=== PATIENT | male | born 1955 | race Caucasian/White ===

== ENCOUNTER → 2018-01-05 16:08 | Outpatient (CLI) | payer MEDICARE, MEDICAID, SELFPAY ==
--- NOTE | 2018-01-05 09:30 | MASS_PTH ---
PATIENT: REY MEAD LOC: [facility] U#:[id number] AGE/SX: 69/M ROOM: RE01/05/[address]: Dr. Andrey Wade MD : 1955 BED: DIS: SPEC #: [id number] RECD: 01/05/18 15:48 STATUS: SANDEEP RAFAELA #: [id number] MELVA: 01/05/18 09:[address]: Andrey Wade DEPT: SURGICAL PATHOLOGY RECD BY: García Chase ENTERED: 01/06/18 11:24 SP TYPE: Mass OTHR DR: Dr. Miguel Black DO Tissues: Soft palate Procedures: Special Stain Group I Surgery Specimen Level IV GMS Stain (control) HEADER OPERATION: Soft palate biopsy PRE-OP DIAGNOSIS: Soft palate mass TISSUE SUBMITTED: Soft palate mass, permanent path MICROSCOPIC DIAGNOSIS Soft palate mass, biopsy: Fragments of inflamed squamous papilloma with superficial bacterial colonization. Special stain for fungi is positive for organisms in the superficial epithelial layers (yeast and pseudohyphae) consistent with eusebio species; matched control is appropriate. SHAINA:ko 01/07/18 MICROSCOPIC DESCRIPTION Slides are reviewed. GROSS DESCRIPTION Received in fixative is one container labeled with the patient's name and designated soft palate biopsy. The specimen consists of multiple irregular fragments of light stein soft tissue that in aggregate measure 1 x 0.5 x 0.3 cm. The specimen is totally submitted in one cassette. / Khai 01/06/18 TC:1 CPT: 48649, 79018
== END ==
PROVIDERS: Family Provider Preventive Medicine Occupational Medicine; PCP Preventive Medicine Occupational Medicine; Referring Provider Otolaryngology; Visit Provider Otolaryngology
DX: K13.70 Unspecified lesions of oral mucosa (principal)
CPT/HCPCS: 88305; 88312

== ENCOUNTER → 2018-07-18 06:55 | Outpatient (CLI) | payer MEDICARE, MEDICAID, SELFPAY ==
[2018-07-18 07:51] LABS: Erythrocyte Sedimentation Rate 8 mm/hr (0-20)
[2018-07-18 13:56] LABS: PSA,Total - Annual Screen 0.28 ng/mL (0.00-4.00)
== END ==
PROVIDERS: Family Provider Preventive Medicine Occupational Medicine; PCP Preventive Medicine Occupational Medicine; Referring Provider Internal Medicine Pulmonary Disease; Visit Provider Internal Medicine Pulmonary Disease
DX: Z12.5 Encounter for screening for malignant neoplasm of prostate (principal); J44.9 Chronic obstructive pulmonary disease, unspecified
CPT/HCPCS: 36415; 84153; 85652; 86480; 87015; 87116; 87206; 87385; G0103

== ENCOUNTER → 2019-07-24 07:13 | Outpatient (CLI) | payer MEDICARE, SELFPAY ==
--- NOTE | 2019-07-31 09:00 | PET_ITS ---
EXAMINATION: FDG PET CT INDICATIONS: A 64-year-old male with history of pulmonary nodularity. COMPARISON EXAMINATION: CT of the chest report dated 07/06/19. INDEX LESION SIZE SUV INTERPRETATION Right lower anterior lung, linear 1.2 Quantitative criteria for viable neoplasm are not fulfilled, sequential radiologic investigation recommended TECHNIQUE: Following the intravenous administration of 16.43 mCi of F-18 deoxyglucose via the left antecubital fossa, multiplanar image acquisitions of the neck, chest, abdomen and pelvis to level of mid thigh, obtained at one hour post radiopharmaceutical administration contemporaneously interpreted with the current CT of the neck, chest, abdomen and pelvis to level of mid thigh, dated 07/31/[address] of the chest report dated 07/06/19 reveal: SERUM GLUCOSE LEVEL: 146 mg/dl. HEIGHT: 71 inches. WEIGHT: 218 lbs. FINDINGS: 1. Mild increased glucose metabolism is defined in the right lower anterior lung-right middle lobe, linear in presentation, generating a calculated maximum standard uptake value of 1.2. 2. Normal physiologic distribution of the radiopharmaceutical is apparent in the hepatic (2.6) and splenic parenchyma, both renal units, bladder and visualized intestinal tract. There is uniform distribution of the radiopharmaceutical concentration defined in the visualized cerebellar hemispheres and cerebral cortical structures. Diffuse intestinal tract activity is noted throughout all four quadrants of the abdominal-pelvic retroperitoneum and mesentery consistent with normal physiologic distribution of the radiopharmaceutical. Pertinent CT findings are as follows. CHEST: Emphysematous changes are noted in the bilateral upper lung zones. Additional parenchymal densities defined in the bilateral hemithorax reveal no evidence of quantitatively significant-discernible increased FDG distribution. There is evidence of prior median sternotomy. Atherosclerotic calcification is defined in the thoracic aorta without evidence of dilatation, aneurysm formation. Coronary arterial calcification is observed. Bilateral axillary, calcified and noncalcified mediastinal soft tissue densities are ametabolic. ABDOMEN AND PELVIS: Atherosclerotic calcification is defined in the abdominal aorta demonstrating a maximal axial diameter of 36.5 mm. Atherosclerotic calcification is noted in the abdominal-pelvic arterial vasculature. The maximal axial diameter of the left common iliac artery is 25.4 mm. There is fatty metamorphosis demonstrated in the hepatic parenchyma. Dystrophic calcification is manifest within the prostate gland. Fat-containing left inguinal hernia is noted. Right and left inguinal soft tissue densities are non-glucose avid. SKELETAL: Degenerative changes defined in the cervical, thoracic and lumbar spine demonstrate no evidence of glucose hypermetabolism. PET/PET/CT Tumor Base -Thigh Init IMPRESSION: 1. NEGATIVE EXAMINATION. There is no definitive quantitative scintigraphic evidence of viable neoplasm. 2. Subtle increased radiopharmaceutical concentration observed in the right lower anterior lung-right middle lobe does not fulfill quantitative criteria for viable neoplasm. 3. Metabolic and/or anatomic stability may be ensured in the right hemithorax pulmonary parenchymal abnormality with repeat FDG PET study and/or CT of the thorax in three-six months. (Xiu, Journal of Nuclear Medicine 45:88, P2004. Jenna, Seminars in Thoracic and Cardiovascular Surgery 14:292, 2002). Electronic Signature Gacría Moise D.O. Electronically Signed: García Moise DO at 8:42 EDT Tel , Service support ,
== END ==
PROVIDERS: PCP Preventive Medicine Occupational Medicine; Referring Provider Internal Medicine Pulmonary Disease; Visit Provider Internal Medicine Pulmonary Disease
DX: R91.1 Solitary pulmonary nodule (principal)
CPT/HCPCS: 78815; A9552

== ENCOUNTER → 2022-12-18 | Outpatient (CLI) | payer MEDICARE, MEDICAID, SELFPAY ==
--- NOTE | 2022-12-18 07:39 | CT_ITS ---
ACR Level 3 findings have been noted. An addendum which confirms receipt of the report will follow. INDICATION: Malignant neoplasm of bronchus , RIGHT PARTIAL LOBECTOMY EXAMINATION: CT CHEST WITHOUT CONTRAST - CT Chest W/O Contrast Injection TECHNIQUE: Helically acquired images were obtained of the chest. A radiation dose optimization technique was used for this scan. IV Contrast dosage and agent: None. COMPARISON: PET/CT 07/31/2019 FINDINGS: LUNGS, PLEURA AND LARGE AIRWAYS: Stable changes from partial right upper lobectomy. Interval development of 2.3 cm soft tissue mass upper lingula. 4 mm subpleural nodule posterior lingula. Stable fibrotic changes in the right middle lobe posteriorly. Patchy infiltrate superior segment right lower lobe laterally. Stable fibrotic changes left apex and left lower lobe posteriorly. No pleural effusions. THYROID: No thyroid lesions. HEART AND PERICARDIUM: Heart size is normal. No pericardial effusion. Coronary artery calcifications with changes from prior cardiac surgery. VESSELS: 3.8 cm ectasia ascending aorta. MEDIASTINUM AND DAVID: No mediastinal or hilar adenopathy. Esophagus is unremarkable. No hiatal hernia. UPPER ABDOMEN: No acute pathology. BONES: No suspicious lytic or blastic abnormality. CT/Chest without Contrast IMPRESSION: Interval development of 2.3 cm soft tissue mass in the lingula, highly suspicious for metastatic disease. 4 mm subpleural nodule in the posterior lingula also suspicious for metastasis. Patchy infiltrate in the right lower lobe laterally, infection versus lymphangitic carcinomatosis. The lingular mass is sufficient size for evaluation by PET CT or histologic sampling. Electronically Signed: Rolly Stephenson MD at 23:02 EDT ,
== END | disposition home or self-care (01) ==
PROVIDERS: PCP Preventive Medicine Occupational Medicine; Referring Provider Internal Medicine Pulmonary Disease; Visit Provider Internal Medicine Pulmonary Disease
DX: C34.90 Malignant neoplasm of unspecified part of unspecified bronchus or lung (principal)
CPT/HCPCS: 71250

== ENCOUNTER 2023-01-13 12:08 | Day surgery (SDC) | payer MEDICARE, MEDICAID, SELFPAY ==
[2023-01-13] VITALS (9 sets, daily range): BP systolic 105–154; BP diastolic 66–86; PULSE 70–94; RESP 18–20; TEMP 36.1–36.8; O2SAT 88–97; BMI 30.4
[2023-01-13] MEDS: Lactated Ringers 1,000 ML 15 ML IV (13:03)
[2023-01-13 13:29] LABS: Bedside Glucose 133 mg/dL (74-106)
[2023-01-13] MEDS: Phenylephrine 0.25% 15 ML NASAL.SRY 15 SPRAY NASAL (14:45)
[2023-01-13] MEDS: Lidocaine Jelly 2% 20 ML Syringe (URO-JET) 1 APPLIC (14:45)
[2023-01-13] MEDS: Lidocaine 2% (5ml sdv) 5 ML VIAL.MPF (15:00)
--- NOTE | 2023-01-13 15:22 | OP.BRONCH_ITS ---
Patient Name: John Farrell Procedure Date: 01/13/2023 1:59 PM Date of : 1955 Age: 67 Procedure: Bronchoscopy Indications: Left upper lobe nodule Providers: Miguel Hurd MD Complications: No immediate complications Procedure: Pre-Anesthesia Assessment: - A History and Physical has been performed. The patient's medications, allergies and sensitivities have been reviewed. After I obtained informed consent, the scope was passed under direct vision. Throughout the procedure, the patient's blood pressure, pulse, and oxygen saturations were monitored continuously. The bronchoscope was introduced through the right nostril and advanced to the tracheobronchial tree. The patient tolerated the procedure well. The procedure was accomplished without difficulty. Moderate Sedation: An independent trained observer was present and continuously monitored the patient. Findings: Transbronchial biopsies of a nodule were performed in the apical-posterior segment of the left upper lobe using forceps and sent for cell count, bacterial culture, viral smears & culture, and fungal & AFB analysis and cytology, AFB analysis & culture and fungal analysis. The procedure was guided by fluoroscopy. Transbronchial biopsy technique was selected because the sampling site was not visible endoscopically. Six biopsy passes were performed. Six biopsy samples were obtained. Fluoroscopy guided transbronchial brushings of a nodule were obtained in the apical-posterior segment of the left upper lobe with a cytology brush and sent for cell count, bacterial culture, viral smears & culture, and fungal & AFB analysis and cytology. One sample was obtained. Transbronchial brushing technique was selected because the sampling site was not visible endoscopically. The bronchoscope was advanced until wedged at the desired location for bronchoalveolar lavage. BAL was performed in the FRANCK apical posterior segments (B1 & B2) of the lung and sent for cell count, bacterial culture, viral smears & culture, and fungal & AFB analysis and cytology. 100 mL of fluid were instilled. 20 mL were returned. The return was bloody. There were no mucoid plugs in the return fluid. Impression: - Left upper lobe nodule - Transbronchial lung biopsies were performed. - Transbronchial brushings were obtained. - Bronchoalveolar lavage was performed. Recommendation: - Await test results. MD Miguel Melendez MD 01/13/2023 3:21:59 PM This report has been signed electronically. Number of Addenda: 0 Note Initiated On: 01/13/2023 1:59 PM
--- NOTE | 2023-01-13 15:27 | RAD_ITS ---
STUDY: X-RAY CHEST REASON FOR EXAM: Male, 67 years old. POST-BRONCHOSCOPY TECHNIQUE: Single AP portable view of the chest. COMPARISON: None. FINDINGS: EKG electrodes are seen. Prior right upper lobectomy. Increased markings in the right upper lobe. 2 cm nodule in the medial aspect of the left upper lobe. No evidence of pneumothorax. Sternal cerclage wires and vascular clips are present from a prior sternotomy and coronary artery bypass graft procedure (CABG). Normal mediastinum and dale. Normal visualized pulmonary arteries. There is atherosclerotic calcification of the aortic arch with tortuosity. Normal visualized thoracic spine. Deformity of the right fifth rib in keeping with prior surgery. There is no demonstrated abnormality of the visualized soft tissue structures of the upper abdomen. RAD/Chest 1 View (Portable) IMPRESSION: No evidence of pneumothorax. 2 cm nodule in the medial right upper lobe. Electronically Signed: Rao Thompson MD at 15:41 EDT ,
[2023-01-13 15:56] LABS: Cytology, Body Fluid / CSF SEE PATHOLOGY REPORT
[2023-01-13 17:42] LABS: Appearance/Body Fluid CLOUDY; Color/Body Fluid PINK; Red Cell Count/Body Fluid 1525 /mm3; Source- Body Fluid BRONCHIAL LAVAGE
[2023-01-13 17:43] LABS: Body Fluid QC Type(s) BF2Q; White Blood Count/Body Fluid 446 /mm3
--- NOTE | 2023-01-13 17:59 | SUR.PHASEII ---
1655: patients o2 at 3lnc was 95%, at 2l it was 93%, at 1L it was 90%, on room air it was 88%. reapplied o2 at 3l while paging Dr Hurd and speaking to Dr Lakhani.
[2023-01-13 20:15] LABS: Lymphocytes 3 %; Neutrophil (Segs) 64 %
[2023-01-13 20:17] LABS: Other Cell Type/BF 33 %
--- NOTE | 2023-01-14 | FLU_PTH ---
PATIENT: REY MEAD LOC: EN U#:[id number] AGE/SX: 67/M ROOM: RE01/13/[address]: Dr. Miguel Hurd MD : 1955 BED: DIS: 01/13/2023 SPEC #: [id number] RECD: 01/14/23 12:51 STATUS: SANDEEP RAFAELA #: [id number] MELVA: 01/14/23 00:[address]: Miguel Hurd V DEPT: CYTOLOGY RECD BY: Parris Banuelos ENTERED: 01/14/23 12:53 SP TYPE: Fluid OTHR DR: Dr. Miguel Black DO Tissues: A - Bronchus of left upper lobe B - Bronchus of left upper lobe C - Bronchus of left upper lobe Procedures: Special Stain Group II Special Stain Group I Surgery Specimen Level IV AFB Stain (control) GMS Stain (control) Cytospin Fluid Cytology Other HEADER OPERATION: Bronchoscopy (MAC) PRE-OP DIAGNOSIS: Solitary pulmonary nodule, COPD, malignant neoplasm of bronchus TISSUE SUBMITTED: A - Left upper lobe bronchioalveolar lavage fluid, B - Left upper lobe brush, C - Left upper lobe brush x3 slides DIAGNOSIS CYTOLOGY A. Bronchioalveolar lavage, left upper lobe (cytospin and cell block): Negative for malignant cells. Negative for acid-fast bacilli and fungal organisms. See comment. B. Left upper lobe of lung, brushings (cytospin and cell block): Negative for malignant cells. C. Left upper lobe brushings (smears): Negative for malignant cells. AM:ko 01/15/2023 COMMENT A. AFB and GMS stains with matched controls were used in the evaluation of this case. Please see corresponding surgical case ([id number]). CYTOLOGY STUDY Slides are reviewed. CYTOLOGY GROSS A - Received is 20 ml of red cloudy fluid labeled with the patient's name and and designated per the requisition as FRANCK BAL. Submitted for cytology preparation including cell block. B - Received is a metallic endoscopic cytobrush with adherent minute fragments of stein-red tissue brush in 2 ml of clear red fluid and labeled with the patient's name and and designated per the requisition as brush tip. The material is dislodged from the brush and submitted for cytology preparation including cell block. C - Received are three smears labeled with the patient's name and designated per the requisition as FRANCK brush. Submitted for staining. / ko 01/14/2023 TC:5 CPT: 31423 x2, 27423 x2 ,28803x7,18073
--- NOTE | 2023-01-14 | LUNG_PTH ---
PATIENT: REY MEAD LOC: [facility] U#:[id number] AGE/SX: 67/M ROOM: RE01/13/[address]: Dr. Miguel Hurd MD : 1955 BED: DIS: 01/13/2023 SPEC #: [id number] RECD: 01/14/23 12:50 STATUS: SANDEEP RAFAELA #: [id number] MELVA: 01/14/23 00:[address]: Miguel Hurd V DEPT: SURGICAL PATHOLOGY RECD BY: Parris Banuelos ENTERED: 01/14/23 12:51 SP TYPE: LUNG BX OTHR DR: Dr. Miguel Black DO Tissues: Lung, NOS Procedures: Elastin Stain (control) Trichrome (control) Special Stain Group II Surgery Specimen Level IV Iron Stain (control) HEADER OPERATION: Bronchoscopy (MAC) PRE-OP DIAGNOSIS: Solitary pulmonary nodule, COPD, malignant neoplasm of bronchus TISSUE SUBMITTED: Left upper lobe of lung MICROSCOPIC DIAGNOSIS Left upper lobe of lung, transbronchial biopsy: Minimal chronic inflammation. No evidence of malignancy. See comment. AM:ko 01/15/2023 COMMENT Please see corresponding cytology case [id number]). Trichrome, elastin and iron stains with matched controls were used in the evaluation of this case and show no evidence of fibrosis, vasculitis or intraparenchymal deposition of iron. Case has been reviewed in consultation with Dr. Maxwell who concurs with the above diagnosis. IDC:SJ MICROSCOPIC DESCRIPTION Slides are reviewed. GROSS DESCRIPTION Received in fixative is one container labeled with the patient's name and designated left upper lobe biopsy. The specimen consists of multiple irregular fragments of light to dark stein soft tissue that in aggregate measure 1.2 x 0.3 x <0.1 cm. The specimen is totally submitted in one cassette. / AM:ko 01/14/2023 TC:3 CPT: 57306, 66853 x3
[2023-01-14 13:57] LABS: Pathologist Comment/Body Fluid Reviewed
== END 2023-01-13 18:13 | disposition home or self-care (01) ==
LOC: EN 12:11 → AC 12:12
PROVIDERS: PCP Preventive Medicine Occupational Medicine; Referring Provider Preventive Medicine Occupational Medicine; Visit Provider Internal Medicine Pulmonary Disease
PROC: 0BJ08ZZ Inspection of Tracheobronchial Tree, Via Natural or Artificial Opening Endoscopic (ICD-10-PCS; CPT 31622; principal; 2023-01-13 13:15)
DX: R91.1 Solitary pulmonary nodule (principal); J44.9 Chronic obstructive pulmonary disease, unspecified; E11.9 Type 2 diabetes mellitus without complications; G47.33 Obstructive sleep apnea (adult) (pediatric); F41.9 Anxiety disorder, unspecified; F32.A Depression, unspecified; E78.00 Pure hypercholesterolemia, unspecified; I10 Essential (primary) hypertension; Z99.81 Dependence on supplemental oxygen; Z86.718 Personal history of other venous thrombosis and embolism; Z87.891 Personal history of nicotine dependence; Z79.899 Other long term (current) drug therapy; Z79.84 Long term (current) use of oral hypoglycemic drugs; Z79.82 Long term (current) use of aspirin
CPT/HCPCS: 31628; 32408; 31624; 71045; 76000; 82962; 87015; 87077; 87101; 87116; 87206; 88108; 88161; 88305; 88312; 88313; 89050; J7120; J2405

== ENCOUNTER → 2023-02-09 | Outpatient (CLI) | payer MEDICARE, MEDICAID, SELFPAY ==
--- NOTE | 2023-02-09 11:30 | PET_ITS ---
EXAMINATION: FDG PET/CT ? INDICATIONS: 67-year-old male with a history of pulmonary nodularity. ? COMPARISON EXAMINATION: FDG-PET CT study dated 07/31/2019. ? INDEX LESION SIZE SUV INTERPRETATION NEW Left upper lung field, left upper lobe 34.7 mm 6.1 Fulfills quantitative criteria for viable neoplasm, histopathologic analysis recommended ? NON-INDEX LESION ? ? ? Left lower lung field, left lower lobe ? 1.4 max Quantitative criteria for viable neoplasm are not fulfilled ? TECHNIQUE: Following the intravenous administration of 14.37 mCi of F-18 deoxyglucose via the right antecubital fossa, multiplanar image acquisitions of the head, neck, chest, abdomen and pelvis to the level of the midthigh, obtained at one-hour post radiopharmaceutical administration contemporaneously interpreted with the current CT of the chest, abdomen and pelvis dated 02/09/2023 and prior FDG-PET CT study dated 07/31/2019 via coregistration reveal: ? '' SERUM GLUCOSE LEVEL:? 199 mg/dL? HEIGHT:?? 69 inches WEIGHT:?? 217 pounds ? FINDINGS: ? HEAD/NECK:? There is no evidence of abnormal increased glucose metabolism in the pharyngeal mucosal space, parapharyngeal space, oropharynx, bilateral-lateral and anterior neck, hypopharynx and distribution of the larynx. ? The visualized portion of the cerebral cortical-subcortical structures demonstrate symmetric and preserved glucose metabolism. ? CHEST:? Facilitated FDG concentration is noted in the posteromedial aspect of the left upper lobe, generating a calculated standard uptake value of 6.1. The maximum axial diameter of the corresponding parenchymal density is 34.7 mm. Facilitated uptake is noted in the left mid posterior lung zone with a calculated standard uptake value of 1.4.? ? CT of the chest demonstrates the following anatomic characteristics: There is evidence of prior median sternotomy. Atherosclerotic calcification is defined in the thoracic aorta without evidence of dilatation, aneurysm formation. Coronary arterial calcification is observed. Right-left subcentimeter bilateral axillary soft tissue densities are ametabolic. Post-surgical change is defined in the region of the right thoracic perihilum. Emphysematous changes are defined in the upper lung haque bilaterally. ? ABDOMEN/PELVIS:? Normal physiologic distribution of the radiopharmaceutical is identified in the hepatic (4.5) and splenic parenchyma, both renal units, urinary bladder, and visualized intestinal tract. ? CT of the abdomen and pelvis is remarkable for the following: Atherosclerotic calcification is defined in the abdominal aorta without evidence of dilatation, aneurysm formation. Pelvic arterial calcification is observed. The maximum axial diameter of the left common iliac artery is 29.3 mm. A fat-containing left inguinal hernia is noted. Right and left inguinal soft tissue densities are ametabolic. ? SKELETAL: There is no evidence of quantitatively significant enhanced glucose metabolism on meticulous inspection of the appendicular and axial skeletal structures. ? Degenerative changes defined in the thoracic and lumbar spine demonstrate no evidence of increased glucose metabolism. There are no sclerotic, mixed sclerotic-lytic, or primarily lytic changes defined in the axial skeletal structures with evidence of increased FDG uptake. ? PET/PET/CT Tumor Base -Thigh Init IMPRESSION: 1. The increase in radiopharmaceutical concentration defined in the left mid lung field, posterior aspect of the left upper lobe, fulfills quantitative criteria for malignant transformation. (Syed et al, Journal of Nuclear Medicine, 32:1, 1991). 2. Increased labelled glucose uptake noted in the left lower lung field posteriorly does not fulfill quantitative criteria for viable neoplasm. 3. Anatomic stability may be ensured with repeat CT of the left lower hemithorax pulmonary parenchyma in 3-6 months if clinically indicated. (Jenna, Seminars in Thoracic and Cardiovascular surgery, 14:292, 2002). ? Electronically Signed: García Moise DO at 23:31 EST ,
== END | disposition home or self-care (01) ==
LOC: ONC 09:34
PROVIDERS: PCP Preventive Medicine Occupational Medicine; Referring Provider Internal Medicine Pulmonary Disease; Visit Provider Internal Medicine Pulmonary Disease
DX: R91.1 Solitary pulmonary nodule (principal)
CPT/HCPCS: 78815; A9552

== ENCOUNTER → 2023-10-13 | Outpatient (CLI) | payer MEDICARE, SELFPAY ==
[2023-10-13 09:22] LABS: ALB/GLOB Ratio 0.8 RATIO (0.9-2.4); AST(SGOT) 13 U/L (15-37); Alanine Aminotransfer ALT/SGPT 29 U/L (16-61); Albumin, Serum 3.7 g/dL (3.2-5.0); Alkaline Phosphatase 121 U/L (45-117); Anion Gap 8 (5-15); BUN 15 mg/dL (7-18); BUN/Creat Ratio 11.1 RATIO (10-20); Calcium,Total 9.7 mg/dL (8.5-10.1); Chloride 98 mmol/L (98-107); Cholesterol 120 mg/dL (200); Creatinine, Serum 1.35 mg/dL (0.70-1.30); EST Glomerular Filtration Rate 56 mL/min (>60); Est Glom Filt Rate - Afr Amer 68 mL/min (>60); Globulin 4.5 g/dL (2.2-4.2); Glucose 188 mg/dL (74-106); High Density Lipoprotein 44 mg/dL; Potassium 4.1 mmol/L (3.5-5.1); Protein, Total 8.2 g/dL (6.4-8.2); Sodium Level 133 mmol/L (136-145); Thyroid Stim Hormone (TSH) 1.19 uIU/mL (0.358-3.74); Triglycerides 184 mg/dL; Very Low Density Lipoprotein 37 mg/dL (5-40)
[2023-10-13 09:24] LABS: Creatinine, Urine (random) < 13.00 mg/dL (NO RANGE EST.); Microalbumin,Random Urine < 5.0 mg/L (NO RANGE EST.)
[2023-10-13 10:06] LABS: Vitamin D,25 Hydroxy 55.8 ng/mL
[2023-10-13 10:12] LABS: Hemoglobin A1c 6.6 % (3.8-5.6)
== END | disposition home or self-care (01) ==
PROVIDERS: PCP Preventive Medicine Occupational Medicine; Referring Provider Internal Medicine Endocrinology, Diabetes & Metabolism; Visit Provider Internal Medicine Endocrinology, Diabetes & Metabolism
DX: E11.65 Type 2 diabetes mellitus with hyperglycemia (principal); C34.11 Malignant neoplasm of upper lobe, right bronchus or lung; E11.42 Type 2 diabetes mellitus with diabetic polyneuropathy; E27.8 Other specified disorders of adrenal gland; E55.9 Vitamin D deficiency, unspecified
CPT/HCPCS: 36415; 80053; 80061; 82043; 82306; 82570; 83036; 84443

== ENCOUNTER → 2024-04-06 | Outpatient (CLI) | payer MEDICARE, SELFPAY ==
--- NOTE | 2024-04-06 06:51 | ECHOD_ITS ---
Reason For Study: CORONARY ARTERY DISEASE Procedure This was a 2D Doppler, Color Flow transthoracic echocardiogram. The study was technically difficult. Contrast injection was performed. Exam performed in department. Left Ventricle Normal LV size. Mild concentric left ventricular hypertrophy. Left ventricular systolic function is normal. The left ventricular ejection fraction is 60 %. Stage 1 diastolic dysfunction. No regional wall motion abnormalities noted. Right Ventricle Normal RV size. Normal systolic function. Atria Normal left atrium. Normal right atrium. Mitral Valve There is moderate mitral annular calcification. Mild (1+) eccentric mitral valve insufficiency. Tricuspid Valve Normal tricuspid valve. Aortic Valve Trisinus/trileaflet aortic valve. Pulmonic Valve Normal pulmonic valve. Great Vessels Normal aortic root. Pericardium/Pleural No pericardial effusion. Medication 22 gauge I.V. with prn adaptor inserted into left arm. Diluted definity 2.5ml given slow IV push to enhance endocardial definition. MMode/2D Measurements & Calculations LVIDd: 4.8 cm IVSd: 1.3 cm LVOT diam: 2.2 cm LVIDs: 3.2 cm LVPWd: 1.3 cm RVDd: 4.1 cm FS: 32.7 % LVOT area: 3.9 cm2 asc Aorta Diam: 3.4 cm LAV(MOD-bp): 30.0 ml LVAd ap4: 34.8 cm2 LAV(MOD-bp) Indexed: 14.0 ml/m2 LVLd ap4: 8.0 cm LAV(MOD-sp2): 23.5 ml EDV(MOD-sp4): 123.5 ml LAV(MOD-sp4): 34.7 ml EDV(sp4-el): 128.2 ml LVAs ap4: 21.6 cm2 LVLs ap4: 6.9 cm ESV(MOD-sp4): 55.2 ml ESV(sp4-el): 57.1 ml EF(MOD-sp4): 55.3 % EF(sp4-el): 55.5 % LVAd ap2: 36.8 cm2 SV(MOD-sp4): 68.2 ml SV(MOD-sp2): 71.3 ml LVLd ap2: 8.6 cm SI(MOD-sp4): 31.9 ml/m2 SI(MOD-sp2): 33.3 ml/m2 EDV(MOD-sp2): 125.7 ml EDV(sp2-el): 133.1 ml LVAs ap2: 20.9 cm2 LVLs ap2: 7.1 cm ESV(MOD-sp2): 54.4 ml ESV(sp2-el): 52.2 ml EF(MOD-sp2): 56.7 % SV(sp4-el): 71.1 ml Ao sinus diam: 3.[address] Junction: 2.8 cm LA dimension(2D): 3.8 cm LA A4 area: 13.3 cm2 RA A4 area: 11.8 cm2 TAPSE: 1.6 cm Time Measurements MV dec time: 0.19 sec Doppler Measurements & Calculations MV E max daniel: 89.8 cm/sec Lat Peak E' Daniel: 7.3 cm/sec Med Peak E' Daniel: 7.4 cm/sec MV A max daniel: 136.8 cm/sec E/E' lat: 12.3 E/E' med: 12.1 MV E/A: 0.66 MV V2 max: 148.8 cm/sec MV dec slope: 462.1 cm/sec2 Ao V2 max: 150.2 cm/sec MV max P.9 mmHg Ao max P.0 mmHg MV V2 mean: 101.6 cm/sec Ao V2 mean: 95.6 cm/sec MV mean P.4 mmHg Ao mean P.1 mmHg MV V2 VTI: 37.7 cm Ao V2 VTI: 28.1 cm MVA(VTI): 2.5 cm2 AV (velocity ratio): 0.87 LIZZ(I,D): 3.4 cm2 LIZZ(V,D): 3.2 cm2 LV V1 max: 122.6 cm/sec SV(LVOT): 94.7 ml PA V2 max: 104.3 cm/sec LV V1 max P.0 mmHg LV V1 mean P.2 mmHg LV V1 mean: 84.7 cm/sec LV V1 VTI: 24.4 cm ECHO/Echo Complete W/ Contrast Interpretation Summary Normal LV size. Left ventricular systolic function is normal. The left ventricular ejection fraction is 60 %. There is moderate mitral annular calcification. Mild (1+) eccentric mitral valve insufficiency. Mild concentric left ventricular hypertrophy. Stage 1 diastolic dysfunction. Ordering Physician: Peter Mohan Referring Physician: Peter Mohan MD Performed By: Denise Miller, CS
--- NOTE | 2024-04-06 17:21 | STRESSREP ---
Stress Test Report Pharmacologic myocardial perfusion stress test. 68-year-old male with a history of chest pain Resting EKG demonstrates sinus rhythm with a rate of 77 bpm. Resting blood pressure is 130/72 mmHg. 0.4 mg of regadenoson was infused per usual protocol followed by rapid intravenous saline flush injection. Continuous EKG monitoring was performed. The maximum heart rate was 93 bpm which was 60% of max impacted heart rate the maximum workload was 1 metabolic equivalent. At rest there were no ST or T wave changes noted to suggest ischemia and at peak infusion nonspecific ST changes were noted which did not meet the criteria for ischemia. No clinical angina is noted. The final blood pressure was 118/72 mmHg. Myocardial perfusion protocol. 15 mCi of technetium 99m sestamibi was injected at rest. 0.4 mg of regadenoson was infused per usual protocol. At peak infusion 45 mCi of technetium 99m sestamibi was injected stress images were obtained stress and rest images were reconstructed and compared in the short axis vertical long and horizontal long axis. Gated images were also obtained. Perfusion SPECT analysis: Review of the stress images demonstrate normal uptake of tracer noted in all areas of the myocardium. The resting images similar demonstrated normal uptake of tracer noted in all areas of the myocardium. No areas of reversibility are noted to suggest ischemia and no previous infarct is noted. Gated SPECT analysis: The gated ejection fraction is 59%. Conclusion: Normal pharmacologic myocardial perfusion stress test. Preserved ejection fraction.
== END | disposition home or self-care (01) ==
LOC: CVS 06:51
PROVIDERS: PCP Internal Medicine; Referring Provider Internal Medicine Cardiovascular Disease; Visit Provider Internal Medicine Cardiovascular Disease
DX: I25.10 Atherosclerotic heart disease of native coronary artery without angina pectoris (principal)
CPT/HCPCS: 78452; 93017; 93306; A9500; Q9957; A4216; C8929; J2785

== ENCOUNTER 2024-05-09 07:17 | Emergency (ER) | payer MEDICARE, MEDICAID, SELFPAY ==
[2024-05-09 07:18] VITALS: BP 148/72; PULSE 84; RESP 14; TEMP 36.8; O2SAT 99; BMI 31.8
--- NOTE | 2024-05-09 07:42 | CT_ITS ---
PROCEDURE: CTA CHST, ABD, PEL W AND/OR WO REASON FOR EXAM: Chest pain and back pain for 1 month. COPD. Prior lobectomy. TECHNIQUE: CTA imaging of the chest, abdomen and pelvis without and with intravenous contrast. 3D reconstructions. IV CONTRAST: 100 cc of Isovue 370. COMPARISON: None. FINDINGS: Heart: Prior CABG. Coronary artery calcification. Pulmonary Vessels: No large central filling defects. Contrast timing was optimized for evaluation of the aorta. Arch Vessels: Unremarkable. Thoracic Aorta: Atherosclerotic plaques. No aneurysm or dissection. Abdominal Aorta: There is evidence of aneurysmal dilatation of the distal abdominal aorta with the calcification and mural thrombus. This measures 3.2 cm in transverse dimension. Aneurysmal dilatation of the right common iliac artery measuring 2.6 cm. Mural thrombus is seen. Mesenteric Arteries: Normal. Renal Arteries: Normal. Iliac Arteries: Iliac arteries are normal in size with no significant plaque or stenosis. Other Findings: Surgical clips are seen in the right hilar regions. Prior right upper lobectomy. Consolidation in the posterior aspect of the left upper lobe abutting the left major fissure. The previously seen 2 cm nodule is not seen at this time most likely due to the consolidation. Mild increased markings at the left lung base. Fatty infiltration of the liver. There is a 1.7 cm x 2.5 cm nodular density in the left adrenal gland. This is not a typical adenoma. A metastatic disease should be ruled out. There are multilevel degenerative changes at the spine. Line distended urinary bladder. Prostatic enlargement with central calcification. Umbilical hernia containing fat. CT/CTA Chst, Abd, Pel W and/or WO IMPRESSION: No evidence of dissection. Infrarenal abdominal aortic aneurysm with a transverse dimension of 3.2 cm with mural thrombus. Dense consolidation in the left upper lobe as described. Underlying mass can n ot be excluded. Left adrenal mass.[id number] One or more dose reduction techniques were used (e.g., Automated exposure contr ol, adjustment of the mA and/or kV according to patient size, use of iterative reconstruction technique). Reading Location: [id number]
--- NOTE | 2024-05-09 07:42 | EKG12_ITS ---
Test Reason : CHEST PAIN X 1 MONTH Blood Pressure : */* mmHG Vent. Rate : 80 BPM Atrial Rate : 80 BPM P-R Int : 202 ms QRS Dur : 116 ms QT Int : 398 ms P-R-T Axes : 1 86 34 degrees QTcB Int : 459 ms Normal sinus rhythm Normal ECG Confirmed by Titus Loera ([id number]), editor at large ARIA CERVANTES ([id number]) on 05/10/2024 8:20:43 AM Referred By: Confirmed By: Titus Loera
--- NOTE | 2024-05-09 07:43 | EX.ED.DYSGE1 ---
HPI History of Present Illness Chief Complaint: Chest Pain Narrative Narrative: 69-year-old male past medical history of lung carcinoma, underwent radiation therapy, coronary artery disease, COPD, presents with chest and abdominal pain that has had for over a month. He relates history that he recently had an ultrasound of his heart and a stress test that were negative. This was performed by his help desk associate/cardiology provider 3 weeks ago. He states that sometimes he has sharp pain other times he has dull pain. It is on his left side causing him lack of sleep. Sometimes it is worse when he lays on his left side. He denies any fevers or chills, no cough, no nausea or vomiting. Last normal bowel movement was this morning and today. He states that there is pain in the left side of his abdomen and that he was told that he needs to go see a partition assembly machine operator as well. However, he has not scheduled an appointment. He has pain in the epigastrium of his abdomen and it radiates upwards sometimes. [facility] Medical History Vitamin D deficiency Left adrenal mass CAD (coronary artery disease) Blind Cancer Depression Anxiety Diabetes History of renal disease Prostate disease DVT (deep venous thrombosis) High cholesterol Easy bruising Umbilical hernia Neuropathy Injury of head and neck Syncope Former smoker On home oxygen therapy CPAP (continuous positive airway pressure) dependence COPD (chronic obstructive pulmonary disease) Shortness of breath on exertion History of edema Hypertension Hx of fracture of foot Hx of fracture of leg Home Medications ?Medication ?Instructions ?Recorded ?Last Taken ?Type albuterol sulfate 2.5 mg/3 mL 2.5 mg inhalation DAILY 01/08/23 01/13/23 History (0.083 %) solution for nebulization albuterol sulfate 90 mcg/actuation 2 puff inhalation PRN PRN 01/08/23 Unknown History aerosol inhaler shortness of breath or wheezing aspirin 81 mg tablet,delayed 81 mg PO DAILY 01/08/23 12/30/22 History release atorvastatin 20 mg tablet 20 mg PO QHS 01/08/23 Unknown History dapagliflozin propanediol 5 mg 5 mg PO DAILY 01/08/23 Unknown History tablet (Farxiga) fluticasone fur. 100 mcg-umeclid 1 inh inhalation DAILY 01/08/23 01/13/23 History 62.5 mcg-vilant 25 mcg inhalat.powder (Trelegy Ellipta) furosemide 40 mg tablet 40 mg PO DAILY 01/08/23 Unknown History paroxetine HCl 10 mg tablet 10 mg PO DAILY 01/08/23 Unknown History pregabalin 150 mg capsule 150 mg PO .QID 01/08/23 01/13/23 History roflumilast 250 mcg tablet 250 mcg PO DAILY 01/08/23 01/13/23 History semaglutide 14 mg tablet (Rybelsus) 14 mg PO DAILY 01/08/23 Unknown History tamsulosin 0.4 mg capsule 0.4 mg PO BID 01/08/23 01/13/23 History lorazepam 1 mg tablet 1 mg PO TID 03/22/24 Unknown History metformin 500 mg tablet,extended 1,500 mg PO QHS 03/22/24 Unknown History release 24hr (osmotic) metoprolol tartrate 50 mg tablet 50 mg PO BID 03/22/24 Unknown History Allergy/AdvReac Type Severity Reaction Status Date / Time No Known Allergies Allergy Verified 05/09/24 07:17 Family History Mother Cancer Heart disease Father Cancer Sister Cancer Heart disease Surgical History Hx of biopsy History of lobectomy of lung Hx of oral surgery History of open heart surgery (05/08/15) Social History Smoking Status: Former smoker alcohol intake: current alcohol intake frequency: a few times a month Alcohol type: beer substance use type: does not use ROS ROS ED ROS Narrative Constitutional: No fever, no chills. HEENT: No sore throat. No neck pain. No loss of vision. No rhinorrhea. Cardiovascular: Left-sided chest pain. No palpitations. No pedal edema. Respiratory: No cough, no shortness of breath. Abdominal: Epigastric to left-sided abdominal pain. No nausea. No vomiting. No problems with bowel movements. Genitourinary: No dysuria. No hematuria. Musculoskeletal: No myalgias. No arthralgias. Neurologic: No headaches. No dizziness. No lightheadedness. Skin: No rash. No change in color. Psychiatric: No depression. No anxiety. EXAM Physical Exam Const Vital Signs: 05/09/24 07:18 05/09/24 07:38 05/09/24 09:17 Temperature 98.2 F Temperature Source Temporal Pulse Rate 84 78 Respiratory Rate 14 18 Respiratory Effort Normal Blood Pressure 148/72 H 134/72 H Blood Pressure Mean 97 92 Pulse Ox 99 98 Oxygen Delivery Method Room Air Room Air 05/09/24 09:51 Temperature 98.7 F Temperature Source Pulse Rate 64 Respiratory Rate 18 Respiratory Effort Blood Pressure 132/78 H Blood Pressure Mean 96 Pulse Ox 99 Oxygen Delivery Method MDM MDM MDM Narrative Medical decision making narrative: Differential diagnosis includes but not limited to aortic dissection versus nonspecific chest pain versus pneumonia versus pneumothorax. He may have a pancreatitis versus diverticulitis given his left-sided abdominal pain. However, history and physical does not support this. Comprehensive workup was pursued. I will obtain a CTA of the chest abdomen and pelvis to rule out any acute pathology. I have low suspicion for ACS as he has had the same pain for a month and has had a outpatient cardiac workup. I do not feel he needs a troponin. EKG was obtained and interpreted by myself independently as normal sinus rhythm at 80 bpm without ectopy or acute ST changes. No STEMI. I reviewed his outpatient echocardiogram, and he has an EF of 60%. Hence, I doubt CHF. I reviewed his laboratory work and he has normal white count of 8.7 with hemoglobin stable 11.4, hematocrit 35.9, platelet count normal at 177. CMP is grossly unremarkable except for AST low at 5. Lipase low at 41 so I doubt pancreatitis. I reviewed the CTA report from the radiologist and there is no evidence of an aortic dissection. He does have an infrarenal AAA that measures 3.2 cm with mural thrombus he was also noted to have a iliac artery aneurysm with mural thrombus. He will be referred to vascular surgery after discussion with Dr. Cuellar. Upon repeat examination, he is resting comfortably, but complains of epigastric pain. He was told that he was informed by his primary care provider that he should follow-up with gastroenterology. I will refer him to Dr. Gallagher with gastroenterology here. Additionally, he was referred to Dr. Culelar with vascular surgery regarding his AAA. He can also follow-up with his help desk associate, but once again he has been having pain for the last month and recently had a outpatient workup with cardiology 3 weeks ago. He will be given a GI cocktail. At this point in time, I feel he be discharged to follow-up. I discussed the patient with the INSULATION BOARD HEAD SAW OPERATOR for vascular who will also follow-up with him as an outpatient. Return instructions to the emergency department were reviewed. Disposition is discharged home in stable condition. History & Record Review Discussion w/independent historian: Patient Additional record(s) reviewed:: Prior outpatient record and Prior labs Lab Data Attestation: I reviewed the patient's lab results. Labs: Laboratory Results - last 24 hr 05/09/24 07:45 WBC 8.7 RBC 4.05 L Hgb 11.4 L Hct 35.9 L MCV 88.6 MCH 28.1 MCHC 31.8 L RDW Std Deviation 53.7 H RDW Coeff of Jaquan 16.6 H Plt Count 177 MPV 9.1 Immature Gran % (Auto) 1.100 H Neut % (Auto) 75.4 H Lymph % (Auto) 14.3 L Knott % (Auto) 7.6 Eos % (Auto) 1.1 Baso % (Auto) 0.5 Absolute Neuts (auto) 6.6 Absolute Lymphs (auto) 1.25 Nucleated RBC % 0 Sodium 136 Potassium 4.0 Chloride 104 Carbon Dioxide 27.0 Anion Gap 5 BUN 16 Creatinine 1.09 Estim Creat Clear Calc 74.77 Est GFR (MDRD) Af Amer 87 Est GFR (MDRD) Non-Af 72 BUN/Creatinine Ratio 14.7 Glucose 158 H Calcium 9.1 Total Bilirubin 0.20 AST 5 L ALT 16 Alkaline Phosphatase 90 Total Protein 7.7 Albumin 3.0 L Globulin 4.7 H Albumin/Globulin Ratio 0.6 L Lipase 41 L Radiography Diagnostic Testing: Clinical Impression(s) from Imaging Studies Chest/Abdomen/Pelvis CTA 05/09/24 07:42 IMPRESSION: No evidence of dissection. Infrarenal abdominal aortic aneurysm with a transverse dimension of 3.2 cm with mural thrombus. Dense consolidation in the left upper lobe as described. Underlying mass can not be excluded. Left adrenal mass.[id number] One or more dose reduction techniques were used (e.g., Automated exposure control, adjustment of the mA and/or kV according to patient size, use of iterative reconstruction technique). Reading Location: [facility] Management Discussion w/another healthcare provider: Federal Appellate Clerk (Vascular surgery) Discharge Plan Triage Chief Complaint: Chest Pain ED Provider: Aden Stahl Dx/Rx/DC Orders Clinical Impression: Abdominal pain, AAA (abdominal aortic aneurysm), Iliac artery aneurysm Instructions: ED Abdominal Pain Unkn Cause Fem, ED Pain, Acute, Uncertain Cause Prescriptions: No Action furosemide 40 mg tablet 40 mg PO DAILY paroxetine HCl 10 mg tablet 10 mg PO DAILY pregabalin 150 mg capsule 150 mg PO .QID roflumilast 250 mcg tablet 250 mcg PO DAILY Rybelsus 14 mg tablet 14 mg PO DAILY tamsulosin 0.4 mg capsule 0.4 mg PO BID Patient Comments: TAKE 2 CAPSULES BY MOUTH EVERY DAY WITH A MEAL albuterol sulfate 2.5 mg /3 mL (0.083 %) solution for nebulization 2.5 mg inhalation DAILY albuterol sulfate 90 mcg/actuation HFA aerosol inhaler 2 puff INHALATION PRN PRN (Reason: shortness of breath or wheezing) aspirin 81 mg tablet,delayed release (DR/EC) 81 mg PO DAILY atorvastatin 20 mg tablet 20 mg PO QHS Farxiga 5 mg tablet 5 mg PO DAILY Trelegy Ellipta 100-62.5-25 mcg blister with device 1 inh INHALATION DAILY metformin 500 mg tablet extended release 24hr 1,500 mg PO QHS Patient Comments: TAKE 2 tabs in the AM and One tab in PM Rx Instructions: TAKE 2 tabs in the AM and One tab in PM metoprolol tartrate 50 mg tablet 50 mg PO BID lorazepam 1 mg tablet 1 mg PO TID Primary Care Provider: Desiree Saleh Referrals: Desiree Saleh MD [Primary Care Provider] - Naresh Cuellar MD [Med Staff - Active Staff] - As soon as possible FriendWild DO [Med Staff - Active Staff] - As soon as possible Activity Restrictions/Additional Instructions: Follow-up with gastroenterology and vascular surgery. You need to follow-up with your primary care provider as well regarding your month-long pain. Return with new or worsening symptoms. Print Language: Gabonese Disposition Disposition: Home, Self Care Discharge Date/Time: 05/09/24 10:23
[2024-05-09 07:55] LABS: Absolute Lymphocyte Count 1.25 X10^3/uL (0.83-4.51); Absolute Neutrophil Count 6.6 X10^3/uL (2.0-7.7); Basophil# 0.04 X10^3/uL; Basophil% 0.5 % (0-1); Eosinophils% 1.1 % (0-5); Hematocrit 35.9 % (40-54); Hemoglobin 11.4 g/dL (13.0-16.5); Lymphocyte # 1.25 X10^3/ul (0.83-4.51); Lymphocyte % 14.3 % (19-41); Mean Corp Hgb Conc 31.8 g/dL (32-36); Mean Corpuscular Hgb 28.1 pg (27.0-32.0); Mean Corpuscular Volume 88.6 fL (80-94); Mean Platelet Vol. 9.1 fl (6.2-12.0); Monocyte# 0.66 X10^3/uL; Monocyte% 7.6 % (0-10); NRBC Flagged by Analyzer 0 % (0-5); Neutrophil # 6.58 X10^3/uL (2.7-7.7); Neutrophil % 75.4 % (47-70); Platelet Count 177 K/mm3 (150-450); RBC Distribution Width CV 16.6 % (11.6-14.6); RBC Distribution Width SD 53.7 fl (35.1-43.9); Red Blood Count 4.05 M/mm3 (4.6-6.2); White Blood Count 8.7 K/mm3 (4.4-11.0)
[2024-05-09 08:19] LABS: ALB/GLOB Ratio 0.6 RATIO (0.9-2.4); AST(SGOT) 5 U/L (15-37); Alanine Aminotransfer ALT/SGPT 16 U/L (16-61); Alkaline Phosphatase 90 U/L (45-117); Anion Gap 5 (5-15); BUN 16 mg/dL (7-18); BUN/Creat Ratio 14.7 RATIO (10-20); Calcium,Total 9.1 mg/dL (8.5-10.1); Chloride 104 mmol/L (98-107); Creatinine, Serum 1.09 mg/dL (0.70-1.30); EST Glomerular Filtration Rate 72 mL/min (>60); Est Glom Filt Rate - Afr Amer 87 mL/min (>60); Estimated Creatinine Clearance 74.77 ml/min; Globulin 4.7 g/dL (2.2-4.2); Glucose 158 mg/dL (74-106); Lipase 41 U/L (73-393); Protein, Total 7.7 g/dL (6.4-8.2); Sodium Level 136 mmol/L (136-145)
[2024-05-09 09:17] VITALS: BP 134/72; PULSE 78; RESP 18; O2SAT 98
[2024-05-09] MEDS: Mag Hydrox/Al Hydrox/Simeth 30 ML UDC PO (09:40)
[2024-05-09] MEDS: Lidocaine 2% Viscous15 ML UDC 15 ML PO (09:40)
[2024-05-09 09:51] VITALS: BP 132/78; PULSE 64; RESP 18; TEMP 37.1; O2SAT 99
== END 2024-05-09 10:23 | disposition home or self-care (01) ==
PROVIDERS: Emergency Provider Emergency Medicine; PCP Internal Medicine; Visit Provider Emergency Medicine
DX: I71.43 Infrarenal abdominal aortic aneurysm, without rupture (principal); J44.9 Chronic obstructive pulmonary disease, unspecified; E11.9 Type 2 diabetes mellitus without complications; I72.3 Aneurysm of iliac artery; R10.9 Unspecified abdominal pain; I25.10 Atherosclerotic heart disease of native coronary artery without angina pectoris; Z86.718 Personal history of other venous thrombosis and embolism; Z87.891 Personal history of nicotine dependence
CPT/HCPCS: 71275; 74174; 80053; 83690; 85025; 93005; 99284; Q9967; A4216

== ENCOUNTER → 2024-05-12 | Outpatient (CLI) | payer MEDICARE, SELFPAY ==
--- NOTE | 2024-05-12 08:00 | RAD_ITS ---
PROCEDURE: DOUBLE-CONTRAST UPPER GASTROINTESTINAL SERIES REASON FOR EXAM: LEFT UPPER QUADRANT PAIN. TECHNIQUE: FLUOROSCOPIC TIME: 71 SECONDS DOSE: 18.8 MGY EFFERVESCENT GRANULES: Yes. CONTRAST: High-density barium. COMPARISON: NO RELEVANT PRIOR. FINDINGS: Hypopharynx: Unremarkable. Esophagus: No constricting or obstructing lesions. No evidence of hiatal hernia. No ulcerations. Stomach: No ulcers or neoplasms. Unremarkable mucosa. Duodenum: No C-loop widening. No other abnormalities. Proximal small bowel: Unremarkable. I Other findings: Wedged shaped airspace consolidation in the left upper lobe. Airspace consolidation noted in the right lower lobe. Old healed right rib fractures. Sternotomy wires are noted from prior open heart surgery. RAD/Upper GI Dual Contrast IMPRESSION: 1. Normal double-contrast upper gastrointestinal series. 2. Areas of consolidation in the left upper lobe and right lower lobe. Can no t exclude pneumonia. Reading Location: [place] [id number]
== END | disposition home or self-care (01) ==
LOC: RAD 07:45
PROVIDERS: PCP Internal Medicine; Referring Provider Nurse Practitioner Acute Care; Visit Provider Nurse Practitioner Acute Care
DX: R10.12 Left upper quadrant pain (principal); R07.9 Chest pain, unspecified; M54.9 Dorsalgia, unspecified
CPT/HCPCS: 74246

== ENCOUNTER 2024-05-31 10:55 | Day surgery (SDC) | payer MEDICARE, MEDICAID, SELFPAY ==
--- NOTE | 2024-05-23 11:17 | PAT.ANE_ITS ---
Pre-Assessment Diagnosis/Proposed Procedure Planned Operative Procedure(s): EGD Anesthesia History Anesthesia History - internal controls consultant: Anesthesia History - internal controls consultant Hx Hospitalization No 05/23/24 09:55 Any Problems With Anesthesia No 05/23/24 09:55 Cholinesterase deficiency No 05/23/24 09:55 You/Your Family Experience No 05/23/24 09:55 fever (hyperthermia) with Relationship Recent Exposure to Contagious No 01/13/23 12:51 Disease Does patient have nerve No 05/23/24 09:55 stimulator Patient instructed to have device shut off --Does patient have Pacemaker or ICD? When Was Last Pacemaker Check QUESTION #4 FULL TEXT: You/Your Family Experience fever (hyperthermia) with Anesthesia Last Oral Intake Last Oral intake: Last Oral Intake NPO since Meds taken in AM with sips of water? Meds patient instructed to take am of surgery PONV PONV - internal controls consultant: PONV - internal controls consultant Female No 05/23/24 09:55 HX of Motion Sickness No 05/23/24 09:55 HX of N/V After Surgery No 05/23/24 09:55 Non-Smoker Yes 05/23/24 09:55 Duration of Surgery greater No 05/23/24 09:55 than 60 minutes Number of Risk Factors 1 05/23/24 09:55 PONV Score Low Risk 05/23/24 09:55 Height & Weight Height & Weight: Anesthesia: Height & Weight Height 5 ft 9 in 05/10/24 07:50 Respiratory Assessment Respiratory Assessment - internal controls consultant: Respiratory Tract Infection Hx - internal controls consultant Hx Respiratory Tract Infection No 05/23/24 09:55 STOP Sleep Apnea STOP Sleep Apnea - internal controls consultant: STOP Sleep Apnea - internal controls consultant Hx Hypertension Yes: CONTROLLED WITH MED 05/23/24 09:55 Hx Sleep Apnea Yes: W/ 3L O2 05/23/24 09:55 CPAP Yes 05/23/24 09:55 BIPAP No 05/23/24 09:55 Do you snore loudly (louder than talking or can be heard Do you often feel tired/ fatigued/ sleepy during daytime? Has anyone observed you stop breathing during sleep? STOP Results Positive 05/23/24 09:55 QUESTION #5 FULL TEXT : Do you snore loudly (louder than talking or can be heard through closed doors)? Tobacco Use History Tobacco Use History - internal controls consultant: Tobacco Use History - internal controls consultant Tobacco Use Smoking Status Former smoker 05/23/24 09:55 Hx Tobacco Use No 05/23/24 09:55 Years Smoking Packs Smoked per Day Smoking Cessation Date was Yes - quit smoking within 15 05/23/24 09:55 within the last 15 years years Hx Smoking Cessation Date 03/15/15 05/23/24 09:55 Hx Smoking Cessation No 05/23/24 09:55 Counseling Hematologic Medial History Hematologic Hx - internal controls consultant: Hematologic Medical Hx - information systems planner Hx of Blood Transfusion No 05/23/24 09:55 Hx of Transfusion in last 3 No 05/23/24 09:55 Months Date of Last Transfusion (if within last 3 months) Ever experience any problems No 05/23/24 09:55 with transfusion(s)? Specify any problems Hx of Preganancy in last 3 N/A 05/23/24 09:55 Months Nurse Filling Out Transfusion VCHRISTIN 05/23/24 09:55 & Questions: Date: 05/23/24 05/23/24 09:55 Time: 09:56 05/23/24 09:55 Patient unable to answer at this time (ie. confused, unrespo /Reproduction History /Reproductive History - internal controls consultant: /Reproductive Hx- internal controls consultant Hx Now No 05/23/24 09:55 Gestational Age (in weeks): EDC: Hx Hx Para Hx Section SAB No 05/23/24 09:55 COUNTS INCLUDE 234 BEDS AT THE [facility] Medical History (Updated 05/23/24 @ 09:54 by Nicky Balderrama) Alcohol use Excessive bleeding History of echocardiogram History of stress test Cardiology follow-up encounter Chest pain Vitamin D deficiency Left adrenal mass CAD (coronary artery disease) Blind Cancer Depression Anxiety Diabetes History of renal disease Prostate disease DVT (deep venous thrombosis) High cholesterol Easy bruising Umbilical hernia Neuropathy Injury of head and neck Syncope Former smoker On home oxygen therapy CPAP (continuous positive airway pressure) dependence COPD (chronic obstructive pulmonary disease) Shortness of breath on exertion History of edema Hypertension Hx of fracture of foot Hx of fracture of leg Home Medications ?Medication ?Instructions ?Recorded ?Last Taken ?Type albuterol sulfate 2.5 mg/3 mL 2.5 mg inhalation DAILY 01/08/23 01/13/23 History (0.083 %) solution for nebulization albuterol sulfate 90 mcg/actuation 2 puff inhalation P RN PRN 01/08/23 Unknown History aerosol inhaler shortness of breath or wheez ing aspirin 81 mg tablet,delayed 81 mg PO DAILY 01/08/23 0 05/17/24 History release atorvastatin 20 mg tablet 20 mg PO QHS 01/08/23 Unknow n History dapagliflozin propanediol 5 mg 5 mg PO DAILY 01/08/23 05/16/24 History tablet (Farxiga) fluticasone fur. 100 mcg-umeclid 1 inh inhalation SOLEDAD Y 01/08/23 01/13/23 History 62.5 mcg-vilant 25 mcg inhalat.powder (Trelegy Ellipta) furosemide 40 mg tablet 40 mg PO DAILY 01/08/23 Unkn own History paroxetine HCl 10 mg tablet 10 mg PO DAILY 01/08/23 Un known History pregabalin 150 mg capsule 150 mg PO .QID 01/08/23 1104/06 History roflumilast 250 mcg tablet 250 mcg PO DAILY 01/08/23 1 03/15/22 History semaglutide 14 mg tablet (Rybelsus) 14 mg PO DAILY 05/23/24 History tamsulosin 0.4 mg capsule 0.4 mg PO BID 01/08/2301/13 History lorazepam 1 mg tablet 1 mg PO TID 03/22/24 Unknown History metformin 500 mg tablet,extended 1,500 mg PO QHS 03/22 Unknown History release 24hr (osmotic) metoprolol tartrate 50 mg tablet 50 mg PO BID 03/22/24 Unknown History gabapentin 300 mg capsule 300 mg PO QHS 05/10/24 Unkno wn History pantoprazole 40 mg tablet,delayed 40 mg PO QDAY #90 ta bs 05/10/24 Unknown Rx release Allergy/AdvReac Type Severity Reaction Status Date / Time No Known Allergies Allergy Verified 05/23/24 09:34 Family History Mother Cancer Heart disease Father Cancer Sister Cancer Heart disease Surgical History (Updated 05/23/24 @ 09:54 by Nicky Balderrama) History of bronchoscopy Hx of biopsy History of lobectomy of lung Hx of oral surgery History of open heart surgery (05/08/15) Social History Smoking Status: Former smoker alcohol intake: current alcohol intake frequency: a few times a month Alcohol type: beer substance use type: does not use Audit: Pertinent Findings Pertinent Findings EKG Perinent findings: Normal sinus rhythm Normal ECG Echo (EF%) pertinent findings: Left ventricular systolic function is normal. The left ventricular ejection fraction is 60 %. There is moderate mitral annular calcification. Mild (1+) eccentric mitral valve insufficiency. Mild concentric left ventricular hypertrophy. Stage 1 diastolic dysfunction. Additional pertinent findings: Infrarenal abdominal aortic aneurysm with a transverse dimension of 3.2 cm with mural thrombus. Recommendation Anesthesia Recommendation Anesthesia recommendation: F/U recommended (Awaiting internal medicine note for optimization, note is still listed as draft. Echo and EKG are okay. )
--- NOTE | 2024-05-24 16:49 | PAT.ANESEVAL ---
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 When Was Last Pacemaker Check QUESTION #4 FULL TEXT: You/Your Family Experience fever (hyperthermia) with Anesthesia Last Oral Intake Last Oral intake: Last Oral Intake NPO since Meds taken in AM with sips of water? Meds patient instructed to take am of surgery PONV PONV - construction project coordinator: PONV - construction project coordinator Female No 05/23/24 09:55 HX of Motion Sickness No 05/23/24 09:55 HX of N/V After Surgery No 05/23/24 09:55 Non-Smoker Yes 05/23/24 09:55 Duration of Surgery greater No 05/23/24 09:55 than 60 minutes Number of Risk Factors 1 05/23/24 09:55 PONV Score Low Risk 05/23/24 09:55 Height & Weight Height & Weight: Anesthesia: Height & Weight Height 5 ft 9 in 05/10/24 07:50 Respiratory Assessment Respiratory Assessment - construction project coordinator: Respiratory Tract Infection Hx - construction project coordinator Hx Respiratory Tract Infection No 05/23/24 09:55 STOP Sleep Apnea STOP Sleep Apnea - construction project coordinator: STOP Sleep Apnea - construction project coordinator Hx Hypertension Yes: CONTROLLED WITH MED 05/23/24 09:55 Hx Sleep Apnea Yes: W/ 3L O2 05/23/24 09:55 CPAP Yes 05/23/24 09:55 BIPAP No 05/23/24 09:55 Do you snore loudly (louder than talking or can be heard Do you often feel tired/ fatigued/ sleepy during daytime? Has anyone observed you stop breathing during sleep? STOP Results Positive 05/23/24 09:55 QUESTION #5 FULL TEXT : Do you snore loudly (louder than talking or can be heard through closed doors)? 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 Specify any problems Hx of Preganancy in last 3 N/A 05/23/24 09:55 Months Nurse Filling Out Transfusion VCHRISTIN 05/23/24 09:55 & Questions: Date: 05/23/24 05/23/24 09:55 Time: 09:56 05/23/24 09:55 Patient unable to answer at this time (ie. confused, unrespo /Reproduction History /Reproductive History - construction project coordinator: /Reproductive Hx- construction project coordinator Hx Now No 05/23/24 09:55 Gestational Age (in weeks): EDC: Hx Hx Para Hx Section SAB No 05/23/24 09:55 [facility] Medical History (Updated 05/23/24 @ 09:54 by Nicky Balderrama) Alcohol use Excessive bleeding History of echocardiogram History of stress test Cardiology follow-up encounter Chest pain Vitamin D deficiency Left adrenal mass CAD (coronary artery disease) Blind Cancer Depression Anxiety Diabetes History of renal disease Prostate disease DVT (deep venous thrombosis) High cholesterol Easy bruising Umbilical hernia Neuropathy Injury of head and neck Syncope Former smoker On home oxygen therapy CPAP (continuous positive airway pressure) dependence COPD (chronic obstructive pulmonary disease) Shortness of breath on exertion History of edema Hypertension Hx of fracture of foot Hx of fracture of leg Home Medications ?Medication ?Instructions ?Recorded ?Last Taken ?Type albuterol sulfate 2.5 mg/3 mL 2.5 mg inhalation DAILY 01/08/23 01/13/23 History (0.083 %) solution for nebulization albuterol sulfate 90 mcg/actuation 2 puff inhalation PRN PRN 01/08/23 Unknown History aerosol inhaler shortness of breath or wheezing aspirin 81 mg tablet,delayed 81 mg PO DAILY 01/08/23 05/17/24 History release atorvastatin 20 mg tablet 20 mg PO QHS 01/08/23 Unknown History dapagliflozin propanediol 5 mg 5 mg PO DAILY 01/08/23 05/16/24 History tablet (Farxiga) fluticasone fur. 100 mcg-umeclid 1 inh inhalation DAILY 01/08/23 01/13/23 History 62.5 mcg-vilant 25 mcg inhalat.powder (Trelegy Ellipta) furosemide 40 mg tablet 40 mg PO DAILY 01/08/23 Unknown History paroxetine HCl 10 mg tablet 10 mg PO DAILY 01/08/23 Unknown History pregabalin 150 mg capsule 150 mg PO .QID 01/08/23 01/13/23 History roflumilast 250 mcg tablet 250 mcg PO DAILY 01/08/23 01/13/23 History semaglutide 14 mg tablet (Rybelsus) 14 mg PO DAILY 01/08/23 05/23/24 History tamsulosin 0.4 mg capsule 0.4 mg PO BID 01/08/23 01/13/23 History lorazepam 1 mg tablet 1 mg PO TID 03/22/24 Unknown History metformin 500 mg tablet,extended 1,500 mg PO QHS 03/22/24 Unknown History release 24hr (osmotic) metoprolol tartrate 50 mg tablet 50 mg PO BID 03/22/24 Unknown History gabapentin 300 mg capsule 300 mg PO QHS 05/10/24 Unknown History pantoprazole 40 mg tablet,delayed 40 mg PO QDAY #90 tabs 05/10/24 Unknown Rx release hydrocodone-acetaminophen 5-325mg 1 tab PO Q4-6H PRN pain 7 days #56 05/24/24 Unknown Rx 5mg-325mg tabs Allergy/AdvReac Type Severity Reaction Status Date / Time No Known Allergies Allergy Verified 05/23/24 09:34 Family History Mother Cancer Heart disease Father Cancer Sister Cancer Heart disease Surgical History (Updated 05/23/24 @ 09:54 by Nicky Balderrama) History of bronchoscopy Hx of biopsy History of lobectomy of lung Hx of oral surgery History of open heart surgery (05/08/15) Social History Smoking Status: Former smoker alcohol intake: current alcohol intake frequency: a few times a month Alcohol type: beer substance use type: does not use Audit: Pertinent Findings HISTORY of Pertinent Findings History of Pertinent Findings: EKG Pertinent Findings EKG Perinent findings Normal sinus rhythm 05/23/24 11:19 Normal ECG Echo Pertinent Findings Echo (EF%) pertinent findings Left ventricular systolic 05/23/24 11:19 function is normal. The left ventricular ejection fraction is 60 %. There is moderate mitral annular calcification. Mild (1+) eccentric mitral valve insufficiency. Mild concentric left ventricular hypertrophy. Stage 1 diastolic dysfunction. 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 Recommendation Anesthesia Recommendation Anesthesia recommendation: OPTIMIZED for anesthesia
[2024-05-31] VITALS (13 sets, daily range): BP systolic 92–161; BP diastolic 65–101; PULSE 94–105; RESP 16–24; TEMP 36–36.4; O2SAT 94–100; BMI 30.6
--- NOTE | 2024-05-31 11:44 | PRE.ANES_ITS ---
ASA Classification* ASA Classification ASA Classification: 3 Assessment & Plan Anesthesia* Anesthesia Assessment Anesthesia Assessment: Discussed sedation and/or anesthesia options, risks, benefits, and alternatives with patient/parents/legal guardian/POA. Questions invited. The patient/parents/legal guardian/POA seems to understand and agrees to proceed with anesthesia plan. Reviewed the physical assessment, medical history, allergy history and patient home medications list prior to surgery/procedure/anesthetic and documented any changes. Performed airway and anesthesia risk assessments. Anesthesia Type Anesthesia Type: MAC History Source History Obtained from:: Patient and Chart Anesthesia Focused Assessment* Temperature: 97.5 F Pulse Rate: 105 Blood Pressure: 161/92 Respiratory Rate: 24 Pulse Ox: 97 Airway Assessment Mouth opens: >3 cm Mallampati Score: I Comment: GOT PRE PROCEDURE BREATHING TREATMENT (ALBUTEROL) Focused Labs Anesthesia Preop lab: CBC WBC 8.7 K/mm3 (4.4-11.0) 05/09/24 07:45 05/09/24 RBC 4.05 M/mm3 (4.6-6.2) L 05/09/24 07:45 05/09/24 Hgb 11.4 g/dL (13.0-16.5) L 05/09/24 07:45 5 Hct 35.9 % (40-54) L 05/09/24 07:45 05/09/24 Plt Count 177 K/mm3 (150-450) 05/09/24 07:45 05/09/24 CHEMISTRY Potassium 4.0 mmol/L (3.5-5.1) 05/09/24 07:45 05/09/24 Sodium 136 mmol/L (136-145) 05/09/24 07:45 05/09/24 BUN 16 mg/dL (7-18) 05/09/24 07:45 05/09/24 Creatinine 1.09 mg/dL (0.70-1.30) 05/09/24 07:45 05/09/24 Glucose 158 mg/dL (74-106) H 05/09/24 07:45 05/09/24 POC Glucose 133 mg/dL (74-106) H 01/13/23 13:02 01/13/23 TSH 1.19 uIU/mL (0.358-3.74) 10/13/23 08:11 COAG Pre-Assessment Diagnosis/Proposed Procedure Planned Operative Procedure(s): EGD with possible biopsy Anesthesia History Anesthesia History - professional system administrator: Anesthesia History - professional system administrator Hx Hospitalization No 05/23/24 09:55 Any Problems With Anesthesia No 05/23/24 09:55 Cholinesterase deficiency No 05/23/24 09:55 You/Your Family Experience No 05/23/24 09:55 fever (hyperthermia) with Relationship Recent Exposure to Contagious No 05/31/24 11:23 Disease Does patient have nerve No 05/23/24 09:55 stimulator Patient instructed to have device shut off --Does patient have Pacemaker No 05/31/24 11:23 or ICD? When Was Last Pacemaker Check QUESTION #4 FULL TEXT: You/Your Family Experience fever (hyperthermia) with Anesthesia Any additional information?: No Last Oral Intake Last Oral intake: Last Oral Intake NPO since 00:00 05/31/24 11:23 Meds taken in AM with sips of No 05/31/24 11:23 water? 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 - professional system administrator: PONV - professional system administrator Female No 05/23/24 09:55 HX of Motion Sickness No 05/23/24 09:55 HX of N/V After Surgery No 05/23/24 09:55 Non-Smoker Yes 05/23/24 09:55 Duration of Surgery greater No 05/23/24 09:55 than 60 minutes Number of Risk Factors 1 05/23/24 09:55 PONV Score Low Risk 05/23/24 09:55 Any additional information?: No Height & Weight Height & Weight: Anesthesia: Height & Weight Height 5 ft 9 in 05/31/24 11:23 Weight: 94 kg 05/31/24 11:23 Body Mass Index (BMI) 30.6 05/31/24 11:23 Respiratory Assessment Respiratory Assessment - professional system administrator: Respiratory Tract Infection Hx - professional system administrator Hx Respiratory Tract Infection No 05/23/24 09:55 Any additional information?: No STOP Sleep Apnea STOP Sleep Apnea - professional system administrator: STOP Sleep Apnea - professional system administrator Hx Hypertension Yes: CONTROLLED WITH MED 05/23/24 09:55 Hx Sleep Apnea Yes: W/ 3L O2 05/23/24 09:55 CPAP Yes 05/23/24 09:55 BIPAP No 05/23/24 09:55 Do you snore loudly (louder than talking or can be heard Do you often feel tired/ fatigued/ sleepy during daytime? Has anyone observed you stop breathing during sleep? STOP Results Positive 05/23/24 09:55 QUESTION #5 FULL TEXT : Do you snore loudly (louder than talking or can be heard through closed doors)? Any additional information?: No Tobacco Use History Tobacco Use History - professional system administrator: Tobacco Use History - professional system administrator Tobacco Use Smoking Status Former smoker 05/23/24 09:55 Hx Tobacco Use No 05/23/24 09:55 Years Smoking Packs Smoked per Day Smoking Cessation Date was Yes - quit smoking within 15 05/23/24 09:55 within the last 15 years years Hx Smoking Cessation Date 03/15/15 05/23/24 09:55 Hx Smoking Cessation No 05/23/24 09:55 Counseling Any additional information?: No Hematologic Medial History Hematologic Hx - professional system administrator: 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 Specify any problems Hx of Preganancy in last 3 N/A 05/23/24 09:55 Months Nurse Filling Out Transfusion VCHRISTIN 05/23/24 09:55 & Questions: Date: 05/23/24 05/23/24 09:55 Time: 09:56 05/23/24 09:55 Patient unable to answer at this time (ie. confused, unrespo Any additional information?: No /Reproduction History /Reproductive History - professional system administrator: /Reproductive Hx- professional system administrator Hx Now No 05/23/24 09:55 Gestational Age (in weeks): EDC: Hx Hx Para Hx Section SAB No 05/23/24 09:55 Any additional information?: No Active Medications Active Medications: Current Medications Generic Name Dose Route Start Last Admin Trade Name Freq PRN Reason Stop Dose Admin Albuterol Sulfate 2.5 mg 05/31/24 11:40 Albuterol 2.5 Mg/3 Ml Vial.Neb. INHALATION 05/31/24 11:41 X1 [facility] Medical History Alcohol use Excessive bleeding History of echocardiogram History of stress test Cardiology follow-up encounter Chest pain Vitamin D deficiency Left adrenal mass CAD (coronary artery disease) Blind Cancer Depression Anxiety Diabetes History of renal disease Prostate disease DVT (deep venous thrombosis) High cholesterol Easy bruising Umbilical hernia Neuropathy Injury of head and neck Syncope Former smoker On home oxygen therapy CPAP (continuous positive airway pressure) dependence COPD (chronic obstructive pulmonary disease) Shortness of breath on exertion History of edema Hypertension Hx of fracture of foot Hx of fracture of leg Home Medications ?Medication ?Instructions ?Recorded ?Last Taken ?Type albuterol sulfate 2.5 mg/3 mL 2.5 mg inhalation DAILY 01/08/23 05/30/24 History (0.083 %) solution for nebulization albuterol sulfate 90 mcg/actuation 2 puff inhalation P RN PRN 01/08/23 05/30/24 H istory aerosol inhaler shortness of breath or wheez ing aspirin 81 mg tablet,delayed 81 mg PO DAILY 01/08/23 0 05/23/24 History release atorvastatin 20 mg tablet 20 mg PO QHS 01/08/23 History dapagliflozin propanediol 5 mg 5 mg PO DAILY 01/08/23 05/23/24 History tablet (Farxiga) fluticasone fur. 100 mcg-umeclid 1 inh inhalation SOLEDAD Y 01/08/23 05/31/24 Histor y 62.5 mcg-vilant 25 mcg inhalat.powder (Trelegy Ellipta) furosemide 40 mg tablet 40 mg PO DAILY 01/08/2305/13 History paroxetine HCl 10 mg tablet 10 mg PO DAILY 01/08/23 History pregabalin 150 mg capsule 150 mg PO .QID 01/08/2305/13 History roflumilast 250 mcg tablet 250 mcg PO DAILY 01/08/23 0 05/30/24 History semaglutide 14 mg tablet (Rybelsus) 14 mg PO DAILY 05/23/24 History tamsulosin 0.4 mg capsule 0.4 mg PO BID 01/08/2305/30 History lorazepam 1 mg tablet 1 mg PO TID 03/22/24 5 History metformin 500 mg tablet,extended 1,500 mg PO QHS 03/2205/30/24 History release 24hr (osmotic) metoprolol tartrate 50 mg tablet 50 mg PO BID 03/22/24 05/30/24 History gabapentin 300 mg capsule 300 mg PO QHS 05/10/2405/30 History pantoprazole 40 mg tablet,delayed 40 mg PO QDAY #90 ta bs 05/10/24 05/30/24 Rx release hydrocodone-acetaminophen 5-325mg 1 tab PO Q6H PRN PRN pain 05/31/24 Unknown History 5mg-325mg Allergy/AdvReac Type Severity Reaction Status Date / Time No Known Allergies Allergy Verified 05/31/24 11:18 Family History Mother Cancer Heart disease Father Cancer Sister Cancer Heart disease Surgical History History of bronchoscopy Hx of biopsy History of lobectomy of lung Hx of oral surgery History of open heart surgery (05/08/15) Social History Smoking Status: Former smoker alcohol intake: current alcohol intake frequency: a few times a month Alcohol type: beer substance use type: does not use Review of Systems (Anesthesia) ROS Narrative System reviewed and no additional complaints, except as documented. Physical Exam Narrative Patient having 8-8 1/2 out of 10 abdominal pain.
[2024-05-31 11:46] LABS: Bedside Glucose 222 mg/dL (74-106)
[2024-05-31] MEDS: Albuterol 2.5 MG/3 ML VIAL.NEB. INHALATION (11:47)
--- NOTE | 2024-05-31 11:55 | PCM.HP.STD ---
HPI - General General Date of Admission: 05/31/24 Date of Service: 05/31/24 Chief Complaint: abdominal pain HPI Narrative REY MEAD, is a 69 M who presents for the evaluation of his abdominal pain. 69y/o male presents for consult post ED eval on 05/09/2024 with complaints of chest and abdominal pain x1 month. PMH is significant for lung CA s/p right upper lobectomy and radiation, CAD, COPD and reports a recent ECHO and stress test were unremarkable. Labs reveal HGB 11.4, normal transaminases and renal function. CTA 05/09/2024 Fatty infiltration of the liver. There is a 1.7 cm x 2.5 cm nodular density in the left adrenal gland. This is not a typical adenoma. A metastatic disease should be ruled out. Infrarenal abdominal aortic aneurysm with a transverse dimension of 3.2 cm with mural thrombus. Dense consolidation in the left upper lobe as described. COLOGUARD negative 3 years ago he thinks EtOH: maybe 6 beers on the weekend Caffeine: 2 cups coffee a day - reports his lungs are to weak for surgery - 3L at HS via CPAP - Oncology on [address] - reports his Oncology doctors started him on Gabapentin LUQ pain x1 month - this is a aching, chronic dull pain with intermittent episodes of sharp pain - he reports taking OTC pain reliever - does not know if this is NSAID or Acetaminophen - no improvement - now on Gabapentin 300mg at HS - denies any improvement in pain - pain worsens with movement - pain does not change with PO intake or BM - denies any change in bowel habits - denies any weight loss - denies any rash or skin lesions - denies any N/V - denies any HB - c/o esophageal dysphagia - intermittent for quite a while with solid foods - he has never had shingles - reports he was vaccinated - no pain with palpation of LUQ - denies any falls or injury - reports he is not sleeping at night due to the pain - pain presently is 11/22 [facility] Medical History Alcohol use Excessive bleeding History of echocardiogram History of stress test Cardiology follow-up encounter Chest pain Vitamin D deficiency Left adrenal mass CAD (coronary artery disease) Blind Cancer Depression Anxiety Diabetes History of renal disease Prostate disease DVT (deep venous thrombosis) High cholesterol Easy bruising Umbilical hernia Neuropathy Injury of head and neck Syncope Former smoker On home oxygen therapy CPAP (continuous positive airway pressure) dependence COPD (chronic obstructive pulmonary disease) Shortness of breath on exertion History of edema Hypertension Hx of fracture of foot Hx of fracture of leg Home Medications ?Medication ?Instructions ?Recorded ?Last Taken ?Type albuterol sulfate 2.5 mg/3 mL 2.5 mg inhalation DAILY 01/08/23 05/30/24 History (0.083 %) solution for nebulization albuterol sulfate 90 mcg/actuation 2 puff inhalation PRN PRN 01/08/23 05/30/24 History aerosol inhaler shortness of breath or wheezing aspirin 81 mg tablet,delayed 81 mg PO DAILY 01/08/23 05/23/24 History release atorvastatin 20 mg tablet 20 mg PO QHS 01/08/23 05/30/24 History dapagliflozin propanediol 5 mg 5 mg PO DAILY 01/08/23 05/23/24 History tablet (Farxiga) fluticasone fur. 100 mcg-umeclid 1 inh inhalation DAILY 01/08/23 05/31/24 History 62.5 mcg-vilant 25 mcg inhalat.powder (Trelegy Ellipta) furosemide 40 mg tablet 40 mg PO DAILY 01/08/23 05/30/24 History paroxetine HCl 10 mg tablet 10 mg PO DAILY 01/08/23 05/30/24 History pregabalin 150 mg capsule 150 mg PO .QID 01/08/23 05/30/24 History roflumilast 250 mcg tablet 250 mcg PO DAILY 01/08/23 05/30/24 History semaglutide 14 mg tablet (Rybelsus) 14 mg PO DAILY 01/08/23 05/23/24 History tamsulosin 0.4 mg capsule 0.4 mg PO BID 01/08/23 05/30/24 History lorazepam 1 mg tablet 1 mg PO TID 03/22/24 05/30/24 History metformin 500 mg tablet,extended 1,500 mg PO QHS 03/22/24 05/30/24 History release 24hr (osmotic) metoprolol tartrate 50 mg tablet 50 mg PO BID 03/22/24 05/30/24 History gabapentin 300 mg capsule 300 mg PO QHS 05/10/24 05/30/24 History pantoprazole 40 mg tablet,delayed 40 mg PO QDAY #90 tabs 05/10/24 05/30/24 Rx release hydrocodone-acetaminophen 5-325mg 1 tab PO Q6H PRN PRN pain 05/31/24 Unknown History 5mg-325mg Allergy/AdvReac Type Severity Reaction Status Date / Time No Known Allergies Allergy Verified 05/31/24 11:18 Family History Mother Cancer Heart disease Father Cancer Sister Cancer Heart disease Surgical History History of bronchoscopy Hx of biopsy History of lobectomy of lung Hx of oral surgery History of open heart surgery (05/08/15) Social History Smoking Status: Former smoker alcohol intake: current alcohol intake frequency: a few times a month Alcohol type: beer substance use type: does not use ROS Constitutional Constitutional: Denies fatigue, fever(s), poor appetite, weight gain or weight loss Gastrointestinal Gastrointestinal: Denies belching, bloating, change in bowel habits, change in stool character, chewing difficulty, coffee ground emesis, constipation, cramping, diarrhea, dyspepsia, dysphagia, early satiety, excessive flatus, fecal incontinence, heartburn, hematemesis, hematochezia, hemorrhoids, loose stools, melena, nausea, odynophagia, rectal bleeding, tenesmus, vomiting or weight changes Vital Signs Vital Signs Vital Signs: 05/31/24 11:23 05/31/24 11:23 05/31/24 11:47 Temperature 97.5 F L Temperature Source Temporal Pulse Rate 105 H 94 Respiratory Rate 24 H 16 Respiratory Pattern Normal Normal Blood Pressure 161/92 H Blood Pressure Mean 115 Blood Pressure Source Monitor Blood Pressure Position Semi-Fowlers Blood Pressure Location Right Arm Pulse Ox 97 Oxygen Delivery Method Room Air 05/31/24 11:54 Temperature 97.5 F L Temperature Source Pulse Rate 105 H Respiratory Rate 24 H Respiratory Pattern Blood Pressure 161/92 H Blood Pressure Mean Blood Pressure Source Blood Pressure Position Blood Pressure Location Pulse Ox 97 Oxygen Delivery Method Weight Weight: 207 lb 3.752 oz Body Mass Index (BMI) 30.6 Physical Exam Const alert, oriented x3, no apparent distress and healthy appearing General Appearance: cooperative GI normal to inspection, nondistended, normoactive bowel sounds, soft to palpation, non-tender and non-distended Percussion: normal to percussion Rectal Exam: deferred Results Lab / Micro Data Labs: Laboratory Results - last 24 hr 05/31/24 11:22: POC Glucose 222 H Assessment & Plan Assessment/Plan (1) LUQ pain: PLAN: Assessment and Plan Assessment and Plan (1) LUQ pain: Status: Acute (2) Left-sided chest pain: Status: Acute (3) Back pain: Status: Acute Orders: Orders Upper GI Dual Contrast Today M54.9 - Dorsalgia, unspecified, R07.9 - Chest pain, unspecified, R10.12 - Left upper quadrant pain Medications: New pantoprazole take 30 minutes before breakfast every morning 40 mg PO QDAY 90 tabs 1RF hydrocodone-acetaminophen 5-325 mg 1 TAB PO Q6H PRN 12 tabs 0RF pain 3 days M54.9 - Dorsalgia, unspecified, R07.9 - Chest pain, unspecified, R10.12 - Left upper quadrant pain Plan 69y/o male presents for consult post ED evaluation on 05/09/2024 with complaints of chest and abdominal pain x1 month. PMH is significant for lung CA s/p right upper lobectomy 2016 and radiation left lung July 2023, CAD, CABG, COPD and reports a recent ECHO and stress test were unremarkable. Labs reveal HGB 11.4, normal transaminases and renal function. CTA completed in ED yesterday revealed a 1.7 x 2.5cm left adrenal lesion. He denies any prior knowledge of this lesion. LUQ/left chest pain is a constant dull aching pain with intermittent sharp pain. Pain worsens with movement and prevents him from sleeping at night. He denies any pain with PO intake or change in bowel habits. Denies any falls or injury. He is visibly uncomfortable during today's visit with RR 20-24 and leaning to the right side of chair while sitting, reporting a pain level of 9/10. Exam reveals LUQ and left chest wall discomfort over lower ribs. He denies any N/V, heartburn or weight loss. He does endorse a long history of intermittent esophageal dysphagia with solid foods. I have started him on a daily PPI and scheduled him for an UGI. I have also provided him a 3d RX of [place] and recommended he follow-up with oncology regarding CT findings. He reports he has a visit with Dr. Hurd in the next week or so, he would require pulmonary clearance prior to proceeding with EGD. Patient Instructions: 1. Start pantoprazole 40mg every morning, prescription sent to your pharmacy 2. Schedule Upper GI [phone] Gutierrez office and make them aware of new left adrenal lesion on CTA completed 05/09/2024 4. [place] prescription sent to pharmacy for pain Plan Details Follow Up: 1 Month
--- NOTE | 2024-05-31 12:15 | EGD_PTH ---
PATIENT: REY MEAD LOC: [facility] U#:[id number] AGE/SX: 69/M ROOM: RE05/31/[address]: Dr. Wild Gallagher DO : 1955 BED: DIS: 05/31/2024 SPEC #: [id number] RECD: 06/01/24 10:30 STATUS: SANDEEP REJacek #: [id number] MELVA: 05/31/24 12:[address]: Wild Gallagher DEPT: SURGICAL PATHOLOGY RECD BY: Mauri Sheridan ENTERED: 06/01/24 10:30 SP TYPE: EGD BIOPSY SAMANTA DR: Dr. Desiree Saleh MD Tissues: A - Esophagus, NOS B - COLON BIOPSY Procedures: Surgery Specimen Level IV HEADER OPERATION: EGD with biopsy PRE-OP DIAGNOSIS: Abdominal pain TISSUE SUBMITTED: A- Random esophagus biopsy, B- Duodenal polyp MICROSCOPIC DIAGNOSIS A. Random esophagus, biopsy:Squamous epitheliumYeast forms present among loose squamous cells B. Duodenal polyp, biopsy:Small intestinal mucosa with slight hyperplastic featuresLemuel matson MD, 06/09/2024 MICROSCOPIC DESCRIPTION Slides are reviewed. GROSS DESCRIPTION A. Received in fixative is one container labeled with the patient's name and designated Random esophagus biopsy. The specimen consists of multiple irregular fragments of light stein soft tissue that in aggregate measure 1 x 0.6 x 0.1 cm. The specimen is totally submitted in one cassette. B. Received in fixative is one container labeled with the patient's name and designated Duodenal polyp. The specimen consists of one irregular fragment of light stein soft tissue that measures 0.3 x 0.3 x 0.2 cm. The specimen is totally submitted in one cassette. MS/mr 06/01/2024 CPT:36183h8 , TC:5
--- NOTE | 2024-05-31 12:25 | PCM.POST.ANE ---
Anesthesia: Postop Eval I Current Vital Signs Temperature: 974 F Pulse Rate: 96 Blood Pressure: 105/65 Respiratory Rate: 22 Pulse Ox: 100 Oxygen Delivery Method: Nasal Cannula Oxygen Flow Rate (L/min): 6 Assessment Airway patent: Yes Spontaneous unlabored respirations: Yes Mental status: Awake nausea: No Vomiting: No Anesthesia Complication: No Fluid Hydration Crystalloid volume administer (ml): 2 Total IV fluid infused: 2 Progress Note Anesthesia document: Postop Eval 1 completed: Yes
--- NOTE | 2024-05-31 12:52 | OP.EGD_ITS ---
Patient Name: John Farrell Procedure Date: 05/31/2024 12:25 PM Date of : 1955 Age: 69 Procedure: Upper GI endoscopy Indications: Epigastric abdominal pain, Abdominal pain in the left upper quadrant Providers: Wild Gallagher DO Medicines: Monitored Anesthesia Care Patient Profile: This is a 69 year old male. Refer to note in patient chart for documentation of history and physical. Patient has symptoms of chronic left lower quadrant abdominal pain and chronic epigastric abdominal pain. Complications: No immediate complications. Procedure: Pre-Anesthesia Assessment: - Prior to the procedure, a History and Physical was performed, and patient medications and allergies were reviewed. The patient is competent. The risks and benefits of the procedure and the sedation options and risks were discussed with the patient. All questions were answered and informed consent was obtained. Patient identification and proposed procedure were verified by the physician in the pre-procedure area. Mental Status Examination: alert and oriented. Airway Examination: normal oropharyngeal airway and neck mobility. Respiratory Examination: clear to auscultation. CV Examination: normal. ASA Grade Assessment: II - A patient with mild systemic disease. After reviewing the risks and benefits, the patient was deemed in satisfactory condition to undergo the procedure. The anesthesia plan was to use monitored anesthesia care (MAC). Immediately prior to administration of medications, the patient was re-assessed for adequacy to receive sedatives. The heart rate, respiratory rate, oxygen saturations, blood pressure, adequacy of pulmonary ventilation, and response to care were monitored throughout the procedure. The physical status of the patient was re-assessed after the procedure. After obtaining informed consent, the endoscope was passed under direct vision. Throughout the procedure, the patient's blood pressure, pulse, and oxygen saturations were monitored continuously. The gastroscope was introduced through the mouth, and advanced to the third part of the duodenum. Small bowel enteroscopy was deemed necessary. The upper GI endoscopy was accomplished without difficulty. The patient tolerated the procedure well. Scope In: 12:37:16 PM Scope Out: 12:41:41 PM Total Procedure Duration Time 0 hours 4 minutes 25 seconds Findings: Diffuse, yellow plaques were found in the entire esophagus. Biopsies were taken with a cold forceps for histology. Verification of patient identification for the specimen was done. Estimated blood loss was minimal. No gross lesions were noted in the stomach. A small hiatal hernia was present. A single 7 mm sessile polyp with no bleeding was found in the duodenal bulb. The polyp was removed with a cold biopsy forceps. Resection and retrieval were complete. Verification of patient identification for the specimen was done. Estimated blood loss was minimal. Impression: - Esophageal plaques were found, suspicious for candidiasis. Biopsied. - No gross lesions in the stomach. - Small hiatal hernia. - A single duodenal polyp. Resected and retrieved. Recommendation: - Discharge patient to home. - Resume previous diet. - Continue present medications. - Await pathology results. Procedure Code(s): --- Professional --- 77624, Small intestinal endoscopy, enteroscopy beyond second portion of duodenum, not including ileum; with biopsy, single or multiple CPT copyright 2021 [employer]. All rights reserved. The codes documented in this report are preliminary and upon hospital coder review may be revised to meet current compliance requirements. Wild Gallagher DO 05/31/2024 12:51:21 PM This report has been signed electronically. Number of Addenda: 0 Note Initiated On: 05/31/2024 12:25 PM
--- NOTE | 2024-05-31 12:52 | OP.CCLET_ITS ---
05/31/2024 Desiree Saleh Md Re : Upper GI endoscopy procedure for John Farrell Dear Therese This procedure was performed on Friday, May 31, 2024. My impressions and recommendations are as follows: Impressions : - Esophageal plaques were found, suspicious for candidiasis. Biopsied. - No gross lesions in the stomach. - Small hiatal hernia. - A single duodenal polyp. Resected and retrieved. Recommendations : - Discharge patient to home. - Resume previous diet. - Continue present medications. - Await pathology results. My findings are described in the full procedure note, which is enclosed. If I can be of further assistance, please feel free to contact me at . Sincerely, Wild Gallagher, 05/31/2024 12:51:21 PM This report has been signed electronically.
--- NOTE | 2024-05-31 14:19 | POSTOPAN2_ITS ---
Anesthesia Postop Eval I Sum Postop Eval Completion status Anesthesia document: Postop Eval 1 completed: Yes Anesthesia Postop Eval I Summary Anesthesia Postop Eval I Summary: Anesthesia Postop Eval I: Assessment Summary Airway patent Yes 05/31/24 12:56 [email or web address] Spontaneous unlabored Yes 05/31/24 12:56 [email or web address] respirations Mental status Awake 05/31/24 12:56 [email or web address] nausea No 05/31/24 12:56 [email or web address] Vomiting No 05/31/24 12:56 [email or web address] Anesthesia Postop Eval I: Fluid Summary Crystalloid volume administer 2 05/31/24 12:56 [email or web address] (ml) Colloids volume administered ( ml) Blood Product volume administered (ml) Total IV fluid infused 2 05/31/24 12:56 [email or web address] Anesthesia Postop Eval I: Summary Notes Anesthesia Complication No 05/31/24 12:56 [email or web address] Anesthesia Complication Comment: Post-operative progress note Anesthesia: Postop Eval II Evaluation Mental status: Awake Pain Level: 7 (was baseline abdominal pain patient had been having for past two weeks. ) nausea: No Vomiting: No
--- NOTE | 2024-05-31 14:19 | PCM.POSTANE2 ---
Anesthesia Postop Eval I Sum Postop Eval Completion status Anesthesia document: Postop Eval 1 completed: Yes Anesthesia Postop Eval I Summary Anesthesia Postop Eval I Summary: Anesthesia Postop Eval I: Assessment Summary Airway patent Yes 05/31/24 12:56 ANGLE SHEAR SET UP [email or web address] Spontaneous unlabored Yes 05/31/24 12:56 ANGLE SHEAR SET UP OPERATOR.[email or web address] respirations Mental status Awake 05/31/24 12:56 ANGLE SHEAR SET UP [email or web address] nausea No 05/31/24 12:56 ANGLE SHEAR SET UP [email or web address] Vomiting No 05/31/24 12:56 ANGLE SHEAR SET UP [email or web address] Anesthesia Postop Eval I: Fluid Summary Crystalloid volume administer 2 05/31/24 12:56 ANGLE SHEAR SET UP [email or web address] (ml) Colloids volume administered ( ml) Blood Product volume administered (ml) Total IV fluid infused 2 05/31/24 12:56 ANGLE SHEAR SET UP [email or web address] Anesthesia Postop Eval I: Summary Notes Anesthesia Complication No 05/31/24 12:56 ANGLE SHEAR SET UP [email or web address] Anesthesia Complication Comment: Post-operative progress note Anesthesia: Postop Eval II Evaluation Mental status: Awake Pain Level: 7 (was baseline abdominal pain patient had been having for past two weeks. ) nausea: No Vomiting: No
== END 2024-05-31 14:37 | disposition home or self-care (01) ==
LOC: EN 10:56 → AC 10:58
PROVIDERS: PCP Internal Medicine; Referring Provider Internal Medicine; Visit Provider Internal Medicine Gastroenterology
PROC: 0DJ08ZZ Inspection of Upper Intestinal Tract, Via Natural or Artificial Opening Endoscopic (ICD-10-PCS; CPT 43235; principal; 2024-05-31 12:10)
DX: K44.9 Diaphragmatic hernia without obstruction or gangrene (principal); J44.9 Chronic obstructive pulmonary disease, unspecified; E11.9 Type 2 diabetes mellitus without complications; I25.10 Atherosclerotic heart disease of native coronary artery without angina pectoris; K31.7 Polyp of stomach and duodenum; I10 Essential (primary) hypertension; E78.00 Pure hypercholesterolemia, unspecified; Z79.82 Long term (current) use of aspirin; Z79.84 Long term (current) use of oral hypoglycemic drugs; Z79.51 Long term (current) use of inhaled steroids; Z87.891 Personal history of nicotine dependence; Z79.899 Other long term (current) drug therapy; Z86.718 Personal history of other venous thrombosis and embolism
CPT/HCPCS: 43239; 82962; 88305; 94640; A4216; J2405

== ENCOUNTER → 2024-06-06 | Outpatient (CLI) | payer MEDICARE, MEDICAID, SELFPAY ==
[2024-06-06 12:00] LABS: ALB/GLOB Ratio 0.4 RATIO (0.9-2.4); AST(SGOT) 12 U/L (<=37); Alanine Aminotransfer ALT/SGPT 14 U/L (<=46); Albumin, Serum 2.4 g/dL (3.4-4.8); Alkaline Phosphatase 61 U/L (40-129); Anion Gap 16 (5-15); BUN 16 mg/dL (4-19); BUN/Creat Ratio 15.7 RATIO (10-20); Calcium,Total 8.2 mg/dL (7.6-11.0); Carbon Dioxide 20.7 mmol/L (21.0-32.0); Chloride 94 mmol/L (98-108); Cholesterol 81 mg/dL (<=200); Creatinine, Serum 1.02 mg/dL (0.70-1.20); EST Glomerular Filtration Rate 80 (>60); Globulin 5.6 g/dL (2.2-4.2); Glucose 238 mg/dL (70-99); High Density Lipoprotein 44 mg/dL; Low Density Lipoprotein Calc. 10 mg/dL; Potassium 4.2 mmol/L (3.3-5.1); Sodium Level 131 mmol/L (133-145); Thyroid Stim Hormone (TSH) 0.767 uIU/mL (0.300-4.200); Triglycerides 132 mg/dL; Very Low Density Lipoprotein 26 mg/dL (5-40); Vitamin D,25 Hydroxy 42.4 ng/mL (30-100); cholesterol:hdl ratio screen 1.82
[2024-06-06 15:27] LABS: Microalbumin,Random Urine < 12.0 mg/L (NO RANGE EST.); Microalbumin:Creatinine Ratio UNABLE TO CALCULATE mg/g CRE
[2024-06-06 15:30] LABS: Hemoglobin A1c 8.4 % (<=5.6)
== END | disposition home or self-care (01) ==
LOC: LAB 09:05
PROVIDERS: PCP Internal Medicine; Referring Provider Internal Medicine Endocrinology, Diabetes & Metabolism; Visit Provider Internal Medicine Endocrinology, Diabetes & Metabolism
DX: E11.65 Type 2 diabetes mellitus with hyperglycemia (principal); C34.11 Malignant neoplasm of upper lobe, right bronchus or lung; E11.42 Type 2 diabetes mellitus with diabetic polyneuropathy; E27.8 Other specified disorders of adrenal gland; E55.9 Vitamin D deficiency, unspecified
CPT/HCPCS: 36415; 80053; 80061; 82043; 82306; 82570; 83036; 84439; 84443

== ENCOUNTER 2024-06-09 12:19 | Emergency (ER) | payer MEDICARE, MEDICAID, SELFPAY ==
[2024-06-09 12:20] VITALS: BP 109/71; PULSE 92; RESP 15; TEMP 36.5; O2SAT 98
[2024-06-09 12:50] LABS: Absolute Lymphocyte Count 1.41 X10^3/uL (0.83-4.51); Absolute Neutrophil Count 10.7 X10^3/uL (2.0-7.7); Basophil# 0.02 X10^3/uL; Basophil% 0.2 % (0-1); Eosinophil# 0.03 X10^3/uL; Eosinophils% 0.2 % (0-5); Hematocrit 34.6 % (40-54); Hemoglobin 11.1 g/dL (13.0-16.5); Lymphocyte # 1.41 X10^3/ul (0.83-4.51); Lymphocyte % 10.9 % (19-41); Mean Corp Hgb Conc 32.1 g/dL (32-36); Mean Corpuscular Hgb 28.2 pg (27.0-32.0); Mean Corpuscular Volume 87.8 fL (80-94); Mean Platelet Vol. 9.3 fl (6.2-12.0); Monocyte# 0.69 X10^3/uL; Monocyte% 5.3 % (0-10); NRBC Flagged by Analyzer 0 % (0-5); Neutrophil # 10.68 X10^3/uL (2.7-7.7); Neutrophil % 82.6 % (47-70); Platelet Count 249 K/mm3 (150-450); RBC Distribution Width CV 16.1 % (11.6-14.6); RBC Distribution Width SD 51.3 fl (35.1-43.9); Red Blood Count 3.94 M/mm3 (4.6-6.2); White Blood Count 12.9 K/mm3 (4.4-11.0)
[2024-06-09 13:18] LABS: Lipase 46 U/L (13-75)
[2024-06-09 13:22] LABS: ALB/GLOB Ratio 0.9 RATIO (0.9-2.4); AST(SGOT) 11 U/L (<=37); Alanine Aminotransfer ALT/SGPT 13 U/L (<=46); Albumin, Serum 3.8 g/dL (3.4-4.8); Alkaline Phosphatase 81 U/L (40-129); Anion Gap 15 (5-15); BUN 21 mg/dL (4-19); BUN/Creat Ratio 20.3 RATIO (10-20); Calcium,Total 10.3 mg/dL (7.6-11.0); Carbon Dioxide 22.1 mmol/L (21.0-32.0); Chloride 94 mmol/L (98-108); Creatinine, Serum 1.05 mg/dL (0.70-1.20); EST Glomerular Filtration Rate 77 (>60); Globulin 4.2 g/dL (2.2-4.2); Glucose 289 mg/dL (70-99); Potassium 5.3 mmol/L (3.3-5.1); Sodium Level 131 mmol/L (133-145); Total Bilirubin 0.21 mg/dL (0.00-1.30)
[2024-06-09 14:09] VITALS: BMI 29.9
[2024-06-09 14:19] VITALS: BP 124/76; PULSE 77; RESP 18; O2SAT 95
--- NOTE | 2024-06-09 15:58 | CT_ITS ---
PROCEDURE: ABDOMEN/PELVIS W IV CONT ONLY 06/09/2024 REASON FOR EXAM: ABD PAIN. KNOWN AAA. I DO NOT THINK THAT IS CASUE. TECHNIQUE: Abdomen and pelvis CT with intravenous contrast. Coronal and Sagittal reconstruction series were provided. One or more dose reduction techniques were used (e.g., Automated exposure control, adjustment of the mA and/or kV according to patient size, use of iterative reconstruction technique. COMPARISON: 05/09/2024 FINDINGS: Lower chest: There is minimal atelectasis in the right lung base. Liver: Unremarkable. Biliary/gallbladder: Unremarkable. Pancreas: Unremarkable. Spleen: The spleen is enlarged measuring 15.8 cm. Adrenal glands: Stable left adrenal nodule measuring 2.5 cm. Kidneys: Contrast excretion in the collecting system. No hydronephrosis identified. Gastrointestinal/peritoneum: No acute abnormality.The appendix is unremarkable.No free air or free fluid. Vascular: Advanced atherosclerotic disease is present with multifocal areas of coarse intraluminal calcifications involving the celiac trunk, abdominal aorta and iliofemoral vessels. An infrarenal aortic aneurysm is stable in size when measured in a similar fashion measuring 4.2 x 3.6 cm. 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 Lymph nodes: No enlarged lymph nodes by CT size criteria. Pelvic organs: Unremarkable. Bladder: There is significant distention of the urinary bladder to the level of the umbilicus. Bones: Mild multilevel degenerative changes are present in the visualized spine. Soft tissues: There is a fat containing umbilical hernia measuring 3.[address]/Abdomen/Pelvis W IV Cont ONLY IMPRESSION: 1. Significant distention of the urinary bladder to the level of the umbilicus, possibly due to bladder outlet obstruction. Correlate with urine output. 2. Stable size and appearance of the infrarenal aortic aneurysm and left common iliac aneurysm. 3. Severe advanced atherosclerotic disease diffusely. 4. Splenomegaly. Reading [facility]
--- NOTE | 2024-06-09 15:59 | ED.VIS.GI ---
HPI HPI - GI History of Present Illness Chief Complaint: Abd Pain Informant: patient Abdominal Pain/Flank Pain Onset: Month(s) (1 to 2 months.) Context: Gradual Onset Timing: Continuous and - (Daily pain. Constant.) Location: Diffuse and Epigastric Current Severity: Moderate Maximum Severity: Moderate Worsened by: Nothing Relieved by: Nothing Nausea/Vomiting/Emesis GI Symptom: Negative for Nausea or Vomiting Diarrhea/Melena/Hematochezia GI Symptom: Negative for Diarrhea, Melena or Hematochezia Associated Symptoms Associated Symptoms: Negative for Dysuria, Frequency, Hematuria or Urgency Narrative Narrative: 69-year-old male history of diabetes, CABG in 2016, lung CA with a right lower lobe resection and left lower lung CA with radiation treatment. He said no abdominal surgeries he is chronic kidney disease stage III. Patient states the last 1 and half to 2 months he has had epigastric abdominal pain at times radiates to his armpits and throughout his abdomen. Said this worked up he had a recent CTA of his abdomen and pelvis and chest which showed a AAA but it was only around 3 cm. He does not know a specific cause for the pain. He states Vicodin helps. Denies any dysuria. Denies any constipation or significant diarrhea. He has had about 15 pound weight loss. Prior similar symptoms: Yes Recent Illness/Hospitalization: No PFSH PFSH Medical History Alcohol use Excessive bleeding History of echocardiogram History of stress test Cardiology follow-up encounter Chest pain Vitamin D deficiency Left adrenal mass CAD (coronary artery disease) Blind Cancer Depression Anxiety Diabetes History of renal disease Prostate disease DVT (deep venous thrombosis) High cholesterol Easy bruising Umbilical hernia Neuropathy Injury of head and neck Syncope Former smoker On home oxygen therapy CPAP (continuous positive airway pressure) dependence COPD (chronic obstructive pulmonary disease) Shortness of breath on exertion History of edema Hypertension Hx of fracture of foot Hx of fracture of leg Home Medications ?Medication ?Instructions ?Recorded ?Last Taken ?Type albuterol sulfate 2.5 mg/3 mL 2.5 mg inhalation DAILY 01/08/23 05/30/24 History (0.083 %) solution for nebulization albuterol sulfate 90 mcg/actuation 2 puff inhalation PRN PRN 01/08/23 05/30/24 History aerosol inhaler shortness of breath or wheezing aspirin 81 mg tablet,delayed 81 mg PO DAILY 01/08/23 05/23/24 History release atorvastatin 20 mg tablet 20 mg PO QHS 01/08/23 05/30/24 History dapagliflozin propanediol 5 mg 5 mg PO DAILY 01/08/23 05/23/24 History tablet (Farxiga) fluticasone fur. 100 mcg-umeclid 1 inh inhalation DAILY 01/08/23 05/31/24 History 62.5 mcg-vilant 25 mcg inhalat.powder (Trelegy Ellipta) furosemide 40 mg tablet 40 mg PO DAILY 01/08/23 05/30/24 History paroxetine HCl 10 mg tablet 10 mg PO DAILY 01/08/23 05/30/24 History pregabalin 150 mg capsule 150 mg PO .QID 01/08/23 05/30/24 History roflumilast 250 mcg tablet 250 mcg PO DAILY 01/08/23 05/30/24 History semaglutide 14 mg tablet (Rybelsus) 14 mg PO DAILY 01/08/23 05/23/24 History tamsulosin 0.4 mg capsule 0.4 mg PO BID 01/08/23 05/30/24 History lorazepam 1 mg tablet 1 mg PO TID 03/22/24 05/30/24 History metformin 500 mg tablet,extended 1,500 mg PO QHS 03/22/24 05/30/24 History release 24hr (osmotic) metoprolol tartrate 50 mg tablet 50 mg PO BID 03/22/24 05/30/24 History gabapentin 300 mg capsule 300 mg PO QHS 05/10/24 05/30/24 History pantoprazole 40 mg tablet,delayed 40 mg PO QDAY #90 tabs 05/10/24 05/30/24 Rx release hydrocodone-acetaminophen 5-325mg 1 tab PO Q6H PRN PRN pain 05/31/24 Unknown History 5mg-325mg nystatin 100,000 unit/mL oral 100,000 unit PO TID 14 days #42 mL 05/31/24 Unknown Rx suspension lidocaine 5 % topical patch 1 patch topical QDAY #30 ea 06/08/24 Unknown Rx (Lidoderm) Allergy/AdvReac Type Severity Reaction Status Date / Time No Known Allergies Allergy Verified 06/09/24 12:20 Family History Mother Cancer Heart disease Father Cancer Sister Cancer Heart disease Surgical History History of bronchoscopy Hx of biopsy History of lobectomy of lung Hx of oral surgery History of open heart surgery (05/08/15) Social History Smoking Status: Former smoker alcohol intake: current alcohol intake frequency: a few times a month Alcohol type: beer substance use type: does not use ROS ROS ED ROS Narrative Abdominal pain. Weight loss. Constitutional Constitutional ED: Denies chills or fever(s) ENT ENT ED: Denies ear pain Cardiovascular Cardiovascular: Denies chest pain Respiratory/Chest Respiratory/Chest: Denies cough or dyspnea Gastrointestinal Gastrointestinal: Reports abdominal pain and other Details: 15 pound weight loss in 1 to 2 months. ; Denies constipation, diarrhea, melena, nausea or vomiting Genitourinary Genitourinary ED: Denies dysuria or hematuria Musculoskeletal Musculoskeletal: Denies arthralgias or back pain Integumentary Denies abscess or Abrasions Neurologic Neurologic: Denies headache(s) Psychiatric Psychiatric: Denies anxiety or depression Endocrine Endocrinology: Denies polydipsia Hematologic/Lymphatic Hematologic/Lymphatic: Denies easy bleeding or easy bruising Allergic/Immunologic Allergic/Immunologic ED: Denies mouth swelling, tongue swelling or urticaria EXAM Physical Exam Narrative Exam Narrative: 61-year-old male sitting upright in bed. Family in the room. Vital signs are stable afebrile. He is in no acute distress. H EENT exam pupils round react light. Without dentition. Moist mucous membranes. Neck nontender no lymphadenopathy. Lungs clear to auscultation bilaterally. Heart regular rhythm rate about 80 no murmur. Chest wall ribs nontender. Abdomen soft nondistended normal bowel sounds without peritoneal signs. No pulsatile mass appreciated. No obstruction. He is mildly tender epigastric region. Right upper right lower quadrant unremarkable. No hernia or mass. Moving all 4 extremities. Nontender no edema. Back nontender. Neurologically is awake alert. Const Vital Signs: 06/09/24 12:20 06/09/24 14:19 Temperature 97.7 F L Temperature Source Oral Pulse Rate 92 77 Respiratory Rate 15 18 Blood Pressure 109/71 124/76 H Blood Pressure Mean 83 92 Pulse Ox 98 95 Oxygen Delivery Method Room Air Room Air Positive well nourished and well developed; Negative for cachectic, contractures or unkempt General Appearance ED: well developed and NAD; Negative for unkempt, cachectic or contractures Nutritional Appearance: Negative for cachectic HEENT Reports moist mucous membranes normocephalic and atraumatic Eyes PERRL and EOMs intact bilaterally General Eye ED: Negative for pale conjunctiva or scleral icterus Neck no lymphadenopathy, supple and no JVD General: Negative for tenderness Carotids: Negative for other Resp normal respiratory effort and clear to auscultation bilaterally Effort and Inspection: Negative for respiratory distress Auscultation: Negative for rales, rhonchi, wheezes or diminished lung sounds Cardio regular rate, regular rhythm, S1 normal heart sound, S2 normal heart sound and no murmurs Psych Appearance: Negative for unkempt MDM MDM MDM Narrative Medical decision making narrative: I have personally performed a face to face assessment of the patient and have reviewed the FRANCOISE Note. I performed a substantive portion of the visit including all aspects of the following. My andersen findings include: History is [69-year-old male with 1-1/2 to 2-month history of abdominal and chest pain with negative workups. Requesting pain medication. He has a known AAA.] Exam is [well-appearing 61-year-old male. Vital signs stable afebrile. H EENT exam moist mucous membranes. Unremarkable. Neck nontender. Lungs clear. Heart regular rhythm rate about 80 no murmur. Chest wall and ribs nontender. Abdomen is soft nondistended normal bowel sounds without peritoneal signs. Mild epigastric tenderness. No rebound guarding rigidity. No pulsatile mass. Moving all 4 extremities. Neurologically is awake alert no focal motor deficits.] Medical Decision Making [patient with known abdominal pain without specific cause that recently had a full workup including CAT scan and also an upper endoscopy without a specific etiology. His labs today do not really show any significant abnormalities. His repeat abdominal CT shows a stable AAA but nothing else acute. Patient was given Dilaudid here. I explained to him that he will not be given narcotic prescription for home and he can follow-up with his primary care physician.] Other additions or changes: [ repeat exam at 5:20 PM I like discussion with patient and his son explained him we cannot treat his chronic pain that we do not have a specific diagnosis for nor has any bowels, blaming the other people he is following up with with narcotic prescriptions.] He will be discharged to home. Use Motrin Tylenol for pain. Follow-up with his new primary care physician and pain management. History & Record Review Discussion w/independent historian: Patient and Family Additional record(s) reviewed:: Prior inpatient record, Prior outpatient record, Prior ED visit and Prior labs Lab Data Attestation: I reviewed the patient's lab results. Lab results narrative: CBC shows a white count 12.9. H&H 11.1 and 34.6. Platelets 249. Electrolytes show sodium 131. Potassium 5.3. Gap is 15. BUN and creatinine are 21 and 1. Glucose 289. Liver enzymes normal. Lipase 46. Labs: Laboratory Results - last 24 hr 06/09/24 12:32 WBC 12.9 H RBC 3.94 L Hgb 11.1 L Hct 34.6 L MCV 87.8 MCH 28.2 MCHC 32.1 RDW Std Deviation 51.3 H RDW Coeff of Jaquan 16.1 H Plt Count 249 MPV 9.3 Immature Gran % (Auto) 0.800 Neut % (Auto) 82.6 H Lymph % (Auto) 10.9 L Cassia % (Auto) 5.3 Eos % (Auto) 0.2 Baso % (Auto) 0.2 Absolute Neuts (auto) 10.7 H Absolute Lymphs (auto) 1.41 Nucleated RBC % 0 Sodium 131 L Potassium 5.3 H Chloride 94 L Carbon Dioxide 22.1 Anion Gap 15 BUN 21 H Creatinine 1.05 Est GFR (MDRD) Non-Af 77 BUN/Creatinine Ratio 20.3 H Glucose 289 H Calcium 10.3 Total Bilirubin 0.21 AST 11 ALT 13 Alkaline Phosphatase 81 Total Protein 8.0 Albumin 3.8 Globulin 4.2 Albumin/Globulin Ratio 0.9 Lipase 46 Discharge Plan Triage Chief Complaint: Abd Pain ED Provider: Carroll Celeste Dx/Rx/DC Orders Clinical Impression: Abdominal pain of unknown etiology, Diabetes, Chronic kidney disease Instructions: ED Abdominal Pain Unkn Cause Male... Prescriptions: No Action gabapentin 300 mg capsule 300 mg PO QHS pantoprazole 40 mg tablet,delayed release (DR/EC) 40 mg PO QDAY Qty: 90 1RF Rx Instructions: take 30 minutes before breakfast every morning furosemide 40 mg tablet 40 mg PO DAILY paroxetine HCl 10 mg tablet 10 mg PO DAILY pregabalin 150 mg capsule 150 mg PO .QID roflumilast 250 mcg tablet 250 mcg PO DAILY Rybelsus 14 mg tablet 14 mg PO DAILY tamsulosin 0.4 mg capsule 0.4 mg PO BID Patient Comments: TAKE 2 CAPSULES BY MOUTH EVERY DAY WITH A MEAL albuterol sulfate 2.5 mg /3 mL (0.083 %) solution for nebulization 2.5 mg inhalation DAILY albuterol sulfate 90 mcg/actuation HFA aerosol inhaler 2 puff INHALATION PRN PRN (Reason: shortness of breath or wheezing) aspirin 81 mg tablet,delayed release (DR/EC) 81 mg PO DAILY atorvastatin 20 mg tablet 20 mg PO QHS dapagliflozin propanediol [Farxiga] 5 mg tablet 5 mg PO DAILY Trelegy Ellipta 100-62.5-25 mcg blister with device 1 inh INHALATION DAILY metformin 500 mg tablet extended release 24hr 1,500 mg PO QHS Patient Comments: TAKE 2 tabs in the AM and One tab in PM Rx Instructions: TAKE 2 tabs in the AM and One tab in PM metoprolol tartrate 50 mg tablet 50 mg PO BID lorazepam 1 mg tablet 1 mg PO TID hydrocodone-acetaminophen 5-325 mg tablet 1 tab PO Q6H PRN PRN (Reason: pain) nystatin 100,000 unit/mL suspension 100,000 unit PO TID 14 Days Qty: 42 2RF Rx Instructions: swish and spit lidocaine [Lidoderm] 5 % adhesive patch,medicated 1 patch topical QDAY Qty: 30 1RF Rx Instructions: leave on most painful area for up to 12 hrs Primary Care Provider: Desiree Saleh Referrals: william [Other] Desiree Saleh MD [Primary Care Provider] - As soon as possible Activity Restrictions/Additional Instructions: No specific cause for your abdominal pain. Follow-up with your primary care physician to be referred to pain management for further evaluation and possible treatment. Print Language: Mohawk Disposition Disposition: Home, Self Care
[2024-06-09 16:00] VITALS: PULSE 78; RESP 18; O2SAT 98
[2024-06-09] MEDS: HYDROmorphone 1 MG/ML Syringe IV (16:06)
== END 2024-06-09 17:38 | disposition home or self-care (01) ==
PROVIDERS: Emergency Provider Emergency Medicine; PCP Internal Medicine; Visit Provider Emergency Medicine
DX: R10.9 Unspecified abdominal pain (principal); J44.9 Chronic obstructive pulmonary disease, unspecified; E11.22 Type 2 diabetes mellitus with diabetic chronic kidney disease; N18.9 Chronic kidney disease, unspecified; I25.10 Atherosclerotic heart disease of native coronary artery without angina pectoris; I12.9 Hypertensive chronic kidney disease with stage 1 through stage 4 chronic kidney disease, or unspecified chronic kidney disease; Z87.891 Personal history of nicotine dependence; Z95.1 Presence of aortocoronary bypass graft; Z86.718 Personal history of other venous thrombosis and embolism
CPT/HCPCS: 74177; 80053; 83690; 85025; 96374; 99283; Q9967; A4216

== ENCOUNTER → 2024-06-14 | Outpatient (CLI) | payer MEDICARE, SELFPAY ==
[2024-06-14 16:50] LABS: Absolute Lymphocyte Count 1.19 X10^3/uL (0.83-4.51); Absolute Neutrophil Count 12.3 X10^3/uL (2.0-7.7); Basophil# 0.01 X10^3/uL; Basophil% 0.1 % (0-1); Eosinophil# 0.01 X10^3/uL; Eosinophils% 0.1 % (0-5); Hemoglobin 11.9 g/dL (13.0-16.5); Lymphocyte # 1.19 X10^3/ul (0.83-4.51); Lymphocyte % 8.4 % (19-41); Mean Corp Hgb Conc 32.2 g/dL (32-36); Mean Corpuscular Hgb 27.9 pg (27.0-32.0); Mean Corpuscular Volume 86.9 fL (80-94); Mean Platelet Vol. 9.9 fl (6.2-12.0); Monocyte# 0.51 X10^3/uL; Monocyte% 3.6 % (0-10); NRBC Flagged by Analyzer 0 % (0-5); Neutrophil # 12.29 X10^3/uL (2.7-7.7); Neutrophil % 86.6 % (47-70); Platelet Count 250 K/mm3 (150-450); RBC Distribution Width CV 16.5 % (11.6-14.6); RBC Distribution Width SD 51.6 fl (35.1-43.9); Red Blood Count 4.26 M/mm3 (4.6-6.2); White Blood Count 14.2 K/mm3 (4.4-11.0)
[2024-06-14 17:03] LABS: Erythrocyte Sedimentation Rate 34 mm/hr (0-20)
[2024-06-14 18:19] LABS: AST(SGOT) 12 U/L (<=37); Alanine Aminotransfer ALT/SGPT 18 U/L (<=46); Alkaline Phosphatase 84 U/L (40-129); Anion Gap 18 (5-15); BUN 24 mg/dL (4-19); BUN/Creat Ratio 24.2 RATIO (10-20); Calcium,Total 10.1 mg/dL (7.6-11.0); Carbon Dioxide 23.4 mmol/L (21.0-32.0); Chloride 92 mmol/L (98-108); Creatinine, Serum 0.98 mg/dL (0.70-1.20); EST Glomerular Filtration Rate 84 (>60); Glucose 360 mg/dL (70-99); Potassium 4.5 mmol/L (3.3-5.1); Protein, Total 7.9 g/dL (5.9-8.4); Sodium Level 133 mmol/L (133-145); Total Bilirubin 0.25 mg/dL (0.00-1.30)
[2024-06-16 13:08] LABS: ANTINUCLEAR ANTIBODIES DIRECT Negative (Negative); Anti-Centromere B Ab <0.2 AI (0.0-0.9); Anti-Chromatin <0.2 AI (0.0-0.9); Anti-Jo <0.2 AI (0.0-0.9); Anti-Scleroderma-70 AB <0.2 AI (0.0-0.9); Anti-dsDNA Ab 2 IU/mL (0-9); RNP Ab <0.2 AI (0.0-0.9); SJOGREN'S Anti-SS-A test < 0.2 AI (0.0-0.9); SJOGREN'S Anti-SS-B test < 0.2 AI (0.0-0.9); Smith Ab <0.2 AI (0.0-0.9)
== END | disposition home or self-care (01) ==
LOC: BIMLAB 15:20
PROVIDERS: PCP Internal Medicine; Referring Provider Internal Medicine; Visit Provider Internal Medicine
DX: R10.9 Unspecified abdominal pain (principal); G89.29 Other chronic pain
CPT/HCPCS: 36415; 80053; 85025; 85652; 86038; 86140; 86225; 86235

== ENCOUNTER → 2024-06-15 | Outpatient (CLI) | payer MEDICARE, SELFPAY | END | disposition home or self-care (01) | LOC: LABSPEC 09:54 | PROVIDERS: PCP Internal Medicine; Visit Provider Internal Medicine | DX: Z00.00 Encounter for general adult medical examination without abnormal findings (principal) ==

== ENCOUNTER → 2024-06-23 | Outpatient (CLI) | payer MEDICARE, MEDICAID, SELFPAY ==
[2024-06-23 09:33] LABS: AST(SGOT) 11 U/L (<=37); Alanine Aminotransfer ALT/SGPT 17 U/L (<=46); Albumin, Serum 3.7 g/dL (3.4-4.8); Alkaline Phosphatase 74 U/L (40-129); Anion Gap 16 (5-15); BUN 21 mg/dL (4-19); BUN/Creat Ratio 21.7 RATIO (10-20); Calcium,Total 9.8 mg/dL (7.6-11.0); Carbon Dioxide 21.4 mmol/L (21.0-32.0); Chloride 92 mmol/L (98-108); Creatinine, Serum 0.96 mg/dL (0.70-1.20); EST Glomerular Filtration Rate 87 (>60); Globulin 3.8 g/dL (2.2-4.2); Glucose 304 mg/dL (70-99); Magnesium 1.9 mg/dL (1.5-2.2); Potassium 4.3 mmol/L (3.3-5.1); Protein, Total 7.5 g/dL (5.9-8.4); Sodium Level 129 mmol/L (133-145); Total Bilirubin 0.47 mg/dL (0.00-1.30)
[2024-06-24 13:08] LABS: C-Peptide 4.9 ng/mL (1.1-4.4)
== END | disposition home or self-care (01) ==
PROVIDERS: PCP Internal Medicine; Referring Provider Internal Medicine Endocrinology, Diabetes & Metabolism; Visit Provider Internal Medicine Endocrinology, Diabetes & Metabolism
DX: E11.65 Type 2 diabetes mellitus with hyperglycemia (principal); C34.11 Malignant neoplasm of upper lobe, right bronchus or lung; E11.42 Type 2 diabetes mellitus with diabetic polyneuropathy; E27.8 Other specified disorders of adrenal gland; E55.9 Vitamin D deficiency, unspecified
CPT/HCPCS: 36415; 80053; 83735; 84681

== ENCOUNTER → 2024-07-07 | Outpatient (CLI) | payer MEDICARE, SELFPAY ==
--- NOTE | 2024-07-07 09:30 | US_ITS ---
PROCEDURE: ABDOMEN LIMITED 07/07/2024 REASON FOR EXAM: RUQ PAIN COMPARISON: Prior CT scan of the abdomen and pelvis dated June 09, 2024. FINDINGS: Liver: Diffusely echogenic suggesting fatty infiltration. Hepatomegaly. The liver measures 22 cm. Findings suggestive of focal fatty sparing measuring 3.3 cm 2.8 cm 1.4 cm in the Jo gallbladder region. Gallbladder: The gallbladder is distended. No evidence of cholelithiasis. Gallbladder wall is not thickened. Common bile duct: Normal measuring measuring 5.9 mm. . Pancreas: Visualized portions are unremarkable. The distal body and tail are obscured by bowel gas. Other: Visualized portions of the right kidney are unremarkable. No right upper quadrant ascites. US/Abdomen Limited IMPRESSION: Hepatomegaly. Fatty infiltration of the liver. Findings suggestive of focal fatty sparing in the right lobe of the liver adjac ent of the gallbladder fossa. Distended gallbladder although no evidence of cholelithiasis. Reading Location: [place] [id number]
== END | disposition home or self-care (01) ==
LOC: US 09:30
PROVIDERS: PCP Internal Medicine; Referring Provider Nurse Practitioner Acute Care; Visit Provider Nurse Practitioner Acute Care
DX: R10.11 Right upper quadrant pain (principal)
CPT/HCPCS: 76705

== ENCOUNTER → 2024-07-20 | Outpatient (CLI) | payer MEDICARE, MEDICAID, SELFPAY ==
[2024-07-20 14:08] LABS: Lipase 34 U/L (13-75)
== END | disposition home or self-care (01) ==
LOC: LAB 12:24
PROVIDERS: PCP Internal Medicine; Referring Provider Internal Medicine Endocrinology, Diabetes & Metabolism; Visit Provider Internal Medicine Endocrinology, Diabetes & Metabolism
DX: E11.65 Type 2 diabetes mellitus with hyperglycemia (principal)
CPT/HCPCS: 36415; 83690

== ENCOUNTER 2024-08-04 08:45 | Outpatient (RCR) | payer MEDICARE, MEDICAID, SELFPAY | END 2024-08-04 19:00 | disposition home or self-care (01) | LOC: PT 08:45 | PROVIDERS: PCP Internal Medicine; Referring Provider Anesthesiology; Visit Provider Anesthesiology | DX: M47.814 Spondylosis without myelopathy or radiculopathy, thoracic region (principal) | CPT/HCPCS: 97161 ==

== ENCOUNTER → 2024-08-08 | Outpatient (CLI) | payer MEDICARE, SELFPAY ==
--- NOTE | 2024-08-08 07:47 | NM_ITS ---
PROCEDURE: HEPATOBILLIARY IMG W/PHARM INT 08/08/2024 REASON FOR EXAM: RUQ PAIN, NAUSEA TECHNIQUE: Intravenous Choletec with planar imaging of the abdomen. 1.7 mcg Kinevac intravenously approximately 60 minutes after the radiopharmaceutical with additional anterior imaging and a region of interest drawn around the gallbladder to calculate a time-activity curve. RADIOPHARMACEUTICAL: Mebrofenin DOSE 5.7mCi COMPARISON: Prior sonogram dated July 07, 2024. FINDINGS: There is good uptake of the radiopharmaceutical by the liver. Normal gallbladder visualization with the gallbladder identified by 30 minutes. Gallbladder Ejection Fraction: 81 % (Normal is >35%) NM/Hepatobilliary Img w/Pharm Int IMPRESSION: Normal gallbladder ejection fraction Reading Location: [place] [id number]
== END | disposition home or self-care (01) ==
LOC: NM 07:47
PROVIDERS: PCP Internal Medicine; Referring Provider Nurse Practitioner Acute Care; Visit Provider Nurse Practitioner Acute Care
DX: R10.11 Right upper quadrant pain (principal)
CPT/HCPCS: 78227; A9537; J2805

== ENCOUNTER 2024-09-04 10:30 | Inpatient (IN) | payer MEDICARE, SELFPAY ==
[2024-09-04] VITALS (24 sets, daily range): BP systolic 83–140; BP diastolic 48–96; PULSE 99–140; RESP 12–29; TEMP 37.3–39.3; O2SAT 90–99; BMI 24.4; BMI 17.4
--- NOTE | 2024-09-04 11:02 | EKG12_ITS ---
Test Reason : weakness Blood Pressure : */* mmHG Vent. Rate : 110 BPM Atrial Rate : 110 BPM P-R Int : 162 ms QRS Dur : 120 ms QT Int : 390 ms P-R-T Axes : -16 107 50 degrees QTcB Int : 527 ms Sinus tachycardia with frequent Premature ventricular complexes Rightward axis Non-specific intra-ventricular conduction delay Borderline ECG Confirmed by ISAURA PENA, ANASTACIO ([id number]), social media editor ARIA CERVANTES ([id number]) on 09/05/2024 11:10:24 AM Referred By: Confirmed By: ANASTACIO DELAROSA MD
--- NOTE | 2024-09-04 11:02 | RAD_ITS ---
PROCEDURE: CHEST 1 VIEW (PORTABLE) 09/04/2024 REASON FOR EXAM: FEVER TECHNIQUE: Frontal view of the chest. COMPARISON: Prior study dated January 13, 2023. FINDINGS: Hardware: EKG electrodes are seen. Prior midline sternotomy. Heart: Borderline cardiomegaly. Lungs: Increased interstitial markings in both lungs suggestive of scarring. Findings suggestive of early infiltrate in the left upper lobe. Prominence of the central pulmonary arteries suggestive of pulmonary hypertension. History of prior right upper lobectomy. Bones: Healed right rib fractures. Other: RAD/Chest 1 View (Portable) IMPRESSION: Stable examination with evidence of hyperinflation and pulmonary hypertension. Stable nodular density and/or infiltrate in the left upper lobe. Reading Location: [id number]
--- NOTE | 2024-09-04 11:04 | EX.ED.DYSGE1 ---
HPI History of Present Illness Chief Complaint: Fall Detail of Chief Complaint: Falls and near syncope Informant: patient and friend Narrative Narrative: Patient brought to the emergency department via EMS after a fall today. His friend was taking him to his radiation appointment as he has been receiving radiation therapy on his right lung. When getting out of the pickup truck patient that he was sitting on the wheelchair that was there for him and his legs gave out and he fell to the ground. He did not strike his head. Apparently when bystanders tried to help him up he was pale and his eyes, rolled back in his head but he denies passing out or losing consciousness. Patient is fallen 3 times today apparently. Complains of some generalized weakness. Patient states he injured his left small toe 3 days ago. Today was noted to have a fever. He denies urinary symptoms. [facility] Medical History Alcohol use Excessive bleeding History of echocardiogram History of stress test Cardiology follow-up encounter Chest pain Vitamin D deficiency Left adrenal mass CAD (coronary artery disease) Blind Cancer Depression Anxiety Diabetes Prostate disease DVT (deep venous thrombosis) High cholesterol Easy bruising Umbilical hernia Neuropathy Injury of head and neck Syncope Former smoker On home oxygen therapy CPAP (continuous positive airway pressure) dependence COPD (chronic obstructive pulmonary disease) Shortness of breath on exertion History of edema Hypertension Home Medications ?Medication ?Instructions ?Recorded ?Last Taken ?Type albuterol sulfate 2.5 mg/3 mL 2.5 mg inhalation DAILY 01/08/23 09/03/24 History (0.083 %) solution for nebulization albuterol sulfate 90 mcg/actuation 2 puff inhalation PRN PRN 01/08/23 05/30/24 History aerosol inhaler shortness of breath or wheezing aspirin 81 mg tablet,delayed 81 mg PO DAILY 01/08/23 09/04/24 History release atorvastatin 20 mg tablet 20 mg PO QHS 01/08/23 09/03/24 History dapagliflozin propanediol 5 mg 5 mg PO DAILY 01/08/23 09/03/24 History tablet (Farxiga) fluticasone fur. 100 mcg-umeclid 1 inh inhalation DAILY 01/08/23 09/03/24 History 62.5 mcg-vilant 25 mcg inhalat.powder (Trelegy Ellipta) furosemide 40 mg tablet 40 mg PO DAILY 01/08/23 09/04/24 History paroxetine HCl 10 mg tablet 10 mg PO DAILY 01/08/23 09/04/24 History pregabalin 150 mg capsule 150 mg PO DAILY 01/08/23 09/04/24 History roflumilast 250 mcg tablet 250 mcg PO DAILY 01/08/23 09/04/24 History tamsulosin 0.4 mg capsule 0.4 mg PO Q24H 01/08/23 09/04/24 History metformin 500 mg tablet,extended 1,500 mg PO QHS 03/22/24 09/04/24 History release 24hr (osmotic) gabapentin 300 mg capsule 300 mg PO QHS 05/10/24 09/03/24 History lorazepam 1 mg tablet 1 mg PO TID #90 tabs 07/04/24 Unknown Rx esomeprazole magnesium 40 mg 40 mg PO DAILY 09/04/24 09/03/24 History capsule,delayed release insulin lispro protamine-lispro 15 unit subcut BIDCM 09/04/24 09/04/24 History 100 unit/mL (75-25) subcutaneous pen (Humalog Mix 75-25 KwikPen) metoprolol succinate 25 mg 25 mg PO DAILY 09/04/24 09/04/24 History tablet,extended release 24 hr oxycodone 5 mg tablet 5 - 10 mg PO Q6H PRN PRN pain 09/04/24 Unknown History prednisone 5 mg tablet 15 mg PO DAILY 09/04/24 Unknown History semaglutide 7 mg tablet (Rybelsus) 7 mg PO DAILY 09/04/24 09/04/24 History vitamin B complex (Complex B-100 1 tab PO DAILY 09/04/24 09/04/24 History tablet,extended release) Allergy/AdvReac Type Severity Reaction Status Date / Time No Known Allergies Allergy Verified 07/24/24 10:03 Family History Mother Cancer LUNG Heart disease Father Cancer lung Sister Cancer lung Heart disease Sister Cancer lung Sister Cancer lung Sister Colon cancer Surgical History Hx of fracture of leg Hx of fracture of foot History of bronchoscopy Hx of biopsy History of lobectomy of lung Hx of oral surgery History of open heart surgery (05/08/15) Social History household members: none 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 Smoking Status: Former smoker quit date: 03/15/15 pack-years: 120 alcohol intake: current alcohol intake frequency: a few times a month Alcohol type: beer substance use type: does not use what type of physical activity do you participate in: none seatbelt use: always do you feel safe at home: Yes ROS ROS ED Review of Systems ROS Unobtainable: other Constitutional Constitutional ED: Reports fever(s) and lethargy; Denies chills, sweats or weight loss Eyes Eyes: Denies blurry vision, change in vision or diplopia ENT ENT ED: Denies rhinorrhea or sore throat Cardiovascular Cardiovascular: Denies chest pain, orthopnea or racing heartbeat Respiratory/Chest Respiratory/Chest: Denies cough, dyspnea, dyspnea on exertion, orthopnea or sputum Gastrointestinal Gastrointestinal: Denies abdominal pain, diarrhea, nausea or vomiting Genitourinary Genitourinary ED: Denies dysuria, hematuria or urinary frequency Musculoskeletal Musculoskeletal: Denies arthralgias, back pain, myalgias or neck pain Integumentary Denies abscess, Abrasions or rash Neurologic Neurologic: Reports weakness; Denies headache(s) Psychiatric Psychiatric: Denies anxiety, depression or suicidal thoughts Endocrine Endocrinology: Denies polydipsia, polyphagia or polyuria Hematologic/Lymphatic Hematologic/Lymphatic: Denies easy bleeding, easy bruising or lymphadenopathy Allergic/Immunologic Allergic/Immunologic ED: Denies mouth swelling, tongue swelling or urticaria EXAM Physical Exam Const Vital Signs: 09/04/24 10:31 09/04/24 10:39 09/04/24 11:51 Temperature 100.9 F H 102.6 F H Temperature Source Oral Oral Pulse Rate 122 H 107 H Respiratory Rate 12 22 H Respiratory Effort Normal Respiratory Depth Normal Respiratory Pattern Normal Blood Pressure 108/62 92/55 L Blood Pressure Mean 77 67 Pulse Ox 93 93 93 Oxygen Delivery Method Room Air Room Air Room Air 09/04/24 12:40 Temperature 102.6 F H Temperature Source Oral Pulse Rate 108 H Respiratory Rate 18 Respiratory Effort Respiratory Depth Respiratory Pattern Blood Pressure 85/65 L Blood Pressure Mean 71 Pulse Ox 95 Oxygen Delivery Method Room Air Positive well nourished and well developed General Appearance ED: well developed and NAD HEENT Reports TM's clear and moist mucous membranes normocephalic and atraumatic; Negative for trauma or tenderness Tympanic Membrane ED: Yes TM's clear Eyes PERRL and EOMs intact bilaterally General Eye ED: Negative for pale conjunctiva or scleral icterus Neck no lymphadenopathy, supple and no JVD General: Negative for tenderness Chest Wall inspection of chest normal and palpation of chest normal Chest: Negative for tenderness Resp normal respiratory effort and clear to auscultation bilaterally Effort and Inspection: Negative for respiratory distress or pain with movement Auscultation: Negative for rhonchi, wheezes or diminished lung sounds Cardio regular rate, regular rhythm, S1 normal heart sound, S2 normal heart sound and no murmurs Peripheral Pulses: pulses 2+ throughout GI normal to inspection, nondistended, normoactive bowel sounds, soft to palpation, non-tender, non-distended and no masses Back/Spine no CVA tenderness and no thoracic nor lumbar tenderness Extremity normal to inspection Extremity Narrative: No deformity to the hips. Mild diffuse tenderness bilaterally. No shortening or external rotation noted to the hips. Left small toe-patient has a 3 cm laceration at the base of the small toe with no active bleeding currently. General Extremety ED: Negative for edema General Extremity: Negative for edema Neuro oriented x3, CN's II-XII intact bilaterally, no sensory deficits noted and gait normal Sensorium / Orientation: awake, alert, oriented to person, oriented to place and oriented to time Motor Exam: strength 5/5 throughout and strength abnormal Psych mental status grossly normal Skin no rashes or lesions noted and no wounds [facility] MDM MDM Narrative Medical decision making narrative: Falls x 3 today. Generally feels weak. Denies significant injury. Patient noted to have a fever on arrival. Clinically looks well. IV line established. EKG obtained on arrival showed a sinus rhythm with rate of [address] changes and occasional PVCs. CBC with differential showed an elevated white count of 15.3 with hemoglobin 7.2 and platelet count of 235. Chemistries showed hyponatremia with sodium 124 and potassium 2.5.. BUN 8 and creatinine 0.94. Urinalysis without signs of infection. Lactate was elevated 2.9. Chest x-ray unremarkable. X-ray of pelvis unremarkable. X-ray of left toes obtained showed no fractures. Lab Data Attestation: I reviewed the patient's lab results. Labs: Laboratory Results - last 24 hr 09/04/24 09/04/24 11:00 12:40 WBC 15.3 H RBC 2.60 L Hgb 7.2 L Hct 22.7 L MCV 87.3 MCH 27.7 MCHC 31.7 L RDW Std Deviation 53.2 H RDW Coeff of Jaquan 16.9 H Plt Count 235 MPV 10.1 Immature Gran % (Auto) 1.500 H Neut % (Auto) 90.2 H Lymph % (Auto) 2.7 L [place] % (Auto) 5.5 Eos % (Auto) 0.0 Baso % (Auto) 0.1 Absolute Neuts (auto) 13.8 H Absolute Lymphs (auto) 0.41 L Nucleated RBC % 0 Sodium 124 L Potassium 2.5 L* Chloride 80 L Carbon Dioxide 29.8 Anion Gap 14 BUN 8 Creatinine 0.94 Estim Creat Clear Calc 85.00 Est GFR (MDRD) Non-Af 89 BUN/Creatinine Ratio 8.3 L Glucose 280 H Lactic Acid 2.9 H* Calcium 8.4 Urine Color Yellow Urine Clarity Clear Urine pH 6.0 Ur Specific [place] 1.010 Urine Protein 30 H Urine Glucose (UA) 50 H Urine Ketones Negative Urine Occult Blood 10 H Urine Nitrite Negative Urine Bilirubin Negative Urine Urobilinogen Normal Ur Leukocyte Esterase Negative Urine RBC 0-5 SEEN Urine WBC 0-5 SEEN Ur Squamous Epith Cells 0-5 SEEN Urine Bacteria 0 SEEN Urine Mucus 0 SEEN Radiography Diagnostic Testing: Clinical Impression(s) from Imaging Studies Chest X-Ray 09/04/24 11:02 IMPRESSION: Stable examination with evidence of hyperinflation and pulmonary hypertension. Stable nodular density and/or infiltrate in the left upper lobe. Reading Location: [facility] Pelvis X-Ray 09/04/24 11:06 IMPRESSION: No acute abnormality is seen. Dense atherosclerotic calcification of the abdominal aorta and iliac arteries. Reading Location: [id number] Toe X-Ray 09/04/24 11:06 IMPRESSION: No acute fracture is seen. Reading Location: [facility] Three-view x-rays of left toes obtained interpreted by myself as no evidence of fractures. Radiology in agreement. Pelvis x-ray obtained interpreted by myself as no evidence of fracture. Radiology agreement. 1 view chest x-ray obtained interpreted by myself as no evidence of infiltrate or pneumothorax or acute disease process. Radiology in agreement. Radiology felt there was stable nodular density in her infiltrate in left upper lobe. EKG Initial EKG: Attestation: I personally reviewed and interpreted this EKG as follows: Comments: Sinus rhythm with ventricular rate of of 110 bpm with PVCs and nonspecific ST changes Critical Care Time Critical Care Time: Yes Critical care time (excluding procedures): 30-74 minutes, Including time spent:, Discussing w/Patient &/or Family/Drop Wire Operator, Discussing w/Consultants, Arranging Admission or Transfer, Performing Direct Patient Care at Bedside and - (30 minutes) Discharge Plan Triage Chief Complaint: Fall ED Provider: Janie Madsen Dx/Rx/DC Orders Clinical Impression: Sepsis, Acute hyponatremia, Acute hypokalemia, Weakness, Falls, Anemia Prescriptions: No Action gabapentin 300 mg capsule 300 mg PO QHS furosemide 40 mg tablet 40 mg PO DAILY paroxetine HCl 10 mg tablet 10 mg PO DAILY pregabalin 150 mg capsule 150 mg PO DAILY roflumilast 250 mcg tablet 250 mcg PO DAILY tamsulosin 0.4 mg capsule 0.4 mg PO Q24H albuterol sulfate 2.5 mg /3 mL (0.083 %) solution for nebulization 2.5 mg inhalation DAILY albuterol sulfate 90 mcg/actuation HFA aerosol inhaler 2 puff INHALATION PRN PRN (Reason: shortness of breath or wheezing) aspirin 81 mg tablet,delayed release (DR/EC) 81 mg PO DAILY atorvastatin 20 mg tablet 20 mg PO QHS dapagliflozin propanediol [Farxiga] 5 mg tablet 5 mg PO DAILY Trelegy Ellipta 100-62.5-25 mcg blister with device 1 inh INHALATION DAILY metformin 500 mg tablet extended release 24hr 1,500 mg PO QHS Patient Comments: TAKE 2 tabs in the AM and One tab in PM Rx Instructions: TAKE 2 tabs in the AM and One tab in PM esomeprazole magnesium 40 mg capsule,delayed release(DR/EC) 40 mg PO DAILY metoprolol succinate 25 mg tablet extended release 24 hr 25 mg PO DAILY oxycodone 5 mg tablet 5 - 10 mg PO Q6H PRN PRN (Reason: pain) insulin lispro protamin-lispro [Humalog Mix 75-25 KwikPen] 100 unit/mL (75-25) insulin pen 15 unit subcut BIDCM Rybelsus 7 mg tablet 7 mg PO DAILY prednisone 5 mg tablet 15 mg PO DAILY Complex B-100 Tablet Extended Release 1 tab PO DAILY lorazepam 1 mg tablet 1 mg PO TID Qty: 90 0RF Primary Care Provider: Desiree Saleh Referrals: Desiree Saleh MD [Primary Care Provider] - Print Language: Slovak Disposition Disposition: Acute Care [facility]
--- NOTE | 2024-09-04 11:06 | RAD_ITS ---
PROCEDURE: PELVIS 1 OR 2 VIEWS 09/04/2024 REASON FOR EXAM: FALL TECHNIQUE: PELVIS 1 OR 2 VIEWS COMPARISON: None FINDINGS: Hardware: None Bones: No fracture. Joints: Moderate degree of joint space narrowing of both hip joints. soft tissues: Dense vascular calcification. Other: RAD/Pelvis 1 or 2 Views IMPRESSION: No acute abnormality is seen. Dense atherosclerotic calcification of the abdominal aorta and iliac arteries. Reading Location: [facility]
--- NOTE | 2024-09-04 11:06 | RAD_ITS ---
PROCEDURE: TOE(S) MIN 2 VIEWS 09/04/2024 REASON FOR EXAM: INJURY Bruising of the 5th digit. TECHNIQUE: TOE(S) MIN 2 VIEWS COMPARISON: None FINDINGS: No visible fracture. Normal alignment. Prior fusion of the 2nd and 3rd tarsometatarsal joints. RAD/Toe(s) Min 2 Views IMPRESSION: No acute fracture is seen. Reading Location: [facility]
[2024-09-04] MEDS: 0.9% Normal Saline (1000mL) 1,000 ML 1000 ML IV (11:08)
[2024-09-04 11:19] LABS: Absolute Lymphocyte Count 0.41 X10^3/uL (0.83-4.51); Absolute Neutrophil Count 13.8 X10^3/uL (2.0-7.7); Basophil# 0.02 X10^3/uL; Basophil% 0.1 % (0-1); Hematocrit 22.7 % (40-54); Hemoglobin 7.2 g/dL (13.0-16.5); Lymphocyte # 0.41 X10^3/ul (0.83-4.51); Lymphocyte % 2.7 % (19-41); Mean Corp Hgb Conc 31.7 g/dL (32-36); Mean Corpuscular Hgb 27.7 pg (27.0-32.0); Mean Corpuscular Volume 87.3 fL (80-94); Mean Platelet Vol. 10.1 fl (6.2-12.0); Monocyte# 0.84 X10^3/uL; Monocyte% 5.5 % (0-10); NRBC Flagged by Analyzer 0 % (0-5); Neutrophil % 90.2 % (47-70); POSITIVE DIFFERENTIAL YES; Platelet Count 235 K/mm3 (150-450); RBC Distribution Width CV 16.9 % (11.6-14.6); RBC Distribution Width SD 53.2 fl (35.1-43.9); White Blood Count 15.3 K/mm3 (4.4-11.0)
[2024-09-04 12:14] LABS: Anion Gap 14 (5-15); BUN 8 mg/dL (4-19); BUN/Creat Ratio 8.3 RATIO (10-20); Calcium,Total 8.4 mg/dL (7.6-11.0); Carbon Dioxide 29.8 mmol/L (21.0-32.0); Chloride 80 mmol/L (98-108); Creatinine, Serum 0.94 mg/dL (0.70-1.20); EST Glomerular Filtration Rate 89 (>60); Glucose 280 mg/dL (70-99); Lactic Acid 2.9 mmol/L (0.0-2.0); Potassium 2.5 mmol/L (3.3-5.1); Sodium Level 124 mmol/L (133-145)
[2024-09-04] MEDS: 0.9% Normal Saline (1000mL) 1,000 ML 999 ML IV ×2 (12:26→12:34)
[2024-09-04] MEDS: Piperacil/Tazobactam 4.5 GM in 0.9% Normal Saline (100mL MB+) 100 ML IV (12:34)
[2024-09-04 12:47] LABS: Bacteria 0 SEEN /hpf (None Seen); Mucous, Urine 0 SEEN /hpf (<or=2+)
[2024-09-04 13:05] LABS: Color, Urine Yellow (Yellow); Glucose, Dipstick 50 mg/dl (Normal); Ketone-Dipstick Negative (Negative); Leukocyte Esterase-Dipstick Negative /ul (Negative); Nitrite-Dipstick Negative (Negative); Occult Blood-Urine 10 /ul (Negative); Protein-Dipstick 30 mg/dl (Negative); Urine Bilirubin Dipstick Negative (Negative); Urine Clarity Clear (Clear); Urine Urobilinogen Normal (Normal)
[2024-09-04 13:11] LABS: Red Blood Cells-Urine 0-5 SEEN /hpf (0-5); Squamous Epithelial Cells - UA 0-5 SEEN /hpf (0-5); White Blood Cells 0-5 SEEN /hpf (0-5)
[2024-09-04] MEDS: Potassium Chloride 20mEq/100mL 20 MEQ/100 ML IV.SOLN. 50 MEQ IV BOLUS ×2 (14:13→16:37)
--- NOTE | 2024-09-04 14:32 | CT_ITS ---
PROCEDURE: CT CHEST, ABD, PEL W/CONTRAST 09/04/2024 REASON FOR EXAM: SEPSIS OF UNKNOWN ORIGIN, IV CONTRAST ONLY TECHNIQUE: Chest, abdomen and pelvis CT with intravenous contrast. Coronal and Sagittal reconstruction series were provided. One or more dose reduction techniques were used (e.g., Automated exposure control, adjustment of the mA and/or kV according to patient size, use of iterative reconstruction technique. PATIENT PREPARATION: Per protocol ORAL CONTRAST TYPE: None CONTRAST: Isovue-300 VOLUME: 95mL Gauge IV RADIATION DOSE SUMMARY: CTDlvol: 14.6 mGy DLP: 1528.71 mGycm COMPARISON: Prior chest radiograph dated September 04, 2024. FINDINGS: CT CHEST: Hardware: EKG electrodes are seen. Lymph nodes: Enlarged necrotic left axillary lymph nodes. The largest lymph node measures 2.3 cm. Heart and Vasculature: Prior CABG. Coronary artery calcification. Lungs and Airways: Heterogeneous consolidation in the left upper lobe with areas of necrosis. Left hilar lymphadenopathy. Atelectasis and volume loss in the right upper lobe. Irregular nodule in the posterior medial segment of the right lower lobe measuring 1 cm. Pleural-based subcentimeter nodules seen in the right lateral pleural space. There is a 2 cm mass in the left adrenal gland. Pleura: No pleural effusion. Bones: Degenerative changes of the thoracic spine. Loss of height of the T12 CT ABDOMEN/PELVIS: Liver: Normal size. No mass. Gallbladder: Mild distention of the gallbladder. Spleen: Normal size. Pancreas: Normal size without evidence of mass surrounding inflammation or ductal dilation. Adrenals: Left adrenal mass measuring 2.7 cm. Kidneys: Unremarkable Bladder: Distended urinary bladder. Central prostatic calcifications. Bowel: Colonic diverticulosis without diverticulitis. Appendix: The appendix is not identified. There is no inflammatory process identified in the right lower quadrant to suggest appendicitis. Lymph nodes: Small lymph nodes are seen in the retroperitoneum. Vasculature: Atherosclerotic plaque formation of the abdominal aorta with a transverse dimension of 3.5 cm in the distal portion of the abdominal aorta with mural thrombus. Peritoneum / Retroperitoneum: Unremarkable Bones: Degenerative changes of the spine. CT/CT Chest, Abd, Pel w/Contrast IMPRESSION: Heterogeneous consolidation in the left upper lobe with a central necrosis and left hilar lymphadenopathy. A neoplastic process should be ruled out. Tiny nodules in the right lung as described. Left adrenal mass suggestive of possible metastasis. Reading Location: [id number]
--- NOTE | 2024-09-04 14:44 | PCM.HP.STD ---
HPI - General General Date of Admission: 09/04/24 Date of Service: 09/04/24 Chief Complaint: fall, generalized weakness HPI Narrative REY MEAD, is a 69-year-old male with history of ELLEN, lung cancer on radiation, COPD, BPH, diabetes, GERD, anxiety, CAD who presented to [facility] ED 09/06/2024 via EMS after a fall today. His friend was taking him to his radiation appointment as he is receiving radiation therapy on his right lung and when he was getting out of the truck he was transferring to the wheelchair and his legs gave out and he fell to the ground but he did not strike his head. Reportedly he was pale and possibly had eyes rolled back into his head per a bystander but he denies loss of consciousness. Reportedly fell 3 times in the past 24 hours and has some generalized weakness. Did note fever today and endorsed he injured his left small toe 3 days ago. On arrival temperature 100.9 which increased to 102.6, heart rate 122 and blood pressure initially 108/62 but down trended to 85/65. White blood cell count 15.3 with hemoglobin of 7.2 with a baseline in the 11 range. Chest x-ray with stable nodular density and/or infiltrate left upper lobe. X-ray of toe and pelvis unremarkable. Patient's BMP with a sodium of 124, potassium 2.5 and glucose 280, lactic acid 2.9. UA not suggestive of UTI. Patient diagnosed with concerns for sepsis and given fluids and antibiotics and hospitalist contacted for admission. Patient evaluated at bedside, he reports he has felt somewhat weak for the past day but denies any increased shortness of breath, no cough, denies fevers at home, the only thing he reports is some intermittent achy abdominal pain for the past 2 days that can last up to a couple hours at a time but is not presently having any, has chronic diarrhea but denies any change in this, no blood in his stool, no urinary changes, did hit left fifth toe on something several days ago and this has become discolored but denies any drainage from this. Currently laying in bed patient reports he is feeling fine and is feeling somewhat better after fluids. No other new or acute complaints. [facility] Medical History Alcohol use Excessive bleeding History of echocardiogram History of stress test Cardiology follow-up encounter Chest pain Vitamin D deficiency Left adrenal mass CAD (coronary artery disease) Blind Cancer Depression Anxiety Diabetes Prostate disease DVT (deep venous thrombosis) High cholesterol Easy bruising Umbilical hernia Neuropathy Injury of head and neck Syncope Former smoker On home oxygen therapy CPAP (continuous positive airway pressure) dependence COPD (chronic obstructive pulmonary disease) Shortness of breath on exertion History of edema Hypertension Home Medications ?Medication ?Instructions ?Recorded ?Last Taken ?Type albuterol sulfate 2.5 mg/3 mL 2.5 mg inhalation DAILY 01/08/23 09/03/24 History (0.083 %) solution for nebulization albuterol sulfate 90 mcg/actuation 2 puff inhalation PRN PRN 01/08/23 05/30/24 History aerosol inhaler shortness of breath or wheezing aspirin 81 mg tablet,delayed 81 mg PO DAILY 01/08/23 09/04/24 History release atorvastatin 20 mg tablet 20 mg PO QHS 01/08/23 09/03/24 History dapagliflozin propanediol 5 mg 5 mg PO DAILY 01/08/23 09/03/24 History tablet (Farxiga) fluticasone fur. 100 mcg-umeclid 1 inh inhalation DAILY 01/08/23 09/03/24 History 62.5 mcg-vilant 25 mcg inhalat.powder (Trelegy Ellipta) furosemide 40 mg tablet 40 mg PO DAILY 01/08/23 09/04/24 History paroxetine HCl 10 mg tablet 10 mg PO DAILY 01/08/23 09/04/24 History pregabalin 150 mg capsule 150 mg PO DAILY 01/08/23 09/04/24 History roflumilast 250 mcg tablet 250 mcg PO DAILY 01/08/23 09/04/24 History tamsulosin 0.4 mg capsule 0.4 mg PO Q24H 01/08/23 09/04/24 History metformin 500 mg tablet,extended 1,500 mg PO QHS 03/22/24 09/04/24 History release 24hr (osmotic) gabapentin 300 mg capsule 300 mg PO QHS 05/10/24 09/03/24 History lorazepam 1 mg tablet 1 mg PO TID #90 tabs 07/04/24 Unknown Rx esomeprazole magnesium 40 mg 40 mg PO DAILY 09/04/24 09/03/24 History capsule,delayed release insulin lispro protamine-lispro 15 unit subcut BIDCM 09/04/24 09/04/24 History 100 unit/mL (75-25) subcutaneous pen (Humalog Mix 75-25 KwikPen) metoprolol succinate 25 mg 25 mg PO DAILY 09/04/24 09/04/24 History tablet,extended release 24 hr oxycodone 5 mg tablet 5 - 10 mg PO Q6H PRN PRN pain 09/04/24 Unknown History prednisone 5 mg tablet 15 mg PO DAILY 09/04/24 Unknown History semaglutide 7 mg tablet (Rybelsus) 7 mg PO DAILY 09/04/24 09/04/24 History vitamin B complex (Complex B-100 1 tab PO DAILY 09/04/24 09/04/24 History tablet,extended release) Allergy/AdvReac Type Severity Reaction Status Date / Time No Known Allergies Allergy Verified 07/24/24 10:03 Family History Mother Cancer LUNG Heart disease Father Cancer lung Sister Cancer lung Heart disease Sister Cancer lung Sister Cancer lung Sister Colon cancer Surgical History Hx of fracture of leg Hx of fracture of foot History of bronchoscopy Hx of biopsy History of lobectomy of lung Hx of oral surgery History of open heart surgery (05/08/15) Social History household members: none 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 Smoking Status: Former smoker quit date: 03/15/15 pack-years: 120 alcohol intake: current alcohol intake frequency: a few times a month Alcohol type: beer substance use type: does not use what type of physical activity do you participate in: none seatbelt use: always do you feel safe at home: Yes ROS ROS Narrative General: Denies fever/chills HENT: Denies headache, denies stuffy nose, denies sore throat EYES: Denies changes in vision Resp: Denies cough, denies shortness of breath Cardiac: Denies chest pain GI: Some chronic diarrhea, no blood in stool, some intermittent centralized abdominal aching off-and-on for the past 2 days lasting up to a couple hours at a time, denies nausea/vomiting : Denies changes in urination Extremity: Denies swelling MSK: Generalized weakness Neuro: Has some chronic neuropathy in his feet Heme: Denies any bleeding or bruising Skin: Does have some discoloration to left fifth toe Psychiatric: No complaints voiced Vital Signs Vital Signs Vital Signs: 09/04/24 10:31 09/04/24 10:39 09/04/24 11:51 Temperature 100.9 F H 102.6 F H Temperature Source Oral Oral Pulse Rate 122 H 107 H Respiratory Rate 12 22 H Respiratory Effort Normal Respiratory Depth Normal Respiratory Pattern Normal Blood Pressure 108/62 92/55 L Blood Pressure Mean 77 67 Pulse Ox 93 93 93 Oxygen Delivery Method Room Air Room Air Room Air 09/04/24 12:40 09/04/24 14:00 Temperature 102.6 F H Temperature Source Oral Pulse Rate 108 H 113 H Respiratory Rate 18 18 Respiratory Effort Respiratory Depth Respiratory Pattern Blood Pressure 85/65 L 96/62 Blood Pressure Mean 71 73 Pulse Ox 95 92 Oxygen Delivery Method Room Air Room Air Weight Weight: 84 kg Body Mass Index (BMI) 24.4 Physical Exam Narrative General: Alert, oriented, no apparent distress HEENT: Atraumatic, normocephalic Eyes: Anicteric, normal conjunctiva Neck: Supple Respiratory: Normal respiratory effort, somewhat diminished bilaterally Cardiovascular: Low-grade sinus tachycardia GI: Soft, nontender, nondistended Extremities: No edema Musculoskeletal: Moving all extremities Neuro: No overt focal neurological deficits Skin: Does have discoloration to left fifth toe without any significant tenderness on palpation per patient no discharge Psych: Cooperative Results Lab / Micro Data 09/04/24 11:00 09/04/24 11:00 Labs: Laboratory Results - last 24 hr 09/04/24 11:00: WBC 15.3 H, RBC 2.60 L, Hgb 7.2 L, Hct 22.7 L, MCV 87.3, MCH 27.7, MCHC 31.7 L, RDW Std Deviation 53.2 H, RDW Coeff of Jaquan 16.9 H, Plt Count 235, MPV 10.1, Immature Gran % (Auto) 1.500 H, Neut % (Auto) 90.2 H, Lymph % (Auto) 2.7 L, [place] % (Auto) 5.5, Eos % (Auto) 0.0, Baso % (Auto) 0.1, Absolute Neuts (auto) 13.8 H, Absolute Lymphs (auto) 0.41 L, Nucleated RBC % 0, Sodium 124 L, Potassium 2.5 L*, Chloride 80 L, Carbon Dioxide 29.8, Anion Gap 14, BUN 8, Creatinine 0.94, Estim Creat Clear Calc 85.00, Est GFR (MDRD) Non-Af 89, BUN/Creatinine Ratio 8.3 L, Glucose 280 H, Lactic Acid 2.9 H*, Calcium 8.4 09/04/24 12:40: Urine Color Yellow, Urine Clarity Clear, Urine pH 6.0, Ur Specific Melvin 1.010, Urine Protein 30 H, Urine Glucose (UA) 50 H, Urine Ketones Negative, Urine Occult Blood 10 H, Urine Nitrite Negative, Urine Bilirubin Negative, Urine Urobilinogen Normal, Ur Leukocyte Esterase Negative, Urine RBC 0-5 SEEN, Urine WBC 0-5 SEEN, Ur Squamous Epith Cells 0-5 SEEN, Urine Bacteria 0 SEEN, Urine Mucus 0 SEEN Micro: Microbiology 09/04/24 11:06 Mucosa - Nose SARS-CoV-2, Influenza & RSV (PCR) - Final Imaging Radiology Impression Chest X-Ray 09/04/24 11:02 IMPRESSION: Stable examination with evidence of hyperinflation and pulmonary hypertension. Stable nodular density and/or infiltrate in the left upper lobe. Reading Location: [id number] Pelvis X-Ray 09/04/24 11:06 IMPRESSION: No acute abnormality is seen. Dense atherosclerotic calcification of the abdominal aorta and iliac arteries. Reading Location: [id number] Toe X-Ray 09/04/24 11:06 IMPRESSION: No acute fracture is seen. Reading Location: [facility] Assessment & Plan Assessment/Plan (1) Sepsis: PLAN: Plan # Suspect sepsis, unclear source -Patient hypotensive, febrile, tachycardic, with a lactic acid of 2.9 with an elevated white blood cell count of 15.3 -Chest x-ray reported stable nodular density -UA not infectious appearing -COVID/flu/RSV negative -Blood culture sent -CT chest/abdomen/pelvis with contrast ordered due to sepsis of unknown origin, read is pending -Patient given 3 L of IV fluids, blood pressure is improving -Started on Zosyn, will continue broad-spectrum antibiotics with vancomycin in addition due to unclear source of sepsis and narrow pending culture results - Of note did add stool studies as patient reports he has had diarrhea over the past month # Hypokalemia -Patient's potassium 2.5 -Replaced -Will repeat to verify improvement #Hx COPD -Continue home inhalers -Incentive spirometer # Left toe discoloration -Patient hit his left fifth toe several days ago and is somewhat purple, denies any drainage, does have some neuropathy but reports it is not overtly painful. -X-ray of foot unremarkable -Will consult wound care -Low threshold to consult podiatry if needed # Lung cancer -Presently undergoing radiation for his left lung -Does have previous right lobectomy - Follows with Dr. Valdemar Gutierrez on an outpatient basis #Chronic BPH with obstruction -Continue home medications - has very distended bladder on CT scan, bladder was also significantly distended on CT from several months ago, will order postvoid and may need Hollis if he is indeed retaining # Acute on chronic anemia -Hemoglobin 7.2, previously 11.9 2 months ago -No overt bleeding appreciated -Will obtain iron panel and ferritin -B12 and folate -Will check reticulocyte panel # History of CAD with CABG in 2016 -Patient on aspirin, statin, beta-yajaira, unless overt bleeding/discovery the patient is bleeding or further decreases in hemoglobin will continue aspirin #Type 2 diabetes mellitus -Glucose checks and sliding scale insulin -Will continue long-acting insulin but a slightly lower dose to verify no hypoglycemia, uptitrate as tolerated #GERD -Continue PPI # Anxiety -Continue home medications #DVT ppx: SCDs given low hemoglobin Serina Juan MD Sepsis Attestation Sepsis Alert: Yes Sepsis Attestation: Agree w/Sepsis Date exam was performed: 09/04/24 Time exam was performed: 14:20 Possible Source of Sepsis: Unknown Sepsis Organ Dysfunction Criteria Present: SBP < 90 mmHg or MAP < 65 mmHg and Lactic Acid > 2 mmol/L Supportive Findings: Febrile, hypotensive, tachycardic, elevated white blood cell count, elevated lactic acid Fluid Resuscitation Fluid resuscitation indicated?: Yes Fluid Resuscitation ordered: 30 ml/kg fluid bolus ordered Charges/Coding Visit Charges Inpatient E&M: 62038 Init Hosp L2
[2024-09-04 15:12] LABS: Reflex Lactate? Y
--- NOTE | 2024-09-04 15:26 | CASEMGMT ---
Care Management Face to Face with patient for initial transition planning/care coordination assessment in the ED.? This blog writer introduced self and role at [facility]. Patient alert and oriented. Patient willing to participate in assessment and is able to answer all questions appropriately.? Care providers, pharmacy, and demographics verified. Admitting Diagnosis: Sepsis Other diagnosis history: ?Cancer, diabetes, prostate disease, DVT, neuropathy, COPD PCP: Therese Specialists: ?oncology Pref[facility] Insurance: ?[employer] Prescription Benefit: [employer] Living Will/HPOA: ?none LNOK: sons Living Arrangements: ?Patient lives alone in a mobile home, reports to being independent until his leg started hurting last week, having some trouble with ambulation Transportation: patients friend DME: CPap with oxygen, 3 liters at night , walker, blood pressure cuff [facility]: [facility] SNF/Rehab: none Community Resources: none Behavioral Health History: depression, anxiety Patient goals: Patient would?like HH if able. Patient denies any further needs or concerns at this time. Disposition Plan: admission to acute; RN CM/SW to follow for discharge planning needs that may arise. Georgie Marquez, TRANSPORT AIDE, TOLL RELIEF OPERATOR
[2024-09-04] MEDS: 0.9% Normal Saline (1000mL) 1,000 ML 100 ML IV (17:04)
[2024-09-04 17:25] LABS: Bedside Glucose 152 mg/dL (74-106)
[2024-09-04] MEDS: Vancomycin HCl 1,250 MG in 0.9% Normal Saline (250mL Bag) 250 ML 167 MG IV (17:45)
[2024-09-04 17:47] LABS: Ferritin 1172 ng/mL (37-417); Vitamin B12 690 pg/mL (180-914)
[2024-09-04 17:50] LABS: Anion Gap 10 (5-15); BUN 7 mg/dL (4-19); BUN/Creat Ratio 7.5 RATIO (10-20); Calcium,Total 8.1 mg/dL (7.6-11.0); Carbon Dioxide 30.3 mmol/L (21.0-32.0); Chloride 89 mmol/L (98-108); Creatinine, Serum 0.87 mg/dL (0.70-1.20); EST Glomerular Filtration Rate 94 (>60); Estimated Creatinine Clearance 61.49 ml/min (50-250); Glucose 158 mg/dL (70-99); Potassium 2.4 mmol/L (3.3-5.1); Sodium Level 129 mmol/L (133-145)
[2024-09-04] MEDS: 0.9% Saline Lock 10 ML Syringe IV (18:06)
[2024-09-04] MEDS: Menthol/Lanolin/Calamine/Znox 113 GM Tube 1 APPLIC TOPICAL ×2 (18:16→21:18)
[2024-09-04] MEDS: Metoprolol(XL)Succ 25 MG Tablet 12.5 MG PO (18:16)
[2024-09-04] MEDS: Insulin Human 75/25 Kwickpen 12 UNIT SC (18:20)
[2024-09-04 18:29] LABS: Lactic Acid 1.1 mmol/L (0.0-2.0)
--- NOTE | 2024-09-04 18:32 | PCM.RX.CS ---
Consult Antibiotic Management Pharmacy has been consulted to manage selected antibiotic: Vancomycin Type of Intervention Type of Consult: New start Suspected Infection Suspected Infection: Pneumonia Prior Doses of Antibiotics Prior Doses of Antibiotics Received/Current Regimen: 09/04/24 @ 4696 VAncomycin 1250mg x1 Labs Labs: Sodium 129 mmol/L (133-145) L 09/04/24 16:47 Potassium 2.4 mmol/L (3.3-5.1) L* 09/04/24 16:47 Chloride 89 mmol/L (98-108) L 09/04/24 16:47 Carbon Dioxide 30.3 mmol/L (21.0-32.0) 09/04/24 16:47 Anion Gap 10 (5-15) 09/04/24 16:47 BUN 7 mg/dL (4-19) 09/04/24 16:47 Creatinine 0.87 mg/dL (0.70-1.20) 09/04/24 16:47 Est GFR (MDRD) Non-Af 94 (>60) 09/04/24 16:47 BUN/Creatinine Ratio 7.5 RATIO (10-20) L 09/04/24 16:47 Glucose 158 mg/dL (70-99) H 09/04/24 16:47 Microbiology Microbiology: Microbiology 09/04/24 11:06 Mucosa - Nose SARS-CoV-2, Influenza & RSV (PCR) - Final Dosing Weight Weight used for dosin kg Estimated Creatinine Clearance Estimated Creatinine Clearance: 85 Goal Trough Goal Trough: 15-20 mcg/mL Pharmacy Plan for Drug Dosing Pharmacy Plan for Drug Dosing: Vancomycin 1000mg every 12 hours Pharmacy Service will continue to monitor and adjust dosing as required. Follow-Up Labs Follow-Up Labs: Trough: Vancomycin Date/Time Labs Ordered Labs to be done on [date and time ordered]: 09/06/24 @ 9198
[2024-09-04] MEDS: Albuterol 2.5 MG/3 ML VIAL.NEB. INHALATION (18:56)
[2024-09-04] MEDS: Budesonide Respules 0.5 MG/2 ML AMPUL.NEB. INHALATION (18:56)
[2024-09-04] MEDS: Potassium Chloride 10mEq/100mL 10 MEQ/100 ML IV.SOLN. 100 MEQ IV BOLUS (19:01)
[2024-09-04] MEDS: Potassium Chloride Oral Tablet 20 MEQ 40 MEQ PO (19:01)
[2024-09-04] MEDS: oxyCODONE 5 MG Tablet PO (20:06)
[2024-09-04] MEDS: LORazepam 0.5 MG Tablet PO (20:06)
[2024-09-04] MEDS: MELATONIN 3 MG TABLET 10 MG PO (20:07)
[2024-09-04] MEDS: Piperacil/Tazobactam 3.375 GM in 0.9% Normal Saline (50mL MB+) 50 ML IV (21:18)
[2024-09-04] MEDS: Acetaminophen 325 MG Tablet 650 MG PO (21:18)
[2024-09-04 21:21] LABS: Platelet Count 192 K/mm3 (150-450); RET-HE 25.2 pg (30-35); Reticulocyte Count 2.23 % (0.5-1.5)
[2024-09-04] MEDS: Insulin Lispro 100 UNIT/ML INSULN.PEN SC (21:23)
[2024-09-04] MEDS: Atorvastatin Calcium 20 MG Tablet PO (21:23)
[2024-09-04] MEDS: Gabapentin 300 MG Capsule PO (21:23)
[2024-09-04 21:51] LABS: Bedside Glucose 197 mg/dL (74-106)
[2024-09-04] MEDS: Lactated Ringers 1,000 ML 100 ML IV (22:16)
[2024-09-04] MEDS: Ondansetron 4 MG/2 ML Vial IV (22:31)
[2024-09-05] VITALS (51 sets, daily range): BP systolic 74–151; BP diastolic 37–82; PULSE 79–113; RESP 14–26; TEMP 36.6–38.7; O2SAT 92–100; BMI 17.2
[2024-09-05] MEDS: Norepinephrine 8 MG in 0.9% Normal Saline (250mL Bag) 242 ML 9.4 MG CONT INF (01:00)
[2024-09-05] MEDS: Acetaminophen 325 MG Tablet 650 MG PO ×3 (03:39→18:47)
[2024-09-05] MEDS: Vancomycin IV 1,000 MG/200 ML BAG 200 MG IV (05:48)
[2024-09-05] MEDS: Piperacil/Tazobactam 3.375 GM in 0.9% Normal Saline (50mL MB+) 50 ML IV ×3 (05:48→21:45)
[2024-09-05 06:28] LABS: Absolute Lymphocyte Count 0.28 X10^3/uL (0.83-4.51); Absolute Neutrophil Count 7.1 X10^3/uL (2.0-7.7); Basophil# 0.02 X10^3/uL; Basophil% 0.2 % (0-1); Hematocrit 22.4 % (40-54); Hemoglobin 6.8 g/dL (13.0-16.5); Lymphocyte # 0.28 X10^3/ul (0.83-4.51); Lymphocyte % 3.4 % (19-41); Mean Corp Hgb Conc 30.4 g/dL (32-36); Mean Corpuscular Hgb 27.4 pg (27.0-32.0); Mean Corpuscular Volume 90.3 fL (80-94); Mean Platelet Vol. 10.2 fl (6.2-12.0); Monocyte# 0.54 X10^3/uL; Monocyte% 6.7 % (0-10); NRBC Flagged by Analyzer 0 % (0-5); Neutrophil # 7.11 X10^3/uL (2.7-7.7); Neutrophil % 87.6 % (47-70); POSITIVE DIFFERENTIAL YES; Platelet Count 160 K/mm3 (150-450); RBC Distribution Width CV 17.2 % (11.6-14.6); RBC Distribution Width SD 56.8 fl (35.1-43.9); Red Blood Count 2.48 M/mm3 (4.6-6.2); White Blood Count 8.1 K/mm3 (4.4-11.0)
[2024-09-05] MEDS: Albuterol 2.5 MG/3 ML VIAL.NEB. INHALATION (06:38)
[2024-09-05] MEDS: Budesonide Respules 0.5 MG/2 ML AMPUL.NEB. INHALATION ×2 (06:38→19:09)
[2024-09-05 06:46] LABS: Anion Gap 9 (5-15); BUN 4 mg/dL (4-19); BUN/Creat Ratio 6.4 RATIO (10-20); Calcium,Total 7.9 mg/dL (7.6-11.0); Chloride 94 mmol/L (98-108); Creatinine, Serum 0.69 mg/dL (0.70-1.20); EST Glomerular Filtration Rate 101 (>60); Glucose 222 mg/dL (70-99); Iron 17 ug/dL (65-175); Iron Binding Capacity,Unsat 104 ug/dL (228-428); Sodium Level 131 mmol/L (133-145)
--- NOTE | 2024-09-05 06:48 | EX.PCM.CONCC ---
Assessment & Plan Assessment/Plan (1) Sepsis: (2) Acute hyponatremia: (3) Acute hypokalemia: (4) Weakness: (5) Anemia: (6) COPD (chronic obstructive pulmonary disease): QUALIFIERS: COPD type: unspecified COPD Qualified Code(s): J44.9 - Chronic obstructive pulmonary disease, unspecified PLAN: Plan RECOMMENDATIONS: 1. Continue to wean Levophed to maintain a mean arterial pressure at or above 65 mmHg. 2. Continue empiric antimicrobials, pending culture results. 3. Continue supplemental IV fluid hydration. 4. Aggressive electrolyte repletion. 5. Transfuse packed red blood cells as ordered. Check H&H posttransfusion. 6. Check stool for occult blood. If positive, will place consultation to gastroenterology. 7. PPI therapy twice daily. 8. Continue bronchodilator therapy and steroids. 9. Encourage incentive spirometer use and mobilize patient as tolerated. IMPRESSIONS: 1. Septic shock Clinical concern for left upper lobe pneumonia as precipitating etiology. The patient ultimately developed fluid refractory hypotension, which required the initiation of vasopressor support to maintain hemodynamic stability. Plan to continue empiric antimicrobials, pending culture workup. 2. Acute on chronic anemia The patient's anemia has been worsening with time and his hemoglobin is now less than 7 g/dL. In light of these findings, we will plan to transfuse 1 unit of packed red blood cells. Recommend checking H&H posttransfusion. PPI therapy will be initiated twice daily. Gastroenterology consultation will be obtained. 3. Hypovolemic hyponatremia/hypokalemia Continue gentle IV fluid hydration. Sodium is improving with volume expansion. Electrolyte repletion as ordered. 4. History of COPD/unspecified lung cancer amidst radiation treatment/obstructive sleep apnea on CPAP Agree with continuing scheduled bronchodilators and IV steroids as ordered. Orders have been placed for nocturnal CPAP therapy per home regimen. 5. History of coronary artery disease status post CABG/diabetes mellitus/GERD/anxiety/BPH Complicates care, management, recovery and prognosis. Continue supportive measures as noted above. TIME: 38 minutes of critical care time, independent of procedures, was spent addressing the patient's septic shock, acute on chronic anemia, hyponatremia, review of all data and collaboration with the care team. HPI Consult Data Date of Consult: 09/05/24 HPI Narrative Reason for Consultation: Sepsis HPI Narrative: The patient is a 69-year-old male, with a history as outlined below, who presented to the emergency department via EMS on September 04 after collapsing when exiting his pickup truck. The patient reported that he had arrived to the hospital in order to proceed with his radiation treatments for his known lung cancer history. The patient is currently receiving all of his cancer related care through the [facility]. He stated that he is currently admits to radiation treatment and has not received any chemotherapy. Details pertinent to the nature of his lung cancer history are not available. The patient does report a history of COPD which is currently managed by Dr. Hurd on an outpatient basis. In addition, the patient has a known history of obstructive sleep apnea and is prescribed nocturnal CPAP therapy with a pressure support of 11 cm of water +3 L/min. On presentation to the emergency department, the patient was documented to be febrile, tachycardic and tachypneic. Laboratory evaluation was notable for a white blood cell count of 15,000. Hemoglobin was down to 7.2 g/dL. Platelet count was within normal limits. Chemistry profile was notable for a sodium of 124, potassium of 2.5 and creatinine of 0.94. Lactate was elevated at 2.9. Urine analysis was unremarkable. CT chest/abdomen/pelvis was obtained. There was evidence of a left upper lobe consolidation with central area of necrosis along with left hilar adenopathy. An additional 2 cm mass was noted on the left adrenal gland. The patient was subsequently ordered to receive supplemental IV fluid hydration and was started on antimicrobial therapy along with scheduled bronchodilators. The patient was admitted to the medical intensive care unit for further management. Overnight, due to persistent hypotension, the patient was initiated on vasopressor support. He is currently requiring Levophed at 4 mcg/min to maintain hemodynamic stability. The patient is currently documented to be overall net +1.4 L for the hospitalization. Hemoglobin is low at 6.8 g/dL. Sodium has improved to 131 with a potassium of 3.0. [facility] Medical History Alcohol use Excessive bleeding History of echocardiogram History of stress test Cardiology follow-up encounter Chest pain Vitamin D deficiency Left adrenal mass CAD (coronary artery disease) Blind Cancer Depression Anxiety Diabetes Prostate disease DVT (deep venous thrombosis) High cholesterol Easy bruising Umbilical hernia Neuropathy Injury of head and neck Syncope Former smoker On home oxygen therapy CPAP (continuous positive airway pressure) dependence COPD (chronic obstructive pulmonary disease) Shortness of breath on exertion History of edema Hypertension Home Medications ?Medication ?Instructions ?Recorded ?Last Taken ?Type albuterol sulfate 2.5 mg/3 mL 2.5 mg inhalation DAILY 01/08/23 09/03/24 History (0.083 %) solution for nebulization albuterol sulfate 90 mcg/actuation 2 puff inhalation PRN PRN 01/08/23 05/30/24 History aerosol inhaler shortness of breath or wheezing aspirin 81 mg tablet,delayed 81 mg PO DAILY 01/08/23 09/04/24 History release atorvastatin 20 mg tablet 20 mg PO QHS 01/08/23 09/03/24 History dapagliflozin propanediol 5 mg 5 mg PO DAILY 01/08/23 09/03/24 History tablet (Farxiga) fluticasone fur. 100 mcg-umeclid 1 inh inhalation DAILY 01/08/23 09/03/24 History 62.5 mcg-vilant 25 mcg inhalat.powder (Trelegy Ellipta) furosemide 40 mg tablet 40 mg PO DAILY 01/08/23 09/04/24 History paroxetine HCl 10 mg tablet 10 mg PO DAILY 01/08/23 09/04/24 History pregabalin 150 mg capsule 150 mg PO DAILY 01/08/23 09/04/24 History roflumilast 250 mcg tablet 250 mcg PO DAILY 01/08/23 09/04/24 History tamsulosin 0.4 mg capsule 0.4 mg PO Q24H 01/08/23 09/04/24 History metformin 500 mg tablet,extended 1,500 mg PO QHS 03/22/24 09/04/24 History release 24hr (osmotic) gabapentin 300 mg capsule 300 mg PO QHS 05/10/24 09/03/24 History lorazepam 1 mg tablet 1 mg PO TID #90 tabs 07/04/24 Unknown Rx esomeprazole magnesium 40 mg 40 mg PO DAILY 09/04/24 09/03/24 History capsule,delayed release insulin lispro protamine-lispro 15 unit subcut BIDCM 09/04/24 09/04/24 History 100 unit/mL (75-25) subcutaneous pen (Humalog Mix 75-25 KwikPen) metoprolol succinate 25 mg 25 mg PO DAILY 09/04/24 09/04/24 History tablet,extended release 24 hr oxycodone 5 mg tablet 5 - 10 mg PO Q6H PRN PRN pain 09/04/24 Unknown History prednisone 5 mg tablet 15 mg PO DAILY 09/04/24 Unknown History semaglutide 7 mg tablet (Rybelsus) 7 mg PO DAILY 09/04/24 09/04/24 History vitamin B complex (Complex B-100 1 tab PO DAILY 09/04/24 09/04/24 History tablet,extended release) Allergy/AdvReac Type Severity Reaction Status Date / Time No Known Allergies Allergy Verified 07/24/24 10:03 Family History Mother Cancer LUNG Heart disease Father Cancer lung Sister Cancer lung Heart disease Sister Cancer lung Sister Cancer lung Sister Colon cancer Surgical History Hx of fracture of leg Hx of fracture of foot History of bronchoscopy Hx of biopsy History of lobectomy of lung Hx of oral surgery History of open heart surgery (05/08/15) Social History (Updated 09/04/24 @ 16:19 by Rachell Adamson) household members: none housing: other 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 Physical Exam Const alert, oriented x3 and no apparent distress General Appearance: cooperative HEENT normocephalic and head/scalp atraumatic Eyes PERRL, EOMs intact bilaterally and conjunctivae normal Neck supple General: trachea midline Chest inspection of chest normal Resp no use of accessory muscles Effort and Inspection: able to speak in complete sentences and tachypneic Auscultation: diminished lung sounds Cardio regular rate and regular rhythm GI normal to inspection, nondistended, normoactive bowel sounds Extremity no clubbing, cyanosis or edema Skin no rashes or lesions noted Neuro CN's II-XII intact bilaterally, moves all extremities and no focal motor deficits Psych cooperative and affect normal Lab / Micro Data 09/05/24 06:14 09/05/24 06:14 Labs: Laboratory Results - last 24 hr 09/04/24 11:00: WBC 15.3 H, RBC 2.60 L, Hgb 7.2 L, Hct 22.7 L, MCV 87.3, MCH 27.7, MCHC 31.7 L, RDW Std Deviation 53.2 H, RDW Coeff of Jaquan 16.9 H, Plt Count 235, MPV 10.1, Immature Gran % (Auto) 1.500 H, Neut % (Auto) 90.2 H, Lymph % (Auto) 2.7 L, Bacon % (Auto) 5.5, Eos % (Auto) 0.0, Baso % (Auto) 0.1, Absolute Neuts (auto) 13.8 H, Absolute Lymphs (auto) 0.41 L, Nucleated RBC % 0, Retic Count 2.23 H, Immature Retic Fraction 17.80 H, Retic Hgb Equivalent 25.2 L, Sodium 124 L, Potassium 2.5 L*, Chloride 80 L, Carbon Dioxide 29.8, Anion Gap 14, BUN 8, Creatinine 0.94, Estim Creat Clear Calc 85.00, Est GFR (MDRD) Non-Af 89, BUN/Creatinine Ratio 8.3 L, Glucose 280 H, Lactic Acid 2.9 H*, Calcium 8.4 09/04/24 12:40: Urine Color Yellow, Urine Clarity Clear, Urine pH 6.0, Ur Specific [place] 1.010, Urine Protein 30 H, Urine Glucose (UA) 50 H, Urine Ketones Negative, Urine Occult Blood 10 H, Urine Nitrite Negative, Urine Bilirubin Negative, Urine Urobilinogen Normal, Ur Leukocyte Esterase Negative, Urine RBC 0-5 SEEN, Urine WBC 0-5 SEEN, Ur Squamous Epith Cells 0-5 SEEN, Urine Bacteria 0 SEEN, Urine Mucus 0 SEEN 09/04/24 16:47: Sodium 129 L, Potassium 2.4 L*, Chloride 89 L, Carbon Dioxide 30.3, Anion Gap 10, BUN 7, Creatinine 0.87, Estim Creat Clear Calc 61.49, Est GFR (MDRD) Non-Af 94, BUN/Creatinine Ratio 7.5 L, Glucose 158 H, Calcium 8.1, Ferritin 1172 H, Vitamin B12 690 09/04/24 17:06: POC Glucose 152 H 09/04/24 17:50: Lactic Acid 1.1 09/04/24 21:17: POC Glucose 197 H 09/05/24 06:14: WBC 8.1, RBC 2.48 L, Hgb 6.8 L, Hct 22.4 L, MCV 90.3, MCH 27.4, MCHC 30.4 L, RDW Std Deviation 56.8 H, RDW Coeff of Jaquan 17.2 H, Plt Count 160, MPV 10.2, Immature Gran % (Auto) 2.100 H, Neut % (Auto) 87.6 H, Lymph % (Auto) 3.4 L, Bacon % (Auto) 6.7, Eos % (Auto) 0.0, Baso % (Auto) 0.2, Absolute Neuts (auto) 7.1, Absolute Lymphs (auto) 0.28 L, Nucleated RBC % 0, Sodium 131 L, Potassium 3.0 L, Chloride 94 L, Carbon Dioxide 28.0, Anion Gap 9, BUN 4, Creatinine 0.69 L, Estim Creat Clear Calc 66.00, Est GFR (MDRD) Non-Af 101, BUN/Creatinine Ratio 6.4 L, Glucose 222 H, Calcium 7.9, Iron 17 L, Iron Saturation 14.0, Unsaturated IBC 104 L Micro: Microbiology 09/04/24 11:00 Blood Culture (Wb) - Anticubital Left Blood Culture - Preliminary 09/04/24 19:26 Stool Enteric Bacteriology - Preliminary 09/04/24 19:26 Stool Clostridioides difficile (PCR) - Final 09/04/24 11:06 Mucosa - Nose SARS-CoV-2, Influenza & RSV (PCR) - Final Imaging Radiology Impression Chest X-Ray 09/04/24 11:02 IMPRESSION: Stable examination with evidence of hyperinflation and pulmonary hypertension. Stable nodular density and/or infiltrate in the left upper lobe. Reading Location: [id number] Pelvis X-Ray 09/04/24 11:06 IMPRESSION: No acute abnormality is seen. Dense atherosclerotic calcification of the abdominal aorta and iliac arteries. Reading Location: [facility] Toe X-Ray 09/04/24 11:06 IMPRESSION: No acute fracture is seen. Reading Location: [facility] Chest/Abdomen/Pelvis CT 09/04/24 14:32 IMPRESSION: Heterogeneous consolidation in the left upper lobe with a central necrosis and left hilar lymphadenopathy. A neoplastic process should be ruled out. Tiny nodules in the right lung as described. Left adrenal mass suggestive of possible metastasis. Reading Location: [facility] Charges/Coding Procedures Hospitalists Procedures: 32468 Critical Care 1st Hr
[2024-09-05 07:22] LABS: Iron Binding Capacity,Total 121 ug/dL (250-450)
[2024-09-05] MEDS: Potassium Chloride 10mEq/100mL 10 MEQ/100 ML IV.SOLN. 100 MEQ IV BOLUS ×4 (08:35→11:19)
[2024-09-05] MEDS: 0.9% Normal Saline (1000mL) 1,000 ML 125 ML IV ×2 (09:19→16:24)
[2024-09-05] MEDS: predniSONE 5 MG Tablet 15 MG PO (09:41)
[2024-09-05] MEDS: PARoxetine 10 MG Tablet PO (09:42)
[2024-09-05] MEDS: ROFLUMILAST 500 MCG TABLET 250 MCG PO (09:42)
[2024-09-05] MEDS: Tamsulosin HCl 0.4 MG Capsule PO (09:42)
--- NOTE | 2024-09-05 09:51 | WOUNDNOTE ---
wound photo: right buttock
--- NOTE | 2024-09-05 09:51 | WOUNDNOTE ---
wound photo: left 5th toe
--- NOTE | 2024-09-05 09:52 | WOUNDNOTE ---
wound photo: left 5th toe
--- NOTE | 2024-09-05 10:05 | CASEMGMT ---
RN CM to the pt room to follow up on DC planning. Pt states that he sees Dr. Gutierrez for Oncology. Pt states that his home oxygen is through [facility] TC to [facility] who reports that the pt's order states 3L HS only via CPAP. Per the ER SW note, pt was interested in HHC. This RN CM inquired about this at this time. However, pt declines the current need. Pt states that he plans to return home at the time of DC and also declines the need for OP Tx. Pt states that his friend will drive him home. Pt also states that he has a functioning glucometer with sufficient supplies to help care for his DM. Pt denies further questions or concerns now. PT is ordered and pending. CM to follow.
--- NOTE | 2024-09-05 10:06 | PN.HOSP_ITS ---
Reason for Visit Reason for Visit: Diagnoses Sepsis, unspecified organism (09/04/24) Subjective Subjective Saw patient at bedside this morning. Patient was pale and fatigued appearing but otherwise laying back comfortably in bed, conversing normally and in no acute distress. He denied any acute pain or discomfort. Denied any dark or bloody stools in the past weeks to months. Does report mild wheezing but no shortness of breath at rest. Denies any fevers or chills. No other acute concerns currently. Objective Data Objective Data Vital Signs: Vital Signs Temp Pulse Resp BP Pulse Ox O2 Del Method O2 Flow Rate 100.6 F H 99 23 H 96/44 L 94 Nasal Cannula 2 09/05/24 10:00 09/05/24 10:00 09/05/24 10:00 09/05/24 10:00 09/05/24 10:00 09/05/24 10:00 09/05/24 10:00 Oxygen Flow Rate (L/min) 2 Oxygen Delivery Method Nasal Cannula Weight: 52.8 kg Body Mass Index (BMI) 17.2 Intake & Output: Intake and Output for Last 24 Hours 09/03/24 09/04/24 09/05/24 23:59 23:59 23:59 Intake Total 4183.2 / 4183.2 1641.38 / 1641.38 Output Total 1700 / 1700 2024 / 2024 Balance 2483.2 / 2483.2 -383.62 / -383.62 Lab / Micro Data 09/05/24 06:14 09/05/24 06:14 Labs: Laboratory Results - last 24 hr 09/04/24 11:00: WBC 15.3 H, RBC 2.60 L, Hgb 7.2 L, Hct 22.7 L, MCV 87.3, MCH 27.7, MCHC 31.7 L, RDW Std Deviation 53.2 H, RDW Coeff of Jaquan 16.9 H, Plt Count 235, MPV 10.1, Immature Gran % (Auto) 1.500 H, Neut % (Auto) 90.2 H, Lymph % (Auto) 2.7 L, Jerome % (Auto) 5.5, Eos % (Auto) 0.0, Baso % (Auto) 0.1, Absolute Neuts (auto) 13.8 H, Absolute Lymphs (auto) 0.41 L, Nucleated RBC % 0, Retic Count 2.23 H, Immature Retic Fraction 17.80 H, Retic Hgb Equivalent 25.2 L, S odium 124 L, Potassium 2.5 L*, Chloride 80 L, Carbon Dioxide 29.8, Anion Gap 14, BUN 8, Creatinine 0.94, Estim Creat Clear Calc 85.00, Est GFR (MDRD) Non-Af 89, BUN/Creatinine Ratio 8.3 L, Glucose 280 H, Lactic Acid 2.9 H*, Calcium 8.4 09/04/24 12:40: Urine Color Yellow, Urine Clarity Clear, Urine pH 6.0, Ur Specific [place] 1.010, Urine Protein 30 H, Urine Glucose (UA) 50 H, Urine Ketones Negative, Urine Occult Blood 10 H, Urine Nitrite Negative, Urine Bilirubin Negative, Urine Urobilinogen Normal, Ur Leukocyte Esterase Negative, Urine RBC 0-5 SEEN, Urine WBC 0-5 SEEN, Ur Squamous Epith Cells 0-5 SEEN, Urine Bacteria 0 SEEN, Urine Mucus 0 SEEN 09/04/24 16:47: Sodium 129 L, Potassium 2.4 L*, Chloride 89 L, Carbon Dioxide 30.3, Anion Gap 10, BUN 7, Creatinine 0.87, Estim Creat Clear Calc 61.49, Est GFR (MDRD) Non-Af 94, BUN/Creatinine Ratio 7.5 L, Glucose 158 H, Calcium 8.1, F erritin 1172 H, Vitamin B12 690 09/04/24 17:06: POC Glucose 152 H 09/04/24 17:50: Lactic Acid 1.1 09/04/24 21:17: POC Glucose 197 H 09/05/24 06:14: WBC 8.1, RBC 2.48 L, Hgb 6.8 L, Hct 22.4 L, MCV 90.3, MCH 27.4, MCHC 30.4 L, RDW Std Deviation 56.8 H, RDW Coeff of Jaquan 17.2 H, Plt Count 160, MPV 10.2, Immature Gran % (Auto) 2.100 H, Neut % (Auto) 87.6 H, Lymph % (Auto) 3.4 L, Jerome % (Auto) 6.7, Eos % (Auto) 0.0, Baso % (Auto) 0.2, Absolute Neuts (auto) 7.1, Absolute Lymphs (auto) 0.28 L, Nucleated RBC % 0, Sodium 131 L, P otassium 3.0 L, Chloride 94 L, Carbon Dioxide 28.0, Anion Gap 9, BUN 4, C reatinine 0.69 L, Estim Creat Clear Calc 66.00, Est GFR (MDRD) Non-Af 101, B UN/Creatinine Ratio 6.4 L, Glucose 222 H, Calcium 7.9, Iron 17 L, TIBC 121 L, Iron Saturation 14.0, Unsaturated IBC 104 L 09/05/24 07:30: Blood Type A POSITIVE, Antibody Screen NEGATIVE, Crossmatch See Detail Micro: Microbiology 09/04/24 11:00 Blood Culture (Wb) - Anticubital Left Blood Culture - Preliminary 09/04/24 11:00 Blood Culture (Wb) - Anticubital Left Blood Culture - Preliminary 09/04/24 19:26 Stool Enteric Bacteriology - Final 09/04/24 19:26 Stool Clostridioides difficile (PCR) - Final 09/04/24 11:06 Mucosa - Nose SARS-CoV-2, Influenza & RSV (PCR) - Final Radiography Diagnostic Testing: Radiology Impression Chest X-Ray 09/04/24 11:02 IMPRESSION: Stable examination with evidence of hyperinflation and pulmonary hypertension. Stable nodular density and/or infiltrate in the left upper lobe. Reading Location: [id number] Pelvis X-Ray 09/04/24 11:06 IMPRESSION: No acute abnormality is seen. Dense atherosclerotic calcification of the abdominal aorta and iliac arteries. Reading Location: [id number] Toe X-Ray 09/04/24 11:06 IMPRESSION: No acute fracture is seen. Reading Location: [id number] Chest/Abdomen/Pelvis CT 09/04/24 14:32 IMPRESSION: Heterogeneous consolidation in the left upper lobe with a central necrosis and left hilar lymphadenopathy. A neoplastic process should be ruled out. Tiny nodules in the right lung as described. Left adrenal mass suggestive of possible metastasis. Reading [facility] Physical Exam Const alert, oriented x3 and no apparent distress Constitutional Narrative: Upper middle-aged male, appears older than stated age, thin and cachectic appearing, pale and fatigued appearing, otherwise laying back comfortably in bed, conversing normally, in no acute distress. General Appearance: cooperative and comfortable HEENT normocephalic, head/scalp atraumatic, hearing grossly normal bilaterally, nasal mucous membranes and turbinates normal and moist oral mucous membranes Eyes PERRL, EOMs intact bilaterally and conjunctivae normal Neck full ROM Chest inspection of chest normal Resp normal respiratory effort and no use of accessory muscles Resp Narrative: Breathing comfortably on 4 L nasal cannula at rest. Diminished breath sounds bilaterally with mild to moderate upper airway wheezing noted. No crackles noted. Cardio no murmurs and peripheral pulses 2+ throughout Cardio Narrative: Tachycardic, regular rhythm. GI normal to inspection, nondistended, normoactive bowel sounds, soft to palpation, non-tender and non-distended Extremity normal to inspection and no pedal edema Skin no rashes or lesions noted Neuro Neuro Narrative: Generalized weakness noted. Psych mental status grossly normal Assessment & Plan Assessment/Plan (1) Weakness: (2) Anemia: (3) Septic shock: (4) Pneumonia: PLAN: Plan Patient is a 69-year-old male who presented to [facility] ED on 09/04/2024 with generalized weakness with a fall. 1. Septic shock and acute hypoxia suspected secondary to pneumonia and COPD exacerbation ? 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 On home oxygen, requiring 4 L on admit to maintain appropriate saturations. Clinical concern for left upper lobe pneumonia as precipitating etiology. Patient ultimately developed fluid refractory hypotension requiring the initiation of vasopressor support to maintain hemodynamic stability. Infectious workup pending. Continue broad-spectrum IV antibiotics. Initiated on IV steroids and scheduled DuoNebs on 09/05. Wean supplemental oxygen as able. 2. Metastatic lung cancer with recent radiation therapy ? Follows with outpatient oncology and radiation oncology. See quick note for further details on cancer history. In short, patient was recently initiated on radiation therapy for metastases to T6 and T7. It appears he completed 3 of 5 rounds of radiation that were planned for this. Has history of resection of cancer in [place] in 2016 and radiation therapy of cancer in [place] in 2023. Case management following as below. Patient is certainly an appropriate palliative care candidate at this time and pending clinical course, may be appropriate for hospice care. Will follow closely. 3. Acute on chronic debility ? PT/OT/case management following. Patient lives at home alone and appears to have poor social support. Appreciate therapy and case management recommendations. 4. Acute on chronic anemia ? Hemoglobin 7.2 on admit, dropped to 6.8 on hospital day 2. Hemoglobin in June was 11 and that appeared to be his baseline. In [facility] records, hemoglobin 9.7 on CBC from 08/21. Patient denies change in bowel movements but have suspicion for slow upper GI bleed given this hemoglobin drop. Iron studies notably with high ferritin consistent with anemia of chronic disease. Transfusing 1 unit of blood today. Will treat with IV PPI twice daily for now. GI consulted for consideration of EGD. N.p.o. at midnight. 5. Concern for malnutrition ? Nutrition following. BMI 17 on admit. However per nutrition, did not meet criteria for malnutrition. Supplements of Ensure clear and Ensure plus high- protein will be added to meals. Appreciate further nutrition recommendations. Chronic medical conditions: ? BPH with obstructive symptoms: Patient with significant urinary retention on admission relieved with straight cath. Will continue to monitor with bladder scans as needed and can consider Hollis catheterization if retaining. Continue home Flomax. ? History of CAD with CABG, hypertension, hyperlipidemia: Had CABG back in 2016. Hypotensive on admit as above. Continue home statin. Holding home beta- yajaira, Lasix and aspirin for now. ? Type 2 diabetes mellitus with diabetic neuropathy: Continue Humalog 75-25 mix at reduced dose of 12 units twice daily along with sliding scale insulin with meals, adjust as needed. Continue home gabapentin. ? Anxiety/depression: Continue home paroxetine and Ativan as needed. ? GERD: Treating with IV PPI twice daily as above. DVT prophylaxis: SCDs CODE STATUS: Full code, verified Expected disposition: TBD Total clinical time spent by myself addressing the patient's medical issues, reviewing all the data, and collaborating with patient's care team: 35 minutes. Charges/Coding Visit Charges Inpatient E&M: 58980 Subs Hosp L2
[2024-09-05] MEDS: Pantoprazole Sodium 40 MG in 0.9% Normal Saline (100mL MB+) 100 ML 300 MG IV ×2 (10:12→21:44)
[2024-09-05] MEDS: Ipratropium/Albuterol Sulfate 3 ML AMPUL.NEB INHALATION ×4 (11:00→19:09)
[2024-09-05] MEDS: MethylPREDNISolone 125 MG/2 ML Vial IV (11:37)
[2024-09-05 12:08] LABS: Magnesium 1.3 mg/dL (1.5-2.2); Phosphorus 2.2 mg/dL (2.7-4.5)
[2024-09-05 12:30] LABS: Bedside Glucose 181 mg/dL (74-106)
[2024-09-05] MEDS: Menthol/Lanolin/Calamine/Znox 113 GM Tube 1 APPLIC TOPICAL ×3 (13:33→21:46)
[2024-09-05] MEDS: MethylPREDNISolone 125 MG/2 ML Vial 60 MG IV ×2 (13:33→21:44)
--- NOTE | 2024-09-05 13:53 | PN.HOSP_ITS ---
Hospitalist Note Accessed most recent radiation oncology note from 08/28 in [facility] records. The following notes below are a summary of that visit. 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 HPI: Mr. 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 He also has a history of COPD. On routine PET CT scan in January 2023, he was found to have a 3.5 cm hypermetabolic nodule of the left upper lobe. Serial CT scan showed interval increase in size to 4.8 x 3.7 cm, and bronchoscopy on 04/05/2023 showed extrinsic compression of the apical posterior segment of the left upper lobe. Core biopsy showed keratinizing squamous cell carcinoma. EBUS and TBNA of station 7 node and 11L node were negative. He was considered medically inoperable due to his poor lung function which showed an FEV1 of 50% of predicted and a DLCO of 61% of predicted. He therefore underwent SBRT directed to the FRANCK mass completed on 05/21/2023. He tolerated treatment well and follow-up CT chest on 08/24/2023 showed decreased size of the spiculated mass in the posterior left upper lobe and decreased size of adjacent irregular nodular opacities. There is a new 8 mm nodule in the lateral left upper lobe. PET CT scan on 08/01/2024 showed large hypermetabolic left upper lung lobe mass with invasion of the left lateral chest wall/rib cage. Cecilia status: Hypermetabolic mediastinal, left axillary lymph nodes, likely metastatic. Metastases: Findings suggestive of right pleural, left adrenal and osseous metastases. Core needle biopsy of right paraspinal soft tissue mass on 08/21/2024 showed metastatic squamous of carcinoma. Recommendation: Radiation oncology recommended palliative radiation therapy directed to his right posterior paraspinal mass at the T6-T7 level. Recommended treating with radiation dose of 2000 cGy in 5 fractions. Patient completed 3 radiation doses on 08/28 through 08/30, but it appears this wa s 4 and 5 were not done due to complications postradiation.
--- NOTE | 2024-09-05 15:01 | CHAPLAIN ---
Type of Pastoral Visit _x__ Initial Visit ___ Follow-up Visit ___ On-call Visit ___ General Patient Visit ___ Spiritual Assessment ___ Family Conference ___ Bereavement ___ Rapid Response ___ Code Blue ___ Other (describe below) Pastoral Care Referral From _x__ Patient ___ Family ___ Nurse ___ Physician ___ Felt Finisher ___ Boiler Tenders Supervisor ___ Other (describe below) Sacrament/Intervention _x__ Active listening ___ Anointing ___ Gnosticism ___ Bereavement ___ Communion _x__ Kennedi exploration ___ _x__ Life review _x__ Prayer ___ Reconciliation ___ Sacrament of Sick _x__ Supportive presence ___ Wedding ___ Other (describe below) Pastoral Comments patient is welcoming and respectful; pt explains what his situation was and how he came to be weak and fell getting to his medical appointment for treatment; pt goes on to explain more of his health issues that include cancer; pt says that he believes in God and in prayer and would welcome prayers to be spoken for him; pt gives some life review as well; pt is offered support, listening, affirmation, presence, and prayer
[2024-09-05 16:44] LABS: Bedside Glucose 256 mg/dL (74-106)
[2024-09-05] MEDS: Vancomycin IV 500 MG/100 ML BAG 100 MG IV (17:34)
[2024-09-05 17:56] LABS: Hemoglobin A1c 7.7 % (<=5.6)
--- NOTE | 2024-09-05 17:59 | EX.PCM.CON.G ---
HPI Consult Data Date of Consult: 09/05/24 HPI Narrative Reason for Consultation: Anemia HPI Narrative: 69-year-old male with history of ELLEN, lung cancer on radiation, COPD, BPH, diabetes, GERD, anxiety, CAD who presented to [facility] ED 09/06/2024 via EMS after a fall today. His friend was taking him to his radiation appointment as he is receiving radiation therapy on his right lung and when he was getting out of the truck he was transferring to the wheelchair and his legs gave out. Patient diagnosed with concerns for sepsis to the ICU. He has been diagnosed with pneumonia and septic shock. He is getting better from that standpoint and has been afebrile and normotensive today. Always I was asked to see him due to decreasing hemoglobin down to 6.8. Patient has not seen any signs of GI bleeding FORMERLY [facility], [facility] Medical History Alcohol use Excessive bleeding History of echocardiogram History of stress test Cardiology follow-up encounter Chest pain Vitamin D deficiency Left adrenal mass CAD (coronary artery disease) Blind Cancer Depression Anxiety Diabetes Prostate disease DVT (deep venous thrombosis) High cholesterol Easy bruising Umbilical hernia Neuropathy Injury of head and neck Syncope Former smoker On home oxygen therapy CPAP (continuous positive airway pressure) dependence COPD (chronic obstructive pulmonary disease) Shortness of breath on exertion History of edema Hypertension Home Medications ?Medication ?Instructions ?Recorded ?Last Taken ?Type albuterol sulfate 2.5 mg/3 mL 2.5 mg inhalation DAILY 01/08/23 09/03/24 History (0.083 %) solution for nebulization albuterol sulfate 90 mcg/actuation 2 puff inhalation PRN PRN 01/08/23 05/30/24 History aerosol inhaler shortness of breath or wheezing aspirin 81 mg tablet,delayed 81 mg PO DAILY 01/08/23 09/04/24 History release atorvastatin 20 mg tablet 20 mg PO QHS 01/08/23 09/03/24 History dapagliflozin propanediol 5 mg 5 mg PO DAILY 01/08/23 09/03/24 History tablet (Farxiga) fluticasone fur. 100 mcg-umeclid 1 inh inhalation DAILY 01/08/23 09/03/24 History 62.5 mcg-vilant 25 mcg inhalat.powder (Trelegy Ellipta) furosemide 40 mg tablet 40 mg PO DAILY 01/08/23 09/04/24 History paroxetine HCl 10 mg tablet 10 mg PO DAILY 01/08/23 09/04/24 History pregabalin 150 mg capsule 150 mg PO DAILY 01/08/23 09/04/24 History roflumilast 250 mcg tablet 250 mcg PO DAILY 01/08/23 09/04/24 History tamsulosin 0.4 mg capsule 0.4 mg PO Q24H 01/08/23 09/04/24 History metformin 500 mg tablet,extended 1,500 mg PO QHS 03/22/24 09/04/24 History release 24hr (osmotic) gabapentin 300 mg capsule 300 mg PO QHS 05/10/24 09/03/24 History lorazepam 1 mg tablet 1 mg PO TID #90 tabs 07/04/24 Unknown Rx esomeprazole magnesium 40 mg 40 mg PO DAILY 09/04/24 09/03/24 History capsule,delayed release insulin lispro protamine-lispro 15 unit subcut BIDCM 09/04/24 09/04/24 History 100 unit/mL (75-25) subcutaneous pen (Humalog Mix 75-25 KwikPen) metoprolol succinate 25 mg 25 mg PO DAILY 09/04/24 09/04/24 History tablet,extended release 24 hr oxycodone 5 mg tablet 5 - 10 mg PO Q6H PRN PRN pain 09/04/24 Unknown History prednisone 5 mg tablet 15 mg PO DAILY 09/04/24 Unknown History semaglutide 7 mg tablet (Rybelsus) 7 mg PO DAILY 09/04/24 09/04/24 History vitamin B complex (Complex B-100 1 tab PO DAILY 09/04/24 09/04/24 History tablet,extended release) Allergy/AdvReac Type Severity Reaction Status Date / Time No Known Allergies Allergy Verified 07/24/24 10:03 Family History Mother Cancer LUNG Heart disease Father Cancer lung Sister Cancer lung Heart disease Sister Cancer lung Sister Cancer lung Sister Colon cancer Surgical History Hx of fracture of leg Hx of fracture of foot History of bronchoscopy Hx of biopsy History of lobectomy of lung Hx of oral surgery History of open heart surgery (05/08/15) Social History household members: none housing: other 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 Smoking Status: Former smoker quit date: 03/15/15 pack-years: 120 alcohol intake: current alcohol intake frequency: a few times a month Alcohol type: beer substance use type: does not use what type of physical activity do you participate in: none seatbelt use: always do you feel safe at home: Yes ROS Constitutional Constitutional: Denies fatigue, fever(s), poor appetite, weight gain or weight loss Gastrointestinal Gastrointestinal: Denies belching, bloating, change in bowel habits, change in stool character, chewing difficulty, coffee ground emesis, constipation, cramping, diarrhea, dyspepsia, dysphagia, early satiety, excessive flatus, fecal incontinence, heartburn, hematemesis, hematochezia, hemorrhoids, loose stools, melena, nausea, odynophagia, rectal bleeding, tenesmus, vomiting or weight changes Physical Exam Const alert, oriented x3, no apparent distress and healthy appearing General Appearance: cooperative GI normal to inspection, nondistended, normoactive bowel sounds, soft to palpation, non-tender and non-distended Percussion: normal to percussion Rectal Exam: deferred Lab / Micro Data 09/05/24 06:14 09/05/24 06:14 Labs: Laboratory Results - last 24 hr 09/04/24 11:00: Retic Count 2.23 H, Immature Retic Fraction 17.80 H, Retic Hgb Equivalent 25.2 L 09/04/24 17:50: Lactic Acid 1.1 09/04/24 21:17: POC Glucose 197 H 09/05/24 06:14: WBC 8.1, RBC 2.48 L, Hgb 6.8 L, Hct 22.4 L, MCV 90.3, MCH 27.4, MCHC 30.4 L, RDW Std Deviation 56.8 H, RDW Coeff of Jaquan 17.2 H, Plt Count 160, MPV 10.2, Immature Gran % (Auto) 2.100 H, Neut % (Auto) 87.6 H, Lymph % (Auto) 3.4 L, [place] % (Auto) 6.7, Eos % (Auto) 0.0, Baso % (Auto) 0.2, Absolute Neuts (auto) 7.1, Absolute Lymphs (auto) 0.28 L, Nucleated RBC % 0, Sodium 131 L, Potassium 3.0 L, Chloride 94 L, Carbon Dioxide 28.0, Anion Gap 9, BUN 4, Creatinine 0.69 L, Estim Creat Clear Calc 66.00, Est GFR (MDRD) Non-Af 101, BUN/Creatinine Ratio 6.4 L, Glucose 222 H, Hemoglobin A1c 7.7 H, Calcium 7.9, Phosphorus 2.2 L, Magnesium 1.3 L, Iron 17 L, TIBC 121 L, Iron Saturation 14.0, Unsaturated IBC 104 L 09/05/24 07:30: Blood Type A POSITIVE, Antibody Screen NEGATIVE, Crossmatch See Detail 09/05/24 12:10: POC Glucose 181 H 09/05/24 16:23: POC Glucose 256 H Micro: Microbiology 09/05/24 06:33 Sputum, Expectorated/Coughed Gram Stain - Final 09/05/24 06:33 Sputum, Expectorated/Coughed Respiratory Culture - Final 09/04/24 11:00 Blood Culture (Wb) - Anticubital Left Blood Culture - Preliminary 09/04/24 11:00 Blood Culture (Wb) - Anticubital Left Blood Culture - Preliminary 09/04/24 19:26 Stool Enteric Bacteriology - Final 09/04/24 19:26 Stool Clostridioides difficile (PCR) - Final Assessment & Plan Assessment/Plan (1) Anemia: PLAN: Patient seems to have a microcytic iron deficiency anemia and a normocytic anemia. He should undergo an EGD and possible colonoscopy plus or minus capsule endoscopy to evaluate his GI tract for signs of acute on chronic blood loss anemia. Keep n.p.o. past midnight. He was explained alternatives, risk and benefits include not withstanding bleeding, infection, sepsis, perforation, need for more surgery . He will have an ASA of 3. Charges/Coding Visit Charges Inpatient E&M: 24514 Init Hosp L3
--- NOTE | 2024-09-05 20:21 | PCM.HOSP.N ---
Hospitalist Note Changed level or care to PCU status given stable throughout the day.
[2024-09-05] MEDS: Atorvastatin Calcium 20 MG Tablet PO (21:44)
[2024-09-05] MEDS: Gabapentin 300 MG Capsule PO (21:48)
[2024-09-05 22:16] LABS: Bedside Glucose 287 mg/dL (74-106)
[2024-09-05] MEDS: Insulin Lispro 100 UNIT/ML INSULN.PEN SC (22:37)
[2024-09-06] VITALS (19 sets, daily range): BP systolic 90–137; BP diastolic 56–86; PULSE 80–114; RESP 18–26; TEMP 36–36.7; O2SAT 95–100; BMI 26.6; BMI 27.1
[2024-09-06] MEDS: oxyCODONE 5 MG Tablet PO (01:40)
[2024-09-06] MEDS: 0.9% Normal Saline (1000mL) 1,000 ML 125 ML IV (01:55)
[2024-09-06] MEDS: Piperacil/Tazobactam 3.375 GM in 0.9% Normal Saline (50mL MB+) 50 ML IV ×3 (05:22→21:47)
[2024-09-06] MEDS: 0.9% Saline Lock 10 ML Syringe IV ×2 (05:24→07:12)
[2024-09-06] MEDS: MethylPREDNISolone 125 MG/2 ML Vial 60 MG IV ×3 (05:24→21:45)
--- NOTE | 2024-09-06 05:55 | EKG12_ITS ---
Test Reason : AM EKG Blood Pressure : */* mmHG Vent. Rate : 80 BPM Atrial Rate : 80 BPM P-R Int : 156 ms QRS Dur : 112 ms QT Int : 424 ms P-R-T Axes : 48 86 25 degrees QTcB Int : 489 ms Normal sinus rhythm Low voltage QRS Prolonged QT Abnormal ECG When compared with ECG of 04-Sep-2024 11:17, Premature ventricular complexes are no longer Present Confirmed by ISAURA PENA, ANASTACIO ([id number]), editor farm journal HAILEY ARREAGA ([id number]) on 09/06/2024 1:20:54 PM Referred By: Confirmed By: ANASTACIO DELAROSA MD
[2024-09-06 06:05] LABS: Hematocrit 24.8 % (40-54); Hemoglobin 7.8 g/dL (13.0-16.5); Mean Corp Hgb Conc 31.5 g/dL (32-36); Mean Corpuscular Hgb 27.7 pg (27.0-32.0); Mean Corpuscular Volume 87.9 fL (80-94); Mean Platelet Vol. 9.8 fl (6.2-12.0); Platelet Count 179 K/mm3 (150-450); RBC Distribution Width CV 17.2 % (11.6-14.6); RBC Distribution Width SD 55.7 fl (35.1-43.9); Red Blood Count 2.82 M/mm3 (4.6-6.2); White Blood Count 8.3 K/mm3 (4.4-11.0)
[2024-09-06 06:16] LABS: International Normalized Ratio 1.4; Prothrombin Time (Protime)PT. 17.5 SECONDS (11.7-14.9)
[2024-09-06 06:45] LABS: Anion Gap 12 (5-15); BUN 8 mg/dL (4-19); BUN/Creat Ratio 10.9 RATIO (10-20); Calcium,Total 7.7 mg/dL (7.6-11.0); Carbon Dioxide 26.5 mmol/L (21.0-32.0); Chloride 98 mmol/L (98-108); Creatinine, Serum 0.69 mg/dL (0.70-1.20); EST Glomerular Filtration Rate 101 (>60); Estimated Creatinine Clearance 88.38 ml/min (50-250); Glucose 248 mg/dL (70-99); Potassium 3.6 mmol/L (3.3-5.1); Sodium Level 137 mmol/L (133-145); Vancomycin, Trough Level 8.6 ug/mL (5.0-15.0)
[2024-09-06 07:01] LABS: Bedside Glucose 219 mg/dL (74-106)
--- NOTE | 2024-09-06 07:08 | PHA.PHARE_ITS ---
Consult Antibiotic Management Pharmacy has been consulted to manage selected antibiotic: Vancomycin Type of Intervention Type of Consult: Follow-up Prior Doses of Antibiotics Prior Doses of Antibiotics Received/Current Regimen: current dose is 500mg IV q12h Labs Labs: Sodium 137 mmol/L (133-145) 09/06/24 05:42 Potassium 3.6 mmol/L (3.3-5.1) 09/06/24 05:42 Chloride 98 mmol/L (98-108) 09/06/24 05:42 Carbon Dioxide 26.5 mmol/L (21.0-32.0) 09/06/24 05:42 Anion Gap 12 (5-15) 09/06/24 05:42 BUN 8 mg/dL (4-19) 09/06/24 05:42 Creatinine 0.69 mg/dL (0.70-1.20) L 09/06/24 05:42 Est GFR (MDRD) Non-Af 101 (>60) 09/06/24 05:42 BUN/Creatinine Ratio 10.9 RATIO (10-20) 09/06/24 05:42 Glucose 248 mg/dL (70-99) H 09/06/24 05:42 Vancomycin Trough 8.6 ug/mL (5.0-15.0) 09/06/24 05:42 Microbiology Microbiology: Microbiology 09/05/24 06:33 Sputum, Expectorated/Coughed Gram Stain - Final 09/05/24 06:33 Sputum, Expectorated/Coughed Respiratory Culture - Final 09/04/24 11:00 Blood Culture (Wb) - Anticubital Left Blood Culture - Preliminary 09/04/24 11:00 Blood Culture (Wb) - Anticubital Left Blood Culture - Prelimi nary 09/04/24 19:26 Stool Enteric Bacteriology - Final 09/04/24 19:26 Stool Clostridioides difficile (PCR) - Final 09/04/24 11:06 Mucosa - Nose SARS-CoV-2, Influenza & RSV (PCR) - Final Dosing Weight Weight used for dosin.4 kg Estimated Creatinine Clearance Estimated Creatinine Clearance: 88 ml/min Goal Trough Goal Trough: 15-20 mcg/mL Pharmacy Plan for Drug Dosing Pharmacy Plan for Drug Dosing: VANCOMYCIN LEVEL RECEIVED Current Vancomycin Dose: 500MG Q12H Number of Doses Received: 1250MG X1, 1000MG X1, 500MG X1 Vancomycin Level: 8.6 Hours Since Last Dose: 12 Renal Function: SCR 0.69, CRCL 88 Renal Function Trend: SCR WAS 0.69 AND 0.94 PREVIOUS 2 DAYS Vancomycin Plan/Comments: TROUGH BELOW GOAL. INCREASE DOSE TO 1000MG Q12H. REPEAT TROUGH BEFORE 4TH NEW DOSE. Pending Level: 09/07/24 18:30 Pharmacy Service will continue to monitor and adjust dosing as required. Follow-Up Labs Follow-Up Labs: Trough: Vancomycin Date/Time Labs Ordered Labs to be done on [date and time ordered]: 09/07/24 18:30
[2024-09-06] MEDS: Vancomycin IV 1,000 MG/200 ML BAG 200 MG IV ×2 (07:12→18:33)
[2024-09-06] MEDS: Budesonide Respules 0.5 MG/2 ML AMPUL.NEB. INHALATION ×2 (07:58→20:30)
[2024-09-06] MEDS: Ipratropium/Albuterol Sulfate 3 ML AMPUL.NEB INHALATION ×4 (07:58→20:30)
[2024-09-06] MEDS: Menthol/Lanolin/Calamine/Znox 113 GM Tube 1 APPLIC TOPICAL ×4 (09:30→21:45)
--- NOTE | 2024-09-06 09:37 | PCM.PN.INT ---
Assessment & Plan Assessment/Plan (1) Sepsis: (2) Acute hyponatremia: (3) Acute hypokalemia: (4) Weakness: (5) Anemia: (6) COPD (chronic obstructive pulmonary disease): QUALIFIERS: COPD type: unspecified COPD Qualified Code(s): J44.9 - Chronic obstructive pulmonary disease, unspecified PLAN: Plan RECOMMENDATIONS: 1. Continue empiric antimicrobials as ordered. 2. Continue to monitor blood counts and transfuse if hemoglobin drops below 7 g/dL. 3. Continue scheduled bronchodilators and steroids. 4. PPI therapy twice daily. 5. Encourage incentive spirometer use and mobilize patient as tolerated. 6. Will sign off from a critical care perspective. Please call with any additional questions. IMPRESSIONS: 1. Septic shock Resolved. Clinical concern for left upper lobe pneumonia as precipitating etiology. The patient ultimately developed fluid refractory hypotension, which required the initiation of vasopressor support to maintain hemodynamic stability. The patient has since been weaned from vasopressor support and remains hemodynamically stable. Plan to continue antimicrobials as ordered. 2. Acute on chronic anemia Continue to monitor H&H and transfuse if hemoglobin drops below 7 g/dL. Continue PPI therapy as ordered. Gastroenterology is following with tentative plans for endoscopic evaluation. 3. History of COPD/unspecified lung cancer amidst radiation treatment/obstructive sleep apnea on CPAP Agree with continuing scheduled bronchodilators and IV steroids as ordered. Continue nocturnal CPAP therapy per home regimen. 4. History of coronary artery disease status post CABG/diabetes mellitus/GERD/anxiety/BPH Complicates care, management, recovery and prognosis. Continue supportive measures as noted above. This note was generated with [employer] dictation software. It may contain incorrect words, spelling, and punctuation that were not noted in checking the note before signing. Subjective Subjective The patient was seen and examined at the bedside this morning. Events from the last 24 hours have been reviewed. The patient is currently afebrile, hemodynamically stable and maintaining appropriate oxygen saturations on 2 L/min via nasal cannula. The patient is documented to be overall net +4.3 L for the hospitalization. White blood cell count is normal. Hemoglobin has improved to 7.8 g/dL, following transfusion of 1 unit of packed red blood cells. Creatinine is within normal limits. Objective Data Objective Data The patient's most recent lab work, culture data and imaging studies have all been personally reviewed. Preliminary blood culture dated September 04 was positive for Staph aureus. Sputum culture is currently pending. Vital Signs: Vital Signs Temp Pulse Resp BP Pulse Ox O2 Del Method O2 Flow Rate 97.1 F L 90 20 H 137/72 H 95 Nasal Cannula 2 09/06/24 06:40 09/06/24 07:58 09/06/24 07:58 09/06/24 06:40 09/06/24 07:58 09/06/24 07:58 09/06/24 07:58 Oxygen Flow Rate (L/min) 2 Oxygen Delivery Method Nasal Cannula Weight: 183 lb 13.848 oz Body Mass Index (BMI) 27.1 Intake & Output: Intake and Output for Last 24 Hours 09/04/24 09/05/24 09/06/24 23:59 23:59 23:59 Intake Total 4183.2 / 4183.2 3580.13 / 3580.13 1730.42 / 1730.42 Output Total 1700 / 1700 2850 / 2850 580 / 580 Balance 2483.2 / 2483.2 730.13 / 730.13 1150.42 / 1150.42 Lab / Micro Data Attestation: I reviewed the patient's lab results. 09/06/24 05:42 09/06/24 05:42 Labs: Laboratory Results - last 24 hr 09/05/24 06:14: Hemoglobin A1c 7.7 H, Phosphorus 2.2 L, Magnesium 1.3 L 09/05/24 07:30: Blood Type A POSITIVE, Antibody Screen NEGATIVE, Crossmatch See Detail 09/05/24 12:10: POC Glucose 181 H 09/05/24 16:23: POC Glucose 256 H 09/05/24 21:39: POC Glucose 287 H 09/06/24 05:42: WBC 8.3, RBC 2.82 L, Hgb 7.8 L, Hct 24.8 L, MCV 87.9, MCH 27.7, MCHC 31.5 L, RDW Std Deviation 55.7 H, RDW Coeff of Jaquan 17.2 H, Plt Count 179, MPV 9.8, PT 17.5 H, INR 1.4, APTT 39.0 H, Sodium 137, Potassium 3.6, Chloride 98, Carbon Dioxide 26.5, Anion Gap 12, BUN 8, Creatinine 0.69 L, Estim Creat Clear Calc 88.38, Est GFR (MDRD) Non-Af 101, BUN/Creatinine Ratio 10.9, Glucose 248 H, Calcium 7.7, Vancomycin Trough 8.6 09/06/24 06:16: POC Glucose 219 H Micro: Microbiology 09/04/24 11:00 Blood Culture (Wb) - Anticubital Left Blood Culture - Preliminary Staphylococcus aureus 09/04/24 11:00 Blood Culture (Wb) - Anticubital Left Blood Culture - Preliminary 09/05/24 06:33 Sputum, Expectorated/Coughed Gram Stain - Final 09/05/24 06:33 Sputum, Expectorated/Coughed Respiratory Culture - Final 09/04/24 19:26 Stool Enteric Bacteriology - Final 09/04/24 19:26 Stool Clostridioides difficile (PCR) - Final 09/04/24 11:06 Mucosa - Nose SARS-CoV-2, Influenza & RSV (PCR) - Final Physical Exam Const alert, oriented x3 and no apparent distress General Appearance: cooperative HEENT normocephalic and head/scalp atraumatic Eyes PERRL, EOMs intact bilaterally and conjunctivae normal Neck supple General: trachea midline Chest inspection of chest normal Resp normal respiratory effort and no use of accessory muscles Effort and Inspection: able to speak in complete sentences Auscultation: diminished lung sounds Cardio regular rate and regular rhythm GI normal to inspection, nondistended, normoactive bowel sounds Extremity no clubbing, cyanosis or edema Skin no rashes or lesions noted Neuro CN's II-XII intact bilaterally, moves all extremities and no focal motor deficits Psych cooperative and affect normal Charges/Coding Visit Charges Inpatient E&M: 15230 Subs Hosp L2
[2024-09-06] MEDS: Magnesium Sulfate 4gm/100mL 4 GM/100 ML IV.SOLN. IV (09:38)
[2024-09-06] MEDS: Pantoprazole Sodium 40 MG in 0.9% Normal Saline (100mL MB+) 100 ML 300 MG IV (09:42)
[2024-09-06] MEDS: Lactated Ringers 1,000 ML 15 ML IV (11:16)
--- NOTE | 2024-09-06 11:29 | PRE.ANES_ITS ---
ASA Classification* ASA Classification ASA Classification: 3 (ELLEN, lung cancer on radiation, COPD, BPH, Diabetes, GERD, CAD, hx DVT, hx CABG) Assessment & Plan Anesthesia* Anesthesia Assessment Anesthesia Assessment: Discussed sedation and/or anesthesia options, risks, benefits, and alternatives with patient/parents/legal guardian/POA. Questions invited. The patient/parents/legal guardian/POA seems to understand and agrees to proceed with anesthesia plan. Reviewed the physical assessment, medical history, allergy history and patient home medications list prior to surgery/procedure/anesthetic and documented any changes. Performed airway and anesthesia risk assessments. Farxiga held 3 days, PO semaglutide held >24 hours Anesthesia Type Anesthesia Type: MAC History Source History Obtained from:: Patient and Chart Anesthesia Focused Assessment* Temperature: 98.1 F Pulse Rate: 92 Blood Pressure: 121/76 Respiratory Rate: 18 Pulse Ox: 97 Oxygen Delivery Method: Nasal Cannula Oxygen Flow Rate (L/min): 2 Airway Assessment Mouth opens: >3 cm Mallampati Score: II Teeth Condition: Missing (edentulous) Neck Range of motion (ROM): Full ROM Labs Anesthesia Preop lab: CBC WBC 8.3 K/mm3 (4.4-11.0) 09/06/24 05:42 09/06/24 RBC 2.82 M/mm3 (4.6-6.2) L 09/06/24 05:42 09/06/24 Hgb 7.8 g/dL (13.0-16.5) L 09/06/24 05:42 09/06/24 Hct 24.8 % (40-54) L 09/06/24 05:42 09/06/24 Plt Count 179 K/mm3 (150-450) 09/06/24 05:42 09/06/24 CHEMISTRY Potassium 3.6 mmol/L (3.3-5.1) 09/06/24 05:42 09/06/24 Sodium 137 mmol/L (133-145) 09/06/24 05:42 09/06/24 Magnesium 1.3 mg/dL (1.5-2.2) L 09/05/24 06:14 09/05/24 Phosphorus 2.2 mg/dL (2.7-4.5) L 09/05/24 06:14 09/05/24 BUN 8 mg/dL (4-19) 09/06/24 05:42 09/06/24 Creatinine 0.69 mg/dL (0.70-1.20) L 09/06/24 05:42 Glucose 248 mg/dL (70-99) H 09/06/24 05:42 09/06/24 POC Glucose 219 mg/dL (74-106) H 09/06/24 06:16 09/06/24 TSH 0.767 uIU/mL (0.300-4.200) 06/06/24 09:07 05/14 08/06 COAG PT 17.5 SECONDS (11.7-14.9) H 09/06/24 05:42 08/14 08/06 Pre-Assessment Diagnosis/Proposed Procedure Planned Operative Procedure(s): EGD Anesthesia History 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 When Was Last Pacemaker Check QUESTION #4 FULL TEXT: You/Your Family Experience fever (hyperthermia) with Anesthesia Last Oral Intake Last Oral intake: Last Oral Intake NPO since 09/06/24 01:22 Meds taken in AM with sips of No 09/06/24 01:22 water? 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 Female HX of Motion Sickness HX of N/V After Surgery Non-Smoker Duration of Surgery greater than 60 minutes Number of Risk Factors PONV Score Height & Weight Height & Weight: Anesthesia: Height & Weight Height 5 ft 9 in 09/06/24 01:22 Weight: 83.4 kg 09/06/24 03:21 Body Mass Index (BMI) 27.1 09/06/24 03:21 Respiratory Assessment Respiratory Assessment - tile decorator: Respiratory Tract Infection Hx - tile decorator Hx Respiratory Tract Infection No 09/06/24 01:20 STOP Sleep Apnea STOP Sleep Apnea - tile decorator: STOP Sleep Apnea - tile decorator Hx Hypertension Yes: CONTROLLED WITH MED 09/05/24 12:54 Hx Sleep Apnea Yes 09/04/24 16:22 CPAP Yes 09/04/24 16:22 BIPAP No 09/04/24 16:22 Do you snore loudly (louder than talking or can be heard Do you often feel tired/ fatigued/ sleepy during daytime? Has anyone observed you stop breathing during sleep? STOP Results Positive 09/04/24 16:22 QUESTION #5 FULL TEXT : Do you snore loudly (louder than talking or can be heard through closed doors)? 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 Specify any problems Hx of Preganancy in last 3 N/A 09/04/24 16:22 Months Nurse Filling Out Transfusion DSLOAN 09/04/24 16:22 & Questions: Date: 09/04/24 09/04/24 16:22 Time: 16:09/04/24 16:22 Patient unable to answer at this time (ie. confused, unrespo /Reproduction History /Reproductive History - tile decorator: /Reproductive Hx- tile decorator Hx Now No 09/06/24 01:20 Gestational Age (in weeks): EDC: Hx Hx Para Hx Section SAB No 09/06/24 01:20 Active Medications Active Medications: Current Medications Generic Name Dose Route Start Last Admin Trade Name Freq PRN Reason Stop Dose Admin Acetaminophen 650 mg 09/04/24 16:03 09/05/24 18:47 Acetaminophen 325 Mg Tablet PO 650 mg Q6H PRN PRN Administration Pain 1-10 Or Fever >100.7 Albuterol Sulfate 2.5 mg 09/04/24 16:03 Albuterol 2.5 Mg/3 Ml Vial.Neb. INHALATION Q2H PRN PRN SOB &/OR WHEEZING Albuterol/Ipratropium 3 ml 09/05/24 10:15 09/06/24 07:58 Ipratropium/Albuterol Sulfate 3 Ml Ampul.Neb INHALATION 3 ml Q4HWA.RT ELIUD Administration Aspirin 81 mg 09/05/24 08:00 09/05/24 09:24 Aspirin E.C. 81 Mg Tablet PO Not Given BREAKFAST ELIUD Atorvastatin Calcium 20 mg 09/04/24 22:00 09/05/24 21:44 Atorvastatin Calcium 20 Mg Tablet PO 20 mg QHS ELIUD Administration Budesonide 0.5 mg 09/04/24 16:30 09/06/24 07:58 Budesonide Respules 0.5 Mg/2 Ml Ampul.Neb. INHALATION 0.5 mg Q12H.RT ELIUD Administration Calamine/Phenol 1 applic 09/04/24 18:00 09/06/24 09:30 Menthol/Lanolin/Calamine/Znox 113 Gm Tube TOPICAL 1 applic 4X/DAY ELIUD Administration Protocol Gabapentin 300 mg 09/04/24 22:00 09/05/24 21:48 Gabapentin 300 Mg Capsule PO 300 mg QHS ELIUD Administration Glucagon 1 mg 09/04/24 16:03 Glucagon 1 Mg/Ml Syringe IM X1 PRN HYPOGLYCEMIA Protocol Dextrose 250 mls @ 0 mls/hr 09/04/24 16:03 Dextrose 10%-Water IV .Q0M PRN HYPOGLYCEMIA Protocol As Directed Piperacillin Sod/Tazobactam 50 mls @ 12.5 mls/hr 09/04/24 22:00 09/06/24 09:47 Sod 3.375 gm/ Sodium Chloride IV Infused Q8 ELIUD Infusion Vancomycin IV-PHARMACY TO DOSE 500 mls @ 250 mls/hr 09/04/24 16:03 1 each/ Sodium Chloride IV X1 PRN Rx to Dose Protocol Sodium Chloride 250 mls @ 15 mls/hr 09/04/24 16:07 IV .[id number] PRN Saline Flush Sodium Chloride 250 mls @ 15 mls/hr 09/04/24 16:07 IV .[id number] PRN Additional IVPB Infusion Sodium Chloride 1,000 mls @ 75 mls/hr 09/05/24 08:20 09/06/24 10:52 IV 09/06/24 12:00 0 mls/hr .[id number] ELIUD Infusion Pantoprazole Sodium 40 mg/ 100 mls @ 300 mls/hr 09/05/24 10:00 09/06/24 10:13 Sodium Chloride IV Infused Q12 ELIUD Infusion Vancomycin HCl 1,000 mg in 200 mls @ 200 mls/hr 09/06/24 07:00 09/06/24 09:48 Vancomycin IV Infused Q12H ELIUD Infusion Magnesium Sulfate 4 gm in 100 mls @ 25 mls/hr 09/06/24 08:30 09/06/24 10:52 IV 09/06/24 12:29 0 mls/hr X1 ONE Infusion Lactated Ringer's 1,000 mls @ 15 mls/hr 09/06/24 11:15 09/06/24 11:16 IV 15 mls/hr .Q48H ELIUD Administration Insulin Human Lispro 0 unit 09/04/24 16:03 09/06/24 07:10 Insulin Lispro 100 Unit/Ml Insuln.Pen SC Not Given ACHS [facility] Protocol Insulin Lispro Protam/Lispro Human 15 unit 09/06/24 08:00 09/06/24 09:46 Insulin Human [place] SC Not Given BIDCM ELIUD Lorazepam 0.5 mg 09/04/24 16:03 09/04/24 20:06 Lorazepam 0.5 Mg Tablet PO 0.5 mg TID PRN Administration ANXIETY Melatonin 10 mg 09/04/24 16:03 09/04/24 20:07 Melatonin 3 Mg Tablet PO 10 mg QHS PRN PRN Administration INSOMNIA Methylprednisolone 60 mg 09/05/24 14:00 09/06/24 05:24 Methylprednisolone 125 Mg/2 Ml Vial IV 60 mg Q8 ELIUD Administration Ondansetron HCl 4 mg 09/04/24 16:03 09/04/24 22:31 Ondansetron 4 Mg/2 Ml Vial IV 4 mg Q8H PRN PRN Administration NAUSEA/VOMITING Oxycodone HCl 5 mg 09/04/24 16:03 09/06/24 01:40 Oxycodone 5 Mg Tablet PO 5 mg Q6H PRN PRN Administration pain 1-10 Paroxetine HCl 10 mg 09/05/24 10:00 09/05/24 09:42 Paroxetine 10 Mg Tablet PO 10 mg DAILY ELIUD Administration Potassium Phos/Sodium Phos 1 packet 09/06/24 11:00 Na Biphos/Potassium Phosphate Packet PO TIDAC ELIUD Senna/Docusate Sodium 2 tablet 09/04/24 16:03 Senna/Docusate Sodium 1 Tablet PO BID PRN PRN Constipation Sodium Chloride 10 - 40 ml 09/04/24 16:07 09/06/24 07:12 0.9% Saline Lock 10 Ml Syringe IV 10 ml UD PRN Administration SALINE FLUSH Tamsulosin HCl 0.4 mg 09/05/24 10:00 09/05/24 09:42 Tamsulosin Hcl 0.4 Mg Capsule PO 0.4 mg DAILY ELIUD Administration Vancomycin Protocol 1 lab 09/07/24 17:30 Vancomycin Trough/Random Due MC 09/07/24 19:30 DAILY ELIUD PFSH Medical History Alcohol use Excessive bleeding History of echocardiogram History of stress test Cardiology follow-up encounter Chest pain Vitamin D deficiency Left adrenal mass CAD (coronary artery disease) Blind Cancer Depression Anxiety Diabetes Prostate disease DVT (deep venous thrombosis) High cholesterol Easy bruising Umbilical hernia Neuropathy Injury of head and neck Syncope Former smoker On home oxygen therapy CPAP (continuous positive airway pressure) dependence COPD (chronic obstructive pulmonary disease) Shortness of breath on exertion History of edema Hypertension Home Medications ?Medication ?Instructions ?Recorded ?Last Taken ?Type albuterol sulfate 2.5 mg/3 mL 2.5 mg inhalation DAILY 01/08/23 09/03/24 History (0.083 %) solution for nebulization albuterol sulfate 90 mcg/actuation 2 puff inhalation P RN PRN 01/08/23 05/30/24 History aerosol inhaler shortness of breath or wheez ing aspirin 81 mg tablet,delayed 81 mg PO DAILY 01/08/23 0 09/04/24 History release atorvastatin 20 mg tablet 20 mg PO QHS 01/08/23 History dapagliflozin propanediol 5 mg 5 mg PO DAILY 01/08/23 09/03/24 History tablet (Farxiga) fluticasone fur. 100 mcg-umeclid 1 inh inhalation SOLEDAD Y 01/08/23 09/03/24 History 62.5 mcg-vilant 25 mcg inhalat.powder (Trelegy Ellipta) furosemide 40 mg tablet 40 mg PO DAILY 01/08/2308/14 History paroxetine HCl 10 mg tablet 10 mg PO DAILY 01/08/23 History pregabalin 150 mg capsule 150 mg PO DAILY 01/08/23 History roflumilast 250 mcg tablet 250 mcg PO DAILY 01/08/23 0 09/04/24 History tamsulosin 0.4 mg capsule 0.4 mg PO Q24H 01/08/2308/14 History metformin 500 mg tablet,extended 1,500 mg PO QHS 03/2209/04/24 History release 24hr (osmotic) gabapentin 300 mg capsule 300 mg PO QHS 05/10/2409/03 History lorazepam 1 mg tablet 1 mg PO TID #90 tabs 5 Unknown Rx esomeprazole magnesium 40 mg 40 mg PO DAILY 09/04/24 0 09/03/24 History capsule,delayed release insulin lispro protamine-lispro 15 unit subcut BIDCM 0 09/04/24 09/04/24 History 100 unit/mL (75-25) subcutaneous pen (Humalog Mix 75-25 KwikPen) metoprolol succinate 25 mg 25 mg PO DAILY 09/04/24 History tablet,extended release 24 hr oxycodone 5 mg tablet 5 - 10 mg PO Q6H PRN PRN arabella n 09/04/24 Unknown History prednisone 5 mg tablet 15 mg PO DAILY 09/04/24 Unkn own History semaglutide 7 mg tablet (Rybelsus) 7 mg PO DAILY 09/0409/04/24 History vitamin B complex (Complex B-100 1 tab PO DAILY 09/04/24 History tablet,extended release) Allergy/AdvReac Type Severity Reaction Status Date / Time No Known Allergies Allergy Verified 07/24/24 10:03 Family History Mother Cancer LUNG Heart disease Father Cancer lung Sister Cancer lung Heart disease Sister Cancer lung Sister Cancer lung Sister Colon cancer Surgical History Hx of fracture of leg Hx of fracture of foot History of bronchoscopy Hx of biopsy History of lobectomy of lung Hx of oral surgery History of open heart surgery (05/08/15) Social History household members: none housing: other 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 Physical Exam Const alert, oriented x3 and average body habitus Resp normal air movement and clear to auscultation bilaterally Effort and Inspection: decreased respiratory effort Cardio regular rate, regular rhythm, no murmurs and diaphoretic
--- NOTE | 2024-09-06 12:07 | PCM.PN.BLA ---
Progress Note Patient has been n.p.o. for upper endoscopy today to evaluate his worsening iron deficiency anemia. Physical Exam Const alert, oriented x3, no apparent distress and healthy appearing General Appearance: cooperative GI normal to inspection, nondistended, normoactive bowel sounds, soft to palpation, non-tender and non-distended Percussion: normal to percussion Rectal Exam: deferred Assessment & Plan Assessment/Plan (1) Anemia: PLAN: Patient seems to have a microcytic iron deficiency anemia and a normocytic anemia. He should undergo an EGD and possible colonoscopy plus or minus capsule endoscopy to evaluate his GI tract for signs of acute on chronic blood loss anemia. Keep n.p.o. past midnight. He was explained alternatives, risk and benefits include not withstanding bleeding, infection, sepsis, perforation, need for more surgery . He will have an ASA of 3. Visit Charges Inpatient E&M: 50885 Subs Hosp L2
[2024-09-06 12:08] LABS: Folate, RBC (Hct) Test 22.6 % (37.5-51.0); Folates, RBC Test 1836 ng/mL (>498)
--- NOTE | 2024-09-06 12:13 | PN.HOSP_ITS ---
Reason for Visit Reason for Visit: Diagnoses Sepsis, unspecified organism (09/04/24) Anemia, unspecified (09/04/24) Hypo-osmolality and hyponatremia (09/04/24) Hypokalemia (09/04/24) Pneumonia, unspecified organism (09/04/24) Chronic obstructive pulmonary disease, unspecified (09/04/24) Weakness (09/04/24) Severe sepsis with septic shock (09/04/24) Subjective Subjective Saw patient at bedside this morning shortly before he went down for his EGD. He was laying back comfortably in bed in no acute distress. [place] similar today to previous days. No new concerns this morning. Objective Data Objective Data Vital Signs: Vital Signs Temp Pulse Resp BP Pulse Ox O2 Del Method O2 Flow Rate 98.1 F 92 18 121/76 H 97 Nasal Cannula 2 09/06/24 11:34 09/06/24 11:34 09/06/24 11:34 09/06/24 11:34 09/06/24 11:34 09/06/24 11:34 09/06/24 11:34 Oxygen Flow Rate (L/min) 2 Oxygen Delivery Method Nasal Cannula Weight: 83.4 kg Body Mass Index (BMI) 27.1 Intake & Output: Intake and Output for Last 24 Hours 09/04/24 09/05/24 09/06/24 23:59 23:59 23:59 Intake Total 4183.2 / 4183.2 3580.13 / 3580.13 2213.75 / 2213.75 Output Total 1700 / 1700 2850 / 2850 580 / 580 Balance 2483.2 / 2483.2 730.13 / 730.13 1633.75 / 1633.75 Lab / Micro Data 09/06/24 05:42 09/06/24 05:42 Labs: Laboratory Results - last 24 hr 09/04/24 16:47: RBC Folate Hemolysate 415.0, RBC Folate 1836, Hematocrit 22.6 L 09/05/24 06:14: Hemoglobin A1c 7.7 H 09/05/24 12:10: POC Glucose 181 H 09/05/24 16:23: POC Glucose 256 H 09/05/24 21:39: POC Glucose 287 H 09/06/24 05:42: WBC 8.3, RBC 2.82 L, Hgb 7.8 L, Hct 24.8 L, MCV 87.9, MCH 27.7, MCHC 31.5 L, RDW Std Deviation 55.7 H, RDW Coeff of Jaquan 17.2 H, Plt Count 179, MPV 9.8, PT 17.5 H, INR 1.4, APTT 39.0 H, Sodium 137, Potassium 3.6, Chloride 98, Carbon Dioxide 26.5, Anion Gap 12, BUN 8, Creatinine 0.69 L, Estim Creat Clear Calc 88.38, Est GFR (MDRD) Non-Af 101, BUN/Creatinine Ratio 10.9, Glucose 248 H, Calcium 7.7, Vancomycin Trough 8.6 09/06/24 06:16: POC Glucose 219 H Micro: Microbiology 09/06/24 10:30 Stool Stool Occult Blood (DORYS) - Final Occult Blood Positive 09/04/24 12:40 Urine, Clean Catch Urine Culture - Final Culture exhibits no growth. 09/04/24 11:00 Blood Culture (Wb) - Anticubital Left Blood Culture - Preliminary Staphylococcus aureus 09/04/24 11:00 Blood Culture (Wb) - Anticubital Left Blood Culture - Preliminary 09/05/24 06:33 Sputum, Expectorated/Coughed Gram Stain - Final 09/05/24 06:33 Sputum, Expectorated/Coughed Respiratory Culture - Final 09/04/24 19:26 Stool Enteric Bacteriology - Final 09/04/24 19:26 Stool Clostridioides difficile (PCR) - Final 09/04/24 11:06 Mucosa - Nose SARS-CoV-2, Influenza & RSV (PCR) - Final Physical Exam Const alert, oriented x3 and no apparent distress Constitutional Narrative: Upper middle-aged male, appears older than stated age, thin and cachectic appearing, mildly fatigued and pale appearing, otherwise laying back comfortably in bed, conversing normally, in no acute distress. Stable. General Appearance: cooperative and comfortable HEENT normocephalic, head/scalp atraumatic, hearing grossly normal bilaterally, nasal mucous membranes and turbinates normal and moist oral mucous membranes Eyes PERRL, EOMs intact bilaterally and conjunctivae normal Neck full ROM Chest inspection of chest normal Resp normal respiratory effort and no use of accessory muscles Resp Narrative: Breathing comfortably on 3 L nasal cannula at rest. Mildly diminished breath sounds bilaterally with mild upper airway wheezing noted. No crackles noted. Improving. Cardio regular rate, regular rhythm, no murmurs and peripheral pulses 2+ throughout GI normal to inspection, nondistended, normoactive bowel sounds, soft to palpation, non-tender and non-distended Extremity normal to inspection and no pedal edema Skin no rashes or lesions noted Neuro Neuro Narrative: Generalized weakness noted. Psych mental status grossly normal Assessment & Plan Assessment/Plan (1) Weakness: (2) Anemia: (3) Septic shock: (4) Pneumonia: PLAN: Plan Patient is a 69-year-old male who presented to [facility] ED on 09/04/2024 with generalized weakness with a fall. 1. Septic shock and acute hypoxia suspected secondary to pneumonia and COPD exacerbation, gram-positive bacteremia ? Tennis Net [employer] following. ID consulted. On home oxygen, requiring 4 L on admit to maintain appropriate saturations. Clinical concern for left upper lobe pneumonia as precipitating etiology. Patient ultimately developed fluid refractory hypotension requiring the initiation of vasopressor support to maintain hemodynamic stability. Blood cultures prelim positive for both Staph aureus and group G strep on 09/06. TTE ordered. Continue IV vancomycin and Zosyn for now. Initiated on IV steroids and scheduled DuoNebs on 09/05. Wean supplemental oxygen as able. Appreciate further ID recommendations. 2. Metastatic lung cancer with recent radiation therapy ? Follows with outpatient oncology and radiation oncology. See quick note for further details on cancer history. In short, patient was recently initiated on radiation therapy for metastases to T6 and T7. It appears he completed 3 of 5 rounds of radiation that were planned for this. Has history of resection of cancer in [place] in 2016 and radiation therapy of cancer in [place] in 2023. Case management following as below. Patient is certainly an appropriate palliative care candidate at this time and pending clinical course, may be appropriate for hospice care. Will follow closely. 3. Acute on chronic debility ? PT/OT/case management following. Patient lives at home alone and appears to have poor social support. Appreciate therapy and case management recommendations. 4. Acute on chronic anemia ? Hemoglobin 7.2 on admit, dropped to 6.8 on hospital day 2. Hemoglobin in June was 11 and that appeared to be his baseline. In [facility] records, hemoglobin 9.7 on CBC from 08/21. Patient denies change in bowel movements. Iron studies notably with high ferritin consistent with anemia of chronic disease. Transfuse 1 unit of blood with repeat hemoglobin 7.8 on morning of 09/06. EGD on 09/06 was unremarkable. Will de-escalate to p.o. PPI daily. Continue to monitor CBC daily. Appreciate further GI recs. 5. Concern for malnutrition ? Nutrition following. BMI 17 on admit. However per nutrition, did not meet criteria for malnutrition. Supplements of Ensure clear and Ensure plus high- protein will be added to meals. Appreciate further nutrition recommendations. Chronic medical conditions: ? BPH with obstructive symptoms: Patient with significant urinary retention on admission relieved with straight cath. Will continue to monitor with bladder scans as needed and can consider Hollis catheterization if retaining. Continue home Flomax. ? History of CAD with CABG, hypertension, hyperlipidemia: Had CABG back in 2016. Hypotensive on admit as above. Continue home statin. Restarted home aspirin on 09/06. Holding home beta-yajaira and Lasix for now. ? Type 2 diabetes mellitus with diabetic neuropathy: Continue Humalog 75-25 mix at 15 units twice daily along with sliding scale insulin with meals, adjust as needed. Continue home gabapentin. ? Anxiety/depression: Continue home paroxetine and Ativan as needed. ? GERD: Treating with p.o. PPI daily as above. DVT prophylaxis: Lovenox CODE STATUS: Full code, verified Expected disposition: TBD Total clinical time spent by myself addressing the patient's medical issues, reviewing all the data, and collaborating with patient's care team: 35 minutes. Charges/Coding Visit Charges Inpatient E&M: 52202 Subs Hosp L2
--- NOTE | 2024-09-06 12:40 | PCM.POST.ANE ---
Anesthesia: Postop Eval I Current Vital Signs Temperature: 97 F Pulse Rate: 96 Blood Pressure: 90/72 Respiratory Rate: 18 Pulse Ox: 98 Assessment Airway patent: Yes Spontaneous unlabored respirations: Yes nausea: No Vomiting: No Anesthesia Complication: No Fluid Hydration Crystalloid volume administer (ml): 500 Total IV fluid infused: 500 Progress Note Anesthesia document: Postop Eval 1 completed: Yes
--- NOTE | 2024-09-06 12:41 | SUR.PHASEI ---
FREQUENT COUGH, REPORTS SPUTUM IN THROAT BUT UNABLE TO EXPECTORATE, STATING I CAN'T BREATHE REPEATEDLY, ADMITS TO COPD WHICH HAS BEEN WORSE WITH THE HOT/HUMID WEATHER. SPO2 98% ON 3 L/MIN, LUNGS CLEAR, BASES MILDLY DIMINISHED. [address] RAMAN, ANESTHESIA, REQUESTING MORPHINE 4 MG TO HELP PATIENT BREATHE EASIER, HE ORDERED DUONEB TREATMENT.
--- NOTE | 2024-09-06 12:55 | OP.EGD_ITS ---
Patient Name: John Farrell Procedure Date: 09/06/2024 12:12 PM Date of : 1955 Age: 69 Procedure: Upper GI endoscopy Indications: Iron deficiency anemia, Unexplained iron deficiency anemia Providers: Wild Gallagher DO Medicines: Monitored Anesthesia Care Patient Profile: This is a 69 year old male. Refer to note in patient chart for documentation of history and physical. Patient has symptoms. Complications: No immediate complications. Procedure: Pre-Anesthesia Assessment: - Prior to the procedure, a History and Physical was performed, and patient medications and allergies were reviewed. The patient is competent. The risks and benefits of the procedure and the sedation options and risks were discussed with the patient. All questions were answered and informed consent was obtained. Patient identification and proposed procedure were verified by the physician in the pre-procedure area. Mental Status Examination: alert and oriented. Airway Examination: normal oropharyngeal airway and neck mobility. Respiratory Examination: clear to auscultation. CV Examination: normal. Prophylactic Antibiotics: The patient does not require prophylactic antibiotics. Prior Anticoagulants: The patient has taken no anticoagulant or antiplatelet agents. ASA Grade Assessment: II - A patient with mild systemic disease. After reviewing the risks and benefits, the patient was deemed in satisfactory condition to undergo the procedure. The anesthesia plan was to use monitored anesthesia care (MAC). Immediately prior to administration of medications, the patient was re-assessed for adequacy to receive sedatives. The heart rate, respiratory rate, oxygen saturations, blood pressure, adequacy of pulmonary ventilation, and response to care were monitored throughout the procedure. The physical status of the patient was re-assessed after the procedure. After obtaining informed consent, the endoscope was passed under direct vision. Throughout the procedure, the patient's blood pressure, pulse, and oxygen saturations were monitored continuously. The colonoscope was introduced through the mouth, and advanced to the fourth part of the duodenum. Small bowel enteroscopy was deemed necessary. The upper GI endoscopy was accomplished without difficulty. The patient tolerated the procedure well. Scope In: 12:26:06 PM Scope Out: 12:32:54 PM Total Procedure Duration Time 0 hours 6 minutes 48 seconds Findings: The examined esophagus was normal. No gross lesions were noted in the entire examined stomach. No gross lesions were noted in the entire examined duodenum. Impression: - Normal esophagus. - No gross lesions in the entire stomach. - No gross lesions in the entire examined duodenum. - No specimens collected. Recommendation: - [facility] patient to [facility]. - Resume previous diet. - Continue present medications. - Colonoscopy Procedure Code(s): --- Professional --- 19380, Small intestinal endoscopy, enteroscopy beyond second portion of duodenum, not including ileum; diagnostic, including collection of specimen(s) by brushing or washing, when performed (separate procedure) CPT copyright 2021 [employer]. All rights reserved. The codes documented in this report are preliminary and upon machine assembler review may be revised to meet current compliance requirements. Wild Gallagher DO 09/06/2024 12:54:26 PM This report has been signed electronically. Number of Addenda: 0 Note Initiated On: 09/06/2024 12:12 PM
--- NOTE | 2024-09-06 12:55 | OP.CCLET_ITS ---
09/06/2024 Desiree Saleh Md Re : Upper GI endoscopy procedure for John Farrell Dear Therese This procedure was performed on Friday, September 06, 2024. My impressions and recommendations are as follows: Impressions : - Normal esophagus. - No gross lesions in the entire stomach. - No gross lesions in the entire examined duodenum. - No specimens collected. Recommendations : - [facility] to [facility]. - Resume previous diet. - Continue present medications. - Colonoscopy My findings are described in the full procedure note, which is enclosed. If I can be of further assistance, please feel free to contact me at . Sincerely, Wild Gallagher, 09/06/2024 12:54:26 PM This report has been signed electronically.
--- NOTE | 2024-09-06 13:24 | POSTOPAN2_ITS ---
Anesthesia Postop Eval I Sum Postop Eval Completion status Anesthesia document: Postop Eval 1 completed: Yes Anesthesia Postop Eval I Summary Anesthesia Postop Eval I Summary: Anesthesia Postop Eval I: Assessment Summary Airway patent Yes 09/06/24 13:23 BANK TELLER MACHINE [email or web address] Spontaneous unlabored Yes 09/06/24 13:23 BANK TELLER MACHINE MECHANIC.CSIR respirations Mental status nausea No 09/06/24 13:23 BANK TELLER MACHINE MECHANIC.CSIR Vomiting No 09/06/24 13:23 BANK TELLER MACHINE MECHANIC.CSIR Anesthesia Postop Eval I: Fluid Summary Crystalloid volume administer 500 09/06/24 13:23 BANK TELLER MACHINE MECHANIC.CSIR (ml) Colloids volume administered ( ml) Blood Product volume administered (ml) Total IV fluid infused 500 09/06/24 13:23 BANK TELLER MACHINE MECHANIC.CSIR Anesthesia Postop Eval I: Summary Notes Anesthesia Complication No 09/06/24 13:23 BANK TELLER MACHINE MECHANIC.CSIR Anesthesia Complication Comment: Post-operative progress note Anesthesia: Postop Eval II Evaluation Mental status: Awake Pain Level: 0 nausea: No Vomiting: No
--- NOTE | 2024-09-06 13:24 | PCM.POSTANE2 ---
Anesthesia Postop Eval I Sum Postop Eval Completion status Anesthesia document: Postop Eval 1 completed: Yes Anesthesia Postop Eval I Summary Anesthesia Postop Eval I Summary: Anesthesia Postop Eval I: Assessment Summary Airway patent Yes 09/06/24 13:23 FUNDRAISING [email or web address] Spontaneous unlabored Yes 09/06/24 13:23 FUNDRAISING OFFICER.CSIR respirations Mental status nausea No 09/06/24 13:23 FUNDRAISING OFFICER.CSIR Vomiting No 09/06/24 13:23 FUNDRAISING [email or web address].CSIR Anesthesia Postop Eval I: Fluid Summary Crystalloid volume administer 500 09/06/24 13:23 FUNDRAISING [email or web address].CSIR (ml) Colloids volume administered ( ml) Blood Product volume administered (ml) Total IV fluid infused 500 09/06/24 13:23 FUNDRAISING OFFICER.CSIR Anesthesia Postop Eval I: Summary Notes Anesthesia Complication No 09/06/24 13:23 FUNDRAISING [email or web address].CSIR Anesthesia Complication Comment: Post-operative progress note Anesthesia: Postop Eval II Evaluation Mental status: Awake Pain Level: 0 nausea: No Vomiting: No
[2024-09-06] MEDS: Tamsulosin HCl 0.4 MG Capsule PO (14:13)
[2024-09-06] MEDS: Aspirin E.C. 81 MG Tablet PO (14:13)
[2024-09-06] MEDS: ROFLUMILAST 500 MCG TABLET 250 MCG PO (14:13)
[2024-09-06] MEDS: PARoxetine 10 MG Tablet PO (14:13)
[2024-09-06] MEDS: Na Biphos/Potassium Phosphate PACKET 1 PACKET PO ×2 (14:25→16:35)
[2024-09-06 14:40] LABS: Bedside Glucose 255 mg/dL (74-106)
[2024-09-06] MEDS: Insulin Lispro 100 UNIT/ML INSULN.PEN SC ×2 (14:52→16:30)
[2024-09-06] MEDS: Albuterol 2.5 MG/3 ML VIAL.NEB. INHALATION ×2 (14:53→14:56)
[2024-09-06] MEDS: Insulin Human 75/25 Kwickpen 15 UNIT SC (16:34)
[2024-09-06] MEDS: Bisacodyl 5 MG Tablet 20 MG PO (16:43)
--- NOTE | 2024-09-06 16:43 | ECHOD_ITS ---
Reason For Study Reason For Study: ENDOCARDITIS Procedure This was a 2D Doppler, Color Flow transthoracic echocardiogram. Exam performed portable in patient room. Left Ventricle Normal LV size. Mild concentric left ventricular hypertrophy. The LV ejection fraction is 60 %. Stage 1 diastolic dysfunction. Right Ventricle Normal right ventricle. Atria The left atrium is mildly enlarged. Normal right atrium. Mitral Valve Moderate mitral valve annular calcification. Trivial mitral valve regurgitation. Tricuspid Valve Normal tricuspid valve. Aortic Valve Trisinus/trileaflet aortic valve. Pulmonic Valve The pulmonic valve is not well visualized. Great Vessels Normal sized aortic root. Pericardium/Pleural No pericardial effusion. MMode/2D Measurements & Calculations LVIDd: 5.0 cm IVSd: 1.2 cm Ao root diam: 3.3 cm LVIDs: 3.5 cm LVPWd: 1.1 cm RVDd: 3.7 cm FS: 28.8 % LAV(MOD-bp): 53.2 ml LVAd ap4: 31.8 cm2 SV(MOD-sp4): 60.8 ml LAV(MOD-bp) Indexed: 26.7 ml/m2 LVLd ap4: 8.0 cm SI(MOD-sp4): 30.5 ml/m2 LAV(MOD-sp2): 50.9 ml EDV(MOD-sp4): 102.7 ml LAV(MOD-sp4): 55.7 ml EDV(sp4-el): 106.6 ml LVAs ap4: 18.2 cm2 LVLs ap4: 6.6 cm ESV(MOD-sp4): 41.9 ml ESV(sp4-el): 42.7 ml EF(MOD-sp4): 59.2 % EF(sp4-el): 59.9 % SV(sp4-el): 63.9 ml LA A4 area: 19.4 cm2 LA dimension(2D): 3.5 cm RA A4 area: 16.8 cm2 TAPSE: 2.4 cm Time Measurements MV dec time: 0.15 sec Doppler Measurements & Calculations MV E max daniel: 148.6 cm/sec Lat Peak E' Daniel: 9.1 cm/sec Med Peak E' Daniel: 9.5 cm/sec MV A max daniel: 179.5 cm/sec E/E' lat: 16.3 E/E' med: 15.6 MV E/A: 0.83 Ao V2 max: 175.6 cm/sec LV V1 max: 162.3 cm/sec PA V2 max: 109.2 cm/sec Ao max P.3 mmHg LV V1 max P.5 mmHg ECHO/Echo Complete Interpretation Summary The LV ejection fraction is 60 %. Stage 1 diastolic dysfunction. The left atrium is mildly enlarged. Moderate mitral valve annular calcification. Trivial mitral valve regurgitation . No valvular vegetations noted on the surface echocardiogram. Consider transesop hageal echocardiogram for further evaluation if clinically indicated. Ordering Physician: Stanton Ortega Referring Physician: ANGELICA RODRIGUEZ Performed By: Ramila Rice RDCS and Student
[2024-09-06 16:53] LABS: Bedside Glucose 275 mg/dL (74-106)
[2024-09-06] MEDS: Electrolyte Solution/Peg's 4000 ML PO (18:04)
[2024-09-06] MEDS: Atorvastatin Calcium 20 MG Tablet PO (21:45)
[2024-09-06] MEDS: Gabapentin 300 MG Capsule PO (21:47)
[2024-09-06 22:30] LABS: Bedside Glucose 231 mg/dL (74-106)
[2024-09-07] VITALS (14 sets, daily range): BP systolic 109–146; BP diastolic 59–82; PULSE 70–110; RESP 16–20; TEMP 36.3–36.9; O2SAT 95–100; BMI 27.3
[2024-09-07 05:52] LABS: Hematocrit 27.3 % (40-54); Hemoglobin 8.6 g/dL (13.0-16.5); Mean Corp Hgb Conc 31.5 g/dL (32-36); Mean Corpuscular Hgb 27.6 pg (27.0-32.0); Mean Corpuscular Volume 87.5 fL (80-94); Mean Platelet Vol. 9.5 fl (6.2-12.0); Platelet Count 179 K/mm3 (150-450); RBC Distribution Width CV 17.2 % (11.6-14.6); RBC Distribution Width SD 55.2 fl (35.1-43.9); Red Blood Count 3.12 M/mm3 (4.6-6.2); White Blood Count 9.7 K/mm3 (4.4-11.0)
[2024-09-07 06:12] LABS: International Normalized Ratio 1.4; Prothrombin Time (Protime)PT. 17.3 SECONDS (11.7-14.9)
[2024-09-07] MEDS: MethylPREDNISolone 125 MG/2 ML Vial 60 MG IV ×3 (06:23→21:53)
[2024-09-07] MEDS: Piperacil/Tazobactam 3.375 GM in 0.9% Normal Saline (50mL MB+) 50 ML IV (06:24)
[2024-09-07 06:35] LABS: Anion Gap 13 (5-15); BUN 9 mg/dL (4-19); BUN/Creat Ratio 12.7 RATIO (10-20); Calcium,Total 7.4 mg/dL (7.6-11.0); Carbon Dioxide 27.8 mmol/L (21.0-32.0); Chloride 99 mmol/L (98-108); Creatinine, Serum 0.74 mg/dL (0.70-1.20); EST Glomerular Filtration Rate 99 (>60); Estimated Creatinine Clearance 88.38 ml/min (50-250); Glucose 213 mg/dL (70-99); Magnesium 2.2 mg/dL (1.5-2.2); Phosphorus 1.6 mg/dL (2.7-4.5); Sodium Level 140 mmol/L (133-145)
[2024-09-07] MEDS: Vancomycin IV 1,000 MG/200 ML BAG 200 MG IV (08:03)
[2024-09-07] MEDS: Menthol/Lanolin/Calamine/Znox 113 GM Tube 1 APPLIC TOPICAL ×3 (08:04→21:54)
--- NOTE | 2024-09-07 08:46 | ANES.CONFIRM ---
Anesthesia: Confirm Documents Multiple Procedures on Account (2) Confirmed Documents: Yes
--- NOTE | 2024-09-07 08:48 | WOUNDNOTE ---
Pt currently getting echo. will assess left 5th toe later this am.
--- NOTE | 2024-09-07 09:59 | PCM.CONS.GEN ---
Assessment & Plan Assessment/Plan (1) Septic shock: (2) MSSA bacteremia: PLAN: Suspect due to lung cancer vs trauma to L 5th toe complicated by dry gangrene. Single bcx also with strep. TTE pending. Will repeat bcx. Narrow abx to cefazolin/flagyl. Overall much improved, off pressor, out of icu, fever resolved. Will follow, thank you HPI Consult Data Date of Consult: 09/07/24 HPI Narrative Reason for Consultation: bacteremia HPI Narrative: REY MEAD, is a 69 M with lung cancer on radiation therapy, h/o ELLEN, COPD, BPH, CAD. Presented to ED 09/04 with fall. Had been feeling ok prior to that. No fever, no sputum, no new joint/back pain. Reports hitting L 5th toe about a week ago and it turning black. No redness or drainage. Came to ED, admitted on vanc/zosyn. Started on pressors. Now out of icu, feeling better. Full ROS performed and neg except as noted above. [facility] Medical History Alcohol use Excessive bleeding History of echocardiogram History of stress test Cardiology follow-up encounter Chest pain Vitamin D deficiency Left adrenal mass CAD (coronary artery disease) Blind Cancer Depression Anxiety Diabetes Prostate disease DVT (deep venous thrombosis) High cholesterol Easy bruising Umbilical hernia Neuropathy Injury of head and neck Syncope Former smoker On home oxygen therapy CPAP (continuous positive airway pressure) dependence COPD (chronic obstructive pulmonary disease) Shortness of breath on exertion History of edema Hypertension Home Medications ?Medication ?Instructions ?Recorded ?Last Taken ?Type albuterol sulfate 2.5 mg/3 mL 2.5 mg inhalation DAILY 01/08/23 09/03/24 History (0.083 %) solution for nebulization albuterol sulfate 90 mcg/actuation 2 puff inhalation PRN PRN 01/08/23 05/30/24 History aerosol inhaler shortness of breath or wheezing aspirin 81 mg tablet,delayed 81 mg PO DAILY 01/08/23 09/04/24 History release atorvastatin 20 mg tablet 20 mg PO QHS 01/08/23 09/03/24 History dapagliflozin propanediol 5 mg 5 mg PO DAILY 01/08/23 09/03/24 History tablet (Farxiga) fluticasone fur. 100 mcg-umeclid 1 inh inhalation DAILY 01/08/23 09/03/24 History 62.5 mcg-vilant 25 mcg inhalat.powder (Trelegy Ellipta) furosemide 40 mg tablet 40 mg PO DAILY 01/08/23 09/04/24 History paroxetine HCl 10 mg tablet 10 mg PO DAILY 01/08/23 09/04/24 History pregabalin 150 mg capsule 150 mg PO DAILY 01/08/23 09/04/24 History roflumilast 250 mcg tablet 250 mcg PO DAILY 01/08/23 09/04/24 History tamsulosin 0.4 mg capsule 0.4 mg PO Q24H 01/08/23 09/04/24 History metformin 500 mg tablet,extended 1,500 mg PO QHS 03/22/24 09/04/24 History release 24hr (osmotic) gabapentin 300 mg capsule 300 mg PO QHS 05/10/24 09/03/24 History lorazepam 1 mg tablet 1 mg PO TID #90 tabs 07/04/24 Unknown Rx esomeprazole magnesium 40 mg 40 mg PO DAILY 09/04/24 09/03/24 History capsule,delayed release insulin lispro protamine-lispro 15 unit subcut BIDCM 09/04/24 09/04/24 History 100 unit/mL (75-25) subcutaneous pen (Humalog Mix 75-25 KwikPen) metoprolol succinate 25 mg 25 mg PO DAILY 09/04/24 09/04/24 History tablet,extended release 24 hr oxycodone 5 mg tablet 5 - 10 mg PO Q6H PRN PRN pain 09/04/24 Unknown History prednisone 5 mg tablet 15 mg PO DAILY 09/04/24 Unknown History semaglutide 7 mg tablet (Rybelsus) 7 mg PO DAILY 09/04/24 09/04/24 History vitamin B complex (Complex B-100 1 tab PO DAILY 09/04/24 09/04/24 History tablet,extended release) Allergy/AdvReac Type Severity Reaction Status Date / Time No Known Allergies Allergy Verified 07/24/24 10:03 Family History Mother Cancer LUNG Heart disease Father Cancer lung Sister Cancer lung Heart disease Sister Cancer lung Sister Cancer lung Sister Colon cancer Surgical History Hx of fracture of leg Hx of fracture of foot History of bronchoscopy Hx of biopsy History of lobectomy of lung Hx of oral surgery History of open heart surgery (05/08/15) Social History household members: none housing: other 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 Smoking Status: Former smoker quit date: 03/15/15 pack-years: 120 alcohol intake: current alcohol intake frequency: a few times a month Alcohol type: beer substance use type: does not use what type of physical activity do you participate in: none seatbelt use: always do you feel safe at home: Yes Physical Exam Const alert, oriented x3 and no apparent distress General Appearance: cooperative HEENT normocephalic and head/scalp atraumatic Eyes PERRL and EOMs intact bilaterally Neck supple and No nodes Resp Auscultation: rhonchi Cardio regular rate, regular rhythm and no murmurs GI soft to palpation, non-tender and non-distended Extremity General Extremity: Negative for edema Skin Skin Narrative: no splinter hemorrhages on hands or feet. L 5th toe is black, dry. Neuro CN's II-XII intact bilaterally Lab / Micro Data Attestation: I reviewed the patient's lab results. 09/07/24 05:36 09/07/24 05:36 Labs: Laboratory Results - last 24 hr 09/04/24 16:47: RBC Folate Hemolysate 415.0, RBC Folate 1836, Hematocrit 22.6 L 09/06/24 14:01: POC Glucose 255 H 09/06/24 16:28: POC Glucose 275 H 09/06/24 21:41: POC Glucose 231 H 09/07/24 05:36: WBC 9.7, RBC 3.12 L, Hgb 8.6 L, Hct 27.3 L, MCV 87.5, MCH 27.6, MCHC 31.5 L, RDW Std Deviation 55.2 H, RDW Coeff of Jaquan 17.2 H, Plt Count 179, MPV 9.5, PT 17.3 H, INR 1.4, APTT 32.0, Sodium 140, Potassium 3.0 L, Chloride 99, Carbon Dioxide 27.8, Anion Gap 13, BUN 9, Creatinine 0.74, Estim Creat Clear Calc 88.38, Est GFR (MDRD) Non-Af 99, BUN/Creatinine Ratio 12.7, Glucose 213 H, Calcium 7.4 L, Phosphorus 1.6 L, Magnesium 2.2 Micro: Microbiology 09/04/24 11:00 Blood Culture (Wb) - Anticubital Left Blood Culture - Preliminary Streptococcus group G Staphylococcus aureus 09/04/24 11:00 Blood Culture (Wb) - Anticubital Left Blood Culture - Final Staphylococcus aureus 09/06/24 10:30 Stool Stool Occult Blood (DORYS) - Final Occult Blood Positive 09/04/24 12:40 Urine, Clean Catch Urine Culture - Final Culture exhibits no growth.
--- NOTE | 2024-09-07 11:46 | PCM.PN.HOSP ---
Reason for Visit Reason for Visit: Diagnoses Sepsis, unspecified organism (09/04/24) Methicillin susceptible Staphylococcus aureus infection as the cause of diseases classified elsewhere (09/04/24) Anemia, unspecified (09/04/24) Hypo-osmolality and hyponatremia (09/04/24) Hypokalemia (09/04/24) Pneumonia, unspecified organism (09/04/24) Chronic obstructive pulmonary disease, unspecified (09/04/24) Weakness (09/04/24) Severe sepsis with septic shock (09/04/24) Bacteremia (09/04/24) Objective Data Objective Data Vital Signs: Vital Signs Temp Pulse Resp BP Pulse Ox O2 Del Method O2 Flow Rate 97.8 F 77 18 139/72 H 98 Nasal Cannula 3 09/07/24 08:27 09/07/24 08:27 09/07/24 08:27 09/07/24 08:27 09/07/24 08:27 09/07/24 08:27 09/07/24 08:27 Oxygen Flow Rate (L/min) 3 Oxygen Delivery Method Nasal Cannula Weight: 184 lb 11.958 oz Body Mass Index (BMI) 27.3 Intake & Output: Intake and Output for Last 24 Hours 09/05/24 09/06/24 09/07/24 23:59 23:59 23:59 Intake Total 3580.13 / 3580.13 2841.42 / 2841.42 300 / 300 Output Total 2850 / 2850 580 / 580 825 / 825 Balance 730.13 / 730.13 2261.42 / 2261.42 -525 / -525 Lab / Micro Data 09/07/24 05:36 09/07/24 05:36 Labs: Laboratory Results - last 24 hr 09/04/24 16:47: RBC Folate Hemolysate 415.0, RBC Folate 1836, Hematocrit 22.6 L 09/06/24 14:01: POC Glucose 255 H 09/06/24 16:28: POC Glucose 275 H 09/06/24 21:41: POC Glucose 231 H 09/07/24 05:36: WBC 9.7, RBC 3.12 L, Hgb 8.6 L, Hct 27.3 L, MCV 87.5, MCH 27.6, MCHC 31.5 L, RDW Std Deviation 55.2 H, RDW Coeff of Jaquan 17.2 H, Plt Count 179, MPV 9.5, PT 17.3 H, INR 1.4, APTT 32.0, Sodium 140, Potassium 3.0 L, Chloride 99, Carbon Dioxide 27.8, Anion Gap 13, BUN 9, Creatinine 0.74, Estim Creat Clear Calc 88.38, Est GFR (MDRD) Non-Af 99, BUN/Creatinine Ratio 12.7, Glucose 213 H, Calcium 7.4 L, Phosphorus 1.6 L, Magnesium 2.2 Micro: Microbiology 09/04/24 11:00 Blood Culture (Wb) - Anticubital Left Blood Culture - Preliminary Streptococcus group G Staphylococcus aureus 09/04/24 11:00 Blood Culture (Wb) - Anticubital Left Blood Culture - Final Staphylococcus aureus 09/06/24 10:30 Stool Stool Occult Blood (DORYS) - Final Occult Blood Positive 09/04/24 12:40 Urine, Clean Catch Urine Culture - Final Culture exhibits no growth. 09/05/24 06:33 Sputum, Expectorated/Coughed Gram Stain - Final 09/05/24 06:33 Sputum, Expectorated/Coughed Respiratory Culture - Final 09/04/24 19:26 Stool Enteric Bacteriology - Final 09/04/24 19:26 Stool Clostridioides difficile (PCR) - Final 09/04/24 11:06 Mucosa - Nose SARS-CoV-2, Influenza & RSV (PCR) - Final Physical Exam Narrative Seen and examined. Patient has mild cough, not able to bring up phlegm with some chest congestion. Easily gets short of breath even on going to bathroom. On 3 L of oxygen Physical exam General: Alert, Oriented x3, Cooperative. BMI 27 point EKG prescribed HEENT: Atraumatic, PERRLA, EOMI, Normocephalic. Oral: No Gingival or Mucosal Lesions/ Ulcerations Neck: Supple, No JVD, Negative Carotid Bruits Chest wall/Lungs: Air entry diminished in bilateral lungs. Bilateral coarse crepitation Cardiovascular: Regular rate and rhythm, Normal S1,S2, no murmur gallop Abdomen: Bowel Sounds Present, Soft, Non Tender, Non-Distended : No dysuria. No renal angle tenderness. No suprapubic tenderness. Extremities: Mild 1 edema, Capillary Refill Less than 3 Seconds Skin: No rashes, No breakdown Musculoskeletal: No Tenderness to Palpation of Joints or Extremities Neurological: Cranial nerves II-XII grossly intact, DTR 2+/4. No acute focal neurological deficit. Psych/Mental Status: Normal Affect, Appropriate. Assessment & Plan Assessment/Plan (1) Weakness: (2) Anemia: (3) Septic shock: (4) Pneumonia: PLAN: Plan Patient is a 69-year-old male who presented to [facility] ED on 09/04/2024 with generalized weakness with a fall. 1. Septic shock and acute hypoxia suspected secondary to pneumonia and COPD exacerbation, gram-positive bacteremia ? Senior Insight Manager following. ID consulted. On home oxygen, requiring 4 L on admit to maintain appropriate saturations. Clinical concern for left upper lobe pneumonia as precipitating etiology. Patient ultimately developed fluid refractory hypotension requiring the initiation of vasopressor support to maintain hemodynamic stability. Blood cultures prelim positive for both Staph aureus and group G strep on 09/06. TTE ordered. Continue IV vancomycin and Zosyn for now. Initiated on IV steroids and scheduled DuoNebs on 09/05. Wean supplemental oxygen as able. Appreciate further ID recommendations. 09/07: ID follow-up reviewed. Septic shock suspected due to lung cancer versus trauma to left fifth toe complicated by dry gangrene. Repeat blood culture ordered. Narrow antibiotic to cefazolin and Flagyl. Septic shock resolved with no fever, off pressor. Urine culture shows no growth. 2. Metastatic lung cancer with recent radiation therapy ? Follows with outpatient oncology and radiation oncology. See quick note for further details on cancer history. In short, patient was recently initiated on radiation therapy for metastases to T6 and T7. It appears he completed 3 of 5 rounds of radiation that were planned for this. Has history of resection of cancer in [place] in 2016 and radiation therapy of cancer in [place] in 2023. Case management following as below. Patient is certainly an appropriate palliative care candidate at this time and pending clinical course, may be appropriate for hospice care. 09/07: Follow-up outpatient with radiation oncology and medical oncology 3. Acute on chronic debility ? PT/OT/case management following. Patient lives at home alone and appears to have poor social support. Appreciate therapy and case management recommendations. 4. Acute on chronic anemia ? Hemoglobin 7.2 on admit, dropped to 6.8 on hospital day 2. Hemoglobin in June was 11 and that appeared to be his baseline. In [facility] records, hemoglobin 9.7 on CBC from 08/21. Patient denies change in bowel movements. Iron studies notably with high ferritin consistent with anemia of chronic disease. Transfuse 1 unit of blood with repeat hemoglobin 7.8 on morning of 09/06. EGD on 09/06 was unremarkable.p.o. PPI daily. 09/07: H&H 8.6/27%. Platelet count 03/22/1978 K. Monitor CBC 5. Concern for malnutrition ? Nutrition following. BMI 17 on admit. However per nutrition, did not meet criteria for malnutrition. Supplements of Ensure clear and Ensure plus high-protein will be added to meals. Appreciate further nutrition recommendations. Chronic medical conditions: ? BPH with obstructive symptoms: Patient with significant urinary retention on admission relieved with straight cath. Will continue to monitor with bladder scans as needed and can consider Hollis catheterization if retaining. Continue home Flomax. ? History of CAD with CABG, hypertension, hyperlipidemia: Had CABG back in 2016. Hypotensive on admit as above. Continue home statin. Restarted home aspirin on 09/06. Holding home beta-yajaira and Lasix for now. ? Type 2 diabetes mellitus with diabetic neuropathy: Continue Humalog 75-25 mix at 15 units twice daily along with sliding scale insulin with meals, adjust as needed. Continue home gabapentin. ? Anxiety/depression: Continue home paroxetine and Ativan as needed. ? GERD: Treating with p.o. PPI daily as above. DVT prophylaxis: Lovenox CODE STATUS: Full code, verified Expected disposition: TBD Microbiology Past 72 Hours 09/04/24 11:00 Blood Culture (Wb) - Anticubital Left Blood Culture - Preliminary Streptococcus group G Staphylococcus aureus 09/04/24 11:00 Blood Culture (Wb) - Anticubital Left Blood Culture - Final Staphylococcus aureus 09/06/24 10:30 Stool Stool Occult Blood (DORYS) - Final Occult Blood Positive 09/04/24 12:40 Urine, Clean Catch Urine Culture - Final Culture exhibits no growth. 09/05/24 06:33 Sputum, Expectorated/Coughed Gram Stain - Final 09/05/24 06:33 Sputum, Expectorated/Coughed Respiratory Culture - Final 09/04/24 19:26 Stool Enteric Bacteriology - Final 09/04/24 19:26 Stool Clostridioides difficile (PCR) - Final Laboratory Results 09/06/24 16:28: POC Glucose 275 H 09/06/24 21:41: POC Glucose 231 H 09/07/24 05:36: WBC 9.7, RBC 3.12 L, Hgb 8.6 L, Hct 27.3 L, MCV 87.5, MCH 27.6, MCHC 31.5 L, RDW Std Deviation 55.2 H, RDW Coeff of Jaquan 17.2 H, Plt Count 179, MPV 9.5, PT 17.3 H, INR 1.4, APTT 32.0, Sodium 140, Potassium 3.0 L, Chloride 99, Carbon Dioxide 27.8, Anion Gap 13, BUN 9, Creatinine 0.74, Estim Creat Clear Calc 88.38, Est GFR (MDRD) Non-Af 99, BUN/Creatinine Ratio 12.7, Glucose 213 H, Calcium 7.4 L, Phosphorus 1.6 L, Magnesium 2.2 09/07/24 11:47: POC Glucose 234 H Clinical Impression(s) from Imaging Studies Chest X-Ray 09/04/24 11:02 IMPRESSION: Stable examination with evidence of hyperinflation and pulmonary hypertension. Stable nodular density and/or infiltrate in the left upper lobe. Reading Location: [id number] Pelvis X-Ray 09/04/24 11:06 IMPRESSION: No acute abnormality is seen. Dense atherosclerotic calcification of the abdominal aorta and iliac arteries. Reading Location: [id number] Toe X-Ray 09/04/24 11:06 IMPRESSION: No acute fracture is seen. Reading Location: [facility] Chest/Abdomen/Pelvis CT 09/04/24 14:32 IMPRESSION: Heterogeneous consolidation in the left upper lobe with a central necrosis and left hilar lymphadenopathy. A neoplastic process should be ruled out. Tiny nodules in the right lung as described. Left adrenal mass suggestive of possible metastasis. Reading Location: [id number] Charges/Coding Visit Charges Inpatient E&M: 83555 Subs Hosp L2
[2024-09-07 12:08] LABS: Bedside Glucose 234 mg/dL (74-106)
[2024-09-07] MEDS: Cefazolin 2 GM in 0.9% Normal Saline (100mL Bag) 100 ML IV ×2 (13:09→21:52)
[2024-09-07] MEDS: Ipratropium/Albuterol Sulfate 3 ML AMPUL.NEB INHALATION ×3 (15:20→18:54)
--- NOTE | 2024-09-07 16:13 | PCM.PN.BLA ---
Progress Note Patient completed bowel prep yesterday without any problems. He has been n.p.o. Physical Exam Const alert, oriented x3, no apparent distress and healthy appearing General Appearance: cooperative GI normal to inspection, nondistended, normoactive bowel sounds, soft to palpation, non-tender and non-distended Percussion: normal to percussion Rectal Exam: deferred Assessment & Plan Assessment/Plan (1) Anemia: PLAN: Patient will undergo a colonoscopy as his EGD yesterday did not show any abnormalities. He was explained alternatives, risk, benefits include not withstanding bleeding, infection, sepsis, perforation, need for urgent . He will have an ASA of 3. Visit Charges Inpatient E&M: 94314 Subs Hosp L2
--- NOTE | 2024-09-07 16:21 | PRE.ANES_ITS ---
ASA Classification* ASA Classification ASA Classification: 3 Assessment & Plan Anesthesia* Anesthesia Assessment Anesthesia Assessment: Discussed sedation and/or anesthesia options, risks, benefits, and alternatives with patient/parents/legal guardian/POA. Questions invited. The patient/parents/legal guardian/POA seems to understand and agrees to proceed with anesthesia plan. Reviewed the physical assessment, medical history, allergy history and patient home medications list prior to surgery/procedure/anesthetic and documented any changes. Performed airway and anesthesia risk assessments. Anesthesia Type Anesthesia Type: MAC History Source History Obtained from:: Patient and Chart Anesthesia Focused Assessment* Temperature: 97.9 F Pulse Rate: 98 Blood Pressure: 146/68 Respiratory Rate: 16 Pulse Ox: 100 Oxygen Delivery Method: Nasal Cannula Oxygen Flow Rate (L/min): 3 Airway Assessment Mouth opens: >3 cm Mallampati Score: III Teeth Condition: Missing (Patient is edentulous.) Neck Range of motion (ROM): Limited ROM (Severe decrease in extension.) Labs Anesthesia Preop lab: CBC WBC 9.7 K/mm3 (4.4-11.0) 09/07/24 05:36 09/07/24 RBC 3.12 M/mm3 (4.6-6.2) L 09/07/24 05:36 09/07/24 Hgb 8.6 g/dL (13.0-16.5) L 09/07/24 05:36 09/07/24 Hct 27.3 % (40-54) L 09/07/24 05:36 09/07/24 Plt Count 179 K/mm3 (150-450) 09/07/24 05:36 09/07/24 CHEMISTRY Potassium 3.0 mmol/L (3.3-5.1) L 09/07/24 05:36 09/07/24 Sodium 140 mmol/L (133-145) 09/07/24 05:36 09/07/24 Magnesium 2.2 mg/dL (1.5-2.2) 09/07/24 05:36 09/07/24 Phosphorus 1.6 mg/dL (2.7-4.5) L 09/07/24 05:36 09/07/24 BUN 9 mg/dL (4-19) 09/07/24 05:36 09/07/24 Creatinine 0.74 mg/dL (0.70-1.20) 09/07/24 05:36 09/07/24 Glucose 213 mg/dL (70-99) H 09/07/24 05:36 09/07/24 POC Glucose 234 mg/dL (74-106) H 09/07/24 11:47 09/07/24 TSH 0.767 uIU/mL (0.300-4.200) 06/06/24 09:07 05/14 08/06 COAG PT 17.3 SECONDS (11.7-14.9) H 09/07/24 05:36 08/14 09/06 Pre-Assessment Diagnosis/Proposed Procedure Planned Operative Procedure(s): Colonoscopy Anesthesia History 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 When Was Last Pacemaker Check QUESTION #4 FULL TEXT: You/Your Family Experience fever (hyperthermia) with Anesthesia Last Oral Intake Last Oral intake: Last Oral Intake NPO since 01:24 09/06/24 01:22 Meds taken in AM with sips of No 09/06/24 01:22 water? Meds patient instructed to take am of surgery Any additional information?: Yes Meds taken in AM with sips of water?: Yes PONV PONV - cdl service technician: PONV - cdl service technician Female HX of Motion Sickness HX of N/V After Surgery Non-Smoker Duration of Surgery greater than 60 minutes Number of Risk Factors PONV Score Height & Weight Height & Weight: Anesthesia: Height & Weight Height 5 ft 9 in 09/07/24 14:16 Weight: 83.8 kg 09/07/24 14:16 Body Mass Index (BMI) 27.3 09/07/24 06:00 Respiratory Assessment Respiratory Assessment - cdl service technician: Respiratory Tract Infection Hx - cdl service technician Hx Respiratory Tract Infection No 09/07/24 08:17 STOP Sleep Apnea STOP Sleep Apnea - cdl service technician: STOP Sleep Apnea - cdl service technician Hx Hypertension Yes: CONTROLLED WITH MED 09/05/24 12:54 Hx Sleep Apnea Yes 09/06/24 13:11 CPAP Yes 09/06/24 12:41 BIPAP No 09/04/24 16:22 Do you snore loudly (louder than talking or can be heard Do you often feel tired/ fatigued/ sleepy during daytime? Has anyone observed you stop breathing during sleep? STOP Results Positive 09/06/24 12:41 QUESTION #5 FULL TEXT : Do you snore loudly (louder than talking or can be heard through closed doors)? 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 Specify any problems Hx of Preganancy in last 3 N/A 09/04/24 16:22 Months Nurse Filling Out Transfusion DSLOAN 09/04/24 16:22 & Questions: Date: 09/04/24 09/04/24 16:22 Time: 16:23 09/04/24 16:22 Patient unable to answer at this time (ie. confused, unrespo /Reproduction History /Reproductive History - cdl service technician: /Reproductive Hx- cdl service technician Hx Now No 09/07/24 08:17 Gestational Age (in weeks): EDC: Hx Hx Para Hx Section SAB No 09/07/24 08:17 Active Medications Active Medications: Current Medications Generic Name Dose Route Start Last Admin Trade Name Freq PRN Reason Stop Dose Admin Acetaminophen 650 mg 09/04/24 16:03 09/05/24 18:47 Acetaminophen 325 Mg Tablet PO 650 mg Q6H PRN PRN Administration Pain 1-10 Or Fever >100.7 Albuterol Sulfate 2.5 mg 09/04/24 16:03 09/06/24 14:56 Albuterol 2.5 Mg/3 Ml Vial.Neb. INHALATION 2.5 mg Q2H PRN PRN Administration SOB &/OR WHEEZING Albuterol/Ipratropium 3 ml 09/05/24 10:15 09/07/24 15:20 Ipratropium/Albuterol Sulfate 3 Ml Ampul.Neb INHALATION 3 ml Q4HWA.RT ELIUD Administration Aspirin 81 mg 09/05/24 08:00 09/07/24 07:33 Aspirin E.C. 81 Mg Tablet PO Not Given BREAKFAST ELIUD Atorvastatin Calcium 20 mg 09/04/24 22:00 09/06/24 21:45 Atorvastatin Calcium 20 Mg Tablet PO 20 mg QHS ELIUD Administration Budesonide 0.5 mg 09/04/24 16:30 09/06/24 20:30 Budesonide Respules 0.5 Mg/2 Ml Ampul.Neb. INHALATION 0.5 mg Q12H.RT ELIUD Administration Calamine/Phenol 1 applic 09/04/24 18:00 09/07/24 13:10 Menthol/Lanolin/Calamine/Znox 113 Gm Tube TOPICAL 1 applic 4X/DAY ELIUD Administration Protocol Gabapentin 300 mg 09/04/24 22:00 09/06/24 21:47 Gabapentin 300 Mg Capsule PO 300 mg QHS ELIUD Administration Glucagon 1 mg 09/04/24 16:03 Glucagon 1 Mg/Ml Syringe IM X1 PRN HYPOGLYCEMIA Protocol Dextrose 250 mls @ 0 mls/hr 09/04/24 16:03 Dextrose 10%-Water IV .Q0M PRN HYPOGLYCEMIA Protocol As Directed Sodium Chloride 250 mls @ 15 mls/hr 09/04/24 16:07 IV .[id number] PRN Saline Flush Sodium Chloride 250 mls @ 15 mls/hr 09/04/24 16:07 IV .[id number] PRN Additional IVPB Infusion Lactated Ringer's 1,000 mls @ 15 mls/hr 09/06/24 11:15 09/06/24 13:45 IV 0 mls/hr .Q48H [facility] Infusion Cefazolin Sodium 2 gm/ Sodium 110 mls @ 200 mls/hr 09/07/24 14:00 09/07/24 14:11 Chloride IV Infused Q8 [facility] Infusion Lactated Ringer's 1,000 mls @ 15 mls/hr 09/07/24 16:15 IV .Q48H ELIUD Insulin Human Lispro 0 unit 09/04/24 16:03 09/07/24 15:37 Insulin Lispro 100 Unit/Ml Insuln.Pen SC Not Given ACHS [facility] Protocol Insulin Lispro Protam/Lispro Human 15 unit 09/06/24 08:00 09/07/24 15:37 Insulin Human [place] SC Not Given BIDCM [facility] Lorazepam 0.5 mg 09/04/24 16:03 09/04/24 20:06 Lorazepam 0.5 Mg Tablet PO 0.5 mg TID PRN Administration ANXIETY Melatonin 10 mg 09/04/24 16:03 09/04/24 20:07 Melatonin 3 Mg Tablet PO 10 mg QHS PRN PRN Administration INSOMNIA Methylprednisolone 60 mg 09/05/24 14:00 09/07/24 13:37 Methylprednisolone 125 Mg/2 Ml Vial IV 60 mg Q8 [facility] Administration Metronidazole 500 mg 09/07/24 14:00 09/07/24 15:30 Metronidazole 500 Mg Tablet PO Not Given TID [facility] Ondansetron HCl 4 mg 09/04/24 16:03 09/04/24 22:31 Ondansetron 4 Mg/2 Ml Vial IV 4 mg Q8H PRN PRN Administration NAUSEA/VOMITING Oxycodone HCl 5 mg 09/04/24 16:03 09/06/24 01:40 Oxycodone 5 Mg Tablet PO 5 mg Q6H PRN PRN Administration pain 1-10 Pantoprazole Sodium 40 mg 09/07/24 10:00 09/07/24 11:52 Pantoprazole Sodium 40 Mg Tablet PO Not Given DAILY [facility] Paroxetine HCl 10 mg 09/05/24 10:00 09/07/24 11:52 Paroxetine 10 Mg Tablet PO Not Given DAILY [facility] Potassium Phos/Sodium Phos 1 packet 09/06/24 11:00 09/07/24 15:37 Na Biphos/Potassium Phosphate Packet PO Not Given TIDAC [facility] Senna/Docusate Sodium 2 tablet 09/04/24 16:03 Senna/Docusate Sodium 1 Tablet PO BID PRN PRN Constipation Sodium Chloride 10 - 40 ml 09/04/24 16:07 09/06/24 07:12 0.9% Saline Lock 10 Ml Syringe IV 10 ml UD PRN Administration SALINE FLUSH Tamsulosin HCl 0.4 mg 09/05/24 10:00 09/07/24 11:52 Tamsulosin Hcl 0.4 Mg Capsule PO Not Given DAILY [facility] Medical History Alcohol use Excessive bleeding History of echocardiogram History of stress test Cardiology follow-up encounter Chest pain Vitamin D deficiency Left adrenal mass CAD (coronary artery disease) Blind Cancer Depression Anxiety Diabetes Prostate disease DVT (deep venous thrombosis) High cholesterol Easy bruising Umbilical hernia Neuropathy Injury of head and neck Syncope Former smoker On home oxygen therapy CPAP (continuous positive airway pressure) dependence COPD (chronic obstructive pulmonary disease) Shortness of breath on exertion History of edema Hypertension Home Medications ?Medication ?Instructions ?Recorded ?Last Taken ?Type albuterol sulfate 2.5 mg/3 mL 2.5 mg inhalation DAILY 01/08/23 09/03/24 History (0.083 %) solution for nebulization albuterol sulfate 90 mcg/actuation 2 puff inhalation P RN PRN 01/08/23 05/30/24 History aerosol inhaler shortness of breath or wheez ing aspirin 81 mg tablet,delayed 81 mg PO DAILY 01/08/23 0 09/04/24 History release atorvastatin 20 mg tablet 20 mg PO QHS 01/08/23 History dapagliflozin propanediol 5 mg 5 mg PO DAILY 01/08/23 09/03/24 History tablet (Farxiga) fluticasone fur. 100 mcg-umeclid 1 inh inhalation SOLEDAD Y 01/08/23 09/03/24 History 62.5 mcg-vilant 25 mcg inhalat.powder (Trelegy Ellipta) furosemide 40 mg tablet 40 mg PO DAILY 01/08/23/06/06 History paroxetine HCl 10 mg tablet 10 mg PO DAILY 01/08/23 History pregabalin 150 mg capsule 150 mg PO DAILY 01/08/23 History roflumilast 250 mcg tablet 250 mcg PO DAILY 01/08/23 0 09/04/24 History tamsulosin 0.4 mg capsule 0.4 mg PO Q24H 01/08/2308/14 History metformin 500 mg tablet,extended 1,500 mg PO QHS 03/2209/04/24 History release 24hr (osmotic) gabapentin 300 mg capsule 300 mg PO QHS 05/10/2409/03 History lorazepam 1 mg tablet 1 mg PO TID #90 tabs 5 Unknown Rx esomeprazole magnesium 40 mg 40 mg PO DAILY 09/04/24 0 09/03/24 History capsule,delayed release insulin lispro protamine-lispro 15 unit subcut BIDCM 0 09/04/24 09/04/24 History 100 unit/mL (75-25) subcutaneous pen (Humalog Mix 75-25 KwikPen) metoprolol succinate 25 mg 25 mg PO DAILY 09/04/24 History tablet,extended release 24 hr oxycodone 5 mg tablet 5 - 10 mg PO Q6H PRN PRN arabella n 09/04/24 Unknown History prednisone 5 mg tablet 15 mg PO DAILY 09/04/24 Unkn own History semaglutide 7 mg tablet (Rybelsus) 7 mg PO DAILY 09/0409/04/24 History vitamin B complex (Complex B-100 1 tab PO DAILY 09/04/24 History tablet,extended release) Allergy/AdvReac Type Severity Reaction Status Date / Time No Known Allergies Allergy Verified 07/24/24 10:03 Family History Mother Cancer LUNG Heart disease Father Cancer lung Sister Cancer lung Heart disease Sister Cancer lung Sister Cancer lung Sister Colon cancer Surgical History Hx of fracture of leg Hx of fracture of foot History of bronchoscopy Hx of biopsy History of lobectomy of lung Hx of oral surgery History of open heart surgery (05/08/15) Social History household members: none housing: other 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
--- NOTE | 2024-09-07 16:30 | COLBX_PTH ---
PATIENT: REY MEAD LOC: [facility] U#:[id number] AGE/SX: 69/M ROOM: [facility] RE09/04/[address]: Dr. Jose Zhang MD : 1955 BED: 1 DIS: 09/11/2024 SPEC #: [id number] RECD: 09/07/24 18:25 STATUS: SANDEEP REQ #: [id number] MELVA: 09/07/24 16:[address]: Wild Gallagher DEPT: SURGICAL PATHOLOGY RECD BY: Mauri Sheridan ENTERED: 09/08/24 09:20 SP TYPE: COLON BX OTHR DR: MD Dr. Stanton Dobson DO Dr. Prakash Chand, MD Dr. Paige Pierce, MD Dr. Robert Leininger, MD Tissues: A - Rectum, NOS Procedures: Surgery Specimen Level IV Comments: @ Ordering doctor for SUIV edited from to @ by AWAIS at 09/08/24 0938 @ Submitting doctor edited from to @ by AWAIS at 09/08/2438 HEADER OPERATION: Colonoscopy PRE-OP DIAGNOSIS: Anemia TISSUE SUBMITTED: A- Rectal polyp MICROSCOPIC DIAGNOSIS A. Rectum, polyp, biopsy: - Tubular adenoma. MICROSCOPIC DESCRIPTION Slides are reviewed. GROSS DESCRIPTION A. Received in formalin labeled with the patient's name and date of . Designated as rectal polyp are multiple stein tissue fragments, 1.6 x 0.7 x 0.3 cm in aggregate. Entirely submitted in 1 cassette. [place] 09/08/2024 CPT:[id number]
--- NOTE | 2024-09-07 17:18 | OP.COLON_ITS ---
Patient Name: John Farrell Procedure Date: 09/07/2024 4:41 PM Date of : 1955 Age: 69 Procedure: Colonoscopy Indications: Iron deficiency anemia Providers: Wild Gallagher DO Medicines: Monitored Anesthesia Care Patient Profile: This is a 69 year old male. Refer to note in patient chart for documentation of history and physical. Last Colonoscopy: several years ago. Complications: No immediate complications. Procedure: Pre-Anesthesia Assessment: - Prior to the procedure, a History and Physical was performed, and patient medications and allergies were reviewed. The patient is competent. The risks and benefits of the procedure and the sedation options and risks were discussed with the patient. All questions were answered and informed consent was obtained. Patient identification and proposed procedure were verified by the physician in the pre-procedure area. Mental Status Examination: alert and oriented. Airway Examination: normal oropharyngeal airway and neck mobility. Respiratory Examination: clear to auscultation. CV Examination: normal. Prophylactic Antibiotics: The patient does not require prophylactic antibiotics. Prior Anticoagulants: The patient has taken no anticoagulant or antiplatelet agents except for NSAID medication. ASA Grade Assessment: II - A patient with mild systemic disease. After reviewing the risks and benefits, the patient was deemed in satisfactory condition to undergo the procedure. The anesthesia plan was to use monitored anesthesia care (MAC). Immediately prior to administration of medications, the patient was re-assessed for adequacy to receive sedatives. The heart rate, respiratory rate, oxygen saturations, blood pressure, adequacy of pulmonary ventilation, and response to care were monitored throughout the procedure. The physical status of the patient was re-assessed after the procedure. After I obtained informed consent, the scope was passed under direct vision. Throughout the procedure, the patient's blood pressure, pulse, and oxygen saturations were monitored continuously. The colonoscope was introduced through the anus and advanced to the cecum, identified by appendiceal orifice and ileocecal valve. The colonoscopy was performed without difficulty. The patient tolerated the procedure well. The quality of the bowel preparation was fair. The ileocecal valve, appendiceal orifice, and rectum were photographed. Scope In: 5:00:16 PM Scope Withdrawal Time 0 hours 6 minutes 40 seconds Scope Out: 5:12:59 PM Total Procedure Duration Time 0 hours 12 minutes 43 seconds Findings: The perianal and digital rectal examinations were normal. Stool was found in the recto-sigmoid colon, in the sigmoid colon, in the transverse colon, in the ascending colon and in the cecum. A 13 mm polyp was found in the rectum. The polyp was sessile. The polyp was removed with a hot snare. Resection and retrieval were complete. Verification of patient identification for the specimen was done. Multiple small and large-mouthed diverticula were found in the recto-sigmoid colon and sigmoid colon. Impression: - Preparation of the colon was fair. - Stool in the recto-sigmoid colon, in the sigmoid colon, in the transverse colon, in the ascending colon and in the cecum. - One 13 mm polyp in the rectum, removed with a hot snare. Resected and retrieved. - Diverticulosis in the recto-sigmoid colon and in the sigmoid colon. Recommendation: - Await pathology results. - Repeat colonoscopy for surveillance. - Continue present medications. Procedure Code(s): --- Professional --- 67983, Colonoscopy, flexible; with removal of tumor(s), polyp(s), or other lesion(s) by snare technique CPT copyright 2021 [employer]. All rights reserved. The codes documented in this report are preliminary and upon community health representative review may be revised to meet current compliance requirements. Wild Gallagher DO 09/07/2024 5:18:05 PM This report has been signed electronically. Number of Addenda: 0 Note Initiated On: 09/07/2024 4:41 PM
--- NOTE | 2024-09-07 17:23 | PCM.POST.ANE ---
Anesthesia: Postop Eval I Current Vital Signs Temperature: 98.5 F Pulse Rate: 77 Blood Pressure: 109/59 Respiratory Rate: 16 Pulse Ox: 97 Oxygen Delivery Method: Nasal Cannula Oxygen Flow Rate (L/min): 3 Assessment Airway patent: Yes Spontaneous unlabored respirations: Yes Mental status: Awake and Calm nausea: No Vomiting: No Anesthesia Complication: No Fluid Hydration Crystalloid volume administer (ml): 300 Total IV fluid infused: 300 Progress Note Anesthesia document: Postop Eval 1 completed: Yes
--- NOTE | 2024-09-07 18:01 | PCM.POSTANE2 ---
Anesthesia Postop Eval I Sum Postop Eval Completion status Anesthesia document: Postop Eval 1 completed: Yes Anesthesia Postop Eval I Summary Anesthesia Postop Eval I Summary: Anesthesia Postop Eval I: Assessment Summary Airway patent Yes 09/07/24 17:25 Spontaneous unlabored Yes 09/07/24 17:25 respirations Mental status Awake,Calm 09/07/24 17:25 nausea No 09/07/24 17:25 Vomiting No 09/07/24 17:25 Anesthesia Postop Eval I: Fluid Summary Crystalloid volume administer 300 09/07/24 17:25 (ml) Colloids volume administered ( ml) Blood Product volume administered (ml) Total IV fluid infused 300 09/07/24 17:25 Anesthesia Postop Eval I: Summary Notes Anesthesia Complication No 09/07/24 17:25 Anesthesia Complication Comment: Post-operative progress note Anesthesia: Postop Eval II Evaluation Mental status: Awake Pain Level: 0 nausea: No Vomiting: No
[2024-09-07] MEDS: Acetaminophen 325 MG Tablet 650 MG PO (18:07)
[2024-09-07] MEDS: Budesonide Respules 0.5 MG/2 ML AMPUL.NEB. INHALATION (18:57)
[2024-09-07] MEDS: Gabapentin 300 MG Capsule PO (21:52)
[2024-09-07] MEDS: metroNIDAZOLE 500 MG Tablet PO (21:53)
[2024-09-07] MEDS: Atorvastatin Calcium 20 MG Tablet PO (21:53)
[2024-09-07] MEDS: Insulin Lispro 100 UNIT/ML INSULN.PEN SC (21:54)
[2024-09-07 22:27] LABS: Bedside Glucose 278 mg/dL (74-106)
[2024-09-08] VITALS (7 sets, daily range): BP systolic 119–126; BP diastolic 57–81; PULSE 78–98; RESP 16–18; TEMP 36.4–36.8; O2SAT 91–98; BMI 27.2
[2024-09-08] MEDS: Budesonide Respules 0.5 MG/2 ML AMPUL.NEB. INHALATION ×2 (06:39→19:41)
[2024-09-08] MEDS: Ipratropium/Albuterol Sulfate 3 ML AMPUL.NEB INHALATION ×3 (06:39→19:41)
[2024-09-08] MEDS: Cefazolin 2 GM in 0.9% Normal Saline (100mL Bag) 100 ML IV ×3 (06:48→22:25)
[2024-09-08] MEDS: metroNIDAZOLE 500 MG Tablet PO ×3 (06:50→22:30)
[2024-09-08] MEDS: MethylPREDNISolone 125 MG/2 ML Vial 60 MG IV ×3 (06:50→22:29)
[2024-09-08] MEDS: Na Biphos/Potassium Phosphate PACKET 1 PACKET PO ×3 (06:57→16:02)
[2024-09-08 07:17] LABS: Bedside Glucose 146 mg/dL (74-106)
[2024-09-08] MEDS: Menthol/Lanolin/Calamine/Znox 113 GM Tube 1 APPLIC TOPICAL ×3 (10:46→22:24)
[2024-09-08] MEDS: Tamsulosin HCl 0.4 MG Capsule PO (10:46)
[2024-09-08] MEDS: Aspirin E.C. 81 MG Tablet PO (10:46)
[2024-09-08] MEDS: ROFLUMILAST 500 MCG TABLET 250 MCG PO (10:47)
[2024-09-08] MEDS: Pantoprazole Sodium 40 MG Tablet PO (10:48)
[2024-09-08] MEDS: PARoxetine 10 MG Tablet PO (10:48)
--- NOTE | 2024-09-08 11:30 | PCM.PN.ID ---
Physical Exam Narrative Feeling better, no fever, no n/v/d Const alert and no apparent distress General Appearance: cooperative Resp normal air movement and clear to auscultation bilaterally Cardio regular rate and regular rhythm GI soft to palpation, non-tender and non-distended Skin no rashes or lesions noted ID ID: Route of nutrition/ use of supplements: [] Nutritional Intake: [] IV Site: [] Hollis Catheter: [] Assessment & Plan Assessment/Plan (1) Septic shock: (2) MSSA bacteremia: PLAN: Suspect due to lung cancer vs trauma to L 5th toe complicated by dry gangrene. Single bcx also with strep. TTE pending. Will repeat bcx. Cont cefazolin/flagyl. Overall much improved, off pressor, out of icu, fever resolved. Will follow
[2024-09-08 12:00] LABS: Bedside Glucose 215 mg/dL (74-106)
[2024-09-08] MEDS: Acetaminophen 325 MG Tablet 650 MG PO (12:12)
[2024-09-08] MEDS: oxyCODONE 5 MG Tablet PO (12:12)
[2024-09-08] MEDS: Insulin Human 75/25 Kwickpen 15 UNIT SC ×2 (12:13→16:03)
[2024-09-08] MEDS: Insulin Lispro 100 UNIT/ML INSULN.PEN SC ×2 (12:14→16:03)
[2024-09-08 17:06] LABS: Bedside Glucose 209 mg/dL (74-106)
--- NOTE | 2024-09-08 17:32 | PCM.PN.HOSP ---
Reason for Visit Reason for Visit: Diagnoses Sepsis, unspecified organism (09/04/24) Methicillin susceptible Staphylococcus aureus infection as the cause of diseases classified elsewhere (09/04/24) Anemia, unspecified (09/04/24) Hypo-osmolality and hyponatremia (09/04/24) Hypokalemia (09/04/24) Pneumonia, unspecified organism (09/04/24) Chronic obstructive pulmonary disease, unspecified (09/04/24) Weakness (09/04/24) Severe sepsis with septic shock (09/04/24) Bacteremia (09/04/24) Objective Data Objective Data Vital Signs: Vital Signs Temp Pulse Resp BP Pulse Ox O2 Del Method O2 Flow Rate 97.6 F L 80 16 119/57 L 95 Nasal Cannula 3 09/08/24 15:56 09/08/24 15:56 09/08/24 15:56 09/08/24 15:56 09/08/24 15:56 09/08/24 15:56 09/08/24 15:56 Oxygen Flow Rate (L/min) 3 Oxygen Delivery Method Nasal Cannula Weight: 184 lb 4.903 oz Body Mass Index (BMI) 27.2 Intake & Output: Intake and Output for Last 24 Hours 09/06/24 09/07/24 09/08/24 23:59 23:59 23:59 Intake Total 2841.42 / 2841.42 410 / 410 810 / 810 Output Total 580 / 580 829 / 1504 1875 / 1875 Balance 2261.42 / 2261.42 -419 / -1094 -1065 / -1065 Lab / Micro Data 09/07/24 05:36 09/07/24 05:36 Labs: Laboratory Results - last 24 hr 09/07/24 21:52: POC Glucose 278 H 09/08/24 06:53: POC Glucose 146 H 09/08/24 11:37: POC Glucose 215 H 09/08/24 15:59: POC Glucose 209 H Micro: Microbiology 09/04/24 11:00 Blood Culture (Wb) - Anticubital Left Blood Culture - Final Staphylococcus aureus 09/04/24 11:00 Blood Culture (Wb) - Anticubital Left Blood Culture - Final Streptococcus group G Staphylococcus aureus 09/06/24 10:30 Stool Stool Occult Blood (DORYS) - Final Occult Blood Positive 09/04/24 12:40 Urine, Clean Catch Urine Culture - Final Culture exhibits no growth. 09/05/24 06:33 Sputum, Expectorated/Coughed Gram Stain - Final 09/05/24 06:33 Sputum, Expectorated/Coughed Respiratory Culture - Final 09/04/24 19:26 Stool Enteric Bacteriology - Final 09/04/24 19:26 Stool Clostridioides difficile (PCR) - Final 09/04/24 11:06 Mucosa - Nose SARS-CoV-2, Influenza & RSV (PCR) - Final Physical Exam Narrative Seen and examined. No acute change. Patient still gets easily short of breath on going to bathroom. Mild chronic cough. Recent blood culture pending On 3 L of oxygen Physical exam General: Alert, Oriented x3, Cooperative. BMI 27 point EKG prescribed HEENT: Atraumatic, PERRLA, EOMI, Normocephalic. Oral: No Gingival or Mucosal Lesions/ Ulcerations Neck: Supple, No JVD, Negative Carotid Bruits Chest wall/Lungs: Air entry diminished in bilateral lungs. Bilateral coarse crepitation Cardiovascular: Regular rate and rhythm, Normal S1,S2, no murmur gallop Abdomen: Bowel Sounds Present, Soft, Non Tender, Non-Distended : No dysuria. No renal angle tenderness. No suprapubic tenderness. Extremities: Mild 1 edema, Capillary Refill Less than 3 Seconds Skin: No rashes, No breakdown Musculoskeletal: No Tenderness to Palpation of Joints or Extremities Neurological: Cranial nerves II-XII grossly intact, DTR 2+/4. No acute focal neurological deficit. Psych/Mental Status: Normal Affect, Appropriate. Assessment & Plan Assessment/Plan (1) Weakness: (2) Anemia: (3) Septic shock: (4) Pneumonia: PLAN: Plan Patient is a 69-year-old male who presented to [facility] ED on 09/04/2024 with generalized weakness with a fall. 1. Septic shock and acute hypoxia suspected secondary to pneumonia and COPD exacerbation, gram-positive bacteremia ? [employer] following. ID consulted. On home oxygen, requiring 4 L on admit to maintain appropriate saturations. Clinical concern for left upper lobe pneumonia as precipitating etiology. Patient ultimately developed fluid refractory hypotension requiring the initiation of vasopressor support to maintain hemodynamic stability. Blood cultures prelim positive for both Staph aureus and group G strep on 09/06. TTE ordered. Continue IV vancomycin and Zosyn for now. Initiated on IV steroids and scheduled DuoNebs on 09/05. Wean supplemental oxygen as able. Appreciate further ID recommendations. 09/07: ID follow-up reviewed. Septic shock suspected due to lung cancer versus trauma to left fifth toe complicated by dry gangrene. Repeat blood culture ordered. Narrow antibiotic to cefazolin and Flagyl. Septic shock resolved with no fever, off pressor. Urine culture shows no growth. 09/08: Patient has mild cough. Mucinex DM prescribed. ID follow-up reviewed. Pending. Blood culture repeated. Continue cefazolin/Flagyl. 2. Metastatic lung cancer with recent radiation therapy ? Follows with outpatient oncology and radiation oncology. See quick note for further details on cancer history. In short, patient was recently initiated on radiation therapy for metastases to T6 and T7. It appears he completed 3 of 5 rounds of radiation that were planned for this. Has history of resection of cancer in [place] in 2016 and radiation therapy of cancer in [place] in 2023. Case management following as below. Patient is certainly an appropriate palliative care candidate at this time and pending clinical course, may be appropriate for hospice care. 09/07: Follow-up outpatient with radiation oncology and medical oncology 3. Acute on chronic debility ? PT/OT/case management following. Patient lives at home alone and appears to have poor social support. Appreciate therapy and case management recommendations. 4. Acute on chronic anemia ? Hemoglobin 7.2 on admit, dropped to 6.8 on hospital day 2. Hemoglobin in June was 11 and that appeared to be his baseline. In [facility] records, hemoglobin 9.7 on CBC from 08/21. Patient denies change in bowel movements. Iron studies notably with high ferritin consistent with anemia of chronic disease. Transfuse 1 unit of blood with repeat hemoglobin 7.8 on morning of 09/06. EGD on 09/06 was unremarkable.p.o. PPI daily. 09/07: H&H 8.09/08%. Platelet count 03/22/1978 K. Monitor CBC 5. Concern for malnutrition ? Nutrition following. BMI 17 on admit. However per nutrition, did not meet criteria for malnutrition. Supplements of Ensure clear and Ensure plus high-protein will be added to meals. Appreciate further nutrition recommendations. Chronic medical conditions: ? BPH with obstructive symptoms: Patient with significant urinary retention on admission relieved with straight cath. Will continue to monitor with bladder scans as needed and can consider Hollis catheterization if retaining. Continue home Flomax. ? History of CAD with CABG, hypertension, hyperlipidemia: Had CABG back in 2016. Hypotensive on admit as above. Continue home statin. Restarted home aspirin on 09/06. Holding home beta-yajaira and Lasix for now. ? Type 2 diabetes mellitus with diabetic neuropathy: Continue Humalog 75-25 mix at 15 units twice daily along with sliding scale insulin with meals, adjust as needed. Continue home gabapentin. ? Anxiety/depression: Continue home paroxetine and Ativan as needed. ? GERD: Treating with p.o. PPI daily as above. DVT prophylaxis: Lovenox CODE STATUS: Full code, verified Expected disposition: TBD Microbiology Past 72 Hours 09/04/24 11:00 Blood Culture (Wb) - Anticubital Left Blood Culture - Final Staphylococcus aureus 09/04/24 11:00 Blood Culture (Wb) - Anticubital Left Blood Culture - Final Streptococcus group G Staphylococcus aureus 09/06/24 10:30 Stool Stool Occult Blood (DORYS) - Final Occult Blood Positive 09/04/24 12:40 Urine, Clean Catch Urine Culture - Final Culture exhibits no growth. Laboratory Results 09/07/24 21:52: POC Glucose 278 H 09/08/24 06:53: POC Glucose 146 H 09/08/24 11:37: POC Glucose 215 H 09/08/24 15:59: POC Glucose 209 H Clinical Impression(s) from Imaging Studies Chest X-Ray 09/04/24 11:02 IMPRESSION: Stable examination with evidence of hyperinflation and pulmonary hypertension. Stable nodular density and/or infiltrate in the left upper lobe. Reading Location: [id number] Pelvis X-Ray 09/04/24 11:06 IMPRESSION: No acute abnormality is seen. Dense atherosclerotic calcification of the abdominal aorta and iliac arteries. Reading Location: [id number] Toe X-Ray 09/04/24 11:06 IMPRESSION: No acute fracture is seen. Reading Location: [id number] Chest/Abdomen/Pelvis CT 09/04/24 14:32 IMPRESSION: Heterogeneous consolidation in the left upper lobe with a central necrosis and left hilar lymphadenopathy. A neoplastic process should be ruled out. Tiny nodules in the right lung as described. Left adrenal mass suggestive of possible metastasis. Reading Location: [id number] Charges/Coding Visit Charges Inpatient E&M: 67029 Subs Hosp L2
[2024-09-08] MEDS: guaiFENesin/D-Methorphan TAB.SR.12H 2 TABLET PO (18:07)
[2024-09-08] MEDS: 0.9% Saline Lock 10 ML Syringe IV (22:29)
[2024-09-08] MEDS: Atorvastatin Calcium 20 MG Tablet PO (22:30)
[2024-09-08] MEDS: Gabapentin 300 MG Capsule PO (22:30)
[2024-09-08 23:46] LABS: Bedside Glucose 116 mg/dL (74-106)
[2024-09-09] VITALS (8 sets, daily range): BP systolic 110–137; BP diastolic 57–76; PULSE 83–97; RESP 16–20; TEMP 36.3–36.6; O2SAT 94–97; BMI 27.1
[2024-09-09] MEDS: oxyCODONE 5 MG Tablet PO ×3 (02:50→21:38)
[2024-09-09] MEDS: Acetaminophen 325 MG Tablet 650 MG PO ×3 (02:50→16:07)
[2024-09-09] MEDS: Na Biphos/Potassium Phosphate PACKET 1 PACKET PO ×2 (05:56→11:06)
[2024-09-09] MEDS: 0.9% Saline Lock 10 ML Syringe IV ×3 (05:56→21:40)
[2024-09-09] MEDS: MethylPREDNISolone 125 MG/2 ML Vial 60 MG IV (05:56)
[2024-09-09] MEDS: metroNIDAZOLE 500 MG Tablet PO ×3 (05:56→21:38)
[2024-09-09] MEDS: Cefazolin 2 GM in 0.9% Normal Saline (100mL Bag) 100 ML IV ×3 (05:57→21:39)
[2024-09-09] MEDS: Ipratropium/Albuterol Sulfate 3 ML AMPUL.NEB INHALATION ×4 (06:50→19:20)
[2024-09-09] MEDS: Budesonide Respules 0.5 MG/2 ML AMPUL.NEB. INHALATION ×2 (06:50→19:20)
[2024-09-09 07:18] LABS: Bedside Glucose 109 mg/dL (74-106)
[2024-09-09] MEDS: Aspirin E.C. 81 MG Tablet PO (09:59)
[2024-09-09] MEDS: Potassium Chloride Oral Tablet 20 MEQ 40 MEQ PO ×2 (09:59→16:56)
[2024-09-09] MEDS: Tamsulosin HCl 0.4 MG Capsule PO (10:00)
[2024-09-09] MEDS: ROFLUMILAST 500 MCG TABLET 250 MCG PO (10:00)
[2024-09-09] MEDS: PARoxetine 10 MG Tablet PO (10:01)
[2024-09-09] MEDS: Pantoprazole Sodium 40 MG Tablet PO (10:01)
[2024-09-09] MEDS: guaiFENesin/D-Methorphan TAB.SR.12H 2 TABLET PO ×2 (10:01→21:38)
[2024-09-09] MEDS: Menthol/Lanolin/Calamine/Znox 113 GM Tube 1 APPLIC TOPICAL ×4 (10:02→21:51)
[2024-09-09] MEDS: Insulin Human 75/25 Kwickpen 15 UNIT SC ×2 (10:14→16:27)
[2024-09-09 10:38] LABS: Bedside Glucose 235 mg/dL (74-106)
[2024-09-09] MEDS: Insulin Lispro 100 UNIT/ML INSULN.PEN SC ×2 (11:04→16:27)
[2024-09-09 11:34] LABS: Anion Gap 14 (5-15); BUN 13 mg/dL (4-19); BUN/Creat Ratio 13.8 RATIO (10-20); Calcium,Total 8.3 mg/dL (7.6-11.0); Carbon Dioxide 29.5 mmol/L (21.0-32.0); Chloride 95 mmol/L (98-108); Creatinine, Serum 0.93 mg/dL (0.70-1.20); EST Glomerular Filtration Rate 90 (>60); Estimated Creatinine Clearance 76.02 ml/min (50-250); Glucose 303 mg/dL (70-99); Potassium 2.5 mmol/L (3.3-5.1); Sodium Level 139 mmol/L (133-145)
[2024-09-09 13:48] LABS: Magnesium 1.8 mg/dL (1.5-2.2); Phosphorus 2.9 mg/dL (2.7-4.5)
--- NOTE | 2024-09-09 13:58 | PCM.PN.HOSP ---
Reason for Visit Reason for Visit: Diagnoses Sepsis, unspecified organism (09/04/24) Methicillin susceptible Staphylococcus aureus infection as the cause of diseases classified elsewhere (09/04/24) Anemia, unspecified (09/04/24) Hypo-osmolality and hyponatremia (09/04/24) Hypokalemia (09/04/24) Pneumonia, unspecified organism (09/04/24) Chronic obstructive pulmonary disease, unspecified (09/04/24) Weakness (09/04/24) Severe sepsis with septic shock (09/04/24) Bacteremia (09/04/24) Objective Data Objective Data Vital Signs: Vital Signs Temp Pulse Resp BP Pulse Ox O2 Del Method O2 Flow Rate 97.4 F L 95 18 110/57 L 97 Nasal Cannula 3 09/09/24 09:55 09/09/24 11:16 09/09/24 11:16 09/09/24 09:55 09/09/24 09:55 09/09/24 09:55 09/09/24 11:51 Oxygen Flow Rate (L/min) 3 Oxygen Delivery Method Nasal Cannula Weight: 183 lb 10.321 oz Body Mass Index (BMI) 27.1 Intake & Output: Intake and Output for Last 24 Hours 09/07/24 09/08/24 09/09/24 23:59 23:59 23:59 Intake Total 410 / 410 1440 / 1440 110 / 110 Output Total 829 / 1504 2675 / 2675 1450 / 1450 Balance -419 / -1094 -1235 / -1235 -1340 / -1340 Lab / Micro Data 09/07/24 05:36 09/09/24 10:43 Labs: Laboratory Results - last 24 hr 09/08/24 15:59: POC Glucose 209 H 09/08/24 22:29: POC Glucose 116 H 09/09/24 06:57: POC Glucose 109 H 09/09/24 10:16: POC Glucose 235 H 09/09/24 10:43: Sodium 139, Potassium 2.5 L*, Chloride 95 L, Carbon Dioxide 29.5, Anion Gap 14, BUN 13, Creatinine 0.93, Estim Creat Clear Calc 76.02, Est GFR (MDRD) Non-Af 90, BUN/Creatinine Ratio 13.8, Glucose 303 H, Calcium 8.3, Phosphorus 2.9, Magnesium 1.8 Micro: Microbiology 09/04/24 11:00 Blood Culture (Wb) - Anticubital Left Blood Culture - Final Staphylococcus aureus 09/04/24 11:00 Blood Culture (Wb) - Anticubital Left Blood Culture - Final Streptococcus group G Staphylococcus aureus 09/06/24 10:30 Stool Stool Occult Blood (DORYS) - Final Occult Blood Positive 09/04/24 12:40 Urine, Clean Catch Urine Culture - Final Culture exhibits no growth. 09/05/24 06:33 Sputum, Expectorated/Coughed Gram Stain - Final 09/05/24 06:33 Sputum, Expectorated/Coughed Respiratory Culture - Final 09/04/24 19:26 Stool Enteric Bacteriology - Final 09/04/24 19:26 Stool Clostridioides difficile (PCR) - Final 09/04/24 11:06 Mucosa - Nose SARS-CoV-2, Influenza & RSV (PCR) - Final Physical Exam Narrative Seen and examined. No acute change. Patient is stated that his shortness of breath is better Mild chronic cough. Recent blood culture pending On 3 L of oxygen Physical exam General: Alert, Oriented x3, Cooperative. BMI 27.1 kg/m?. HEENT: Atraumatic, PERRLA, EOMI, Normocephalic. Oral: No Gingival or Mucosal Lesions/ Ulcerations Neck: Supple, No JVD, Negative Carotid Bruits Chest wall/Lungs: Air entry diminished in bilateral lungs. Mild right lung base crepitation otherwise clear Cardiovascular: Regular rate and rhythm, Normal S1,S2, no murmur gallop Abdomen: Bowel Sounds Present, Soft, Non Tender, Non-Distended : No dysuria. No renal angle tenderness. No suprapubic tenderness. Extremities: Mild 1 edema, Capillary Refill Less than 3 Seconds Skin: No rashes, No breakdown Musculoskeletal: No Tenderness to Palpation of Joints or Extremities Neurological: Cranial nerves II-XII grossly intact, DTR 2+/4. No acute focal neurological deficit. Psych/Mental Status: Normal Affect, Appropriate. Assessment & Plan Assessment/Plan (1) Weakness: (2) Anemia: (3) Septic shock: (4) Pneumonia: PLAN: Plan Patient is a 69-year-old male who presented to [facility] ED on 09/04/2024 with generalized weakness with a fall. 1. Septic shock and acute hypoxia suspected secondary to pneumonia and COPD exacerbation, gram-positive bacteremia ? [employer] following. ID consulted. On home oxygen, requiring 4 L on admit to maintain appropriate saturations. Clinical concern for left upper lobe pneumonia as precipitating etiology. Patient ultimately developed fluid refractory hypotension requiring the initiation of vasopressor support to maintain hemodynamic stability. Blood cultures prelim positive for both Staph aureus and group G strep on 09/06. TTE ordered. Continue IV vancomycin and Zosyn for now. Initiated on IV steroids and scheduled DuoNebs on 09/05. Wean supplemental oxygen as able. Appreciate further ID recommendations. 09/07: ID follow-up reviewed. Septic shock suspected due to lung cancer versus trauma to left fifth toe complicated by dry gangrene. Repeat blood culture ordered. Narrow antibiotic to cefazolin and Flagyl. Septic shock resolved with no fever, off pressor. Urine culture shows no growth. 09/08: Patient has mild cough. Mucinex DM prescribed. ID follow-up reviewed. Pending. Blood culture repeated. Continue cefazolin/Flagyl. 09/09: Cough has improved. 2. Metastatic lung cancer with recent radiation therapy ? Follows with outpatient oncology and radiation oncology. See quick note for further details on cancer history. In short, patient was recently initiated on radiation therapy for metastases to T6 and T7. It appears he completed 3 of 5 rounds of radiation that were planned for this. Has history of resection of cancer in [place] in 2016 and radiation therapy of cancer in [place] in 2023. Case management following as below. Patient is certainly an appropriate palliative care candidate at this time and pending clinical course, may be appropriate for hospice care. 09/07: Follow-up outpatient with radiation oncology and medical oncology Electrolyte abnormalities and PVCs: Patient has severe hypokalemia despite on oral potassium. IV KCl 40 mEq ordered. Magnesium low normal 1.8 therefore magnesium chloride oral prescribed. Serum phosphorus normal therefore oral Neutra-Phos discontinued. Patient has intermittent PVCs on the monitoring manager. 3. Acute on chronic debility ? PT/OT/case management following. Patient lives at home alone and appears to have poor social support. Appreciate therapy and case management recommendations. 4. Acute on chronic anemia ? Hemoglobin 7.2 on admit, dropped to 6.8 on hospital day 2. Hemoglobin in June was 11 and that appeared to be his baseline. In [facility] records, hemoglobin 9.7 on CBC from 08/21. Patient denies change in bowel movements. Iron studies notably with high ferritin consistent with anemia of chronic disease. Transfuse 1 unit of blood with repeat hemoglobin 7.8 on morning of 09/06. EGD on 09/06 was unremarkable.p.o. PPI daily. 09/07: H&H 8.09/08%. Platelet count 03/22/1978 K. Monitor CBC 5. Concern for malnutrition ? Nutrition following. BMI 17 on admit. However per nutrition, did not meet criteria for malnutrition. Supplements of Ensure clear and Ensure plus high-protein will be added to meals. Appreciate further nutrition recommendations. Chronic medical conditions: ? BPH with obstructive symptoms: Patient with significant urinary retention on admission relieved with straight cath. Will continue to monitor with bladder scans as needed and can consider Hollis catheterization if retaining. Continue home Flomax. ? History of CAD with CABG, hypertension, hyperlipidemia: Had CABG back in 2015. Hypotensive on admit as above. Continue home statin. Restarted home aspirin on 09/06. Holding home beta-yajaira and Lasix for now. ? Type 2 diabetes mellitus with diabetic neuropathy: Continue Humalog 75-25 mix at 15 units twice daily along with sliding scale insulin with meals, adjust as needed. Continue home gabapentin. ? Anxiety/depression: Continue home paroxetine and Ativan as needed. ? GERD: Treating with p.o. PPI daily as above. DVT prophylaxis: Lovenox CODE STATUS: Full code, verified Expected disposition: TBD Microbiology Past 72 Hours 09/04/24 11:00 Blood Culture (Wb) - Anticubital Left Blood Culture - Final Staphylococcus aureus 09/04/24 11:00 Blood Culture (Wb) - Anticubital Left Blood Culture - Final Streptococcus group G Staphylococcus aureus 09/06/24 10:30 Stool Stool Occult Blood (DORYS) - Final Occult Blood Positive 09/04/24 12:40 Urine, Clean Catch Urine Culture - Final Culture exhibits no growth. Laboratory Results 09/08/24 15:59: POC Glucose 209 H 09/08/24 22:29: POC Glucose 116 H 09/09/24 06:57: POC Glucose 109 H 09/09/24 10:16: POC Glucose 235 H 09/09/24 10:43: Sodium 139, Potassium 2.5 L*, Chloride 95 L, Carbon Dioxide 29.5, Anion Gap 14, BUN 13, Creatinine 0.93, Estim Creat Clear Calc 76.02, Est GFR (MDRD) Non-Af 90, BUN/Creatinine Ratio 13.8, Glucose 303 H, Calcium 8.3, Phosphorus 2.9, Magnesium 1.8 Clinical Impression(s) from Imaging Studies Chest X-Ray 09/04/24 11:02 IMPRESSION: Stable examination with evidence of hyperinflation and pulmonary hypertension. Stable nodular density and/or infiltrate in the left upper lobe. Reading Location: [id number] Pelvis X-Ray 09/04/24 11:06 IMPRESSION: No acute abnormality is seen. Dense atherosclerotic calcification of the abdominal aorta and iliac arteries. Reading Location: [id number] Toe X-Ray 09/04/24 11:06 IMPRESSION: No acute fracture is seen. Reading Location: [id number] Chest/Abdomen/Pelvis CT 09/04/24 14:32 IMPRESSION: Heterogeneous consolidation in the left upper lobe with a central necrosis and left hilar lymphadenopathy. A neoplastic process should be ruled out. Tiny nodules in the right lung as described. Left adrenal mass suggestive of possible metastasis. Reading Location: [id number] Charges/Coding Visit Charges Inpatient E&M: 25604 Subs Hosp L2
[2024-09-09] MEDS: Potassium Chloride 10mEq/100mL 10 MEQ/100 ML IV.SOLN. 100 MEQ IV BOLUS ×2 (14:34→15:42)
[2024-09-09] MEDS: Magnesium Chloride 64 MG Delay Rel.Tablet 128 MG PO ×2 (14:40→21:39)
[2024-09-09 17:02] LABS: Bedside Glucose 207 mg/dL (74-106)
[2024-09-09] MEDS: Atorvastatin Calcium 20 MG Tablet PO (21:38)
[2024-09-09] MEDS: MELATONIN 3 MG TABLET 10 MG PO (21:39)
[2024-09-09] MEDS: Gabapentin 300 MG Capsule PO (21:39)
[2024-09-09 23:06] LABS: Bedside Glucose 134 mg/dL (74-106)
[2024-09-10] VITALS (10 sets, daily range): BP systolic 115–136; BP diastolic 57–76; PULSE 75–101; RESP 15–18; TEMP 36.2–36.8; O2SAT 93–99; BMI 27.1
[2024-09-10 05:46] LABS: Absolute Lymphocyte Count 1.15 X10^3/uL (0.83-4.51); Absolute Neutrophil Count 15.6 X10^3/uL (2.0-7.7); Basophil# 0.02 X10^3/uL; Basophil% 0.1 % (0-1); Hematocrit 30.7 % (40-54); Hemoglobin 9.4 g/dL (13.0-16.5); Lymphocyte # 1.15 X10^3/ul (0.83-4.51); Lymphocyte % 6.6 % (19-41); Mean Corp Hgb Conc 30.6 g/dL (32-36); Mean Corpuscular Hgb 27.6 pg (27.0-32.0); Mean Platelet Vol. 9.3 fl (6.2-12.0); Monocyte# 0.49 X10^3/uL; Monocyte% 2.8 % (0-10); NRBC Flagged by Analyzer 0 % (0-5); Neutrophil # 15.58 X10^3/uL (2.7-7.7); Neutrophil % 89.1 % (47-70); Platelet Count 269 K/mm3 (150-450); RBC Distribution Width CV 17.2 % (11.6-14.6); RBC Distribution Width SD 55.9 fl (35.1-43.9); Red Blood Count 3.41 M/mm3 (4.6-6.2); White Blood Count 17.5 K/mm3 (4.4-11.0)
[2024-09-10] MEDS: Cefazolin 2 GM in 0.9% Normal Saline (100mL Bag) 100 ML IV ×3 (05:48→22:07)
[2024-09-10] MEDS: metroNIDAZOLE 500 MG Tablet PO ×3 (05:49→22:08)
[2024-09-10 06:15] LABS: Anion Gap 12 (5-15); BUN 13 mg/dL (4-19); BUN/Creat Ratio 13.8 RATIO (10-20); Calcium,Total 8.7 mg/dL (7.6-11.0); Carbon Dioxide 31.1 mmol/L (21.0-32.0); Chloride 100 mmol/L (98-108); Creatinine, Serum 0.91 mg/dL (0.70-1.20); EST Glomerular Filtration Rate 92 (>60); Estimated Creatinine Clearance 77.69 ml/min (50-250); Glucose 115 mg/dL (70-99); Potassium 2.9 mmol/L (3.3-5.1); Sodium Level 143 mmol/L (133-145)
[2024-09-10] MEDS: Ipratropium/Albuterol Sulfate 3 ML AMPUL.NEB INHALATION ×3 (06:56→15:10)
[2024-09-10] MEDS: Budesonide Respules 0.5 MG/2 ML AMPUL.NEB. INHALATION (06:56)
[2024-09-10] MEDS: Aspirin E.C. 81 MG Tablet PO (08:17)
[2024-09-10] MEDS: Potassium Chloride Oral Tablet 20 MEQ 40 MEQ PO ×3 (08:17→22:08)
[2024-09-10] MEDS: Insulin Human 75/25 Kwickpen 15 UNIT SC ×2 (08:19→17:04)
[2024-09-10 08:41] LABS: Bedside Glucose 124 mg/dL (74-106)
[2024-09-10] MEDS: Magnesium Chloride 64 MG Delay Rel.Tablet 128 MG PO ×2 (09:30→22:08)
[2024-09-10] MEDS: Tamsulosin HCl 0.4 MG Capsule PO (09:31)
[2024-09-10] MEDS: guaiFENesin/D-Methorphan TAB.SR.12H 2 TABLET PO ×2 (09:31→22:07)
[2024-09-10] MEDS: Senna/Docusate Sodium 1 Tablet 2 TABLET PO (09:32)
[2024-09-10] MEDS: PARoxetine 10 MG Tablet PO (09:33)
[2024-09-10] MEDS: Pantoprazole Sodium 40 MG Tablet PO (09:33)
[2024-09-10] MEDS: ROFLUMILAST 500 MCG TABLET 250 MCG PO (09:34)
[2024-09-10] MEDS: Menthol/Lanolin/Calamine/Znox 113 GM Tube 1 APPLIC TOPICAL ×4 (09:35→22:08)
[2024-09-10 12:18] LABS: Bedside Glucose 142 mg/dL (74-106)
--- NOTE | 2024-09-10 12:59 | PN.HOSP_ITS ---
Reason for Visit Reason for Visit: Diagnoses Sepsis, unspecified organism (09/04/24) Methicillin susceptible Staphylococcus aureus infection as the cause of diseases classified elsewhere (09/04/24) Anemia, unspecified (09/04/24) Hypo-osmolality and hyponatremia (09/04/24) Hypokalemia (09/04/24) Pneumonia, unspecified organism (09/04/24) Chronic obstructive pulmonary disease, unspecified (09/04/24) Weakness (09/04/24) Severe sepsis with septic shock (09/04/24) Bacteremia (09/04/24) Objective Data Objective Data Vital Signs: Vital Signs Temp Pulse Resp BP Pulse Ox O2 Del Method O2 Flow Rate 97.6 F L 80 18 115/70 95 Nasal Cannula 3 09/10/24 08:05 09/10/24 10:36 09/10/24 10:36 09/10/24 08:05 09/10/24 08:05 09/10/24 10:00 09/10/24 10:00 Oxygen Flow Rate (L/min) 3 Oxygen Delivery Method Nasal Cannula Weight: 183 lb 13.848 oz Body Mass Index (BMI) 27.1 Intake & Output: Intake and Output for Last 24 Hours 09/08/24 09/09/24 09/10/24 23:59 23:59 23:59 Intake Total 1440 / 1440 1453.33 / 1573.33 230 / 230 Output Total 2675 / 2675 1900 / 2400 1350 / 1350 Balance -1235 / -1235 -446.67 / -826.67 -1120 / -1120 Lab / Micro Data 09/10/24 05:25 09/10/24 05:25 Labs: Laboratory Results - last 24 hr 09/09/24 10:43: Phosphorus 2.9, Magnesium 1.8 09/09/24 16:12: POC Glucose 207 H 09/09/24 21:32: POC Glucose 134 H 09/10/24 05:25: WBC 17.5 H, RBC 3.41 L, Hgb 9.4 L, Hct 30.7 L, MCV 90.0, MCH 27.6, MCHC 30.6 L, RDW Std Deviation 55.9 H, RDW Coeff of Jaquan 17.2 H, Plt Count 269, MPV 9.3, Immature Gran % (Auto) 1.400 H, Neut % (Auto) 89.1 H, Lymph % (Auto) 6.6 L, [place] % (Auto) 2.8, Eos % (Auto) 0.0, Baso % (Auto) 0.1, Absolute Neuts (auto) 15.6 H, Absolute Lymphs (auto) 1.15, Nucleated RBC % 0, Sodium 143, Potassium 2.9 L, Chloride 100, Carbon Dioxide 31.1, Anion Gap 12, BUN 13, Creatinine 0.91, Estim Creat Clear Calc 77.69, Est GFR (MDRD) Non-Af 92, BUN/Creatinine Ratio 13.8, Glucose 115 H, Calcium 8.7 09/10/24 08:12: POC Glucose 124 H 09/10/24 11:58: POC Glucose 142 H Micro: Microbiology 09/07/24 10:30 Blood Culture (Wb) - Arm Left Blood Culture - Preliminary No growth in 48 hours. 09/04/24 11:00 Blood Culture (Wb) - Anticubital Left Blood Culture - Final Staphylococcus aureus 09/04/24 11:00 Blood Culture (Wb) - Anticubital Left Blood Culture - Final Streptococcus group G Staphylococcus aureus 09/06/24 10:30 Stool Stool Occult Blood (DORYS) - Final Occult Blood Positive 09/04/24 12:40 Urine, Clean Catch Urine Culture - Final Culture exhibits no growth. 09/05/24 06:33 Sputum, Expectorated/Coughed Gram Stain - Final 09/05/24 06:33 Sputum, Expectorated/Coughed Respiratory Culture - Final 09/04/24 19:26 Stool Enteric Bacteriology - Final 09/04/24 19:26 Stool Clostridioides difficile (PCR) - Final 09/04/24 11:06 Mucosa - Nose SARS-CoV-2, Influenza & RSV (PCR) - Final Physical Exam Narrative Seen and examined. No acute change. Patient is stated that his shortness of breath is better Cough improved 2. Recent blood culture on 09/07 shows no growth for 48 hours On 3 L of oxygen Physical exam General: Alert, Oriented x3, Cooperative. BMI 27.1 kg/m?. HEENT: Atraumatic, PERRLA, EOMI, Normocephalic. Oral: No Gingival or Mucosal Lesions/ Ulcerations Neck: Supple, No JVD, Negative Carotid Bruits Chest wall/Lungs: Air entry diminished in bilateral lungs. No crepitation. Cardiovascular: Regular rate and rhythm, Normal S1,S2, no murmur gallop Abdomen: Bowel Sounds Present, Soft, Non Tender, Non-Distended : No dysuria. No renal angle tenderness. No suprapubic tenderness. Extremities: Mild 1 edema, Capillary Refill Less than 3 Seconds Skin: No rashes, No breakdown Musculoskeletal: No Tenderness to Palpation of Joints or Extremities Neurological: Cranial nerves II-XII grossly intact, DTR 2+/4. No acute focal neurological deficit. Psych/Mental Status: Normal Affect, Appropriate. Assessment & Plan Assessment/Plan (1) Weakness: (2) Anemia: (3) Septic shock: (4) Pneumonia: PLAN: Plan Patient is a 69-year-old male who presented to [facility] ED on 09/04/2024 with generalized weakness with a fall. 1. Septic shock and acute hypoxia suspected secondary to pneumonia and COPD exacerbation, gram-positive bacteremia ? 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 ID consulted. On home oxygen, requiring 4 L on admit to maintain appropriate saturations. Clinical concern for left upper lobe pneumonia as precipitating etiology. Patient ultimately developed fluid refractory hypotension requiring the initiation of vasopressor support to maintain hemodynamic stability. Blood cultures prelim positive for both Staph aureus and group G strep on 09/06. TTE ordered. Continue IV vancomycin and Zosyn for now. Initiated on IV steroids and scheduled DuoNebs on 09/05. Wean supplemental oxygen as able. Appreciate further ID recommendations. 09/07: ID follow-up reviewed. Septic shock suspected due to lung cancer versus trauma to left fifth toe complicated by dry gangrene. Repeat blood culture ordered. Narrow antibiotic to cefazolin and Flagyl. Septic shock resolved with no fever, off pressor. Urine culture shows no growth. 09/08: Patient has mild cough. Mucinex DM prescribed. ID follow-up reviewed. Pending. Blood culture repeated. Continue cefazolin/Flagyl. 09/09: Cough has improved. 09/10: Repeat blood culture on 09/07 shows no growth for more than 48 hours. Plan for discharge to SNF tomorrow 2. Metastatic lung cancer with recent radiation therapy ? Follows with outpatient oncology and radiation oncology. See quick note for further details on cancer history. In short, patient was recently initiated on radiation therapy for metastases to T6 and T7. It appears he completed 3 of 5 rounds of radiation that were planned for this. Has history of resection of cancer in [place] in 2016 and radiation therapy of cancer in [place] in 2023. Case management following as below. Patient is certainly an appropriate palliative care candidate at this time and pending clinical course, may be appropriate for hospice care. 09/07: Follow-up outpatient with radiation oncology and medical oncology Electrolyte abnormalities and PVCs: Patient has severe hypokalemia despite on oral potassium. IV KCl 40 mEq ordered. Magnesium low normal 1.8 therefore magnesium chloride oral prescribed. Serum phosphorus normal therefore oral Neutra-Phos discontinued. Patient has intermittent PVCs on the phototypesetting equipment monitor. 09/07: Patient had burning sensation with IV KCl yesterday therefore was changed to oral KCl 40 mEq 3 times daily. Magnesium chloride 120 mg twice daily. Repeat labs still shows hypokalemia 3. Acute on chronic debility ? PT/OT/case management following. Patient lives at home alone and appears to have poor social support. Appreciate therapy and case management recommendations. 4. Acute on chronic anemia ? Hemoglobin 7.2 on admit, dropped to 6.8 on hospital day 2. Hemoglobin in June was 11 and that appeared to be his baseline. In [facility] records, hemoglobin 9.7 on CBC from 08/21. Patient denies change in bowel movements. Iron studies notably with high ferritin consistent with anemia of chronic disease. Transfuse 1 unit of blood with repeat hemoglobin 7.8 on morning of 09/06. EGD on 09/06 was unremarkable.p.o. PPI daily. 09/07: H&H 8.6/27%. Platelet count 03/22/1978 K. Monitor CBC 5. Concern for malnutrition ? Nutrition following. BMI 17 on admit. However per nutrition, did not meet criteria for malnutrition. Supplements of Ensure clear and Ensure plus high- protein will be added to meals. Appreciate further nutrition recommendations. Chronic medical conditions: ? BPH with obstructive symptoms: Patient with significant urinary retention on admission relieved with straight cath. Will continue to monitor with bladder scans as needed and can consider Hollis catheterization if retaining. Continue home Flomax. ? History of CAD with CABG, hypertension, hyperlipidemia: Had CABG back in 2016. Hypotensive on admit as above. Continue home statin. Restarted home aspirin on 09/06. Holding home beta-yajaira and Lasix for now. ? Type 2 diabetes mellitus with diabetic neuropathy: Continue Humalog 75-25 mix at 15 units twice daily along with sliding scale insulin with meals, adjust as needed. Continue home gabapentin. ? Anxiety/depression: Continue home paroxetine and Ativan as needed. ? GERD: Treating with p.o. PPI daily as above. DVT prophylaxis: Lovenox CODE STATUS: Full code, verified Expected disposition: TBD Microbiology Past 72 Hours 09/04/24 11:00 Blood Culture (Wb) - Anticubital Left Blood Culture - Final Staphylococcus aureus 09/04/24 11:00 Blood Culture (Wb) - Anticubital Left Blood Culture - Final Streptococcus group G Staphylococcus aureus 09/06/24 10:30 Stool Stool Occult Blood (DORYS) - Final Occult Blood Positive 09/04/24 12:40 Urine, Clean Catch Urine Culture - Final Culture exhibits no growth. Laboratory Results 09/08/24 15:59: POC Glucose 209 H 09/08/24 22:29: POC Glucose 116 H 09/09/24 06:57: POC Glucose 109 H 09/09/24 10:16: POC Glucose 235 H 09/09/24 10:43: Sodium 139, Potassium 2.5 L*, Chloride 95 L, Carbon Dioxide 29.5, Anion Gap 14, BUN 13, Creatinine 0.93, Estim Creat Clear Calc 76.02, Est GFR (MDRD) Non-Af 90, BUN/Creatinine Ratio 13.8, Glucose 303 H, Calcium 8.3, Phosphorus 2.9, Magnesium 1.8 Clinical Impression(s) from Imaging Studies Chest X-Ray 09/04/24 11:02 IMPRESSION: Stable examination with evidence of hyperinflation and pulmonary hypertension. Stable nodular density and/or infiltrate in the left upper lobe. Reading Location: [facility] Pelvis X-Ray 09/04/24 11:06 IMPRESSION: No acute abnormality is seen. Dense atherosclerotic calcification of the abdominal aorta and iliac arteries. Reading Location: [id number] Toe X-Ray 09/04/24 11:06 IMPRESSION: No acute fracture is seen. Reading Location: [id number] Chest/Abdomen/Pelvis CT 09/04/24 14:32 IMPRESSION: Heterogeneous consolidation in the left upper lobe with a central necrosis and left hilar lymphadenopathy. A neoplastic process should be ruled out. Tiny nodules in the right lung as described. Left adrenal mass suggestive of possible metastasis. Reading Location: [id number] Charges/Coding Visit Charges Inpatient E&M: 10632 Subs Hosp L2
[2024-09-10 16:46] LABS: Bedside Glucose 243 mg/dL (74-106)
[2024-09-10] MEDS: Insulin Lispro 100 UNIT/ML INSULN.PEN SC ×2 (17:03→22:08)
[2024-09-10] MEDS: oxyCODONE 5 MG Tablet PO (22:07)
[2024-09-10] MEDS: MELATONIN 3 MG TABLET 10 MG PO (22:07)
[2024-09-10] MEDS: Atorvastatin Calcium 20 MG Tablet PO (22:09)
[2024-09-10] MEDS: Gabapentin 300 MG Capsule PO (22:19)
[2024-09-10 22:55] LABS: Bedside Glucose 160 mg/dL (74-106)
[2024-09-11] VITALS (7 sets, daily range): BP systolic 135–145; BP diastolic 68–76; PULSE 72–90; RESP 16–18; TEMP 36.1–36.5; O2SAT 71–98; BMI 27.0
[2024-09-11] MEDS: Potassium Chloride Oral Tablet 20 MEQ 40 MEQ PO ×2 (05:19→13:18)
[2024-09-11] MEDS: 0.9% Saline Lock 10 ML Syringe IV ×2 (05:19→13:18)
[2024-09-11] MEDS: metroNIDAZOLE 500 MG Tablet PO ×2 (05:19→13:18)
[2024-09-11] MEDS: Cefazolin 2 GM in 0.9% Normal Saline (100mL Bag) 100 ML IV ×2 (05:19→13:18)
[2024-09-11 06:19] LABS: Anion Gap 10 (5-15); BUN 15 mg/dL (4-19); Calcium,Total 8.8 mg/dL (7.6-11.0); Carbon Dioxide 30.1 mmol/L (21.0-32.0); Chloride 103 mmol/L (98-108); Creatinine, Serum 0.78 mg/dL (0.70-1.20); EST Glomerular Filtration Rate 97 (>60); Estimated Creatinine Clearance 88.38 ml/min (50-250); Glucose 118 mg/dL (70-99); Potassium 3.9 mmol/L (3.3-5.1); Sodium Level 143 mmol/L (133-145)
[2024-09-11] MEDS: Budesonide Respules 0.5 MG/2 ML AMPUL.NEB. INHALATION (07:43)
[2024-09-11] MEDS: Ipratropium/Albuterol Sulfate 3 ML AMPUL.NEB INHALATION (07:43)
--- NOTE | 2024-09-11 08:11 | PN.HOSP_ITS ---
Reason for Visit Reason for Visit: Diagnoses Sepsis, unspecified organism (09/04/24) Methicillin susceptible Staphylococcus aureus infection as the cause of diseases classified elsewhere (09/04/24) Anemia, unspecified (09/04/24) Hypo-osmolality and hyponatremia (09/04/24) Hypokalemia (09/04/24) Pneumonia, unspecified organism (09/04/24) Chronic obstructive pulmonary disease, unspecified (09/04/24) Weakness (09/04/24) Severe sepsis with septic shock (09/04/24) Bacteremia (09/04/24) Objective Data Objective Data Vital Signs: Vital Signs Temp Pulse Resp BP Pulse Ox O2 Del Method O2 Flow Rate 96.9 F L 88 18 135/68 H 97 CPAP 3 09/11/24 03:35 09/11/24 03:35 09/11/24 03:35 09/11/24 03:35 09/11/24 03:35 09/11/24 03:35 09/11/24 03:35 Oxygen Flow Rate (L/min) 3 Oxygen Delivery Method CPAP Weight: 183 lb 3.266 oz Body Mass Index (BMI) 27.0 Intake & Output: Intake and Output for Last 24 Hours 09/09/24 09/10/24 09/11/24 23:59 23:59 23:59 Intake Total 1453.33 / 1573.33 1325 / 1565 350 / 350 Output Total 1900 / 2400 2300 / 2600 300 / 300 Balance -446.67 / -826.67 -975 / -1035 50 / 50 Lab / Micro Data 09/10/24 05:25 09/11/24 05:26 Labs: Laboratory Results - last 24 hr 09/10/24 08:12: POC Glucose 124 H 09/10/24 11:58: POC Glucose 142 H 09/10/24 16:22: POC Glucose 243 H 09/10/24 22:03: POC Glucose 160 H 09/11/24 05:26: Sodium 143, Potassium 3.9, Chloride 103, Carbon Dioxide 30.1, Anion Gap 10, BUN 15, Creatinine 0.78, Estim Creat Clear Calc 88.38, Est GFR (MDRD) Non-Af 97, BUN/Creatinine Ratio 19.0, Glucose 118 H, Calcium 8.8 Micro: Microbiology 09/08/24 12:09 Blood Culture (Wb) - Anticubital Left Blood Culture - Preliminary No growth in 48 hours. 09/07/24 10:30 Blood Culture (Wb) - Arm Left Blood Culture - Preliminary No growth in 48 hours. 09/04/24 11:00 Blood Culture (Wb) - Anticubital Left Blood Culture - Final Staphylococcus aureus 09/04/24 11:00 Blood Culture (Wb) - Anticubital Left Blood Culture - Final Streptococcus group G Staphylococcus aureus 09/06/24 10:30 Stool Stool Occult Blood (DORYS) - Final Occult Blood Positive 09/04/24 12:40 Urine, Clean Catch Urine Culture - Final Culture exhibits no growth. 09/05/24 06:33 Sputum, Expectorated/Coughed Gram Stain - Final 09/05/24 06:33 Sputum, Expectorated/Coughed Respiratory Culture - Final 09/04/24 19:26 Stool Enteric Bacteriology - Final 09/04/24 19:26 Stool Clostridioides difficile (PCR) - Final 09/04/24 11:06 Mucosa - Nose SARS-CoV-2, Influenza & RSV (PCR) - Final Physical Exam Narrative Seen and examined. No acute change. Patient is stated that his shortness of breath is better Cough improved 2. Recent blood culture on 09/07 shows no growth for 48 hours On 3 L of oxygen Physical exam General: Alert, Oriented x3, Cooperative. BMI 27.1 kg/m?. HEENT: Atraumatic, PERRLA, EOMI, Normocephalic. Oral: No Gingival or Mucosal Lesions/ Ulcerations Neck: Supple, No JVD, Negative Carotid Bruits Chest wall/Lungs: Air entry diminished in bilateral lungs. No crepitation. Cardiovascular: Regular rate and rhythm, Normal S1,S2, no murmur gallop Abdomen: Bowel Sounds Present, Soft, Non Tender, Non-Distended : No dysuria. No renal angle tenderness. No suprapubic tenderness. Extremities: Mild 1 edema, Capillary Refill Less than 3 Seconds Skin: Right pinky toe bruised. Sores/abrasion on the inner right buttock Musculoskeletal: No Tenderness to Palpation of Joints or Extremities Neurological: Cranial nerves II-XII grossly intact, DTR 2+/4. No acute focal neurological deficit. Psych/Mental Status: Normal Affect, Appropriate. Assessment & Plan Assessment/Plan (1) Weakness: (2) Anemia: (3) Septic shock: (4) Pneumonia: PLAN: Plan Patient is a 69-year-old male who presented to [facility] ED on 09/04/2024 with generalized weakness with a fall. 1. Septic shock and acute hypoxia suspected secondary to pneumonia and COPD exacerbation, gram-positive bacteremia ? Nurse First Assist following. ID consulted. On home oxygen, requiring 4 L on admit to maintain appropriate saturations. Clinical concern for left upper lobe pneumonia as precipitating etiology. Patient ultimately developed fluid refractory hypotension requiring the initiation of vasopressor support to maintain hemodynamic stability. Blood cultures prelim positive for both Staph aureus and group G strep on 09/06. TTE ordered. Continue IV vancomycin and Zosyn for now. Initiated on IV steroids and scheduled DuoNebs on 09/05. Wean supplemental oxygen as able. Appreciate further ID recommendations. 09/07: ID follow-up reviewed. Septic shock suspected due to lung cancer versus trauma to left fifth toe complicated by dry gangrene. Repeat blood culture ordered. Narrow antibiotic to cefazolin and Flagyl. Septic shock resolved with no fever, off pressor. Urine culture shows no growth. 09/08: Patient has mild cough. Mucinex DM prescribed. ID follow-up reviewed. Pending. Blood culture repeated. Continue cefazolin/Flagyl. 09/09: Cough has improved. 09/10: Repeat blood culture on 09/07 shows no growth for more than 48 hours. Plan for discharge to SNF tomorrow 2. Metastatic lung cancer with recent radiation therapy ? Follows with outpatient oncology and radiation oncology. See quick note for further details on cancer history. In short, patient was recently initiated on radiation therapy for metastases to T6 and T7. It appears he completed 3 of 5 rounds of radiation that were planned for this. Has history of resection of cancer in [place] in 2016 and radiation therapy of cancer in [place] in 2023. Case management following as below. Patient is certainly an appropriate palliative care candidate at this time and pending clinical course, may be appropriate for hospice care. 09/07: Follow-up outpatient with radiation oncology and medical oncology Electrolyte abnormalities and PVCs: Patient has severe hypokalemia despite on oral potassium. IV KCl 40 mEq ordered. Magnesium low normal 1.8 therefore magnesium chloride oral prescribed. Serum phosphorus normal therefore oral Neutra-Phos discontinued. Patient has intermittent PVCs on the property assessment monitor. 09/07: Patient had burning sensation with IV KCl yesterday therefore was changed to oral KCl 40 mEq 3 times daily. Magnesium chloride 120 mg twice daily. Repeat labs still shows hypokalemia 3. Acute on chronic debility ? PT/OT/case management following. Patient lives at home alone and appears to have poor social support. Appreciate therapy and case management recommendations. Patient had right fifth toe bruised. X-ray showed no fracture, normal alignment and prior fusion of 2nd and 3rd tarsometatarsal joint. Patient also has soreness/abrasion over right buttock. 4. Acute on chronic anemia ? Hemoglobin 7.2 on admit, dropped to 6.8 on hospital day 2. Hemoglobin in June was 11 and that appeared to be his baseline. In [facility] records, hemoglobin 9.7 on CBC from 08/21. Patient denies change in bowel movements. Iron studies notably with high ferritin consistent with anemia of chronic disease. Transfuse 1 unit of blood with repeat hemoglobin 7.8 on morning of 09/06. EGD on 09/06 was unremarkable.p.o. PPI daily. 09/07: H&H 8.6/27%. Platelet count 03/22/1978 K. Monitor CBC 5. Concern for malnutrition ? Nutrition following. BMI 17 on admit. However per nutrition, did not meet criteria for malnutrition. Supplements of Ensure clear and Ensure plus high- protein will be added to meals. Appreciate further nutrition recommendations. Chronic medical conditions: ? BPH with obstructive symptoms: Patient with significant urinary retention on admission relieved with straight cath. Will continue to monitor with bladder scans as needed and can consider [facility] catheterization if retaining. Continue home Flomax. ? History of CAD with CABG, hypertension, hyperlipidemia: Had CABG back in 2016. Hypotensive on admit as above. Continue home statin. Restarted home aspirin on 09/06. Holding home beta-yajaira and Lasix for now. ? Type 2 diabetes mellitus with diabetic neuropathy: Continue Humalog 75-25 mix at 15 units twice daily along with sliding scale insulin with meals, adjust as needed. Continue home gabapentin. ? Anxiety/depression: Continue home paroxetine and Ativan as needed. ? GERD: Treating with p.o. PPI daily as above. DVT prophylaxis: Lovenox CODE STATUS: Full code, verified Expected disposition: TBD Microbiology Past 72 Hours 09/04/24 11:00 Blood Culture (Wb) - Anticubital Left Blood Culture - Final Staphylococcus aureus 09/04/24 11:00 Blood Culture (Wb) - Anticubital Left Blood Culture - Final Streptococcus group G Staphylococcus aureus 09/06/24 10:30 Stool Stool Occult Blood (DORYS) - Final Occult Blood Positive 09/04/24 12:40 Urine, Clean Catch Urine Culture - Final Culture exhibits no growth. Laboratory Results 09/08/24 15:59: POC Glucose 209 H 09/08/24 22:29: POC Glucose 116 H 09/09/24 06:57: POC Glucose 109 H 09/09/24 10:16: POC Glucose 235 H 09/09/24 10:43: Sodium 139, Potassium 2.5 L*, Chloride 95 L, Carbon Dioxide 29.5, Anion Gap 14, BUN 13, Creatinine 0.93, Estim Creat Clear Calc 76.02, Est GFR (MDRD) Non-Af 90, BUN/Creatinine Ratio 13.8, Glucose 303 H, Calcium 8.3, Phosphorus 2.9, Magnesium 1.8 Clinical Impression(s) from Imaging Studies Chest X-Ray 09/04/24 11:02 IMPRESSION: Stable examination with evidence of hyperinflation and pulmonary hypertension. Stable nodular density and/or infiltrate in the left upper lobe. Reading Location: [id number] Pelvis X-Ray 09/04/24 11:06 IMPRESSION: No acute abnormality is seen. Dense atherosclerotic calcification of the abdominal aorta and iliac arteries. Reading Location: [id number] Toe X-Ray 09/04/24 11:06 IMPRESSION: No acute fracture is seen. Reading Location: [facility] Chest/Abdomen/Pelvis CT 09/04/24 14:32 IMPRESSION: Heterogeneous consolidation in the left upper lobe with a central necrosis and left hilar lymphadenopathy. A neoplastic process should be ruled out. Tiny nodules in the right lung as described. Left adrenal mass suggestive of possible metastasis. Reading Location: [id number]
[2024-09-11] MEDS: Aspirin E.C. 81 MG Tablet PO (08:27)
[2024-09-11] MEDS: Insulin Human 75/25 Kwickpen 15 UNIT SC ×2 (08:28→16:35)
[2024-09-11] MEDS: Menthol/Lanolin/Calamine/Znox 113 GM Tube 1 APPLIC TOPICAL ×3 (08:28→16:36)
[2024-09-11] MEDS: ROFLUMILAST 500 MCG TABLET 250 MCG PO (08:29)
[2024-09-11] MEDS: Tamsulosin HCl 0.4 MG Capsule PO (08:30)
[2024-09-11] MEDS: guaiFENesin/D-Methorphan TAB.SR.12H 2 TABLET PO (08:30)
[2024-09-11] MEDS: Magnesium Chloride 64 MG Delay Rel.Tablet 128 MG PO (08:30)
[2024-09-11] MEDS: Pantoprazole Sodium 40 MG Tablet PO (08:31)
[2024-09-11] MEDS: Senna/Docusate Sodium 1 Tablet 2 TABLET PO (08:31)
[2024-09-11] MEDS: PARoxetine 10 MG Tablet PO (08:31)
[2024-09-11] MEDS: oxyCODONE 5 MG Tablet PO (08:40)
[2024-09-11] MEDS: Acetaminophen 325 MG Tablet 650 MG PO (08:40)
--- NOTE | 2024-09-11 09:47 | DCINST_ITS ---
Discharge Instructions DC O2, CPAP, BIPAP needs Home O2 Discharge instructions: Yes Type of respiratory needs?: Oxygen Oxygen frequency: Continuous Continuous oxygen liters per minute: 3 Follow Up Care Test Results: Test results from this visit will be discussed in further detail at your follow- up appointment, if applicable. Discharge Plan Admission Admit Date/Time: 09/04/24 14:44 Primary Reason for Your Visit: Septic shock due to MSSA and strep bacteremia Attending Provider: Jose Zhang Primary Care Provider: Desiree Saleh Consulting Providers: Serina Juan; Stanton Ortega; Miguel Bazzi Instructions Additional Instructions / Restrictions: Advised BMP in 1 week Discharge Orders/Prescriptions Prescriptions: New sennosides-docusate sodium [Stimulant Laxative Plus] 8.6-50 mg Tablet 2 tab PO BID Qty: 0 0RF potassium chloride 20 mEq Tablet,Er Particles/Crystals 40 meq PO BID 7 Days Qty: 28 0RF Continued gabapentin 300 mg capsule 300 mg PO QHS furosemide 40 mg tablet 40 mg PO DAILY paroxetine HCl 10 mg tablet 10 mg PO DAILY pregabalin 150 mg capsule 150 mg PO DAILY roflumilast 250 mcg tablet 250 mcg PO DAILY tamsulosin 0.4 mg capsule 0.4 mg PO Q24H albuterol sulfate 2.5 mg /3 mL (0.083 %) solution for nebulization 2.5 mg inhalation DAILY albuterol sulfate 90 mcg/actuation HFA aerosol inhaler 2 puff INHALATION PRN PRN (Reason: shortness of breath or wheezing) aspirin 81 mg tablet,delayed release (DR/EC) 81 mg PO DAILY atorvastatin 20 mg tablet 20 mg PO QHS dapagliflozin propanediol [Farxiga] 5 mg tablet 5 mg PO DAILY Trelegy Ellipta 100-62.5-25 mcg blister with device 1 inh INHALATION DAILY metformin 500 mg tablet extended release 24hr 1,500 mg PO QHS Patient Comments: TAKE 2 tabs in the AM and One tab in PM Rx Instructions: TAKE 2 tabs in the AM and One tab in PM esomeprazole magnesium 40 mg capsule,delayed release(DR/EC) 40 mg PO DAILY metoprolol succinate 25 mg tablet extended release 24 hr 25 mg PO DAILY oxycodone 5 mg tablet 5 - 10 mg PO Q6H PRN PRN (Reason: pain) insulin lispro protamin-lispro [Humalog Mix 75-25 KwikPen] 100 unit/mL (75-25) insulin pen 15 unit subcut BIDCM Rybelsus 7 mg tablet 7 mg PO DAILY prednisone 5 mg tablet 15 mg PO DAILY Complex B-100 Tablet Extended Release 1 tab PO DAILY Changed lorazepam 1 mg tablet 0.5 mg PO TID PRN (Reason: anxiety) Qty: 90 0RF Referrals / Follow Up: Desiree Saleh MD [Primary Care Provider] - Miguel Bazzi MD [Med Staff - Active Staff] - Within 1 Month Disposition Disposition (needs filled in before D/C Order can be placed): Home Health Service
--- NOTE | 2024-09-11 09:56 | PCM.DC.SUM ---
Providers Date of Admission: 09/04/24 Date of Discharge: 09/11/24 Primary Care Physician: Dr. Desiree Saleh MD Consultations 09/04/24 16:03 Consult: Onc/Wound/funeral director/embalmer/owner Routine Comment: Reason for Consult:: left 5th toe discoloration/injury/wound 09/05/24 00:15 Consult: Event Lighting Specialist / Pulmonary Medicine Routine Consulting Provider: Intensivists/Pulmonary Med Reason for Consult: Vasopressor Support EMERGENT Consult: No MD Notified: Yes Date Notified: 09/05/24 Time Notified: 06:19 Method of Notification: Text 09/05/24 10:14 Consult: Gastroenterology Routine Consulting Provider: [facility] Reason for Consult: acute on chronic anemia, concern for UGIB EMERGENT Consult: No Notified: Yes Date Notified: 09/05/24 Time Notified: 10:27 Method of Notification: Answering Service 09/06/24 16:43 Consult: Infectious Disease Routine Consulting Provider: Miguel Bazzi Reason for Consult: gram positive bacteremia EMERGENT Consult: No Notified: Yes Date Notified: 09/06/24 Time Notified: 07:43 Method of Notification: Text Reason For Visit: CONCERN FOR SEPSIS Diagnosis Discharge Diagnosis (1) Weakness: Status: Acute Code(s): R53.1 - Weakness (2) Anemia: Status: Acute Code(s): D64.9 - Anemia, unspecified (3) Septic shock: Status: Acute Code(s): A41.9 - Sepsis, unspecified organism; R65.21 - Severe sepsis with septic shock (4) Pneumonia: Status: Acute Code(s): J18.9 - Pneumonia, unspecified organism Plan Patient is a 69-year-old male who presented to [facility] ED on 09/04/2024 with generalized weakness with a fall. 1. Septic shock and acute hypoxia suspected secondary to pneumonia and COPD exacerbation, gram-positive bacteremia ? Event Lighting Specialist following. ID consulted. On home oxygen, requiring 4 L on admit to maintain appropriate saturations. Clinical concern for left upper lobe pneumonia as precipitating etiology. Patient ultimately developed fluid refractory hypotension requiring the initiation of vasopressor support to maintain hemodynamic stability. Blood cultures prelim positive for both Staph aureus and group G strep on 09/06. TTE ordered. Continue IV vancomycin and Zosyn for now. Initiated on IV steroids and scheduled DuoNebs on 09/05. Wean supplemental oxygen as able. Appreciate further ID recommendations. 09/07: ID follow-up reviewed. Septic shock suspected due to lung cancer versus trauma to left fifth toe complicated by dry gangrene. Repeat blood culture ordered. Narrow antibiotic to cefazolin and Flagyl. Septic shock resolved with no fever, off pressor. Urine culture shows no growth. 09/08: Patient has mild cough. Mucinex DM prescribed. ID follow-up reviewed. Pending. Blood culture repeated. Continue cefazolin/Flagyl. 09/09: Cough has improved. 09/10: Repeat blood culture on 09/07 shows no growth for more than 48 hours. Plan for discharge to SNF tomorrow 09/11: I reviewed follow-up and/or prescription for Keflex 500 mg 1 tablet 4 times daily for 7 days. ID follow-up and prescription for discharge antibiotics. Follow-up ID 2. Metastatic lung cancer with recent radiation therapy ? Follows with outpatient oncology and radiation oncology. See quick note for further details on cancer history. In short, patient was recently initiated on radiation therapy for metastases to T6 and T7. It appears he completed 3 of 5 rounds of radiation that were planned for this. Has history of resection of cancer in [facility] in 2016 and radiation therapy of cancer in [place] in 2023. Case management following as below. Patient is certainly an appropriate palliative care candidate at this time and pending clinical course, may be appropriate for hospice care. 09/07: Follow-up outpatient with radiation oncology and medical oncology Electrolyte abnormalities and PVCs: Patient has severe hypokalemia despite on oral potassium. IV KCl 40 mEq ordered. Magnesium low normal 1.8 therefore magnesium chloride oral prescribed. Serum phosphorus normal therefore oral Neutra-Phos discontinued. Patient has intermittent PVCs on the cardiac rn. 09/07: Patient had burning sensation with IV KCl yesterday therefore was changed to oral KCl 40 mEq 3 times daily. Magnesium chloride 120 mg twice daily. Repeat labs still shows hypokalemia 09/11: Hypokalemia is corrected. Patient discharged on potassium chloride prescription. Advised follow-up BMP in 1 week as an outpatient 3. Acute on chronic debility ? PT/OT/case management following. Patient lives at home alone and appears to have poor social support. Appreciate therapy and case management recommendations. Patient had right fifth toe bruised. X-ray showed no fracture, normal alignment and prior fusion of 2nd and 3rd tarsometatarsal joint. Patient also has soreness/abrasion over right buttock. 4. Acute on chronic anemia ? Hemoglobin 7.2 on admit, dropped to 6.8 on hospital day 2. Hemoglobin in June was 11 and that appeared to be his baseline. In [facility] records, hemoglobin 9.7 on CBC from 08/21. Patient denies change in bowel movements. Iron studies notably with high ferritin consistent with anemia of chronic disease. Transfuse 1 unit of blood with repeat hemoglobin 7.8 on morning of 09/06. EGD on 09/06 was unremarkable.p.o. PPI daily. 09/07: H&H 8.6/27%. Platelet count 03/22/1978 K. Monitor CBC Patient had EGD on 09/06 and colonoscopy on 09/07/2025 EGD Impressions : - Normal esophagus. - No gross lesions in the entire stomach. - No gross lesions in the entire examined duodenum. - No specimens collected Colonoscopy Impression: - Preparation of the colon was fair. - Stool in the recto-sigmoid colon, in the sigmoid colon, in the transverse colon, in the ascending colon and in the cecum. - One 13 mm polyp in the rectum, removed with a hot snare. Resected and retrieved. - Diverticulosis in the recto-sigmoid colon and in the sigmoid colon. 5. Concern for malnutrition ? Nutrition following. BMI 17 on admit. However per nutrition, did not meet criteria for malnutrition. Supplements of Ensure clear and Ensure plus high-protein will be added to meals. Appreciate further nutrition recommendations. Chronic medical conditions: ? BPH with obstructive symptoms: Patient with significant urinary retention on admission relieved with straight cath. Will continue to monitor with bladder scans as needed and can consider Hollis catheterization if retaining. Continue home Flomax. ? History of CAD with CABG, hypertension, hyperlipidemia: Had CABG back in 2016. Hypotensive on admit as above. Continue home statin. Restarted home aspirin on 09/06. Holding home beta-yajaira and Lasix for now. ? Type 2 diabetes mellitus with diabetic neuropathy: Continue Humalog 75-25 mix at 15 units twice daily along with sliding scale insulin with meals, adjust as needed. Continue home gabapentin. ? Anxiety/depression: Continue home paroxetine and Ativan as needed. ? GERD: Treating with p.o. PPI daily as above. DVT prophylaxis: Lovenox CODE STATUS: Full code, verified Discharge medication reconciliation done. Discharge follow-up instructions completed. Discharge process discussed with the patient and all questions were answered to patient's satisfaction. Follow with PCP in 1 to 2 weeks Total time spent, exact 35 minutes on discharge meds reconciliation, examination, coordination of care with nurses and ancillary staff, review of imaging and blood test and discussion with the patient on follow-up instructions. Microbiology Past 72 Hours 09/04/24 11:00 Blood Culture (Wb) - Anticubital Left Blood Culture - Final Staphylococcus aureus 09/04/24 11:00 Blood Culture (Wb) - Anticubital Left Blood Culture - Final Streptococcus group G Staphylococcus aureus 09/06/24 10:30 Stool Stool Occult Blood (DORYS) - Final Occult Blood Positive 09/04/24 12:40 Urine, Clean Catch Urine Culture - Final Culture exhibits no growth. Laboratory Results 09/08/24 15:59: POC Glucose 209 H 09/08/24 22:29: POC Glucose 116 H 09/09/24 06:57: POC Glucose 109 H 09/09/24 10:16: POC Glucose 235 H 09/09/24 10:43: Sodium 139, Potassium 2.5 L*, Chloride 95 L, Carbon Dioxide 29.5, Anion Gap 14, BUN 13, Creatinine 0.93, Estim Creat Clear Calc 76.02, Est GFR (MDRD) Non-Af 90, BUN/Creatinine Ratio 13.8, Glucose 303 H, Calcium 8.3, Phosphorus 2.9, Magnesium 1.8 Clinical Impression(s) from Imaging Studies Chest X-Ray 09/04/24 11:02 IMPRESSION: Stable examination with evidence of hyperinflation and pulmonary hypertension. Stable nodular density and/or infiltrate in the left upper lobe. Reading Location: [id number] Pelvis X-Ray 09/04/24 11:06 IMPRESSION: No acute abnormality is seen. Dense atherosclerotic calcification of the abdominal aorta and iliac arteries. Reading Location: [id number] Toe X-Ray 09/04/24 11:06 IMPRESSION: No acute fracture is seen. Reading Location: [id number] Chest/Abdomen/Pelvis CT 09/04/24 14:32 IMPRESSION: Heterogeneous consolidation in the left upper lobe with a central necrosis and left hilar lymphadenopathy. A neoplastic process should be ruled out. Tiny nodules in the right lung as described. Left adrenal mass suggestive of possible metastasis. Reading Location: [id number] Medications at Discharge Home Medications albuterol sulfate 2.5 mg/3 mL (0.083 %) solution for nebulization 2.5 mg inhalation DAILY 01/08/23 albuterol sulfate 90 mcg/actuation aerosol inhaler 2 puff inhalation PRN PRN shortness of breath or wheezing 01/08/23 aspirin 81 mg tablet,delayed release 81 mg PO DAILY 01/08/23 atorvastatin 20 mg tablet 20 mg PO QHS 01/08/23 dapagliflozin propanediol 5 mg tablet (Farxiga) 5 mg PO DAILY 01/08/23 fluticasone fur. 100 mcg-umeclid 62.5 mcg-vilant 25 mcg inhalat.powder (Trelegy Ellipta) 1 inh inhalation DAILY 01/08/23 furosemide 40 mg tablet 40 mg PO DAILY 01/08/23 paroxetine HCl 10 mg tablet 10 mg PO DAILY 01/08/23 pregabalin 150 mg capsule 150 mg PO DAILY 01/08/23 roflumilast 250 mcg tablet 250 mcg PO DAILY 01/08/23 tamsulosin 0.4 mg capsule 0.4 mg PO Q24H 01/08/23 metformin 500 mg tablet,extended release 24hr (osmotic) 1,500 mg PO QHS 03/22/24 gabapentin 300 mg capsule 300 mg PO QHS 05/10/24 esomeprazole magnesium 40 mg capsule,delayed release 40 mg PO DAILY 09/04/24 insulin lispro protamine-lispro 100 unit/mL (75-25) subcutaneous pen (Humalog Mix 75-25 KwikPen) 15 unit subcut BIDCM 09/04/24 metoprolol succinate 25 mg tablet,extended release 24 hr 25 mg PO DAILY 09/04/24 oxycodone 5 mg tablet 5 - 10 mg PO Q6H PRN PRN pain 09/04/24 prednisone 5 mg tablet 15 mg PO DAILY 09/04/24 semaglutide 7 mg tablet (Rybelsus) 7 mg PO DAILY 09/04/24 vitamin B complex (Complex B-100 tablet,extended release) 1 tab PO DAILY 09/04/24 lorazepam 1 mg tablet 0.5 mg (1/2 x 1 mg) PO TID PRN anxiety #90 tabs 09/11/24 potassium chloride 20 mEq tablet,extended release(part/cryst) 40 meq (2 x 20 mEq) PO BID 7 days #28 tabs 09/11/24 sennosides 8.6 mg-docusate sodium 50 mg tablet (Stimulant Laxative Plus) 2 tab PO BID #0 tabs 09/11/24 Physical Exam Narrative Seen and examined. Patient on 3 L of oxygen. Cough is improved almost resolved No acute change. Recent blood culture on 09/07 shows no growth for 70 hours On 3 L of oxygen Physical exam General: Alert, Oriented x3, Cooperative. BMI 27.1 kg/m?. HEENT: Atraumatic, PERRLA, EOMI, Normocephalic. Oral: No Gingival or Mucosal Lesions/ Ulcerations Neck: Supple, No JVD, Negative Carotid Bruits Chest wall/Lungs: Air entry diminished in bilateral lungs. No crepitation. Cardiovascular: Regular rate and rhythm, Normal S1,S2, no murmur gallop Abdomen: Bowel Sounds Present, Soft, Non Tender, Non-Distended : No dysuria. No renal angle tenderness. No suprapubic tenderness. Extremities: Mild 1 edema, Capillary Refill Less than 3 Seconds Skin: Right pinky toe bruised. Sores/abrasion on the inner right buttock Musculoskeletal: No Tenderness to Palpation of Joints or Extremities Neurological: Cranial nerves II-XII grossly intact, DTR 2+/4. No acute focal neurological deficit. Psych/Mental Status: Normal Affect, Appropriate. Weight / BMI Weight Weight: 183 lb 3.266 oz Body Mass Index (BMI) 27.0 ABG / Lab / Microbiology Data 09/10/24 05:25 09/11/24 05:26 Laboratory: Laboratory Results - last 24 hr 09/10/24 16:22: POC Glucose 243 H 09/10/24 22:03: POC Glucose 160 H 09/11/24 05:26: Sodium 143, Potassium 3.9, Chloride 103, Carbon Dioxide 30.1, Anion Gap 10, BUN 15, Creatinine 0.78, Estim Creat Clear Calc 88.38, Est GFR (MDRD) Non-Af 97, BUN/Creatinine Ratio 19.0, Glucose 118 H, Calcium 8.8 09/11/24 11:21: POC Glucose 149 H Microbiology: Microbiology 09/08/24 12:09 Blood Culture (Wb) - Anticubital Left Blood Culture - Preliminary No growth in 48 hours. 09/07/24 10:30 Blood Culture (Wb) - Arm Left Blood Culture - Preliminary No growth in 48 hours. 09/04/24 11:00 Blood Culture (Wb) - Anticubital Left Blood Culture - Final Staphylococcus aureus 09/04/24 11:00 Blood Culture (Wb) - Anticubital Left Blood Culture - Final Streptococcus group G Staphylococcus aureus 09/06/24 10:30 Stool Stool Occult Blood (DORYS) - Final Occult Blood Positive 09/04/24 12:40 Urine, Clean Catch Urine Culture - Final Culture exhibits no growth. 09/05/24 06:33 Sputum, Expectorated/Coughed Gram Stain - Final 09/05/24 06:33 Sputum, Expectorated/Coughed Respiratory Culture - Final 09/04/24 19:26 Stool Enteric Bacteriology - Final 09/04/24 19:26 Stool Clostridioides difficile (PCR) - Final 09/04/24 11:06 Mucosa - Nose SARS-CoV-2, Influenza & RSV (PCR) - Final D/C Instructions DC O2, CPAP, BIPAP Needs Home O2 Discharge instructions: Yes Type of respiratory needs?: Oxygen Oxygen frequency: Continuous Continuous oxygen liters per minute: 3 DC home with Oxygen: Yes Home O2 MD Review: I have reviewed the oxygen testing, and the patient qualifies for home oxygen equipment and portability. The patient is mobile in the home and the community. Meaningful Use Info Meaningful Use Meaningful Use Diagnoses (Choose all that apply): None applicable Ischemic Stroke Statin Dosing Therapy Reference: STATIN DOSE THERAPY REFERENCE: * Patients > 75 years receive moderate or high dose statin therapy. * Patients 75 years or YOUNGER should receive HIGH intensity statin dose unless contraindicated. You will be required to document reason for non-treatment if statin daily dose does not meet guidelines. HIGH DOSE STATIN THERAPY DAILY Atorvastatin > than or = to 40 mg Rosuvastatin > than or = to 20 mg Amlodipine + Atorvastatin > than or = to 2.5/40 mg Ezetimibe + Simvastatin 10/80 mg Simvastatin 80mg Discharge Plan Admission Admit Date/Time: 09/04/24 14:44 Primary Reason for Your Visit: Septic shock due to MSSA and strep bacteremia Attending Provider: Jose Zhang Primary Care Provider: Desiree Saleh Consulting Providers: Serina Juan; Stanton Ortega; Miguel Bazzi Instructions Additional Instructions / Restrictions: Advised BMP in 1 week Discharge Orders/Prescriptions Prescriptions: New sennosides-docusate sodium [Stimulant Laxative Plus] 8.6-50 mg Tablet 2 tab PO BID Qty: 0 0RF potassium chloride 20 mEq Tablet,Er Particles/Crystals 40 meq PO BID 7 Days Qty: 28 0RF Continued gabapentin 300 mg capsule 300 mg PO QHS furosemide 40 mg tablet 40 mg PO DAILY paroxetine HCl 10 mg tablet 10 mg PO DAILY pregabalin 150 mg capsule 150 mg PO DAILY roflumilast 250 mcg tablet 250 mcg PO DAILY tamsulosin 0.4 mg capsule 0.4 mg PO Q24H albuterol sulfate 2.5 mg /3 mL (0.083 %) solution for nebulization 2.5 mg inhalation DAILY albuterol sulfate 90 mcg/actuation HFA aerosol inhaler 2 puff INHALATION PRN PRN (Reason: shortness of breath or wheezing) aspirin 81 mg tablet,delayed release (DR/EC) 81 mg PO DAILY atorvastatin 20 mg tablet 20 mg PO QHS dapagliflozin propanediol [Farxiga] 5 mg tablet 5 mg PO DAILY Trelegy Ellipta 100-62.5-25 mcg blister with device 1 inh INHALATION DAILY metformin 500 mg tablet extended release 24hr 1,500 mg PO QHS Patient Comments: TAKE 2 tabs in the AM and One tab in PM Rx Instructions: TAKE 2 tabs in the AM and One tab in PM esomeprazole magnesium 40 mg capsule,delayed release(DR/EC) 40 mg PO DAILY metoprolol succinate 25 mg tablet extended release 24 hr 25 mg PO DAILY oxycodone 5 mg tablet 5 - 10 mg PO Q6H PRN PRN (Reason: pain) insulin lispro protamin-lispro [Humalog Mix 75-25 KwikPen] 100 unit/mL (75-25) insulin pen 15 unit subcut BIDCM Rybelsus 7 mg tablet 7 mg PO DAILY prednisone 5 mg tablet 15 mg PO DAILY Complex B-100 Tablet Extended Release 1 tab PO DAILY Changed lorazepam 1 mg tablet 0.5 mg PO TID PRN (Reason: anxiety) Qty: 90 0RF Referrals / Follow Up: Desiree Saleh MD [Primary Care Provider] - Miguel Bazzi MD [Med Staff - Active Staff] - Within 1 Month Disposition Disposition (needs filled in before D/C Order can be placed): Home Health Service Charges/Coding Visit Charges Inpatient E&M: 35444 Disch Hosp >30min
--- NOTE | 2024-09-11 11:28 | CASEMGMT ---
Addendum entered by Tisha Ward 09/11/24 15:02: VIPUL PEREA received call from [facility] that patient is not serviced by them. Per Vonda, account was transferred to [facility]. VIPUL PEREA called [facility] and verified order and that patient is active with them. VIPUL PEREA sent updated oxygen script to [facility] via [employer]. Addendum entered by Tisha aWrd 09/11/24 13:50: Script received for increase in home oxygen. VIPUL PEREA received notification that patient has been accepted by [facility], start of care planned for tomorrow. [facility]UL PEREA in to update patient. Patient states family can bring tank to vehicle for when he gets home to walk into the house. Patient does not require oxygen at rest. Physical address updated with registration:[address], [address], [place]. Patient updated family and they will be picking him up around 1930. VIPUL PEREA updated discharge plan and nurse. Original Note: VIPUL PEREA in to discuss discharge planning with patient. Per therapy, patient is appropriate to discharge with C. [facility]UL PEREA discussed HHC with patient. Patient states he has had [facility] and that is his preferred agency, declined HHC list. Patient states he has portable tank for at home, will monitor for increase in home oxygen at discharge. Patient had no further questions or concerns. VIPUL PEREA called [facility] with referral, awaiting acceptance. CM will continue to follow this patient and plan for a safe discharge.
--- NOTE | 2024-09-11 11:36 | WOUNDNOTE ---
In to reassess the left 5th toe. removed the dressing. no drainage noted. no erythema. toe remains black with dry eschar. would recommend follow up with podiatry at discharge to monitor the toe. no sign of infection noted at this time. applied betadine with dry dressings. pt tolerated well. see wound photos.
[2024-09-11 11:39] LABS: Bedside Glucose 149 mg/dL (74-106)
--- NOTE | 2024-09-11 11:45 | WOUNDNOTE ---
wound photo: left 5th toe
--- NOTE | 2024-09-11 11:45 | WOUNDNOTE ---
wound photo: left 5th toe
--- NOTE | 2024-09-11 12:41 | PCM.PN.ID ---
ID ID: Route of nutrition/ use of supplements: [] Nutritional Intake: [] IV Site: [] Hollis Catheter: [] Patient is alert overall clinically stable. In overall good spirits. No fevers. Microbiology data reviewed. Antimicrobial regimen also reviewed. No cardiopulmonary distress. Transthoracic echocardiogram no valvular pathology noted. Alert responsive does not appear toxic lungs are clear heart exam S1-S2 no murmurs appreciated abdomen soft nontender. Vital signs reviewed remains euthermic. Left fifth toe necrotic. Assessment & Plan Assessment/Plan (1) MSSA bacteremia: PLAN: Clinically improving on parenteral antibiotic therapy. At this point we will transition to cephalexin 500 mg 4 times a day for 7 more days. I did write that prescription.
[2024-09-11] MEDS: Glucerna Shake 120 ML LIQUID PO ×2 (13:19→16:34)
--- NOTE | 2024-09-11 14:02 | PHA.DC.MC.R ---
Pharmacy [facility] Counseling Pharmacy Service has performed discharge medication reconciliation and counseling for this patient. 1. CEPHALEXIN 500MG PO 4X/DAY X 7 DAYS 2. POTASSIUM CHLORIDE 20MEQ PO BIDCM 3. SENNA/DOCUSATE 2T PO BID 4. LORAZEPAM CHANGED TO 0.5MG PO TID PRN ANXIETY The patient's discharge medication list was reviewed for discrepancies and discrepancies were resolved. The patient was counseled on the following discharge medications and changes in medications for homegoing were reviewed. The Reason for Use, instructions for use, and potential side effects were reviewed for all new medications. The patient's questions regarding all of their medications were answered. The patient was able to verbally demonstrate an understanding of their discharge medications. Medications at Discharge Home Medications albuterol sulfate 2.5 mg/3 mL (0.083 %) solution for nebulization 2.5 mg inhalation DAILY 01/08/23 albuterol sulfate 90 mcg/actuation aerosol inhaler 2 puff inhalation PRN PRN shortness of breath or wheezing 01/08/23 aspirin 81 mg tablet,delayed release 81 mg PO DAILY 01/08/23 atorvastatin 20 mg tablet 20 mg PO QHS 01/08/23 dapagliflozin propanediol 5 mg tablet (Farxiga) 5 mg PO DAILY 01/08/23 fluticasone fur. 100 mcg-umeclid 62.5 mcg-vilant 25 mcg inhalat.powder (Trelegy Ellipta) 1 inh inhalation DAILY 01/08/23 furosemide 40 mg tablet 40 mg PO DAILY 01/08/23 paroxetine HCl 10 mg tablet 10 mg PO DAILY 01/08/23 pregabalin 150 mg capsule 150 mg PO DAILY 01/08/23 roflumilast 250 mcg tablet 250 mcg PO DAILY 01/08/23 tamsulosin 0.4 mg capsule 0.4 mg PO Q24H 01/08/23 metformin 500 mg tablet,extended release 24hr (osmotic) 1,500 mg PO QHS 03/22/24 gabapentin 300 mg capsule 300 mg PO QHS 05/10/24 esomeprazole magnesium 40 mg capsule,delayed release 40 mg PO DAILY 09/04/24 insulin lispro protamine-lispro 100 unit/mL (75-25) subcutaneous pen (Humalog Mix 75-25 KwikPen) 15 unit subcut BIDCM 09/04/24 metoprolol succinate 25 mg tablet,extended release 24 hr 25 mg PO DAILY 09/04/24 oxycodone 5 mg tablet 5 - 10 mg PO Q6H PRN PRN pain 09/04/24 prednisone 5 mg tablet 15 mg PO DAILY 09/04/24 semaglutide 7 mg tablet (Rybelsus) 7 mg PO DAILY 09/04/24 vitamin B complex (Complex B-100 tablet,extended release) 1 tab PO DAILY 09/04/24 cephalexin 500 mg capsule 500 mg PO 4XD 1 week #28 caps 09/11/24 lorazepam 1 mg tablet 0.5 mg (1/2 x 1 mg) PO TID PRN anxiety #90 tabs 09/11/24 potassium chloride 20 mEq tablet,extended release(part/cryst) 40 meq (2 x 20 mEq) PO BID 7 days #28 tabs 09/11/24 sennosides 8.6 mg-docusate sodium 50 mg tablet (Stimulant Laxative Plus) 2 tab PO BID #0 tabs 09/11/24
[2024-09-11 17:02] LABS: Bedside Glucose 289 mg/dL (74-106)
--- NOTE | 2024-09-11 17:33 | PN_ITS ---
Progress Note Hgb has been holding steady. Physical Exam Narrative Feeling better, no fever, no n/v/d Const alert and no apparent distress General Appearance: cooperative Resp normal air movement and clear to auscultation bilaterally Cardio regular rate and regular rhythm GI soft to palpation, non-tender and non-distended Skin no rashes or lesions noted Assessment & Plan Assessment/Plan (1) Weakness: (2) Anemia: (3) Septic shock: (4) Pneumonia: PLAN: Plan Patient is a 69-year-old male who presented to [facility] ED on 09/04/2024 with generalized weakness with a fall. Septic shock and acute hypoxia suspected secondary to pneumonia and COPD exacerbation, gram-positive bacteremia ? [employer] Applications Developer following. ID consulted. On home oxygen, requiring 4 L on admit to maintain appropriate saturations. Clinical concern for left upper lobe pneumonia. As per ID, he will be continuing medications at home Metastatic lung cancer with recent radiation therapy ? Follows with outpatient oncology and radiation oncology. See quick note for further details on cancer history. In short, patient was recently initiated on radiation therapy for metastases to T6 and T7. It appears he completed 3 of 5 rounds of radiation that were planned for this. Has history of resection of cancer in [place] in 2016 and radiation therapy of cancer in [place] in 2023. Acute on chronic anemia ? Hemoglobin 7.2 on admit, dropped to 6.8 on hospital day 2. Hemoglobin in June was 11 and that appeared to be his baseline. In [facility] records, hemoglobin 9.7 on CBC from 08/21. Patient denies change in bowel movements. Iron studies notably with high ferritin consistent with anemia of chronic disease. Transfuse 1 unit of blood with repeat hemoglobin 7.8 on morning of 09/06. EGD on 09/06 was unremarkable. Will de-escalate to p.o. PPI daily. Continue to monitor CBC daily. Hgb is at 9.4. Capsule endo as an outpatient. Visit Charges Inpatient E&M: 68196 Subs Hosp L3
--- NOTE | 2024-09-11 20:45 | NURSING ---
Patient was discharged home with belongings at this time with family present. Nurse reviewed discharge instructions and family states they have home O2 ready. Iv site was removed.
== END 2024-09-11 20:45 | disposition home health service (06) | DRG 871 ==
LOC: ED 14:25 → ICU 15:49 → PCU 09-06 06:20
PROVIDERS: Anesthesiology; Hospitalist; Internal Medicine Gastroenterology; Student in an Organized Health Care Education/Training Program; Admitting Provider Internal Medicine; Emergency Provider Emergency Medicine; PCP Internal Medicine; Visit Provider Internal Medicine
PROC: 0DJ08ZZ Inspection of Upper Intestinal Tract, Via Natural or Artificial Opening Endoscopic (ICD-10-PCS; CPT 43235; principal; 2024-09-06 14:10)
PROC: 0DJD8ZZ Inspection of Lower Intestinal Tract, Via Natural or Artificial Opening Endoscopic (ICD-10-PCS; CPT 45378; principal; 2024-09-07 16:25)
DX: A41.9 Sepsis, unspecified organism (principal); J18.9 Pneumonia, unspecified organism; R65.21 Severe sepsis with septic shock; E87.1 Hypo-osmolality and hyponatremia; C34.12 Malignant neoplasm of upper lobe, left bronchus or lung; J44.0 Chronic obstructive pulmonary disease with (acute) lower respiratory infection; J44.1 Chronic obstructive pulmonary disease with (acute) exacerbation; Z68.1 Body mass index [BMI] 19.9 or less, adult; D63.8 Anemia in other chronic diseases classified elsewhere; E11.40 Type 2 diabetes mellitus with diabetic neuropathy, unspecified; D50.9 Iron deficiency anemia, unspecified; F32.A Depression, unspecified; K21.9 Gastro-esophageal reflux disease without esophagitis; I25.10 Atherosclerotic heart disease of native coronary artery without angina pectoris; E87.6 Hypokalemia; E78.00 Pure hypercholesterolemia, unspecified; F41.9 Anxiety disorder, unspecified; K57.30 Diverticulosis of large intestine without perforation or abscess without bleeding; K62.1 Rectal polyp; E27.9 Disorder of adrenal gland, unspecified; Z79.4 Long term (current) use of insulin; G47.33 Obstructive sleep apnea (adult) (pediatric); N40.1 Benign prostatic hyperplasia with lower urinary tract symptoms; R33.9 Retention of urine, unspecified; Z79.51 Long term (current) use of inhaled steroids; Z79.84 Long term (current) use of oral hypoglycemic drugs; Z79.82 Long term (current) use of aspirin; Z87.891 Personal history of nicotine dependence; Z79.899 Other long term (current) drug therapy; Z86.718 Personal history of other venous thrombosis and embolism; Z95.1 Presence of aortocoronary bypass graft
CPT/HCPCS: 36415; 71045; 71260; 72170; 73660; 74177; 80048; 80202; 81001; 82274; 82607; 82728; 82747; 82962; 83036; 83540; 83550; 83605; 83735; 84100; 85014; 85025; 85027; 85045; 85610; 85730; 86850; 86900; 86901; 87040; 87077; 87086; 87186; 87205; 87493; 87506; 87631; 88305; 93005; 93306; 94640; 94660; 97116; 97162; 97166; 97530; 97535; 97803; 99285; P9016; P9612; Q9967; A4216; J2405

== ENCOUNTER 2024-09-19 13:47 | Inpatient (IN) | payer MEDICARE, SELFPAY ==
[2024-09-19] VITALS (12 sets, daily range): BP systolic 98–127; BP diastolic 53–78; PULSE 79–88; RESP 16–22; TEMP 36.3–37.2; O2SAT 97–100; BMI 24.8; BMI 23.8
--- NOTE | 2024-09-19 14:42 | EKG12_ITS ---
Test Reason : Blood Pressure : */* mmHG Vent. Rate : 80 BPM Atrial Rate : 80 BPM P-R Int : 166 ms QRS Dur : 110 ms QT Int : 390 ms P-R-T Axes : * 98 52 degrees QTcB Int : 449 ms Normal sinus rhythm Rightward axis Borderline ECG Confirmed by ANASTACIO DELAROSA MD ([id number]), editorial assistant ARIA CERVANTES ([id number]) on 09/21/2024 6:35:24 AM Referred By: Confirmed By: ANASTACIO DELAROSA MD
--- NOTE | 2024-09-19 14:52 | EX.ED.DYSGE1 ---
HPI History of Present Illness Chief Complaint: Weakness Narrative Narrative: Chief complaint and HPI: Weakness and hypotension. History taken by patient as well as medical record. I reviewed the discharge summary on 09/11/2024. 69-year-old male with past medical history of COPD on 3 L nasal cannula, HTN, DM, metastatic lung cancer to the thoracic spine currently receiving radiation and previously resection of the right upper lung in 2017 presents for evaluation of weakness and hypotension. Patient was just discharged in the hospital on 09/11/2024 for septic shock secondary to pneumonia and COPD exacerbation. He also had gram-positive bacteremia. Patient states that he woke up this morning lightheaded with generalized weakness. He states his blood pressure was taken by his home nurse and he was found to be hypotensive with an SBP in the 70s. He denies any fever, chills, shortness of breath, chest pain, nausea, vomiting, dysuria. States for the past week he has been having intermittent abdominal pain and diarrhea. States he has been eating and drinking. Patient states for the past 2 weeks his left fifth toe has become necrotic. He has yet to follow-up with this. He denies any new numbness or tingling. Denies any new back pain other than his baseline. Review of systems: See HPI Medications: As listed on the chart Allergies: As listed on the chart PFSH: Per chart Vital signs: As listed on the chart. Reviewed. Physical exam: Gen: A&O x3, NAD Head: Normocephalic, atraumatic Eyes: No sclera icterus, conjunctiva clear ENT: Dry mucous membranes Neck: Trachea midline, No JVD, full range of motion CV: RRR, no murmurs Resp: Lungs CTA BL but diminished on the right side, no w/r/c, on baseline 3 L nasal cannula GI: Abd soft, non-distended, mildly tender to palpation diffusely, no r/r/g : Circumcised penis. No penile tenderness or discharge. No penile or testicular swelling. Normal lie and position of the testicles. No testicular tenderness, masses, or skin changes. No rashes Musc: Moves all extremities, strength plus 5 out of 5 in all extremities Skin: Warm, dry Neuro: Alert, oriented, grossly intact, sensation intact Psych: Cooperative, appropriate mood and affect [facility] Medical History Alcohol use Excessive bleeding History of echocardiogram History of stress test Cardiology follow-up encounter Chest pain Vitamin D deficiency Left adrenal mass CAD (coronary artery disease) Blind Cancer Depression Anxiety Diabetes Prostate disease DVT (deep venous thrombosis) High cholesterol Easy bruising Umbilical hernia Neuropathy Injury of head and neck Syncope Former smoker On home oxygen therapy CPAP (continuous positive airway pressure) dependence COPD (chronic obstructive pulmonary disease) Shortness of breath on exertion History of edema Hypertension Home Medications ?Medication ?Instructions ?Recorded ?Last Taken ?Type albuterol sulfate 2.5 mg/3 mL 2.5 mg inhalation DAILY 01/08/23 09/03/24 History (0.083 %) solution for nebulization albuterol sulfate 90 mcg/actuation 2 puff inhalation PRN PRN 01/08/23 05/30/24 History aerosol inhaler shortness of breath or wheezing aspirin 81 mg tablet,delayed 81 mg PO DAILY 01/08/23 09/04/24 History release atorvastatin 20 mg tablet 20 mg PO QHS 01/08/23 09/03/24 History dapagliflozin propanediol 5 mg 5 mg PO DAILY 01/08/23 09/03/24 History tablet (Farxiga) fluticasone fur. 100 mcg-umeclid 1 inh inhalation DAILY 01/08/23 09/03/24 History 62.5 mcg-vilant 25 mcg inhalat.powder (Trelegy Ellipta) furosemide 40 mg tablet 40 mg PO DAILY 01/08/23 09/04/24 History paroxetine HCl 10 mg tablet 10 mg PO DAILY 01/08/23 09/04/24 History pregabalin 150 mg capsule 150 mg PO DAILY 01/08/23 09/04/24 History roflumilast 250 mcg tablet 250 mcg PO DAILY 01/08/23 09/04/24 History tamsulosin 0.4 mg capsule 0.4 mg PO Q24H 01/08/23 09/04/24 History metformin 500 mg tablet,extended 1,500 mg PO QHS 03/22/24 09/04/24 History release 24hr (osmotic) gabapentin 300 mg capsule 300 mg PO QHS 05/10/24 09/03/24 History esomeprazole magnesium 40 mg 40 mg PO DAILY 09/04/24 09/03/24 History capsule,delayed release insulin lispro protamine-lispro 15 unit subcut BIDCM 09/04/24 09/04/24 History 100 unit/mL (75-25) subcutaneous pen (Humalog Mix 75-25 KwikPen) metoprolol succinate 25 mg 25 mg PO DAILY 09/04/24 09/04/24 History tablet,extended release 24 hr oxycodone 5 mg tablet 5 - 10 mg PO Q6H PRN PRN pain 09/04/24 Unknown History prednisone 5 mg tablet 15 mg PO DAILY 09/04/24 Unknown History semaglutide 7 mg tablet (Rybelsus) 7 mg PO DAILY 09/04/24 09/04/24 History vitamin B complex (Complex B-100 1 tab PO DAILY 09/04/24 09/04/24 History tablet,extended release) cephalexin 500 mg capsule 500 mg PO 4XD 1 week #28 caps 09/11/24 Unknown Rx lorazepam 1 mg tablet 0.5 mg (1/2 x 1 mg) PO TID PRN 09/11/24 Unknown Rx anxiety #90 tabs potassium chloride 20 mEq 40 meq (2 x 20 mEq) PO BID 7 days 09/11/24 Unknown Rx tablet,extended release(part/cryst) #28 tabs sennosides 8.6 mg-docusate sodium 2 tab PO BID #0 tabs 09/11/24 Unknown Rx 50 mg tablet (Stimulant Laxative Plus) Allergy/AdvReac Type Severity Reaction Status Date / Time No Known Allergies Allergy Verified 07/24/24 10:03 Family History Mother Cancer LUNG Heart disease Father Cancer lung Sister Cancer lung Heart disease Sister Cancer lung Sister Cancer lung Sister Colon cancer Surgical History Hx of fracture of leg Hx of fracture of foot History of bronchoscopy Hx of biopsy History of lobectomy of lung Hx of oral surgery History of open heart surgery (05/08/15) Social History household members: none housing: other 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 Smoking Status: Former smoker quit date: 03/15/15 pack-years: 120 alcohol intake: current alcohol intake frequency: a few times a month Alcohol type: beer substance use type: does not use what type of physical activity do you participate in: none seatbelt use: always do you feel safe at home: Yes EXAM Physical Exam Const Vital Signs: 09/19/24 13:48 09/19/24 13:48 09/19/24 13:53 Temperature 98.2 F 98.2 F Temperature Source Oral Oral Pulse Rate 85 81 Respiratory Rate 16 16 Respiratory Effort Short of Breath Respiratory Pattern Normal Blood Pressure 103/78 103/78 Blood Pressure Mean 86 86 Pulse Ox 100 100 Oxygen Delivery Method Room Air Nasal Cannula Oxygen Flow Rate (L/min) 3 09/19/24 14:53 09/19/24 16:01 09/19/24 16:10 Temperature 98.5 F 98.2 F Temperature Source Oral Oral Pulse Rate 79 84 80 Respiratory Rate 17 22 H 18 Respiratory Effort Respiratory Pattern Blood Pressure 109/63 127/62 H 127/62 H Blood Pressure Mean 78 83 83 Pulse Ox 100 100 98 Oxygen Delivery Method Room Air Nasal Cannula Nasal Cannula Oxygen Flow Rate (L/min) 2 2 MDM MDM MDM Narrative Medical decision making narrative: 69-year-old male with past medical history of COPD on 3 L nasal cannula, HTN, DM, metastatic lung cancer to the thoracic spine currently receiving radiation and previously resection of the right upper lung in 2017 presents for evaluation of weakness and hypotension. History taken by patient as well as medical record see HPI. Patient was just discharged in the hospital on 09/11/2024 for septic shock secondary to pneumonia and COPD exacerbation. He also had gram-positive bacteremia. Patient states that he woke up this morning lightheaded with generalized weakness. On presentation, patient in no acute distress. Not hypotensive although has soft blood pressure of 103/78. Afebrile. On baseline 3 L nasal cannula. Differential diagnosis includes but is not limited to viral illness, intra-abdominal pathology, osteomyelitis, necrotic foot, pneumonia, PE, electrolyte abnormality, AMBROSE, dehydration, UTI. NS bolus ordered with extensive laboratory workup including CTA chest and CT abdomen pelvis. CBC shows mild leukocytosis 11.5. This is downtrending from 09/10 at 15. Patient has baseline anemia of 8.2. CMP shows hyponatremia 129. Sodium was normal on 09/11. No AMBROSE. Lactic acid 2.2, suspect that this is secondary to mild dehydration. Patient has mild transaminitis with an AST of 42 and ALT of 50. Lipase unremarkable. Troponin 49 and 42. Patient not endorsing any chest pain. No ischemic changes on his EKG. CRP elevated at 1 time. This may be secondary to his cancer. UA is negative for dehydration. X-ray of the foot without fracture or dislocation. Patient has hardware in place. Radiology in agreement. No signs of osteomyelitis. Again patient's foot appears to be more of a dry gangrene versus a wets, will not prescribe antibiotics at this time. CT of the chest negative for PE. Patient's chronic changes are seen with his metastatic cancer. No acute intra-abdominal infection. On reevaluation, patient not endorsing any complaints other than weakness. His blood pressure has improved with a liter of fluid. Patient will warrant admission for his hyponatremia and dry gangrene. He confirmed understand the plan. I spoke with Dr. Zhang who will admit to the hospital. Recommended me reaching out to podiatry. Agree with no antibiotics at this time for the toe. Will reach out to podiatry, Dr. Thayer is on-call. He was made aware. EKG: Interpreted by me/EM physician: EKG shows normal sinus rhythm without any acute ischemic changes. Heart rate 80. Impression: 1. Dry gangrene of the left fifth toe 2. Hyponatremia 3. Dehydration 4. Mild lactic acidosis likely secondary to #3 5. Metastatic lung cancer Lab Data Labs: Laboratory Results - last 24 hr 09/19/24 09/19/24 09/19/24 13:58 14:58 15:00 WBC 11.5 H RBC 3.01 L Hgb 8.2 L Hct 27.4 L MCV 91.0 MCH 27.2 MCHC 29.9 L RDW Std Deviation 58.8 H RDW Coeff of Jaquan 17.5 H Plt Count 158 MPV 10.6 Immature Gran % (Auto) 1.200 H Neut % (Auto) 84.9 H Lymph % (Auto) 8.3 L [place] % (Auto) 5.3 Eos % (Auto) 0.2 Baso % (Auto) 0.1 Absolute Neuts (auto) 9.8 H Absolute Lymphs (auto) 0.96 Nucleated RBC % 0 ESR 53 H Sodium 129 L Potassium 4.9 Chloride 94 L Carbon Dioxide 24.4 Anion Gap 11 BUN 12 Creatinine 0.86 Estim Creat Clear Calc 82.21 Est GFR (MDRD) Non-Af 94 BUN/Creatinine Ratio 14.3 Glucose 124 H Lactic Acid 2.2 H* Calcium 10.5 Magnesium 1.5 Total Bilirubin 0.49 AST 42 H ALT 50 H Alkaline Phosphatase 112 Troponin T High Sens 49 H Troponin T Hi Sens 2 Hr C-React Prot Ext Range 110.00 H Total Protein 6.5 Albumin 3.0 L Globulin 3.5 Albumin/Globulin Ratio 0.8 L Lipase 63 Urine Color Straw Urine Clarity Clear Urine pH 7.0 Ur Specific [place] 1.005 Urine Protein 15 H Urine Glucose (UA) 250 H Urine Ketones Negative Urine Occult Blood Negative Urine Nitrite Negative Urine Bilirubin Negative Urine Urobilinogen Normal Ur Leukocyte Esterase Negative Urine RBC 0-5 SEEN Urine WBC 0-5 SEEN Ur Squamous Epith Cells 0-5 SEEN Urine Bacteria 0 SEEN Urine Mucus 0 SEEN 09/19/24 15:57 WBC RBC Hgb Hct MCV MCH MCHC RDW Std Deviation RDW Coeff of Jaquan Plt Count MPV Immature Gran % (Auto) Neut % (Auto) Lymph % (Auto) [place] % (Auto) Eos % (Auto) Baso % (Auto) Absolute Neuts (auto) Absolute Lymphs (auto) Nucleated RBC % ESR Sodium Potassium Chloride Carbon Dioxide Anion Gap BUN Creatinine Estim Creat Clear Calc Est GFR (MDRD) Non-Af BUN/Creatinine Ratio Glucose Lactic Acid Calcium Magnesium Total Bilirubin AST ALT Alkaline Phosphatase Troponin T High Sens Troponin T Hi Sens 2 Hr 42 H C-React Prot Ext Range Total Protein Albumin Globulin Albumin/Globulin Ratio Lipase Urine Color Urine Clarity Urine pH Ur Specific [place] Urine Protein Urine Glucose (UA) Urine Ketones Urine Occult Blood Urine Nitrite Urine Bilirubin Urine Urobilinogen Ur Leukocyte Esterase Urine RBC Urine WBC Ur Squamous Epith Cells Urine Bacteria Urine Mucus Radiography Diagnostic Testing: Clinical Impression(s) from Imaging Studies Abdomen/Pelvis CT 09/19/24 15:43 IMPRESSION: 1. No filling defects suspicious for pulmonary arterial emboli. 2. Redemonstrated large left upper lobe mass with extension to the left suprahilar region. Left hilar and mediastinal lymphadenopathy. Progression of numerous bilateral pulmonary satellite nodules. 3. Bulky metastatic left axillary lymphadenopathy. 4. Localized invasion of the left upper lung malignancy to the posterolateral left chest wall with erosive changes of multiple adjacent left upper ribs. Additional metastatic lesions involving the midthoracic spine posterior elements at T5-T7 with osseous erosion and slight epidural disease extension. 5. Partial encasement and moderate narrowing of left upper lobe pulmonary arterial branches. 6. Indeterminate left adrenal gland nodular lesion measuring 2.8 cm. 7. No suspicious enlarged abdominopelvic lymph nodes identified. 8. 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 9. Additional ancillary findings/details, as described above. Reading Location: [facility] Chest CTA 09/19/24 15:43 IMPRESSION: 1. No filling defects suspicious for pulmonary arterial emboli. 2. Redemonstrated large left upper lobe mass with extension to the left suprahilar region. Left hilar and mediastinal lymphadenopathy. Progression of numerous bilateral pulmonary satellite nodules. 3. Bulky metastatic left axillary lymphadenopathy. 4. Localized invasion of the left upper lung malignancy to the posterolateral left chest wall with erosive changes of multiple adjacent left upper ribs. Additional metastatic lesions involving the midthoracic spine posterior elements at T5-T7 with osseous erosion and slight epidural disease extension. 5. Partial encasement and moderate narrowing of left upper lobe pulmonary arterial branches. 6. Indeterminate left adrenal gland nodular lesion measuring 2.8 cm. 7. No suspicious enlarged abdominopelvic lymph nodes identified. 8. 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 9. Additional ancillary findings/details, as described above. Reading Location: [facility] Foot X-Ray 09/19/24 15:45 IMPRESSION: Plate and screws transfixing the 2nd and 3rd tarsal-metatarsal joints appear stable. No evidence of metallic fracture or screw loosening. Stable degenerative changes, including of the 1st tarsal-metatarsal joint, and to a lesser extent the toes and 1st metatarsophalangeal joint. No acute fracture or dislocation is evident. Reading Location: [id number] Discharge Plan Triage Chief Complaint: Weakness ED Provider: Иван Aranda Dx/Rx/DC Orders Prescriptions: No Action gabapentin 300 mg capsule 300 mg PO QHS furosemide 40 mg tablet 40 mg PO DAILY paroxetine HCl 10 mg tablet 10 mg PO DAILY pregabalin 150 mg capsule 150 mg PO DAILY roflumilast 250 mcg tablet 250 mcg PO DAILY tamsulosin 0.4 mg capsule 0.4 mg PO Q24H albuterol sulfate 2.5 mg /3 mL (0.083 %) solution for nebulization 2.5 mg inhalation DAILY albuterol sulfate 90 mcg/actuation HFA aerosol inhaler 2 puff INHALATION PRN PRN (Reason: shortness of breath or wheezing) aspirin 81 mg tablet,delayed release (DR/EC) 81 mg PO DAILY atorvastatin 20 mg tablet 20 mg PO QHS dapagliflozin propanediol [Farxiga] 5 mg tablet 5 mg PO DAILY Trelegy Ellipta 100-62.5-25 mcg blister with device 1 inh INHALATION DAILY metformin 500 mg tablet extended release 24hr 1,500 mg PO QHS Patient Comments: TAKE 2 tabs in the AM and One tab in PM Rx Instructions: TAKE 2 tabs in the AM and One tab in PM esomeprazole magnesium 40 mg capsule,delayed release(DR/EC) 40 mg PO DAILY metoprolol succinate 25 mg tablet extended release 24 hr 25 mg PO DAILY oxycodone 5 mg tablet 5 - 10 mg PO Q6H PRN PRN (Reason: pain) insulin lispro protamin-lispro [Humalog Mix 75-25 KwikPen] 100 unit/mL (75-25) insulin pen 15 unit subcut BIDCM Rybelsus 7 mg tablet 7 mg PO DAILY prednisone 5 mg tablet 15 mg PO DAILY Complex B-100 Tablet Extended Release 1 tab PO DAILY sennosides-docusate sodium [Stimulant Laxative Plus] 8.6-50 mg Tablet 2 tab PO BID Qty: 0 0RF potassium chloride 20 mEq Tablet,Er Particles/Crystals 40 meq PO BID 7 Days Qty: 28 0RF lorazepam 1 mg tablet 0.5 mg PO TID PRN (Reason: anxiety) Qty: 90 0RF cephalexin 500 mg capsule 500 mg PO 4XD 7 Days Qty: 28 0RF Primary Care Provider: Desiree Saleh Referrals: Desiree Saleh MD [Primary Care Provider] - Print Language: Albanian
[2024-09-19 14:55] LABS: Hematocrit 27.4 % (40-54); Hemoglobin 8.2 g/dL (13.0-16.5); Immature Granulocytes Count 0.140 X10^3/uL (0.0-0.0); Mean Corp Hgb Conc 29.9 g/dL (32-36); Mean Corpuscular Volume 91.0 fL (80-94); Mean Platelet Vol. 10.6 fl (6.2-12.0); NRBC Flagged by Analyzer 0 % (0-5); Platelet Count 158 K/mm3 (150-450); RBC Distribution Width CV 17.5 % (11.6-14.6); RBC Distribution Width SD 58.8 fl (35.1-43.9); Red Blood Count 3.01 M/mm3 (4.6-6.2); White Blood Count 11.5 K/mm3 (4.4-11.0)
[2024-09-19] MEDS: 0.9% Normal Saline (1000mL) 1,000 ML 1000 ML IV (14:59)
[2024-09-19 15:18] LABS: Mucous, Urine 0 SEEN /hpf (<or=2+)
[2024-09-19 15:25] LABS: AST(SGOT) 42 U/L (<=37); Alanine Aminotransfer ALT/SGPT 50 U/L (<=46); Albumin, Serum 3.0 g/dL (3.4-4.8); Alkaline Phosphatase 112 U/L (40-129); Anion Gap 11 (5-15); BUN 12 mg/dL (4-19); BUN/Creat Ratio 14.3 RATIO (10-20); Calcium,Total 10.5 mg/dL (7.6-11.0); Carbon Dioxide 24.4 mmol/L (21.0-32.0); Chloride 94 mmol/L (98-108); Estimated Creatinine Clearance 82.21 ml/min (50-250); Globulin 3.5 g/dL (2.2-4.2); Glucose 124 mg/dL (70-99); Lipase 63 U/L (13-75); Potassium 4.9 mmol/L (3.3-5.1)
[2024-09-19 15:26] LABS: Color, Urine Straw (Yellow); Glucose, Dipstick 250 mg/dl (Normal); Ketone-Dipstick Negative (Negative); Leukocyte Esterase-Dipstick Negative /ul (Negative); Nitrite-Dipstick Negative (Negative); Occult Blood-Urine Negative /ul (Negative); Protein-Dipstick 15 mg/dl (Negative); Specific Gravity, Urine 1.005 (1.002-1.030); Urine Bilirubin Dipstick Negative (Negative)
--- NOTE | 2024-09-19 15:43 | CT_ITS ---
PROCEDURE: CTA CHEST W/WO CONTRAST; ABDOMEN/PELVIS W IV CONT ONLY 09/19/2024 REASON FOR EXAM: HYPOTENSION, KNOWN CANCER IN THE THORACIC SPINE; ABDOMINAL PAIN, DIARRHEA TECHNIQUE: CTA CHEST W/WO CONTRAST; ABDOMEN/PELVIS W IV CONT multiplanar Sagittal and Coronal images were obtained. 3D post processing was performed. CONTRAST: Isovue 370. One or more dose reduction techniques were used (e.g., Automated exposure control, adjustment of the mA and/or kV according to patient size, use of iterative reconstruction technique). RADIATION DOSE SUMMARY: DLP: 1356.09 mGycm COMPARISON: CT chest abdomen and pelvis 09/04/2024. FINDINGS: Pulmonary vessels: No filling defects suspicious for pulmonary arterial emboli. Prominent caliber of the central pulmonary arteries, suggesting pulmonary arterial hypertension. No evidence of right heart strain. Lungs/pleura: Large masslike lesion within the left upper lobe extending to the left suprahilar region with surrounding spiculated density, concerning for primary or metastatic lung malignancy. Numerous additional scattered satellite nodules throughout both lungs, presumed metastatic, with significant interval progression. No pneumothorax or pleural effusions. Mild bilateral emphysema. Central airways are patent, although with small amount of mucoid debris in the left mainstem bronchus and lower trachea. Left upper lobe mass lesion moderately narrows some of the left upper lobe pulmonary arterial branch vessels without definite occlusion. The lesion also invades the left posterolateral chest wall with erosive changes of the left 2nd through 5th ribs. Mediastinum/nodes: Multiple enlarged bulky left hilar lymph nodes. Nonspecific subcentimeter mediastinal lymph nodes elsewhere, primarily in the prevascular region in the left mediastinum. Subcentimeter right hilar lymph nodes are also nonspecific. Multiple enlarged bulky and centrally necrotic appearing left axillary lymph nodes. Heart: Nonenlarged. No pericardial effusion. Moderate coronary artery calcifications. Aorta: Diffusely tortuous, with advanced atherosclerotic disease involving major branch vessels. Large amount of eccentric noncalcified atheromatous plaque along the aorta and bilateral iliac vessels. 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 Undulating fusiform aneurysm of the infrarenal abdominal aorta which measures up to 4.1 cm in diameter. 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 Liver: Stable ill-defined small hypodense lesion in the medial right lobe adjacent to the falciform ligament is most likely benign focal fatty infiltration. No other suspicious hepatic lesion. Gallbladder: Contracted, grossly unremarkable. No biliary ductal dilatation. Spleen: Normal in size, unchanged nonspecific subcentimeter hypodense lesion which is too small to characterize, but is most likely a small benign cyst or hemangioma. Pancreas: Unremarkable. Adrenal glands: Indeterminate nodular lesion in the left adrenal gland measuring up to 2.8 cm, stable from prior exam, but would require a dedicated adrenal CT or MRI to further characterize. Kidneys: Normal, symmetric enhancement. No hydroureteronephrosis or urolithiasis. No mass. Urinary bladder: Smoothly distended, no abnormal wall thickening. Reproductive organs: Unremarkable, nonenlarged prostate. GI tract: Normal caliber, no evidence of obstruction or active inflammatory process. Moderate colonic stool burden. Normal appendix. Peritoneum/retroperitoneum: No ascites or free air. Lymph nodes: No suspicious enlarged abdominopelvic lymph nodes. Musculoskeletal: Prior median sternotomy. Multilevel degenerative changes of the spine with a few chronic appearing compression fracture deformities involving T12 superior endplate and T2. Several chronic rib fracture deformities. Diffuse qualitative osteopenia. Aforementioned left posterolateral chest wall invasion from left upper lobe malignancy with extensive osseous erosion of the left 2nd through 5th ribs. Pleural-based nodule posterolateral right lung region at the level of T6-T7 and large nodular presumed metastatic lesion(s) with destructive changes and erosion of the posterior elements of the midthoracic spine from roughly T5-T7. There is slight epidural extension of this lesion bulging into the right aspect of the spinal canal without evidence for any high-grade spinal canal narrowing. Small fat containing periumbilical hernia. CT/Abdomen/Pelvis W IV Cont ONLY IMPRESSION: 1. No filling defects suspicious for pulmonary arterial emboli. 2. Redemonstrated large left upper lobe mass with extension to the left suprahi lar region. Left hilar and mediastinal lymphadenopathy. Progression of numerous bilateral pulmonary satellite nodules . 3. Bulky metastatic left axillary lymphadenopathy. 4. Localized invasion of the left upper lung malignancy to the posterolateral l eft chest wall with erosive changes of multiple adjacent left upper ribs. Additional metastatic lesions involving the midthora cic spine posterior elements at T5-T7 with osseous erosion and slight epidural disease extension. 5. Partial encasement and moderate narrowing of left upper lobe pulmonary arter ial branches. 6. Indeterminate left adrenal gland nodular lesion measuring 2.8 cm. 7. No suspicious enlarged abdominopelvic lymph nodes identified. 8. Advanced atherosclerotic disease with fusiform aneurysms of the infrarenal a bdominal aorta and left common iliac artery. 9. Additional ancillary findings/details, as described above. Reading Location: [id number]
--- NOTE | 2024-09-19 15:45 | RAD_ITS ---
PROCEDURE: FOOT MIN 3 VIEWS 09/19/2024 REASON FOR EXAM: NECROTIC TOE TECHNIQUE: FOOT MIN 3 VIEWS COMPARISON: Left toes of 09/04/2024 RAD/Foot min 3 Views IMPRESSION: Plate and screws transfixing the 2nd and 3rd tarsal-metatarsal joints appear st able. No evidence of metallic fracture or screw loosening. Stable degenerative changes, including of the 1st tarsal-metatarsal joint, and to a lesser extent the toes and 1st metatarsophalangeal joint. No acute fracture or dislocation is evident. Reading Location: [address]
[2024-09-19 15:54] LABS: CRP 110.00 mg/L (0.0-3.0); Magnesium 1.5 mg/dL (1.5-2.2); Troponin T High Sensitivity 49 ng/L (<=22)
[2024-09-19 16:24] LABS: Red Blood Cells-Urine 0-5 SEEN /hpf (0-5); Squamous Epithelial Cells - UA 0-5 SEEN /hpf (0-5)
[2024-09-19 16:38] LABS: Troponin T High Sens 2 HR 42 ng/L (<=22)
--- NOTE | 2024-09-19 16:58 | PCM.HP.STD ---
[facility] - General General Date of Admission: 09/19/24 Date of Service: 09/19/24 Chief Complaint: Hypotension in the morning today. [facility] Narrative REY MEAD, is a 69 M who was recently discharged on 09/11 after septic shock secondary to pneumonia and COPD exam came back with hypotension in the morning. He denies any new symptoms including fever, chills, shortness of breath, chest pain, leg swelling or any focal symptoms of infection. He has left fifth toe dry gangrene for about 2 weeks but does not look infected and he is on antibiotic Keflex 500 mg 4 times daily from last discharge. Therefore my suspicion of sepsis is less. Patient is unclear why his blood pressure was low but he was dizzy and lightheaded therefore came to ED He has history of COPD on 3 L of oxygen, metastatic lung cancer to thoracic spine currently getting radiation with RUL resection in 2017. He states he has been feeling well after discharge except today when he had low blood pressure. [facility] Medical History (Updated 09/19/24 @ 18:[address] Jose Zhang MD) Kidney disease Sleep apnea Alcohol use Excessive bleeding History of echocardiogram History of stress test Cardiology follow-up encounter Chest pain Vitamin D deficiency Left adrenal mass CAD (coronary artery disease) Blind Cancer Depression Anxiety Diabetes Prostate disease DVT (deep venous thrombosis) High cholesterol Easy bruising Umbilical hernia Neuropathy Injury of head and neck Syncope Former smoker On home oxygen therapy CPAP (continuous positive airway pressure) dependence COPD (chronic obstructive pulmonary disease) Shortness of breath on exertion History of edema Hypertension Home Medications ?Medication ?Instructions ?Recorded ?Last Taken ?Type albuterol sulfate 2.5 mg/3 mL 2.5 mg inhalation DAILY 01/08/23 09/03/24 History (0.083 %) solution for nebulization albuterol sulfate 90 mcg/actuation 2 puff inhalation PRN PRN 01/08/23 05/30/24 History aerosol inhaler shortness of breath or wheezing aspirin 81 mg tablet,delayed 81 mg PO DAILY 01/08/23 09/04/24 History release atorvastatin 20 mg tablet 20 mg PO QHS 01/08/23 09/03/24 History dapagliflozin propanediol 5 mg 5 mg PO DAILY 01/08/23 09/03/24 History tablet (Farxiga) fluticasone fur. 100 mcg-umeclid 1 inh inhalation DAILY 01/08/23 09/03/24 History 62.5 mcg-vilant 25 mcg inhalat.powder (Trelegy Ellipta) furosemide 40 mg tablet 40 mg PO DAILY 01/08/23 09/04/24 History paroxetine HCl 10 mg tablet 10 mg PO DAILY 01/08/23 09/04/24 History pregabalin 150 mg capsule 150 mg PO DAILY 01/08/23 09/04/24 History roflumilast 250 mcg tablet 250 mcg PO DAILY 01/08/23 09/04/24 History tamsulosin 0.4 mg capsule 0.4 mg PO Q24H 01/08/23 09/04/24 History metformin 500 mg tablet,extended 1,500 mg PO QHS 03/22/24 09/04/24 History release 24hr (osmotic) gabapentin 300 mg capsule 300 mg PO QHS 05/10/24 09/03/24 History esomeprazole magnesium 40 mg 40 mg PO DAILY 09/04/24 09/03/24 History capsule,delayed release insulin lispro protamine-lispro 15 unit subcut BIDCM 09/04/24 09/04/24 History 100 unit/mL (75-25) subcutaneous pen (Humalog Mix 75-25 KwikPen) metoprolol succinate 25 mg 25 mg PO DAILY 09/04/24 09/04/24 History tablet,extended release 24 hr oxycodone 5 mg tablet 5 - 10 mg PO Q6H PRN PRN pain 09/04/24 Unknown History prednisone 5 mg tablet 15 mg PO DAILY 09/04/24 Unknown History semaglutide 7 mg tablet (Rybelsus) 7 mg PO DAILY 09/04/24 09/04/24 History vitamin B complex (Complex B-100 1 tab PO DAILY 09/04/24 09/04/24 History tablet,extended release) cephalexin 500 mg capsule 500 mg PO 4XD 1 week #28 caps 09/11/24 Unknown Rx lorazepam 1 mg tablet 0.5 mg (1/2 x 1 mg) PO TID PRN 09/11/24 Unknown Rx anxiety #90 tabs potassium chloride 20 mEq 40 meq (2 x 20 mEq) PO BID 7 days 09/11/24 Unknown Rx tablet,extended release(part/cryst) #28 tabs sennosides 8.6 mg-docusate sodium 2 tab PO BID #0 tabs 09/11/24 Unknown Rx 50 mg tablet (Stimulant Laxative Plus) Allergy/AdvReac Type Severity Reaction Status Date / Time No Known Allergies Allergy Verified 07/24/24 10:03 Family History Mother Cancer LUNG Heart disease Father Cancer lung Sister Cancer lung Heart disease Sister Cancer lung Sister Cancer lung Sister Colon cancer Surgical History (Updated 09/19/24 @ 17:22 by Kirstin Hamilton) Hx of CABG History of bronchoscopy Hx of biopsy History of lobectomy of lung Hx of oral surgery Hx of fracture of foot Hx of fracture of leg History of open heart surgery (05/08/15) Social History household members: none housing: other 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 No fever. HEENT: Reports systems reviewed and no addt'l complaints, except as documented Respiratory/Chest: Chronic cough with no acute change in sputum production or severity. No acute shortness of breath or respiratory distress or wheezing. CVS: No chest pain pressure or tightness Gastrointestinal: Denies coffee ground emesis, hematemesis or vomiting Genitourinary: Denies burning urination or new urinary tract symptoms Musculoskeletal: Chronic arthritis. Rest as described in HPI. No acute injury Neurologic: Denies seizure-like symptoms. skin: Left fifth toe gangrene. Had pinky toe redness/infection in the past. Endocrinology: DM type II reports systems reviewed and no addt'l complaints, except as documented Hematologic/Lymphatic: Reports systems reviewed and no addt'l complaints, except as documented Rest 14 ROS are negative except as mentioned in HPI Vital Signs Vital Signs Vital Signs: 09/19/24 13:48 09/19/24 13:48 09/19/24 13:53 Temperature 98.2 F 98.2 F Temperature Source Oral Oral Pulse Rate 85 81 Respiratory Rate 16 16 Respiratory Effort Short of Breath Respiratory Pattern Normal Blood Pressure 103/78 103/78 Blood Pressure Mean 86 86 Pulse Ox 100 100 Oxygen Delivery Method Room Air Nasal Cannula Oxygen Flow Rate (L/min) 3 09/19/24 14:53 09/19/24 16:01 09/19/24 16:10 Temperature 98.5 F 98.2 F Temperature Source Oral Oral Pulse Rate 79 84 80 Respiratory Rate 17 22 H 18 Respiratory Effort Respiratory Pattern Blood Pressure 109/63 127/62 H 127/62 H Blood Pressure Mean 78 83 83 Pulse Ox 100 100 98 Oxygen Delivery Method Room Air Nasal Cannula Nasal Cannula Oxygen Flow Rate (L/min) 2 2 Weight Weight: 168 lb 3.403 oz Body Mass Index (BMI) 24.8 Physical Exam Narrative General: Alert, Oriented x3, Cooperative HEENT: Atraumatic, PERRLA, EOMI, Normocephalic. Oral: Oral mucosa dry no Gingival or Mucosal Lesions/ Ulcerations Neck: Supple, No JVD, Negative Carotid Bruits Chest wall/Lungs: Air entry diminished in bilateral lung bases. Mild bilateral coarse crepitations. Chronic hypoxia on 3 L of oxygen for Cardiovascular: Regular rate and rhythm, Normal S1,S2, No M/G/R Abdomen: Bowel Sounds Present, Soft, Non Tender, Non-Distended : No dysuria. No renal angle tenderness. No suprapubic tenderness. Extremities: No pedal, Capillary Refill Less than 3 Seconds Skin: Left fifth toe dry gangrene. No local area of redness, pain or tenderness suggestive of cellulitis Musculoskeletal: No Tenderness to Palpation of Joints or Extremities. Degenerative arthritis of knee joint Neurological: Cranial nerves II-XII grossly intact, DTR 2+/4. No acute focal neurological deficit. Psych/Mental Status: Flat affect Results Lab / Micro Data 09/19/24 13:58 09/19/24 13:58 Labs: Laboratory Results - last 24 hr 09/19/24 13:58: WBC 11.5 H, RBC 3.01 L, Hgb 8.2 L, Hct 27.4 L, MCV 91.0, MCH 27.2, MCHC 29.9 L, RDW Std Deviation 58.8 H, RDW Coeff of Jaquan 17.5 H, Plt Count 158, MPV 10.6, Immature Gran % (Auto) 1.200 H, Neut % (Auto) 84.9 H, Lymph % (Auto) 8.3 L, [place] % (Auto) 5.3, Eos % (Auto) 0.2, Baso % (Auto) 0.1, Absolute Neuts (auto) 9.8 H, Absolute Lymphs (auto) 0.96, Nucleated RBC % 0, ESR 53 H, Sodium 129 L, Potassium 4.9, Chloride 94 L, Carbon Dioxide 24.4, Anion Gap 11, BUN 12, Creatinine 0.86, Estim Creat Clear Calc 82.21, Est GFR (MDRD) Non-Af 94, BUN/Creatinine Ratio 14.3, Glucose 124 H, Calcium 10.5, Magnesium 1.5, Total Bilirubin 0.49, AST 42 H, ALT 50 H, Alkaline Phosphatase 112, Troponin T High Sens 49 H, C-React Prot Ext Range 110.00 H, Total Protein 6.5, Albumin 3.0 L, Globulin 3.5, Albumin/Globulin Ratio 0.8 L, Lipase 63 09/19/24 14:58: Lactic Acid 2.2 H* 09/19/24 15:00: Urine Color Straw, Urine Clarity Clear, Urine pH 7.0, Ur Specific Colbert 1.005, Urine Protein 15 H, Urine Glucose (UA) 250 H, Urine Ketones Negative, Urine Occult Blood Negative, Urine Nitrite Negative, Urine Bilirubin Negative, Urine Urobilinogen Normal, Ur Leukocyte Esterase Negative, Urine RBC 0-5 SEEN, Urine WBC 0-5 SEEN, Ur Squamous Epith Cells 0-5 SEEN, Urine Bacteria 0 SEEN, Urine Mucus 0 SEEN 09/19/24 15:57: Troponin T Hi Sens 2 Hr 42 H Imaging Radiology Impression Abdomen/Pelvis CT 09/19/24 15:43 IMPRESSION: 1. No filling defects suspicious for pulmonary arterial emboli. 2. Redemonstrated large left upper lobe mass with extension to the left suprahilar region. Left hilar and mediastinal lymphadenopathy. Progression of numerous bilateral pulmonary satellite nodules. 3. Bulky metastatic left axillary lymphadenopathy. 4. Localized invasion of the left upper lung malignancy to the posterolateral left chest wall with erosive changes of multiple adjacent left upper ribs. Additional metastatic lesions involving the midthoracic spine posterior elements at T5-T7 with osseous erosion and slight epidural disease extension. 5. Partial encasement and moderate narrowing of left upper lobe pulmonary arterial branches. 6. Indeterminate left adrenal gland nodular lesion measuring 2.8 cm. 7. No suspicious enlarged abdominopelvic lymph nodes identified. 8. 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 9. Additional ancillary findings/details, as described above. Reading Location: [facility] Chest CTA 09/19/24 15:43 IMPRESSION: 1. No filling defects suspicious for pulmonary arterial emboli. 2. Redemonstrated large left upper lobe mass with extension to the left suprahilar region. Left hilar and mediastinal lymphadenopathy. Progression of numerous bilateral pulmonary satellite nodules. 3. Bulky metastatic left axillary lymphadenopathy. 4. Localized invasion of the left upper lung malignancy to the posterolateral left chest wall with erosive changes of multiple adjacent left upper ribs. Additional metastatic lesions involving the midthoracic spine posterior elements at T5-T7 with osseous erosion and slight epidural disease extension. 5. Partial encasement and moderate narrowing of left upper lobe pulmonary arterial branches. 6. Indeterminate left adrenal gland nodular lesion measuring 2.8 cm. 7. No suspicious enlarged abdominopelvic lymph nodes identified. 8. 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 9. Additional ancillary findings/details, as described above. Reading Location: [facility] Foot X-Ray 09/19/24 15:45 IMPRESSION: Plate and screws transfixing the 2nd and 3rd tarsal-metatarsal joints appear stable. No evidence of metallic fracture or screw loosening. Stable degenerative changes, including of the 1st tarsal-metatarsal joint, and to a lesser extent the toes and 1st metatarsophalangeal joint. No acute fracture or dislocation is evident. Reading Location: [address] Assessment & Plan Assessment/Plan (1) Hypotension: (2) Anemia: PLAN: Plan Patient is a 69-year-old male who came to ED today with dizziness lightheadedness and hypotension. 1. Symptomatic hypotension at home with dizziness/lightheadedness, left fifth toe dry gangrene: Exact etiology unclear possible due to medication:'s BP in ED was 103/78, improved to 127/62 but is still at times 104/56. In ED, patient does not meet criteria for hypotension, SBP less than 90 or MAP less than 65. Patient on furosemide 40 mg daily, metoprolol but not resume other antihypertensive medication. Lactic acid resulted at 2.2 but I think probably due to decreased perfusion/hypotension rather than sepsis. At this point of time I do not think patient has sepsis and is already on antibiotic Keflex 500 mg 4 times daily supposed to end today No focal area of infection except left dry gangrene which does not look infected. Patient does not have any acute symptoms of chest pain or shortness of breath. Patient was just admitted for septic shock secondary to pneumonia and COPD exacerbation and was discharged on oxygen and completed full antibiotic. He had blood culture positive for MSSA and group G Streptococcus. Repeat culture showed no growth for more than 48 hours at the time of discharge. I will change Keflex to IV ceftriaxone. 2. Elevated troponin and lactic acid: Lactic acid elevated 2.2. During previous admission also his lactic acid was elevated 2.9 and repeat was 1.1. His troponins are elevated 49 and 42 but patient does not have any chest pain or acute shortness of breath. I think his elevated troponin is probably due to increased cardiac demand from hypotension. IV fluid ordered. Monitor blood pressure. Hold antihypertensive medications 3. Metastatic lung cancer with recent radiation therapy ? Follows with outpatient oncology and radiation oncology. The patient was recently initiated on radiation therapy for metastases to T6 and T7. It appears he completed 3 of 5 rounds of radiation that were planned for this. Has history of resection of cancer in [place] in 2017 and radiation therapy of cancer in [facility] in 2023. 4. Hyponatremia: Sodium is 129. Patient was discharged on 143. Probably related to furosemide. Hold furosemide. Monitor leg swelling 5. Acute on chronic debility due to left fifth toe gangrene.: Patient has poor social support. During previous admission also his right fifth toe was bruised after mild trauma. Now it has turned into gangrene it is dry. Contract Associate Dr. Parekh is consulted and I talked to him. Consult requested. X-ray of foot in ED shows plates and screws transfixing 2nd and 3rd tarsometatarsal joint appears stable. No evidence of metallic screw or fracture or loosening. No acute fracture or dislocation. PT and OT ordered. Case management consulted 4. Acute on chronic normocytic normochromic anemia: H&H 8.2/27.4%. During previous admission also he had hemoglobin dropped to 6.8. Patient was discharged at hemoglobin 9.4. Patient had EGD on 09/06 and colonoscopy on 09/07/2025 EGD Impressions : - Normal esophagus. - No gross lesions in the entire stomach. - No gross lesions in the entire examined duodenum. - No specimens collected Colonoscopy Impression: - Preparation of the colon was fair. - Stool in the recto-sigmoid colon, in the sigmoid colon, in the transverse colon, in the ascending colon and in the cecum. - One 13 mm polyp in the rectum, removed with a hot snare. Resected and retrieved. - Diverticulosis in the recto-sigmoid colon and in the sigmoid colon. Chronic medical conditions: ? BPH with obstructive symptoms: During previous admission, patient had urinary retention but was relieved with a straight cath. Continue home Flomax and bladder scan monitoring ? History of CAD with CABG, hypertension, hyperlipidemia: Had CABG back in 2016. Continue home statin. Baby aspirin was resumed but hold it if hemoglobin drops further less than 7 g. Holding metoprolol and Lasix. ? Type 2 diabetes mellitus with diabetic neuropathy: Continue Humalog 75-25 mix at 15 units twice daily along with sliding scale insulin with meals, adjust as needed. Continue home gabapentin. ? Anxiety/depression: Continue home paroxetine and Ativan as needed. ? GERD: On PPI DVT prophylaxis, high risk: Lovenox 40 g subcu daily but discontinue if platelet count drops less than 50,000 or hemoglobin less than 8 g% Living will/advanced directive/end of life care: Patient does have living will or advanced directive. His daughter is power of assistant prosecuting attorney for health. After discussion of benefits/risks procedures involved with full code, DNR CC arrest and DNR CC, the patient opted for DNR CC arrest with no intubation Patient doesn't want artificial life support including intubation, tube feed, ventilator and/chest compression, central venous catheter, vasopressor and DC shock if needed Total time spent in [id number] encounter in discussion of advanced directive 17 minutes. Laboratory Results 09/19/24 13:58: WBC 11.5 H, RBC 3.01 L, Hgb 8.2 L, Hct 27.4 L, MCV 91.0, MCH 27.2, MCHC 29.9 L, RDW Std Deviation 58.8 H, RDW Coeff of Jaquan 17.5 H, Plt Count 158, MPV 10.6, Immature Gran % (Auto) 1.200 H, Neut % (Auto) 84.9 H, Lymph % (Auto) 8.3 L, [place] % (Auto) 5.3, Eos % (Auto) 0.2, Baso % (Auto) 0.1, Absolute Neuts (auto) 9.8 H, Absolute Lymphs (auto) 0.96, Nucleated RBC % 0, ESR 53 H, Sodium 129 L, Potassium 4.9, Chloride 94 L, Carbon Dioxide 24.4, Anion Gap 11, BUN 12, Creatinine 0.86, Estim Creat Clear Calc 82.21, Est GFR (MDRD) Non-Af 94, BUN/Creatinine Ratio 14.3, Glucose 124 H, Calcium 10.5, Magnesium 1.5, Total Bilirubin 0.49, AST 42 H, ALT 50 H, Alkaline Phosphatase 112, Troponin T High Sens 49 H, C-React Prot Ext Range 110.00 H, Total Protein 6.5, Albumin 3.0 L, Globulin 3.5, Albumin/Globulin Ratio 0.8 L, Lipase 63 09/19/24 14:58: Lactic Acid 2.2 H* 09/19/24 15:00: Urine Color Straw, Urine Clarity Clear, Urine pH 7.0, Ur Specific Colbert 1.005, Urine Protein 15 H, Urine Glucose (UA) 250 H, Urine Ketones Negative, Urine Occult Blood Negative, Urine Nitrite Negative, Urine Bilirubin Negative, Urine Urobilinogen Normal, Ur Leukocyte Esterase Negative, Urine RBC 0-5 SEEN, Urine WBC 0-5 SEEN, Ur Squamous Epith Cells 0-5 SEEN, Urine Bacteria 0 SEEN, Urine Mucus 0 SEEN 09/19/24 15:57: Troponin T Hi Sens 2 Hr 42 H Clinical Impression(s) from Imaging Studies Abdomen/Pelvis CT 09/19/24 15:43 IMPRESSION: 1. No filling defects suspicious for pulmonary arterial emboli. 2. Redemonstrated large left upper lobe mass with extension to the left suprahilar region. Left hilar and mediastinal lymphadenopathy. Progression of numerous bilateral pulmonary satellite nodules. 3. Bulky metastatic left axillary lymphadenopathy. 4. Localized invasion of the left upper lung malignancy to the posterolateral left chest wall with erosive changes of multiple adjacent left upper ribs. Additional metastatic lesions involving the midthoracic spine posterior elements at T5-T7 with osseous erosion and slight epidural disease extension. 5. Partial encasement and moderate narrowing of left upper lobe pulmonary arterial branches. 6. Indeterminate left adrenal gland nodular lesion measuring 2.8 cm. 7. No suspicious enlarged abdominopelvic lymph nodes identified. 8. 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 9. Additional ancillary findings/details, as described above. Reading Location: [facility] Chest CTA 09/19/24 15:43 IMPRESSION: 1. No filling defects suspicious for pulmonary arterial emboli. 2. Redemonstrated large left upper lobe mass with extension to the left suprahilar region. Left hilar and mediastinal lymphadenopathy. Progression of numerous bilateral pulmonary satellite nodules. 3. Bulky metastatic left axillary lymphadenopathy. 4. Localized invasion of the left upper lung malignancy to the posterolateral left chest wall with erosive changes of multiple adjacent left upper ribs. Additional metastatic lesions involving the midthoracic spine posterior elements at T5-T7 with osseous erosion and slight epidural disease extension. 5. Partial encasement and moderate narrowing of left upper lobe pulmonary arterial branches. 6. Indeterminate left adrenal gland nodular lesion measuring 2.8 cm. 7. No suspicious enlarged abdominopelvic lymph nodes identified. 8. 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 9. Additional ancillary findings/details, as described above. Reading Location: [facility] Foot X-Ray 09/19/24 15:45 IMPRESSION: Plate and screws transfixing the 2nd and 3rd tarsal-metatarsal joints appear stable. No evidence of metallic fracture or screw loosening. Stable degenerative changes, including of the 1st tarsal-metatarsal joint, and to a lesser extent the toes and 1st metatarsophalangeal joint. No acute fracture or dislocation is evident. Reading Location: [address] Charges/Coding Visit Charges Inpatient E&M: 89240 Init Hosp L3 Procedures Hospitalists Procedures: 81341 Advncd Care Plan 30 Min
[2024-09-19 18:38] LABS: Magnesium 1.6 mg/dL (1.5-2.2)
[2024-09-19] MEDS: 0.9% Normal Saline (1000mL) 1,000 ML 100 ML IV (18:53)
[2024-09-19] MEDS: 0.9% Saline Lock 10 ML Syringe IV (18:58)
[2024-09-19 19:09] LABS: Reflex Lactate? Y
[2024-09-19] MEDS: Budesonide Respules 0.5 MG/2 ML AMPUL.NEB. INHALATION (20:33)
[2024-09-19 20:39] LABS: Hematocrit 26.7 % (40-54); Hemoglobin 8.1 g/dL (13.0-16.5)
[2024-09-19] MEDS: Senna/Docusate Sodium 1 Tablet 2 TABLET PO (21:27)
[2024-09-19 22:18] LABS: Troponin T High Sens 4 HR 51 ng/L (<=22)
[2024-09-20] VITALS (7 sets, daily range): BP systolic 99–112; BP diastolic 53–75; PULSE 88–113; RESP 16–18; TEMP 36.2–36.6; O2SAT 96–100; BMI 24.2
[2024-09-20] MEDS: 0.9% Normal Saline (1000mL) 1,000 ML 100 ML IV (05:06)
[2024-09-20 06:11] LABS: Hematocrit 24.0 % (40-54); Hemoglobin 7.2 g/dL (13.0-16.5); Immature Granulocytes Count 0.060 X10^3/uL (0.0-0.0); Mean Corp Hgb Conc 30.0 g/dL (32-36); Mean Corpuscular Volume 91.6 fL (80-94); Mean Platelet Vol. 10.5 fl (6.2-12.0); NRBC Flagged by Analyzer 0 % (0-5); Platelet Count 134 K/mm3 (150-450); RBC Distribution Width CV 17.6 % (11.6-14.6); RBC Distribution Width SD 59.3 fl (35.1-43.9); Red Blood Count 2.62 M/mm3 (4.6-6.2); White Blood Count 7.9 K/mm3 (4.4-11.0)
[2024-09-20 06:36] LABS: Anion Gap 9 (5-15); BUN 12 mg/dL (4-19); BUN/Creat Ratio 12.9 RATIO (10-20); Calcium,Total 10.0 mg/dL (7.6-11.0); Carbon Dioxide 26.0 mmol/L (21.0-32.0); Chloride 99 mmol/L (98-108); Estimated Creatinine Clearance 79.44 ml/min (50-250); Glucose 117 mg/dL (70-99); Potassium 4.3 mmol/L (3.3-5.1)
--- NOTE | 2024-09-20 07:18 | ART_ITS ---
Reason For Study Reason For Study: PVD Procedure A bilateral lower extremity continuous wave Doppler with analog waveform analysis,segmental pressures,and ankle brachial indexes without exercise. Left Segmental Pressures Unable to obtain LT BP due to IV placement. Left high thigh = 43mmHg. Left low thigh = 43mmHg. Left calf = 44mmHg. Left posterior tibial artery = 19mmHg. Left dorsalis pedis artery = 32mmHg. The left posterior tibial artery waveforms are monophasic. The left dorsalis pedis waveforms are monophasic. Right Segmental Pressures Right brachial= 98mmHg. Right calf = 148mmHg. Right posterior tibial artery = 71mmHg. Right dorsalis pedis artery = 55mmHg. The right posterior tibial artery waveforms are monophasic. The right dorsalis pedis waveforms are monophasic. Indices The right ankle brachial index by the posterior tibial artery is 0.72. The right ankle brachial index by the dorsalis pedis is 0.56. Unable to obtain digit pressure. The left ankle brachial index by the posterior tibial artery is 0.19. The left ankle brachial index by the dorsalis pedis is 0.33. Unable to obtain digit pressure. VL/Lower Ext Art Exam w/o Exercis Interpretation Summary Right ELIZABETH 0.72, moderate arterial insufficiency. Doppler/PVR waveforms and segm ental pressures reveal infrapopliteal disease. Left ELIZABETH 0.33, severe arterial insufficiency. Doppler/PVR waveforms and segment al pressures reveal aorto-iliac disease. Ordering Physician: Humberto Thayer Referring Physician: Desiree Saleh Performed By: Jagjit Car RVT
[2024-09-20] MEDS: Budesonide Respules 0.5 MG/2 ML AMPUL.NEB. INHALATION ×2 (07:19→19:42)
--- NOTE | 2024-09-20 07:21 | PCM.CONS.GEN ---
Assessment & Plan Assessment/Plan (1) Hypotension: (2) Pneumonia: (3) PVD (peripheral vascular disease): (4) Gangrene of left foot: PLAN: Today explained to the patient that F will get vascular studies and then plan for amputation it is stable dry gangrene but he could get him very sick if this is left in place if his PVRs look good we will plan for surgery tomorrow. He does understand the risks complications benefits of the surgical procedure PVRs are abnormal he will need vascular workup. PLAN: Plan Plan to keep patient n.p.o. after midnight consent will be signed plan for then surgery once I get scheduled hopefully sometime around mid afternoon. HPI Consult Data Date of Consult: 09/20/24 HPI Narrative Reason for Consultation: Gangrene left fifth digit. Recent injury. HPI Narrative: REY MEAD, is a 69 M who was recently discharged on 09/11 after septic shock secondary to pneumonia and COPD exam came back with hypotension in the morning. He denies any new symptoms including fever, chills, shortness of breath, chest pain, leg swelling or any focal symptoms of infection. He has left fifth toe dry gangrene for about 2 weeks but does not look infected It is dry gangrene at this point but it does have odor at this point the patient will probably need to have this removed. It is not going to be any better for him to have this removed I do not think autoamputation is a good idea. He will need to get PVR studies.. [facility] Medical History (Updated 09/20/24 @ 07:[address] Humberto Thayer MD) Kidney disease Sleep apnea Alcohol use Excessive bleeding History of echocardiogram History of stress test Cardiology follow-up encounter Chest pain Vitamin D deficiency Left adrenal mass CAD (coronary artery disease) Blind Cancer Depression Anxiety Diabetes Prostate disease DVT (deep venous thrombosis) High cholesterol Easy bruising Umbilical hernia Neuropathy Injury of head and neck Syncope Former smoker On home oxygen therapy CPAP (continuous positive airway pressure) dependence COPD (chronic obstructive pulmonary disease) Shortness of breath on exertion History of edema Hypertension Home Medications ?Medication ?Instructions ?Recorded ?Last Taken ?Type albuterol sulfate 2.5 mg/3 mL 2.5 mg inhalation DAILY shortness 01/08/23 09/03/24 History (0.083 %) solution for nebulization of breath albuterol sulfate 90 mcg/actuation 2 puff inhalation PRN PRN 01/08/23 05/30/24 History aerosol inhaler shortness of breath or wheezing aspirin 81 mg tablet,delayed 81 mg PO DAILY general health 01/08/23 09/04/24 History release atorvastatin 20 mg tablet 20 mg PO QHS hyperlipidema 01/08/23 09/03/24 History dapagliflozin propanediol 5 mg 5 mg PO DAILY daily 01/08/23 09/03/24 History tablet (Farxiga) fluticasone fur. 100 mcg-umeclid 1 inh inhalation DAILY daily 01/08/23 09/03/24 History 62.5 mcg-vilant 25 mcg inhalat.powder (Trelegy Ellipta) furosemide 40 mg tablet 40 mg PO DAILY edema 01/08/23 09/04/24 History paroxetine HCl 10 mg tablet 10 mg PO DAILY daily 01/08/23 09/04/24 History pregabalin 150 mg capsule 150 mg PO DAILY daily 01/08/23 09/04/24 History roflumilast 250 mcg tablet 250 mcg PO DAILY guru 01/08/23 09/04/24 History tamsulosin 0.4 mg capsule 0.4 mg PO Q24H BPH 01/08/23 09/04/24 History metformin 500 mg tablet,extended 1,500 mg PO QHS D<M 03/22/24 09/04/24 History release 24hr (osmotic) gabapentin 300 mg capsule 300 mg PO QHS neuropathy 05/10/24 09/03/24 History esomeprazole magnesium 40 mg 40 mg PO DAILY daily 09/04/24 09/03/24 History capsule,delayed release insulin lispro protamine-lispro 15 unit subcut BIDCM diabetes 09/04/24 09/04/24 History 100 unit/mL (75-25) subcutaneous pen (Humalog Mix 75-25 KwikPen) metoprolol succinate 25 mg 25 mg PO DAILY hypertension 09/04/24 09/04/24 History tablet,extended release 24 hr oxycodone 5 mg tablet 5 - 10 mg PO Q6H PRN PRN pain 09/04/24 Unknown History prednisone 5 mg tablet 15 mg PO DAILY guru 09/04/24 Unknown History semaglutide 7 mg tablet (Rybelsus) 7 mg PO DAILY daily 09/04/24 09/04/24 History vitamin B complex (Complex B-100 1 tab PO DAILY daily 09/04/24 09/04/24 History tablet,extended release) cephalexin 500 mg capsule 500 mg PO 4XD 1 week #28 caps 09/11/24 Unknown Rx lorazepam 1 mg tablet 0.5 mg (1/2 x 1 mg) PO TID PRN 09/11/24 Unknown Rx anxiety #90 tabs potassium chloride 20 mEq 40 meq (2 x 20 mEq) PO BID 09/11/24 Unknown Rx tablet,extended release(part/cryst) hypokalemia 7 days #28 tabs sennosides 8.6 mg-docusate sodium 2 tab PO BID daily #0 tabs 09/11/24 Unknown Rx 50 mg tablet (Stimulant Laxative Plus) Allergy/AdvReac Type Severity Reaction Status Date / Time No Known Allergies Allergy Verified 07/24/24 10:03 Family History Mother Cancer LUNG Heart disease Father Cancer lung Sister Cancer lung Heart disease Sister Cancer lung Sister Cancer lung Sister Colon cancer Surgical History (Updated 09/19/24 @ 17:22 by Kirstin Hamilton) Hx of CABG History of bronchoscopy Hx of biopsy History of lobectomy of lung Hx of oral surgery Hx of fracture of foot Hx of fracture of leg History of open heart surgery (05/08/15) Social History household members: none housing: other 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 Smoking Status: Former smoker quit date: 03/15/15 pack-years: 120 alcohol intake: current alcohol intake frequency: a few times a month Alcohol type: beer substance use type: does not use what type of physical activity do you participate in: none seatbelt use: always do you feel safe at home: Yes Physical Exam Const alert, oriented x3, no apparent distress, average body habitus, no limitations, healthy appearing and well nourished HEENT normocephalic, head/scalp atraumatic, hearing grossly normal bilaterally, external ears normal, EAC's normal, TM's normal bilaterally, external nose normal, nasal mucous membranes and turbinates normal, moist oral mucous membranes, oropharynx normal, dentition normal and gingiva normal Eyes PERRL, EOMs intact bilaterally, conjunctivae normal, no scleral icterus, no papilledema, normal visual haque by confrontation and fundi normal bilaterally Neck full ROM, nuchal rigidity, no lymphadenopathy, supple, no meningeal signs, no JVD, thyroid normal, nodes and no carotid bruits Lymph Lymphatic: no lymphadenopathy noted, no lymphedema noted, lymphedema, lymphadenopathy and other Chest inspection of chest normal, palpation of chest normal, inspection of breasts normal and palpation of breasts normal Resp normal respiratory effort, normal air movement, no retractions, no use of accessory muscles, clear to auscultation bilaterally and percussion normal Resp Narrative: Patient with nasal cannula Cardio regular rate, regular rhythm, S1 normal heart sound, S2 normal heart sound, no murmurs, no rub, no gallops, no clicks, no JVD, peripheral pulses 2+ throughout and diaphoretic no CVA tenderness, external exam normal, testes normal, scrotum normal, no scrotal swelling and no hernias present Back/Spine no CVA tenderness, normal ROM, normal to inspection, thoracic and lumbar spine normal to inspection, no thoracic nor lumbar tenderness, thoraco-lumbar ROM normal and straight leg raise negative bilaterally Extremity no pedal edema General Extremity: pulses abnormal Peripheral Pulses: Yes dorsalis pedis pulses present left Skin Skin Narrative: Patient with gangrene left fifth digit noted to encompass the entire digit up to about the metatarsal phalangeal joint level there is demarcation noted. Neuro oriented x3, CN's II-XII intact bilaterally, moves all extremities, no focal motor deficits, no sensory deficits noted, deep tendon reflexes 2+ bilaterally and gait normal Lab / Micro Data 09/20/24 05:50 09/20/24 05:50 Labs: Laboratory Results - last 24 hr 09/19/24 13:58: WBC 11.5 H, RBC 3.01 L, Hgb 8.2 L, Hct 27.4 L, MCV 91.0, MCH 27.2, MCHC 29.9 L, RDW Std Deviation 58.8 H, RDW Coeff of Jaquan 17.5 H, Plt Count 158, MPV 10.6, Immature Gran % (Auto) 1.200 H, Neut % (Auto) 84.9 H, Lymph % (Auto) 8.3 L, [place] % (Auto) 5.3, Eos % (Auto) 0.2, Baso % (Auto) 0.1, Absolute Neuts (auto) 9.8 H, Absolute Lymphs (auto) 0.96, Nucleated RBC % 0, ESR 53 H, Sodium 129 L, Potassium 4.9, Chloride 94 L, Carbon Dioxide 24.4, Anion Gap 11, BUN 12, Creatinine 0.86, Estim Creat Clear Calc 82.21, Est GFR (MDRD) Non-Af 94, BUN/Creatinine Ratio 14.3, Glucose 124 H, Calcium 10.5, Magnesium 1.5, Total Bilirubin 0.49, AST 42 H, ALT 50 H, Alkaline Phosphatase 112, Troponin T High Sens 49 H, C-React Prot Ext Range 110.00 H, Total Protein 6.5, Albumin 3.0 L, Globulin 3.5, Albumin/Globulin Ratio 0.8 L, Lipase 63 09/19/24 14:58: Lactic Acid 2.2 H* 09/19/24 15:00: Urine Color Straw, Urine Clarity Clear, Urine pH 7.0, Ur Specific [place] 1.005, Urine Protein 15 H, Urine Glucose (UA) 250 H, Urine Ketones Negative, Urine Occult Blood Negative, Urine Nitrite Negative, Urine Bilirubin Negative, Urine Urobilinogen Normal, Ur Leukocyte Esterase Negative, Urine RBC 0-5 SEEN, Urine WBC 0-5 SEEN, Ur Squamous Epith Cells 0-5 SEEN, Urine Bacteria 0 SEEN, Urine Mucus 0 SEEN 09/19/24 15:57: Magnesium 1.6, Troponin T Hi Sens 2 Hr 42 H 09/19/24 18:52: POC Glucose 97 09/19/24 19:26: Hgb 8.1 L, Hct 26.7 L, Lactic Acid 1.7 09/19/24 21:16: Troponin T Hi Sens 4Hr 51 H 09/20/24 05:50: WBC 7.9, RBC 2.62 L, Hgb 7.2 L, Hct 24.0 L, MCV 91.6, MCH 27.5, MCHC 30.0 L, RDW Std Deviation 59.3 H, RDW Coeff of Jaquan 17.6 H, Plt Count 134 L, MPV 10.5, Immature Gran % (Auto) 0.800, Neut % (Auto) 85.1 H, Lymph % (Auto) 8.7 L, [place] % (Auto) 5.3, Eos % (Auto) 0.1, Baso % (Auto) 0.0, Absolute Neuts (auto) 6.7, Absolute Lymphs (auto) 0.68 L, Nucleated RBC % 0, Sodium 134, Potassium 4.3, Chloride 99, Carbon Dioxide 26.0, Anion Gap 9, BUN 12, Creatinine 0.89, Estim Creat Clear Calc 79.44, Est GFR (MDRD) Non-Af 93, BUN/Creatinine Ratio 12.9, Glucose 117 H, Calcium 10.0, Phosphorus 3.2 Imaging Radiology Impression Abdomen/Pelvis CT 09/19/24 15:43 IMPRESSION: 1. No filling defects suspicious for pulmonary arterial emboli. 2. Redemonstrated large left upper lobe mass with extension to the left suprahilar region. Left hilar and mediastinal lymphadenopathy. Progression of numerous bilateral pulmonary satellite nodules. 3. Bulky metastatic left axillary lymphadenopathy. 4. Localized invasion of the left upper lung malignancy to the posterolateral left chest wall with erosive changes of multiple adjacent left upper ribs. Additional metastatic lesions involving the midthoracic spine posterior elements at T5-T7 with osseous erosion and slight epidural disease extension. 5. Partial encasement and moderate narrowing of left upper lobe pulmonary arterial branches. 6. Indeterminate left adrenal gland nodular lesion measuring 2.8 cm. 7. No suspicious enlarged abdominopelvic lymph nodes identified. 8. 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 9. Additional ancillary findings/details, as described above. Reading Location: [id number] Chest CTA 09/19/24 15:43 IMPRESSION: 1. No filling defects suspicious for pulmonary arterial emboli. 2. Redemonstrated large left upper lobe mass with extension to the left suprahilar region. Left hilar and mediastinal lymphadenopathy. Progression of numerous bilateral pulmonary satellite nodules. 3. Bulky metastatic left axillary lymphadenopathy. 4. Localized invasion of the left upper lung malignancy to the posterolateral left chest wall with erosive changes of multiple adjacent left upper ribs. Additional metastatic lesions involving the midthoracic spine posterior elements at T5-T7 with osseous erosion and slight epidural disease extension. 5. Partial encasement and moderate narrowing of left upper lobe pulmonary arterial branches. 6. Indeterminate left adrenal gland nodular lesion measuring 2.8 cm. 7. No suspicious enlarged abdominopelvic lymph nodes identified. 8. 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 9. Additional ancillary findings/details, as described above. Reading Location: [facility] Foot X-Ray 09/19/24 15:45 IMPRESSION: Plate and screws transfixing the 2nd and 3rd tarsal-metatarsal joints appear stable. No evidence of metallic fracture or screw loosening. Stable degenerative changes, including of the 1st tarsal-metatarsal joint, and to a lesser extent the toes and 1st metatarsophalangeal joint. No acute fracture or dislocation is evident. Reading Location: [id number]
--- NOTE | 2024-09-20 08:12 | PN.HOSP_ITS ---
Reason for Visit Reason for Visit: Diagnoses Anemia, unspecified (09/19/24) Peripheral vascular disease, unspecified (09/19/24) Hypotension, unspecified (09/19/24) Gangrene, not elsewhere classified (09/19/24) Pneumonia, unspecified organism (09/19/24) Subjective Subjective Feeling well. Objective Data Objective Data Vital Signs: Vital Signs Temp Pulse Resp BP Pulse Ox O2 Del Method O2 Flow Rate 36.4 C L 90 16 99/55 L 98 Nasal Cannula 3 09/20/24 02:57 09/20/24 07:18 09/20/24 07:18 09/20/24 02:57 09/20/24 07:18 09/20/24 07:18 09/20/24 07:18 Oxygen Flow Rate (L/min) 3 Oxygen Delivery Method Nasal Cannula Weight: 74.3 kg Body Mass Index (BMI) 24.2 Intake & Output: Intake and Output for Last 24 Hours 09/18/24 09/19/24 09/20/24 23:59 23:59 23:59 Intake Total 1050 / 1050 1000 / 1000 Output Total 2100 / 2100 100 / 100 Balance -1050 / -1050 900 / 900 Lab / Micro Data 09/20/24 05:50 09/20/24 05:50 Labs: Laboratory Results - last 24 hr 09/19/24 13:58: WBC 11.5 H, RBC 3.01 L, Hgb 8.2 L, Hct 27.4 L, MCV 91.0, MCH 27.2, MCHC 29.9 L, RDW Std Deviation 58.8 H, RDW Coeff of Jaquan 17.5 H, Plt Count 158, MPV 10.6, Immature Gran % (Auto) 1.200 H, Neut % (Auto) 84.9 H, Lymph % (Auto) 8.3 L, [place] % (Auto) 5.3, Eos % (Auto) 0.2, Baso % (Auto) 0.1, Absolute Neuts (auto) 9.8 H, Absolute Lymphs (auto) 0.96, Nucleated RBC % 0, ESR 53 H, S odium 129 L, Potassium 4.9, Chloride 94 L, Carbon Dioxide 24.4, Anion Gap 11, BUN 12, Creatinine 0.86, Estim Creat Clear Calc 82.21, Est GFR (MDRD) Non-Af 94, BUN/Creatinine Ratio 14.3, Glucose 124 H, Calcium 10.5, Magnesium 1.5, Total Bilirubin 0.49, AST 42 H, ALT 50 H, Alkaline Phosphatase 112, Troponin T High Sens 49 H, C-React Prot Ext Range 110.00 H, Total Protein 6.5, Albumin 3.0 L, Globulin 3.5, Albumin/Globulin Ratio 0.8 L, Lipase 63 09/19/24 14:58: Lactic Acid 2.2 H* 09/19/24 15:00: Urine Color Straw, Urine Clarity Clear, Urine pH 7.0, Ur Specific [place] 1.005, Urine Protein 15 H, Urine Glucose (UA) 250 H, Urine Ketones Negative, Urine Occult Blood Negative, Urine Nitrite Negative, Urine Bilirubin Negative, Urine Urobilinogen Normal, Ur Leukocyte Esterase Negative, Urine RBC 0-5 SEEN, Urine WBC 0-5 SEEN, Ur Squamous Epith Cells 0-5 SEEN, Urine Bacteria 0 SEEN, Urine Mucus 0 SEEN 09/19/24 15:57: Magnesium 1.6, Troponin T Hi Sens 2 Hr 42 H 09/19/24 18:52: POC Glucose 97 09/19/24 19:26: Hgb 8.1 L, Hct 26.7 L, Lactic Acid 1.7 09/19/24 21:16: Troponin T Hi Sens 4Hr 51 H 09/20/24 05:50: WBC 7.9, RBC 2.62 L, Hgb 7.2 L, Hct 24.0 L, MCV 91.6, MCH 27.5, MCHC 30.0 L, RDW Std Deviation 59.3 H, RDW Coeff of Jaquan 17.6 H, Plt Count 134 L, MPV 10.5, Immature Gran % (Auto) 0.800, Neut % (Auto) 85.1 H, Lymph % (Auto) 8.7 L, [place] % (Auto) 5.3, Eos % (Auto) 0.1, Baso % (Auto) 0.0, Absolute Neuts (auto) 6.7, Absolute Lymphs (auto) 0.68 L, Nucleated RBC % 0, Sodium 134, Potassium 4.3, Chloride 99, Carbon Dioxide 26.0, Anion Gap 9, BUN 12, Creatinine 0.89, Estim Creat Clear Calc 79.44, Est GFR (MDRD) Non-Af 93, BUN/Creatinine Ratio 12.9, Glucose 117 H, Calcium 10.0, Phosphorus 3.2 Radiography Diagnostic Testing: Radiology Impression Abdomen/Pelvis CT 09/19/24 15:43 IMPRESSION: 1. No filling defects suspicious for pulmonary arterial emboli. 2. Redemonstrated large left upper lobe mass with extension to the left suprahilar region. Left hilar and mediastinal lymphadenopathy. Progression of numerous bilateral pulmonary satellite nodules. 3. Bulky metastatic left axillary lymphadenopathy. 4. Localized invasion of the left upper lung malignancy to the posterolateral left chest wall with erosive changes of multiple adjacent left upper ribs. Additional metastatic lesions involving the midthoracic spine posterior elements at T5-T7 with osseous erosion and slight epidural disease extension. 5. Partial encasement and moderate narrowing of left upper lobe pulmonary arterial branches. 6. Indeterminate left adrenal gland nodular lesion measuring 2.8 cm. 7. No suspicious enlarged abdominopelvic lymph nodes identified. 8. 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 9. Additional ancillary findings/details, as described above. Reading Location: [facility] Chest CTA 09/19/24 15:43 IMPRESSION: 1. No filling defects suspicious for pulmonary arterial emboli. 2. Redemonstrated large left upper lobe mass with extension to the left suprahilar region. Left hilar and mediastinal lymphadenopathy. Progression of numerous bilateral pulmonary satellite nodules. 3. Bulky metastatic left axillary lymphadenopathy. 4. Localized invasion of the left upper lung malignancy to the posterolateral left chest wall with erosive changes of multiple adjacent left upper ribs. Additional metastatic lesions involving the midthoracic spine posterior elements at T5-T7 with osseous erosion and slight epidural disease extension. 5. Partial encasement and moderate narrowing of left upper lobe pulmonary arterial branches. 6. Indeterminate left adrenal gland nodular lesion measuring 2.8 cm. 7. No suspicious enlarged abdominopelvic lymph nodes identified. 8. 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 9. Additional ancillary findings/details, as described above. Reading Location: [facility] Foot X-Ray 09/19/24 15:45 IMPRESSION: Plate and screws transfixing the 2nd and 3rd tarsal-metatarsal joints appear stable. No evidence of metallic fracture or screw loosening. Stable degenerative changes, including of the 1st tarsal-metatarsal joint, and to a lesser extent the toes and 1st metatarsophalangeal joint. No acute fracture or dislocation is evident. Reading Location: [address] Physical Exam Const alert and no apparent distress Resp normal respiratory effort, no retractions, no use of accessory muscles and clear to auscultation bilaterally Cardio regular rate, regular rhythm, S1 normal heart sound and S2 normal heart sound GI normal to inspection, nondistended, normoactive bowel sounds, soft to palpation, non-tender and non-distended Extremity Extremity Narrative: dry gangrene of left 5th toe. Assessment & Plan Assessment/Plan (1) Hypotension: PLAN: resolved by the time he arrived here. metoprolol succinate and furosemide held. (2) Elevated troponin level not due to acute coronary syndrome: PLAN: likely demand ischemia from hypotension. echo on 09/07: EF 60%, trivial MR. (troponins not ordered last admission) no additional work up at this time. (3) Gangrene of left foot: PLAN: seen by podiatry ABIs 0.33 on left. tentative plan for surgery on 09/21 PLAN: Plan Chronic conditions: * metastatic lung cancer. spinal mets. Follow up with med onc and rad onc as outpt. VTE prophylaxis: LMWH. Charges/Coding Visit Charges Inpatient E&M: 82729 Subs Hosp L2
[2024-09-20] MEDS: Aspirin E.C. 81 MG Tablet PO (08:54)
[2024-09-20] MEDS: Insulin Human 75/25 Kwickpen 15 UNIT SC ×2 (08:54→17:27)
--- NOTE | 2024-09-20 14:40 | CASEMGMT ---
VIPUL PEREA chart review: Patient was admitted 09/04-09/11/24 for weakness, anemia, pneumonia, septic shock. See assessment from 09/04/24. Patient was discharged to home with increase in [facility] oxygen, [facility], and follow-up plans in place. Patient returned to [facility] ED on 09/19/24 for low BP and weakness. Patient was admitted for hyponatremia, Dehydration, and dry gangrene to left 5th toe. Podiatry consulted, patient schedule for 5th toe amputation on 09/21/24. VIPUL PEREA in to discuss readmission and discharge planning. Patient states he was taking medications as prescribed and wearing oxygen as ordered. VIPUL PEREA received call from [facility] stating patient was weak at home and recommending SNF at discharge. Patient states he does feel weak at home but prefers to go home at discharge with resumption of HHC. RN BRIT asked patient to consider SNF based on how patient does with therapy after surgery and what his medical needs maybe after surgery including wound care and possible IV ATBs. Patient states he will think about SNF at discharge. Patient returned to [facility] prior to PCP appt scheduled for tomorrow. Patient asked if RN CM could cancel appt. Patient denies further needs at this time. VIPUL CM called and left message with PCP office to cancel appt and will reschedule closure to discharge. CM to follow up with patient after surgery and therapy to review needs at discharge.
--- NOTE | 2024-09-20 15:15 | CHAPLAIN ---
Type of Pastoral Visit _x__ Initial Visit ___ Follow-up Visit ___ On-call Visit ___ General Patient Visit ___ Spiritual Assessment ___ Family Conference ___ Bereavement ___ Rapid Response ___ Code Blue ___ Other (describe below) Pastoral Care Referral From _x__ Patient ___ Family ___ Nurse ___ Physician ___ Proof Sorter ___ Credit Report Checker ___ Other (describe below) Sacrament/Intervention _x__ Active listening ___ Anointing ___ Yazdanism ___ Bereavement ___ Communion _x__ Kennedi exploration ___ _x__ Life review _x__ Prayer ___ Reconciliation ___ Sacrament of Sick _x__ Supportive presence ___ Wedding ___ Other (describe below) Pastoral Comments patient gives his report on health which includes need for toe removal and cancer treatments; pt has concern for a sister that has cancer as well; patient has lost parents and four siblings to cancer and he refers to these losses; pt also acknowledges that he has great support from his community in the [facility] where others pitch in to help him; pt speaks of his kennedi in God and welcomes presence and 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
[2024-09-20] MEDS: Senna/Docusate Sodium 1 Tablet 2 TABLET PO (21:29)
[2024-09-21 06:00] VITALS: BMI 24.3
[2024-09-21 06:07] VITALS: BP 104/58; PULSE 114; RESP 18; TEMP 36.3; O2SAT 100
[2024-09-21 06:19] LABS: Hematocrit 24.2 % (40-54); Hemoglobin 7.3 g/dL (13.0-16.5); Immature Granulocytes Count 0.060 X10^3/uL (0.0-0.0); Mean Corp Hgb Conc 30.2 g/dL (32-36); Mean Corpuscular Volume 92.4 fL (80-94); Mean Platelet Vol. 11.0 fl (6.2-12.0); NRBC Flagged by Analyzer 0 % (0-5); POSITIVE DIFFERENTIAL YES; Platelet Count 138 K/mm3 (150-450); RBC Distribution Width CV 17.9 % (11.6-14.6); RBC Distribution Width SD 60.6 fl (35.1-43.9); Red Blood Count 2.62 M/mm3 (4.6-6.2); White Blood Count 7.6 K/mm3 (4.4-11.0)
[2024-09-21 06:25] LABS: Prothrombin Time (Protime)PT. 13.7 SECONDS (11.7-14.9)
[2024-09-21 06:27] LABS: Partial Thromboplast Time 43.3 Seconds (24.1-36.2)
[2024-09-21] MEDS: Budesonide Respules 0.5 MG/2 ML AMPUL.NEB. INHALATION (06:30)
[2024-09-21 06:31] VITALS: PULSE 108; RESP 20; O2SAT 94
[2024-09-21 06:51] LABS: AST(SGOT) 29 U/L (<=37); Alanine Aminotransfer ALT/SGPT 35 U/L (<=46); Anion Gap 9 (5-15); BUN 10 mg/dL (4-19); BUN/Creat Ratio 10.9 RATIO (10-20); Calcium,Total 10.3 mg/dL (7.6-11.0); Carbon Dioxide 26.8 mmol/L (21.0-32.0); Chloride 100 mmol/L (98-108); Estimated Creatinine Clearance 78.56 ml/min (50-250); Glucose 140 mg/dL (70-99); Potassium 4.1 mmol/L (3.3-5.1)
--- NOTE | 2024-09-21 08:28 | PN.HOSP_ITS ---
Reason for Visit Reason for Visit: Diagnoses Anemia, unspecified (09/19/24) Peripheral vascular disease, unspecified (09/19/24) Hypotension, unspecified (09/19/24) Gangrene, not elsewhere classified (09/19/24) Pneumonia, unspecified organism (09/19/24) Other specified abnormal findings of blood chemistry (09/19/24) Subjective Subjective No new events. Disappointed that t he did not have surgery today. Objective Data Objective Data Vital Signs: Vital Signs Temp Pulse Resp BP Pulse Ox O2 Del Method O2 Flow Rate 36.3 C L 108 H 20 H 104/58 L 94 Nasal Cannula 3 09/21/24 06:07 09/21/24 06:31 09/21/24 06:31 09/21/24 06:07 09/21/24 06:31 09/21/24 06:31 09/21/24 06:31 Oxygen Flow Rate (L/min) 3 Oxygen Delivery Method Nasal Cannula Weight: 74.7 kg Body Mass Index (BMI) 24.3 Intake & Output: Intake and Output for Last 24 Hours 09/19/24 09/20/24 09/21/24 23:59 23:59 23:59 Intake Total 1050 / 1050 2550 / 2550 Output Total 2100 / 2100 1200 / 1200 700 / 700 Balance -1050 / -1050 1350 / 1350 -700 / -700 Lab / Micro Data 09/21/24 05:06 09/21/24 05:06 Labs: Laboratory Results - last 24 hr 09/20/24 12:15: POC Glucose 198 H 09/20/24 17:27: POC Glucose 198 H 09/21/24 05:06: WBC 7.6, RBC 2.62 L, Hgb 7.3 L, Hct 24.2 L, MCV 92.4, MCH 27.9, MCHC 30.2 L, RDW Std Deviation 60.6 H, RDW Coeff of Jaquan 17.9 H, Plt Count 138 L, MPV 11.0, Immature Gran % (Auto) 0.800, Neut % (Auto) 85.9 H, Lymph % (Auto) 7.0 L, [place] % (Auto) 5.7, Eos % (Auto) 0.3, Baso % (Auto) 0.3, Absolute Neuts (auto) 6.5, Absolute Lymphs (auto) 0.53 L, Nucleated RBC % 0, PT 13.7, INR 1.0, APTT 43.3 H, Sodium 136, Potassium 4.1, Chloride 100, Carbon Dioxide 26.8, Anion Gap 9, BUN 10, Creatinine 0.90, Estim Creat Clear Calc 78.56, Est GFR (MDRD) Non-Af 93, BUN/Creatinine Ratio 10.9, Glucose 140 H, Calcium 10.3, AST 29, ALT 35 Micro: Microbiology 09/19/24 15:57 Blood Culture (Wb) - Right Forearm Blood Culture - Preliminary No growth in 48 hours. 09/19/24 14:58 Blood Culture (Wb) - Anticubital Left Blood Culture - Preliminary No growth in 48 hours. Radiography Diagnostic Testing: Radiology Impression Extremity Arterial Study 09/20/24 07:18 Interpretation Summary Right ELIZABETH 0.72, moderate arterial insufficiency. Doppler/PVR waveforms and segmental pressures reveal infrapopliteal disease. Left ELIZABETH 0.33, severe arterial insufficiency. Doppler/PVR waveforms and segmental pressures reveal aorto-iliac disease. Ordering Physician: Humberto Thayer Referring Physician: Desiree Saleh Performed By: Jagjit Car, RVT Physical Exam Const alert and no apparent distress HEENT head/scalp atraumatic and moist oral mucous membranes Resp normal respiratory effort, no retractions, no use of accessory muscles and clear to auscultation bilaterally Cardio regular rate, regular rhythm, S1 normal heart sound and S2 normal heart sound GI normal to inspection, nondistended, normoactive bowel sounds, soft to palpation and non-tender Extremity Extremity Narrative: Necrosis left fifth toe. Assessment & Plan Assessment/Plan (1) Hypotension: PLAN: resolved by the time he arrived here. metoprolol succinate and furosemide held. (2) Elevated troponin level not due to acute coronary syndrome: PLAN: likely demand ischemia from hypotension. echo on 09/07: EF 60%, trivial MR. (troponins not ordered last admission) no additional work up at this time. (3) Gangrene of left foot: PLAN: seen by podiatry ABIs 0.33 on left. No surgery at this time given his severe PAD and patient opting not to have conservative management. (4) PAD (peripheral artery disease): PLAN: Seen by vascular surgery who discussed with patient nonsurgical options. Opting for conservative time. PLAN: Plan Chronic conditions: * metastatic lung cancer. spinal mets. Follow up with med onc and rad onc as outpt. * BPH: tamsulosin * mood d/o: paroxetine, PRN lorazepam. * DM2: on . Add SSI. VTE prophylaxis: LMWH. Charges/Coding Visit Charges Inpatient E&M: 77990 Subs Hosp L2
--- NOTE | 2024-09-21 08:36 | EX.PCM.CON.S ---
Assessment & Plan Assessment/Plan (1) Atherosclerosis of left lower extremity with gangrene: PLAN: Reviewed arterial studies, his LLE perfusion is insufficient to expect to heal digit amputation. Reviewed prior CTA images from 04/2024, based on these patient would require open procedure with endarterectomy and bypass; endovascular intervention is not a viable option; would repeat CTA if he wanted to consider surgery. He would be a higher risk candidate for open intervention at this time. I discussed with patient potential surgery details including risks/benefits/recovery, the need for cardiac clearance, and that ultimately if he were to opt for surgery may be necessary for it to be performed at a tertiary care center due to his cardiorespiratory comorbidities. We also discussed the alternative for continued conservative wound care efforts with a focus on infection prevention for now and close outpatient f/u with reconsideration for surgical intervention as needed. After discussion, he opts for continued conservative care at this time. Will discuss with podiatry. Will continue to follow while inpatient and arrange for outpatient follow-up at discharge. HPI Consult Data Date of Consult: 09/21/24 HPI Narrative HPI Narrative: REY MEAD, is a 69 M who presented to the [facility] ER 09/19/24 with hypotension and was admitted for management. He was noted to have dry gangrene of the L 5th toe; he reports this has been present about 3 weeks, it started after he stubbed his toe. At home, he family/friends helping with wound care which has been Betadine and dry dressing. He has not had any known infection of the L 5th digit, and to this point no signs of that this admission. He was seen by Dr. Thayer who had recommended amputation if possible to reduce risk for infection long-term. Vascular studies were ordered to assess vascular status prior to any procedure. His arterial study demonstrated severe PAD with L ELIZABETH 0.33 with monophasic waveforms. He is known to our office for management of his aneurysmal disease; last OV was 05/2024 and he'd had Chest/Abd/Pelvis CTA in 04/2024 demonstrating AAA 3.8cm and L CHRISS 2.7 cm as well as severe calcific atherosclerotic burden of the iliofemoral vessels. He is currently receiving radiation secondary to lung cancern with thoracic spine metastasis; reports he has completed 3 of 5 treatments. He shares that these have been difficult, he is having a lot of pain secondary to the treatments. He also has coronary artery disease s/p CABG, COPD, and was recently admitted 09/04/24 - 09/11/2024 for pneumonia with sepsis/septic shock. He is diabetic, a1c 7.7 this admission. [facility] Medical History (Updated 09/21/24 @ 10:04 by MARIE Jimenez) Kidney disease Sleep apnea Alcohol use Excessive bleeding History of echocardiogram History of stress test Cardiology follow-up encounter Chest pain Vitamin D deficiency Left adrenal mass CAD (coronary artery disease) Blind Cancer Depression Anxiety Diabetes Prostate disease DVT (deep venous thrombosis) High cholesterol Easy bruising Umbilical hernia Neuropathy Injury of head and neck Syncope Former smoker On home oxygen therapy CPAP (continuous positive airway pressure) dependence COPD (chronic obstructive pulmonary disease) Shortness of breath on exertion History of edema Hypertension Home Medications ?Medication ?Instructions ?Recorded ?Last Taken ?Type albuterol sulfate 2.5 mg/3 mL 2.5 mg inhalation DAILY shortness 01/08/23 09/03/24 History (0.083 %) solution for nebulization of breath albuterol sulfate 90 mcg/actuation 2 puff inhalation PRN PRN 01/08/23 05/30/24 History aerosol inhaler shortness of breath or wheezing aspirin 81 mg tablet,delayed 81 mg PO DAILY general health 01/08/23 09/04/24 History release atorvastatin 20 mg tablet 20 mg PO QHS hyperlipidema 01/08/23 09/03/24 History dapagliflozin propanediol 5 mg 5 mg PO DAILY daily 01/08/23 09/03/24 History tablet (Farxiga) fluticasone fur. 100 mcg-umeclid 1 inh inhalation DAILY daily 01/08/23 09/03/24 History 62.5 mcg-vilant 25 mcg inhalat.powder (Trelegy Ellipta) furosemide 40 mg tablet 40 mg PO DAILY edema 01/08/23 09/04/24 History paroxetine HCl 10 mg tablet 10 mg PO DAILY daily 01/08/23 09/04/24 History pregabalin 150 mg capsule 150 mg PO DAILY daily 01/08/23 09/04/24 History roflumilast 250 mcg tablet 250 mcg PO DAILY guru 01/08/23 09/04/24 History tamsulosin 0.4 mg capsule 0.4 mg PO Q24H BPH 01/08/23 09/04/24 History metformin 500 mg tablet,extended 1,500 mg PO QHS D<M 03/22/24 09/04/24 History release 24hr (osmotic) gabapentin 300 mg capsule 300 mg PO QHS neuropathy 05/10/24 09/03/24 History esomeprazole magnesium 40 mg 40 mg PO DAILY daily 09/04/24 09/03/24 History capsule,delayed release insulin lispro protamine-lispro 15 unit subcut BIDCM diabetes 09/04/24 09/04/24 History 100 unit/mL (75-25) subcutaneous pen (Humalog Mix 75-25 KwikPen) metoprolol succinate 25 mg 25 mg PO DAILY hypertension 09/04/24 09/04/24 History tablet,extended release 24 hr oxycodone 5 mg tablet 5 - 10 mg PO Q6H PRN PRN pain 09/04/24 Unknown History prednisone 5 mg tablet 15 mg PO DAILY guru 09/04/24 Unknown History semaglutide 7 mg tablet (Rybelsus) 7 mg PO DAILY daily 09/04/24 09/04/24 History vitamin B complex (Complex B-100 1 tab PO DAILY daily 09/04/24 09/04/24 History tablet,extended release) cephalexin 500 mg capsule 500 mg PO 4XD 1 week #28 caps 09/11/24 Unknown Rx lorazepam 1 mg tablet 0.5 mg (1/2 x 1 mg) PO TID PRN 09/11/24 Unknown Rx anxiety #90 tabs potassium chloride 20 mEq 40 meq (2 x 20 mEq) PO BID 09/11/24 Unknown Rx tablet,extended release(part/cryst) hypokalemia 7 days #28 tabs sennosides 8.6 mg-docusate sodium 2 tab PO BID daily #0 tabs 09/11/24 Unknown Rx 50 mg tablet (Stimulant Laxative Plus) Allergy/AdvReac Type Severity Reaction Status Date / Time No Known Allergies Allergy Verified 07/24/24 10:03 Family History Mother Cancer LUNG Heart disease Father Cancer lung Sister Cancer lung Heart disease Sister Cancer lung Sister Cancer lung Sister Colon cancer Surgical History (Updated 09/19/24 @ 17:22 by Kirstin Hamilton) Hx of CABG History of bronchoscopy Hx of biopsy History of lobectomy of lung Hx of oral surgery Hx of fracture of foot Hx of fracture of leg History of open heart surgery (05/08/15) Social History household members: none housing: other 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 Smoking Status: Former smoker quit date: 03/15/15 pack-years: 120 alcohol intake: current alcohol intake frequency: a few times a month Alcohol type: beer substance use type: does not use what type of physical activity do you participate in: none seatbelt use: always do you feel safe at home: Yes Physical Exam Const alert and oriented x3 General Appearance: frail HEENT normocephalic, head/scalp atraumatic and external nose normal Eyes EOMs intact bilaterally General Eye: normal appearance of both eyes Neck General: normal visual inspection Resp normal respiratory effort and no retractions Effort and Inspection: able to speak in complete sentences Cardio Rate: regular rate Rhythm: regular rhythm Skin Wound Narrative: L 5th toe with dry gangrene, no surrounding erythema, focal edema, drainage Neuro CN's II-XII intact bilaterally Speech: speech normal Psych mental status grossly normal Appearance: grossly normal Lab / Micro Data 09/21/24 05:06 09/21/24 05:06 Labs: Laboratory Results - last 24 hr 09/20/24 12:15: POC Glucose 198 H 09/20/24 17:27: POC Glucose 198 H 09/21/24 05:06: WBC 7.6, RBC 2.62 L, Hgb 7.3 L, Hct 24.2 L, MCV 92.4, MCH 27.9, MCHC 30.2 L, RDW Std Deviation 60.6 H, RDW Coeff of Jaquan 17.9 H, Plt Count 138 L, MPV 11.0, Immature Gran % (Auto) 0.800, Neut % (Auto) 85.9 H, Lymph % (Auto) 7.0 L, [place] % (Auto) 5.7, Eos % (Auto) 0.3, Baso % (Auto) 0.3, Absolute Neuts (auto) 6.5, Absolute Lymphs (auto) 0.53 L, Nucleated RBC % 0, PT 13.7, INR 1.0, APTT 43.3 H, Sodium 136, Potassium 4.1, Chloride 100, Carbon Dioxide 26.8, Anion Gap 9, BUN 10, Creatinine 0.90, Estim Creat Clear Calc 78.56, Est GFR (MDRD) Non-Af 93, BUN/Creatinine Ratio 10.9, Glucose 140 H, Calcium 10.3, AST 29, ALT 35 Micro: Microbiology 09/19/24 15:57 Blood Culture (Wb) - Right Forearm Blood Culture - Preliminary No growth in 48 hours. 09/19/24 14:58 Blood Culture (Wb) - Anticubital Left Blood Culture - Preliminary No growth in 48 hours. Imaging Radiology Impression Extremity Arterial Study 09/20/24 07:18 Interpretation Summary Right ELIZABETH 0.72, moderate arterial insufficiency. Doppler/PVR waveforms and segmental pressures reveal infrapopliteal disease. Left ELIZABETH 0.33, severe arterial insufficiency. Doppler/PVR waveforms and segmental pressures reveal aorto-iliac disease. Ordering Physician: Humberto Thayer Referring Physician: Desiree Saleh Performed By: Jagjit Car RVT Charges/Coding Visit Charges Inpatient E&M: 66461 Init Hosp L2
[2024-09-21 09:01] VITALS: BP 99/49; PULSE 98; RESP 20; TEMP 36.6; O2SAT 99
[2024-09-21] MEDS: Insulin Human 75/25 Kwickpen 15 UNIT SC ×2 (09:05→17:58)
[2024-09-21] MEDS: Senna/Docusate Sodium 1 Tablet 2 TABLET PO ×2 (09:06→22:16)
[2024-09-21 14:35] VITALS: BP 112/62; PULSE 106; RESP 16; TEMP 36.2; O2SAT 100
[2024-09-21 22:00] VITALS: BP 111/66; PULSE 105; RESP 18; TEMP 36.9; O2SAT 100
[2024-09-22] VITALS (13 sets, daily range): BP systolic 90–141; BP diastolic 50–77; PULSE 100–113; RESP 16–20; TEMP 36.3–37.5; O2SAT 96–100; BMI 25.7
[2024-09-22 06:44] LABS: Hematocrit 23.3 % (40-54); Hemoglobin 7.1 g/dL (13.0-16.5); Immature Granulocytes Count 0.060 X10^3/uL (0.0-0.0); Mean Corp Hgb Conc 30.5 g/dL (32-36); Mean Corpuscular Volume 89.6 fL (80-94); Mean Platelet Vol. 10.4 fl (6.2-12.0); NRBC Flagged by Analyzer 0 % (0-5); Platelet Count 126 K/mm3 (150-450); RBC Distribution Width CV 17.7 % (11.6-14.6); RBC Distribution Width SD 58.4 fl (35.1-43.9); Red Blood Count 2.60 M/mm3 (4.6-6.2); White Blood Count 6.1 K/mm3 (4.4-11.0)
[2024-09-22] MEDS: Budesonide Respules 0.5 MG/2 ML AMPUL.NEB. INHALATION ×2 (07:17→19:35)
[2024-09-22 07:19] LABS: Anion Gap 7 (5-15); BUN 9 mg/dL (4-19); BUN/Creat Ratio 10.7 RATIO (10-20); Calcium,Total 10.4 mg/dL (7.6-11.0); Carbon Dioxide 27.9 mmol/L (21.0-32.0); Chloride 99 mmol/L (98-108); Estimated Creatinine Clearance 87.28 ml/min (50-250); Glucose 123 mg/dL (70-99); Potassium 3.7 mmol/L (3.3-5.1)
--- NOTE | 2024-09-22 08:04 | PN.HOSP_ITS ---
Reason for Visit Reason for Visit: Diagnoses Anemia, unspecified (09/19/24) Atherosclerosis of [place] arteries of extremities with gangrene, left leg (09/19/24) Peripheral vascular disease, unspecified (09/19/24) Hypotension, unspecified (09/19/24) Gangrene, not elsewhere classified (09/19/24) Pneumonia, unspecified organism (09/19/24) Other specified abnormal findings of blood chemistry (09/19/24) Subjective Subjective Still with back pain. Objective Data Objective Data Vital Signs: Vital Signs Temp Pulse Resp BP Pulse Ox O2 Del Method O2 Flow Rate 36.6 C 103 H 18 93/61 98 Nasal Cannula 3 09/22/24 06:00 09/22/24 07:17 09/22/24 07:17 09/22/24 06:00 09/22/24 07:17 09/22/24 07:17 09/22/24 07:17 Oxygen Flow Rate (L/min) 3 Oxygen Delivery Method Nasal Cannula Weight: 79 kg Body Mass Index (BMI) 25.7 Intake & Output: Intake and Output for Last 24 Hours 09/20/24 09/21/24 09/22/24 23:59 23:59 23:59 Intake Total 2550 / 2550 1050 / 1050 Output Total 1200 / 1200 1650 / 2950 1600 / 1600 Balance 1350 / 1350 -600 / -1900 -1600 / -1600 Lab / Micro Data 09/22/24 06:03 09/22/24 06:03 Labs: Laboratory Results - last 24 hr 09/21/24 08:13: POC Glucose 180 H 09/21/24 11:37: POC Glucose 196 H 09/21/24 15:50: POC Glucose 193 H 09/21/24 22:18: POC Glucose 111 H 09/22/24 06:03: WBC 6.1, RBC 2.60 L, Hgb 7.1 L, Hct 23.3 L, MCV 89.6, MCH 27.3, MCHC 30.5 L, RDW Std Deviation 58.4 H, RDW Coeff of Jaquan 17.7 H, Plt Count 126 L, MPV 10.4, Immature Gran % (Auto) 1.000 H, Neut % (Auto) 81.2 H, Lymph % (Auto) 11.5 L, [place] % (Auto) 5.8, Eos % (Auto) 0.3, Baso % (Auto) 0.2, Absolute Neuts (auto) 4.9, Absolute Lymphs (auto) 0.70 L, Nucleated RBC % 0, Sodium 134, Potassium 3.7, Chloride 99, Carbon Dioxide 27.9, Anion Gap 7, BUN 9, Creatinine 0.81, Estim Creat Clear Calc 87.28, Est GFR (MDRD) Non-Af 96, BUN/Creatinine Ratio 10.7, Glucose 123 H, Calcium 10.4 Micro: Microbiology 09/19/24 15:57 Blood Culture (Wb) - Right Forearm Blood Culture - Preliminary No growth in 48 hours. 09/19/24 14:58 Blood Culture (Wb) - Anticubital Left Blood Culture - Preliminary No growth in 48 hours. Physical Exam Const alert and no apparent distress HEENT head/scalp atraumatic and moist oral mucous membranes Resp normal respiratory effort, no retractions, no use of accessory muscles and clear to auscultation bilaterally Cardio regular rate, regular rhythm, S1 normal heart sound and S2 normal heart sound GI normal to inspection, nondistended, normoactive bowel sounds, soft to palpation, non-tender and non-distended Extremity Extremity Narrative: nectroic Assessment & Plan Assessment/Plan (1) Hypotension: PLAN: resolved by the time he arrived here. metoprolol succinate and furosemide held. (2) Gangrene of left foot: PLAN: seen by podiatry ABIs 0.33 on left. No surgery at this time given his severe PAD and patient opting not to have conservative management. (3) Elevated troponin level not due to acute coronary syndrome: PLAN: likely demand ischemia from hypotension. echo on 09/07: EF 60%, trivial MR. (troponins not ordered last admission) no additional work up at this time. (4) PAD (peripheral artery disease): PLAN: Seen by vascular surgery who discussed with patient surgical v nonsurgical options. Patient opting for conservative time. PLAN: Plan Chronic conditions: * metastatic lung cancer. spinal mets. Follow up with med onc and rad onc as outpt. * BPH: tamsulosin * mood d/o: paroxetine, PRN lorazepam. * DM2: on . Add SSI. VTE prophylaxis: LMWH. Disposition to SNF pending insurance authorization. DW patient's friend (with his permission) at bedside. Charges/Coding Visit Charges Inpatient E&M: 71736 Subs Hosp L2
[2024-09-22] MEDS: Insulin Human 75/25 Kwickpen 15 UNIT SC ×2 (09:54→17:18)
[2024-09-22] MEDS: 0.9% Saline Lock 10 ML Syringe IV (09:58)
--- NOTE | 2024-09-22 11:45 | CASEMGMT ---
Addendum entered by Pee Narayanan 09/22/24 12:54: Call placed to [facility]. They were made aware plan is for pt to go to SNF @ discharge. Addendum entered by Pee Narayanan 09/22/24 12:51: rosaline Sosa purchasing assistant, made aware to send referral to [facility]. Addendum entered by Pee Narayanan 09/22/24 12:51: VIPUL PEREA back to room. Pt has chosen [facility] as 1st preference and [facility] as 2nd. Al states is awaiting to hear back from his friend about another SNF in [place] that they were recommending and states this may be pt's 3rd choice, if [facility] or [facility] is not able to accept. Original Note: VIPUL PEREA note: VIPUL PEREA to room. Pt resting in bed, friend Al @ bedside. Pt agreeable to him being present during discussion about discharge plan. Pt states he feels he needs to go to a SNF short term before returning home. A list of SNF providers including quality and resource use data and consistent with the patient?s preferred geographic region, medical needs, and insurance network were provided from the [employer] Guide. Pt states he will review with Al and aware to provide top 3 preferences. Philip DUNHAM RN, CM
--- NOTE | 2024-09-22 12:30 | WOUNDNOTE ---
wound photo: left 5th toe
--- NOTE | 2024-09-22 12:30 | WOUNDNOTE ---
wound photo: left 5th toe
--- NOTE | 2024-09-22 12:57 | CASEMGMT ---
Addendum entered by Sheila Tate 09/22/24 14:46: [facility] has accepted and will submit for precert. Sheila Tate DC Planning Asst. Original Note: Discharge Planning Referral sent to [facility]. Sheila Tate DC Planning Asst.
--- NOTE | 2024-09-22 15:43 | CASEMGMT ---
Discharge Planning Pt updated that [facility] has accepted and will submit for precert. The same information was given to pts son (also John) via vm. Sheila Tate DC Planning Asst.
[2024-09-22] MEDS: Senna/Docusate Sodium 1 Tablet 2 TABLET PO (22:36)
[2024-09-23] VITALS (7 sets, daily range): BP systolic 70–114; BP diastolic 46–68; PULSE 94–109; RESP 16–18; TEMP 35.9–36.8; O2SAT 95–99; BMI 25.0
--- NOTE | 2024-09-23 05:38 | PCM.PN.SRG ---
Subjective Subjective patient seen and discussed about autoamputation left foot 5th digit. patient does understand since no pain, no infection and major surgery would need to done in order to help it heal by vascular both vascular and him decided to wait and watch. doing well no new signs of issues and no foot pain Objective Data Objective Data Vital Signs: Vital Signs Temp Pulse Resp BP Pulse Ox O2 Del Method O2 Flow Rate 97.8 F 109 H 18 107/61 95 Nasal Cannula 3 09/23/24 03:50 09/23/24 03:50 09/23/24 03:50 09/23/24 03:50 09/23/24 03:50 09/23/24 03:50 09/23/24 03:50 Oxygen Flow Rate (L/min) 3 Oxygen Delivery Method Nasal Cannula Weight: 79 kg Body Mass Index (BMI) 25.7 Intake & Output: Intake and Output for Last 24 Hours 09/21/24 09/22/24 09/23/24 23:59 23:59 23:59 Intake Total 1050 / 1050 50 / 50 Output Total 1650 / 2950 2600 / 3600 1000 / 1000 Balance -600 / -1900 -2550 / -3550 -1000 / -1000 Lab / Micro Data Attestation: I reviewed the patient's lab results. 09/22/24 06:03 09/22/24 06:03 Labs: Laboratory Results - last 24 hr 09/22/24 06:03: WBC 6.1, RBC 2.60 L, Hgb 7.1 L, Hct 23.3 L, MCV 89.6, MCH 27.3, MCHC 30.5 L, RDW Std Deviation 58.4 H, RDW Coeff of Jaquan 17.7 H, Plt Count 126 L, MPV 10.4, Immature Gran % (Auto) 1.000 H, Neut % (Auto) 81.2 H, Lymph % (Auto) 11.5 L, [place] % (Auto) 5.8, Eos % (Auto) 0.3, Baso % (Auto) 0.2, Absolute Neuts (auto) 4.9, Absolute Lymphs (auto) 0.70 L, Nucleated RBC % 0, Sodium 134, Potassium 3.7, Chloride 99, Carbon Dioxide 27.9, Anion Gap 7, BUN 9, Creatinine 0.81, Estim Creat Clear Calc 87.28, Est GFR (MDRD) Non-Af 96, BUN/Creatinine Ratio 10.7, Glucose 123 H, Calcium 10.4 09/22/24 08:55: POC Glucose 171 H 09/22/24 11:41: POC Glucose 173 H 09/22/24 17:16: POC Glucose 202 H 09/22/24 22:31: POC Glucose 238 H Micro: Microbiology 09/19/24 15:57 Blood Culture (Wb) - Right Forearm Blood Culture - Preliminary No growth in 48 hours. 09/19/24 14:58 Blood Culture (Wb) - Anticubital Left Blood Culture - Preliminary No growth in 48 hours. Radiography Diagnostic Testing: no changes on xray Physical Exam Narrative gangrenous toe 5th left foot, stable, non palpable pulses. no sign of redness and dry. will continue with betadine and dsd and wait for autoamputation unless it becomes wet gangrene then it is an emergency and discussed the reason why he should not have it removed. Const alert, oriented x3, no apparent distress, average body habitus, no limitations, healthy appearing and well nourished HEENT normocephalic, head/scalp atraumatic, hearing grossly normal bilaterally, external ears normal, EAC's normal, TM's normal bilaterally, external nose normal, nasal mucous membranes and turbinates normal, moist oral mucous membranes, oropharynx normal, dentition normal and gingiva normal Eyes PERRL, EOMs intact bilaterally, conjunctivae normal, no scleral icterus, no papilledema, normal visual haque by confrontation and fundi normal bilaterally Resp normal respiratory effort, normal air movement, no retractions, no use of accessory muscles, clear to auscultation bilaterally and percussion normal Cardio regular rate, regular rhythm, S1 normal heart sound, S2 normal heart sound, no murmurs, no rub, no gallops, no clicks, no JVD, peripheral pulses 2+ throughout and diaphoretic Extremity Extremity Narrative: dry gangrene left 5th digit non painfula nd stable. dressing changed and discussed non surgical approach and spoke with vascular. Psych Judgement: fair Assessment & Plan Assessment/Plan (1) Atherosclerosis of left lower extremity with gangrene: PLAN: non surgical candidate due to medical history and too darlin risk (2) PAD (peripheral artery disease): (3) Gangrene of left foot: PLAN: stable dry and will watch. f/u prn
[2024-09-23] MEDS: Budesonide Respules 0.5 MG/2 ML AMPUL.NEB. INHALATION ×2 (07:03→19:24)
--- NOTE | 2024-09-23 07:51 | PN.HOSP_ITS ---
Reason for Visit Reason for Visit: Diagnoses Anemia, unspecified (09/19/24) Atherosclerosis of [place] arteries of extremities with gangrene, left leg (09/19/24) Peripheral vascular disease, unspecified (09/19/24) Hypotension, unspecified (09/19/24) Gangrene, not elsewhere classified (09/19/24) Pneumonia, unspecified organism (09/19/24) Other specified abnormal findings of blood chemistry (09/19/24) Subjective Subjective Still with back pain. Objective Data Objective Data Vital Signs: Vital Signs Temp Pulse Resp BP Pulse Ox O2 Del Method O2 Flow Rate 36.6 C 94 16 107/61 95 Nasal Cannula 3 09/23/24 03:50 09/23/24 07:03 09/23/24 07:03 09/23/24 03:50 09/23/24 07:03 09/23/24 07:03 09/23/24 07:03 Oxygen Flow Rate (L/min) 3 Oxygen Delivery Method Nasal Cannula Weight: 76.7 kg Body Mass Index (BMI) 25.0 Intake & Output: Intake and Output for Last 24 Hours 09/21/24 09/22/24 09/23/24 23:59 23:59 23:59 Intake Total 1050 / 1050 50 / 50 Output Total 1650 / 2950 2600 / 3600 1700 / 1700 Balance -600 / -1900 -2550 / -3550 -1700 / -1700 Lab / Micro Data 09/22/24 06:03 09/22/24 06:03 Labs: Laboratory Results - last 24 hr 09/22/24 08:55: POC Glucose 171 H 09/22/24 11:41: POC Glucose 173 H 09/22/24 17:16: POC Glucose 202 H 09/22/24 22:31: POC Glucose 238 H Micro: Microbiology 09/19/24 15:57 Blood Culture (Wb) - Right Forearm Blood Culture - Preliminary No growth in 48 hours. 09/19/24 14:58 Blood Culture (Wb) - Anticubital Left Blood Culture - Preliminary No growth in 48 hours. Physical Exam Const alert and no apparent distress HEENT head/scalp atraumatic and moist oral mucous membranes Resp normal respiratory effort, no retractions, no use of accessory muscles and clear to auscultation bilaterally Cardio regular rate, regular rhythm, S1 normal heart sound and S2 normal heart sound Extremity Extremity Narrative: necrosis left 5th toe. Assessment & Plan Assessment/Plan (1) Hypotension: PLAN: resolved by the time he arrived here. metoprolol succinate and furosemide held. (2) Gangrene of left foot: PLAN: seen by podiatry ABIs 0.33 on left. No surgery at this time given his severe PAD and patient opting not to have conservative management. (3) Elevated troponin level not due to acute coronary syndrome: PLAN: likely demand ischemia from hypotension. echo on 09/07: EF 60%, trivial MR. (troponins not ordered last admission) no additional work up at this time. (4) PAD (peripheral artery disease): PLAN: Seen by vascular surgery who discussed with patient surgical v nonsurgical options. Patient opting for conservative time. PLAN: Plan Chronic conditions: * metastatic lung cancer. spinal mets. Follow up with med onc and rad onc as outpt. Will optimize pain medications. * BPH: tamsulosin * mood d/o: paroxetine, PRN lorazepam. * DM2: on . Add SSI. VTE prophylaxis: LMWH. Disposition to SNF pending insurance authorization. Charges/Coding Visit Charges Inpatient E&M: 97525 Subs Hosp L2
[2024-09-23] MEDS: Senna/Docusate Sodium 1 Tablet 2 TABLET PO ×2 (08:26→21:36)
[2024-09-23] MEDS: Insulin Human 75/25 Kwickpen 15 UNIT SC ×2 (08:29→17:16)
[2024-09-23] MEDS: Lidocaine 5% Patch 1 PATCH TOPICAL (14:24)
[2024-09-24] VITALS (9 sets, daily range): BP systolic 104–120; BP diastolic 55–70; PULSE 94–116; RESP 16–18; TEMP 36.3–37; O2SAT 94–100; BMI 24.6
[2024-09-24] MEDS: Budesonide Respules 0.5 MG/2 ML AMPUL.NEB. INHALATION ×2 (07:03→19:26)
--- NOTE | 2024-09-24 07:56 | PN.HOSP_ITS ---
Reason for Visit Reason for Visit: Diagnoses Anemia, unspecified (09/19/24) Atherosclerosis of [place] arteries of extremities with gangrene, left leg (09/19/24) Peripheral vascular disease, unspecified (09/19/24) Hypotension, unspecified (09/19/24) Gangrene, not elsewhere classified (09/19/24) Pneumonia, unspecified organism (09/19/24) Other specified abnormal findings of blood chemistry (09/19/24) Subjective Subjective Still with back pain. Noted to have orthostatic hypotension today. Objective Data Objective Data Vital Signs: Vital Signs Temp Pulse Resp BP Pulse Ox O2 Del Method O2 Flow Rate 36.6 C 100 18 104/62 94 Nasal Cannula 3 09/24/24 04:47 09/24/24 07:04 09/24/24 07:04 09/24/24 04:47 09/24/24 07:04 09/24/24 07:04 09/24/24 07:04 Oxygen Flow Rate (L/min) 3 Oxygen Delivery Method Nasal Cannula Weight: 75.6 kg Body Mass Index (BMI) 24.6 Intake & Output: Intake and Output for Last 24 Hours 09/22/24 09/23/24 09/24/24 23:59 23:59 23:59 Intake Total 50 / 50 1050 / 1050 Output Total 2600 / 3600 2100 / 2100 Balance -2550 / -3550 -1050 / -1050 Lab / Micro Data 09/22/24 06:03 09/22/24 06:03 Labs: Laboratory Results - last 24 hr 09/23/24 08:20: POC Glucose 211 H 09/23/24 11:02: POC Glucose 278 H 09/23/24 17:14: POC Glucose 264 H 09/23/24 21:33: POC Glucose 276 H Micro: Microbiology 09/19/24 15:57 Blood Culture (Wb) - Right Forearm Blood Culture - Preliminary No growth in 48 hours. 09/19/24 14:58 Blood Culture (Wb) - Anticubital Left Blood Culture - Preliminary No growth in 48 hours. Physical Exam Const alert and no apparent distress HEENT head/scalp atraumatic and moist oral mucous membranes Resp normal respiratory effort, no retractions, no use of accessory muscles and clear to auscultation bilaterally Cardio regular rate, regular rhythm, S1 normal heart sound and S2 normal heart sound GI normal to inspection, nondistended, normoactive bowel sounds, soft to palpation, non-tender and non-distended Neuro Sensorium / Orientation: awake and alert Assessment & Plan Assessment/Plan (1) Hypotension: PLAN: resolved by the time he arrived here. metoprolol succinate and furosemide held. Add midodrine. (2) Gangrene of left foot: PLAN: seen by podiatry ABIs 0.33 on left. No surgery at this time given his severe PAD and patient opting not to have conservative management. (3) Elevated troponin level not due to acute coronary syndrome: PLAN: likely demand ischemia from hypotension. echo on 09/07: EF 60%, trivial MR. (troponins not ordered last admission) no additional work up at this time. (4) PAD (peripheral artery disease): PLAN: Seen by vascular surgery who discussed with patient surgical v nonsurgical options. Patient opting for conservative time. PLAN: Plan Chronic conditions: * metastatic lung cancer. spinal mets. Follow up with med onc and rad onc as outpt. Will optimize pain medications. * BPH: tamsulosin * mood d/o: paroxetine, PRN lorazepam. * DM2: on . Add SSI. VTE prophylaxis: LMWH. Disposition to SNF pending insurance authorization. Charges/Coding Visit Charges Inpatient E&M: 04902 Subs Hosp L2
[2024-09-24] MEDS: Senna/Docusate Sodium 1 Tablet 2 TABLET PO ×2 (09:14→21:51)
[2024-09-24] MEDS: Lidocaine 5% Patch 1 PATCH TOPICAL (09:14)
[2024-09-24] MEDS: Insulin Human 75/25 Kwickpen 15 UNIT SC ×2 (09:16→17:12)
[2024-09-24] MEDS: 0.9% Saline Lock 10 ML Syringe IV (21:53)
[2024-09-25] VITALS (9 sets, daily range): BP systolic 97–127; BP diastolic 61–76; PULSE 90–122; RESP 17–24; TEMP 36.6–36.8; O2SAT 90–100; BMI 25.5
[2024-09-25] MEDS: Budesonide Respules 0.5 MG/2 ML AMPUL.NEB. INHALATION (07:16)
--- NOTE | 2024-09-25 08:12 | PN.HOSP_ITS ---
Reason for Visit Chief Complaint: Hypotension in the morning today. Subjective Subjective Still with back pain: 10/22. Objective Data Objective Data Vital Signs: Vital Signs Temp Pulse Resp BP Pulse Ox O2 Del Method O2 Flow Rate 36.8 C 90 18 127/76 H 98 Nasal Cannula 3 09/25/24 02:16 09/25/24 07:18 09/25/24 07:18 09/25/24 02:16 09/25/24 07:18 09/25/24 07:18 09/25/24 07:18 Oxygen Flow Rate (L/min) 3 Oxygen Delivery Method Nasal Cannula Weight: 78.4 kg Body Mass Index (BMI) 25.5 Intake & Output: Intake and Output for Last 24 Hours 09/23/24 09/24/24 09/25/24 23:59 23:59 23:59 Intake Total 1050 / 1050 1250 / 1250 100 / 100 Output Total 2100 / 2100 700 / 700 Balance -1050 / -1050 1250 / 1250 -600 / -600 Lab / Micro Data 09/22/24 06:03 09/22/24 06:03 Labs: Laboratory Results - last 24 hr 09/24/24 09:07: POC Glucose 194 H 09/24/24 11:11: POC Glucose 222 H 09/24/24 17:11: POC Glucose 196 H 09/24/24 21:57: POC Glucose 229 H 09/25/24 06:32: POC Glucose 152 H Micro: Microbiology 09/19/24 15:57 Blood Culture (Wb) - Right Forearm Blood Culture - Preliminary No growth in 48 hours. 09/19/24 14:58 Blood Culture (Wb) - Anticubital Left Blood Culture - Preliminary No growth in 48 hours. Physical Exam Const alert and no apparent distress HEENT head/scalp atraumatic and moist oral mucous membranes Resp normal respiratory effort and no retractions Cardio regular rate, regular rhythm, S1 normal heart sound and S2 normal heart sound Extremity Extremity Narrative: necrotic left 5th toe. Neuro Sensorium / Orientation: awake and alert Assessment & Plan Assessment/Plan (1) Hypotension: PLAN: resolved by the time he arrived here. metoprolol succinate and furosemide held. Add midodrine. (2) Gangrene of left foot: PLAN: seen by podiatry ABIs 0.33 on left. No surgery at this time given his severe PAD and patient opting not to have conservative management. (3) Elevated troponin level not due to acute coronary syndrome: PLAN: likely demand ischemia from hypotension. echo on 09/07: EF 60%, trivial MR. (troponins not ordered last admission) no additional work up at this time. (4) PAD (peripheral artery disease): PLAN: Seen by vascular surgery who discussed with patient surgical v nonsurgical options. Patient opting for conservative time. PLAN: Plan Chronic conditions: * metastatic lung cancer. spinal mets. Follow up with med onc and rad onc as outpt. Will optimize pain medications. Will schedule oxycodone. * BPH: tamsulosin * mood d/o: paroxetine, PRN lorazepam. * DM2: on . Add SSI. VTE prophylaxis: LMWH. Disposition to SNF pending insurance authorization. Charges/Coding Visit Charges Inpatient E&M: 03841 Subs Hosp L2
[2024-09-25] MEDS: Aspirin E.C. 81 MG Tablet PO (09:14)
[2024-09-25] MEDS: Insulin Human 75/25 Kwickpen 15 UNIT SC ×2 (09:15→17:17)
[2024-09-25] MEDS: Lidocaine 5% Patch 1 PATCH TOPICAL (09:16)
--- NOTE | 2024-09-25 09:26 | CASEMGMT ---
Discharge Planning Updates sent to [facility]. Precert remains pending. Sheila Tate DC Planning Asst.
--- NOTE | 2024-09-25 11:08 | CASEMGMT ---
Discharge Planning [employer] has declined. No reason was given, nor a P2P offer. Requested that Tere @ [facility] call [employer] to look into both. Sheila Tate DC Planning Asst.
[2024-09-25] MEDS: oxyCODONE HCl Cr 10 MG Tablet PO (12:05)
--- NOTE | 2024-09-25 13:47 | CASEMGMT ---
VIPUL PEREA received notification from [facility] that patient was denied by [facility] to go to SNF. VIPUL PEREA in to updated patient. VIPUL PEREA informed patient that his insurance is offering the right to appeal their decision. Patient declines to appeal his insurance for SNF placement at discharge. Patient wishes to home with resumption of [facility], declined HHC list. VIPUL PEREA discuss [facility] with patient and is agreeable to have referral sent. Patient states his friend Al will pick him up and is able to bring oxygen tank from home. Patient denied further needs or concerns at this time. VIPUL PEREA updated hospitalist of denial. VIPUL PEREA updated regarding request for [facility] referral. VIPUL PEREA updated [facility] regarding discharge to home, resumption of care planned for Wednesday, VIPUL PEREA updated patient. Discharge plan updated.
--- NOTE | 2024-09-25 13:57 | CASEMGMT ---
Social Work Referral sent to [facility] via the website. BROOKE Argueta
--- NOTE | 2024-09-25 15:15 | DS.PCM_ITS ---
Providers Date of Admission: 09/19/24 Primary Care Physician: Dr. Desiree Saleh MD Consultations 09/19/24 17:57 Consult: Podiatry Routine Consulting Provider: Humberto Thayer Reason for Consult: Left fifth toe dry gangrene. EMERGENT Consult: No Notified: Yes Date Notified: 09/19/24 Time Notified: 17:57 Method of Notification: Verbal 09/20/24 18:19 Consult: Vascular Surgery Routine Consulting Provider: Naresh Cuellar Reason for Consult: PAD EMERGENT Consult: No Notified: Yes Date Notified: 09/20/24 Time Notified: 18:19 Method of Notification: text to PA Reason For Visit: HYPONATREMIA, DEHYDRATION, DRY GANGRENE Diagnosis Discharge Diagnosis (1) Hypotension: Status: Acute Code(s): I95.9 - Hypotension, unspecified Plan: resolved by the time he arrived here. metoprolol succinate and furosemide held. Add midodrine. (2) Gangrene of left foot: Status: Acute Code(s): I96 - Gangrene, not elsewhere classified Plan: seen by podiatry ABIs 0.33 on left. No surgery at this time given his severe PAD and patient opting not to have conservative management. (3) Elevated troponin level not due to acute coronary syndrome: Status: Acute Code(s): R79.89 - Other specified abnormal findings of blood chemistry Plan: likely demand ischemia from hypotension. echo on 09/07: EF 60%, trivial MR. (troponins not ordered last admission) no additional work up at this time. (4) PAD (peripheral artery disease): Status: Acute Code(s): I73.9 - Peripheral vascular disease, unspecified Plan: Seen by vascular surgery who discussed with patient surgical v nonsurgical options. Patient opting for conservative time. Plan Chronic conditions: * metastatic lung cancer. spinal mets. Follow up with med onc and rad onc as outpt. Will optimize pain medications. Will schedule oxycodone. * BPH: tamsulosin * mood d/o: paroxetine, PRN lorazepam. * DM2: on . VTE prophylaxis: LMWH. Disposition to home with [facility]. Medications at Discharge Home Medications albuterol sulfate 2.5 mg/3 mL (0.083 %) solution for nebulization 2.5 mg inhalation DAILY shortness of breath 10/27/23 albuterol sulfate 90 mcg/actuation aerosol inhaler 2 puff inhalation PRN PRN shortness of breath or wheezing 01/08/23 aspirin 81 mg tablet,delayed release 81 mg PO DAILY general health 01/08/23 atorvastatin 20 mg tablet 20 mg PO QHS hyperlipidema 01/08/23 dapagliflozin propanediol 5 mg tablet (Farxiga) 5 mg PO DAILY daily 01/08/23 fluticasone fur. 100 mcg-umeclid 62.5 mcg-vilant 25 mcg inhalat.powder (Trelegy Ellipta) 1 inh inhalation DAILY daily 01/08/23 paroxetine HCl 10 mg tablet 10 mg PO DAILY daily 01/08/23 pregabalin 150 mg capsule 150 mg PO DAILY daily 01/08/23 roflumilast 250 mcg tablet 250 mcg PO DAILY guru 01/08/23 tamsulosin 0.4 mg capsule 0.4 mg PO Q24H BPH 01/08/23 metformin 500 mg tablet,extended release 24hr (osmotic) 1,500 mg PO QHS D<M 03/22/24 gabapentin 300 mg capsule 300 mg PO QHS neuropathy 05/10/24 esomeprazole magnesium 40 mg capsule,delayed release 40 mg PO DAILY daily 09/04/24 insulin lispro protamine-lispro 100 unit/mL (75-25) subcutaneous pen (Humalog Mix 75-25 KwikPen) 15 unit subcut BIDCM diabetes 09/04/24 metoprolol succinate 25 mg tablet,extended release 24 hr 25 mg PO DAILY hypertension 09/04/24 prednisone 5 mg tablet 15 mg PO DAILY guru 09/04/24 semaglutide 7 mg tablet (Rybelsus) 7 mg PO DAILY daily 09/04/24 vitamin B complex (Complex B-100 tablet,extended release) 1 tab PO DAILY daily 09/04/24 cephalexin 500 mg capsule 500 mg PO 4XD 1 week #28 caps 09/11/24 lorazepam 1 mg tablet 0.5 mg (1/2 x 1 mg) PO TID PRN anxiety #90 tabs 09/11/24 sennosides 8.6 mg-docusate sodium 50 mg tablet (Stimulant Laxative Plus) 2 tab PO BID daily #0 tabs 09/11/24 acetaminophen 500 mg tablet 1,000 mg (2 x 500 mg) PO Q8 PRN pain/fever #0 tabs 09/25/24 lidocaine 5 % topical patch 1 patch topical DAILY #30 ea 09/25/24 midodrine 5 mg tablet 10 mg (2 x 5 mg) PO TIDCM #120 tabs 09/25/24 oxycodone 5 mg tablet 5 mg PO Q4H PRN PRN Pain Score 4-10 5 days #20 tabs 09/25/24 Hospital Course Operations None Procedures None Summary of Care Provided Minutes Spent on Discharge: 32 Weight / BMI Weight Weight: 78.4 kg Body Mass Index (BMI) 25.5 ABG / Lab / Microbiology Data 09/22/24 06:03 09/22/24 06:03 Laboratory: Laboratory Results - last 24 hr 09/24/24 17:11: POC Glucose 196 H 09/24/24 21:57: POC Glucose 229 H 09/25/24 06:32: POC Glucose 152 H 09/25/24 11:34: POC Glucose 210 H Microbiology: Microbiology 09/19/24 15:57 Blood Culture (Wb) - Right Forearm Blood Culture - Final No growth in 5 days. 09/19/24 14:58 Blood Culture (Wb) - Anticubital Left Blood Culture - Final No growth in 5 days. D/C Instructions DC O2, CPAP, BIPAP Needs Home O2 Discharge instructions: Yes Type of respiratory needs?: Oxygen Oxygen frequency: Continuous Continuous oxygen liters per minute: 3 DC home with Oxygen: Yes Home O2 MD Review: I have reviewed the oxygen testing, and the patient qualifies for home oxygen equipment and portability. The patient is mobile in the home and the community. Meaningful Use Info Meaningful Use Meaningful Use Diagnoses (Choose all that apply): None applicable Discharge Plan Admission Admit Date/Time: 09/19/24 17:12 Primary Reason for Your Visit: Gangrene. Attending Provider: Naresh Florez Primary Care Provider: Desiree Saleh Consulting Providers: Humberto Thayer; Jose Zhang; Naresh Cuellar Instructions Additional Instructions / Restrictions: Follow up with oncologist and radiation oncologist at your earliest convenience. Discharge Orders/Prescriptions Prescriptions: New midodrine 5 mg Tablet 10 mg PO TIDCM Qty: 120 0RF acetaminophen 500 mg Tablet 1,000 mg PO Q8 PRN (Reason: pain/fever) Qty: 0 0RF lidocaine 5 % Adhesive Patch,Medicated 1 patch topical DAILY Qty: 30 0RF Protocol: *Topical Application Instructions APPLICATION INSTRUCTIONS: to back. Rx Instructions: to upper back. oxycodone 5 mg Tablet 5 mg PO Q4H PRN PRN (Reason: Pain Score 4-10) 5 Days Qty: 20 0RF Continued gabapentin 300 mg capsule 300 mg PO QHS paroxetine HCl 10 mg tablet 10 mg PO DAILY pregabalin 150 mg capsule 150 mg PO DAILY roflumilast 250 mcg tablet 250 mcg PO DAILY tamsulosin 0.4 mg capsule 0.4 mg PO Q24H albuterol sulfate 2.5 mg /3 mL (0.083 %) solution for nebulization 2.5 mg inhalation DAILY albuterol sulfate 90 mcg/actuation HFA aerosol inhaler 2 puff INHALATION PRN PRN (Reason: shortness of breath or wheezing) aspirin 81 mg tablet,delayed release (DR/EC) 81 mg PO DAILY atorvastatin 20 mg tablet 20 mg PO QHS dapagliflozin propanediol [Farxiga] 5 mg tablet 5 mg PO DAILY Trelegy Ellipta 100-62.5-25 mcg blister with device 1 inh INHALATION DAILY metformin 500 mg tablet extended release 24hr 1,500 mg PO QHS Patient Comments: TAKE 2 tabs in the AM and One tab in PM Rx Instructions: TAKE 2 tabs in the AM and One tab in PM esomeprazole magnesium 40 mg capsule,delayed release(DR/EC) 40 mg PO DAILY metoprolol succinate 25 mg tablet extended release 24 hr 25 mg PO DAILY insulin lispro protamin-lispro [Humalog Mix 75-25 KwikPen] 100 unit/mL (75-25) insulin pen 15 unit subcut BIDCM Rybelsus 7 mg tablet 7 mg PO DAILY prednisone 5 mg tablet 15 mg PO DAILY Complex B-100 Tablet Extended Release 1 tab PO DAILY sennosides-docusate sodium [Stimulant Laxative Plus] 8.6-50 mg Tablet 2 tab PO BID Qty: 0 0RF lorazepam 1 mg tablet 0.5 mg PO TID PRN (Reason: anxiety) Qty: 90 0RF cephalexin 500 mg capsule 500 mg PO 4XD 7 Days Qty: 28 0RF Discontinued furosemide 40 mg tablet 40 mg PO DAILY oxycodone 5 mg tablet 5 - 10 mg PO Q6H PRN PRN (Reason: pain) potassium chloride 20 mEq Tablet,Er Particles/Crystals 40 meq PO BID 7 Days Qty: 28 0RF Referrals / Follow Up: Desiree Saleh MD [Primary Care Provider] - Within 2 Weeks Disposition Disposition (needs filled in before D/C Order can be placed): Home Health Service Charges/Coding Visit Charges Inpatient E&M: 88189 Disch Hosp >30min
== END 2024-09-25 18:25 | disposition home health service (06) | DRG 300 ==
LOC: ED 14:55 → PCU 17:30
PROVIDERS: Anesthesiology; Admitting Provider Internal Medicine; Emergency Provider Surgery; PCP Internal Medicine
DX: E11.52 Type 2 diabetes mellitus with diabetic peripheral angiopathy with gangrene (principal); C79.51 Secondary malignant neoplasm of bone; I24.89 Other forms of acute ischemic heart disease; E87.1 Hypo-osmolality and hyponatremia; C34.90 Malignant neoplasm of unspecified part of unspecified bronchus or lung; D64.9 Anemia, unspecified; J44.9 Chronic obstructive pulmonary disease, unspecified; I10 Essential (primary) hypertension; I71.40 Abdominal aortic aneurysm, without rupture, unspecified; F32.A Depression, unspecified; I95.9 Hypotension, unspecified; E78.00 Pure hypercholesterolemia, unspecified; I25.10 Atherosclerotic heart disease of native coronary artery without angina pectoris; Z79.4 Long term (current) use of insulin; F41.9 Anxiety disorder, unspecified; K21.9 Gastro-esophageal reflux disease without esophagitis; N40.1 Benign prostatic hyperplasia with lower urinary tract symptoms; Z79.51 Long term (current) use of inhaled steroids; Z79.82 Long term (current) use of aspirin; Z79.899 Other long term (current) drug therapy; Z79.84 Long term (current) use of oral hypoglycemic drugs; Z86.718 Personal history of other venous thrombosis and embolism; Z87.891 Personal history of nicotine dependence; Z95.1 Presence of aortocoronary bypass graft
CPT/HCPCS: 36415; 71275; 73630; 74177; 80048; 80053; 81001; 82962; 83605; 83690; 83735; 84100; 84450; 84460; 84484; 85014; 85018; 85025; 85610; 85652; 85730; 86140; 87040; 93005; 93923; 94640; 94668; 97116; 97162; 97166; 97530; 97535; 99285; Q9967; A4216

== ENCOUNTER 2024-10-05 16:02 | Emergency (ER) | payer MEDICARE, MEDICAID, SELFPAY ==
[2024-10-05] VITALS (20 sets, daily range): BP systolic 98–137; BP diastolic 53–86; PULSE 88–107; RESP 16–24; TEMP 36.4–37.2; O2SAT 98–100; BMI 25.9
--- NOTE | 2024-10-05 16:35 | EX.ED.DYSGE1 ---
HPI History of Present Illness Chief Complaint: Chest Pain Narrative Narrative: 69-year-old male, multiple medical problems including COPD, was recently admitted to the ICU and released, presents with his friend because he states he needs a blood transfusion. He relates history that he has a mass on his back/lung carcinoma which causes him pain. He has had a few radiation treatments which help alleviate his pain, however his recent admission for few weeks have prevented him from getting another radiation treatment. He is supposed to have a total of 5. He states he is having the same pain in his back/lung that is similar to before he had a radiation treatment which would alleviate his pain. He had blood work performed by his primary care provider today, this morning, and he and his friend received a call that he needed a blood transfusion. They were unsure as to what his hemoglobin was, but he states he has received blood transfusions in the past and needed 1 approximately a week ago. He denies any black stool, no hematemesis, denies other bleeding diathesis. [facility] Medical History Anemia PAD (peripheral artery disease) Kidney disease Sleep apnea Alcohol use Excessive bleeding History of echocardiogram History of stress test Cardiology follow-up encounter Chest pain Vitamin D deficiency Left adrenal mass CAD (coronary artery disease) Blind Cancer Depression Anxiety Diabetes Prostate disease DVT (deep venous thrombosis) High cholesterol Easy bruising Umbilical hernia Neuropathy Injury of head and neck Syncope Former smoker On home oxygen therapy CPAP (continuous positive airway pressure) dependence COPD (chronic obstructive pulmonary disease) Shortness of breath on exertion History of edema Hypertension Home Medications Medication Instructions Recorded Last Taken Type albuterol sulfate 2.5 mg/3 mL 2.5 mg inhalation DAILY shortness 01/08/23 09/03/24 History (0.083 %) solution for nebulization of breath albuterol sulfate 90 mcg/actuation 2 puff inhalation PRN PRN 01/08/23 05/30/24 History aerosol inhaler shortness of breath or wheezing aspirin 81 mg tablet,delayed 81 mg PO DAILY general health 01/08/23 09/04/24 History release atorvastatin 20 mg tablet 20 mg PO QHS hyperlipidema 01/08/23 09/03/24 History dapagliflozin propanediol 5 mg 5 mg PO DAILY daily 01/08/23 09/03/24 History tablet (Farxiga) fluticasone fur. 100 mcg-umeclid 1 inh inhalation DAILY daily 01/08/23 09/03/24 History 62.5 mcg-vilant 25 mcg inhalat.powder (Trelegy Ellipta) paroxetine HCl 10 mg tablet 10 mg PO DAILY daily 01/08/23 09/04/24 History pregabalin 150 mg capsule 150 mg PO DAILY daily 01/08/23 09/04/24 History roflumilast 250 mcg tablet 250 mcg PO DAILY guru 01/08/23 09/04/24 History tamsulosin 0.4 mg capsule 0.4 mg PO Q24H BPH 01/08/23 09/04/24 History metformin 500 mg tablet,extended 1,500 mg PO QHS D<M 03/22/24 09/04/24 History release 24hr (osmotic) gabapentin 300 mg capsule 300 mg PO QHS neuropathy 05/10/24 09/03/24 History esomeprazole magnesium 40 mg 40 mg PO DAILY daily 09/04/24 09/03/24 History capsule,delayed release insulin lispro protamine-lispro 15 unit subcut BIDCM diabetes 09/04/24 09/04/24 History 100 unit/mL (75-25) subcutaneous pen (Humalog Mix 75-25 KwikPen) metoprolol succinate 25 mg 25 mg PO DAILY hypertension 09/04/24 09/04/24 History tablet,extended release 24 hr prednisone 5 mg tablet 15 mg PO DAILY guru 09/04/24 Unknown History semaglutide 7 mg tablet (Rybelsus) 7 mg PO DAILY daily 09/04/24 09/04/24 History vitamin B complex (Complex B-100 1 tab PO DAILY daily 09/04/24 09/04/24 History tablet,extended release) cephalexin 500 mg capsule 500 mg PO 4XD 1 week #28 caps 09/11/24 Unknown Rx lorazepam 1 mg tablet 0.5 mg (1/2 x 1 mg) PO TID PRN 09/11/24 Unknown Rx anxiety #90 tabs sennosides 8.6 mg-docusate sodium 2 tab PO BID daily #0 tabs 09/11/24 Unknown Rx 50 mg tablet (Stimulant Laxative Plus) acetaminophen 500 mg tablet 1,000 mg (2 x 500 mg) PO Q8 PRN 09/25/24 Unknown Rx pain/fever #0 tabs lidocaine 5 % topical patch 1 patch topical DAILY #30 ea 09/25/24 Unknown Rx midodrine 5 mg tablet 10 mg (2 x 5 mg) PO TIDCM #120 tabs 09/25/24 Unknown Rx oxycodone 5 mg tablet 5 mg PO Q4H PRN PRN Pain Score 09/25/24 Unknown Rx 4-10 5 days #20 tabs Allergy/AdvReac Type Severity Reaction Status Date / Time No Known Allergies Allergy Verified 10/05/24 16:04 Family History Mother Cancer LUNG Heart disease Father Cancer lung Sister Cancer lung Heart disease Sister Cancer lung Sister Cancer lung Sister Colon cancer Surgical History Hx of CABG History of bronchoscopy Hx of biopsy History of lobectomy of lung Hx of oral surgery Hx of fracture of foot Hx of fracture of leg History of open heart surgery (05/08/15) Social History household members: none housing: other 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 No chest pain. EXAM Physical Exam Narrative Exam Narrative: Afebrile. Vital signs noted. Nontoxic-appearing. Cardiovascular examination reveals intermittent tachycardia. No tachypnea. Abdomen soft nontender. Positive pallor of skin. Awake, alert, interactive. Const Vital Signs: 10/05/24 16:03 10/05/24 17:02 10/05/24 18:06 Temperature 98.6 F Temperature Source Oral Pulse Rate 107 H 93 89 Respiratory Rate 18 20 H 16 Blood Pressure 98/64 121/64 H 119/62 Blood Pressure Mean 75 83 81 Blood Pressure Source Blood Pressure Position Blood Pressure Location Pulse Ox 98 99 98 Oxygen Delivery Method Room Air Room Air Nasal Cannula Oxygen Flow Rate (L/min) 3 10/05/24 18:28 10/05/24 18:43 10/05/24 19:00 Temperature 99 F 98.4 F Temperature Source Oral Oral Pulse Rate 89 92 90 Respiratory Rate 19 H 19 H 18 Blood Pressure 116/65 118/67 127/69 H Blood Pressure Mean 82 84 88 Blood Pressure Source Monitor Monitor Blood Pressure Position Semi-Fowlers Semi-Fowlers Blood Pressure Location Right Arm Right Arm Pulse Ox 99 99 100 Oxygen Delivery Method Room Air Nasal Cannula Room Air Oxygen Flow Rate (L/min) 3 10/05/24 19:43 10/05/24 20:00 10/05/24 20:47 Temperature 97.7 F L 97.8 F Temperature Source Oral Oral Pulse Rate 90 90 97 Respiratory Rate 21 H 23 H 21 H Blood Pressure 121/86 H 129/71 H 124/53 H Blood Pressure Mean 97 90 76 Blood Pressure Source Monitor Monitor Blood Pressure Position Semi-Fowlers Semi-Fowlers Blood Pressure Location Pulse Ox 100 100 99 Oxygen Delivery Method Nasal Cannula Room Air Nasal Cannula Oxygen Flow Rate (L/min) 3 3 3 10/05/24 20:50 10/05/24 20:56 10/05/24 21:02 Temperature 97.8 F 97.9 F Temperature Source Oral Oral Pulse Rate 94 96 94 Respiratory Rate 20 H 24 H Blood Pressure 133/70 H 124/53 H Blood Pressure Mean 91 76 Blood Pressure Source Blood Pressure Position Blood Pressure Location Pulse Ox 99 99 99 Oxygen Delivery Method Nasal Cannula Room Air Nasal Cannula Oxygen Flow Rate (L/min) 3 3 10/05/24 21:58 10/05/24 21:59 10/05/24 22:02 Temperature 97.5 F L 97.5 F L Temperature Source Oral Oral Pulse Rate 92 92 92 Respiratory Rate 23 H 23 H Blood Pressure 137/68 H 137/68 H 137/68 H Blood Pressure Mean 91 91 91 Blood Pressure Source Monitor Monitor Blood Pressure Position Blood Pressure Location Pulse Ox 99 99 Oxygen Delivery Method Nasal Cannula Nasal Cannula Oxygen Flow Rate (L/min) 3 3 MDM MDM MDM Narrative Medical decision making narrative: Differential diagnosis includes but not limited to anemia requiring transfusion versus COPD exacerbation versus anemia of chronic disease versus GI bleed. Reviewed his laboratory work and his hemoglobin today was 6.6. Patient does not take blood thinners. He is not having black stool. He has an appointment for radiation treatment tomorrow and clearly expresses that he hopes he does not require observation or admission. I will repeat his CBC to make sure that there has been no significant drop, but he will be typed and crossmatched for 2 units of packed red blood cells and transfused. EKG was obtained and interpreted by myself independently as normal sinus rhythm at 92 bpm without ectopy or acute ST changes. No STEMI. I reviewed his CBC without differential and as hemoglobin is 6.4, down from 6.6 a few hours ago. He was typed and crossmatched and consented and will be transfused 2 units of packed red blood cells. Afterwards, I do feel he can be discharged to follow-up with hematology oncology and have his hemoglobin rechecked in the next few days. Patient is very motivated for discharge so that he can get his radiation therapy on his back to help alleviate his pain. Disposition is discharged home in stable condition. History & Record Review Discussion w/independent historian: Patient and Friend Additional record(s) reviewed:: Prior ED visit Lab Data Attestation: I reviewed the patient's lab results. Labs: Laboratory Results - last 24 hr 10/05/24 16:34 WBC 8.6 RBC 2.36 L Hgb 6.4 L Hct 21.1 L MCV 89.4 MCH 27.1 MCHC 30.3 L D RDW Std Deviation 58.8 H RDW Coeff of Jaquan 18.1 H Plt Count 304 MPV 9.4 Blood Type A POSITIVE Antibody Screen NEGATIVE Crossmatch See Detail Discharge Plan Triage Chief Complaint: Chest Pain ED Provider: Aden Stahl Dx/Rx/DC Orders Clinical Impression: Anemia requiring transfusions, COPD (chronic obstructive pulmonary disease), Cancer, Back pain Instructions: ED Anemia, Type Not Specified (Adult) Prescriptions: No Action gabapentin 300 mg capsule 300 mg PO QHS paroxetine HCl 10 mg tablet 10 mg PO DAILY pregabalin 150 mg capsule 150 mg PO DAILY roflumilast 250 mcg tablet 250 mcg PO DAILY tamsulosin 0.4 mg capsule 0.4 mg PO Q24H albuterol sulfate 2.5 mg /3 mL (0.083 %) solution for nebulization 2.5 mg inhalation DAILY albuterol sulfate 90 mcg/actuation HFA aerosol inhaler 2 puff INHALATION PRN PRN (Reason: shortness of breath or wheezing) aspirin 81 mg tablet,delayed release (DR/EC) 81 mg PO DAILY atorvastatin 20 mg tablet 20 mg PO QHS dapagliflozin propanediol [Farxiga] 5 mg tablet 5 mg PO DAILY Trelegy Ellipta 100-62.5-25 mcg blister with device 1 inh INHALATION DAILY metformin 500 mg tablet extended release 24hr 1,500 mg PO QHS Patient Comments: TAKE 2 tabs in the AM and One tab in PM Rx Instructions: TAKE 2 tabs in the AM and One tab in PM esomeprazole magnesium 40 mg capsule,delayed release(DR/EC) 40 mg PO DAILY metoprolol succinate 25 mg tablet extended release 24 hr 25 mg PO DAILY insulin lispro protamin-lispro [Humalog Mix 75-25 KwikPen] 100 unit/mL (75-25) insulin pen 15 unit subcut BIDCM Rybelsus 7 mg tablet 7 mg PO DAILY prednisone 5 mg tablet 15 mg PO DAILY Complex B-100 Tablet Extended Release 1 tab PO DAILY sennosides-docusate sodium [Stimulant Laxative Plus] 8.6-50 mg Tablet 2 tab PO BID Qty: 0 0RF lorazepam 1 mg tablet 0.5 mg PO TID PRN (Reason: anxiety) Qty: 90 0RF cephalexin 500 mg capsule 500 mg PO 4XD 7 Days Qty: 28 0RF midodrine 5 mg Tablet 10 mg PO TIDCM Qty: 120 0RF acetaminophen 500 mg Tablet 1,000 mg PO Q8 PRN (Reason: pain/fever) Qty: 0 0RF lidocaine 5 % Adhesive Patch,Medicated 1 patch topical DAILY Qty: 30 0RF Protocol: *Topical Application Instructions APPLICATION INSTRUCTIONS: to back. Rx Instructions: to upper back. oxycodone 5 mg Tablet 5 mg PO Q4H PRN PRN (Reason: Pain Score 4-10) 5 Days Qty: 20 0RF Primary Care Provider: Desiree Saleh Referrals: Desiree Saleh MD [Primary Care Provider] - Activity Restrictions/Additional Instructions: Follow-up and have your radiation therapy performed tomorrow. You need to follow-up with Dr. Gutierrez as well. Have your hemoglobin repeated within the next few days. Return with new or worsening symptoms. Print Language: Bolivian Disposition Disposition: Home, Self Care
--- NOTE | 2024-10-05 16:38 | EKG12_ITS ---
Test Reason : ARRYTH Blood Pressure : */* mmHG Vent. Rate : 92 BPM Atrial Rate : 92 BPM P-R Int : 172 ms QRS Dur : 118 ms QT Int : 368 ms P-R-T Axes : 58 75 23 degrees QTcB Int : 455 ms Normal sinus rhythm Right bundle branch block Abnormal ECG Confirmed by ISAURA PENA, ANASTACIO ([id number]), subeditor ARIA CERVANTES ([id number]) on 10/09/2024 9:43:09 AM Referred By: ALEX Confirmed By: ANASTACIO DELAROSA MD
[2024-10-05 16:54] LABS: Hematocrit 21.1 % (40-54); Hemoglobin 6.4 g/dL (13.0-16.5); Mean Corp Hgb Conc 30.3 g/dL (32-36); Mean Corpuscular Volume 89.4 fL (80-94); Mean Platelet Vol. 9.4 fl (6.2-12.0); Platelet Count 304 K/mm3 (150-450); RBC Distribution Width CV 18.1 % (11.6-14.6); RBC Distribution Width SD 58.8 fl (35.1-43.9); Red Blood Count 2.36 M/mm3 (4.6-6.2); White Blood Count 8.6 K/mm3 (4.4-11.0)
== END 2024-10-05 23:43 | disposition home or self-care (01) ==
PROVIDERS: Emergency Provider Emergency Medicine; PCP Internal Medicine; Visit Provider Emergency Medicine
DX: D64.9 Anemia, unspecified (principal); J44.9 Chronic obstructive pulmonary disease, unspecified; E11.9 Type 2 diabetes mellitus without complications; I25.10 Atherosclerotic heart disease of native coronary artery without angina pectoris; Z87.891 Personal history of nicotine dependence; Z86.718 Personal history of other venous thrombosis and embolism
CPT/HCPCS: 36430; 85027; 86850; 86900; 86901; 93005; 99283; P9016; A4216

== ENCOUNTER → 2024-10-05 | Outpatient (CLI) | payer MEDICARE, SELFPAY ==
[2024-10-05 12:35] LABS: Hematocrit 22.9 % (40-54); Hemoglobin 6.6 g/dL (13.0-16.5); Immature Granulocytes Count 0.210 X10^3/uL (0.0-0.0); Mean Corp Hgb Conc 28.8 g/dL (32-36); Mean Corpuscular Volume 90.5 fL (80-94); Mean Platelet Vol. 9.6 fl (6.2-12.0); NRBC Flagged by Analyzer 0 % (0-5); Platelet Count 349 K/mm3 (150-450); RBC Distribution Width CV 18.0 % (11.6-14.6); RBC Distribution Width SD 59.3 fl (35.1-43.9); Red Blood Count 2.53 M/mm3 (4.6-6.2); White Blood Count 10.3 K/mm3 (4.4-11.0)
[2024-10-05 12:57] LABS: AST(SGOT) 22 U/L (<=37); Alanine Aminotransfer ALT/SGPT 28 U/L (<=46); Albumin, Serum 2.8 g/dL (3.4-4.8); Alkaline Phosphatase 105 U/L (40-129); Anion Gap 10 (5-15); BUN 8 mg/dL (4-19); BUN/Creat Ratio 12.0 RATIO (10-20); Calcium,Total 10.4 mg/dL (7.6-11.0); Carbon Dioxide 28.1 mmol/L (21.0-32.0); Chloride 94 mmol/L (98-108); Globulin 3.3 g/dL (2.2-4.2); Glucose 87 mg/dL (70-99); Potassium 3.8 mmol/L (3.3-5.1)
== END | disposition home or self-care (01) ==
LOC: BIMLAB 11:24
PROVIDERS: PCP Internal Medicine; Referring Provider Nurse Practitioner Family; Visit Provider Nurse Practitioner Family
DX: I70.262 Atherosclerosis of native arteries of extremities with gangrene, left leg (principal); E87.6 Hypokalemia; E87.1 Hypo-osmolality and hyponatremia
CPT/HCPCS: 36415; 80053; 85025

== ENCOUNTER 2024-10-19 11:12 | Outpatient (RCR) | payer MEDICARE, MEDICAID, SELFPAY ==
[2024-10-19 11:23] LABS: Hematocrit 29.3 % (40-54); Hemoglobin 9.0 g/dL (13.0-16.5); Mean Corp Hgb Conc 30.7 g/dL (32-36); Mean Corpuscular Volume 86.7 fL (80-94); Mean Platelet Vol. 9.2 fl (6.2-12.0); Platelet Count 325 K/mm3 (150-450); RBC Distribution Width CV 16.5 % (11.6-14.6); RBC Distribution Width SD 52.0 fl (35.1-43.9); Red Blood Count 3.38 M/mm3 (4.6-6.2); White Blood Count 22.0 K/mm3 (4.4-11.0)
== END 2024-10-19 18:00 | disposition home or self-care (01) ==
LOC: HHLAB 11:12
PROVIDERS: PCP Internal Medicine; Referring Provider Internal Medicine; Visit Provider Internal Medicine
DX: E11.52 Type 2 diabetes mellitus with diabetic peripheral angiopathy with gangrene (principal); E11.40 Type 2 diabetes mellitus with diabetic neuropathy, unspecified; C34.91 Malignant neoplasm of unspecified part of right bronchus or lung; C79.51 Secondary malignant neoplasm of bone
CPT/HCPCS: 85027

== ENCOUNTER 2024-10-19 15:08 | Emergency (ER) | payer MEDICARE, MEDICAID, SELFPAY ==
[2024-10-19] VITALS (7 sets, daily range): BP systolic 113–128; BP diastolic 59–69; PULSE 70–95; RESP 14–20; TEMP 36.3–36.6; O2SAT 97–100; BMI 22.8
--- NOTE | 2024-10-19 15:36 | EKG12_ITS ---
Test Reason : LOW BP Blood Pressure : */* mmHG Vent. Rate : 88 BPM Atrial Rate : 88 BPM P-R Int : 180 ms QRS Dur : 122 ms QT Int : 408 ms P-R-T Axes : 28 99 20 degrees QTcB Int : 493 ms Normal sinus rhythm Rightward axis Non-specific intra-ventricular conduction delay Borderline ECG Confirmed by GABRIELLE NAVA ([id number]), desk editor ARIA CERVANTES ([id number]) on 10/23/2024 6:48:08 AM Referred By: Carroll Celeste Confirmed By: GABRIELLE NAVA
--- NOTE | 2024-10-19 15:41 | EX.ED.DYSGE1 ---
HPI History of Present Illness Chief Complaint: Hypotension Informant: patient Onset/Context/Timing Onset: Today Context: Gradual Onset Timing: Intermittent Current Severity: Mild Maximum Severity: Mild Narrative Narrative: 69-year-old male known history of left upper lobe lung cancer. On 3 L O2 history of COPD, PAD, anemia, diabetes and hypertension. Presents today for refills of lightheadedness and generalized weakness from low blood pressure. Denies nausea, vomiting, diarrhea. Denies fever or chills. Denies chest pain. He is chronically short of breath and on 3 L of oxygen. Denies any melena. He has had recent admissions reportedly. Prior similar symptoms: Yes Recent Illness/Hospitalization: Yes [facility] Medical History Anemia PAD (peripheral artery disease) Kidney disease Sleep apnea Alcohol use Excessive bleeding History of echocardiogram History of stress test Cardiology follow-up encounter Chest pain Vitamin D deficiency Left adrenal mass CAD (coronary artery disease) Blind Cancer Depression Anxiety Diabetes Prostate disease DVT (deep venous thrombosis) High cholesterol Easy bruising Umbilical hernia Neuropathy Injury of head and neck Syncope Former smoker On home oxygen therapy CPAP (continuous positive airway pressure) dependence COPD (chronic obstructive pulmonary disease) Shortness of breath on exertion History of edema Hypertension Home Medications ?Medication ?Instructions ?Recorded ?Last Taken ?Type albuterol sulfate 2.5 mg/3 mL 2.5 mg inhalation DAILY shortness 01/08/23 09/03/24 History (0.083 %) solution for nebulization of breath albuterol sulfate 90 mcg/actuation 2 puff inhalation PRN PRN 01/08/23 05/30/24 History aerosol inhaler shortness of breath or wheezing aspirin 81 mg tablet,delayed 81 mg PO DAILY general health 01/08/23 09/04/24 History release atorvastatin 20 mg tablet 20 mg PO QHS hyperlipidema 01/08/23 09/03/24 History dapagliflozin propanediol 5 mg 5 mg PO DAILY daily 01/08/23 09/03/24 History tablet (Farxiga) fluticasone fur. 100 mcg-umeclid 1 inh inhalation DAILY daily 01/08/23 09/03/24 History 62.5 mcg-vilant 25 mcg inhalat.powder (Trelegy Ellipta) paroxetine HCl 10 mg tablet 10 mg PO DAILY daily 01/08/23 09/04/24 History pregabalin 150 mg capsule 150 mg PO DAILY daily 01/08/23 09/04/24 History roflumilast 250 mcg tablet 250 mcg PO DAILY guru 01/08/23 09/04/24 History tamsulosin 0.4 mg capsule 0.4 mg PO Q24H BPH 01/08/23 09/04/24 History metformin 500 mg tablet,extended 1,500 mg PO QHS D<M 03/22/24 09/04/24 History release 24hr (osmotic) gabapentin 300 mg capsule 300 mg PO QHS neuropathy 05/10/24 09/03/24 History esomeprazole magnesium 40 mg 40 mg PO DAILY daily 09/04/24 09/03/24 History capsule,delayed release insulin lispro protamine-lispro 15 unit subcut BIDCM diabetes 09/04/24 09/04/24 History 100 unit/mL (75-25) subcutaneous pen (Humalog Mix 75-25 KwikPen) metoprolol succinate 25 mg 25 mg PO DAILY hypertension 09/04/24 09/04/24 History tablet,extended release 24 hr prednisone 5 mg tablet 15 mg PO DAILY guru 09/04/24 Unknown History semaglutide 7 mg tablet (Rybelsus) 7 mg PO DAILY daily 09/04/24 09/04/24 History vitamin B complex (Complex B-100 1 tab PO DAILY daily 09/04/24 09/04/24 History tablet,extended release) cephalexin 500 mg capsule 500 mg PO 4XD 1 week #28 caps 09/11/24 Unknown Rx lorazepam 1 mg tablet 0.5 mg (1/2 x 1 mg) PO TID PRN 09/11/24 Unknown Rx anxiety #90 tabs sennosides 8.6 mg-docusate sodium 2 tab PO BID daily #0 tabs 09/11/24 Unknown Rx 50 mg tablet (Stimulant Laxative Plus) acetaminophen 500 mg tablet 1,000 mg (2 x 500 mg) PO Q8 PRN 09/25/24 Unknown Rx pain/fever #0 tabs lidocaine 5 % topical patch 1 patch topical DAILY #30 ea 09/25/24 Unknown Rx midodrine 5 mg tablet 10 mg (2 x 5 mg) PO TIDCM #180 tabs 10/06/24 Unknown Rx oxycodone 10 mg tablet 10 mg PO Q6H pain 1 month #1 TAB 10/16/24 Unknown Rx potassium chloride 20 mEq 20 meq PO BID #20 tabs 10/19/24 Unknown Rx tablet,extended release(part/cryst) Allergy/AdvReac Type Severity Reaction Status Date / Time No Known Allergies Allergy Verified 10/19/24 15:09 Family History Mother Cancer LUNG Heart disease Father Cancer lung Sister Cancer lung Heart disease Sister Cancer lung Sister Cancer lung Sister Colon cancer Surgical History Hx of CABG History of bronchoscopy Hx of biopsy History of lobectomy of lung Hx of oral surgery Hx of fracture of foot Hx of fracture of leg History of open heart surgery (05/08/15) Social History household members: none housing: other 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 Weakness. Constitutional Constitutional ED: Denies chills or fever(s) Eyes Eyes: Denies blurry vision ENT ENT ED: Denies ear pain Cardiovascular Cardiovascular: Denies chest pain Respiratory/Chest Respiratory/Chest: Reports dyspnea and other Details: Chronic dyspnea. Chronic O2. ; Denies cough Gastrointestinal Gastrointestinal: Denies abdominal pain Genitourinary Genitourinary ED: Denies dysuria or hematuria Musculoskeletal Musculoskeletal: Denies arthralgias Integumentary Denies abscess or Abrasions Psychiatric Psychiatric: Denies anxiety Endocrine Endocrinology: Denies cold intolerance Hematologic/Lymphatic Hematologic/Lymphatic: Reports none Allergic/Immunologic Allergic/Immunologic ED: Denies mouth swelling, tongue swelling or urticaria EXAM Physical Exam Narrative Exam Narrative: 69-year-old male sitting upright in bed. Vital signs stable afebrile on 3 L pulse ox 100% on room air no hypoxia on his oxygen. He is in no distress. H EENT exam pupils round reactive light. Motions are intact. Has a lazy eye on the right. Moist Drew membranes. Neck nontender JVD. No lymphadenopathy. Lungs coarse breath sounds bilaterally. Expiratory wheezes. No rales or rhonchi. Equal symmetrical. Abdomen soft he has diffuse abdominal tenderness he said that is chronic. He has had recent CTs of his abdomen. Showed no specific cause. There is no distention or obstruction no hernia. No palpable abdominal mass. Moving all 4 extremities. Nontender no edema normal strength. Back nontender. Neurologically he is awake and alert. Answering questions following commands. Const Vital Signs: 10/19/24 15:08 10/19/24 15:13 10/19/24 16:08 Temperature 97.3 F L Temperature Source Oral Pulse Rate 95 88 Respiratory Rate 20 H 18 Respiratory Effort Short of Breath Respiratory Pattern Normal Blood Pressure 113/63 128/67 H Blood Pressure Mean 79 87 Pulse Ox 100 99 Oxygen Delivery Method Nasal Cannula Nasal Cannula Oxygen Flow Rate (L/min) 3 3 10/19/24 17:00 10/19/24 18:00 Temperature Temperature Source Pulse Rate 87 88 Respiratory Rate 18 17 Respiratory Effort Respiratory Pattern Blood Pressure 117/69 119/59 L Blood Pressure Mean 85 79 Pulse Ox 97 98 Oxygen Delivery Method Room Air Room Air Oxygen Flow Rate (L/min) Positive well developed; Negative for obese, cachectic, contractures or unkempt General Appearance ED: well developed and NAD; Negative for unkempt, cachectic, contractures, cyanotic, diaphoretic or pallor Nutritional Appearance: Negative for cachectic or obese HEENT Reports moist mucous membranes Negative for trauma or tenderness Eyes PERRL and EOMs intact bilaterally Neck no lymphadenopathy, supple and no JVD Chest Wall inspection of chest normal and palpation of chest normal Resp normal respiratory effort and No clear to auscultation bilaterally Resp Narrative: Expiratory wheezes bilaterally. Auscultation: wheezes Cardio regular rate, regular rhythm, S1 normal heart sound, S2 normal heart sound and no murmurs GI normal to inspection, nondistended, normoactive bowel sounds, non-tender, non-distended and no masses Auscultation: normoactive bowel sounds Palpation: soft; Negative for tender, guarding, mass or rebound tenderness present Back/Spine no CVA tenderness General Back: Negative for CVA tenderness Cervical Spine: Negative for cervical spine tenderness Thoracic Spine / Upper Back: Negative for thoracic spinal tenderness or paraspinal muscle tenderness Lumbar Spine / Lower Back: Negative for lumbar spinal tenderness Extremity normal to inspection General Extremety ED: Negative for edema or tenderness General Extremity: Negative for edema Neuro oriented x3 and CN's II-XII intact bilaterally Sensorium / Orientation: alert; Negative for orientation impaired, lethargic or stuporous Motor Exam: strength 5/5 throughout; Negative for general weakness or strength abnormal Psych mental status grossly normal Appearance: Negative for unkempt Attitude: No agitated Mood & Affect: Negative for depressed, anxious or tearful Skin no rashes or lesions noted and no wounds General Skin Exam: Negative for jaundice or pallor Rashes: No rashes noted Trauma: Negative for abrasion Wounds: Negative for wounds noted MDM MDM MDM Narrative Medical decision making narrative: 69-year-old male with hypotension. States has had it before. Will undergo workup for possible dehydration, medication reaction infection versus other. Repeat exam patient is doing well at 7:33 PM. His current blood pressure is around 120/60. He is resting comfortably. His labs are typically his baseline. Has a large left upper lung mass. Will be given K-Dur here for his potassium of 2.9 and placed on potassium at home. Fluids. And follow-up with his primary care provider. History & Record Review Discussion w/independent historian: Patient Additional record(s) reviewed:: Prior inpatient record, Prior outpatient record, Prior ED visit and Prior labs Lab Data Lab results narrative: CBC shows a white count of 15.0. H&H is 7.9 and 26. Platelets 281. Electrolytes show sodium 132. Potassium 2.9. Anion gap is 10. BUN and creatinine are 17 and 0.9. Glucose 111. Liver functions are unremarkable. Lactic acid is normal at 1.5. UA shows no nitrates. No white or red cells. No bacteria. Chest x-ray shows a large left upper lung mass. With erosion in the posterior chest cavity. It has been seen on prior films and CT showed metastases. Labs: Laboratory Results - last 24 hr 10/19/24 10/19/24 16:32 17:20 WBC 15.0 H RBC 3.07 L Hgb 7.9 L Hct 26.5 L MCV 86.3 MCH 25.7 L MCHC 29.8 L RDW Std Deviation 52.3 H RDW Coeff of Jaquan 16.6 H Plt Count 281 MPV 8.9 Immature Gran % (Auto) 1.000 H Neut % (Auto) 84.5 H Lymph % (Auto) 8.8 L Mcdonald % (Auto) 5.4 Eos % (Auto) 0.2 Baso % (Auto) 0.1 Absolute Neuts (auto) 12.6 H Absolute Lymphs (auto) 1.32 Nucleated RBC % 0 Sodium 132 L Potassium 2.9 L Chloride 93 L Carbon Dioxide 28.6 Anion Gap 10 BUN 17 Creatinine 0.90 Estim Creat Clear Calc 78.11 Est GFR (MDRD) Non-Af 93 BUN/Creatinine Ratio 19.2 Glucose 111 H Lactic Acid 1.5 Calcium 12.2 H Total Bilirubin 0.30 AST 28 ALT 13 Alkaline Phosphatase 109 Total Protein 5.9 Albumin 2.9 L Globulin 3.1 Albumin/Globulin Ratio 0.9 Urine Color Yellow Urine Clarity Clear Urine pH 6.5 Ur Specific Colbert 1.015 Urine Protein 15 H Urine Glucose (UA) Normal Urine Ketones Negative Urine Occult Blood Negative Urine Nitrite Negative Urine Bilirubin Negative Urine Urobilinogen Normal Ur Leukocyte Esterase Negative Urine RBC 0-5 SEEN Urine WBC 0-5 SEEN Ur Squamous Epith Cells 0-5 SEEN Urine Bacteria 0 SEEN Urine Mucus 0 SEEN Radiography Chest X-Ray - ED: 2 View, Read by ED Physician, Read by Radiologist, Normal, Heart, Chronic Changes and - (Left upper lung mass. Concern for bony erosion. Seen on prior x-rays and chest CT.) Diagnostic Testing: Clinical Impression(s) from Imaging Studies Chest X-Ray 10/19/24 16:10 IMPRESSION: Pulmonary findings as above. Reading Location: [facility] Chest x-ray, 2 views, AP and lateral, interpreted by myself and radiologist. Shows a large left upper lung mass. Seen on prior films. Rhythm Strip Rhythm Strip: Sinus Rhythm Rate: 88 Ectopy: None EKG Initial EKG: Attestation: I personally reviewed and interpreted this EKG as follows: Interpretation: Sinus Rhythm and No Acute Injury Pattern Comments: Normal sinus rhythm rate 88 no acute signs of TN or ischemia. Discharge Plan Triage Chief Complaint: Hypotension ED Provider: Carroll Celeste Dx/Rx/DC Orders Clinical Impression: Acute hypotension, Acute hypokalemia, History of lung cancer, History of COPD, Chronic anemia, History of diabetes mellitus Instructions: ED Low Blood Pressure, All Causes, ED Hypokalemia Prescriptions: New potassium chloride 20 mEq tablet,ER particles/crystals 20 meq PO BID Qty: 20 0RF No Action gabapentin 300 mg capsule 300 mg PO QHS paroxetine HCl 10 mg tablet 10 mg PO DAILY pregabalin 150 mg capsule 150 mg PO DAILY roflumilast 250 mcg tablet 250 mcg PO DAILY tamsulosin 0.4 mg capsule 0.4 mg PO Q24H albuterol sulfate 2.5 mg /3 mL (0.083 %) solution for nebulization 2.5 mg inhalation DAILY albuterol sulfate 90 mcg/actuation HFA aerosol inhaler 2 puff INHALATION PRN PRN (Reason: shortness of breath or wheezing) aspirin 81 mg tablet,delayed release (DR/EC) 81 mg PO DAILY atorvastatin 20 mg tablet 20 mg PO QHS dapagliflozin propanediol [Farxiga] 5 mg tablet 5 mg PO DAILY Trelegy Ellipta 100-62.5-25 mcg blister with device 1 inh INHALATION DAILY metformin 500 mg tablet extended release 24hr 1,500 mg PO QHS Patient Comments: TAKE 2 tabs in the AM and One tab in PM Rx Instructions: TAKE 2 tabs in the AM and One tab in PM esomeprazole magnesium 40 mg capsule,delayed release(DR/EC) 40 mg PO DAILY metoprolol succinate 25 mg tablet extended release 24 hr 25 mg PO DAILY insulin lispro protamin-lispro [Humalog Mix 75-25 KwikPen] 100 unit/mL (75-25) insulin pen 15 unit subcut BIDCM Rybelsus 7 mg tablet 7 mg PO DAILY prednisone 5 mg tablet 15 mg PO DAILY Complex B-100 Tablet Extended Release 1 tab PO DAILY sennosides-docusate sodium [Stimulant Laxative Plus] 8.6-50 mg Tablet 2 tab PO BID Qty: 0 0RF lorazepam 1 mg tablet 0.5 mg PO TID PRN (Reason: anxiety) Qty: 90 0RF cephalexin 500 mg capsule 500 mg PO 4XD 7 Days Qty: 28 0RF acetaminophen 500 mg Tablet 1,000 mg PO Q8 PRN (Reason: pain/fever) Qty: 0 0RF lidocaine 5 % Adhesive Patch,Medicated 1 patch topical DAILY Qty: 30 0RF Protocol: *Topical Application Instructions APPLICATION INSTRUCTIONS: to back. Rx Instructions: to upper back. midodrine 5 mg tablet 10 mg PO TIDCM Qty: 180 0RF oxycodone 10 mg tablet 10 mg PO Q6H 30 Days Qty: 1 0RF Rx Instructions: Per Efren Hollingsworth NP Primary Care Provider: Desiree Saleh Referrals: Desiree Saleh MD [Primary Care Provider] - 3-5 Days Activity Restrictions/Additional Instructions: Your potassium is low I wrote you to be taking Cater twice a day for the next 10 days and have your potassium rechecked. Plenty of fluids and rest Follow-up with your doctor to ensure you are improving. Print Language: Cook Islander Disposition Disposition: Home, Self Care
[2024-10-19] MEDS: 0.9% Normal Saline (1000mL) 1,000 ML 1000 ML IV (16:00)
--- NOTE | 2024-10-19 16:10 | RAD_ITS ---
PROCEDURE: CHEST PA AND LATERAL 10/19/2024 REASON FOR EXAM: HYPOTENSION / COPD TECHNIQUE: CHEST PA AND LATERAL COMPARISON: 09/19/24 FINDINGS: Left apical mass. Bilateral hilar prominence which may represent adenopathy. Superimposed infection can not be excluded. Prior sternotomy. RAD/Chest PA and Lateral IMPRESSION: Pulmonary findings as above. Reading Location: [id number]
[2024-10-19 16:45] LABS: Hematocrit 26.5 % (40-54); Hemoglobin 7.9 g/dL (13.0-16.5); Immature Granulocytes Count 0.150 X10^3/uL (0.0-0.0); Mean Corp Hgb Conc 29.8 g/dL (32-36); Mean Corpuscular Volume 86.3 fL (80-94); Mean Platelet Vol. 8.9 fl (6.2-12.0); NRBC Flagged by Analyzer 0 % (0-5); Platelet Count 281 K/mm3 (150-450); RBC Distribution Width CV 16.6 % (11.6-14.6); RBC Distribution Width SD 52.3 fl (35.1-43.9); Red Blood Count 3.07 M/mm3 (4.6-6.2); White Blood Count 15.0 K/mm3 (4.4-11.0)
[2024-10-19 17:07] LABS: AST(SGOT) 28 U/L (<=37); Alanine Aminotransfer ALT/SGPT 13 U/L (<=46); Albumin, Serum 2.9 g/dL (3.4-4.8); Alkaline Phosphatase 109 U/L (40-129); Anion Gap 10 (5-15); BUN 17 mg/dL (4-19); BUN/Creat Ratio 19.2 RATIO (10-20); Calcium,Total 12.2 mg/dL (7.6-11.0); Carbon Dioxide 28.6 mmol/L (21.0-32.0); Chloride 93 mmol/L (98-108); Estimated Creatinine Clearance 78.11 ml/min (50-250); Globulin 3.1 g/dL (2.2-4.2); Glucose 111 mg/dL (70-99); Potassium 2.9 mmol/L (3.3-5.1)
[2024-10-19 17:27] LABS: Mucous, Urine 0 SEEN /hpf (<or=2+)
[2024-10-19 17:30] LABS: Color, Urine Yellow (Yellow); Glucose, Dipstick Normal (Normal); Ketone-Dipstick Negative (Negative); Leukocyte Esterase-Dipstick Negative /ul (Negative); Nitrite-Dipstick Negative (Negative); Occult Blood-Urine Negative /ul (Negative); Protein-Dipstick 15 mg/dl (Negative); Specific Gravity, Urine 1.015 (1.002-1.030); Urine Bilirubin Dipstick Negative (Negative)
[2024-10-19 18:07] LABS: Red Blood Cells-Urine 0-5 SEEN /hpf (0-5); Squamous Epithelial Cells - UA 0-5 SEEN /hpf (0-5)
[2024-10-19] MEDS: Potassium Chloride Oral Tablet 20 MEQ 60 MEQ PO (19:42)
== END 2024-10-19 21:30 | disposition home or self-care (01) ==
PROVIDERS: Emergency Provider Emergency Medicine; PCP Internal Medicine; Referring Provider Emergency Medicine; Visit Provider Emergency Medicine
DX: I95.9 Hypotension, unspecified (principal); J44.9 Chronic obstructive pulmonary disease, unspecified; E11.9 Type 2 diabetes mellitus without complications; Z87.891 Personal history of nicotine dependence; E87.6 Hypokalemia; I25.10 Atherosclerotic heart disease of native coronary artery without angina pectoris; E78.00 Pure hypercholesterolemia, unspecified; I10 Essential (primary) hypertension; Z86.718 Personal history of other venous thrombosis and embolism; Z99.81 Dependence on supplemental oxygen; I73.9 Peripheral vascular disease, unspecified; D64.9 Anemia, unspecified; R06.02 Shortness of breath; Z85.118 Personal history of other malignant neoplasm of bronchus and lung
CPT/HCPCS: 71046; 80053; 81001; 83605; 85025; 93005; 96360; 96361; 99285; A4216

== ENCOUNTER 2024-10-26 16:57 | Inpatient (IN) | payer MEDICARE, MEDICAID, SELFPAY ==
[2024-10-26] VITALS (9 sets, daily range): BP systolic 97–131; BP diastolic 59–78; PULSE 90–112; RESP 16–26; TEMP 36.2–36.5; O2SAT 93–100; BMI 21.2; BMI 21.1
--- NOTE | 2024-10-26 17:08 | CT_ITS ---
PROCEDURE: CTA CHEST W/WO CONTRAST 10/26/2024 REASON FOR EXAM: RULE OUT PE TECHNIQUE: CTA CHEST W/WO CONTRAST Multiplanar Sagittal and Coronal images were obtained. CONTRAST: Isovue 370 VOLUME: 100 mL One or more dose reduction techniques were used (e.g., Automated exposure control, adjustment of the mA and/or kV according to patient size, use of iterative reconstruction technique). RADIATION DOSE SUMMARY: CTDlvol: 10.3 mGy DLP: 937 mGycm COMPARISON: CT chest with and without contrast 09/19/2024. FINDINGS: Lymph nodes: Redemonstration of bulky left hilar lymphadenopathy which is also more prominent when compared to prior study. Additional multiple enlarged mediastinal lymph nodes are also visualized. Redemonstration of large necrotic left axillary lymphadenopathy measuring 5.9 x 3.7 cm. Multiple enlarged right hilar lymph nodes are also again visualized. Heart: No cardiomegaly. There is atherosclerotic calcification of thoracic aorta and its branches. RV/LV Diameter Ratio: No definite right heart strain. Thoracic Aorta: Diffuse atherosclerotic calcification of thoracic aorta. Pulmonary Vessels: Main pulmonary arteries are enlarged consistent with pulmonary arterial hypertension. There is no large filling defect within right pulmonary trunk. Evaluation of subsegmental and segmental pulmonary arteries is limited due to suboptimal bolus. There is significant mass effect with narrowing of left upper lobe pulmonary arteries from large left upper lobe mass. Lungs and Airways: Interval increase in size of previously seen left upper lobe mass extending into the left suprahilar region measuring 10.5 x 7.1 cm previously measured 7.3 x 6.8 cm when measured in a similar fashion. Left upper lobe pass extend and encased left pulmonary arteries with mass effect. Additionally there is near complete occlusion of left upper lobe bronchus by this mass (series 284, image 185). This mass extends to lateral left chest wall with erosion of left 2nd to 5th rib. Multiple bilateral pulmonary nodules/masses consistent with underlying metastatic disease for example right upper lobe pulmonary nodule measuring 1.6 cm and left lower lobe pulmonary nodule measuring 1.4 cm. There is extensive bilateral emphysematous changes. Pleura: No pleural effusion. No pneumothorax. Upper Abdomen: Partially visualized large left adrenal mass measuring 2.2 x 3.2 cm. Bones: Erosion of left 2nd to 5th rib is again visualized. Compression deformity of T2 and T12 vertebral bodies. Redemonstration of pleural-based nodularity along right posterolateral lung region at level of T6 and T7 level with large metastatic deposit accompanied with destructive changes and erosion of posterior element of midthoracic spine extending from T5-T7. There is epidural extension of this mass into right aspect of spinal cord. CT/CTA Chest W/WO Contrast IMPRESSION: 1. No large central filling defect to suggest pulmonary embolism. There is per sistent encasement and narrowing of left main and segmental pulmonary arteries from large left upper lobe mass extending into the hilar region. 2. Interval increase in size of previously seen large left upper lobe mass exte nding into the left suprahilar region and laterally to the chest wall with erosion of multiple ribs as mentioned above. 3. Multiple bilateral pulmonary nodules as well as enlarged mediastinal and axi llary lymph node consistent with underlying metastatic disease. 4. There is redemonstration of pleural-based nodularity along right posterolat eral lung region at level of T6 and T7 level with large metastatic deposit accompanied with destructive changes and erosion of po sterior element of midthoracic spine extending from T5-T7. There is epidural extension of this mass into right aspect of spina l cord. These findings are more prominent when compared to prior and are concerning for spinal cord compression. MRI spine is recommended for better characterization. 5. Large left adrenal mass measuring 3.3 cm concerning for metastatic disease. Red Alert: The critical information above was relayed directly by me by telephone to Maite Menjivar on 10/26/2024 at 7:38 pm with readback verification. Reading Location: [id number]
--- NOTE | 2024-10-26 17:13 | CT_ITS ---
PROCEDURE: ABDOMEN/PELVIS W IV CONT ONLY 10/26/2024 REASON FOR EXAM: ABDOMINAL PAIN TECHNIQUE: ABDOMEN/PELVIS W IV CONT ONLY Coronal and Sagittal reconstruction series were provided. CONTRAST: Isovue 370 VOLUME: 100 mL One or more dose reduction techniques were used (e.g., Automated exposure control, adjustment of the mA and/or kV according to patient size, use of iterative reconstruction technique. RADIATION DOSE SUMMARY: CTDlvol: 10 mGy DLP: 937 mGycm COMPARISON: 09/19/2024 CT. FINDINGS: Bilateral lung base pulmonary nodules compatible with metastatic disease. Small fat containing umbilical hernia. Degenerative changes of the spine. Stable mild superior endplate compression deformity of T12. Infrarenal abdominal aortic fusiform aneurysm measures 4.2 cm, previously 4.0 cm. Stable bilateral common iliac artery aneurysms which measure 2.0 cm in the right and 3.0 cm on the left. Severe atherosclerosis. No intra-abdominal adenopathy. Stable left adrenal 2.8 cm nodule. Stable hypodensity adjacent to the falciform ligament likely representing focal fatty infiltration. The gallbladder, pancreas, spleen are unremarkable. Symmetric enhancement of the bilateral kidneys. No hydroureteronephrosis. The urinary bladder is unremarkable. Normal prostate. Normal caliber large and small bowel. CT/Abdomen/Pelvis W IV Cont ONLY IMPRESSION: Mildly increased size of an infrarenal abdominal aortic aneurysm. Stable bilateral common iliac artery aneurysms. Bilateral lower lobe metastatic disease. Stable left adrenal nodule. Reading Location: [id number]
[2024-10-26 17:33] LABS: Hematocrit 30.2 % (40-54); Hemoglobin 9.1 g/dL (13.0-16.5); Immature Granulocytes Count 0.190 X10^3/uL (0.0-0.0); Mean Corp Hgb Conc 30.1 g/dL (32-36); Mean Corpuscular Volume 86.5 fL (80-94); Mean Platelet Vol. 8.9 fl (6.2-12.0); NRBC Flagged by Analyzer 0 % (0-5); Platelet Count 297 K/mm3 (150-450); RBC Distribution Width CV 17.2 % (11.6-14.6); RBC Distribution Width SD 54.4 fl (35.1-43.9); Red Blood Count 3.49 M/mm3 (4.6-6.2); White Blood Count 19.5 K/mm3 (4.4-11.0)
[2024-10-26 17:49] LABS: SITE Not entered; VBG BASE EXCESS 11 mmol/L (-1.0-3.5); VBG PO2 60 mmHg (25-40); VBG SO2 92 % (50-70); VBG TCO2 36 mmol/L (23-33)
[2024-10-26 18:15] LABS: AST(SGOT) 17 U/L (<=37); Alanine Aminotransfer ALT/SGPT 24 U/L (<=46); Albumin, Serum 2.8 g/dL (3.4-4.8); Alkaline Phosphatase 118 U/L (40-129); Anion Gap 11 (5-15); BUN 15 mg/dL (4-19); BUN/Creat Ratio 13.9 RATIO (10-20); Bilirubin, Direct 0.18 mg/dL (0.00-0.30); Calcium,Total 14.1 mg/dL (7.6-11.0); Carbon Dioxide 28.6 mmol/L (21.0-32.0); Chloride 98 mmol/L (98-108); Globulin 3.7 g/dL (2.2-4.2); Glucose 136 mg/dL (70-99); Potassium 3.5 mmol/L (3.3-5.1); Pro- Brain NATRIURETIC PEPTIDE 1693 pg/mL (<=900); Troponin T High Sensitivity 86 ng/L (<=22)
--- NOTE | 2024-10-26 18:25 | RAD_ITS ---
PROCEDURE: CHEST 1 VIEW (PORTABLE) 10/26/2024 REASON FOR EXAM: CHEST PAIN TECHNIQUE: Frontal view of the chest. COMPARISON: Chest x-ray 10/19/2024 FINDINGS: Hardware: Median sternotomy wires with monitoring electrodes overlying chest wall. Heart: Heart size is moderately enlarged. Lungs: Opacity within left upper lung consistent with left apical mass. Redemonstration of bilateral hilar prominence which again could be related to lymphadenopathy. Prominent bilateral pulmonary vasculature. Bones: Degenerative changes are identified within the thoracic spine. Other: None RAD/Chest 1 View (Portable) IMPRESSION: 1. Left apical mass with prominent bilateral hilar region likely representing u nderlying lymphadenopathy. No definite interval change since prior study. 2. Bilateral small pleural effusions. Reading Location: [id number]
[2024-10-26] MEDS: fentaNYL 100 MCG/2 ML Ampul 50 MCG IV ×2 (18:39→20:02)
--- NOTE | 2024-10-26 19:39 | CM.ED ---
Social work At about 1600, prior to patient's arrival to [facility] ED, SW received call from [facility] SAUL Mendiola (ph: [phone]). Marlena expressed patient would be on the way to [facility] ED soon. Per Marlena, patient's SNF referral to [facility] today was canceled due to patient's acute health concerns. Patient reportedly needs hospice care, but patient reportedly does not want hospice. Marlena stated patient is also struggling to understand that patient's insurance denying SNF at one hospitalization does not automatically mean patient's insurance will deny it every time if patient has acute needs that can be met by SNFs. This SW to remain available as needed for patient and/or patient's family. Ashlie Seaman, TUFTER, LADDER OPERATOR
[2024-10-26 20:04] LABS: Troponin T High Sens 2 HR 82 ng/L (<=22)
--- NOTE | 2024-10-26 20:43 | ED.RN ---
pt states he does not know medication list
--- NOTE | 2024-10-26 21:47 | ED.VIS.CHEST ---
HPI History of Present Illness Chief Complaint: Chest Pain Narrative Narrative: Patient is a 69-year-old male presenting to the emergency department for multiple complaints including chest pain and shortness of breath. Patient has an extensive past medical history as below including lung cancer status post resection, COPD, diabetes, CAD. Patient is an extremely poor historian but states that over the past few weeks he has developed intermittent chest pain that he states is all over. States he is also feeling short of breath. He does wear 3 L nasal cannula at baseline. States that he is having generalized abdominal pain as well with some nausea with no vomiting. Denies recent fall. Denies fever or chills. Denies diarrhea, dysuria or hematuria. [facility] Medical History Anemia PAD (peripheral artery disease) Kidney disease Sleep apnea Alcohol use Excessive bleeding History of echocardiogram History of stress test Cardiology follow-up encounter Chest pain Vitamin D deficiency Left adrenal mass CAD (coronary artery disease) Blind Cancer Depression Anxiety Diabetes Prostate disease DVT (deep venous thrombosis) High cholesterol Easy bruising Umbilical hernia Neuropathy Injury of head and neck Syncope Former smoker On home oxygen therapy CPAP (continuous positive airway pressure) dependence COPD (chronic obstructive pulmonary disease) Shortness of breath on exertion History of edema Hypertension Home Medications ?Medication ?Instructions ?Recorded ?Last Taken ?Type albuterol sulfate 2.5 mg/3 mL 2.5 mg inhalation DAILY shortness 01/08/23 09/03/24 History (0.083 %) solution for nebulization of breath albuterol sulfate 90 mcg/actuation 2 puff inhalation PRN PRN 01/08/23 05/30/24 History aerosol inhaler shortness of breath or wheezing aspirin 81 mg tablet,delayed 81 mg PO DAILY general health 01/08/23 09/04/24 History release atorvastatin 20 mg tablet 20 mg PO QHS hyperlipidema 01/08/23 09/03/24 History dapagliflozin propanediol 5 mg 5 mg PO DAILY daily 01/08/23 09/03/24 History tablet (Farxiga) fluticasone fur. 100 mcg-umeclid 1 inh inhalation DAILY daily 01/08/23 09/03/24 History 62.5 mcg-vilant 25 mcg inhalat.powder (Trelegy Ellipta) paroxetine HCl 10 mg tablet 10 mg PO DAILY daily 01/08/23 09/04/24 History pregabalin 150 mg capsule 150 mg PO DAILY daily 01/08/23 09/04/24 History roflumilast 250 mcg tablet 250 mcg PO DAILY guru 01/08/23 09/04/24 History tamsulosin 0.4 mg capsule 0.4 mg PO Q24H BPH 01/08/23 09/04/24 History metformin 500 mg tablet,extended 1,500 mg PO QHS D<M 03/22/24 09/04/24 History release 24hr (osmotic) gabapentin 300 mg capsule 300 mg PO QHS neuropathy 05/10/24 09/03/24 History esomeprazole magnesium 40 mg 40 mg PO DAILY daily 09/04/24 09/03/24 History capsule,delayed release insulin lispro protamine-lispro 15 unit subcut BIDCM diabetes 09/04/24 09/04/24 History 100 unit/mL (75-25) subcutaneous pen (Humalog Mix 75-25 KwikPen) metoprolol succinate 25 mg 25 mg PO DAILY hypertension 09/04/24 09/04/24 History tablet,extended release 24 hr prednisone 5 mg tablet 15 mg PO DAILY guru 09/04/24 Unknown History semaglutide 7 mg tablet (Rybelsus) 7 mg PO DAILY daily 09/04/24 09/04/24 History vitamin B complex (Complex B-100 1 tab PO DAILY daily 09/04/24 09/04/24 History tablet,extended release) cephalexin 500 mg capsule 500 mg PO 4XD 1 week #28 caps 09/11/24 Unknown Rx lorazepam 1 mg tablet 0.5 mg (1/2 x 1 mg) PO TID PRN 09/11/24 Unknown Rx anxiety #90 tabs sennosides 8.6 mg-docusate sodium 2 tab PO BID daily #0 tabs 09/11/24 Unknown Rx 50 mg tablet (Stimulant Laxative Plus) acetaminophen 500 mg tablet 1,000 mg (2 x 500 mg) PO Q8 PRN 09/25/24 Unknown Rx pain/fever #0 tabs lidocaine 5 % topical patch 1 patch topical DAILY #30 ea 09/25/24 Unknown Rx midodrine 5 mg tablet 10 mg (2 x 5 mg) PO TIDCM #180 tabs 10/06/24 Unknown Rx oxycodone 10 mg tablet 10 mg PO Q6H pain 1 month #1 TAB 10/16/24 Unknown Rx potassium chloride 20 mEq 20 meq PO BID #20 tabs 10/19/24 Unknown Rx tablet,extended release(part/cryst) miscellaneous medical supply 1 ea miscellaneous ONCE #1 ea 10/24/24 Unknown Rx Allergy/AdvReac Type Severity Reaction Status Date / Time No Known Allergies Allergy Verified 10/26/24 17:02 Family History Mother Cancer LUNG Heart disease Father Cancer lung Sister Cancer lung Heart disease Sister Cancer lung Sister Cancer lung Sister Colon cancer Surgical History Hx of CABG History of bronchoscopy Hx of biopsy History of lobectomy of lung Hx of oral surgery Hx of fracture of foot Hx of fracture of leg History of open heart surgery (05/08/15) Social History household members: none housing: other 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 status: retired current occupation: [employer] Smoking Status: Former smoker quit date: 03/15/15 pack-years: 120 alcohol intake: current alcohol intake frequency: a few times a month Alcohol type: beer substance use type: does not use what type of physical activity do you participate in: none seatbelt use: always do you feel safe at home: Yes ROS ROS ED ROS Narrative see HPI EXAM Physical Exam Narrative Exam Narrative: Vital signs: Reviewed General: Alert and orientedx3. No acute distress. Chronically ill-appearing HEENT: Head is normocephalic and atraumatic, sinuses nontender, pupils equal round and reactive. Nares are patent. Oropharynx and throat exams normal. Neck: Supple without lymphadenopathy nontender Cardiovascular: Tachycardic, regular rhythm. No murmurs. No rubs or gallops. Normal S1 and S2 Respiratory: Rhonchorous lung sounds in all lung haque. On 3 L NC which is baseline. No wheezing. Abdominal: Soft with generalized tenderness throughout. Normal bowel sounds. No guarding or rebound. Nonsurgical abdomen Extremities: No tenderness. No bruising. Normal range of motion. Normal sensation. Skin: No rash or redness. Neurological: Cranial nerves II through XII are grossly intact. Normal strength and sensation. The rest of the physical exam is unremarkable Const Vital Signs: 10/26/24 16:57 10/26/24 17:28 10/26/24 17:28 Temperature 97.7 F L Temperature Source Oral Pulse Rate 112 H Respiratory Rate 24 H Respiratory Effort Short of Breath Blood Pressure 97/78 Blood Pressure Mean 84 Pulse Ox 100 Oxygen Delivery Method Nasal Cannula Nasal Cannula Oxygen Flow Rate (L/min) 2 3 10/26/24 17:29 10/26/24 17:29 10/26/24 18:00 Temperature Temperature Source Pulse Rate 99 92 Respiratory Rate 26 H 20 H Respiratory Effort Blood Pressure 105/59 L Blood Pressure Mean 74 Pulse Ox 96 96 Oxygen Delivery Method Nasal Cannula Nasal Cannula Oxygen Flow Rate (L/min) 2 3 10/26/24 19:00 10/26/24 20:00 10/26/24 21:00 Temperature Temperature Source Pulse Rate 90 95 96 Respiratory Rate 20 H 17 16 Respiratory Effort Blood Pressure 101/61 114/63 131/66 H Blood Pressure Mean 74 80 87 Pulse Ox 93 97 96 Oxygen Delivery Method Nasal Cannula Nasal Cannula Nasal Cannula Oxygen Flow Rate (L/min) 3 3 3 10/26/24 22:00 Temperature Temperature Source Pulse Rate 95 Respiratory Rate 25 H Respiratory Effort Blood Pressure 118/62 Blood Pressure Mean 80 Pulse Ox 97 Oxygen Delivery Method Nasal Cannula Oxygen Flow Rate (L/min) 3 MDM MDM MDM Narrative Medical decision making narrative: Patient is a 69-year-old male presenting to the emergency department for chest pain and shortness of breath. Patient was seen and examined. He arrives tachycardic at 112 with respirations of 24. He is on his 3 L nasal cannula saturating 100%. Initial BP of 97/78. Differential includes but is not limited to: CHF, ACS, pneumonia, COPD exacerbation, PE, sepsis EKG shows sinus tachycardia at a rate of 119. There is a left posterior fascicular block. No arrhythmia. CBC with a leukocytosis of 19.5 and anemia of 9.1. Normal lactate. CMP with hypercalcemia of 14.1. BNP elevated at 1693, no baseline to compare to. Initial troponin of 86 down to reflex of 82. Given the elevated BNP, chose not to give fluid bolus for hypercalcemia. CTA chest with no PE. There are chronic changes that can be seen in the CT report including a mass that is encasing the pulmonary arteries as well as metastatic disease. They also note redemonstration of a nodule around T6 and T7 that is showing erosion into the spine with epidural extension into the spinal cord. This appears more prominent when compared to prior imaging. MRI was recommended. Patient was reevaluated. He is alert and oriented x 3 but is delirious intermittently. He is unable to tell me if hes every received treatment for his cancer or any pertinent medical history. When asked a question, will give differing answers intermittently. He is unable to repeat questions I ask back to me. I do not think he has capacity to make his own medical decisions. I spoke to the patient's son, Isaiah Farrell, to discuss plan of care given the findings. Did speak with both him and about the patients status currently and the spinal findings. Discussed the mets and the possibility of going to [facility] for oncologic treatment with chemoradiation. They state that they were told last time he was here and had the same findings of the spine, he was told he would not be a surgical candidate. They were notified that if he has no intervention on this he could become paralyzed. They understand this. Extensive discussion over the phone about goals of care. Son did speak to the patient's other son who then together decided for the patient to be DNR comfort care. This was obtained over the phone with two-physician consent with Dr. Patel. Will admit for hospice and palliative care consults. Impression Chest pain Hypercalcemia CHF exacerbation Leukocytosis History & Record Review Discussion w/independent historian: Patient and Family Lab Data Attestation: I reviewed the patient's lab results. Labs: Laboratory Results - last 24 hr 10/26/24 10/26/24 10/26/24 17:00 17:00 17:00 WBC 19.5 H RBC 3.49 L Hgb 9.1 L Hct 30.2 L MCV 86.5 MCH 26.1 L MCHC 30.1 L RDW Std Deviation 54.4 H RDW Coeff of Jaquan 17.2 H Plt Count 297 MPV 8.9 Immature Gran % (Auto) 1.000 H Neut % (Auto) 85.0 H Lymph % (Auto) 9.2 L [place] % (Auto) 4.5 Eos % (Auto) 0.2 Baso % (Auto) 0.1 Absolute Neuts (auto) 16.6 H Absolute Lymphs (auto) 1.79 Nucleated RBC % 0 Sodium 138 Potassium 3.5 Chloride 98 Carbon Dioxide 28.6 Anion Gap 11 BUN 15 Creatinine 1.05 Est GFR (MDRD) Non-Af 77 BUN/Creatinine Ratio 13.9 Glucose 136 H Lactic Acid 1.4 Calcium 14.1 H* Total Bilirubin 0.33 Cancelled Direct Bilirubin 0.18 Cancelled AST 17 ALT Alkaline Phosphatase Troponin T High Sens Troponin T Hi Sens 2 Hr Troponin T Hi Sens 4Hr NT pro BNP II Total Protein Albumin Globulin 10/26/24 10/26/24 10/26/24 17:00 17:00 17:00 WBC RBC Hgb Hct MCV MCH MCHC RDW Std Deviation RDW Coeff of Jaquan Plt Count MPV Immature Gran % (Auto) Neut % (Auto) Lymph % (Auto) [place] % (Auto) Eos % (Auto) Baso % (Auto) Absolute Neuts (auto) Absolute Lymphs (auto) Nucleated RBC % Sodium Potassium Chloride Carbon Dioxide Anion Gap BUN Creatinine Est GFR (MDRD) Non-Af BUN/Creatinine Ratio Glucose Lactic Acid Calcium Total Bilirubin Direct Bilirubin AST Cancelled ALT 24 Cancelled Alkaline Phosphatase 118 Cancelled Troponin T High Sens 86 H* D Troponin T Hi Sens 2 Hr Troponin T Hi Sens 4Hr NT pro BNP II 1693 H Total Protein Albumin Globulin 10/26/24 10/26/24 10/26/24 17:00 17:00 17:00 WBC RBC Hgb Hct MCV MCH MCHC RDW Std Deviation RDW Coeff of Jaquan Plt Count MPV Immature Gran % (Auto) Neut % (Auto) Lymph % (Auto) [place] % (Auto) Eos % (Auto) Baso % (Auto) Absolute Neuts (auto) Absolute Lymphs (auto) Nucleated RBC % Sodium Potassium Chloride Carbon Dioxide Anion Gap BUN Creatinine Est GFR (MDRD) Non-Af BUN/Creatinine Ratio Glucose Lactic Acid Calcium Total Bilirubin Direct Bilirubin AST ALT Alkaline Phosphatase Troponin T High Sens Troponin T Hi Sens 2 Hr Troponin T Hi Sens 4Hr NT pro BNP II Cancelled Total Protein 6.5 Cancelled Albumin 2.8 L Cancelled Globulin 3.7 10/26/24 10/26/24 10/26/24 17:00 19:04 21:10 WBC RBC Hgb Hct MCV MCH MCHC RDW Std Deviation RDW Coeff of Jaquan Plt Count MPV Immature Gran % (Auto) Neut % (Auto) Lymph % (Auto) [place] % (Auto) Eos % (Auto) Baso % (Auto) Absolute Neuts (auto) Absolute Lymphs (auto) Nucleated RBC % Sodium Potassium Chloride Carbon Dioxide Anion Gap BUN Creatinine Est GFR (MDRD) Non-Af BUN/Creatinine Ratio Glucose Lactic Acid Calcium Total Bilirubin Direct Bilirubin AST ALT Alkaline Phosphatase Troponin T High Sens Troponin T Hi Sens 2 Hr 82 H* Troponin T Hi Sens 4Hr 84 H* NT pro BNP II Total Protein Albumin Globulin Cancelled ABG Data ABG results: ABG 10/26/24 17:43 Specimen Type FRANCY Sample Site Not entered VBG pH 7.48 H VBG pO2 60 H VBG HCO3 35 H VBG Total CO2 36 H VBG O2 Sat (Calc) 92 H VBG Base Excess 11 H POC Mix VBG pCO2 Pt Tmp 46.7 O2 Delivery Device Not entered Radiography Diagnostic Testing: Clinical Impression(s) from Imaging Studies Chest CTA 10/26/24 17:08 IMPRESSION: 1. No large central filling defect to suggest pulmonary embolism. There is persistent encasement and narrowing of left main and segmental pulmonary arteries from large left upper lobe mass extending into the hilar region. 2. Interval increase in size of previously seen large left upper lobe mass extending into the left suprahilar region and laterally to the chest wall with erosion of multiple ribs as mentioned above. 3. Multiple bilateral pulmonary nodules as well as enlarged mediastinal and axillary lymph node consistent with underlying metastatic disease. 4. There is redemonstration of pleural-based nodularity along right posterolateral lung region at level of T6 and T7 level with large metastatic deposit accompanied with destructive changes and erosion of posterior element of midthoracic spine extending from T5-T7. There is epidural extension of this mass into right aspect of spinal cord. These findings are more prominent when compared to prior and are concerning for spinal cord compression. MRI spine is recommended for better characterization. 5. Large left adrenal mass measuring 3.3 cm concerning for metastatic disease. Red Alert: The critical information above was relayed directly by me by telephone to Maite Menjivar on 10/26/2024 at 7:38 pm with readback verification. Reading Location: [facility] Abdomen/Pelvis CT 10/26/24 17:13 IMPRESSION: Mildly increased size of an infrarenal abdominal aortic aneurysm. Stable bilateral common iliac artery aneurysms. Bilateral lower lobe metastatic disease. Stable left adrenal nodule. Reading Location: [id number] Chest X-Ray 10/26/24 18:25 IMPRESSION: 1. Left apical mass with prominent bilateral hilar region likely representing underlying lymphadenopathy. No definite interval change since prior study. 2. Bilateral small pleural effusions. Reading Location: [id number] Discharge Plan Triage Chief Complaint: Chest Pain ED Provider: Maite Menjivar Dx/Rx/DC Orders Prescriptions: No Action gabapentin 300 mg capsule 300 mg PO QHS paroxetine HCl 10 mg tablet 10 mg PO DAILY pregabalin 150 mg capsule 150 mg PO DAILY roflumilast 250 mcg tablet 250 mcg PO DAILY tamsulosin 0.4 mg capsule 0.4 mg PO Q24H albuterol sulfate 2.5 mg /3 mL (0.083 %) solution for nebulization 2.5 mg inhalation DAILY albuterol sulfate 90 mcg/actuation HFA aerosol inhaler 2 puff INHALATION PRN PRN (Reason: shortness of breath or wheezing) aspirin 81 mg tablet,delayed release (DR/EC) 81 mg PO DAILY atorvastatin 20 mg tablet 20 mg PO QHS dapagliflozin propanediol [Farxiga] 5 mg tablet 5 mg PO DAILY Trelegy Ellipta 100-62.5-25 mcg blister with device 1 inh INHALATION DAILY metformin 500 mg tablet extended release 24hr 1,500 mg PO QHS Patient Comments: TAKE 2 tabs in the AM and One tab in PM Rx Instructions: TAKE 2 tabs in the AM and One tab in PM esomeprazole magnesium 40 mg capsule,delayed release(DR/EC) 40 mg PO DAILY metoprolol succinate 25 mg tablet extended release 24 hr 25 mg PO DAILY insulin lispro protamin-lispro [Humalog Mix 75-25 KwikPen] 100 unit/mL (75-25) insulin pen 15 unit subcut BIDCM Rybelsus 7 mg tablet 7 mg PO DAILY prednisone 5 mg tablet 15 mg PO DAILY Complex B-100 Tablet Extended Release 1 tab PO DAILY sennosides-docusate sodium [Stimulant Laxative Plus] 8.6-50 mg Tablet 2 tab PO BID Qty: 0 0RF lorazepam 1 mg tablet 0.5 mg PO TID PRN (Reason: anxiety) Qty: 90 0RF cephalexin 500 mg capsule 500 mg PO 4XD 7 Days Qty: 28 0RF potassium chloride 20 mEq tablet,ER particles/crystals 20 meq PO BID Qty: 20 0RF acetaminophen 500 mg Tablet 1,000 mg PO Q8 PRN (Reason: pain/fever) Qty: 0 0RF lidocaine 5 % Adhesive Patch,Medicated 1 patch topical DAILY Qty: 30 0RF Protocol: *Topical Application Instructions APPLICATION INSTRUCTIONS: to back. Rx Instructions: to upper back. midodrine 5 mg tablet 10 mg PO TIDCM Qty: 180 0RF oxycodone 10 mg tablet 10 mg PO Q6H 30 Days Qty: 1 0RF Rx Instructions: Per Efren Hollingsworth NP miscellaneous medical supply Misc 1 ea miscellaneous ONCE Qty: 1 0RF Rx Instructions: DETENTION REFERRAL. The patient is requiring extensive care at home, beyond what [facility] is able to provide. He has a pressure ulcer that is only addressed when his friend is helping, has had recurrent ED visits, has required blood transfusions and electrolyte replacement after missing home medications. He is routinely having symptomatic hypotension despite being on midodrine. His pain is not adequately controlled and he has been having multiple falls. Primary Care Provider: Desiree Saleh Referrals: Desiree Saleh MD [Primary Care Provider] - Print Language: Yi
[2024-10-26 22:07] LABS: Troponin T High Sens 4 HR 84 ng/L (<=22)
--- NOTE | 2024-10-26 22:20 | PCM.HP.STD ---
[facility] General General Date of Admission: 10/26/24 Date of Service: 10/26/24 Chief Complaint: Chest Pain, SOB and Confusion. [facility] Narrative REY FARRELL, is a 69 M with a past medical history of essential hypertension; on metoprolol, orthostatic hypotension; on midodrine 10 mg TID, hyperlipidemia; on atorvastatin, DM-2; of unknown control on metformin, dapagliflozin, semaglutide and insulin lispro mix 75-25 with patient taking 15 units SQ twice daily, diabetic neuropathy; on pregabalin, history of CAD; s/p CABG x 3 (2015), history of PAD, ELLEN; on CPAP, former tobacco abuse (quit 2015); with subsequent COPD and Lung Cancer; s/p lobectomy of the lung with previously known widespread metastases including to spine causing Chronic Pain; with patient on oxycodone 10 mg p.o. every 6 hours scheduled, chronic hypoxic respiratory failure; on 3L NC continuous, history of syncope, history of DVT; patient currently not on anticoagulation, depression with anxiety; on paroxetine and as needed lorazepam 3 times daily, BPH; on tamsulosin, GERD; on esomeprazole who presents to [facility] ER complaining of chest pain, shortness of breath and confusion. Mr. Farrell is not a fully-reliable historian at this time as information was gathered from chart, medical staff and computer. According to the records patient informed the ER physician that he has been having a drastic decline in his overall health for the past few weeks with intermittent chest pain that the patient describes as all over with associated shortness of breath. He also admits to generalized abdominal pain and nausea but he denies vomiting, fever, chills,, diarrhea, dysuria, hematuria, headache or rash. In the ER the patient underwent a CTA of the chest with and without contrast that revealed no large central filling defect to suggest pulmonary embolism with persistent encasement and narrowing of the left main and segmental pulmonary arteries from large Left upper lobe mass extending into the hilar region with interval increase in size of previously seen large Left upper lobe mass extending into the Left suprahilar region and laterally to the chest wall with erosion of multiple ribs in addition to multiple bilateral pulmonary nodules as well as mediastinal and axillary lymph nodes consistent with underlying metastatic disease with a re-demonstration of pleural-based nodularity along the Right posterolateral lung region at the level of T6 and T7 with a large metastatic deposit accompanied with destructive changes and erosion of the posterior element of the mid-thoracic spine extending from T5-T7 with epidural extension of this mass into the Right aspect of the spinal cord with findings that are more prominent when compared to prior and concerning for spinal cord compression with MRI recommended in addition to a large Left adrenal mass measuring ~3.3 cm concerning for metastatic disease. He was also noted to have severe Hypercalcemia of 14.1 mg/dL complicated by Leukocytosis of 19.5 K present on admission with Left-shift of 1% in addition to clinical evidence of Acute Metabolic Encephalopathy. The ER physician that did an excellent job of communicating with the patient's son, Isaiah Farrell, as patient had been previously evaluated at [facility]; s/p oncologic treatment with chemoradiation with patient and family both previously informed he would not be a surgical candidate even though he could become paralyzed. His family then changed his CODE STATUS to DNR-CC; with plan to admit under hospice services for end-of-life care with formal hospice consultation pending in the a.m. and appreciated in advance. He was then admitted to the general medical floor for ongoing care for stay that is expected to extend beyond 2 midnights. [facility] Medical History (Updated 10/27/24 @ 00:[address] Kahlil Steel, ) Anemia PAD (peripheral artery disease) Kidney disease Sleep apnea Alcohol use Excessive bleeding History of echocardiogram History of stress test Cardiology follow-up encounter Chest pain Vitamin D deficiency Left adrenal mass CAD (coronary artery disease) Blind Cancer Depression Anxiety Diabetes Prostate disease DVT (deep venous thrombosis) High cholesterol Easy bruising Umbilical hernia Neuropathy Injury of head and neck Syncope Former smoker On home oxygen therapy CPAP (continuous positive airway pressure) dependence COPD (chronic obstructive pulmonary disease) Shortness of breath on exertion History of edema Hypertension Home Medications ?Medication ?Instructions ?Recorded ?Last Taken ?Type albuterol sulfate 2.5 mg/3 mL 2.5 mg inhalation DAILY shortness 01/08/23 09/03/24 History (0.083 %) solution for nebulization of breath albuterol sulfate 90 mcg/actuation 2 puff inhalation PRN PRN 01/08/23 05/30/24 History aerosol inhaler shortness of breath or wheezing aspirin 81 mg tablet,delayed 81 mg PO DAILY general health 01/08/23 09/04/24 History release atorvastatin 20 mg tablet 20 mg PO QHS hyperlipidema 01/08/23 09/03/24 History dapagliflozin propanediol 5 mg 5 mg PO DAILY daily 01/08/23 09/03/24 History tablet (Farxiga) fluticasone fur. 100 mcg-umeclid 1 inh inhalation DAILY daily 01/08/23 09/03/24 History 62.5 mcg-vilant 25 mcg inhalat.powder (Trelegy Ellipta) paroxetine HCl 10 mg tablet 10 mg PO DAILY daily 01/08/23 09/04/24 History pregabalin 150 mg capsule 150 mg PO DAILY daily 01/08/23 09/04/24 History roflumilast 250 mcg tablet 250 mcg PO DAILY guru 01/08/23 09/04/24 History tamsulosin 0.4 mg capsule 0.4 mg PO Q24H BPH 01/08/23 09/04/24 History metformin 500 mg tablet,extended 1,500 mg PO QHS D<M 03/22/24 09/04/24 History release 24hr (osmotic) gabapentin 300 mg capsule 300 mg PO QHS neuropathy 05/10/24 09/03/24 History esomeprazole magnesium 40 mg 40 mg PO DAILY daily 09/04/24 09/03/24 History capsule,delayed release insulin lispro protamine-lispro 15 unit subcut BIDCM diabetes 09/04/24 09/04/24 History 100 unit/mL (75-25) subcutaneous pen (Humalog Mix 75-25 KwikPen) metoprolol succinate 25 mg 25 mg PO DAILY hypertension 09/04/24 09/04/24 History tablet,extended release 24 hr prednisone 5 mg tablet 15 mg PO DAILY guru 09/04/24 Unknown History semaglutide 7 mg tablet (Rybelsus) 7 mg PO DAILY daily 09/04/24 09/04/24 History vitamin B complex (Complex B-100 1 tab PO DAILY daily 09/04/24 09/04/24 History tablet,extended release) cephalexin 500 mg capsule 500 mg PO 4XD 1 week #28 caps 09/11/24 Unknown Rx lorazepam 1 mg tablet 0.5 mg (1/2 x 1 mg) PO TID PRN 09/11/24 Unknown Rx anxiety #90 tabs sennosides 8.6 mg-docusate sodium 2 tab PO BID daily #0 tabs 09/11/24 Unknown Rx 50 mg tablet (Stimulant Laxative Plus) acetaminophen 500 mg tablet 1,000 mg (2 x 500 mg) PO Q8 PRN 09/25/24 Unknown Rx pain/fever #0 tabs lidocaine 5 % topical patch 1 patch topical DAILY #30 ea 09/25/24 Unknown Rx midodrine 5 mg tablet 10 mg (2 x 5 mg) PO TIDCM #180 tabs 10/06/24 Unknown Rx oxycodone 10 mg tablet 10 mg PO Q6H pain 1 month #1 TAB 10/16/24 Unknown Rx potassium chloride 20 mEq 20 meq PO BID #20 tabs 10/19/24 Unknown Rx tablet,extended release(part/cryst) miscellaneous medical supply 1 ea miscellaneous ONCE #1 ea 10/24/24 Unknown Rx Allergy/AdvReac Type Severity Reaction Status Date / Time No Known Allergies Allergy Verified 10/26/24 17:02 Family History Mother Cancer LUNG Heart disease Father Cancer lung Sister Cancer lung Heart disease Sister Cancer lung Sister Cancer lung Sister Colon cancer Surgical History Hx of CABG History of bronchoscopy Hx of biopsy History of lobectomy of lung Hx of oral surgery Hx of fracture of foot Hx of fracture of leg History of open heart surgery (05/08/15) Social History household members: none housing: other 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 Vital Signs Vital Signs Vital Signs: 10/26/24 16:57 10/26/24 17:28 10/26/24 17:28 Temperature 97.7 F L Temperature Source Oral Pulse Rate 112 H Respiratory Rate 24 H Respiratory Effort Short of Breath Blood Pressure 97/78 Blood Pressure Mean 84 Pulse Ox 100 Oxygen Delivery Method Nasal Cannula Nasal Cannula Oxygen Flow Rate (L/min) 2 3 10/26/24 17:29 10/26/24 17:29 10/26/24 18:00 Temperature Temperature Source Pulse Rate 99 92 Respiratory Rate 26 H 20 H Respiratory Effort Blood Pressure 105/59 L Blood Pressure Mean 74 Pulse Ox 96 96 Oxygen Delivery Method Nasal Cannula Nasal Cannula Oxygen Flow Rate (L/min) 2 3 10/26/24 19:00 10/26/24 20:00 10/26/24 21:00 Temperature Temperature Source Pulse Rate 90 95 96 Respiratory Rate 20 H 17 16 Respiratory Effort Blood Pressure 101/61 114/63 131/66 H Blood Pressure Mean 74 80 87 Pulse Ox 93 97 96 Oxygen Delivery Method Nasal Cannula Nasal Cannula Nasal Cannula Oxygen Flow Rate (L/min) 3 3 3 10/26/24 22:00 Temperature Temperature Source Pulse Rate 95 Respiratory Rate 25 H Respiratory Effort Blood Pressure 118/62 Blood Pressure Mean 80 Pulse Ox 97 Oxygen Delivery Method Nasal Cannula Oxygen Flow Rate (L/min) 3 Physical Exam Const alert Constitutional Narrative: Patient has chronically ill appearance. General Appearance: cooperative Orientation / Consciousness: confused HEENT normocephalic, head/scalp atraumatic, hearing grossly normal bilaterally and moist oral mucous membranes Eyes PERRL, EOMs intact bilaterally and conjunctivae normal Neck no lymphadenopathy and supple Resp Resp Narrative: Diminished breath sounds throughout with scattered rhonchi in all lung haque, but with no wheezing. Auscultation: rhonchi Cardio regular rate and regular rhythm GI normal to inspection, nondistended, normoactive bowel sounds, soft to palpation, non-tender and non-distended Extremity normal to inspection, full ROM and no clubbing, cyanosis or edema Skin Skin Narrative: Patient is evidence of rash, abscess, wounds or jaundice. Neuro CN's II-XII intact bilaterally, moves all extremities and no focal motor deficits Sensorium / Orientation: awake, alert, oriented to person and oriented to place Speech: speech normal Psych affect normal Results Medical Records Data Attestation: I reviewed the patient's medical records Lab / Micro Data Attestation: I reviewed the patient's lab results. 10/26/24 17:00 10/26/24 17:00 Labs: Laboratory Results - last 24 hr 10/26/24 17:00: WBC 19.5 H, RBC 3.49 L, Hgb 9.1 L, Hct 30.2 L, MCV 86.5, MCH 26.1 L, MCHC 30.1 L, RDW Std Deviation 54.4 H, RDW Coeff of Jaquan 17.2 H, Plt Count 297, MPV 8.9, Immature Gran % (Auto) 1.000 H, Neut % (Auto) 85.0 H, Lymph % (Auto) 9.2 L, [place] % (Auto) 4.5, Eos % (Auto) 0.2, Baso % (Auto) 0.1, Absolute Neuts (auto) 16.6 H, Absolute Lymphs (auto) 1.79, Nucleated RBC % 0, Sodium 138, Potassium 3.5, Chloride 98, Carbon Dioxide 28.6, Anion Gap 11, BUN 15, Creatinine 1.05, Est GFR (MDRD) Non-Af 77, BUN/Creatinine Ratio 13.9, Glucose 136 H, Lactic Acid 1.4, Calcium 14.1 H*, Total Bilirubin 0.33 10/26/24 17:00: Total Bilirubin Cancelled, Direct Bilirubin 0.18 10/26/24 17:00: Direct Bilirubin Cancelled, AST 17 10/26/24 17:00: AST Cancelled, ALT 24 10/26/24 17:00: ALT Cancelled, Alkaline Phosphatase 118 10/26/24 17:00: Alkaline Phosphatase Cancelled, Troponin T High Sens 86 H* D, NT pro BNP II 1693 H 10/26/24 17:00: NT pro BNP II Cancelled, Total Protein 6.5 10/26/24 17:00: Total Protein Cancelled, Albumin 2.8 L 10/26/24 17:00: Albumin Cancelled, Globulin 3.7 10/26/24 17:00: Globulin Cancelled 10/26/24 19:04: Troponin T Hi Sens 2 Hr 82 H* 10/26/24 21:10: Troponin T Hi Sens 4Hr 84 H* ABG Data ABG results: ABG 10/26/24 17:43 Specimen Type FRANCY Sample Site Not entered VBG pH 7.48 H VBG pO2 60 H VBG HCO3 35 H VBG Total CO2 36 H VBG O2 Sat (Calc) 92 H VBG Base Excess 11 H POC Mix VBG pCO2 Pt Tmp 46.7 O2 Delivery Device Not entered Imaging Radiology Impression Chest CTA 10/26/24 17:08 IMPRESSION: 1. No large central filling defect to suggest pulmonary embolism. There is persistent encasement and narrowing of left main and segmental pulmonary arteries from large left upper lobe mass extending into the hilar region. 2. Interval increase in size of previously seen large left upper lobe mass extending into the left suprahilar region and laterally to the chest wall with erosion of multiple ribs as mentioned above. 3. Multiple bilateral pulmonary nodules as well as enlarged mediastinal and axillary lymph node consistent with underlying metastatic disease. 4. There is redemonstration of pleural-based nodularity along right posterolateral lung region at level of T6 and T7 level with large metastatic deposit accompanied with destructive changes and erosion of posterior element of midthoracic spine extending from T5-T7. There is epidural extension of this mass into right aspect of spinal cord. These findings are more prominent when compared to prior and are concerning for spinal cord compression. MRI spine is recommended for better characterization. 5. Large left adrenal mass measuring 3.3 cm concerning for metastatic disease. Red Alert: The critical information above was relayed directly by me by telephone to Maite Menjivar on 10/26/2024 at 7:38 pm with readback verification. Reading Location: [facility] Abdomen/Pelvis CT 10/26/24 17:13 IMPRESSION: Mildly increased size of an infrarenal abdominal aortic aneurysm. Stable bilateral common iliac artery aneurysms. Bilateral lower lobe metastatic disease. Stable left adrenal nodule. Reading Location: [facility] Chest X-Ray 10/26/24 18:25 IMPRESSION: 1. Left apical mass with prominent bilateral hilar region likely representing underlying lymphadenopathy. No definite interval change since prior study. 2. Bilateral small pleural effusions. Reading Location: [facility] Assessment & Plan Assessment/Plan (1) Metastatic lung cancer (metastasis from lung to other site): QUALIFIERS: Laterality: unspecified laterality Qualified Code(s): C34.90 - Malignant neoplasm of unspecified part of unspecified bronchus or lung (2) COPD (chronic obstructive pulmonary disease): QUALIFIERS: COPD type: unspecified COPD Qualified Code(s): J44.9 - Chronic obstructive pulmonary disease, unspecified (3) On home oxygen therapy: (4) Hypercalcemia: (5) Acute metabolic encephalopathy: (6) Chronic pain: QUALIFIERS: Chronic pain type: due to neoplasm Qualified Code(s): G89.3 - Neoplasm related pain (acute) (chronic) PLAN: Plan 1. CTA of the chest with and without contrast that revealed no large central filling defect to suggest pulmonary embolism with persistent encasement and narrowing of the left main and segmental pulmonary arteries from large Left upper lobe mass extending into the hilar region with interval increase in size of previously seen large Left upper lobe mass extending into the Left suprahilar region and laterally to the chest wall with erosion of multiple ribs in addition to multiple bilateral pulmonary nodules as well as mediastinal and axillary lymph nodes consistent with underlying metastatic disease with a re-demonstration of pleural-based nodularity along the Right posterolateral lung region at the level of T6 and T7 with a large metastatic deposit accompanied with destructive changes and erosion of the posterior element of the mid-thoracic spine extending from T5-T7 with epidural extension of this mass into the Right aspect of the spinal cord with findings that are more prominent when compared to prior and concerning for spinal cord compression with MRI recommended - Admit to general medical floor under hospice order set. I appreciate the ER physician's diligence in helping this patient and family make peace with the decision to change his code status to DNR-CC as he has reached the point of medical futility. Finally, we will consult hospice services to evaluate this patient on rounds in the a.m. for further recommendations regarding transfer to inpatient hospice services with help appreciated in advance. 2. Former tobacco abuse (quit 2016); with subsequent COPD and Lung Cancer; s/p lobectomy of the lung with previously known widespread metastases including to spine plus chronic hypoxic respiratory failure; on 3L NC continuous complicating #1 - Noted with apparent unrelenting progression. 3. Severe Hypercalcemia of 14.1 mg/dL with Acute Metabolic Encephalopathy compounding #1 & #2 - We will only give conservative medical treatment as outlined above. 4. Chronic Pain; with patient on oxycodone 10 mg p.o. every 6 hours scheduled - Continue scheduled oxycodone as before plus add hydromorphone IV prn q.4 hours for severe (level 6-10/10) pain or signs of respiratory distress with RR > 35 bpm. 5. Essential hypertension; on metoprolol - Maintain current therapy. 6. Orthostatic hypotension; on midodrine 10 mg TID - Resume midodrine for now with plan for all chronic maintenance medications potentially able to be stopped. 7. Hyperlipidemia; on atorvastatin - Hold statin. 8. DM-2; of unknown control on metformin, dapagliflozin, semaglutide and insulin lispro mix 75-25 with patient taking 15 units SQ twice daily plus diabetic neuropathy; on pregabalin - Cut insulin dose by ~30% to prevent hypoglycemia plus resume gabapentin but hold all other diabetic medications. 9. History of CAD; s/p CABG x 3 (2015) - Noted. 10. History of PAD - Noted. 11. ELLEN; on CPAP - We will continue nocturnal CPAP if patient needs it. 12. History of syncope - Noted. 13. History of DVT; patient currently not on anticoagulation - Noted. 14. Depression with anxiety; on paroxetine and as needed lorazepam 3 times daily - Maintain current regimen as before. 15. BPH; on tamsulosin - Stable. 16. GERD; on esomeprazole - Resume PPI to prevent rebound symptoms. 17. DVT prophylaxis - Since patient admitted under hospice for end-of-life care no form of DVT prophylaxis was ordered. Total time: Approximately (but not less than) 75 minutes. Charges/Coding Visit Charges Inpatient E&M: 78472 Init Hosp L3
--- OUTSIDE RECORDS SUMMARY | 2024-10-26 22:45 | XMS RPT_ITS | CCD ---
Author Organization [facility] Care Team Providers Care Area Captain Name Role Phone ELHAM KIM Admitting Unavailable ELHAM KIM Attending Unavailable ELHAM KIM Primary Care Unavailable ROMAIN ROACH DO Primary Care Physician [phone] ROMAIN ROACH DO Primary Care Physician [phone] Romain Bowling Unavailable Romain Roach DO Primary Care Provider [phone] Gume PENA MD, Daesung Unavailable Gume PENA, Va Unavailable Brenda PENA, Valdemar Unavailable LATOSHA RENEE MD Attending Unavaila ROMAIN Tong DO Primary Care Unavailable LATOSHA RENEE MD Attending Unavaila ROMAIN Tong DO Primary Care Unavailable LATOSHA RENEE MD Attending Unavaila ROMAIN Tong DO Primary Care Unavailable LYUBOV DELGADO Attending Unavailab ROMAIN Khalil DO Primary Care Unavailable Romain Roach DO Primary Care Provider [phone] Romain Roach DO Primary Care Provider [phone] Lyubov Castaneda CNP Unavailable [phone] Latosha Renee MD Unavailable [phone] Dr. Romain Roach DO Referring Provider Kimberlee PENA, Dr. Green Attending Provider [phone] Therese PENA, Dr. Ramírez Primary Care Provider [phone] Kimberlee PENA, Dr. Green Referring Provider Maribeth PENA, Aden Attending Provider Maribeth PENA, Aden Emergency Provider Dr. Angelica Saleh MD Referring Provider Mateo PROFESSOR OF GERMAN-C, Jaleesa Attending Provider Mateo PROFESSOR OF GERMAN-C, Jaleesa Referring Provider Polo PENA, Dr. Infante Attending Provider Elliott BRADFORD, Dr. Rome Attending Provider Elliott BRADFORD, Dr. Rome Other Provider [phone] Víctor PENA, Dr. Latosha Ho Attending Provide r Víctor PENA, Dr. Latosha Ho Referring Provide r Booker PENA, Dr. Hodges Emergency Provider [phone] Booker PENA, Dr. Hodges Attending Provider Therese PENA, Dr. Ramírez Attending Provider Fernando PENA, Dr. Mathis Attending Provider Dr. Del King MD Referring Provider Dr. Angelica Saleh MD Primary Care Provider [phone] Kimberlee PENA, Dr. Green Attending Provider [phone] Dr. Romain Roach DO Referring Provider Dr. Angelica Saleh MD Primary Care Provider [phone] Dr. Brad Hou MD Attending Provider [phone] Dr. Brad Hou MD Referring Provider Dr. Janie Madsen DO Emergency Provider Drake PENA, Dr. Smalls Admit Provider Drake PENA, Dr. Smalls Attending Provider Therese PENA, Dr. Ramírez Primary Care Provider Therese PENA, Dr. Ramírez Referring Provider Polo PENA, Dr. Infante Attending Provider Fernando PENA, Dr. Mathis Attending Provider Fernando PENA, Dr. Mathis Referring Provider Elliott BRADFORD, Dr. Rome Attending Provider Elliott BRADFORD, Dr. Rome Other Provider Víctor PENA, Dr. Latosha Ho Attending Provide r Víctor PENA, Dr. Latosha Ho Referring Provide r Booker PENA, Dr. Hodges Attending Provider Booker PENA, Dr. Hodges Emergency Provider Sofia BRADFORD, Dr. Rivera Referring Provider Therese PENA, Dr. Ramírez Attending Provider Mateo PROFESSOR OF GERMAN-C, Jaleesa Attending Provider Mateo PROFESSOR OF GERMAN-C, Jaleesa Referring Provider Savi PENA, Dr. Salinas Attending Provider Savi PENA, Dr. Salinas Referring Provider Cale BRADFORD, Dr. Lima Emergency Provider Drake PENA, Dr. Smalls Admit Provider Drake PENA, Dr. Smalls Other Provider Vicente PENA, Dr. Garcia Attending Provider Jordan BRADFORD, Dr. Eid Other Provider [phone] Rose Mary PENA, Dr. Rivera Other Provider Av PENA, Dr. Goss Other Provider Marilin PENA, Dr. Oconnell Other Provider Jassi PENA, Dr. Lance Other Provider Dr. Addy Nelson DO Attending Provider Omar BRADFORD, Dr. Daly Other Provider Gregoria PENA, Dr. Kahlil De Luna Other Provider [phone] Ruba PENA, Dr. Maldonado Other Provider [phone] Thuan PENA, Dr. Melton Other Provider Brenda PENA, Dr. Charles Other Provider Sameer PENA, Dr. Salgado Other Provider Harris PENA, Dr. Ahn Other Provider [phone] Jg PENA, Dr. Dunbar Other Provider Yordan PENA, Dr. Holloway Other Provider Elia PENA, Dr. Soliman Other Provider Unavailabl julieta Reyna MD, Dr. Munoz Other Provider [phone] Germán PENA, Dr. Varghese Other Provider Jacque PENA, Dr. Saini Other Provider [phone] Eder PENA, Dr. Hankins Other Provider Benita BRADFORD, Dr. Tolentino Other Provider [phone] Trish PENA, Dr. Sofia Other Provider [phone] Cheryl PENA, Dr. Livingston Other Provider [phone] Deepak BRADFORD, Dr. Fox Other Provider Jameel PENA, Dr. Mccord Other Provider Cody PENA, Dr. Pham Other Provider [phone] Stanton Ortega DO Attending Provider Kimberlee PENA, Dr. Green Attending Provider Kimberlee PENA, Dr. Green Referring Provider [phone] Timbo PENA, Dr. Soto Attending Provider Vicente PENA, Dr. Garcia Other Provider [phone] VALDEMAR DUNCAN Referring Unavailable VALDEMAR DUNCAN Referring Unavailable PROVIDER, UNKNOWN Referring Unavailable PROVIDER, UNKNOWN Admitting Unavailable PROVIDER, UNKNOWN Attending Unavailable PROVIDER, UNKNOWN Referring Unavailable Therese PENA, Dr. Ramírez Primary Care Provider Víctor PENA, Dr. Latosha Ho Attending Provide r Víctor PENA, Dr. Latosha Ho Referring Provide r Therese PENA, Dr. Ramírez Referring Provider Drake PENA, Dr. Smalls Referring Provider Jordan BRADFORD, Dr. Eid Referring Provider Elliott BRADFORD, Dr. Rome Attending Provider Vicente PENA, Dr. Garcia Referring Provider [facility]AD[facility], Dr. Oates Emergency Provider Vicente PENA, Dr. Garcia Admit Provider Dr. Humberto Thayer MD Other Provider Dr. Naresh Florez DO Attending Provider Dr. Naresh Cuellar MD Other Provider Dr. Naresh Florez DO Other Provider Polo PENA, Dr. Infante Attending Provider Dr. Humberto Thayer MD Referring Provider Dr. Naresh Florez DO Referring Provider Ketty Kelley Attending Provider Ungerer PROFESSOR OF GERMAN-C, Nishi Attending Provider [phone] Ungerer PROFESSOR OF GERMAN-C, Nishi Referring Provider [phone] Aden Stahl MD Attending Provider Aden Stahl MD Emergency Provider Therese PENA, Dr. Ramírez Attending Provider Booker PENA, Dr. Hodges Referring Provider Booker PENA, Dr. Hodges Emergency Provider GEORGE PEREZ Referring Unavailable ABRAMCARMELINAH, VALDEMAR Attending Unavailable ABRAMCARMELINAH, VALDEMAR Referring Unavailable SOFIA, ROMAIN F Primary Care Unavailable ABRAMOVICH, VALDEMAR Attending Unavailable ABRAMOVICH, VALDEMAR Referring Unavailable SOFIA, ROMAIN F Primary Care Unavailable VA DUNAWAY Attending Unavailable SELF Referring Unavailable SOFIA, ROMAIN F Primary Care Unavailable SIBILIA, ROMAIN Referring Unavailable JAZLYN, JONH Referring Unavailable JAZLYN, JONH Referring Unavailable VA DUNAWAY Attending Unavailable ABRAMOVICH, VALDEMAR Attending Unavailable ABRAMOVICH, VALDEMAR Referring Unavailable ABRAMOVICH, VALDEMAR Referring Unavailable SOFIA, ROMAIN F Primary Care Unavailable ABRAMOVICH, VALDEMAR Referring Unavailable SOFIA, ROMAIN F Primary Care Unavailable ABRAMOVICH, VALDEMAR Attending Unavailable ABRAMOVICH, VALDEMAR Referring Unavailable JAZLYN, JONH Attending Unavailable SHAWN LOVE Referring Unavailable JAZLYN, JONH Attending Unavailable JAZLYN, JONH Referring Unavailable SIBILIA, ROMAIN Referring Unavailable SIBILIA, ROMAIN Referring Unavailable ABRAMOVICH, VALDEMAR Referring Unavailable ABRAMOVICH, VALDEMAR Referring Unavailable ABRAMOVICH, VALDEMAR Attending Unavailable ABRAMOVICH, VALDEMAR Referring Unavailable SOFIA, ROMAIN F Primary Care Unavailable ABRAMOVICH, VALDEMAR Referring Unavailable SOFIA, ROMAIN F Primary Care Unavailable VA DUNAWAY Attending Unavailable JAZLYN, JONH Referring Unavailable JAZLYN, JONH Referring Unavailable JAZLYN, JONH Referring Unavailable Drake, Serina Admitting Unavailable Juan, Serina Consulting Unavailable Therese, Angelica Primary Care Unavailable Vicente, Jose Attending Unavailable Stanton Ortega Consulting Unavailable Romain Bazzi Consulting Unavailable Therese, Angelica Primary Care Unavailable Humberto Thayer Consulting Unavailable Vicente, Jose Admitting Unavailable Naresh Florez Attending Unavailable Vicente, Jose Consulting Unavailable Naresh Cuellar Consulting Unavailable Elliott, Wild Attending Unavailable Therese, Angelica Referring Unavailable [place], Angelica Primary Care Unavailable [place], Angelica Primary Care Unavailable KeererDylanNishi Referring Unavailable UngererDylanNishi Attending Unavailable [place], Angelica Referring Unavailable [place], Angelica Primary Care Unavailable Naresh Cuellar Attending Unavailable [place], Angelica Primary Care Unavailable Juan, Serina Consulting Unavailable Juan, Serina Admitting Unavailable Mosteller, Stanton Referring Unavailable Addy Nelson Attending Unavailable Stanton Ortega Consulting Unavailable Stanton Ortega Attending Unavailable Vicente, Jose Attending Unavailable Romain Bazzi Consulting Unavailable Vicente, Jose Consulting Unavailable Therese, Angelica Primary Care Unavailable Peter Mohan Attending Unavailable Kimberlee, [place] Referring Unavailable [place], Angelica Primary Care Unavailable Carroll Celeste Attending Unavailable Therese, Angelica Primary Care Unavailable Aden Stahl Attending Unavailable [place], Angelica Primary Care Unavailable Maribeth Aden Attending Unavailable MateoJaleesa Attending Unavailable Mateo, Jaleesa Referring Unavailable Therese, Angelica Primary Care Unavailable Therese, Angelica Primary Care Unavailable Raghunathan, Latosha Na Attending Unavaila ble Raghunathan, Latosha Na Referring Unavaila ble Jaleesa Galindo Attending Unavailable Therese, Angelica Primary Care Unavailable Mateo, Jaleesa Referring Unavailable MateoTereseJaleesa Attending Unavailable Mateo, Jaleesa Referring Unavailable Therese, Angelica Primary Care Unavailable Friend, Wild Consulting Unavailable Friend, Wild Attending Unavailable [place], Angelica Referring Unavailable [place], Angelica Primary Care Unavailable [place], Angelica Primary Care Unavailable Humberto Thayer Consulting Unavailable Naresh Florez Attending Unavailable Vicente, Jose Admitting Unavailable Vicente, Jose Consulting Unavailable [place], Naresh Consulting Unavailable Jopperi, Naresh Consulting Unavailable Friend, Wild Attending Unavailable Vicente, Jose Referring Unavailable Jopperi, Naresh Referring Unavailable Ketty Chris Attending Unavailable Mateo Jaleesa Attending Unavailable [place], Angelica Referring Unavailable Therese, Angelica Primary Care Unavailable [place], Angelica Primary Care Unavailable Therese, Angelica Attending Unavailable Sofia Romain Referring Unavailable Therese, Angelica Primary Care Unavailable Peter Mohan Attending Unavailable Sofia Romain Referring Unavailable Mateo Jaleesa Attending Unavailable Therese, Angelica Referring Unavailable [place], Angelica Primary Care Unavailable Therese, Angelica Primary Care Unavailable Shelton Cuellaric Attending Unavailable Jeovany Humberto Referring Unavailable Del King Referring Unavailable [place], Angelica Primary Care Unavailable Sailors Del Attending Unavailable Theerse, Angelica Primary Care Unavailable Kimberlee, Peter Attending Unavailable Jose Zhang Attending Unavailable Serina Juan Attending Unavailable Serina Juan Referring Unavailable Wolfgang Ley Consulting Unavailable Anish Gaston Consulting Unavailable Natalio Keene Consulting Unavailable Addy Nelson Consulting Unavailable Kahlil Kinney Consulting Unavailable Joel Yeh Consulting Unavailable Geronimo Larose Consulting Unavailable Araceli Gutierrez Consulting UnavailDamian Nielsen Consulting Unavailable Jimy Iglesias Consulting Unavailable Manjinder Gregorio Consulting Unavailable Amie Farr Consulting Unavailable AljunJanny eaton Consulting Unavailable ReynaTammy mcdermott Consulting Unavailable Gerámn, Abimael Consulting Unavailable Parveen Santillan Consulting Unavailable Eder, Cr Consulting Unavailable DheAnnie ahnRajan Consulting Unavailable Kimberlyn Chambers Consulting Unavailable Yara Luna Consulting Unavailable Ruddy Sotelo Consulting Unavailable Flex Jorgensen Consulting Unavailable Ankit Ross Consulting Unavailable Therese, Angelica Primary Care Unavailable Brittany Izquierdo Attending Unavailable Therese, Angelica Primary Care Unavailable Kimberlee, Peter Attending Unavailable Kimberlee, Peter Referring Unavailable Jaleesa Galindo Attending Unavailable [place], Angelica Primary Care Unavailable Therese, Angelica Referring Unavailable [place], Angelica Primary Care Unavailable Nishi Garnett Attending Unavailable [place], Angelica Referring Unavailable MateoJaleesa santiago Attending Unavailable [place], Angelica Referring Unavailable [place], Angelica Primary Care Unavailable [place], Angelica Primary Care Unavailable Carroll Celeste Attending Unavailable Carroll Celeste Referring Unavailable [place], Angelica Primary Care Unavailable Sibilia, Romain V Referring Unavailable Sibilia Romain V Attending Unavailable Therese, Angelica Referring Unavailable Therese, Angelica Attending Unavailable Therese, Angelica Primary Care Unavailable [place], Angelica Primary Care Unavailable Raghunathan, Latosha Na Referring Unavaila ble Raghunathan, Latosha Na Attending Unavaila ble Therese, Angelica Primary Care Unavailable Therese, Angelica Attending Unavailable Raghunathan, Latosha Na Referring Unavaila ble Raghunathan, Latosha Na Attending Unavaila ble [place], Angelica Primary Care Unavailable Angelica Saleh Primary Care Unavailable Angelica Saleh Attending Unavailable Angelica Saleh Referring Unavailable Brad Hou Referring Unavailable Angelica Saleh Primary Care Unavailable Brad Hou Attending Unavailable Medications Current Medications Medication Drug Class(es) Dates Sig (Normalized) Sig (Original) acetaminophen 500 mg oral tablet (15 sources) Start: 09-25-2024 albuterol 0.83 mg/ml inhalation solution (20 sources) beta2-Adrenergic Agonist Start: 03-05-2023 take 2.5 mg by inhalation every four hours as needed albuterol (PROVENTIL) 2.5 mg /3 mL (0.083 %) nebulizer solution Use 2.5 mg via nebulizer every 4 hours as needed. 03/05/2023 Active Start: 03-03-2023 take 1-2 puff(s) by inhalation every four hours as needed albuterol HFA (PROVENTIL HFA, VENTOLIN HFA) 90 mcg/actuation inhaler Inhale 1-2 Puffs as instructed every 4 hours as needed. 03/03/2023 Active Start: 03-03-2023 albuterol HFA (PROVENTIL HFA, VENTOLIN HFA) 90 mcg/actuation inhaler 03/03/2023 Active Start: 01-08-2023 Start: 01-08-2023 Start: 01-08-2023 take 2.5 mg by inhal ation once daily Albuterol Sulfate 2.5 mg /3 mL (0.083 %) solution for nebulization Active 2.5 mg INHALATION DAILY January 08, 2023 12:00am Start: 01-08-2023 Albuterol Sulf ate Active 2 PUFF INHALATION NEEDED January 07, 2023 11:00pm Start: 01-12-2020 take 2 puff(s) by in halation every four hours as needed for wheezing Ventolin HFA MDI (90 mcg/inh) inhalation aerosol 2 puff(s), Inhalation, q4h, PRN as needed for wheezing Start Date: 01/12/20 Status: Ordered Start: 07-25-2019 take 1 dose by inhal ation every six hours as needed albuterol 2.5 mg/3 mL (0.083%) inhalation solution Dose : 2.5 mg = 3 mL, Inhalation, q6h, PRN as needed for wheezing, # 90 mL, 0 Refill(s) Start Date: 07/25/19 Status: Ordered Start: 07-25-2019 take 1 dose by inhal ation every six hours as needed albuterol 2.5 mg/3 mL (0.083%) inhalation solution Dose : 2.5 mg = 3 mL, Inhalation, q6h, PRN as needed for wheezing, # 90 mL, 0 Refill(s) Start Date: 07/25/19 Status: Ordered take 2 puff(s) by in halation every four hours as needed ALBUTEROL INHALATION Inhale 2 Puffs as instructed every 4 hours as needed. Active take 2 puff(s) by in halation every four hours as needed ALBUTEROL INHALATION Inhale 2 Puffs as instructed every 4 hours as needed. 0 Active Comment on above: Inhale 2 Puffs as in structed every 4 hours as needed. aspirin 81 mg delayed releas e oral tablet (20 sources) Platelet Aggregation Inhibitor, Nonsteroidal Anti-inflammatory Drug Start: 01-08-2023 Start: 09-13-2018 take 1 capsule by mo uth once daily aspirin 81 mg cap Take 81 mg by mouth once daily. 09/13/2018 Active Comment on above: Take 81 mg by mouth once daily. atorvastatin 20 mg oral tabl et (20 sources) HMG-CoA Reductase Inhibitor Start: 11-24-2022 Start: 07-18-2021 atorvastatin 2 0 mg oral tablet Dose : 20 mg = 1 tab(s), Oral, qDay, TAKE 1 TABLET BY MOUTH EVERY DAY, # 90 tab(s), 3 Refill(s), Pharmacy: [facility], 177, cm, 05/29/21 9:12:00 EDT, Height, kg, 05/29/21 9:12:00 EDT, Dosing Weight Start Date: 07/18/21 Status: Ordered Start: 05-23-2020 atorvastatin 2 0 mg oral tablet Dose : 20 mg = 1 tab(s), Oral, qDay, TAKE 1 TABLET BY MOUTH EVERY DAY, # 90 tab(s), 3 Refill(s), Pharmacy: [facility], 179, cm, 05/23/20 10:00:00 EST, Height, kg, 05/23/20 10:00:00 EST, Dosing Weight Start Date: 05/23/20 Status: Ordered Comment on above: Take 20 mg by mouth once daily. cephalexin 500 mg oral capsu le (2 sources) Cephalosporin Antibacterial Start: 09-11-2024 dapagliflozin 5 mg oral tabl et (20 sources) Sodium-Glucose Cotransporter 2 Inhibitor Start: 12-02-2022 Start: 02-04-2022 take 1 tablet by konrad once daily Farxiga 5 mg oral tablet See Instructions, TAKE 1 TABLET EVERY DAY, # 90 tab(s), 2 Refill(s), Pharmacy: [facility], 178, cm, 01/22/22 9:03:00 EST, Height, kg, 01/22/22 9:03:00 EST, Dosing Weight Start Date: 02/04/22 Status: Ordered Start: 07-06-2021 take 1 tablet by konrad once daily Farxiga 5 mg oral tablet See Instructions, TAKE 1 TABLET EVERY DAY, # 90 tab(s), 1 Refill(s), Pharmacy: [facility], 177, cm, 05/29/21 9:12:00 EDT, Height, kg, 05/29/21 9:12:00 EDT, Dosing Weight Start Date: 07/06/21 Status: Ordered Start: 11-19-2020 take 1 tablet by konrad once daily Farxiga 5 mg oral tablet See Instructions, TAKE 1 TABLET EVERY DAY, # 90 tab(s), 1 Refill(s), Pharmacy: [facility], 178, cm, 10/29/20 9:24:00 EDT, Height, kg, 10/29/20 9:24:00 EDT, Dosing Weight Start Date: 11/19/20 Status: Ordered Comment on above: Take 5 mg by mouth o nce daily. DME MISCellaneous (20 sources) Start: 06-26-2022 DME MISCellaneous See Instructions, true metrix meter kit, 1 kit no refills. E11.65, # 1 EA, 0 Refill(s), Pharmacy: [facility]/pharmacy #[id number], Uncontrolled type 2 diabetes mellitus, 178, cm, 06/11/22 9:39:00 EDT, Height, 100, kg, 06/11/22 9:39:00 EDT, Dosing Weight Start Date: 06/26/22 Status: Ordered Start: 02-09-2022 DME MISCellane ous See Instructions, True Metrix Blood Glucose Meter 1 kit for 12 months no refills. E11.65, # 1 EA, 0 Refill(s), Pharmacy: [facility], 178, cm, 01/22/22 9:03:00 EST, Height, 98.1, kg, 01/22/22 9:03:00 EST, Dosing Weight Start Date: 02/09/22 Status: Ordered Start: 12-17-2020 DME MISCellane ous See Instructions, true metrix test strips one strip 3 times daily and as needed #300 strips for 90 days and 1 refills.., # 1 EA, 0 Refill(s), Pharmacy: [facility], Uncontrolled type 2 diabetes mellitus, 178, cm, 11/28/20 9:24:00 EDT... Start Date: 12/17/20 Status: Ordered Start: 09-04-2020 DME MISCellane ous See Instructions, true metrix lancets, 1 lancet 3 times daily and as needed 1 box of 100 for 30 days and 3 refills., # 1 EA, 0 Refill(s), Pharmacy: [facility], Uncontrolled type 2 diabetes mellitus, 175.3, cm, 09/04/20 9:37:00 EDT,... Start Date: 09/04/20 Status: Ordered Start: 09-04-2020 DME MISCellane ous See Instructions, true metrix meter kit, 1 kit no refills., # 1 EA, 0 Refill(s), Pharmacy: [facility], Uncontrolled type 2 diabetes mellitus, 175.3, cm, 09/04/20 9:37:00 EDT, Height, 98, kg, 09/04/20 9:37:00 EDT, Dosing Weight Start Date: 09/04/20 Status: Ordered docusate sodium 50 mg / sennosides, assisted 8.6 mg oral tablet (2 sources) Start: 09-11-2024 esomeprazole 40 mg delayed release oral capsule (3 sources) Proton Pump Inhibitor Start: 09-04-2024 Xbrsjxcxbph-Huelnmbjf-Mfbvzt er (14 sources) Anticholinergic, Corticosteroid, beta2-Adrenergic Agonist Start: 01-08-2023 Start: 01-08-2023 Fluticasone-Um eclidin-Vilanter [Fluticasone Fur. 100 Mcg- Umeclid 62.5 Mcg-Vilant 25 Mcg Inhalat.Powder] (Fluticasone Fur. 100 Mcg-Umeclid 62.5 Mcg-Vilant ) 100-62.5-25 mcg blister with device Active 1 NMA INHALATION DAILY January 08, 2023 12:00am Start: 01-08-2023 Fluticasone-Um eclidin-Vilanter [Fluticasone Fur. 100 Mcg- Umeclid 62.5 Mcg-Vilant 25 Mcg Inhalat.Powder] (Fluticasone Fur. 100 Mcg-Umeclid 62.5 Mcg-Vilant ) 100-62.5-25 mcg blister with device Active 1 INH INHALATION DAILY January 07, 2023 11:00pm Start: 01-08-2023 Fluticasone-Um eclidin-Vilanter [Fluticasone Fur. 100 Mcg- Umeclid 62.5 Mcg-Vilant 25 Mcg Inhalat.Powder] (Fluticasone Fur. 100 Mcg-Umeclid 62.5 Mcg-Vilant ) 100-62.5-25 mcg blister with device Active 1 INH INHALATION DAILY January 08, 2023 12:00am [id number]-OVPWIK ER INHALATION (20 sources) FLUTICASONE-UMEC LIDIN-VILANTER INHALATION Inhale as instructed. Active FLUTICASONE-UMEC LIDIN-VILANTER INHALATION Inhale as instructed. 0 Active Comment on above: Inhale as instructed . fluticasone/umeclid in/vilanter (TRELEGY ELLIPTA INHALATION) (20 sources) take 1 puff(s) by inhalation once daily fluticasone/umeclidin /vilanter (TRELEGY ELLIPTA INHALATION) Inhale 1 Puff as instructed once daily. Active fluticasone/umec lidin/vilanter (TRELEGY ELLIPTA INHALATION) Inhale as instructed. Active fluticasone/umec lidin/vilanter (TRELEGY ELLIPTA INHALATION) Inhale as instructed. 0 Active Comment on above: Inhale as instructed . gabapentin 300 mg oral capsu le (20 sources) Anti-epileptic Agent Start: 05-10-2024 End: 11-10-2024 Start: 03-07-2024 End: 05-13-2024 take 1 capsule by mouth once daily at bedtime gabapentin (NEURONTIN) 100 mg capsule Take 1 capsule by mouth daily at bedtime for 30 days. 30 capsule 2024 Active 3 ml insulin lispro 25 unt/m l / insulin lispro protamine, human 75 unt/ml pen injector (17 sources) Insulin Analog Start: 09-04-2024 Start: 09-04-2024 Insulin Lispro Protamin-Lispro (Humalog Mix 75-25 Kwikpen) 100 unit/mL (75-25) insulin pen Active 15 U SC TWICE DAILY WITH MEALS September 04, 2024 12:00am iv contrast (will be provide d with radiology test) (2 sources) Start: 03-07-2024 End: 03-08-2024 iv contrast (will be provide d with radiology test) CT Chest W -Inject, intravenously, once for 1 dose.No IV access, insert saline lock prior to the beginning of sedation, infusion, injection of imaging exam. Discontinue saline lock post exam. If Pt. has a central line or IVAD, may access for administration according to line specific nursing protocol. Once exam is complete flush line and de-access according to line specific nursing protocol in the CT contrast administration guidelines link. 1 Each 03/07/2024 03/08/2024 Active Start: 07-16-2023 End: 07-17-2023 iv contrast (will be provide d with radiology test) CT Chest W -Inject, intravenously, once for 1 dose.No IV access, insert saline lock prior to the beginning of sedation, infusion, injection of imaging exam. Discontinue saline lock post exam. If Pt. has a central line or IVAD, may access for administration according to line specific nursing protocol. Once exam is complete flush line and de-access according to line specific nursing protocol in the CT contrast administration guidelines link. 1 Each 0 07/16/2023 07/17/2023 Active L.acid/L.casei/B.bif/B.link/F OS (PROBIOTIC BLEND ORAL) (20 sources) take 1 capsule by mouth once daily L.acid/L.casei/B.bif/B.link/FOS (PROBIOTIC BLEND ORAL) Take 1 capsule by mouth once daily. Active L.acid/L.casei/B .bif/B.link/FOS (PROBIOTIC BLEND ORAL) Take 6 Billion Cells by mouth once daily. Active L.acid/L.casei/B .bif/B.link/FOS (PROBIOTIC BLEND ORAL) Take 6 Billion Cells by mouth once daily. 0 Active Comment on above: Take 6 Billion Cells by mouth once daily. lidocaine 0.05 mg/mg medicat ed patch (11 sources) Antiarrhythmic, Amide Local Anesthetic Start: 09-25-2024 Start: 06-08-2024 End: 09-04-2024 24 hr metoprolol succinate 2 5 mg extended release oral tablet (20 sources) beta-Adrenergic Yajaira Start: 09-04-2024 Start: 01-08-2023 End: 09-04-2024 Start: 01-08-2023 End: 09-04-2024 take 1 tablet by mouth twice daily Metoprolol Tartrate 50 mg tablet Discontinued 50 mg PO TWICE A DAY March 22, 2024 9:55am September 04, 2024 10:47am Start: 07-21-2022 take 1 tablet by konrad th once daily metoprolol tartrate, short acting, (LOPRESSOR) 50 mg tablet Take 50 mg by mouth once daily. 02/01/2023 Active Start: 05-30-2021 Metoprolol Tar trate 50 mg oral tablet Dose : 50 mg = 1 tab(s), Oral, BID, TAKE 1 TABLET BY MOUTH TWICE A DAY, # 180 tab(s), 3 Refill(s), Pharmacy: [facility], 177, cm, 05/29/21 9:12:00 EDT, Height, kg, 05/29/21 9:12:00 EDT, Dosing Weight Start Date: 05/30/21 Status: Ordered Start: 05-23-2020 Metoprolol Tar trate 50 mg oral tablet Dose : 50 mg = 1 tab(s), Oral, BID, TAKE 1 TABLET BY MOUTH TWICE A DAY, # 180 tab(s), 3 Refill(s), Pharmacy: [facility], 179, cm, 05/23/20 10:00:00 EST, Height, kg, 05/23/20 10:00:00 EST, Dosing Weight Start Date: 05/23/20 Status: Ordered Comment on above: Take 50 mg by mouth once daily. midodrine hydrochloride 5 mg oral tablet (2 sources) alpha-Adrenergic Agonist Start: 09-25-2024 End: 10-06-2024 oxyCODONE hydrochloride 10 m g oral tablet (20 sources) Opioid Agonist Start: 10-16-2024 Start: 09-04-2024 End: 10-16-2024 take 1 tablet by mouth every six hours as needed oxyCODONE IR (ROXICODONE) 5 mg immediate release tablet Indications: Paraspinal mass Take 1-2 tablets by mouth every 6 hours as needed for pain for up to 7 days. FOR PAIN. 30 tablet 10/03/2024 10/10/2024 Active Start: 08-17-2024 End: 09-01-2024 take 1 tablet by mouth every six hours as needed oxyCODONE IR (ROXICODONE) 5 mg immediate release tablet Indications: Paraspinal mass Take 1-2 tablets by mouth every 6 hours as needed for pain for up to 7 days. FOR PAIN. 30 tablet 08/25/2024 09/01/2024 Active PARoxetine hydrochloride 10 mg oral tablet (20 sources) Serotonin Reuptake Inhibitor Start: 07-20-2022 Start: 06-24-2021 PARoxetine 10 mg oral tablet Dose : 10 mg = 1 tab(s), Oral, qDay, # 90 tab(s), 3 Refill(s), Pharmacy: [facility], 177, cm, 05/29/21 9:12:00 EDT, Height Start Date: 06/24/21 Status: Ordered Start: 05-10-2020 End: 05-05-2021 PARoxetine 10 mg oral tablet Dose : 10 mg = 1 tab(s), Oral, qDay, X 90 day(s), # 90 tab(s), 3 Refill(s), 05/05/21 22:09:00 EST, Pharmacy: [facility], 179, cm, 04/25/20 8:58:00 EST, Height, kg, 04/25/20 8:58:00 EST, Dosing Weight Start Date: 05/10/20 Stop Date: 05/05/21 Status: Ordered Comment on above: Take 10 mg by mouth once daily. microencapsulated potassium chloride 20 meq extended release oral tablet (3 sources) Start: 10-19-2024 Start: 09-11-2024 End: 09-25-2024 predniSONE 5 mg oral tablet (20 sources) Start: 09-04-2024 Start: 06-26-2024 End: 09-04-2024 pregabalin 150 mg oral capsu le (20 sources) Start: 01-08-2023 End: 02-18-2024 Start: 08-24-2022 End: 02-20-2023 take 1 capsule by mouth four times daily Pregabalin 150 mg capsule Active 150 mg PO .QID January 08, 2023 12:00am Start: 01-22-2022 End: 06-21-2022 Lyrica 150 mg oral capsule D ose : 150 mg = 1 cap(s), Oral, QID, # 120 cap(s), 4 Refill(s), Pharmacy: [facility], Polyneuropathy, 178, cm, 01/22/22 9:03:00 EST, Height, 98.1, kg, 01/22/22 9:03:00 EST, Dosing Weight Start Date: 01/22/22 Stop Date: 06/21/22 Status: Ordered Start: 07-22-2021 End: 01-18-2022 Lyrica 150 mg oral capsule D ose : 150 mg = 1 cap(s), Oral, QID, # 360 cap(s), 1 Refill(s), Pharmacy: [facility], Polyneuropathy, 177, cm, 05/29/21 9:12:00 EDT, Height, 99.4, kg, 05/29/21 9:12:00 EDT, Dosing Weight Start Date: 07/22/21 Stop Date: 01/18/22 Status: Ordered Start: 01-02-2021 End: 06-01-2021 Lyrica 150 mg oral capsule D ose : 150 mg = 1 cap(s), Oral, QID, # 120 cap(s), 4 Refill(s), Pharmacy: [facility], Polyneuropathy, 178, cm, 01/02/21 9:21:00 EDT, Height, 96.5, kg, 01/02/21 9:21:00 EDT, Dosing Weight Start Date: 01/02/21 Stop Date: 06/01/21 Status: Ordered Start: 09-04-2020 Lyrica 50 mg o ral capsule Dose : 100 mg = 2 cap(s), Oral, BID, Take 1 tablet twice a day the first week of decreased gabapentin dose. Take 2 tablets twice a day the next week, # 120 cap(s), 4 Refill(s), Pharmacy: [facility], Diabetic neuropathy, painful, 17... Start Date: 09/04/20 Status: Ordered Comment on above: Take 150 mg by mouth once daily. roflumilast 0.25 mg oral tablet (20 sources) Phosphodiesterase 4 Inhibitor Start: 02-02-20 23 take 1 tablet by mouth once daily roflumilast (DALIRESP) 250 mcg tablet Take 250 mcg by mouth once daily. 02/01/2023 Active Start: 01-08-2023 take 1 tablet by konrad th once daily Roflumilast 250 mcg tablet Active 250 ug PO DAILY January 08, 2023 12:00am Start: 01-08-2023 take 250 ug by mouth once guru y Roflumilast Active 250 MCG PO DAILY January 07, 2023 11:00pm Start: 01-08-2023 take 250 ug by mouth once guru y Roflumilast Active 250 MCG PO DAILY January 08, 2023 12:00am Start: 07-27-2019 Daliresp 250 m cg oral tablet Dose : 250 mcg = 1 tab(s), Oral, qDay Start Date: 07/27/19 Status: Ordered Comment on above: Take 250 mcg by mout h once daily. semaglutide 14 mg oral tablet (20 sources) Start: 02-25-2023 take 7 mg by mouth once daily RYBELSUS 14 mg tablet Take 7 mg by mouth once daily. 02/25/2023 Active Start: 02-25-2023 take 1 tablet by konrad th once daily RYBELSUS 14 mg tablet Take 14 mg by mouth once daily. 02/25/2023 Active Start: 01-08-2023 take 1 tablet by konrad th once daily Semaglutide (Semaglutide 14 Mg Tablet) 14 mg tablet Active 14 MG PO DAILY January 07, 2023 11:00pm Start: 12-01-2022 take 1 tablet by konrad th once daily Rybelsus 14 mg oral tablet See Instructions, TAKE 1 TABLET EVERY DAY AT LEAST 30 MINUTES BEFORE FIRST FOOD, BEVERAGE OR OTHER ORAL MEDICATIONS., # 90 tab(s), 1 Refill(s), Pharmacy: [facility], 178, cm, 11/12/22 9:17:00 EDT, Height, kg, 11/12/22 9:17:00 EDT, Dosing Weight Start Date: 12/01/22 Status: Ordered Start: 03-16-2022 take 1 tablet by konrad th once daily Rybelsus 14 mg oral tablet See Instructions, TAKE 1 TABLET EVERY DAY AT LEAST 30 MINUTES BEFORE FIRST FOOD, BEVERAGE OR OTHER ORAL MEDICATIONS., # 90 tab(s), 1 Refill(s), Pharmacy: [facility], 178, cm, 01/22/22 9:03:00 EST, Height, kg, 01/22/22 9:03:00 ES... Start Date: 03/16/22 Status: Ordered Start: 09-18-2021 take 1 tablet by konrad once daily Rybelsus 14 mg oral tablet See Instructions, TAKE 1 TABLET EVERY DAY AT LEAST 30 MINUTES BEFORE FIRST FOOD, BEVERAGE OR OTHER ORAL MEDICATIONS., # 90 tab(s), 1 Refill(s), Pharmacy: [facility] ([facility]), 177, cm, 09/18/21 8:45:00... Start Date: 09/18/21 Status: Ordered Start: 03-14-2021 take 1 tablet by konrad th once daily Rybelsus 14 mg oral tablet See Instructions, TAKE 1 TABLET EVERY DAY AT LEAST 30 MINUTES BEFORE FIRST FOOD, BEVERAGE OR OTHER ORAL MEDICATIONS., # 90 tab(s), 1 Refill(s), Pharmacy: [facility], 179, cm, 01/28/21 10:55:00 EST, Height, kg, 01/28/21 10:55:00 EST,... Start Date: 03/14/21 Status: Ordered Start: 09-25-2020 take 1 tablet by konrad th once daily Rybelsus 14 mg oral tablet See Instructions, TAKE 1 TABLET EVERY DAY AT LEAST 30 MINUTES BEFORE FIRST FOOD, BEVERAGE OR OTHER ORAL MEDICATIONS, # 30 tab(s), 5 Refill(s), Pharmacy: [facility], 175.3, cm, 09/04/20 9:37:00 EDT, Height, kg, 09/04/20 9:37:00 EDT,... Start Date: 09/25/20 Status: Ordered Comment on above: Take 14 mg by mouth once daily. Semaglutide (Rybelsus) 7 mg tablet (1 source) Start: 09-04-2024 take 1 tablet by mouth once daily Semaglutide (Rybelsus) 7 mg tablet Active 7 mg PO DAILY September 04, 2024 12:00am tamsulosin hydrochloride 0.4 mg oral capsule (20 sources) alpha-Adrenergic Yajaira Start: 01-08-2023 Start: 01-08-2023 take 1 capsule by mo ut every twenty-four hours Tamsulosin 0.4 mg capsule Active 0.4 mg PO Q24H January 08, 2023 12:00am Start: 01-08-2023 take 1 capsule by mo uth twice daily Tamsulosin 0.4 mg capsule Active 0.4 mg PO TWICE A DAY January 08, 2023 12:00am Start: 07-20-2022 take 2 capsules by m outh once daily at mealtime tamsulosin 0.4 mg oral capsule See Instructions, TAKE 2 CAPSULES BY MOUTH EVERY DAY WITH A MEAL, # 180 cap(s), 3 Refill(s), Pharmacy: [facility] ([facility] 178, cm, 06/11/22 9:39:00 EDT, Height, kg, 06/11/22 9:39:00 EDT, Dosing Weight Start Date: 07/20/22 Status: Ordered Start: 09-17-2021 take 2 capsules by m outh once daily at mealtime tamsulosin 0.4 mg oral capsule See Instructions, TAKE 2 CAPSULES BY MOUTH EVERY DAY WITH A MEAL, # 180 cap(s), 3 Refill(s), Pharmacy: [facility] ([facility]), 177, cm, 05/29/21 9:12:00 EDT, Height, kg, 05/29/21 9:12:00 EDT, Dosing Weight Start Date: 09/17/21 Status: Ordered Start: 08-28-2020 take 2 capsules by m outh once daily at mealtime tamsulosin 0.4 mg oral capsule See Instructions, TAKE 2 CAPSULES BY MOUTH EVERY DAY WITH A MEAL, # 180 cap(s), 3 Refill(s), Pharmacy: [facility], 179, cm, 06/24/20 11:19:00 EDT, Height, kg, 06/24/20 11:19:00 EDT, Dosing Weight Start Date: 08/28/20 Status: Ordered Start: 08-28-2020 take 0.4 mg by mouth once guru y tamsulosin (FLOMAX) 0.4 mg Take 0.4 mg by mouth once daily. 08/28/2020 Active Comment on above: Take 0.4 mg by mouth once daily. Trelegy Ellipta inhalation powder (12 sources) Start: 12-21-2019 take 1 dose by mouth once daily Trelegy Ellipta inhalation powder Dose = 1 puff(s), Inhalation, qDay, at the same time every day. Following administration, rinse mouth with water after use (do not swallow)., # 60 EA, 0 Refill(s) Start Date: 12/21/19 Status: Ordered Vitamin B Complex (Complex B-100) tablet extended release (1 source) Start: 09-04-2024 Vitamin B Complex (Complex B-100) tablet extended release Active 1 {tbl} PO DAILY September 04, 2024 12:00am Vitamin B Complex 100 (3 sources) Start: 03-26-2020 Vitamin B Complex 100 1, Daily, OTC, 0 Refill(s) Start Date: 03/26/20 Status: Ordered VITAMIN B COMPLEX-100 ORAL (20 sources) VITAMIN B COMPLEX-100 ORAL Take by mouth. Active VITAMIN B COMPLE X-100 ORAL Take by mouth. 0 Active Comment on above: Take by mouth. Vitamin D3 125 mcg (5000 intl units) oral capsule (8 sources) Start: 09-18-2021 Vitamin D3 125 mcg (5000 intl units) oral capsule Dose : 5,000 International_Unit = 1 cap(s), Oral, qDay, # 100 cap(s), 1 Refill(s), Pharmacy: [facility] ([facility]), 177, cm, 09/18/21 8:45:00 EDT, Height, kg, 09/18/21 8:45:00 EDT, Dosing Weight Start Date: 09/18/21 Status: Ordered Start: 12-17-2020 Vitamin D3 125 mcg (5000 intl units) oral capsule Dose : 5,000 International_Unit = 1 cap(s), Oral, qDay, # 100 cap(s), 1 Refill(s), Pharmacy: [facility], 178, cm, 11/28/20 9:24:00 EDT, Height, kg, 11/28/20 9:24:00 EDT, Dosing Weight Start Date: 12/17/20 Status: Ordered (10 sources) Start: 09-04-2024 Start: 07-24-2024 End: 09-04-2024 Start: 01-08-2023 Start: 01-08-2023 End: 07-24-2024 Completed/Discontinued Medications Medication Drug Class(es) Dates Sig (Normalized) Sig (Original) acetaminophen 325 mg / HYDROcodone bitartrate 5 mg oral tablet (20 sources) Opioid Agonist Start: 06-19-2024 End: 06-22-2024 Start: 06-19-2024 End: 06-22-2024 Hydrocodone-Acetaminophen 5- 325 mg tablet Discontinued 1 {tbl} PO EVERY 6 HOURS NEEDED as needed for pain 12 June 19, 2024 June 21, 2024 12:00am June 22, 2024 12:11am Start: 05-31-2024 End: 06-17-2024 Hydrocodone-Acetaminophen 5- 325 mg tablet Discontinued 1 {tbl} PO EVERY 6 HOURS NEEDED as needed for pain 12 June 14, 2024 June 16, 2024 12:00am June 17, 2024 12:22am Start: 05-24-2024 End: 06-17-2024 Start: 05-24-2024 End: 05-31-2024 take 1-2 tablets by mouth every four to six hours as needed, then take 8 tablets by mouth once daily as needed Hydrocodone-Acetaminophen 5-325 mg table t Discontinued 1 {tbl} PO EVERY 4-6 HOURS as needed for pain 56 May 24, 2024 May 30, 2024 12:00am May 31, 2024 12:21am take 1-2 tabs PO q4-6h PRN, not to exceed 8 tablets daily Start: 05-10-2024 End: 05-13-2024 Start: 05-10-2024 End: 05-13-2024 Hydrocodone-Acetaminophen 5- 325 mg tablet Discontinued 1 {tbl} PO EVERY 6 HOURS as needed for pain 12 May 10, 2024 May 12, 2024 1:00am May 13, 2024 1:23am fluconazole 200 mg oral tabl et (12 sources) Azole Antifungal Start: 06-23-2024 End: 09-04-2024 furosemide 40 mg oral tablet (20 sources) Loop Diuretic Start: 07-21-2022 End: 09-25-2024 Start: 05-07-2022 furosemide 40 mg oral tablet Dose : 40 mg = 1 tab(s), Oral, qDay, TAKE 1 TABLET BY MOUTH EVERY DAY, # 90 tab(s), 3 Refill(s), Pharmacy: [facility], 180.3, cm, 05/07/22 9:04:00 EST, Height, kg, 05/07/22 9:04:00 EST, Dosing Weight Start Date: 05/07/22 Status: Ordered Start: 05-30-2021 furosemide 40 mg oral tablet Dose : 40 mg = 1 tab(s), Oral, qDay, TAKE 1 TABLET BY MOUTH EVERY DAY, # 90 tab(s), 3 Refill(s), Pharmacy: [facility], 177, cm, 05/29/21 9:12:00 EDT, Height, kg, 05/29/21 9:12:00 EDT, Dosing Weight Start Date: 05/30/21 Status: Ordered Start: 05-23-2020 furosemide 40 mg oral tablet Dose : 40 mg = 1 tab(s), Oral, qDay, TAKE 1 TABLET BY MOUTH EVERY DAY, # 90 tab(s), 3 Refill(s), Pharmacy: [facility], 179, cm, 05/23/20 10:00:00 EST, Height, kg, 05/23/20 10:00:00 EST, Dosing Weight Start Date: 05/23/20 Status: Ordered Comment on above: Take 40 mg by mouth once daily. lisinopril 2.5 mg oral table t (20 sources) Angiotensin Converting Enzyme Inhibitor Start: 01-28-2021 End: 03-22-2024 Comment on above: Take 2.5 mg by mouth once daily. LORazepam 1 mg oral tablet (20 sources) Benzodiazepine Start: 03-03-2023 End: 09-11-2024 Start: 03-03-2023 take 1 tablet by konrad th once daily LORazepam (ATIVAN) 1 mg tablet Take 1 mg by mouth once daily. 03/03/2023 Active Start: 01-08-2023 End: 09-11-2024 Start: 11-12-2022 End: 07-04-2024 take 1 tablet by mouth three times daily Lorazepam 1 mg tablet Discontinued 1 mg PO THREE TIMES A DAY July 04, 2024 5:21pm July 04, 2024 5:22pm Start: 04-27-2022 End: 06-26-2022 take 0.5-1 tablets by mouth three times daily as needed for anxiety LORazepam 1 mg oral tablet 0.5 to 1 tab, Oral, TID, PRN as needed for anxiety, # 90 tab(s), 1 Refill(s), Pharmacy: [facility], Chronic anxiety, 170, cm, 03/30/22 11:22:00 EST, Height, 99.1, kg, 03/30/22 11:22:00 EST, Dosing Weight Start Date: 04/27/22 Stop Date: 06/26/22 Status: Ordered Start: 09-17-2021 End: 11-16-2021 take 0.5-1 tablets by mouth three times daily as needed for anxiety LORazepam 1 mg oral tablet 0.5 to 1 tab, Oral, TID, PRN as needed for anxiety, # 90 tab(s), 1 Refill(s), Pharmacy: [facility] ([facility]), Chronic anxiety, 177, cm, 05/29/21 9:12:00 EDT, Height, 99.4, kg, 05/29/21 9:12:00 EDT, Dosi... Start Date: 09/17/21 Stop Date: 11/16/21 Status: Ordered Start: 01-28-2021 End: 03-29-2021 take 0.5-1 tablets by mouth three times daily as needed for anxiety LORazepam 1 mg oral tablet 0.5 to 1 tab, Oral, TID, PRN as needed for anxiety, # 90 tab(s), 1 Refill(s), Pharmacy: [facility], Chronic anxiety, 179, cm, 01/28/21 10:55:00 EST, Height, 97.1, kg, 01/28/21 10:55:00 EST, Dosing Weight Start Date: 01/28/21 Stop Date: 03/29/21 Status: Ordered Start: 10-29-2020 End: 12-28-2020 take 0.5-1 tablets by mouth three times daily as needed for anxiety LORazepam 1 mg oral tablet 0.5 to 1 tab, Oral, TID, PRN as needed for anxiety, # 90 tab(s), 1 Refill(s), Pharmacy: [facility], Chronic anxiety, 178, cm, 10/29/20 9:24:00 EDT, Height, 98.6, kg, 10/29/20 9:24:00 EDT, Dosing Weight Start Date: 10/29/20 Stop Date: 12/28/20 Status: Ordered Comment on above: Take 1 mg by mouth o nce daily. osmotic 24 hr metFORMIN hydrochloride 500 mg extended release oral tablet (20 sources) Biguanide Start: 05-17-2023 metFORMIN 500 mg oral tablet EXTENDED RELEASE Dose : 1,500 mg = 3 tab(s), Oral, qHS, # 90 tab(s), 3 Refill(s), Pharmacy: [facility], 178.5, cm, 03/11/23 8:41:00 EST, Height, kg, 03/11/23 8:41:00 EST, Dosing Weight Start Date: 05/17/23 Status: Ordered Start: 01-08-2023 End: 03-02-2024 Start: 01-08-2023 take 1000 mg by mout h once daily Metformin Active 1000 MG PO DAILY January 07, 2023 11:00pm Start: 11-09-2022 metFORMIN 500 mg oral tablet EXTENDED RELEASE Dose : 1,500 mg = 3 tab(s), Oral, qHS, # 90 tab(s), 3 Refill(s), Pharmacy: [facility]/pharmacy #[id number], 178, cm, 11/04/22 8:57:00 EDT, Height, kg, 11/04/22 8:57:00 EDT, Dosing Weight Start Date: 11/09/22 Status: Ordered Start: 02-04-2022 metFORMIN 500 mg oral tablet EXTENDED RELEASE Dose : 1,500 mg = 3 tab(s), Oral, qHS, # 270 tab(s), 3 Refill(s), Pharmacy: [facility], 178, cm, 01/22/22 9:03:00 EST, Height, kg, 01/22/22 9:03:00 EST, Dosing Weight Start Date: 02/04/22 Status: Ordered Start: 09-04-2020 End: 03-22-2024 Start: 09-04-2020 End: 03-22-2024 take 1 tablet by mouth every twenty-four hours at bedtime Metformin 500 mg tablet extended release 24hr Discontinued 1500 mg PO AT BEDTIME March 02, 2024 4:42pm March 22, 2024 9:56am Start: 09-04-2020 take 1 tablet by konrad th once daily metFORMIN ER (FORTAMET) 500 mg 24 hr tablet Take 500 mg by mouth once daily. 09/04/2020 Active Start: 09-04-2020 metFORMIN 500 mg oral tablet EXTENDED RELEASE Dose : 1,500 mg = 3 tab(s), Oral, qHS, # 270 tab(s), 3 Refill(s), Pharmacy: [facility], 175.3, cm, 09/04/20 9:37:00 EDT, Height, kg, 09/04/20 9:37:00 EDT, Dosing Weight Start Date: 09/04/20 Status: Ordered Comment on above: Take 500 mg by mouth once daily. nystatin [id number] unt/ml oral suspension (11 sources) Polyene Antifungal Start: 5 End: 5 pantoprazole 40 mg delayed release oral tablet (12 sources) Proton Pump Inhibitor Start: 5 End: 5 Semaglutide (Rybelsus) 14 mg tablet (3 sources) Start: 5 End: 5 take 1 tablet by mouth once daily Semaglutide (Rybelsus) 14 mg tablet Discontinued 7 mg PO DAILY July 24, 2024 10:04am September 04, 2024 10:47am Start: 07-24-2024 take 1 tablet by konrad th once daily Semaglutide (Rybelsus) 14 mg tablet Active 7 mg PO DAILY July 24, 2024 10:04am Semaglutide (Semaglutide 14 Mg Tablet) 14 mg tablet (10 sources) Start: 01-08-2023 End: 07-24-2024 take 1 tablet by mouth once daily Semaglutide (Semaglutide 14 Mg Tablet) 14 mg tablet Discontinued 14 mg PO DAILY January 08, 2023 12:00am July 24, 2024 10:05am Start: 01-08-2023 take 1 tablet by konrad th once daily Semaglutide (Semaglutide 14 Mg Tablet) 14 mg tablet Active 14 mg PO DAILY January 08, 2023 12:00am traMADol hydrochloride 50 mg oral tablet (12 sources) Opioid Agonist Start: 05-10-2024 End: 05-10-2024 VITAMIN D3 125 MCG (5000 UT) Capsule (3 sources) Start: 11-19-2020 VITAMIN D3 125 MCG (5000 UT) Capsule VITAMIN D3 125 MCG (5000 UT) Capsule, See Instructions, TAKE 1 CAPSULE EVERY DAY, # 90 cap(s), 0 Refill(s), [facility], 178, cm, 10/29/20 9:24:00 EDT, Height, 98.6, kg, 10/29/20 9:24:00 EDT, Dosing Weight Start Date: 11/19/20 Status: Ordered Problems Active Problems Problem Classification Problem Date Documented Da te Episodic/Chronic Abdominal hernia (1 source) Umbilical hernia without obstruction or gangrene; Translations: [Umbilical hernia without obstruction or gangrene] Onset: 04-12-2019 Episodic Abdominal pain (20 sources) Left upper quadrant pain; Translations: [Left upper quadrant pain] Onset: 06-13-2024 05-10-2024 Episodic Administrative/social admission (7 sources) First encounter by subject; Translations: [Persons encountering health services in other specified circumstances] 06-14-2024 Episodic Anxiety disorders (20 sources) Chronic anxiety; Translations: [Anxiety] 09-13-2018 Chronic Comment on above: ON MED Aortic; peripheral; and visceral artery aneurysms (20 sources) Aneurysm of infrarenal abdominal aorta ; Translations: [Infrarenal abdominal aortic aneurysm (AAA) without rupture] 05-18-2024 Chronic Comment on above: CTA- images reviewed , 3.8 cm aorta, 2.7 cm left common iliac Bacterial infection; unspecified site (6 sources) Bacteremia due to Staphylococcus aureus; Translations: [Bacteremia] Onset: 09-27-2024 09-07-2024 Episodic Blindness and vision defects (12 sources) Blindness AND/OR vision impairment level; Translations: [Unspecified visual loss] 03-02-2024 Chronic Comment on above: PARTIALLY IN RIGHT E YE Cancer of bronchus; lung (20 sources) Primary malignant neoplasm of upper lobe, bronchus or lung; Translations: [Malignant neoplasm of upper lobe, bronchus or lung] Onset: 02-18-2024 10-10-2019 Chronic Cancer of bronchus; lung (2 sources) History of malignant neoplasm of thoracic cavity structure; Translations: [Personal history of other malignant neoplasm of bronchus and lung] 04-15-2023 Episodic Cancer; other respiratory and intrathoracic (1 source) Malignant neoplasm of lower respiratory tract 07-13-2024 Chronic Chronic kidney disease (20 sources) Chronic kidney disease stage 3; Translations: [Chronic kidney disease] 10-10-2019 Chronic Chronic obstructive pulmonary disease and bronchiectasis (20 sources) Pulmonary emphysema; Translations: [Panacinar emphysema] Onset: 03-19-2023 09-18-2019 Chronic Comment on above: INHALER/NEBULIZER Coronary atherosclerosis and other heart disease (20 sources) Coronary arteriosclerosis; Translations: [Atherosclerotic heart disease of [place] coronary artery without angina pectoris] Onset: 04-24-2024 09-13-2018 Chronic Deficiency and other anemia (8 sources) Anemia; Translations: [Anemia, unspecified] 09-04-2024 Episodic Deficiency and other anemia (1 source) Chronic anemia; Translations: [Anemia, unspecified] 10-19-2024 Episodic Deficiency and other anemia (2 sources) Anemia, unspecified; Translations: [Anemia, unspecified] Onset: 10-05-2024 Episodic Diabetes mellitus with complications (20 sources) Polyneuropathy due to type 2 diabetes mellitus; Translations: [Hyperglycemia due to type 2 diabetes mellitus] Onset: 03-19-2023 07-25-2019 Chronic Diabetes mellitus without complication (20 sources) Diabetes mellitus; Translations: [Type 2 diabetes mellitus without complications] 07-27-2019 Chronic Comment on above: ON MED Disorders of lipid metabolism (20 sources) Hyperlipidemia; Translations: [Hypercholesterolemia ] 09-13-2018 Chronic Comment on above: ON MED Essential hypertension (20 sources) Essential hypertension; Translations: [Hypertensive disorder] Onset: 03-22-2024 10-10-2019 Chronic Comment on above: CONTROLLED WITH MED Fluid and electrolyte disorders (20 sources) Hypokalemia; Translations: [Acute hyponatremia] Onset: 09-27-2024 09-13-2018 Episodic Gangrene (4 sources) Atherosclerosis of [place] arteries of extremities with gangrene, left leg; Translations: [Atherosclerosis of left lower extremity with gangrene] Onset: 10-10-2024 09-21-2024 Chronic Gangrene (5 sources) Gangrene of left foot; Translations: [Gangrene, not elsewhere classified] Onset: 10-05-2024 09-20-2024 Episodic Genitourinary symptoms and ill-defined conditions (16 sources) Slowing of urinary stream; Translations: [H/O: kidney disease] 10-10-2019 Episodic Comment on above: STAGE 3 Hyperplasia of prostate (7 sources) Benign prostatic hyperplasia; Translations: [Benign prostatic hyperplasia without lower urinary tract symptoms] 06-14-2024 Chronic Malaise and fatigue (6 sources) Asthenia; Translations: [Weakness] Onset: 09-27-2024 09-04-2024 Episodic Malignant neoplasm without specification of site (19 sources) Malignant neoplastic disease; Translations: [Malignant (primary) neoplasm, unspecified] 03-02-2024 Chronic Comment on above: LUNG/RIGHT UPPER LOB ECTOMY Mood disorders (12 sources) Depressive disorder; Translations: [Depression] 03-02-2024 Chronic Comment on above: ON MED Nonspecific chest pain (20 sources) Chest pain; Translations: [Chest pain, unspecified] Onset: 04-27-2024 04-27-2024 Episodic Nutritional deficiencies (20 sources) Vitamin D deficiency; Translations: [Vitamin D deficiency, unspecified] 10-10-2019 Chronic Other aftercare (3 sources) Radiotherapy follow-up; Translations: [Encounter for follow-up examination after completed treatment for conditions other than malignant neoplasm] 06-23-2023 Episodic Other aftercare (2 sources) Post-discharge follow-up; Translations: [Encounter for follow-up examination after completed treatment for conditions other than malignant neoplasm] 10-05-2024 Episodic Other aftercare (1 source) Encounter for follow-up examination after completed treatment for conditions other than malignant neoplasm; Translations: [Encounter for follow-up examination after completed treatment for conditions other than malignant neoplasm] Onset: 10-05-2024 Episodic Other circulatory disease (3 sources) Low blood pressure; Translations: [Hypotension, unspecified] 10-19-2024 Episodic Other circulatory disease (2 sources) Hypotension, unspecified; Translations: [Hypotension, unspecified] Onset: 10-19-2024 Episodic Other connective tissue disease (3 sources) Recurrent falls ; Translations: [Repeated falls] 09-04-2024 Episodic Other endocrine disorders (2 sources) Disorder of adrenal gland; Translations: [Other specified disorders of adrenal gland] Chronic Other endocrine disorders (19 sources) Adrenal mass; Translations: [Other specified disorders of adrenal gland] 03-02-2024 Chronic Other gastrointestinal disorders (12 sources) Adrenal mass 10-10-2019 Episodic Other gastrointestinal disorders (4 sources) Incontinence of feces 09-29-2021 Episodic Other lower respiratory disease (12 sources) Dyspnea on exertion; Translations: [Shortness of breath] 03-02-2024 Episodic Comment on above: WITH [address] AIRS OR WITH EXERTION Other lower respiratory disease (1 source) History of chronic obstructive airway disease; Translations: [Personal history of other diseases of the respiratory system] 10-19-2024 Episodic Other nervous system disorders (12 sources) Polyneuropathy 02-05-2020 Chronic Other nervous system disorders (12 sources) Neuropathy; Translations: [Polyneuropathy, unspecified] 03-02-2024 Chronic Comment on above: ON LYRICA Other nervous system disorders (1 source) Other chronic pain; Translations: [Other chronic pain] Onset: 06-14-2024 Chronic Other nutritional; endocrine; and metabolic disorders (3 sources) Obesity 11-12-2022 Chronic Other nutritional; endocrine; and metabolic disorders (10 sources) Weight decreased; Translations: [Abnormal weight loss] 07-24-2024 Episodic Other nutritional; endocrine; and metabolic disorders (1 source) H/O: diabetes mellitus; Translations: [Personal history of other endocrine, nutritional and metabolic disease] 10-19-2024 Episodic Other screening for suspected conditions (not mental disorders or infectious disease) (3 sources) Protein level - finding; Translations: [Other specified abnormal findings of blood chemistry] Onset: 10-19-2024 10-03-2024 Episodic Other skin disorders (4 sources) Mass of back; Translations: [Localized swelling, mass and lump, trunk] 08-17-2024 Episodic Other skin disorders (2 sources) Localized swelling, mass and lump, trunk; Translations: [Paraspinal mass] Onset: 08-17-2024 Episodic Peripheral and visceral atherosclerosis (20 sources) Peripheral vascular disease; Translations: [Peripheral vascular disease, unspecified] Onset: 03-19-2023 11-12-2022 Chronic Pneumonia (except that caused by tuberculosis or sexually transmitted disease) (6 sources) Pneumonia; Translations: [Pneumonia, unspecified organism] Onset: 10-19-2024 09-05-2024 Episodic Residual codes; unclassified (20 sources) Obstructive sleep apnea syndrome 10-10-2019 Chronic Residual codes; unclassified (12 sources) Edema of lower extremity 06-01-2019 Episodic Secondary malignancies (5 sources) Secondary malignant neoplasm of bone; Translations: [Secondary malignant neoplasm of bone] 08-28-2024 Chronic Secondary malignancies (2 sources) Secondary malignant neoplasm of bone; 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)] Onset: 08-30-2024 Chronic Septicemia (except in labor) (12 sources) Sepsis; Translations: [Sepsis, unspecified organism] Onset: 09-27-2024 09-04-2024 Episodic Shock (1 source) Severe sepsis with septic shock; Translations: [Severe sepsis with septic shock] Onset: 09-27-2024 Episodic Substance-related disorders (12 sources) Tobacco dependence syndrome 09-13-2018 Chronic Unclassified (11 sources) Finding of systemic arterial pressure 01-28-2021 Unclassified (11 sources) Patient encounter status 01-28-2021 Unclassified (4 sources) Long-term current use of benzodiazepine 03-30-2022 Unclassified (6 sources) R10.9 - Unspecified abdominal pain,G89.29 - Other chronic pain Unclassified (1 source) Radiology NM Onset: 08-01-2024 Unclassified (1 source) Radiotherapy On-treatment Visit Onset: 10-09-2024 Past or Other Problems Problem Classification Problem Date Documented Da te Episodic/Chronic Other lower respiratory disease (20 sources) Lung mass; Translations: [Other nonspecific abnormal finding of lung field] Onset: 04-02-2023 04-02-2023 Episodic Other lower respiratory disease (2 sources) Wheezing; Translations: [Wheezing] Onset: 05-22-2024 Episodic Other lower respiratory disease (1 source) Shortness of breath; Translations: [Shortness of breath] Onset: 03-22-2024 Episodic Spondylosis; intervertebral disc disorders; other back problems (20 sources) Backache; Translations: [Dorsalgia, unspecified] Onset: 05-10-2024 05-10-2024 Episodic Syncope (13 sources) Syncope; Translations: [Syncope and collapse] Onset: 03-22-2024 03-02-2024 Episodic Comment on above: WITH BRISK OF CHANGE OF POSITION Results Test Name Value Interpretation Reference Range Facility 12 Lead EKGon 10-19-2024 12 Lead EKG Normal [facility] Absolute lymphocyte countOrd ered By: Carroll Celeste on 10-19-2024 Lymphocytes Auto (Unsp spec) [#/Vol] 1.32 10*3/uL 0.83-4.51 [facility] Anion gap in Serum or Plasma Ordered By: Carroll Celeste on 10-19-2024 Anion gap [Moles/Vol] 10 mmol/L 5-15 [facility] Automated lymphocyte count a s percentage of total leukocytesOrdered By: Carroll Celeste on 10-19-2024 Lymphocytes/100 WBC Auto (Unsp spec) 8.8 % Low 19-41 [facility] BUN/creatinine ratioOrdered By: Carroll Celeste on 10-19-2024 Urea nitrogen/Creatinine [Mass ratio] 19.2 mg/mg 10-20 [facility] Basophil percentageOrdered B y: Carroll Celeste on 10-19-2024 Basophils/100 WBC (Bld) 0.1 % 0-1 [facility] Bilirubin Test strip Ql (U)O rdered By: Carroll Celeste on 10-19-2024 Bilirubin Ql (U) Negative Negative [facility] Bilirubin, totalOrdered By: Carroll Celeste on 10-19-2024 Bilirubin [Mass/Vol] 0.30 mg/dL 0.00-1.30 [facility] CBC W/Diff, Automatedon 08-0 7-2024 Absolute Lymph 1.32 X10 3/uL Normal 0.83-4.51 [facility] Comment on above: Performed By: #### L 500.4050, L503.6005, L100.0100 ####[facility] [address] [place], [address] Absolute Neut 12.6 X10 3/uL High 2.0-7.7 [facility] Comment on above: Performed By: #### L 500.4050, L503.6005, L100.0100 ####[facility] [address] [place], [address] Basophils/100 WBC (Bld) 0.1 % Normal 0-1 [facility] Comment on above: Performed By: #### L 500.4050, L503.6005, L100.0100 ####[facility] [address] [place], [address] Eosinophils/100 WBC (Bld) 0.2 % Normal 0-5 [facility] Comment on above: Performed By: #### L 500.4050, L503.6005, L100.0100 ####[facility] [address] [place], [address] Erythrocyte distribution width (RBC) [Ratio] 16.6 % High 11.6-14.6 [facility] Comment on above: Performed By: #### L 500.4050, [id number], L100.0100 ####[facility] [address] [place], [address] Hematocrit (Bld) [Volume fraction] 26.5 % Low 40-54 [facility] Comment on above: Performed By: #### L 500.4050, L503.6005, L100.0100 ####[facility] [address] [place], [address] Hemoglobin (Bld) [Mass/Vol] 7.9 g/dL Low 13.0-16.5 [facility] Comment on above: Performed By: #### L 500.4050, L503.6005, L100.0100 ####[facility] [address] [place], [address] IG% 1.000 High 0.0-0.9 [facility] Comment on above: Result Comment: IG% - Immature Granulocytes (promyelocytes, myelocytes andmetamyelocytes) > 1% indicates that a LEFT SHIFT is Present. Performed By: #### L 500.4050, L503.6005, L100.0100 ####[facility] [address] [place], [address] Lymphocytes/100 WBC (Bld) 8.8 % Low 19-41 [facility] Comment on above: Performed By: #### L 500.4050, L503.6005, L100.0100 ####[facility] [address] [place], [address] MCH (RBC) [Entitic mass] 25.7 pg Low 27.0-32.0 [facility] Comment on above: Performed By: #### L 500.4050, L503.6005, L100.0100 ####[facility] [address] [place], [address] MCHC (RBC) [Mass/Vol] 29.8 g/dL Low 32-36 [facility] Comment on above: Performed By: #### L 500.4050, L503.6005, L100.0100 ####[facility] [address] [place], [address] MCV (RBC) [Entitic vol] 86.3 fL Normal 80-94 [facility] Comment on above: Performed By: #### L 500.4050, L503.6005, L100.0100 ####[facility] [address] [place], [address] Monocytes/100 WBC (Bld) 5.4 % Normal 0-10 [facility] Comment on above: Performed By: #### L 500.4050, L503.6005, L100.0100 ####[facility] [address] [place], [address] Neutrophils/100 WBC (Bld) 84.5 % High 47-70 [facility] Comment on above: Performed By: #### L 500.4050, L503.6005, L100.0100 ####[facility] [address] [place], [address] Nucleated RBC (Bld) [#/Vol] 0 10*3/uL Normal 0-5 [facility] Comment on above: Performed By: #### L 500.4050, L503.6005, L100.0100 ####[facility] [address] [place], [address] Platelet mean volume (Bld) [Entitic vol] 8.9 fL Normal 6.2-12.0 [facility] Comment on above: Performed By: #### L 500.4050, [id number], L100.0100 ####[facility] [address] [place], [address] Platelets (Bld) [#/Vol] 281 10*3/uL Normal 150-450 [facility] Comment on above: Performed By: #### L 500.4050, L503.6005, L100.0100 ####[facility] [address] [place], [address] RBC (Bld) [#/Vol] 3.07 10*6/uL Low 4.6-6.2 [facility] Comment on above: Performed By: #### L 500.4050, L503.6005, L100.0100 ####[facility] [address] [place], [address] RDW SD 52.3 fl High 35.1-43.9 [facility] Comment on above: Performed By: #### L 500.4050, L503.6005, L100.0100 ####[facility] [address] [place], [address] WBC (Bld) [#/Vol] 15.0 10*3/uL High 4.4-11.0 [facility] Comment on above: Performed By: #### L 500.4050, L503.6005, L100.0100 ####[facility] [address] [place], [address] CBC-Complete Blood Cnt No Di ffon 10-19-2024 Erythrocyte distribution width (RBC) [Ratio] 16.5 % High 11.6-14.6 [facility] Comment on above: Performed By: #### L 100.0500 ####[facility] [address] [place], [address] Hematocrit (Bld) [Volume fraction] 29.3 % Low 40-54 [facility] Comment on above: Performed By: #### L 100.0500 ####[facility] [address] [place], [address] Hemoglobin (Bld) [Mass/Vol] 9.0 g/dL Low 13.0-16.5 [facility] Comment on above: Performed By: #### L 100.0500 ####[facility] [address] [place], [address] MCH (RBC) [Entitic mass] 26.6 pg Low 27.0-32.0 [facility] Comment on above: Performed By: #### L 100.0500 ####[facility] [address] [place], [address] MCHC (RBC) [Mass/Vol] 30.7 g/dL Low 32-36 [facility] Comment on above: Performed By: #### L 100.0500 ####[facility] [address] [place], [address] MCV (RBC) [Entitic vol] 86.7 fL Normal 80-94 [facility] Comment on above: Performed By: #### L 100.0500 ####[facility] [address] [place], [address] Platelet mean volume (Bld) [Entitic vol] 9.2 fL Normal 6.2-12.0 [facility] Comment on above: Performed By: #### L 100.0500 ####[facility] [address] [place], [address] Platelets (Bld) [#/Vol] 325 10*3/uL Normal 150-450 [facility] Comment on above: Performed By: #### L 100.0500 ####[facility] [address] [place], [address] RBC (Bld) [#/Vol] 3.38 10*6/uL Low 4.6-6.2 [facility] Comment on above: Performed By: #### L 100.0500 ####[facility] [address] [place], [address] RDW SD 52.0 fl High 35.1-43.9 [facility] Comment on above: Performed By: #### L 100.0500 ####[facility] [address] [place], [address] WBC (Bld) [#/Vol] 22.0 10*3/uL High 4.4-11.0 [facility] Comment on above: Performed By: #### L 100.0500 ####[facility] [address] [place], [address] Carbon dioxide, total [Moles /volume] in Central venous bloodOrdered By: Carroll Celeste on 10-19-2024 CO2 [Moles/Vol] 28.6 mmol/L 21.0-32.0 [facility] Chest PA and Lateralon 10-19 Chest PA and Lateral Normal [facility] Chloride assayOrdered By: Dylan Celeste on 10-19-2024 Chloride [Moles/Vol] 93 mmol/L Low 98-108 [facility] Comprehensive Metabolic Prof ilon 10-19-2024 Albumin [Mass/Vol] 2.9 g/dL Low 3.4-4.8 [facility] Comment on above: Performed By: #### L 500.4050, L503.6005, L100.0100 ####[facility] [address] [place], [address] Albumin/Globulin [Mass ratio] 0.9 {ratio} Normal 0.9-2.4 [facility] Comment on above: Performed By: #### L 500.4050, L503.6005, L100.0100 ####[facility] [address] [place], [address] ALK PHOS 109 U/L Normal 40-129 [facility] Comment on above: Performed By: #### L 500.4050, L503.6005, L100.0100 ####[facility] [address] [place], [address] ALT [Catalytic activity/Vol] 13 U/L Normal <=46 [facility] Comment on above: Performed By: #### L 500.4050, L503.6005, L100.0100 ####[facility] [address] [place], [address] AST [Catalytic activity/Vol] 28 U/L Normal <=37 [facility] Comment on above: Performed By: #### L 500.4050, L503.6005, L100.0100 ####[facility] [address] [place], [address] Bilirubin [Mass/Vol] 0.30 mg/dL Normal 0.00-1.30 [facility] Comment on above: Performed By: #### L 500.4050, L503.6005, L100.0100 ####[facility] [address] [place], [address] BUN/CRE 19.2 RATIO Normal 10-20 [facility] Comment on above: Performed By: #### L 500.4050, L503.6005, L100.0100 ####[facility] [address] [place], [address] Calcium [Mass/Vol] 12.2 mg/dL High 7.6-11.0 [facility] Comment on above: Performed By: #### L 500.4050, L503.6005, L100.0100 ####[facility] [address] [place], [address] Chloride [Moles/Vol] 93 mmol/L Low 98-108 [facility] Comment on above: Performed By: #### L 500.4050, L503.6005, L100.0100 ####[facility] [address] [place], [address] CO2 [Moles/Vol] 28.6 mmol/L Normal 21.0-32.0 [facility] Comment on above: Performed By: #### L 500.4050, L503.6005, L100.0100 ####[facility] [address] [place], [address] Creatinine [Mass/Vol] 0.90 mg/dL Normal 0.70-1.20 [facility] Comment on above: Performed By: #### L 500.4050, L503.6005, L100.0100 ####[facility] [address] [place], [address] ECRCL 78.11 ml/min Normal 50-250 [facility] Comment on above: Performed By: #### L 500.4050, L503.6005, L100.0100 ####[facility] [address] [place], [address] GAP 10 Normal 5-15 [facility] Comment on above: Performed By: #### L 500.4050, L503.6005, L100.0100 ####[facility] [address] [place], [address] GFR/1.73 sq M.predicted among non-blacks MDRD (S/P/Bld) [Vol rate/Area] 93 mL/min/{1.73_m2} Normal >60 [facility] Comment on above: Result Comment: mL/m in/1.73m2 CKD-EPI Creatinine Equation (2020) Performed By: #### L 500.4050, L503.6005, L100.0100 ####[facility] [address] [place], [address] Globulin (S) [Mass/Vol] 3.1 g/dL Normal 2.2-4.2 [facility] Comment on above: Performed By: #### L 500.4050, L503.6005, L100.0100 ####[facility] [address] [place], [address] Glucose [Mass/Vol] 111 mg/dL High 70-99 [facility] Comment on above: Performed By: #### L 500.4050, L503.6005, L100.0100 ####[facility] [address] [place], [address] Potassium [Moles/Vol] 2.9 mmol/L Low 3.3-5.1 [facility] Comment on above: Performed By: #### L 500.4050, L503.6005, L100.0100 ####[facility] [address] [place], [address] Sodium [Moles/Vol] 132 mmol/L Low 133-145 [facility] Comment on above: Performed By: #### L 500.4050, L503.6005, L100.0100 ####[facility] [address] [place], [address] T PROT 5.9 g/dL Normal 5.9-8.4 [facility] Comment on above: Performed By: #### L 500.4050, L503.6005, L100.0100 ####[facility] [address] [place], [address] Urea nitrogen [Mass/Vol] 17 mg/dL Normal 4-19 [facility] Comment on above: Performed By: #### L 500.4050, L503.6005, L100.0100 ####[facility] [address] [place], [address] Emergency Department Summary on 10-19-2024 Emergency Department Summary Normal [facility] Eosinophil percentageOrdered By: Carroll Celeste on 10-19-2024 Eosinophils/100 WBC (Bld) 0.2 % 0-5 [facility] Erythrocyte distribution wid th ratioOrdered By: Carroll Celeste on 10-19-2024 Erythrocyte distribution width (RBC) [Ratio] 16.6 % High 11.6-14.6 [facility] Erythrocyte distribution wid th ratioOrdered By: Angelica Saleh on 10-19-2024 Erythrocyte distribution width (RBC) [Ratio] 16.5 % High 11.6-14.6 [facility] Erythrocyte distribution wid th standard deviationOrdered By: Carroll Celeste on 10-19-2024 Erythrocyte distribution width (RBC) [Ratio] 52.3 fl High 35.1-43.9 [facility] Erythrocyte distribution wid th standard deviationOrdered By: Angelica Saleh on 10-19-2024 Erythrocyte distribution width (RBC) [Ratio] 52.0 fl High 35.1-43.9 [facility] Glomerular filtration rate ( GFR) estimation/1.73 sq m using serum, plasma, or whole bOrdered By: Carroll Celeste on 10-19-2024 GFR/1.73 sq M.predicted among non-blacks MDRD (S/P/Bld) [Vol rate/Area] 93 mL/min/{1.73_m2} >60 [facility] Hematocrit Auto (Bld) [Volum e fraction]Ordered By: Carroll Celeste on 10-19-2024 Hematocrit (Bld) [Volume fraction] 26.5 % Low 40-54 [facility] Hematocrit Auto (Bld) [Volum e fraction]Ordered By: Angelica Saleh on 10-19-2024 Hematocrit (Bld) [Volume fraction] 29.3 % Low 40-54 [facility] Hemoglobin measurementOrdere d By: Carroll Celeste on 10-19-2024 Hemoglobin (Bld) [Mass/Vol] 7.9 g/dL Low 13.0-16.5 [facility] Hemoglobin measurementOrdere d By: Angelica Saleh on 10-19-2024 Hemoglobin (Bld) [Mass/Vol] 9.0 g/dL Low 13.0-16.5 [facility] Immature granulocytes/100 WB C Auto (Bld)Ordered By: Carroll Celeste on 10-19-2024 Immature granulocytes/100 WBC (Bld) 1.000 % High 0.0-0.9 [facility] Ketones Test strip Ql (U)Ord ered By: Carroll Celeste on 10-19-2024 Ketones Ql (U) Negative Negative [facility] Lactic Acidon 10-19-2024 Lactate [Moles/Vol] 1.5 mmol/L Normal 0.0-2.0 [facility] Comment on above: Order Comment: Y Performed By: #### L 500.4054, L503.6005, L100.0100 ####[facility] [address] [place], [address] MCV (mean corpuscular volume ) determinationOrdered By: Carroll Celeste on 10-19-2024 MCV (RBC) [Entitic vol] 86.3 fL 80-94 [facility] MCV (mean corpuscular volume ) determinationOrdered By: Angelica Saleh on 10-19-2024 MCV (RBC) [Entitic vol] 86.7 fL 80-94 [facility] Mean corpuscular hemoglobin (MCH) determinationOrdered By: Carroll Celeste on 10-19-2024 MCH (RBC) [Entitic mass] 25.7 pg Low 27.0-32.0 [facility] Mean corpuscular hemoglobin (MCH) determinationOrdered By: Angelica Saleh on 10-19-2024 MCH (RBC) [Entitic mass] 26.6 pg Low 27.0-32.0 [facility] Monocyte percentageOrdered B y: Carroll Celeste on 10-19-2024 Monocytes/100 WBC (Bld) 5.4 % 0-10 [facility] Mucus LM Ql (Urine sed)Order ed By: Carroll Celeste on 10-19-2024 Mucus Ql (Urine sed) 0 SEEN /hpf [facility] Neutrophil percentageOrdered By: Carroll Celeste on 10-19-2024 Neutrophils/100 WBC (Bld) 84.5 % High 47-70 [facility] Nitrite Test strip Ql (U)Ord ered By: Carroll Celeste on 10-19-2024 Nitrite Ql (U) Negative Negative [facility] No Panel InformationOrdered By: Carroll Celeste on 10-19-2024 28 U/L <38 [facility] Platelet countOrdered By: Dylan Celeste on 10-19-2024 Platelets (Bld) [#/Vol] 281 10*3/uL 150-450 [facility] Platelet countOrdered By: Wilner Saleh on 10-19-2024 Platelets (Bld) [#/Vol] 325 10*3/uL 150-450 [facility] Potassium measurement (mass/ volume)Ordered By: Carroll Celeste on 10-19-2024 Potassium (Unsp spec) [Mass/Vol] 2.9 mmol/L Low 3.3-5.1 [facility] Protein Test strip Ql (U)Ord ered By: Carroll Celeste on 10-19-2024 Protein Ql (U) 15 mg/dl High Negative [facility] RBC Auto (Bld) [#/Vol]Ordere d By: Carroll Celeste on 10-19-2024 RBC (Bld) [#/Vol] 3.07 10*6/uL Low 4.6-6.2 [facility] RBC Auto (Bld) [#/Vol]Ordere d By: Angelica Saleh on 10-19-2024 RBC (Bld) [#/Vol] 3.38 10*6/uL Low 4.6-6.2 [facility] Serum creatinine measurement (mass/volume)Ordered By: Carroll Celeste on 10-19-2024 Creatinine [Mass/Vol] 0.90 mg/dL 0.70-1.20 [facility] Serum globulin measurementOr dered By: Carroll Celeste on 10-19-2024 Globulin (S) [Mass/Vol] 3.1 g/dL 2.2-4.2 [facility] Serum glucose measurement (m ass/volume)Ordered By: Carroll Celeste on 10-19-2024 Glucose [Mass/Vol] 111 mg/dL High 70-99 [facility] Serum or plasma alanine delaney otransferase (ALT) measurementOrdered By: Carroll Celeste on 10-19-2024 ALT [Catalytic activity/Vol] 13 U/L <47 [facility] Serum or plasma albumin alfreda urement (mass/volume)Ordered By: Carroll Celeste on 10-19-2024 Albumin [Mass/Vol] 2.9 g/dL Low 3.4-4.8 [facility] Serum or plasma albumin/glob ulin mass ratioOrdered By: Carroll Celeste on 10-19-2024 Albumin/Globulin [Mass ratio] 0.9 {ratio} 0.9-2.4 [facility] Serum or plasma alkaline debby sphatase measurementOrdered By: Carroll Celeste on 10-19-2024 ALP [Catalytic activity/Vol] 109 U/L 40-129 [facility] Serum or plasma calcium alfreda urement (mass/volume)Ordered By: Carroll Celeste on 10-19-2024 Calcium [Mass/Vol] 12.2 mg/dL High 7.6-11.0 [facility] Serum or plasma urea nitroge n measurement (mass/volume)Ordered By: Carroll Celeste on 10-19-2024 Urea nitrogen [Mass/Vol] 17 mg/dL 4-19 [facility] Sodium levelOrdered By: Carroll Celeste on 10-19-2024 Sodium [Moles/Vol] 132 mmol/L Low 133-145 [facility] Squamous epithelial cells de tection in urine sediment by light microscopyOrdered By: Carroll Celeste on 10-19-2024 Epithelial cells.squamous LM Ql (Urine sed) 0-5 SEEN /hpf 0-5 [facility] Total proteinOrdered By: Johan Celeste on 10-19-2024 Protein [Mass/Vol] 5.9 g/dL 5.9-8.4 [facility] Urinalysis, Completeon 10-19 EPI,SQUAMOUS 0-5 SEEN Normal 0-5 [facility] Comment on above: Order Comment: CLEAN CATCH Performed By: #### L 400.0001 ####[facility] [address] [place], [address] RBC 0-5 SEEN Normal 0-5 [facility] Comment on above: Order Comment: CLEAN CATCH Performed By: #### L 400.0001 ####[facility] [address] [facility] [address] WBC 0-5 SEEN Normal 0-5 [facility] Comment on above: Order Comment: CLEAN CATCH Performed By: #### L 400.0001 ####[facility] [address] [place], [address] BACTERIA 0 SEEN Normal None Seen [facility] Comment on above: Order Comment: CLEAN CATCH Performed By: #### L 400.0001 ####[facility] [address] [place], [address] Mucus Ql (Urine sed) 0 SEEN Normal [facility] Comment on above: Order Comment: CLEAN CATCH Performed By: #### L 400.0001 ####[facility] [address] [place], [address] Urine clarityOrdered By: Johan Celeste on 10-19-2024 Clarity (U) Clear Clear [facility] Urine color determinationOrd ered By: Carroll Celeste on 10-19-2024 Color (U) Yellow Yellow [facility] Urine glucose detectionOrder ed By: Carroll Celeste on 08-07-2025 Glucose Ql (U) Normal mg/dl Normal [facility] Urine leukocyte esterase det ection by dipstickOrdered By: Carroll Celeste on 10-19-2024 Leukocyte esterase Test strip Ql (U) Negative Negative [facility] Urine pHOrdered By: Carroll langley on 10-19-2024 pH (U) 6.5 [pH] 5.0 - 8.0 [facility] Urine sediment bacteria coun t by microscopy (number/high power field)Ordered By: Carroll Celeste on 10-19-2024 Bacteria LM.HPF (Urine sed) [#/Area] 0 /[HPF] None Seen [facility] Urine specific gravity measu rementOrdered By: Carroll Celeste on 10-19-2024 Specific gravity (U) [Rel density] 1.015 1.002-1.03 0 [facility] Urine urobilinogen measureme ntOrdered By: Carroll Celeste on 10-19-2024 Urobilinogen Ql (U) Normal mg/dl Normal [facility] White blood cell (WBC) count Ordered By: Carroll Celeste on 10-19-2024 WBC (Bld) [#/Vol] 15.0 10*3/uL High 4.4-11.0 [facility] White blood cell (WBC) count Ordered By: Angelica Saleh on 10-19-2024 WBC (Bld) [#/Vol] 22.0 10*3/uL High 4.4-11.0 [facility] White blood cell countOrdere d By: Carroll Celeste on 10-19-2024 White blood cell count 0-5 SEEN /hpf 0-5 [facility] CNPNon 10-17-2024 CNPN Telephone (JAMES) REY MEAD ([id number]) 1955 M Date Time Provider Department 10/17/24 VALDEMAR DUNCAN During your visit today, we recorded the following information about you: Elena Goldsmith 10/17/2024 9:50 AM Signed Yg from [facility] home health called stating that patient has been discharged and needs follow up. Please advise if any labs/etc need to be completed with office visit. Please call Wilner gallagher to schedule - [phone] Shilpi Ware RN 10/17/2024 10:11 AM Signed Follow up OV with Dr. Duncan and Dr. Dunaway. No labs. VIPUL Castro Naomi 10/17/2024 3:40 PM Signed Sent [email or web address] message to call and schedule follow up appts laurel Duncan and Gume. No answer and VM is full on both contact numbers. Estefania Perez Elena Goldsmith 10/18/2024 10:52 AM Signed Please call Wilner gallagher to schedule - [phone] Lauryn Ruiz 10/18/2024 3:47 PM Signed Patient is already scheduled to see for a phone visit follow-up on 11/06/24. I called and spoke to Al and scheduled Rey for 10/23/24 @ 3:00 pm he confirmed this date and time Lauryn Haji Allergies As of Date: 10/17/2024 (No Known Allergies) Date Reviewed: 10/09/2024 Reviewed by: Laura Smiley RN - Fully Assessed Reason for Visit: Appointment [186] Prescriptions as of 10/18/2024 - gabapentin (NEURONTIN) 300 mg capsule Take 1 capsule by mouth once daily for 30 days. - acetaminophen (TYLENOL EXTRA STRENGTH) 500 mg tablet Take 1,000 mg by mouth every 6 hours as needed. - insulin 75/25 lispro protamine-lispro units/mL (HUMALOG MIX 75/25 KWIKPEN) 100 unit/mL (75-25) pen Inject 15 Units subcutaneously two times a day with meals. - predniSONE (DELTASONE) 5 mg tablet Take 15 mg by mouth once daily. take three a day to finish course, Dr Hurd - VITAMIN B COMPLEX-100 ORAL Take by mouth. - fluticasone/umeclidin/vilan ter (TRELEGY ELLIPTA INHALATION) Inhale 1 Puff as instructed once daily. - [id number]-VHCXJAKRR-FBVIN TER INHALATION Inhale as instructed. - ALBUTEROL INHALATION Inhale 2 Puffs as instructed every 4 hours as needed. - aspirin 81 mg cap Take 81 mg by mouth once daily. - atorvastatin (LIPITOR) 20 mg tablet Take 20 mg by mouth once daily. - albuterol (PROVENTIL) 2.5 mg /3 mL (0.083 %) nebulizer solution Use 2.5 mg via nebulizer every 4 hours as needed. - albuterol HFA (PROVENTIL HFA, VENTOLIN HFA) 90 mcg/actuation inhaler Inhale 1-2 Puffs as instructed every 4 hours as needed. - FARXIGA 5 mg tablet Take 5 mg by mouth once daily. - furosemide (LASIX) 40 mg tablet Take 40 mg by mouth once daily. - lisinopril 2.5 mg tablet Take 2.5 mg by mouth once daily. - LORazepam (ATIVAN) 1 mg tablet Take 1 mg by mouth every 6 hours as needed. - metFORMIN ER (FORTAMET) 500 mg 24 hr tablet Take one tablet by mouth in AM AND two tablets in PM. - metoprolol tartrate, short acting, (LOPRESSOR) 50 mg tablet Take 50 mg by mouth once daily. - PARoxetine (PAXIL) 10 mg tablet Take 10 mg by mouth once daily. - pregabalin (LYRICA) 150 mg capsule Take 150 mg by mouth once daily. - roflumilast (DALIRESP) 250 mcg tablet Take 250 mcg by mouth once daily. - RYBELSUS 14 mg tablet Take 7 mg by mouth once daily. - tamsulosin (FLOMAX) 0.4 mg Take 0.4 mg by mouth once daily. - L.acid/L.casei/B.bif/B.link/ FOS (PROBIOTIC BLEND ORAL) Take 1 capsule by mouth once daily. 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*03/19/2023 Lung mass [R91.8] 04/02/2023 Squamous cell carcinoma of left lung (HCC) [C34*08/28/2024 Encounter Status:Closed by LAURYN RUIZ on 10/18/24 Normal [facility] CNOVon 10-09-2024 CNOV Office Visit (RADTWS ) REY MEAD ([id number]) 1955 M Date Time Provider Department 10/09/24 10:15 AM VA DUNAWAY During your visit today, we recorded the following information about you: Temperature Pulse Respiration Blood pressure 97.4 degrees 96/minute 20/minute 87/53 Laura Smiley RN 10/09/2024 10:51 AM Signed Radiation Therapy - Nursing Note (OTV) PATIENT NAME: Rey Mead PATIENT October 09, 2024 [facility] FACILITY/LOCATION: [place] NURSING NOTE TYPE: MEDICARE SALES REPRESENTATIVE Subjective Data See pain assessment Additional Data Do you want to see a Churn Driller Helper? No Status: Patient is male Stress Scale: On a scale of 0 to 10, what number best describes how much distress you have experienced in the past week?(0 being no distress and 10 being extreme distress) 5 Social work notified: Pt denied need to see social science instructor at this time. Nursing Assessment Fatigue: none Appetite: good Nutritional Intake: Regular oral intake. Weight Gain/Loss: Not applicable Ambulatory weight history: Last 6 Encounter Wt Readings: Date: Wt: 08/28/2024 0 kg () 08/17/2024 83.9 kg (185 lb) 08/17/2024 83.9 kg (185 lb) 07/13/2024 88 kg (194 lb) 03/07/2024 98.2 kg (216 lb 8 oz) 12/01/2023 98.2 kg (216 lb 8 oz) Nausea:None Vomiting: None Bowel Function: normal bowel movements Erythema/Hyperpigmentation: none Desquamation:dry desquamation Rash:none Skin Care: None Skin Sensation: mild itching Focused Assessment MEDICARE SALES REPRESENTATIVE: Alopecia: no. Headache: none. Vision changes: none. Arm/leg numbness: none. Limb coordination: mild. Memory changes: none. Syncope: none. Disorientation: none. Seizures: none. Hearing changes: No. 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 EXAM: KPS: 60 General Appearance: Alert and oriented. No acute distress. Radiation dermatitis: No IMAGING/LAB RESULTS: None Treatment chart checked: Yes Patient treatment site reviewed and verified:Yes Port films reviewed and current:Yes Medications started: None ASSESSMENT/PLAN: Clinically stable. No significant treatment-related side effects The patient has completed radiotherapy as planned. Acute and delayed side effects were reviewed. 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 FOR PAIN. - gabapentin (NEURONTIN) 300 mg capsule Take 1 capsule by mouth once daily for 30 days. - acetaminophen (TYLENOL EXTRA STRENGTH) 500 mg tablet Take 1,000 mg by mouth every 6 hours as needed. - insulin 75/25 lispro protamine-lispro units/mL (HUMALOG MIX 75/25 KWIKPEN) 100 unit/mL (75-25) pen Inject 15 Units subcutaneously two times a day with meals. - predniSONE (DELTASONE) 5 mg tablet Take 15 mg by mouth once daily. take three a day to finish course, Dr Hurd - VITAMIN B COMPLEX-100 ORAL Take by mouth. - fluticasone/umeclidin/vilan ter (TRELEGY ELLIPTA INHALATION) Inhale 1 Puff as instructed once daily. - JCGZRFMLNQO-JVPFQLQKD-DQYZL TER INHALATION Inhale as instructed. - ALBUTEROL INHALATION Inhale 2 Puffs as instructed every 4 hours as needed. - aspirin 81 mg cap Take 81 mg by mouth once daily. - atorvastatin (LIPITOR) 20 mg tablet Take 20 mg by mouth once daily. - albuterol (PROVENTIL) 2.5 mg /3 mL (0.083 %) nebulizer solution Use 2.5 mg via nebulizer every 4 hours as needed. - albuterol HFA (PROVENTIL HFA, VENTOLIN HFA) 90 mcg/actuation inhaler Inhale 1-2 Puffs as instructed every 4 hours as needed. - FARXIGA 5 mg tablet Take 5 mg by mouth once daily. - furosemide (LASIX) 40 mg tablet Take 40 mg by mouth once daily. - lisinopril 2.5 mg tablet Take 2.5 mg by mouth once daily. - LORazepam (ATIVAN) 1 mg tablet Take 1 mg by mouth every 6 hours as needed. - metFORMIN ER (FORTAMET) 500 mg 24 hr tablet Take one tablet by mouth in AM AND two tablets in PM. - metoprolol tartrate, short acting, (LOPRESSOR) 50 mg tablet Take 50 mg by mouth once daily. - P (more content not included)... Normal [facility] [place] 10-09-2024 TAWNY Telephone (JAMES) REY MEAD ([id number]) 1955 M Date Time Provider Department 10/09/24 VALDEMAR DUNCAN During your visit today, we recorded the following information about you: Elena Goldsmith 10/09/2024 10:34 AM Signed Please fax most recent med onc note to [facility] for palliative care at [phone] attn: Adarsh. Ilana Neal LPN 10/09/2024 11:49 AM Signed Note faxed as requested. Ilana Neal LPN Allergies As of Date: 10/09/2024 (No Known Allergies) Date Reviewed: 10/09/2024 Reviewed by: Laura Smiley RN - Fully Assessed Reason for Visit: Electronic Communication [890] Prescriptions as of 10/09/2024 - oxyCODONE IR (ROXICODONE) 5 mg immediate release tablet Take 1-2 tablets by mouth every 6 hours as needed for pain for up to 7 days. FOR PAIN. - gabapentin (NEURONTIN) 300 mg capsule Take 1 capsule by mouth once daily for 30 days. - acetaminophen (TYLENOL EXTRA STRENGTH) 500 mg tablet Take 1,000 mg by mouth every 6 hours as needed. - insulin 75/25 lispro protamine-lispro units/mL (HUMALOG MIX 75/25 KWIKPEN) 100 unit/mL (75-25) pen Inject 15 Units subcutaneously two times a day with meals. - predniSONE (DELTASONE) 5 mg tablet Take 15 mg by mouth once daily. take three a day to finish course, Dr Hurd - VITAMIN B COMPLEX-100 ORAL Take by mouth. - fluticasone/umeclidin/vilan ter (TRELEGY ELLIPTA INHALATION) Inhale 1 Puff as instructed once daily. - ZPSQBTYZWTC-QIPUFPBGI-CJWNC TER INHALATION Inhale as instructed. - ALBUTEROL INHALATION Inhale 2 Puffs as instructed every 4 hours as needed. - aspirin 81 mg cap Take 81 mg by mouth once daily. - atorvastatin (LIPITOR) 20 mg tablet Take 20 mg by mouth once daily. - albuterol (PROVENTIL) 2.5 mg /3 mL (0.083 %) nebulizer solution Use 2.5 mg via nebulizer every 4 hours as needed. - albuterol HFA (PROVENTIL HFA, VENTOLIN HFA) 90 mcg/actuation inhaler Inhale 1-2 Puffs as instructed every 4 hours as needed. - FARXIGA 5 mg tablet Take 5 mg by mouth once daily. - furosemide (LASIX) 40 mg tablet Take 40 mg by mouth once daily. - lisinopril 2.5 mg tablet Take 2.5 mg by mouth once daily. - LORazepam (ATIVAN) 1 mg tablet Take 1 mg by mouth every 6 hours as needed. - metFORMIN ER (FORTAMET) 500 mg 24 hr tablet Take one tablet by mouth in AM AND two tablets in PM. - metoprolol tartrate, short acting, (LOPRESSOR) 50 mg tablet Take 50 mg by mouth once daily. - PARoxetine (PAXIL) 10 mg tablet Take 10 mg by mouth once daily. - pregabalin (LYRICA) 150 mg capsule Take 150 mg by mouth once daily. - roflumilast (DALIRESP) 250 mcg tablet Take 250 mcg by mouth once daily. - RYBELSUS 14 mg tablet Take 7 mg by mouth once daily. - tamsulosin (FLOMAX) 0.4 mg Take 0.4 mg by mouth once daily. - L.acid/L.casei/B.bif/B.link/ FOS (PROBIOTIC BLEND ORAL) Take 1 capsule by mouth once daily. 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 Automated lymphocyte count a s percentage of total leukocytesOrdered By: Nishi Garnett on 10-05-2024 Lymphocytes/100 WBC Auto (Unsp spec) 17.7 % Low 19- [facility] BRCon 10-05-2024 RC Normal [facility] Comment on above: Result Comment: [id number] AP RC TRANSFUSED 10/05/24 [id number] AP RC TRANSFUSED 10/05/242041 Performed By: #### B , [facility] ####[facility] [address] [place], [address] BUN/creatinine ratioOrdered By: Nishi Garnett on 10-05-2024 Urea nitrogen/Creatinine [Mass ratio] 12.0 mg/mg 10- [facility] Basophil percentageOrdered B y: Nishi Garnett on 10-05-2024 Basophils/100 WBC (Bld) 0.2 % 0- [facility] Bilirubin, totalOrdered By: Nishi Garnett on 10-05-2024 Bilirubin [Mass/Vol] 0.41 mg/dL 0.00-1.30 [facility] CBC W/Diff, Automatedon 09-13 Absolute Lymph 1.82 X10 3/uL Normal 0.83-4.51 [facility] Comment on above: Performed By: #### L 100.0100, L500.4050 ####[facility] [address] [place], [address] Absolute Neut 7.2 X10 3/uL Normal 2.0-7.7 [facility] Comment on above: Performed By: #### L 100.0100, [id number] ####[facility] [address] [place], [address] Basophils/100 WBC (Bld) 0.2 % Normal 0-1 [facility] Comment on above: Performed By: #### L 100.0100, [id number] ####[facility] [address] [place], [address] Eosinophils/100 WBC (Bld) 0.3 % Normal 0-5 [facility] Comment on above: Performed By: #### L 100.0100, [id number] ####[facility] [address] [place], [address] Erythrocyte distribution width (RBC) [Ratio] 18.0 % High 11.6-14.6 [facility] Comment on above: Performed By: #### L 100.0100, [id number] ####[facility] [address] [place], [address] Hematocrit (Bld) [Volume fraction] 22.9 % Low 40-54 [facility] Comment on above: Performed By: #### L 100.0100, [id number] ####[facility] [address] [place], [address] Hemoglobin (Bld) [Mass/Vol] 6.6 g/dL Low 13.0-16.5 [facility] Comment on above: Performed By: #### L 100.0100, [id number] ####[facility] [address] [place], [address] IG% 2.000 High 0.0-0.9 [facility] Comment on above: Result Comment: IG% - Immature Granulocytes (promyelocytes, myelocytes andmetamyelocytes) > 1% indicates that a LEFT SHIFT is Present. Performed By: #### L 100.0100, L500.4050 ####[facility] [address] [place], [address] Lymphocytes/100 WBC (Bld) 17.7 % Low 19-41 [facility] Comment on above: Performed By: #### L 100.0100, [id number] ####[facility] [address] [place], [address] MCH (RBC) [Entitic mass] 26.1 pg Low 27.0-32.0 [facility] Comment on above: Performed By: #### L 100.0100, [id number] ####[facility] [address] [place], [address] MCHC (RBC) [Mass/Vol] 28.8 g/dL Low 32-36 [facility] Comment on above: Performed By: #### L 100.0100, [id number] ####[facility] [address] [place], [address] MCV (RBC) [Entitic vol] 90.5 fL Normal 80-94 [facility] Comment on above: Performed By: #### L 100.0100, [id number] ####[facility] [address] [place], [address] Monocytes/100 WBC (Bld) 9.4 % Normal 0-10 [facility] Comment on above: Performed By: #### L 100.0100, [id number] ####[facility] [address] [place], [address] Neutrophils/100 WBC (Bld) 70.4 % High 47-70 [facility] Comment on above: Performed By: #### L 100.0100, [id number] ####[facility] [address] [place], [address] Nucleated RBC (Bld) [#/Vol] 0 10*3/uL Normal 0-5 [facility] Comment on above: Performed By: #### L 100.0100, [id number] ####[facility] [address] [place], [address] Platelet mean volume (Bld) [Entitic vol] 9.6 fL Normal 6.2-12.0 [facility] Comment on above: Performed By: #### L 100.0100, [id number] ####[facility] [address] [place], [address] Platelets (Bld) [#/Vol] 349 10*3/uL Normal 150-450 [facility] Comment on above: Performed By: #### L 100.0100, [id number] ####[facility] [address] [place], [address] RBC (Bld) [#/Vol] 2.53 10*6/uL Low 4.6-6.2 [facility] Comment on above: Performed By: #### L 100.0100, [id number] ####[facility] [address] [place], [address] RDW SD 59.3 fl High 35.1-43.9 [facility] Comment on above: Performed By: #### L 100.0100, [id number] ####[facility] [address] [place], [address] WBC (Bld) [#/Vol] 10.3 10*3/uL Normal 4.4-11.0 [facility] Comment on above: Performed By: #### L 100.0100, [id number] ####[facility] [address] [place], [address] CBC-Complete Blood Cnt No Di ffon 10-05-2024 Erythrocyte distribution width (RBC) [Ratio] 18.1 % High 11.6-14.6 [facility] Comment on above: Performed By: #### L 100.0500 ####[facility] [address] [place], [address] Hematocrit (Bld) [Volume fraction] 21.1 % Low 40-54 [facility] Comment on above: Performed By: #### L 100.0500 ####[facility] [address] [place], [address] Hemoglobin (Bld) [Mass/Vol] 6.4 g/dL Low 13.0-16.5 [facility] Comment on above: Performed By: #### L 100.0500 ####[facility] [address] [place], [address] MCH (RBC) [Entitic mass] 27.1 pg Normal 27.0-32.0 [facility] Comment on above: Performed By: #### L 100.0500 ####[facility] [address] [place], [address] MCHC (RBC) [Mass/Vol] 30.3 g/dL Low 32-36 [facility] Comment on above: Performed By: #### L 100.0500 ####[facility] [address] [place], [address] MCV (RBC) [Entitic vol] 89.4 fL Normal 80-94 [facility] Comment on above: Performed By: #### L 100.0500 ####[facility] [address] [place], [address] Platelet mean volume (Bld) [Entitic vol] 9.4 fL Normal 6.2-12.0 [facility] [facility] Comment on above: Performed By: #### L 100.0500 ####[facility] [address] [place], [address] Platelets (Bld) [#/Vol] 304 10*3/uL Normal 150-450 [facility] Comment on above: Performed By: #### L 100.0500 ####[facility] [address] [place], [address] RBC (Bld) [#/Vol] 2.36 10*6/uL Low 4.6-6.2 [facility] Comment on above: Performed By: #### L 100.0500 ####[facility] [address] [place], [address] RDW SD 58.8 fl High 35.1-43.9 [facility] Comment on above: Performed By: #### L 100.0500 ####[facility] [address] [place], [address] WBC (Bld) [#/Vol] 8.6 10*3/uL Normal 4.4-11.0 [facility] Comment on above: Performed By: #### L 100.0500 ####[facility] [address] [place], [address] Carbon dioxide, total [Moles /volume] in Central venous bloodOrdered By: Nishi Garnett on 10-05-2024 CO2 [Moles/Vol] 28.1 mmol/L 21.0-32.0 [facility] Chloride assayOrdered By: Dylan Garnett on 10-05-2024 Chloride [Moles/Vol] 94 mmol/L Low 98-108 [facility] Comprehensive Metabolic Prof ilon 10-05-2024 Albumin [Mass/Vol] 2.8 g/dL Low 3.4-4.8 [facility] Comment on above: Performed By: #### L 100.0100, L500.4050 ####[facility] [address] [place], [address] Albumin/Globulin [Mass ratio] 0.8 {ratio} Low 0.9-2.4 [facility] Comment on above: Performed By: #### L 100.0100, L500.4050 ####[facility] [address] [place], [address] ALK PHOS 105 U/L Normal 40-129 [facility] Comment on above: Performed By: #### L 100.0100, L500.4050 ####[facility] [address] [place], [address] ALT [Catalytic activity/Vol] 28 U/L Normal <=46 [facility] Comment on above: Performed By: #### L 100.0100, L500.4050 ####[facility] [address] [place], [address] AST [Catalytic activity/Vol] 22 U/L Normal <=37 [facility] Comment on above: Performed By: #### L 100.0100, L500.4050 ####[facility] [address] [place], [address] Bilirubin [Mass/Vol] 0.41 mg/dL Normal 0.00-1.30 [facility] Comment on above: Performed By: #### L 100.0100, L500.4050 ####[facility] [address] [place], [address] BUN/CRE 12.0 RATIO Normal 10-20 [facility] Comment on above: Performed By: #### L 100.0100, L500.4050 ####[facility] [address] [place], [address] Calcium [Mass/Vol] 10.4 mg/dL Normal 7.6-11.0 [facility] Comment on above: Performed By: #### L 100.0100, L500.4050 ####[facility] [address] [place], [address] Chloride [Moles/Vol] 94 mmol/L Low 98-108 [facility] Comment on above: Performed By: #### L 100.0100, L500.4050 ####[facility] [address] [place], [address] CO2 [Moles/Vol] 28.1 mmol/L Normal 21.0-32.0 [facility] Comment on above: Performed By: #### L 100.0100, L500.4050 ####[facility] [address] [place], [address] Creatinine [Mass/Vol] 0.68 mg/dL Low 0.70-1.20 [facility] Comment on above: Performed By: #### L 100.0100, L500.4050 ####[facility] [address] [place], [address] GAP 10 Normal 5-15 [facility] Comment on above: Performed By: #### L 100.0100, L500.4050 ####[facility] [address] [place], [address] GFR/1.73 sq M.predicted among non-blacks MDRD (S/P/Bld) [Vol rate/Area] 101 mL/min/{1.73_m2} Normal >60 [facility] Comment on above: Result Comment: mL/m in/1.73m2 CKD-EPI Creatinine Equation (2020) Performed By: #### L 100.0100, L500.4050 ####[facility] [address] [place], [address] Globulin (S) [Mass/Vol] 3.3 g/dL Normal 2.2-4.2 [facility] Comment on above: Performed By: #### L 100.0100, L500.4050 ####[facility] [address] [place], [address] Glucose [Mass/Vol] 87 mg/dL Normal 70-99 [facility] Comment on above: Performed By: #### L 100.0100, L500.4050 ####[facility] [address] [place], [address] Potassium [Moles/Vol] 3.8 mmol/L Normal 3.3-5.1 [facility] Comment on above: Performed By: #### L 100.0100, L500.4050 ####[facility] [address] [place], [address] Sodium [Moles/Vol] 132 mmol/L Low 133-145 [facility] Comment on above: Performed By: #### L 100.0100, L500.4050 ####[facility] [address] [place], [address] T PROT 6.0 g/dL Normal 5.9-8.4 [facility] Comment on above: Performed By: #### L 100.0100, L500.4050 ####[facility] [address] [place], [address] Urea nitrogen [Mass/Vol] 8 mg/dL Normal 4-19 [facility] Comment on above: Performed By: #### L 100.0100, L500.4050 ####[facility] [address] [place], [address] Emergency Department Summary on 10-05-2024 Emergency Department Summary Normal [facility] Eosinophil percentageOrdered By: Nishi Garnett on 10-05-2024 Eosinophils/100 WBC (Bld) 0.3 % 0-5 [facility] Erythrocyte distribution wid th ratioOrdered By: Aden Stahl on 10-05-2024 Erythrocyte distribution width (RBC) [Ratio] 18.1 % High 11.6-14.6 [facility] Erythrocyte distribution wid th ratioOrdered By: Nishi Garnett on 10-05-2024 Erythrocyte distribution width (RBC) [Ratio] 18.0 % High 11.6-14.6 [facility] Erythrocyte distribution wid th standard deviationOrdered By: Aden Stahl on 10-05-2024 Erythrocyte distribution width (RBC) [Ratio] 58.8 fl High 35.1-43.9 [facility] Erythrocyte distribution wid th standard deviationOrdered By: Nishi Garnett on 10-05-2024 Erythrocyte distribution width (RBC) [Ratio] 59.3 fl High 35.1-43.9 [facility] Glomerular filtration rate ( GFR) estimation/1.73 sq m using serum, plasma, or whole bOrdered By: Nishi Garnett on 10-05-2024 GFR/1.73 sq M.predicted among non-blacks MDRD (S/P/Bld) [Vol rate/Area] 101 mL/min/{1.73_m2} >60 [facility] Hematocrit Auto (Bld) [Volum e fraction]Ordered By: Aden Stahl on 10-05-2024 Hematocrit (Bld) [Volume fraction] 21.1 % Low 40-54 [facility] Hematocrit Auto (Bld) [Volum e fraction]Ordered By: Nishi Garnett on 10-05-2024 Hematocrit (Bld) [Volume fraction] 22.9 % Low 40-54 [facility] Hemoglobin measurementOrdere d By: Aden Stahl on 10-05-2024 Hemoglobin (Bld) [Mass/Vol] 6.4 g/dL Low 13.0-16.5 [facility] Hemoglobin measurementOrdere d By: Nishi Garnett on 10-05-2024 Hemoglobin (Bld) [Mass/Vol] 6.6 g/dL Low 13.0-16.5 [facility] Immature granulocytes/100 WB C Auto (Bld)Ordered By: Nishi Garnett on 10-05-2024 Immature granulocytes/100 WBC (Bld) 2.000 % High 0.0-0.9 [facility] Internal Medicine Office Vis iton 10-05-2024 Internal Medicine Office Visit Normal [facility] MCV (mean corpuscular volume ) determinationOrdered By: Aden Stahl on 10-05-2024 MCV (RBC) [Entitic vol] 89.4 fL 80-94 [facility] MCV (mean corpuscular volume ) determinationOrdered By: Nishi Garnett on 10-05-2024 MCV (RBC) [Entitic vol] 90.5 fL 80-94 [facility] Mean corpuscular hemoglobin (MCH) determinationOrdered By: Aden Stahl on 10-05-2024 MCH (RBC) [Entitic mass] 27.1 pg 27.0-32.0 [facility] Mean corpuscular hemoglobin (MCH) determinationOrdered By: Nishi Garnett on 10-05-2024 MCH (RBC) [Entitic mass] 26.1 pg Low 27.0-32.0 [facility] Monocyte percentageOrdered B y: Nishi Garnett on 10-05-2024 Monocytes/100 WBC (Bld) 9.4 % 0-10 [facility] Neutrophil percentageOrdered By: Nishi Garnett on 10-05-2024 Neutrophils/100 WBC (Bld) 70.4 % High 47-70 [facility] No Panel InformationOrdered By: Nishi Garnett on 10-05-2024 22 U/L <38 [facility] Platelet countOrdered By: Wilner Stahl on 10-05-2024 Platelets (Bld) [#/Vol] 304 10*3/uL 150-450 [facility] Platelet countOrdered By: Dylan Garnett on 10-05-2024 Platelets (Bld) [#/Vol] 349 10*3/uL 150-450 [facility] Potassium measurement (mass/ volume)Ordered By: Nishi Garnett on 10-05-2024 Potassium (Unsp spec) [Mass/Vol] 3.8 mmol/L 3.3-5.1 [facility] RBC Auto (Bld) [#/Vol]Ordere d By: Aden Stahl on 10-05-2024 RBC (Bld) [#/Vol] 2.36 10*6/uL Low 4.6-6.2 [facility] RBC Auto (Bld) [#/Vol]Ordere d By: Nishi Garnett on 10-05-2024 RBC (Bld) [#/Vol] 2.53 10*6/uL Low 4.6-6.2 [facility] Serum creatinine measurement (mass/volume)Ordered By: Nishi Garnett on 10-05-2024 Creatinine [Mass/Vol] 0.68 mg/dL Low 0.70-1.20 [facility] Serum globulin measurementOr dered By: Nishi Garnett on 10-05-2024 Globulin (S) [Mass/Vol] 3.3 g/dL 2.2-4.2 [facility] Serum glucose measurement (m ass/volume)Ordered By: Nishi Garnett on 10-05-2024 Glucose [Mass/Vol] 87 mg/dL 70-99 [facility] Serum or plasma alanine delaney otransferase (ALT) measurementOrdered By: Nishi Garnett on 10-05-2024 ALT [Catalytic activity/Vol] 28 U/L <47 [facility] Serum or plasma albumin alfreda urement (mass/volume)Ordered By: Nishi Garnett on 10-05-2024 Albumin [Mass/Vol] 2.8 g/dL Low 3.4-4.8 [facility] Serum or plasma albumin/glob ulin mass ratioOrdered By: Nishi Garnett on 10-05-2024 Albumin/Globulin [Mass ratio] 0.8 {ratio} Low 0.9-2.4 [facility] Serum or plasma alkaline debby sphatase measurementOrdered By: Nishikathy Garnett on 10-05-2024 ALP [Catalytic activity/Vol] 105 U/L 40-129 [facility] Serum or plasma calcium alfreda urement (mass/volume)Ordered By: Nishi Garnett on 10-05-2024 Calcium [Mass/Vol] 10.4 mg/dL 7.6-11.0 [facility] Serum or plasma urea nitroge n measurement (mass/volume)Ordered By: Nishi Garnett on 10-05-2024 Urea nitrogen [Mass/Vol] 8 mg/dL 4-19 [facility] Sodium levelOrdered By: Grecia Garnett on 10-05-2024 Sodium [Moles/Vol] 132 mmol/L Low 133-145 [facility] Total proteinOrdered By: Yue Garnett on 10-05-2024 Protein [Mass/Vol] 6.0 g/dL 5.9-8.4 [facility] Type AND Screenon 10-05-2024 Ab SCREEN GEL Negative Normal [facility] Comment on above: Order Comment: Order Date: 10/05/24CMV NEG? NNumber of units to transfuse: 2Is pt's Hgb is = to 7.0 mg/dl or Hct </= 21%? YReason for Ordering Blood: ChronicAre the blood/blood products to be transfused? YIs the patient having/had surgery? Lionel Brian Performed By: #### B , [facility] ####[facility] [address] [place], [address] White blood cell (WBC) count Ordered By: Aden Stahl on 10-05-2024 WBC (Bld) [#/Vol] 8.6 10*3/uL 4.4-11.0 [facility] White blood cell (WBC) count Ordered By: Nishi Garnett on 10-05-2024 WBC (Bld) [#/Vol] 10.3 10*3/uL 4.4-11.0 [facility] CNPNon 10-02-2024 CNPN Telephone (RADTWS) REY MEAD ([id number]) 1955 M Date Time Provider Department 10/02/24 [facility] During your visit today, we recorded the following information about you: Enriqueta Amado, VIPUL 10/02/2024 2:44 PM Signed Albertina OT for [facility], called to report that patient is home with home health and is anxious to resume radiation when able. 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 Patient's blood pressures are low and he drops to 60's/40's when going from sitting to standing. Patient would like assurances that he he puts in the great effort to get her for treatment that he will be treated. I advised Albertina that I could not guarantee that if he comes in he will without fail be treated. PCP stopped Metoprolol today and pt is hopeful that he will be stable enough to come in on Wednesday for treatment. Dr Dunaway aware and willing if stable. will call with an update on . Therapists aware. Enriqueta Amado, RN 10/05/2024 1:42 PM Signed Madeleine AUGUSTIN from [facility] called to report that pt's BP has stabilized. Pt followed up with PCP today as well. Pt wants to come in tomorrow to resume radiation. Dr Dunaway aware and pt ok to resume. Therapists aware and scheduled. Pt's friend that transports him is Al and I called him and notified him of the appointment at [phone]. Madeleine notified as well at [phone]. Allergies As of Date: 10/02/2024 (No Known Allergies) Date Reviewed: 08/28/2024 Reviewed by: Enriqueta Amado RN - Fully Assessed Prescriptions as of 10/05/2024 - oxyCODONE IR (ROXICODONE) 5 mg immediate release tablet Take 1-2 tablets by mouth every 6 hours as needed for pain for up to 7 days. FOR PAIN. - gabapentin (NEURONTIN) 300 mg capsule Take 1 capsule by mouth once daily for 30 days. - acetaminophen (TYLENOL EXTRA STRENGTH) 500 mg tablet Take 1,000 mg by mouth every 6 hours as needed. - insulin 75/25 lispro protamine-lispro units/mL (HUMALOG MIX 75/25 KWIKPEN) 100 unit/mL (75-25) pen Inject 15 Units subcutaneously two times a day with meals. - predniSONE (DELTASONE) 5 mg tablet Take 15 mg by mouth once daily. take three a day to finish course, Dr Hurd - VITAMIN B COMPLEX-100 ORAL Take by mouth. - fluticasone/umeclidin/vilan ter (TRELEGY ELLIPTA INHALATION) Inhale 1 Puff as instructed once daily. - DIQMHVJVJNQ-KDZMWLCKN-LXASL TER INHALATION Inhale as instructed. - ALBUTEROL INHALATION Inhale 2 Puffs as instructed every 4 hours as needed. - aspirin 81 mg cap Take 81 mg by mouth once daily. - atorvastatin (LIPITOR) 20 mg tablet Take 20 mg by mouth once daily. - albuterol (PROVENTIL) 2.5 mg /3 mL (0.083 %) nebulizer solution Use 2.5 mg via nebulizer every 4 hours as needed. - albuterol HFA (PROVENTIL HFA, VENTOLIN HFA) 90 mcg/actuation inhaler Inhale 1-2 Puffs as instructed every 4 hours as needed. - FARXIGA 5 mg tablet Take 5 mg by mouth once daily. - furosemide (LASIX) 40 mg tablet Take 40 mg by mouth once daily. - lisinopril 2.5 mg tablet Take 2.5 mg by mouth once daily. - LORazepam (ATIVAN) 1 mg tablet Take 1 mg by mouth every 6 hours as needed. - metFORMIN ER (FORTAMET) 500 mg 24 hr tablet Take one tablet by mouth in AM AND two tablets in PM. - metoprolol tartrate, short acting, (LOPRESSOR) 50 mg tablet Take 50 mg by mouth once daily. - PARoxetine (PAXIL) 10 mg tablet Take 10 mg by mouth once daily. - pregabalin (LYRICA) 150 mg capsule Take 150 mg by mouth once daily. - roflumilast (DALIRESP) 250 mcg tablet Take 250 mcg by mouth once daily. - RYBELSUS 14 mg tablet Take 7 mg by mouth once daily. - tamsulosin (FLOMAX) 0.4 mg Take 0.4 mg by mouth once daily. - L.acid/L.casei/B.bif/B.link/ FOS (PROBIOTIC BLEND ORAL) Take 1 capsule by mouth once daily. 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/19/2023 Lung mass [R91.8] 04/02/2023 Squamous cell carcinoma of left lung (HCC) [C34*08/28/2024 Encounter Status:Closed by ENRIQUETA AMADO on 10/05/24 Normal [facility] Bedside Glucoseon 09-25-2024 FINGERSTICK GLU 259 mg/dL High 74-106 [facility] Comment on above: Result Comment: JEFRY GEMENT OF PATIENT CARE PER NURSING PROTOCOL Performed By: #### L 501.080 ####[facility] [address] [place], [address] FINGERSTICK GLU 210 mg/dL High 74-106 [facility] Comment on above: Result Comment: JEFRY GEMENT OF PATIENT CARE PER NURSING PROTOCOL Performed By: #### L 501.080 ####[facility] [address] [place], [address] FINGERSTICK GLU 152 mg/dL High 74-106 [facility] Comment on above: Result Comment: JEFRY GEMENT OF PATIENT CARE PER NURSING PROTOCOL Performed By: #### L 501.080 ####[facility] [address] [place], [address] Culture, Blood (WB)on 2024 CUB Blood cultures x2, f rom two different sites No growth in 5 days. Normal [facility] Comment on above: Performed By: #### M 200.1000 ####[facility] [address] [place], [address] [facility] deOrdered By: Naresh Florez on 09-25-2024 Glucose [Mass/Vol] 259 mg/dL High [address] [facility] Bedside Glucoseon 09-24-2024 FINGERSTICK GLU 229 mg/dL High [facility]106 [facility] Comment on above: Result Comment: JEFRY GEMENT OF PATIENT CARE PER NURSING PROTOCOL Performed By: #### L 501.080 ####[facility] [address] [place], [address] FINGERSTICK GLU 196 mg/dL High [facility]106 [facility] Comment on above: Result Comment: JEFRY GEMENT OF PATIENT CARE PER NURSING PROTOCOL Performed By: #### L 501.080 ####[facility] [address] [place], [address] FINGERSTICK GLU 222 mg/dL High [facility]106 [facility] Comment on above: Result Comment: JEFRY GEMENT OF PATIENT CARE PER NURSING PROTOCOL Performed By: #### L 501.080 ####[facility] [address] [place], [address] FINGERSTICK GLU 194 mg/dL High [facility]106 [facility] Comment on above: Result Comment: JEFRY GEMENT OF PATIENT CARE PER NURSING PROTOCOL Performed By: #### L 501.080 ####[facility] [address] [place], [address] Bedside Glucoseon 09-23-2024 FINGERSTICK GLU 276 mg/dL High 74-106 [facility] Comment on above: Result Comment: JEFRY GEMENT OF PATIENT CARE PER NURSING PROTOCOL Performed By: #### L 501.080 ####[facility] [address] [place], [address] FINGERSTICK GLU 264 mg/dL High 74-106 [facility] Comment on above: Result Comment: JEFRY GEMENT OF PATIENT CARE PER NURSING PROTOCOL Performed By: #### L 501.080 ####[facility] [address] [place], [address] FINGERSTICK GLU 278 mg/dL High -106 [facility] Comment on above: Result Comment: JEFRY GEMENT OF PATIENT CARE PER NURSING PROTOCOL Performed By: #### L 501.080 ####[facility] [address] [place], [address] FINGERSTICK GLU 211 mg/dL High [facility]106 [facility] Comment on above: Result Comment: JEFRY GEMENT OF PATIENT CARE PER NURSING PROTOCOL Performed By: #### L 501.080 ####[facility] [address] [place], [address] Absolute lymphocyte countOrd ered By: Naresh Florez on 09-22-2024 Lymphocytes Auto (Unsp spec) [#/Vol] 0.70 10*3/uL Low 0.83-4.51 [facility] Anion gap in Serum or Plasma Ordered By: Naresh Florez on 09-22-2024 Anion gap [Moles/Vol] 7 mmol/L 5-15 [facility] Automated lymphocyte count a s percentage of total leukocytesOrdered By: Naresh Florez on 09-22-2024 Lymphocytes/100 WBC Auto (Unsp spec) 11.5 % Low 19-41 [facility] BUN/creatinine ratioOrdered By: Naresh Florez on 09-22-2024 Urea nitrogen/Creatinine [Mass ratio] 10.7 mg/mg 10- [facility] Basic Metabolic Profile (BMP )on 09-22-2024 BUN/CRE 10.7 RATIO Normal - [facility] Comment on above: Performed By: #### L 500.2500, L100.0100 ####[facility] [address] [place], [address] Calcium [Mass/Vol] 10.4 mg/dL Normal 7.6-11.0 [facility] Comment on above: Performed By: #### L 500.2500, L100.0100 ####[facility] [address] [place], [address] Chloride [Moles/Vol] 99 mmol/L Normal 98-108 [facility] Comment on above: Performed By: #### L 500.2500, L100.0100 ####[facility] [address] [place], [address] CO2 [Moles/Vol] 27.9 mmol/L Normal 21.0-32.0 [facility] Comment on above: Performed By: #### L 500.2500, L100.0100 ####[facility] [address] [place], [address] Creatinine [Mass/Vol] 0.81 mg/dL Normal 0.70-1.20 [facility] Comment on above: Performed By: #### L 500.2500, L100.0100 ####[facility] [address] [place], [address] ECRCL 87.28 ml/min Normal 50-250 [facility] Comment on above: Performed By: #### L 500.2500, L100.0100 ####[facility] [address] [place], [address] GAP 7 Normal 5-15 [facility] Comment on above: Performed By: #### L 500.2500, L100.0100 ####[facility] [address] [place], [address] GFR/1.73 sq M.predicted among non-blacks MDRD (S/P/Bld) [Vol rate/Area] 96 mL/min/{1.73_m2} Normal >60 [facility] Comment on above: Result Comment: mL/m in/1.73m2 CKD-EPI Creatinine Equation (2020) Performed By: #### L 500.2500, L100.0100 ####[facility] [address] [place], [address] Glucose [Mass/Vol] 123 mg/dL High 70-99 [facility] Comment on above: Performed By: #### L 500.2500, L100.0100 ####[facility] [address] [place], [address] Potassium [Moles/Vol] 3.7 mmol/L Normal 3.3-5.1 [facility] Comment on above: Performed By: #### L 500.2500, L100.0100 ####[facility] [address] [place], [address] Sodium [Moles/Vol] 134 mmol/L Normal 133-145 [facility] Comment on above: Performed By: #### L 500.2500, L100.0100 ####[facility] [address] [place], [address] Urea nitrogen [Mass/Vol] 9 mg/dL Normal 4-19 [facility] Comment on above: Performed By: #### L 500.2500, L100.0100 ####[facility] [address] [place], [address] Basophil percentageOrdered B y: Naresh Florez on 09-22-2024 Basophils/100 WBC (Bld) 0.2 % 0-1 [facility] Bedside Glucoseon 09-22-2024 FINGERSTICK GLU 238 mg/dL High 74-106 [facility] Comment on above: Result Comment: JEFRY GEMENT OF PATIENT CARE PER NURSING PROTOCOL Performed By: #### L 501.080 ####[facility] [address] [place], [address] FINGERSTICK GLU 202 mg/dL High 74-106 [facility] Comment on above: Result Comment: JEFRY GEMENT OF PATIENT CARE PER NURSING PROTOCOL Performed By: #### L 501.080 ####[facility] [address] [place], [address] FINGERSTICK GLU 173 mg/dL High 74-106 [facility] Comment on above: Result Comment: JEFRY GEMENT OF PATIENT CARE PER NURSING PROTOCOL Performed By: #### L 501.080 ####[facility] [address] [place], [address] FINGERSTICK GLU 171 mg/dL High 74-106 [facility] Comment on above: Result Comment: JEFRY GEMENT OF PATIENT CARE PER NURSING PROTOCOL Performed By: #### L 501.080 ####[facility] [address] [place], [address] CBC W/Diff, Automatedon 07-1 -2024 Absolute Lymph 0.70 X10 3/uL Low 0.83-4.51 [facility] Comment on above: Performed By: #### L 500.2500, L100.0100 ####[facility] [address] [place], [address] Absolute Neut 4.9 X10 3/uL Normal 2.0-7.7 [facility] Comment on above: Performed By: #### L 500.2500, L100.0100 ####[facility] [address] [place], [address] Basophils/100 WBC (Bld) 0.2 % Normal 0-1 [facility] Comment on above: Performed By: #### L 500.2500, L100.0100 ####[facility] [address] [place], [address] Eosinophils/100 WBC (Bld) 0.3 % Normal 0-5 [facility] Comment on above: Performed By: #### L 500.2500, L100.0100 ####[facility] [address] [place], [address] Erythrocyte distribution width (RBC) [Ratio] 17.7 % High 11.6-14.6 [facility] Comment on above: Performed By: #### L 500.2500, L100.0100 ####[facility] [address] [place], [address] Hematocrit (Bld) [Volume fraction] 23.3 % Low 40-54 [facility] Comment on above: Performed By: #### L 500.2500, L100.0100 ####[facility] [address] [place], [address] Hemoglobin (Bld) [Mass/Vol] 7.1 g/dL Low 13.0-16.5 [facility] Comment on above: Performed By: #### L 500.2500, L100.0100 ####[facility] [address] [place], [address] IG% 1.000 High 0.0-0.9 [facility] Comment on above: Result Comment: IG% - Immature Granulocytes (promyelocytes, myelocytes andmetamyelocytes) > 1% indicates that a LEFT SHIFT is Present. Performed By: #### L 500.2500, L100.0100 ####[facility] [address] [place], [address] Lymphocytes/100 WBC (Bld) 11.5 % Low 19-41 [facility] Comment on above: Performed By: #### L 500.2500, L100.0100 ####[facility] [address] [place], [address] MCH (RBC) [Entitic mass] 27.3 pg Normal 27.0-32.0 [facility] Comment on above: Performed By: #### L 500.2500, L100.0100 ####[facility] [address] [place], [address] MCHC (RBC) [Mass/Vol] 30.5 g/dL Low 32-36 [facility] Comment on above: Performed By: #### L 500.2500, L100.0100 ####[facility] [address] [place], [address] MCV (RBC) [Entitic vol] 89.6 fL Normal 80-94 [facility] Comment on above: Performed By: #### L 500.2500, L100.0100 ####[facility] [address] [place], [address] Monocytes/100 WBC (Bld) 5.8 % Normal 0-10 [facility] Comment on above: Performed By: #### L 500.2500, L100.0100 ####[facility] [address] [place], [address] Neutrophils/100 WBC (Bld) 81.2 % High 47-70 [facility] Comment on above: Performed By: #### L 500.2500, L100.0100 ####[facility] [address] [place], [address] Nucleated RBC (Bld) [#/Vol] 0 10*3/uL Normal 0-5 [facility] Comment on above: Performed By: #### L 500.2500, L100.0100 ####[facility] [address] [place], [address] Platelet mean volume (Bld) [Entitic vol] 10.4 fL Normal 6.2-12.0 [facility] Comment on above: Performed By: #### L 500.2500, L100.0100 ####[facility] [address] [place], [address] Platelets (Bld) [#/Vol] 126 10*3/uL Low 150-450 [facility] Comment on above: Performed By: #### L 500.2500, L100.0100 ####[facility] [address] [place], [address] RBC (Bld) [#/Vol] 2.60 10*6/uL Low 4.6-6.2 [facility] Comment on above: Performed By: #### L 500.2500, L100.0100 ####[facility] [address] [place], [address] RDW SD 58.4 fl High 35.1-43.9 [facility] Comment on above: Performed By: #### L 500.2500, L100.0100 ####[facility] [address] [place], [address] WBC (Bld) [#/Vol] 6.1 10*3/uL Normal 4.4-11.0 [facility] Comment on above: Performed By: #### L 500.2500, L100.0100 ####[facility] [address] [place], [address] Carbon dioxide, total [Moles /volume] in Central venous bloodOrdered By: Naresh Florez on 09-22-2024 CO2 [Moles/Vol] 27.9 mmol/L 21.0-32.0 [facility] Chloride assayOrdered By: Shelton Florez on 09-22-2024 Chloride [Moles/Vol] 99 mmol/L 98-108 [facility] Eosinophil percentageOrdered By: Naresh Florez on 09-22-2024 Eosinophils/100 WBC (Bld) 0.3 % 0-5 [facility] Erythrocyte distribution wid th ratioOrdered By: Naresh Florez on 09-22-2024 Erythrocyte distribution width (RBC) [Ratio] 17.7 % High 11.6-14.6 [facility] Erythrocyte distribution wid th standard deviationOrdered By: Naresh Florez on 09-22-2024 Erythrocyte distribution width (RBC) [Ratio] 58.4 fl High 35.1-43.9 [facility] Glomerular filtration rate ( GFR) estimation/1.73 sq m using serum, plasma, or whole bOrdered By: Naresh Florez on 09-22-2024 GFR/1.73 sq M.predicted among non-blacks MDRD (S/P/Bld) [Vol rate/Area] 96 mL/min/{1.73_m2} >60 [facility] Hematocrit Auto (Bld) [Volum e fraction]Ordered By: Naresh Florez on 09-22-2024 Hematocrit (Bld) [Volume fraction] 23.3 % Low 40-54 [facility] Hemoglobin measurementOrdere d By: Naresh Florez on 09-22-2024 Hemoglobin (Bld) [Mass/Vol] 7.1 g/dL Low 13.0-16.5 [facility] Immature granulocytes/100 WB C Auto (Bld)Ordered By: Naresh Florez on 09-22-2024 Immature granulocytes/100 WBC (Bld) 1.000 % High 0.0-0.9 [facility] MCV (mean corpuscular volume ) determinationOrdered By: Naresh Florez on 09-22-2024 MCV (RBC) [Entitic vol] 89.6 fL 80-94 [facility] Mean corpuscular hemoglobin (MCH) determinationOrdered By: Naresh Florez on 09-22-2024 MCH (RBC) [Entitic mass] 27.3 pg 27.0-32.0 [facility] Monocyte percentageOrdered B y: Naresh Florez on 09-22-2024 Monocytes/100 WBC (Bld) 5.8 % 0-10 [facility] Neutrophil percentageOrdered By: Naresh Florez on 09-22-2024 Neutrophils/100 WBC (Bld) 81.2 % High 47-70 [facility] Platelet countOrdered By: Shelton Florez on 09-22-2024 Platelets (Bld) [#/Vol] 126 10*3/uL Low 150-450 [facility] Potassium measurement (mass/ volume)Ordered By: Naresh Florez on 09-22-2024 Potassium (Unsp spec) [Mass/Vol] 3.7 mmol/L 3.3-5.1 [facility] RBC Auto (Bld) [#/Vol]Ordere d By: Naresh Florez on 09-22-2024 RBC (Bld) [#/Vol] 2.60 10*6/uL Low 4.6-6.2 [facility] Serum creatinine measurement (mass/volume)Ordered By: Naresh Florez on 09-22-2024 Creatinine [Mass/Vol] 0.81 mg/dL 0.70-1.20 [facility] Serum glucose measurement (m ass/volume)Ordered By: Naresh Florez on 09-22-2024 Glucose [Mass/Vol] 123 mg/dL High 70-99 [facility] Serum or plasma calcium alfreda urement (mass/volume)Ordered By: Naresh Florez on 09-22-2024 Calcium [Mass/Vol] 10.4 mg/dL 7.6-11.0 [facility] Serum or plasma urea nitroge n measurement (mass/volume)Ordered By: Naresh Florez on 09-22-2024 Urea nitrogen [Mass/Vol] 9 mg/dL 4-19 [facility] Sodium levelOrdered By: Naresh Florez on 09-22-2024 Sodium [Moles/Vol] 134 mmol/L 133-145 [facility] White blood cell (WBC) count Ordered By: Naresh Florez on 09-22-2024 WBC (Bld) [#/Vol] 6.1 10*3/uL 4.4-11.0 [facility] AST(SGOT)on 09-21-2024 AST [Catalytic activity/Vol] 29 U/L Normal <=37 [facility] Comment on above: Performed By: #### L 300.3900, L100.0100, L300.4310, L501.4100, L500.2500, L501.4405 ####[facility] [address] [place], [place], [id number] Activated partial thrombopla stin time (aPTT) in platelet poor plasma by coagulation aOrdered By: Jameel Lakhani on 09-21-2024 aPTT Coag (PPP) [Time] 43.3 s High 24.1-36.2 [facility] Alanine Aminotransferas (SGP T)on 09-21-2024 ALT [Catalytic activity/Vol] 35 U/L Normal <=46 [facility] Comment on above: Performed By: #### L 300.3900, L100.0100, L300.4310, L501.4100, L500.2500, L501.4405 ####[facility] [address] [place], [address] Basic Metabolic Profile (BMP )on 09-21-2024 BUN/CRE 10.9 RATIO Normal 10-20 [facility] Comment on above: Performed By: #### L 300.3900, L100.0100, L300.4310, L501.4100, L500.2500, L501.4405 ####[facility] [address] [place], [address] Calcium [Mass/Vol] 10.3 mg/dL Normal 7.6-11.0 [facility] Comment on above: Performed By: #### L 300.3900, L100.0100, L300.4310, L501.4100, L500.2500, L501.4405 ####[facility] [address] [place], [address] Chloride [Moles/Vol] 100 mmol/L Normal 98-108 [facility] Comment on above: Performed By: #### L 300.3900, L100.0100, L300.4310, L501.4100, L500.2500, L501.4405 ####[facility] [address] [place], [address] CO2 [Moles/Vol] 26.8 mmol/L Normal 21.0-32.0 [facility] Comment on above: Performed By: #### L 300.3900, L100.0100, L300.4310, L501.4100, L500.2500, L501.4405 ####[facility] [address] [place], [address] Creatinine [Mass/Vol] 0.90 mg/dL Normal 0.70-1.20 [facility] Comment on above: Performed By: #### L 300.3900, L100.0100, L300.4310, L501.4100, L500.2500, L501.4405 ####[facility] [address] [place], [address] ECRCL 78.56 ml/min Normal 50-250 [facility] Comment on above: Performed By: #### L 300.3900, L100.0100, L300.4310, L501.4100, L500.2500, L501.4405 ####[facility] [address] [place], [address] GAP 9 Normal 5-15 [facility] Comment on above: Performed By: #### L 300.3900, L100.0100, L300.4310, L501.4100, L500.2500, L501.4405 ####[facility] [address] [place], [address] GFR/1.73 sq M.predicted among non-blacks MDRD (S/P/Bld) [Vol rate/Area] 93 mL/min/{1.73_m2} Normal >60 [facility] Comment on above: Result Comment: mL/m in/1.73m2 CKD-EPI Creatinine Equation (2020) Performed By: #### L 300.3900, L100.0100, L300.4310, L501.4100, L500.2500, L501.4405 ####[facility] [address] [place], [address] Glucose [Mass/Vol] 140 mg/dL High 70-99 [facility] Comment on above: Performed By: #### L 300.3900, L100.0100, L300.4310, L501.4100, L500.2500, L501.4405 ####[facility] [address] [place], [address] Potassium [Moles/Vol] 4.1 mmol/L Normal 3.3-5.1 [facility] Comment on above: Performed By: #### L 300.3900, L100.0100, L300.4310, L501.4100, L500.2500, L501.4405 ####[facility] [address] [place], [address] Sodium [Moles/Vol] 136 mmol/L Normal 133-145 [facility] Comment on above: Performed By: #### L 300.3900, L100.0100, L300.4310, L501.4100, L500.2500, L501.4405 ####[facility] [address] [place], [address] Urea nitrogen [Mass/Vol] 10 mg/dL Normal 4-19 [facility] Comment on above: Performed By: #### L 300.3900, L100.0100, L300.4310, L501.4100, L500.2500, L501.4405 ####[facility] [address] [place], [address] Bedside Glucoseon 09-21-2024 FINGERSTICK GLU 111 mg/dL High 74-106 [facility] Comment on above: Result Comment: JEFRY GEMENT OF PATIENT CARE PER NURSING PROTOCOL Performed By: #### L 501.080 ####[facility] [address] [place], [address] FINGERSTICK GLU 193 mg/dL High 74-106 [facility] Comment on above: Result Comment: JEFRY GEMENT OF PATIENT CARE PER NURSING PROTOCOL Performed By: #### L 501.080 ####[facility] [address] [place], [address] FINGERSTICK GLU 196 mg/dL High 74-106 [facility] Comment on above: Result Comment: JEFRY GEMENT OF PATIENT CARE PER NURSING PROTOCOL Performed By: #### L 501.080 ####[facility] [address] [place], [address] FINGERSTICK GLU 180 mg/dL High 74-106 [facility] Comment on above: Result Comment: JEFRY GEMENT OF PATIENT CARE PER NURSING PROTOCOL Performed By: #### L 501.080 ####[facility] [address] [place], [address] CBC W/Diff, Automatedon 07-1 0-2024 Absolute Lymph 0.53 X10 3/uL Low 0.83-4.51 [facility] Comment on above: Performed By: #### L 300.3900, L100.0100, L300.4310, L501.4100, L500.2500, L501.4405 ####[facility] [address] [place], [address] Absolute Neut 6.5 X10 3/uL Normal 2.0-7.7 [facility] Comment on above: Performed By: #### L 300.3900, L100.0100, L300.4310, L501.4100, L500.2500, L501.4405 ####[facility] [address] [place], [address] Basophils/100 WBC (Bld) 0.3 % Normal 0-1 [facility] Comment on above: Performed By: #### L 300.3900, L100.0100, L300.4310, L501.4100, L500.2500, L501.4405 ####[facility] [address] [place], [address] Eosinophils/100 WBC (Bld) 0.3 % Normal 0-5 [facility] Comment on above: Performed By: #### L 300.3900, L100.0100, L300.4310, L501.4100, L500.2500, L501.4405 ####[facility] [address] [place], [address] Erythrocyte distribution width (RBC) [Ratio] 17.9 % High 11.6-14.6 [facility] Comment on above: Performed By: #### L 300.3900, L100.0100, L300.4310, L501.4100, L500.2500, L501.4405 ####[facility] [address] [place], [address] Hematocrit (Bld) [Volume fraction] 24.2 % Low 40-54 [facility] Comment on above: Performed By: #### L 300.3900, L100.0100, L300.4310, L501.4100, L500.2500, L501.4405 ####[facility] [address] [place], [address] Hemoglobin (Bld) [Mass/Vol] 7.3 g/dL Low 13.0-16.5 [facility] Comment on above: Performed By: #### L 300.3900, L100.0100, L300.4310, L501.4100, L500.2500, L501.4405 ####[facility] [address] [place], [address] IG% 0.800 Normal 0.0-0.9 [facility] Comment on above: Result Comment: IG% - Immature Granulocytes (promyelocytes, myelocytes andmetamyelocytes) > 1% indicates that a LEFT SHIFT is Present. Performed By: #### L 300.3900, L100.0100, L300.4310, L501.4100, L500.2500, L501.4405 ####[facility] [address] [place], [address] Lymphocytes/100 WBC (Bld) 7.0 % Low 19-41 [facility] Comment on above: Performed By: #### L 300.3900, L100.0100, L300.4310, L501.4100, L500.2500, L501.4405 ####[facility] [address] [place], [address] MCH (RBC) [Entitic mass] 27.9 pg Normal 27.0-32.0 [facility] Comment on above: Performed By: #### L 300.3900, L100.0100, L300.4310, L501.4100, L500.2500, L501.4405 ####[facility] [address] [place], [address] MCHC (RBC) [Mass/Vol] 30.2 g/dL Low 32-36 [facility] Comment on above: Performed By: #### L 300.3900, L100.0100, L300.4310, L501.4100, L500.2500, L501.4405 ####[facility] [address] [place], [address] MCV (RBC) [Entitic vol] 92.4 fL Normal 80-94 [facility] Comment on above: Performed By: #### L 300.3900, L100.0100, L300.4310, L501.4100, L500.2500, L501.4405 ####[facility] [address] [place], [address] Monocytes/100 WBC (Bld) 5.7 % Normal 0-10 [facility] Comment on above: Performed By: #### L 300.3900, L100.0100, L300.4310, L501.4100, L500.2500, L501.4405 ####[facility] [address] [place], [address] Neutrophils/100 WBC (Bld) 85.9 % High 47-70 [facility] Comment on above: Performed By: #### L 300.3900, L100.0100, L300.4310, L501.4100, L500.2500, L501.4405 ####[facility] [address] [place], [address] Nucleated RBC (Bld) [#/Vol] 0 10*3/uL Normal 0-5 [facility] Comment on above: Performed By: #### L 300.3900, L100.0100, L300.4310, L501.4100, L500.2500, L501.4405 ####[facility] [address] [place], [address] Platelet mean volume (Bld) [Entitic vol] 11.0 fL Normal 6.2-12.0 [facility] Comment on above: Performed By: #### L 300.3900, L100.0100, L300.4310, L501.4100, L500.2500, L501.4405 ####[facility] [address] [place], [address] Platelets (Bld) [#/Vol] 138 10*3/uL Low 150-450 [facility] Comment on above: Performed By: #### L 300.3900, L100.0100, L300.4310, L501.4100, L500.2500, L501.4405 ####[facility] [address] [place], [address] RBC (Bld) [#/Vol] 2.62 10*6/uL Low 4.6-6.2 [facility] Comment on above: Performed By: #### L 300.3900, L100.0100, L300.4310, L501.4100, L500.2500, L501.4405 ####[facility] [address] [place], [address] RDW SD 60.6 fl High 35.1-43.9 [facility] Comment on above: Performed By: #### L 300.3900, L100.0100, L300.4310, L501.4100, L500.2500, L501.4405 ####[facility] [address] [place], [address] WBC (Bld) [#/Vol] 7.6 10*3/uL Normal 4.4-11.0 [facility] Comment on above: Performed By: #### L 300.3900, L100.0100, L300.4310, L501.4100, L500.2500, L501.4405 ####[facility] [address] [place], [address] Consultation - Surgicalon Consultation - Surgical Normal [facility] No Panel InformationOrdered By: Jameel Lakhani on 09-21-2024 29 U/L <38 [facility] Partial Thromboplast Timeon 09-21-2024 aPTT Coag (Bld) [Time] 43.3 s High 24.1-36.2 [facility] Comment on above: Performed By: #### L 300.3900, L100.0100, L300.4310, L501.4100, L500.2500, L501.4405 ####[facility] [address] [place], [address] Prothrombin Time w/INRon INR Coag (PPP) [Relative time] 1.0 {INR} Normal [facility] Comment on above: Performed By: #### L 300.3900, L100.0100, L300.4310, L501.4100, L500.2500, L501.4405 ####[facility] [address] [place], [address] PT Coag (PPP) [Time] 13.7 s Normal 11.7-14.9 [facility] Comment on above: Performed By: #### L 300.3900, L100.0100, L300.4310, L501.4100, L500.2500, L501.4405 ####[facility] [address] [place], [address] Prothrombin timeOrdered By: Jameel Lakhani on 09-21-2024 PT Coag (PPP) [Time] 13.7 s 11.7-14.9 [facility] Serum or plasma alanine delaney otransferase (ALT) measurementOrdered By: Jameel Lakhani on 09-21-2024 ALT [Catalytic activity/Vol] 35 U/L <47 [facility] Basic Metabolic Profile (BMP )on 09-20-2024 BUN/CRE 12.9 RATIO Normal 10-20 [facility] Comment on above: Performed By: #### L 501.2300, L500.2500, L100.0100 ####[facility] [address] [place], [address] Calcium [Mass/Vol] 10.0 mg/dL Normal 7.6-11.0 [facility] Comment on above: Performed By: #### L 501.2300, L500.2500, L100.0100 ####[facility] [address] [place], [address] Chloride [Moles/Vol] 99 mmol/L Normal 98-108 [facility] Comment on above: Performed By: #### L 501.2300, L500.2500, L100.0100 ####[facility] [address] [place], [address] CO2 [Moles/Vol] 26.0 mmol/L Normal 21.0-32.0 [facility] Comment on above: Performed By: #### L 501.2300, L500.2500, L100.0100 ####[facility] [address] [place], [address] Creatinine [Mass/Vol] 0.89 mg/dL Normal 0.70-1.20 [facility] Comment on above: Performed By: #### L 501.2300, L500.2500, L100.0100 ####[facility] [address] [place], [address] ECRCL 79.44 ml/min Normal 50-250 [facility] Comment on above: Performed By: #### L 501.2300, L500.2500, L100.0100 ####[facility] [address] [place], [address] GAP 9 Normal 5-15 [facility] Comment on above: Performed By: #### L 501.2300, L500.2500, L100.0100 ####[facility] [address] [place], [address] GFR/1.73 sq M.predicted among non-blacks MDRD (S/P/Bld) [Vol rate/Area] 93 mL/min/{1.73_m2} Normal >60 [facility] Comment on above: Result Comment: mL/m in/1.73m2 CKD-EPI Creatinine Equation (2020) Performed By: #### L 501.2300, L500.2500, L100.0100 ####[facility] [address] [place], [address] Glucose [Mass/Vol] 117 mg/dL High 70-99 [facility] Comment on above: Performed By: #### L 501.2300, L500.2500, L100.0100 ####[facility] [address] [place], [address] Potassium [Moles/Vol] 4.3 mmol/L Normal 3.3-5.1 [facility] Comment on above: Performed By: #### L 501.2300, L500.2500, L100.0100 ####[facility] [address] [place], [address] Sodium [Moles/Vol] 134 mmol/L Normal 133-145 [facility] Comment on above: Performed By: #### L 501.2300, L500.2500, L100.0100 ####[facility] [address] [place], [address] Urea nitrogen [Mass/Vol] 12 mg/dL Normal 4-19 [facility] Comment on above: Performed By: #### L 501.2300, L500.2500, L100.0100 ####[facility] [address] [place], [address] Bedside Glucoseon --2024 FINGERSTICK GLU 198 mg/dL High 74-106 [facility] Comment on above: Result Comment: JEFRY GEMENT OF PATIENT CARE PER NURSING PROTOCOL Performed By: #### L 501.080 ####[facility] [address] [place], [address] FINGERSTICK GLU 198 mg/dL High 74-106 [facility] Comment on above: Result Comment: JEFRY GEMENT OF PATIENT CARE PER NURSING PROTOCOL Performed By: #### L 501.080 ####[facility] [address] [place], [address] CBC W/Diff, Automatedon 07-0 Absolute Lymph 0.68 X10 3/uL Low 0.83-4.51 [facility] Comment on above: Performed By: #### L 501.2300, L500.2500, L100.0100 ####[facility] [address] [place], [address] Absolute Neut 6.7 X10 3/uL Normal 2.0-7.7 [facility] Comment on above: Performed By: #### L 501.2300, L500.2500, L100.0100 ####[facility] [facility] [address] [place], [address] Basophils/100 WBC (Bld) 0.0 % Normal 0-1 [facility] Comment on above: Performed By: #### L 501.2300, L500.2500, L100.0100 ####[facility] [address] [place], [address] Eosinophils/100 WBC (Bld) 0.1 % Normal 0-5 [facility] Comment on above: Performed By: #### L 501.2300, L500.2500, L100.0100 ####[facility] [address] [place], [address] Erythrocyte distribution width (RBC) [Ratio] 17.6 % High 11.6-14.6 [facility] Comment on above: Performed By: #### L 501.2300, L500.2500, L100.0100 ####[facility] [address] [place], [address] Hematocrit (Bld) [Volume fraction] 24.0 % Low 40-54 [facility] Comment on above: Performed By: #### L 501.2300, L500.2500, L100.0100 ####[facility] [address] [place], [address] Hemoglobin (Bld) [Mass/Vol] 7.2 g/dL Low 13.0-16.5 [facility] Comment on above: Performed By: #### L 501.2300, L500.2500, L100.0100 ####[facility] [address] [place], [address] IG% 0.800 Normal 0.0-0.9 [facility] Comment on above: Result Comment: IG% - Immature Granulocytes (promyelocytes, myelocytes andmetamyelocytes) > 1% indicates that a LEFT SHIFT is Present. Performed By: #### L 501.2300, L500.2500, L100.0100 ####[facility] [address] [place], [address] Lymphocytes/100 WBC (Bld) 8.7 % Low 19-41 [facility] Comment on above: Performed By: #### L 501.2300, L500.2500, L100.0100 ####[facility] [address] [place], [address] MCH (RBC) [Entitic mass] 27.5 pg Normal 27.0-32.0 [facility] Comment on above: Performed By: #### L 501.2300, L500.2500, L100.0100 ####[facility] [address] [place], [address] MCHC (RBC) [Mass/Vol] 30.0 g/dL Low 32-36 [facility] Comment on above: Performed By: #### L 501.2300, L500.2500, L100.0100 ####[facility] [address] [place], [address] MCV (RBC) [Entitic vol] 91.6 fL Normal 80-94 [facility] Comment on above: Performed By: #### L 501.2300, L500.2500, L100.0100 ####[facility] [address] [place], [address] Monocytes/100 WBC (Bld) 5.3 % Normal 0-10 [facility] Comment on above: Performed By: #### L 501.2300, L500.2500, L100.0100 ####[facility] [address] [place], [address] Neutrophils/100 WBC (Bld) 85.1 % High 47-70 [facility] Comment on above: Performed By: #### L 501.2300, L500.2500, L100.0100 ####[facility] [address] [place], [address] Nucleated RBC (Bld) [#/Vol] 0 10*3/uL Normal 0-5 [facility] Comment on above: Performed By: #### L 501.2300, L500.2500, L100.0100 ####[facility] [address] [place], [address] Platelet mean volume (Bld) [Entitic vol] 10.5 fL Normal 6.2-12.0 [facility] Comment on above: Performed By: #### L 501.2300, L500.2500, L100.0100 ####[facility] [address] [place], [address] Platelets (Bld) [#/Vol] 134 10*3/uL Low 150-450 [facility] Comment on above: Performed By: #### L 501.2300, L500.2500, L100.0100 ####[facility] [address] [place], [address] RBC (Bld) [#/Vol] 2.62 10*6/uL Low 4.6-6.2 [facility] Comment on above: Performed By: #### L 501.2300, L500.2500, L100.0100 ####[facility] [address] [place], [address] RDW SD 59.3 fl High 35.1-43.9 [facility] Comment on above: Performed By: #### L 501.2300, L500.2500, L100.0100 ####[facility] [address] [place], [address] WBC (Bld) [#/Vol] 7.9 10*3/uL Normal 4.4-11.0 [facility] Comment on above: Performed By: #### L 501.2300, L500.2500, L100.0100 ####[facility] [address] [place], [address] Lower Ext Art Exam w/o Exerc moon 09-20-2024 Lower Ext Art Exam w/o Exercis Normal [facility] Phosphoruson 09-20-2024 Phosphate [Mass/Vol] 3.2 mg/dL Normal 2.7-4.5 [facility] Comment on above: Performed By: #### L 501.2300, L500.2500, L100.0100 ####[facility] [address] [place], [address] 12 Lead EKGon 09-19-2024 12 Lead EKG Normal [facility] Abdomen/Pelvis W IV Cont ONL Yon 09-19-2024 Abdomen/Pelvis W IV Cont ONLY Normal [facility] Bedside Glucoseon 09-19-2024 FINGERSTICK GLU 97 mg/dL Normal 74-106 [facility] Comment on above: Result Comment: JEFRY TURNER OF PATIENT CARE PER NURSING PROTOCOL Performed By: #### L 501.080 ####[facility] [address] [place], [address] Bilirubin Test strip Ql (U)O rdered By: Иван Aranda on 09-19-2024 Bilirubin Ql (U) Negative Negative [facility] Bilirubin, totalOrdered By: Иван Aranda on 09-19-2024 Bilirubin [Mass/Vol] 0.49 mg/dL 0.00-1.30 [facility] Blood cultureOrdered By: Kavon Aranda on 09-19-2024 Bacteria identified Cx Nom (Bld) No growth in 5 days. [facility] Bacteria identified Cx Nom (Bld) No growth in 5 days. [facility] CBC W/Diff, Automatedon Absolute Lymph 0.96 X10 3/uL Normal 0.83-4.51 [facility] Comment on above: Performed By: #### L 503.6005, L500.4050, L100.0100, L501.2450, L101.9900 ####[facility] [address] [place], [address] Absolute Neut 9.8 X10 3/uL High 2.0-7.7 [facility] Comment on above: Performed By: #### L 503.6005, L500.4050, L100.0100, L501.2450, L101.9900 ####[facility] [address] [place], [address] Basophils/100 WBC (Bld) 0.1 % Normal 0-1 [facility] Comment on above: Performed By: #### L 503.6005, L500.4050, L100.0100, L501.2450, L101.9900 ####[facility] [address] [place], [address] Eosinophils/100 WBC (Bld) 0.2 % Normal 0-5 [facility] Comment on above: Performed By: #### L 503.6005, L500.4050, L100.0100, L501.2450, L101.9900 ####[facility] [address] [place], [address] Erythrocyte distribution width (RBC) [Ratio] 17.5 % High 11.6-14.6 [facility] Comment on above: Performed By: #### L 503.6005, L500.4050, L100.0100, L501.2450, L101.9900 ####[facility] [address] [place], [address] Hematocrit (Bld) [Volume fraction] 27.4 % Low 40-54 [facility] Comment on above: Performed By: #### L 503.6005, L500.4050, L100.0100, L501.2450, L101.9900 ####[facility] [address] [place], [address] Hemoglobin (Bld) [Mass/Vol] 8.2 g/dL Low 13.0-16.5 [facility] Comment on above: Performed By: #### L 503.6005, L500.4050, L100.0100, L501.2450, L101.9900 ####[facility] [address] [place], [address] IG% 1.200 High 0.0-0.9 [facility] Comment on above: Result Comment: IG% - Immature Granulocytes (promyelocytes, myelocytes andmetamyelocytes) > 1% indicates that a LEFT SHIFT is Present. Performed By: #### L 503.6005, L500.4050, L100.0100, L501.2450, L101.9900 ####[facility] [address] [place], [address] Lymphocytes/100 WBC (Bld) 8.3 % Low 19-41 [facility] Comment on above: Performed By: #### L 503.6005, L500.4050, L100.0100, L501.2450, L101.9900 ####[facility] [address] [place], [address] MCH (RBC) [Entitic mass] 27.2 pg Normal 27.0-32.0 [facility] Comment on above: Performed By: #### L 503.6005, L500.4050, L100.0100, L501.2450, L101.9900 ####[facility] [address] [place], [address] MCHC (RBC) [Mass/Vol] 29.9 g/dL Low 32-36 [facility] Comment on above: Performed By: #### L 503.6005, L500.4050, L100.0100, L501.2450, L101.9900 ####[facility] [address] [place], [address] MCV (RBC) [Entitic vol] 91.0 fL Normal 80-94 [facility] Comment on above: Performed By: #### L 503.6005, L500.4050, L100.0100, L501.2450, L101.9900 ####[facility] [address] [place], [address] Monocytes/100 WBC (Bld) 5.3 % Normal 0-10 [facility] Comment on above: Performed By: #### L 503.6005, L500.4050, L100.0100, L501.2450, L101.9900 ####[facility] [address] [place], [address] Neutrophils/100 WBC (Bld) 84.9 % High 47-70 [facility] Comment on above: Performed By: #### L 503.6005, L500.4050, L100.0100, L501.2450, L101.9900 ####[facility] [address] [place], [address] Nucleated RBC (Bld) [#/Vol] 0 10*3/uL Normal 0-5 [facility] Comment on above: Performed By: #### L 503.6005, L500.4050, L100.0100, L501.2450, L101.9900 ####[facility] [address] [place], [address] Platelet mean volume (Bld) [Entitic vol] 10.6 fL Normal 6.2-12.0 [facility] Comment on above: Performed By: #### L 503.6005, L500.4050, L100.0100, L501.2450, L101.9900 ####[facility] [address] [place], [address] Platelets (Bld) [#/Vol] 158 10*3/uL Normal 150-450 [facility] Comment on above: Performed By: #### L 503.6005, L500.4050, L100.0100, L501.2450, L101.9900 ####[facility] [address] [place], [address] RBC (Bld) [#/Vol] 3.01 10*6/uL Low 4.6-6.2 [facility] Comment on above: Performed By: #### L 503.6005, L500.4050, L100.0100, L501.2450, L101.9900 ####[facility] [address] [place], [address] RDW SD 58.8 fl High 35.1-43.9 [facility] Comment on above: Performed By: #### L 503.6005, L500.4050, L100.0100, L501.2450, L101.9900 ####[facility] [address] [place], [address] WBC (Bld) [#/Vol] 11.5 10*3/uL High 4.4-11.0 [facility] Comment on above: Performed By: #### L 503.6005, L500.4050, L100.0100, L501.2450, L101.9900 ####[facility] [address] [place], [address] CRPon 09-19-2024 C-REACTIVE PROT 110.00 mg/L High 0.0-3.0 [facility] Comment on above: Performed By: #### L 501.4021, L501.5200, L501.6710 ####[facility] [address] [place], [address] CTA Chest W/WO Contraston CTA Chest W/WO Contrast Normal [facility] Comprehensive Metabolic Prof ilon 09-19-2024 Albumin [Mass/Vol] 3.0 g/dL Low 3.4-4.8 [facility] Comment on above: Performed By: #### L 503.6005, L500.4050, L100.0100, L501.2450, L101.9900 ####[facility] [address] [place], [address] Albumin/Globulin [Mass ratio] 0.8 {ratio} Low 0.9-2.4 [facility] Comment on above: Performed By: #### L 503.6005, L500.4050, L100.0100, L501.2450, L101.9900 ####[facility] [address] [place], [address] ALK PHOS 112 U/L Normal 40-129 [facility] Comment on above: Performed By: #### L 503.6005, L500.4050, L100.0100, L501.2450, L101.9900 ####[facility] [address] [place], [address] ALT [Catalytic activity/Vol] 50 U/L High <=46 [facility] Comment on above: Performed By: #### L 503.6005, L500.4050, L100.0100, L501.2450, L101.9900 ####[facility] [address] [place], [address] AST [Catalytic activity/Vol] 42 U/L High <=37 [facility] Comment on above: Performed By: #### L 503.6005, L500.4050, L100.0100, L501.2450, L101.9900 ####[facility] [address] [place], [address] Bilirubin [Mass/Vol] 0.49 mg/dL Normal 0.00-1.30 [facility] Comment on above: Performed By: #### L 503.6005, L500.4050, L100.0100, L501.2450, L101.9900 ####[facility] [address] [place], [address] BUN/CRE 14.3 RATIO Normal 10-20 [facility] Comment on above: Performed By: #### L 503.6005, L500.4050, L100.0100, L501.2450, L101.9900 ####[facility] [address] [place], [address] Calcium [Mass/Vol] 10.5 mg/dL Normal 7.6-11.0 [facility] Comment on above: Performed By: #### L 503.6005, L500.4050, L100.0100, L501.2450, L101.9900 ####[facility] [address] [place], [address] Chloride [Moles/Vol] 94 mmol/L Low 98-108 [facility] Comment on above: Performed By: #### L 503.6005, L500.4050, L100.0100, L501.2450, L101.9900 ####[facility] [address] [place], [address] CO2 [Moles/Vol] 24.4 mmol/L Normal 21.0-32.0 [facility] Comment on above: Performed By: #### L 503.6005, L500.4050, L100.0100, L501.2450, L101.9900 ####[facility] [address] [place], [address] Creatinine [Mass/Vol] 0.86 mg/dL Normal 0.70-1.20 [facility] Comment on above: Performed By: #### L 503.6005, L500.4050, L100.0100, L501.2450, L101.9900 ####[facility] [address] [place], [address] ECRCL 82.21 ml/min Normal 50-250 [facility] Comment on above: Performed By: #### L 503.6005, L500.4050, L100.0100, L501.2450, L101.9900 ####[facility] [address] [place], [address] GAP 11 Normal 5-15 [facility] Comment on above: Performed By: #### L 503.6005, L500.4050, L100.0100, L501.2450, L101.9900 ####[facility] [address] [place], [address] GFR/1.73 sq M.predicted among non-blacks MDRD (S/P/Bld) [Vol rate/Area] 94 mL/min/{1.73_m2} Normal >60 [facility] Comment on above: Result Comment: mL/m in/1.73m2 CKD-EPI Creatinine Equation (2020) Performed By: #### L 503.6005, L500.4050, L100.0100, L501.2450, L101.9900 ####[facility] [address] [place], [address] Globulin (S) [Mass/Vol] 3.5 g/dL Normal 2.2-4.2 [facility] Comment on above: Performed By: #### L 503.6005, L500.4050, L100.0100, L501.2450, L101.9900 ####[facility] [address] [place], [address] Glucose [Mass/Vol] 124 mg/dL High 70-99 [facility] Comment on above: Performed By: #### L 503.6005, L500.4050, L100.0100, L501.2450, L101.9900 ####[facility] [address] [place], [address] Potassium [Moles/Vol] 4.9 mmol/L Normal 3.3-5.1 [facility] Comment on above: Performed By: #### L 503.6005, L500.4050, L100.0100, L501.2450, L101.9900 ####[facility] [address] [place], [address] Sodium [Moles/Vol] 129 mmol/L Low 133-145 [facility] Comment on above: Performed By: #### L 503.6005, L500.4050, L100.0100, L501.2450, L101.9900 ####[facility] [address] [place], [address] T PROT 6.5 g/dL Normal 5.9-8.4 [facility] Comment on above: Performed By: #### L 503.6005, L500.4050, L100.0100, L501.2450, L101.9900 ####[facility] [address] [place], [address] Urea nitrogen [Mass/Vol] 12 mg/dL Normal 4-19 [facility] Comment on above: Performed By: #### L 503.6005, L500.4050, L100.0100, L501.2450, L101.9900 ####[facility] [address] [place], [address] Emergency Department Summary on 09-19-2024 Emergency Department Summary Normal [facility] Erythrocyte Sed Rateon 09-19 SED RATE 53 mm/hr High 0-20 [facility] Comment on above: Performed By: #### L 503.6005, L500.4050, L100.0100, L501.2450, L101.9900 ####[facility] [address] [place], [address] Erythrocyte sedimentation ra teOrdered By: Иван Aranda on 07-08-2025 ESR (Bld) [Velocity] 53 mm/h High 0-20 [facility] Foot min 3 Viewson 5 Foot min 3 Views Normal [facility] H AND P Exam - Hospitaliston 09-19-2024 H&P Exam - Hospitalist Normal [facility] HH, Hemoglobin AND Hematocri ton 09-19-2024 Hematocrit (Bld) [Volume fraction] 26.7 % Low 40-54 [facility] Comment on above: Performed By: #### L 100.0600 ####[facility] [address] [place], [address] Hemoglobin (Bld) [Mass/Vol] 8.1 g/dL Low 13.0-16.5 [facility] Comment on above: Performed By: #### L 100.0600 ####[facility] [address] [place], [address] Ketones Test strip Ql (U)Ord ered By: Иван Aranda on 09-19-2024 Ketones Ql (U) Negative Negative [facility] L499.0042on 09-19-2024 Trop T High Sen Normal <=22 [facility] Comment on above: Result Comment: PORFIRIO EASON RN Performed By: #### L 499.0042 ####[facility] [address] [place], [address] Trop T High Sen 42 ng/L High <=22 [facility] Comment on above: Performed By: #### L 499.0042 ####[facility] [address] [place], [address] L499.0043on 09-19-2024 Trop T High Sen 51 ng/L High <=22 [facility] Comment on above: Performed By: #### L 499.0043 ####[facility] [address] [place], [address] L501.4021on 09-19-2024 Trop T High Sen 49 ng/L High <=22 [facility] Comment on above: Performed By: #### L 501.4021, L501.5200, L501.6710 ####[facility] [address] [place], [address] Lactic Acidon 09-19-2024 Lactate [Moles/Vol] 1.7 mmol/L Normal 0.0-2.0 [facility] Comment on above: Performed By: #### L 503.6005 ####[facility] [address] [place], [address] Lactate [Moles/Vol] 2.2 mmol/L Invalid Interpretation Code 0.0-2.0 [facility] Comment on above: Order Comment: Y Result Comment: Crit ical Result(s) Called PSWARTZLATRICEUBER at: 1640 by:LIZBETH??Results read back by same. Performed By: #### L 503.6005, L500.4050, L100.0100, L501.2450, L101.9900 ####[facility] [address] [place], [address] Lipaseon 09-19-2024 Lipase [Catalytic activity/Vol] 63 U/L Normal 13-75 [facility] Comment on above: Result Comment: Plea se note:LIPASE revised reference range effective 22.New Lipase methodology. Expected to produce lower valuesthan the previous assay method.NEW Reference Range: 13 - 75 U/L Performed By: #### L 503.6005, L500.4050, L100.0100, L501.2450, L101.9900 ####[facility] [address] [place], [address] Magnesiumon 09-19-2024 Magnesium [Mass/Vol] 1.6 mg/dL Normal 1.5-2.2 [facility] Comment on above: Performed By: #### L 501.5200 ####[facility] [address] [place], [address] Magnesium [Mass/Vol] 1.5 mg/dL Normal 1.5-2.2 [facility] Comment on above: Performed By: #### L 501.4021, L501.5200, L501.6710 ####[facility] [address] [place], [place], [id number] Magnesium measurement (mass/ volume)Ordered By: Jose Zhang on 09-19-2024 Magnesium (Unsp spec) [Mass/Vol] 1.6 mg/dL 1.5-2.2 [facility] Mucus LM Ql (Urine sed)Order ed By: Иван Aranda on 09-19-2024 Mucus Ql (Urine sed) 0 SEEN /hpf [facility] Nitrite Test strip Ql (U)Ord ered By: Иван Aranda on 09-19-2024 Nitrite Ql (U) Negative Negative [facility] Protein Test strip Ql (U)Ord ered By: Иван Aranda on 09-19-2024 Protein Ql (U) 15 mg/dl High Negative [facility] Serum globulin measurementOr dered By: Иван Aranda on 09-19-2024 Globulin (S) [Mass/Vol] 3.5 g/dL 2.2-4.2 [facility] Serum or plasma C reactive p rotein measurement (mass/volume)Ordered By: Иван Aranda on 09-19-2024 CRP [Mass/Vol] 110.00 mg/L High 0.0-3.0 [facility] Serum or plasma albumin alfreda urement (mass/volume)Ordered By: Иван Rice on 09-19-2024 Albumin [Mass/Vol] 3.0 g/dL Low 3.4-4.8 [facility] Serum or plasma albumin/glob ulin mass ratioOrdered By: Иван Aranda on 09-19-2024 Albumin/Globulin [Mass ratio] 0.8 {ratio} Low 0.9-2.4 [facility] Serum or plasma alkaline debby sphatase measurementOrdered By: Иван Aranda on 09-19-2024 ALP [Catalytic activity/Vol] 112 U/L 40-129 [facility] Squamous epithelial cells de tection in urine sediment by light microscopyOrdered By: Иван Aranda on 09-19-2024 Epithelial cells.squamous LM Ql (Urine sed) 0-5 SEEN /hpf 0-5 [facility] Total proteinOrdered By: Kavon Aranda on 09-19-2024 Protein [Mass/Vol] 6.5 g/dL 5.9-8.4 [facility] Troponin T.cardiac [Mass/vol ume] in Serum or Plasma by High sensitivity methodOrdered By: Jose Zhang on 09-19-2024 Troponin T.cardiac High sensitivity method [Mass/Vol] 51 ng/L High <22 [facility] Troponin T.cardiac [Mass/vol ume] in Serum or Plasma by High sensitivity methodOrdered By: Иван Aranda on 09-19-2024 Troponin T.cardiac High sensitivity method [Mass/Vol] 42 ng/L High <22 [facility] Troponin T.cardiac High sensitivity method [Mass/Vol] 49 ng/L High <22 [facility] Urinalysis, Completeon 09-19 EPI,SQUAMOUS 0-5 SEEN Normal 0-5 [facility] Comment on above: Order Comment: CLEAN CATCH Performed By: #### L 400.0001 ####[facility] [address] [facility] [id number] RBC 0-5 SEEN Normal 0-5 [facility] Comment on above: Order Comment: CLEAN CATCH Performed By: #### L 400.0001 ####[facility] [address] [facility] [address] WBC 0-5 SEEN Normal 0-5 [facility] Comment on above: Order Comment: CLEAN CATCH Performed By: #### L 400.0001 ####[facility] [address] [place], [address] BACTERIA 0 SEEN Normal None Seen [facility] Comment on above: Order Comment: CLEAN CATCH Performed By: #### L 400.0001 ####[facility] [id number] [place], [place], [id number] Mucus Ql (Urine sed) 0 SEEN Normal [facility] Comment on above: Order Comment: CLEAN CATCH Performed By: #### L [id number] ####[facility] [id number] [place], [place], [id number] Urine clarityOrdered By: Kavon Aranda on 09-19-2024 Clarity (U) Clear Clear [facility] Urine color determinationOrd ered By: Иван Aranda on 09-19-2024 Color (U) Straw Yellow [facility] Urine glucose detectionOrder ed By: Иван Aranda on 09-19-2024 Glucose Ql (U) 250 mg/dl High Normal [facility] Urine leukocyte esterase det ection by dipstickOrdered By: Иван Aranda on 09-19-2024 Leukocyte esterase Test strip Ql (U) Negative Negative [facility] Urine pHOrdered By: Иван Velazquez on 09-19-2024 pH (U) 7.0 [pH] 5.0 - 8.0 [facility] Urine sediment bacteria coun t by microscopy (number/high power field)Ordered By: Иван Aranda on 09-19-2024 Bacteria LM.HPF (Urine sed) [#/Area] 0 /[HPF] None Seen [facility] Urine specific gravity measu rementOrdered By: Иван Aranda on 09-19-2024 Specific gravity (U) [Rel density] 1.005 1.002-1.03 0 [facility] Urine urobilinogen measureme ntOrdered By: Иван Aranda on 09-19-2024 Urobilinogen Ql (U) Normal mg/dl Normal [facility] White blood cell countOrdere d By: Иван Aranda on 09-19-2024 White blood cell count 0-5 SEEN /hpf 0-5 [facility] Culture, Blood (WB)on 2024 CUB No growth in 5 days. Normal [facility] Comment on above: Performed By: #### M 200.1000 ####[facility] [address] [place], [address] Culture, Blood (WB)on 2024 CUB No growth in 5 days. Normal [facility] Comment on above: Performed By: #### M 200.1000 ####[facility] [address] [place], [address] Anion gap in Serum or Plasma Ordered By: Jose Zhang on 09-11-2024 Anion gap [Moles/Vol] 10 mmol/L - [facility] BUN/creatinine ratioOrdered By: Jose Zhang on 09-11-2024 Urea nitrogen/Creatinine [Mass ratio] 19.0 mg/mg - [facility] Basic Metabolic Profile (BMP )on 09-11-2024 BUN/CRE 19.0 RATIO Normal - [facility] Comment on above: Performed By: #### L 500.2500 ####[facility] [address] [place], [address] Calcium [Mass/Vol] 8.8 mg/dL Normal 7.6-11.0 [facility] Comment on above: Performed By: #### L 500.2500 ####[facility] [address] [place], [address] Chloride [Moles/Vol] 103 mmol/L Normal 98-108 [facility] Comment on above: Performed By: #### L 500.2500 ####[facility] [address] [place], [address] CO2 [Moles/Vol] 30.1 mmol/L Normal 21.0-32.0 [facility] Comment on above: Performed By: #### L 500.2500 ####[facility] [address] [place], [address] Creatinine [Mass/Vol] 0.78 mg/dL Normal 0.70-1.20 [facility] Comment on above: Performed By: #### L 500.2500 ####[facility] [address] [place], [address] ECRCL 88.38 ml/min Normal 50-250 [facility] Comment on above: Performed By: #### L 500.2500 ####[facility] [address] [place], [address] GAP 10 Normal 5-15 [facility] Comment on above: Performed By: #### L 500.2500 ####[facility] [address] [place], [address] GFR/1.73 sq M.predicted among non-blacks MDRD (S/P/Bld) [Vol rate/Area] 97 mL/min/{1.73_m2} Normal >60 [facility] Comment on above: Result Comment: mL/m in/1.73m2 CKD-EPI Creatinine Equation (2020) Performed By: #### L 500.2500 ####[facility] [address] [place], [address] Glucose [Mass/Vol] 118 mg/dL High 70-99 [facility] Comment on above: Performed By: #### L 500.2500 ####[facility] [address] [place], [address] Potassium [Moles/Vol] 3.9 mmol/L Normal 3.3-5.1 [facility] Comment on above: Performed By: #### L 500.2500 ####[facility] [address] [place], [address] Sodium [Moles/Vol] 143 mmol/L Normal 133-145 [facility] Comment on above: Performed By: #### L 500.2500 ####[facility] [address] [place], [address] Urea nitrogen [Mass/Vol] 15 mg/dL Normal 4-19 [facility] Comment on above: Performed By: #### L 500.2500 ####[facility] [address] [place], [address] Bedside Glucoseon 09-11-2024 FINGERSTICK GLU 289 mg/dL High 74-106 [facility] Comment on above: Result Comment: JEFRY GEMENT OF PATIENT CARE PER NURSING PROTOCOL Performed By: #### L 501.080 ####[facility] [address] [place], [address] FINGERSTICK GLU 149 mg/dL High 74-106 [facility] Comment on above: Result Comment: JEFRY GEMENT OF PATIENT CARE PER NURSING PROTOCOL Performed By: #### L 501.080 ####[facility] [address] [place], [address] Carbon dioxide, total [Moles /volume] in Central venous bloodOrdered By: Jose Zhang on 09-11-2024 CO2 [Moles/Vol] 30.1 mmol/L 21.0-32.0 [facility] Chloride assayOrdered By: Saad Zhang on 09-11-2024 Chloride [Moles/Vol] 103 mmol/L 98-108 [facility] Discharge Instructionon 08-[address] [facility] Glomerular filtration rate ( GFR) estimation/1.73 sq m using serum, plasma, or whole bOrdered By: Jose Zhang on 09-11-2024 GFR/1.73 sq M.predicted among non-blacks MDRD (S/P/Bld) [Vol rate/Area] 97 mL/min/{1.73_m2} >60 [facility] Glucose measurement at bedsi deOrdered By: Jose Zhang on 09-11-2024 Glucose [Mass/Vol] 289 mg/dL High 74-106 [facility] Potassium measurement (mass/ volume)Ordered By: Jsoe Zhang on 09-11-2024 Potassium (Unsp spec) [Mass/Vol] 3.9 mmol/L 3.3-5.1 [facility] Serum creatinine measurement (mass/volume)Ordered By: Jose Zhang on 09-11-2024 Creatinine [Mass/Vol] 0.78 mg/dL 0.70-1.20 [facility] Serum glucose measurement (m ass/volume)Ordered By: Jose Zhang on 09-11-2024 Glucose [Mass/Vol] 118 mg/dL High 70-99 [facility] Serum or plasma calcium alfreda urement (mass/volume)Ordered By: Jose Zhang on 09-11-2024 Calcium [Mass/Vol] 8.8 mg/dL 7.6-11.0 [facility] Serum or plasma urea nitroge n measurement (mass/volume)Ordered By: Jose Zhang on 09-11-2024 Urea nitrogen [Mass/Vol] 15 mg/dL 4-19 [facility] Sodium levelOrdered By: Taco Zhang on 09-11-2024 Sodium [Moles/Vol] 143 mmol/L 133-145 [facility] Absolute lymphocyte countOrd ered By: Jose Zhang on 09-10-2024 Lymphocytes Auto (Unsp spec) [#/Vol] 1.15 10*3/uL 0.83-4.51 [facility] Automated lymphocyte count a s percentage of total leukocytesOrdered By: Jose Zhang on 09-10-2024 Lymphocytes/100 WBC Auto (Unsp spec) 6.6 % Low 19-41 [facility] Basic Metabolic Profile (BMP )on 09-10-2024 BUN/CRE 13.8 RATIO Normal 10-20 [facility] Comment on above: Performed By: #### L 100.0100, L500.2500 ####[facility] [address] [place], [address] Calcium [Mass/Vol] 8.7 mg/dL Normal 7.6-11.0 [facility] Comment on above: Performed By: #### L 100.0100, L500.2500 ####[facility] [address] [place], [address] Chloride [Moles/Vol] 100 mmol/L Normal 98-108 [facility] Comment on above: Performed By: #### L 100.0100, L500.2500 ####[facility] [address] [place], [address] CO2 [Moles/Vol] 31.1 mmol/L Normal 21.0-32.0 [facility] Comment on above: Performed By: #### L 100.0100, L500.2500 ####[facility] [address] [place], [address] Creatinine [Mass/Vol] 0.91 mg/dL Normal 0.70-1.20 [facility] Comment on above: Performed By: #### L 100.0100, L500.2500 ####[facility] [address] [place], [address] ECRCL 77.69 ml/min Normal 50-250 [facility] Comment on above: Performed By: #### L 100.0100, L500.2500 ####[facility] [address] [place], [address] GAP 12 Normal 5-15 [facility] Comment on above: Performed By: #### L 100.0100, L500.2500 ####[facility] [address] [place], [address] GFR/1.73 sq M.predicted among non-blacks MDRD (S/P/Bld) [Vol rate/Area] 92 mL/min/{1.73_m2} Normal >60 [facility] Comment on above: Result Comment: mL/m in/1.73m2 CKD-EPI Creatinine Equation (2020) Performed By: #### L 100.0100, L500.2500 ####[facility] [address] [place], [address] Glucose [Mass/Vol] 115 mg/dL High 70-99 [facility] Comment on above: Performed By: #### L 100.0100, L500.2500 ####[facility] [address] [place], [address] Potassium [Moles/Vol] 2.9 mmol/L Low 3.3-5.1 [facility] Comment on above: Performed By: #### L 100.0100, L500.2500 ####[facility] [address] [place], [address] Sodium [Moles/Vol] 143 mmol/L Normal 133-145 [facility] Comment on above: Performed By: #### L 100.0100, L500.2500 ####[facility] [address] [place], [address] Urea nitrogen [Mass/Vol] 13 mg/dL Normal 4-19 [facility] Comment on above: Performed By: #### L 100.0100, L500.2500 ####[facility] [address] [place], [address] Basophil percentageOrdered B y: Jose Vicente on 09-10-2024 Basophils/100 WBC (Bld) 0.1 % 0-1 [facility] Bedside Glucoseon 09-10-2024 FINGERSTICK GLU 160 mg/dL High 74-106 [facility] Comment on above: Result Comment: JEFRY GEMENT OF PATIENT CARE PER NURSING PROTOCOL Performed By: #### L 501.080 ####[facility] [address] [place], [address] FINGERSTICK GLU 243 mg/dL High 74-106 [facility] Comment on above: Result Comment: JEFRY GEMENT OF PATIENT CARE PER NURSING PROTOCOL Performed By: #### L 501.080 ####[facility] [address] [place], [address] FINGERSTICK GLU 142 mg/dL High 74-106 [facility] Comment on above: Result Comment: JEFRY GEMENT OF PATIENT CARE PER NURSING PROTOCOL Performed By: #### L 501.080 ####[facility] [address] [place], [address] FINGERSTICK GLU 124 mg/dL High 74-106 [facility] Comment on above: Result Comment: JEFRY TURNER OF PATIENT CARE PER NURSING PROTOCOL Performed By: #### L 501.080 ####[facility] [address] [place], [address] CBC W/Diff, Automatedon 08-14 Absolute Lymph 1.15 X10 3/uL Normal 0.83-4.51 [facility] Comment on above: Performed By: #### L 100.0100, L500.2500 ####[facility] [address] [place], [address] Absolute Neut 15.6 X10 3/uL High 2.0-7.7 [facility] Comment on above: Performed By: #### L 100.0100, L500.2500 ####[facility] [address] [place], [address] Basophils/100 WBC (Bld) 0.1 % Normal 0-1 [facility] Comment on above: Performed By: #### L 100.0100, L500.2500 ####[facility] [address] [place], [address] Eosinophils/100 WBC (Bld) 0.0 % Normal 0-5 [facility] Comment on above: Performed By: #### L 100.0100, L500.2500 ####[facility] [address] [place], [address] Erythrocyte distribution width (RBC) [Ratio] 17.2 % High 11.6-14.6 [facility] Comment on above: Performed By: #### L 100.0100, L500.2500 ####[facility] [address] [place], [address] Hematocrit (Bld) [Volume fraction] 30.7 % Low 40-54 [facility] Comment on above: Performed By: #### L 100.0100, L500.2500 ####[facility] [address] [place], [address] Hemoglobin (Bld) [Mass/Vol] 9.4 g/dL Low 13.0-16.5 [facility] Comment on above: Performed By: #### L 100.0100, L500.2500 ####[facility] [address] [place], [address] IG% 1.400 High 0.0-0.9 [facility] Comment on above: Result Comment: IG% - Immature Granulocytes (promyelocytes, myelocytes andmetamyelocytes) > 1% indicates that a LEFT SHIFT is Present. Performed By: #### L 100.0100, L500.2500 ####[facility] [address] [place], [address] Lymphocytes/100 WBC (Bld) 6.6 % Low 19-41 [facility] Comment on above: Performed By: #### L 100.0100, L500.2500 ####[facility] [address] [place], [address] MCH (RBC) [Entitic mass] 27.6 pg Normal 27.0-32.0 [facility] Comment on above: Performed By: #### L 100.0100, L500.2500 ####[facility] [address] [place], [address] MCHC (RBC) [Mass/Vol] 30.6 g/dL Low 32-36 [facility] Comment on above: Performed By: #### L 100.0100, L500.2500 ####[facility] [address] [place], [address] MCV (RBC) [Entitic vol] 90.0 fL Normal 80-94 [facility] Comment on above: Performed By: #### L 100.0100, L500.2500 ####[facility] [address] [place], [address] Monocytes/100 WBC (Bld) 2.8 % Normal 0-10 [facility] Comment on above: Performed By: #### L 100.0100, L500.2500 ####[facility] [address] [place], [address] Neutrophils/100 WBC (Bld) 89.1 % High 47-70 [facility] Comment on above: Performed By: #### L 100.0100, L500.2500 ####[facility] [address] [place], [address] Nucleated RBC (Bld) [#/Vol] 0 10*3/uL Normal 0-5 [facility] Comment on above: Performed By: #### L 100.0100, L500.2500 ####[facility] [address] [place], [address] Platelet mean volume (Bld) [Entitic vol] 9.3 fL Normal 6.2-12.0 [facility] Comment on above: Performed By: #### L 100.0100, L500.2500 ####[facility] [address] [place], [address] Platelets (Bld) [#/Vol] 269 10*3/uL Normal 150-450 [facility] Comment on above: Performed By: #### L 100.0100, L500.2500 ####[facility] [address] [place], [address] RBC (Bld) [#/Vol] 3.41 10*6/uL Low 4.6-6.2 [facility] Comment on above: Performed By: #### L 100.0100, L500.2500 ####[facility] [address] [place], [address] RDW SD 55.9 fl High 35.1-43.9 [facility] Comment on above: Performed By: #### L 100.0100, L500.2500 ####[facility] [address] [place], [place], [address] WBC (Bld) [#/Vol] 17.5 10*3/uL High 4.4-11.0 [facility] Comment on above: Performed By: #### L 100.0100, L500.2500 ####[facility] [address] [place], [address] Eosinophil percentageOrdered By: Jose Zhang on 09-10-2024 Eosinophils/100 WBC (Bld) 0.0 % 0-5 [facility] Erythrocyte distribution wid th ratioOrdered By: Jose Zhang on 09-10-2024 Erythrocyte distribution width (RBC) [Ratio] 17.2 % High 11.6-14.6 [facility] Erythrocyte distribution wid th standard deviationOrdered By: Jose Zhang on 09-10-2024 Erythrocyte distribution width (RBC) [Ratio] 55.9 fl High 35.1-43.9 [facility] Hematocrit Auto (Bld) [Volum e fraction]Ordered By: Jose Zhang on 09-10-2024 Hematocrit (Bld) [Volume fraction] 30.7 % Low 40-54 [facility] Hemoglobin measurementOrdere d By: Jose Zhang on 09-10-2024 Hemoglobin (Bld) [Mass/Vol] 9.4 g/dL Low 13.0-16.5 [facility] Immature granulocytes/100 WB C Auto (Bld)Ordered By: Jose Zhang on 09-10-2024 Immature granulocytes/100 WBC (Bld) 1.400 % High 0.0-0.9 [facility] MCV (mean corpuscular volume ) determinationOrdered By: Jose Zhang on 09-10-2024 MCV (RBC) [Entitic vol] 90.0 fL 80-94 [facility] Mean corpuscular hemoglobin (MCH) determinationOrdered By: Jose Zhang on 09-10-2024 MCH (RBC) [Entitic mass] 27.6 pg 27.0-32.0 [facility] Monocyte percentageOrdered B y: Joseelmira Zhang on 09-10-2024 Monocytes/100 WBC (Bld) 2.8 % 0-10 [facility] Neutrophil percentageOrdered By: Jose Zhang on 09-10-2024 Neutrophils/100 WBC (Bld) 89.1 % High 47-70 [facility] Platelet countOrdered By: Saad Zhang on 09-10-2024 Platelets (Bld) [#/Vol] 269 10*3/uL 150-450 [facility] RBC Auto (Bld) [#/Vol]Ordere d By: Jose Zhang on 09-10-2024 RBC (Bld) [#/Vol] 3.41 10*6/uL Low 4.6-6.2 [facility] White blood cell (WBC) count Ordered By: Jose Zhang on 09-10-2024 WBC (Bld) [#/Vol] 17.5 10*3/uL High 4.4-11.0 [facility] Basic Metabolic Profile (BMP )on 09-09-2024 BUN/CRE 13.8 RATIO Normal 10-20 [facility] Comment on above: Performed By: #### L 500.2500 ####[facility] [address] [place], [address] Calcium [Mass/Vol] 8.3 mg/dL Normal 7.6-11.0 [facility] Comment on above: Performed By: #### L 500.2500 ####[facility] [address] [place], [address] Chloride [Moles/Vol] 95 mmol/L Low 98-108 [facility] Comment on above: Performed By: #### L 500.2500 ####[facility] [address] [place], [address] CO2 [Moles/Vol] 29.5 mmol/L Normal 21.0-32.0 [facility] Comment on above: Performed By: #### L 500.2500 ####[facility] [address] [place], [address] Creatinine [Mass/Vol] 0.93 mg/dL Normal 0.70-1.20 [facility] Comment on above: Performed By: #### L 500.2500 ####[facility] [address] [place], [address] ECRCL 76.02 ml/min Normal 50-250 [facility] Comment on above: Performed By: #### L 500.2500 ####[facility] [address] [place], [address] GAP 14 Normal 5-15 [facility] Comment on above: Performed By: #### L 500.2500 ####[facility] [address] [place], [address] GFR/1.73 sq M.predicted among non-blacks MDRD (S/P/Bld) [Vol rate/Area] 90 mL/min/{1.73_m2} Normal >60 [facility] Comment on above: Result Comment: mL/m in/1.73m2 CKD-EPI Creatinine Equation (2020) Performed By: #### L 500.2500 ####[facility] [address] [place], [address] Glucose [Mass/Vol] 303 mg/dL High 70-99 [facility] Comment on above: Performed By: #### L 500.2500 ####[facility] [address] [place], [address] Potassium [Moles/Vol] 2.5 mmol/L Invalid Interpretation Code 3.3-5.1 [facility] Comment on above: Result Comment: Crit ical Result(s) Called at 1133: by: SONJA DHALIWAL. ??Results read back by same. Performed By: #### L 500.2500 ####[facility] [address] [place], [address] Sodium [Moles/Vol] 139 mmol/L Normal 133-145 [facility] Comment on above: Performed By: #### L 500.2500 ####[facility] [address] [place], [address] Urea nitrogen [Mass/Vol] 13 mg/dL Normal 4-19 [facility] Comment on above: Performed By: #### L 500.2500 ####[facility] [address] [place], [address] Bedside Glucoseon 09-09-2024 FINGERSTICK GLU 134 mg/dL High 74-106 [facility] Comment on above: Result Comment: JEFRY GEMENT OF PATIENT CARE PER NURSING PROTOCOL Performed By: #### L 501.080 ####[facility] [address] [place], [address] FINGERSTICK GLU 207 mg/dL High 74-106 [facility] Comment on above: Result Comment: JEFRY GEMENT OF PATIENT CARE PER NURSING PROTOCOL Performed By: #### L 501.080 ####[facility] [address] [place], [address] FINGERSTICK GLU 235 mg/dL High 74-106 [facility] Comment on above: Result Comment: JEFRY GEMENT OF PATIENT CARE PER NURSING PROTOCOL Performed By: #### L 501.080 ####[facility] [address] [place], [address] FINGERSTICK GLU 109 mg/dL High 74-106 [facility] Comment on above: Result Comment: JEFRY GEMENT OF PATIENT CARE PER NURSING PROTOCOL Performed By: #### L 501.080 ####[facility] [address] [place], [address] Magnesiumon 09-09-2024 Magnesium [Mass/Vol] 1.8 mg/dL Normal 1.5-2.2 [facility] Comment on above: Performed By: #### L 501.5200, L501.2300 ####[facility] [address] [place], [address] Magnesium measurement (mass/ volume)Ordered By: Jose Zhang on 09-09-2024 Magnesium (Unsp spec) [Mass/Vol] 1.8 mg/dL 1.5-2.2 [facility] Phosphoruson 09-09-2024 Phosphate [Mass/Vol] 2.9 mg/dL Normal 2.7-4.5 [facility] Comment on above: Performed By: #### L 501.5200, L501.2300 ####[facility] [address] [place], [address] Bedside Glucoseon 09-08-2024 FINGERSTICK GLU 116 mg/dL High [address] [place] [address] Comment on above: Result Comment: JEFRY GEMENT OF PATIENT CARE PER NURSING PROTOCOL Performed By: #### L 501.080 ####[facility] [address] [place], [address] FINGERSTICK GLU 209 mg/dL High [address] [place] [address] Comment on above: Result Comment: JEFRY GEMENT OF PATIENT CARE PER NURSING PROTOCOL Performed By: #### L 501.080 ####[facility] [address] [place], [address] FINGERSTICK GLU 215 mg/dL High [address] [place] [address] Comment on above: Result Comment: JEFRY GEMENT OF PATIENT CARE PER NURSING PROTOCOL Performed By: #### L 501.080 ####[facility] [address] [place], [address] FINGERSTICK GLU 146 mg/dL High [address] [place] [address] Comment on above: Result Comment: JEFRY GEMENT OF PATIENT CARE PER NURSING PROTOCOL Performed By: #### L 501.080 ####[facility] [address] [place], [address] Blood cultureOrdered By: Jeramy Bazzi on 09-08-2024 Bacteria identified Cx Nom (Bld) No growth in 5 days. [facility] Culture, Blood (WB)on 2024 CUB Normal [facility] Comment on above: Performed By: #### M 200.1000 ####[facility] [address] [place], [address] CUB Normal [facility] Comment on above: Performed By: #### M 200.1000 ####[facility] [address] [place], [address] Activated partial thrombopla stin time (aPTT) in platelet poor plasma by coagulation aOrdered By: Jameel Lakhani on 09-07-2024 aPTT Coag (PPP) [Time] 32.0 s 24.1-36.2 [facility] Basic Metabolic Profile (BMP )on 09-07-2024 BUN/CRE 12.7 RATIO Normal 10-20 [facility] Comment on above: Performed By: #### L 501.2300, L501.5200, L500.2500, L100.0500 ####[facility] [address] [place], [address] Calcium [Mass/Vol] 7.4 mg/dL Low 7.6-11.0 [facility] Comment on above: Performed By: #### L 501.2300, L501.5200, L500.2500, L100.0500 ####[facility] [address] [place], [address] Chloride [Moles/Vol] 99 mmol/L Normal 98-108 [facility] Comment on above: Performed By: #### L 501.2300, L501.5200, L500.2500, L100.0500 ####[facility] [address] [place], [address] CO2 [Moles/Vol] 27.8 mmol/L Normal 21.0-32.0 [facility] Comment on above: Performed By: #### L 501.2300, L501.5200, L500.2500, L100.0500 ####[facility] [address] [place], [address] Creatinine [Mass/Vol] 0.74 mg/dL Normal 0.70-1.20 [facility] Comment on above: Performed By: #### L 501.2300, L501.5200, L500.2500, L100.0500 ####[facility] [address] [place], [address] ECRCL 88.38 ml/min Normal 50-250 [facility] Comment on above: Performed By: #### L 501.2300, L501.5200, L500.2500, L100.0500 ####[facility] [address] [place], [address] GAP 13 Normal 5-15 [facility] Comment on above: Performed By: #### L 501.2300, L501.5200, L500.2500, L100.0500 ####[facility] [address] [place], [address] GFR/1.73 sq M.predicted among non-blacks MDRD (S/P/Bld) [Vol rate/Area] 99 mL/min/{1.73_m2} Normal >60 [facility] Comment on above: Result Comment: mL/m in/1.73m2 CKD-EPI Creatinine Equation (2020) Performed By: #### L 501.2300, L501.5200, L500.2500, L100.0500 ####[facility] [address] [place], [address] Glucose [Mass/Vol] 213 mg/dL High 70-99 [facility] Comment on above: Performed By: #### L 501.2300, L501.5200, L500.2500, L100.0500 ####[facility] [address] [place], [address] Potassium [Moles/Vol] 3.0 mmol/L Low 3.3-5.1 [facility] Comment on above: Performed By: #### L 501.2300, L501.5200, L500.2500, L100.0500 ####[facility] [address] [place], [address] Sodium [Moles/Vol] 140 mmol/L Normal 133-145 [facility] Comment on above: Performed By: #### L 501.2300, L501.5200, L500.2500, L100.0500 ####[facility] [address] [place], [address] Urea nitrogen [Mass/Vol] 9 mg/dL Normal 4-19 [facility] Comment on above: Performed By: #### L 501.2300, L501.5200, L500.2500, L100.0500 ####[facility] [address] [place], [address] Bedside Glucoseon 09-07-2024 FINGERSTICK GLU 278 mg/dL High 74-106 [facility] Comment on above: Result Comment: JEFRY GEMENT OF PATIENT CARE PER NURSING PROTOCOL Performed By: #### L 501.080 ####[facility] [address] [place], [address] FINGERSTICK GLU 234 mg/dL High 74-106 [facility] Comment on above: Result Comment: JEFRY GEMENT OF PATIENT CARE PER NURSING PROTOCOL Performed By: #### L 501.080 ####[facility] [address] [place], [address] Blood cultureOrdered By: Jeramy Bazzi on 09-07-2024 Bacteria identified Cx Nom (Bld) No growth in 5 days. [facility] CBC-Complete Blood Cnt No Di ffon 09-07-2024 Erythrocyte distribution width (RBC) [Ratio] 17.2 % High 11.6-14.6 [facility] Comment on above: Performed By: #### L 501.2300, L501.5200, L500.2500, L100.0500 ####[facility] [address] [place], [address] Hematocrit (Bld) [Volume fraction] 27.3 % Low 40-54 [facility] Comment on above: Performed By: #### L 501.2300, L501.5200, L500.2500, L100.0500 ####[facility] [address] [place], [address] Hemoglobin (Bld) [Mass/Vol] 8.6 g/dL Low 13.0-16.5 [facility] Comment on above: Performed By: #### L 501.2300, L501.5200, L500.2500, L100.0500 ####[facility] [address] [place], [address] MCH (RBC) [Entitic mass] 27.6 pg Normal 27.0-32.0 [facility] Comment on above: Performed By: #### L 501.2300, L501.5200, L500.2500, L100.0500 ####[facility] [address] [place], [address] MCHC (RBC) [Mass/Vol] 31.5 g/dL Low 32-36 [facility] Comment on above: Performed By: #### L 501.2300, L501.5200, L500.2500, L100.0500 ####[facility] [address] [place], [address] MCV (RBC) [Entitic vol] 87.5 fL Normal 80-94 [facility] Comment on above: Performed By: #### L 501.2300, L501.5200, L500.2500, L100.0500 ####[facility] [address] [place], [address] Platelet mean volume (Bld) [Entitic vol] 9.5 fL Normal 6.2-12.0 [facility] Comment on above: Performed By: #### L 501.2300, L501.5200, L500.2500, L100.0500 ####[facility] [address] [place], [address] Platelets (Bld) [#/Vol] 179 10*3/uL Normal 150-450 [facility] Comment on above: Performed By: #### L 501.2300, L501.5200, L500.2500, L100.0500 ####[facility] [address] [place], [address] RBC (Bld) [#/Vol] 3.12 10*6/uL Low 4.6-6.2 [facility] Comment on above: Performed By: #### L 501.2300, L501.5200, L500.2500, L100.0500 ####[facility] [address] [place], [address] RDW SD 55.2 fl High 35.1-43.9 [facility] Comment on above: Performed By: #### L 501.2300, L501.5200, L500.2500, L100.0500 ####[facility] [address] [place], [address] WBC (Bld) [#/Vol] 9.7 10*3/uL Normal 4.4-11.0 [facility] Comment on above: Performed By: #### L 501.2300, L501.5200, L500.2500, L100.0500 ####[facility] [address] [place], [address] Colonoscopy Reporton Colonoscopy Report Normal [facility] Consultation - Infectious Dx on 09-07-2024 Consultation - Infectious Dx Normal [facility] Echocardiogram study reportO rdered By: Brittany Izquierdo on 09-07-2024 Study report [facility] Work Phone: MR/POSTOP.ANEon 09-07-2024 MR/POSTOP.ANE Normal [facility] MR/[id number] 09-07-2024 MR/POSTOPAN2 Normal [facility] Magnesiumon 09-07-2024 Magnesium [Mass/Vol] 2.2 mg/dL Normal 1.5-2.2 [facility] Comment on above: Performed By: #### L 501.2300, L501.5200, L500.2500, L100.0500 ####[facility] [address] [place], [address] Partial Thromboplast Timeon 09-07-2024 aPTT Coag (Bld) [Time] 32.0 s Normal 24.1-36.2 [facility] Comment on above: Performed By: #### L 300.3900, L300.4310 ####[facility] [address] [place], [address] Phosphoruson 09-07-2024 Phosphate [Mass/Vol] 1.6 mg/dL Low 2.7-4.5 [facility] Comment on above: Performed By: #### L 501.2300, L501.5200, L500.2500, L100.0500 ####[facility] [address] [place], [address] Prothrombin Time w/INRon INR Coag (PPP) [Relative time] 1.4 {INR} Normal [facility] Comment on above: Performed By: #### L 300.3900, L300.4310 ####[facility] [address] [place], [address] PT Coag (PPP) [Time] 17.3 s High 11.7-14.9 [facility] Comment on above: Performed By: #### L 300.3900, L300.4310 ####[facility] [address] [place], [address] Prothrombin timeOrdered By: Jameel Lakhani on 09-07-2024 PT Coag (PPP) [Time] 17.3 s High 11.7-14.9 [facility] Surgery Specimen Level Jerrell 09-07-2024 Surgery Specimen Level IV Normal [facility] Comment on above: Performed By: #### P SUIV ####[facility] [address] [place], [address] 12 Lead EKGon 09-06-2024 12 Lead EKG Normal [facility] Basic Metabolic Profile (BMP )on 09-06-2024 BUN/CRE 10.9 RATIO Normal 10-20 [facility] Comment on above: Performed By: #### L 100.0500, L500.2500 ####[facility] [address] [place], [address] Calcium [Mass/Vol] 7.7 mg/dL Normal 7.6-11.0 [facility] Comment on above: Performed By: #### L 100.0500, L500.2500 ####[facility] [address] [place], [address] Chloride [Moles/Vol] 98 mmol/L Normal 98-108 [facility] Comment on above: Performed By: #### L 100.0500, L500.2500 ####[facility] [address] [place], [address] CO2 [Moles/Vol] 26.5 mmol/L Normal 21.0-32.0 [facility] Comment on above: Performed By: #### L 100.0500, L500.2500 ####[facility] [address] [place], [address] Creatinine [Mass/Vol] 0.69 mg/dL Low 0.70-1.20 [facility] Comment on above: Performed By: #### L 100.0500, L500.2500 ####[facility] [address] [place], [address] ECRCL 88.38 ml/min Normal 50-250 [facility] Comment on above: Performed By: #### L 100.0500, L500.2500 ####[facility] [address] [place], [address] GAP 12 Normal 5-15 [facility] Comment on above: Performed By: #### L 100.0500, L500.2500 ####[facility] [address] [place], [address] GFR/1.73 sq M.predicted among non-blacks MDRD (S/P/Bld) [Vol rate/Area] 101 mL/min/{1.73_m2} Normal >60 [facility] Comment on above: Result Comment: mL/m in/1.73m2 CKD-EPI Creatinine Equation (2020) Performed By: #### L 100.0500, L500.2500 ####[facility] [address] [place], [address] Glucose [Mass/Vol] 248 mg/dL High 70-99 [facility] Comment on above: Performed By: #### L 100.0500, L500.2500 ####[facility] [address] [place], [address] Potassium [Moles/Vol] 3.6 mmol/L Normal 3.3-5.1 [facility] Comment on above: Performed By: #### L 100.0500, L500.2500 ####[facility] [address] [place], [address] Sodium [Moles/Vol] 137 mmol/L Normal 133-145 [facility] Comment on above: Performed By: #### L 100.0500, L500.2500 ####[facility] [address] [place], [address] Urea nitrogen [Mass/Vol] 8 mg/dL Normal 4-19 [facility] Comment on above: Performed By: #### L 100.0500, L500.2500 ####[facility] [address] [place], [address] Bedside Glucoseon 09-06-2024 FINGERSTICK GLU 231 mg/dL High 74-106 [facility] Comment on above: Result Comment: JEFRY GEMENT OF PATIENT CARE PER NURSING PROTOCOL Performed By: #### L 501.080 ####[facility] [address] [place], [address] FINGERSTICK GLU 275 mg/dL High 74-106 [facility] Comment on above: Result Comment: JEFRY GEMENT OF PATIENT CARE PER NURSING PROTOCOL Performed By: #### L 501.080 ####[facility] [address] [place], [address] FINGERSTICK GLU 255 mg/dL High 74-106 [facility] Comment on above: Result Comment: JEFRY GEMENT OF PATIENT CARE PER NURSING PROTOCOL Performed By: #### L 501.080 ####[facility] [address] [place], [address] FINGERSTICK GLU 219 mg/dL High 74-106 [facility] Comment on above: Result Comment: JEFRY GEMENT OF PATIENT CARE PER NURSING PROTOCOL Performed By: #### L 501.080 ####[facility] [address] [place], [address] CBC-Complete Blood Cnt No Di ffon 09-06-2024 Erythrocyte distribution width (RBC) [Ratio] 17.2 % High 11.6-14.6 [facility] Comment on above: Performed By: #### L 100.0500, L500.2500 ####[facility] [address] [place], [address] Hematocrit (Bld) [Volume fraction] 24.8 % Low 40-54 [facility] Comment on above: Performed By: #### L 100.0500, L500.2500 ####[facility] [address] [place], [address] Hemoglobin (Bld) [Mass/Vol] 7.8 g/dL Low 13.0-16.5 [facility] Comment on above: Performed By: #### L 100.0500, L500.2500 ####[facility] [address] [place], [address] MCH (RBC) [Entitic mass] 27.7 pg Normal 27.0-32.0 [facility] Comment on above: Performed By: #### L 100.0500, L500.2500 ####[facility] [address] [place], [address] MCHC (RBC) [Mass/Vol] 31.5 g/dL Low 32-36 [facility] Comment on above: Performed By: #### L 100.0500, L500.2500 ####[facility] [address] [place], [address] MCV (RBC) [Entitic vol] 87.9 fL Normal 80-94 [facility] Comment on above: Performed By: #### L 100.0500, L500.2500 ####[facility] [address] [place], [address] Platelet mean volume (Bld) [Entitic vol] 9.8 fL Normal 6.2-12.0 [facility] Comment on above: Performed By: #### L 100.0500, L500.2500 ####[facility] [address] [place], [address] Platelets (Bld) [#/Vol] 179 10*3/uL Normal 150-450 [facility] Comment on above: Performed By: #### L 100.0500, L500.2500 ####[facility] [address] [place], [address] RBC (Bld) [#/Vol] 2.82 10*6/uL Low 4.6-6.2 [facility] Comment on above: Performed By: #### L 100.0500, L500.2500 ####[facility] [address] [place], [address] RDW SD 55.7 fl High 35.1-43.9 [facility] Comment on above: Performed By: #### L 100.0500, L500.2500 ####[facility] [address] [place], [address] WBC (Bld) [#/Vol] 8.3 10*3/uL Normal 4.4-11.0 [facility] Comment on above: Performed By: #### L 100.0500, L500.2500 ####[facility] [address] [place], [address] EGD Reporton 09-06-2024 EGD Report Normal [facility] Echo Completeon 09-06-2024 Echo Complete Normal [facility] Electrocardiogram reportOrde red By: Peter Mohan on 09-06-2024 EKG study [facility] Work Phone: Folates, RBCon 09-06-2024 Fol.,Hemolysate 415.0 ng/mL Normal Not Estab. [facility] Comment on above: Performed By: #### L 503.6550, L503.0106, L100.9950, L500.2500, L3100.1725 ####[facility] [address] [place], [address] Folate, RBC 1836 ng/mL Normal >498 [facility] Comment on above: Result Comment: Perf ormed at: - [facility] [address] [id number] Director: Maico Ascencio PhD, Phone: [phone] Performed By: #### L 503.6550, L503.0106, L100.9950, L500.2500, L3100.1725 ####[facility] [address] [place], [address] Hematocrit (Bld) [Volume fraction] 22.6 % Low 37.5-51.0 [facility] Comment on above: Performed By: #### L 503.6550, L503.0106, L100.9950, L500.2500, L3100.1725 ####[facility] [address] [place], [address] MR/POSTOP.ANEon 09-06-2024 MR/POSTOP.ANE Normal [facility] MR/[id number] 09-06-2024 MR/POSTOPAN2 Normal [facility] Partial Thromboplast Timeon 09-06-2024 aPTT Coag (Bld) [Time] 39.0 s High 24.1-36.2 [facility] Comment on above: Performed By: #### L 300.3900, L300.4310 ####[facility] [address] [place], [address] Prothrombin Time w/INRon INR Coag (PPP) [Relative time] 1.4 {INR} Normal [facility] Comment on above: Performed By: #### L 300.3900, L300.4310 ####[facility] [address] [place], [address] PT Coag (PPP) [Time] 17.5 s High 11.7-14.9 [facility] Comment on above: Performed By: #### L 300.3900, L300.4310 ####[facility] [address] [place], [address] Stool Occult Blood iFOBon STOB Positive Normal [facility] Comment on above: Performed By: #### M 100.7900 ####[facility] [address] [place], [place], [id number] Stool gastrointestinal hemog lobin detection by immunologic methodOrdered By: Addy Nelson on 09-06-2024 Lower GI hemoglobin IA Ql (Stl) Positive Abnormal [facility] Trough vancomycin levelOrder ed By: Serina Juan on 09-06-2024 Vancomycin trough [Mass/Vol] 8.6 ug/mL 5.0-15.0 [facility] Vancomycin, Trough Levelon 0 09-06-2024 VANCO, TROUGH 8.6 ug/mL Normal 5.0-15.0 [facility] Comment on above: Order Comment: Comme nts: Trough to be drawn 30 mins prior to scheduled dose Result Comment: Homer mmended goal trough ranges are generally 10-15 mcg/mlfor less severe/complicated infections such as cellulitisor UTI and 15-20 mcg/ml for more severe/complicatedinfections such as bacteremia/sepsis, osteomyelitis,pneumonia or meningitis. Goal trough ranges should takeinto account indication, patient-specific factors andorganism DORYS.VANCOMYCIN STANDARED DRUG THERAPY TROUGH LEVEL: 5.0 - 15.0 mg/LVANCOMYCIN HIGH INTENSITY THERAPY TROUGH LEVEL: 15.0 - 20.0 mg/LHigh Intensity therapy recommended for serious lifethreatening infections include:- Outtofhlcq-Pgpgjmvvehmg-Zhjtcnmpk (Ventilator/Healtcare Associated)-SepsisPLEASE CONTACT PHARMACY SERVICES (#2916) FOR INTERPRETATIONOF RESULTS. Performed By: #### L 501.8820 ####[facility] [address] [place], [place], [id number] BRCon 09-05-2024 RC Normal [facility] Comment on above: Result Comment: [id number] AN RC TRANSFUSED 09/05/24 0939 Performed By: #### B , [facility] ####[facility] [address] [facility] [address] [place], [place], [id number] Basic Metabolic Profile (BMP )on 09-05-2024 BUN/CRE 6.4 RATIO Low 10-20 [facility] Comment on above: Performed By: #### L 503.6030, L500.2500, L100.0100 ####[facility] [address] [place], [address] Calcium [Mass/Vol] 7.9 mg/dL Normal 7.6-11.0 [facility] Comment on above: Performed By: #### L 503.6030, L500.2500, L100.0100 ####[facility] [address] [place], [address] Chloride [Moles/Vol] 94 mmol/L Low 98-108 [facility] Comment on above: Performed By: #### L 503.6030, L500.2500, L100.0100 ####[facility] [address] [place], [address] CO2 [Moles/Vol] 28.0 mmol/L Normal 21.0-32.0 [facility] Comment on above: Performed By: #### L 503.6030, L500.2500, L100.0100 ####[facility] [address] [place], [address] Creatinine [Mass/Vol] 0.69 mg/dL Low 0.70-1.20 [facility] Comment on above: Performed By: #### L 503.6030, L500.2500, L100.0100 ####[facility] [address] [place], [address] ECRCL 66.00 ml/min Normal 50-250 [facility] Comment on above: Performed By: #### L 503.6030, L500.2500, L100.0100 ####[facility] [address] [place], [address] GAP 9 Normal 5-15 [facility] Comment on above: Performed By: #### L 503.6030, L500.2500, L100.0100 ####[facility] [address] [place], [address] GFR/1.73 sq M.predicted among non-blacks MDRD (S/P/Bld) [Vol rate/Area] 101 mL/min/{1.73_m2} Normal >60 [facility] Comment on above: Result Comment: mL/m in/1.73m2 CKD-EPI Creatinine Equation (2020) Performed By: #### L 503.6030, L500.2500, L100.0100 ####[facility] [address] [place], [address] Glucose [Mass/Vol] 222 mg/dL High 70-99 [facility] Comment on above: Performed By: #### L 503.6030, L500.2500, L100.0100 ####[facility] [address] [place], [address] Potassium [Moles/Vol] 3.0 mmol/L Low 3.3-5.1 [facility] Comment on above: Performed By: #### L 503.6030, L500.2500, L100.0100 ####[facility] [address] [place], [address] Sodium [Moles/Vol] 131 mmol/L Low 133-145 [facility] Comment on above: Performed By: #### L 503.6030, L500.2500, L100.0100 ####[facility] [address] [place], [address] Urea nitrogen [Mass/Vol] 4 mg/dL Normal - [facility] Comment on above: Performed By: #### L 503.6030, L500.2500, L100.0100 ####[facility] [address] [place], [address] BUN Normal - [facility] Comment on above: Result Comment: DUPL ICATE DRAWN AT 0614 Performed By: #### L 500.2500 ####[facility] [address] [place], [address] BUN/CRE Normal 10-20 [facility] Comment on above: Result Comment: DUPL ICATE DRAWN AT 0614 Performed By: #### L 500.2500 ####[facility] [address] [place], [address] Calcium Normal 7.6-11.0 [facility] Comment on above: Result Comment: DUPL ICATE DRAWN AT 0614 Performed By: #### L 500.2500 ####[facility] [address] [place], [address] CL Normal 98-108 [facility] Comment on above: Result Comment: DUPL ICATE DRAWN AT 0614 Performed By: #### L 500.2500 ####[facility] [address] [place], [address] CO2 Normal 21.0-32.0 [facility] Comment on above: Result Comment: DUPL ICATE DRAWN AT 0614 Performed By: #### L 500.2500 ####[facility] [address] [place], [address] CREAT,SERUM Normal 0.70-1.20 [facility] Comment on above: Result Comment: DUPL ICATE DRAWN AT 0614 Performed By: #### L 500.2500 ####[facility] [address] [place], [address] eGFR Normal >60 [facility] Comment on above: Result Comment: DUPL ICATE DRAWN AT 0614 Performed By: #### L 500.2500 ####[facility] [address] [place], [address] GAP Normal 5-15 [facility] Comment on above: Result Comment: DUPL ICATE DRAWN AT 0614 Performed By: #### L 500.2500 ####[facility] [address] [place], [address] GLU Normal 70-99 [facility] Comment on above: Result Comment: DUPL ICATE DRAWN AT 0614 Performed By: #### L 500.2500 ####[facility] [address] [place], [address] Potassium Normal 3.3-5.1 [facility] Comment on above: Result Comment: DUPL ICATE DRAWN AT 0614 Performed By: #### L 500.2500 ####[facility] [address] [place], [address] Basic Metabolic Profile (BMP) Normal 133-145 [facility] Comment on above: Result Comment: DUPL ICATE DRAWN AT 0614 Performed By: #### L 500.2500 ####[facility] [address] [place], [address] Bedside Glucoseon - FINGERSTICK GLU 287 mg/dL High 74-106 [facility] Comment on above: Result Comment: JEFRY GEMENT OF PATIENT CARE PER NURSING PROTOCOL Performed By: #### L 501.080 ####[facility] [address] [place], [address] FINGERSTICK GLU 256 mg/dL High 74-106 [facility] Comment on above: Result Comment: JEFRY GEMENT OF PATIENT CARE PER NURSING PROTOCOL Performed By: #### L 501.080 ####[facility] [address] [place], [address] FINGERSTICK GLU 181 mg/dL High 74-106 [facility] Comment on above: Result Comment: JEFRY GEMENT OF PATIENT CARE PER NURSING PROTOCOL Performed By: #### L 501.080 ####[facility] [address] [place], [address] CBC W/Diff, Automatedon -2 Absolute Lymph 0.28 X10 3/uL Low 0.83-4.51 [facility] Comment on above: Performed By: #### L 503.6030, L500.2500, L100.0100 ####[facility] [address] [place], [address] Absolute Neut 7.1 X10 3/uL Normal 2.0-7.7 [facility] Comment on above: Performed By: #### L 503.6030, L500.2500, L100.0100 ####[facility] [address] [place], [address] Basophils/100 WBC (Bld) 0.2 % Normal 0-1 [facility] Comment on above: Performed By: #### L 503.6030, L500.2500, L100.0100 ####[facility] [address] [place], [address] Eosinophils/100 WBC (Bld) 0.0 % Normal 0-5 [facility] Comment on above: Performed By: #### L 503.6030, L500.2500, L100.0100 ####[facility] [address] [place], [address] Erythrocyte distribution width (RBC) [Ratio] 17.2 % High 11.6-14.6 [facility] Comment on above: Performed By: #### L 503.6030, L500.2500, L100.0100 ####[facility] [address] [place], [address] Hematocrit (Bld) [Volume fraction] 22.4 % Low 40-54 [facility] Comment on above: Performed By: #### L 503.6030, L500.2500, L100.0100 ####[facility] [address] [place], [address] Hemoglobin (Bld) [Mass/Vol] 6.8 g/dL Low 13.0-16.5 [facility] Comment on above: Performed By: #### L 503.6030, L500.2500, L100.0100 ####[facility] [address] [place], [address] IG% 2.100 High 0.0-0.9 [facility] Comment on above: Result Comment: IG% - Immature Granulocytes (promyelocytes, myelocytes andmetamyelocytes) > 1% indicates that a LEFT SHIFT is Present. Performed By: #### L 503.6030, L500.2500, L100.0100 ####[facility] [address] [place], [address] Lymphocytes/100 WBC (Bld) 3.4 % Low 19-41 [facility] Comment on above: Performed By: #### L 503.6030, L500.2500, L100.0100 ####[facility] [address] [place], [address] MCH (RBC) [Entitic mass] 27.4 pg Normal 27.0-32.0 [facility] Comment on above: Performed By: #### L 503.6030, L500.2500, L100.0100 ####[facility] [address] [place], [address] MCHC (RBC) [Mass/Vol] 30.4 g/dL Low 32-36 [facility] Comment on above: Performed By: #### L 503.6030, L500.2500, L100.0100 ####[facility] [address] [place], [address] MCV (RBC) [Entitic vol] 90.3 fL Normal 80-94 [facility] Comment on above: Performed By: #### L 503.6030, L500.2500, L100.0100 ####[facility] [address] [place], [address] Monocytes/100 WBC (Bld) 6.7 % Normal 0-10 [facility] Comment on above: Performed By: #### L 503.6030, L500.2500, L100.0100 ####[facility] [address] [place], [address] Neutrophils/100 WBC (Bld) 87.6 % High 47-70 [facility] Comment on above: Performed By: #### L 503.6030, L500.2500, L100.0100 ####[facility] [address] [place], [address] Nucleated RBC (Bld) [#/Vol] 0 10*3/uL Normal 0-5 [facility] Comment on above: Performed By: #### L 503.6030, L500.2500, L100.0100 ####[facility] [address] [place], [address] Platelet mean volume (Bld) [Entitic vol] 10.2 fL Normal 6.2-12.0 [facility] Comment on above: Performed By: #### L 503.6030, L500.2500, L100.0100 ####[facility] [address] [place], [address] Platelets (Bld) [#/Vol] 160 10*3/uL Normal 150-450 [facility] Comment on above: Performed By: #### L 503.6030, L500.2500, L100.0100 ####[facility] [address] [place], [address] RBC (Bld) [#/Vol] 2.48 10*6/uL Low 4.6-6.2 [facility] Comment on above: Performed By: #### L 503.6030, L500.2500, L100.0100 ####[facility] [address] [place], [address] RDW SD 56.8 fl High 35.1-43.9 [facility] Comment on above: Performed By: #### L 503.6030, L500.2500, L100.0100 ####[facility] [address] [place], [address] WBC (Bld) [#/Vol] 8.1 10*3/uL Normal 4.4-11.0 [facility] Comment on above: Performed By: #### L 503.6030, L500.2500, L100.0100 ####[facility] [address] [place], [address] Consultation - Intensiviston 09-05-2024 Consultation - Court Reporter Normal [facility] ENTERIC PATHOGEN PANEL STOOL on 09-05-2024 EP PANEL Normal [facility] Comment on above: Performed By: #### M 100.637, M100.6796 ####[facility] [address] [place], [place], [id number] Electrocardiogram reportOrde red By: Peter Mohan on 09-05-2024 EKG study [facility] Work Phone: Gram Stainon 09-05-2024 GS Normal [facility] Comment on above: Performed By: #### M 100.2000, M100.2400 ####[facility] [address] [place], [place], [id number] Gram stainOrdered By: Serina Juan on 09-05-2024 Microscopic observation Gram stain Nom (Unsp spec) [facility] Hemoglobin A1con 09-05-2024 HbA1c (Bld) [Mass fraction] 7.7 % High <=5.6 [facility] Comment on above: Result Comment: Norm al < 5.7 % Prediabetic 5.7 - 6.4 % Diabetic >or= 6.5 % Please note range changes. Performed By: #### L 501.9945 ####[facility] [address] [place], [place], [id number] Hemoglobin A1c percentageOrd ered By: Stanton Ortega on 09-05-2024 HbA1c (Bld) [Mass fraction] 7.7 % High <5.7 [facility] Iron measurement (mass/mass) Ordered By: Serina Juan on 06-24-2025 Iron (Unsp spec) [Mass/Mass] 17 ug/dL Low 65-175 [facility] Iron+Iron Binding Capacityon 09-05-2024 TIBC 121 ug/dL Low 250-450 [facility] Comment on above: Performed By: #### L 503.6030, L500.2500, L100.0100 ####[facility] [address] [place], [address] MR/CON.PCM.GIon 09-05-2024 MR/CON.PCM.GI Normal [facility] Magnesiumon 09-05-2024 Magnesium [Mass/Vol] 1.3 mg/dL Low 1.5-2.2 [facility] Comment on above: Performed By: #### L 501.2300, L501.5200 ####[facility] [address] [place], [address] Microbial respiratory cultur eOrdered By: Serina Juan on 09-05-2024 Microorganism identified Cx Nom (Unsp spec) [facility] No Panel InformationOrdered By: Serina Juan on 09-05-2024 104 ug/dL Low 228-428 [facility] Phosphoruson 09-05-2024 Phosphate [Mass/Vol] 2.2 mg/dL Low 2.7-4.5 [facility] Comment on above: Performed By: #### L 501.2300, L501.5200 ####[facility] [address] [place], [address] Respiratory Cultureon 2024 RESPC List Antibiotics Las t 48 Hours? Marni Zuñiga UNACCEPTABLE SAMPLE, NOTIFIED JED MATTHEW 09/05/24 1123 Madeleine Rogers. REPORT READ BACK BY SAME. Test not performed Normal [facility] Comment on above: Performed By: #### M 100.2000, M100.2400 ####[facility] [address] [place], [address] Serum or plasma iron saturat ion measurement (mass fraction)Ordered By: Serina Juan on 09-05-2024 Iron saturation [Mass fraction] 14.0 % 9-55 [facility] Type AND Screenon 09-05-2024 Ab SCREEN GEL Negative Normal [facility] Comment on above: Order Comment: CMV N EG? NNumber of units to transfuse: 1Reason for Ordering Blood: AcuteAre the blood/blood products to be transfused? YIs the patient having/had surgery? NNWhen ReadyNYA Performed By: #### B TS, BRC ####[facility] [address] [place], [place], [id number] Urine Cultureon 09-05-2024 URC Culture exhibits no growth. Normal [facility] Comment on above: Performed By: #### L 400.0001, M100.678, M100.2200 ####[facility] [address] [place], [place], [id number] 12 Lead EKGon 09-04-2024 12 Lead EKG Normal [facility] Absolute lymphocyte countOrd ered By: Janie Madsen on 09-04-2024 Lymphocytes Auto (Unsp spec) [#/Vol] 0.41 10*3/uL Low 0.83-4.51 [facility] Absolute neutrophil countOrd ered By: Janie Madsen on 09-04-2024 Neutrophils (Bld) [#/Vol] 13.8 10*3/uL High 2.0-7.7 [facility] Anion gap in Serum or Plasma Ordered By: Janie Madsen on 09-04-2024 Anion gap [Moles/Vol] 14 mmol/L 5-15 [facility] Automated blood erythrocyte countOrdered By: Janie Madsen on 09-04-2024 RBC (Bld) [#/Vol] 2.60 10*6/uL Low 4.6-6.2 [facility] Comment on above: Performed By: #### L 500.2500, L100.0100, L503.6005 ####[facility] [address] [place], [address] Automated blood hematocrit ( percentage)Ordered By: Janie Madsen on 09-04-2024 Hematocrit (Bld) [Volume fraction] 22.7 % Low 40-54 [facility] Comment on above: Performed By: #### L 500.2500, L100.0100, L503.6005 ####[facility] [address] [place], [address] Automated lymphocyte count a s percentage of total leukocytesOrdered By: Remus Ungur on 09-04-2024 Lymphocytes/100 WBC Auto (Unsp spec) 2.7 % Low 19-41 [facility] BUN/creatinine ratioOrdered By: Remus Ungur on 09-04-2024 Urea nitrogen/Creatinine [Mass ratio] 8.3 mg/mg Low 10-20 [facility] Basic Metabolic Profile (BMP )on 09-04-2024 BUN Normal 4-19 [facility] Comment on above: Result Comment: NO S PECIMEN COLLECTED Performed By: #### L 500.2500 ####[facility] [address] [place], [address] BUN/CRE Normal 10-20 [facility] Comment on above: Result Comment: NO S PECIMEN COLLECTED Performed By: #### L 500.2500 ####[facility] [address] [place], [address] Calcium Normal 7.6-11.0 [facility] Comment on above: Result Comment: NO S PECIMEN COLLECTED Performed By: #### L 500.2500 ####[facility] [address] [place], [address] CL Normal 98-108 [facility] Comment on above: Result Comment: NO S PECIMEN COLLECTED Performed By: #### L 500.2500 ####[facility] [address] [place], [address] CO2 Normal 21.0-32.0 [facility] Comment on above: Result Comment: NO S PECIMEN COLLECTED Performed By: #### L 500.2500 ####[facility] [address] [place], [address] CREAT,SERUM Normal 0.70-1.20 [facility] Comment on above: Result Comment: NO S PECIMEN COLLECTED Performed By: #### L 500.2500 ####[facility] [address] [place], [address] eGFR Normal >60 [facility] Comment on above: Result Comment: NO S PECIMEN COLLECTED Performed By: #### L 500.2500 ####[facility] [address] [place], [address] GAP Normal 5-15 [facility] Comment on above: Result Comment: NO S PECIMEN COLLECTED Performed By: #### L 500.2500 ####[facility] [address] [place], [address] GLU Normal 70-99 [facility] Comment on above: Result Comment: NO S PECIMEN COLLECTED Performed By: #### L 500.2500 ####[facility] [address] [place], [address] Potassium Normal 3.3-5.1 [facility] Comment on above: Result Comment: NO S PECIMEN COLLECTED Performed By: #### L 500.2500 ####[facility] [address] [place], [address] Basic Metabolic Profile (BMP) Normal 133-145 [facility] Comment on above: Result Comment: NO S PECIMEN COLLECTED Performed By: #### L 500.2500 ####[facility] [address] [place], [address] BUN/CRE 7.5 RATIO Low 10-20 [facility] Comment on above: Performed By: #### L 503.6550, L503.0106, L100.9950, L500.2500, L3100.1725 ####[facility] [address] [place], [address] Calcium [Mass/Vol] 8.1 mg/dL Normal 7.6-11.0 [facility] Comment on above: Performed By: #### L 503.6550, L503.0106, L100.9950, L500.2500, L3100.1725 ####[facility] [address] [place], [address] Chloride [Moles/Vol] 89 mmol/L Low 98-108 [facility] Comment on above: Performed By: #### L 503.6550, L503.0106, L100.9950, L500.2500, L3100.1725 ####[facility] [address] [place], [address] CO2 [Moles/Vol] 30.3 mmol/L Normal 21.0-32.0 [facility] Comment on above: Performed By: #### L 503.6550, L503.0106, L100.9950, L500.2500, L3100.1725 ####[facility] [address] [place], [address] Creatinine [Mass/Vol] 0.87 mg/dL Normal 0.70-1.20 [facility] Comment on above: Performed By: #### L 503.6550, L503.0106, L100.9950, L500.2500, L3100.1725 ####[facility] [address] [place], [address] ECRCL 61.49 ml/min Normal 50-250 [facility] Comment on above: Performed By: #### L 503.6550, L503.0106, L100.9950, L500.2500, L3100.1725 ####[facility] [address] [place], [address] GAP 10 Normal 5-15 [facility] Comment on above: Performed By: #### L 503.6550, L503.0106, L100.9950, L500.2500, L3100.1725 ####[facility] [address] [place], [address] GFR/1.73 sq M.predicted among non-blacks MDRD (S/P/Bld) [Vol rate/Area] 94 mL/min/{1.73_m2} Normal >60 [facility] Comment on above: Result Comment: mL/m in/1.73m2 CKD-EPI Creatinine Equation (2020) Performed By: #### L 503.6550, L503.0106, L100.9950, L500.2500, L3100.1725 ####[facility] [address] [place], [address] Glucose [Mass/Vol] 158 mg/dL High 70-99 [facility] Comment on above: Performed By: #### L 503.6550, L503.0106, L100.9950, L500.2500, L3100.1725 ####[facility] [address] [place], [address] Potassium [Moles/Vol] 2.4 mmol/L Invalid Interpretation Code 3.3-5.1 [facility] Comment on above: Result Comment: Crit ical Result(s) Called to: Meghan MATTHEW (ICU) by:Geovanna??Results read back by same. Performed By: #### L 503.6550, L503.0106, L100.9950, L500.2500, L3100.1725 ####[facility] [address] [place], [address] Sodium [Moles/Vol] 129 mmol/L Low 133-145 [facility] Comment on above: Performed By: #### L 503.6550, L503.0106, L100.9950, L500.2500, L3100.1725 ####[facility] [address] [place], [address] Urea nitrogen [Mass/Vol] 7 mg/dL Normal 4-19 [facility] Comment on above: Performed By: #### L 503.6550, L503.0106, L100.9950, L500.2500, L3100.1725 ####[facility] [address] [place], [address] BUN/CRE 8.3 RATIO Low 10-20 [facility] Comment on above: Performed By: #### L 500.2500, L100.0100, L503.6005 ####[facility] [address] [place], [address] ECRCL 85.00 ml/min Normal 50-250 [facility] Comment on above: Performed By: #### L 500.2500, L100.0100, L503.6005 ####[facility] [address] [place], [address] GAP 14 Normal 5-15 [facility] Comment on above: Performed By: #### L 500.2500, L100.0100, L503.6005 ####[facility] [address] [place], [address] Potassium [Moles/Vol] 2.5 mmol/L Invalid Interpretation Code 3.3-5.1 [facility] Comment on above: Result Comment: Crit ical Result(s) Called at: 09/06/2024-12:13 by: Wilmer Rainey.??Results read back by same. Performed By: #### L 500.2500, L100.0100, L503.6005 ####[facility] [address] [place], [address] Basophil percentageOrdered B y: Remus Ungur on 09-04-2024 Basophils/100 WBC (Bld) 0.1 % Normal 0-1 [facility] Comment on above: Performed By: #### L 500.2500, L100.0100, L503.6005 ####[facility] [address] [place], [address] Bedside Glucoseon 09-04-2024 FINGERSTICK GLU 197 mg/dL High 74-106 [facility] Comment on above: Result Comment: JEFRY GEMENT OF PATIENT CARE PER NURSING PROTOCOL Performed By: #### L 501.080 ####[facility] [address] [place], [address] FINGERSTICK GLU 152 mg/dL High 74-106 [facility] Comment on above: Result Comment: JEFRY GEMENT OF PATIENT CARE PER NURSING PROTOCOL Performed By: #### L 501.080 ####[facility] [address] [place], [address] Bilirubin Test strip Ql (U)O rdered By: Remus Ungur on 09-04-2024 Bilirubin Ql (U) Negative Negative [facility] Blood cultureOrdered By: Rem us Ungur on 09-04-2024 Bacteria identified Cx Nom (Bld) Staphylococcus aureus Abnormal [facility] Bacteria identified Cx Nom (Bld) Streptococcus group G Abnormal [facility] CBC W/Diff, Automatedon 08-14 Absolute Lymph 0.41 X10 3/uL Low 0.83-4.51 [facility] Comment on above: Performed By: #### L 500.2500, L100.0100, L503.6005 ####[facility] [address] [place], [address] Absolute Neut 13.8 X10 3/uL High 2.0-7.7 [facility] Comment on above: Performed By: #### L 500.2500, L100.0100, L503.6005 ####[facility] [address] [place], [address] IG% 1.500 High 0.0-0.9 [facility] Comment on above: Result Comment: IG% - Immature Granulocytes (promyelocytes, myelocytes andmetamyelocytes) > 1% indicates that a LEFT SHIFT is Present. Performed By: #### L 500.2500, L100.0100, L503.6005 ####[facility] [address] [place], [address] Lymphocytes/100 WBC (Bld) 2.7 % Low 19-41 [facility] Comment on above: Performed By: #### L 500.2500, L100.0100, L503.6005 ####[facility] [address] [place], [address] Nucleated RBC (Bld) [#/Vol] 0 10*3/uL Normal 0-5 [facility] Comment on above: Performed By: #### L 500.2500, L100.0100, L503.6005 ####[facility] [address] [place], [address] RDW SD 53.2 fl High 35.1-43.9 [facility] Comment on above: Performed By: #### L 500.2500, L100.0100, L503.6005 ####[facility] [address] [place], [address] CDIFF (PCR)on 09-04-2024 CDIFF Is the patient recei ving laxatives? N New/unexplained onset of 3 or more stools in past 24 hrs? Y Pending 027 027 NAP1-B1 Presumptive Negative *for epidemiolologic???use C. Diff PCR Negative- No toxigenic C. Diff Detected Normal [facility] Comment on above: Performed By: #### M 100.637, M100.6796 ####[facility] [address] [place], [address] CNPNon 09-04-2024 CNPN Telephone (HEMAWS) REY MEAD ([id number]) 1955 M Date Time Provider Department 09/04/24 SHILPI WARE During your visit today, we recorded the following information about you: Shilpi Ware RN 09/04/2024 4:14 PM Signed Patient admitted to [facility]. Will follow for discharge and schedule follow up with Dr. Duncan. VIUPL Castro Melissa 09/06/2024 10:50 AM Signed Received call today to reschedule 09/05 appt with Angie. Stating that patient may be discharged in a couple of days. Patient is scheduled for 09/12. Caller requested to inform Dr. Dunaway as well. Allergies As of Date: 09/04/2024 (No Known Allergies) Date Reviewed: 08/28/2024 Reviewed by: Enriqueta Amado RN - Fully Assessed Reason for Visit: Patient Update [1234] Prescriptions as of 09/07/2024 - gabapentin (NEURONTIN) 300 mg capsule Take 1 capsule by mouth once daily for 30 days. - acetaminophen (TYLENOL EXTRA STRENGTH) 500 mg tablet Take 1,000 mg by mouth every 6 hours as needed. - insulin 75/25 lispro protamine-lispro units/mL (HUMALOG MIX 75/25 KWIKPEN) 100 unit/mL (75-25) pen Inject 15 Units subcutaneously two times a day with meals. - predniSONE (DELTASONE) 5 mg tablet Take 15 mg by mouth once daily. take three a day to finish course, Dr Hurd - VITAMIN B COMPLEX-100 ORAL Take by mouth. - fluticasone/umeclidin/vilan ter (TRELEGY ELLIPTA INHALATION) Inhale 1 Puff as instructed once daily. - SQQIHOORDAZ-IWUVYCAJD-PFOFQ TER INHALATION Inhale as instructed. - ALBUTEROL INHALATION Inhale 2 Puffs as instructed every 4 hours as needed. - aspirin 81 mg cap Take 81 mg by mouth once daily. - atorvastatin (LIPITOR) 20 mg tablet Take 20 mg by mouth once daily. - albuterol (PROVENTIL) 2.5 mg /3 mL (0.083 %) nebulizer solution Use 2.5 mg via nebulizer every 4 hours as needed. - albuterol HFA (PROVENTIL HFA, VENTOLIN HFA) 90 mcg/actuation inhaler Inhale 1-2 Puffs as instructed every 4 hours as needed. - FARXIGA 5 mg tablet Take 5 mg by mouth once daily. - furosemide (LASIX) 40 mg tablet Take 40 mg by mouth once daily. - lisinopril 2.5 mg tablet Take 2.5 mg by mouth once daily. - LORazepam (ATIVAN) 1 mg tablet Take 1 mg by mouth every 6 hours as needed. - metFORMIN ER (FORTAMET) 500 mg 24 hr tablet Take one tablet by mouth in AM AND two tablets in PM. - metoprolol tartrate, short acting, (LOPRESSOR) 50 mg tablet Take 50 mg by mouth once daily. - PARoxetine (PAXIL) 10 mg tablet Take 10 mg by mouth once daily. - pregabalin (LYRICA) 150 mg capsule Take 150 mg by mouth once daily. - roflumilast (DALIRESP) 250 mcg tablet Take 250 mcg by mouth once daily. - RYBELSUS 14 mg tablet Take 7 mg by mouth once daily. - tamsulosin (FLOMAX) 0.4 mg Take 0.4 mg by mouth once daily. - L.acid/L.casei/B.bif/B.link/ FOS (PROBIOTIC BLEND ORAL) Take 1 capsule by mouth once daily. 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*03/19/2023 Lung mass [R91.8] 04/02/2023 Squamous cell carcinoma of left lung (HCC) [C34*08/28/2024 Encounter Status:Closed by SHILPI WARE on 09/07/[address] [facility] [address] Chest, Abd, Pel w/Contras ton 09-04-2024 CT Chest, Abd, Pel w/Contrast Normal [facility] Carbon dioxide, total [Moles /volume] in Central venous bloodOrdered By: Janie Madsen on 09-04-2024 CO2 [Moles/Vol] 29.8 mmol/L Normal 21.0-32.0 [facility] Comment on above: Performed By: #### L 500.2500, L100.0100, L503.6005 ####[facility] [address] [place], [address] Chest 1 View (Portable)on Chest 1 View (Portable) Normal [facility] Chloride assayOrdered By: Karen Madsen on 09-04-2024 Chloride [Moles/Vol] 80 mmol/L Low 98-108 [facility] Comment on above: Performed By: #### L 500.2500, L100.0100, L503.6005 ####[facility] [address] [place], [address] Clostridium difficile detect ion by polymerase chain reactionOrdered By: Serina Juan on 09-04-2024 C. difficile DNA PREMA+probe Ql (Unsp spec) [facility] Emergency Department Summary on 09-04-2024 Emergency Department Summary Normal [facility] Eosinophil percentageOrdered By: Janie Madsen on 09-04-2024 Eosinophils/100 WBC (Bld) 0.0 % Normal 0-5 [facility] Comment on above: Performed By: #### L 500.2500, L100.0100, L503.6005 ####[facility] [address] [place], [address] Erythrocyte distribution wid th ratioOrdered By: Janie Madsen on 09-04-2024 Erythrocyte distribution width (RBC) [Ratio] 16.9 % High 11.6-14.6 [facility] Comment on above: Performed By: #### L 500.2500, L100.0100, L503.6005 ####[facility] [address] [place], [address] Erythrocyte distribution wid th standard deviationOrdered By: Janie Madsen on 09-04-2024 Erythrocyte distribution width (RBC) [Ratio] 53.2 fl High 35.1-43.9 [facility] Erythrocyte folate measureme nt with hematocritOrdered By: Serina Juan on 09-04-2024 Hematocrit (Bld) [Volume fraction] 22.6 % Low 37.5-51.0 [facility] Ferritinon 09-04-2024 Ferritin [Mass/Vol] 1172 ng/mL High 37-417 [facility] Comment on above: Performed By: #### L 503.6550, L503.0106, L100.9950, L500.2500, L3100.1725 ####[facility] [address] [place], [place], [id number] Glomerular filtration rate ( GFR) estimation/1.73 sq m using serum, plasma, or whole bOrdered By: Janie Madsen on 09-04-2024 GFR/1.73 sq M.predicted among non-blacks MDRD (S/P/Bld) [Vol rate/Area] 89 mL/min/{1.73_m2} Normal >60 [facility] Comment on above: mL/min/1.73m2 CKD-EP I Creatinine Equation (2020) Result Comment: mL/m in/1.73m2 CKD-EPI Creatinine Equation (2020) Performed By: #### L 500.2500, L100.0100, L503.6005 ####[facility] [address] [place], [place], [id number] H AND P Exam - Hospitaliston 09-04-2024 H&P Exam - Hospitalist Normal [facility] Hemoglobin measurementOrdere d By: Janie Madsen on 09-04-2024 Hemoglobin (Bld) [Mass/Vol] 7.2 g/dL Low 13.0-16.5 [facility] Comment on above: Performed By: #### L 500.2500, L100.0100, L503.6005 ####[facility] [address] [place], [place], [id number] Immature granulocytes/100 WB C Auto (Bld)Ordered By: Janie Madsen on 09-04-2024 Immature granulocytes/100 WBC (Bld) 1.500 % High 0.0-0.9 [facility] Comment on above: IG% - Immature Granu locytes (promyelocytes, myelocytes and metamyelocytes) > 1% indicates that a LEFT SHIFT is Present. Influenza virus A and B and SARS-CoV-2 (COVID-19) and Respiratory syncytial virus RNAOrdered By: Janie Cale on 09-04-2024 SARS-CoV-2 (COVID-19) RNA PREMA+probe Ql (Unsp spec) [facility] Ketones Test strip Ql (U)Ord ered By: Janie Dempseyjennifer on 09-04-2024 Ketones Ql (U) Negative Negative [facility] Lactic Acidon 09-04-2024 Lactate [Moles/Vol] 1.1 mmol/L Normal 0.0-2.0 [facility] Comment on above: Performed By: #### L 503.6005 ####[facility] [address] [place], [place], [id number] Lactic acid measurementOrder ed By: Janie Cale on 09-04-2024 Lactate [Moles/Vol] 2.9 mmol/L Invalid Interpretation Code 0.0-2.0 [facility] Comment on above: Critical Result(s) C alled at: 09/06/2024-12:13 by: Marco Hicks to Triny Rainey. Results read back by same. Order Comment: Y Result Comment: Crit ical Result(s) Called at: 09/06/2024-12:13 by: Wilmer Rainey.??Results read back by same. Performed By: #### L 500.2500, L100.0100, L503.6005 ####[facility] [address] [place], [address] M100.678on 09-04-2024 M100.678 SARS-CoV-2 (COVID 19 ) Negative INFLUENZA A Negative INFLUENZA B Negative RSV PCR Negative Normal [facility] Comment on above: Performed By: #### L 400.0001, M100.678, M100.2200 ####[facility] [address] [place], [address] MCV (mean corpuscular volume ) determinationOrdered By: Remus Madsen on 09-04-2024 MCV (RBC) [Entitic vol] 87.3 fL Normal 80-94 [facility] Comment on above: Performed By: #### L 500.2500, L100.0100, L503.6005 ####[facility] [address] [place], [place], [id number] Mean corpuscular hemoglobin (MCH) determinationOrdered By: Remus Cale on 09-04-2024 MCH (RBC) [Entitic mass] 27.7 pg Normal 27.0-32.0 [facility] Comment on above: Performed By: #### L 500.2500, L100.0100, L503.6005 ####[facility] [address] [place], [address] Mean corpuscular hemoglobin concentration (MCHC) determinationOrdered By: Remus Madsen on 09-04-2024 MCHC (RBC) [Mass/Vol] 31.7 g/dL Low 32-36 [facility] Comment on above: Performed By: #### L 500.2500, L100.0100, L503.6005 ####[facility] [address] [place], [address] Mean platelet volume determi nationOrdered By: Janie Madsen on 09-04-2024 Platelet mean volume (Bld) [Entitic vol] 10.1 fL Normal 6.2-12.0 [facility] Comment on above: Performed By: #### L 500.2500, L100.0100, L503.6005 ####[facility] [address] [place], [address] Microscopic analysis of urin e for red blood cells (RBC)Ordered By: Janie Madsen on 09-04-2024 Microscopic analysis of urine for red blood cells (RBC) 0-5 SEEN /hpf 0-5 [facility] Monocyte percentageOrdered B y: Janie Madsen on 09-04-2024 Monocytes/100 WBC (Bld) 5.5 % Normal 0-10 [facility] Comment on above: Performed By: #### L 500.2500, L100.0100, L503.6005 ####[facility] [address] [place], [address] Mucus LM Ql (Urine sed)Order ed By: Janie Madsen on 09-04-2024 Mucus Ql (Urine sed) 0 SEEN /hpf [facility] Neutrophil percentageOrdered By: Janie Madsen on 09-04-2024 Neutrophils/100 WBC (Bld) 90.2 % High 47-70 [facility] Comment on above: Performed By: #### L 500.2500, L100.0100, L503.6005 ####[facility] [address] [place], [place], [phone] Nitrite Test strip Ql (U)Ord ered By: Janie Madsen on 09-04-2024 Nitrite Ql (U) Negative Negative [facility] Nucleated red blood cell per centageOrdered By: Janie Madsen on 09-04-2024 Nucleated RBC/100 WBC (Bld) [Ratio] 0 % 0-5 [facility] Pelvis 1 or 2 Viewson 2024 Pelvis 1 or 2 Views Normal [facility] Platelet countOrdered By: Karen Madsen on 09-04-2024 Platelets (Bld) [#/Vol] 235 10*3/uL Normal 150-450 [facility] Comment on above: Performed By: #### L 500.2500, L100.0100, L503.6005 ####[facility] [address] [place], [place], [id number] Potassium measurement (mass/ volume)Ordered By: Janie Madsen on 09-04-2024 Potassium (Unsp spec) [Mass/Vol] 2.5 mmol/L Low 3.3-5.1 [facility] Comment on above: Critical Result(s) C alled at: 09/06/2024-12:13 by: Marco Hicks to Triny Rainey. Results read back by same. Protein Test strip Ql (U)Ord ered By: Janie Madsen on 09-04-2024 Protein Ql (U) 30 mg/dl High Negative [facility] Retic Panelon 09-04-2024 IM RET FRACTION 17.80 High 3.00-15.90 [facility] Comment on above: Performed By: #### L 503.6550, L503.0106, L100.9950, L500.2500, L3100.1725 ####[facility] [address] [place], [address] RET-HE 25.2 pg Low 30-35 [facility] Comment on above: Performed By: #### L 503.6550, L503.0106, L100.9950, L500.2500, L3100.1725 ####[facility] [address] [place], [address] Retic Count 2.23 High 0.5-1.5 [facility] Comment on above: Performed By: #### L 503.6550, L503.0106, L100.9950, L500.2500, L3100.1725 ####[facility] [address] [place], [address] Reticulocyte hemoglobin equi valent (RET-He) measurementOrdered By: Serina Juan on 09-04-2024 Hemoglobin (Reticulocytes) [Entitic mass] 25.2 pg Low 30-35 [facility] Reticulocytes Auto (Bld) [#/ Vol]Ordered By: Serina Juan on 09-04-2024 Reticulocytes/100 RBC (Bld) 2.23 % High 0.5-1.5 [facility] Serum creatinine measurement (mass/volume)Ordered By: Janie Madsen on 09-04-2024 Creatinine [Mass/Vol] 0.94 mg/dL Normal 0.70-1.20 [facility] Comment on above: Performed By: #### L 500.2500, L100.0100, L503.6005 ####[facility] [address] [place], [address] Serum glucose measurement (m ass/volume)Ordered By: Janie Madsen on 09-04-2024 Glucose [Mass/Vol] 280 mg/dL High 70-99 [facility] Comment on above: Performed By: #### L 500.2500, L100.0100, L503.6005 ####[facility] [address] [place], [address] Serum or plasma calcium alfreda urement (mass/volume)Ordered By: Remus Madsen on 09-04-2024 Calcium [Mass/Vol] 8.4 mg/dL Normal 7.6-11.0 [facility] Comment on above: Performed By: #### L 500.2500, L100.0100, L503.6005 ####[facility] [address] [place], [address] Serum or plasma ferritin joe surement (mass/volume)Ordered By: Serina Juan on 09-04-2024 Ferritin [Mass/Vol] 1172 ng/mL High 37-417 [facility] Serum or plasma urea nitroge n measurement (mass/volume)Ordered By: Janie Madsen on 09-04-2024 Urea nitrogen [Mass/Vol] 8 mg/dL Normal 4-19 [facility] Comment on above: Performed By: #### L 500.2500, L100.0100, L503.6005 ####[facility] [address] [place], [address] Sodium levelOrdered By: Shon Madsen on 09-04-2024 Sodium [Moles/Vol] 124 mmol/L Low 133-145 [facility] Comment on above: Performed By: #### L 500.2500, L100.0100, L503.6005 ####[facility] [address] [place], [address] Squamous epithelial cells de tection in urine sediment by light microscopyOrdered By: Janie Madsen on 09-04-2024 Epithelial cells.squamous LM Ql (Urine sed) 0-5 SEEN /hpf 0-5 [facility] Toe(s) Min 2 Viewson 025 Toe(s) Min 2 Views Normal [facility] Urinalysis, Completeon 09-04 EPI,SQUAMOUS 0-5 SEEN Normal 0-5 [facility] Comment on above: Order Comment: CLEAN CATCH Performed By: #### L 400.0001, M100.678, M100.2200 ####[facility] [address] [place], [address] RBC 0-5 SEEN Normal 0-5 [facility] Comment on above: Order Comment: CLEAN CATCH Performed By: #### L 400.0001, M100.678, M100.2200 ####[facility] [address] [place], [address] WBC 0-5 SEEN Normal 0-5 [facility] Comment on above: Order Comment: CLEAN CATCH Performed By: #### L 400.0001, M100.678, M100.2200 ####[facility] [address] [place], [address] BACTERIA 0 SEEN Normal None Seen [facility] Comment on above: Order Comment: CLEAN CATCH Performed By: #### L 400.0001, M100.678, M100.2200 ####[facility] [address] [place], [address] Mucus Ql (Urine sed) 0 SEEN Normal [facility] Comment on above: Order Comment: CLEAN CATCH Performed By: #### L 400.0001, M100.678, M100.2200 ####[facility] [address] [place], [address] Urine clarityOrdered By: Rem us Ungur on 09-04-2024 Clarity (U) Clear Clear [facility] Urine color determinationOrd ered By: Remus Ungur on 09-04-2024 Color (U) Yellow Yellow [facility] Urine cultureOrdered By: Rem us Ungur on 09-04-2024 Bacteria identified Cx Nom (U) Culture exhibits no growth. [facility] Urine glucose detectionOrder ed By: Janie Madsen on 09-04-2024 Glucose Ql (U) 50 mg/dl High Normal [facility] Urine leukocyte esterase det ection by dipstickOrdered By: Janie Madsen on 09-04-2024 Leukocyte esterase Test strip Ql (U) Negative Negative [facility] Urine pHOrdered By: Janie Un gur on 09-04-2024 pH (U) 6.0 [pH] 5.0 - 8.0 [facility] Urine sediment bacteria coun t by microscopy (number/high power field)Ordered By: Janie Madsen on 09-04-2024 Bacteria LM.HPF (Urine sed) [#/Area] 0 /[HPF] None Seen [facility] Urine specific gravity measu rementOrdered By: Janie Madsen on 09-04-2024 Specific gravity (U) [Rel density] 1.010 1.002-1.03 0 [facility] Urine urobilinogen measureme ntOrdered By: Janie Madsen on 09-04-2024 Urobilinogen Ql (U) Normal mg/dl Normal [facility] Vitamin B12on 09-04-2024 Cobalamin (Vitamin B12) [Mass/Vol] 690 pg/mL Normal 180-914 [facility] Comment on above: Performed By: #### L 503.6550, L503.0106, L100.9950, L500.2500, L3100.1725 ####[facility] [address] [place], [place], [id number] Vitamin B12 ser/plasOrdered By: Serina Juan on 09-04-2024 Cobalamin (Vitamin B12) [Mass/Vol] 690 pg/mL 180-914 [facility] White blood cell (WBC) count Ordered By: Janie Madsen on 09-04-2024 WBC (Bld) [#/Vol] 15.3 10*3/uL High 4.4-11.0 [facility] Comment on above: Performed By: #### L 500.2500, L100.0100, L503.6005 ####[facility] [address] [place], [address] White blood cell countOrdere d By: Janie Dempseyjennifer on 09-04-2024 White blood cell count 0-5 SEEN /hpf 0-5 [facility] CNPNon 08-31-2024 CNPN Telephone (HEMAWS) REY MEAD ([id number]) 1955 M Date Time Provider Department 08/31/24 SHILPI WARE During your visit today, we recorded the following information about you: Shilpi Ware RN 08/31/2024 3:14 PM Signed PSS: please schedule a f/u OV with Angie Block on 09/05/24 at 11am. 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 Please call patient with update, he will see Angie after Dr. Dunaway appointment on 09/05/24 to discuss next steps. VIPUL Castro Naomi 08/31/2024 3:59 PM Signed This has been scheduled and pt is aware. Estefania Perez Allergies As of Date: 08/31/2024 (No Known Allergies) Date Reviewed: 08/28/2024 Reviewed by: Enriqueta Amado, VIPUL - Fully Assessed Reason for Visit: Future Appointment [256] Prescriptions as of 08/31/2024 - gabapentin (NEURONTIN) 300 mg capsule Take 1 capsule by mouth once daily for 30 days. - acetaminophen (TYLENOL EXTRA STRENGTH) 500 mg tablet Take 1,000 mg by mouth every 6 hours as needed. - insulin 75/25 lispro protamine-lispro units/mL (HUMALOG MIX 75/25 KWIKPEN) 100 unit/mL (75-25) pen Inject 15 Units subcutaneously two times a day with meals. - oxyCODONE IR (ROXICODONE) 5 mg immediate release tablet Take 1-2 tablets by mouth every 6 hours as needed for pain for up to 7 days. FOR PAIN. - predniSONE (DELTASONE) 5 mg tablet Take 15 mg by mouth once daily. take three a day to finish course, Dr Hurd - VITAMIN B COMPLEX-100 ORAL Take by mouth. - fluticasone/umeclidin/vilan ter (TRELEGY ELLIPTA INHALATION) Inhale 1 Puff as instructed once daily. - QFKBMGPYOOT-JXAWQHFAW-LLWYS TER INHALATION Inhale as instructed. - ALBUTEROL INHALATION Inhale 2 Puffs as instructed every 4 hours as needed. - aspirin 81 mg cap Take 81 mg by mouth once daily. - atorvastatin (LIPITOR) 20 mg tablet Take 20 mg by mouth once daily. - albuterol (PROVENTIL) 2.5 mg /3 mL (0.083 %) nebulizer solution Use 2.5 mg via nebulizer every 4 hours as needed. - albuterol HFA (PROVENTIL HFA, VENTOLIN HFA) 90 mcg/actuation inhaler Inhale 1-2 Puffs as instructed every 4 hours as needed. - FARXIGA 5 mg tablet Take 5 mg by mouth once daily. - furosemide (LASIX) 40 mg tablet Take 40 mg by mouth once daily. - lisinopril 2.5 mg tablet Take 2.5 mg by mouth once daily. - LORazepam (ATIVAN) 1 mg tablet Take 1 mg by mouth every 6 hours as needed. - metFORMIN ER (FORTAMET) 500 mg 24 hr tablet Take one tablet by mouth in AM AND two tablets in PM. - metoprolol tartrate, short acting, (LOPRESSOR) 50 mg tablet Take 50 mg by mouth once daily. - PARoxetine (PAXIL) 10 mg tablet Take 10 mg by mouth once daily. - pregabalin (LYRICA) 150 mg capsule Take 150 mg by mouth once daily. - roflumilast (DALIRESP) 250 mcg tablet Take 250 mcg by mouth once daily. - RYBELSUS 14 mg tablet Take 7 mg by mouth once daily. - tamsulosin (FLOMAX) 0.4 mg Take 0.4 mg by mouth once daily. - L.acid/L.casei/B.bif/B.link/ FOS (PROBIOTIC BLEND ORAL) Take 1 capsule by mouth once daily. 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*03/19/2023 Lung mass [R91.8] 04/02/2023 Squamous cell carcinoma of left lung (HCC) [C34*08/28/2024 Encounter Status:Closed by ESTEFANIA PEREZ [facility] ([id number]) 1955 Date Time Provider Department 08/31/24 [facility] During your visit today, we recorded the following information about you: Enriqueta Amado RN 08/31/2024 10:16 AM Signed Patient is asking for a prescription for a walker. Enriqueta Amado RN 08/31/2024 1:[address] Dunaway did a prescription. I will give to patient when he is here for radiation on 09/01. I left a message for patient with this information on his voicemail. Allergies As of Date: 08/31/2024 (No Known Allergies) Date Reviewed: 08/28/2024 Reviewed by: Enriqueta Amado, VIPUL - Fully Assessed Primary Visit Diagnosis:Primary malignant neoplasm of lung metastatic to other site, unspecified laterality (HCC) [C34.90] Order(s):ARTURO ZUNIGA [[id number]] Order #: [id number] Prescriptions as of 08/31/2024 - gabapentin (NEURONTIN) 300 mg capsule Take 1 capsule by mouth once daily for 30 days. - acetaminophen (TYLENOL EXTRA STRENGTH) 500 mg tablet Take 1,000 mg by mouth every 6 hours as needed. - insulin 75/25 lispro protamine-lispro units/mL (HUMALOG MIX 75/25 KWIKPEN) 100 unit/mL (75-25) pen Inject 15 Units subcutaneously two times a day with meals. - oxyCODONE IR (ROXICODONE) 5 mg immediate release tablet Take 1-2 tablets by mouth every 6 hours as needed for pain for up to 7 days. FOR PAIN. - predniSONE (DELTASONE) 5 mg tablet Take 15 mg by mouth once daily. take three a day to finish course, Dr Hurd - VITAMIN B COMPLEX-100 ORAL Take by mouth. - fluticasone/umeclidin/vilan ter (TRELEGY ELLIPTA INHALATION) Inhale 1 Puff as instructed once daily. - UUOXXKAYBQL-XWZLWLCKM-QXEBX TER INHALATION Inhale as instructed. - ALBUTEROL INHALATION Inhale 2 Puffs as instructed every 4 hours as needed. - aspirin 81 mg cap Take 81 mg by mouth once daily. - atorvastatin (LIPITOR) 20 mg tablet Take 20 mg by mouth once daily. - albuterol (PROVENTIL) 2.5 mg /3 mL (0.083 %) nebulizer solution Use 2.5 mg via nebulizer every 4 hours as needed. - albuterol HFA (PROVENTIL HFA, VENTOLIN HFA) 90 mcg/actuation inhaler Inhale 1-2 Puffs as instructed every 4 hours as needed. - FARXIGA 5 mg tablet Take 5 mg by mouth once daily. - furosemide (LASIX) 40 mg tablet Take 40 mg by mouth once daily. - lisinopril 2.5 mg tablet Take 2.5 mg by mouth once daily. - LORazepam (ATIVAN) 1 mg tablet Take 1 mg by mouth every 6 hours as needed. - metFORMIN ER (FORTAMET) 500 mg 24 hr tablet Take one tablet by mouth in AM AND two tablets in PM. - metoprolol tartrate, short acting, (LOPRESSOR) 50 mg tablet Take 50 mg by mouth once daily. - PARoxetine (PAXIL) 10 mg tablet Take 10 mg by mouth once daily. - pregabalin (LYRICA) 150 mg capsule Take 150 mg by mouth once daily. - roflumilast (DALIRESP) 250 mcg tablet Take 250 mcg by mouth once daily. - RYBELSUS 14 mg tablet Take 7 mg by mouth once daily. - tamsulosin (FLOMAX) 0.4 mg Take 0.4 mg by mouth once daily. - L.acid/L.casei/B.bif/B.link/ FOS (PROBIOTIC BLEND ORAL) Take 1 capsule by mouth once daily. 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*03/19/2023 Lung mass [R91.8] 04/02/2023 Squamous cell carcinoma of left lung (HCC) [C34*08/28/2024 Encounter Status:Closed by ENRIQUETA AMADO on 08/31/24 [facility] CNNURSEon 08-30-2024 [facility] ([facility] REY MEAD ([id number]) 1955 M Date Time Provider Department 08/30/24 12:45 [facility] During your visit today, we recorded the following information about you: Jacy Palomino, RN 08/30/2024 1:27 PM Signed Radiation Therapy - Patient Education Note PATIENT NAME: Rey Mead PATIENT August 30, 2024 [facility] FACILITY/LOCATION: [place] READINESS TO LEARN Cognitive Ability: Alert and oriented Motivation to learn: Interested Family Support: Unable to assess - Family not present Instruction provide to: Patient Patient learns best by: Individual Instruction Written Instruction - Hand-outs Verbal Instruction Factors effecting learning: None Physical limitations effecting learning: Pain LEARNING RESPONSE Diagnosis: Pt simulated today for radiation therapy to spine T spine. Education Topic/Teaching Points: Radiation therapy, Side effects, OTV, and Transportation: Method of instruction: Teach Back skin care Individual instruction Written instruction/Handouts Verbal instruction Patient /Family response: Patient verbalized understanding of radiation treatments, side effects, OTV, and transportation. Follow-up plan: Complete - No need for follow-up Supplemental material: Informational handouts on Esophagitis/Mucositis, Fatigue, and Skin changes. Referral (recommendation): None, Pt denied need for social work, van service, and sports administrator. 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 - acetaminophen (TYLENOL EXTRA STRENGTH) 500 mg tablet Take 1,000 mg by mouth every 6 hours as needed. - insulin 75/25 lispro protamine-lispro units/mL (HUMALOG MIX 75/25 KWIKPEN) 100 unit/mL (75-25) pen Inject 15 Units subcutaneously two times a day with meals. - oxyCODONE IR (ROXICODONE) 5 mg immediate release tablet Take 1-2 tablets by mouth every 6 hours as needed for pain for up to 7 days. FOR PAIN. - predniSONE (DELTASONE) 5 mg tablet Take 15 mg by mouth once daily. take three a day to finish course, Dr Hurd - VITAMIN B COMPLEX-100 ORAL Take by mouth. - fluticasone/umeclidin/vilan ter (TRELEGY ELLIPTA INHALATION) Inhale 1 Puff as instructed once daily. - IHDFUJACVHL-CNLCFAKNR-VKXVI TER INHALATION Inhale as instructed. - ALBUTEROL INHALATION Inhale 2 Puffs as instructed every 4 hours as needed. - aspirin 81 mg cap Take 81 mg by mouth once daily. - atorvastatin (LIPITOR) 20 mg tablet Take 20 mg by mouth once daily. - albuterol (PROVENTIL) 2.5 mg /3 mL (0.083 %) nebulizer solution Use 2.5 mg via nebulizer every 4 hours as needed. - albuterol HFA (PROVENTIL HFA, VENTOLIN HFA) 90 mcg/actuation inhaler Inhale 1-2 Puffs as instructed every 4 hours as needed. - FARXIGA 5 mg tablet Take 5 mg by mouth once daily. - furosemide (LASIX) 40 mg tablet Take 40 mg by mouth once daily. - lisinopril 2.5 mg tablet Take 2.5 mg by mouth once daily. - LORazepam (ATIVAN) 1 mg tablet Take 1 mg by mouth every 6 hours as needed. - metFORMIN ER (FORTAMET) 500 mg 24 hr tablet Take one tablet by mouth in AM AND two tablets in PM. - metoprolol tartrate, short acting, (LOPRESSOR) 50 mg tablet Take 50 mg by mouth once daily. - PARoxetine (PAXIL) 10 mg tablet Take 10 mg by mouth once daily. - pregabalin (LYRICA) 150 mg capsule Take 150 mg by mouth once daily. - roflumilast (DALIRESP) 250 mcg tablet Take 250 mcg by mouth once daily. - RYBELSUS 14 mg tablet Take 7 mg by mouth once daily. - tamsulosin (FLOMAX) 0.4 mg Take 0.4 mg by mouth once daily. - L.acid/L.casei/B.bif/B.link/ FOS (PROBIOTIC BLEND ORAL) Take 1 capsule by mouth once daily. 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*03/19/2023 Lung mass [R91.8] 04/02/2023 Squamous cell carcinoma of left lung (HCC) [C34*08/28/2024 Encounter Status:Closed by JACY PALOMINO on 08/30/24 [facility] SABIHAOViqra 08-28-2024 CNOV Office Visit (RADTWS ) REY MEAD ([id number]) 1955 M Date Time Provider Department 08/28/24 1:00 PM JONH HOBSON During your visit today, we recorded the following information about you: Temperature Pulse Respiration Blood pressure 97.4 degrees 77/minute 15/minute 90/48 Jonh Hobson MD 08/28/2024 2:18 PM Signed Radiation Oncology - New Patient/Consult Note PATIENT NAME: Rey Mead PATIENT REQUESTING PROVIDER: Wolfgang Duncan MD. 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 HPI: 69 year old male who presents with above diagnosis, for an opinion regarding the role of radiation therapy in the management of the patient's disease. Final recommendations will be communicated back to the requesting physician by way of the shared medical record, or letter to requesting physician via US mail. Mr. 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 He also has a history of COPD. On routine PET CT scan during 02/04, he was found to have a 3.47 cm hypermetabolic nodule of the left upper lobe. Serial CT scans showed interval increase in size to 4.8 x 3.7 cm, and bronchoscopy on 04/05/2023 showed extrinsic compression of the apical posterior segment of the left upper lobe. Core biopsy showed keratinizing squamous cell carcinoma. EBUS and TBNA of station 7 node and 11L node were negative. Mr. Mead was considered medically inoperable, due to his poor lung function which showed an FEV1 of 50% of predicted and a DLCO of 61% of predicted. He therefore underwent SBRT directed to the FRANCK mass, completed on 05/21/2023. Mr. Mead tolerated treatment well and follow-up CT chest on 08/24/23 showed decreased size of a spiculated mass in the posterior left upper lobe and decreased size of adjacent irregular nodular opacities. There is a new 8 mm nodule in the lateral left upper lobe. CT chest on 11/24/23 showed, 1. Increasing consolidation in the posterior lateral left upper lobe adjacent to a spiculated nodule, possibly due to radiation therapy. 2. Unchanged size of a spiculated nodule in the posterior left upper lobe 3. Previously described 8 mm nodule in the lateral left upper lobe is not visualized on the current study CT chest on 02/18/2024 was compared to the prior study of 11/24/2023, and showed: Progression LEFT upper lobe airspace disease probably due to radiation pneumonitis/fibrosis. No definite change in size of LEFT upper lobe nodule, which is virtually obscured by the airspace disease. Stable borderline enlarged middle mediastinal lymph nodes. Mr. Mead was seen by Dr. Duncan on 03/07/2024 and noted intermittent mild, dull, achy, bilateral back pain radiating to the front. This symptom was reasonably controlled with Neurontin. Adjuvant chemotherapy was not recommended at that time due to the judgment that the risks outweighed the benefits of same. CT chest with contrast on 07/06/2024 was compared to prior studies of 02/18/2024 and 11/24/2023, and showed: Lung parenchyma and airways: Prior right upper lobectomy Large area of left upper lobe traction bronchiectasis and consolidation.. The area of consolidation in this region has increased. Central soft tissue density is approximately 4.9 x 3.8 cm. Image 76 series 5. Difficult to measure due to adjacent consolidative opacity. Appears significantly increased over prior 2 studies, however. Bones and soft tissues: No destructive bone lesion. Chest wall is unremarkable. Mr. Mead was again seen by Dr. Duncan on 07/13/2024 and again noted mild, dull, achy, intermittent bilateral back pain radiating to the front. He reports that since then, his back pain has markedly increased and is scored at 8/10, in spite of using oxycodone IR 5 mg 1-2 p.o. every 6 hours as well as Neurontin. He localizes his pain to his mid thoracic spine area. He denies lower extremity neurologic symptoms, or new bowel or bladder complaints. PET CT scan on 08/01/2024 showed: PRIMARY: Large hypermetabolic left lung upper lobe mass with invasion of the left lateral chest wall/rib cage. MITCH STATUS: Hypermetabolic mediastinal, left axillary lymph nodes likely metastatic. METASTASES: Findings suggestive of right pleural, left adrenal and osseous metastases. Hypermetabolic right pleural nodule. Hypermetabolic left adrenal nodule. Hypermetabolic osseous lesion in the thoracic spine at T2 level. Hypermetabolic Right posterior paraspinal mass at the level of T6/ T7 with lytic changes in the adjacent transverse pr (more content not included)... Normal [facility] REFERRAL FOR ADDITIONAL BIOM ARKER AND MOLECULAR TESTINGon 08-28-2024 REFERRAL FOR ADDITIONAL BIOMARKER AND MOLECULAR TESTING Normal [facility] Comment on above: Order Comment: Speci men Type: TISSUE SPECIMENOrdering Facility: [facility] Address: [address] [place], [place] [address] Result Comment: Requ est has been received for evaluation and the results will be issued separately. Performed By: #### A PMOL ####[facility] [id number] [place] CNPNon 08-24-2024 CNPN Telephone (RADTWS) REY MEAD ([id number]) 1955 M Date Time Provider Department 08/24/24 JONH HOBSON RADTWS During your visit today, we recorded the following information about you: Enriqueta Amado RN 08/24/2024 2:05 PM Addendum Please contact patient and reschedule his radiation consultation from 08/[address] Dunaway to tomorrow with Dr Hobson per request of Dr Duncan for increased pain. If unable to reach patient please try emergency contact. Thanks! Shilpi Ware RN 08/25/2024 2:29 PM Signed See other phone note. Keiry Ware RN Allergies As of Date: 08/24/2024 (No Known Allergies) Date Reviewed: 08/21/2024 Reviewed by: Ron Bedoya RN - Fully Assessed Reason for Visit: Appointment [186] Prescriptions as of 08/25/2024 - oxyCODONE IR (ROXICODONE) 5 mg immediate release tablet Take 1-2 tablets by mouth every 6 hours as needed for pain for up to 7 days. FOR PAIN. - predniSONE (DELTASONE) 5 mg tablet Take 15 mg by mouth once daily. take three a day to finish course, Dr Hurd - gabapentin (NEURONTIN) 300 mg capsule Take 1 capsule by mouth once daily for 90 days. - VITAMIN B COMPLEX-100 ORAL Take by mouth. - fluticasone/umeclidin/vilan ter (TRELEGY ELLIPTA INHALATION) Inhale 1 Puff as instructed once daily. - NVFTIJJTZMF-HLTNPVYDW-AULJS TER INHALATION Inhale as instructed. - ALBUTEROL INHALATION Inhale 2 Puffs as instructed every 4 hours as needed. - aspirin 81 mg cap Take 81 mg by mouth once daily. - atorvastatin (LIPITOR) 20 mg tablet Take 20 mg by mouth once daily. - albuterol (PROVENTIL) 2.5 mg /3 mL (0.083 %) nebulizer solution Use 2.5 mg via nebulizer every 4 hours as needed. - albuterol HFA (PROVENTIL HFA, VENTOLIN HFA) 90 mcg/actuation inhaler Inhale 1-2 Puffs as instructed every 4 hours as needed. - FARXIGA 5 mg tablet Take 5 mg by mouth once daily. - furosemide (LASIX) 40 mg tablet Take 40 mg by mouth once daily. - lisinopril 2.5 mg tablet Take 2.5 mg by mouth once daily. - LORazepam (ATIVAN) 1 mg tablet Take 1 mg by mouth every 6 hours as needed. - metFORMIN ER (FORTAMET) 500 mg 24 hr tablet Take one tablet by mouth in AM AND two tablets in PM. - metoprolol tartrate, short acting, (LOPRESSOR) 50 mg tablet Take 50 mg by mouth once daily. - PARoxetine (PAXIL) 10 mg tablet Take 10 mg by mouth once daily. - pregabalin (LYRICA) 150 mg capsule Take 150 mg by mouth once daily. - roflumilast (DALIRESP) 250 mcg tablet Take 250 mcg by mouth once daily. - RYBELSUS 14 mg tablet Take 7 mg by mouth once daily. - tamsulosin (FLOMAX) 0.4 mg Take 0.4 mg by mouth once daily. - L.acid/L.casei/B.bif/B.link/ FOS (PROBIOTIC BLEND ORAL) Take 1 capsule by mouth once daily. 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 FALL SCREENING: Has the patient had 2 falls in the last year or 1 fall with injury or currently using an Ambulatory Assistive Device (Walker, Cane, Wheelchair, Crutches, etc.)? No PATIENT GENDER DATA: Assigned male at PATIENT RELEVANT IMPLANT DATA REVIEWED: Yes PATIENT PRESENTS WITH AN IMPLANTABLE OR ATTACHED ANIMAL RESEARCHER: No RADIOLOGY DEPARTMENT: Biopsy PERIPHERAL IV DATA: Not applicable SIGNED BY: MIKHAIL MaciasOLOGIST August 21, 2024 2:57 PM [facility] CBC W Auto Differential pane l (Bld)on 08-21-2024 Basophils (Bld) [#/Vol] NINF [facility] Basophils/100 WBC (Bld) 0.1 % [facility] Differential cell count method Nom (Bld) Auto [facility] Eosinophils (Bld) [#/Vol] [facility] Eosinophils/100 WBC (Bld) 0.1 % [facility] Erythrocyte distribution width (RBC) [Ratio] 17.7 % High 11.5 - 15.0 % [facility] Hematocrit (Bld) [Volume fraction] 31.5 % Low 39.0 - 51.0 % [facility] Hemoglobin (Bld) [Mass/Vol] 9.7 g/dL Low 13.0 - 17.0 g/dL [facility] Immature granulocytes (Bld) [#/Vol] 0.2 10*3/uL High [facility] Immature granulocytes/100 WBC (Bld) 1.3 % [facility] Interpretation and review of laboratory results Abnormal [facility] Lymphocytes (Bld) [#/Vol] 1.56 10*3/uL [facility] Lymphocytes/100 WBC (Bld) 9.9 % [facility] MCH (RBC) [Entitic mass] 27.4 pg 26.0 - 34.0 pg [facility] MCHC (RBC) [Mass/Vol] 30.8 g/dL 30.5 - 36.0 g/dL [facility] MCV (RBC) [Entitic vol] 89 fL 80.0 - 100.0 fL [facility] Monocytes (Bld) [#/Vol] 0.81 10*3/uL [facility] Monocytes/100 WBC (Bld) 5.2 % [facility] Neutrophils (Bld) [#/Vol] 13.09 10*3/uL High [facility] Neutrophils/100 WBC (Bld) 83.4 % [facility] Nucleated RBC (Bld) [#/Vol] [facility] Nucleated RBC/100 WBC (Bld) [Ratio] 0 % /100 WBC [facility] Platelet mean volume (Bld) [Entitic vol] 8.6 fL Low 9.0 - 12.7 fL [facility] Platelets (Bld) [#/Vol] 267 10*3/uL [facility] RBC (Bld) [#/Vol] 3.54 10*6/uL Low 4.20 - 6.00 m/uL [facility] WBC (Bld) [#/Vol] 15.69 10*3/uL High [facility] Basophils (Bld) [#/Vol] 10*3/uL Normal <0.11 [facility] Comment on above: Order Comment: Speci men Type: BLOOD SPECIMEN [facility]: [facility] Address: [address] [place] [address] Performed By: #### 5 7021-8 #### [facility] CLIA [id number] [address] Basophils/100 WBC (Bld) 0.1 % Normal [facility] Comment on above: Order Comment: Speci men Type: BLOOD SPECIMEN Ordering Facility: [facility] Address: [address] [place] [address] Performed By: #### 5 7021-8 #### [facility] CLIA [id number] [address] Differential cell count method Nom (Bld) Auto Normal [facility] Comment on above: Order Comment: Speci men Type: BLOOD SPECIMEN [facility]ing [facility]: [facility] Address: [address] [place] [address] Performed By: #### 5 7021-8 #### [facility] CLIA [id number] [address] [place] [address] [place] Eosinophils (Bld) [#/Vol] 10*3/uL Normal <0.46 [facility] Comment on above: Order Comment: Speci men Type: BLOOD SPECIMEN [facility]: [facility] Address: [address] [place] [address] Performed By: #### 5 7021-8 #### [facility] CLIA [id number] [address] Eosinophils/100 WBC (Bld) 0.1 % Normal [facility] Comment on above: Order Comment: Speci men Type: BLOOD SPECIMEN [facility]: [facility] Address: [address] [place] [address] Performed By: #### 5 7021-8 #### [facility] CLIA [id number] [address] Erythrocyte distribution width (RBC) [Ratio] 17.7 % High 11.5-15.0 [facility] Comment on above: Order Comment: Speci men Type: BLOOD SPECIMEN [facility]ing [facility]: [facility] Address: [facility] [place] [address] Performed By: #### 5 7021-8 #### [facility] CLIA [id number] [address] [place] Hematocrit (Bld) [Volume fraction] 31.5 % Low 39.0-51.0 [facility] Comment on above: Order Comment: Speci men Type: BLOOD SPECIMEN Ordering Facility: [facility] Address: [address] [place] [address] Performed By: #### 5 7021-8 #### [facility] CLIA [id number] [address] [place] Hemoglobin (Bld) [Mass/Vol] 9.7 g/dL Low 13.0-17.0 [facility] Comment on above: Order Comment: Speci men Type: BLOOD SPECIMEN [facility]: [facility] Address: [address] [place] [address] Performed By: #### 5 7021-8 #### [facility] CLIA [id number] [address] [place] [address] [place] Immature granulocytes (Bld) [#/Vol] 0.20 10*3/uL High <0.10 [facility] Comment on above: Order Comment: Speci men Type: BLOOD SPECIMEN [facility]ing [facility]: [facility] Address: [address] [place] [address] Performed By: #### 5 7021-8 #### [facility] CLIA [id number] [address] [place] Immature granulocytes/100 WBC (Bld) 1.3 % Normal [facility] Comment on above: Order Comment: Speci men Type: BLOOD SPECIMEN [facility]: [facility] Address: [address] [place] [address] Performed By: #### 5 7021-8 #### [facility] CLIA [id number] [address] [place] Lymphocytes (Bld) [#/Vol] 1.56 10*3/uL Normal 1.00-4.00 [facility] Comment on above: Order Comment: Speci men Type: BLOOD SPECIMEN [facility]: [facility] Address: [address] [place] [address] Performed By: #### 5 7021-8 #### [facility] CLIA [id number] [address] Lymphocytes/100 WBC (Bld) 9.9 % Normal [facility] Comment on above: Order Comment: Speci men Type: BLOOD SPECIMEN Ordering [facility]: [facility] Address: [address] [place] [address] Performed By: #### 5 7021-8 #### [facility] CLIA [id number] [address] MCH (RBC) [Entitic mass] 27.4 pg Normal 26.0-34.0 [facility] Comment on above: Order Comment: Speci men Type: BLOOD SPECIMEN Ordering [facility]: [facility] Address: [address] [place] [address] Performed By: #### 5 7021-8 #### [facility] CLIA [id number] [address] MCHC (RBC) [Mass/Vol] 30.8 g/dL Normal 30.5-36.0 [facility] Comment on above: Order Comment: Speci men Type: BLOOD SPECIMEN Ordering Facility: [facility] Address: [address] [place] [address] Performed By: #### 5 7021-8 #### [facility] CLIA [id number] [address] MCV (RBC) [Entitic vol] 89.0 fL Normal 80.0-100.0 [facility] Comment on above: Order Comment: Speci men Type: BLOOD SPECIMEN [facility] Address: [address] [place] [address] Performed By: #### 5 7021-8 #### [facility] CLIA [id number] [address] Monocytes (Bld) [#/Vol] 0.81 10*3/uL Normal <0.87 [facility] Comment on above: Order Comment: Speci men Type: BLOOD SPECIMEN [facility] Address: [address] [place] [address] Performed By: #### 5 7021-8 #### [facility] CLIA [id number] [address] [place] [address] [place] Monocytes/100 WBC (Bld) 5.2 % Normal [facility] Comment on above: Order Comment: Speci men Type: BLOOD SPECIMEN [facility] Address: [address] [place] [address] Performed By: #### 5 7021-8 #### [facility] CLIA [id number] [address] [place] [address] [place] Neutrophils (Bld) [#/Vol] 13.09 10*3/uL High 1.45-7.50 [facility] Comment on above: Order Comment: Speci men Type: BLOOD SPECIMEN [facility] Address: [address] [place] [address] Performed By: #### 5 7021-8 #### [facility] CLIA [id number] [address] [place] [address] [place] Neutrophils/100 WBC (Bld) 83.4 % Normal [facility] Comment on above: Order Comment: Speci men Type: BLOOD SPECIMEN [facility] Address: [address] [place] [address] Performed By: #### 5 7021-8 #### [facility] CLIA [id number] [address] [place] [address] [place] Nucleated RBC (Bld) [#/Vol] 10*3/uL Normal <0.01 [facility] Comment on above: Order Comment: Speci men Type: BLOOD SPECIMEN [facility] Address: [address] [place] [address] Performed By: #### 5 7021-8 #### [facility] CLIA [id number] [address] [place] Nucleated RBC/100 WBC (Bld) [Ratio] 0.0 /100 WBC Normal [facility] Comment on above: Order Comment: Speci men Type: BLOOD SPECIMEN [facility] Address: [address] [place] [address] Performed By: #### 5 7021-8 #### [facility] CLIA [id number] [address] [place] Platelet mean volume (Bld) [Entitic vol] 8.6 fL Low 9.0-12.7 [facility] Comment on above: Order Comment: Speci men Type: BLOOD SPECIMEN [facility] Address: [address] [place] [address] Performed By: #### 5 7021-8 #### [facility] CLIA [id number] [address] [place] Platelets (Bld) [#/Vol] 267 10*3/uL Normal 150-400 [facility] Comment on above: Order Comment: Speci men Type: BLOOD SPECIMEN [facility] Address: [address] [place] [address] Performed By: #### 5 7021-8 #### [facility] CLIA [id number] [address] [place] [address] [place] RBC (Bld) [#/Vol] 3.54 10*6/uL Low 4.20-6.00 [facility] Comment on above: Order Comment: Speci men Type: BLOOD SPECIMEN [facility] Address: [address] [place] [address] Performed By: #### 5 7021-8 #### [facility] CLIA [id number] [address] [place] WBC (Bld) [#/Vol] 15.69 10*3/uL High 3.70-11.00 [facility] Comment on above: Order Comment: Speci men Type: BLOOD SPECIMEN [facility] Address: [address] [place] [address] Performed By: #### 5 7021-8 #### [facility] CLIA [id number] [address] [place] CT BIOPSY SOFT TISS MASS/MUS Laura 08-21-2024 CT BIOPSY SOFT TISS MASS/MUSCLE * * *Final Report* * * DATE OF EXAM: Aug 21 2024 2:57PM [facility] 2012 - CT BIOPSY SOFT TISS MASS/MUSCLE / PROCEDURE REASON: Established Patient * * * * Physician Interpretation * * * * CT BIOPSY SOFT TISS MASS/MUSCLE INDICATION: Squamous cell carcinoma of left lung (HCC) Paraspinal mass CT Radiation dose: Integrated Dose-length product (DLP) for this visit = 364 mGy*cm. CT Dose Reduction Employed: Automated exposure control(AEC) and iterative recon PROCEDURE: Informed consent was obtained for this procedure. Details of informed consent can be found under the consent tab. The patient was placed in the left lateral decubitus position on the CT table. A right paraspinal mass in the midthoracic region was localized. The mass shows destruction of the adjacent lamina and spinous process. Using aseptic technique, 3 mL 1% lidocaine for local anesthesia and CT guidance, a 17-gauge guide needle was entered into the right paraspinal mass from a posterior approach. Subsequently, 2, 18-gauge core biopsies were obtained in a coaxial manner. The patient tolerated the procedure well and left the department in stable condition. No complications were encountered. IMPRESSION: Right paraspinal soft tissue mass core biopsy Event [facility] Transcribe Date/Time: Aug 21 2024 4:00P Dictated by : MARCO GAY MD This examination was interpreted and the report reviewed and electronically signed by: MARCO GAY MD on Aug 21 2024 4:03PM EST [id number] Normal [facility] NTRK NEXT GENERATION SEQUENC [facility] 08-21-2024 NTRK NEXT GENERATION SEQUENCING NTRK NGS Panel [facility] Comment on above: Order Comment: Speci men Type: TISSUE SPECIMEN [facility] Address: [address] [place] [address] Result Comment: Laboratory Accession Number: [id number] Case #: [id number] Block #: A1 Sample Type: FFPET % Tumor: 40 Result: Not Detected No NTRK1, NTRK2 and NTRK3 gene fusions were detected in the submitted specimen. Methodology: The NTRK Fusion Analysis by Next Generation Sequencing is a laboratory developed test (LDT) based on anchored multiplex polymerase chain reaction (PCR). Total nucleic acid extracted from the specimen was subjected to nested multiplex PCR. The amplicons were subjected to massively parallel sequencing with 150x2 cycle pair-end reads. A custom informatics pipline (v6.2.7), evaluating three gene targets (see Limitations below for interrogated regions), was used for read alignment (genome build hg19/GRCh37), fusion gene identification (if any), and annotation. Reporting criteria of a gene fusion are (i) a minimum of five unique reads spanning the fusion junction, (ii) at least three unique start sites are present among these unique reads, and (iii) at least 10% of reads surrounding the break point support the fusion event. Fusion genes that do not meet the above criteria may be reported if they have been previously documented. Limitations: Based on validation, this LDT delivered greater than 900,000 total reads. The test demonstrated 94.1% sensitivity and 75.0% specificity in fusion gene identification. The lower limit of detection is approximately 10% of tumor cells present in the submitted specimen. Fusions below 10% of tumor proportion may be reported at the discretion of the molecular pathology professional staff if the technical quality of the sequencing is sufficient at that location and the call is unequivocal. Reported variants include known disease associated gene fusions and unclear fusion variants with little or no literature support. A sample may be reported as quality not sufficient when the following quality metric circumstances are not met: (i) the number of unique RNA reads is <20% of total reads; (ii) the average number of RNA reads with unique start sites derived from the control gene-specific primer 2 (GSP2) is <10. Due to the labile nature of this LDT's analyte, RNA, false negative results may not be excluded. Fusions resulting from complex rearrangements may not be detected. Structural variants that do not lead to a chimeric fusion transcript will not be detected. This test is not designed to detect single nucleotide variants, insertions, deletions, copy number changes, and RNA transcript isoforms. This test does not distinguish between somatic and inherited variants. The following genes and corresponding exons are interrogated in this LDT: Gene Transcript Exon(s) Covered NTRK1 NM_002529 2,4,6,8,10-14 NTRK2 NM_006180 5,7,9,11-18 NTRK3 [id number] 15 NTRK3 NM_002530 4,7,10,12-16 Disclaimer: This test was developed and its performance characteristics determined by [facility]'s Pathology and Laboratory Medicine Department. It has not been cleared or approved by the FDA. [facility]'s Pathology and Laboratory Medicine Department is regulated under CLIA as certified to perform high-complexity testing. This test is used for clinical purposes. It should not be regarded as investigational or for research. Test performed at [facility], [address] [place] [address]. CLIA Number: [id number] Interpretation performed by Nayely Day MD, PhD Performed By: #### N TRK #### [facility] CLIA [id number] [address] [place] [address] [place] [address] [place] PT panel Coag (PPP)on 2024 INR Coag (PPP) [Relative time] 1.1 {INR} 0.9 - 1.3 [facility] Comment on above: Vitamin K Antagonist (VKA) Therapeutic Range: INR 2 to 3 (Target INR of 2.5) Note: For patients treated with VKA drugs, such as warfarin, the [place] [employer] 2012 Guideline recommends a therapeutic INR range of 2 to 3 (target INR of 2.5). This recommendation includes high-risk patients with antiphospholipid syndrome with previous arterial or venous thromboembolism, current-generation mechanical or bioprosthetic aortic heart valve replacement. Note: Patients with mechanical aortic valve replacement and additional risk factors for thromboembolic events (atrial fibrillation, previous thromboembolism, LV dysfunction, hypercoagulable conditions) or an older generation mechanical AVR (i.e., ball in-Cage) or any mechanical MVR should have a INR therapeutic range of 2.5 to 3.5 (target INR of 3). Nilesh GH, et al. Chest 2012, 141:7S-47S Taj RA, et al. JACC 2017, 70: 252-289 Interpretation and review of laboratory results Normal [facility] PT Coag (PPP) [Time] 12 s [facility] INR Coag (PPP) [Relative time] 1.1 {INR} Normal 0.9-1.3 [facility] Comment on above: Order Comment: Speci men Type: BLOOD SPECIMEN Ordering Facility: [facility] Address: [address] [place] [address], [place] [address] Result Comment: Liya min K Antagonist (VKA) Therapeutic Range: INR 2 to 3 (Target INR of 2.5) Note: For patients treated with VKA drugs, such as warfarin, the [place] [employer] 2012 Guideline recommends a therapeutic INR range of 2 to 3 (target INR of 2.5). This recommendation includes high-risk patients with antiphospholipid syndrome with previous arterial or venous thromboembolism, current-generation mechanical or bioprosthetic aortic heart valve replacement. Note: Patients with mechanical aortic valve replacement and additional risk factors for thromboembolic events (atrial fibrillation, previous thromboembolism, LV dysfunction, hypercoagulable conditions) or an older generation mechanical AVR (i.e., ball in-Cage) or any mechanical MVR should have a INR therapeutic range of 2.5 to 3.5 (target INR of 3). Nilesh PATINO, et al. Chest 2012, 141:7S-47S Taj MENON et al. [facility] 2017, 70: 252-289 Performed By: #### 3 4528-0 #### [facility] CLIA [id number] [address] [place] [address] [place] PT Coag (PPP) [Time] 12.0 s Normal 9.7-13.0 [facility] Comment on above: Order Comment: Tata jean Type: BLOOD SPECIMEN Ordering Facility: [facility] Address: [address] [place] [address] Performed By: #### 3 4528-0 #### [facility] CLIA [id number] [address] [place] [address] [place] Pathology biopsy report Jhonatan (Tiss)on 08-21-2024 AP DISCLAIMER Normal [facility] Comment on above: Order Comment: Tata jean Type: TISSUE SPECIMEN Ordering Facility: [facility] Address: [address] [place] [address] Result Comment: Laurita Hampton Test (LDT) Disclaimer: Performance characteristics of immunohistochemical, immunofluorescent, and chromogenic in-situ hybridization tests have been determined by the performing laboratory within [facility]'s Romain Carmen [facility] Pathology and Laboratory Medicine Department ([facility], [facility], [facility], [facility], [facility], or [facility]) in a manner consistent with CLIA requirements. One or more of these tests may not have been cleared or approved by the FDA. [facility] is regulated under CLIA as qualified to perform high-complexity testing. These tests are used for clinical purposes. These should not be regarded as investigational or for research. Positive and negative controls stain appropriately. Performed By: #### 6 6121-5 #### [facility] CLIA [id number] [address] [place] [address], [address] [place] [address] [place] [facility] CLIA [id number] [address] [place] [address] [place] CASE REPORT Normal [facility] Comment on above: Order Comment: Speci men Type: TISSUE SPECIMEN Ordering Facility: [facility] Address: [address] [place] [address] Result Comment: [facility] Pathology Report Case: [id number] Authorizing Provider: Marco Gay MD, Collected: 08/21/2024 02:43 PM Ordering Location: [facility] Received: 08/21/2024 02:58 PM Pathologist: Eliseo Esquivel MD Specimen: Soft Tissue, Mass, Biopsy Performed By: #### 6 6121-5 #### [facility] CLIA [id number] [address] [place] [address] [place] [facility] CLIA [id number] [address] [place] [address] [place] CLINICAL HISTORY Lung cancer. Right paraspinal soft tissue mass(FDG avid) in thoracic region Normal [facility] Comment on above: Order Comment: Speci men Type: TISSUE SPECIMEN Ordering Facility: [facility] Address: [address] [place] [address] Performed By: #### 6 6121-5 #### [facility] CLIA [id number] [address] [place] [address], [address] [place] [address] [place] [facility] CLIA [id number] [address] [place] [address] [place] FINAL DIAGNOSIS Normal [facility] Comment on above: Order Comment: Speci men Type: TISSUE SPECIMEN Ordering Facility: [facility] Address: [address] [place] [address] Result Comment: A. S oft tissue, right paraspinal region, core needle biopsy: - Metastatic squamous cell carcinoma. at 0954 EDT Performed By: #### 6 6121-5 #### [facility] CLIA [id number] [address] [place] [address] [address], [address] [place] [address] [place] [facility] CLIA [id number] [address] [place] [address] [place] FINAL PERFORMING LAB [facility] Comment on above: Order Comment: Speci men Type: TISSUE SPECIMEN Ordering Facility: [facility] Address: [address] [place] [address] Result Comment: Diag nostic interpretation performed at: [facility], [address] [place] [address], [address] [place] [address] CLIA# [id number] Management Scientist: Eliseo Esquivel MD Performed By: #### 6 6121-5 #### [facility] CLIA [id number] [address] [place] [address] [address], [address] [place] [address] [place] [facility] CLIA [id number] [address] [place] [address] OF [place] GROSS DESCRIPTION [facility] Comment on above: Order Comment: Speci men Type: TISSUE SPECIMEN Ordering Facility: [facility] Address: [address] [place] [address] Result Comment: A. S oft Tissue, Mass, Biopsy Received in formalin are multiple segments of cylindrical tissue aggregating to 2.2 x 0.1 x 0.1 cm, stein and of a soft and friable consistency. Totally submitted in one cassette. BC August 22, 2024 12:16 PM Gross examination performed at [facility], [address] [place] [address] Performed By: #### 6 6121-5 #### [facility] CLIA [id number] [address] [facility] [address] [place] [facility] CLIA [id number] [address] [place] [address] [facility] TARGETED ONCOLOGY PANEL NEXT GENERATION SEQUENCING OTHERon 08-21-2024 TARGETED ONCOLOGY PANEL NEXT GENERATION SEQUENCING OTHER [facility] Comment on above: Order Comment: Speci men Type: TISSUE SPECIMEN Ordering Facility: [facility] Address: [address] [place] [address] Result Comment: [facility] Targeted Oncology Panel Laboratory Accession Number: [id number] Case #: [id number] Block #: A1 Sample Type: FFPET % Tumor: 40 CASE SUMMARY: TP53 C176Y is detected. *Unless otherwise stated, all assay hotspot regions have been tested (see EVALUATED GENES below) and only positive genes are reported. RESULTS: Single Nucleotide Variants/Indels: TP53\X09\p.Wbp571Iyj \X09\NM_000546.5:c.527G>A \X09\38.7% VAF, Depth 1293x, Ex5 Copy Number Gains: None detected RNA Fusions and Aberrant Transcripts: None detected VARIANT INTERPRETATIONS: TP53 p.Ilx957Vss NM_000546.5:c.527G>A The likely clinically significant C176Y variant in TP53 was detected in this specimen. TP53 encodes for tumor protein p53, a staff engineer factor involved in DNA damage pathway, cell cycle arrest and apoptosis (PMID: 88812811). Germline mutations occur in cancer predisposition syndrome and Li-Fraumeni syndrome (PMID: 77532966). Somatic missense and loss of function mutations are common in every tumor type and some impart resistance to chemotherapy (PMID: 8353821). Variants of uncertain significance detected: None detected Regions with coverage <100x: None METHODOLOGY: Extracted nucleic acid from the specimen, both DNA and RNA, were subjected to separate targeted amplification reactions, using AmpliSeq custom primers designed by [employer] ([employer], [place], [place]). Hotspots and selected fusions in gene regions listed below were sequenced using Illumina ([place], [place]) 2x150 paired-end cycle chemistry. A customized bioinformatics analytical platform was used for read alignment (Genome Build GRCh37/hg19), variant identification and annotation. Single nucleotide variants (SNVs), insertion, deletion (indels) and copy number gain variants are detected by DNA sequencing. Select fusions and aberrant transcripts (EGFR vIII and MET exon 14 skipping transcripts) are detected by RNA sequencing. Variants are classified according to established guidelines (1). Reported results include variants of strong or potential clinical significance and variants of unclear clinical significance. Benign population polymorphisms are not included in the report. If relevant, standard of care therapies for various solid tumor types/indications (FDA-approved biomarker or standard biomarker recommended by a professional society) are provided in the variant interpretation section, as well as markers resistant to FDA-approved drugs. This information is not to be considered a recommendation for therapy. Based on validation, the DNA testing delivered an average of >500x coverage and >99% of targeted regions showed over 100x coverage. A minimum coverage depth of 100 reads is required across the entire region of interest; a list of low coverage areas is included in the report as applicable. The test demonstrated 100% sensitivity and 100% specificity in identifying SNVs, indels and copy number gains. The lower limit of detection of this assay is approximately 5% variant allele fraction (VAF) for SNV/indels and 6 copies or greater for copy number gains. Variants below these thresholds may be reported at the discretion of the molecular pathology professional staff if the technical quality of the sequencing is sufficient at that location and the call is unequivocal. Based on validation, the RNA fusion testing averaged >150,000 total reads. The test demonstrated 93% sensitivity and 100% specificity in gene fusion identification compared to NGS sequencing, and 69% sensitivity and 100% specificity compared to FISH of fusion drivers (unknown fusion partner). Overall sensitivity is 78% and accuracy is 99%. The lower limit of detection is approximately 1% of total sequencing reads. LIMITATIONS: Sequence changes outside the analyzed alterations hotspots, including intronic and noncoding regions, will not be identified by this test. Insertions and deletions larger than 20 and 40 bp, respectively, may not be identified by this test. Negative results from specimens for which the percentage of tumor cells is 10% or less should be interpreted with caution. Although variant allele fraction is provided as a percentage, this is not a quantitative test. RNA fusions involving alternative partners or breakpoints outside of the targeted regions cannot be detected by this test. This test does not distinguish between somatic and inherited variants. Tumor heterogeneity, tumor burden, specimen degradation or other limitations of the technology may affect the sensitivity and limit of detection, either broadly across the regions of interest or for specific regions and may lead to false negative results. For tumor tissue, fixation in neutral buffered formalin or alcohol is preferred. Decalcification agents and fixation agents containing heavy metals (e.g., B5) or harsh acid or bas (more content not included)... Performed By: #### T OPTO #### [facility] CLIA [id number] [address] [place] [address] CNOVSPon 08-17-2024 CNOVSP Visit (SP) Office (H EMAWS) ERY MEAD ([id number]) 1955 M Date Time Provider Department 08/17/24 11:50 AM VALDEMAR DUNCAN During your visit today, we recorded the following information about you: Temperature Pulse Blood pressure Weight 97.3 degrees 94/minute 109/65 83.9 kg Valdemar Duncan MD 08/17/2024 1:39 PM Signed (Elements copied from my note dated July 13, 2024, have been reviewed and updated where appropriate, and all reflect current assessment and medical decision making from today's encounter, August 17, 2024) HISTORY OF PRESENT ILLNESS: Rey Mead is a 68 year old male with history right non small cell lung cancer stage I resected 2016, now with metachronous SCC left lung, 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 FRANCK mass found on surveillance scans. 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 Stage IA3 Met with CTS, inoperable. Seeing rad onc for consideration of SBRT. We met to discuss risks and benefits of adjuvant chemotherapy. Here for follow up 08-17-24. Reviewed PET scan,pain is worse in back.. Post SBRT to FRANCK mass May 2023. Reviewed CT report images. We see CT changes 07-07-24 PET 08-01-24 reviewed. He notes intermittent unsteadiness on feet, but drives fine. Ambulated normally on way out of exam room. CLINICAL IMPRESSION: Non small cell lung cancer as above. Stage does not predict significant if any benefit from adjuvant chemotherapy, co morbidities raise risks of such therapy, underlying renal function is marginal. Feel risks of adjuvant chemotherapy outweigh benefits. Now with new FDG avid left lung mass, paraspinal mass. RECOMMENDATION/PLAN: 1. Oxycodone for pain 2. Biopsy of mass, paraspinal seem safest target. 3. Plan RT soon after biopsy. 4. Systemic therapy based on biopsy results Written and verbal health teaching given to patient, patient verbalizes understanding and agrees with treatment plan. PAST MEDICAL HISTORY Diagnosis Date Anxiety state CAD (coronary artery disease) CKD (chronic kidney disease) stage 3, GFR 30-59 ml/min (HCC) COPD (chronic obstructive pulmonary disease) (HCC) Diabetes mellitus (HCC) Former smoker History of bronchoscopy HTN (hypertension) Hypokalemia Lung cancer (HCC) Mixed hyperlipidemia ELLEN (obstructive sleep apnea) Other emphysema (HCC) Other emphysema (HCC) PAST SURGICAL HISTORY Procedure Laterality Date BYPASS GRAFT OTHR,YOCCG-LWN-TSZ LOBECTOMY, SEGMENT FAMILY HISTORY Problem Relation Age of Onset Diabetes Mother Heart Mother Cancer Mother Leukemia Father Colon Cancer Sister Diabetes Sister Emphysema Sister Emphysema Sister Emphysema Sister Emphysema Sister Heart Attack Maternal Grandmother Heart Attack Maternal Grandfather Social History Tobacco Use Smoking status: Former Types: Cigarettes Smokeless tobacco: Never Tobacco comments: Pt smoked 2 packs daily x 49 years, quit 2016 Vaping Use Vaping status: Never Used Substance Use Topics Alcohol use: Not Currently Comment: hasn't drank in 5 months Drug use: Never ALLERGIES: ALLERGIES No Known Allergies CURRENT OUTPATIENT MEDICATIONS: fluticasone/umeclidin/vilan ter (TRELEGY ELLIPTA INHALATION) Inhale 1 Puff as instructed once daily. aspirin 81 mg cap Take 81 mg by mouth once daily. atorvastatin (LIPITOR) 20 mg tablet Take 20 mg by mouth once daily. albuterol (PROVENTIL) 2.5 mg /3 mL (0.083 %) nebulizer solution Use 2.5 mg via nebulizer every 4 hours as needed. albuterol HFA (PROVENTIL HFA, VENTOLIN HFA) 90 mcg/actuation inhaler Inhale 1-2 Puffs as instructed every 4 hours as needed. FARXIGA 5 mg tablet Take 5 mg by mouth once daily. furosemide (LASIX) 40 mg tablet Take 40 mg by mouth once daily. lisinopril 2.5 mg tablet Take 2.5 mg by mouth once daily. LORazepam (ATIVAN) 1 mg tablet Take 1 mg by mouth every 6 hours as needed. metFORMIN ER (FORTAMET) 500 mg 24 hr tablet Take one tablet by mouth in AM AND two tablets in PM. metoprolol tartrate, short acting, (LOPRESSOR) 50 mg tablet Take 50 mg by mouth once daily. PARoxetine (PAXIL) 10 mg tablet Take 10 mg by mouth once daily. pregabalin (LYRICA) 150 mg capsule Take 150 mg by mouth once daily. roflumilast (DALIRESP) 250 mcg tablet Take 250 mcg by mouth once daily. RYBELSUS 14 mg tablet Take 7 mg by mouth once daily. tamsulosin (FLOMAX) 0.4 mg Take 0.4 mg by mouth once daily. predniSONE (DELTASONE) 5 mg tablet Take 15 mg by mouth once daily. take three a day to finish course, Dr Hurd (Patient not taking: Reported on 08/17/2024) gabapentin (NEURONTIN) 300 mg capsule Take 1 capsule by mouth once daily for 90 days. VITAMIN B COMPLEX-100 ORAL Take by mouth. (Patient not taking: Reported on 04/21/2023) JEIKETLJPSZ-GIATFCDIL-ARYKQ TER INHALATION Inhale as instructed. (Patient not taking: Reported on 04/21/2023) MARIBELL (more content not included)... [facility] TAWNY Telephone (JAMES) REY MEAD ([id number]) 1955 M Date Time Provider Department 08/17/24 VALDEMAR DUNCAN During your visit today, we recorded the following information about you: Nedra Debi 08/17/2024 12:37 PM Signed AVS 08/17 Need biopsy of paraspinal mass leanne at [facility]AT MESSAGE SENT FOR SCHEDULING PURPOSES Appointment with Dr Gume lan palliative RT to paraspinal mass. Debi Sneed 08/17/2024 3:03 PM Signed Lvm for patient to return the call. He is scheduled at [facility] for biopsy 08/21 8:00am arrival Need to schedule Appointment with Dr Gume lan palliative RT to paraspinal mass. [facility], Elena 08/18/2024 8:33 AM Signed Relayed message to patient regarding biopsy Scheduled with Dr. Dunaway Allergies As of Date: 08/17/2024 (No Known Allergies) Date Reviewed: 08/17/2024 Reviewed by: Alana Sanchez LPN - Fully Assessed Reason for Visit: AVS 08/17 [Other] Prescriptions as of 08/18/2024 - oxyCODONE IR (ROXICODONE) 5 mg immediate release tablet Take 1-2 tablets by mouth every 6 hours as needed for pain for up to 7 days. FOR PAIN. - predniSONE (DELTASONE) 5 mg tablet Take 15 mg by mouth once daily. take three a day to finish course, Dr Hurd - gabapentin (NEURONTIN) 300 mg capsule Take 1 capsule by mouth once daily for 90 days. - VITAMIN B COMPLEX-100 ORAL Take by mouth. - fluticasone/umeclidin/vilan ter (TRELEGY ELLIPTA INHALATION) Inhale 1 Puff as instructed once daily. - NHLVLZEPHVB-BHATBTSAH-PRLDQ TER INHALATION Inhale as instructed. - ALBUTEROL INHALATION Inhale 2 Puffs as instructed every 4 hours as needed. - aspirin 81 mg cap Take 81 mg by mouth once daily. - atorvastatin (LIPITOR) 20 mg tablet Take 20 mg by mouth once daily. - albuterol (PROVENTIL) 2.5 mg /3 mL (0.083 %) nebulizer solution Use 2.5 mg via nebulizer every 4 hours as needed. - albuterol HFA (PROVENTIL HFA, VENTOLIN HFA) 90 mcg/actuation inhaler Inhale 1-2 Puffs as instructed every 4 hours as needed. - FARXIGA 5 mg tablet Take 5 mg by mouth once daily. - furosemide (LASIX) 40 mg tablet Take 40 mg by mouth once daily. - lisinopril 2.5 mg tablet Take 2.5 mg by mouth once daily. - LORazepam (ATIVAN) 1 mg tablet Take 1 mg by mouth every 6 hours as needed. - metFORMIN ER (FORTAMET) 500 mg 24 hr tablet Take one tablet by mouth in AM AND two tablets in PM. - metoprolol tartrate, short acting, (LOPRESSOR) 50 mg tablet Take 50 mg by mouth once daily. - PARoxetine (PAXIL) 10 mg tablet Take 10 mg by mouth once daily. - pregabalin (LYRICA) 150 mg capsule Take 150 mg by mouth once daily. - roflumilast (DALIRESP) 250 mcg tablet Take 250 mcg by mouth once daily. - RYBELSUS 14 mg tablet Take 7 mg by mouth once daily. - tamsulosin (FLOMAX) 0.4 mg Take 0.4 mg by mouth once daily. - L.acid/L.casei/B.bif/B.link/ FOS (PROBIOTIC BLEND ORAL) Take 1 capsule by mouth once daily. Problem List As Of Date 08/17/2024 Noted Resolved Panlobular emphysema (HCC) [J43.1] 03/19/2023 Type 2 diabetes mellitus with hyperglycemia (HC*03/19/2023 Peripheral vascular disease (HCC) [I73.9] 03/19/2023 Type 2 diabetes mellitus with circulatory disor*03/19/2023 Lung mass [R91.8] 04/02/2023 Encounter Status:Closed by ELENA GOLDSMITH on 08/18/24 [facility] 08-10-2024 [facility] Telephone (JAMES) REY MEAD ([id number]) 1955 M Date Time Provider Department 08/10/24 ABRAMOVICH, VALDEMAR HEMAWS During your visit today, we recorded the following information about you: Debi Sneed 08/10/2024 9:15 AM Signed Lvm for patient to return the call. Per Dr. Duncan his pet scan results are in so his 08/21 appointment can be changed to 08/11 or when patient is able. Debi Haji Dilia 08/10/2024 12:40 PM Signed Patient returned call and took sooner appointment for 08/17 as this was the next opening. Allergies As of Date: 08/10/2024 (No Known Allergies) Date Reviewed: 07/13/2024 Reviewed by: Areli Stephenson LPN - Fully Assessed Reason for Visit: Appointment [186] Prescriptions as of 08/26/2024 - oxyCODONE IR (ROXICODONE) 5 mg immediate release tablet Take 1-2 tablets by mouth every 6 hours as needed for pain for up to 7 days. FOR PAIN. - predniSONE (DELTASONE) 5 mg tablet Take 15 mg by mouth once daily. take three a day to finish course, Dr Hurd - gabapentin (NEURONTIN) 300 mg capsule Take 1 capsule by mouth once daily for 90 days. - VITAMIN B COMPLEX-100 ORAL Take by mouth. - fluticasone/umeclidin/vilan ter (TRELEGY ELLIPTA INHALATION) Inhale 1 Puff as instructed once daily. - [id number]-[id number]-QEGBL TER INHALATION Inhale as instructed. - ALBUTEROL INHALATION Inhale 2 Puffs as instructed every 4 hours as needed. - aspirin 81 mg cap Take 81 mg by mouth once daily. - atorvastatin (LIPITOR) 20 mg tablet Take 20 mg by mouth once daily. - albuterol (PROVENTIL) 2.5 mg /3 mL (0.083 %) nebulizer solution Use 2.5 mg via nebulizer every 4 hours as needed. - albuterol HFA (PROVENTIL HFA, VENTOLIN HFA) 90 mcg/actuation inhaler Inhale 1-2 Puffs as instructed every 4 hours as needed. - FARXIGA 5 mg tablet Take 5 mg by mouth once daily. - furosemide (LASIX) 40 mg tablet Take 40 mg by mouth once daily. - lisinopril 2.5 mg tablet Take 2.5 mg by mouth once daily. - LORazepam (ATIVAN) 1 mg tablet Take 1 mg by mouth every 6 hours as needed. - metFORMIN ER (FORTAMET) 500 mg 24 hr tablet Take one tablet by mouth in AM AND two tablets in PM. - metoprolol tartrate, short acting, (LOPRESSOR) 50 mg tablet Take 50 mg by mouth once daily. - PARoxetine (PAXIL) 10 mg tablet Take 10 mg by mouth once daily. - pregabalin (LYRICA) 150 mg capsule Take 150 mg by mouth once daily. - roflumilast (DALIRESP) 250 mcg tablet Take 250 mcg by mouth once daily. - RYBELSUS 14 mg tablet Take 7 mg by mouth once daily. - tamsulosin (FLOMAX) 0.4 mg Take 0.4 mg by mouth once daily. - L.acid/L.casei/B.bif/B.link/ FOS (PROBIOTIC BLEND ORAL) Take 1 capsule by mouth once daily. Problem List As Of Date 08/10/2024 Noted Resolved Panlobular emphysema (HCC) [J43.1] 03/19/2023 Type 2 diabetes mellitus with hyperglycemia (HC*03/19/2023 Peripheral vascular disease (HCC) [I73.9] 03/19/2023 Type 2 diabetes mellitus with circulatory disor*03/19/2023 Lung mass [R91.8] 04/02/2023 Encounter Status:Closed by DEBI SNEED on 08/26/24 Normal [facility] Hepatobilliary Img w/Pharm I nton 08-08-2024 Hepatobilliary Img w/Pharm Int Normal [facility] NM PET/CT SKULL-THIGH SUBQon 08-01-2024 NM PET/CT SKULL-THIGH SUBQ * * *Final Report* * * DATE OF EXAM: Aug 01 2024 12:11PM MDP 0063 - NM PET/CT SKULL-THIGH SUBQ / PROCEDURE REASON: C34.90-Malignant neoplasm of unspecified part of unspecified bronchus or lung (H * * * * Physician Interpretation * * * * EXAMINATION: BODY FDG PET-CT CLINICAL HISTORY: Lung cancer EXAM CATEGORY: Initial treatment strategy. TECHNIQUE: Radiopharmaceutical was administered intravenously followed by PET imaging from the eyes to thighs. Free breathing, low dose CT of the same body region was acquired without IV contrast for attenuation correction and anatomic localization. Unenhanced imaging is limited for the evaluation of some pathology and the acquired CT was not designed to produce diagnostic CT scan quality. Physiologic/non-pathologic uptake in some body regions could confound or obscure some pathology. * CT Dose-Length Product (DLP): 365 mGy*cm * CT Dose Reduction Employed: Yes * Blood glucose: 200 mg/dL * Injection site: Right Forearm-Antecubital * Injected activity: 10.8 mCi * Uptake Time: 106 minutes * Radiopharmaceutical: E52-Hvhgcqpwqykgnntobd (FDG) COMPARISON: PET/CT 02/09/2023 CORRELATION: CT chest 07/06/2024 RESULT: REFERENCES: FDG uptake is used as a surrogate marker for glucose metabolism. All reported standardized uptake values represent maximum SUV (SUVmax) per body weight, unless otherwise specified. SUV reference values, as follows: * Blood Pool (Descending Aorta): SUVmax 1.4 * Background Liver: SUVmax 2.4; SUVmean 1.7 Localizer Images: No additional findings. HEAD AND NECK: Head: No radiotracer avid lesion or mass effect in the imaged intracranial compartment. Aerodigestive Tract: No radiotracer avid lesion. Lymph Nodes: No radiotracer avid lymphadenopathy. Neck Soft Tissues: No radiotracer avid thyroid nodule. Diffuse facial muscle uptake likely physiologic. CHEST: Lungs and Pleura: Large Hypermetabolic mass/opacity (max SUV 9.5), in the left upper lobe extending to the left chest wall/pleural surface with invasion with lytic changes of the left lateral second, third ribs. The conglomerate measures about 7.1 x 7.4 cm and demonstrates central photopenia suggesting necrotic change. Small left pleural effusion. Hypermetabolic Right posterior medial pleural nodularity (max SUV 4.8) measures 1.7 cm. A right lower lobe nodular opacity with mild activity (Max SUV 2.5) measures 1.4 cm Lymph Nodes: Hypermetabolic mediastinal lymph nodes in the prevascular region (max SUV 2.7) about 1 cm. Hypermetabolic left axillary lymph node (Max SUV 10.9) measures 1.3 cm. Mediastinum: No radiotracer avid mass. Cardiovascular: Blood pool activity. No pericardial effusion. Normal heart size. Chest Wall: No radiotracer avid soft tissue lesion. ABDOMEN AND PELVIS: Hepatobiliary: No radiotracer avid lesion. No measurable mass. Spleen: No radiotracer avid lesion. No splenomegaly. Pancreas: No radiotracer avid lesion. Adrenals: Hypermetabolic left adrenal nodule (Max SUV 4.7) measures 1.9 x 2 cm Urinary Tract: Physiologic radiotracer excretion in the renal collecting systems and urinary bladder. No hydronephrosis. GI Tract: No radiotracer avid lesion. No bowel dilation. Diffuse colonic activity can be physiological. Peritoneum: No radiotracer avid lesion. No ascites. Lymph Nodes: No radiotracer avid lymphadenopathy. Vasculature: Blood pool activity. Pelvic Organs: No radiotracer avid lesion. MUSCULOSKELETAL: Bones: Left third/fourth rib invasion associated with the left upper lobe mass. Hypermetabolic Right posterior paraspinal mass at the level of T6/ T7 with lytic changes in the adjacent transverse process/posterior elements, (max SUV 8.3) measures 3.8 x 7.5 cm. Hypermetabolic focus in T2 (max SUV 8.3). Soft Tissues: Hypermetabolic right posterior paraspinal mass as described above IMPRESSION PRIMARY: Large hypermetabolic left lung upper lobe mass with invasion of the left lateral chest wall/rib cage. MITCH STATUS: Hypermetabolic mediastinal, left axillary lymph nodes likely metastatic. METASTASES: Findings suggestive of right pleural, left adrenal and osseous metastases. Hypermetabolic right pleural nodule. Hypermetabolic left adrenal nodule. Hypermetabolic osseous lesion in the thoracic spine at T2 level. Hypermetabolic Right posterior paraspinal mass at the level of T6/ T7 with lytic changes in the adjacent transverse process/posterior elements. Event Host: PSCB Transcribe Date/Time: Aug 01 2024 9:27P Dictated by : RICO ROCHA MD This examination was interpreted and the report reviewed and electronically signed by: RICO ROCHA MD on Aug 01 2024 10:50PM EST [id number] Normal [facility] Visit Repor ton 07-24-2024 Gastroenterology Visit Report Normal [facility] Lipaseon 07-20-2024 Lipase [Catalytic activity/Vol] 34 U/L Normal 13-75 [facility] Comment on above: Result Comment: Plea se note:LIPASE revised reference range effective 23.New Lipase methodology. Expected to produce lower valuesthan the previous assay method.NEW Reference Range: 13 - 75 U/L Performed By: #### L [id number] ####[facility] [id number] [place], [address] Lipase measurementOrdered By : Latosha Renee on 07-20-2024 Lipase [Catalytic activity/Vol] 34 U/L 13-75 [facility] Comment on above: Please note:LIPASE r evised reference range effective 22. New Lipase methodology. Expected to produce lower values than the previous assay method. NEW Reference Range: 13 - 75 U/L CNOVSPon 07-13-2024 CNOVSP Visit (SP) Office ( EMAWS) REY MEAD ([id number]) 1955 M Date Time Provider Department 07/13/24 9:40 AM VALDEMAR DUNCAN During your visit today, we recorded the following information about you: Temperature Pulse Respiration Blood pressure 97.7 degrees 89/minute 12/minute 103/69 Weight 88 kg Valdemar Duncan MD 07/13/2024 10:59 AM Signed (Elements copied from my note dated March 07, 2024, have been reviewed and updated where appropriate, and all reflect current assessment and medical decision making from today's encounter, July 13, 2024) HISTORY OF PRESENT ILLNESS: Rey Mead is a 68 year old male with history right non small cell lung cancer stage I resected 2017, now with metachronous SCC left lung, 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 FRANCK mass found on surveillance scans. 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 Stage IA3 Met with CTS, inoperable. Seeing rad onc for consideration of SBRT. We met to discuss risks and benefits of adjuvant chemotherapy. Here for follow up 07-13-24. Notes some pain intermittent bilateral back radiates to front, mild dull achy pain. CT chest 07-07-24 shows increasing left lung consolidation. Reviewed with Dr Dunaway, feels it is late for radiation pneumonitis to be cause. Post SBRT to FRANCK mass May 2023. Reviewed CT report images. CLINICAL IMPRESSION: Non small cell lung cancer as above. Stage does not predict significant if any benefit from adjuvant chemotherapy, co morbidities raise risks of such therapy, underlying renal function is marginal. Feel risks of adjuvant chemotherapy outweigh benefits. We see CT changes 07-07-24 RECOMMENDATION/PLAN: 1. PET scan when feasible 2. See back after PET Written and verbal health teaching given to patient, patient verbalizes understanding and agrees with treatment plan. PAST MEDICAL HISTORY Diagnosis Date Anxiety state CAD (coronary artery disease) CKD (chronic kidney disease) stage 3, GFR 30-59 ml/min (HCC) COPD (chronic obstructive pulmonary disease) (HCC) Diabetes mellitus (HCC) Former smoker History of bronchoscopy HTN (hypertension) Hypokalemia Lung cancer (HCC) Mixed hyperlipidemia ELLEN (obstructive sleep apnea) Other emphysema (HCC) Other emphysema (HCC) PAST SURGICAL HISTORY Procedure Laterality Date BYPASS GRAFT OTHR,[id number] LOBECTOMY, SEGMENT FAMILY HISTORY Problem Relation Age of Onset Diabetes Mother Heart Mother Cancer Mother Leukemia Father Colon Cancer Sister Diabetes Sister Emphysema Sister Emphysema Sister Emphysema Sister Emphysema Sister Heart Attack Maternal Grandmother Heart Attack Maternal Grandfather Social History Tobacco Use Smoking status: Former Types: Cigarettes Smokeless tobacco: Never Tobacco comments: Pt smoked 2 packs daily x 49 years, quit 2016 Vaping Use Vaping status: Never Used Substance Use Topics Alcohol use: Yes Comment: occ Drug use: Never ALLERGIES: ALLERGIES No Known Allergies CURRENT OUTPATIENT MEDICATIONS: predniSONE (DELTASONE) 5 mg tablet Take 15 mg by mouth once daily. take three a day to finish course, Dr Hurd gabapentin (NEURONTIN) 300 mg capsule Take 1 capsule by mouth once daily for 90 days. VITAMIN B COMPLEX-100 ORAL Take by mouth. (Patient not taking: Reported on 04/21/2023) fluticasone/umeclidin/vilan ter (TRELEGY ELLIPTA INHALATION) Inhale 1 Puff as instructed once daily. VUSXLJJGEHO-EEJNVRWBM-PPDDD TER INHALATION Inhale as instructed. (Patient not taking: Reported on 04/21/2023) ALBUTEROL INHALATION Inhale 2 Puffs as instructed every 4 hours as needed. (Patient not taking: Reported on 04/27/2024) aspirin 81 mg cap Take 81 mg by mouth once daily. atorvastatin (LIPITOR) 20 mg tablet Take 20 mg by mouth once daily. albuterol (PROVENTIL) 2.5 mg /3 mL (0.083 %) nebulizer solution Use 2.5 mg via nebulizer every 4 hours as needed. albuterol HFA (PROVENTIL HFA, VENTOLIN HFA) 90 mcg/actuation inhaler Inhale 1-2 Puffs as instructed every 4 hours as needed. FARXIGA 5 mg tablet Take 5 mg by mouth once daily. furosemide (LASIX) 40 mg tablet Take 40 mg by mouth once daily. lisinopril 2.5 mg tablet Take 2.5 mg by mouth once daily. LORazepam (ATIVAN) 1 mg tablet Take 1 mg by mouth every 6 hours as needed. metFORMIN ER (FORTAMET) 500 mg 24 hr tablet Take one tablet by mouth in AM AND two tablets in PM. metoprolol tartrate, short acting, (LOPRESSOR) 50 mg tablet Take 50 mg by mouth once daily. PARoxetine (PAXIL) 10 mg tablet Take 10 mg by mouth once daily. pregabalin (LYRICA) 150 mg capsule Take 150 mg by mouth once daily. roflumilast (DALIRESP) 250 mcg tablet Take 250 mcg by mouth once daily. RYBELSUS 14 mg tablet Take 14 mg by mouth once daily. tamsulosin (FLOMAX) 0.4 mg Take 0.4 mg by mouth once daily. L.acid/L.casei/B.bif/B.link/ FOS ( (more content not included)... Normal [facility] Abdomen Limitedon 07-07-2024 Abdomen Limited Normal [facility] CT CHEST W IVCONon CT CHEST W IVCON * * *Final Report* * * DATE OF EXAM: Jul 06 2024 9:46AM [facility] 0539 - CT CHEST W IVCON / PROCEDURE REASON: Malignant neoplasm of unspecified part of unspecified bronchus or lung (HCC) * * * * Physician Interpretation * * * * EXAMINATION: CHEST CT WITH CONTRAST CLINICAL HISTORY: Lung carcinoma Technique: Spiral CT acquisition of the chest from the thoracic inlet to the upper abdomen following IV contrast. MQ: CTCW_6 Contrast: 50 mL Omnipaque [address] Radiation dose: Integrated Dose-length product (DLP) for this visit = 285 mGy*cm CT Dose Reduction Employed: Automated exposure control(AEC) and iterative recon Comparison: 02/18/2024 and 11/24/2023 CT RESULT: Limitations: None. Lines, tubes, and devices: None. Lung parenchyma and airways: Prior right upper lobectomy Large area of left upper lobe traction bronchiectasis and consolidation.. The area of consolidation in this region has increased. Central soft tissue density is approximately 4.9 x 3.8 cm. Image 76 series 5. Difficult to measure due to adjacent consolidative opacity. Appears significantly increased over prior 2 studies, however. Mild bronchiectasis with mucus plugging at the right lung base is stable. Minimal stable atelectasis or bronchiectasis in the right middle lobe and lingula. No new pulmonary nodule. The central airways are patent. Pleural space: No pleural effusion. No pleural thickening. Lower neck, lymph nodes, and mediastinum: The imaged thyroid gland is normal. No lymphadenopathy in the supraclavicular, axillary, mediastinal, or hilar regions. Heart, pericardium, and thoracic vessels: The thoracic aorta and main pulmonary artery are normal in caliber. The cardiac chambers are normal in size. Coronary artery atherosclerotic calcifications are noted, although the study is not optimized for coronary assessment. No pericardial effusion or thickening. Bones and soft tissues: No destructive bone lesion. Chest wall is unremarkable. Upper abdomen: Stable left adrenal nodule Localizer images: No additional findings. IMPRESSION: Central soft tissue density is difficult to measure due to adjacent consolidative opacity. Appears to have significantly increased over prior 2 studies, however. Prior right upper lobectomy. Large area of left upper lobe traction bronchiectasis and consolidation.. The area of consolidation in this region has increased. Mild bronchiectasis with mucus plugging at the right lung base is stable. Minimal stable atelectasis or bronchiectasis in the right middle lobe and lingula Event Host: AUREA Transcribe Date/Time: Jul 12 2024 1:10P Dictated by : ROBB KRISHNA MD This examination was interpreted and the report reviewed and electronically signed by: ROBB KRISHNA MD on Jul 12 2024 1:24PM EST [id number] Normal [facility] Creatinine + eGFR Pnl SerPlB ldon 07-06-2024 Creatinine and Glomerular filtration rate.predicted panel (S/P/Bld) 97 mL/min/1.73m??? Normal >=60 [facility] Comment on above: Order Comment: Tata jean Type: BLOOD SPECIMENOrdering Facility: [facility] Address: [address] [place] [address] Result Comment: Alexia mated Glomerular Filtration Rate (eGFR) is calculated using the 2020 CKD-EPI creatinine equation. This equation utilizes serum creatinine, sex, and age as parameters. The creatinine assay has traceable calibration to isotope dilution-mass spectrometry. Refer to KDIGO guidelines for clinical interpretation. In patients with unstable renal function, e.g. those with acute kidney injury, the eGFR may not accurately reflect actual GFR. Performed By: #### 4 5066-8 ####[facility] [id number] [address] [facility] Creatinine and Glomerular fi ltration rate.predicted panel (S/P/Bld)on 07-06-2024 Creatinine [Mass/Vol] 0.78 mg/dL Normal 0.73-1.22 [facility] Comment on above: Order Comment: Tata jean Type: BLOOD SPECIMENOrdering Facility: [facility] Address: [address] [place] [address] Performed By: #### 4 5066-8 ####[facility] [id number] [address] OF [place] CNPNon 07-04-2024 CNPN Telephone (HEMAWS) REY MEAD ([id number]) 1955 Date Time Provider Department 07/04/24 VALDEMAR DUNCAN During your visit today, we recorded the following information about you: Maite Orellana, MURPHY 07/04/2024 1:[address] order for stat creatinine order for pt , pt appt on 07/06/[address] Shilpi Ware RN 07/04/2024 2:19 PM Signed Order pended. Keiry Ware RN Allergies As of Date: 07/04/2024 (No Known Allergies) Date Reviewed: 04/27/2024 Reviewed by: Marina Lane LPN - Fully Assessed Reason for Visit: Orders [681] Primary Visit Diagnosis:Squamous cell carcinoma of left lung (HCC) [C34.92] Order(s):CREATININE BLD [SQCRET] Order #: [id number] FUTURE Prescriptions as of 07/04/2024 - gabapentin (NEURONTIN) 300 mg capsule Take 1 capsule by mouth once daily for 90 days. - VITAMIN B COMPLEX-100 ORAL Take by mouth. - fluticasone/umeclidin/vilan ter (TRELEGY ELLIPTA INHALATION) Inhale 1 Puff as instructed once daily. - [id number]-[id number]-[id number] TER INHALATION Inhale as instructed. - ALBUTEROL INHALATION Inhale 2 Puffs as instructed every 4 hours as needed. - aspirin 81 mg cap Take 81 mg by mouth once daily. - atorvastatin (LIPITOR) 20 mg tablet Take 20 mg by mouth once daily. - albuterol (PROVENTIL) 2.5 mg /3 mL (0.083 %) nebulizer solution Use 2.5 mg via nebulizer every 4 hours as needed. - albuterol HFA (PROVENTIL HFA, VENTOLIN HFA) 90 mcg/actuation inhaler Inhale 1-2 Puffs as instructed every 4 hours as needed. - FARXIGA 5 mg tablet Take 5 mg by mouth once daily. - furosemide (LASIX) 40 mg tablet Take 40 mg by mouth once daily. - lisinopril 2.5 mg tablet Take 2.5 mg by mouth once daily. - LORazepam (ATIVAN) 1 mg tablet Take 1 mg by mouth every 6 hours as needed. - metFORMIN ER (FORTAMET) 500 mg 24 hr tablet Take one tablet by mouth in AM AND two tablets in PM. - metoprolol tartrate, short acting, (LOPRESSOR) 50 mg tablet Take 50 mg by mouth once daily. - PARoxetine (PAXIL) 10 mg tablet Take 10 mg by mouth once daily. - pregabalin (LYRICA) 150 mg capsule Take 150 mg by mouth once daily. - roflumilast (DALIRESP) 250 mcg tablet Take 250 mcg by mouth once daily. - RYBELSUS 14 mg tablet Take 14 mg by mouth once daily. - tamsulosin (FLOMAX) 0.4 mg Take 0.4 mg by mouth once daily. - L.acid/L.casei/B.bif/B.link/ FOS (PROBIOTIC BLEND ORAL) Take 1 capsule by mouth once daily. Problem List As Of Date 07/04/2024 Noted Resolved Panlobular emphysema (HCC) [J43.1] 03/19/2023 Type 2 diabetes mellitus with hyperglycemia (HC*03/19/2023 Peripheral vascular disease (HCC) [I73.9] 03/19/2023 Type 2 diabetes mellitus with circulatory disor*03/19/2023 Lung mass [R91.8] 04/02/2023 Encounter Status:Closed by SHILPI WARE on 07/04/24 [facility]. COMMENT Normal . [facility] Comment on above: Order Comment: [id number] 8TIGER RMT GLORIA AUTO ANTIBODY Result Comment: Test Ordered: [id number] GLORIA-65 AutoantibodyGAD-65 <5.0 U/mL Reference Range: 0.0-5.0Performed at: - [address] [id number] Director: Jessee Abel MD, Phone: [phone] at: [facility] [address] [id number] Director: Maico Ascencio PhD, Phone: [phone] Performed By: #### L 500.3147, L514.8614, Y0726.0232, A5321.9386 ####[facility] [id number] [place], [address] XR CHEST 2V FRONTAL/LATon XR CHEST 2V FRONTAL/LAT * * *Final Report* * * DATE OF EXAM: Jun 27 2024 12:32PM WOX [id number] - XR CHEST 2V FRONTAL/LAT / PROCEDURE REASON: wheezing * * * * Physician Interpretation * * * * EXAMINATION: CHEST RADIOGRAPH (2 VIEW FRONTAL and LATERAL) CLINICAL HISTORY: Chest wall pain with shortness of breath. MQ: XC2_6 EXAM DATE/TIME: 06/27/2024 12:32 PM COMPARISON: Chest x-ray dated 05/22/2024 RESULT: Lines, tubes, and devices: None. Lungs and pleura: Stable consolidative/nodular left upper lobe opacity with subjacent pleural thickening. No radiographic evidence of new airspace consolidation. No discernible pleural effusion or pneumothorax Cardiomediastinal silhouette: Stable cardiomediastinal silhouette with postsurgical changes from median sternotomy. Bones and soft tissues: Stable deformity of posterior right upper ribs. Degenerative changes IMPRESSION: Stable radiographic appearance of the chest with stable consolidative/nodular opacity in the left upper lobe with subjacent pleural thickening. Event Host: AUREA Transcribe Date/Time: Jun 27 2024 12:56P Dictated by : GARY WALKER MD This examination was interpreted and the report reviewed and electronically signed by: GARY WALKER MD on Jun 27 2024 12:58PM EST [id number] Normal [facility] XR Chest PA and Lateralon IMPRESSION: Stable radiographic appearance of the chest with stable consolidative/nodular opacity in the left upper lobe with subjacent pleural thickening. Event Host: PSCB Transcribe Date/Time: Jun 27 2024 12:56P Dictated by : GARY WALKER MD This examination was interpreted and the report reviewed and electronically signed by: GARY WALKER MD on Jun 27 2024 12:58PM EST DIVISION OF RADIOLOGY * * *Final Report* * * DATE OF EXAM: Jun 27 2024 12:32PM WOX [id number] - XR CHEST 2V FRONTAL/LAT / PROCEDURE REASON: wheezing * * * * Physician Interpretation * * * * EXAMINATION: CHEST RADIOGRAPH (2 VIEW FRONTAL & LATERAL) CLINICAL HISTORY: Chest wall pain with shortness of breath. MQ: XC2_6 EXAM DATE/TIME: 06/27/2024 12:32 PM COMPARISON: Chest x-ray dated 05/22/2024 RESULT: Lines, tubes, and devices: None. Lungs and pleura: Stable consolidative/nodular left upper lobe opacity with subjacent pleural thickening. No radiographic evidence of new airspace consolidation. No discernible pleural effusion or pneumothorax Cardiomediastinal silhouette: Stable cardiomediastinal silhouette with postsurgical changes from median sternotomy. Bones and soft tissues: Stable deformity of posterior right upper ribs. Degenerative changes DIVISION OF RADIOLOGY Provider, Francois Bates [facility] - 06/27/2024 * * *Final Report* * * DATE OF EXAM: Jun 27 2024 12:32PM WOX 5291 - XR CHEST 2V FRONTAL/LAT / PROCEDURE REASON: wheezing * * * * Physician Interpretation * * * * EXAMINATION: CHEST RADIOGRAPH (2 VIEW FRONTAL & LATERAL) CLINICAL HISTORY: Chest wall pain with shortness of breath. MQ: XC2_6 EXAM DATE/TIME: 06/27/2024 12:32 PM COMPARISON: Chest x-ray dated 05/22/2024 RESULT: Lines, tubes, and devices: None. Lungs and pleura: Stable consolidative/nodular left upper lobe opacity with subjacent pleural thickening. No radiographic evidence of new airspace consolidation. No discernible pleural effusion or pneumothorax Cardiomediastinal silhouette: Stable cardiomediastinal silhouette with postsurgical changes from median sternotomy. Bones and soft tissues: Stable deformity of posterior right upper ribs. Degenerative changes IMPRESSION IMPRESSION: Stable radiographic appearance of the chest with stable consolidative/nodular opacity in the left upper lobe with subjacent pleural thickening. Event Host: PSCB Transcribe Date/Time: Jun 27 2024 12:56P Dictated by : GARY WALKER MD This examination was interpreted and the report reviewed and electronically signed by: GARY WALKER MD on Jun 27 2024 12:58PM EST [facility] Radiology Study observation (narrative) [facility] XR Chest PA and LateralOrder ed By: Ccf Provider on 06-27-2024 [facility] Gastroenterology Visit Repor ton 06-26-2024 Gastroenterology Visit Report Normal [facility] C-Peptideon 06-24-2024 C PEPTIDE 4.9 ng/mL High 1.1-4.4 [facility] Comment on above: Result Comment: C-Pe ptide reference interval is for fasting patients.Performed at: [facility] [id number] Director: Maico Ascencio PhD, Phone: [phone] Performed By: #### L 500.4050, L501.5200, L3100.7750, L3410.9998 ####[facility] [address] [place], [place], [id number] Anion gap in Serum or Plasma Ordered By: Latosha Renee on 06-23-2024 Anion gap [Moles/Vol] 16 mmol/L High 5-15 [facility] BUN/creatinine ratioOrdered By: Latosha Renee on 06-23-2024 Urea nitrogen/Creatinine [Mass ratio] 21.7 mg/mg High 10-20 [facility] Bilirubin, totalOrdered By: Latosha Renee on 06-23-2024 Bilirubin [Mass/Vol] 0.47 mg/dL 0.00-1.30 [facility] C-peptideOrdered By: Latosha Renee on 06-23-2024 C-Peptide 4.9 ng/mL High 1.1-4.4 [facility] Comment on above: C-Peptide reference interval is for fasting patients.Performed at: [employer] [id number] Director: Maico Ascencio PhD, Phone: [phone] Carbon dioxide, total [Moles /volume] in Central venous bloodOrdered By: Latosha Renee on 06-23-2024 CO2 [Moles/Vol] 21.4 mmol/L 21.0-32.0 [facility] Chloride assayOrdered By: Vishnu Renee on 06-23-2024 Chloride [Moles/Vol] 92 mmol/L Low 98-108 [facility] Comprehensive Metabolic Prof ilon 06-23-2024 Albumin [Mass/Vol] 3.7 g/dL Normal 3.4-4.8 [facility] Comment on above: Performed By: #### L 500.4050, L501.5200, L3100.7750, L3410.9998 ####[facility] [address] [place], [address] Albumin/Globulin [Mass ratio] 1.0 {ratio} Normal 0.9-2.4 [facility] Comment on above: Performed By: #### L 500.4050, L501.5200, L3100.7750, L3410.9998 ####[facility] [address] [place], [address] ALK PHOS 74 U/L Normal 40-129 [facility] Comment on above: Performed By: #### L 500.4050, L501.5200, L3100.7750, L3410.9998 ####[facility] [address] [place], [address] ALT [Catalytic activity/Vol] 17 U/L Normal <=46 [facility] Comment on above: Performed By: #### L 500.4050, L501.5200, L3100.7750, L3410.9998 ####[facility] [address] [place], [address] AST [Catalytic activity/Vol] 11 U/L Normal <=37 [facility] Comment on above: Performed By: #### L 500.4050, L501.5200, L3100.7750, L3410.9998 ####[facility] [address] [place], [address] Bilirubin [Mass/Vol] 0.47 mg/dL Normal 0.00-1.30 [facility] Comment on above: Performed By: #### L 500.4050, L501.5200, L3100.7750, L3410.9998 ####[facility] [address] [place], [address] BUN/CRE 21.7 RATIO High 10-20 [facility] Comment on above: Performed By: #### L 500.4050, L501.5200, L3100.7750, L3410.9998 ####[facility] [address] [place], [address] Calcium [Mass/Vol] 9.8 mg/dL Normal 7.6-11.0 [facility] Comment on above: Performed By: #### L 500.4050, L501.5200, L3100.7750, L3410.9998 ####[facility] [address] [place], [address] Chloride [Moles/Vol] 92 mmol/L Low 98-108 [facility] Comment on above: Performed By: #### L 500.4050, L501.5200, L3100.7750, L3410.9998 ####[facility] [address] [place], [address] CO2 [Moles/Vol] 21.4 mmol/L Normal 21.0-32.0 [facility] Comment on above: Performed By: #### L 500.4050, L501.5200, L3100.7750, L3410.9998 ####[facility] [address] [place], [address] Creatinine [Mass/Vol] 0.96 mg/dL Normal 0.70-1.20 [facility] Comment on above: Performed By: #### L 500.4050, L501.5200, L3100.7750, L3410.9998 ####[facility] [address] [place], [address] GAP 16 High 5-15 [facility] Comment on above: Performed By: #### L 500.4050, L501.5200, L3100.7750, L3410.9998 ####[facility] [address] [place], [address] GFR/1.73 sq M.predicted among non-blacks MDRD (S/P/Bld) [Vol rate/Area] 87 mL/min/{1.73_m2} Normal >60 [facility] Comment on above: Result Comment: mL/m in/1.73m2 CKD-EPI Creatinine Equation (2020) Performed By: #### L 500.4050, L501.5200, L3100.7750, L3410.9998 ####[facility] [address] [place], [address] Globulin (S) [Mass/Vol] 3.8 g/dL Normal 2.2-4.2 [facility] Comment on above: Performed By: #### L 500.4050, L501.5200, L3100.7750, L3410.9998 ####[facility] [address] [place], [address] Glucose [Mass/Vol] 304 mg/dL High 70-99 [facility] Comment on above: Performed By: #### L 500.4050, L501.5200, L3100.7750, L3410.9998 ####[facility] [address] [place], [address] Potassium [Moles/Vol] 4.3 mmol/L Normal 3.3-5.1 [facility] Comment on above: Performed By: #### L 500.4050, L501.5200, L3100.7750, L3410.9998 ####[facility] [address] [place], [address] Sodium [Moles/Vol] 129 mmol/L Low 133-145 [facility] Comment on above: Performed By: #### L 500.4050, L501.5200, L3100.7750, L3410.9998 ####[facility] [address] [place], [place], [address] T PROT 7.5 g/dL Normal 5.9-8.4 [facility] Comment on above: Performed By: #### L 500.4050, L501.5200, L3100.7750, L3410.9998 ####[facility] [address] [place], [address] Urea nitrogen [Mass/Vol] 21 mg/dL High 4-19 [facility] Comment on above: Performed By: #### L 500.4050, L501.5200, L3100.7750, L3410.9998 ####[facility] [address] [place], [place], [id number] GFR/1.73 sq M.predicted ana g non-blacks MDRD (S/P/Bld) [Vol rate/Area]Ordered By: Latosha Renee on 06-23-2024 Estimated GFR (MDRD) Non-Af Amer 87 >60 [facility] Comment on above: mL/min/1.73m2 CKD-EP I Creatinine Equation (2020) Glomerular filtration rate ( GFR) estimation/1.73 sq m using serum, plasma, or whole bOrdered By: Latosha Renee on 06-23-2024 GFR/1.73 sq M.predicted among non-blacks MDRD (S/P/Bld) [Vol rate/Area] 87 mL/min/{1.73_m2} >60 [facility] Comment on above: mL/min/1.73m2 CKD-EP I Creatinine Equation (2020) Laboratory - Chemistry and C hemistry - challengeOrdered By: Latosha Renee on 06-23-2024 AST [Catalytic activity/Vol] 11 U/L <38 [facility] Magnesiumon 06-23-2024 Magnesium [Mass/Vol] 1.9 mg/dL Normal 1.5-2.2 [facility] Comment on above: Performed By: #### L 500.4050, L501.5200, L3100.7750, L3410.9998 ####[facility] [address] [place], [address] Magnesium (Unsp spec) [Mass/ Vol]Ordered By: Latosha Renee on 06-23-2024 Magnesium [Mass/Vol] 1.9 mg/dL 1.5-2.2 [facility] Magnesium measurement (mass/ volume)Ordered By: Latosha Renee on 06-23-2024 Magnesium (Unsp spec) [Mass/Vol] 1.9 mg/dL 1.5-2.2 [facility] No Panel InformationOrdered By: Latosha Renee on 06-23-2024 Miscellaneous Test COMMENT . [facility] Comment on above: Test Ordered: [id number] GLORIA-65 AutoantibodyGAD-65 <5.0 U/mL Reference Range: 0.0-5.0Performed at: BN - [facility] [address] [id number] Director: Jessee Abel MD, Phone: [phone] at: CB - [facility] [address] [id number] Director: Maico Ascencio PhD, Phone: [phone] 11 U/L <38 [facility] COMMENT . [facility] Potassium (Unsp spec) [Mass/ Vol]Ordered By: Latosha Renee on 06-23-2024 Potassium [Moles/Vol] 4.3 mmol/L 3.3-5.1 [facility] Potassium measurement (mass/ volume)Ordered By: Latosha Ragfunmi on 06-23-2024 Potassium (Unsp spec) [Mass/Vol] 4.3 mmol/L 3.3-5.1 [facility] Serum creatinine measurement (mass/volume)Ordered By: Latoshagypsy Renee on 06-23-2024 Creatinine [Mass/Vol] 0.96 mg/dL 0.70-1.20 [facility] Serum globulin measurementOr dered By: Latosha Renee on 06-23-2024 Globulin (S) [Mass/Vol] 3.8 g/dL 2.2-4.2 [facility] Serum glucose measurement (m ass/volume)Ordered By: Latosha Renee on 06-23-2024 Glucose [Mass/Vol] 304 mg/dL High 70-99 [facility] Serum or plasma alanine delaney otransferase (ALT) measurementOrdered By: Latosha Renee on 06-23-2024 ALT [Catalytic activity/Vol] 17 U/L <47 [facility] Serum or plasma albumin alfreda urement (mass/volume)Ordered By: Latosha Renee on 06-23-2024 Albumin [Mass/Vol] 3.7 g/dL 3.4-4.8 [facility] Serum or plasma albumin/glob ulin mass ratioOrdered By: Latosah Renee on 06-23-2024 Albumin/Globulin [Mass ratio] 1.0 {ratio} 0.9-2.4 [facility] Serum or plasma alkaline debby sphatase measurementOrdered By: Latosha Renee on 06-23-2024 ALP [Catalytic activity/Vol] 74 U/L 40-129 [facility] Serum or plasma calcium alfreda urement (mass/volume)Ordered By: Latosha Renee on 06-23-2024 Calcium [Mass/Vol] 9.8 mg/dL 7.6-11.0 [facility] Serum or plasma urea nitroge n measurement (mass/volume)Ordered By: Latosha Renee on 06-23-2024 Urea nitrogen [Mass/Vol] 21 mg/dL High 4-19 [facility] Sodium levelOrdered By: Sebastián Renee on 06-23-2024 Sodium [Moles/Vol] 129 mmol/L Low 133-145 [facility] Total proteinOrdered By: Gerald Renee on 06-23-2024 Protein [Mass/Vol] 7.5 g/dL 5.9-8.4 [facility] Misc.on 06-20-2024 [facility] Misc. COMMENT Normal . [facility] Comment on above: Order Comment: [id number] 5PBG URINE/PROTECT FROM LIGHT Result Comment: Test Ordered: [id number] Porphobilinogen, Qn, Random UrTest(s) 697721-Nhnsvfiqqzdvpjz, Qn, Random Urwas developed and its performance characteristicsdetermined by [employer]. It has not been cleared or approvedby the Food and Drug Administration.Porphobilinogen, Qn, Random Ur 0.6 mg/L BN Reference Range: Not Estab.Creatinine, U 55.7 mg/dL BN Reference Range: Not Estab.PBG/Creatinine Ratio 1.1 BN Units of Measure: mg/g Creat. Reference Range: 0.2-2.2Performed at: [facility] [employer] [id number] Director: Jessee Abel MD, Phone: [phone] at: [facility] [employer] [id number] Director: Maico Ascencio PhD, Phone: [phone] Performed By: #### L 3410.9998 ####[facility] [address] [place], [address] ARTIE Comprehensive Panelon ARTIE TABLE Comment Normal . [facility] Comment on above: Result Comment: Auto antibody Disease Association -------- Condition Frequency ---------Antinuclear Antibody, SLE, mixed connectiveDirect (ARTIE-D) tissue diseases ---------dsDNA SLE 40 - 60% ---------Chromatin Drug induced SLE 90% SLE 48 - 97% ---------SSA (Ro) SLE 25 - 35% Sjogren's Syndrome 40 - 70% Lupus 100% ---------SSB (La) SLE 10% Sjogren's Syndrome 30% ---------Sm (anti-Gray) SLE 15 - 30% ---------ENGINEERING AND DEVELOPMENT DIRECTOR Mixed Connective Tissue Disease 95%(U1 nRNP, SLE 30 - 50%anti-ribonucleoprotein) Polymyositis and/or Dermatomyositis 20% ---------Scl-70 (antiDNA Scleroderma (diffuse) 20 - 35%topoisomerase) Crest 13% ---------Alethea-1 Polymyositis and/or Dermatomyositis 20 - 40% ---------Centromere B Scleroderma - Crest variant 80% AMENDED REPORT 06/16/241307 COMMENT previously reported as: Test not performed Performed By: #### L 500.4050, L101.9900, L501.6710, L3100.5440, L100.0100, L3100.5475 ####[facility] [address] [place], [place], [id number] ANTI-CENT B AB <0.2 Normal 0.0-0.9 [facility] Comment on above: Result Comment: AMENDED REPORT 06/16/241307 ANTI-CENT B previously reported as: Test not performed Performed By: #### L 500.4050, L101.9900, L501.6710, L3100.5440, L100.0100, L3100.5475 ####[facility] [address] [place], [place], [id number] ANTI-DNA (DS)AB 2 IU/mL Normal 0-9 [facility] Comment on above: Result Comment: Nega tive <5 Equivocal 5 - 9 Positive >9 AMENDED REPORT 06/16/241307 dsDNA AB previously reported as: Test not performed Performed By: #### L 500.4050, L101.9900, L501.6710, L3100.5440, L100.0100, L3100.5475 ####[facility] [address] [place], [place], [id number] ANTI-ALETHEA-1 <0.2 Normal 0.0-0.9 [facility] Comment on above: Result Comment: AMENDED REPORT 06/16/241307 ANTI-ALETHEA previously reported as: Test not performed Performed By: #### L 500.4050, L101.9900, L501.6710, L3100.5440, L100.0100, L3100.5475 ####[facility] [address] [place], [address] ANTI-SS-A < 0.2 Normal 0.0-0.9 [facility] Comment on above: Result Comment: AMENDED REPORT 06/16/241307 Anti-SS-A previously reported as: Test not performed Performed By: #### L 500.4050, L101.9900, L501.6710, L3100.5440, L100.0100, L3100.5475 ####[facility] [address] [place], [address] ANTI-SS-B < 0.2 Normal 0.0-0.9 [facility] Comment on above: Result Comment: AMENDED REPORT 06/16/241307 Anti-SS-B previously reported as: Test not performed Performed By: #### L 500.4050, L101.9900, L501.6710, L3100.5440, L100.0100, L3100.5475 ####[facility] [address] [place], [address] ANTICHROMATIN <0.2 Normal 0.0-0.9 [facility] Comment on above: Result Comment: AMENDED REPORT 06/16/241307 ANTICHROMATIN previously reported as: Test not performed Performed By: #### L 500.4050, L101.9900, L501.6710, L3100.5440, L100.0100, L3100.5475 ####[facility] [address] [place], [address] ANTISCLERODERM <0.2 Normal 0.0-0.9 [facility] Comment on above: Result Comment: AMENDED REPORT 06/16/241307 ANTISCLER previously reported as: Test not performed Performed By: #### L 500.4050, L101.9900, L501.6710, L3100.5440, L100.0100, L3100.5475 ####[facility] [address] [place], [address] ENGINEERING AND DEVELOPMENT DIRECTOR Ab <0.2 Normal 0.0-0.9 [facility] Comment on above: Result Comment: AMENDED REPORT 06/16/241307 ENGINEERING AND DEVELOPMENT DIRECTOR Ab previously reported as: Test not performed Performed By: #### L 500.4050, L101.9900, L501.6710, L3100.5440, L100.0100, L3100.5475 ####[facility] [address] [place], [address] GRAY Ab <0.2 Normal 0.0-0.9 [facility] Comment on above: Result Comment: AMENDED REPORT 06/16/241307 GRAY Ab previously reported as: Test not performed Performed By: #### L 500.4050, L101.9900, L501.6710, L3100.5440, L100.0100, L3100.5475 ####[facility] [address] [place], [place], [id number] ANTINUCLEAR ANTIBODIES DIREC Ton 06-16-2024 ARTIE,DIRECT Negative Normal Negative [facility] Comment on above: Result Comment: Perf ormed at: [employer] [id number] Director: Maico Ascencio PhD, Phone: [phone] Performed By: #### L 500.4050, L101.9900, L501.6710, L3100.5440, L100.0100, L3100.5475 ####[facility] [address] [place], [place], [phone] [facility] Misc.on 06-16-2024 [facility] Misc. COMMENT Normal . [facility] Comment on above: Order Comment: [id number] 0PORPHYRINS URINE/PROTECTFROMLI Result Comment: Perf ormed at: [facility] [facility] [id number] [place], [place] [id number] Director: Maico Ascencio PhD, Phone: [phone] Performed By: #### L 3410.9998 ####[facility] [address] [place], [address] ARTIE serumOrdered By: Angelica Saleh on 06-14-2024 Anti-Nuclear Antibody Screen Negative Negative [facility] Comment on above: Performed at: [place] [id number] Director: Maico Ascencio PhD, Phone: [phone] Absolute lymphocyte countOrd ered By: Angelica Saleh on 06-14-2024 Lymphocytes Auto (Unsp spec) [#/Vol] 1.19 10*3/uL 0.83-4.51 [facility] Absolute neutrophil countOrd ered By: Angelica Saleh on 06-14-2024 Neutrophils (Bld) [#/Vol] 12.3 10*3/uL High 2.0-7.7 [facility] Anion gap in Serum or Plasma Ordered By: Angelica Saleh on 06-14-2024 Anion gap [Moles/Vol] 18 mmol/L High 5-15 [facility] Automated lymphocyte count a s percentage of total leukocytesOrdered By: Angelica Saleh on 06-14-2024 Lymphocytes/100 WBC Auto (Unsp spec) 8.4 % Low 19-41 [facility] BUN/creatinine ratioOrdered By: Angelica Saleh on 06-14-2024 Urea nitrogen/Creatinine [Mass ratio] 24.2 mg/mg High 10-20 [facility] Basophil percentageOrdered B y: Angelcia Saleh on 06-14-2024 Basophils/100 WBC (Bld) 0.1 % 0-1 [facility] Bilirubin, totalOrdered By: Angelica Saleh on 06-14-2024 Bilirubin [Mass/Vol] 0.25 mg/dL 0.00-1.30 [facility] CBC W/Diff, Automatedon Absolute Lymph 1.19 X10 3/uL Normal 0.83-4.51 [facility] Comment on above: Performed By: #### L 500.4050, L101.9900, L501.6710, L3100.5440, L100.0100, L3100.5475 ####[facility] [address] [place], [address] Absolute Neut 12.3 X10 3/uL High 2.0-7.7 [facility] Comment on above: Performed By: #### L 500.4050, L101.9900, L501.6710, L3100.5440, L100.0100, L3100.5475 ####[facility] [address] [place], [address] Basophils/100 WBC (Bld) 0.1 % Normal 0-1 [facility] Comment on above: Performed By: #### L 500.4050, L101.9900, L501.6710, L3100.5440, L100.0100, L3100.5475 ####[facility] [address] [place], [address] Eosinophils/100 WBC (Bld) 0.1 % Normal 0-5 [facility] Comment on above: Performed By: #### L 500.4050, L101.9900, L501.6710, L3100.5440, L100.0100, L3100.5475 ####[facility] [address] [place], [address] Erythrocyte distribution width (RBC) [Ratio] 16.5 % High 11.6-14.6 [facility] Comment on above: Performed By: #### L 500.4050, L101.9900, L501.6710, L3100.5440, L100.0100, L3100.5475 ####[facility] [address] [place], [address] Hematocrit (Bld) [Volume fraction] 37.0 % Low 40-54 [facility] Comment on above: Performed By: #### L 500.4050, L101.9900, L501.6710, L3100.5440, L100.0100, L3100.5475 ####[facility] [address] [place], [address] Hemoglobin (Bld) [Mass/Vol] 11.9 g/dL Low 13.0-16.5 [facility] Comment on above: Performed By: #### L 500.4050, L101.9900, L501.6710, L3100.5440, L100.0100, L3100.5475 ####[facility] [address] [place], [address] IG% 1.200 High 0.0-0.9 [facility] Comment on above: Result Comment: IG% - Immature Granulocytes (promyelocytes, myelocytes andmetamyelocytes) > 1% indicates that a LEFT SHIFT is Present. Performed By: #### L 500.4050, L101.9900, L501.6710, L3100.5440, L100.0100, L3100.5475 ####[facility] [address] [place], [address] Lymphocytes/100 WBC (Bld) 8.4 % Low 19-41 [facility] Comment on above: Performed By: #### L 500.4050, L101.9900, L501.6710, L3100.5440, L100.0100, L3100.5475 ####[facility] [address] [place], [address] MCH (RBC) [Entitic mass] 27.9 pg Normal 27.0-32.0 [facility] Comment on above: Performed By: #### L 500.4050, L101.9900, L501.6710, L3100.5440, L100.0100, L3100.5475 ####[facility] [address] [place], [address] MCHC (RBC) [Mass/Vol] 32.2 g/dL Normal 32-36 [facility] Comment on above: Performed By: #### L 500.4050, L101.9900, L501.6710, L3100.5440, L100.0100, L3100.5475 ####[facility] [address] [place], [address] MCV (RBC) [Entitic vol] 86.9 fL Normal 80-94 [facility] Comment on above: Performed By: #### L 500.4050, L101.9900, L501.6710, L3100.5440, L100.0100, L3100.5475 ####[facility] [address] [place], [address] Monocytes/100 WBC (Bld) 3.6 % Normal 0-10 [facility] Comment on above: Performed By: #### L 500.4050, L101.9900, L501.6710, L3100.5440, L100.0100, L3100.5475 ####[facility] [address] [place], [address] Neutrophils/100 WBC (Bld) 86.6 % High 47-70 [facility] Comment on above: Performed By: #### L 500.4050, L101.9900, L501.6710, L3100.5440, L100.0100, L3100.5475 ####[facility] [address] [place], [address] Nucleated RBC (Bld) [#/Vol] 0 10*3/uL Normal 0-5 [facility] Comment on above: Performed By: #### L 500.4050, L101.9900, L501.6710, L3100.5440, L100.0100, L3100.5475 ####[facility] [address] [place], [address] Platelet mean volume (Bld) [Entitic vol] 9.9 fL Normal 6.2-12.0 [facility] Comment on above: Performed By: #### L 500.4050, L101.9900, L501.6710, L3100.5440, L100.0100, L3100.5475 ####[facility] [address] [place], [address] Platelets (Bld) [#/Vol] 250 10*3/uL Normal 150-450 [facility] Comment on above: Performed By: #### L 500.4050, L101.9900, L501.6710, L3100.5440, L100.0100, L3100.5475 ####[facility] [address] [place], [address] RBC (Bld) [#/Vol] 4.26 10*6/uL Low 4.6-6.2 [facility] Comment on above: Performed By: #### L 500.4050, L101.9900, L501.6710, L3100.5440, L100.0100, L3100.5475 ####[facility] [address] [place], [address] RDW SD 51.6 fl High 35.1-43.9 [facility] Comment on above: Performed By: #### L 500.4050, L101.9900, L501.6710, L3100.5440, L100.0100, L3100.5475 ####[facility] [address] [place], [address] WBC (Bld) [#/Vol] 14.2 10*3/uL High 4.4-11.0 [facility] Comment on above: Performed By: #### L 500.4050, L101.9900, L501.6710, L3100.5440, L100.0100, L3100.5475 ####[facility] [address] [place], [place], [id number] CRPon 06-14-2024 C-REACTIVE PROT 33.80 mg/L High 0.0-3.0 [facility] Comment on above: Performed By: #### L 500.4050, L101.9900, L501.6710, L3100.5440, L100.0100, L3100.5475 ####[facility] [address] [place], [place], [id number] CRP [Mass/Vol]Ordered By: Wilner Saleh on 06-14-2024 C-Reactive Protein Extended Range 33.80 mg/L High 0.0-3.0 [facility] Carbon dioxide, total [Moles /volume] in Central venous bloodOrdered By: Angelica Saleh on 06-14-2024 CO2 [Moles/Vol] 23.4 mmol/L 21.0-32.0 [facility] Centromere B antibody assayO rdered By: Angelica Saleh on 06-14-2024 Centromere B Antibody <0.2 AI 0.0-0.9 [facility] Comment on above: Previous reported re sult: TNP AIEdited by: ESTEVAN on 06/16/24:1308 AMENDED REPORT 06/16/24 1308 ANTI-CENT B previously reported as: Test not performed Chloride assayOrdered By: Wilner Saleh on 06-14-2024 Chloride [Moles/Vol] 92 mmol/L Low 98-108 [facility] Chromatin antibody assayOrde red By: Angelica Saleh on 06-14-2024 Antichromatin Antibodies <0.2 AI 0.0-0.9 [facility] Comment on above: Previous reported re sult: TNP AIEdited by: ESTEVAN on 06/16/24:1308 AMENDED REPORT 06/16/24 1308 ANTICHROMATIN previously reported as: Test not performed Comprehensive Metabolic Prof ilon 06-14-2024 Albumin [Mass/Vol] 4.0 g/dL Normal 3.4-4.8 [facility] Comment on above: Performed By: #### L 500.4050, L101.9900, L501.6710, L3100.5440, L100.0100, L3100.5475 ####[facility] [address] [place], [address] Albumin/Globulin [Mass ratio] 1.0 {ratio} Normal 0.9-2.4 [facility] Comment on above: Performed By: #### L 500.4050, L101.9900, L501.6710, L3100.5440, L100.0100, L3100.5475 ####[facility] [address] [place], [address] ALK PHOS 84 U/L Normal 40-129 [facility] Comment on above: Performed By: #### L 500.4050, L101.9900, L501.6710, L3100.5440, L100.0100, L3100.5475 ####[facility] [address] [place], [address] ALT [Catalytic activity/Vol] 18 U/L Normal <=46 [facility] Comment on above: Performed By: #### L 500.4050, L101.9900, L501.6710, L3100.5440, L100.0100, L3100.5475 ####[facility] [address] [place], [address] AST [Catalytic activity/Vol] 12 U/L Normal <=37 [facility] Comment on above: Performed By: #### L 500.4050, L101.9900, L501.6710, L3100.5440, L100.0100, L3100.5475 ####[facility] [address] [place], [address] Bilirubin [Mass/Vol] 0.25 mg/dL Normal 0.00-1.30 [facility] Comment on above: Performed By: #### L 500.4050, L101.9900, L501.6710, L3100.5440, L100.0100, L3100.5475 ####[facility] [address] [place], [address] BUN/CRE 24.2 RATIO High 10-20 [facility] Comment on above: Performed By: #### L 500.4050, L101.9900, L501.6710, L3100.5440, L100.0100, L3100.5475 ####[facility] [address] [place], [address] Calcium [Mass/Vol] 10.1 mg/dL Normal 7.6-11.0 [facility] Comment on above: Performed By: #### L 500.4050, L101.9900, L501.6710, L3100.5440, L100.0100, L3100.5475 ####[facility] [address] [place], [address] Chloride [Moles/Vol] 92 mmol/L Low 98-108 [facility] Comment on above: Performed By: #### L 500.4050, L101.9900, L501.6710, L3100.5440, L100.0100, L3100.5475 ####[facility] [address] [place], [address] CO2 [Moles/Vol] 23.4 mmol/L Normal 21.0-32.0 [facility] Comment on above: Performed By: #### L 500.4050, L101.9900, L501.6710, L3100.5440, L100.0100, L3100.5475 ####[facility] [address] [place], [address] Creatinine [Mass/Vol] 0.98 mg/dL Normal 0.70-1.20 [facility] Comment on above: Performed By: #### L 500.4050, L101.9900, L501.6710, L3100.5440, L100.0100, L3100.5475 ####[facility] [address] [place], [address] GAP 18 High 5-15 [facility] Comment on above: Performed By: #### L 500.4050, L101.9900, L501.6710, L3100.5440, L100.0100, L3100.5475 ####[facility] [address] [place], [address] GFR/1.73 sq M.predicted among non-blacks MDRD (S/P/Bld) [Vol rate/Area] 84 mL/min/{1.73_m2} Normal >60 [facility] Comment on above: Result Comment: mL/m in/1.73m2 CKD-EPI Creatinine Equation (2020) Performed By: #### L 500.4050, L101.9900, L501.6710, L3100.5440, L100.0100, L3100.5475 ####[facility] [address] [place], [address] Globulin (S) [Mass/Vol] 4.0 g/dL Normal 2.2-4.2 [facility] Comment on above: Performed By: #### L 500.4050, L101.9900, L501.6710, L3100.5440, L100.0100, L3100.5475 ####[facility] [address] [place], [address] Glucose [Mass/Vol] 360 mg/dL High 70-99 [facility] Comment on above: Performed By: #### L 500.4050, L101.9900, L501.6710, L3100.5440, L100.0100, L3100.5475 ####[facility] [address] [place], [address] Potassium [Moles/Vol] 4.5 mmol/L Normal 3.3-5.1 [facility] Comment on above: Performed By: #### L 500.4050, L101.9900, L501.6710, L3100.5440, L100.0100, L3100.5475 ####[facility] [address] [place], [address] Sodium [Moles/Vol] 133 mmol/L Normal 133-145 [facility] Comment on above: Performed By: #### L 500.4050, L101.9900, L501.6710, L3100.5440, L100.0100, L3100.5475 ####[facility] [address] [place], [address] T PROT 7.9 g/dL Normal 5.9-8.4 [facility] Comment on above: Performed By: #### L 500.4050, L101.9900, L501.6710, L3100.5440, L100.0100, L3100.5475 ####[facility] [address] [place], [address] Urea nitrogen [Mass/Vol] 24 mg/dL High 4-19 [facility] Comment on above: Performed By: #### L 500.4050, L101.9900, L501.6710, L3100.5440, L100.0100, L3100.5475 ####[facility] [address] [place], [address] DNA double strand Ab Qn (S)O rdered By: Angelica Saleh on 06-14-2024 Anti-Double Strand DNA Antibody 2 IU/mL 0-9 [facility] Comment on above: Negative <5 Equivoca l 5 - 9 Positive >9Previous reported result: TNP IU/mLEdited by: ESTEVAN on 06/16/24:1308 AMENDED REPORT 06/16/24 1308 dsDNA AB previously reported as: Test not performed Eosinophil percentageOrdered By: Angelica Saleh on 04-02-2025 Eosinophils/100 WBC (Bld) 0.1 % 0-5 [facility] Erythrocyte Sed Rateon 06-14 SED RATE 34 mm/hr High 0-20 [facility] Comment on above: Performed By: #### L 500.4050, L101.9900, L501.6710, L3100.5440, L100.0100, L3100.5475 ####[facility] [address] [place], [address] Erythrocyte distribution wid th (RBC) [Ratio]Ordered By: Angelica Saleh on 06-14-2024 Erythrocyte distribution width (RBC) [Entitic vol] 51.6 fL High 35.1-43.9 [facility] Erythrocyte distribution wid th ratioOrdered By: Angelica Saleh on 06-14-2024 Erythrocyte distribution width (RBC) [Ratio] 16.5 % High 11.6-14.6 [facility] Erythrocyte distribution wid th standard deviationOrdered By: Angelica Saleh on 06-14-2024 Erythrocyte distribution width (RBC) [Ratio] 51.6 fl High 35.1-43.9 [facility] Erythrocyte sedimentation ra teOrdered By: Angelica Saleh on 06-14-2024 ESR (Bld) [Velocity] 34 mm/h High 0-20 [facility] GFR/1.73 sq M.predicted ana g non-blacks MDRD (S/P/Bld) [Vol rate/Area]Ordered By: Angelica Saleh on 06-14-2024 Estimated GFR (MDRD) Non-Af Amer 84 >60 [facility] Comment on above: mL/min/1.73m2 CKD-EP I Creatinine Equation (2020) Glomerular filtration rate ( GFR) estimation/1.73 sq m using serum, plasma, or whole bOrdered By: Angelica Saleh on 06-14-2024 GFR/1.73 sq M.predicted among non-blacks MDRD (S/P/Bld) [Vol rate/Area] 84 mL/min/{1.73_m2} >60 [facility] Comment on above: mL/min/1.73m2 CKD-EP I Creatinine Equation (2020) Hematocrit Auto (Bld) [Volum e fraction]Ordered By: Angelica Saleh on 06-14-2024 Hematocrit (Bld) [Volume fraction] 37.0 % Low 40-54 [facility] Hemoglobin measurementOrdere d By: Angelica aSleh on 06-14-2024 Hemoglobin (Bld) [Mass/Vol] 11.9 g/dL Low 13.0-16.5 [facility] Immature granulocytes/100 WB C Auto (Bld)Ordered By: Angelica Saleh on 06-14-2024 Immature granulocytes/100 WBC (Bld) 1.200 % High 0.0-0.9 [facility] Comment on above: IG% - Immature Granu locytes (promyelocytes, myelocytes and metamyelocytes) > 1% indicates that a LEFT SHIFT is Present. Alethea-1 antibody assayOrdered B y: Angelica Saleh on 06-14-2024 ALETHEA-1 Antibody <0.2 AI 0.0-0.9 [facility] Comment on above: Previous reported re sult: TNP AIEdited by: ESTEVAN on 06/16/24:1308 AMENDED REPORT 06/16/24 1308 ANTI-ALETHEA previously reported as: Test not performed Laboratory - Chemistry and C hemistry - challengeOrdered By: Angelica Saleh on 06-14-2024 AST [Catalytic activity/Vol] 12 U/L <38 [facility] Lymphocytes Auto (Unsp spec) [#/Vol]Ordered By: Angelica Saleh on 06-14-2024 Lymphocytes (Bld) [#/Vol] 1.19 10*3/uL 0.83-4.51 [facility] Lymphocytes/100 WBC Auto (Un sp spec)Ordered By: Angelica Saleh on 06-14-2024 Lymphocytes/100 WBC (Bld) 8.4 % Low 19-41 [facility] MCV (mean corpuscular volume ) determinationOrdered By: Angelica Saleh on 06-14-2024 MCV (RBC) [Entitic vol] 86.9 fL 80-94 [facility] Mean corpuscular hemoglobin (MCH) determinationOrdered By: Angelica Saleh on 06-14-2024 MCH (RBC) [Entitic mass] 27.9 pg 27.0-32.0 [facility] Mean corpuscular hemoglobin concentration (MCHC) determinationOrdered By: Angelica Saleh on 06-14-2024 MCHC (RBC) [Mass/Vol] 32.2 g/dL 32-36 [facility] Mean platelet volume determi nationOrdered By: Angelica Saleh on 06-14-2024 Platelet mean volume (Bld) [Entitic vol] 9.9 fL 6.2-12.0 [facility] Monocyte percentageOrdered B y: Angelica Saleh on 06-14-2024 Monocytes/100 WBC (Bld) 3.6 % 0-10 [facility] Neutrophil percentageOrdered By: Angelica Saleh on 06-14-2024 Neutrophils/100 WBC (Bld) 86.6 % High 47-70 [facility] No Panel InformationOrdered By: Angelica Saleh on 06-14-2024 12 U/L <38 [facility] Nucleated red blood cell per centageOrdered By: Angelica Saleh on 06-14-2024 Nucleated RBC/100 WBC (Bld) [Ratio] 0 % 0-5 [facility] Platelet countOrdered By: Wilner Saleh on 06-14-2024 Platelets (Bld) [#/Vol] 250 10*3/uL 150-450 [facility] Potassium (Unsp spec) [Mass/ Vol]Ordered By: Angelica Saleh on 06-14-2024 Potassium [Moles/Vol] 4.5 mmol/L 3.3-5.1 [facility] Potassium measurement (mass/ volume)Ordered By: Angelica Saleh on 06-14-2024 Potassium (Unsp spec) [Mass/Vol] 4.5 mmol/L 3.3-5.1 [facility] RBC Auto (Bld) [#/Vol]Ordere d By: Angelica Saleh on 06-14-2024 RBC (Bld) [#/Vol] 4.26 10*6/uL Low 4.6-6.2 [facility] ENGINEERING AND DEVELOPMENT DIRECTOR abOrdered By: Angelica laguerre on 06-14-2024 ENGINEERING AND DEVELOPMENT DIRECTOR Antibody <0.2 AI 0.0-0.9 [facility] Comment on above: Previous reported re sult: TNP AIEdited by: ESTEVAN on 06/16/24:1308 AMENDED REPORT 06/16/24 1308 ENGINEERING AND DEVELOPMENT DIRECTOR Ab previously reported as: Test not performed SCL-70 extractable nuclear A b Qn (S)Ordered By: Angelica Saleh on 06-14-2024 Scl-70 (Scleroderma) Antibody <0.2 AI 0.0-0.9 [facility] Comment on above: Previous reported re sult: TNP AIEdited by: ESTEVAN on 06/16/24:1308 AMENDED REPORT 06/16/24 1308 ANTISCLER previously reported as: Test not performed SS-A IgG antibody assayOrder ed By: Angelica Saleh on 06-14-2024 SS-A/Ro IgG Antibody < 0.2 AI 0.0-0.9 [facility] Comment on above: Previous reported re sult: TNP AIEdited by: ESTEVAN on 06/16/24:1308 AMENDED REPORT 06/16/24 1308 Anti-SS-A previously reported as: Test not performed SS-B IgG antibody assayOrder ed By: Angelica Saleh on 06-14-2024 SS-B/La IgG Antibody < 0.2 AI 0.0-0.9 [facility] Comment on above: Previous reported re sult: TNP AIEdited by: ESTEVAN on 06/16/24:1308 AMENDED REPORT 06/16/24 1308 Anti-SS-B previously reported as: Test not performed Serum DNA double strand anti body assay (units/volume)Ordered By: Angelica Saleh on 06-14-2024 DNA double strand Ab Qn (S) 2 [IU]/mL 0-9 [facility] Comment on above: Negative <5 Equivoca l 5 - 9 Positive >9Previous reported result: TNP IU/mLEdited by: ESTEVAN on 06/16/24:1308 AMENDED REPORT 06/16/24 1308 dsDNA AB previously reported as: Test not performed Serum Scl-70 antibody assay (units/volume)Ordered By: Angelica Saleh on 06-14-2024 SCL-70 extractable nuclear Ab Qn (S) <0.2 AI 0.0-0.9 [facility] Comment on above: Previous reported re sult: TNP AIEdited by: ESTEVAN on 06/16/24:1308 AMENDED REPORT 06/16/24 1308 ANTISCLER previously reported as: Test not performed Serum creatinine measurement (mass/volume)Ordered By: Angelica Saleh on 06-14-2024 Creatinine [Mass/Vol] 0.98 mg/dL 0.70-1.20 [facility] Serum globulin measurementOr dered By: Angelica Saleh on 06-14-2024 Globulin (S) [Mass/Vol] 4.0 g/dL 2.2-4.2 [facility] Serum glucose measurement (m ass/volume)Ordered By: Angelica Saleh on 06-14-2024 Glucose [Mass/Vol] 360 mg/dL High 70-99 [facility] Serum or plasma C reactive p rotein measurement (mass/volume)Ordered By: Angelica Saleh on 06-14-2024 CRP [Mass/Vol] 33.80 mg/L High 0.0-3.0 [facility] Serum or plasma alanine delaney otransferase (ALT) measurementOrdered By: Angelica Saleh on 06-14-2024 ALT [Catalytic activity/Vol] 18 U/L <47 [facility] Serum or plasma albumin alfreda urement (mass/volume)Ordered By: Angelica Saleh on 06-14-2024 Albumin [Mass/Vol] 4.0 g/dL 3.4-4.8 [facility] Serum or plasma albumin/glob ulin mass ratioOrdered By: Angelica Saleh on 06-14-2024 Albumin/Globulin [Mass ratio] 1.0 {ratio} 0.9-2.4 [facility] Serum or plasma alkaline debby sphatase measurementOrdered By: Angelica Saleh on 06-14-2024 ALP [Catalytic activity/Vol] 84 U/L 40-129 [facility] Serum or plasma calcium alfreda urement (mass/volume)Ordered By: Angelica Saleh on 06-14-2024 Calcium [Mass/Vol] 10.1 mg/dL 7.6-11.0 [facility] Serum or plasma urea nitroge n measurement (mass/volume)Ordered By: Angelica Saleh on 06-14-2024 Urea nitrogen [Mass/Vol] 24 mg/dL High 4-19 [facility] Gray antibody assayOrdered By: Angelica Saleh on 06-14-2024 SM Antibody <0.2 AI 0.0-0.9 [facility] Comment on above: Previous reported re sult: TNP AIEdited by: ESTEVAN on 06/16/24:1308 AMENDED REPORT 06/16/24 1308 HANNA Ab previously reported as: Test not performed Sodium levelOrdered By: Beatriz Saleh on 06-14-2024 Sodium [Moles/Vol] 133 mmol/L 133-145 [facility] Total proteinOrdered By: Stone Saleh on 06-14-2024 Protein [Mass/Vol] 7.9 g/dL 5.9-8.4 [facility] White blood cell (WBC) count Ordered By: Angelica Saleh on 06-14-2024 WBC (Bld) [#/Vol] 14.2 10*3/uL High 4.4-11.0 [facility] Abdomen/Pelvis W IV Cont ONL Yon 06-09-2024 Abdomen/Pelvis W IV Cont ONLY Normal [facility] Absolute lymphocyte countOrd ered By: ED PROVIDER on 06-09-2024 Lymphocytes Auto (Unsp spec) [#/Vol] 1.41 10*3/uL 0.83-4.51 [facility] Absolute neutrophil countOrd ered By: ED PROVIDER on 06-09-2024 Neutrophils (Bld) [#/Vol] 10.7 10*3/uL High 2.0-7.7 [facility] Anion gap in Serum or Plasma Ordered By: ED PROVIDER on 06-09-2024 Anion gap [Moles/Vol] 15 mmol/L 5-15 [facility] Automated lymphocyte count a s percentage of total leukocytesOrdered By: ED PROVIDER on 06-09-2024 Lymphocytes/100 WBC Auto (Unsp spec) 10.9 % Low 19-41 [facility] BUN/creatinine ratioOrdered By: ED PROVIDER on 06-09-2024 Urea nitrogen/Creatinine [Mass ratio] 20.3 mg/mg High 10-20 [facility] Basophil percentageOrdered B y: ED PROVIDER on 06-09-2024 Basophils/100 WBC (Bld) 0.2 % 0-1 [facility] Bilirubin, totalOrdered By: ED PROVIDER on 06-09-2024 Bilirubin [Mass/Vol] 0.21 mg/dL 0.00-1.30 [facility] CBC W/Diff, Automatedon 05-14 Absolute Lymph 1.41 X10 3/uL Normal 0.83-4.51 [facility] Comment on above: Performed By: #### L 501.2450, L500.4050, L100.0100 ####[facility] [address] [place], [address] Absolute Neut 10.7 X10 3/uL High 2.0-7.7 [facility] Comment on above: Performed By: #### L 501.2450, L500.4050, L100.0100 ####[facility] [address] [place], [address] Basophils/100 WBC (Bld) 0.2 % Normal 0-1 [facility] Comment on above: Performed By: #### L 501.2450, L500.4050, L100.0100 ####[facility] [address] [place], [address] Eosinophils/100 WBC (Bld) 0.2 % Normal 0-5 [facility] Comment on above: Performed By: #### L 501.2450, L500.4050, L100.0100 ####[facility] [address] [place], [address] Erythrocyte distribution width (RBC) [Ratio] 16.1 % High 11.6-14.6 [facility] Comment on above: Performed By: #### L 501.2450, L500.4050, L100.0100 ####[facility] [address] [place], [address] Hematocrit (Bld) [Volume fraction] 34.6 % Low 40-54 [facility] Comment on above: Performed By: #### L 501.2450, L500.4050, L100.0100 ####[facility] [address] [place], [address] Hemoglobin (Bld) [Mass/Vol] 11.1 g/dL Low 13.0-16.5 [facility] Comment on above: Performed By: #### L 501.2450, L500.4050, L100.0100 ####[facility] [address] [place], [address] IG% 0.800 Normal 0.0-0.9 [facility] Comment on above: Result Comment: IG% - Immature Granulocytes (promyelocytes, myelocytes andmetamyelocytes) > 1% indicates that a LEFT SHIFT is Present. Performed By: #### L 501.2450, L500.4050, L100.0100 ####[facility] [address] [place], [address] Lymphocytes/100 WBC (Bld) 10.9 % Low 19-41 [facility] Comment on above: Performed By: #### L 501.2450, L500.4050, L100.0100 ####[facility] [address] [place], [address] MCH (RBC) [Entitic mass] 28.2 pg Normal 27.0-32.0 [facility] Comment on above: Performed By: #### L 501.2450, L500.4050, L100.0100 ####[facility] [address] [place], [address] MCHC (RBC) [Mass/Vol] 32.1 g/dL Normal 32-36 [facility] Comment on above: Performed By: #### L 501.2450, L500.4050, L100.0100 ####[facility] [address] [place], [address] MCV (RBC) [Entitic vol] 87.8 fL Normal 80-94 [facility] Comment on above: Performed By: #### L 501.2450, L500.4050, L100.0100 ####[facility] [address] [place], [address] Monocytes/100 WBC (Bld) 5.3 % Normal 0-10 [facility] Comment on above: Performed By: #### L 501.2450, L500.4050, L100.0100 ####[facility] [address] [place], [address] Neutrophils/100 WBC (Bld) 82.6 % High 47-70 [facility] Comment on above: Performed By: #### L 501.2450, L500.4050, L100.0100 ####[facility] [address] [place], [address] Nucleated RBC (Bld) [#/Vol] 0 10*3/uL Normal 0-5 [facility] Comment on above: Performed By: #### L 501.2450, L500.4050, L100.0100 ####[facility] [address] [place], [address] Platelet mean volume (Bld) [Entitic vol] 9.3 fL Normal 6.2-12.0 [facility] Comment on above: Performed By: #### L 501.2450, L500.4050, L100.0100 ####[facility] [address] [place], [address] Platelets (Bld) [#/Vol] 249 10*3/uL Normal 150-450 [facility] Comment on above: Performed By: #### L 501.2450, L500.4050, L100.0100 ####[facility] [address] [place], [address] RBC (Bld) [#/Vol] 3.94 10*6/uL Low 4.6-6.2 [facility] Comment on above: Performed By: #### L 501.2450, L500.4050, L100.0100 ####[facility] [address] [place], [address] RDW SD 51.3 fl High 35.1-43.9 [facility] Comment on above: Performed By: #### L 501.2450, L500.4050, L100.0100 ####[facility] [address] [place], [address] WBC (Bld) [#/Vol] 12.9 10*3/uL High 4.4-11.0 [facility] Comment on above: Performed By: #### L 501.2450, L500.4050, L100.0100 ####[facility] [address] [place], [address] Carbon dioxide, total [Moles /volume] in Central venous bloodOrdered By: ED PROVIDER on 06-09-2024 CO2 [Moles/Vol] 22.1 mmol/L 21.0-32.0 [facility] Chloride assayOrdered By: ED PROVIDER on 06-09-2024 Chloride [Moles/Vol] 94 mmol/L Low 98-108 [facility] Comprehensive Metabolic Prof ilon 06-09-2024 Albumin [Mass/Vol] 3.8 g/dL Normal 3.4-4.8 [facility] Comment on above: Performed By: #### L 501.2450, L500.4050, L100.0100 ####[facility] [address] [place], [address] Albumin/Globulin [Mass ratio] 0.9 {ratio} Normal 0.9-2.4 [facility] Comment on above: Performed By: #### L 501.2450, L500.4050, L100.0100 ####[facility] [address] [place], [address] ALK PHOS 81 U/L Normal 40-129 [facility] Comment on above: Performed By: #### L 501.2450, L500.4050, L100.0100 ####[facility] [address] [place], [address] ALT [Catalytic activity/Vol] 13 U/L Normal <=46 [facility] Comment on above: Performed By: #### L 501.2450, L500.4050, L100.0100 ####[facility] [address] [place], [address] AST [Catalytic activity/Vol] 11 U/L Normal <=37 [facility] Comment on above: Performed By: #### L 501.2450, L500.4050, L100.0100 ####[facility] [address] [place], [address] Bilirubin [Mass/Vol] 0.21 mg/dL Normal 0.00-1.30 [facility] Comment on above: Performed By: #### L 501.2450, L500.4050, L100.0100 ####[facility] [address] [place], [address] BUN/CRE 20.3 RATIO High 10-20 [facility] Comment on above: Performed By: #### L 501.2450, L500.4050, L100.0100 ####[facility] [address] [place], [address] Calcium [Mass/Vol] 10.3 mg/dL Normal 7.6-11.0 [facility] Comment on above: Performed By: #### L 501.2450, L500.4050, L100.0100 ####[facility] [address] [place], [address] Chloride [Moles/Vol] 94 mmol/L Low 98-108 [facility] Comment on above: Performed By: #### L 501.2450, L500.4050, L100.0100 ####[facility] [address] [place], [address] CO2 [Moles/Vol] 22.1 mmol/L Normal 21.0-32.0 [facility] Comment on above: Performed By: #### L 501.2450, L500.4050, L100.0100 ####[facility] [address] [place], [address] Creatinine [Mass/Vol] 1.05 mg/dL Normal 0.70-1.20 [facility] Comment on above: Performed By: #### L 501.2450, L500.4050, L100.0100 ####[facility] [address] [place], [address] GAP 15 Normal 5-15 [facility] Comment on above: Performed By: #### L 501.2450, L500.4050, L100.0100 ####[facility] [address] [place], [address] GFR/1.73 sq M.predicted among non-blacks MDRD (S/P/Bld) [Vol rate/Area] 77 mL/min/{1.73_m2} Normal >60 [facility] Comment on above: Result Comment: mL/m in/1.73m2 CKD-EPI Creatinine Equation (2020) Performed By: #### L 501.2450, L500.4050, L100.0100 ####[facility] [address] [place], [address] Globulin (S) [Mass/Vol] 4.2 g/dL Normal 2.2-4.2 [facility] Comment on above: Performed By: #### L 501.2450, L500.4050, L100.0100 ####[facility] [address] [place], [address] Glucose [Mass/Vol] 289 mg/dL High 70-99 [facility] Comment on above: Performed By: #### L 501.2450, L500.4050, L100.0100 ####[facility] [address] [place], [address] Potassium [Moles/Vol] 5.3 mmol/L High 3.3-5.1 [facility] Comment on above: Performed By: #### L 501.2450, L500.4050, L100.0100 ####[facility] [address] [place], [address] Sodium [Moles/Vol] 131 mmol/L Low 133-145 [facility] Comment on above: Performed By: #### L 501.2450, L500.4050, L100.0100 ####[facility] [address] [place], [address] T PROT 8.0 g/dL Normal 5.9-8.4 [facility] Comment on above: Performed By: #### L 501.2450, L500.4050, L100.0100 ####[facility] [address] [place], [address] Urea nitrogen [Mass/Vol] 21 mg/dL High 4-19 [facility] Comment on above: Performed By: #### L 501.2450, L500.4050, L100.0100 ####[facility] [address] [place], [address] Emergency Department Summary on 06-09-2024 Emergency Department Summary Normal [facility] Eosinophil percentageOrdered By: ED PROVIDER on 06-09-2024 Eosinophils/100 WBC (Bld) 0.2 % 0-5 [facility] Erythrocyte distribution wid th ratioOrdered By: ED PROVIDER on 06-09-2024 Erythrocyte distribution width (RBC) [Ratio] 16.1 % High 11.6-14.6 [facility] Erythrocyte distribution wid th standard deviationOrdered By: ED PROVIDER on 06-09-2024 Erythrocyte distribution width (RBC) [Entitic vol] 51.3 fL High 35.1-43.9 [facility] Erythrocyte distribution width (RBC) [Ratio] 51.3 fl High 35.1-43.9 [facility] GFR/1.73 sq M.predicted ana g non-blacks MDRD (S/P/Bld) [Vol rate/Area]Ordered By: ED PROVIDER on 06-09-2024 Estimated GFR (MDRD) Non-Af Amer 77 >60 [facility] Comment on above: mL/min/1.73m2 CKD-EP I Creatinine Equation (2020) Glomerular filtration rate ( GFR) estimation/1.73 sq m using serum, plasma, or whole bOrdered By: ED PROVIDER on 06-09-2024 GFR/1.73 sq M.predicted among non-blacks MDRD (S/P/Bld) [Vol rate/Area] 77 mL/min/{1.73_m2} >60 [facility] Comment on above: mL/min/1.73m2 CKD-EP I Creatinine Equation (2020) Hematocrit Auto (Bld) [Volum e fraction]Ordered By: ED PROVIDER on 06-09-2024 Hematocrit (Bld) [Volume fraction] 34.6 % Low 40-54 [facility] Hemoglobin measurementOrdere d By: ED PROVIDER on 06-09-2024 Hemoglobin (Bld) [Mass/Vol] 11.1 g/dL Low 13.0-16.5 [facility] Immature granulocytes/100 WB C Auto (Bld)Ordered By: ED PROVIDER on 06-09-2024 Immature granulocytes/100 WBC (Bld) 0.800 % 0.0-0.9 [facility] Comment on above: IG% - Immature Granu locytes (promyelocytes, myelocytes and metamyelocytes) > 1% indicates that a LEFT SHIFT is Present. Laboratory - Chemistry and C hemistry - challengeOrdered By: ED PROVIDER on 06-09-2024 AST [Catalytic activity/Vol] 11 U/L <38 [facility] Lipaseon 06-09-2024 Lipase [Catalytic activity/Vol] 46 U/L Normal 13-75 [facility] Comment on above: Result Comment: Bettina kelly note:LIPASE revised reference range effective 22.New Lipase methodology. Expected to produce lower valuesthan the previous assay method.NEW Reference Range: 13 - 75 U/L Performed By: #### L 501.2450, L500.4050, L100.0100 ####[facility] [address] [place], [address] Lipase measurementOrdered By : ED PROVIDER on 06-09-2024 Lipase [Catalytic activity/Vol] 46 U/L 13-75 [facility] Comment on above: Please note:LIPASE r evised reference range effective 22. New Lipase methodology. Expected to produce lower values than the previous assay method. NEW Reference Range: 13 - 75 U/L Lymphocytes Auto (Unsp spec) [#/Vol]Ordered By: ED PROVIDER on 06-09-2024 Lymphocytes (Bld) [#/Vol] 1.41 10*3/uL 0.83-4.51 [facility] Lymphocytes/100 WBC Auto (Un sp spec)Ordered By: ED PROVIDER on 06-09-2024 Lymphocytes/100 WBC (Bld) 10.9 % Low 19-41 [facility] MCV (mean corpuscular volume ) determinationOrdered By: ED PROVIDER on 06-09-2024 MCV (RBC) [Entitic vol] 87.8 fL 80-94 [facility] Mean corpuscular hemoglobin (MCH) determinationOrdered By: ED PROVIDER on 06-09-2024 MCH (RBC) [Entitic mass] 28.2 pg 27.0-32.0 [facility] Mean corpuscular hemoglobin concentration (MCHC) determinationOrdered By: ED PROVIDER on 06-09-2024 MCHC (RBC) [Mass/Vol] 32.1 g/dL 32-36 [facility] Mean platelet volume determi nationOrdered By: ED PROVIDER on 06-09-2024 Platelet mean volume (Bld) [Entitic vol] 9.3 fL 6.2-12.0 [facility] Monocyte percentageOrdered B y: ED PROVIDER on 06-09-2024 Monocytes/100 WBC (Bld) 5.3 % 0-10 [facility] Neutrophil percentageOrdered By: ED PROVIDER on 06-09-2024 Neutrophils/100 WBC (Bld) 82.6 % High 47-70 [facility] No Panel InformationOrdered By: ED PROVIDER on 06-09-2024 11 U/L <38 [facility] Nucleated red blood cell per centageOrdered By: ED PROVIDER on 06-09-2024 Nucleated RBC/100 WBC (Bld) [Ratio] 0 % 0-5 [facility] Platelet countOrdered By: ED PROVIDER on 06-09-2024 Platelets (Bld) [#/Vol] 249 10*3/uL 150-450 [facility] Potassium (Unsp spec) [Mass/ Vol]Ordered By: ED PROVIDER on 06-09-2024 Potassium [Moles/Vol] 5.3 mmol/L High 3.3-5.1 [facility] Potassium measurement (mass/ volume)Ordered By: ED PROVIDER on 06-09-2024 Potassium (Unsp spec) [Mass/Vol] 5.3 mmol/L High 3.3-5.1 [facility] RBC Auto (Bld) [#/Vol]Ordere d By: ED PROVIDER on 06-09-2024 RBC (Bld) [#/Vol] 3.94 10*6/uL Low 4.6-6.2 [facility] Serum creatinine measurement (mass/volume)Ordered By: ED PROVIDER on 06-09-2024 Creatinine [Mass/Vol] 1.05 mg/dL 0.70-1.20 [facility] Serum globulin measurementOr dered By: ED PROVIDER on 06-09-2024 Globulin (S) [Mass/Vol] 4.2 g/dL 2.2-4.2 [facility] Serum glucose measurement (m ass/volume)Ordered By: ED PROVIDER on 06-09-2024 Glucose [Mass/Vol] 289 mg/dL High 70-99 [facility] Serum or plasma alanine delaney otransferase (ALT) measurementOrdered By: ED PROVIDER on 06-09-2024 ALT [Catalytic activity/Vol] 13 U/L <47 [facility] Serum or plasma albumin alfreda urement (mass/volume)Ordered By: ED PROVIDER on 06-09-2024 Albumin [Mass/Vol] 3.8 g/dL 3.4-4.8 [facility] Serum or plasma albumin/glob ulin mass ratioOrdered By: ED PROVIDER on 06-09-2024 Albumin/Globulin [Mass ratio] 0.9 {ratio} 0.9-2.4 [facility] Serum or plasma alkaline debby sphatase measurementOrdered By: ED PROVIDER on 06-09-2024 ALP [Catalytic activity/Vol] 81 U/L 40-129 [facility] Serum or plasma calcium alfreda urement (mass/volume)Ordered By: ED PROVIDER on 06-09-2024 Calcium [Mass/Vol] 10.3 mg/dL 7.6-11.0 [facility] Serum or plasma urea nitroge n measurement (mass/volume)Ordered By: ED PROVIDER on 06-09-2024 Urea nitrogen [Mass/Vol] 21 mg/dL High 4-19 [facility] Sodium levelOrdered By: ED P CARLIN on 06-09-2024 Sodium [Moles/Vol] 131 mmol/L Low 133-145 [facility] Total proteinOrdered By: ED PROVIDER on 06-09-2024 Protein [Mass/Vol] 8.0 g/dL 5.9-8.4 [facility] White blood cell (WBC) count Ordered By: ED PROVIDER on 06-09-2024 WBC (Bld) [#/Vol] 12.9 10*3/uL High 4.4-11.0 [facility] Albumin DL <= 20 mg/L (U) [M ass/Vol]Ordered By: Latosha Renee on 06-06-2024 Urine Random Microalbumin < 12.0 mg/L NO RANGE EST. [facility] Anion gap in Serum or Plasma Ordered By: Latosha Renee on 06-06-2024 Anion gap [Moles/Vol] 16 mmol/L High 5-15 [facility] BUN/creatinine ratioOrdered By: Latosha Renee on 06-06-2024 Urea nitrogen/Creatinine [Mass ratio] 15.7 mg/mg 10-20 [facility] Bilirubin, totalOrdered By: Latosha Renee on 06-06-2024 Bilirubin [Mass/Vol] 0.30 mg/dL Normal 0.00-1.30 [facility] Comment on above: Performed By: #### L 506.0400, L502.0250, L501.9520, L500.4100, L500.4050, L506.1001, L501.9985 ####[facility] [address] [place], [address] Calculated very low density lipoprotein (VLDL) cholesterol measurementOrdered By: Latosha Renee on 06-06-2024 Calculated very low density lipoprotein (VLDL) cholesterol measurement 26 mg/dL 5-40 [facility] VLDL Cholesterol 26 mg/dL 5-40 [facility] Carbon dioxide, total [Moles /volume] in Central venous bloodOrdered By: Latosha Renee on 06-06-2024 CO2 [Moles/Vol] 20.7 mmol/L Low 21.0-32.0 [facility] Comment on above: Performed By: #### L 506.0400, L502.0250, L501.9520, L500.4100, L500.4050, L506.1001, L501.9985 ####[facility] [address] [place], [address] Chloride assayOrdered By: Vishnu Renee on 06-06-2024 Chloride [Moles/Vol] 94 mmol/L Low 98-108 [facility] Comment on above: Performed By: #### L 506.0400, L502.0250, L501.9520, L500.4100, L500.4050, L506.1001, L501.9985 ####[facility] [address] [place], [address] Comprehensive Metabolic Prof ilon 06-06-2024 ALK PHOS 61 U/L Normal 40-129 [facility] Comment on above: Performed By: #### L 506.0400, L502.0250, L501.9520, L500.4100, L500.4050, L506.1001, L501.9985 ####[facility] [address] [place], [address] BUN/CRE 15.7 RATIO Normal 10-20 [facility] Comment on above: Performed By: #### L 506.0400, L502.0250, L501.9520, L500.4100, L500.4050, L506.1001, L501.9985 ####[facility] [address] [place], [address] GAP 16 High 5-15 [facility] Comment on above: Performed By: #### L 506.0400, L502.0250, L501.9520, L500.4100, L500.4050, L506.1001, L501.9985 ####[facility] [address] [place], [address] T PROT 8.0 g/dL Normal 5.9-8.4 [facility] Comment on above: Performed By: #### L 506.0400, L502.0250, L501.9520, L500.4100, L500.4050, L506.1001, L501.9985 ####[facility] [address] [place], [address] Comprehensive Metabolic Prof ilOrdered By: Latosha Renee on 06-06-2024 AST [Catalytic activity/Vol] 12 U/L Normal <=37 [facility] Comment on above: Performed By: #### L 506.0400, L502.0250, L501.9520, L500.4100, L500.4050, L506.1001, L501.9985 ####[facility] [address] [place], [address] Creatinine Unsp time (U) [Ma ss/Vol]Ordered By: Latosha Renee on 06-06-2024 Creatinine (U) [Mass/Vol] 17.80 mg/dL Low 39.00-259. 00 [facility] GFR/1.73 sq M.predicted ana g non-blacks MDRD (S/P/Bld) [Vol rate/Area]Ordered By: Latosha Renee on 06-06-2024 Estimated GFR (MDRD) Non-Af Amer 80 >60 [facility] Comment on above: mL/min/1.73m2 CKD-EP I Creatinine Equation (2020) Glomerular filtration rate ( GFR) estimation/1.73 sq m using serum, plasma, or whole bOrdered By: Latosha Renee on 06-06-2024 GFR/1.73 sq M.predicted among non-blacks MDRD (S/P/Bld) [Vol rate/Area] 80 mL/min/{1.73_m2} Normal >60 [facility] Comment on above: mL/min/1.73m2 CKD-EP I Creatinine Equation (2020) Result Comment: mL/m in/1.73m2 CKD-EPI Creatinine Equation (2020) Performed By: #### L 506.0400, L502.0250, L501.9520, L500.4100, L500.4050, L506.1001, L501.9985 ####[facility] [address] [place], [place], [id number] Hemoglobin A1con 06-06-2024 HbA1c (Bld) [Mass fraction] 8.4 % Normal <=5.6 [facility] Comment on above: Performed By: #### L 506.0400, L502.0250, L501.9520, L500.4100, L500.4050, L506.1001, L501.9985 ####[facility] [address] [place], [address] Hemoglobin A1c percentageOrd ered By: Latosha Renee on 06-06-2024 HbA1c (Bld) [Mass fraction] 8.4 % >5.7 [facility] L506.1001on 06-06-2024 Vitamin D 25-OH 42.4 ng/mL Normal 30-100 [facility] Comment on above: Result Comment: Liya min D StatusDeficiency: <20 ng/mL (50nmol/L)Insufficiency: 20-30 ng/mL (50-75 nmol/L)Sufficiency: 30-100 ng/mL (75-250 nmol/L)Toxicity: >100 ng/mL (>250 nmol/L) Performed By: #### L 506.0400, L502.0250, L501.9520, L500.4100, L500.4050, L506.1001, L501.9985 ####[facility] [address] [place], [address] LDL calc ser/plasOrdered By: Latosha Renee on 06-06-2024 Cholesterol in LDL [Mass/Vol] 10 mg/dL Normal [facility] Comment on above: Hjihclfdni=646-724 m g/dL & Higher Qgwd=449 mg/dL or greater Result Comment: Bord ttdybk=004-545 mg/dL Higher Yxvj=170 mg/dL or greater Performed By: #### L 506.0400, L502.0250, L501.9520, L500.4100, L500.4050, L506.1001, L501.9985 ####[facility] [address] [place], [place], [id number] LDL Cholesterol, Calculated 10 mg/dL [facility] Comment on above: Nbgmiqpmda=433-055 m g/dL & Higher Ekac=145 mg/dL or greater Lipid Profileon 06-06-2024 CHOL:HDL 1.82 Normal [facility] Comment on above: Performed By: #### L 506.0400, L502.0250, L501.9520, L500.4100, L500.4050, L506.1001, L501.9985 ####[facility] [address] [place], [address] Cholesterol in VLDL [Mass/Vol] 26 mg/dL Normal 5-40 [facility] Comment on above: Performed By: #### L 506.0400, L502.0250, L501.9520, L500.4100, L500.4050, L506.1001, L501.9985 ####[facility] [address] [place], [place], [id number] Microalb:Creat Ratio,Random URon 06-06-2024 Creatinine [Mass/Vol] 17.80 mg/dL Low 39.00- 259. 00 [facility] Comment on above: Performed By: #### L 506.0400, L502.0250, L501.9520, L500.4100, L500.4050, L506.1001, L501.9985 ####[facility] [address] [place], [address] MALB:CREAT UNABLE TO CALCULATE Normal [facility] Comment on above: Performed By: #### L 506.0400, L502.0250, L501.9520, L500.4100, L500.4050, L506.1001, L501.9985 ####[facility] [address] [place], [address] MICROALBUMIN,UR < 12.0 Normal NO RANGE EST. [facility] Comment on above: Performed By: #### L 506.0400, L502.0250, L501.9520, L500.4100, L500.4050, L506.1001, L501.9985 ####[facility] [address] [place], [address] Microalbumin/creat ratio urO rdered By: Latosha Renee on 06-06-2024 Urine Microalbumin/Creatinin e Ratio UNABLE TO CALCULATE mg/g CRE [facility] Urine microalbumin/creatinin e ratio measurement UNABLE TO CALCULATE mg/g CRE [facility] No Panel InformationOrdered By: Latosha Renee on 06-06-2024 12 U/L <38 [facility] Potassium measurement (mass/ volume)Ordered By: Latosha Renee on 06-06-2024 Potassium (Unsp spec) [Mass/Vol] 4.2 mmol/L 3.3-5.1 [facility] Potassium [Moles/Vol] 4.2 mmol/L Normal 3.3-5.1 [facility] Comment on above: Performed By: #### L 506.0400, L502.0250, L501.9520, L500.4100, L500.4050, L506.1001, L501.9985 ####[facility] [address] [place], [address] Random urine creatinine alfreda urement (mass/volume)Ordered By: Latosha Renee on 06-06-2024 Creatinine Unsp time (U) [Mass/Vol] 17.80 mg/dL Low 39.00-259. 00 [facility] Screening total cholesterol/ high density lipoprotein (HDL) cholesterol ratioOrdered By: Latosha Renee on 06-06-2024 Cholesterol.total/Chol esterol in HDL [Mass ratio] 1.82 {ratio} [facility] Serum creatinine measurement (mass/volume)Ordered By: Latosha Renee on 06-06-2024 Creatinine [Mass/Vol] 1.02 mg/dL Normal 0.70-1.20 [facility] Comment on above: Performed By: #### L 506.0400, L502.0250, L501.9520, L500.4100, L500.4050, L506.1001, L501.9985 ####[facility] [address] [place], [address] Serum globulin measurementOr dered By: Latosha Renee on 06-06-2024 Globulin (S) [Mass/Vol] 5.6 g/dL High 2.2-4.2 [facility] Comment on above: Performed By: #### L 506.0400, L502.0250, L501.9520, L500.4100, L500.4050, L506.1001, L501.9985 ####[facility] [address] [place], [address](103) Serum glucose measurement (m ass/volume)Ordered By: Latosha Renee on 06-06-2024 Glucose [Mass/Vol] 238 mg/dL High 70-99 [facility] Comment on above: Performed By: #### L 506.0400, L502.0250, L501.9520, L500.4100, L500.4050, L506.1001, L501.9985 ####[facility] [address] [place], [address](624) Serum or plasma alanine delaney otransferase (ALT) measurementOrdered By: Latosha Renee on 06-06-2024 ALT [Catalytic activity/Vol] 14 U/L Normal <=46 [facility] Comment on above: Performed By: #### L 506.0400, L502.0250, L501.9520, L500.4100, L500.4050, L506.1001, L501.9985 ####[facility] [address] [facility] [place], [address](143) Serum or plasma albumin alfreda urement (mass/volume)Ordered By: Latosha Renee on 06-06-2024 Albumin [Mass/Vol] 2.4 g/dL Low 3.4-4.8 [facility] Comment on above: Performed By: #### L 506.0400, L502.0250, L501.9520, L500.4100, L500.4050, L506.1001, L501.9985 ####[facility] [address] [facility] [place], [address] Serum or plasma albumin/glob ulin mass ratioOrdered By: Latosha Renee on 06-06-2024 Albumin/Globulin [Mass ratio] 0.4 {ratio} Low 0.9-2.4 [facility] Comment on above: Performed By: #### L 506.0400, L502.0250, L501.9520, L500.4100, L500.4050, L506.1001, L501.9985 ####[facility] [address] [place], [place], [id number] Serum or plasma alkaline debby sphatase measurementOrdered By: Latosha Renee on 06-06-2024 ALP [Catalytic activity/Vol] 61 U/L 40-129 [facility] Serum or plasma calcium alfreda urement (mass/volume)Ordered By: Latosha Renee on 06-06-2024 Calcium [Mass/Vol] 8.2 mg/dL Normal 7.6-11.0 [facility] Comment on above: Performed By: #### L 506.0400, L502.0250, L501.9520, L500.4100, L500.4050, L506.1001, L501.9985 ####[facility] [address] [place], [place], [phone] Serum or plasma cholesterol in HDL measurement (mass/volume)Ordered By: Latosha Renee on 06-06-2024 Cholesterol in HDL [Mass/Vol] 44 mg/dL Normal [facility] Comment on above: National Cholesterol Education Program (NCEP) guidelines:<40 mg/dL: Low HDL-cholesterol (major risk factor for CHD)>= 60 mg/dL: High HDL-cholesterol (negative risk factor for CHD)HDL-cholesterol is affected by a number of factors, e.g. smoking, exercise, hormones, sex and age. Result Comment: Nicole onal Cholesterol Education Program (NCEP) guidelines:<40 mg/dL: Low HDL-cholesterol (major risk factor for CHD)>= 60 mg/dL: High HDL-cholesterol (negative risk factor forCHD)HDL-cholesterol is affected by a number of factors, e.g.smoking, exercise, hormones, sex and age. Performed By: #### L 506.0400, L502.0250, L501.9520, L500.4100, L500.4050, L506.1001, L501.9985 ####[facility] [address] [place], [place], [id number] Serum or plasma cholesterol measurement (mass/volume)Ordered By: Latosha Renee on 06-06-2024 Cholesterol [Mass/Vol] 81 mg/dL Normal <=200 [facility] Comment on above: Cholesterol level, D esirable <200 mg/dLBorderline high cholesterol 200-239 mg/dLHigh cholesterol >=240 mg/dLRecommendations of the NCEP Adult Treatment Panel for the following risk-cutoff thresholds for the [place] population. Result Comment: Chol esterol level, Desirable <200 mg/dLBorderline high cholesterol 200-239 mg/dLHigh cholesterol >=240 mg/dLRecommendations of the NCEP Adult Treatment Panel for thefollowing risk-cutoff thresholds for the [place] Americanpopulation. Performed By: #### L 506.0400, L502.0250, L501.9520, L500.4100, L500.4050, L506.1001, L501.9985 ####[facility] [address] [place], [place], [address] Serum or plasma urea nitroge n measurement (mass/volume)Ordered By: Latosha Renee on 06-06-2024 Urea nitrogen [Mass/Vol] 16 mg/dL Normal 4-19 [facility] Comment on above: Performed By: #### L 506.0400, L502.0250, L501.9520, L500.4100, L500.4050, L506.1001, L501.9985 ####[facility] [address] [facility] [address] [place], [place], [id number] Sodium levelOrdered By: Sebastián Renee on 06-06-2024 Sodium [Moles/Vol] 131 mmol/L Low 133-145 [facility] Comment on above: Performed By: #### L 506.0400, L502.0250, L501.9520, L500.4100, L500.4050, L506.1001, L501.9985 ####[facility] [address] [place], [place], [id number] T4 Free Directon 06-06-2024 T4 FREE DIRECT 1.30 ng/dL Normal 0.76-1.46 [facility] Comment on above: Performed By: #### L 506.0400, L502.0250, L501.9520, L500.4100, L500.4050, L506.1001, L501.9985 ####[facility] [address] [place], [place], [id number] T4 freeOrdered By: Latosha caputo on 06-06-2024 Free T4 [Mass/Vol] 1.30 ng/dL 0.76-1.46 [facility] TSH DL <= 0.005 mIU/L QnOrde red By: Latosha Renee on 06-06-2024 Thyroid Stimulating Hormone (TSH) 0.767 uIU/mL 0.300-4.20 0 [facility] TSH Qn 0.767 uIU/mL 0.300-4.20 0 [facility] Thyroid Stim Hormone (TSH)on 06-06-2024 TSH 0.767 uIU/mL Normal 0.300-4.20 0 [facility] Comment on above: Performed By: #### L 506.0400, L502.0250, L501.9520, L500.4100, L500.4050, L506.1001, L501.9985 ####[facility] [address] [place], [address] Total proteinOrdered By: Gerald Renee on 06-06-2024 Protein [Mass/Vol] 8.0 g/dL 5.9-8.4 [facility] Triglycerides measurementOrd ered By: Latosha Renee on 06-06-2024 Triglyceride [Mass/Vol] 132 mg/dL Normal [facility] Comment on above: The drugs N-Acetylcy steine and Metamizole may falsely depress this assay. Normal range: <150 mg/dLBorderline High: 150-199 mg/dLHigh: 200-499 mg/dLVery High: >500 mg/dL Result Comment: The drugs N-Acetylcysteine and Metamizole may falselydepress this assay.Normal range: <150 mg/dLBorderline High: 150-199 mg/dLHigh: 200-499 mg/dLVery High: >500 mg/dL Performed By: #### L 506.0400, L502.0250, L501.9520, L500.4100, L500.4050, L506.1001, L501.9985 ####[facility] [address] [place], [place], [address] Urine albumin measurement [facility] detection limit of 20 mg/L or less (mass/volume)Ordered By: Latosha Renee on 06-06-2024 Albumin DL <= 20 mg/L (U) [Mass/Vol] < 12.0 mg/L NO RANGE EST. [facility] Vitamin D, 25-hydroxyOrdered By: Latosha Renee on 06-06-2024 Vitamin D 25-Hydroxy 42.4 ng/mL 30-100 [facility] Comment on above: Vitamin D StatusDefi ciency: <20 ng/mL (50nmol/L)Insufficiency: 20-30 ng/mL (50-75 nmol/L)Sufficiency: 30-100 ng/mL (75-250 nmol/L)Toxicity: >100 ng/mL (>250 nmol/L) Ewa 06-02-2024 TAWNY Telephone (JAMES) REY MEAD ([id number]) 1955 M Date Time Provider Department 06/02/24 TODD, SHILPI HEMAWS During your visit today, we recorded the following information about you: Shilpi Ware RN 06/02/2024 4:43 PM Addendum Care Coordination Triage Note Cancer Hunter Situation: Patient reports Other Pain, See phone encounter 05/31/24. He has additional questions about procedure at [facility]. CT C/A/P at [facility] , EGD 05/31/24. Background: Lung cancer, had radiation, following scans, next CT chest due 07/06/24 with OV 07/13/24 Assessment: Patient states he was told to follow up LEANNE with our office. Reviewed CT chest, left adrenal node stable. He states he is aware and told them that. He states he has a lot of papers with his records that he doesn't understand. Reviewed EGD procedure note with patient and we will watch for pathology reports. Questions answered. He is c/o of pain, in uppper back, chest, and sometime abdominal. no one know why Dr. Duncan had him try Gabapentin but he states that did not help. He has been to the ED for pain, they gave him some Hydrocodone and that took the edge off. He does not have any more of those. Describes pain as mostly sharp, can be dull. Today, rates 8/10. Worse when he bend over, picks something up, twist. He can't lie flat. He is not sleeping well because of pain. Nothing makes it better. Advised Tylenol or Ibuprofen and see if that helps at all. The lost the PCP that he was established with d/t change of insurance and no longer in network. He has an appointment with Angelica Nguyen at [facility] on 06/29/24. He is aware that I will discuss above with Dr. Duncan and call him back later today. Pharmacy, [facility] in [place]. Recommendations: Per RNCC, patient directed to: Manage at home. Instructions provided. Will discuss with Dr. Duncan and call back with further instructions. Shilpi Ware RN June 02, 2024 10:14 AM Shilpi Ware RN 06/02/2024 4:43 PM Signed Discussed with Angie Block CNP. Patient needs to reach out to primary care. He is not receiving treatment and pain is not related to cancer. Per last OV with Dr. Duncan on 03/07/25, patient needed to reach out to PCP and ask for physical therapy. Keiry Ware RN Call to patient, aware of above. He states that he reached out to his PCP at the time, he was able to refill his Gabapentin and increased dose to 300mg every day but only gave him enough for 1 month. Now he is not able to see this PCP d/t insurance change. He states the increase in dose was helpful, if he could a refill on that until he is in to see new primary care provider, Angelica Nguyen. Patient aware that Dr. Duncan is gone for the day and will address with him on Wednesday am. He was also advised going to the ED if pain is unbearable/severe. He states he has been there and they did not give him anything. He did try Tylenol but not helpful with the pain. VIPUL Castro Cathleen, RN 06/05/2024 10:[address] Duncan agreeable to cover Gabapentin Rx until he can get in to see PCP on 06/29/24. Rx pended. VIPUL Castro Cathleen, RN 06/05/2024 10:08 AM Signed Call to patient and aware of Rx and agreeable to discuss any further refills at appt with new primary appointment next month. Keiry Ware RN Allergies As of Date: 06/02/2024 (No Known Allergies) Date Reviewed: 04/27/2024 Reviewed by: Marina Lane LPN - Fully Assessed Reason for Visit: Care Coordination [3491] Cmt: Pain/Questions Order(s):gabapentin (NEURONTIN) 300 mg capsuleTake 1 capsule by mouth once daily for 30 days.Disp: 30 capsuleRfl: 0 Prescriptions as of 06/05/2024 - gabapentin (NEURONTIN) 300 mg capsule Take 1 capsule by mouth once daily for 30 days. - VITAMIN B COMPLEX-100 ORAL Take by mouth. - fluticasone/umeclidin/vilan ter (TRELEGY ELLIPTA INHALATION) Inhale 1 Puff as instructed once daily. - ATGYWSCEVIP-UPSOVQEAI-SRSOO TER INHALATION Inhale as instructed. - ALBUTEROL INHALATION Inhale 2 Puffs as instructed every 4 hours as needed. - aspirin 81 mg cap Take 81 mg by mouth once daily. - atorvastatin (LIPITOR) 20 mg tablet Take 20 mg by mouth once daily. - albuterol (PROVENTIL) 2.5 mg /3 mL (0.083 %) nebulizer solution Use 2.5 mg via nebulizer every 4 hours as needed. - albuterol HFA (PROVENTIL HFA, VENTOLIN HFA) 90 mcg/actuation inhaler Inhale 1-2 Puffs as instructed every 4 hours as needed. - FARXIGA 5 mg tablet Take 5 mg by mouth once daily. - furosemide (LASIX) 40 mg tablet Take 40 mg by mouth once daily. - lisinopril 2.5 mg tablet Take 2.5 mg by mouth once daily. - LORazepam (ATIVAN) 1 mg tablet Take 1 mg by mouth every 6 hours as needed. - metFORMIN ER (FORTAMET) 500 mg 24 hr tablet Take one tablet by mouth in AM AND two tablets in PM. - (more content not included)... Normal [facility] Glucoseon 05-31-2024 FINGERSTICK GLU 222 mg/dL High 74-106 [facility] Comment on above: Result Comment: JEFRY TURNER OF PATIENT CARE PER NURSING PROTOCOL Performed By: #### L 501.080 ####[facility] [address] [place], [place], [address] [facility]-31-2024 [facility] ([facility]AMES[facility] ([id number]) 1955 M Date Time Provider Department 05/31/24 VALDEMAR DUNCAN During your visit today, we recorded the following information about you: Elena Goldsmith 05/31/2024 3:39 PM Signed Patient called stating that he had upper scope at [facility] today. Dr. Stahl informed patient to contact Dr. Duncan's office as soon as possible. Please advise patient if appointment is needed. Shilpi Ware, VIPUL 05/31/2024 4:10 PM Signed Patient had Upper GI endoscopy with Dr. Gallagher today, reviewed his note, he asked patient to reach out to us about a new adrenal node on CT 05/09/24. Dr. Duncan aware and was addressed in previous phone encounter dated 05/10/24. Patient was called and aware. [facility] 02/18/24 CT chest: Upper abdomen: Stable benign 2.3 x 2.5 cm LEFT adrenal nodule. [facility] 05/09/24 CT: There is a 1.7 cm x 2.5 cm nodular density in the left adrenal gland. 05/31/[address] Gallagher: Impression: - Esophageal plaques were found, suspicious for candidiasis. Biopsied. - No gross lesions in the stomach. - Small hiatal hernia. - A single duodenal polyp. Resected and retrieved. Recommendation: - Discharge patient to home. - Resume previous diet. - Continue present medications. - Await pathology results. VIPUL Castro Cathleen, VIPUL 06/01/2024 3:50 PM Signed Call to patient, message left to call me back and phone/contact number provided. Isatu Roche Cathleen, RN 06/05/2024 9:50 AM Signed See other phone note. Keiry Ware RN Allergies As of Date: 05/31/2024 (No Known Allergies) Date Reviewed: 04/27/2024 Reviewed by: Marina Lane LPN - Fully Assessed Reason for Visit: Patient Question [2357] Prescriptions as of 06/05/2024 - gabapentin (NEURONTIN) 100 mg capsule Take 1 capsule by mouth daily at bedtime for 30 days. - VITAMIN B COMPLEX-100 ORAL Take by mouth. - fluticasone/umeclidin/vilan ter (TRELEGY ELLIPTA INHALATION) Inhale 1 Puff as instructed once daily. - XHWPTUOESAP-EOTTKDNOY-XANSM TER INHALATION Inhale as instructed. - ALBUTEROL INHALATION Inhale 2 Puffs as instructed every 4 hours as needed. - aspirin 81 mg cap Take 81 mg by mouth once daily. - atorvastatin (LIPITOR) 20 mg tablet Take 20 mg by mouth once daily. - albuterol (PROVENTIL) 2.5 mg /3 mL (0.083 %) nebulizer solution Use 2.5 mg via nebulizer every 4 hours as needed. - albuterol HFA (PROVENTIL HFA, VENTOLIN HFA) 90 mcg/actuation inhaler Inhale 1-2 Puffs as instructed every 4 hours as needed. - FARXIGA 5 mg tablet Take 5 mg by mouth once daily. - furosemide (LASIX) 40 mg tablet Take 40 mg by mouth once daily. - lisinopril 2.5 mg tablet Take 2.5 mg by mouth once daily. - LORazepam (ATIVAN) 1 mg tablet Take 1 mg by mouth every 6 hours as needed. - metFORMIN ER (FORTAMET) 500 mg 24 hr tablet Take one tablet by mouth in AM AND two tablets in PM. - metoprolol tartrate, short acting, (LOPRESSOR) 50 mg tablet Take 50 mg by mouth once daily. - PARoxetine (PAXIL) 10 mg tablet Take 10 mg by mouth once daily. - pregabalin (LYRICA) 150 mg capsule Take 150 mg by mouth once daily. - roflumilast (DALIRESP) 250 mcg tablet Take 250 mcg by mouth once daily. - RYBELSUS 14 mg tablet Take 14 mg by mouth once daily. - tamsulosin (FLOMAX) 0.4 mg Take 0.4 mg by mouth once daily. - L.acid/L.casei/B.bif/B.link/ FOS (PROBIOTIC BLEND ORAL) Take 1 capsule by mouth once daily. Problem List As Of Date 05/31/2024 Noted Resolved Panlobular emphysema (HCC) [J43.1] 03/19/2023 Type 2 diabetes mellitus with hyperglycemia (HC*03/19/2023 Peripheral vascular disease (HCC) [I73.9] 03/19/2023 Type 2 diabetes mellitus with circulatory disor*03/19/2023 Lung mass [R91.8] 04/02/2023 Encounter Status:Closed by SHILPI WRAE on 06/05/24 Normal [facility] EGD Reporton 05-31-2024 EGD Report Normal [facility] deOrdered By: Wild Friend on 05-31-2024 Bedside Glucose (Misc Panel) 222 mg/dL High 74-106 [facility] Comment on above: MANAGEMENT OF PATIEN T CARE PER NURSING PROTOCOL Glucose [Mass/Vol] 222 mg/dL High 74-106 [facility] Comment on above: MANAGEMENT OF PATIEN T CARE PER NURSING PROTOCOL MR/POSTOP.ANEon 05-31-2024 MR/POSTOP.ANE Normal [facility] MR/IAHCGOFK2lj 05-31-2024 MR/POSTOPAN2 Normal [facility] Surgery Specimen Level Jerrell 05-31-2024 Surgery Specimen Level IV Normal [facility] Comment on above: Performed By: #### P SUIV ####[facility] [address] [place], [address] MR/PAT.ANEon 05-24-2024 MR/PAT.ANE Normal [facility] MR/PAT.ANEon 05-23-2024 MR/PAT.ANE Normal [facility] CRP SerPl-mCncon 05-22-2024 CRP [Mass/Vol] 6.1 mg/dL High <0.9 [facility] Comment on above: Order Comment: Speci men Type: BLOOD SPECIMENOrdering Facility: Romain Hurd MD Address: [address], [place] [address] Performed By: #### 1 988-5 ####[facility] LABIA [id number] [place] [address] [place] ESR Westergren method (Bld) [Velocity]on 05-22-2024 ESR (Bld) [Velocity] 99 mm/h High 0-15 [facility] Comment on above: Order Comment: Speci men Type: BLOOD SPECIMENOrdering Facility: Romain Hurd MD Address: [place] [address] Performed By: #### 4 537-7 ####[facility]IA [id number] [place] [address] [place] Internal Medicine Office Vis iton 05-22-2024 Internal Medicine Office Visit Normal [facility] XR CHEST 2V FRONTAL/LATon XR CHEST 2V FRONTAL/LAT * * *Final Report* * * DATE OF EXAM: May 22 2024 10:37AM WRX [id number] - XR CHEST 2V FRONTAL/LAT / PROCEDURE REASON: c34.9, R06.2 * * * * Physician Interpretation * * * * EXAMINATION: CHEST RADIOGRAPH (2 VIEW FRONTAL and LATERAL) CLINICAL HISTORY: Chest pain MQ: [id number] EXAM DATE/TIME: 05/22/2024 10:37 AM COMPARISON: 04/27/2024 RESULT: Lines, tubes, and devices: Mediastinal wires are in place. Lungs and pleura: Left upper lobe consolidative opacity is similar to previous. Stable blunting of the costophrenic angles. No lung mass. No pleural effusion. No pneumothorax. Cardiomediastinal silhouette: Normal cardiomediastinal silhouette. Bones and soft tissues: Healed rib fractures. IMPRESSION: Stable chest. No developing abnormality Event Host: PSCB Transcribe Date/Time: May 24 2024 4:10P Dictated by : ROBB KRISHNA MD This examination was interpreted and the report reviewed and electronically signed by: ROBB KRISHNA MD on May 24 2024 4:11PM EST [id number] Normal [facility] MR/BMS.BVSon 05-18-2024 MR/BMS.BVS Normal [facility] Upper GI Dual Contraston Upper GI Dual Contrast Normal [facility] CNPWhitney 05-10-2024 TAWNY Telephone (JAMES) REY MEAD ([id number]) 1955 M Date Time Provider Department 05/10/24 VALDEMAR DUNCAN During your visit today, we recorded the following information about you: Elena Goldsmith 05/10/2024 10:04 AM Signed Patient was informed by Jaleesa Mateo X RAY SERVICE TECHNICIAN to contact office regarding CT results. CT completed yesterday at [facility]. Patient states he has new left adrenal lesion. Please advise patient. Ilana Neal LPN 05/10/2024 10:[address] results placed on Dr. Duncan's desk for review. ÓSCAR Morton Cathleen, RN 05/10/2024 3:[address] Duncan reviewed and he has had a left adrenal lesion on previous scans. Appears stable. Most recent [facility] CT chest 02/18/24: Upper abdomen: Stable benign 2.3 x 2.5 cm LEFT adrenal nodule. Keiry Ware RN [facility] CT scan 05/09/24: There is a 1.7cm x 2.5cm nodular density in the left adrenal gland Keiry Ware RN Further review of chart: CT Chest 04/01/23: Upper abdomen: A 2.7 x 2 cm left adrenal mass is stable since remote exam available dated 10/18/2004, likely benign. VIPUL Castro Cathleen, RN 05/10/2024 3:16 PM Signed Call to patient, no answer, message left on self identified VM, that the left adrenal nodule is not new and is stable after review of previous scans. Instructed to call any further questions. VIPUL Castro Cathleen, RN 05/11/2024 11:25 AM Signed Call to patient, message left to call me back and phone/contact number provided. VIPUL Roche Pamela S, LPN 05/11/2024 11:41 AM Signed Spoke with pt. Informed scan of left adrenal appears stable. Pt voiced understanding. Alana Sanchez LPN Allergies As of Date: 05/10/2024 (No Known Allergies) Date Reviewed: 04/27/2024 Reviewed by: Marina Lane LPN - Fully Assessed Reason for Visit: Patient Update [1234] Prescriptions as of 05/11/2024 - gabapentin (NEURONTIN) 100 mg capsule Take 1 capsule by mouth daily at bedtime for 30 days. - VITAMIN B COMPLEX-100 ORAL Take by mouth. - fluticasone/umeclidin/vilan ter (TRELEGY ELLIPTA INHALATION) Inhale 1 Puff as instructed once daily. - NNXABHVZCBQ-QFYSJFMOR-XAGPA TER INHALATION Inhale as instructed. - ALBUTEROL INHALATION Inhale 2 Puffs as instructed every 4 hours as needed. - aspirin 81 mg cap Take 81 mg by mouth once daily. - atorvastatin (LIPITOR) 20 mg tablet Take 20 mg by mouth once daily. - albuterol (PROVENTIL) 2.5 mg /3 mL (0.083 %) nebulizer solution Use 2.5 mg via nebulizer every 4 hours as needed. - albuterol HFA (PROVENTIL HFA, VENTOLIN HFA) 90 mcg/actuation inhaler Inhale 1-2 Puffs as instructed every 4 hours as needed. - FARXIGA 5 mg tablet Take 5 mg by mouth once daily. - furosemide (LASIX) 40 mg tablet Take 40 mg by mouth once daily. - lisinopril 2.5 mg tablet Take 2.5 mg by mouth once daily. - LORazepam (ATIVAN) 1 mg tablet Take 1 mg by mouth every 6 hours as needed. - metFORMIN ER (FORTAMET) 500 mg 24 hr tablet Take one tablet by mouth in AM AND two tablets in PM. - metoprolol tartrate, short acting, (LOPRESSOR) 50 mg tablet Take 50 mg by mouth once daily. - PARoxetine (PAXIL) 10 mg tablet Take 10 mg by mouth once daily. - pregabalin (LYRICA) 150 mg capsule Take 150 mg by mouth once daily. - roflumilast (DALIRESP) 250 mcg tablet Take 250 mcg by mouth once daily. - RYBELSUS 14 mg tablet Take 14 mg by mouth once daily. - tamsulosin (FLOMAX) 0.4 mg Take 0.4 mg by mouth once daily. - L.acid/L.casei/B.bif/B.link/ FOS (PROBIOTIC BLEND ORAL) Take 1 capsule by mouth once daily. Problem List As Of Date 05/10/2024 Noted Resolved Panlobular emphysema (HCC) [J43.1] 03/19/2023 Type 2 diabetes mellitus with hyperglycemia (HC*03/19/2023 Peripheral vascular disease (HCC) [I73.9] 03/19/2023 Type 2 diabetes mellitus with circulatory disor*03/19/2023 Lung mass [R91.8] 04/02/2023 Encounter Status:Closed by ASIF ALANA Neil on 05/11/24 Normal [facility] Gastroenterology Visit Repor ton 05-10-2024 Gastroenterology Visit Report Normal [facility] 12 Lead EKGon 05-09-2024 12 Lead EKG Normal [facility] Absolute lymphocyte countOrd ered By: Aden Stahl on 05-09-2024 Lymphocytes Auto (Unsp spec) [#/Vol] 1.25 10*3/uL 0.83-4.51 [facility] Absolute neutrophil countOrd ered By: Aden Stahl on 05-09-2024 Neutrophils (Bld) [#/Vol] 6.6 10*3/uL 2.0-7.7 [facility] Albumin to globulin ratioOrd ered By: Aden Stahl on 05-09-2024 Albumin/Globulin [Mass ratio] 0.6 {ratio} Low 0.9-2.4 [facility] Automated lymphocyte count a s percentage of total leukocytesOrdered By: Aden Stahl on 05-09-2024 Lymphocytes/100 WBC Auto (Unsp spec) 14.3 % Low 19-41 [facility] Basophil percentageOrdered B y: Aden Stahl on 05-09-2024 Basophils/100 WBC (Bld) 0.5 % 0-1 [facility] Bilirubin, totalOrdered By: Aden Stahl on 05-09-2024 Bilirubin [Mass/Vol] 0.20 mg/dL 0.20-1.00 [facility] Comment on above: For patients on eltr ombopag therapy, use of Dimension [place] TBIL is not recommended. Blood urea nitrogen (BUN)/cr eatinine ratioOrdered By: Aden Stahl on 05-09-2024 Urea nitrogen/Creatinine [Mass ratio] 14.7 mg/mg 10-20 [facility] CBC W/Diff, Automatedon 04-16 Absolute Lymph 1.25 X10 3/uL Normal 0.83-4.51 [facility] Comment on above: Performed By: #### L 100.0100, L501.2450, L500.4050 ####[facility] [address] [place], [address] Absolute Neut 6.6 X10 3/uL Normal 2.0-7.7 [facility] Comment on above: Performed By: #### L 100.0100, L501.2450, L500.4050 ####[facility] [address] [place], [address] Basophils/100 WBC (Bld) 0.5 % Normal 0-1 [facility] Comment on above: Performed By: #### L 100.0100, L501.2450, L500.4050 ####[facility] [address] [place], [address] Eosinophils/100 WBC (Bld) 1.1 % Normal 0-5 [facility] Comment on above: Performed By: #### L 100.0100, L501.2450, L500.4050 ####[facility] [address] [place], [address] Erythrocyte distribution width (RBC) [Ratio] 16.6 % High 11.6-14.6 [facility] Comment on above: Performed By: #### L 100.0100, L501.2450, L500.4050 ####[facility] [address] [place], [address] Hematocrit (Bld) [Volume fraction] 35.9 % Low 40-54 [facility] Comment on above: Performed By: #### L 100.0100, L501.2450, L500.4050 ####[facility] [address] [place], [address] Hemoglobin (Bld) [Mass/Vol] 11.4 g/dL Low 13.0-16.5 [facility] Comment on above: Performed By: #### L 100.0100, L501.2450, L500.4050 ####[facility] [address] [place], [address] IG% 1.100 High 0.0-0.9 [facility] Comment on above: Result Comment: IG% - Immature Granulocytes (promyelocytes, myelocytes andmetamyelocytes) > 1% indicates that a LEFT SHIFT is Present. Performed By: #### L 100.0100, L501.2450, L500.4050 ####[facility] [address] [place], [address] Lymphocytes/100 WBC (Bld) 14.3 % Low 19-41 [facility] Comment on above: Performed By: #### L 100.0100, L501.2450, L500.4050 ####[facility] [address] [place], [address] MCH (RBC) [Entitic mass] 28.1 pg Normal 27.0-32.0 [facility] Comment on above: Performed By: #### L 100.0100, L501.2450, L500.4050 ####[facility] [address] [place], [address] MCHC (RBC) [Mass/Vol] 31.8 g/dL Low 32-36 [facility] Comment on above: Performed By: #### L 100.0100, L501.2450, L500.4050 ####[facility] [address] [place], [address] MCV (RBC) [Entitic vol] 88.6 fL Normal 80-94 [facility] Comment on above: Performed By: #### L 100.0100, L501.2450, L500.4050 ####[facility] [address] [place], [address] Monocytes/100 WBC (Bld) 7.6 % Normal 0-10 [facility] Comment on above: Performed By: #### L 100.0100, L501.2450, L500.4050 ####[facility] [address] [place], [address] Neutrophils/100 WBC (Bld) 75.4 % High 47-70 [facility] Comment on above: Performed By: #### L 100.0100, L501.2450, L500.4050 ####[facility] [address] [place], [address] Nucleated RBC (Bld) [#/Vol] 0 10*3/uL Normal 0-5 [facility] Comment on above: Performed By: #### L 100.0100, L501.2450, L500.4050 ####[facility] [address] [place], [address] Platelet mean volume (Bld) [Entitic vol] 9.1 fL Normal 6.2-12.0 [facility] Comment on above: Performed By: #### L 100.0100, L501.2450, L500.4050 ####[facility] [address] [place], [address] Platelets (Bld) [#/Vol] 177 10*3/uL Normal 150-450 [facility] Comment on above: Performed By: #### L 100.0100, L501.2450, L500.4050 ####[facility] [address] [place], [address] RBC (Bld) [#/Vol] 4.05 10*6/uL Low 4.6-6.2 [facility] Comment on above: Performed By: #### L 100.0100, L501.2450, L500.4050 ####[facility] [address] [place], [address] RDW SD 53.7 fl High 35.1-43.9 [facility] Comment on above: Performed By: #### L 100.0100, L501.2450, L500.4050 ####[facility] [address] [place], [address] WBC (Bld) [#/Vol] 8.7 10*3/uL Normal 4.4-11.0 [facility] Comment on above: Performed By: #### L 100.0100, L501.2450, L500.4050 ####[facility] [address] [place], [address] CTA Chst, Abd, Pel W and/or WOon 05-09-2024 CTA Chst, Abd, Pel W and/or WO Normal [facility] Carbon dioxide measurementOr dered By: Aden Stahl on 05-09-2024 CO2 [Moles/Vol] 27.0 mmol/L 21.0-32.0 [facility] Chloride measurementOrdered By: Aden Stahl on 05-09-2024 Chloride [Moles/Vol] 104 mmol/L 98-107 [facility] Comprehensive Metabolic Prof ilon 05-09-2024 Albumin [Mass/Vol] 3.0 g/dL Low 3.2-5.0 [facility] Comment on above: Performed By: #### L 100.0100, L501.2450, L500.4050 ####[facility] [address] [place], [address] Albumin/Globulin [Mass ratio] 0.6 {ratio} Low 0.9-2.4 [facility] Comment on above: Performed By: #### L 100.0100, L501.2450, L500.4050 ####[facility] [address] [place], [address] ALK P 90 U/L Normal 45-117 [facility] Comment on above: Performed By: #### L 100.0100, L501.2450, L500.4050 ####[facility] [address] [place], [address] ALT [Catalytic activity/Vol] 16 U/L Normal 16-61 [facility] Comment on above: Performed By: #### L 100.0100, L501.2450, L500.4050 ####[facility] [address] [place], [address] AST [Catalytic activity/Vol] 5 U/L Low 15-37 [facility] Comment on above: Performed By: #### L 100.0100, L501.2450, L500.4050 ####[facility] [address] [place], [address] Bilirubin [Mass/Vol] 0.20 mg/dL Normal 0.20-1.00 [facility] Comment on above: Result Comment: For patients on eltrombopag therapy, use of Dimension [place] TBIL is not recommended. Performed By: #### L 100.0100, L501.2450, L500.4050 ####[facility] [address] [place], [address] BUN/CRE 14.7 RATIO Normal 10-20 [facility] Comment on above: Performed By: #### L 100.0100, L501.2450, L500.4050 ####[facility] [address] [place], [address] CA,Total 9.1 mg/dL Normal 8.5-10.1 [facility] Comment on above: Performed By: #### L 100.0100, L501.2450, L500.4050 ####[facility] [address] [place], [address] Chloride [Moles/Vol] 104 mmol/L Normal 98-107 [facility] Comment on above: Performed By: #### L 100.0100, L501.2450, L500.4050 ####[facility] [address] [place], [address] CO2 [Moles/Vol] 27.0 mmol/L Normal 21.0-32.0 [facility] Comment on above: Performed By: #### L 100.0100, L501.2450, L500.4050 ####[facility] [address] [place], [address] Creatinine [Mass/Vol] 1.09 mg/dL Normal 0.70-1.30 [facility] Comment on above: Result Comment: The validity of the calculated GFR GFRAA in patients over70 years has not been determined. Clinical correlation isessential. Performed By: #### L 100.0100, L501.2450, L500.4050 ####[facility] [address] [place], [address] ECRCL 74.77 ml/min Normal [facility] Comment on above: Performed By: #### L 100.0100, L501.2450, L500.4050 ####[facility] [address] [place], [address] EST GFR - AA 87 mL/min Normal >60 [facility] Comment on above: Result Comment: Afri can [place] GFR Calc Performed By: #### L 100.0100, L501.2450, L500.4050 ####[facility] [address] [place], [address] GAP 5 Normal 5-15 [facility] Comment on above: Performed By: #### L 100.0100, L501.2450, L500.4050 ####[facility] [address] [place], [address] GFR/1.73 sq M.predicted among non-blacks MDRD (S/P/Bld) [Vol rate/Area] 72 mL/min/{1.73_m2} Normal >60 [facility] Comment on above: Result Comment: Non- GFR Calc Performed By: #### L 100.0100, L501.2450, L500.4050 ####[facility] [address] [place], [address] Globulin (S) [Mass/Vol] 4.7 g/dL High 2.2-4.2 [facility] Comment on above: Performed By: #### L 100.0100, L501.2450, L500.4050 ####[facility] [address] [place], [address] Glucose [Mass/Vol] 158 mg/dL High 74-106 [facility] Comment on above: Result Comment: Fast ing Glucose result greater than or equal to 126 mg/dLsuggests DIABETES MELLITUS per A.D.A. criteria. Performed By: #### L 100.0100, L501.2450, L500.4050 ####[facility] [address] [place], [address] Potassium [Moles/Vol] 4.0 mmol/L Normal 3.5-5.1 [facility] Comment on above: Performed By: #### L 100.0100, L501.2450, L500.4050 ####[facility] [address] [place], [address] Sodium [Moles/Vol] 136 mmol/L Normal 136-145 [facility] Comment on above: Performed By: #### L 100.0100, L501.2450, L500.4050 ####[facility] [address] [place], [address] T PROT 7.7 g/dL Normal 6.4-8.2 [facility] Comment on above: Performed By: #### L 100.0100, L501.2450, L500.4050 ####[facility] [address] [place], [address] Urea nitrogen [Mass/Vol] 16 mg/dL Normal 7-18 [facility] Comment on above: Performed By: #### L 100.0100, L501.2450, L500.4050 ####[facility] [address] [place], [address] Emergency Department Summary on 05-09-2024 Emergency Department Summary Normal [facility] Eosinophil percentageOrdered By: Aden Stahl on 05-09-2024 Eosinophils/100 WBC (Bld) 1.1 % 0-5 [facility] Erythrocyte distribution wid th ratioOrdered By: Aden tSahl on 05-09-2024 Erythrocyte distribution width (RBC) [Ratio] 16.6 % High 11.6-14.6 [facility] Erythrocyte distribution wid th standard deviationOrdered By: Aden Stahl on 05-09-2024 Erythrocyte distribution width (RBC) [Entitic vol] 53.7 fL High 35.1-43.9 [facility] Erythrocyte distribution width (RBC) [Ratio] 53.7 fl High 35.1-43.9 [facility] Estimated glomerular filtrat ion rate (GFR) AmericanOrdered By: Aden Stahl on 05-09-2024 Estimated GFR (MDRD) Amer 87 mL/min >60 [facility] Comment on above: GFR Calc Estimation of creatinine jc aranceOrdered By: Aden Stahl on 05-09-2024 Estimated Creatinine Clearance Calc 74.77 ml/min [facility] Glomerular filtration rate ( GFR) estimationOrdered By: Aden Stahl on 05-09-2024 Estimated GFR (MDRD) Non-Af Amer 72 mL/min >60 [facility] Comment on above: Non- GFR Calc GFR/1.73 sq M.predicted among non-blacks MDRD (S/P/Bld) [Vol rate/Area] 72 mL/min/{1.73_m2} >60 [facility] Comment on above: Non- GFR Calc Glucose measurementOrdered B y: Aden Stahl on 05-09-2024 Glucose [Mass/Vol] 158 mg/dL High 74-106 [facility] Comment on above: Fasting Glucose resu lt greater than or equal to 126 mg/dL suggests DIABETES MELLITUS per A.D.A. criteria. Hematocrit Auto (Bld) [Volum e fraction]Ordered By: Aden Stahl on 05-09-2024 Hematocrit (Bld) [Volume fraction] 35.9 % Low 40-54 [facility] Hemoglobin measurementOrdere d By: Aden Stahl on 05-09-2024 Hemoglobin (Bld) [Mass/Vol] 11.4 g/dL Low 13.0-16.5 [facility] Immature granulocytes/100 WB C Auto (Bld)Ordered By: Aden Stahl on 05-09-2024 Immature granulocytes/100 WBC (Bld) 1.100 % High 0.0-0.9 [facility] Comment on above: IG% - Immature Granu locytes (promyelocytes, myelocytes and metamyelocytes) > 1% indicates that a LEFT SHIFT is Present. Laboratory - Chemistry and C hemistry - challengeOrdered By: Aden Stahl on 05-09-2024 AST [Catalytic activity/Vol] 5 U/L Low 15-37 [facility] Lipaseon 05-09-2024 Lipase [Catalytic activity/Vol] 41 U/L Low 73-393 [facility] Comment on above: Performed By: #### L 100.0100, L501.2450, L500.4050 ####[facility] [address] [place], [address] Lipase measurementOrdered By : Aden Stahl on 05-09-2024 Lipase [Catalytic activity/Vol] 41 U/L Low 73-393 [facility] Lymphocytes Auto (Unsp spec) [#/Vol]Ordered By: Aden Stahl on 05-09-2024 Lymphocytes (Bld) [#/Vol] 1.25 10*3/uL 0.83-4.51 [facility] Lymphocytes/100 WBC Auto (Un sp spec)Ordered By: Aden Stahl on 05-09-2024 Lymphocytes/100 WBC (Bld) 14.3 % Low 19-41 [facility] MCV (mean corpuscular volume ) determinationOrdered By: Aden Stahl on 05-09-2024 MCV (RBC) [Entitic vol] 88.6 fL 80-94 [facility] Mean corpuscular hemoglobin (MCH) determinationOrdered By: Aden Stahl on 05-09-2024 MCH (RBC) [Entitic mass] 28.1 pg 27.0-32.0 [facility] Mean corpuscular hemoglobin concentration (MCHC) determinationOrdered By: Aden Stahl on 05-09-2024 MCHC (RBC) [Mass/Vol] 31.8 g/dL Low 32-36 [facility] Mean platelet volume determi nationOrdered By: Aden Stahl on 05-09-2024 Platelet mean volume (Bld) [Entitic vol] 9.1 fL 6.2-12.0 [facility] Monocyte percentageOrdered B y: Aden Stahl on 05-09-2024 Monocytes/100 WBC (Bld) 7.6 % 0-10 [facility] Neutrophil percentageOrdered By: Aden Stahl on 05-09-2024 Neutrophils/100 WBC (Bld) 75.4 % High 47-70 [facility] Nucleated red blood cell per centageOrdered By: Aden Stahl on 05-09-2024 Nucleated RBC/100 WBC (Bld) [Ratio] 0 % 0-5 [facility] Platelet countOrdered By: Wilner Stahl on 05-09-2024 Platelets (Bld) [#/Vol] 177 10*3/uL 150-450 [facility] Potassium measurementOrdered By: Adne Stahl on 05-09-2024 Potassium [Moles/Vol] 4.0 mmol/L 3.5-5.1 [facility] RBC Auto (Bld) [#/Vol]Ordere d By: Aden Stahl on 05-09-2024 RBC (Bld) [#/Vol] 4.05 10*6/uL Low 4.6-6.2 [facility] Serum anion gap measurementO rdered By: Aden Stahl on 05-09-2024 Anion gap [Moles/Vol] 5 mmol/L 5-15 [facility] Serum globulin measurementOr dered By: Aden Stahl on 05-09-2024 Globulin (S) [Mass/Vol] 4.7 g/dL High 2.2-4.2 [facility] Serum or plasma alanine delaney otransferase (ALT) measurementOrdered By: Aden Stahl on 05-09-2024 ALT [Catalytic activity/Vol] 16 U/L 16-61 [facility] Serum or plasma albumin alfreda urement (mass/volume)Ordered By: Aden Stahl on 05-09-2024 Albumin [Mass/Vol] 3.0 g/dL Low 3.2-5.0 [facility] Serum or plasma alkaline debby sphatase measurementOrdered By: Aden Stahl on 05-09-2024 ALP [Catalytic activity/Vol] 90 U/L 45-117 [facility] Serum or plasma calcium alfreda urement (mass/volume)Ordered By: Aden Stahl on 05-09-2024 Calcium [Mass/Vol] 9.1 mg/dL 8.5-10.1 [facility] Serum or plasma creatinine m easurement (mass/volume)Ordered By: Aden Stahl on 05-09-2024 Creatinine [Mass/Vol] 1.09 mg/dL 0.70-1.30 [facility] Comment on above: The validity of the calculated GFR & GFRAA in patients over 70 years has not been determined. Clinical correlation is essential. Serum or plasma urea nitroge n measurement (mass/volume)Ordered By: Aden Stahl on 05-09-2024 Urea nitrogen [Mass/Vol] 16 mg/dL 7-18 [facility] Sodium levelOrdered By: Aden Stahl on 05-09-2024 Sodium [Moles/Vol] 136 mmol/L 136-145 [facility] Total proteinOrdered By: Kallie Stahl on 05-09-2024 Protein [Mass/Vol] 7.7 g/dL 6.4-8.2 [facility] White blood cell (WBC) count Ordered By: Aden Stahl on 05-09-2024 WBC (Bld) [#/Vol] 8.7 10*3/uL 4.4-11.0 [facility] CNOVon 04-27-2024 CNOV Office Visit ([facility] ) REY MEAD ([id number]) 1955 Date Time Provider Department 04/27/24 8:00 AM GEORGE PEREZ [facility] During your visit today, we recorded the following information about you: Temperature Pulse Respiration Blood pressure 97.1 degrees 94/minute 22/minute 129/80 George Perez APRN.X [employer] SERVICE TECHNICIAN 04/27/2024 9:07 AM Signed Subjective HPI Nontoxic-appearing 69-year-old male past medical history coronary artery disease hypertension type 2 diabetes. In April 2015 history of right upper lobe lobectomy due to history of lung cancer. States currently has left-sided malignant neoplasm lung. Currently undergoing radiation. Has developed left-sided chest pain that has been present for greater than 1 month. Was seen by cardiology echo and stress test performed. States nothing abnormal was discovered. Presents today with persistent discomfort. Denies any syncopal episodes hemoptysis increased shortness of breath nausea vomiting or abdominal pain. No exacerbating or relieving factors. He did mention this to oncologist who states it may be related to radiation. Presents today for evaluation. Past medical history prescription medications allergies reviewed. BP 129/80 Pulse 94 Temp 36.2 ?C (97.1 ?F) Resp 22 SpO2 97% .Patient presents with: Pain: Left side back across back, chest pain below pectoral area x 1 month PAST MEDICAL HISTORY Diagnosis Date Anxiety state CAD (coronary artery disease) CKD (chronic kidney disease) stage 3, GFR 30-59 ml/min (HCC) COPD (chronic obstructive pulmonary disease) (HCC) Diabetes mellitus (HCC) Former smoker History of bronchoscopy HTN (hypertension) Hypokalemia Lung cancer (HCC) Mixed hyperlipidemia ELLEN (obstructive sleep apnea) Other emphysema (HCC) Other emphysema (HCC) PAST SURGICAL HISTORY Procedure Laterality Date BYPASS GRAFT OTHR,CPVQG-EUO-CGX LOBECTOMY, SEGMENT ALLERGIES Patient has no known allergies. MEDICATIONS gabapentin (NEURONTIN) 100 mg capsule Take 1 capsule by mouth daily at bedtime for 30 days. VITAMIN B COMPLEX-100 ORAL Take by mouth. (Patient not taking: Reported on 04/21/2023) fluticasone/umeclidin/vilan ter (TRELEGY ELLIPTA INHALATION) Inhale 1 Puff as instructed once daily. LENWCRGZNBJ-[id number]-[id number] TER INHALATION Inhale as instructed. (Patient not taking: Reported on 04/21/2023) ALBUTEROL INHALATION Inhale 2 Puffs as instructed every 4 hours as needed. aspirin 81 mg cap Take 81 mg by mouth once daily. atorvastatin (LIPITOR) 20 mg tablet Take 20 mg by mouth once daily. albuterol (PROVENTIL) 2.5 mg /3 mL (0.083 %) nebulizer solution Use 2.5 mg via nebulizer every 4 hours as needed. albuterol HFA (PROVENTIL HFA, VENTOLIN HFA) 90 mcg/actuation inhaler Inhale 1-2 Puffs as instructed every 4 hours as needed. FARXIGA 5 mg tablet Take 5 mg by mouth once daily. furosemide (LASIX) 40 mg tablet Take 40 mg by mouth once daily. lisinopril 2.5 mg tablet Take 2.5 mg by mouth once daily. LORazepam (ATIVAN) 1 mg tablet Take 1 mg by mouth every 6 hours as needed. metFORMIN ER (FORTAMET) 500 mg 24 hr tablet Take one tablet by mouth in AM AND two tablets in PM. metoprolol tartrate, short acting, (LOPRESSOR) 50 mg tablet Take 50 mg by mouth once daily. PARoxetine (PAXIL) 10 mg tablet Take 10 mg by mouth once daily. pregabalin (LYRICA) 150 mg capsule Take 150 mg by mouth once daily. roflumilast (DALIRESP) 250 mcg tablet Take 250 mcg by mouth once daily. RYBELSUS 14 mg tablet Take 14 mg by mouth once daily. tamsulosin (FLOMAX) 0.4 mg Take 0.4 mg by mouth once daily. L.acid/L.casei/B.bif/B.link/ FOS (PROBIOTIC BLEND ORAL) Take 1 capsule by mouth once daily. FAMILY HISTORY Problem Relation Age of Onset Diabetes Mother Heart Mother Cancer Mother Leukemia Father Colon Cancer Sister Diabetes Sister Emphysema Sister Emphysema Sister Emphysema Sister Emphysema Sister Heart Attack Maternal Grandmother Heart Attack Maternal Grandfather Social History Tobacco Use Smoking status: Former Types: Cigarettes Smokeless tobacco: Never Tobacco comments: Pt smoked 2 packs daily x 49 years, quit 2016 Vaping Use Vaping status: Never Used Substance Use Topics Alcohol use: Yes Comment: occ Drug use: Never Review of Systems Constitutional: Negative for chills, fever and malaise/fatigue. HENT: Negative for congestion, ear discharge, ear pain, sinus pain and sore throat. Eyes: Negative for blurred vision, pain, discharge and redness. Respiratory: Negative for cough, hemoptysis, sputum production, shortness of breath, wheezing and stridor. Cardiovascular: Positive for chest pain. Gastrointestinal: Negative for abdominal pain, diarrhea, nausea and vomiting. Musculoskeletal: Negative for myalgias. Skin: Negative for itching and rash. Neurological: Negative for dizziness and headaches. (more content not included)... [facility] ([facility]) ALYCEREY Navjot ([id number]) 1955 M Date Time Provider Department 04/27/24 VALDEMAR DUNCAN During your visit today, we recorded the following information about you: Elena Goldsmith 04/27/2024 10:08 AM Signed Patient called stating he is still in a lot of pain, gabapentin doesn't seem to be helping much. He is asking if we are able to up the dose. Please advise. Patient uses [facility] in [place]. Shilpi Ware RN 04/27/2024 10:41 AM Signed Discussed with Dr. Duncan, since this is not helping, he would advise evauation with his PCP. VIPUL Castro Cathleen, RN 04/27/2024 1:29 PM Signed Call to patient, no answer, left detailed message on self identified phone with message from Dr. Duncan. Instructed to call back if any further questions or concerns. Keiry Ware RN Allergies As of Date: 04/27/2024 (No Known Allergies) Date Reviewed: 04/27/2024 Reviewed by: Marina Lane LPN - Fully Assessed Reason for Visit: Pain [78] Prescriptions as of 04/27/2024 - gabapentin (NEURONTIN) 100 mg capsule Take 1 capsule by mouth daily at bedtime for 30 days. - VITAMIN B COMPLEX-100 ORAL Take by mouth. - fluticasone/umeclidin/vilan ter (TRELEGY ELLIPTA INHALATION) Inhale 1 Puff as instructed once daily. - RVKHUAYEBRN-GMHTXJBKF-[id number] TER INHALATION Inhale as instructed. - ALBUTEROL INHALATION Inhale 2 Puffs as instructed every 4 hours as needed. - aspirin 81 mg cap Take 81 mg by mouth once daily. - atorvastatin (LIPITOR) 20 mg tablet Take 20 mg by mouth once daily. - albuterol (PROVENTIL) 2.5 mg /3 mL (0.083 %) nebulizer solution Use 2.5 mg via nebulizer every 4 hours as needed. - albuterol HFA (PROVENTIL HFA, VENTOLIN HFA) 90 mcg/actuation inhaler Inhale 1-2 Puffs as instructed every 4 hours as needed. - FARXIGA 5 mg tablet Take 5 mg by mouth once daily. - furosemide (LASIX) 40 mg tablet Take 40 mg by mouth once daily. - lisinopril 2.5 mg tablet Take 2.5 mg by mouth once daily. - LORazepam (ATIVAN) 1 mg tablet Take 1 mg by mouth every 6 hours as needed. - metFORMIN ER (FORTAMET) 500 mg 24 hr tablet Take one tablet by mouth in AM AND two tablets in PM. - metoprolol tartrate, short acting, (LOPRESSOR) 50 mg tablet Take 50 mg by mouth once daily. - PARoxetine (PAXIL) 10 mg tablet Take 10 mg by mouth once daily. - pregabalin (LYRICA) 150 mg capsule Take 150 mg by mouth once daily. - roflumilast (DALIRESP) 250 mcg tablet Take 250 mcg by mouth once daily. - RYBELSUS 14 mg tablet Take 14 mg by mouth once daily. - tamsulosin (FLOMAX) 0.4 mg Take 0.4 mg by mouth once daily. - L.acid/L.casei/B.bif/B.link/ FOS (PROBIOTIC BLEND ORAL) Take 1 capsule by mouth once daily. Problem List As Of Date 04/27/2024 Noted Resolved Panlobular emphysema (HCC) [J43.1] 03/19/2023 Type 2 diabetes mellitus with hyperglycemia (HC*03/19/2023 Peripheral vascular disease (HCC) [I73.9] 03/19/2023 Type 2 diabetes mellitus with circulatory disor*03/19/2023 Lung mass [R91.8] 04/02/2023 Encounter Status:Closed by SHILPI WARE on 04/27/24 Normal [facility] XR CHEST 2V FRONTAL/LATon XR CHEST 2V FRONTAL/LAT * * *Final Report* * * DATE OF EXAM: Apr 27 2024 8:31AM WOX 5291 - XR CHEST 2V FRONTAL/LAT / PROCEDURE REASON: Chest pain, unspecified type * * * * Physician Interpretation * * * * EXAMINATION: CHEST RADIOGRAPH (2 VIEW FRONTAL and LATERAL) CLINICAL HISTORY: Chest pain, unspecified type MQ: XC2_6 EXAM DATE/TIME: 04/27/2024 8:31 AM COMPARISON: Chest x-ray 06/02/[address] chest 02/18/2024 RESULT: Lines, tubes, and devices: None. Lungs and pleura: Again noted is a posterior no pleural effusion or pneumothorax. Left upper lobe consolidative opacity. Cardiomediastinal silhouette: Stable cardiomediastinal silhouette. Bones and soft tissues: Median sternotomy wires are noted. Remote healed right rib fracture. IMPRESSION: 1. 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 No new consolidation, pleural effusion or pneumothorax Event Host: [facility] Transcribe Date/Time: Apr 27 2024 8:31A Dictated by : RAUL WILSON MD This examination was interpreted and the report reviewed and electronically signed by: RAUL WILSON MD on Apr 27 2024 8:34AM EST [id number] Normal [facility] XR Chest PA and Lateralon IMPRESSION: 1. 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 No new consolidation, pleural effusion or pneumothorax Event Host: [facility] Transcribe Date/Time: Apr 27 2024 8:31A Dictated by : RAUL WILSON MD This examination was interpreted and the report reviewed and electronically signed by: RAUL WILSON MD on Apr 27 2024 8:34AM EST DIVISION OF RADIOLOGY * * *Final Report* * * DATE OF EXAM: Apr 27 2024 8:31AM WOX 5291 - XR CHEST 2V FRONTAL/LAT / PROCEDURE REASON: Chest pain, unspecified type * * * * Physician Interpretation * * * * EXAMINATION: CHEST RADIOGRAPH (2 VIEW FRONTAL & LATERAL) CLINICAL HISTORY: Chest pain, unspecified type MQ: XC2_6 EXAM DATE/TIME: 04/27/2024 8:31 AM COMPARISON: Chest x-ray 06/02/[address] chest 02/18/2024 RESULT: Lines, tubes, and devices: None. Lungs and pleura: Again noted is a posterior no pleural effusion or pneumothorax. Left upper lobe consolidative opacity. Cardiomediastinal silhouette: Stable cardiomediastinal silhouette. Bones and soft tissues: Median sternotomy wires are noted. Remote healed right rib fracture. DIVISION OF RADIOLOGY Provider, [facility] - 04/27/2024 * * *Final Report* * * DATE OF EXAM: Apr 27 2024 8:31AM WOX 5291 - XR CHEST 2V FRONTAL/LAT / PROCEDURE REASON: Chest pain, unspecified type * * * * Physician Interpretation * * * * EXAMINATION: CHEST RADIOGRAPH (2 VIEW FRONTAL & LATERAL) CLINICAL HISTORY: Chest pain, unspecified type MQ: XC2_6 EXAM DATE/TIME: 04/27/2024 8:31 AM COMPARISON: Chest x-ray 06/02/[address] chest 02/18/2024 RESULT: Lines, tubes, and devices: None. Lungs and pleura: Again noted is a posterior no pleural effusion or pneumothorax. Left upper lobe consolidative opacity. Cardiomediastinal silhouette: Stable cardiomediastinal silhouette. Bones and soft tissues: Median sternotomy wires are noted. Remote healed right rib fracture. IMPRESSION IMPRESSION: 1. 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 No new consolidation, pleural effusion or pneumothorax Event Host: [facility] Transcribe Date/Time: Apr 27 2024 8:31A Dictated by : RAUL WILSON MD This examination was interpreted and the report reviewed and electronically signed by: RAUL WILSON MD on Apr 27 2024 8:34AM EST [facility] Radiology Study observation (narrative) [facility] XR Chest PA and LateralOrder ed By: [facility] Provider on 04-27-2024 [facility] Echo Complete W/ Contraston 04-06-2024 Echo Complete W/ Contrast Normal [facility] Stress Reporton 04-06-2024 Stress Report Normal [facility] 12 Lead EKG performed by BMS on 03-22-2024 12 Lead EKG performed by BMS Normal [facility] Cardiology Visit Reporton Cardiology Visit Report Normal [facility] CNOVSPon 03-07-2024 CNOVSP Visit (SP) Office (H EMAWS) REY MEAD ([id number]) 1955 M Date Time Provider Department 03/07/24 8:30 AM VALDEMAR DUNCAN During your visit today, we recorded the following information about you: Temperature Pulse Blood pressure Weight 98.1 degrees 80/minute 120/71 98.2 kg Valdemar Duncan MD 03/07/2024 9:15 AM Signed (Elements copied from my note dated December 01, 2023, have been reviewed and updated where appropriate, and all reflect current assessment and medical decision making from today's encounter, March 07, 2024) HISTORY OF PRESENT ILLNESS: Rey Mead is a 68 year old male with history right non small cell lung cancer stage I resected 2016, now with metachronous SCC left lung, 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 FRANCK mass found on surveillance scans. 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 Stage IA3 Met with CTS, inoperable. Seeing rad onc for consideration of SBRT. We met to discuss risks and benefits of adjuvant chemotherapy. Here for follow up. Notes some pain intermittent bilateral back radiates to front, mild dull achy pain. Post SBRT to FRANCK mass May 2023. Reviewed CT report images. CLINICAL IMPRESSION: Non small cell lung cancer as above. Stage does not predict significant if any benefit from adjuvant chemotherapy, co morbidities raise risks of such therapy, underlying renal function is marginal. Feel risks of adjuvant chemotherapy outweigh benefits RECOMMENDATION/PLAN: 1. See back in 3-[address] scan 2. Neurontin for pain 3. He'll see PCP re possible physical therapy Written and verbal health teaching given to patient, patient verbalizes understanding and agrees with treatment plan. PAST MEDICAL HISTORY Diagnosis Date Anxiety state CAD (coronary artery disease) CKD (chronic kidney disease) stage 3, GFR 30-59 ml/min (HCC) COPD (chronic obstructive pulmonary disease) (HCC) Diabetes mellitus (HCC) Former smoker History of bronchoscopy HTN (hypertension) Hypokalemia Lung cancer (HCC) Mixed hyperlipidemia ELLEN (obstructive sleep apnea) Other emphysema (HCC) Other emphysema (HCC) PAST SURGICAL HISTORY Procedure Laterality Date BYPASS GRAFT OTHR,[id number] LOBECTOMY, SEGMENT FAMILY HISTORY Problem Relation Age of Onset Diabetes Mother Heart Mother Cancer Mother Leukemia Father Colon Cancer Sister Diabetes Sister Emphysema Sister Emphysema Sister Emphysema Sister Emphysema Sister Heart Attack Maternal Grandmother Heart Attack Maternal Grandfather Social History Tobacco Use Smoking status: Former Types: Cigarettes Smokeless tobacco: Never Tobacco comments: Pt smoked 2 packs daily x 49 years, quit 2016 Vaping Use Vaping status: Never Used Substance Use Topics Alcohol use: Yes Comment: occ Drug use: Never ALLERGIES: ALLERGIES No Known Allergies CURRENT OUTPATIENT MEDICATIONS: fluticasone/umeclidin/vilan ter (TRELEGY ELLIPTA INHALATION) Inhale 1 Puff as instructed once daily. aspirin 81 mg cap Take 81 mg by mouth once daily. atorvastatin (LIPITOR) 20 mg tablet Take 20 mg by mouth once daily. albuterol (PROVENTIL) 2.5 mg /3 mL (0.083 %) nebulizer solution Use 2.5 mg via nebulizer every 4 hours as needed. albuterol HFA (PROVENTIL HFA, VENTOLIN HFA) 90 mcg/actuation inhaler Inhale 1-2 Puffs as instructed every 4 hours as needed. FARXIGA 5 mg tablet Take 5 mg by mouth once daily. furosemide (LASIX) 40 mg tablet Take 40 mg by mouth once daily. lisinopril 2.5 mg tablet Take 2.5 mg by mouth once daily. LORazepam (ATIVAN) 1 mg tablet Take 1 mg by mouth every 6 hours as needed. metFORMIN ER (FORTAMET) 500 mg 24 hr tablet Take one tablet by mouth in AM AND two tablets in PM. metoprolol tartrate, short acting, (LOPRESSOR) 50 mg tablet Take 50 mg by mouth once daily. PARoxetine (PAXIL) 10 mg tablet Take 10 mg by mouth once daily. pregabalin (LYRICA) 150 mg capsule Take 150 mg by mouth once daily. roflumilast (DALIRESP) 250 mcg tablet Take 250 mcg by mouth once daily. RYBELSUS 14 mg tablet Take 14 mg by mouth once daily. tamsulosin (FLOMAX) 0.4 mg Take 0.4 mg by mouth once daily. L.acid/L.casei/B.bif/B.link/ FOS (PROBIOTIC BLEND ORAL) Take 1 capsule by mouth once daily. VITAMIN B COMPLEX-100 ORAL Take by mouth. (Patient not taking: Reported on 04/21/2023) GRXRIOYAAGO-FWYUKKNRP-SROPJ TER INHALATION Inhale as instructed. (Patient not taking: Reported on 04/21/2023) ALBUTEROL INHALATION Inhale 2 Puffs as instructed every 4 hours as needed. REVIEW OF SYSTEMS: GENERAL: No fever, night sweats, weight loss or malaise. All other reviewed and negative other than HPI. PHYSICAL EXAMINATION: VITAL SIGNS: BP 120/71 Pulse 80 Temp (Src) 98.1 (Temporal) Wt 216 lb 8 oz (98.2kg) SpO2 97% GENERAL APPEARANCE: Well appearing, in no acute distress, alert (more content not included)... Normal [facility] CREATININE [facility] 02-18-2024 Creatinine [Mass/Vol] 0.90 mg/dL Normal 0.73-1.22 [facility] Comment on above: Order Comment: Speci men Type: BLOOD SPECIMENOrdering Facility: [facility] Address: [address] [place] [address] Performed By: #### C RET1 ####[facility] [id number] [place] [address] [place] Creatinine and Glomerular filtration rate.predicted panel (S/P/Bld) 94 mL/min/1.73m??? Normal >=60 [facility] Comment on above: Order Comment: Speci men Type: BLOOD SPECIMENOrdering Facility: [facility] Address: [address] [place] [address] Result Comment: Alexia mated Glomerular Filtration Rate (eGFR) is calculated using the 2020 CKD-EPI creatinine equation. This equation utilizes serum creatinine, sex, and age as parameters. The creatinine assay has traceable calibration to isotope dilution-mass spectrometry. Refer to KDIGO guidelines for clinical interpretation. In patients with unstable renal function, e.g. those with acute kidney injury, the eGFR may not accurately reflect actual GFR. Performed By: #### C RET1 ####[facility] [id number] [place] [address] [place] CT CHEST WO IVCONon 02-18-20 CT CHEST WO IVCON * * *Final Report* * * DATE OF EXAM: Feb 18 2024 9:51AM [facility] 0541 - CT CHEST WO IVCON / PROCEDURE REASON: Malignant neoplasm of unspecified part of unspecified bronchus or lung (HCC) * * * * Physician Interpretation * * * * EXAMINATION: CHEST CT WITHOUT CONTRAST CLINICAL HISTORY: Malignant neoplasm of unspecified part of unspecified bronchus or lung (HCC) Technique: Spiral CT acquisition of the chest from the thoracic inlet to the upper abdomen without contrast. MQ: CTCWO_6 CT Radiation dose: Integrated Dose-length product (DLP) for this visit = 429 mGy*cm CT Dose Reduction Employed: Automated exposure control(AEC) and iterative recon Comparison: 11/24/2023 CT RESULT: Limitations: None. Lines, tubes, and devices: None. Lung parenchyma and airways: There is increased consolidative opacity in the LEFT upper lobe with mildly increased volume loss. The previously noted LEFT upper lobe mass is partially obscured by this airspace disease with no definite change in size. Ill-defined focal patchy opacity lateral mid LEFT lower lobe and posterior LEFT lower lobe base are new from prior study. There is a small area of tree-in-bud airspace disease superior to the posterior LEFT lower lobe opacity. Stable subpleural opacity posterior lingula contiguous to the major fissure. Consistent with atelectasis or fibrosis. Status post RIGHT upper lobectomy. There is tree-in-bud airspace disease in the RIGHT lower lobe base, most pronounced in the central medial aspect with adjacent localized areas of consolidation. There are also a few centrilobular nodules in the posterior RIGHT middle lobe with the largest of these, 4 and 2 mm in diameter (6:130) unchanged from the prior study. Adjacent posterior RIGHT middle lobe bronchiectasis is slightly more pronounced, with mucous/phlegmon partially opacifying the airways. Contiguous airspace disease suggesting atelectasis or fibrosis. Stable medial RIGHT lower lobe basilar bronchiectasis with opacification of peripheral bronchus. Centrilobular emphysema. The central airways are patent. Pleural space: No pleural effusion. No pleural thickening. Lower neck, lymph nodes, and mediastinum: The imaged thyroid gland is normal. No lymphadenopathy in the supraclavicular, axillary, mediastinal, or hilar regions. Heart, pericardium, and thoracic vessels: The thoracic aorta and main pulmonary artery are normal in caliber. The cardiac chambers are normal in size. No coronary artery atherosclerotic calcifications are noted, although the study is not optimized for coronary assessment. No pericardial effusion or thickening. Bones and soft tissues: No destructive bone lesion. Chest wall is unremarkable. Upper abdomen: Stable benign 2.3 x 2.5 cm LEFT adrenal nodule. Localizer images: No additional findings. IMPRESSION: Progression LEFT upper lobe airspace disease probably due to radiation pneumonitis/fibrosis. No definite change in size of LEFT upper lobe nodule, which is virtually obscured by the airspace disease. New multifocal airspace disease consistent with infiltrates and small airway inflammation. Medial RIGHT lower lobe and middle lobe bronchiectasis Stable borderline enlarged middle mediastinal lymph nodes. Event Host: [facility] Transcribe Date/Time: Feb 22 2024 12:31P Dictated by : BRANT PHIPPS MD This examination was interpreted and the report reviewed and electronically signed by: BRANT PHIPPS MD on Feb 22 2024 12:53PM EST [id number] Normal [facility] CNPWhitney 12-03-2023 CNPN Telephone (RADTWS) REY MEAD ([id number]) 1955 M Date Time Provider Department 12/03/23 [facility] During your visit today, we recorded the following information about you: Jacy Palomino, RN 12/03/2023 11:34 AM Signed Pt was scheduled for 1130 phone call today. Pt did not answer, voicemail left for him to call back. Can transfer to ext [facility] for Dr Dunaway's nurse or PSS for reschedule. Elena Goldsmith 12/03/2023 3:31 PM Signed Patient called and rescheduled Allergies As of Date: 12/03/2023 (No Known Allergies) Date Reviewed: 12/01/2023 Reviewed by: Sebastián Phillips MA - Fully Assessed Reason for Visit: Appointment [186] Cmt: missed Prescriptions as of 12/07/2023 - VITAMIN B COMPLEX-100 ORAL Take by mouth. - fluticasone/umeclidin/vilan ter (TRELEGY ELLIPTA INHALATION) Inhale as instructed. - PGJFPJXEHDO-ZNMCGAPTO-CVOUR TER INHALATION Inhale as instructed. - ALBUTEROL INHALATION Inhale 2 Puffs as instructed every 4 hours as needed. - aspirin 81 mg cap Take 81 mg by mouth once daily. - atorvastatin (LIPITOR) 20 mg tablet Take 20 mg by mouth once daily. - albuterol (PROVENTIL) 2.5 mg /3 mL (0.083 %) nebulizer solution - albuterol HFA (PROVENTIL HFA, VENTOLIN HFA) 90 mcg/actuation inhaler - FARXIGA 5 mg tablet Take 5 mg by mouth once daily. - furosemide (LASIX) 40 mg tablet Take 40 mg by mouth once daily. - lisinopril 2.5 mg tablet Take 2.5 mg by mouth once daily. - LORazepam (ATIVAN) 1 mg tablet Take 1 mg by mouth once daily. - metFORMIN ER (FORTAMET) 500 mg 24 hr tablet Take 500 mg by mouth once daily. - metoprolol tartrate, short acting, (LOPRESSOR) 50 mg tablet Take 50 mg by mouth once daily. - PARoxetine (PAXIL) 10 mg tablet Take 10 mg by mouth once daily. - pregabalin (LYRICA) 150 mg capsule Take 150 mg by mouth once daily. - roflumilast (DALIRESP) 250 mcg tablet Take 250 mcg by mouth once daily. - RYBELSUS 14 mg tablet Take 14 mg by mouth once daily. - tamsulosin (FLOMAX) 0.4 mg Take 0.4 mg by mouth once daily. - L.acid/L.casei/B.bif/B.link/ FOS (PROBIOTIC BLEND ORAL) Take 6 Billion Cells by mouth once daily. Problem List As Of Date 12/03/2023 Noted Resolved Panlobular emphysema (HCC) [J43.1] 03/19/2023 Type 2 diabetes mellitus with hyperglycemia (HC*03/19/2023 Peripheral vascular disease (HCC) [I73.9] 03/19/2023 Type 2 diabetes mellitus with circulatory disor*03/19/2023 Lung mass [R91.8] 04/02/2023 Encounter Status:Closed by JACY PALOMINO on 12/07/23 Normal [facility] CNOVSPon 12-01-2023 CNOVSP Visit (SP) Office (H EMAWS) REY MEAD ([id number]) 1955 M Date Time Provider Department 12/01/23 10:00 AM VALDEMAR DUNCAN During your visit today, we recorded the following information about you: Temperature Pulse Blood pressure Weight 97.6 degrees 64/minute 124/71 98.2 kg Valdemar Duncan MD 12/01/2023 12:01 PM Signed (Elements copied from my note dated July 16, 2023, have been reviewed and updated where appropriate, and all reflect current assessment and medical decision making from today's encounter, December 01, 2023) HISTORY OF PRESENT ILLNESS: Rey Mead is a 68 year old male with history right non small cell lung cancer stage I resected 2017, now with metachronous SCC left lung, 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 FRANCK mass found on surveillance scans. 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 Stage IA3 Met with CTS, inoperable. Seeing rad onc for consideration of SBRT. We met to discuss risks and benefits of adjuvant chemotherapy. Here for follow up. Post SBRT to FRANCK mass May 2023. Reviewed CT report images. CLINICAL IMPRESSION: Non small cell lung cancer as above. Stage does not predict significant if any benefit from adjuvant chemotherapy, co morbidities raise risks of such therapy, underlying renal function is marginal. Feel risks of adjuvant chemotherapy outweigh benefits RECOMMENDATION/PLAN: 1. See back in [address] scan Written and verbal health teaching given to patient, patient verbalizes understanding and agrees with treatment plan. PAST MEDICAL HISTORY Diagnosis Date Anxiety state CAD (coronary artery disease) CKD (chronic kidney disease) stage 3, GFR 30-59 ml/min (HCC) COPD (chronic obstructive pulmonary disease) (HCC) Diabetes mellitus (HCC) Former smoker History of bronchoscopy HTN (hypertension) Hypokalemia Lung cancer (HCC) Mixed hyperlipidemia ELLEN (obstructive sleep apnea) Other emphysema (HCC) Other emphysema (HCC) PAST SURGICAL HISTORY Procedure Laterality Date BYPASS GRAFT OTHR,[id number]-SVR LOBECTOMY, SEGMENT FAMILY HISTORY Problem Relation Age of Onset Diabetes Mother Heart Mother Cancer Mother Leukemia Father Colon Cancer Sister Diabetes Sister Emphysema Sister Emphysema Sister Emphysema Sister Emphysema Sister Heart Attack Maternal Grandmother Heart Attack Maternal Grandfather Social History Tobacco Use Smoking status: Former Current packs/day: 2.00 Average packs/day: 2.0 packs/day for 48.0 years (96.0 ttl pk-yrs) Types: Cigarettes Smokeless tobacco: Never Vaping Use Vaping status: Never Used Substance Use Topics Alcohol use: Yes Comment: occ Drug use: Never ALLERGIES: ALLERGIES No Known Allergies CURRENT OUTPATIENT MEDICATIONS: fluticasone/umeclidin/vilan ter (TRELEGY ELLIPTA INHALATION) Inhale as instructed. aspirin 81 mg cap Take 81 mg by mouth once daily. atorvastatin (LIPITOR) 20 mg tablet Take 20 mg by mouth once daily. albuterol (PROVENTIL) 2.5 mg /3 mL (0.083 %) nebulizer solution albuterol HFA (PROVENTIL HFA, VENTOLIN HFA) 90 mcg/actuation inhaler FARXIGA 5 mg tablet Take 5 mg by mouth once daily. furosemide (LASIX) 40 mg tablet Take 40 mg by mouth once daily. lisinopril 2.5 mg tablet Take 2.5 mg by mouth once daily. LORazepam (ATIVAN) 1 mg tablet Take 1 mg by mouth once daily. metFORMIN ER (FORTAMET) 500 mg 24 hr tablet Take 500 mg by mouth once daily. metoprolol tartrate, short acting, (LOPRESSOR) 50 mg tablet Take 50 mg by mouth once daily. PARoxetine (PAXIL) 10 mg tablet Take 10 mg by mouth once daily. pregabalin (LYRICA) 150 mg capsule Take 150 mg by mouth once daily. roflumilast (DALIRESP) 250 mcg tablet Take 250 mcg by mouth once daily. RYBELSUS 14 mg tablet Take 14 mg by mouth once daily. tamsulosin (FLOMAX) 0.4 mg Take 0.4 mg by mouth once daily. L.acid/L.casei/B.bif/B.link/ FOS (PROBIOTIC BLEND ORAL) Take 6 Billion Cells by mouth once daily. VITAMIN B COMPLEX-100 ORAL Take by mouth. (Patient not taking: Reported on 04/21/2023) OYELFMNLURP-YMHDSARLH-EPZZD TER INHALATION Inhale as instructed. (Patient not taking: Reported on 04/21/2023) ALBUTEROL INHALATION Inhale 2 Puffs as instructed every 4 hours as needed. REVIEW OF SYSTEMS: GENERAL: No fever, night sweats, weight loss or malaise. All other reviewed and negative other than HPI. PHYSICAL EXAMINATION: VITAL SIGNS: BP 124/71 Pulse 64 Temp (Src) 97.6 (Temporal) Wt 216 lb 8 oz (98.2kg) SpO2 99% GENERAL APPEARANCE: Well appearing, in no acute distress, alert and oriented x3, well-hydrated, well nourished. I spent a total of 30 minutes on the date of the service which included preparing to see the patient, [id number] patient care, completing clinical documentation, obtaining and/or reviewing separately obtained history, counseling and educat (more content not included)... Normal [facility] CREATININE [facility] 11-24-2023 Creatinine [Mass/Vol] 1.07 mg/dL Normal 0.73-1.22 [facility] Comment on above: Order Comment: Speci men Type: BLOOD SPECIMENOrdering Facility: [facility] Address: [address] [place] [address] [place] [address] Performed By: #### C RET1 ####[facility] [id number] [place] [address] [place] Creatinine and Glomerular filtration rate.predicted panel (S/P/Bld) 76 mL/min/1.73m??? Normal >=60 [facility] Comment on above: Order Comment: Speci men Type: BLOOD SPECIMENOrdering Facility: [facility] Address: [address] [place] [address] Result Comment: Alexia mated Glomerular Filtration Rate (eGFR) is calculated using the 2020 CKD-EPI creatinine equation. This equation utilizes serum creatinine, sex, and age as parameters. The creatinine assay has traceable calibration to isotope dilution-mass spectrometry. Refer to KDIGO guidelines for clinical interpretation. In patients with unstable renal function, e.g. those with acute kidney injury, the eGFR may not accurately reflect actual GFR. Performed By: #### C RET1 ####[facility] [id number] [place] [address] [place] CT CHEST W IVCONon CT CHEST W IVCON * * *Final Report* * * DATE OF EXAM: Nov 24 2023 9:10AM [facility] 0539 - CT CHEST W IVCON / PROCEDURE REASON: Malignant neoplasm of unspecified part of unspecified bronchus or lung (HCC) * * * * Physician Interpretation * * * * EXAMINATION: CHEST CT WITH CONTRAST CLINICAL HISTORY: Lung cancer Technique: Spiral CT acquisition of the chest from the thoracic inlet to the upper abdomen following IV contrast. MQ: CTCW_6 Contrast: 50 mL Omnipaque [address] Radiation dose: Integrated Dose-length product (DLP) for this visit = 417 mGy*cm CT Dose Reduction Employed: Automated exposure control(AEC) and iterative recon Comparison: CT chest 08/24/2023 RESULT: Limitations: None. Lines, tubes, and devices: None. Lung parenchyma and airways: Postoperative changes from a right upper lobectomy. Unchanged size of a spiculated mass in the posterior left upper lobe measuring approximately 2.8 x 2.7 cm (6:66). There is increasing consolidation in the posterior lateral left upper lobe, possibly due to radiation therapy. Previously described 8 mm nodule in the lateral left upper lobe is not visualized on the current study. Stable clustered nodules in the medial left lung apex. Stable appearance of some clustered nodules in a tree-in-bud distribution in the posterior right lower lobe which are most likely infectious/inflammatory. Emphysema. Unchanged scarring or atelectasis in the lateral right middle lobe. Bilateral bronchial wall thickening. Pleural space: No pleural effusion. No pleural thickening. Lower neck, lymph nodes, and mediastinum: The imaged thyroid gland is normal. No lymphadenopathy in the supraclavicular, axillary, mediastinal, or hilar regions. Heart, pericardium, and thoracic vessels: The thoracic aorta and main pulmonary artery are normal in caliber. The cardiac chambers are normal in size. Coronary artery atherosclerotic calcifications are noted, although the study is not optimized for coronary assessment. No pericardial effusion or thickening. Bones and soft tissues: No destructive bone lesion. Chest wall is unremarkable. Upper abdomen: No acute abnormality in the imaged upper abdomen. Stable 2.7 x 2 cm left adrenal nodule. Localizer images: No additional findings. IMPRESSION: 1. Increasing consolidation in the posterior lateral left upper lobe adjacent to a spiculated nodule, possibly due to radiation therapy. 2. Unchanged size of a spiculated nodule in the posterior left upper lobe 3. Previously described 8 mm nodule in the lateral left upper lobe is not visualized on the current study 4. No new thoracic lymphadenopathy 5. Stable appearance of clustered nodules in the posterior right lower lobe and left lung apex Event Host: PSCB Transcribe Date/Time: Nov 26 2023 4:07P Dictated by : RAUL WILSON MD This examination was interpreted and the report reviewed and electronically signed by: RAUL WILSON MD on Nov 26 2023 4:19PM EST [id number] Normal [facility] XR Chest PA and Lateralon [facility] .Auto Diffon 05-31-2023 Basophil, Absolute 0.1 10 3/mcL Normal 0.0-0.2 [facility] ([place]) Comment on above: Performed By: #### A PALLAVI, FT4, ADIFF, CMP, LIPID, CBC, A1C, TSH, GFR #### [address] [address] Basophils/100 WBC (Bld) 0.6 % Normal 0.0-2.5 [facility] ([place]) Comment on above: Performed By: #### A PALLAVI, FT4, ADIFF, CMP, LIPID, CBC, A1C, TSH, GFR #### [address] [address] Eosinophil, Absolute 0.2 10 3/mcL Normal 0.0-0.4 [facility] ([place]) Comment on above: Performed By: #### A PALLAVI, FT4, ADIFF, CMP, LIPID, CBC, A1C, TSH, GFR #### [address] [address] Eosinophils/100 WBC (Bld) 2.0 % Normal 0.0-7.0 [facility] ([place]) Comment on above: Performed By: #### A PALLAVI, FT4, ADIFF, CMP, LIPID, CBC, A1C, TSH, GFR #### [address] [address] Lymphocyte, Absolute 1.7 10 3/mcL Normal 0.8-3.9 [facility] ([place]) Comment on above: Performed By: #### A PALLAVI, FT4, ADIFF, CMP, LIPID, CBC, A1C, TSH, GFR #### [address] [address] Lymphocytes/100 WBC (Bld) 18.9 % Normal 10.0-50.0 [facility] ([place]) Comment on above: Performed By: #### A PALLAVI, FT4, ADIFF, CMP, LIPID, CBC, A1C, TSH, GFR #### [address] [address] Monocyte, Absolute 0.9 10 3/mcL Normal 0.2-1.0 [facility] ([place]) Comment on above: Performed By: #### A PALLAVI, FT4, ADIFF, CMP, LIPID, CBC, A1C, TSH, GFR #### [address] [address] Monocytes/100 WBC (Bld) 10.1 % Normal 1.7-13.0 [facility] ([place]) Comment on above: Performed By: #### A PALLAVI, FT4, ADIFF, CMP, LIPID, CBC, A1C, TSH, GFR #### [address] [address] Neutrophils/100 WBC (Bld) 68.4 % Normal 37.0-80.0 [facility] ([place]) Comment on above: Performed By: #### A PALLAVI, FT4, ADIFF, CMP, LIPID, CBC, A1C, TSH, GFR #### [address] [address] .GFRon 05-31-2023 GFR Non- 62 ml/min/1.73sqm Normal [facility] ([place]) Comment on above: Result Comment: GFR Population mean for , Non- Americans Ages 20-29 = 116 mL/min/1.73 sq.m. Ages 30-39 = 107 mL/min/1.73 sq.m. Ages 40-49 = 99 mL/min/1.73 sq.m. Ages 50-59 = 93 mL/min/1.73 sq.m. Ages 60-69 = 85 mL/min/1.73 sq.m. Ages 70+ = 75 mL/min/1.73 sq.m. Chronic Kidney Disease: Less than 60 mL/min/1.73 square meters End Stage Renal Disease: Less than 15 mL/min/1.73 square meters Performed By: #### A PALLAVI, FT4, ADIFF, CMP, LIPID, CBC, A1C, TSH, GFR #### [address] [address] GFR 75 ml/min/1.73sqm Normal [facility] ([place]) Comment on above: Result Comment: GFR Population mean for , Non- Americans Ages 20-29 = 116 mL/min/1.73 sq.m. Ages 30-39 = 107 mL/min/1.73 sq.m. Ages 40-49 = 99 mL/min/1.73 sq.m. Ages 50-59 = 93 mL/min/1.73 sq.m. Ages 60-69 = 85 mL/min/1.73 sq.m. Ages 70+ = 75 mL/min/1.73 sq.m. Chronic Kidney Disease: Less than 60 mL/min/1.73 square meters End Stage Renal Disease: Less than 15 mL/min/1.73 square meters Performed By: #### A PALLAVI, FT4, ADIFF, CMP, LIPID, CBC, A1C, TSH, GFR #### [address] [address] .NEUABSon 05-31-2023 Neutrophil, Absolute 6.3 10 3/mcL High 2.9-6.2 [facility] ([place]) Comment on above: Performed By: #### A PALLAVI, FT4, ADIFF, CMP, LIPID, CBC, A1C, TSH, GFR #### [address] [address] A1Con 05-31-2023 HbA1c (Bld) [Mass fraction] 7.7 % High 4.3-6.4 [facility] ([place]) Comment on above: Performed By: #### A PALLAVI, FT4, ADIFF, CMP, LIPID, CBC, A1C, TSH, GFR #### [address] [address] CBCon 05-31-2023 Erythrocyte distribution width (RBC) [Ratio] 16.4 % High 11.5-14.5 [facility] ([place]) Comment on above: Performed By: #### A PALLAVI, FT4, ADIFF, CMP, LIPID, CBC, A1C, TSH, GFR #### [address] [address] Hematocrit (Bld) [Volume fraction] 38.8 % Low 42.0-52.0 [facility] ([place]) Comment on above: Performed By: #### A PALLAVI, FT4, ADIFF, CMP, LIPID, CBC, A1C, TSH, GFR #### [address] [address] Hgb 13.2 G/dL Low 14.0-18.0 [facility] ([place]) Comment on above: Performed By: #### A PALLAVI, FT4, ADIFF, CMP, LIPID, CBC, A1C, TSH, GFR #### [address] [address] MCH (RBC) [Entitic mass] 30.5 pg Normal 27.0-31.2 [facility] ([place]) Comment on above: Performed By: #### A PALLAVI, FT4, ADIFF, CMP, LIPID, CBC, A1C, TSH, GFR #### [address] [address] MCHC 34.0 G/dL Normal 31.8-35.4 [facility] ([place]) Comment on above: Performed By: #### A PALLAVI, FT4, ADIFF, CMP, LIPID, CBC, A1C, TSH, GFR #### [address] [address] MCV (RBC) [Entitic vol] 89.7 fL Normal 80.0-94.0 [facility] ([place]) Comment on above: Performed By: #### A PALLAVI, FT4, ADIFF, CMP, LIPID, CBC, A1C, TSH, GFR #### [address] [address] Platelet 178 10 3/mcL Normal 130-400 [facility] ([place]) Comment on above: Performed By: #### A PALLAVI, FT4, ADIFF, CMP, LIPID, CBC, A1C, TSH, GFR #### [address] [address] Platelet mean volume (Bld) [Entitic vol] 7.7 fL Normal 7.4-10.4 [facility] ([place]) Comment on above: Performed By: #### A PALLAVI, FT4, ADIFF, CMP, LIPID, CBC, A1C, TSH, GFR #### [address] [address] RBC 4.32 10 6/mcL Normal 4.04-6.13 [facility] ([place]) Comment on above: Performed By: #### A PALLAVI, FT4, ADIFF, CMP, LIPID, CBC, A1C, TSH, GFR #### [address] [address] WBC 9.2 10 3/mcL Normal 4.6-10.8 [facility] ([place]) Comment on above: Performed By: #### A PALLAVI, FT4, ADIFF, CMP, LIPID, CBC, A1C, TSH, GFR #### [address] [address] CMPon 05-31-2023 Albumin Level 3.7 G/dL Normal 3.4-4.8 [facility] ([place]) Comment on above: Performed By: #### A PALLAVI, FT4, ADIFF, CMP, LIPID, CBC, A1C, TSH, GFR #### [address] [address] Albumin/Globulin [Mass ratio] 0.9 {ratio} Low 1.1-2.5 [facility] ([place]) Comment on above: Performed By: #### A PALLAVI, FT4, ADIFF, CMP, LIPID, CBC, A1C, TSH, GFR #### [address] [address] ALP [Catalytic activity/Vol] 99 U/L Normal 40-135 [facility] ([place]) Comment on above: Performed By: #### A PALLAVI, FT4, ADIFF, CMP, LIPID, CBC, A1C, TSH, GFR #### [address] [address] ALT [Catalytic activity/Vol] 24 U/L Normal 16-63 [facility] ([place]) Comment on above: Performed By: #### A PALLAVI, FT4, ADIFF, CMP, LIPID, CBC, A1C, TSH, GFR #### [address] [address] AST [Catalytic activity/Vol] 13 U/L Normal 10-40 [facility] ([place]) Comment on above: Performed By: #### A PALLAVI, FT4, ADIFF, CMP, LIPID, CBC, A1C, TSH, GFR #### [address] [address] Bili Total 0.7 mg/dL Normal 0.2-1.0 [facility] ([place]) Comment on above: Result Comment: Use of this assay is not recommended for patients undergoing treatment with eltrombopag due to the potential for falsely elevated results. Performed By: #### A PALLAVI, FT4, ADIFF, CMP, LIPID, CBC, A1C, TSH, GFR #### [address] [address] BUN/Creatinine Ratio 15 ratio Normal 7-27 [facility] ([place]) Comment on above: Performed By: #### A PALLAVI, FT4, ADIFF, CMP, LIPID, CBC, A1C, TSH, GFR #### [address] [address] Calcium [Mass/Vol] 9.4 mg/dL Normal 8.4-10.2 [facility] ([place]) Comment on above: Performed By: #### A PALLAVI, FT4, ADIFF, CMP, LIPID, CBC, A1C, TSH, GFR #### [address] [address] Chloride [Moles/Vol] 98 mmol/L Normal 98-107 [facility] ([place]) Comment on above: Performed By: #### A PALLAVI, FT4, ADIFF, CMP, LIPID, CBC, A1C, TSH, GFR #### [address] [address] CO2 [Moles/Vol] 29 mmol/L Normal 23-31 [facility] ([place]) Comment on above: Performed By: #### A PALLAVI, FT4, ADIFF, CMP, LIPID, CBC, A1C, TSH, GFR #### [address] [address] Creatinine [Mass/Vol] 1.18 mg/dL Normal 0.70-1.30 [facility] ([place]) Comment on above: Performed By: #### A PALLAVI, FT4, ADIFF, CMP, LIPID, CBC, A1C, TSH, GFR #### [address] [address] Electrolyte Balance 9.0 mEq/L Normal 4.0-15.0 [facility] ([place]) Comment on above: Performed By: #### A PALLAVI, FT4, ADIFF, CMP, LIPID, CBC, A1C, TSH, GFR #### [address] [address] Globulin 4.2 G/dL Normal [facility] ([place]) Comment on above: Performed By: #### A PALLAVI, FT4, ADIFF, CMP, LIPID, CBC, A1C, TSH, GFR #### [address] [address] Glucose [Mass/Vol] 177 mg/dL High 80-115 [facility] ([place]) Comment on above: Performed By: #### A PALLAVI, FT4, ADIFF, CMP, LIPID, CBC, A1C, TSH, GFR #### [address] [address] Potassium [Moles/Vol] 4.6 mmol/L Normal 3.5-5.1 [facility] ([place]) Comment on above: Performed By: #### A PALLAVI, FT4, ADIFF, CMP, LIPID, CBC, A1C, TSH, GFR #### [address] [address] Sodium [Moles/Vol] 136 mmol/L Normal 136-145 [facility] ([place]) Comment on above: Performed By: #### A PALLAVI, FT4, ADIFF, CMP, LIPID, CBC, A1C, TSH, GFR #### [address] [address] Total Protein 7.9 G/dL Normal 6.4-8.2 [facility] ([place]) Comment on above: Performed By: #### A PALLAVI, FT4, ADIFF, CMP, LIPID, CBC, A1C, TSH, GFR #### [address] [address] Urea nitrogen [Mass/Vol] 18 mg/dL Normal 7-18 [facility] ([place]) Comment on above: Performed By: #### A PALLAVI, FT4, ADIFF, CMP, LIPID, CBC, A1C, TSH, GFR #### [address] [address] FT4on 05-31-2023 Free T4 [Mass/Vol] 1.02 ng/dL Normal 0.76-1.46 [facility] ([place]) Comment on above: Performed By: #### A PALLAVI, FT4, ADIFF, CMP, LIPID, CBC, A1C, TSH, GFR #### [address] [place], [place] [address] LABORATORYOrdered By: SYSTEM SYSTEM on 05-31-2023 Albumin BCP dye [Mass/Vol] 3.7 G/dL Normal 3.4 - 4.8 G/dL AO ADM SS Albumin/Globulin [Mass ratio] 0.9 {ratio} Low 1.1 - 2.5 ratio AO ADM SS ALP [Catalytic activity/Vol] 99 U/L Normal 40 - 135 U/L AO ADM SS ALT With P-5'-P [Catalytic activity/Vol] 24 U/L Normal 16 - 63 U/L AO ADM SS AST With P-5'-P [Catalytic activity/Vol] 13 U/L Normal 10 - 40 U/L AO ADM SS Basophil, Absolute 0.1 103/mcL Normal 0.0 - 0.2 10^3/mcL AO Workflow SS Basophils/100 WBC (Bld) 0.6 % Normal 0.0 - 2.5 % AO Workflow SS Bilirubin [Mass/Vol] 0.7 mg/dL Normal 0.2 - 1 .0 mg/dL AO ADM SS Comment on above: Interpretive Data: U se of this assay is not recommended for patients undergoing treatment with eltrombopag due to the potential for falsely elevated results. Calcium [Mass/Vol] 9.4 mg/dL Normal 8.4 - 10. 2 mg/dL AO ADM SS Chloride [Moles/Vol] 98 mmol/L Normal 98 - 10 7 mmol/L AO ADM SS CO2 [Moles/Vol] 29 mmol/L Normal 23 - 31 mmol/L AO ADM SS Creatinine [Mass/Vol] 1.18 mg/dL Normal 0.70 - 1.30 mg/dL AO ADM SS Electrolyte Balance 9.0 mEq/L Normal 4.0 - 15 .0 mEq/L AO ADM SS Eosinophil, Absolute 0.2 103/mcL Normal 0.0 - 0 .4 10^3/mcL AO Workflow SS Eosinophils/100 WBC (Bld) 2.0 % Normal 0.0 - 7.0 % AO Workflow SS Erythrocyte distribution width (RBC) [Ratio] 16.4 % High 11.5 - 14.5 % AO Workflow SS Free T4 [Mass/Vol] 1.02 ng/dL Normal 0.76 - 1.46 ng/dL AO ADM SS GFR/1.73 sq M.predicted among blacks MDRD (S/P/Bld) [Vol rate/Area] 75 ml/min/1.73sqm Invalid Interpretation Code AO Chemistry S Comment on above: Interpretive Data: GFR Population mean for , Non- Americans Ages 20-29 = 116 mL/min/1.73 sq.m. Ages 30-39 = 107 mL/min/1.73 sq.m. Ages 40-49 = 99 mL/min/1.73 sq.m. Ages 50-59 = 93 mL/min/1.73 sq.m. Ages 60-69 = 85 mL/min/1.73 sq.m. Ages 70+ = 75 mL/min/1.73 sq.m. Chronic Kidney Disease: Less than 60 mL/min/1.73 square meters End Stage Renal Disease: Less than 15 mL/min/1.73 square meters GFR/1.73 sq M.predicted among non-blacks MDRD (S/P/Bld) [Vol rate/Area] 62 ml/min/1.73sqm Invalid Interpretation Code AO Chemistry S Comment on above: Interpretive Data: GFR Population mean for , Non- Americans Ages 20-29 = 116 mL/min/1.73 sq.m. Ages 30-39 = 107 mL/min/1.73 sq.m. Ages 40-49 = 99 mL/min/1.73 sq.m. Ages 50-59 = 93 mL/min/1.73 sq.m. Ages 60-69 = 85 mL/min/1.73 sq.m. Ages 70+ = 75 mL/min/1.73 sq.m. Chronic Kidney Disease: Less than 60 mL/min/1.73 square meters End Stage Renal Disease: Less than 15 mL/min/1.73 square meters Globulin 4.2 G/dL Invalid Interpretation Code AO ADM SS Glucose [Mass/Vol] 177 mg/dL High 80 - 115 mg/dL AO ADM SS HbA1c (Bld) [Mass fraction] 7.7 % High 4.3 - 6.4 % AO ADM SS Hematocrit (Bld) [Volume fraction] 38.8 % Low 42.0 - 52.0 % AO Workflow SS Hemoglobin (Bld) [Mass/Vol] 13.2 G/dL Low 14.0 - 18.0 G/dL AO Workflow SS Lymphocyte, Absolute 1.7 103/mcL Normal 0.8 - 3 .9 10^3/mcL AO Workflow SS Lymphocytes/100 WBC (Bld) 18.9 % Normal 10.0 - 50.0 % AO Workflow SS MCH (RBC) [Entitic mass] 30.5 pg Normal 27.0 - 31.2 pg AO Workflow SS MCHC 34.0 G/dL Normal 31.8 - 35.4 G/dL AO Workflow SS MCV (RBC) [Entitic vol] 89.7 fL Normal 80.0 - 94.0 fL AO Workflow SS Monocyte, Absolute 0.9 103/mcL Normal 0.2 - 1.0 10^3/mcL AO Workflow SS Monocytes/100 WBC (Bld) 10.1 % Normal 1.7 - 13.0 % AO Workflow SS Neutrophil, Absolute 6.3 103/mcL High 2.9 - 6 .2 10^3/mcL AO Workflow SS Neutrophils/100 WBC (Bld) 68.4 % Normal 37.0 - 80.0 % AO Workflow SS Platelet mean volume (Bld) [Entitic vol] 7.7 fL Normal 7.4 - 10.4 fL AO Workflow SS Platelets (Bld) [#/Vol] 178 103/mcL Normal 130 - 400 10^3/mcL AO Workflow SS Potassium [Moles/Vol] 4.6 mmol/L Normal 3.5 - 5.1 mmol/L AO ADM SS Protein [Mass/Vol] 7.9 G/dL Normal 6.4 - 8.2 G/dL AO ADM SS RBC (Bld) [#/Vol] 4.32 106/mcL Normal 4.04 - 6.13 10^6/mcL AO Workflow SS Sodium [Moles/Vol] 136 mmol/L Normal 136 - 145 mmol/L AO ADM SS TSH Qn 1.05 m[IU]/L Normal 0.36 - 3.74 mcIU/mL AO ADM SS Urea nitrogen [Mass/Vol] 18 mg/dL Normal 7 - 18 mg/dL AO ADM SS Urea nitrogen/Creatinine [Mass ratio] 15 ratio Normal 7 - 27 ratio AO ADM SS WBC (Bld) [#/Vol] 9.2 103/mcL Normal 4.6 - 10.8 10^3/mcL AO Workflow SS LABORATORYOrdered By: Phuong Dumont on 05-31-2023 Cholesterol [Mass/Vol] 103 mg/dL Normal 0 - 2 00 mg/dL AO ADM SS Comment on above: Interpretive Data: C holesterol Reference Interval: Less than 200 Desirable 200-239 Borderline high risk 240 and above High risk Cholesterol in HDL [Mass/Vol] 42 mg/dL Normal 40 - 60 mg/dL AO ADM SS Cholesterol in LDL [Mass/Vol] 31 mg/dL Normal 0 - 130 mg/dL AO ADM SS Triglyceride [Mass/Vol] 152 mg/dL High 0 - 150 mg/dL AO ADM SS Comment on above: Interpretive Data: T riglyceride Reference Interval: Less than 150 Normal 150-199 Borderline high risk 200-499 High risk 500 or higher Very high risk LIPIDon 05-31-2023 Cholesterol [Mass/Vol] 103 mg/dL Normal 0-200 [facility] ([place]) Comment on above: Result Comment: Chol esterol Reference Interval: Less than 200 Desirable 200-239 Borderline high risk 240 and above High risk Performed By: #### A PALLAVI, FT4, ADIFF, CMP, LIPID, CBC, A1C, TSH, GFR #### [address] [address] Cholesterol in HDL [Mass/Vol] 42 mg/dL Normal 40-60 [facility] ([place]) Comment on above: Performed By: #### A PALLAVI, FT4, ADIFF, CMP, LIPID, CBC, A1C, TSH, GFR #### [address] [address] Cholesterol in LDL [Mass/Vol] 31 mg/dL Normal 0-130 [facility] ([place]) Comment on above: Performed By: #### A PALLAVI, FT4, ADIFF, CMP, LIPID, CBC, A1C, TSH, GFR #### [address] [address] Triglyceride [Mass/Vol] 152 mg/dL High 0-150 [facility] ([place]) Comment on above: Result Comment: Trig lyceride Reference Interval: Less than 150 Normal 150-199 Borderline high risk 200-499 High risk 500 or higher Very high risk Performed By: #### A PALLAVI, FT4, ADIFF, CMP, LIPID, CBC, A1C, TSH, GFR #### [id number] [place], [place] [address] TSHon 05-31-2023 TSH Qn 1.05 m[IU]/L Normal 0.36-3.74 [facility] ([place]) Comment on above: Performed By: #### A PALLAVI, FT4, ADIFF, CMP, LIPID, CBC, A1C, TSH, GFR #### [id number] [place], [place] [address] MR Brain WO and W contrast I Von 05-07-2023 [facility] Body fluid appearanceOrdered By: Romain Hurd on 01-13-2023 Appearance (Body fld) CLOUDY [facility] Body fluid color determinati onOrdered By: Romain Hurd on 01-13-2023 Color (Body fld) PINK [facility] Body fluid leukocytes count (number/volume)Ordered By: Romain Hurd on 01-13-2023 WBC (Body fld) [#/Vol] 446 /mm3 [facility] Body fluid lymphocytes/100 l eukocytesOrdered By: Romain Hurd on 01-13-2023 Lymphocytes/100 WBC (Body fld) 3 % [facility] Body fluid segmented neutrop hils count (number/volume)Ordered By: Romain Hurd on 01-13-2023 Segmented neutrophils (Body fld) [#/Vol] 64 % [facility] Cytology report of Body flui d Cyto stainOrdered By: Romain Hurd on 01-13-2023 Cytology report Cyto stain Doc (Body fld) SEE PATHOLOGY REPORT [facility] Comment on above: Specimen submitted t o Anatomical Pathology Department for testing. Glucose Glucometer (BldC) [M ass/Vol]Ordered By: Romain Hurd on 01-13-2023 Glucose [Mass/Vol] 133 mg/dL 74-106 [facility] Comment on above: MANAGEMENT OF PATIEN T CARE PER NURSING PROTOCOL No Panel InformationOrdered By: Romain Hurd on 01-13-2023 Body Fluid Comment 2 Not Reportable [facility] Body Fluid Pathologist Comment Reviewed [facility] Comment on above: Previous reported re sult: May follow Edited by: KASSIE on 01/14/23:1357Negative for malignant cells.You Maxwell M.D. 01/14/23 AMENDED REPORT 01/14/23 1357 PATH COMM/BF previously reported as: May follow Body Fluid RBC 1525 /mm3 [facility] Specimen source identificati on of body fluidOrdered By: Romain Hurd on 01-13-2023 Specimen source Nom (Body fld) BRONCHIAL LAVAGE [facility] Thin prep Papanicolaou smear with manual screeningOrdered By: Romain Hurd on 01-13-2023 Thin prep Papanicolaou smear with manual screening 33 % [facility] Comment on above: LINING CELLSPrevious reported result: 33 %Edited by: LIZBETH on 01/13/23:2016 Total cell countOrdered By: Romain Hurd on 01-13-2023 Cells counted Molgen (Bld/Tiss) [#] TNP [facility] Comment on above: Test not performed .GFRon 12-03-2022 GFR 62 ml/min/1.73sqm Normal [facility] ([place]) Comment on above: Result Comment: GFR Population mean for , Non- Americans Ages 20-29 = 116 mL/min/1.73 sq.m. Ages 30-39 = 107 mL/min/1.73 sq.m. Ages 40-49 = 99 mL/min/1.73 sq.m. Ages 50-59 = 93 mL/min/1.73 sq.m. Ages 60-69 = 85 mL/min/1.73 sq.m. Ages 70+ = 75 mL/min/1.73 sq.m. Chronic Kidney Disease: Less than 60 mL/min/1.73 square meters End Stage Renal Disease: Less than 15 mL/min/1.73 square meters Performed By: #### A PALLAVI, FT4, ADIFF, CMP, LIPID, CBC, A1C, TSH, GFR #### [address] [address] GFR Non- 51 ml/min/1.73sqm Normal [facility] ([place]) Comment on above: Result Comment: GFR Population mean for , Non- Americans Ages 20-29 = 116 mL/min/1.73 sq.m. Ages 30-39 = 107 mL/min/1.73 sq.m. Ages 40-49 = 99 mL/min/1.73 sq.m. Ages 50-59 = 93 mL/min/1.73 sq.m. Ages 60-69 = 85 mL/min/1.73 sq.m. Ages 70+ = 75 mL/min/1.73 sq.m. Chronic Kidney Disease: Less than 60 mL/min/1.73 square meters End Stage Renal Disease: Less than 15 mL/min/1.73 square meters Performed By: #### A PALLAVI, FT4, ADIFF, CMP, LIPID, CBC, A1C, TSH, GFR #### [address] [address] A1Con 12-03-2022 HbA1c (Bld) [Mass fraction] 7.2 % High 4.3-6.4 [facility] ([place]) Comment on above: Performed By: #### G FR, CMP, LIPID, TSH, A1C, VIDH, FT4 #### [address] [address] CMPon 12-03-2022 Albumin Level 4.1 G/dL Normal 3.4-4.8 [facility] ([place]) Comment on above: Performed By: #### A PALLAVI, FT4, ADIFF, CMP, LIPID, CBC, A1C, TSH, GFR #### [address] [address] Albumin/Globulin [Mass ratio] 1.0 {ratio} Low 1.1-2.5 [facility] ([place]) Comment on above: Performed By: #### A PALLAVI, FT4, ADIFF, CMP, LIPID, CBC, A1C, TSH, GFR #### [address] [address] ALP [Catalytic activity/Vol] 94 U/L Normal 40-135 [facility] ([place]) Comment on above: Performed By: #### A PALLAVI, FT4, ADIFF, CMP, LIPID, CBC, A1C, TSH, GFR #### [address] [address] ALT [Catalytic activity/Vol] 36 U/L Normal 16-63 [facility] ([place]) Comment on above: Performed By: #### A PALLAVI, FT4, ADIFF, CMP, LIPID, CBC, A1C, TSH, GFR #### [address] [address] AST [Catalytic activity/Vol] 18 U/L Normal 10-40 [facility] ([place]) Comment on above: Performed By: #### A PALLAVI, FT4, ADIFF, CMP, LIPID, CBC, A1C, TSH, GFR #### [address] [address] Bili Total 0.7 mg/dL Normal 0.2-1.0 [facility] ([place]) Comment on above: Result Comment: Use of this assay is not recommended for patients undergoing treatment with eltrombopag due to the potential for falsely elevated results. Performed By: #### A PALLAVI, FT4, ADIFF, CMP, LIPID, CBC, A1C, TSH, GFR #### [address] [address] BUN/Creatinine Ratio 18 ratio Normal 7-27 [facility] ([place]) Comment on above: Performed By: #### A PALLAVI, FT4, ADIFF, CMP, LIPID, CBC, A1C, TSH, GFR #### [address] [address] Calcium [Mass/Vol] 9.1 mg/dL Normal 8.4-10.2 [facility] ([place]) Comment on above: Performed By: #### A PALLAVI, FT4, ADIFF, CMP, LIPID, CBC, A1C, TSH, GFR #### [address] [address] Chloride [Moles/Vol] 98 mmol/L Normal 98-107 [facility] ([place]) Comment on above: Performed By: #### A PALLAVI, FT4, ADIFF, CMP, LIPID, CBC, A1C, TSH, GFR #### [address] [address] CO2 [Moles/Vol] 27 mmol/L Normal 23-31 [facility] ([place]) Comment on above: Performed By: #### A PALLAVI, FT4, ADIFF, CMP, LIPID, CBC, A1C, TSH, GFR #### [address] [address] Creatinine [Mass/Vol] 1.39 mg/dL High 0.70-1.30 [facility] ([place]) Comment on above: Performed By: #### A PALLAVI, FT4, ADIFF, CMP, LIPID, CBC, A1C, TSH, GFR #### [address] [address] Electrolyte Balance 12.0 mEq/L Normal 4.0-15.0 [facility] ([place]) Comment on above: Performed By: #### A PALLAVI, FT4, ADIFF, CMP, LIPID, CBC, A1C, TSH, GFR #### [address] [address] Globulin 4.1 G/dL Normal [facility] ([place]) Comment on above: Performed By: #### A PALLAVI, FT4, ADIFF, CMP, LIPID, CBC, A1C, TSH, GFR #### [address] [address] Glucose [Mass/Vol] 208 mg/dL High 80-115 [facility] ([place]) Comment on above: Performed By: #### A PALLAVI, FT4, ADIFF, CMP, LIPID, CBC, A1C, TSH, GFR #### [address] [address] Potassium [Moles/Vol] 4.1 mmol/L Normal 3.5-5.1 [facility] ([place]) Comment on above: Performed By: #### A PALLAVI, FT4, ADIFF, CMP, LIPID, CBC, A1C, TSH, GFR #### [address] [address] Sodium [Moles/Vol] 137 mmol/L Normal 136-145 [facility] ([place]) Comment on above: Performed By: #### A PALLAVI, FT4, ADIFF, CMP, LIPID, CBC, A1C, TSH, GFR #### [address] [address] Total Protein 8.2 G/dL Normal 6.4-8.2 [facility] ([place]) Comment on above: Performed By: #### A PALLAVI, FT4, ADIFF, CMP, LIPID, CBC, A1C, TSH, GFR #### [place] [id number] Urea nitrogen [Mass/Vol] 25 mg/dL High 7-18 [facility] ([place]) Comment on above: Performed By: #### A PALLAVI, FT4, ADIFF, CMP, LIPID, CBC, A1C, TSH, GFR #### [address] [address] FT4on 12-03-2022 Free T4 [Mass/Vol] 0.90 ng/dL Normal 0.76-1.46 [facility] ([place]) Comment on above: Performed By: #### A PALLAVI, FT4, ADIFF, CMP, LIPID, CBC, A1C, TSH, GFR #### [address] [address] LABORATORYOrdered By: Catherine Esposito on 12-03-2022 Albumin DL <= 20 mg/L (U) [Mass/Vol] mcg/dL Invalid Interpretation Code AO ADM SS Albumin/Creatinine DL <= 20 mg/L (U) [Mass ratio] Unable to Calcu Invalid Interpretation Code 0 - 30 AO Chemistry S Creatinine (U) [Mass/Vol] mg/dL Invalid Interpretation Code 39.0 - 259.0 mg/dL AO ADM SS Cholesterol [Mass/Vol] 139 mg/dL Invalid Interpretation Code 0 - 200 mg/dL AO ADM SS Comment on above: Interpretive Data: C holesterol Reference Interval: Less than 200 Desirable 200-239 Borderline high risk 240 and above High risk Cholesterol in HDL [Mass/Vol] 43 mg/dL Invalid Interpretation Code 40 - 60 mg/dL AO ADM SS Cholesterol in LDL [Mass/Vol] 48 mg/dL Invalid Interpretation Code 0 - 130 mg/dL AO ADM SS Triglyceride [Mass/Vol] 241 mg/dL Invalid Interpretation Code 0 - 150 mg/dL AO ADM SS Comment on above: Interpretive Data: T riglyceride Reference Interval: Less than 150 Normal 150-199 Borderline high risk 200-499 High risk 500 or higher Very high risk LABORATORYOrdered By: SYSTEM SYSTEM on 12-03-2022 25-hydroxyvitamin D3 [Mass/Vol] 56.8 ng/mL Invalid Interpretation Code AO ADM SS Comment on above: Interpretive Data: I nterpretive Values Based on Total 25(OH) Vitamin D: Deficient <20 ng/mL Insufficient 20 - <30 ng/mL Sufficient 30-100 ng/mL Albumin BCP dye [Mass/Vol] 4.1 G/dL Invalid Interpretation Code 3.4 - 4.8 G/dL AO ADM SS Albumin/Globulin [Mass ratio] 1.0 {ratio} Invalid Interpretation Code 1.1 - 2.5 ratio AO ADM SS ALP [Catalytic activity/Vol] 94 U/L Invalid Interpretation Code 40 - 135 U/L AO ADM SS ALT With P-5'-P [Catalytic activity/Vol] 36 U/L Invalid Interpretation Code 16 - 63 U/L AO ADM SS AST With P-5'-P [Catalytic activity/Vol] 18 U/L Invalid Interpretation Code 10 - 40 U/L AO ADM SS Bilirubin [Mass/Vol] 0.7 mg/dL Invalid Interpretation Code 0.2 - 1.0 mg/dL AO ADM SS Comment on above: Interpretive Data: U se of this assay is not recommended for patients undergoing treatment with eltrombopag due to the potential for falsely elevated results. Calcium [Mass/Vol] 9.1 mg/dL Invalid Interpretation Code 8.4 - 10.2 mg/dL AO ADM SS Chloride [Moles/Vol] 98 mmol/L Invalid Interpretation Code 98 - 107 mmol/L AO ADM SS CO2 [Moles/Vol] 27 mmol/L Invalid Interpretation Code 23 - 31 mmol/L AO ADM SS Creatinine [Mass/Vol] 1.39 mg/dL Invalid Interpretation Code 0.70 - 1.30 mg/dL AO ADM SS Electrolyte Balance 12.0 mEq/L Invalid Interpretation Code 4.0 - 15.0 mEq/L AO ADM SS Free T4 [Mass/Vol] 0.90 ng/dL Invalid Interpretation Code 0.76 - 1.46 ng/dL AO ADM SS GFR/1.73 sq M.predicted among blacks MDRD (S/P/Bld) [Vol rate/Area] 62 ml/min/1.73sqm Invalid Interpretation Code AO Chemistry S Comment on above: Interpretive Data: GFR Population mean for , Non- Americans Ages 20-29 = 116 mL/min/1.73 sq.m. Ages 30-39 = 107 mL/min/1.73 sq.m. Ages 40-49 = 99 mL/min/1.73 sq.m. Ages 50-59 = 93 mL/min/1.73 sq.m. Ages 60-69 = 85 mL/min/1.73 sq.m. Ages 70+ = 75 mL/min/1.73 sq.m. Chronic Kidney Disease: Less than 60 mL/min/1.73 square meters End Stage Renal Disease: Less than 15 mL/min/1.73 square meters GFR/1.73 sq M.predicted among non-blacks MDRD (S/P/Bld) [Vol rate/Area] 51 ml/min/1.73sqm Invalid Interpretation Code AO Chemistry S Comment on above: Interpretive Data: GFR Population mean for , Non- Americans Ages 20-29 = 116 mL/min/1.73 sq.m. Ages 30-39 = 107 mL/min/1.73 sq.m. Ages 40-49 = 99 mL/min/1.73 sq.m. Ages 50-59 = 93 mL/min/1.73 sq.m. Ages 60-69 = 85 mL/min/1.73 sq.m. Ages 70+ = 75 mL/min/1.73 sq.m. Chronic Kidney Disease: Less than 60 mL/min/1.73 square meters End Stage Renal Disease: Less than 15 mL/min/1.73 square meters Globulin 4.1 G/dL Invalid Interpretation Code AO ADM SS Glucose [Mass/Vol] 208 mg/dL Invalid Interpretation Code 80 - 115 mg/dL AO ADM SS HbA1c (Bld) [Mass fraction] 7.2 % Invalid Interpretation Code 4.3 - 6.4 % AO ADM SS Potassium [Moles/Vol] 4.1 mmol/L Invalid Interpretation Code 3.5 - 5.1 mmol/L AO ADM SS Protein [Mass/Vol] 8.2 G/dL Invalid Interpretation Code 6.4 - 8.2 G/dL AO ADM SS Sodium [Moles/Vol] 137 mmol/L Invalid Interpretation Code 136 - 145 mmol/L AO ADM SS TSH Qn 1.90 m[IU]/L Invalid Interpretation Code 0.36 - 3.74 mcIU/mL AO ADM SS Urea nitrogen [Mass/Vol] 25 mg/dL Invalid Interpretation Code 7 - 18 mg/dL AO ADM SS Urea nitrogen/Creatinine [Mass ratio] 18 ratio Invalid Interpretation Code 7 - 27 ratio AO ADM SS LIPIDon 12-03-2022 Cholesterol [Mass/Vol] 139 mg/dL Normal 0-200 [facility] ([place]) Comment on above: Result Comment: Chol esterol Reference Interval: Less than 200 Desirable 200-239 Borderline high risk 240 and above High risk Performed By: #### A PALLAVI, FT4, ADIFF, CMP, LIPID, CBC, A1C, TSH, GFR #### [address] [address] Cholesterol in HDL [Mass/Vol] 43 mg/dL Normal 40-60 [facility] ([place]) Comment on above: Performed By: #### A PALLAVI, FT4, ADIFF, CMP, LIPID, CBC, A1C, TSH, GFR #### [address] [address] Cholesterol in LDL [Mass/Vol] 48 mg/dL Normal 0-130 [facility] ([place]) Comment on above: Performed By: #### A PALLAVI, FT4, ADIFF, CMP, LIPID, CBC, A1C, TSH, GFR #### [address] [address] Triglyceride [Mass/Vol] 241 mg/dL High 0-150 [facility] ([place]) Comment on above: Result Comment: Trig lyceride Reference Interval: Less than 150 Normal 150-199 Borderline high risk 200-499 High risk 500 or higher Very high risk Performed By: #### A PALLAVI, FT4, ADIFF, CMP, LIPID, CBC, A1C, TSH, GFR #### [address] [address] MALBRon 12-03-2022 U Creatinine <13.0 Low 39.0-259.0 [facility] ([place]) Comment on above: Performed By: #### A PALLAVI, FT4, ADIFF, CMP, LIPID, CBC, A1C, TSH, GFR #### [address] [address] U Microalb <130 Normal [facility] ([place]) Comment on above: Performed By: #### A PALLAVI, FT4, ADIFF, CMP, LIPID, CBC, A1C, TSH, GFR #### [address] [address] U Ratio Alb/Cre Unable to Calcu Normal 0-30 [facility] ([place]) Comment on above: Performed By: #### A PALLAVI, FT4, ADIFF, CMP, LIPID, CBC, A1C, TSH, GFR #### [address] [address] TSHon 12-03-2022 TSH Qn 1.90 m[IU]/L Normal 0.36-3.74 [facility] ([place]) Comment on above: Performed By: #### A PALLAVI, FT4, ADIFF, CMP, LIPID, CBC, A1C, TSH, GFR #### [address] [address] VIDHon 12-03-2022 Vit. D 25-Hydroxy 56.8 ng/mL Normal [facility] ([place]) Comment on above: Result Comment: Inte rpretive Values Based on Total 25(OH) Vitamin D: Deficient <20 ng/mL Insufficient 20 - <30 ng/mL Sufficient 30-100 ng/mL Performed By: #### A PALLAVI, FT4, ADIFF, CMP, LIPID, CBC, A1C, TSH, GFR #### [address] [address] .GFRon 06-01-2022 GFR 71 ml/min/1.73sqm Normal [facility] ([place]) Comment on above: Result Comment: GFR Population mean for , Non- Americans Ages 20-29 = 116 mL/min/1.73 sq.m. Ages 30-39 = 107 mL/min/1.73 sq.m. Ages 40-49 = 99 mL/min/1.73 sq.m. Ages 50-59 = 93 mL/min/1.73 sq.m. Ages 60-69 = 85 mL/min/1.73 sq.m. Ages 70+ = 75 mL/min/1.73 sq.m. Chronic Kidney Disease: Less than 60 mL/min/1.73 square meters End Stage Renal Disease: Less than 15 mL/min/1.73 square meters Performed By: #### A PALLAVI, FT4, ADIFF, CMP, LIPID, CBC, A1C, TSH, GFR #### [address] [address] GFR Non- 59 ml/min/1.73sqm Normal [facility] ([place]) Comment on above: Result Comment: GFR Population mean for , Non- Americans Ages 20-29 = 116 mL/min/1.73 sq.m. Ages 30-39 = 107 mL/min/1.73 sq.m. Ages 40-49 = 99 mL/min/1.73 sq.m. Ages 50-59 = 93 mL/min/1.73 sq.m. Ages 60-69 = 85 mL/min/1.73 sq.m. Ages 70+ = 75 mL/min/1.73 sq.m. Chronic Kidney Disease: Less than 60 mL/min/1.73 square meters End Stage Renal Disease: Less than 15 mL/min/1.73 square meters Performed By: #### A PALLAVI, FT4, ADIFF, CMP, LIPID, CBC, A1C, TSH, GFR #### [address] [address] A1Con 06-01-2022 HbA1c (Bld) [Mass fraction] 7.2 % High 4.3-6.4 [facility] ([place]) Comment on above: Performed By: #### A PALLAVI, FT4, ADIFF, CMP, LIPID, CBC, A1C, TSH, GFR #### [address] [address] CMPon 06-01-2022 Albumin Level 3.9 G/dL Normal 3.4-4.8 [facility] ([place]) Comment on above: Performed By: #### A PALLAVI, FT4, ADIFF, CMP, LIPID, CBC, A1C, TSH, GFR #### [address] [address] Albumin/Globulin [Mass ratio] 1.1 {ratio} Normal 1.1-2.5 [facility] ([place]) Comment on above: Performed By: #### A PALLAVI, FT4, ADIFF, CMP, LIPID, CBC, A1C, TSH, GFR #### [address] [address] ALP [Catalytic activity/Vol] 98 U/L Normal 40-135 [facility] ([place]) Comment on above: Performed By: #### A PALLAVI, FT4, ADIFF, CMP, LIPID, CBC, A1C, TSH, GFR #### [address] [address] ALT [Catalytic activity/Vol] 34 U/L Normal 16-63 [facility] ([place]) Comment on above: Performed By: #### A PALLAVI, FT4, ADIFF, CMP, LIPID, CBC, A1C, TSH, GFR #### [address] [address] AST [Catalytic activity/Vol] 13 U/L Normal 10-40 [facility] ([place]) Comment on above: Performed By: #### A PALLAVI, FT4, ADIFF, CMP, LIPID, CBC, A1C, TSH, GFR #### [address] [address] Bili Total 0.6 mg/dL Normal 0.2-1.0 [facility] ([place]) Comment on above: Result Comment: Use of this assay is not recommended for patients undergoing treatment with eltrombopag due to the potential for falsely elevated results. Performed By: #### A PALLAVI, FT4, ADIFF, CMP, LIPID, CBC, A1C, TSH, GFR #### [address] [address] BUN/Creatinine Ratio 17 ratio Normal 7-27 [facility] ([place] Comment on above: Performed By: #### A PALLAVI, FT4, ADIFF, CMP, LIPID, CBC, A1C, TSH, GFR #### [address] [address] Calcium [Mass/Vol] 8.9 mg/dL Normal 8.4-10.2 [facility] ([place]) Comment on above: Performed By: #### A PALLAVI, FT4, ADIFF, CMP, LIPID, CBC, A1C, TSH, GFR #### [address] [address] Chloride [Moles/Vol] 97 mmol/L Low 98-107 [facility] ([place] Comment on above: Performed By: #### A PALLAVI, FT4, ADIFF, CMP, LIPID, CBC, A1C, TSH, GFR #### [address] [address] CO2 [Moles/Vol] 29 mmol/L Normal 23-31 [facility] ([place]) Comment on above: Performed By: #### A PALLAVI, FT4, ADIFF, CMP, LIPID, CBC, A1C, TSH, GFR #### [address] [address] Creatinine [Mass/Vol] 1.23 mg/dL Normal 0.70-1.30 [facility] ([place]) Comment on above: Performed By: #### A PALLAVI, FT4, ADIFF, CMP, LIPID, CBC, A1C, TSH, GFR #### [address] [address] Electrolyte Balance 7.0 mEq/L Normal 4.0-15.0 [facility] ([place]) Comment on above: Performed By: #### A PALLAVI, FT4, ADIFF, CMP, LIPID, CBC, A1C, TSH, GFR #### [address] [address] Globulin 3.5 G/dL Normal [facility] ([place]) Comment on above: Performed By: #### A PALLAVI, FT4, ADIFF, CMP, LIPID, CBC, A1C, TSH, GFR #### [address] [address] Glucose [Mass/Vol] 172 mg/dL High 80-115 [facility] ([place] Comment on above: Performed By: #### A PALLAVI, FT4, ADIFF, CMP, LIPID, CBC, A1C, TSH, GFR #### [address] [address] Potassium [Moles/Vol] 4.5 mmol/L Normal 3.5-5.1 [facility] ([place]) Comment on above: Performed By: #### A PALLAVI, FT4, ADIFF, CMP, LIPID, CBC, A1C, TSH, GFR #### [address] [address] Sodium [Moles/Vol] 133 mmol/L Low 136-145 [facility] ([place]) Comment on above: Performed By: #### A PALLAVI, FT4, ADIFF, CMP, LIPID, CBC, A1C, TSH, GFR #### [address] [address] Total Protein 7.4 G/dL Normal 6.4-8.2 [facility] ([place]) Comment on above: Performed By: #### A PALLAVI, FT4, ADIFF, CMP, LIPID, CBC, A1C, TSH, GFR #### [address] [address] Urea nitrogen [Mass/Vol] 21 mg/dL High 7-18 [facility] ([place]) Comment on above: Performed By: #### A PALLAVI, FT4, ADIFF, CMP, LIPID, CBC, A1C, TSH, GFR #### [address] [address] LABORATORYOrdered By: SYSTEM SYSTEM on 06-01-2022 Albumin BCP dye [Mass/Vol] 3.9 G/dL Invalid Interpretation Code 3.4 - 4.8 G/dL AO ADM SS Albumin/Globulin [Mass ratio] 1.1 {ratio} Invalid Interpretation Code 1.1 - 2.5 ratio AO ADM SS ALP [Catalytic activity/Vol] 98 U/L Invalid Interpretation Code 40 - 135 U/L AO ADM SS ALT With P-5'-P [Catalytic activity/Vol] 34 U/L Invalid Interpretation Code 16 - 63 U/L AO ADM SS AST With P-5'-P [Catalytic activity/Vol] 13 U/L Invalid Interpretation Code 10 - 40 U/L AO ADM SS Bilirubin [Mass/Vol] 0.6 mg/dL Invalid Interpretation Code 0.2 - 1.0 mg/dL AO ADM SS Calcium [Mass/Vol] 8.9 mg/dL Invalid Interpretation Code 8.4 - 10.2 mg/dL AO ADM SS Chloride [Moles/Vol] 97 mmol/L Invalid Interpretation Code 98 - 107 mmol/L AO ADM SS CO2 [Moles/Vol] 29 mmol/L Invalid Interpretation Code 23 - 31 mmol/L AO ADM SS Creatinine [Mass/Vol] 1.23 mg/dL Invalid Interpretation Code 0.70 - 1.30 mg/dL AO ADM SS Electrolyte Balance 7.0 mEq/L Invalid Interpretation Code 4.0 - 15.0 mEq/L AO ADM SS GFR 71 ml/min/1.73sqm Invalid Interpretation Code AO Chemistry S GFR Non- 59 ml/min/1.73sqm Invalid Interpretation Code AO Chemistry S Globulin 3.5 G/dL Invalid Interpretation Code AO ADM SS Glucose [Mass/Vol] 172 mg/dL Invalid Interpretation Code 80 - 115 mg/dL AO ADM SS HbA1c (Bld) [Mass fraction] 7.2 % Invalid Interpretation Code 4.3 - 6.4 % AO ADM SS Potassium [Moles/Vol] 4.5 mmol/L Invalid Interpretation Code 3.5 - 5.1 mmol/L AO ADM SS Protein [Mass/Vol] 7.4 G/dL Invalid Interpretation Code 6.4 - 8.2 G/dL AO ADM SS Sodium [Moles/Vol] 133 mmol/L Invalid Interpretation Code 136 - 145 mmol/L AO ADM SS TSH Qn 1.29 m[IU]/L Invalid Interpretation Code 0.36 - 3.74 mcIU/mL AO ADM SS Urea nitrogen [Mass/Vol] 21 mg/dL Invalid Interpretation Code 7 - 18 mg/dL AO ADM SS Urea nitrogen/Creatinine [Mass ratio] 17 ratio Invalid Interpretation Code 7 - 27 ratio AO ADM SS Vit. D 25-Hydroxy 65.0 ng/mL Invalid Interpretation Code AO ADM SS LABORATORYOrdered By: Catherine Esposito on 06-01-2022 Cholesterol [Mass/Vol] 122 mg/dL Invalid Interpretation Code 0 - 200 mg/dL AO ADM SS Cholesterol in HDL [Mass/Vol] 41 mg/dL Invalid Interpretation Code 40 - 60 mg/dL AO ADM SS Cholesterol in LDL [Mass/Vol] 48 mg/dL Invalid Interpretation Code 0 - 130 mg/dL AO ADM SS Triglyceride [Mass/Vol] 164 mg/dL Invalid Interpretation Code 0 - 150 mg/dL AO ADM SS LIPIDon 06-01-2022 Cholesterol [Mass/Vol] 122 mg/dL Normal 0-200 [facility] ([place]) Comment on above: Result Comment: Chol esterol Reference Interval: Less than 200 Desirable 200-239 Borderline high risk 240 and above High risk Performed By: #### A PALLAVI, FT4, ADIFF, CMP, LIPID, CBC, A1C, TSH, GFR #### [address] [address] Cholesterol in HDL [Mass/Vol] 41 mg/dL Normal 40-60 [facility] ([place]) Comment on above: Performed By: #### A PALLAVI, FT4, ADIFF, CMP, LIPID, CBC, A1C, TSH, GFR #### [address] [address] Cholesterol in LDL [Mass/Vol] 48 mg/dL Normal 0-130 [facility] ([place]) Comment on above: Performed By: #### A PALLAVI, FT4, ADIFF, CMP, LIPID, CBC, A1C, TSH, GFR #### [address] [address] Triglyceride [Mass/Vol] 164 mg/dL High 0-150 [facility] ([place]) Comment on above: Result Comment: Trig lyceride Reference Interval: Less than 150 Normal 150-199 Borderline high risk 200-499 High risk 500 or higher Very high risk Performed By: #### A PALLAVI, FT4, ADIFF, CMP, LIPID, CBC, A1C, TSH, GFR #### [address] [address] TSHon 06-01-2022 TSH Qn 1.29 m[IU]/L Normal 0.36-3.74 [facility] ([place]) Comment on above: Performed By: #### A PALLAIV, FT4, ADIFF, CMP, LIPID, CBC, A1C, TSH, GFR #### [address] [address] VIDHon 06-01-2022 Vit. D 25-Hydroxy 65.0 ng/mL Normal [facility] ([place]) Comment on above: Result Comment: Inte rpretive Values Based on Total 25(OH) Vitamin D: Deficient <20 ng/mL Insufficient 20 - <30 ng/mL Sufficient 30-100 ng/mL Performed By: #### A PALLAVI, FT4, ADIFF, CMP, LIPID, CBC, A1C, TSH, GFR #### [place] [id number] [place] [address] LABORATORYOrdered By: Adan Duffy on 01-09-2022 Albumin DL <= 20 mg/L (U) [Mass/Vol] 153 mcg/dL Invalid Interpretation Code AO ADM SS Albumin/Creatinine DL <= 20 mg/L (U) [Mass ratio] See Comment Invalid Interpretation Code 0 - 30 AO Chemistry S Comment on above: Result Comment: Unab le to calculate this test result accurately. Results used to calculate this test are outside the reportable range. Creatinine (U) [Mass/Vol] mg/dL Invalid Interpretation Code 39.0 - 259.0 mg/dL AO ADM SS Albumin BCP dye [Mass/Vol] 4.1 G/dL Invalid Interpretation Code 3.4 - 4.8 G/dL AO ADM SS Albumin/Globulin [Mass ratio] 1.3 {ratio} Invalid Interpretation Code 1.1 - 2.5 ratio AO ADM SS ALP [Catalytic activity/Vol] 93 U/L Invalid Interpretation Code 40 - 135 U/L AO ADM SS ALT With P-5'-P [Catalytic activity/Vol] 33 U/L Invalid Interpretation Code 16 - 63 U/L AO ADM SS AST With P-5'-P [Catalytic activity/Vol] 16 U/L Invalid Interpretation Code 10 - 40 U/L AO ADM SS Bilirubin [Mass/Vol] 0.5 mg/dL Invalid Interpretation Code 0.2 - 1.0 mg/dL AO ADM SS Calcium [Mass/Vol] 9.4 mg/dL Invalid Interpretation Code 8.4 - 10.2 mg/dL AO ADM SS Chloride [Moles/Vol] 100 mmol/L Invalid Interpretation Code 98 - 107 mmol/L AO ADM SS CO2 [Moles/Vol] 30 mmol/L Invalid Interpretation Code 23 - 31 mmol/L AO ADM SS Creatinine [Mass/Vol] 1.23 mg/dL Invalid Interpretation Code 0.70 - 1.30 mg/dL AO ADM SS Electrolyte Balance 7.0 mEq/L Invalid Interpretation Code 4.0 - 15.0 mEq/L AO ADM SS Globulin 3.2 G/dL Invalid Interpretation Code AO ADM SS Glucose [Mass/Vol] 167 mg/dL Invalid Interpretation Code 80 - 115 mg/dL AO ADM SS HbA1c (Bld) [Mass fraction] 7.2 % Invalid Interpretation Code 4.3 - 6.4 % AO ADM SS Potassium [Moles/Vol] 4.3 mmol/L Invalid Interpretation Code 3.5 - 5.1 mmol/L AO ADM SS Prostate specific Ag [Mass/Vol] 0.50 ng/mL Invalid Interpretation Code 0.00 - 4.00 ng/mL AO ADM SS Protein [Mass/Vol] 7.3 G/dL Invalid Interpretation Code 6.4 - 8.2 G/dL AO ADM SS Sodium [Moles/Vol] 137 mmol/L Invalid Interpretation Code 136 - 145 mmol/L AO ADM SS Urea nitrogen [Mass/Vol] 20 mg/dL Invalid Interpretation Code 7 - 18 mg/dL AO ADM SS Urea nitrogen/Creatinine [Mass ratio] 16 ratio Invalid Interpretation Code 7 - 27 ratio AO ADM SS Vit. D 25-Hydroxy 72.4 ng/mL Invalid Interpretation Code AO ADM SS LABORATORYOrdered By: [employer] on 01-09-2022 GFR 72 ml/min/1.73sqm Invalid Interpretation Code AO Chemistry S GFR Non- 59 ml/min/1.73sqm Invalid Interpretation Code AO Chemistry S LABORATORYOrdered By: Adan Duffy on 11-07-2021 Creatinine [Mass/Vol] 1.21 mg/dL Invalid Interpretation Code 0.70 - 1.30 mg/dL AO ADM SS LABORATORYOrdered By: [employer] on 11-07-2021 GFR 73 ml/min/1.73sqm Invalid Interpretation Code AO Chemistry S GFR Non- 60 ml/min/1.73sqm Invalid Interpretation Code AO Chemistry S LABORATORYOrdered By: Adan Duffy on 09-04-2021 Albumin BCP dye [Mass/Vol] 4.0 G/dL Invalid Interpretation Code 3.4 - 4.8 G/dL AO ADM SS Albumin/Globulin [Mass ratio] 1.3 {ratio} Invalid Interpretation Code 1.1 - 2.5 ratio AO ADM SS ALP [Catalytic activity/Vol] 78 U/L Invalid Interpretation Code 40 - 135 U/L AO ADM SS ALT With P-5'-P [Catalytic activity/Vol] 30 U/L Invalid Interpretation Code 16 - 63 U/L AO ADM SS AST With P-5'-P [Catalytic activity/Vol] 18 U/L Invalid Interpretation Code 10 - 40 U/L AO ADM SS Bilirubin [Mass/Vol] 0.6 mg/dL Invalid Interpretation Code 0.2 - 1.0 mg/dL AO ADM SS Calcium [Mass/Vol] 9.4 mg/dL Invalid Interpretation Code 8.4 - 10.2 mg/dL AO ADM SS Chloride [Moles/Vol] 100 mmol/L Invalid Interpretation Code 98 - 107 mmol/L AO ADM SS Cholesterol [Mass/Vol] 101 mg/dL Invalid Interpretation Code 0 - 200 mg/dL AO ADM SS Cholesterol in HDL [Mass/Vol] 44 mg/dL Invalid Interpretation Code 40 - 60 mg/dL AO ADM SS Cholesterol in LDL [Mass/Vol] 35 mg/dL Invalid Interpretation Code 0 - 130 mg/dL AO ADM SS CO2 [Moles/Vol] 28 mmol/L Invalid Interpretation Code 23 - 31 mmol/L AO ADM SS Creatinine [Mass/Vol] 1.17 mg/dL Invalid Interpretation Code 0.70 - 1.30 mg/dL AO ADM SS Electrolyte Balance 9.0 mEq/L Invalid Interpretation Code 4.0 - 15.0 mEq/L AO ADM SS Globulin 3.1 G/dL Invalid Interpretation Code AO ADM SS Glucose [Mass/Vol] 142 mg/dL Invalid Interpretation Code 80 - 115 mg/dL AO ADM SS HbA1c (Bld) [Mass fraction] 6.9 % Invalid Interpretation Code 4.3 - 6.4 % AO ADM SS Potassium [Moles/Vol] 3.6 mmol/L Invalid Interpretation Code 3.5 - 5.1 mmol/L AO ADM SS Protein [Mass/Vol] 7.1 G/dL Invalid Interpretation Code 6.4 - 8.2 G/dL AO ADM SS Sodium [Moles/Vol] 137 mmol/L Invalid Interpretation Code 136 - 145 mmol/L AO ADM SS Triglyceride [Mass/Vol] 111 mg/dL Invalid Interpretation Code 0 - 150 mg/dL AO ADM SS TSH Qn 0.94 m[IU]/L Invalid Interpretation Code 0.36 - 3.74 mcIU/mL AO ADM SS Urea nitrogen [Mass/Vol] 14 mg/dL Invalid Interpretation Code 7 - 18 mg/dL AO ADM SS Urea nitrogen/Creatinine [Mass ratio] 12 ratio Invalid Interpretation Code 7 - 27 ratio AO ADM SS Vit. D 25-Hydroxy 94.0 ng/mL Invalid Interpretation Code AO ADM SS LABORATORYOrdered By: SYSTEM SYSTEM on 09-04-2021 GFR 76 ml/min/1.73sqm Invalid Interpretation Code AO Chemistry S GFR Non- 63 ml/min/1.73sqm Invalid Interpretation Code AO Chemistry S LABORATORYOrdered By: Phuong Dumont on 05-01-2021 Albumin BCP dye [Mass/Vol] 3.9 G/dL Invalid Interpretation Code 3.4 - 4.8 G/dL AO ADM SS Albumin/Globulin [Mass ratio] 1.1 {ratio} Invalid Interpretation Code 1.1 - 2.5 ratio AO ADM SS ALP [Catalytic activity/Vol] 88 U/L Invalid Interpretation Code 40 - 135 U/L AO ADM SS ALT With P-5'-P [Catalytic activity/Vol] 35 U/L Invalid Interpretation Code 16 - 63 U/L AO ADM SS AST With P-5'-P [Catalytic activity/Vol] 19 U/L Invalid Interpretation Code 10 - 40 U/L AO ADM SS Bilirubin [Mass/Vol] 0.5 mg/dL Invalid Interpretation Code 0.2 - 1.0 mg/dL AO ADM SS Calcium [Mass/Vol] 9.3 mg/dL Invalid Interpretation Code 8.4 - 10.2 mg/dL AO ADM SS Chloride [Moles/Vol] 103 mmol/L Invalid Interpretation Code 98 - 107 mmol/L AO ADM SS CO2 [Moles/Vol] 30 mmol/L Invalid Interpretation Code 23 - 31 mmol/L AO ADM SS Creatinine [Mass/Vol] 1.33 mg/dL Invalid Interpretation Code 0.70 - 1.30 mg/dL AO ADM SS Electrolyte Balance 11.0 mEq/L Invalid Interpretation Code 4.0 - 15.0 mEq/L AO ADM SS Globulin 3.5 G/dL Invalid Interpretation Code AO ADM SS Glucose [Mass/Vol] 181 mg/dL Invalid Interpretation Code 80 - 115 mg/dL AO ADM SS HbA1c (Bld) [Mass fraction] 7.2 % Invalid Interpretation Code 4.3 - 6.4 % AO ADM SS Potassium [Moles/Vol] 4.4 mmol/L Invalid Interpretation Code 3.5 - 5.1 mmol/L AO ADM SS Protein [Mass/Vol] 7.4 G/dL Invalid Interpretation Code 6.4 - 8.2 G/dL AO ADM SS Sodium [Moles/Vol] 144 mmol/L Invalid Interpretation Code 136 - 145 mmol/L AO ADM SS Urea nitrogen [Mass/Vol] 16 mg/dL Invalid Interpretation Code 7 - 18 mg/dL AO ADM SS Urea nitrogen/Creatinine [Mass ratio] 12 ratio Invalid Interpretation Code 7 - 27 ratio AO ADM SS Vit. D 25-Hydroxy 85.6 ng/mL Invalid Interpretation Code AO ADM SS LABORATORYOrdered By: SYSTEM SYSTEM on 05-01-2021 GFR 65 ml/min/1.73sqm Invalid Interpretation Code AO Chemistry S GFR Non- 54 ml/min/1.73sqm Invalid Interpretation Code AO Chemistry S LABORATORYOrdered By: Mary Escamilla on 12-25-2020 Albumin BCP dye [Mass/Vol] 3.8 G/dL Invalid Interpretation Code 3.4 - 4.8 G/dL AO ADM SS Albumin DL <= 20 mg/L (U) [Mass/Vol] mcg/dL Invalid Interpretation Code AO Chemistry S Albumin/Creatinine DL <= 20 mg/L (U) [Mass ratio] mcg/mg Invalid Interpretation Code 0 - 30 mcg/mg AO Chemistry S Albumin/Globulin [Mass ratio] 1.1 {ratio} Invalid Interpretation Code 1.1 - 2.5 ratio AO ADM SS ALP [Catalytic activity/Vol] 96 U/L Invalid Interpretation Code 40 - 135 U/L AO ADM SS ALT With P-5'-P [Catalytic activity/Vol] 36 U/L Invalid Interpretation Code 16 - 63 U/L AO ADM SS AST With P-5'-P [Catalytic activity/Vol] 15 U/L Invalid Interpretation Code 10 - 40 U/L AO ADM SS Bilirubin [Mass/Vol] 0.6 mg/dL Invalid Interpretation Code 0.2 - 1.0 mg/dL AO ADM SS Calcium [Mass/Vol] 8.9 mg/dL Invalid Interpretation Code 8.4 - 10.2 mg/dL AO ADM SS Chloride [Moles/Vol] 99 mmol/L Invalid Interpretation Code 98 - 107 mmol/L AO ADM SS Cholesterol [Mass/Vol] 112 mg/dL Invalid Interpretation Code 0 - 200 mg/dL AO ADM SS Cholesterol in HDL [Mass/Vol] 44 mg/dL Invalid Interpretation Code 40 - 60 mg/dL AO ADM SS Cholesterol in LDL [Mass/Vol] 40 mg/dL Invalid Interpretation Code 0 - 130 mg/dL AO ADM SS CO2 [Moles/Vol] 30 mmol/L Invalid Interpretation Code 23 - 31 mmol/L AO ADM SS Creatinine (U) [Mass/Vol] 28.8 mg/dL Invalid Interpretation Code 39.0 - 259.0 mg/dL AO ADM SS Creatinine [Mass/Vol] 1.30 mg/dL Invalid Interpretation Code 0.70 - 1.30 mg/dL AO ADM SS Electrolyte Balance 7.0 mEq/L Invalid Interpretation Code AO ADM SS Globulin 3.6 G/dL Invalid Interpretation Code AO ADM SS Glucose [Mass/Vol] 151 mg/dL Invalid Interpretation Code 80 - 115 mg/dL AO ADM SS HbA1c (Bld) [Mass fraction] 6.9 % Invalid Interpretation Code 4.3 - 6.4 % AO ADM SS Potassium [Moles/Vol] 4.2 mmol/L Invalid Interpretation Code 3.5 - 5.1 mmol/L AO ADM SS Protein [Mass/Vol] 7.4 G/dL Invalid Interpretation Code 6.4 - 8.2 G/dL AO ADM SS Sodium [Moles/Vol] 136 mmol/L Invalid Interpretation Code 136 - 145 mmol/L AO ADM SS Triglyceride [Mass/Vol] 138 mg/dL Invalid Interpretation Code 0 - 150 mg/dL AO ADM SS TSH Qn 0.79 m[IU]/L Invalid Interpretation Code 0.36 - 3.74 mcIU/mL AO ADM SS Urea nitrogen [Mass/Vol] 12 mg/dL Invalid Interpretation Code 7 - 18 mg/dL AO ADM SS Urea nitrogen/Creatinine [Mass ratio] 9 ratio Invalid Interpretation Code 7 - 27 ratio AO ADM SS LABORATORYOrdered By: SYSTEM SYSTEM on 12-25-2020 GFR 67 ml/min/1.73sqm Invalid Interpretation Code AO Chemistry S GFR Non- 56 ml/min/1.73sqm Invalid Interpretation Code AO Chemistry S Vital Signs Date Time Vital Sign Value Performing Clinician Facility 10-19-2024 20:22-0400 Body temperature 97.8 [degF] Dr. Angelica Saleh MD Work Phone: [facility] 10-19-2024 20:22-0400 Diastolic blood pressure 63 mm[Hg] Dr. Angelica Saleh MD Work Phone: [facility] 10-19-2024 20:22-0400 Heart rate 88 /min Dr. Angelica Saleh MD Work Phone: [facility] 10-19-2024 20:22-0400 Respiratory rate 19 /min Dr. Angelica Saleh MD Work Phone: [facility] 10-19-2024 20:22-0400 SaO2% (BldA) [Mass fraction] 99 % Dr. Angelica Saleh MD Work Phone: [facility] 10-19-2024 20:22-0400 Systolic blood pressure 122 mm[Hg] Dr. Angelica Saleh MD Work Phone: [facility] 10-19-2024 20:00-0400 Inhaled oxygen flow rate 3 L/min Dr. Angelica Saleh MD Work Phone: [facility] 10-19-2024 15:08-0400 Body height 175.[address] Angelica Saleh MD Work Phone: [facility] 10-19-2024 15:08-0400 Body mass index (BMI) [Ratio] 22.8 kg/m2 Dr. Angelica Saleh MD Work Phone: [facility] 10-19-2024 15:08-0400 Body weight 70.[address] Angelica Saleh MD Work Phone: [facility] 10-09-2024 10:30-0400 Body temperature 97.39 [degF] Va Dunaway MD Work Phone: [facility] 10-09-2024 10:30-0400 Diastolic blood pressure 53 mm[Hg] Va Dunaway MD Work Phone: [facility] Comment on above: 94/59 10-09-2024 10:30-0400 Heart rate 96 /min Va Dunaway MD Work Phone: [facility] 10-09-2024 10:30-0400 Respiratory rate 20 /min Va Dunaway MD Work Phone: [facility] 10-09-2024 10:30-0400 SaO2% (BldA) [Mass fraction] 98 % Va Dunaway MD Work Phone: [facility] 10-09-2024 10:30-0400 Systolic blood pressure 87 mm[Hg] Va Dunaway MD Work Phone: [facility] Comment on above: 94/59 10-05-2024 23:20-0400 Body temperature 98 [degF] Dr. Angelica Saleh MD Work Phone: [facility] 10-05-2024 23:20-0400 Diastolic blood pressure 67 mm[Hg] Dr. Angelica Saleh MD Work Phone: [facility] 10-05-2024 23:20-0400 Heart rate 88 /min Dr. Angelica Saleh MD Work Phone: [facility] 10-05-2024 23:20-0400 Respiratory rate 21 /min Dr. Angelica Saleh MD Work Phone: [facility] 10-05-2024 23:20-0400 SaO2% (BldA) [Mass fraction] 99 % Dr. Angelica Saleh MD Work Phone: [facility] 10-05-2024 23:20-0400 Systolic blood pressure 131 mm[Hg] Dr. Angelica Saleh MD Work Phone: [facility] 10-05-2024 23:14-0400 Inhaled oxygen flow rate 3 L/min Dr. Angelica Saleh MD Work Phone: [facility] 10-05-2024 16:04-0400 Body mass index (BMI) [Ratio] 25.9 kg/m2 Dr. Angelica Saleh MD Work Phone: [facility] 10-05-2024 16:04-0400 Body weight 79.[address] Angelica Saleh MD Work Phone: [facility] 10-05-2024 10:15-0400 Body mass index (BMI) [Ratio] 24 kg/m2 Dr. Angelica Saleh MD Work Phone: [facility] 10-05-2024 10:15-0400 Body temperature 95.3 [degF] Dr. Angelica Saleh MD Work Phone: [facility] 10-05-2024 10:15-0400 Body weight 73.[address] Angelica Saleh MD Work Phone: [facility] 10-05-2024 10:15-0400 Diastolic blood pressure 40 mm[Hg] Dr. Angelica Saleh MD Work Phone: [facility] 10-05-2024 10:15-0400 Heart rate 107 /min Dr. Angelica Saleh MD Work Phone: [facility] 10-05-2024 10:15-0400 Inhaled oxygen flow rate 3 L/min Dr. Angelica Saleh MD Work Phone: [facility] 10-05-2024 10:15-0400 Respiratory rate 16 /min Dr. Angelica Saleh MD Work Phone: [facility] 10-05-2024 10:15-0400 SaO2% (BldA) [Mass fraction] 97 % Dr. Angelica Saleh MD Work Phone: [facility] 10-05-2024 10:15-0400 Systolic blood pressure 75 mm[Hg] Dr. Angelica Saleh MD Work Phone: [facility] 09-25-2024 17:13-0400 Body temperature 98.2 [degF] Dr. Angelica Saleh MD Work Phone: [facility] 09-25-2024 17:13-0400 Diastolic blood pressure 66 mm[Hg] Dr. Angelica Saleh MD Work Phone: [facility] 09-25-2024 17:13-0400 Heart rate 92 /min Dr. Angelica Saleh MD Work Phone: [facility] 09-25-2024 17:13-0400 Inhaled oxygen flow rate 3 L/min Dr. Angelica Saleh MD Work Phone: [facility] 09-25-2024 17:13-0400 Respiratory rate 17 /min Dr. Angelica Saleh MD Work Phone: [facility] 09-25-2024 17:13-0400 SaO2% (BldA) [Mass fraction] 100 % Dr. Angelica Saleh MD Work Phone: [facility] 09-25-2024 17:13-0400 Systolic blood pressure 121 mm[Hg] Dr. Angelica Saleh MD Work Phone: [facility] 09-25-2024 04:59-0400 Body mass index (BMI) [Ratio] 25.5 kg/m2 Dr. Angelica Saleh MD Work Phone: [facility] 09-25-2024 04:59-0400 Body weight 78.[address] Angelica Saleh MD Work Phone: [facility] 09-11-2024 16:00-0400 Body temperature 97.5 [degF] Dr. Angelica Saleh MD Work Phone: [facility] 09-11-2024 16:00-0400 Diastolic blood pressure 74 mm[Hg] Dr. Angelica Saleh MD Work Phone: [facility] 09-11-2024 16:00-0400 Heart rate 90 /min Dr. Angelica Saleh MD Work Phone: [facility] 09-11-2024 16:00-0400 Respiratory rate 16 /min Dr. Angelica Saleh MD Work Phone: [facility] 09-11-2024 16:00-0400 SaO2% (BldA) [Mass fraction] 93 % Dr. Angelica Saleh MD Work Phone: [facility] 09-11-2024 16:00-0400 Systolic blood pressure 143 mm[Hg] Dr. Angelica Saleh MD Work Phone: [facility] 09-11-2024 11:02-0400 Inhaled oxygen flow rate 3 L/min Dr. Angelica Saleh MD Work Phone: [facility] 09-11-2024 03:14-0400 Body mass index (BMI) [Ratio] 27 kg/m2 Dr. Angelica Saleh MD Work Phone: [facility] 09-11-2024 03:14-0400 Body weight 83.[address] Angelica Saleh MD Work Phone: [facility] 09-10-2024 11:31-0400 Body height 175.[address] Angelica Saleh MD Work Phone: [facility] 09-04-2024 16:14-0400 Body height 175.[address] Angelica Saleh MD Work Phone: [facility] 09-04-2024 16:14-0400 Body mass index (BMI) [Ratio] 17.4 kg/m2 Dr. Angelica Saleh MD Work Phone: [facility] 09-04-2024 16:14-0400 Body weight 53.[address] Angelica Saleh MD Work Phone: [facility] 09-04-2024 16:03-0400 Body temperature 99.6 [degF] Dr. Angelica Saleh MD Work Phone: [facility] 09-04-2024 16:03-0400 Diastolic blood pressure 69 mm[Hg] Dr. Angelica Saleh MD Work Phone: [facility] 09-04-2024 16:03-0400 Heart rate 121 /min Dr. Angelica Saleh MD Work Phone: [facility] 09-04-2024 16:03-0400 Respiratory rate 25 /min Dr. Angelica Saleh MD Work Phone: [facility] 09-04-2024 16:03-0400 SaO2% (BldA) [Mass fraction] 92 % Dr. Angelica Saleh MD Work Phone: [facility] 09-04-2024 16:03-0400 Systolic blood pressure 103 mm[Hg] Dr. Angelica Saleh MD Work Phone: [facility] 08-28-2024 13:03-0400 Body temperature 97.39 [degF] Jonh Hobson MD Work Phone: [facility] 08-28-2024 13:03-0400 Diastolic blood pressure 48 mm[Hg] Jonh Hobson MD Work Phone: [facility] 08-28-2024 13:03-0400 Heart rate 77 /min Jonh Hobson MD Work Phone: [facility] 08-28-2024 13:03-0400 Respiratory rate 15 /min Jonh Hobson MD Work Phone: [facility] 08-28-2024 13:03-0400 SaO2% (BldA) [Mass fraction] 97 % Jonh Hobson MD Work Phone: [facility] 08-28-2024 13:03-0400 Systolic blood pressure 90 mm[Hg] Jonh Hobson MD Work Phone: [facility] 08-17-2024 11:48-0400 Body mass index (BMI) [Ratio] 26.79 kg/m2 Valdemar Duncan MD Work Phone: [facility] 08-17-2024 11:48-0400 Body temperature 97.3 [degF] Valdemar Duncan MD Work Phone: [facility] 08-17-2024 11:48-0400 Body weight 83.92 kg Valdemar Duncan MD Work Phone: [facility] 08-17-2024 11:48-0400 Diastolic blood pressure 65 mm[Hg] Valdemar Duncan MD Work Phone: [facility] 08-17-2024 11:48-0400 Heart rate 94 /min Valdemar Duncan MD Work Phone: [facility] 08-17-2024 11:48-0400 SaO2% (BldA) [Mass fraction] 98 % Valdeamr Duncan MD Work Phone: [facility] 08-17-2024 11:48-0400 Systolic blood pressure 109 mm[Hg] Valdemar Duncan MD Work Phone: [facility] 07-24-2024 10:08-0400 Body temperature 97.5 [degF] Dr. Angelica Saleh MD Work Phone: [facility] 07-24-2024 10:08-0400 Body weight 84.[address] Angelica Saleh MD Work Phone: [facility] 07-24-2024 10:08-0400 Diastolic blood pressure 67 mm[Hg] Dr. Angelica Saleh MD Work Phone: [facility] 07-24-2024 10:08-0400 Heart rate 106 /min Dr. Angelica Saleh MD Work Phone: [facility] 07-24-2024 10:08-0400 Respiratory rate 16 /min Dr. Angelica Saleh MD Work Phone: [facility] 07-24-2024 10:08-0400 SaO2% (BldA) [Mass fraction] 96 % Dr. Angelica Saleh MD Work Phone: [facility] 07-24-2024 10:08-0400 Systolic blood pressure 108 mm[Hg] Dr. Angelica aSleh MD Work Phone: [facility] 07-13-2024 09:28-0400 Body mass index (BMI) [Ratio] 28.09 kg/m2 Valdemar Duncan MD Work Phone: [facility] 07-13-2024 09:28-0400 Body temperature 97.7 [degF] Valdemar Duncan MD Work Phone: [facility] 07-13-2024 09:28-0400 Body weight 88 kg Valdemar Duncan MD Work Phone: [facility] 07-13-2024 09:28-0400 Diastolic blood pressure 69 mm[Hg] Valdemar Duncan MD Work Phone: [facility] 07-13-2024 09:28-0400 Heart rate 89 /min Valdemar Duncan MD Work Phone: [facility] 07-13-2024 09:28-0400 Respiratory rate 12 /min Valdemar Duncan MD Work Phone: [facility] 07-13-2024 09:28-0400 SaO2% (BldA) [Mass fraction] 98 % Valdemar Duncan MD Work Phone: [facility] 07-13-2024 09:28-0400 Systolic blood pressure 103 mm[Hg] Valdemar Duncan MD Work Phone: [facility] 06-26-2024 11:37-0400 Body height 175.[address] Romain Roach DO Work Phone: [facility] 06-26-2024 11:37-0400 Body mass index (BMI) [Ratio] 29.5 kg/m2 Dr. Romain Roach DO Work Phone: [facility] 06-26-2024 11:37-0400 Body weight 90.[address] Romain Roach DO Work Phone: [facility] 06-26-2024 11:37-0400 Diastolic blood pressure 71 mm[Hg] Dr. Romain Roach DO Work Phone: [facility] 06-26-2024 11:37-0400 Heart rate 86 /min Dr. Romain Roach DO Work Phone: [facility] 06-26-2024 11:37-0400 Respiratory rate 20 /min Dr. Romain Roach DO Work Phone: [facility] 06-26-2024 11:37-0400 SaO2% (BldA) [Mass fraction] 95 % Dr. Romain Roach DO Work Phone: [facility] 06-26-2024 11:37-0400 Systolic blood pressure 127 mm[Hg] Dr. Romain Roach DO Work Phone: [facility] 06-14-2024 13:58-0400 Body height 175.[address] Romain Roach DO Work Phone: [facility] 06-14-2024 13:58-0400 Body mass index (BMI) [Ratio] 29.9 kg/m2 Dr. Romain Roach DO Work Phone: [facility] 06-14-2024 13:58-0400 Body temperature 97.4 [degF] Dr. Romain Roach DO Work Phone: [facility] 06-14-2024 13:58-0400 Body weight 92.[address] Romain Roach DO Work Phone: [facility] 06-14-2024 13:58-0400 Diastolic blood pressure 70 mm[Hg] Dr. Romain Roach DO Work Phone: [facility] 06-14-2024 13:58-0400 Heart rate 95 /min Dr. Romain Roach DO Work Phone: [facility] 06-14-2024 13:58-0400 Respiratory rate 18 /min Dr. Romain Roach DO Work Phone: [facility] 06-14-2024 13:58-0400 SaO2% (BldA) [Mass fraction] 98 % Dr. Romain Roach DO Work Phone: [facility] 06-14-2024 13:58-0400 Systolic blood pressure 140 mm[Hg] Dr. Romain Raoch DO Work Phone: [facility] 06-09-2024 16:00-0400 Heart rate 78 /min Dr. Romain Roach DO Work Phone: [facility] 06-09-2024 16:00-0400 Respiratory rate 18 /min Dr. Romain Roach DO Work Phone: [facility] 06-09-2024 16:00-0400 SaO2% (BldA) [Mass fraction] 98 % Dr. Romain Roach DO Work Phone: [facility] 06-09-2024 14:19-0400 Diastolic blood pressure 76 mm[Hg] Dr. Romain Roach DO Work Phone: [facility] 06-09-2024 14:19-0400 Systolic blood pressure 124 mm[Hg] Dr. Romain Roach DO Work Phone: [facility] 06-09-2024 14:09-0400 Body mass index (BMI) [Ratio] 29.9 kg/m2 Dr. Romain Roach DO Work Phone: [facility] 06-09-2024 14:09-0400 Body weight 92.[address] Romain Roach DO Work Phone: [facility] 06-09-2024 12:20-0400 Body height 175.[address] Romain Roach DO Work Phone: [facility] 06-09-2024 12:20-0400 Body temperature 97.7 [degF] Dr. Romain Roach DO Work Phone: [facility] 05-31-2024 13:45-0400 Body temperature 97.5 [degF] Dr. Romain Roach DO Work Phone: [facility] 05-31-2024 13:45-0400 Diastolic blood pressure 78 mm[Hg] Dr. Romain Roach DO Work Phone: [facility] 05-31-2024 13:45-0400 Heart rate 98 /min Dr. Romain Roach DO Work Phone: [facility] 05-31-2024 13:45-0400 Respiratory rate 18 /min Dr. Romain Roach DO Work Phone: [facility] 05-31-2024 13:45-0400 SaO2% (BldA) [Mass fraction] 94 % Dr. Romain Roach DO Work Phone: [facility] 05-31-2024 13:45-0400 Systolic blood pressure 125 mm[Hg] Dr. Romain Roach DO Work Phone: [facility] 05-31-2024 12:56-0400 Inhaled oxygen flow rate 6 L/min Dr. Romain Roach DO Work Phone: [facility] 05-31-2024 11:23-0400 Body height 175.[address] Romain Roach DO Work Phone: [facility] 05-31-2024 11:23-0400 Body mass index (BMI) [Ratio] 30.6 kg/m2 Dr. Romain Roach DO Work Phone: [facility] 05-31-2024 11:23-0400 Body weight [address] Romain Roach DO Work Phone: [facility] 05-18-2024 15:09-0500 Body temperature 98.2 [degF] Dr. Romain Roach DO Work Phone: [facility] 05-18-2024 15:09-0500 Body weight 95.[address] Romain Roach DO Work Phone: [facility] 05-18-2024 15:09-0500 Diastolic blood pressure 80 mm[Hg] Dr. Romain Roach DO Work Phone: [facility] 05-18-2024 15:09-0500 Heart rate 92 /min Dr. Romain Roach DO Work Phone: [facility] 05-18-2024 15:09-0500 Respiratory rate 16 /min Dr. Romain Roach DO Work Phone: [facility] 05-18-2024 15:09-0500 SaO2% (BldA) [Mass fraction] 98 % Dr. Romain Roach DO Work Phone: [facility] 05-18-2024 15:09-0500 Systolic blood pressure 137 mm[Hg] Dr. Romain Roach DO Work Phone: [facility] 05-10-2024 07:50-0500 Body height 175.[address] Romain Roach DO Work Phone: [facility] 05-10-2024 07:50-0500 Body mass index (BMI) [Ratio] 32.1 kg/m2 Dr. Romain Roach DO Work Phone: [facility] 05-10-2024 07:50-0500 Body weight 98.[address] Romain Roach DO Work Phone: [facility] 05-10-2024 07:50-0500 Diastolic blood pressure 76 mm[Hg] Dr. Romain Roach DO Work Phone: [facility] 05-10-2024 07:50-0500 Heart rate 86 /min Dr. Romain Roach DO Work Phone: [facility] 05-10-2024 07:50-0500 Respiratory rate 20 /min Dr. Romain Roach DO Work Phone: [facility] 05-10-2024 07:50-0500 SaO2% (BldA) [Mass fraction] 95 % Dr. Romain Roach DO Work Phone: [facility] 05-10-2024 07:50-0500 Systolic blood pressure 130 mm[Hg] Dr. Romain Roach DO Work Phone: [facility] 05-09-2024 09:51-0500 Body temperature 98.7 [degF] Dr. Romain Roach DO Work Phone: [facility] 05-09-2024 09:51-0500 Diastolic blood pressure 78 mm[Hg] Dr. Romain Roach DO Work Phone: [facility] 05-09-2024 09:51-0500 Heart rate 64 /min Dr. Romain Roach DO Work Phone: [facility] 05-09-2024 09:51-0500 Respiratory rate 18 /min Dr. Romain Roach DO Work Phone: [facility] 05-09-2024 09:51-0500 SaO2% (BldA) [Mass fraction] 99 % Dr. Romain Roach DO Work Phone: [facility] 05-09-2024 09:51-0500 Systolic blood pressure 132 mm[Hg] Dr. Romain Roach DO Work Phone: [facility] 05-09-2024 07:18-0500 Body mass index (BMI) [Ratio] 31.8 kg/m2 Dr. Romain Roach DO Work Phone: [facility] 05-09-2024 07:18-0500 Body weight 97.[address] Romain Roach DO Work Phone: [facility] 04-27-2024 08:15-0500 Body temperature 97.11 [degF] George Perez INDUSTRIAL ENGINEERING ANALYST.[employer] SERVICE TECHNICIAN Work Phone: [facility] 04-27-2024 08:15-0500 Diastolic blood pressure 80 mm[Hg] George Perez INDUSTRIAL ENGINEERING ANALYST.[employer] SERVICE TECHNICIAN Work Phone: [facility] 04-27-2024 08:15-0500 Heart rate 94 /min George Chris INDUSTRIAL ENGINEERING ANALYST.[employer] SERVICE TECHNICIAN Work Phone: [facility] 04-27-2024 08:15-0500 Respiratory rate 22 /min George Perez INDUSTRIAL ENGINEERING ANALYST.[employer] SERVICE TECHNICIAN Work Phone: [facility] 04-27-2024 08:15-0500 SaO2% (BldA) [Mass fraction] 97 % George Perez INDUSTRIAL ENGINEERING ANALYST.[employer] SERVICE TECHNICIAN Work Phone: [facility] 04-27-2024 08:15-0500 Systolic blood pressure 129 mm[Hg] George Perez INDUSTRIAL ENGINEERING ANALYST.[employer] SERVICE TECHNICIAN Work Phone: [facility] 03-22-2024 08:45-0500 Body mass index (BMI) [Ratio] 30.1 kg/m2 Dr. Romain Roach DO Work Phone: [facility] 03-22-2024 08:45-0500 Body weight 97.[address] Romain Roach DO Work Phone: [facility] 03-22-2024 08:45-0500 Diastolic blood pressure 73 mm[Hg] Dr. Romain Roach DO Work Phone: [facility] 03-22-2024 08:45-0500 Heart rate 82 /min Dr. Romain Roach DO Work Phone: [facility] 03-22-2024 08:45-0500 Respiratory rate 16 /min Dr. Romain Roach DO Work Phone: [facility] 03-22-2024 08:45-0500 Systolic blood pressure 133 mm[Hg] Dr. Romain Roach DO Work Phone: [facility] 03-07-2024 08:20-0500 Body mass index (BMI) [Ratio] 31.35 kg/m2 Valdemar Duncan MD Work Phone: [facility] 03-07-2024 08:20-0500 Body temperature 98.1 [degF] Valdemar Duncan MD Work Phone: [facility] 03-07-2024 08:20-0500 Body weight 98.2 kg Valdemar Duncan MD Work Phone: [facility] 03-07-2024 08:20-0500 Diastolic blood pressure 71 mm[Hg] Valdemar Duncan MD Work Phone: [facility] 03-07-2024 08:20-0500 Heart rate 80 /min Valdemar Duncan MD Work Phone: [facility] 03-07-2024 08:20-0500 SaO2% (BldA) [Mass fraction] 97 % Valdemar Duncan MD Work Phone: [facility] 03-07-2024 08:20-0500 Systolic blood pressure 120 mm[Hg] Valdemar Duncan MD Work Phone: [facility] 12-01-2023 09:46-0400 Body mass index (BMI) [Ratio] 31.35 kg/m2 Valdemar Duncan MD Work Phone: [facility] 12-01-2023 09:46-0400 Body temperature 97.59 [degF] Valdemar Duncan MD Work Phone: [facility] 12-01-2023 09:46-0400 Body weight 98.2 kg Valdemar Duncan MD Work Phone: [facility] 12-01-2023 09:46-0400 Diastolic blood pressure 71 mm[Hg] Valdemar Duncan MD Work Phone: [facility] 12-01-2023 09:46-0400 Heart rate 64 /min Valdemar Duncan MD Work Phone: [facility] 12-01-2023 09:46-0400 SaO2% (BldA) [Mass fraction] 99 % Valdemar Duncan MD Work Phone: [facility] 12-01-2023 09:46-0400 Systolic blood pressure 124 mm[Hg] Valdemar Duncan MD Work Phone: [facility] 07-16-2023 09:26-0400 Body mass index (BMI) [Ratio] 31.49 kg/m2 Valdemar Duncan MD Work Phone: [facility] 07-16-2023 09:26-0400 Body temperature 97.81 [degF] Valdemar Duncan MD Work Phone: [facility] 07-16-2023 09:26-0400 Body weight 98.66 kg Valdemar Duncan MD Work Phone: [facility] 07-16-2023 09:26-0400 Diastolic blood pressure 71 mm[Hg] Valdemar Duncan MD Work Phone: [facility] 07-16-2023 09:26-0400 Heart rate 55 /min Valdemar Duncan MD Work Phone: [facility] 07-16-2023 09:26-0400 SaO2% (BldA) [Mass fraction] 97 % Valdemar Duncan MD Work Phone: [facility] 07-16-2023 09:26-0400 Systolic blood pressure 113 mm[Hg] Valdemar Duncan MD Work Phone: [facility] 05-19-2023 10:24-0500 Body temperature 97.39 [degF] Va Dunaway MD Work Phone: [facility] 05-19-2023 10:24-0500 Diastolic blood pressure 68 mm[Hg] Va Dunaway MD Work Phone: [facility] 05-19-2023 10:24-0500 Heart rate 84 /min Va Dunaway MD Work Phone: [facility] 05-19-2023 10:24-0500 SaO2% (BldA) [Mass fraction] 84 % Va Dunaway MD Work Phone: [facility] 05-19-2023 10:24-0500 Systolic blood pressure 109 mm[Hg] Va Dunaway MD Work Phone: [facility] 04-21-2023 09:17-0500 Body temperature 98.01 [degF] Va Dunaway MD Work Phone: [facility] 04-21-2023 09:17-0500 Body weight 99.79 kg Va Dunaway MD Work Phone: [facility] 04-21-2023 09:17-0500 Diastolic blood pressure 73 mm[Hg] Va Dunaway MD Work Phone: [facility] 04-21-2023 09:17-0500 Heart rate 80 /min Va Dunaway MD Work Phone: [facility] 04-21-2023 09:17-0500 Respiratory rate 17 /min Va Dunaway MD Work Phone: [facility] 04-21-2023 09:17-0500 SaO2% (BldA) [Mass fraction] 97 % Va Dunaway MD Work Phone: [facility] 04-21-2023 09:17-0500 Systolic blood pressure 112 mm[Hg] Va Dunaway MD Work Phone: [facility] 04-21-2023 08:48-0500 Body height 177 cm Valdemar Duncan MD Work Phone: [facility] 04-21-2023 08:48-0500 Body temperature 98.01 [degF] Valdemar Duncan MD Work Phone: [facility] 04-21-2023 08:48-0500 Body weight 99.79 kg Valdemar Duncan MD Work Phone: [facility] 04-21-2023 08:48-0500 Diastolic blood pressure 73 mm[Hg] Valdemar Duncan MD Work Phone: [facility] 04-21-2023 08:48-0500 Heart rate 80 /min Valdemar Duncan MD Work Phone: [facility] 04-21-2023 08:48-0500 SaO2% (BldA) [Mass fraction] 97 % Valdemar Duncan MD Work Phone: [facility] 04-21-2023 08:48-0500 Systolic blood pressure 112 mm[Hg] Valdemar Duncan MD Work Phone: [facility] 01-13-2023 16:58-0400 Body temperature 97 [degF] [facility] 01-13-2023 16:58-0400 Diastolic blood pressure 76 mm[Hg] [facility] 01-13-2023 16:58-0400 Heart rate 70 /min [facility] 01-13-2023 16:58-0400 Respiratory rate 20 /min [facility] 01-13-2023 16:58-0400 SaO2% (BldA) [Mass fraction] 88 % [facility] 01-13-2023 16:58-0400 Systolic blood pressure 133 mm[Hg] [facility] 01-13-2023 15:49-0400 Inhaled oxygen flow rate 3 L/min [facility] 01-13-2023 12:51-0400 Body height 180.34 cm [facility] 01-13-2023 12:51-0400 Body mass index (BMI) [Ratio] 30.4 kg/m2 [facility] 01-13-2023 12:51-0400 Body weight 99 kg [facility] Encounters Encounter Date Encounter Type Care Provider Facility Start: 10-23-2024 End: 10-23-2024 ambulatory VALDEMAR DUNCAN Facility:[facility] Start: 10-19-2024 End: 10-19-2024 Dr. Angelica Saleh MD Work Phone: -Emergency Department Work Phone: Start: 10-19-2024 End: 10-19-2024 Emergency department patient visit Dr. Angelica Saleh MD Work Phone: -Emergency Department Start: 10-19-2024 Dr. Angelica laguerre MD -Home Health Lab Start: 10-19-2024 ambulatory Angelica Saleh Facility :[facility] Start: 10-16-2024 ambulatory Jaleesa Pierce ty:[facility] Start: 10-11-2024 End: 10-11-2024 Refill Valdemar Duncan MD Work Phone: Hematology/Oncology Comment on above: Refill Request Start: 10-09-2024 End: 10-09-2024 Telephone encounter Valdemar Duncan MD Work Phone: Hematology/Oncology Comment on above: Electronic Communica tion Start: 10-09-2024 End: 10-09-2024 Patient encounter procedure Va Dunaway MD Work Phone: Radiation Oncology Comment on above: 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) Start: 10-09-2024 End: 10-09-2024 ambulatory Va Dunaway MD Work Phone: Hematology/Oncology Comment on above: Patient Education Start: 10-06-2024 End: 10-06-2024 ambulatory JONH HOBSON Facility:[facility] Start: 10-05-2024 End: 10-05-2024 Dr. Aden Stahl MD -Emergency Departmen t Work Phone: Start: 10-05-2024 End: 10-05-2024 Emergency department patient visit Angelica Therese Facility:[facility] Start: 10-05-2024 End: 10-05-2024 Nishi Garnett PROFESSOR OF GERMAN-C -[facility] Start: 10-05-2024 End: 10-05-2024 Nishi Garnett PROFESSOR OF GERMAN-C -[facility] Work Phone: Start: 10-05-2024 End: 10-05-2024 ambulatory Angelica Therese Facility:[facility] [place] [facility] Start: 10-05-2024 End: 10-05-2024 ambulatory Angelica Broomfield Facility:[facility] Start: 10-03-2024 End: 10-03-2024 Refill Valdemar Duncan MD Work Phone: Hematology/Oncology Comment on above: Refill Request Start: 10-02-2024 End: 10-05-2024 Telephone encounter Va Dunaway MD Work Phone: Radiation Oncology Start: 09-25-2024 Dr. Naresh Gandhi alex Inpatient Physicians Work Phone: Start: 09-24-2024 Dr. Naresh Gandhi alex Inpatient Physicians Work Phone: Start: 09-23-2024 Dr. Naresh Gandhi alex Inpatient Physicians Work Phone: Start: 09-22-2024 Dr. Narseh Gandhi alex Inpatient Physicians Work Phone: Start: 09-21-2024 Ketty SALAZAR [facility] Start: 09-20-2024 ambulatory Angelica Therese Facility :[facility] Start: 09-20-2024 Dr. Naresh Cuellar MD [facility] Start: 09-20-2024 Dr. Naresh Florez DO [facility] Inpatient Physicians Work Phone: Start: 09-19-2024 ambulatory Angelica Broomfield Facility :[facility] Start: 09-19-2024 End: 09-25-2024 Evaluation and management of inpatient Angelica Therese Facility:[facility] Start: 09-19-2024 End: 09-25-2024 [facility] Start: 09-11-2024 Wild Gallagher [facility] Start: 09-11-2024 Dr. Jose Zhang MD [facility] Inpatient Physicians Work Phone: Start: 09-10-2024 Dr. Jose Zhang MD [facility] Inpatient Physicians Work Phone: Start: 09-09-2024 Dr. Jose Zhang MD [facility] Inpatient Physicians Work Phone: Start: 09-08-2024 Dr. Jose Zhang MD [facility] Inpatient Physicians Work Phone: Start: 09-07-2024 Wildrefugio Gallagher DO [facility] Start: 09-07-2024 Dr. Jose Zhang MD [facility] Inpatient Physicians Work Phone: Start: 09-07-2024 ambulatory Angelica Therese Facility :[facility] Start: 09-07-2024 Dr. Brittany Izquierdo MD [facility] Start: 09-06-2024 Dr. Stanton Or[facility] Inpatient Physicians Work Phone: Start: 09-06-2024 Dr. Addy Nelson DO [facility] -[facility] Start: 09-06-2024 End: 09-06-2024 ambulatory Angelica Broomfield Facility:[facility] Start: 09-06-2024 End: 09-06-2024 Dr. Peter Mohan MD -[facility] Work Phone: Start: 09-05-2024 Wild Gallagher DO [facility] Start: 09-05-2024 Dr. Stanton Ortega DO [facility] Inpatient Physicians Work Phone: Start: 09-05-2024 Dr. Addy Nelson [facility] -[facility] Start: 09-04-2024 ambulatory Angelica Broomfield Facility :[facility] Start: 09-04-2024 End: 09-11-2024 Evaluation and management of inpatient Dr. Serina Juan MD -Intensive Care Unit Work Phone: Start: 09-04-2024 End: 09-11-2024 Dr. Jose Zhang MD -Progressive Care U nit Work Phone: Start: 09-04-2024 End: 09-07-2024 Telephone encounter Shilpi Ware RN Work Phone: Hematology/Oncology Comment on above: Patient Update Start: 09-01-2024 End: 09-01-2024 ambulatory JONH JAZLYN Facility:[facility] Start: 08-31-2024 End: 08-31-2024 Telephone encounter Va Dunaway MD Work Phone: Radiation Oncology Comment on above: Future Appointment Start: 08-31-2024 End: 08-31-2024 ambulatory JONH JAZLYN Facility:[facility] Start: 08-30-2024 End: 10-05-2024 Nursing evaluation of patient and report Nurse Kirsten [facility] Work Phone: Radiation Oncology Comment on above: 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) Start: 08-30-2024 End: 08-30-2024 ambulatory VA DUNAWAY Facility:[facility] Start: 08-28-2024 End: 08-28-2024 ambulatory JONH JAZLYN Facility:[facility] Start: 08-28-2024 End: 08-30-2024 Patient encounter procedure Va Dunaway MD Work Phone: Radiation Oncology Start: 08-28-2024 End: 08-30-2024 Radiation Oncology Note Va Dunaway MD Work Phone: Radiation Oncology Comment on above: Treatment Planning Simulation Note Start: 08-28-2024 End: 08-28-2024 Office outpatient visit 40 minutes Jonh Hobson MD Work Phone: Radiation Oncology Comment on above: 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) Start: 08-28-2024 End: 08-28-2024 ambulatory JONH HOBSON Facility:[facility] Start: 08-25-2024 End: 08-28-2024 Refill Valdemar Duncan MD Work Phone: Hematology/Oncology Comment on above: Refill Request Start: 08-24-2024 End: 08-25-2024 Telephone encounter Jonh Hobson MD Work Phone: Radiation Oncology Comment on above: Appointment Start: 08-22-2024 End: 08-25-2024 Refill Valdemar Duncan MD Work Phone: Hematology/Oncology Comment on above: Patient Update (Pain ) Start: 08-21-2024 End: 08-21-2024 Orders Only Alma [facility] Comment on above: 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); Paraspinal mass Start: 08-17-2024 End: 08-18-2024 Telephone encounter Valdemar Duncan MD Work Phone: Hematology/Oncology Comment on above: AVS 6/ Start: 08-17-2024 End: 08-17-2024 Patient encounter procedure Valdemar Duncan MD Work Phone: Hematology/Oncology Start: 08-17-2024 End: 08-17-2024 ambulatory Valdemar Duncan MD Work Phone: Hematology/Oncology Comment on above: 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 Angelica Saleh MD Work Phone: [facility] Work Phone: Start: 08-08-2024 End: 08-08-2024 Patient encounter procedure Jaleesa Galindo NP-C -Nuclear Medicine [facility] Work Phone: Start: 08-08-2024 End: 08-08-2024 Jaleesa Galindo NP-C -Nuclear Medicine [facility] Work Phone: Start: 08-08-2024 End: 08-08-2024 ambulatory Jaleesa Galindo Facility:[facility] Start: 08-04-[address] Terry Hou MD -Physical Therapy Work Phone: Start: 08-04-2024 Dr. Brad kraft MD -Physical Therapy Work Phone: Start: 08-04-2024 ambulatory Brad Hou Facili ty:[facility] Start: 08-01-2024 ambulatory VALDEMAR DUNCAN Facilit y:[facility] Start: 07-24-2024 End: 07-24-2024 Patient encounter procedure Jaleesa Galindo NP-C -[facility] Work Phone: Start: 07-24-2024 End: 07-24-2024 Jaleesa Galindo NP-C -[facility] Work Phone: Start: 07-24-2024 End: 07-24-2024 ambulatory Jaleesa Galindo Facility:[facility] Start: 07-20-2024 End: 07-20-[address] Angelica Saleh MD Work Phone: [facility] Work Phone: Start: 07-20-2024 End: 07-20-[address] Latosha Renee MD -Laboratory Work Phone: Start: 07-20-2024 End: 07-20-2024 Dr. Latosha Renee MD -Laboratory Work Phone: Start: 07-20-2024 End: 07-20-2024 ambulatory Angelica Hortay Facility:[facility] Start: 07-13-2024 End: 07-13-2024 Patient encounter procedure Valdemar Duncan MD Work Phone: Hematology/Oncology Start: 07-13-2024 End: 07-13-2024 ambulatory Valdemar Duncan MD Work Phone: Hematology/Oncology Comment on above: Malignant neoplasm o f unspecified part of unspecified bronchus or lung (HCC) (Primary Dx) Start: 07-07-2024 End: 07-07-2024 Patient encounter procedure Jaleesa MARI -Ultrasound, [facility] Work Phone: Start: 07-07-2024 End: 07-07-2024 Jaleesa SerranoUltrasound [facility] Work Phone: Start: 07-06-2024 End: 07-07-2024 ambulatory VALDEMAR DUNCAN Facility:[facility] Start: 07-04-2024 End: 07-04-2024 Telephone encounter Valdemar Duncan MD Work Phone: Hematology/Oncology Comment on above: Orders Start: 06-27-2024 End: 06-27-2024 [facility] Start: 06-27-2024 End: 06-27-2024 Subsequent hospital visit by physician Xr [facility] Work Phone: Radiology Start: 06-26-2024 End: 06-26-2024 Patient encounter procedure Jaleesa MARI -[facility] Work Phone: Start: 06-26-2024 End: 06-26-2024 Jaleesa MARI -[facility] Work Phone: Start: 06-26-2024 End: 06-26-2024 ambulatory Jaleesa Galindo Facility:[facility] Start: 06-26-2024 ambulatory Angelica Saleh Facility :[facility] Start: 06-23-2024 End: 06-23-[address] Romain Roach DO Work Phone: [facility] Work Phone: Start: 06-23-2024 End: 06-23-[address] Latosha Renee MD -Laboratory Work Phone: Start: 06-23-2024 End: 06-23-2024 Dr. Latosha Renee MD -Laboratory Work Phone: Start: 06-23-2024 End: 06-23-2024 ambulatory Latosha Renee Facility:[facility] Start: 06-15-2024 End: 06-15-[address] Romain Roach DO Work Phone: [facility] Work Phone: Start: 06-15-2024 End: 06-15-[address] Angelica Saleh MD -Laboratory, Specimen Work Phone: Start: 06-15-2024 End: 06-15-2024 Dr. Angelica Saleh MD -Laboratory Specimen Work Phone: Start: 06-14-2024 End: 06-15-[address] Romain Roach DO Work Phone: [facility] Work Phone: Start: 06-14-2024 End: 06-14-[address] Angelica Saleh MD -Laboratory, [facility] Start: 06-14-2024 End: 06-14-2024 Dr. Angelica Saleh MD -Laboratory [facility] Start: 06-14-2024 End: 06-14-[address] Angelica Saleh MD -[facility] Work Phone: Start: 06-14-2024 End: 06-14-2024 Dr. Angelica Saleh MD -[facility] Work Phone: Start: 06-14-2024 End: 06-14-2024 [facility] Start: 06-14-2024 End: 06-14-2024 ambulatory Angelica Therese Facility:[facility] Start: 06-10-2024 End: 06-12-2024 Refill Valdemar Duncan MD Work Phone: Hematology/Oncology Comment on above: Refill Request Start: 06-09-2024 End: 06-09-2024 Dr. [facility] Start: 06-09-2024 End: 06-09-2024 Emergency department patient visit Dr. Romain Roach DO Work Phone: -Emergency Department Work Phone: Start: 06-06-2024 End: 06-06-[address] Romain Roach DO Work Phone: [facility] Work Phone: Start: 06-06-2024 End: 06-06-[address] Latosha Renee MD -Laboratory Work Phone: Start: 06-06-2024 End: 06-06-2024 Dr. Latosha Reene MD -Laboratory Work Phone: Start: 06-06-2024 End: 06-06-2024 ambulatory [facility] Facility:[facility] Start: 06-02-2024 End: 06-05-2024 Telephone encounter Shilpi Ware RN Work Phone: Hematology/Oncology Comment on above: Care Coordination (P ain/Questions) Start: 05-31-2024 End: 06-05-2024 Telephone encounter Valdemar Duncan MD Work Phone: Hematology/Oncology Comment on above: Patient Question Start: 05-31-2024 End: 05-31-2024 Admission to same day surgery center Wild Gallagher DO -Endoscopy Work Phone: Start: 05-31-2024 End: 05-31-[address] Romain Roach DO Work Phone: [facility] Work Phone: Start: 05-31-2024 Non-patient / Non-visit Wild Gallagher DO -[facility] Start: 05-31-2024 End: 05-31-2024 Wild Friend DO -Endoscopy Work Phone: Start: 05-22-2024 End: 05-22-2024 Subsequent hospital visit by physician Xr [facility] Work Phone: Radiology Start: 05-22-2024 End: 05-22-2024 ambulatory ROMAIN HURD Facility:[facility] Start: 05-18-2024 End: 05-18-[address] Naresh Cuellar MD -[facility] Work Phone: Start: 05-18-2024 End: 05-18-2024 Dr. Naresh Cuellar MD -[facility] Work Phone: Start: 05-18-2024 End: 05-18-2024 ambulatory Angelica Saleh Facility:[facility] Start: 05-12-2024 End: 05-12-[address] Romain Roach DO Work Phone: [facility] Work Phone: Start: 05-12-2024 End: 05-12-2024 Patient encounter procedure Jaleesa RIVASC -Radiology, [facility] Work Phone: Start: 05-12-2024 End: 05-12-2024 ambulatory Jaleesa Galindo Facility:[facility] Start: 05-10-2024 End: 05-11-2024 Telephone encounter Valdemar Duncan MD Work Phone: Hematology/Oncology Comment on above: Patient Update Start: 05-10-2024 End: 05-10-2024 ambulatory Jaleesa Galindo Facility:[facility] Start: 05-10-2024 End: 05-10-2024 Patient encounter procedure Jaleesa MARI -[facility] Work Phone: Start: 05-09-2024 End: 05-09-2024 Emergency department patient visit Dr. Aden Stahl MD -Emergency Department Work Phone: Start: 04-27-2024 End: 04-27-2024 Telephone encounter Valdemar Duncan MD Work Phone: Hematology/Oncology Comment on above: Pain Start: 04-27-2024 End: 04-27-2024 Subsequent hospital visit by physician Xr [facility] Work Phone: Radiology Comment on above: Chest pain, unspecif ied type [R07.9] Start: 04-27-2024 End: 04-27-2024 ambulatory [facility] Facility:[facility] Start: 04-27-2024 End: 04-27-2024 Office outpatient visit 15 minutes [facility] INDUSTRIAL ENGINEERING ANALYST.X RAY SERVICE TECHNICIAN Work Phone: [facility] Comment on above: Chest pain, unspecif ied type (Primary Dx) Start: 04-12-2024 End: 2024 Refill Valdemar Duncan MD Work Phone: Hematology/Oncology Comment on above: Refill Request Start: 04-06-2024 ambulatory [facility] Facility :[facility] Start: 04-06-2024 Non-patient / Non-visit Dr. Peter Mohan MD -[facility] Start: 04-06-2024 End: 04-06-[address] Peter Mohan MD -Cardiovascular Services Work Phone: Start: 04-06-2024 End: 04-06-2024 ambulatory [facility] Facility:[facility] Start: 03-31-2024 End: 03-31-2024 Refill Valdemar Duncan MD Work Phone: Hematology/Oncology Comment on above: Refill Request Start: 03-22-2024 End: 03-22-[address] Peter Mohan MD -[facility] Work Phone: Start: 03-22-2024 End: 03-22-2024 ambulatory Angelica Saleh Facility:[facility] Start: 03-07-2024 End: 03-07-2024 ambulatory Valdemar Duncan MD Work Phone: Hematology/Oncology Comment on above: Malignant neoplasm o f unspecified part of unspecified bronchus or lung (HCC) (Primary Dx) Start: 03-07-2024 End: 03-07-2024 Patient encounter procedure Valdemar Duncan MD Work Phone: Hematology/Oncology Start: 02-18-2024 End: 02-18-2024 Subsequent hospital visit by physician [facility] (I-Stat) Work Phone: Cat Scan Comment on above: Malignant neoplasm o f unspecified part of unspecified bronchus or lung (HCC) [C34.90] Start: 02-18-2024 End: 02-18-2024 ambulatory VALDEMAR DUNCAN Facility:[facility] Start: 12-08-2023 End: 12-08-2023 ambulatory VA DUNAWAY Facility:[facility] Start: 12-08-2023 End: 12-08-2023 Follow-up encounter Va Dunaway MD Work Phone: Radiation Oncology Comment on above: Radiotherapy follow- up (Primary Dx); Squamous cell carcinoma of left lung (HCC) Start: 12-08-2023 End: 12-08-2023 Telemedicine consultation with patient Va Dunaway MD Work Phone: Radiation Oncology Start: 12-03-2023 End: 12-07-2023 Telephone encounter Va Dunaway MD Work Phone: Radiation Oncology Comment on above: Appointment (missed) Start: 12-01-2023 End: 12-01-2023 ambulatory Valdemar Duncan MD Work Phone: Hematology/Oncology Comment on above: Malignant neoplasm o f unspecified part of unspecified bronchus or lung (HCC) (Primary Dx) Start: 12-01-2023 End: 12-01-2023 Patient encounter procedure Valdemar Duncan MD Work Phone: Hematology/Oncology Start: 11-24-2023 End: 11-24-2023 ambulatory VALDEMAR DUNCAN Facility:[facility] Start: 11-24-2023 End: 11-24-2023 Subsequent hospital visit by physician [facility] (I-Stat) Work Phone: Cat Scan Comment on above: Malignant neoplasm o f unspecified part of unspecified bronchus or lung (HCC) [C34.90] Start: 11-24-2023 End: 11-24-2023 ambulatory VALDEMAR MCDONNELL Facility:[facility] Start: 09-01-2023 End: 09-01-2023 Follow-up encounter Va Dunaway MD Work Phone: Radiation Oncology Comment on above: Radiotherapy follow- up (Primary Dx); Squamous cell carcinoma of left lung (HCC) Start: 09-01-2023 End: 09-01-2023 Telemedicine consultation with patient Va Dunaway MD Work Phone: Radiation Oncology Start: 08-27-2023 Telephone encounter Va Arvizu MD Work Phone: Radiation Oncology Comment on above: Appointment Start: 08-24-2023 End: 08-24-2023 [facility] Work Phone: Cat Scan Comment on above: Malignant neoplasm o f unspecified part of unspecified bronchus or lung (HCC) [C34.90] Start: 07-16-2023 End: 07-16-2023 ambulatory Valdemar Duncan MD Work Phone: Hematology/Oncology Comment on above: Malignant neoplasm o f unspecified part of unspecified bronchus or lung (HCC) (Primary Dx) Start: 07-16-2023 End: 07-16-2023 Patient encounter procedure Valdemar Duncan MD Work Phone: Hematology/Oncology Start: 06-23-2023 End: 06-23-2023 Follow-up encounter Va Dunaway MD Work Phone: Radiation Oncology Comment on above: Radiotherapy follow- up (Primary Dx); Malignant neoplasm of unspecified part of unspecified bronchus or lung (HCC) Start: 06-23-2023 End: 06-23-2023 Telemedicine consultation with patient Va Dunaway MD Work Phone: [facility] Start: 06-02-2023 End: 06-02-2023 Subsequent hospital visit by physician Xr [facility] [place] [facility] Work Phone: Radiology Start: 05-31-2023 End: 06-01-2023 ambulatory LATOSHA RENEE MD Facility:[facility] Start: 05-31-2023 End: 05-31-2023 Patient encounter procedure LATOSHA RENEE MD [facility] Start: 05-21-2023 ambulatory Va Dunaway MD Work Phone: Radiation Oncology Comment on above: Patient Education Start: 05-21-2023 Patient encounter procedure Va Dunaway MD Work Phone: [facility] Start: 05-21-2023 Radiation Oncology Note Va Dunaway MD Work Phone: Radiation Oncology Comment on above: Completion Note Start: 05-19-2023 End: 05-19-2023 Patient encounter procedure Va Dunaway MD Work Phone: Radiation Oncology Comment on above: 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) Start: 05-07-2023 End: 05-07-2023 Subsequent hospital visit by physician [employer] [facility] (I-Stat/1.5t) Work Phone: Radiology Comment on above: 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) [C34.92] Start: 04-30-2023 Patient encounter procedure Va Dunaway MD Work Phone: [facility] Start: 04-30-2023 Radiation Oncology Note Va Dunaway MD Work Phone: Radiation Oncology Comment on above: Simulation Note Treatment Planning Start: 04-30-2023 End: 04-30-2023 Nursing evaluation of patient and report Nurse [facility] Work Phone: Radiation Oncology Comment on above: 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) Start: 04-28-2023 Orders Only Va Dunaway MD Work Phone: Radiation Oncology Comment on above: 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) Start: 04-21-2023 End: 04-21-2023 ambulatory Valdemar Duncan MD Work Phone: Hematology/Oncology Comment on above: 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) Start: 04-21-2023 End: 04-21-2023 Patient encounter procedure Valdemar Duncan MD Work Phone: [facility] Comment on above: 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) Start: 04-15-2023 End: 04-15-2023 ambulatory Fermín Chadwick MD, PhD Work Phone: [facility] Comment on above: Personal history of malignant neoplasm of bronchus and lung (Primary Dx) Start: 04-15-2023 End: 04-15-2023 Telemedicine consultation with patient Fermín Chadwick MD, PhD Work Phone: [facility] Start: 03-02-2023 Telephone encounter Fermín howell MD, PhD Work Phone: [facility] Comment on above: Appointment Start: 02-09-2023 End: 02-09-2023 ambulatory [facility] Work Phone: Start: 02-09-2023 End: 02-09-2023 Patient encounter procedure [facility] Start: 01-13-2023 End: 01-13-2023 Admission to same day surgery center [facility]-Endoscopy Work Phone: Start: 01-13-2023 End: 01-13-2023 ambulatory [facility] Work Phone: Start: 12-18-2022 End: 12-18-2022 Patient encounter procedure [facility]-Ondina Silva [facility] Work Phone: Start: 12-03-2022 End: 12-04-2022 ambulatory LYUBOV CASTANEDA INDUSTRIAL ENGINEERING ANALYST-X RAY SERVICE TECHNICIAN Facility:[facility] Start: 12-03-2022 End: 12-03-2022 Patient encounter procedure LYUBOV CASTANEDA INDUSTRIAL ENGINEERING ANALYST-X RAY SERVICE TECHNICIAN [facility] Start: 06-01-2022 End: 06-02-2022 ambulatory LATOSHA RENEE MD Facility:[facility] Start: 06-01-2022 End: 06-01-2022 Patient encounter procedure LATOSHA RENEE MD [facility] Start: 01-09-2022 End: 01-09-2022 Patient encounter procedure LATOSHA RENEE MD [facility] Start: 11-07-2021 End: 11-07-2021 Patient encounter procedure ROMAIN HURD MD [facility] Start: 11-04-2021 End: 11-04-2021 Patient encounter procedure ROMAIN HURD MD [facility] Start: 09-04-2021 End: 09-04-2021 Patient encounter procedure LATOSHA RENEE MD [facility] Start: 05-01-2021 End: 05-01-2021 Patient encounter procedure LATOSHA RENEE MD [facility] Start: 02-18-2021 End: 02-18-2021 Patient encounter procedure ROMAIN ROACH DO [facility] Start: 12-25-2020 End: 12-25-2020 Patient encounter procedure LATOSHA RENEE MD [facility] Start: 04-12-2019 End: 04-12-2019 Patient encounter procedure ELHAM Pickering JULIO [facility] Procedures Date Procedure Procedure Detail Performing Clinician Start: 10-19-2024 Urine microscopy: red cells Dr. Angelica casey MD Work Phone: Start: 10-19-2024 Urnls dip stick/tablet reagent auto microscopy Dr. Angelica Saleh MD Work Phone: Start: 10-19-2024 Blood count smear mcrscp w/mnl difrntl wbc count Dr. Angelica Saleh MD Work Phone: Start: 10-19-[address] Milton Saleh MD Work Phone: Start: 10-19-2024 Mean corpuscular hemoglobin concentration determination Dr. Angelica Saleh MD Work Phone: Start: 10-19-2024 Nucleated red blood cell count procedure Dr. Angelica Saleh MD Work Phone: Start: 10-19-2024 Platelet mean volume determination Dr. Gypsy Saleh MD Work Phone: Start: 10-19-2024 X-ray of chest, PA and lateral views Dr. Angelica Saleh MD Work Phone: Start: 10-19-2024 Mean corpuscular hemoglobin concentration determination Dr. Angelica Saleh MD Work Phone: Start: 10-19-2024 Platelet mean volume determination Dr. Gypsy Saleh MD Work Phone: Start: 10-05-2024 Mean corpuscular hemoglobin concentration determination Dr. Angelica Saleh MD Work Phone: Start: 10-05-2024 Platelet mean volume determination Dr. Gypsy Saleh MD Work Phone: Start: 10-05-2024 Blood count smear mcrscp w/mnl difrntl wbc count Dr. Angelica Saleh MD Work Phone: Start: 10-05-2024 Mean corpuscular hemoglobin concentration determination Dr. Angelica Saleh MD Work Phone: Start: 10-05-2024 Nucleated red blood cell count procedure Dr. Angelica Saleh MD Work Phone: Start: 10-05-2024 Platelet mean volume determination Dr. Gypsy Saleh MD Work Phone: Start: 09-22-2024 Blood count smear mcrscp w/mnl difrntl wbc count Dr. Angelica Saleh MD Work Phone: Start: 09-22-[address] Milton Saleh MD Work Phone: Start: 09-22-2024 Mean corpuscular hemoglobin concentration determination Dr. Angelica Saleh MD Work Phone: Start: 09-22-2024 Nucleated red blood cell count procedure Dr. Angelica Saleh MD Work Phone: Start: 09-22-2024 Platelet mean volume determination Dr. Gypsy Saleh MD Work Phone: Start: 09-21-2024 Calculation of international normalized ratio Dr. Angelica Saleh MD Work Phone: Start: 09-20-2024 Serum inorganic phosphate measurement Dr. Angelica Saleh MD Work Phone: Start: 09-19-[address] Angelica Saleh MD Work Phone: Start: 09-19-2024 X-ray of foot, three or more views Dr. Gypsy Saleh MD Work Phone: Start: 09-19-2024 Computed tomography of abdomen and pelvis with intravenous contrast Dr. Angelica Saleh MD Work Phone: Start: 09-19-2024 CT angiography of chest with contrast Dr. Angelica Saleh MD Work Phone: Start: 09-19-2024 Urine microscopy: red cells Dr. Angelica casey MD Work Phone: Start: 09-19-2024 Urnls dip stick/tablet reagent auto microscopy Dr. Angelica Saleh MD Work Phone: Start: 09-19-[address] Angelica Saleh MD Work Phone: Start: 09-19-[address] Gypsy Saleh MD Work Phone: Start: 09-11-[address] Milton Saleh MD Work Phone: Start: 09-10-2024 Blood count smear mcrscp w/mnl difrntl wbc count Dr. Angelica Saleh MD Work Phone: Start: 09-10-2024 Mean corpuscular hemoglobin concentration determination Dr. Angelica Saleh MD Work Phone: Start: 09-10-2024 Nucleated red blood cell count procedure Dr. Angelica Saleh MD Work Phone: Start: 09-10-2024 Platelet mean volume determination Dr. Gypsy Saleh MD Work Phone: Start: 09-09-2024 Serum inorganic phosphate measurement Dr. Angelica Saleh MD Work Phone: Start: 09-08-[address] Angelica Saleh MD Work Phone: Start: 09-07-[address] Angelica Saleh MD Work Phone: Start: 09-07-[address] Angelica Saleh MD Work Phone: Start: 09-07-2024 Calculation of international normalized ratio Dr. Angelica Saleh MD Work Phone: Start: 09-06-[address] Angelica murphy MD Work Phone: Start: 09-06-2024 Measurement of occult blood in stool specimen using immunoassay Dr. Angelica Saleh MD Work Phone: Start: 09-05-[address] Angelica Saleh MD Work Phone: Start: 09-05-[address] Angelica Saleh MD Work Phone: Start: 09-05-2024 Total iron binding capacity measurement Dr. Angelica Saleh MD Work Phone: Start: 09-04-2024 Iadna-dna/rna gi pthgn multiplex probe tq 6-11 Dr. Angelica Saleh MD Work Phone: Start: 09-04-[address] Angelica Saleh MD Work Phone: Start: 09-04-2024 Folic acid measurement, RBC Dr. Angelica casey MD Work Phone: Start: 09-04-2024 CT of thorax, abdomen and pelvis with contrast Dr. Angelica Saleh MD Work Phone: Start: 09-04-[address] Angelica Saleh MD Work Phone: Start: 09-04-[address] Beatriz Saleh MD Work Phone: Start: 09-04-[address] Angelica Saleh MD Work Phone: Start: 09-04-2024 SARS-CoV-2, Influenza & RSV (PCR) Dr. Kiel PENA Work Phone: Start: 09-04-[address] Angelica Saleh MD Work Phone: Start: 09-04-2024 Dr. Angelica Saleh MD Work Phone: Start: 09-04-2024 Urine microscopy: red cells Dr. Angelica casey MD Work Phone: Start: 09-04-2024 Urnls dip stick/tablet reagent auto microscopy Dr. Angelica Saleh MD Work Phone: Start: 09-04-2024 Plain radiography of pelvis Dr. Angelica casey MD Work Phone: Start: 09-04-2024 Plain X-ray of toe Dr. Angelica Saleh MD Work Phone: Start: 09-04-2024 Plain chest X-ray Dr. Angelica Saleh MD Work Phone: Start: 09-04-[address] Milton Saleh MD Work Phone: Start: 09-04-[address] Milton Saleh MD Work Phone: Start: 08-08-2024 Radionuclide study of abdomen Dr. Angelica Saleh MD Work Phone: Start: 07-20-[address] Gypsy Saleh MD Work Phone: Start: 07-07-[address] Angelica murphy MD Work Phone: Start: 06-27-2024 Radiologic exam chest 2 views [facility] Start: 06-23-2024 Insulin C-peptide measurement Dr. Angelica Saleh MD Work Phone: Comment on above: C-Peptide reference interval is for fast ing patients.Performed at: [facility] [id number] Director: Maico Ascencio PhD, Phone: [phone] Start: 06-14-[address] Angelica Saleh MD Work Phone: Comment on above: Performed at: [facility] [id number] [place], [place] [id number] Director: Maico Ascencio PhD, Phone: [phone] Start: 06-14-2024 Antibody to centromere measurement Dr. Gypsy Saleh MD Work Phone: Comment on above: Previous reported result: TNP AIEdited b y: INFCE on 06/16/24:1308 AMENDED REPORT 06/16/24 1308 ANTI-CENT B previously reported as: Test not performed Start: 06-14-2024 Antibody to extractable nuclear antigen measurement Dr. Angelica Saleh MD Work Phone: Comment on above: Previous reported result: TNP AIEdited b y: INFCE on 06/16/24:1308 AMENDED REPORT 06/16/24 1301 GRAY Ab previously reported as: Test not performed Start: 06-14-2024 Antibody to ALETHEA-[address] Angelica Saleh MD Work Phone: Comment on above: Previous reported result: TNP AIEdited b y: INFCE on 06/16/24:1308 AMENDED REPORT 06/16/24 1308 ANTI-ALETHEA previously reported as: Test not performed Start: 06-14-2024 Antibody to lupus La protein measurement Dr. Angelica Saleh MD Work Phone: Comment on above: Previous reported result: TNP AIEdited b y: INFCE on 06/16/24:1308 AMENDED REPORT 06/16/24 1308 Anti-SS-B previously reported as: Test not performed Start: 06-14-2024 Antibody to SS-A measurement Dr. Angelica Saleh MD Work Phone: Comment on above: Previous reported result: TNP AIEdited b y: INFCE on 06/16/24:1308 AMENDED REPORT 06/16/24 1308 Anti-SS-A previously reported as: Test not performed Start: 06-14-[address] Angelica bailey MD Work Phone: Comment on above: Previous reported result: TNP AIEdited b y: INFCE on 06/16/24:1308 AMENDED REPORT 06/16/24 1308 ANTICHROMATIN previously reported as: Test not performed Start: 06-14-2024 Blood count smear mcrscp w/mnl difrntl wbc count Dr. Angelica Saleh MD Work Phone: Start: 06-14-2024 Mean corpuscular hemoglobin concentration determination Dr. Angelica Saleh MD Work Phone: Start: 06-14-2024 Nucleated red blood cell count procedure Dr. Angelica Saleh MD Work Phone: Start: 06-14-2024 Platelet mean volume determination Dr. Gypsy Saleh MD Work Phone: Start: 06-14-2024 ENGINEERING AND DEVELOPMENT DIRECTOR antibody measurement Dr. Angelica bailey MD Work Phone: Comment on above: Previous reported result: TNP AIEdited b y: INFCE on 06/16/24:1308 AMENDED REPORT 06/16/24 1308 ENGINEERING AND DEVELOPMENT DIRECTOR Ab previously reported as: Test not performed Start: 06-09-2024 Computed tomography of abdomen and pelvis with intravenous contrast Dr. Romain Roach DO Work Phone: Start: 06-09-2024 Blood count smear mcrscp w/mnl difrntl wbc count Dr. Angelica Saleh MD Work Phone: Start: 06-09-2024 Mean corpuscular hemoglobin concentration determination Dr. Angelica Saleh MD Work Phone: Start: 06-09-2024 Nucleated red blood cell count procedure Dr. Angelica Saleh MD Work Phone: Start: 06-09-2024 Platelet mean volume determination Dr. Gypsy Saleh MD Work Phone: Start: 06-09-[address] Gypsy Saleh MD Work Phone: Start: 06-06-[address] Angelica metz MD Work Phone: Start: 06-06-2024 Total cholesterol:HDL ratio measurement Dr. Angelica Saleh MD Work Phone: Start: 06-06-2024 Vitamin D, 25-hydroxy measurement Dr. Kiel PENA Work Phone: Comment on above: Vitamin D StatusDeficiency: <20 ng/mL (5 0nmol/L)Insufficiency: 20-30 ng/mL (50-75 nmol/L)Sufficiency: 30-100 ng/mL (75-250 nmol/L)Toxicity: >100 ng/mL (>250 nmol/L) Start: 05-31-[address] Romain machado DO Work Phone: Start: 05-12-2024 Upper gastrointestinal tract contrast procedure Dr. Romain Roach DO Work Phone: Start: 05-09-[address] Milton Saleh MD Work Phone: Start: 05-09-2024 Measurement of renal function Dr. Angelica Saleh MD Work Phone: Comment on above: GFR Calc Start: 05-09-2024 CT of thorax, abdomen and pelvis with contrast Dr. Romain Roach DO Work Phone: Start: 04-27-2024 Radiologic exam chest 2 views George chatterjee APRN.CNP Work Phone: Start: 04-06-2024 Cardiovascular stress test using pharmacologic stress agent Dr. Romain Roach DO Work Phone: Start: 03-22-2024 Evaluation of diagnostic study results Dr. Romain Roach DO Work Phone: Start: 06-02-2023 Radiologic exam chest 2 views [facility] Start: 05-07-2023 Mri brain brain stem w/o w/contrast material Tay Montiel MD Work Phone: Start: 02-09-2023 Positron emission tomography with computed tomography Start: 01-13-2023 Plain chest X-ray Start: 01-13-2023 Bronchoscopy Start: 12-18-2022 CT of chest without contrast Start: 01-12-2020 Open reduction of fracture with internal fixation LATOSHA RENEE MD Comment on above: left ankle Start: 01-13-2018 Biopsy - action (qualifier value) DEMETRIS RENEE MD Comment on above: normal Start: 08-12-2016 Lobectomy of lung LATOSHA RENEE MD Start: 05-08-2015 Coronary artery bypass graft LATOSHA OLIVA MD Comment on above: Coronary artery bypass x3 with a left in ternal mammary artery to the LAD and saphenous vein grafts to the first diagonal and to the posterior descending artery. Start: 05-03-2015 Catheterization of left heart LATOSHA DURHAM MD Comment on above: Severe 2-vessel coronary artery disease. Peripheral vascular disease. Decreased left ventricular systolic function. Tortuosity of the aorta, with peripheral vascular disease. Collaterals to the right coronary artery. Left ventricular diastolic dysfunction. Left ventricular systolic dysfunction, EF 25% to 30% Start: 03-15-1993 Fracture of right lower limb (disorder) LATOSHA RENEE MD Start: 03-15-1982 Fracture (morphologic abnormality) MONO RENEE MD History of coronary artery bypass grafting S/P CABG (coronary artery bypass graft)( Confirmed ) LATOSHA RENEE MD N2c: Metastasis in b ilateral or contralateral lymph nodes, none > 6 cm in greatest dimension (finding) LATOSHA RENEE MD Plan of Treatment Date Care Activity Detail Author Start: 12-06-2033 Urine microalbumin profile DTa P,Tdap,Td Vaccine (3 - Td or Tdap) [facility] Start: 11-13-2024 Influenza vaccination Influenz a Vaccine (#1) [facility] Start: 11-06-2024 End: 11-06-2024 Follow-up encounter 11/06/2024 11:30 AM EDT [facility] Radiation Oncology [address] [place] [address] Va Dunaway MD [address] [place] [address] 4WK FOLLOW UP Radiation Oncology Comment on above: 4WK FOLLOW UP Start: 10-19-2024 End: 10-19-2024 [facility] Start: 10-09-2024 End: 10-09-2024 Patient encounter procedure Radiation Oncology Comment on above: Location: [facility] Location: [facility]REAT MENT VISIT Start: 10-06-2024 End: 10-06-2024 Patient encounter procedure 10/06/2024 11:30 AM EDT Appointment Radiation Oncology [address] [place] [address] Location: [facility] Radiation Oncology Comment on above: Location: [facility] Start: 10-05-2024 [facility] Start: 10-05-2024 Administration of bl ood product [facility] Start: 09-25-2024 Patient discharge [facility] Start: 09-25-[address] [facility] Start: 09-24-2024 Physiotherapy of chest [facility] Start: 09-22-2024 Wound care [facility] Start: 09-22-2024 [facility] Start: 09-21-2024 Following clinical p athway protocol [facility] Start: 09-21-2024 [facility] Start: 09-21-2024 End: 09-21-2024 [facility] Start: 09-21-2024 Care regimes management [facility] Start: 09-21-2024 Notification of physician [facility] Start: 09-20-2024 Following clinical p athway protocol [facility] Start: 09-20-2024 Referral to vascular surgeon [facility] Start: 09-20-2024 Oxygen therapy [facility] Start: 09-20-2024 Vital signs measurements [facility] Start: 09-20-2024 [facility] Start: 09-20-2024 Inhalation therapy procedure [facility] Start: 09-19-2024 [facility] Start: 09-19-2024 Ambulation without limitation [facility] Start: 09-19-2024 Assessment of risk o f venous thromboembolism [facility] Start: 09-19-2024 Insertion of cathete r into peripheral vein [facility] Start: 09-19-2024 Measuring intake and output [facility] Start: 09-19-2024 Providing care accor ding to standard [facility] Start: 09-19-2024 Referral to occupati onal therapist [facility] Start: 09-19-[address] [facility] Start: 09-19-2024 [facility] Start: 09-19-2024 Following clinical p athway protocol [facility] Start: 09-19-2024 Referral to gis specialist [facility] Start: 09-19-[address] [facility] Start: 09-19-2024 [facility] Start: 09-19-2024 Patient referral to dietitian [facility] Start: 09-19-2024 [facility] Start: 09-12-2024 End: 09-12-2024 ambulatory 09/12/2024 1:30 PM EDT Visit (SP) Office Hematology/Oncology [address] [place] [address] Angie Block [address] [place] [address] OV* PER TE 08/31* TO DISCUSS NEXT STEPS Hematology/Oncology Comment on above: OV* PER TE 08/31* TO DISCUSS NEXT STEPS Start: 09-11-[address] [facility] Start: 09-11-2024 End: 09-11-2024 Patient encounter procedure 09/11/2024 10:30 AM EDT Appointment Radiation Oncology [address] [place] [address] Location: [facility] Radiation Oncology Comment on above: Location: [facility] Start: 09-11-2024 Patient discharge [facility] Start: 09-10-2024 Care planning and pr oblem solving actions [facility] Start: 09-09-2024 [facility] Start: 09-08-2024 Blood culture [facility] Start: 09-08-2024 End: 09-09-2024 [facility] Start: 09-08-2024 End: 09-08-2024 Patient encounter procedure 09/08/2024 10:30 AM EDT Appointment Radiation Oncology [address] [place] [address] Location: [facility] Radiation Oncology Comment on above: Location: [facility] Start: 09-07-2024 Blood culture [facility] Start: 09-07-2024 [facility] Start: 09-06-2024 Consultation [facility] Start: 09-06-2024 Introduction of urin mike catheter [facility] Start: 09-05-2024 Care planning and pr oblem solving actions [facility] Start: 09-05-2024 Oxygen therapy [facility] Start: 09-05-2024 [facility] Start: 09-05-2024 End: 09-05-2024 ambulatory 09/05/2024 11:00 AM EDT Visit (SP) Office Hematology/Oncology [address] [place] [address] Angie Block [address] [place] [address] OV* PER TE 08/31* TO DISCUSS NEXT STEPS Hematology/Oncology Comment on above: OV* PER TE 08/31* TO DISCUSS NEXT STEPS Start: 09-05-2024 End: 09-05-2024 Patient encounter procedure Radiation Oncology Comment on above: Location: [facility] Location: [facility] TREAT MENT VISIT Start: 09-05-2024 Referral to gastroenterology service [facility] Start: 09-05-2024 Continuous positive airway pressure ventilation treatment [facility] Start: 09-05-2024 Wound care [facility] Start: 09-05-2024 Administration of bl ood product [facility] Start: 09-04-2024 Following clinical p athway protocol [facility] Start: 09-04-2024 Assessment of risk o f venous thromboembolism [facility] Start: 09-04-2024 Bacteria identified in Sputum by Culture [facility] Start: 09-04-2024 Care regimes management [facility] Start: 09-04-2024 Catheterization of vein [facility] Start: 09-04-2024 Clostridioides diffi cile DNA [Presence] in Unspecified specimen by PREMA with probe detection [facility] Start: 09-04-2024 Consultation for treatment [facility] Start: 09-04-2024 Continuous pulse oximetry [facility] Start: 09-04-[address] [facility] Start: 09-04-2024 Folic acid measureme nt, RBC [facility] Start: 09-04-2024 Inhalation therapy procedure [facility] Start: 09-04-2024 Insertion of cathete r into peripheral vein [facility] Start: 09-04-2024 Measuring intake and output [facility] Start: 09-04-2024 Notification of physician [facility] Start: 09-04-2024 Nucleic acid assay [facility] Start: 09-04-2024 Providing care accor ding to standard [facility] Start: 09-04-2024 Referral to occupati onal therapist [facility] Start: 09-04-[address] [facility] Start: 09-04-2024 Reticulocyte count [facility] Start: 09-04-2024 Urinary bladder resi dual urine study [facility] Start: 09-04-2024 Vital signs measurements [facility] Start: 09-04-2024 Verification routine [facility] Start: 09-04-[address] [facility] Start: 09-04-2024 Bacteria identified in Blood by Culture Blood Culture [facility] Start: 09-04-2024 Bacteria identified in Urine by Culture Urine Culture [facility] Start: 09-04-2024 End: 09-04-2024 [facility] Start: 09-04-2024 End: 09-04-2024 Patient encounter procedure 09/04/2024 10:30 AM EDT Appointment Radiation Oncology [address] [place] [address] Location: [email or web address] Comment on above: [facility]: [facility]: [facility]04-[facility] Start: 09-01-2024 End: 09-01-2024 Patient encounter procedure 09/01/2024 10:30 AM EDT Appointment Radiation Oncology [address] [place] [address] [facility] Comment on above: Location: [email or web address] Start: 08-31-2024 End: 08-31-2024 Patient encounter procedure 08/31/2024 10:30 AM EDT Appointment Radiation Oncology [address] [place] [address] [facility] On[facility] Comment on above: Location: [facility] Start: 08-30-2024 End: 08-30-2024 Nursing evaluation of patient and report 08/30/2024 12:45 PM EDT Nurse Visit Radiation Oncology [address] [place] [id number] Wstr, Nurse Radt [facility] [address] [place] [address] sim talk before tx at 1 Radiation Oncology Comment on above: sim talk before tx a t 1 Start: 08-30-2024 End: 08-30-2024 Patient encounter procedure Radiation Oncology Comment on above: palliative RT to par aspinal mass sim talk at 12:45, N EEDS MID MORNING sim talk at 12:45 6x Start: 08-28-2024 End: 08-28-2024 Patient encounter procedure Radiation Oncology Comment on above: palliative RT to par aspinal mass Location: [facility] Start: 08-21-2024 End: 08-21-2024 Ct guidance needle placement CT GUIDED NEEDLE BIOPSY Squamous cell carcinoma of left lung (HCC) Paraspinal mass 08/21/2024 2:08 PM EDT [facility] Start: 08-21-2024 Subsequent hospital visit by physician 08/21/2024 Hospital Encounter [facility] [address] [place] [address] Marco Gay MD, [address] [place] [address] Squamous cell carcinoma of left lung (HCC) [C34.92], Paraspinal mass [R22.2] [facility] Comment on above: 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) [C34.92], Paraspinal mass [R22.2] Start: 08-21-2024 End: 08-21-2024 ambulatory 08/21/2024 10:20 AM EDT Visit (SP) Office Hematology/Oncology [address] [place] [address] Valdemar Duncan MD [address], [place] [id number] OV/PET 08/01* Hematology/Oncology Comment on above: OV/PET 08/01* Start: 08-01-2024 End: 08-01-2024 Patient encounter procedure [facility] PET CT Comment on above: Malignant neoplasm o f unspecified part of unspecified bronchus or lung (HCC) [C34.90] Start: 07-13-2024 End: 07-13-2024 ambulatory Hematology/Oncology Comment on above: OV/CT 07/06* Start: 07-06-2024 End: 10-05-2024 Creatinine and Glomerular filtration rate.predicted panel - Serum, Plasma or Blood CREATININE BLD Lab Routine Squamous cell carcinoma of left lung (HCC) Expected: 07/06/2024, Expires: 10/05/2024 [facility] Work Phone: Comment on above: Expected: 07/06/2024 , Expires: 10/05/2024 Start: 07-06-2024 End: 07-06-2024 Patient encounter procedure 07/06/2024 8:40 AM EDT Appointment Cat Scan [address] [place] [id number] Malignant neoplasm of unspecified part of unspecified bronchus or lung (HCC) [C3... Cat Scan Comment on above: Malignant neoplasm o f unspecified part of unspecified bronchus or lung (HCC) [C3... Start: 06-14-2024 Patient referral [facility] Work Phone: Start: 06-09-2024 [facility] Start: 06-05-2024 Covid-19 Vaccine ( season) Covid-19 Vaccine ( season) [facility] Start: 05-31-2024 Egd transoral biopsy single/multiple [facility] Start: 05-31-2024 Patient discharge [facility] Start: 05-09-2024 [facility] Start: 03-15-2024 Advance Directive Discussion Advance Directive Discussion [facility] Start: 03-15-2024 Medicare Advantage A nnual Wellness Visit Medicare Advantage Annual Wellness Visit [facility] Start: 03-07-2024 End: 03-07-2024 ambulatory 03/07/2024 8:30 AM EST Visit (SP) Office Hematology/Oncology [address] [place] [address] [place] [address] [place] [address] 3 MO OV/CT 02/17* r/s from 02/24 Hematology/Oncology Comment on above: 3 MO OV/CT 02/17* r/s from 02/24 Start: 02-25-2024 End: 02-25-2024 ambulatory 02/25/2024 11:30 AM EST Visit (SP) Office Hematology/Oncology [address] [place] [address] [place] [address] [place] [address] 3 mo ov* Hematology/Oncology Comment on above: 3 mo ov* Start: 02-18-2024 End: 02-18-2024 Patient encounter procedure 02/18/2024 10:00 AM EST Appointment Cat Scan [address] [place] [address] Malignant neoplasm of unspecified part of unspecified bronchus or lung (HCC) Cat Scan Comment on above: Malignant neoplasm o f unspecified part of unspecified bronchus or lung (HCC) Start: 12-08-2023 End: 12-08-2023 Follow-up encounter 12/08/2023 9:00 AM EDT [facility] Radiation Oncology [address] [place] [address] Va Dunaway MD [address] [place] [address] 3 MO FOLLOW UP* Radiation Oncology Comment on above: 3 MO FOLLOW UP* Start: 12-03-2023 End: 12-03-2023 Follow-up encounter 12/03/2023 11:30 AM EDT [facility] Radiation Oncology [address] [place] [address] Va Dunaway MD [address] [place] [address] 3 MO FOLLOW UP* Radiation Oncology Comment on above: 3 MO FOLLOW UP* Start: 12-02-2023 End: 12-02-2023 Follow-up encounter 12/02/2023 9:00 AM EDT [facility] Radiation Oncology [address] [place] [address] Va Dunaway MD [address] [place] [address] 3 MO FOLLOW UP* Radiation Oncology Comment on above: 3 MO FOLLOW UP* Start: 12-01-2023 End: 12-01-2023 ambulatory 12/01/2023 10:00 AM EDT Visit (SP) Office Hematology/Oncology [address] [place] [address] [place] [address] [place] [address] 4 MO OV/CT 11/23* Hematology/Oncology Comment on above: 4 MO OV/CT 11/23* Start: 11-24-2023 End: 02-23-2024 CREATININE BLD CREATININE BLD Lab Routine Malignant neoplasm of unspecified part of unspecified bronchus or lung (HCC) Expected: 11/24/2023, Expires: 02/23/2024 [facility] Comment on above: Expected: 11/24/2023 , Expires: 02/23/2024 Start: 11-24-2023 End: 08-14-2024 CT Chest W contrast IV [facility] Work Phone: Comment on above: Expected: 11/24/2023 , Expires: 08/14/2024 Start: 11-24-2023 End: 11-24-2023 Patient encounter procedure 11/24/2023 8:40 AM EDT Appointment Cat Scan [address] [place] [address] Malignant neoplasm of unspecified part of unspecified bronchus or lung (HCC) [C34.90] Cat Scan Comment on above: Malignant neoplasm o f unspecified part of unspecified bronchus or lung (HCC) [C34.90] Start: 11-24-2023 End: 11-24-2023 ambulatory 11/24/2023 8:15 AM EDT Results Only [facility] [address] [place] [address] CREATININE* [facility] Comment on above: CREATININE* Start: 11-14-2023 Covid-19 Vaccine ( season) Covid-19 Vaccine ( season) [facility] Start: 11-14-2023 Covid-19 Vaccine ( season) Covid-19 Vaccine ( season) [facility] Start: 11-14-2023 Influenza vaccination Influenz a Vaccine (#1) [facility] Start: 08-27-2023 End: 08-27-2023 ambulatory 08/27/2023 9:00 AM EDT [facility] [address] [place] [address] Va Dunaway MD [address] [place] [address] F/U OV CT 08/23* Radiation Oncology Comment on above: F/U OV CT 08/23* Start: 08-24-2023 End: 08-24-2023 Patient encounter procedure 08/24/2023 9:00 AM EDT Appointment Cat Scan [address] [place] [address] Dx: Malignant neoplasm of unspecified part of unspecified bronchus or lung (HCC) [C34.90] Cat Scan Comment on above: Dx: Malignant neopla sm of unspecified part of unspecified bronchus or lung (HCC) [C34.90] Start: 08-23-2023 End: 07-22-2024 CT Chest WO contrast CT CHEST WO IVCON Radiology Routine Malignant neoplasm of unspecified part of unspecified bronchus or lung (HCC) Expected: 08/23/2023 (Approximate), Expires: 07/22/2024 [facility] Work Phone: Comment on above: Expected: 08/23/2023 (Approximate), Expires: 07/22/2024 Start: 06-11-2023 Covid-19 Vaccine () Covid-19 Vaccine () [facility] Start: 03-15-2023 Advance Directive Discussion Advance Directive Discussion [facility] Start: 03-15-2023 Behavioral Health Screening Behavioral Health Screening [facility] Start: 03-15-2023 Depression Assessment Depression Ass essment [facility] Start: 01-13-2023 [facility] Start: 01-13-2023 Brnchsc w/brncl alve olar lavage DX BRONCHOSCOPE/LAVAGE [facility] Start: 01-13-2023 Bronchoscopy w/transbronchial lung bx 1 lobe BRONCHOSCOPY/LUNG BX EACH [facility] Start: 01-13-2023 CORE NDL BX LNG/MED PERQ CORE NDL BX LNG/MED PERQ [facility] Start: 01-13-2023 Fungal Culture Fungal Culture [facility] Start: 01-13-2023 Patient discharge [facility] Start: 01-13-2023 [facility] Start: 03-15-2020 Urine microalbumin profile DTa P,Tdap,Td Vaccine (2 - Tdap) [facility] Start: 2011 Prostate specific an tigen measurement Prostate Cancer Screening Discussion [facility] Start: 2001 Prostate specific an tigen measurement Prostate Cancer Screening Discussion [facility] Start: 2001 Screening for malign ant neoplasm of colon [facility] Start: 1986 Zoledronic acid therapy Alpha- 1 Antitrypsin Deficiency Screening [facility] Start: 1974 Annual PCP Team Customer Greeter cha Disease Visit Annual PCP Team Chronic Disease Visit [facility] Start: 1974 Anxiety Screening Anxiety Screening [facility] Start: 1974 Depression Screening Depression Scre ening [facility] Start: 1974 Hepatitis B surface antibody level LDL Cholesterol [facility] Start: 1974 Hepatitis C screening Hepatitis C Sc reening [facility] Start: 1966 Diabetic foot examination Diabetic F oot Exam [facility] Start: 1966 Glaucoma screening Dilated Retinal E xam [facility] Start: 1966 Hepatitis B screening Urine Albumin:Creatinine Ratio [facility] Start: 1961 Hemoglobin A1c measurement HbA1C [facility] Start: 1956 Abdominal aortic ane urysm screening Abdominal Aortic Aneurysm Screening [facility] Acid fast bacilli culture [facility] Anion gap in Serum o r Plasma [facility] Anion gap in Serum o r Plasma [facility] Body fluid analysis [facility] BUN/Creatinine ratio [facility] BUN/Creatinine ratio [facility] Calcium [Mass/volume ] in Serum or Plasma [facility] Calcium [Mass/volume ] in Serum or Plasma [facility] Carbon dioxide, tota l [Moles/volume] in Central venous blood [facility] Carbon dioxide, tota l [Moles/volume] in Central venous blood [facility] Cobalamin (Vitamin B 12) [Mass/volume] in Serum or Plasma [facility] Creatinine [Mass/vol ume] in Serum or Plasma [facility] Creatinine [Mass/vol ume] in Serum or Plasma [facility] End: 04-06-2025 CT Chest W contrast IV CT CHEST W IVCON Radiology Routine Malignant neoplasm of unspecified part of unspecified bronchus or lung (HCC) 1 Occurrences starting 03/07/2024 until 04/06/2025 [facility] Work Phone: Comment on above: 1 Occurrences starti ng 03/07/2024 until 04/06/2025 CT Chest WO contrast CT CHEST WO IVCON Radiology Routine Malignant neoplasm of unspecified part of unspecified bronchus or lung (HCC) 08/24/2023 9:14 AM EDT [facility] Work Phone: End: 12-30-2024 CT Chest WO contrast CT CHEST WO IVCON Radiology Routine Malignant neoplasm of unspecified part of unspecified bronchus or lung (HCC) 1 Occurrences starting 12/01/2023 until 12/30/2024 [facility] Work Phone: Comment on above: 1 Occurrences starti ng 12/01/2023 until 12/30/2024 CT Chest WO contrast CT CHEST WO IVCON Radiology Routine Malignant neoplasm of unspecified part of unspecified bronchus or lung (HCC) 02/18/2024 9:51 AM EST [facility] Work Phone: CT Guidance for radi ation treatment of Unspecified body region CT SIM PLANNING RADIATION ONCOLOGY Radiology Routine Squamous cell carcinoma of left lung (HCC) Ordered: 04/30/2023 [facility] Work Phone: Comment on above: Ordered: 04/30/2023 CT Guidance for radi ation treatment of Unspecified body region CT SIM PLANNING RADIATION ONCOLOGY Radiology Routine 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) Ordered: 10/05/2024 [facility] Work Phone: Comment on above: Ordered: 10/05/2024 Ct guidance needle placement CT GUIDED NEEDLE BIOPSY Squamous cell carcinoma of left lung (HCC) Paraspinal mass ME IR Cytology report of B tad fluid Cyto stain [facility] Doppler ultrasonogra phy of aorta [facility] Erythrocyte mean corpuscular volume determination [facility] Ferritin [Mass/volum e] in Serum or Plasma [facility] Glucose [Mass/volume ] in Serum or Plasma [facility] Glucose [Mass/volume ] in Serum or Plasma [facility] Guidance for biopsy of Soft tissue IMAGING GUIDED BIOPSY SOFT TISSUE MASS/MUSCLE Radiology Routine Squamous cell carcinoma of left lung (HCC) Paraspinal mass Ordered: 08/17/2024 [facility] Work Phone: Comment on above: Ordered: 08/17/2024 Hematocrit [Volume Fraction] of Blood [facility] Hematocrit [Volume Fraction] of Blood [facility] Hemoglobin [Mass/vol ume] in Blood [facility] Iron [Mass/mass] in Unspecified specimen [facility] Iron saturation [Mas s Fraction] in Serum or Plasma [facility] Lactic acid measurement [facility] Leukocytes [#/volume ] in Blood [facility] Mean corpuscular hemoglobin concentration determination [facility] Mean corpuscular hemoglobin determination [facility] Measurement of renal function [facility] Measurement of renal function [facility] Mycobacterium sp identified in Unspecified specimen by Organism specific culture [facility] Neutrophil count [facility] Neutrophil percent differential count [facility] Patient Education [facility] Work Phone: Patient referral [facility] Work Phone: End: 08-12-2025 PET+CT Guidance for localization of tumor of Skull base to mid-thigh-- W [id number] IV NM PET/CT SKULL-THIGH SUBSEQUENT Radiology Routine Malignant neoplasm of unspecified part of unspecified bronchus or lung (HCC) 1 Occurrences starting 07/13/2024 until 08/12/2025 [facility] Work Phone: Comment on above: 1 Occurrences starti ng 07/13/2024 until 08/12/2025 Platelets [#/volume] in Blood [facility] Porphobilinogen [Mass/time] in 24 hour Urine [facility] Porphyrin fractions panel - 24 hour Urine [facility] Potassium measurement [facility] Potassium measurement [facility] Radionuclide study o f abdomen [facility] Red blood cell count [facility] Red cell distributio n width determination [facility] Serum chloride measurement [facility] Serum chloride measurement [facility] Sodium measurement [facility] Sodium measurement [facility] Specimen description [facility] Specimen processing [facility] Total iron binding capacity measurement [facility] Urea nitrogen [Mass/volume] in Serum or Plasma [facility] Urea nitrogen [Mass/volume] in Serum or Plasma [facility] Urine culture [facility] US Abdomen limited [facility] White blood cell count [facility] Immunizations Immunization Date Immunization Notes Care Provider Nohemy matthews 12-07-2023 Pfizer Covid-19 (Comirnaty) Dr. Romain Roach DO Work Phone: [facility] 12-07-2023 tetanus toxoid, reduced diphtheria toxoid, and acellular pertussis vaccine, adsorbed Dr. Romain Roach DO Work Phone: [facility] 12-07-2023 influenza virus vaccine, unspecified formulation Valdemar Duncan MD Work Phone: [facility] 02-10-2023 Pfizer Covid-19 (Comirnaty) Dr. Romain Roach DO Work Phone: [facility] 12-23-2022 influenza (aIIV4) vaccine, age 65+ yr, quadrivalent, PF (FLUAD QUAD) Fermín Chadwick MD, PhD Work Phone: [facility] 12-23-2022 influenza, injectabl e, quadrivalent, preservative free Dr. Romain Roach DO Work Phone: [facility] 12-23-2022 respiratory syncytia l virus (RSV) vaccine, adjuvanted (AREXVY) Fermín Chadwick MD, PhD Work Phone: [facility] 12-23-2022 influenza virus vaccine, unspecified formulation Va Dunaway MD Work Phone: [facility] 09-22-2022 Covid Pfizer Bivalen t Booster Dr. Romain Roach DO Work Phone: [facility] 09-22-2022 pneumococcal conjuga te (PCV20) vaccine, 20 valent (PREVNAR 20) Fermín Chadwick MD, PhD Work Phone: [facility] 01-13-2022 influenza (HD-IIV4) vaccine, age 65+ yr, high dose, quadrivalent, PF (FLUZONE HIGH-DOSE) Fermín Chadwick MD, PhD Work Phone: [facility] 10-21-2021 Covid (Pfizer) Dr. Romain machado DO Work Phone: [facility] 01-08-2021 SARS-CoV-2 mRNA (tozinameran) vaccine ROMAIN ROACH DO [facility] Comment on above: Result Comment: 2020: [id number] 12-18-2020 influenza virus vaccine, unspecified formulation ROMAIN ROACH DO [facility] 12-18-2020 influenza, injectabl e, quadrivalent, preservative free Fermín Chadwick MD, PhD Work Phone: [facility] 12-18-2020 SARS-CoV-2 mRNA (tozinameran) vaccine ROMAIN ROACH DO [facility] Comment on above: Result Comment: 2020: [id number] 01-29-2020 Influenza, injectabl e, Madin Lenore Canine Kidney, preservative free, quadrivalent Fermín Chadwick MD, PhD Work Phone: [facility] 02-22-2019 zoster vaccine recombinant ROMAIN ROACH DO [facility] 11-22-2018 influenza, injectabl e, quadrivalent, preservative free Fermín Chadwick MD, PhD Work Phone: [facility] 11-22-2018 zoster vaccine recombinant ROMAIN ROACH DO [facility] 01-10-2018 influenza, injectabl e, quadrivalent, preservative free Fermín Chadwick MD, PhD Work Phone: [facility] 01-10-2018 pneumococcal conjuga te vaccine, 13 valent ROMAIN ROACH DO [facility] 12-09-2016 influenza, injectabl e, quadrivalent, preservative free Fermín Chadwick MD, PhD Work Phone: [facility] 12-09-2016 zoster vaccine, live Fermín Chadwick MD, PhD Work Phone: [facility] 11-14-2015 zoster vaccine, live Fermín Chadwick MD, PhD Work Phone: [facility] 03-15-2015 influenza, high dose seasonal, preservative-free Fermín Chadwick MD, PhD Work Phone: [facility] 03-15-2010 diphtheria, tetanus toxoids and acellular pertussis vaccine Dr. Romain Roach DO Work Phone: [facility] 03-15-2010 diphtheria, tetanus toxoids and acellular pertussis vaccine, unspecified formulation Fermín Chadwick MD, PhD Work Phone: [facility] Payers Date Payer Category Payer Self-pay [id number] 2024 Medicare (Managed Care) LUCY BREWER [id number] 2022 Medicare [id number] 2018 Private Health Insurance [id number] 2018 Medicaid [id number] 2017 Medicare [id number] 1955 Unknown [id number] 2.16.840.1.711067.3.579.2. 651 1956 Unknown [id number] 2.16.840.1.065034.3.579.2. 627 1956 Unknown [id number] 2.16.840.1.946199.3.579.2. 627 1956 Unknown [id number] 2.16.840.1.817038.3.579.2. 627 1956 Unknown [id number] 2.16.840.1.118402.3.579.2. 627 Unknown [id number] 2.16.840.1.639398.3.579.2. 462 Unknown [id number] 2.16.840.1.908880.3.579.2. 462 Unknown [id number] 2.16.840.1.784877.3.579.2. 462 Unknown [id number] 2.16.840.1.711547.3.579.2. 462 Unknown [id number] 2.16.840.1.219353.3.579.2. 462 Unknown [id number] 2.16.840.1.519695.3.579.2. 462 Unknown [id number] 2.16.840.1.521059.3.579.2. 462 Unknown [id number] 2.16.840.1.361662.3.579.2. 462 Unknown [id number] 2.16.840.1.840153.3.579.2. 462 Unknown [id number] 2.16.840.1.624647.3.579.2. 462 Unknown [id number] 2.16.840.1.691711.3.579.2. 462 Unknown [id number] 2.16.840.1.553208.3.579.2. 462 Unknown [id number] 2.16.840.1.088715.3.579.2. 462 Unknown [id number] 2.16.840.1.341101.3.579.2. 462 Unknown [id number] 2.16.840.1.800940.3.579.2. 462 Unknown [id number] 2.16.840.1.135441.3.579.2. 462 Unknown [id number] 2.16840.1.727310.3.579.2. 462 Unknown [id number] 2.16.840.1.453421.3.579.2. 462 Unknown [id number] 2.840.1.749195.3.579.2. 462 Unknown [id number] 2.840.1.904689.3.579.2. 462 Unknown [id number] 2.840.1.645273.3.579.2. 462 Unknown [id number] 2.840.1.026791.3.579.2. 462 Unknown [id number] 2.840.1.949630.3.579.2. 462 Unknown [id number] 2.840.1.377411.3.579.2. 462 Unknown [id number] 2.840.1.871978.3.579.2. 462 Unknown [id number] 2.16840.1.284490.3.579.2. 462 Unknown [id number] 2.16.840.1.312606.3.579.2. 462 Unknown [id number] 2.16840.1.012984.3.579.2. 462 Unknown [id number] 2.840.1.833228.3.579.2. 462 Unknown [id number] 2.16.840.1.435995.3.579.2. 462 Unknown [id number] 2.16.840.1.112657.3.579.2. 462 Unknown [id number] 2.16.840.1.328493.3.579.2. 462 Unknown [id number] 2.16.840.1.531599.3.579.2. 462 Unknown [id number] 2.16.840.1.132797.3.579.2. 462 Unknown [id number] 2.16.840.1.039930.3.579.2. 462 Unknown [id number] 2.840.1.850518.3.579.2. 462 Unknown [id number] 2.840.1.002815.3.579.2. 462 Unknown [id number] 2.840.1.859326.3.579.2. 462 Unknown [id number] 2..840.1.552666.3.579.2. 462 Unknown [id number] 2..840.1.570464.3.579.2. 462 Unknown [id number] 2..840.1.558487.3.579.2. 462 Unknown [id number] 2.16.840.1.688790.3.579.2. 462 Unknown [id number] 2.16.840.1.953730.3.579.2. 462 Unknown [id number] 2.16.840.1.739266.3.579.2. 462 Unknown [id number] 2.16.840.1.097270.3.579.2. 462 Unknown [id number] 2.16.840.1.129916.3.579.2. 462 Unknown [id number] 2.16.840.1.064855.3.579.2. 462 Unknown [id number] 2.16840.1.108615.3.579.2. 462 Unknown [id number] 2.16.840.1.865210.3.579.2. 462 Unknown [id number] 2.16.840.1.154975.3.579.2. 462 Unknown [id number] 2.16.840.1.889401.3.579.2. 462 Unknown [id number] 2.16.840.1.368344.3.579.2. 462 Unknown [id number] 2.16.840.1.720566.3.579.2. 462 Unknown [id number] 2.16.840.1.614210.3.579.2. 462 Unknown [id number] 2.16.840.1.770083.3.579.2. 462 Unknown [id number] 2.16.840.1.443173.3.579.2. 462 Social History Date Type Detail Facility Start: 09-13-2018 End: 10-19-2024 Ex-smoker (finding) [facility] Comment on above: no tobacco smoke exp osure Start: 1955 Sex Assigned At Male A [facility] Start: 01-08-2023 End: 01-08-2023 Tobacco smoking status NEIS Unknown if ever smoked [facility] Start: 1955 Sex Assigned At Not on file C [facility] Start: 04-01-2023 End: 12-03-2023 Gender identity Not on file [facility] History of tobacco use Current smoker [facility] History of tobacco use Cigarette Smoker C [facility] Start: 03-18-2023 End: 12-03-2023 Cigarettes smoked current (pack per day) - Reported 2 [facility] Start: 03-18-2023 End: 03-07-2024 Tobacco use and exposure Smokeless tobacco non-user [facility] Start: 04-21-2023 End: 04-27-2024 Alcohol intake Current drinker of alcohol (finding) [facility] Start: 04-21-2023 Alcohol Comment occ [facility] National Score (1-10 0), lower number is lower risk 80 [facility] Start: 03-07-2024 Tobacco Comment Pt smoked 2 pa cks daily x 49 years, quit 2016 [facility] Start: 05-25-2024 End: 06-29-2024 Sex Male (finding) [facility] Start: 08-17-2024 Alcoholic beverage intake Ex-drinker (finding) [facility] Start: 08-17-2024 Alcohol Comment hasn't drank i n 5 months [facility] Medical Equipment Procedure Code Equipment Code Equipment Origin al Text Equipment Identifier Dates [facility] MICRO THIN 3 3G LANCETS Start: 08-28-2019 [facility] MI[facility] THIN 3 3G LANCETS Start: 08-28-2019 [facility] MICRO THIN 3 3G LANCETS Start: 08-28-2019 [employer] LANCETS 33G Star t: 03-17-2021 See Instructions , true metrix test strips one strip 3 times daily and as needed #300 strips for 90 days and 1 refills.., # 1 EA, 0 Refill(s), Pharmacy: [facility], Uncontrolled type 2 diabetes mellitus, 177, cm, 05/29/21 9:12:00 EDT... Start: 07-06-2021 See Instructions , true metrix lancets, 1 lancet 3 times daily and as needed 1 box of 100 for 30 days and 3 refills., # 1 EA, 0 Refill(s), Pharmacy: [facility], Uncontrolled type 2 diabetes mellitus, 177, cm, 05/29/21 9:12:00 EDT, He... Start: 07-06-2021 See Instructions , true metrix test strips one strip 3 times daily and as needed #300 strips for 90 days and 1 refills.., # 1 EA, 0 Refill(s), Pharmacy: [facility], Uncontrolled type 2 diabetes mellitus, 177, cm, 05/29/21 9:12:00 EDT... Start: 07-06-2021 See Instructions , true metrix lancets, 1 lancet 3 times daily and as needed 1 box of 100 for 30 days and 3 refills., # 1 EA, 0 Refill(s), Pharmacy: [facility], Uncontrolled type 2 diabetes mellitus, 177, cm, 05/29/21 9:12:00 EDT, He... Start: 07-06-2021 See Instructions , true metrix test strips one strip 3 times daily and as needed #300 strips for 90 days and 1 refills.., # 1 EA, 0 Refill(s), Pharmacy: [facility], Uncontrolled type 2 diabetes mellitus, 177, cm, 05/29/21 9:12:00 EDT... Start: 07-06-2021 See Instructions , true metrix lancets, 1 lancet 3 times daily and as needed 1 box of 100 for 30 days and 3 refills., # 1 EA, 0 Refill(s), Pharmacy: [facility], Uncontrolled type 2 diabetes mellitus, 177, cm, 05/29/21 9:12:00 EDT, He... Start: 07-06-2021 See Instructions , true metrix test strips one strip 3 times daily and as needed #300 strips for 90 days and 1 refills.., # 1 EA, 0 Refill(s), Pharmacy: [facility], Uncontrolled type 2 diabetes mellitus, 177, cm, 05/29/21 9:12:00 EDT... Start: 07-06-2021 See Instructions , true metrix lancets, 1 lancet 3 times daily and as needed 1 box of 100 for 30 days and 3 refills., # 1 EA, 0 Refill(s), Pharmacy: [facility], Uncontrolled type 2 diabetes mellitus, 177, cm, 05/29/21 9:12:00 EDT, He... Start: 07-06-2021 See Instructions , true metrix test strips one strip 3 times daily and as needed #300 strips for 90 days and 1 refills.., # 1 EA, 0 Refill(s), Pharmacy: [facility], Uncontrolled type 2 diabetes mellitus, 177, cm, 05/29/21 9:12:00 EDT... Start: 07-06-2021 See Instructions , true metrix lancets, 1 lancet 3 times daily and as needed 1 box of 100 for 30 days and 3 refills., # 1 EA, 0 Refill(s), Pharmacy: [facility], Uncontrolled type 2 diabetes mellitus, 177, cm, 05/29/21 9:12:00 EDT, He... Start: 07-06-2021 See Instructions , true metrix lancets, 1 lancet 3 times daily and as needed 3 box of 100 for 90 days and 3 refills. E11.65, # 1 EA, 0 Refill(s), Pharmacy: [facility] Mail [facility], Uncontrolled type 2 diabetes mellitus, 178, cm, 01/22/22 9:03... Start: 01-30-2022 See Instructions , true metrix test strips one strip 3 times daily and as needed #300 strips for 90 days and 3 refills..E11.65, # 1 EA, 0 Refill(s), Pharmacy: [facility] Mail [facility], Uncontrolled type 2 diabetes mellitus, 178, cm, 01/22/22 9... Start: 01-30-2022 See Instructions , true metrix test strips one strip 3 times daily and as needed #300 strips for 90 days and 3 refills..E11.65, # 300 EA, 3 Refill(s), Pharmacy: [facility] ([facility] ), Uncontrolled type 2 diabetes mellitus, 178, cm, 06/11/22 9:39:00 EDT, Height, 100, kg, 06/11/22 9:39:00 EDT, Dosing Weight Start: 09-17-2022 See Instructions , true metrix lancets, 1 lancet 3 times daily and as needed 3 box of 100 for 90 days and 3 refills. E11.65, # 1 EA, 0 Refill(s), Pharmacy: [facility] ([facility] ), Uncontrolled type 2 diabetes mellitus, 178, cm, 06/11/22 9:39:00 EDT, Height, 100, kg, 06/11/22 9:39:00 EDT, Dosing Weight Start: 09-17-2022 See Instructions , true metrix test strips one strip 3 times daily and as needed #300 strips for 90 days and 3 refills..E11.65, # 1 EA, 0 Refill(s), Pharmacy: [facility] ([facility] ), Uncontrolled type 2 diabetes mellitus, 178, cm, 06/11/22 9:39:00 EDT, Height, 100, kg, 06/11/22 9:39:00 EDT, Dosing Weight Start: 09-17-2022 See Instructions , true metrix test strips one strip 3 times daily and as needed #300 strips for 90 days and 3 refills..E11.65, # 300 EA, 3 Refill(s), Pharmacy: [facility] ([facility] ), Uncontrolled type 2 diabetes mellitus, 178, cm, 06/11/22 9:39:00 EDT, Height, 100, kg, 06/11/22 9:39:00 EDT, Dosing Weight Start: 09-17-2022 See Instructions , true metrix lancets, 1 lancet 3 times daily and as needed 3 box of 100 for 90 days and 3 refills. E11.65, # 1 EA, 0 Refill(s), Pharmacy: [facility] ([facility] ), Uncontrolled type 2 diabetes mellitus, 178, cm, 06/11/22 9:39:00 EDT, Height, 100, kg, 06/11/22 9:39:00 EDT, Dosing Weight Start: 09-17-2022 See Instructions , true metrix test strips one strip 3 times daily and as needed #300 strips for 90 days and 3 refills..E11.65, # 1 EA, 0 Refill(s), Pharmacy: [facility] ([facility] ), Uncontrolled type 2 diabetes mellitus, 178, cm, 06/11/22 9:39:00 EDT, Height, 100, kg, 06/11/22 9:39:00 EDT, Dosing Weight Start: 09-17-2022 See Instructions , true metrix lancets, 1 lancet 3 times daily and as needed 3 box of 100 for 90 days and 3 refills. E11.65, # 1 EA, 0 Refill(s), Pharmacy: [facility], Uncontrolled type 2 diabetes mellitus, 178, cm, 12/10/22 8:48:00 EDT, Height, 99.5, kg, 12/10/22 8:48:00 EDT, Dosing Weight Start: 02-23-2023 See Instructions , true metrix test strips one strip 3 times daily and as needed #300 strips for 90 days and 3 refills..E11.65, # 1 EA, 0 Refill(s), Pharmacy: [facility], Uncontrolled type 2 diabetes mellitus, 178, cm, 12/10/22 8:48:00 EDT, Height, 99.5, kg, 12/10/22 8:48:00 EDT, Dosing Weight Start: 02-23-2023 Goals Date Patient Goal Desired Activity /State Functional Status Date Assessment Result Facility 09-25-2024 Functional status Ambulates [facility] Work Phone: 09-25-2024 Functional status Poor [facility] Work Phone: 09-11-2024 Functional status Ambulates;Chair [facility] Work Phone: Mental Status Date Assessment Result Facility 10-19-2024 Cognitive function Awake;Alert;F ollows Commands [facility] Work Phone: 10-05-2024 Cognitive function Voice/Name [facility] Work Phone: 09-25-2024 Cognitive function Voice/Name [facility] Work Phone: 09-11-2024 Cognitive function Voice/Name [facility] Work Phone: 05-31-2024 Cognitive function Voice/Name [facility] Work Phone: 05-09-2024 Cognitive function Voice/Name [facility] Work Phone: 01-13-2023 Cognitive function Voice/Name [facility] Work Phone: Clinical Notes 11-08-2019 to 10-19-2024 Telephone Encounter - Ilana Neal LPN - 10/09/2024 11:49 AM EDTTelephone Encounter - Ilana Neal LPN - 10/09/2024 11:49 AM Laura Lewis RN - 10/09/2024 10:40 AM EDT Note Date & Type Note Facility 10-19-2024 Radiology Diagnostic study note [facility] 10-09-2024 Telephone encount er Note Note faxed as requested. Ilana Neal LPN [facility] 10-09-2024 Miscellaneous Notes Formattin g of this note might be different from the original. Note faxed as requested. Ilana Neal LPN Please fax most recent med onc note to [facility] for palliative care at [phone] attn: Adarsh. documented in this encounter [facility] 10-09-2024 Note HNO ID: [id number] Author: LAURA SMILEY RN Service: ? Author Type: Registered Nurse Type: Progress Notes Filed: 10/09/2024 10:41 Note Text: Written discharge instructions given and reviewed with patient. Patient verbalizes understanding. Encouraged to call with any questions or concerns. Instruction for follow up appointment given by Dr. Dunaway. [facility] 10-09-2024 History of Presen t illness Narrative Written discharge instructions given and reviewed with patient. Patient verbalizes understanding. Encouraged to call with any questions or concerns. Instruction for follow up appointment given by Dr. Dunaway. documented in this encounter [facility] 10-09-2024 Note HNO ID: [id number] Author: VA DUNAWAY MD Service: ? 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 EXAM: KPS: 60 General Appearance: Alert and oriented. No acute distress. Radiation dermatitis: No IMAGING/LAB RESULTS: None Treatment chart checked: Yes Patient treatment site reviewed and verified:Yes Port films reviewed and current:Yes Medications started: None ASSESSMENT/PLAN: Clinically stable. No significant treatment-related side effects The patient has completed radiotherapy as planned. Acute and delayed side effects were reviewed. 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 EXAM: KPS: 60 General Appearance: Alert and oriented. No acute distress. Radiation dermatitis: No IMAGING/LAB RESULTS: None Treatment chart checked: Yes Patient treatment site reviewed and verified:Yes Port films reviewed and current:Yes Medications started: None ASSESSMENT/PLAN: Clinically stable. No significant treatment-related side effects The patient has completed radiotherapy as planned. Acute and delayed side effects were reviewed. Va Dunaway MD Radiation Therapy - Nursing Note (OTV) PATIENT NAME: Rey Mead PATIENT October 09, 2024 [facility] FACILITY/LOCATION: [place] NURSING NOTE TYPE: MEDICARE SALES REPRESENTATIVE Subjective Data See pain assessment Additional Data Do you want to see a Churn Driller Helper? No Status: Patient is male Stress Scale: On a scale of 0 to 10, what number best describes how much distress you have experienced in the past week?(0 being no distress and 10 being extreme distress) 5 Social work notified: Pt denied need to see social science instructor at this time. Nursing Assessment Fatigue: none Appetite: good Nutritional Intake: Regular oral intake. Weight Gain/Loss: Not applicable Ambulatory weight history: Last 6 Encounter Wt Readings: Date: Wt: 08/28/2024 0 kg () 08/17/2024 83.9 kg (185 lb) 08/17/2024 83.9 kg (185 lb) 07/13/2024 88 kg (194 lb) 03/07/2024 98.2 kg (216 lb 8 oz) 12/01/2023 98.2 kg (216 lb 8 oz) Nausea:None Vomiting: None Bowel Function: normal bowel movements Erythema/Hyperpigmentation:non e Desquamation:dry desquamation Rash:none Skin Care: None Skin Sensation: mild itching Focused Assessment MEDICARE SALES REPRESENTATIVE: Alopecia: no. Headache: none. Vision changes: none. Arm/leg numbness: none. Limb coordination: mild. Memory changes: none. Syncope: none. Disorientation: none. Seizures: none. Hearing changes: No. SIGNED by: Laura Smiley RN documented in this encounter [facility] 10-09-2024 Telephone encount er Note Please fax most recent med onc note to [facility] for palliative care at [phone] attn: Adarsh. [facility] Work Phone: 10-09-2024 Note HNO ID: [id number] Author: LAURA SMILEY RN Service: ? Author Type: Registered Nurse Type: Progress Notes Filed: 10/09/2024 10:51 Note Text: Radiation Therapy - Nursing Note (OTV) PATIENT NAME: Rey Mead PATIENT October 09, 2024 [facility] FACILITY/LOCATION: [place] NURSING NOTE TYPE: MEDICARE SALES REPRESENTATIVE Subjective Data See pain assessment Additional Data Do you want to see a Churn Driller Helper? No Status: Patient is male Stress Scale: On a scale of 0 to 10, what number best describes how much distress you have experienced in the past week?(0 being no distress and 10 being extreme distress) 5 Social work notified: Pt denied need to see social science instructor at this time. Nursing Assessment Fatigue: none Appetite: good Nutritional Intake: Regular oral intake. Weight Gain/Loss: Not applicable Ambulatory weight history: Last 6 Encounter Wt Readings: Date: Wt: 08/28/2024 0 kg () 08/17/2024 83.9 kg (185 lb) 08/17/2024 83.9 kg (185 lb) 07/13/2024 88 kg (194 lb) 03/07/2024 98.2 kg (216 lb 8 oz) 12/01/2023 98.2 kg (216 lb 8 oz) Nausea:None Vomiting: None Bowel Function: normal bowel movements Erythema/Hyperpigmentation:non e Desquamation:dry desquamation Rash:none Skin Care: None Skin Sensation: mild itching Focused Assessment MEDICARE SALES REPRESENTATIVE: Alopecia: no. Headache: none. Vision changes: none. Arm/leg numbness: none. Limb coordination: mild. Memory changes: none. Syncope: none. Disorientation: none. Seizures: none. Hearing changes: No. SIGNED by: Laura Smiley RN [facility] 10-09-2024 Note Education (JAMES) REY MEAD ([id number]) 1955 M Date Time Provider Department 10/09/24 VA DUNAWAY Reason for Visit: Patient Education [91] Primary Visit Diagnosis:Malignant neoplasm of unspecified part of unspecified bronchus or lung (HCC) [C34.90] Other Visit Diagnosis:Squamous cell carcinoma of left lung (HCC) [C34.92] During your visit today, we recorded the following information about you: Allergies As of Date: 10/09/2024 (No Known Allergies) Date Reviewed: 10/09/2024 Reviewed by: Laura Smiley RN - Fully Assessed Prescriptions as of 10/09/2024 - oxyCODONE IR (ROXICODONE) 5 mg immediate release tablet Take 1-2 tablets by mouth every 6 hours as needed for pain for up to 7 days. FOR PAIN. - gabapentin (NEURONTIN) 300 mg capsule Take 1 capsule by mouth once daily for 30 days. - acetaminophen (TYLENOL EXTRA STRENGTH) 500 mg tablet Take 1,000 mg by mouth every 6 hours as needed. - insulin 75/25 lispro protamine-lispro units/mL (HUMALOG MIX 75/25 KWIKPEN) 100 unit/mL (75-25) pen Inject 15 Units subcutaneously two times a day with meals. - predniSONE (DELTASONE) 5 mg tablet Take 15 mg by mouth once daily. take three a day to finish course, Dr Hurd - VITAMIN B COMPLEX-100 ORAL Take by mouth. - fluticasone/umeclidin/vilanter (TRELEGY ELLIPTA INHALATION) Inhale 1 Puff as instructed once daily. - YSZUILTADPO-UZNMXSDWO-PIWLZSBK INHALATION Inhale as instructed. - ALBUTEROL INHALATION Inhale 2 Puffs as instructed every 4 hours as needed. - aspirin 81 mg cap Take 81 mg by mouth once daily. - atorvastatin (LIPITOR) 20 mg tablet Take 20 mg by mouth once daily. - albuterol (PROVENTIL) 2.5 mg /3 mL (0.083 %) nebulizer solution Use 2.5 mg via nebulizer every 4 hours as needed. - albuterol HFA (PROVENTIL HFA, VENTOLIN HFA) 90 mcg/actuation inhaler Inhale 1-2 Puffs as instructed every 4 hours as needed. - FARXIGA 5 mg tablet Take 5 mg by mouth once daily. - furosemide (LASIX) 40 mg tablet Take 40 mg by mouth once daily. - lisinopril 2.5 mg tablet Take 2.5 mg by mouth once daily. - LORazepam (ATIVAN) 1 mg tablet Take 1 mg by mouth every 6 hours as needed. - metFORMIN ER (FORTAMET) 500 mg 24 hr tablet Take one tablet by mouth in AM AND two tablets in PM. - metoprolol tartrate, short acting, (LOPRESSOR) 50 mg tablet Take 50 mg by mouth once daily. - PARoxetine (PAXIL) 10 mg tablet Take 10 mg by mouth once daily. - pregabalin (LYRICA) 150 mg capsule Take 150 mg by mouth once daily. - roflumilast (DALIRESP) 250 mcg tablet Take 250 mcg by mouth once daily. - RYBELSUS 14 mg tablet Take 7 mg by mouth once daily. - tamsulosin (FLOMAX) 0.4 mg Take 0.4 mg by mouth once daily. - L.acid/L.casei/B.bif/B.link/FOS (PROBIOTIC BLEND ORAL) Take 1 capsule by mouth once daily. Encounter Status:Closed by LAURA SMILEY on 10/09/24 [facility] 10-05-2024 Telephone encount er Note Madeleine PT from [facility] called to report that pt's BP has stabilized. Pt followed up with PCP today as well. Pt wants to come in tomorrow to resume radiation. Dr Dunaway aware and pt ok to resume. Therapists aware and scheduled. Pt's friend that transports him is Al and I called him and notified him of the appointment at [phone]. Madeleine notified as well at [phone]. [facility] 10-05-2024 Miscellaneous Notes Formattin g of this note might be different from the original. Madeleine PT from [facility] called to report that pt's BP has stabilized. Pt followed up with PCP today as well. Pt wants to come in tomorrow to resume radiation. Dr Dunaway aware and pt ok to resume. Therapists aware and scheduled. Pt's friend that transports him is Al and I called him and notified him of the appointment at [phone]. Madeleine notified as well at [phone]. Albertina, OT for [facility], called to report that patient is home with home health and is anxious to resume radiation when able. 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 Patient's blood pressures are low and he drops to 60's/40's when going from sitting to standing. Patient would like assurances that he he puts in the great effort to get her for treatment that he will be treated. I advised Albertina that I could not guarantee that if he comes in he will without fail be treated. PCP stopped Metoprolol today and pt is hopeful that he will be stable enough to come in on Wednesday for treatment. Dr Dunaway aware and willing if stable. will call with an update on . Therapists aware. documented in this encounter [facility] 10-03-2024 Telephone encount er Note Kerrie from with [facility] called to ask for refill on Colin's oxy. He is home from hospital now and has only a few tablets left so he is using sparingly. Has pain in chest/rib/back related to cancer, rates as a 10, nurse states he is crying in pain. Home health did get a referral for palliative care but that takes week apparently. Pt is hoping to come in this week to finish palliative radiation to spine but can't come without pain meds. Please call Kerrie to verify we have sent in refill.[employer]. [facility] 10-03-2024 Miscellaneous Notes Formattin g of this note might be different from the original. Kerrie from with [facility] called to ask for refill on Colin's oxy. He is home from hospital now and has only a few tablets left so he is using sparingly. Has pain in chest/rib/back related to cancer, rates as a 10, nurse states he is crying in pain. Home health did get a referral for palliative care but that takes week apparently. Pt is hoping to come in this week to finish palliative radiation to spine but can't come without pain meds. Please call Kerrie to verify we have sent in refill.[employer]. documented in this encounter [facility] 10-02-2024 Telephone encount er Note Albertina, OT for [facility], called to report that patient is home with home health and is anxious to resume radiation when able. 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 Patient's blood pressures are low and he drops to 60's/40's when going from sitting to standing. Patient would like assurances that he he puts in the great effort to get her for treatment that he will be treated. I advised Albertina that I could not guarantee that if he comes in he will without fail be treated. PCP stopped Metoprolol today and pt is hopeful that he will be stable enough to come in on Wednesday for treatment. Dr Dunaway aware and willing if stable. HH will call with an update on . Therapists aware. [facility] 09-25-2024 Note [facility] 09-20-2024 Note [facility] 09-11-2024 Progress note Note Date/Time September 11, 2024 5:35 pm [facility] Medical Records Department [address] [place] [address] Progress Note 09/11/24 1733 MR#: [id number] Acct: [id number] Name: REY MEAD Rep #:[id number] : 1955 69 From: Wild Friend DO PCP: Dr. Angelica Saleh MD Status:ADM IN Location: [facility] [id number] Progress Note Hgb has been holding steady. Physical Exam Narrative Feeling better, no fever, no n/v/d Const alert and no apparent distress General Appearance: cooperative Resp normal air movement and clear to auscultation bilaterally Cardio regular rate and regular rhythm GI soft to palpation, non-tender and non-distended Skin no rashes or lesions noted Assessment & Plan Assessment/Plan (1) Weakness: (2) Anemia: (3) Septic shock: (4) Pneumonia: PLAN: Plan Patient is a 69-year-old male who presented to [facility] ED on 09/04/2024 with generalized weakness with a fall. Septic shock and acute hypoxia suspected secondary to pneumonia and COPD exacerbation, gram-positive bacteremia ? Court Reporter following. ID consulted. On home oxygen, requiring 4 L on admit to maintain appropriate saturations. Clinical concern for left upper lobe pneumonia. As per ID, he will be continuing medications at home Metastatic lung cancer with recent radiation therapy ? Follows with outpatient oncology and radiation oncology. See quick note for further details on cancer history. In short, patient was recently initiated on radiation therapy for metastases to T6 and T7. It appears he completed 3 of 5 rounds of radiation that were planned for this. Has history of resection of cancer in [facility] in 2016 and radiation therapy of cancer in [place] in 2023. Acute on chronic anemia ? Hemoglobin 7.2 on admit, dropped to 6.8 on hospital day 2. Hemoglobin in June was 11 and that appeared to be his baseline. In [facility] records, hemoglobin 9.7 on CBC from 08/21. Patient denies change in bowel movements. Ironstudies notably with high ferritin consistent with anemia of chronic disease. Transfuse 1 unit of blood with repeat hemoglobin 7.8 on morning of 09/06. EGD on09/06 was unremarkable. Will de-escalate to p.o. PPI daily. Continue to monitorCBC daily. Hgb is at 9.4. Capsule endo as an outpatient. Visit Charges Inpatient E&M: 25460 Subs Hosp L3 09/11/24 6612 <Electronically signed by Wild Gallagher DO> Wild Gallagher DO Cosigner Signature (if applicable): CC: ~ Signed [facility] Work Phone: 1(862) 757-639906-30-2025 Consult note Author Marina Garrido [facility] Note Date/Time September 11, 2024 2:03 pm [facility] Medical Records Department [address] [place] [address] Counseling Note - Pharmacy 09/11/24 1402 MR#: [id number] Acct: [id number] Name: REY MEAD Rep #:[id number] : 1955 69 From: Marina Garrido PCP: Dr. Angelica Saleh MD Status:ADM IN Location: [place] [id number] [place] Med Rec Counseling Pharmacy Service has performed discharge medication reconciliation and counseling for this patient. 1. CEPHALEXIN 500MG PO 4X/DAY X 7 DAYS 2. POTASSIUM CHLORIDE 20MEQ PO BIDCM 3. SENNA/DOCUSATE 2T PO BID 4. LORAZEPAM CHANGED TO 0.5MG PO TID PRN ANXIETY The patient's discharge medication list was reviewed for discrepancies and discrepancies were resolved. The patient was counseled on the following discharge medications and changes in medications for homegoing were reviewed. The Reason for Use, instructions for use, and potential side effects were reviewed for all new medications. The patient's questions regarding all of their medications were answered. The patient was able to verbally demonstrate an understanding of their dischargemedications. Medications at Discharge Home Medications albuterol sulfate 2.5 mg/3 mL (0.083 %) solution for nebulization 2.5 mg inhalation DAILY 01/08/23 albuterol sulfate 90 mcg/actuation aerosol inhaler 2 puff inhalation PRN PRN shortness of breath or wheezing 01/08/23 aspirin 81 mg tablet,delayed release 81 mg PO DAILY 01/08/23 atorvastatin 20 mg tablet 20 mg PO QHS 01/08/23 dapagliflozin propanediol 5 mg tablet (Farxiga) 5 mg PO DAILY 01/08/23 fluticasone fur. 100 mcg-umeclid 62.5 mcg-vilant 25 mcg inhalat.powder (Trelegy Ellipta) 1 inh inhalation DAILY 01/08/23 furosemide 40 mg tablet 40 mg PO DAILY 01/08/23 paroxetine HCl 10 mg tablet 10 mg PO DAILY 01/08/23 pregabalin 150 mg capsule 150 mg PO DAILY 01/08/23 roflumilast 250 mcg tablet 250 mcg PO DAILY 01/08/23 tamsulosin 0.4 mg capsule 0.4 mg PO Q24H 01/08/23 metformin 500 mg tablet,extended release 24hr (osmotic) 1,500 mg PO QHS 03/22/24 gabapentin 300 mg capsule 300 mg PO QHS 05/10/24 esomeprazole magnesium 40 mg capsule,delayed release 40 mg PO DAILY 09/04/24 insulin lispro protamine-lispro 100 unit/mL (75-25) subcutaneous pen (Humalog Mix 75-25 KwikPen) 15 unit subcut BIDCM 09/04/24 metoprolol succinate 25 mg tablet,extended release 24 hr 25 mg PO DAILY 09/04/24 oxycodone 5 mg tablet 5 - 10 mg PO Q6H PRN PRN pain 09/04/24 prednisone 5 mg tablet 15 mg PO DAILY 09/04/24 semaglutide 7 mg tablet (Rybelsus) 7 mg PO DAILY 09/04/24 vitamin B complex (Complex B-100 tablet,extended release) 1 tab PO DAILY 09/04/24 cephalexin 500 mg capsule 500 mg PO 4XD 1 week #28 caps 09/11/24 lorazepam 1 mg tablet 0.5 mg (1/2 x 1 mg) PO TID PRN anxiety #90 tabs 09/11/24 potassium chloride 20 mEq tablet,extended release(part/cryst) 40 meq (2 x 20 mEq) PO BID 7 days #28 tabs 09/11/24 sennosides 8.6 mg-docusate sodium 50 mg tablet (Stimulant Laxative Plus) 2 tab PO BID #0 tabs 09/11/24 09/11/24 1403 <Electronically signed by Marina Garrido> Date _ Marina Mariaigner Signature (if applicable): Date CC: ~ Signed [facility] Work Phone: 1(505) 415-459306-30-2025 Discharge summary Author Jose Zhang [facility] Note Date/Time September 11, 2024 1:10 pm [facility] Medical Records Department [address] [place] [address] Discharge Summary 09/11/24 0956 MR#: [id number] Acct: [id number] Name: REY MEAD Rep #:[id number] : 1955 69 From: Jose Eisenberg PCP: Dr. Angelica Saleh MD Status:ADM IN Location: [facility] [id number] Providers Date of Admission: 09/04/24 Date of Discharge: 09/11/24 Primary Care Physician: Dr. Angelica Saleh MD Consultations 09/04/24 16:03 Consult: Onc/Wound/agricultural research technologist Routine Comment: Reason for Consult:: left 5th toe discoloration/injury/wound 09/05/24 00:15 Consult: Court Reporter / Pulmonary Medicine Routine Consulting Provider: Intensivists/Pulmonary Med Reason for Consult: Vasopressor Support EMERGENT Consult: No Notified: Yes Date Notified: 09/05/24 Time Notified: 06:19 Method of Notification: Text 09/05/24 10:14 Consult: Gastroenterology Routine Consulting Provider: [facility] Reason for Consult: acute on chronic anemia, concern for UGIB EMERGENT Consult: No Notified: Yes Date Notified: 09/05/24 Time Notified: 10:27 Method of Notification: Answering Service 09/06/24 16:43 Consult: Infectious Disease Routine Consulting Provider: Romain Bazzi Reason for Consult: gram positive bacteremia EMERGENT Consult: No Notified: Yes Date Notified: 09/06/24 Time Notified: 07:43 Method of Notification: Text Reason For Visit: CONCERN FOR SEPSIS Diagnosis Discharge Diagnosis (1) Weakness: Status: Acute Code(s): R53.1 - Weakness (2) Anemia: Status: Acute Code(s): D64.9 - Anemia, unspecified (3) Septic shock: Status: Acute Code(s): A41.9 - Sepsis, unspecified organism; R65.21 - Severe sepsis with septic shock (4) Pneumonia: Status: Acute Code(s): J18.9 - Pneumonia, unspecified organism Plan Patient is a 69-year-old male who presented to [facility] ED on 09/04/2024 with generalized weakness with a fall. 1. Septic shock and acute hypoxia suspected secondary to pneumonia and COPD exacerbation, gram-positive bacteremia ? Court Reporter following. ID consulted. On home oxygen, requiring 4 L on admit to maintain appropriate saturations. Clinical concern for left upper lobe pneumonia as precipitating etiology. Patient ultimately developed fluid refractory hypotension requiring the initiation of vasopressor support to maintain hemodynamic stability. Blood cultures prelim positive for both Staph aureus and group G strep on 09/06. TTE ordered. Continue IV vancomycin and Zosyn for now. Initiated on IV steroids and scheduled DuoNebs on 09/05. Wean supplemental oxygen as able. Appreciate further ID recommendations. 09/07: ID follow-up reviewed. Septic shock suspected due to lung cancer versus trauma to left fifth toe complicated by dry gangrene. Repeat blood culture ordered. Narrow antibiotic to cefazolin and Flagyl. Septic shock resolved withno fever, off pressor. Urine culture shows no growth. 09/08: Patient has mild cough. Mucinex DM prescribed. ID follow-up reviewed. Pending. Blood culture repeated. Continue cefazolin/Flagyl. 09/09: Cough has improved. 09/10: Repeat blood culture on 09/07 shows no growth for more than 48 hours. Planfor discharge to SNF tomorrow 09/11: I reviewed follow-up and/or prescription for Keflex 500 mg 1 tablet 4 times daily for 7 days. ID follow-up and prescription for discharge antibiotics. Follow-up ID 2. Metastatic lung cancer with recent radiation therapy ? Follows with outpatient oncology and radiation oncology. See quick note for further details on cancer history. In short, patient was recently initiated on radiation therapy for metastases to T6 and T7. It appears he completed 3 of 5 rounds of radiation that were planned for this. Has history of resection of cancer in [place] in 2016 and radiation therapy of cancer in [place] in 2023. Case management following as below. Patient is certainly an appropriate palliative care candidate at this time and pending clinical course, may be appropriate for hospice care. 09/07: Follow-up outpatient with radiation oncology and medical oncology Electrolyte abnormalities and PVCs: Patient has severe hypokalemia despite on oral potassium. IV KCl 40 mEq ordered. Magnesium low normal 1.8 therefore magnesium chloride oral prescribed. Serum phosphorus normal therefore oral Neutra-Phos discontinued. 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 09/07: Patient had burning sensation with IV KCl yesterday therefore was changed to oral KCl 40 mEq 3 times daily. Magnesium chloride 120 mg twice daily. Repeat labs still shows hypokalemia 09/11: Hypokalemia is corrected. Patient discharged on potassium chloride prescription. Advised follow-up BMP in 1 week as an outpatient 3. Acute on chronic debility ? PT/OT/case management following. Patient lives at home alone and appears to have poor social support. Appreciate therapy and case management recommendations. Patient had right fifth toe bruised. X-ray showed no fracture, normal alignmentand prior fusion of 2nd and 3rd tarsometatarsal joint. Patient also has soreness/abrasion over right buttock. 4. Acute on chronic anemia ? Hemoglobin 7.2 on admit, dropped to 6.8 on hospital day 2. Hemoglobin in June was 11 and that appeared to be his baseline. In [facility] records, hemoglobin 9.7 on CBC from 08/21. Patient denies change in bowel movements. Ironstudies notably with high ferritin consistent with anemia of chronic disease. Transfuse 1 unit of blood with repeat hemoglobin 7.8 on morning of 09/06. EGD on09/06 was unremarkable.p.o. PPI daily. 09/07: H&H 8.6/27%. Platelet count 03/22/1978 K. Monitor CBC Patient had EGD on 09/06 and colonoscopy on 09/07/2025 EGD Impressions : - Normal esophagus. - No gross lesions in the entire stomach. - No gross lesions in the entire examined duodenum. - No specimens collected Colonoscopy Impression: - Preparation of the colon was fair. - Stool in the recto-sigmoid colon, in the sigmoid colon, in the transverse colon, in the ascending colon and in the cecum. - One 13 mm polyp in the rectum, removed with a hot snare. Resected and retrieved. - Diverticulosis in the recto-sigmoid colon and in the sigmoid colon. 5. Concern for malnutrition ? Nutrition following. BMI 17 on admit. However per nutrition, did not meet criteria for malnutrition. Supplements of Ensure clear and Ensure plus high-protein will be added to meals. Appreciate further nutrition recommendations. Chronic medical conditions: ? BPH with obstructive symptoms: Patient with significant urinary retention on admission relieved with straight cath. Will continue to monitor with bladder scans as needed and can consider Hollis catheterization if retaining. Continue home Flomax. ? History of CAD with CABG, hypertension, hyperlipidemia: Had CABG back in 2016. Hypotensive on admit as above. Continue home statin. Restarted home aspirin on 09/06. Holding home beta-yajaira and Lasix for now. ? Type 2 diabetes mellitus with diabetic neuropathy: Continue Humalog 75-25 mix at 15 units twice daily along with sliding scale insulin with meals, adjust as needed. Continue home gabapentin. ? Anxiety/depression: Continue home paroxetine and Ativan as needed. ? GERD: Treating with p.o. PPI daily as above. DVT prophylaxis: Lovenox CODE STATUS: Full code, verified Discharge medication reconciliation done. Discharge follow-up instructions completed. Discharge process discussed with the patient and all questions wereanswered to patient's satisfaction. Follow with PCP in 1 to 2 weeks Total time spent, exact 35 minutes on discharge meds reconciliation, examination, coordination of care with nurses and ancillary staff, review of imaging and blood test and discussion with the patient on follow-up instructions. Microbiology Past 72 Hours 09/04/24 11:00 Blood Culture (Wb) - Anticubital Left Blood Culture - Final Staphylococcus aureus 09/04/24 11:00 Blood Culture (Wb) - Anticubital Left Blood Culture - Final Streptococcus group G Staphylococcus aureus 09/06/24 10:30 Stool Stool Occult Blood (DORYS) - Final Occult Blood Positive 09/04/24 12:40 Urine, Clean Catch Urine Culture - Final Culture exhibits no growth. Laboratory Results 09/08/24 15:59: POC Glucose 209 H 09/08/24 22:29: POC Glucose 116 H 09/09/24 06:57: POC Glucose 109 H 09/09/24 10:16: POC Glucose 235 H 09/09/24 10:43: Sodium 139, Potassium 2.5 L*, Chloride 95 L, Carbon Dioxide 29.5, Anion Gap 14, BUN 13, Creatinine 0.93, Estim Creat Clear Calc 76.02, Est GFR (MDRD) Non-Af 90, BUN/Creatinine Ratio 13.8, Glucose 303 H, Calcium 8.3, Phosphorus 2.9, Magnesium 1.8 Clinical Impression(s) from Imaging Studies Chest X-Ray 09/04/24 11:02 IMPRESSION: Stable examination with evidence of hyperinflation and pulmonary hypertension. Stable nodular density and/or infiltrate in the left upper lobe. Reading Location: [id number] Pelvis X-Ray 09/04/24 11:06 IMPRESSION: No acute abnormality is seen. Dense atherosclerotic calcification of the abdominal aorta and iliac arteries. Reading Location: [facility] Toe X-Ray 09/04/24 11:06 IMPRESSION: No acute fracture is seen. Reading Location: [id number] Chest/Abdomen/Pelvis CT 09/04/24 14:32 IMPRESSION: Heterogeneous consolidation in the left upper lobe with a central necrosis and left hilar lymphadenopathy. A neoplastic process should be ruled out. Tiny nodules in the right lung as described. Left adrenal mass suggestive of possible metastasis. Reading Location: [id number] Medications at Discharge Home Medications albuterol sulfate 2.5 mg/3 mL (0.083 %) solution for nebulization 2.5 mg inhalation DAILY 01/08/23 albuterol sulfate 90 mcg/actuation aerosol inhaler 2 puff inhalation PRN PRN shortness of breath or wheezing 01/08/23 aspirin 81 mg tablet,delayed release 81 mg PO DAILY 01/08/23 atorvastatin 20 mg tablet 20 mg PO QHS 01/08/23 dapagliflozin propanediol 5 mg tablet (Farxiga) 5 mg PO DAILY 01/08/23 fluticasone fur. 100 mcg-umeclid 62.5 mcg-vilant 25 mcg inhalat.powder (Trelegy Ellipta) 1 inh inhalation DAILY 01/08/23 furosemide 40 mg tablet 40 mg PO DAILY 01/08/23 paroxetine HCl 10 mg tablet 10 mg PO DAILY 01/08/23 pregabalin 150 mg capsule 150 mg PO DAILY 01/08/23 roflumilast 250 mcg tablet 250 mcg PO DAILY 01/08/23 tamsulosin 0.4 mg capsule 0.4 mg PO Q24H 01/08/23 metformin 500 mg tablet,extended release 24hr (osmotic) 1,500 mg PO QHS 03/22/24 gabapentin 300 mg capsule 300 mg PO QHS 05/10/24 esomeprazole magnesium 40 mg capsule,delayed release 40 mg PO DAILY 09/04/24 insulin lispro protamine-lispro 100 unit/mL (75-25) subcutaneous pen (Humalog Mix 75-25 KwikPen) 15 unit subcut BIDCM 09/04/24 metoprolol succinate 25 mg tablet,extended release 24 hr 25 mg PO DAILY 09/04/24 oxycodone 5 mg tablet 5 - 10 mg PO Q6H PRN PRN pain 09/04/24 prednisone 5 mg tablet 15 mg PO DAILY 09/04/24 semaglutide 7 mg tablet (Rybelsus) 7 mg PO DAILY 09/04/24 vitamin B complex (Complex B-100 tablet,extended release) 1 tab PO DAILY 09/04/24 lorazepam 1 mg tablet 0.5 mg (1/2 x 1 mg) PO TID PRN anxiety #90 tabs 09/11/24 potassium chloride 20 mEq tablet,extended release(part/cryst) 40 meq (2 x 20 mEq) PO BID 7 days #28 tabs 09/11/24 sennosides 8.6 mg-docusate sodium 50 mg tablet (Stimulant Laxative Plus) 2 tab PO BID #0 tabs 09/11/24 Physical Exam Narrative Seen and examined. Patient on 3 L of oxygen. Cough is improved almost resolved No acute change. Recent blood culture on 09/07 shows no growth for 70 hours On 3 L of oxygen Physical exam General: Alert, Oriented x3, Cooperative. BMI 27.1 kg/m?. HEENT: Atraumatic, PERRLA, EOMI, Normocephalic. Oral: No Gingival or Mucosal Lesions/ Ulcerations Neck: Supple, No JVD, Negative Carotid Bruits Chest wall/Lungs: Air entry diminished in bilateral lungs. No crepitation. Cardiovascular: Regular rate and rhythm, Normal S1,S2, no murmur gallop Abdomen: Bowel Sounds Present, Soft, Non Tender, Non-Distended : No dysuria. No renal angle tenderness. No suprapubic tenderness. Extremities: Mild 1 edema, Capillary Refill Less than 3 Seconds Skin: Right pinky toe bruised. Sores/abrasion on the inner right buttock Musculoskeletal: No Tenderness to Palpation of Joints or Extremities Neurological: Cranial nerves II-XII grossly intact, DTR 2+/4. No acute focal neurological deficit. Psych/Mental Status: Normal Affect, Appropriate. Weight / BMI Weight Weight: 183 lb 3.266 oz Body Mass Index (BMI) 27.0 ABG / Lab / Microbiology Data 09/10/24 05:25 09/11/24 05:26 Laboratory: Laboratory Results - last 24 hr 09/10/24 16:22: POC Glucose 243 H 09/10/24 22:03: POC Glucose 160 H 09/11/24 05:26: Sodium 143, Potassium 3.9, Chloride 103, Carbon Dioxide 30.1, Anion Gap 10, BUN 15, Creatinine 0.78, Estim Creat Clear Calc 88.38, Est GFR (MDRD) Non-Af 97, BUN/Creatinine Ratio 19.0, Glucose 118 H, Calcium 8.8 09/11/24 11:21: POC Glucose 149 H Microbiology: Microbiology 09/08/24 12:09 Blood Culture (Wb) - Anticubital Left Blood Culture - Preliminary No growth in 48 hours. 09/07/24 10:30 Blood Culture (Wb) - Arm Left Blood Culture - Preliminary No growth in 48 hours. 09/04/24 11:00 Blood Culture (Wb) - Anticubital Left Blood Culture - Final Staphylococcus aureus 09/04/24 11:00 Blood Culture (Wb) - Anticubital Left Blood Culture - Final Streptococcus group G Staphylococcus aureus 09/06/24 10:30 Stool Stool Occult Blood (DORYS) - Final Occult Blood Positive 09/04/24 12:40 Urine, Clean Catch Urine Culture - Final Culture exhibits no growth. 09/05/24 06:33 Sputum, Expectorated/Coughed Gram Stain - Final 09/05/24 06:33 Sputum, Expectorated/Coughed Respiratory Culture - Final 09/04/24 19:26 Stool Enteric Bacteriology - Final 09/04/24 19:26 Stool Clostridioides difficile (PCR) - Final 09/04/24 11:06 Mucosa - Nose SARS-CoV-2, Influenza & RSV (PCR) - Final D/C Instructions DC O2, CPAP, BIPAP Needs Home O2 Discharge instructions: Yes Type of respiratory needs?: Oxygen Oxygen frequency: Continuous Continuous oxygen liters per minute: 3 DC home with Oxygen: Yes Home O2 MD Review: I have reviewed the oxygen testing, and the patient qualifies for home oxygen equipment and portability. The patient is mobile in the home and the community. Meaningful Use Info Meaningful Use Meaningful Use Diagnoses (Choose all that apply): None applicable Ischemic Stroke Statin Dosing Therapy Reference: STATIN DOSE THERAPY REFERENCE: * Patients > 75 years receive moderate or high dose statin therapy. * Patients 75 years or YOUNGER should receive HIGH intensity statin dose unless contraindicated. You will be required to document reason for non-treatment if statin daily dose does not meet guidelines. HIGH DOSE STATIN THERAPY DAILY Atorvastatin > than or = to 40 mg Rosuvastatin > than or = to 20 mg Amlodipine + Atorvastatin > than or = to 2.5/40 mg Ezetimibe + Simvastatin 10/80 mg Simvastatin 80mg Discharge Plan Admission Admit Date/Time: 09/04/24 14:44 Primary Reason for Your Visit: Septic shock due to MSSA and strep bacteremia Attending Provider: Jose Zhang Primary Care Provider: Angelica Saleh Consulting Providers: Serina Juan; Stanton Ortega; Romain Bazzi Instructions Additional Instructions / Restrictions: Advised BMP in 1 week Discharge Orders/Prescriptions Prescriptions: New sennosides-docusate sodium [Stimulant Laxative Plus] 8.6-50 mg Tablet 2 tab PO BID Qty: 0 0RF potassium chloride 20 mEq Tablet,Er Particles/Crystals 40 meq PO BID 7 Days Qty: 28 0RF Continued gabapentin 300 mg capsule 300 mg PO QHS furosemide 40 mg tablet 40 mg PO DAILY paroxetine HCl 10 mg tablet 10 mg PO DAILY pregabalin 150 mg capsule 150 mg PO DAILY roflumilast 250 mcg tablet 250 mcg PO DAILY tamsulosin 0.4 mg capsule 0.4 mg PO Q24H albuterol sulfate 2.5 mg /3 mL (0.083 %) solution for nebulization 2.5 mg inhalation DAILY albuterol sulfate 90 mcg/actuation HFA aerosol inhaler 2 puff INHALATION PRN PRN (Reason: shortness of breath or wheezing) aspirin 81 mg tablet,delayed release (DR/EC) 81 mg PO DAILY atorvastatin 20 mg tablet 20 mg PO QHS dapagliflozin propanediol [Farxiga] 5 mg tablet 5 mg PO DAILY Trelegy Ellipta 100-62.5-25 mcg blister with device 1 inh INHALATION DAILY metformin 500 mg tablet extended release 24hr 1,500 mg PO QHS Patient Comments: TAKE 2 tabs in the AM and One tab in PM Rx Instructions: TAKE 2 tabs in the AM and One tab in PM esomeprazole magnesium 40 mg capsule,delayed release(DR/EC) 40 mg PO DAILY metoprolol succinate 25 mg tablet extended release 24 hr 25 mg PO DAILY oxycodone 5 mg tablet 5 - 10 mg PO Q6H PRN PRN (Reason: pain) insulin lispro protamin-lispro [Humalog Mix 75-25 KwikPen] 100 unit/mL (75- 25)insulin pen 15 unit subcut BIDCM Rybelsus 7 mg tablet 7 mg PO DAILY prednisone 5 mg tablet 15 mg PO DAILY Complex B-100 Tablet Extended Release 1 tab PO DAILY Changed lorazepam 1 mg tablet 0.5 mg PO TID PRN (Reason: anxiety) Qty: 90 0RF Referrals / Follow Up: Angelica Saleh MD [Primary Care Provider] - Romain Bazzi MD [Med Staff - Active Staff] - Within 1 Month Disposition Disposition (needs filled in before D/C Order can be placed): Home Health Service Charges/Coding Visit Charges Inpatient E&M: 95014 Disch Hosp >30min 09/11/24 1256 <Electronically signed by Jose Zhang MD> Cosigner Signature (if applicable): CC: Dr. Angelica Saleh MD; Dr. Jose Zhang MD~ Signed ADDENDUM by Dr. Jose Zhang MD on 09/11/24 at 1310 Addendum I have reviewed the oxygen testing, and this patient qualifies for the home equipment and portability. The patient is mobile in the home and the community. Prescription for Keflex 500 mg 4 times daily for 1 week sent to [facility] retail pharmacy. 09/11/24 1310<Electronically signed by Jose Zhang MD> Cosigner Signature (if applicable): cc: Dr. Angelica Saleh MD; Dr. Jose Zhang MD ~* Signed [facility] Work Phone: 1(558) 682-565506-30-2025 Discharge summary Author Jose Zhang [facility] Note Date/Time September 11, 2024 12:5 6pm [facility] Medical Records Department [address] [place] [address] Instructions for Home/Discharge Instructions 09/11/24 0947 MR#: [id number] Acct: [id number] Name: REY MEAD Rep #:[id number] : 1955 69 From: Jose Eisenberg PCP: Dr. Angelica Saleh MD Status:ADM IN Discharge Instructions DC O2, CPAP, BIPAP needs Home O2 Discharge instructions: Yes Type of respiratory needs?: Oxygen Oxygen frequency: Continuous Continuous oxygen liters per minute: 3 Follow Up Care Test Results: Test results from this visit will be discussed in further detail at your follow- up appointment, if applicable. Discharge Plan Admission Admit Date/Time: 09/04/24 14:44 Primary Reason for Your Visit: Septic shock due to MSSA and strep bacteremia Attending Provider: Jose Zhang Primary Care Provider: Angelica Saleh Consulting Providers: Serina Juan; Stanton Ortega; Romain Bazzi Instructions Additional Instructions / Restrictions: Advised BMP in 1 week Discharge Orders/Prescriptions Prescriptions: New sennosides-docusate sodium [Stimulant Laxative Plus] 8.6-50 mg Tablet 2 tab PO BID Qty: 0 0RF potassium chloride 20 mEq Tablet,Er Particles/Crystals 40 meq PO BID 7 Days Qty: 28 0RF Continued gabapentin 300 mg capsule 300 mg PO QHS furosemide 40 mg tablet 40 mg PO DAILY paroxetine HCl 10 mg tablet 10 mg PO DAILY pregabalin 150 mg capsule 150 mg PO DAILY roflumilast 250 mcg tablet 250 mcg PO DAILY tamsulosin 0.4 mg capsule 0.4 mg PO Q24H albuterol sulfate 2.5 mg /3 mL (0.083 %) solution for nebulization 2.5 mg inhalation DAILY albuterol sulfate 90 mcg/actuation HFA aerosol inhaler 2 puff INHALATION PRN PRN (Reason: shortness of breath or wheezing) aspirin 81 mg tablet,delayed release (DR/EC) 81 mg PO DAILY atorvastatin 20 mg tablet 20 mg PO QHS dapagliflozin propanediol [Farxiga] 5 mg tablet 5 mg PO DAILY Trelegy Ellipta 100-62.5-25 mcg blister with device 1 inh INHALATION DAILY metformin 500 mg tablet extended release 24hr 1,500 mg PO QHS Patient Comments: TAKE 2 tabs in the AM and One tab in PM Rx Instructions: TAKE 2 tabs in the AM and One tab in PM esomeprazole magnesium 40 mg capsule,delayed release(DR/EC) 40 mg PO DAILY metoprolol succinate 25 mg tablet extended release 24 hr 25 mg PO DAILY oxycodone 5 mg tablet 5 - 10 mg PO Q6H PRN PRN (Reason: pain) insulin lispro protamin-lispro [Humalog Mix 75-25 KwikPen] 100 unit/mL (75- 25)insulin pen 15 unit subcut BIDCM Rybelsus 7 mg tablet 7 mg PO DAILY prednisone 5 mg tablet 15 mg PO DAILY Complex B-100 Tablet Extended Release 1 tab PO DAILY Changed lorazepam 1 mg tablet 0.5 mg PO TID PRN (Reason: anxiety) Qty: 90 0RF Referrals / Follow Up: Angelica Saleh MD [Primary Care Provider] - Romain Bazzi MD [Med Staff - Active Staff] - Within 1 Month Disposition Disposition (needs filled in before D/C Order can be placed): Home Health Service 09/11/24 0955<Electronically signed by Jose Zhang MD>Jose Zhang MD CC: Dr. Stanton Ortega DO; Dr. Angelica Saleh MD; Dr. Serina Juan MD; Dr. Romain Bazzi MD ~ Signed ADDENDUM by Dr. Jose Zhang MD on 09/11/24 at 1256 ID wrote prescription for Keflex 500 mg 4 times daily for 7 days 09/11/24 1256<Electronically signed by Jose Zhang MD>Jose Zhang MD cc: Dr. Stanton Ortega DO; Dr. Angelica Saleh MD; Dr. Serina Juan MD; Dr. Romain Bazzi MD ~* Signed [facility] Work Phone: 1(376) 625-898006-30-2025 Progress note Author Margarito Nunes [facility] Note Date/Time September 11, 2024 12:4 3pm [facility] Medical Records Department [address] [place] [address] Progress Note - Infect Disease 09/11/24 1241 MR#: [id number] Acct: [id number] Name: REY MEAD Rep #:[id number] : 1955 69 From: Margarito Nunes MD PCP: Dr. Angelica Saleh MD Status:ADM IN [facility] ID ID: Route of nutrition/ use of supplements: [] Nutritional Intake: [] IV Site: [] Hollis Catheter: [] Patient is alert overall clinically stable. In overall good spirits. No fevers. Microbiology data reviewed. Antimicrobial regimen also reviewed. No cardiopulmonary distress. Transthoracic echocardiogram no valvular pathology noted. Alert responsive does not appear toxic lungs are clear heart exam S1-S2 no murmurs appreciated abdomen soft nontender. Vital signs reviewed remains euthermic. Left fifth toe necrotic. Assessment & Plan Assessment/Plan (1) MSSA bacteremia: PLAN: Clinically improving on parenteral antibiotic therapy. At this point we will transition to cephalexin 500 mg 4 times a day for 7 more days. I did write that prescription. 09/11/24 1243 <Electronically signed by Margarito Nunes MD> Cosigner Signature (if applicable): CC: ~ Signed [facility] Work Phone: 1(938) 690-951606-30-2025 Hospital Discharge instructionsAdditional Instructions Advised BMP in 1 week ID wrote prescription for Keflex 500 mg 4 times daily for 7 days Date of Discharge: 09/11/24[facility] Work Phone: 1(445) 921-828106-30-2025 [facility]06-29-2025 Progress note Author Jose Zhang [facility] Note Date/Time September 10, 2024 1:02 pm [facility] Medical Records Department [address] [place] [address] Progress Note - Hospitalist 09/10/24 1259 MR#: [id number] Acct: [id number] Name: REY MEAD Rep #:[id number] : 1955 69 From: Jose Eisenberg PCP: Dr. Angelica Saleh MD Status:ADM IN Location: [place] [address] Reason for Visit Reason for Visit: Diagnoses Sepsis, unspecified organism (09/04/24) Methicillin susceptible Staphylococcus aureus infection as the cause of diseasesclassified elsewhere (09/04/24) Anemia, unspecified (09/04/24) Hypo-osmolality and hyponatremia (09/04/24) Hypokalemia (09/04/24) Pneumonia, unspecified organism (09/04/24) Chronic obstructive pulmonary disease, unspecified (09/04/24) Weakness (09/04/24) Severe sepsis with septic shock (09/04/24) Bacteremia (09/04/24) Objective Data Objective Data Vital Signs: Vital Signs Temp Pulse Resp BP Pulse Ox O2 Del Method O2 Flow Rate 97.6 F L 80 18 115/70 95 Nasal Cannula 3 09/10/24 08:05 09/10/24 10:36 09/10/24 10:36 09/10/24 08:05 09/10/24 08:05 09/10/24 10:00 09/10/24 10:00 Oxygen Flow Rate (L/min) 3 Oxygen Delivery Method Nasal Cannula Weight: 183 lb 13.848 oz Body Mass Index (BMI) 27.1 Intake & Output: Intake and Output for Last 24 Hours 09/08/24 09/09/24 09/10/24 23:59 23:59 23:59 Intake Total 1440 / 1440 1453.33 / 1573.33 230 / 230 Output Total 2675 / 2675 1900 / 2400 1350 / 1350 Balance -1235 / -1235 -446.67 / -826.67 -1120 / -1120 Lab / Micro Data 09/10/24 05:25 09/10/24 05:25 Labs: Laboratory Results - last 24 hr 09/09/24 10:43: Phosphorus 2.9, Magnesium 1.8 09/09/24 16:12: POC Glucose 207 H 09/09/24 21:32: POC Glucose 134 H 09/10/24 05:25: WBC 17.5 H, RBC 3.41 L, Hgb 9.4 L, Hct 30.7 L, MCV 90.0, MCH 27.6, MCHC 30.6 L, RDW Std Deviation 55.9 H, RDW Coeff of Jaquan 17.2 H, Plt Count 269, MPV 9.3, Immature Gran % (Auto) 1.400 H, Neut % (Auto) 89.1 H, Lymph % (Auto) 6.6 L, Me[place] % (Auto) 2.8, Eos % (Auto) 0.0, Baso % (Auto) 0.1, Absolute Neuts (auto) 15.6 H, Absolute Lymphs (auto) 1.15, Nucleated RBC % 0, Sodium 143,Potassium 2.9 L, Chloride 100, Carbon Dioxide 31.1, Anion Gap 12, BUN 13, Creatinine 0.91, Estim Creat Clear Calc 77.69, Est GFR (MDRD) Non-Af 92, BUN/Creatinine Ratio 13.8, Glucose 115 H, Calcium 8.7 09/10/24 08:12: POC Glucose 124 H 09/10/24 11:58: POC Glucose 142 H Micro: Microbiology 09/07/24 10:30 Blood Culture (Wb) - Arm Left Blood Culture - Preliminary No growth in 48 hours. 09/04/24 11:00 Blood Culture (Wb) - Anticubital Left Blood Culture - Final Staphylococcus aureus 09/04/24 11:00 Blood Culture (Wb) - Anticubital Left Blood Culture - Final Streptococcus group G Staphylococcus aureus 09/06/24 10:30 Stool Stool Occult Blood (DORYS) - Final Occult Blood Positive 09/04/24 12:40 Urine, Clean Catch Urine Culture - Final Culture exhibits no growth. 09/05/24 06:33 Sputum, Expectorated/Coughed Gram Stain - Final 09/05/24 06:33 Sputum, Expectorated/Coughed Respiratory Culture - Final 09/04/24 19:26 Stool Enteric Bacteriology - Final 09/04/24 19:26 Stool Clostridioides difficile (PCR) - Final 09/04/24 11:06 Mucosa - Nose SARS-CoV-2, Influenza & RSV (PCR) - Final Physical Exam Narrative Seen and examined. No acute change. Patient is stated that his shortness of breath is better Cough improved 2. Recent blood culture on 09/07 shows no growth for 48 hours On 3 L of oxygen Physical exam General: Alert, Oriented x3, Cooperative. BMI 27.1 kg/m?. HEENT: Atraumatic, PERRLA, EOMI, Normocephalic. Oral: No Gingival or Mucosal Lesions/ Ulcerations Neck: Supple, No JVD, Negative Carotid Bruits Chest wall/Lungs: Air entry diminished in bilateral lungs. No crepitation. Cardiovascular: Regular rate and rhythm, Normal S1,S2, no murmur gallop Abdomen: Bowel Sounds Present, Soft, Non Tender, Non-Distended : No dysuria. No renal angle tenderness. No suprapubic tenderness. Extremities: Mild 1 edema, Capillary Refill Less than 3 Seconds Skin: No rashes, No breakdown Musculoskeletal: No Tenderness to Palpation of Joints or Extremities Neurological: Cranial nerves II-XII grossly intact, DTR 2+/4. No acute focal neurological deficit. Psych/Mental Status: Normal Affect, Appropriate. Assessment & Plan Assessment/Plan (1) Weakness: (2) Anemia: (3) Septic shock: (4) Pneumonia: PLAN: Plan Patient is a 69-year-old male who presented to [facility] ED on 09/04/2024 with generalized weakness with a fall. 1. Septic shock and acute hypoxia suspected secondary to pneumonia and COPD exacerbation, gram-positive bacteremia ? Court Reporter following. ID consulted. On home oxygen, requiring 4 L on admit to maintain appropriate saturations. Clinical concern for left upper lobe pneumonia as precipitating etiology. Patient ultimately developed fluid refractory hypotension requiring the initiation of vasopressor support to maintain hemodynamic stability. Blood cultures prelim positive for both Staph aureus and group G strep on 09/06. TTE ordered. Continue IV vancomycin and Zosyn for now. Initiated on IV steroids and scheduled DuoNebs on 09/05. Wean supplemental oxygen as able. Appreciate further ID recommendations. 09/07: ID follow-up reviewed. Septic shock suspected due to lung cancer versus trauma to left fifth toe complicated by dry gangrene. Repeat blood culture ordered. Narrow antibiotic to cefazolin and Flagyl. Septic shock resolved withno fever, off pressor. Urine culture shows no growth. 09/08: Patient has mild cough. Mucinex DM prescribed. ID follow-up reviewed. Pending. Blood culture repeated. Continue cefazolin/Flagyl. 09/09: Cough has improved. 09/10: Repeat blood culture on 09/07 shows no growth for more than 48 hours. Planfor discharge to SNF tomorrow 2. Metastatic lung cancer with recent radiation therapy ? Follows with outpatient oncology and radiation oncology. See quick note for further details on cancer history. In short, patient was recently initiated on radiation therapy for metastases to T6 and T7. It appears he completed 3 of 5 rounds of radiation that were planned for this. Has history of resection of cancer in [place] in 2016 and radiation therapy of cancer in [place] in 2023. Case management following as below. Patient is certainly an appropriate palliative care candidate at this time and pending clinical course, may be appropriate for hospice care. 09/07: Follow-up outpatient with radiation oncology and medical oncology Electrolyte abnormalities and PVCs: Patient has severe hypokalemia despite on oral potassium. IV KCl 40 mEq ordered. Magnesium low normal 1.8 therefore magnesium chloride oral prescribed. Serum phosphorus normal therefore oral Neutra-Phos discontinued. 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 09/07: Patient had burning sensation with IV KCl yesterday therefore was changed to oral KCl 40 mEq 3 times daily. Magnesium chloride 120 mg twice daily. Repeat labs still shows hypokalemia 3. Acute on chronic debility ? PT/OT/case management following. Patient lives at home alone and appears to have poor social support. Appreciate therapy and case management recommendations. 4. Acute on chronic anemia ? Hemoglobin 7.2 on admit, dropped to 6.8 on hospital day 2. Hemoglobin in June was 11 and that appeared to be his baseline. In [facility] records, hemoglobin 9.7 on CBC from 08/21. Patient denies change in bowel movements. Ironstudies notably with high ferritin consistent with anemia of chronic disease. Transfuse 1 unit of blood with repeat hemoglobin 7.8 on morning of 09/06. EGD on09/06 was unremarkable.p.o. PPI daily. 09/07: H&H 8.6/27%. Platelet count 03/22/1978 K. Monitor CBC 5. Concern for malnutrition ? Nutrition following. BMI 17 on admit. However per nutrition, did not meet criteria for malnutrition. Supplements of Ensure clear and Ensure plus high-protein will be added to meals. Appreciate further nutrition recommendations. Chronic medical conditions: ? BPH with obstructive symptoms: Patient with significant urinary retention on admission relieved with straight cath. Will continue to monitor with bladder scans as needed and can consider Hollis catheterization if retaining. Continue home Flomax. ? History of CAD with CABG, hypertension, hyperlipidemia: Had CABG back in 2016. Hypotensive on admit as above. Continue home statin. Restarted home aspirin on 09/06. Holding home beta-yajaira and Lasix for now. ? Type 2 diabetes mellitus with diabetic neuropathy: Continue Humalog 75-25 mix at 15 units twice daily along with sliding scale insulin with meals, adjust as needed. Continue home gabapentin. ? Anxiety/depression: Continue home paroxetine and Ativan as needed. ? GERD: Treating with p.o. PPI daily as above. DVT prophylaxis: Lovenox CODE STATUS: Full code, verified Expected disposition: TBD Microbiology Past 72 Hours 09/04/24 11:00 Blood Culture (Wb) - Anticubital Left Blood Culture - Final Staphylococcus aureus 09/04/24 11:00 Blood Culture (Wb) - Anticubital Left Blood Culture - Final Streptococcus group G Staphylococcus aureus 09/06/24 10:30 Stool Stool Occult Blood (DORYS) - Final Occult Blood Positive 09/04/24 12:40 Urine, Clean Catch Urine Culture - Final Culture exhibits no growth. Laboratory Results 09/08/24 15:59: POC Glucose 209 H 09/08/24 22:29: POC Glucose 116 H 09/09/24 06:57: POC Glucose 109 H 09/09/24 10:16: POC Glucose 235 H 09/09/24 10:43: Sodium 139, Potassium 2.5 L*, Chloride 95 L, Carbon Dioxide 29.5, Anion Gap 14, BUN 13, Creatinine 0.93, Estim Creat Clear Calc 76.02, Est GFR (MDRD) Non-Af 90, BUN/Creatinine Ratio 13.8, Glucose 303 H, Calcium 8.3, Phosphorus 2.9, Magnesium 1.8 Clinical Impression(s) from Imaging Studies Chest X-Ray 09/04/24 11:02 IMPRESSION: Stable examination with evidence of hyperinflation and pulmonary hypertension. Stable nodular density and/or infiltrate in the left upper lobe. Reading Location: [id number] Pelvis X-Ray 09/04/24 11:06 IMPRESSION: No acute abnormality is seen. Dense atherosclerotic calcification of the abdominal aorta and iliac arteries. Reading Location: [id number] Toe X-Ray 09/04/24 11:06 IMPRESSION: No acute fracture is seen. Reading Location: [facility] Chest/Abdomen/Pelvis CT 09/04/24 14:32 IMPRESSION: Heterogeneous consolidation in the left upper lobe with a central necrosis and left hilar lymphadenopathy. A neoplastic process should be ruled out. Tiny nodules in the right lung as described. Left adrenal mass suggestive of possible metastasis. Reading Location: [id number] Charges/Coding Visit Charges Inpatient E&M: 69221 Subs Hosp L2 09/10/24 1302 <Electronically signed by Jose Zhang MD> Cosigner Signature (if applicable): CC: ~ Signed [facility] Work Phone: [phone]) [phone] Progress note Author Jose Zhang [facility] Note Date/Time September 09, 2024 2:01 pm [facility] Medical Records Department [address] [place] [address] Progress Note - Hospitalist 09/09/24 1358 MR#: [id number] Acct: [id number] Name: REY MEAD Rep #:[id number] : 1955 69 From: Jose Eisenberg PCP: Dr. Angelica Saleh MD Status:ADM IN Location: [place] [address] Reason for Visit Reason for Visit: Diagnoses Sepsis, unspecified organism (09/04/24) Methicillin susceptible Staphylococcus aureus infection as the cause of diseasesclassified elsewhere (09/04/24) Anemia, unspecified (09/04/24) Hypo-osmolality and hyponatremia (09/04/24) Hypokalemia (09/04/24) Pneumonia, unspecified organism (09/04/24) Chronic obstructive pulmonary disease, unspecified (09/04/24) Weakness (09/04/24) Severe sepsis with septic shock (09/04/24) Bacteremia (09/04/24) Objective Data Objective Data Vital Signs: Vital Signs Temp Pulse Resp BP Pulse Ox O2 Del Method O2 Flow Rate 97.4 F L 95 18 110/57 L 97 Nasal Cannula 3 09/09/24 09:55 09/09/24 11:16 09/09/24 11:16 09/09/24 09:55 09/09/24 09:55 09/09/24 09:55 09/09/24 11:51 Oxygen Flow Rate (L/min) 3 Oxygen Delivery Method Nasal Cannula Weight: 183 lb 10.321 oz Body Mass Index (BMI) 27.1 Intake & Output: Intake and Output for Last 24 Hours 09/07/24 09/08/24 09/09/24 23:59 23:59 23:59 Intake Total 410 / 410 1440 / 1440 110 / 110 Output Total 829 / 1504 2675 / 2675 1450 / 1450 Balance -419 / -1094 -1235 / -1235 -1340 / -1340 Lab / Micro Data 09/07/24 05:36 09/09/24 10:43 Labs: Laboratory Results - last 24 hr 09/08/24 15:59: POC Glucose 209 H 09/08/24 22:29: POC Glucose 116 H 09/09/24 06:57: POC Glucose 109 H 09/09/24 10:16: POC Glucose 235 H 09/09/24 10:43: Sodium 139, Potassium 2.5 L*, Chloride 95 L, Carbon Dioxide 29.5, Anion Gap 14, BUN 13, Creatinine 0.93, Estim Creat Clear Calc 76.02, Est GFR (MDRD) Non-Af 90, BUN/Creatinine Ratio 13.8, Glucose 303 H, Calcium 8.3, Phosphorus 2.9, Magnesium 1.8 Micro: Microbiology 09/04/24 11:00 Blood Culture (Wb) - Anticubital Left Blood Culture - Final Staphylococcus aureus 09/04/24 11:00 Blood Culture (Wb) - Anticubital Left Blood Culture - Final Streptococcus group G Staphylococcus aureus 09/06/24 10:30 Stool Stool Occult Blood (DORYS) - Final Occult Blood Positive 09/04/24 12:40 Urine, Clean Catch Urine Culture - Final Culture exhibits no growth. 09/05/24 06:33 Sputum, Expectorated/Coughed Gram Stain - Final 09/05/24 06:33 Sputum, Expectorated/Coughed Respiratory Culture - Final 09/04/24 19:26 Stool Enteric Bacteriology - Final 09/04/24 19:26 Stool Clostridioides difficile (PCR) - Final 09/04/24 11:06 Mucosa - Nose SARS-CoV-2, Influenza & RSV (PCR) - Final Physical Exam Narrative Seen and examined. No acute change. Patient is stated that his shortness of breath is better Mild chronic cough. Recent blood culture pending On 3 L of oxygen Physical exam General: Alert, Oriented x3, Cooperative. BMI 27.1 kg/m?. HEENT: Atraumatic, PERRLA, EOMI, Normocephalic. Oral: No Gingival or Mucosal Lesions/ Ulcerations Neck: Supple, No JVD, Negative Carotid Bruits Chest wall/Lungs: Air entry diminished in bilateral lungs. Mild right lung base crepitation otherwise clear Cardiovascular: Regular rate and rhythm, Normal S1,S2, no murmur gallop Abdomen: Bowel Sounds Present, Soft, Non Tender, Non-Distended : No dysuria. No renal angle tenderness. No suprapubic tenderness. Extremities: Mild 1 edema, Capillary Refill Less than 3 Seconds Skin: No rashes, No breakdown Musculoskeletal: No Tenderness to Palpation of Joints or Extremities Neurological: Cranial nerves II-XII grossly intact, DTR 2+/4. No acute focal neurological deficit. Psych/Mental Status: Normal Affect, Appropriate. Assessment & Plan Assessment/Plan (1) Weakness: (2) Anemia: (3) Septic shock: (4) Pneumonia: PLAN: Plan Patient is a 69-year-old male who presented to [facility] ED on 09/04/2024 with generalized weakness with a fall. 1. Septic shock and acute hypoxia suspected secondary to pneumonia and COPD exacerbation, gram-positive bacteremia ? Court Reporter following. ID consulted. On home oxygen, requiring 4 L on admit to maintain appropriate saturations. Clinical concern for left upper lobe pneumonia as precipitating etiology. Patient ultimately developed fluid refractory hypotension requiring the initiation of vasopressor support to maintain hemodynamic stability. Blood cultures prelim positive for both Staph aureus and group G strep on 09/06. TTE ordered. Continue IV vancomycin and Zosyn for now. Initiated on IV steroids and scheduled DuoNebs on 09/05. Wean supplemental oxygen as able. Appreciate further ID recommendations. 09/07: ID follow-up reviewed. Septic shock suspected due to lung cancer versus trauma to left fifth toe complicated by dry gangrene. Repeat blood culture ordered. Narrow antibiotic to cefazolin and Flagyl. Septic shock resolved withno fever, off pressor. Urine culture shows no growth. 09/08: Patient has mild cough. Mucinex DM prescribed. ID follow-up reviewed. Pending. Blood culture repeated. Continue cefazolin/Flagyl. 09/09: Cough has improved. 2. Metastatic lung cancer with recent radiation therapy ? Follows with outpatient oncology and radiation oncology. See quick note for further details on cancer history. In short, patient was recently initiated on radiation therapy for metastases to T6 and T7. It appears he completed 3 of 5 rounds of radiation that were planned for this. Has history of resection of cancer in [place] in 2016 and radiation therapy of cancer in [place] in 2023. Case management following as below. Patient is certainly an appropriate palliative care candidate at this time and pending clinical course, may be appropriate for hospice care. 09/07: Follow-up outpatient with radiation oncology and medical oncology Electrolyte abnormalities and PVCs: Patient has severe hypokalemia despite on oral potassium. IV KCl 40 mEq ordered. Magnesium low normal 1.8 therefore magnesium chloride oral prescribed. Serum phosphorus normal therefore oral Neutra-Phos discontinued. 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 3. Acute on chronic debility ? PT/OT/case management following. Patient lives at home alone and appears to have poor social support. Appreciate therapy and case management recommendations. 4. Acute on chronic anemia ? Hemoglobin 7.2 on admit, dropped to 6.8 on hospital day 2. Hemoglobin in June was 11 and that appeared to be his baseline. In [facility] records, hemoglobin 9.7 on CBC from 08/21. Patient denies change in bowel movements. Ironstudies notably with high ferritin consistent with anemia of chronic disease. Transfuse 1 unit of blood with repeat hemoglobin 7.8 on morning of 09/06. EGD on09/06 was unremarkable.p.o. PPI daily. 09/07: H&H 8.6/27%. Platelet count 03/22/1978 K. Monitor CBC 5. Concern for malnutrition ? Nutrition following. BMI 17 on admit. However per nutrition, did not meet criteria for malnutrition. Supplements of Ensure clear and Ensure plus high-protein will be added to meals. Appreciate further nutrition recommendations. Chronic medical conditions: ? BPH with obstructive symptoms: Patient with significant urinary retention on admission relieved with straight cath. Will continue to monitor with bladder scans as needed and can consider Hollis catheterization if retaining. Continue home Flomax. ? History of CAD with CABG, hypertension, hyperlipidemia: Had CABG back in 2016. Hypotensive on admit as above. Continue home statin. Restarted home aspirin on 09/06. Holding home beta-yajaira and Lasix for now. ? Type 2 diabetes mellitus with diabetic neuropathy: Continue Humalog 75-25 mix at 15 units twice daily along with sliding scale insulin with meals, adjust as needed. Continue home gabapentin. ? Anxiety/depression: Continue home paroxetine and Ativan as needed. ? GERD: Treating with p.o. PPI daily as above. DVT prophylaxis: Lovenox CODE STATUS: Full code, verified Expected disposition: TBD Microbiology Past 72 Hours 09/04/24 11:00 Blood Culture (Wb) - Anticubital Left Blood Culture - Final Staphylococcus aureus 09/04/24 11:00 Blood Culture (Wb) - Anticubital Left Blood Culture - Final Streptococcus group G Staphylococcus aureus 09/06/24 10:30 Stool Stool Occult Blood (DORYS) - Final Occult Blood Positive 09/04/24 12:40 Urine, Clean Catch Urine Culture - Final Culture exhibits no growth. Laboratory Results 09/08/24 15:59: POC Glucose 209 H 09/08/24 22:29: POC Glucose 116 H 09/09/24 06:57: POC Glucose 109 H 09/09/24 10:16: POC Glucose 235 H 09/09/24 10:43: Sodium 139, Potassium 2.5 L*, Chloride 95 L, Carbon Dioxide 29.5, Anion Gap 14, BUN 13, Creatinine 0.93, Estim Creat Clear Calc 76.02, Est GFR (MDRD) Non-Af 90, BUN/Creatinine Ratio 13.8, Glucose 303 H, Calcium 8.3, Phosphorus 2.9, Magnesium 1.8 Clinical Impression(s) from Imaging Studies Chest X-Ray 09/04/24 11:02 IMPRESSION: Stable examination with evidence of hyperinflation and pulmonary hypertension. Stable nodular density and/or infiltrate in the left upper lobe. Reading Location: [id number] Pelvis X-Ray 09/04/24 11:06 IMPRESSION: No acute abnormality is seen. Dense atherosclerotic calcification of the abdominal aorta and iliac arteries. Reading Location: [id number] Toe X-Ray 09/04/24 11:06 IMPRESSION: No acute fracture is seen. Reading Location: [facility] Chest/Abdomen/Pelvis CT 09/04/24 14:32 IMPRESSION: Heterogeneous consolidation in the left upper lobe with a central necrosis and left hilar lymphadenopathy. A neoplastic process should be ruled out. Tiny nodules in the right lung as described. Left adrenal mass suggestive of possible metastasis. Reading Location: [id number] Charges/Coding Visit Charges Inpatient E&M: 68411 Subs Hosp L2 09/09/24 1401 <Electronically signed by Jose Zhang MD> Cosigner Signature (if applicable): CC: ~ Signed [facility] Work Phone: [phone] Progress note Author Jose Zhang [facility] Note Date/Time September 08, 2024 5:36 pm [facility] Medical Records Department [address] [place] [id number] Progress Note - Hospitalist 09/08/24 1732 MR#: [id number] Acct: [id number] Name: REY MEAD Rep #:[id number] : 1955 69 From: Jose Eisenberg PCP: Dr. Angelica Saleh MD Status:ADM IN Location: [place] [address] Reason for Visit Reason for Visit: Diagnoses Sepsis, unspecified organism (09/04/24) Methicillin susceptible Staphylococcus aureus infection as the cause of diseasesclassified elsewhere (09/04/24) Anemia, unspecified (09/04/24) Hypo-osmolality and hyponatremia (09/04/24) Hypokalemia (09/04/24) Pneumonia, unspecified organism (09/04/24) Chronic obstructive pulmonary disease, unspecified (09/04/24) Weakness (09/04/24) Severe sepsis with septic shock (09/04/24) Bacteremia (09/04/24) Objective Data Objective Data Vital Signs: Vital Signs Temp Pulse Resp BP Pulse Ox O2 Del Method O2 Flow Rate 97.6 F L 80 16 119/57 L 95 Nasal Cannula 3 09/08/24 15:56 09/08/24 15:56 09/08/24 15:56 09/08/24 15:56 09/08/24 15:56 09/08/24 15:56 09/08/24 15:56 Oxygen Flow Rate (L/min) 3 Oxygen Delivery Method Nasal Cannula Weight: 184 lb 4.903 oz Body Mass Index (BMI) 27.2 Intake & Output: Intake and Output for Last 24 Hours 09/06/24 09/07/24 09/08/24 23:59 23:59 23:59 Intake Total 2841.42 / 2841.42 410 / 410 810 / 810 Output Total 580 / 580 829 / 1504 1875 / 1875 Balance 2261.42 / 2261.42 -419 / -1094 -1065 / -1065 Lab / Micro Data 09/07/24 05:36 09/07/24 05:36 Labs: Laboratory Results - last 24 hr 09/07/24 21:52: POC Glucose 278 H 09/08/24 06:53: POC Glucose 146 H 09/08/24 11:37: POC Glucose 215 H 09/08/24 15:59: POC Glucose 209 H Micro: Microbiology 09/04/24 11:00 Blood Culture (Wb) - Anticubital Left Blood Culture - Final Staphylococcus aureus 09/04/24 11:00 Blood Culture (Wb) - Anticubital Left Blood Culture - Final Streptococcus group G Staphylococcus aureus 09/06/24 10:30 Stool Stool Occult Blood (DORYS) - Final Occult Blood Positive 09/04/24 12:40 Urine, Clean Catch Urine Culture - Final Culture exhibits no growth. 09/05/24 06:33 Sputum, Expectorated/Coughed Gram Stain - Final 09/05/24 06:33 Sputum, Expectorated/Coughed Respiratory Culture - Final 09/04/24 19:26 Stool Enteric Bacteriology - Final 09/04/24 19:26 Stool Clostridioides difficile (PCR) - Final 09/04/24 11:06 Mucosa - Nose SARS-CoV-2, Influenza & RSV (PCR) - Final Physical Exam Narrative Seen and examined. No acute change. Patient still gets easily short of breath on going to bathroom. Mild chronic cough. Recent blood culture pending On 3 L of oxygen Physical exam General: Alert, Oriented x3, Cooperative. BMI 27 point EKG prescribed HEENT: Atraumatic, PERRLA, EOMI, Normocephalic. Oral: No Gingival or Mucosal Lesions/ Ulcerations Neck: Supple, No JVD, Negative Carotid Bruits Chest wall/Lungs: Air entry diminished in bilateral lungs. Bilateral coarse crepitation Cardiovascular: Regular rate and rhythm, Normal S1,S2, no murmur gallop Abdomen: Bowel Sounds Present, Soft, Non Tender, Non-Distended : No dysuria. No renal angle tenderness. No suprapubic tenderness. Extremities: Mild 1 edema, Capillary Refill Less than 3 Seconds Skin: No rashes, No breakdown Musculoskeletal: No Tenderness to Palpation of Joints or Extremities Neurological: Cranial nerves II-XII grossly intact, DTR 2+/4. No acute focal neurological deficit. Psych/Mental Status: Normal Affect, Appropriate. Assessment & Plan Assessment/Plan (1) Weakness: (2) Anemia: (3) Septic shock: (4) Pneumonia: PLAN: Plan Patient is a 69-year-old male who presented to [facility] ED on 09/04/2024 with generalized weakness with a fall. 1. Septic shock and acute hypoxia suspected secondary to pneumonia and COPD exacerbation, gram-positive bacteremia ? Court Reporter following. ID consulted. On home oxygen, requiring 4 L on admit to maintain appropriate saturations. Clinical concern for left upper lobe pneumonia as precipitating etiology. Patient ultimately developed fluid refractory hypotension requiring the initiation of vasopressor support to maintain hemodynamic stability. Blood cultures prelim positive for both Staph aureus and group G strep on 09/06. TTE ordered. Continue IV vancomycin and Zosyn for now. Initiated on IV steroids and scheduled DuoNebs on 09/05. Wean supplemental oxygen as able. Appreciate further ID recommendations. 09/07: ID follow-up reviewed. Septic shock suspected due to lung cancer versus trauma to left fifth toe complicated by dry gangrene. Repeat blood culture ordered. Narrow antibiotic to cefazolin and Flagyl. Septic shock resolved withno fever, off pressor. Urine culture shows no growth. 09/08: Patient has mild cough. Mucinex DM prescribed. ID follow-up reviewed. Pending. Blood culture repeated. Continue cefazolin/Flagyl. 2. Metastatic lung cancer with recent radiation therapy ? Follows with outpatient oncology and radiation oncology. See quick note for further details on cancer history. In short, patient was recently initiated on radiation therapy for metastases to T6 and T7. It appears he completed 3 of 5 rounds of radiation that were planned for this. Has history of resection of cancer in [place] in 2016 and radiation therapy of cancer in [place] in 2023. Case management following as below. Patient is certainly an appropriate palliative care candidate at this time and pending clinical course, may be appropriate for hospice care. 09/07: Follow-up outpatient with radiation oncology and medical oncology 3. Acute on chronic debility ? PT/OT/case management following. Patient lives at home alone and appears to have poor social support. Appreciate therapy and case management recommendations. 4. Acute on chronic anemia ? Hemoglobin 7.2 on admit, dropped to 6.8 on hospital day 2. Hemoglobin in June was 11 and that appeared to be his baseline. In [facility] records, hemoglobin 9.7 on CBC from 08/21. Patient denies change in bowel movements. Ironstudies notably with high ferritin consistent with anemia of chronic disease. Transfuse 1 unit of blood with repeat hemoglobin 7.8 on morning of 09/06. EGD on09/06 was unremarkable.p.o. PPI daily. 09/07: H&H 8./%. Platelet count 03/22/1978 K. Monitor CBC 5. Concern for malnutrition ? Nutrition following. BMI 17 on admit. However per nutrition, did not meet criteria for malnutrition. Supplements of Ensure clear and Ensure plus high-protein will be added to meals. Appreciate further nutrition recommendations. Chronic medical conditions: ? BPH with obstructive symptoms: Patient with significant urinary retention on admission relieved with straight cath. Will continue to monitor with bladder scans as needed and can consider Hollis catheterization if retaining. Continue home Flomax. ? History of CAD with CABG, hypertension, hyperlipidemia: Had CABG back in 2016. Hypotensive on admit as above. Continue home statin. Restarted home aspirin on 09/06. Holding home beta-yajaira and Lasix for now. ? Type 2 diabetes mellitus with diabetic neuropathy: Continue Humalog 75-25 mix at 15 units twice daily along with sliding scale insulin with meals, adjust as needed. Continue home gabapentin. ? Anxiety/depression: Continue home paroxetine and Ativan as needed. ? GERD: Treating with p.o. PPI daily as above. DVT prophylaxis: Lovenox CODE STATUS: Full code, verified Expected disposition: TBD Microbiology Past 72 Hours 09/04/24 11:00 Blood Culture (Wb) - Anticubital Left Blood Culture - Final Staphylococcus aureus 09/04/24 11:00 Blood Culture (Wb) - Anticubital Left Blood Culture - Final Streptococcus group G Staphylococcus aureus 09/06/24 10:30 Stool Stool Occult Blood (DORYS) - Final Occult Blood Positive 09/04/24 12:40 Urine, Clean Catch Urine Culture - Final Culture exhibits no growth. Laboratory Results 09/07/24 21:52: POC Glucose 278 H 09/08/24 06:53: POC Glucose 146 H 09/08/24 11:37: POC Glucose 215 H 09/08/24 15:59: POC Glucose 209 H Clinical Impression(s) from Imaging Studies Chest X-Ray 09/04/24 11:02 IMPRESSION: Stable examination with evidence of hyperinflation and pulmonary hypertension. Stable nodular density and/or infiltrate in the left upper lobe. Reading Location: [id number] Pelvis X-Ray 09/04/24 11:06 IMPRESSION: No acute abnormality is seen. Dense atherosclerotic calcification of the abdominal aorta and iliac arteries. Reading Location: [id number] Toe X-Ray 09/04/24 11:06 IMPRESSION: No acute fracture is seen. Reading Location: [id number] Chest/Abdomen/Pelvis CT 09/04/24 14:32 IMPRESSION: Heterogeneous consolidation in the left upper lobe with a central necrosis and left hilar lymphadenopathy. A neoplastic process should be ruled out. Tiny nodules in the right lung as described. Left adrenal mass suggestive of possible metastasis. Reading Location: [facility] Charges/Coding Visit Charges Inpatient E&M: 06435 Subs Hosp L2 09/08/24 1736 <Electronically signed by Jose Zhang MD> Cosigner Signature (if applicable): CC: ~ Signed ADDENDUM by Dr. Jose Zhang MD on 09/08/24 at 1736 Addendum Clinical Impression(s) from Imaging Studies Chest X-Ray 09/04/24 11:02 IMPRESSION: Stable examination with evidence of hyperinflation and pulmonary hypertension. Stable nodular density and/or infiltrate in the left upper lobe. Reading Location: [id number] Pelvis X-Ray 09/04/24 11:06 IMPRESSION: No acute abnormality is seen. Dense atherosclerotic calcification of the abdominal aorta and iliac arteries. Reading Location: [facility] Toe X-Ray 09/04/24 11:06 IMPRESSION: No acute fracture is seen. Reading Location: [id number] Chest/Abdomen/Pelvis CT 09/04/24 14:32 IMPRESSION: Heterogeneous consolidation in the left upper lobe with a central necrosis and left hilar lymphadenopathy. A neoplastic process should be ruled out. Tiny nodules in the right lung as described. Left adrenal mass suggestive of possible metastasis. Reading Location: [id number] Echocardiogram 09/06/24 16:43 Interpretation Summary The LV ejection fraction is 60 %. Stage 1 diastolic dysfunction. The left atrium is mildly enlarged. Moderate mitral valve annular calcification. Trivial mitral valve regurgitation. No valvular vegetations noted on the surface echocardiogram. Consider transesophageal echocardiogram for further evaluation if clinically indicated. Ordering Physician: Stanton Ortega Referring Physician: ANGELICA SALEH Performed By: Krystal OLIVERA, Ramila and Student 09/08/24 1736<Electronically signed by Jose Zhang MD> Cosigner Signature (if applicable): cc: ~* Signed [facility] Work Phone: 1(640) 606-587906-27-2025 Progress note Author Romain Bazzi [facility] Note Date/Time September 08, 2024 11:3 1am [facility] Medical Records Department [address] [place] [address] Progress Note - Infect Disease 09/08/24 1130 MR#: [id number] Acct: [id number] Name: REY MEAD Navjot Rep #:[id number] : 1955 69 From: Romain shah MD PCP: Dr. Angelica Saleh MD Status:ADM IN Location: [place] [address] Physical Exam Narrative Feeling better, no fever, no n/v/d Const alert and no apparent distress General Appearance: cooperative Resp normal air movement and clear to auscultation bilaterally Cardio regular rate and regular rhythm GI soft to palpation, non-tender and non-distended Skin no rashes or lesions noted ID ID: Route of nutrition/ use of supplements: [] Nutritional Intake: [] IV Site: [] Hollis Catheter: [] Assessment & Plan Assessment/Plan (1) Septic shock: (2) MSSA bacteremia: PLAN: Suspect due to lung cancer vs trauma to L 5th toe complicated by dry gangrene. Single bcx also with strep. TTE pending. Will repeat bcx. Cont cefazolin/flagyl. Overall much improved, off pressor, out of icu, fever resolved. Will follow 09/08/24 1131 <Electronically signed by Romain Bazzi MD> Cosigner Signature (if applicable): CC: ~ Signed [facility] Work Phone: 1(415) 592-432306-26-2025 Consult note Author [facility] Note Date/Time September 07, 2024 6:01 pm [facility] Medical Records Department [address] [place] [address] Anesthesia Postop Eval II 09/07/24 1801 MR#: [id number] Acct: [id number] Name: REY MEAD Rep #:[id number] : 1955 69 From: Tiff Oconnell CRNA PCP: Dr. Angelica Saleh MD Status:ADM IN Y Race: C Location: [place] [address] -1 Anesthesia Postop Eval I Sum Postop Eval Completion status Anesthesia document: Postop Eval 1 completed: Yes Anesthesia Postop Eval I Summary Anesthesia Postop Eval I Summary: Anesthesia Postop Eval I: Assessment Summary Airway patent Yes 09/07/24 17:25 Spontaneous unlabored Yes 09/07/24 17:25 respirations Mental status Awake,Calm 09/07/24 17:25 nausea No 09/07/24 17:25 Vomiting No 09/07/24 17:25 Anesthesia Postop Eval I: Fluid Summary Crystalloid volume administer 300 09/07/24 17:25 (ml) Colloids volume administered ( ml) Blood Product volume administered (ml) Total IV fluid infused 300 09/07/24 17:25 Anesthesia Postop Eval I: Summary Notes Anesthesia Complication No 09/07/24 17:25 Anesthesia Complication Comment: Post-operative progress note Anesthesia: Postop Eval II Evaluation Mental status: Awake Pain Level: 0 nausea: No Vomiting: No 09/07/24 1801 <Electronically signed by Tiff betancur CRNA> Date _ Tiff Oconnell CRNA Cosigner Signature: Date CC: ~ Signed [facility] Work Phone: [phone]) 472-844406-26-2025 Consult note Author Jameel [facility] Note Date/Time September 07, 2024 5:25 pm [facility] Medical Records Department [address] [place] [address] Anesthesia Postop Eval I 09/07/24 1723 MR#: [id number] Acct: [id number] Name: REY MEAD Rep #:[id number] : 1955 69 From: Jameel Lakhani MD PCP: Dr. Angelica Saleh MD Status:ADM IN Y Race: C Location: [place] [address] 7-1 Anesthesia: Postop Eval I Current Vital Signs Temperature: 98.5 F Pulse Rate: 77 Blood Pressure: 109/59 Respiratory Rate: 16 Pulse Ox: 97 Oxygen Delivery Method: Nasal Cannula Oxygen Flow Rate (L/min): 3 Assessment Airway patent: Yes Spontaneous unlabored respirations: Yes Mental status: Awake and Calm nausea: No Vomiting: No Anesthesia Complication: No Fluid Hydration Crystalloid volume administer (ml): 300 Total IV fluid infused: 300 Progress Note Anesthesia document: Postop Eval 1 completed: Yes 09/07/241724 <Electronically signed by Jameel higgins MD> Date _ Jameel Lakhani MD Cosigner Signature: Date CC: ~ Signed [facility] Work Phone: [phone]) [phone] Consult note Author Jameel [facility] Note Date/Time September 07, 2024 4:30 pm [facility] Medical Records Department [address] [place] [address] Pre-Anesthesia Evaluation 09/07/24 1621 MR#: [id number] Acct: [id number] Name: REY MEAD Rep #:[id number] : 1955 69 From: Jameel Lakhani MD PCP: Dr. Angelica Saleh MD Status:ADM IN Y Race: C Location: [place] [address] ASA Classification* ASA Classification ASA Classification: 3 Assessment & Plan Anesthesia* Anesthesia Assessment Anesthesia Assessment: Discussed sedation and/or anesthesia options, risks, benefits, and alternatives with patient/parents/legal guardian/POA. Questions invited. The patient/parents/legal guardian/POA seems to understand and agrees to proceedwith anesthesia plan. Reviewed the physical assessment, medical history, allergy history and patient home medications list prior to surgery/procedure/anesthetic and documented any changes. Performed airway and anesthesia risk assessments. Anesthesia Type Anesthesia Type: MAC History Source History Obtained from:: Patient and Chart Anesthesia Focused Assessment* Temperature: 97.9 F Pulse Rate: 98 Blood Pressure: 146/68 Respiratory Rate: 16 Pulse Ox: 100 Oxygen Delivery Method: Nasal Cannula Oxygen Flow Rate (L/min): 3 Airway Assessment Mouth opens: >3 cm Mallampati Score: III Teeth Condition: Missing (Patient is edentulous.) Neck Range of motion (ROM): Limited ROM (Severe decrease in extension.) Labs Anesthesia Preop lab: CBC WBC 9.7 K/mm3 (4.4-11.0) 09/07/24 05:36 09/07/24 RBC 3.12 M/mm3 (4.6-6.2) L 09/07/24 05:36 09/07/24 Hgb 8.6 g/dL (13.0-16.5) L 09/07/24 05:36 09/07/24 Hct 27.3 % (40-54) L 09/07/24 05:09/07/24 Plt Count 179 K/mm3 (150-450) 09/07/24 05:36 09/07/24 CHEMISTRY Potassium 3.0 mmol/L (3.3-5.1) L 09/07/24 05:36 09/07/24 Sodium 140 mmol/L (133-145) 09/07/24 05:36 09/07/24 Magnesium 2.2 mg/dL (1.5-2.2) 09/07/24 05:36 09/07/24 Phosphorus 1.6 mg/dL (2.7-4.5) L 09/07/24 05:36 09/07/24 BUN 9 mg/dL (4-19) 09/07/24 05:36 09/07/24 Creatinine 0.74 mg/dL (0.70-1.20) 09/07/24 05:36 09/07/24 Glucose 213 mg/dL (70-99) H 09/07/24 05:36 09/07/24 POC Glucose 234 mg/dL (74-106) H 09/07/24 11:47 09/07/24 TSH 0.767 uIU/mL (0.300-4.200) 06/06/24 09:07 05/14 08/06 COAG PT 17.3 SECONDS (11.7-14.9) H 09/07/24 05:36 08/14 09/06 Pre-Assessment Diagnosis/Proposed Procedure Planned Operative Procedure(s): Colonoscopy Anesthesia History 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 When Was Last Pacemaker Check QUESTION #4 FULL TEXT: You/Your Family Experience fever (hyperthermia) with Anesthesia Last Oral Intake Last Oral intake: Last Oral Intake NPO since 09/06/24 01:22 Meds taken in AM with sips of No 09/06/24 01:22 water? 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 Female HX of Motion Sickness HX of N/V After Surgery Non-Smoker Duration of Surgery greater than 60 minutes Number of Risk Factors PONV Score Height & Weight Height & Weight: Anesthesia: Height & Weight Height 5 ft 9 in 09/07/24 14:16 Weight: 83.8 kg 09/07/24 14:16 Body Mass Index (BMI) 27.3 09/07/24 06:00 Respiratory Assessment Respiratory Assessment - soccer commentator: Respiratory Tract Infection Hx - soccer commentator Hx Respiratory Tract Infection No 09/07/24 08:17 STOP Sleep Apnea STOP Sleep Apnea - soccer commentator: STOP Sleep Apnea - soccer commentator Hx Hypertension Yes: CONTROLLED WITH MED 09/05/24 12:54 Hx Sleep Apnea Yes 09/06/24 13:11 CPAP Yes 09/06/24 12:41 BIPAP No 09/04/24 16:22 Do you snore loudly (louder than talking or can be heard Do you often feel tired/ fatigued/ sleepy during daytime? Has anyone observed you stop breathing during sleep? STOP Results Positive 09/06/24 12:41 QUESTION #5 FULL TEXT : Do you snore loudly (louder than talking or can be heard through closed doors)? 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 Specify any problems Hx of Preganancy in last 3 N/A 09/04/24 16:22 Months Nurse Filling Out Transfusion DSLOAN 09/04/24 16:22 & Questions: Date: 09/04/24 09/04/24 16:22 Time: 16:09/04/24 16:22 Patient unable to answer at this time (ie. confused, unrespo /Reproduction History /Reproductive History - soccer commentator: /Reproductive Hx- soccer commentator Hx Now No 09/07/24 08:17 Gestational Age (in weeks): EDC: Hx Hx Para Hx Section SAB No 09/07/24 08:17 Active Medications Active Medications: Current Medications Generic Name Dose Route Start Last Admin Trade Name Freq PRN Reason Stop Dose Admin Acetaminophen 650 mg 09/04/24 16:03 09/05/24 18:47 Acetaminophen 325 Mg Tablet PO 650 mg Q6H PRN PRN Administration Pain 1-10 Or Fever >100.7 Albuterol Sulfate 2.5 mg 09/04/24 16:03 09/06/24 14:56 Albuterol 2.5 Mg/3 Ml Vial.Neb. INHALATION 2.5 mg Q2H PRN PRN Administration SOB &/OR WHEEZING Albuterol/Ipratropium 3 ml 09/05/24 10:15 09/07/24 15:20 Ipratropium/Albuterol Sulfate 3 Ml Ampul.Neb INHALATION 3 ml Q4HWA.RT ELIUD Administration Aspirin 81 mg 09/05/24 08:00 09/07/24 07:33 Aspirin E.C. 81 Mg Tablet PO Not Given BREAKFAST ELIUD Atorvastatin Calcium 20 mg 09/04/24 22:00 09/06/24 21:45 Atorvastatin Calcium 20 Mg Tablet PO 20 mg QHS ELIUD Administration Budesonide 0.5 mg 09/04/24 16:30 09/06/24 20:30 Budesonide Respules 0.5 Mg/2 Ml Ampul.Neb. INHALATION 0.5 mg Q12H.RT ELIUD Administration Calamine/Phenol 1 applic 09/04/24 18:00 09/07/24 13:10 Menthol/Lanolin/Calamine/Znox 113 Gm Tube TOPICAL 1 applic 4X/DAY ELIUD Administration Protocol Gabapentin 300 mg 09/04/24 22:00 09/06/24 21:47 Gabapentin 300 Mg Capsule PO 300 mg QHS ELIUD Administration Glucagon 1 mg 09/04/24 16:03 Glucagon 1 Mg/Ml Syringe IM X1 PRN HYPOGLYCEMIA Protocol Dextrose 250 mls @ 0 mls/hr 09/04/24 16:03 Dextrose 10%-Water IV .Q0M PRN HYPOGLYCEMIA Protocol As Directed Sodium Chloride 250 mls @ 15 mls/hr 09/04/24 16:07 IV .[id number] PRN Saline Flush Sodium Chloride 250 mls @ 15 mls/hr 09/04/24 16:07 IV .[id number] PRN Additional IVPB Infusion Lactated Ringer's 1,000 mls @ 15 mls/hr 09/06/24 11:15 09/06/24 13:45 IV 0 mls/hr .Q48H ELIUD Infusion Cefazolin Sodium 2 gm/ Sodium 110 mls @ 200 mls/hr 09/07/24 14:00 09/07/24 14:11 Chloride IV Infused Q8 ELIUD Infusion Lactated Ringer's 1,000 mls @ 15 mls/hr 09/07/24 16:15 IV .Q48H ELIUD Insulin Human Lispro 0 unit 09/04/24 16:03 09/07/24 15:37 Insulin Lispro 100 Unit/Ml Insuln.Pen SC Not Given ACHS ELIUD Protocol Insulin Lispro Protam/Lispro Human 15 unit 09/06/24 08:00 09/07/24 15:37 Insulin Human /25 Kwickpen SC Not Given BIDCM ELIUD Lorazepam 0.5 mg 09/04/24 16:03 09/04/24 20:06 Lorazepam 0.5 Mg Tablet PO 0.5 mg TID PRN Administration ANXIETY Melatonin 10 mg 09/04/24 16:03 09/04/24 20:07 Melatonin 3 Mg Tablet PO 10 mg QHS PRN PRN Administration INSOMNIA Methylprednisolone 60 mg 09/05/24 14:00 09/07/24 13:37 Methylprednisolone 125 Mg/2 Ml Vial IV 60 mg Q8 ELIUD Administration Metronidazole 500 mg 09/07/24 14:00 09/07/24 15:30 Metronidazole 500 Mg Tablet PO Not Given TID ELIUD Ondansetron HCl 4 mg 09/04/24 16:03 09/04/24 22:31 Ondansetron 4 Mg/2 Ml Vial IV 4 mg Q8H PRN PRN Administration NAUSEA/VOMITING Oxycodone HCl 5 mg 09/04/24 16:03 09/06/24 01:40 Oxycodone 5 Mg Tablet PO 5 mg Q6H PRN PRN Administration pain 1-10 Pantoprazole Sodium 40 mg 09/07/24 10:00 09/07/24 11:52 Pantoprazole Sodium 40 Mg Tablet PO Not Given DAILY [facility] Paroxetine HCl 10 mg 09/05/24 10:00 09/07/24 11:52 Paroxetine 10 Mg Tablet PO Not Given DAILY [facility] Potassium Phos/Sodium Phos 1 packet 09/06/24 11:00 09/07/24 15:37 Na Biphos/Potassium Phosphate Packet PO Not Given TIDAC ELIUD Senna/Docusate Sodium 2 tablet 09/04/24 16:03 Senna/Docusate Sodium 1 Tablet PO BID PRN PRN Constipation Sodium Chloride 10 - 40 ml 09/04/24 16:07 09/06/24 07:12 0.9% Saline Lock 10 Ml Syringe IV 10 ml UD PRN Administration SALINE FLUSH Tamsulosin HCl 0.4 mg 09/05/24 10:00 09/07/24 11:52 Tamsulosin Hcl 0.4 Mg Capsule PO Not Given DAILY [facility] Medical History Alcohol use Excessive bleeding History of echocardiogram History of stress test Cardiology follow-up encounter Chest pain Vitamin D deficiency Left adrenal mass CAD (coronary artery disease) Blind Cancer Depression Anxiety Diabetes Prostate disease DVT (deep venous thrombosis) High cholesterol Easy bruising Umbilical hernia Neuropathy Injury of head and neck Syncope Former smoker On home oxygen therapy CPAP (continuous positive airway pressure) dependence COPD (chronic obstructive pulmonary disease) Shortness of breath on exertion History of edema Hypertension Home Medications ?Medication ?Instructions ?Recorded ?Last Taken ?Type albuterol sulfate 2.5 mg/3 mL 2.5 mg inhalation DAILY 01/08/23 09/03/24 History (0.083 %) solution for nebulization albuterol sulfate 90 mcg/actuation 2 puff inhalation P RN PRN 01/08/23 05/30/24 History aerosol inhaler shortness of breath or wheez ing aspirin 81 mg tablet,delayed 81 mg PO DAILY 01/08/23 0 09/04/24 History release atorvastatin 20 mg tablet 20 mg PO QHS 01/08/23 History dapagliflozin propanediol 5 mg 5 mg PO DAILY 01/08/23 09/03/24 History tablet (Farxiga) fluticasone fur. 100 mcg-umeclid 1 inh inhalation GURU Y 01/08/23 09/03/24 History 62.5 mcg-vilant 25 mcg inhalat.powder (Trelegy Ellipta) furosemide 40 mg tablet 40 mg PO DAILY 01/08/2308/14 History paroxetine HCl 10 mg tablet 10 mg PO DAILY 01/08/23 History pregabalin 150 mg capsule 150 mg PO DAILY 01/08/23 History roflumilast 250 mcg tablet 250 mcg PO DAILY 01/08/23 0 09/04/24 History tamsulosin 0.4 mg capsule 0.4 mg PO Q24H 01/08/2308/14 History metformin 500 mg tablet,extended 1,500 mg PO QHS 03/2209/04/24 History release 24hr (osmotic) gabapentin 300 mg capsule 300 mg PO QHS 05/10/2409/03 History lorazepam 1 mg tablet 1 mg PO TID #90 tabs 5 Unknown Rx esomeprazole magnesium 40 mg 40 mg PO DAILY 09/04/24 0 09/03/24 History capsule,delayed release insulin lispro protamine-lispro 15 unit subcut BIDCM 0 09/04/24 09/04/24 History 100 unit/mL (75-25) subcutaneous pen (Humalog Mix 75-25 KwikPen) metoprolol succinate 25 mg 25 mg PO DAILY 09/04/24 History tablet,extended release 24 hr oxycodone 5 mg tablet 5 - 10 mg PO Q6H PRN PRN arabella n 09/04/24 Unknown History prednisone 5 mg tablet 15 mg PO DAILY 09/04/24 Unkn own History semaglutide 7 mg tablet (Rybelsus) 7 mg PO DAILY 09/0409/04/24 History vitamin B complex (Complex B-100 1 tab PO DAILY 09/04/24 History tablet,extended release) Allergy/AdvReac Type Severity Reaction Status Date / Time No Known Allergies Allergy Verified 07/24/24 10:03 Family History Mother Cancer LUNG Heart disease Father Cancer lung Sister Cancer lung Heart disease Sister Cancer lung Sister Cancer lung Sister Colon cancer Surgical History Hx of fracture of leg Hx of fracture of foot History of bronchoscopy Hx of biopsy History of lobectomy of lung Hx of oral surgery History of open heart surgery (05/08/15) Social History household members: none housing: other 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 09/07/24 1630 <Electronically signed by Jameel higgins MD> Date _ Jameel Lakhani MD Cosigner Signature: Date CC: ~ Signed [facility] Work Phone: 1(778) 950-360706-26-2025 Progress note Author Wild Gallagher [facility] Note Date/Time September 07, 2024 4:15 pm [facility] Medical Records Department [address] [place] [address] Progress Note 09/07/24 1613 MR#: [id number] Acct: [id number] Name: REY MEAD Rep #:[id number] : 1955 69 From: Wild Gallagher DO PCP: Dr. Angelica Saleh MD Status:ADM IN Location: [place] [address] Progress Note Patient completed bowel prep yesterday without any problems. He has been n.p.o. Physical Exam Const alert, oriented x3, no apparent distress and healthy appearing General Appearance: cooperative GI normal to inspection, nondistended, normoactive bowel sounds, soft to palpation,non-tender and non-distended Percussion: normal to percussion Rectal Exam: deferred Assessment & Plan Assessment/Plan (1) Anemia: PLAN: Patient will undergo a colonoscopy as his EGD yesterday did not show any abnormalities. He was explained alternatives, risk, benefits include not withstanding bleeding, infection, sepsis, perforation, need for urgent . He will have an ASA of 3. Visit Charges Inpatient E&M: 32761 Subs Hosp L2 09/07/241614 <Electronically signed by Wild Gallagher DO> Wild Gallagher DO Cosigner Signature (if applicable): CC: ~ Signed [facility] Work Phone: 1(532) 292-165206-26-2025 Progress note Author Jose Zhang [facility] Note Date/Time September 07, 2024 4:13 pm [facility] Medical Records Department [address] [place] [address] Progress Note - Hospitalist 09/07/24 1146 MR#: [id number] Acct: [id number] Name: REY MEAD Rep #:[id number] : 1955 69 From: Jose Eisenberg PCP: Dr. Angelica Saleh MD Status:ADM IN Location: [place] [address]- Reason for Visit Reason for Visit: Diagnoses Sepsis, unspecified organism (09/04/24) Methicillin susceptible Staphylococcus aureus infection as the cause of diseasesclassified elsewhere (09/04/24) Anemia, unspecified (09/04/24) Hypo-osmolality and hyponatremia (09/04/24) Hypokalemia (09/04/24) Pneumonia, unspecified organism (09/04/24) Chronic obstructive pulmonary disease, unspecified (09/04/24) Weakness (09/04/24) Severe sepsis with septic shock (09/04/24) Bacteremia (09/04/24) Objective Data Objective Data Vital Signs: Vital Signs Temp Pulse Resp BP Pulse Ox O2 Del Method O2 Flow Rate 97.8 F 77 18 139/72 H 98 Nasal Cannula 3 09/07/24 08:27 09/07/24 08:27 09/07/24 08:27 09/07/24 08:27 09/07/24 08:27 09/07/24 08:27 09/07/24 08:27 Oxygen Flow Rate (L/min) 3 Oxygen Delivery Method Nasal Cannula Weight: 184 lb 11.958 oz Body Mass Index (BMI) 27.3 Intake & Output: Intake and Output for Last 24 Hours 09/05/24 09/06/24 09/07/24 23:59 23:59 23:59 Intake Total 3580.13 / 3580.13 2841.42 / 2841.42 300 / 300 Output Total 2850 / 2850 580 / 580 825 / 825 Balance 730.13 / 730.13 2261.42 / 2261.42 -525 / -525 Lab / Micro Data 09/07/24 05:36 09/07/24 05:36 Labs: Laboratory Results - last 24 hr 09/04/24 16:47: RBC Folate Hemolysate 415.0, RBC Folate 1836, Hematocrit 22.6 L 09/06/24 14:01: POC Glucose 255 H 09/06/24 16:28: POC Glucose 275 H 09/06/24 21:41: POC Glucose 231 H 09/07/24 05:36: WBC 9.7, RBC 3.12 L, Hgb 8.6 L, Hct 27.3 L, MCV 87.5, MCH 27.6, MCHC 31.5 L, RDW Std Deviation 55.2 H, RDW Coeff of Jaquan 17.2 H, Plt Count 179, MPV 9.5, PT 17.3 H, INR 1.4, APTT 32.0, Sodium 140, Potassium 3.0 L, Chloride 99, Carbon Dioxide 27.8, Anion Gap 13, BUN9, Creatinine 0.74, Estim Creat Clear Calc 88.38, Est GFR (MDRD) Non-Af 99, BUN/Creatinine Ratio 12.7, Glucose 213 H, Calcium 7.4 L, Phosphorus 1.6 L, Magnesium 2.2 Micro: Microbiology 09/04/24 11:00 Blood Culture (Wb) - Anticubital Left Blood Culture - Preliminary Streptococcus group G Staphylococcus aureus 09/04/24 11:00 Blood Culture (Wb) - Anticubital Left Blood Culture - Final Staphylococcus aureus 09/06/24 10:30 Stool Stool Occult Blood (DORYS) - Final Occult Blood Positive 09/04/24 12:40 Urine, Clean Catch Urine Culture - Final Culture exhibits no growth. 09/05/24 06:33 Sputum, Expectorated/Coughed Gram Stain - Final 09/05/24 06:33 Sputum, Expectorated/Coughed Respiratory Culture - Final 09/04/24 19:26 Stool Enteric Bacteriology - Final 09/04/24 19:26 Stool Clostridioides difficile (PCR) - Final 09/04/24 11:06 Mucosa - Nose SARS-CoV-2, Influenza & RSV (PCR) - Final Physical Exam Narrative Seen and examined. Patient has mild cough, not able to bring up phlegm with some chest congestion. Easily gets short of breath even on going to bathroom. On 3 L of oxygen Physical exam General: Alert, Oriented x3, Cooperative. BMI 27 point EKG prescribed HEENT: Atraumatic, PERRLA, EOMI, Normocephalic. Oral: No Gingival or Mucosal Lesions/ Ulcerations Neck: Supple, No JVD, Negative Carotid Bruits Chest wall/Lungs: Air entry diminished in bilateral lungs. Bilateral coarse crepitation Cardiovascular: Regular rate and rhythm, Normal S1,S2, no murmur gallop Abdomen: Bowel Sounds Present, Soft, Non Tender, Non-Distended : No dysuria. No renal angle tenderness. No suprapubic tenderness. Extremities: Mild 1 edema, Capillary Refill Less than 3 Seconds Skin: No rashes, No breakdown Musculoskeletal: No Tenderness to Palpation of Joints or Extremities Neurological: Cranial nerves II-XII grossly intact, DTR 2+/4. No acute focal neurological deficit. Psych/Mental Status: Normal Affect, Appropriate. Assessment & Plan Assessment/Plan (1) Weakness: (2) Anemia: (3) Septic shock: (4) Pneumonia: PLAN: Plan Patient is a 69-year-old male who presented to [facility] ED on 09/04/2024 with generalized weakness with a fall. 1. Septic shock and acute hypoxia suspected secondary to pneumonia and COPD exacerbation, gram-positive bacteremia ? Court Reporter following. ID consulted. On home oxygen, requiring 4 L on admit to maintain appropriate saturations. Clinical concern for left upper lobe pneumonia as precipitating etiology. Patient ultimately developed fluid refractory hypotension requiring the initiation of vasopressor support to maintain hemodynamic stability. Blood cultures prelim positive for both Staph aureus and group G strep on 09/06. TTE ordered. Continue IV vancomycin and Zosyn for now. Initiated on IV steroids and scheduled DuoNebs on 09/05. Wean supplemental oxygen as able. Appreciate further ID recommendations. 09/07: ID follow-up reviewed. Septic shock suspected due to lung cancer versus trauma to left fifth toe complicated by dry gangrene. Repeat blood culture ordered. Narrow antibiotic to cefazolin and Flagyl. Septic shock resolved withno fever, off pressor. Urine culture shows no growth. 2. Metastatic lung cancer with recent radiation therapy ? Follows with outpatient oncology and radiation oncology. See quick note for further details on cancer history. In short, patient was recently initiated on radiation therapy for metastases to T6 and T7. It appears he completed 3 of 5 rounds of radiation that were planned for this. Has history of resection of cancer in [place] in 2016 and radiation therapy of cancer in [place] in 2023. Case management following as below. Patient is certainly an appropriate palliative care candidate at this time and pending clinical course, may be appropriate for hospice care. 09/07: Follow-up outpatient with radiation oncology and medical oncology 3. Acute on chronic debility ? PT/OT/case management following. Patient lives at home alone and appears to have poor social support. Appreciate therapy and case management recommendations. 4. Acute on chronic anemia ? Hemoglobin 7.2 on admit, dropped to 6.8 on hospital day 2. Hemoglobin in June was 11 and that appeared to be his baseline. In [facility] records, hemoglobin 9.7 on CBC from 08/21. Patient denies change in bowel movements. Ironstudies notably with high ferritin consistent with anemia of chronic disease. Transfuse 1 unit of blood with repeat hemoglobin 7.8 on morning of 09/06. EGD on09/06 was unremarkable.p.o. PPI daily. 09/07: H&H 8.6/27%. Platelet count 03/22/1978 K. Monitor CBC 5. Concern for malnutrition ? Nutrition following. BMI 17 on admit. However per nutrition, did not meet criteria for malnutrition. Supplements of Ensure clear and Ensure plus high-protein will be added to meals. Appreciate further nutrition recommendations. Chronic medical conditions: ? BPH with obstructive symptoms: Patient with significant urinary retention on admission relieved with straight cath. Will continue to monitor with bladder scans as needed and can consider Hollis catheterization if retaining. Continue home Flomax. ? History of CAD with CABG, hypertension, hyperlipidemia: Had CABG back in 2016. Hypotensive on admit as above. Continue home statin. Restarted home aspirin on 09/06. Holding home beta-yajaira and Lasix for now. ? Type 2 diabetes mellitus with diabetic neuropathy: Continue Humalog 75-25 mix at 15 units twice daily along with sliding scale insulin with meals, adjust as needed. Continue home gabapentin. ? Anxiety/depression: Continue home paroxetine and Ativan as needed. ? GERD: Treating with p.o. PPI daily as above. DVT prophylaxis: Lovenox CODE STATUS: Full code, verified Expected disposition: TBD Microbiology Past 72 Hours 09/04/24 11:00 Blood Culture (Wb) - Anticubital Left Blood Culture - Preliminary Streptococcus group G Staphylococcus aureus 09/04/24 11:00 Blood Culture (Wb) - Anticubital Left Blood Culture - Final Staphylococcus aureus 09/06/24 10:30 Stool Stool Occult Blood (DORYS) - Final Occult Blood Positive 09/04/24 12:40 Urine, Clean Catch Urine Culture - Final Culture exhibits no growth. 09/05/24 06:33 Sputum, Expectorated/Coughed Gram Stain - Final 09/05/24 06:33 Sputum, Expectorated/Coughed Respiratory Culture - Final 09/04/24 19:26 Stool Enteric Bacteriology - Final 09/04/24 19:26 Stool Clostridioides difficile (PCR) - Final Laboratory Results 09/06/24 16:28: POC Glucose 275 H 09/06/24 21:41: POC Glucose 231 H 09/07/24 05:36: WBC 9.7, RBC 3.12 L, Hgb 8.6 L, Hct 27.3 L, MCV 87.5, MCH 27.6, MCHC 31.5 L, RDW Std Deviation 55.2 H, RDW Coeff of Jaquan 17.2 H, Plt Count 179, MPV 9.5, PT 17.3 H, INR 1.4, APTT 32.0, Sodium 140, Potassium 3.0 L, Chloride 99, Carbon Dioxide 27.8, Anion Gap 13, BUN 9, Creatinine 0.74, Estim Creat ClearCalc 88.38, Est GFR (MDRD) Non-Af 99, BUN/Creatinine Ratio 12.7, Glucose 213 H, Calcium 7.4 L, Phosphorus 1.6 L, Magnesium 2.2 09/07/24 11:47: POC Glucose 234 H Clinical Impression(s) from Imaging Studies Chest X-Ray 09/04/24 11:02 IMPRESSION: Stable examination with evidence of hyperinflation and pulmonary hypertension. Stable nodular density and/or infiltrate in the left upper lobe. Reading Location: [id number] Pelvis X-Ray 09/04/24 11:06 IMPRESSION: No acute abnormality is seen. Dense atherosclerotic calcification of the abdominal aorta and iliac arteries. Reading Location: [facility] Toe X-Ray 09/04/24 11:06 IMPRESSION: No acute fracture is seen. Reading Location: [facility] Chest/Abdomen/Pelvis CT 09/04/24 14:32 IMPRESSION: Heterogeneous consolidation in the left upper lobe with a central necrosis and left hilar lymphadenopathy. A neoplastic process should be ruled out. Tiny nodules in the right lung as described. Left adrenal mass suggestive of possible metastasis. Reading Location: [id number] Charges/Coding Visit Charges Inpatient E&M: 11772 Subs Hosp L2 09/07/24 1613 <Electronically signed by Jose Zhang MD> Cosigner Signature (if applicable): CC: ~ Signed [facility] Work Phone: [phone]) 308-587006-26-2025 Procedure [facility] 09-07-2024 Consult note Author Romain [facility] Note Date/Time September 07, 2024 10:0 4am [facility] Medical Records Department [address] [place] [id number] Consultation - Infectious Dx 09/07/24 0959 MR#: [id number] Acct: [id number] Name: REY MEAD Rep #:[id number] : 1955 69 From: Romain shah MD PCP: Dr. Angelica Saleh MD Status:ADM IN Location: [place] [id number] Assessment & Plan Assessment/Plan (1) Septic shock: (2) MSSA bacteremia: PLAN: Suspect due to lung cancer vs trauma to L 5th toe complicated by dry gangrene. Single bcx also with strep. TTE pending. Will repeat bcx. Narrow abx to cefazolin/flagyl. Overall much improved, off pressor, out of icu, fever resolved. Will follow, thank you HPI Consult Data Date of Consult: 09/07/24 HPI Narrative Reason for Consultation: bacteremia HPI Narrative: REY MEAD, is a 69 M with lung cancer on radiation therapy, h/o ELLEN, COPD, BPH, CAD. Presented to ED 09/04 with fall. Had been feeling ok prior to that. No fever, no sputum, no new joint/back pain. Reports hitting L 5th toe about a week ago and it turning black. No redness or drainage. Came to ED, admitted onvanc/zosyn. Started on pressors. Now out of icu, feeling better. Full ROS performed and neg except as noted above. PFSH Medical History Alcohol use Excessive bleeding History of echocardiogram History of stress test Cardiology follow-up encounter Chest pain Vitamin D deficiency Left adrenal mass CAD (coronary artery disease) Blind Cancer Depression Anxiety Diabetes Prostate disease DVT (deep venous thrombosis) High cholesterol Easy bruising Umbilical hernia Neuropathy Injury of head and neck Syncope Former smoker On home oxygen therapy CPAP (continuous positive airway pressure) dependence COPD (chronic obstructive pulmonary disease) Shortness of breath on exertion History of edema Hypertension Home Medications ?Medication ?Instructions ?Recorded ?Last Taken ?Type albuterol sulfate 2.5 mg/3 mL 2.5 mg inhalation DAILY 01/08/23 09/03/24 History (0.083 %) solution for nebulization albuterol sulfate 90 mcg/actuation 2 puff inhalation P RN PRN 01/08/23 05/30/24 History aerosol inhaler shortness of breath or wheez ing aspirin 81 mg tablet,delayed 81 mg PO DAILY 01/08/23 0 09/04/24 History release atorvastatin 20 mg tablet 20 mg PO QHS 01/08/23 History dapagliflozin propanediol 5 mg 5 mg PO DAILY 01/08/23 09/03/24 History tablet (Farxiga) fluticasone fur. 100 mcg-umeclid 1 inh inhalation GURU Y 01/08/23 09/03/24 History 62.5 mcg-vilant 25 mcg inhalat.powder (Trelegy Ellipta) furosemide 40 mg tablet 40 mg PO DAILY 01/08/2308/14 History paroxetine HCl 10 mg tablet 10 mg PO DAILY 01/08/23 History pregabalin 150 mg capsule 150 mg PO DAILY 01/08/23 History roflumilast 250 mcg tablet 250 mcg PO DAILY 01/08/23 0 09/04/24 History tamsulosin 0.4 mg capsule 0.4 mg PO Q24H 01/08/2308/14 History metformin 500 mg tablet,extended 1,500 mg PO QHS 03/2209/04/24 History release 24hr (osmotic) gabapentin 300 mg capsule 300 mg PO QHS 05/10/2409/03 History lorazepam 1 mg tablet 1 mg PO TID #90 tabs 04/22/2 5 Unknown Rx esomeprazole magnesium 40 mg 40 mg PO DAILY 09/04/24 0 09/03/24 History capsule,delayed release insulin lispro protamine-lispro 15 unit subcut BIDCM 0 09/04/24 09/04/24 History 100 unit/mL (75-25) subcutaneous pen (Humalog Mix 75-25 KwikPen) metoprolol succinate 25 mg 25 mg PO DAILY 09/04/24 History tablet,extended release 24 hr oxycodone 5 mg tablet 5 - 10 mg PO Q6H PRN PRN arabella n 09/04/24 Unknown History prednisone 5 mg tablet 15 mg PO DAILY 09/04/24 Unkn own History semaglutide 7 mg tablet (Rybelsus) 7 mg PO DAILY 09/0409/04/24 History vitamin B complex (Complex B-100 1 tab PO DAILY 09/04/24 History tablet,extended release) Allergy/AdvReac Type Severity Reaction Status Date / Time No Known Allergies Allergy Verified 07/24/24 10:03 Family History Mother Cancer LUNG Heart disease Father Cancer lung Sister Cancer lung Heart disease Sister Cancer lung Sister Cancer lung Sister Colon cancer Surgical History Hx of fracture of leg Hx of fracture of foot History of bronchoscopy Hx of biopsy History of lobectomy of lung Hx of oral surgery History of open heart surgery (05/08/15) Social History household members: none housing: other 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 Smoking Status: Former smoker quit date: 03/15/15 pack-years: 120 alcohol intake: current alcohol intake frequency: a few times a month Alcohol type: beer substance use type: does not use what type of physical activity do you participate in: none seatbelt use: always do you feel safe at home: Yes Physical Exam Const alert, oriented x3 and no apparent distress General Appearance: cooperative HEENT normocephalic and head/scalp atraumatic Eyes PERRL and EOMs intact bilaterally Neck supple and No nodes Resp Auscultation: rhonchi Cardio regular rate, regular rhythm and no murmurs GI soft to palpation, non-tender and non-distended Extremity General Extremity: Negative for edema Skin Skin Narrative: no splinter hemorrhages on hands or feet. L 5th toe is black, dry. Neuro CN's II-XII intact bilaterally Lab / Micro Data Attestation: I reviewed the patient's lab results. 09/07/24 05:36 09/07/24 05:36 Labs: Laboratory Results - last 24 hr 09/04/24 16:47: RBC Folate Hemolysate 415.0, RBC Folate 1836, Hematocrit 22.6 L 09/06/24 14:01: POC Glucose 255 H 09/06/24 16:28: POC Glucose 275 H 09/06/24 21:41: POC Glucose 231 H 09/07/24 05:36: WBC 9.7, RBC 3.12 L, Hgb 8.6 L, Hct 27.3 L, MCV 87.5, MCH 27.6, MCHC 31.5 L, RDW Std Deviation 55.2 H, RDW Coeff of Jaquan 17.2 H, Plt Count 179, MPV 9.5, PT 17.3 H, INR 1.4, APTT 32.0, Sodium 140, Potassium 3.0 L, Chloride 99, Carbon Dioxide 27.8, Anion Gap 13, BUN 9, Creatinine 0.74, Estim Creat ClearCalc 88.38, Est GFR (MDRD) Non-Af 99, BUN/Creatinine Ratio 12.7, Glucose 213 H, Calcium 7.4 L, Phosphorus 1.6 L, Magnesium 2.2 Micro: Microbiology 09/04/24 11:00 Blood Culture (Wb) - Anticubital Left Blood Culture - Preliminary Streptococcus group G Staphylococcus aureus 09/04/24 11:00 Blood Culture (Wb) - Anticubital Left Blood Culture - Final Staphylococcus aureus 09/06/24 10:30 Stool Stool Occult Blood (DORYS) - Final Occult Blood Positive 09/04/24 12:40 Urine, Clean Catch Urine Culture - Final Culture exhibits no growth. 09/07/24 1004 <Electronically signed by Romain Bazzi MD> Cosigner Signature (if applicable): CC: Dr. Angelica Saleh MD~ Signed [facility] Work Phone: [phone] Progress note Author Stanton isaac [facility] Note Date/Time September 06, 2024 4:43 pm [facility] Medical Records Department [address] [place] [address] Progress Note - Hospitalist 09/06/24 1213 MR#: [id number] Acct: [id number] Name: REY MEAD Rep #:[id number] : 1955 69 From: Stanton mir DO PCP: Dr. Angelica Saleh MD Status:ADM IN Location: [place] [address] Reason for Visit Reason for Visit: Diagnoses Sepsis, unspecified organism (09/04/24) Anemia, unspecified (09/04/24) Hypo-osmolality and hyponatremia (09/04/24) Hypokalemia (09/04/24) Pneumonia, unspecified organism (09/04/24) Chronic obstructive pulmonary disease, unspecified (09/04/24) Weakness (09/04/24) Severe sepsis with septic shock (09/04/24) Subjective Subjective Saw patient at bedside this morning shortly before he went down for his EGD. Hewas laying back comfortably in bed in no acute distress. [place] similar today to previous days. No new concerns this morning. Objective Data Objective Data Vital Signs: Vital Signs Temp Pulse Resp BP Pulse Ox O2 Del Method O2 Flow Rate 98.1 F 92 18 121/76 H 97 Nasal Cannula 2 09/06/24 11:34 09/06/24 11:34 09/06/24 11:34 09/06/24 11:34 09/06/24 11:34 09/06/24 11:34 09/06/24 11:34 Oxygen Flow Rate (L/min) 2 Oxygen Delivery Method Nasal Cannula Weight: 83.4 kg Body Mass Index (BMI) 27.1 Intake & Output: Intake and Output for Last 24 Hours 09/04/24 09/05/24 09/06/24 23:59 23:59 23:59 Intake Total 4183.2 / 4183.2 3580.13 / 3580.13 2213.75 / 2213.75 Output Total 1700 / 1700 2850 / 2850 580 / 580 Balance 2483.2 / 2483.2 730.13 / 730.13 1633.75 / 1633.75 Lab / Micro Data 09/06/24 05:42 09/06/24 05:42 Labs: Laboratory Results - last 24 hr 09/04/24 16:47: RBC Folate Hemolysate 415.0, RBC Folate 1836, Hematocrit 22.6 L 09/05/24 06:14: Hemoglobin A1c 7.7 H 09/05/24 12:10: POC Glucose 181 H 09/05/24 16:23: POC Glucose 256 H 09/05/24 21:39: POC Glucose 287 H 09/06/24 05:42: WBC 8.3, RBC 2.82 L, Hgb 7.8 L, Hct 24.8 L, MCV 87.9, MCH 27.7, MCHC 31.5 L, RDW Std Deviation 55.7 H, RDW Coeff of Jaquan 17.2 H, Plt Count 179, MPV 9.8, PT 17.5 H, INR 1.4, APTT 39.0 H, Sodium 137, Potassium 3.6, Chloride 98, Carbon Dioxide 26.5, Anion Gap 12, BUN 8, Creatinine 0.69 L, Estim Creat Clear Calc 88.38, Est GFR (MDRD) Non-Af 101, BUN/Creatinine Ratio 10.9, Glucose 248 H, Calcium 7.7, Vancomycin Trough 8.6 09/06/24 06:16: POC Glucose 219 H Micro: Microbiology 09/06/24 10:30 Stool Stool Occult Blood (DORYS) - Final Occult Blood Positive 09/04/24 12:40 Urine, Clean Catch Urine Culture - Final Culture exhibits no growth. 09/04/24 11:00 Blood Culture (Wb) - Anticubital Left Blood Culture - Preliminary Staphylococcus aureus 09/04/24 11:00 Blood Culture (Wb) - Anticubital Left Blood Culture - Preliminary 09/05/24 06:33 Sputum, Expectorated/Coughed Gram Stain - Final 09/05/24 06:33 Sputum, Expectorated/Coughed Respiratory Culture - Final 09/04/24 19:26 Stool Enteric Bacteriology - Final 09/04/24 19:26 Stool Clostridioides difficile (PCR) - Final 09/04/24 11:06 Mucosa - Nose SARS-CoV-2, Influenza & RSV (PCR) - Final Physical Exam Const alert, oriented x3 and no apparent distress Constitutional Narrative: Upper middle-aged male, appears older than stated age, thin and cachectic appearing, mildly fatigued and pale appearing, otherwise laying back comfortablyin bed, conversing normally, in no acute distress. Stable. General Appearance: cooperative and comfortable HEENT normocephalic, head/scalp atraumatic, hearing grossly normal bilaterally, nasal mucous membranes and turbinates normal and moist oral mucous membranes Eyes PERRL, EOMs intact bilaterally and conjunctivae normal Neck full ROM Chest inspection of chest normal Resp normal respiratory effort and no use of accessory muscles Resp Narrative: Breathing comfortably on 3 L nasal cannula at rest. Mildly diminished breath sounds bilaterally with mild upper airway wheezing noted. No crackles noted. Improving. Cardio regular rate, regular rhythm, no murmurs and peripheral pulses 2+ throughout GI normal to inspection, nondistended, normoactive bowel sounds, soft to palpation,non-tender and non-distended Extremity normal to inspection and no pedal edema Skin no rashes or lesions noted Neuro Neuro Narrative: Generalized weakness noted. Psych mental status grossly normal Assessment & Plan Assessment/Plan (1) Weakness: (2) Anemia: (3) Septic shock: (4) Pneumonia: PLAN: Plan Patient is a 69-year-old male who presented to [facility] ED on 09/04/2024 with generalized weakness with a fall. 1. Septic shock and acute hypoxia suspected secondary to pneumonia and COPD exacerbation, gram-positive bacteremia ? Court Reporter following. ID consulted. On home oxygen, requiring 4 L on admit to maintain appropriate saturations. Clinical concern for left upper lobe pneumonia as precipitating etiology. Patient ultimately developed fluid refractory hypotension requiring the initiation of vasopressor support to maintain hemodynamic stability. Blood cultures prelim positive for both Staph aureus and group G strep on 09/06. TTE ordered. Continue IV vancomycin and Zosyn for now. Initiated on IV steroids and scheduled DuoNebs on 09/05. Wean supplemental oxygen as able. Appreciate further ID recommendations. 2. Metastatic lung cancer with recent radiation therapy ? Follows with outpatient oncology and radiation oncology. See quick note for further details on cancer history. In short, patient was recently initiated on radiation therapy for metastases to T6 and T7. It appears he completed 3 of 5 rounds of radiation that were planned for this. Has history of resection of cancer in [place] in 2017 and radiation therapy of cancer in [place] in 2023. Case management following as below. Patient is certainly an appropriate palliative care candidate at this time and pending clinical course, may be appropriate for hospice care. Will follow closely. 3. Acute on chronic debility ? PT/OT/case management following. Patient lives at home alone and appears to have poor social support. Appreciate therapy and case management recommendations. 4. Acute on chronic anemia ? Hemoglobin 7.2 on admit, dropped to 6.8 on hospital day 2. Hemoglobin in June was 11 and that appeared to be his baseline. In [facility] records, hemoglobin 9.7 on CBC from 08/21. Patient denies change in bowel movements. Ironstudies notably with high ferritin consistent with anemia of chronic disease. Transfuse 1 unit of blood with repeat hemoglobin 7.8 on morning of 09/06. EGD on09/06 was unremarkable. Will de-escalate to p.o. PPI daily. Continue to monitorCBC daily. Appreciate further GI recs. 5. Concern for malnutrition ? Nutrition following. BMI 17 on admit. However per nutrition, did not meet criteria for malnutrition. Supplements of Ensure clear and Ensure plus high-protein will be added to meals. Appreciate further nutrition recommendations. Chronic medical conditions: ? BPH with obstructive symptoms: Patient with significant urinary retention on admission relieved with straight cath. Will continue to monitor with bladder scans as needed and can consider Hollis catheterization if retaining. Continue home Flomax. ? History of CAD with CABG, hypertension, hyperlipidemia: Had CABG back in 2016. Hypotensive on admit as above. Continue home statin. Restarted home aspirin on 09/06. Holding home beta-yajaira and Lasix for now. ? Type 2 diabetes mellitus with diabetic neuropathy: Continue Humalog 75-25 mix at 15 units twice daily along with sliding scale insulin with meals, adjust as needed. Continue home gabapentin. ? Anxiety/depression: Continue home paroxetine and Ativan as needed. ? GERD: Treating with p.o. PPI daily as above. DVT prophylaxis: Lovenox CODE STATUS: Full code, verified Expected disposition: TBD Total clinical time spent by myself addressing the patient's medical issues, reviewing all the data, and collaborating with patient's care team: 35 minutes. Charges/Coding Visit Charges Inpatient E&M: 71850 Subs Hosp L2 09/06/24 1956 <Electronically signed by Stanton Ortega DO> Cosigner Signature (if applicable): CC: ~ Signed [facility] Work Phone: [phone]) 828-469006-25-2025 Progress note Author Addy Nelson [facility] Note Date/Time September 06, 2024 1:26 pm [facility] Medical Records Department [address] [place] [address] Progress Note - Court Reporter 09/06/24 0937 MR#: [id number] Acct: [id number] Name: REY MEAD Rep #:[id number] : 1955 69 From: Addy Nelson DO PCP: Dr. Angelica Saleh MD Status:ADM IN Location: [place] [address] Assessment & Plan Assessment/Plan (1) Sepsis: (2) Acute hyponatremia: (3) Acute hypokalemia: (4) Weakness: (5) Anemia: (6) COPD (chronic obstructive pulmonary disease): QUALIFIERS: COPD type: unspecified COPD Qualified Code(s): J44.9 - Chronic obstructive pulmonary disease, unspecified PLAN: Plan RECOMMENDATIONS: 1. Continue empiric antimicrobials as ordered. 2. Continue to monitor blood counts and transfuse if hemoglobin drops below 7 g/dL. 3. Continue scheduled bronchodilators and steroids. 4. PPI therapy twice daily. 5. Encourage incentive spirometer use and mobilize patient as tolerated. 6. Will sign off from a critical care perspective. Please call with any additional questions. IMPRESSIONS: 1. Septic shock Resolved. Clinical concern for left upper lobe pneumonia as precipitating etiology. The patient ultimately developed fluid refractory hypotension, which required the initiation of vasopressor support to maintain hemodynamic stability. The patient has since been weaned from vasopressor support and remains hemodynamically stable. Plan to continue antimicrobials as ordered. 2. Acute on chronic anemia Continue to monitor H&H and transfuse if hemoglobin drops below 7 g/dL. Continue PPI therapy as ordered. Gastroenterology is following with tentative plans for endoscopic evaluation. 3. History of COPD/unspecified lung cancer amidst radiation treatment/obstructive sleep apnea on CPAP Agree with continuing scheduled bronchodilators and IV steroids as ordered. Continue nocturnal CPAP therapy per home regimen. 4. History of coronary artery disease status post CABG/diabetes mellitus/GERD/anxiety/BPH Complicates care, management, recovery and prognosis. Continue supportive measures as noted above. This note was generated with [employer] dictation software. It may contain incorrectwords, spelling, and punctuation that were not noted in checking the note beforesigning. Subjective Subjective The patient was seen and examined at the bedside this morning. Events from the last 24 hours have been reviewed. The patient is currently afebrile, hemodynamically stable and maintaining appropriate oxygen saturations on 2 L/minvia nasal cannula. The patient is documented to be overall net +4.3 L for the hospitalization. White blood cell count is normal. Hemoglobin has improved to 7.8 g/dL, following transfusion of 1 unit of packed red blood cells. Creatinineis within normal limits. Objective Data Objective Data The patient's most recent lab work, culture data and imaging studies have all been personally reviewed. Preliminary blood culture dated September 04 was positive for Staph aureus. Sputum culture is currently pending. Vital Signs: Vital Signs Temp Pulse Resp BP Pulse Ox O2 Del Method O2 Flow Rate 97.1 F L 90 20 H 137/72 H 95 Nasal Cannula 2 09/06/24 06:40 09/06/24 07:58 09/06/24 07:58 09/06/24 06:40 09/06/24 07:58 09/06/24 07:58 09/06/24 07:58 Oxygen Flow Rate (L/min) 2 Oxygen Delivery Method Nasal Cannula Weight: 183 lb 13.848 oz Body Mass Index (BMI) 27.1 Intake & Output: Intake and Output for Last 24 Hours 09/04/24 09/05/24 09/06/24 23:59 23:59 23:59 Intake Total 4183.2 / 4183.2 3580.13 / 3580.13 1730.42 / 1730.42 Output Total 1700 / 1700 2850 / 2850 580 / 580 Balance 2483.2 / 2483.2 730.13 / 730.13 1150.42 / 1150.42 Lab / Micro Data Attestation: I reviewed the patient's lab results. 09/06/24 05:42 09/06/24 05:42 Labs: Laboratory Results - last 24 hr 09/05/24 06:14: Hemoglobin A1c 7.7 H, Phosphorus 2.2 L, Magnesium 1.3 L 09/05/24 07:30: Blood Type A POSITIVE, Antibody Screen NEGATIVE, Crossmatch See Detail 09/05/24 12:10: POC Glucose 181 H 09/05/24 16:23: POC Glucose 256 H 09/05/24 21:39: POC Glucose 287 H 09/06/24 05:42: WBC 8.3, RBC 2.82 L, Hgb 7.8 L, Hct 24.8 L, MCV 87.9, MCH 27.7, MCHC 31.5 L, RDW Std Deviation 55.7 H, RDW Coeff of Jaquan 17.2 H, Plt Count 179, MPV 9.8, PT 17.5 H, INR 1.4, APTT 39.0 H, Sodium 137, Potassium 3.6, Chloride 98, Carbon Dioxide 26.5, Anion Gap 12, BUN 8, Creatinine 0.69 L, Estim Creat Clear Calc 88.38, Est GFR (MDRD) Non-Af 101, BUN/Creatinine Ratio 10.9, Glucose 248 H, Calcium 7.7, Vancomycin Trough 8.6 09/06/24 06:16: POC Glucose 219 H Micro: Microbiology 09/04/24 11:00 Blood Culture (Wb) - Anticubital Left Blood Culture - Preliminary Staphylococcus aureus 09/04/24 11:00 Blood Culture (Wb) - Anticubital Left Blood Culture - Preliminary 09/05/24 06:33 Sputum, Expectorated/Coughed Gram Stain - Final 09/05/24 06:33 Sputum, Expectorated/Coughed Respiratory Culture - Final 09/04/24 19:26 Stool Enteric Bacteriology - Final 09/04/24 19:26 Stool Clostridioides difficile (PCR) - Final 09/04/24 11:06 Mucosa - Nose SARS-CoV-2, Influenza & RSV (PCR) - Final Physical Exam Const alert, oriented x3 and no apparent distress General Appearance: cooperative HEENT normocephalic and head/scalp atraumatic Eyes PERRL, EOMs intact bilaterally and conjunctivae normal Neck supple General: trachea midline Chest inspection of chest normal Resp normal respiratory effort and no use of accessory muscles Effort and Inspection: able to speak in complete sentences Auscultation: diminished lung sounds Cardio regular rate and regular rhythm GI normal to inspection, nondistended, normoactive bowel sounds Extremity no clubbing, cyanosis or edema Skin no rashes or lesions noted Neuro CN's II-XII intact bilaterally, moves all extremities and no focal motor deficits Psych cooperative and affect normal Charges/Coding Visit Charges Inpatient E&M: 57240 Subs Hosp L2 09/06/24 1326 <Electronically signed by Addy Nelson DO> Cosigner Signature (if applicable): CC: ~ Signed [facility] Work Phone: [phone]) 640-812106-25-2025 Consult note Author [facility]iff [facility] Note Date/Time September 06, 2024 1:24 pm [facility] Medical Records Department [address] [place] [address] Anesthesia Postop Eval I 09/06/24 1240 MR#: [id number] Acct: [id number] Name: REY MEAD Rep #:[id number] : 1955 69 From: Tiff Oconnell CRNA PCP: Dr. Angelica Saleh MD Status:ADM IN Y Race: C Location: [place] [address] Anesthesia: Postop Eval I Current Vital Signs Temperature: 97 F Pulse Rate: 96 Blood Pressure: 90/72 Respiratory Rate: 18 Pulse Ox: 98 Assessment Airway patent: Yes Spontaneous unlabored respirations: Yes nausea: No Vomiting: No Anesthesia Complication: No Fluid Hydration Crystalloid volume administer (ml): 500 Total IV fluid infused: 500 Progress Note Anesthesia document: Postop Eval 1 completed: Yes 09/06/24 1324 <Electronically signed by Tiff betancur CRNA> Date _ Tiff Oconnell CRNA Cosigner Signature: Date CC: ~ Signed [facility] Work Phone: [phone] Consult note Author Tiff Oconnell [facility] Note Date/Time September 06, 2024 1:24 pm [facility] Medical Records Department [address] [place] [address] Anesthesia Postop Eval II 09/06/24 1324 MR#: [id number] Acct: [id number] Name: REY MEAD Rep #:[id number] : 1955 69 From: Tiff Oconnell CRNA PCP: Dr. Angelica Saleh MD Status:ADM IN Y Race: C Location: [address] Anesthesia Postop Eval I Sum Postop Eval Completion status Anesthesia document: Postop Eval 1 completed: Yes Anesthesia Postop Eval I Summary Anesthesia Postop Eval I Summary: Anesthesia Postop Eval I: Assessment Summary Airway patent Yes 09/06/24 13:23 [email or web address] BASE [email or web address] Spontaneous unlabored Yes 09/06/24 13:23 SKI BASE [email or web address].CSIR respirations Mental status nausea No 09/06/24 13:23 SKI BASE [email or web address].CSIR Vomiting No 09/06/24 13:23 SKI BASE [email or web address].CSIR Anesthesia Postop Eval I: Fluid Summary Crystalloid volume administer 500 09/06/24 13:23 SKI BASE [email or web address].CSIR (ml) Colloids volume administered ( ml) Blood Product volume administered (ml) Total IV fluid infused 500 09/06/24 13:23 SKI BASE [email or web address].CSIR Anesthesia Postop Eval I: Summary Notes Anesthesia Complication No 09/06/24 13:23 [email or web address] BASE [email or web address] Anesthesia Complication Comment: Post-operative progress note Anesthesia: Postop Eval II Evaluation Mental status: Awake Pain Level: 0 nausea: No Vomiting: No 09/06/24 1324 <Electronically signed by Tiff betancur CRNA> Date _ Tiff Oconnell CRNA Cosigner Signature: Date CC: ~ Signed [facility] Work Phone: [phone] Progress note Author Wild Friend [facility] Note Date/Time September 06, 2024 12:0 9pm [facility] Medical Records Department [address] [place] [address] Progress Note 09/06/24 1207 MR#: [id number] Acct: [id number] Name: REY MEAD Rep #:[id number] : 1955 69 From: Wild Gallagher DO PCP: Dr. Angelica Saleh MD Status:ADM IN Location: [address] Progress Note Patient has been n.p.o. for upper endoscopy today to evaluate his worsening irondeficiency anemia. Physical Exam Const alert, oriented x3, no apparent distress and healthy appearing General Appearance: cooperative GI normal to inspection, nondistended, normoactive bowel sounds, soft to palpation,non-tender and non-distended Percussion: normal to percussion Rectal Exam: deferred Assessment & Plan Assessment/Plan (1) Anemia: PLAN: Patient seems to have a microcytic iron deficiency anemia and a normocyticanemia. He should undergo an EGD and possible colonoscopy plus or minus capsuleendoscopy to evaluate his GI tract for signs of acute on chronic blood loss anemia. Keep n.p.o. past midnight. He was explained alternatives, risk and benefits include not withstanding bleeding, infection, sepsis, perforation, needfor more surgery . He will have an ASA of 3. Visit Charges Inpatient E&M: 25181 Subs Hosp L2 09/06/24 1209 <Electronically signed by Wild Gallagher DO> Wild Gallagher DO Cosigner Signature (if applicable): CC: ~ Signed [facility] Work Phone: [phone] Consult note Author Ronnie Lei [facility] Note Date/Time September 06, 2024 11:3 9am [facility] Medical Records Department [address] [place] [address] Pre-Anesthesia Evaluation 09/06/24 1129 MR#: [id number] Acct: [id number] Name: REY MEAD Rep #:[id number] : 1955 69 From: Ronnie Lei MD PCP: Dr. Angelica Saleh MD Status:ADM IN Y Race: C Location: [place] [address] 7-1 ASA Classification* ASA Classification ASA Classification: 3 (ELLEN, lung cancer on radiation, COPD, BPH, Diabetes, GERD,CAD, hx DVT, hx CABG) Assessment & Plan Anesthesia* Anesthesia Assessment Anesthesia Assessment: Discussed sedation and/or anesthesia options, risks, benefits, and alternatives with patient/parents/legal guardian/POA. Questions invited. The patient/parents/legal guardian/POA seems to understand and agrees to proceedwith anesthesia plan. Reviewed the physical assessment, medical history, allergy history and patient home medications list prior to surgery/procedure/anesthetic and documented any changes. Performed airway and anesthesia risk assessments. Farxiga held 3 days, PO semaglutide held >24 hours Anesthesia Type Anesthesia Type: MAC History Source History Obtained from:: Patient and Chart Anesthesia Focused Assessment* Temperature: 98.1 F Pulse Rate: 92 Blood Pressure: 121/76 Respiratory Rate: 18 Pulse Ox: 97 Oxygen Delivery Method: Nasal Cannula Oxygen Flow Rate (L/min): 2 Airway Assessment Mouth opens: >3 cm Mallampati Score: II Teeth Condition: Missing (edentulous) Neck Range of motion (ROM): Full ROM Labs Anesthesia Preop lab: CBC WBC 8.3 K/mm3 (4.4-11.0) 09/06/24 05:42 09/06/24 RBC 2.82 M/mm3 (4.6-6.2) L 09/06/24 05:42 09/06/24 Hgb 7.8 g/dL (13.0-16.5) L 09/06/24 05:42 09/06/24 Hct 24.8 % (40-54) L 09/06/24 05:42 09/06/24 Plt Count 179 K/mm3 (150-450) 09/06/24 05:42 09/06/24 CHEMISTRY Potassium 3.6 mmol/L (3.3-5.1) 09/06/24 05:42 09/06/24 Sodium 137 mmol/L (133-145) 09/06/24 05:42 09/06/24 Magnesium 1.3 mg/dL (1.5-2.2) L 09/05/24 06:14 09/05/24 Phosphorus 2.2 mg/dL (2.7-4.5) L 09/05/24 06:14 09/05/24 BUN 8 mg/dL (4-19) 09/06/24 05:42 09/06/24 Creatinine 0.69 mg/dL (0.70-1.20) L 09/06/24 05:42 Glucose 248 mg/dL (70-99) H 09/06/24 05:42 09/06/24 POC Glucose 219 mg/dL (74-106) H 09/06/24 06:16 09/06/24 TSH 0.767 uIU/mL (0.300-4.200) 06/06/24 09:07 05/14 08/06 COAG PT 17.5 SECONDS (11.7-14.9) H 09/06/24 05:42 08/14 08/06 Pre-Assessment Diagnosis/Proposed Procedure Planned Operative Procedure(s): EGD Anesthesia History 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 When Was Last Pacemaker Check QUESTION #4 FULL TEXT: You/Your Family Experience fever (hyperthermia) with Anesthesia Last Oral Intake Last Oral intake: Last Oral Intake NPO since 09/06/24 01:22 Meds taken in AM with sips of No 09/06/24 01:22 water? 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 Has anyone observed you stop breathing during sleep? STOP Results Positive 09/04/24 16:22 QUESTION #5 FULL TEXT : Do you snore loudly (louder than talking or can be heard through closed doors)? 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 Specify any problems Hx of Preganancy in last 3 N/A 09/04/24 16:22 Months Nurse Filling Out Transfusion DSLOAN 09/04/24 16:22 & Questions: Date: 09/04/24 09/04/24 16:22 Time: :09/04/24 16:22 Patient unable to answer at this time (ie. confused, unrespo /Reproduction History /Reproductive History - soccer commentator: /Reproductive Hx- soccer commentator Hx Now No 09/06/24 01:20 Gestational Age (in weeks): EDC: Hx Hx Para Hx Section SAB No 09/06/24 01:20 Active Medications Active Medications: Current Medications Generic Name Dose Route Start Last Admin Trade Name Freq PRN Reason Stop Dose Admin Acetaminophen 650 mg 09/04/24 16:03 09/05/24 18:47 Acetaminophen 325 Mg Tablet PO 650 mg Q6H PRN PRN Administration Pain 1-10 Or Fever >100.7 Albuterol Sulfate 2.5 mg 09/04/24 16:03 Albuterol 2.5 Mg/3 Ml Vial.Neb. INHALATION Q2H PRN PRN SOB &/OR WHEEZING Albuterol/Ipratropium 3 ml 09/05/24 10:15 09/06/24 07:58 Ipratropium/Albuterol Sulfate 3 Ml Ampul.Neb INHALATION 3 ml Q4HWA.RT ELIUD Administration Aspirin 81 mg 09/05/24 08:00 09/05/24 09:24 Aspirin E.C. 81 Mg Tablet PO Not Given BREAKFAST ELIUD Atorvastatin Calcium 20 mg 09/04/24 22:00 09/05/24 21:44 Atorvastatin Calcium 20 Mg Tablet PO 20 mg QHS ELIUD Administration Budesonide 0.5 mg 09/04/24 16:30 09/06/24 07:58 Budesonide Respules 0.5 Mg/2 Ml Ampul.Neb. INHALATION 0.5 mg Q12H.RT ELIUD Administration Calamine/Phenol 1 applic 09/04/24 18:00 09/06/24 09:30 Menthol/Lanolin/Calamine/Znox 113 Gm Tube TOPICAL 1 applic 4X/DAY ELIUD Administration Protocol Gabapentin 300 mg 09/04/24 22:00 09/05/24 21:48 Gabapentin 300 Mg Capsule PO 300 mg QHS ELIUD Administration Glucagon 1 mg 09/04/24 16:03 Glucagon 1 Mg/Ml Syringe IM X1 PRN HYPOGLYCEMIA Protocol Dextrose 250 mls @ 0 mls/hr 09/04/24 16:03 Dextrose 10%-Water IV .Q0M PRN HYPOGLYCEMIA Protocol As Directed Piperacillin Sod/Tazobactam 50 mls @ 12.5 mls/hr 09/04/24 22:00 09/06/24 09:47 Sod 3.375 gm/ Sodium Chloride IV Infused Q8 ELIUD Infusion Vancomycin IV-PHARMACY TO DOSE 500 mls @ 250 mls/hr 09/04/24 16:03 1 each/ Sodium Chloride IV X1 PRN Rx to Dose Protocol Sodium Chloride 250 mls @ 15 mls/hr 09/04/24 16:07 IV .[id number] PRN Saline Flush Sodium Chloride 250 mls @ 15 mls/hr 09/04/24 16:07 IV .[id number] PRN Additional IVPB Infusion Sodium Chloride 1,000 mls @ 75 mls/hr 09/05/24 08:20 09/06/24 10:52 IV 09/06/24 12:00 0 mls/hr .[id number] ELIUD Infusion Pantoprazole Sodium 40 mg/ 100 mls @ 300 mls/hr 09/05/24 10:00 09/06/24 10:13 Sodium Chloride IV Infused Q12 ELIUD Infusion Vancomycin HCl 1,000 mg in 200 mls @ 200 mls/hr 09/06/24 07:00 09/06/24 09:48 Vancomycin IV Infused Q12H ELIUD Infusion Magnesium Sulfate 4 gm in 100 mls @ 25 mls/hr 09/06/24 08:30 09/06/24 10:52 IV 09/06/24 12:29 0 mls/hr X1 ONE Infusion Lactated Ringer's 1,000 mls @ 15 mls/hr 09/06/24 11:15 09/06/24 11:16 IV 15 mls/hr .Q48H ELIUD Administration Insulin Human Lispro 0 unit 09/04/24 16:03 09/06/24 07:10 Insulin Lispro 100 Unit/Ml Insuln.Pen SC Not Given ACHS [facility] Protocol Insulin Lispro Protam/Lispro Human 15 unit 09/06/24 08:00 09/06/24 09:46 Insulin Human /25 Kwickpen SC Not Given BIDCM ELIUD Lorazepam 0.5 mg 09/04/24 16:03 09/04/24 20:06 Lorazepam 0.5 Mg Tablet PO 0.5 mg TID PRN Administration ANXIETY Melatonin 10 mg 09/04/24 16:03 09/04/24 20:07 Melatonin 3 Mg Tablet PO 10 mg QHS PRN PRN Administration INSOMNIA Methylprednisolone 60 mg 09/05/24 14:00 09/06/24 05:24 Methylprednisolone 125 Mg/2 Ml Vial IV 60 mg Q8 ELIUD Administration Ondansetron HCl 4 mg 09/04/24 16:03 09/04/24 22:31 Ondansetron 4 Mg/2 Ml Vial IV 4 mg Q8H PRN PRN Administration NAUSEA/VOMITING Oxycodone HCl 5 mg 09/04/24 16:03 09/06/24 01:40 Oxycodone 5 Mg Tablet PO 5 mg Q6H PRN PRN Administration pain 1-10 Paroxetine HCl 10 mg 09/05/24 10:00 09/05/24 09:42 Paroxetine 10 Mg Tablet PO 10 mg DAILY ELIUD Administration Potassium Phos/Sodium Phos 1 packet 09/06/24 11:00 Na Biphos/Potassium Phosphate Packet PO TIDAC ELIUD Senna/Docusate Sodium 2 tablet 09/04/24 16:03 Senna/Docusate Sodium 1 Tablet PO BID PRN PRN Constipation Sodium Chloride 10 - 40 ml 09/04/24 16:07 09/06/24 07:12 0.9% Saline Lock 10 Ml Syringe IV 10 ml UD PRN Administration SALINE FLUSH Tamsulosin HCl 0.4 mg 09/05/24 10:00 09/05/24 09:42 Tamsulosin Hcl 0.4 Mg Capsule PO 0.4 mg DAILY ELIUD Administration Vancomycin Protocol 1 lab 09/07/24 17:30 Vancomycin Trough/Random Due MC 09/07/24 19:30 DAILY ELIUD PFSH Medical History Alcohol use Excessive bleeding History of echocardiogram History of stress test Cardiology follow-up encounter Chest pain Vitamin D deficiency Left adrenal mass CAD (coronary artery disease) Blind Cancer Depression Anxiety Diabetes Prostate disease DVT (deep venous thrombosis) High cholesterol Easy bruising Umbilical hernia Neuropathy Injury of head and neck Syncope Former smoker On home oxygen therapy CPAP (continuous positive airway pressure) dependence COPD (chronic obstructive pulmonary disease) Shortness of breath on exertion History of edema Hypertension Home Medications ?Medication ?Instructions ?Recorded ?Last Taken ?Type albuterol sulfate 2.5 mg/3 mL 2.5 mg inhalation DAILY 01/08/23 09/03/24 History (0.083 %) solution for nebulization albuterol sulfate 90 mcg/actuation 2 puff inhalation P RN PRN 01/08/23 05/30/24 History aerosol inhaler shortness of breath or wheez ing aspirin 81 mg tablet,delayed 81 mg PO DAILY 01/08/23 0 09/04/24 History release atorvastatin 20 mg tablet 20 mg PO QHS 01/08/23 History dapagliflozin propanediol 5 mg 5 mg PO DAILY 01/08/23 09/03/24 History tablet (Farxiga) fluticasone fur. 100 mcg-umeclid 1 inh inhalation GURU Y 01/08/23 09/03/24 History 62.5 mcg-vilant 25 mcg inhalat.powder (Trelegy Ellipta) furosemide 40 mg tablet 40 mg PO DAILY 01/08/2308/14 History paroxetine HCl 10 mg tablet 10 mg PO DAILY 01/08/23 History pregabalin 150 mg capsule 150 mg PO DAILY 01/08/23 History roflumilast 250 mcg tablet 250 mcg PO DAILY 01/08/23 0 09/04/24 History tamsulosin 0.4 mg capsule 0.4 mg PO Q24H 01/08/2308/14 History metformin 500 mg tablet,extended 1,500 mg PO QHS 03/2209/04/24 History release 24hr (osmotic) gabapentin 300 mg capsule 300 mg PO QHS 05/10/2409/03 History lorazepam 1 mg tablet 1 mg PO TID #90 tabs 5 Unknown Rx esomeprazole magnesium 40 mg 40 mg PO DAILY 09/04/24 0 09/03/24 History capsule,delayed release insulin lispro protamine-lispro 15 unit subcut BIDCM 0 09/04/24 09/04/24 History 100 unit/mL (75-25) subcutaneous pen (Humalog Mix 75-25 KwikPen) metoprolol succinate 25 mg 25 mg PO DAILY 09/04/24 History tablet,extended release 24 hr oxycodone 5 mg tablet 5 - 10 mg PO Q6H PRN PRN arabella n 09/04/24 Unknown History prednisone 5 mg tablet 15 mg PO DAILY 09/04/24 Unkn own History semaglutide 7 mg tablet (Rybelsus) 7 mg PO DAILY 09/0409/04/24 History vitamin B complex (Complex B-100 1 tab PO DAILY 09/04/24 History tablet,extended release) Allergy/AdvReac Type Severity Reaction Status Date / Time No Known Allergies Allergy Verified 07/24/24 10:03 Family History Mother Cancer LUNG Heart disease Father Cancer lung Sister Cancer lung Heart disease Sister Cancer lung Sister Cancer lung Sister Colon cancer Surgical History Hx of fracture of leg Hx of fracture of foot History of bronchoscopy Hx of biopsy History of lobectomy of lung Hx of oral surgery History of open heart surgery (05/08/15) Social History household members: none housing: other 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 Physical Exam Const alert, oriented x3 and average body habitus Resp normal air movement and clear to auscultation bilaterally Effort and Inspection: decreased respiratory effort Cardio regular rate, regular rhythm, no murmurs and diaphoretic 09/06/24 1136 <Electronically signed by Ronnie Lei MD> Date _ Ronnie Lei MD Cosigner Signature: Date CC: ~ Signed [facility] Work Phone: [phone]) 814-926606-25-2025 Procedure [facility] 09-06-2024 Procedure [facility]06-25-2025 Consult note Author Eliseo Coyne [facility] Note Date/Time September 06, 2024 9:12 am [facility] Medical Records Department [address] [place] [address] [id number] Pharmacokinetic/Renal -Consult 09/06/24 0708 MR#: [id number] Acct: [id number] Name: REY MEAD Rep #:[id number] : 1955 69 From: Eliseo lockhart PCP: Dr. Angelica Saleh MD Status:ADM IN Y Location: [place] [address] Consult Antibiotic Management Pharmacy has been consulted to manage selected antibiotic: Vancomycin Type of Intervention Type of Consult: Follow-up Prior Doses of Antibiotics Prior Doses of Antibiotics Received/Current Regimen: current dose is 500mg IV q12h Labs Labs: Sodium 137 mmol/L (133-145) 09/06/24 05:42 Potassium 3.6 mmol/L (3.3-5.1) 09/06/24 05:42 Chloride 98 mmol/L (98-108) 09/06/24 05:42 Carbon Dioxide 26.5 mmol/L (21.0-32.0) 09/06/24 05:42 Anion Gap 12 (5-15) 09/06/24 05:42 BUN 8 mg/dL (4-19) 09/06/24 05:42 Creatinine 0.69 mg/dL (0.70-1.20) L 09/06/24 05:42 Est GFR (MDRD) Non-Af 101 (>60) 09/06/24 05:42 BUN/Creatinine Ratio 10.9 RATIO (10-20) 09/06/24 05:42 Glucose 248 mg/dL (70-99) H 09/06/24 05:42 Vancomycin Trough 8.6 ug/mL (5.0-15.0) 09/06/24 05:42 Microbiology Microbiology: Microbiology 09/05/24 06:33 Sputum, Expectorated/Coughed Gram Stain - Final 09/05/24 06:33 Sputum, Expectorated/Coughed Respiratory Culture - Final 09/04/24 11:00 Blood Culture (Wb) - Anticubital Left Blood Culture - Preliminary 09/04/24 11:00 Blood Culture (Wb) - Anticubital Left Blood Culture - Preliminary 09/04/24 19:26 Stool Enteric Bacteriology - Final 09/04/24 19:26 Stool Clostridioides difficile (PCR) - Final 09/04/24 11:06 Mucosa - Nose SARS-CoV-2, Influenza & RSV (PCR) - Final Dosing Weight Weight used for dosin.4 kg Estimated Creatinine Clearance Estimated Creatinine Clearance: 88 ml/min Goal Trough Goal Trough: 15-20 mcg/mL Pharmacy Plan for Drug Dosing Pharmacy Plan for Drug Dosing: VANCOMYCIN LEVEL RECEIVED Current Vancomycin Dose: 500MG Q12H Number of Doses Received: 1250MG X1, 1000MG X1, 500MG X1 Vancomycin Level: 8.6 Hours Since Last Dose: 12 Renal Function: SCR 0.69, CRCL 88 Renal Function Trend: SCR WAS 0.69 AND 0.94 PREVIOUS 2 DAYS Vancomycin Plan/Comments: TROUGH BELOW GOAL. INCREASE DOSE TO 1000MG Q12H. REPEAT TROUGH BEFORE 4TH NEW DOSE. Pending Level: 09/07/24 18:30 Pharmacy Service will continue to monitor and adjust dosing as required. Follow-Up Labs Follow-Up Labs: Trough: Vancomycin Date/Time Labs Ordered Labs to be done on [date and time ordered]: 09/07/24 18:30 09/06/24 0710 <Electronically signed by Eliseo Trinidad erg> Date _ Eliseo Coyne 09/06/24 0912 <Electronically signed by Stanton duarte DO> Cosigner Signature (if applicable): Date Stanton Ortega DO CC: ~ Signed [facility] Work Phone: [phone]) 495-297406-25-2025 Telephone encounter Note* Telephone Encounter - Elena Goldsmith - 09/06/2024 10:49 AM EDT Received call today to reschedule 09/05 appt with Angie. Stating that patient may be discharged elise couple of days. Patient is scheduled for 09/12. Caller requested to inform Dr. Dunaway as well. [facility] Work Phone: [phone]) 790-311306-25-2025 Miscellaneous Notes* Telephone Encounter - Elena Goldsmith - 09/06/2024 10:49 AM EDT Received call today to reschedule 09/05 appt with Angie. Stating that patient may be discharged elise couple of days. Patient is scheduled for 09/12. Caller requested to inform Dr. Dunaway as well. * Telephone Encounter - Shilpi Ware RN - 09/04/2024 4:12 PM EDT Patient admitted to [facility]. Will follow for discharge and schedule follow up with Dr. Duncan. Keiry Ware RN [facility] Progress note Author Nell Hicks [facility] Note Date/Time September 05, 2024 8:21 pm [facility] Medical Records Department [address] [place] [address] Progress Note - Hospitalist 09/05/242020 MR#: [id number] Acct: [id number] Name: REY MEAD Rep #:[id number] : 1955 69 From: Nell Hicks MD PCP: Dr. Angelica Saleh MD Status:ADM IN Location: ICU ICU01-1 Hospitalist Note Changed level or care to PCU status given stable throughout the day. 09/05/242020 <Electronically signed by Nell Hicks MD> Cosigner Signature (if applicable): CC: ~ Signed [facility] Work Phone: [phone] 300-271306-24-2025 Consult note Author Wild Friend [facility] Note Date/Time September 05, 2024 6:04 pm [facility] Medical Records Department [address] [place] [address] Consultation - GI 09/05/24 1759 MR#: [id number] Acct: [id number] Name: REY MEAD Rep #:[id number] : 1955 69 From: Wild Gallagher DO PCP: Dr. Angelica Saleh MD Status:ADM IN Location: ICU ICU01-1 HPI Consult Data Date of Consult: 09/05/24 HPI Narrative Reason for Consultation: Anemia HPI Narrative: 69-year-old male with history of ELLEN, lung cancer on radiation, COPD, BPH, diabetes, GERD, anxiety, CAD who presented to [facility] ED 09/06/2024 via EMS after a fall today. His friend was taking him to his radiation appointment as he is receiving radiation therapy on his right lung andwhen he was getting out of the truck he was transferring to the wheelchair and his legs gave out. Patient diagnosed with concerns for sepsis to the ICU. He has been diagnosed with pneumonia and septic shock. He is getting better from that standpoint and has been afebrile and normotensive today. Always I was asked to see him due to decreasing hemoglobin down to 6.8. Patient has not seen any signs of GI bleeding [facility] Medical History Alcohol use Excessive bleeding History of echocardiogram History of stress test Cardiology follow-up encounter Chest pain Vitamin D deficiency Left adrenal mass CAD (coronary artery disease) Blind Cancer Depression Anxiety Diabetes Prostate disease DVT (deep venous thrombosis) High cholesterol Easy bruising Umbilical hernia Neuropathy Injury of head and neck Syncope Former smoker On home oxygen therapy CPAP (continuous positive airway pressure) dependence COPD (chronic obstructive pulmonary disease) Shortness of breath on exertion History of edema Hypertension Home Medications ?Medication ?Instructions ?Recorded ?Last Taken ?Type albuterol sulfate 2.5 mg/3 mL 2.5 mg inhalation DAILY 01/08/23 09/03/24 History (0.083 %) solution for nebulization albuterol sulfate 90 mcg/actuation 2 puff inhalation P RN PRN 01/08/23 05/30/24 History aerosol inhaler shortness of breath or wheez ing aspirin 81 mg tablet,delayed 81 mg PO DAILY 01/08/23 0 09/04/24 History release atorvastatin 20 mg tablet 20 mg PO QHS 01/08/23 History dapagliflozin propanediol 5 mg 5 mg PO DAILY 01/08/23 09/03/24 History tablet (Farxiga) fluticasone fur. 100 mcg-umeclid 1 inh inhalation GURU Y 01/08/23 09/03/24 History 62.5 mcg-vilant 25 mcg inhalat.powder (Trelegy Ellipta) furosemide 40 mg tablet 40 mg PO DAILY 01/08/2308/14 History paroxetine HCl 10 mg tablet 10 mg PO DAILY 01/08/23 History pregabalin 150 mg capsule 150 mg PO DAILY 01/08/23 History roflumilast 250 mcg tablet 250 mcg PO DAILY 01/08/23 0 09/04/24 History tamsulosin 0.4 mg capsule 0.4 mg PO Q24H 01/08/2308/14 History metformin 500 mg tablet,extended 1,500 mg PO QHS 03/2209/04/24 History release 24hr (osmotic) gabapentin 300 mg capsule 300 mg PO QHS 05/10/2409/03 History lorazepam 1 mg tablet 1 mg PO TID #90 tabs 5 Unknown Rx esomeprazole magnesium 40 mg 40 mg PO DAILY 09/04/24 0 09/03/24 History capsule,delayed release insulin lispro protamine-lispro 15 unit subcut BIDCM 0 09/04/24 09/04/24 History 100 unit/mL (75-25) subcutaneous pen (Humalog Mix 75-25 KwikPen) metoprolol succinate 25 mg 25 mg PO DAILY 09/04/24 History tablet,extended release 24 hr oxycodone 5 mg tablet 5 - 10 mg PO Q6H PRN PRN arabella n 09/04/24 Unknown History prednisone 5 mg tablet 15 mg PO DAILY 09/04/24 Unkn own History semaglutide 7 mg tablet (Rybelsus) 7 mg PO DAILY 09/0409/04/24 History vitamin B complex (Complex B-100 1 tab PO DAILY 09/04/24 History tablet,extended release) Allergy/AdvReac Type Severity Reaction Status Date / Time No Known Allergies Allergy Verified 07/24/24 10:03 Family History Mother Cancer LUNG Heart disease Father Cancer lung Sister Cancer lung Heart disease Sister Cancer lung Sister Cancer lung Sister Colon cancer Surgical History Hx of fracture of leg Hx of fracture of foot History of bronchoscopy Hx of biopsy History of lobectomy of lung Hx of oral surgery History of open heart surgery (05/08/15) Social History household members: none housing: other 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 status: retired current occupation: [employer] Smoking Status: Former smoker quit date: 03/15/15 pack-years: 120 alcohol intake: current alcohol intake frequency: a few times a month Alcohol type: beer substance use type: does not use what type of physical activity do you participate in: none seatbelt use: always do you feel safe at home: Yes ROS Constitutional Constitutional: Denies fatigue, fever(s), poor appetite, weight gain or weight loss Gastrointestinal Gastrointestinal: Denies belching, bloating, change in bowel habits, change in stool character, chewing difficulty, coffee ground emesis, constipation, cramping, diarrhea, dyspepsia, dysphagia, early satiety, excessive flatus, fecalincontinence, heartburn, hematemesis, hematochezia, hemorrhoids, loose stools, melena, nausea, odynophagia, rectal bleeding, tenesmus, vomiting or weight changes Physical Exam Const alert, oriented x3, no apparent distress and healthy appearing General Appearance: cooperative GI normal to inspection, nondistended, normoactive bowel sounds, soft to palpation,non-tender and non-distended Percussion: normal to percussion Rectal Exam: deferred Lab / Micro Data 09/05/24 06:14 09/05/24 06:14 Labs: Laboratory Results - last 24 hr 09/04/24 11:00: Retic Count 2.23 H, Immature Retic Fraction 17.80 H, Retic Hgb Equivalent 25.2 L 09/04/24 17:50: Lactic Acid 1.1 09/04/24 21:17: POC Glucose 197 H 09/05/24 06:14: WBC 8.1, RBC 2.48 L, Hgb 6.8 L, Hct 22.4 L, MCV 90.3, MCH 27.4, MCHC 30.4 L, RDW Std Deviation 56.8 H, RDW Coeff of Jaquan 17.2 H, Plt Count 160, MPV 10.2, Immature Gran % (Auto) 2.100 H, Neut % (Auto) 87.6 H, Lymph % (Auto) 3.4 L, Meeker % (Auto) 6.7, Eos % (Auto) 0.0, Baso % (Auto) 0.2, Absolute Neuts (auto) 7.1, Absolute Lymphs (auto) 0.28 L, Nucleated RBC % 0, Sodium 131 L, Potassium 3.0 L, Chloride 94 L, Carbon Dioxide 28.0, Anion Gap 9, BUN 4, Creatinine 0.69 L, Estim Creat Clear Calc 66.00, Est GFR (MDRD) Non-Af 101, BUN/Creatinine Ratio 6.4 L, Glucose 222 H, Hemoglobin A1c 7.7 H, Calcium 7.9, Phosphorus 2.2 L, Magnesium 1.3 L, Iron 17 L, TIBC 121 L, Iron Saturation 14.0, Unsaturated IBC 104 L 09/05/24 07:30: Blood Type A POSITIVE, Antibody Screen NEGATIVE, Crossmatch See Detail 09/05/24 12:10: POC Glucose 181 H 09/05/24 16:23: POC Glucose 256 H Micro: Microbiology 09/05/24 06:33 Sputum, Expectorated/Coughed Gram Stain - Final 09/05/24 06:33 Sputum, Expectorated/Coughed Respiratory Culture - Final 09/04/24 11:00 Blood Culture (Wb) - Anticubital Left Blood Culture - Preliminary 09/04/24 11:00 Blood Culture (Wb) - Anticubital Left Blood Culture - Preliminary 09/04/24 19:26 Stool Enteric Bacteriology - Final 09/04/24 19:26 Stool Clostridioides difficile (PCR) - Final Assessment & Plan Assessment/Plan (1) Anemia: PLAN: Patient seems to have a microcytic iron deficiency anemia and a normocyticanemia. He should undergo an EGD and possible colonoscopy plus or minus capsuleendoscopy to evaluate his GI tract for signs of acute on chronic blood loss anemia. Keep n.p.o. past midnight. He was explained alternatives, risk and benefits include not withstanding bleeding, infection, sepsis, perforation, needfor more surgery . He will have an ASA of 3. Charges/Coding Visit Charges Inpatient E&M: 96349 Init Hosp L3 09/05/241803 <Electronically signed by Wild Friend DO> Cosigner Signature (if applicable): CC: Dr. Angelica Saleh MD~ Signed [facility] Work Phone: [phone]) 871-519806-24-2025 Progress note Author Stanton Ortega [facility] Note Date/Time September 05, 2024 2:18 pm [facility] Medical Records Department [address] [place] [address] Progress Note - Hospitalist 09/05/24 1006 MR#: [id number] Acct: [id number] Name: REY MEAD Rep #:[id number] : 1955 69 From: Stanton mir DO PCP: Dr. Angelica Saleh MD Status:ADM IN Location: ICU ICU01-1 Reason for Visit Reason for Visit: Diagnoses Sepsis, unspecified organism (09/04/24) Subjective Subjective Saw patient at bedside this morning. Patient was pale and fatigued appearing but otherwise laying back comfortably in bed, conversing normally and in no acute distress. He denied any acute pain or discomfort. Denied any dark or bloody stools in the past weeks to months. Does report mild wheezing but no shortness of breath at rest. Denies any fevers or chills. No other acute concerns currently. Objective Data Objective Data Vital Signs: Vital Signs Temp Pulse Resp BP Pulse Ox O2 Del Method O2 Flow Rate 100.6 F H 99 23 H 96/44 L 94 Nasal Cannula 2 09/05/24 10:00 09/05/24 10:00 09/05/24 10:00 09/05/24 10:00 09/05/24 10:00 09/05/24 10:00 09/05/24 10:00 Oxygen Flow Rate (L/min) 2 Oxygen Delivery Method Nasal Cannula Weight: 52.8 kg Body Mass Index (BMI) 17.2 Intake & Output: Intake and Output for Last 24 Hours 09/03/24 09/04/24 09/05/24 23:59 23:59 23:59 Intake Total 4183.2 / 4183.2 1641.38 / 1641.38 Output Total 1700 / 1700 2024 / 2024 Balance 2483.2 / 2483.2 -383.62 / -383.62 Lab / Micro Data 09/05/24 06:14 09/05/24 06:14 Labs: Laboratory Results - last 24 hr 09/04/24 11:00: WBC 15.3 H, RBC 2.60 L, Hgb 7.2 L, Hct 22.7 L, MCV 87.3, MCH 27.7, MCHC 31.7 L, RDW Std Deviation 53.2 H, RDW Coeff of Jaquan 16.9 H, Plt Count 235, MPV 10.1, Immature Gran % (Auto) 1.500 H, Neut % (Auto) 90.2 H, Lymph % (Auto) 2.7 L, Meeker % (Auto) 5.5, Eos % (Auto) 0.0, Baso % (Auto) 0.1, Absolute Neuts (auto) 13.8 H, Absolute Lymphs (auto) 0.41 L, Nucleated RBC % 0, Retic Count 2.23 H, Immature Retic Fraction 17.80 H, Retic Hgb Equivalent 25.2 L, Sodium 124 L, Potassium 2.5 L*, Chloride 80 L, Carbon Dioxide 29.8, Anion Gap 14,BUN 8, Creatinine 0.94, Estim Creat Clear Calc 85.00, Est GFR (MDRD) Non-Af 89, BUN/Creatinine Ratio 8.3 L, Glucose 280 H, Lactic Acid 2.9 H*, Calcium 8.4 09/04/24 12:40: Urine Color Yellow, Urine Clarity Clear, Urine pH 6.0, Ur Specific [place] 1.010, Urine Protein 30 H, Urine Glucose (UA) 50 H, Urine Ketones Negative, Urine Occult Blood 10 H, Urine Nitrite Negative, Urine Bilirubin Negative, Urine Urobilinogen Normal, Ur Leukocyte Esterase Negative, Urine RBC 0-5 SEEN, Urine WBC 0-5 SEEN, Ur Squamous Epith Cells 0-5 SEEN, Urine Bacteria 0 SEEN, Urine Mucus 0 SEEN 09/04/24 16:47: Sodium 129 L, Potassium 2.4 L*, Chloride 89 L, Carbon Dioxide 30.3, Anion Gap 10, BUN 7, Creatinine 0.87, Estim Creat Clear Calc 61.49, Est GFR (MDRD) Non-Af 94, BUN/Creatinine Ratio 7.5 L, Glucose 158 H, Calcium 8.1, Ferritin 1172 H, Vitamin B12 690 09/04/24 17:06: POC Glucose 152 H 09/04/24 17:50: Lactic Acid 1.1 09/04/24 21:17: POC Glucose 197 H 09/05/24 06:14: WBC 8.1, RBC 2.48 L, Hgb 6.8 L, Hct 22.4 L, MCV 90.3, MCH 27.4, MCHC 30.4 L, RDW Std Deviation 56.8 H, RDW Coeff of Jaquan 17.2 H, Plt Count 160, MPV 10.2, Immature Gran % (Auto) 2.100 H, Neut % (Auto) 87.6 H, Lymph % (Auto) 3.4 L, Meeker % (Auto) 6.7, Eos % (Auto) 0.0, Baso % (Auto) 0.2, Absolute Neuts (auto) 7.1, Absolute Lymphs (auto) 0.28 L, Nucleated RBC % 0, Sodium 131 L, Potassium 3.0 L, Chloride 94 L, Carbon Dioxide 28.0, Anion Gap 9, BUN 4, Creatinine 0.69 L, Estim Creat Clear Calc 66.00, Est GFR (MDRD) Non-Af 101, BUN/Creatinine Ratio 6.4 L, Glucose 222 H, Calcium 7.9, Iron 17 L, TIBC 121 L, Iron Saturation 14.0, Unsaturated IBC 104 L 09/05/24 07:30: Blood Type A POSITIVE, Antibody Screen NEGATIVE, Crossmatch See Detail Micro: Microbiology 09/04/24 11:00 Blood Culture (Wb) - Anticubital Left Blood Culture - Preliminary 09/04/24 11:00 Blood Culture (Wb) - Anticubital Left Blood Culture - Preliminary 09/04/24 19:26 Stool Enteric Bacteriology - Final 09/04/24 19:26 Stool Clostridioides difficile (PCR) - Final 09/04/24 11:06 Mucosa - Nose SARS-CoV-2, Influenza & RSV (PCR) - Final Radiography Diagnostic Testing: Radiology Impression Chest X-Ray 09/04/24 11:02 IMPRESSION: Stable examination with evidence of hyperinflation and pulmonary hypertension. Stable nodular density and/or infiltrate in the left upper lobe. Reading Location: [facility] Pelvis X-Ray 09/04/24 11:06 IMPRESSION: No acute abnormality is seen. Dense atherosclerotic calcification of the abdominal aorta and iliac arteries. Reading Location: [facility] Toe X-Ray 09/04/24 11:06 IMPRESSION: No acute fracture is seen. Reading Location: [facility] Chest/Abdomen/Pelvis CT 09/04/24 14:32 IMPRESSION: Heterogeneous consolidation in the left upper lobe with a central necrosis and left hilar lymphadenopathy. A neoplastic process should be ruled out. Tiny nodules in the right lung as described. Left adrenal mass suggestive of possible metastasis. Reading Location: [facility] Physical Exam Const alert, oriented x3 and no apparent distress Constitutional Narrative: Upper middle-aged male, appears older than stated age, thin and cachectic appearing, pale and fatigued appearing, otherwise laying back comfortably in bed, conversing normally, in no acute distress. General Appearance: cooperative and comfortable HEENT normocephalic, head/scalp atraumatic, hearing grossly normal bilaterally, nasal mucous membranes and turbinates normal and moist oral mucous membranes Eyes PERRL, EOMs intact bilaterally and conjunctivae normal Neck full ROM Chest inspection of chest normal Resp normal respiratory effort and no use of accessory muscles Resp Narrative: Breathing comfortably on 4 L nasal cannula at rest. Diminished breath sounds bilaterally with mild to moderate upper airway wheezing noted. No crackles noted. Cardio no murmurs and peripheral pulses 2+ throughout Cardio Narrative: Tachycardic, regular rhythm. GI normal to inspection, nondistended, normoactive bowel sounds, soft to palpation,non-tender and non-distended Extremity normal to inspection and no pedal edema Skin no rashes or lesions noted Neuro Neuro Narrative: Generalized weakness noted. Psych mental status grossly normal Assessment & Plan Assessment/Plan (1) Weakness: (2) Anemia: (3) Septic shock: (4) Pneumonia: PLAN: Plan Patient is a 69-year-old male who presented to [facility] ED on 09/04/2024 with generalized weakness with a fall. 1. Septic shock and acute hypoxia suspected secondary to pneumonia and COPD exacerbation ? Court Reporter following. On home oxygen, requiring 4 L on admit to maintain appropriate saturations. Clinical concern for left upper lobe pneumonia as precipitating etiology. Patient ultimately developed fluid refractory hypotension requiring the initiation of vasopressor support to maintain hemodynamic stability. Infectious workup pending. Continue broad-spectrum IV antibiotics. Initiated on IV steroids and scheduled DuoNebs on 09/05. Wean supplemental oxygen as able. 2. Metastatic lung cancer with recent radiation therapy ? Follows with outpatient oncology and radiation oncology. See quick note for further details on cancer history. In short, patient was recently initiated on radiation therapy for metastases to T6 and T7. It appears he completed 3 of 5 rounds of radiation that were planned for this. Has history of resection of cancer in [place] in 2016 and radiation therapy of cancer in [place] in 2023. Case management following as below. Patient is certainly an appropriate palliative care candidate at this time and pending clinical course, may be appropriate for hospice care. Will follow closely. 3. Acute on chronic debility ? PT/OT/case management following. Patient lives at home alone and appears to have poor social support. Appreciate therapy and case management recommendations. 4. Acute on chronic anemia ? Hemoglobin 7.2 on admit, dropped to 6.8 on hospital day 2. Hemoglobin in June was 11 and that appeared to be his baseline. In [facility] records, hemoglobin 9.7 on CBC from 08/21. Patient denies change in bowel movements but have suspicion for slow upper GI bleed given this hemoglobin drop. Iron studiesnotably with high ferritin consistent with anemia of chronic disease. Transfusing 1 unit of blood today. Will treat with IV PPI twice daily for now. GI consulted for consideration of EGD. N.p.o. at midnight. 5. Concern for malnutrition ? Nutrition following. BMI 17 on admit. However per nutrition, did not meet criteria for malnutrition. Supplements of Ensure clear and Ensure plus high-protein will be added to meals. Appreciate further nutrition recommendations. Chronic medical conditions: ? BPH with obstructive symptoms: Patient with significant urinary retention on admission relieved with straight cath. Will continue to monitor with bladder scans as needed and can consider Hollis catheterization if retaining. Continue home Flomax. ? History of CAD with CABG, hypertension, hyperlipidemia: Had CABG back in 2016. Hypotensive on admit as above. Continue home statin. Holding home beta-yajaira, Lasix and aspirin for now. ? Type 2 diabetes mellitus with diabetic neuropathy: Continue Humalog 75-25 mix at reduced dose of 12 units twice daily along with sliding scale insulin with meals, adjust as needed. Continue home gabapentin. ? Anxiety/depression: Continue home paroxetine and Ativan as needed. ? GERD: Treating with IV PPI twice daily as above. DVT prophylaxis: SCDs CODE STATUS: Full code, verified Expected disposition: TBD Total clinical time spent by myself addressing the patient's medical issues, reviewing all the data, and collaborating with patient's care team: 35 minutes. Charges/Coding Visit Charges Inpatient E&M: 23184 Subs Hosp L2 09/05/24 4229 <Electronically signed by Stanton Ortega DO> Cosigner Signature (if applicable): CC: ~ Signed [facility] Work Phone: 1([phone]) 568-274906-24-2025 Progress note Author [facility] Note Date/Time September 05, 2024 1:59 pm [facility] Medical Records Department [address] [place] [address] Progress Note - Hospitalist 09/05/24 1353 MR#: [id number] Acct: [id number] Name: REY MEAD Rep #:[id number] : 1955 69 From: Stanton mir DO PCP: Dr. Angelica Saleh MD Status:ADM IN Location: ICU ICU01-1 Hospitalist Note [facility]ed [facility] The following notes below are a summary of that visit. 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 HPI: Mr. Mead has history of stage I non-small cell carcinoma of the RUL, statuspost right upper lobectomy in 2017. He also has a history of COPD. On routine PET CT scan in January 2023, he was found to have a 3.5 cm hypermetabolic nodule of the left upper lobe. Serial CT scan showed interval increase in size to 4.8 x 3.7 cm, and bronchoscopy on 04/05/2023 showed extrinsic compression of the apical posterior segment of the left upper lobe. Core biopsy showed keratinizing squamous cell carcinoma. EBUS and TBNA of station 7 node and 11L node were negative. He was considered medically inoperable due to his poor lungfunction which showed an FEV1 of 50% of predicted and a DLCO of 61% of predicted. He therefore underwent SBRT directed to the [place] mass completed on 05/21/2023. He tolerated treatment well and follow-up CT chest on 08/24/2023 showed decreased size of the spiculated mass in the posterior left upper lobe and decreased size of adjacent irregular nodular opacities. There is a new 8 mmnodule in the lateral left upper lobe. PET CT scan on 08/01/2024 showed large hypermetabolic left upper lung lobe mass with invasion of the left lateral chest wall/rib cage. Mitch status: Hypermetabolic mediastinal, left axillary lymph nodes, likely metastatic. Metastases: Findings suggestive of right pleural, left adrenal and osseous metastases. Core needle biopsy of right paraspinal soft tissue mass on 08/21/2024showed metastatic squamous of carcinoma. Recommendation: Radiation oncology recommended palliative radiation therapy directed to his right posterior paraspinal mass at the T6-T7 level. Recommendedtreating with radiation dose of 2000 cGy in 5 fractions. Patient completed 3 radiation doses on 08/28 through 08/30, but it appears this was 4 and 5 were not done due to complications postradiation. 09/05/24 7719 <Electronically signed by Stanton Ortega DO> Cosigner Signature (if applicable): CC: ~ Signed [facility] Work Phone: [phone] Consult note Author Addy Nelson [facility] Note Date/Time September 05, 2024 12:2 7pm [facility] Medical Records Department [address] [place] [address] Consultation - Court Reporter 09/05/24 0648 MR#: [id number] Acct: [id number] Name: REY MEAD Navjot Rep #:[id number] : 1955 69 From: Addy Nelson DO PCP: Dr. Angelica Saleh MD Status:ADM IN Location: ICU ICU01-1 Assessment & Plan Assessment/Plan (1) Sepsis: (2) Acute hyponatremia: (3) Acute hypokalemia: (4) Weakness: (5) Anemia: (6) COPD (chronic obstructive pulmonary disease): QUALIFIERS: COPD type: unspecified COPD Qualified Code(s): J44.9 - Chronic obstructive pulmonary disease, unspecified PLAN: Plan RECOMMENDATIONS: 1. Continue to wean Levophed to maintain a mean arterial pressure at or above 65 mmHg. 2. Continue empiric antimicrobials, pending culture results. 3. Continue supplemental IV fluid hydration. 4. Aggressive electrolyte repletion. 5. Transfuse packed red blood cells as ordered. Check H&H posttransfusion. 6. Check stool for occult blood. If positive, will place consultation to gastroenterology. 7. PPI therapy twice daily. 8. Continue bronchodilator therapy and steroids. 9. Encourage incentive spirometer use and mobilize patient as tolerated. IMPRESSIONS: 1. Septic shock Clinical concern for left upper lobe pneumonia as precipitating etiology. The patient ultimately developed fluid refractory hypotension, which required the initiation of vasopressor support to maintain hemodynamic stability. Plan to continue empiric antimicrobials, pending culture workup. 2. Acute on chronic anemia The patient's anemia has been worsening with time and his hemoglobin is now lessthan 7 g/dL. In light of these findings, we will plan to transfuse 1 unit of packed red blood cells. Recommend checking H&H posttransfusion. PPI therapy will be initiated twice daily. Gastroenterology consultation will be obtained. 3. Hypovolemic hyponatremia/hypokalemia Continue gentle IV fluid hydration. Sodium is improving with volume expansion. Electrolyte repletion as ordered. 4. History of COPD/unspecified lung cancer amidst radiation treatment/obstructive sleep apnea on CPAP Agree with continuing scheduled bronchodilators and IV steroids as ordered. Orders have been placed for nocturnal CPAP therapy per home regimen. 5. History of coronary artery disease status post CABG/diabetes mellitus/GERD/anxiety/BPH Complicates care, management, recovery and prognosis. Continue supportive measures as noted above. TIME: 38 minutes of critical care time, independent of procedures, was spent addressing the patient's septic shock, acute on chronic anemia, hyponatremia, review of all data and collaboration with the care team. HPI Consult Data Date of Consult: 09/05/24 HPI Narrative Reason for Consultation: Sepsis HPI Narrative: The patient is a 69-year-old male, with a history as outlined below, who presented to the emergency department via EMS on September 04 after collapsing when exiting his pickup truck. The patient reported that he had arrived to the hospital in order to proceed with his radiation treatments for his known lung cancer history. The patient is currently receiving all of his cancer related care through the [facility]. He stated that he is currently admits to radiation treatment and has not received any chemotherapy. Details pertinent tothe nature of his lung cancer history are not available. The patient does report a history of COPD which is currently managed by Dr. Hurd on an outpatient basis. In addition, the patient has a known history of obstructive sleep apnea and is prescribed nocturnal CPAP therapy with a pressure support of 11 cm of water +3 L/min. On presentation to the emergency department, the patient was documented to be febrile, tachycardic and tachypneic. Laboratory evaluation was notable for a white blood cell count of 15,000. Hemoglobin was down to 7.2 g/dL. Platelet count was within normal limits. Chemistry profile was notable for a sodium of 124, potassium of 2.5 and creatinine of 0.94. Lactate was elevated at 2.9. Urine analysis was unremarkable. CT chest/abdomen/pelvis was obtained. There was evidence of a left upper lobe consolidation with central area of necrosis along with left hilar adenopathy. An additional 2 cm mass was noted on the leftadrenal gland. The patient was subsequently ordered to receive supplemental IV fluid hydration and was started on antimicrobial therapy along with scheduled bronchodilators. The patient was admitted to the medical intensive care unit for further management. Overnight, due to persistent hypotension, the patient was initiated on vasopressor support. He is currently requiring Levophed at 4 mcg/min to maintain hemodynamic stability. The patient is currently documented to be overall net +1.4 L for the hospitalization. Hemoglobin is low at 6.8 g/dL. Sodium has improved to 131 with a potassium of 3.0. [facility] Medical History Alcohol use Excessive bleeding History of echocardiogram History of stress test Cardiology follow-up encounter Chest pain Vitamin D deficiency Left adrenal mass CAD (coronary artery disease) Blind Cancer Depression Anxiety Diabetes Prostate disease DVT (deep venous thrombosis) High cholesterol Easy bruising Umbilical hernia Neuropathy Injury of head and neck Syncope Former smoker On home oxygen therapy CPAP (continuous positive airway pressure) dependence COPD (chronic obstructive pulmonary disease) Shortness of breath on exertion History of edema Hypertension Home Medications ?Medication ?Instructions ?Recorded ?Last Taken ?Type albuterol sulfate 2.5 mg/3 mL 2.5 mg inhalation DAILY 01/08/23 09/03/24 History (0.083 %) solution for nebulization albuterol sulfate 90 mcg/actuation 2 puff inhalation P RN PRN 01/08/23 05/30/24 History aerosol inhaler shortness of breath or wheez ing aspirin 81 mg tablet,delayed 81 mg PO DAILY 01/08/23 0 09/04/24 History release atorvastatin 20 mg tablet 20 mg PO QHS 01/08/23 History dapagliflozin propanediol 5 mg 5 mg PO DAILY 01/08/23 09/03/24 History tablet (Farxiga) fluticasone fur. 100 mcg-umeclid 1 inh inhalation GURU Y 01/08/23 09/03/24 History 62.5 mcg-vilant 25 mcg inhalat.powder (Trelegy Ellipta) furosemide 40 mg tablet 40 mg PO DAILY 01/08/2308/14 History paroxetine HCl 10 mg tablet 10 mg PO DAILY 01/08/23 History pregabalin 150 mg capsule 150 mg PO DAILY 01/08/23 History roflumilast 250 mcg tablet 250 mcg PO DAILY 01/08/23 0 09/04/24 History tamsulosin 0.4 mg capsule 0.4 mg PO Q24H 01/08/2308/14 History metformin 500 mg tablet,extended 1,500 mg PO QHS 03/2209/04/24 History release 24hr (osmotic) gabapentin 300 mg capsule 300 mg PO QHS 05/10/2409/03 History lorazepam 1 mg tablet 1 mg PO TID #90 tabs 5 Unknown Rx esomeprazole magnesium 40 mg 40 mg PO DAILY 09/04/24 0 09/03/24 History capsule,delayed release insulin lispro protamine-lispro 15 unit subcut BIDCM 0 09/04/24 09/04/24 History 100 unit/mL (75-25) subcutaneous pen (Humalog Mix 75-25 KwikPen) metoprolol succinate 25 mg 25 mg PO DAILY 09/04/24 History tablet,extended release 24 hr oxycodone 5 mg tablet 5 - 10 mg PO Q6H PRN PRN arabella n 09/04/24 Unknown History prednisone 5 mg tablet 15 mg PO DAILY 09/04/24 Unkn own History semaglutide 7 mg tablet (Rybelsus) 7 mg PO DAILY 09/0409/04/24 History vitamin B complex (Complex B-100 1 tab PO DAILY 09/04/24 History tablet,extended release) Allergy/AdvReac Type Severity Reaction Status Date / Time No Known Allergies Allergy Verified 07/24/24 10:03 Family History Mother Cancer LUNG Heart disease Father Cancer lung Sister Cancer lung Heart disease Sister Cancer lung Sister Cancer lung Sister Colon cancer Surgical History Hx of fracture of leg Hx of fracture of foot History of bronchoscopy Hx of biopsy History of lobectomy of lung Hx of oral surgery History of open heart surgery (05/08/15) Social History (Updated 09/04/24 @ 16:19 by Rachell Adamson) household members: none housing: other 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 Physical Exam Const alert, oriented x3 and no apparent distress General Appearance: cooperative HEENT normocephalic and head/scalp atraumatic Eyes PERRL, EOMs intact bilaterally and conjunctivae normal Neck supple General: trachea midline Chest inspection of chest normal Resp no use of accessory muscles Effort and Inspection: able to speak in complete sentences and tachypneic Auscultation: diminished lung sounds Cardio regular rate and regular rhythm GI normal to inspection, nondistended, normoactive bowel sounds Extremity no clubbing, cyanosis or edema Skin no rashes or lesions noted Neuro CN's II-XII intact bilaterally, moves all extremities and no focal motor deficits Psych cooperative and affect normal Lab / Micro Data 09/05/24 06:14 09/05/24 06:14 Labs: Laboratory Results - last 24 hr 09/04/24 11:00: WBC 15.3 H, RBC 2.60 L, Hgb 7.2 L, Hct 22.7 L, MCV 87.3, MCH 27.7, MCHC 31.7 L, RDW Std Deviation 53.2 H, RDW Coeff of Jaquan 16.9 H, Plt Count 235, MPV 10.1, Immature Gran % (Auto) 1.500 H, Neut % (Auto) 90.2 H, Lymph % (Auto) 2.7 L, [place] % (Auto) 5.5, Eos % (Auto) 0.0, Baso % (Auto) 0.1, Absolute Neuts (auto) 13.8 H, Absolute Lymphs (auto) 0.41 L, Nucleated RBC % 0, Retic Count 2.23 H, Immature Retic Fraction 17.80 H, Retic Hgb Equivalent 25.2 L, Sodium 124 L, Potassium 2.5 L*, Chloride 80 L, Carbon Dioxide 29.8, Anion Gap 14,BUN 8, Creatinine 0.94, Estim Creat Clear Calc 85.00, Est GFR (MDRD) Non-Af 89, BUN/Creatinine Ratio 8.3 L, Glucose 280 H, Lactic Acid 2.9 H*, Calcium 8.4 09/04/24 12:40: Urine Color Yellow, Urine Clarity Clear, Urine pH 6.0, Ur Specific [place] 1.010, Urine Protein 30 H, Urine Glucose (UA) 50 H, Urine Ketones Negative, Urine Occult Blood 10 H, Urine Nitrite Negative, Urine Bilirubin Negative, Urine Urobilinogen Normal, Ur Leukocyte Esterase Negative, Urine RBC 0-5 SEEN, Urine WBC 0-5 SEEN, Ur Squamous Epith Cells 0-5 SEEN, Urine Bacteria 0 SEEN, Urine Mucus 0 SEEN 09/04/24 16:47: Sodium 129 L, Potassium 2.4 L*, Chloride 89 L, Carbon Dioxide 30.3, Anion Gap 10, BUN 7, Creatinine 0.87, Estim Creat Clear Calc 61.49, Est GFR (MDRD) Non-Af 94, BUN/Creatinine Ratio 7.5 L, Glucose 158 H, Calcium 8.1, Ferritin 1172 H, Vitamin B12 690 09/04/24 17:06: POC Glucose 152 H 09/04/24 17:50: Lactic Acid 1.1 09/04/24 21:17: POC Glucose 197 H 09/05/24 06:14: WBC 8.1, RBC 2.48 L, Hgb 6.8 L, Hct 22.4 L, MCV 90.3, MCH 27.4, MCHC 30.4 L, RDW Std Deviation 56.8 H, RDW Coeff of Jaquan 17.2 H, Plt Count 160, MPV 10.2, Immature Gran % (Auto) 2.100 H, Neut % (Auto) 87.6 H, Lymph % (Auto) 3.4 L, [place] % (Auto) 6.7, Eos % (Auto) 0.0, Baso % (Auto) 0.2, Absolute Neuts (auto) 7.1, Absolute Lymphs (auto) 0.28 L, Nucleated RBC % 0, Sodium 131 L, Potassium 3.0 L, Chloride 94 L, Carbon Dioxide 28.0, Anion Gap 9, BUN 4, Creatinine 0.69 L, Estim Creat Clear Calc 66.00, Est GFR (MDRD) Non-Af 101, BUN/Creatinine Ratio 6.4 L, Glucose 222 H, Calcium 7.9, Iron 17 L, Iron Saturation 14.0, Unsaturated IBC 104 L Micro: Microbiology 09/04/24 11:00 Blood Culture (Wb) - Anticubital Left Blood Culture - Preliminary 09/04/24 19:26 Stool Enteric Bacteriology - Preliminary 09/04/24 19:26 Stool Clostridioides difficile (PCR) - Final 09/04/24 11:06 Mucosa - Nose SARS-CoV-2, Influenza & RSV (PCR) - Final Imaging Radiology Impression Chest X-Ray 09/04/24 11:02 IMPRESSION: Stable examination with evidence of hyperinflation and pulmonary hypertension. Stable nodular density and/or infiltrate in the left upper lobe. Reading Location: [facility] Pelvis X-Ray 09/04/24 11:06 IMPRESSION: No acute abnormality is seen. Dense atherosclerotic calcification of the abdominal aorta and iliac arteries. Reading Location: [id number] Toe X-Ray 09/04/24 11:06 IMPRESSION: No acute fracture is seen. Reading Location: [facility] Chest/Abdomen/Pelvis CT 09/04/24 14:32 IMPRESSION: Heterogeneous consolidation in the left upper lobe with a central necrosis and left hilar lymphadenopathy. A neoplastic process should be ruled out. Tiny nodules in the right lung as described. Left adrenal mass suggestive of possible metastasis. Reading Location: [facility] Charges/Coding Procedures Hospitalists Procedures: 54727 Critical Care 1st Hr 09/05/24 1227 <Electronically signed by Addy Nelson DO> Cosigner Signature (if applicable): CC: Dr. Angelica Saleh MD~ Signed [facility] Work Phone: [phone] Consult note Author Erica Cristobal [facility] Note Date/Time September 04, 2024 7:45 pm [facility] Medical Records Department [address] [place] [address] Pharmacokinetic/Renal -Consult 09/04/24 1832 MR#: [id number] Acct: [id number] Name: REY MEAD Rep #:[id number] : 1955 69 From: Erica Lomeli PCP: Dr. Angelica Saleh MD Status:ADM IN Y Location: ICU ICU01-1 Consult Antibiotic Management Pharmacy has been consulted to manage selected antibiotic: Vancomycin Type of Intervention Type of Consult: New start Suspected Infection Suspected Infection: Pneumonia Prior Doses of Antibiotics Prior Doses of Antibiotics Received/Current Regimen: 09/04/24 @ 1745 VAncomycin 1250mg x1 Labs Labs: Sodium 129 mmol/L (133-145) L 09/04/24 16:47 Potassium 2.4 mmol/L (3.3-5.1) L* 09/04/24 16:47 Chloride 89 mmol/L (98-108) L 09/04/24 16:47 Carbon Dioxide 30.3 mmol/L (21.0-32.0) 09/04/24 16:47 Anion Gap 10 (5-15) 09/04/24 16:47 BUN 7 mg/dL (4-19) 09/04/24 16:47 Creatinine 0.87 mg/dL (0.70-1.20) 09/04/24 16:47 Est GFR (MDRD) Non-Af 94 (>60) 09/04/24 16:47 BUN/Creatinine Ratio 7.5 RATIO (10-20) L 09/04/24 16:47 Glucose 158 mg/dL (70-99) H 09/04/24 16:47 Microbiology Microbiology: Microbiology 09/04/24 11:06 Mucosa - Nose SARS-CoV-2, Influenza & RSV (PCR) - Final Dosing Weight Weight used for dosin kg Estimated Creatinine Clearance Estimated Creatinine Clearance: 85 Goal Trough Goal Trough: 15-20 mcg/mL Pharmacy Plan for Drug Dosing Pharmacy Plan for Drug Dosing: Vancomycin 1000mg every 12 hours Pharmacy Service will continue to monitor and adjust dosing as required. Follow-Up Labs Follow-Up Labs: Trough: Vancomycin Date/Time Labs Ordered Labs to be done on [date and time ordered]: 09/06/24 @ 0530 09/04/241944 <Electronically signed by Erica Cristobal> Date _ Erica Cristobal Cosigner Signature (if applicable): Date CC: ~ Signed [facility] Work Phone: [phone] 294-634006-23-2025 History and physical note Author Serina Juan [facility] Note Date/Time September 04, 2024 6:40 pm [facility] Medical Records Department [address] [place] [address] H&P Exam - Hospitalist 09/04/24 1444 MR#: [id number] Acct: [id number] Name: REY MEAD Rep #:[id number] : 1955 69 From: Serina Juan MD PCP: Dr. Angelica Saleh MD Status:ADM IN Location: ICU ICU01-1 HPI - General General Date of Admission: 09/04/24 Date of Service: 09/04/24 Chief Complaint: fall, generalized weakness HPI Narrative REY MEAD, is a 69-year-old male with history of ELLEN, lung cancer on radiation, COPD, BPH, diabetes, GERD, anxiety, CAD who presented to [facility] ED 09/06/2024 via EMS after a fall today. His friend was taking him to his radiation appointment as he is receiving radiation therapy on his right lung and when he was getting out of the truck he was transferring to the wheelchair and his legs gave out and he fell to the ground but he did not strike his head. Reportedly he was pale and possibly had eyes rolled back into his head per a bystander but he denies loss of consciousness. Reportedly fell 3times in the past 24 hours and has some generalized weakness. Did note fever today and endorsed he injured his left small toe 3 days ago. On arrival temperature 100.9 which increased to 102.6, heart rate 122 and blood pressure initially 108/62 but down trended to 85/65. White blood cell count 15.3 with hemoglobin of 7.2 with a baseline in the 11 range. Chest x-ray with stable nodular density and/or infiltrate left upper lobe. X-ray of toe and pelvis unremarkable. Patient's BMP with a sodium of 124, potassium 2.5 and glucose 280, lactic acid 2.9. UA not suggestive of UTI. Patient diagnosed with concerns for sepsis and given fluids and antibiotics and hospitalist contacted for admission. Patient evaluated at bedside, he reports he has felt somewhat weak for the past day but denies any increased shortness of breath, no cough, denies fevers at home, the only thing he reports is some intermittent achy abdominal pain for the past 2 days that can last up to a couple hours at a time but is not presently having any, has chronic diarrhea but denies any change in this, no blood in his stool, no urinary changes, did hit left fifth toe on something several days ago and this has become discolored but denies any drainage from this. Currently laying in bed patient reports he is feeling fine and is feeling somewhat better after fluids. No other new or acute complaints. [facility] Medical History Alcohol use Excessive bleeding History of echocardiogram History of stress test Cardiology follow-up encounter Chest pain Vitamin D deficiency Left adrenal mass CAD (coronary artery disease) Blind Cancer Depression Anxiety Diabetes Prostate disease DVT (deep venous thrombosis) High cholesterol Easy bruising Umbilical hernia Neuropathy Injury of head and neck Syncope Former smoker On home oxygen therapy CPAP (continuous positive airway pressure) dependence COPD (chronic obstructive pulmonary disease) Shortness of breath on exertion History of edema Hypertension Home Medications ?Medication ?Instructions ?Recorded ?Last Taken ?Type albuterol sulfate 2.5 mg/3 mL 2.5 mg inhalation DAILY 01/08/23 09/03/24 History (0.083 %) solution for nebulization albuterol sulfate 90 mcg/actuation 2 puff inhalation P RN PRN 01/08/23 05/30/24 History aerosol inhaler shortness of breath or wheez ing aspirin 81 mg tablet,delayed 81 mg PO DAILY 01/08/23 0 09/04/24 History release atorvastatin 20 mg tablet 20 mg PO QHS 01/08/23 History dapagliflozin propanediol 5 mg 5 mg PO DAILY 01/08/23 09/03/24 History tablet (Farxiga) fluticasone fur. 100 mcg-umeclid 1 inh inhalation GURU Y 01/08/23 09/03/24 History 62.5 mcg-vilant 25 mcg inhalat.powder (Trelegy Ellipta) furosemide 40 mg tablet 40 mg PO DAILY 01/08/2308/14 History paroxetine HCl 10 mg tablet 10 mg PO DAILY 01/08/23 History pregabalin 150 mg capsule 150 mg PO DAILY 01/08/23 History roflumilast 250 mcg tablet 250 mcg PO DAILY 01/08/23 0 09/04/24 History tamsulosin 0.4 mg capsule 0.4 mg PO Q24H 01/08/2308/14 History metformin 500 mg tablet,extended 1,500 mg PO QHS 03/2209/04/24 History release 24hr (osmotic) gabapentin 300 mg capsule 300 mg PO QHS 05/10/2409/03 History lorazepam 1 mg tablet 1 mg PO TID #90 tabs 5 Unknown Rx esomeprazole magnesium 40 mg 40 mg PO DAILY 09/04/24 0 09/03/24 History capsule,delayed release insulin lispro protamine-lispro 15 unit subcut BIDCM 0 09/04/24 09/04/24 History 100 unit/mL (75-25) subcutaneous pen (Humalog Mix 75-25 KwikPen) metoprolol succinate 25 mg 25 mg PO DAILY 09/04/24 History tablet,extended release 24 hr oxycodone 5 mg tablet 5 - 10 mg PO Q6H PRN PRN arabella n 09/04/24 Unknown History prednisone 5 mg tablet 15 mg PO DAILY 09/04/24 Unkn own History semaglutide 7 mg tablet (Rybelsus) 7 mg PO DAILY 09/0409/04/24 History vitamin B complex (Complex B-100 1 tab PO DAILY 09/04/24 History tablet,extended release) Allergy/AdvReac Type Severity Reaction Status Date / Time No Known Allergies Allergy Verified 07/24/24 10:03 Family History Mother Cancer LUNG Heart disease Father Cancer lung Sister Cancer lung Heart disease Sister Cancer lung Sister Cancer lung Sister Colon cancer Surgical History Hx of fracture of leg Hx of fracture of foot History of bronchoscopy Hx of biopsy History of lobectomy of lung Hx of oral surgery History of open heart surgery (05/08/15) Social History household members: none 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 Smoking Status: Former smoker quit date: 03/15/15 pack-years: 120 alcohol intake: current alcohol intake frequency: a few times a month Alcohol type: beer substance use type: does not use what type of physical activity do you participate in: none seatbelt use: always do you feel safe at home: Yes ROS ROS Narrative General: Denies fever/chills HENT: Denies headache, denies stuffy nose, denies sore throat EYES: Denies changes in vision Resp: Denies cough, denies shortness of breath Cardiac: Denies chest pain GI: Some chronic diarrhea, no blood in stool, some intermittent centralized abdominal aching off-and-on for the past 2 days lasting up to a couple hours at a time, denies nausea/vomiting : Denies changes in urination Extremity: Denies swelling MSK: Generalized weakness Neuro: Has some chronic neuropathy in his feet Heme: Denies any bleeding or bruising Skin: Does have some discoloration to left fifth toe Psychiatric: No complaints voiced Vital Signs Vital Signs Vital Signs: 09/04/24 10:31 09/04/24 10:39 09/04/24 11:51 Temperature 100.9 F H 102.6 F H Temperature Source Oral Oral Pulse Rate 122 H 107 H Respiratory Rate 12 22 H Respiratory Effort Normal Respiratory Depth Normal Respiratory Pattern Normal Blood Pressure 108/62 92/55 L Blood Pressure Mean 77 67 Pulse Ox 93 93 93 Oxygen Delivery Method Room Air Room Air Room Air 09/04/24 12:40 09/04/24 14:00 Temperature 102.6 F H Temperature Source Oral Pulse Rate 108 H 113 H Respiratory Rate 18 18 Respiratory Effort Respiratory Depth Respiratory Pattern Blood Pressure 85/65 L 96/62 Blood Pressure Mean 71 73 Pulse Ox 95 92 Oxygen Delivery Method Room Air Room Air Weight Weight: 84 kg Body Mass Index (BMI) 24.4 Physical Exam Narrative General: Alert, oriented, no apparent distress HEENT: Atraumatic, normocephalic Eyes: Anicteric, normal conjunctiva Neck: Supple Respiratory: Normal respiratory effort, somewhat diminished bilaterally Cardiovascular: Low-grade sinus tachycardia GI: Soft, nontender, nondistended Extremities: No edema Musculoskeletal: Moving all extremities Neuro: No overt focal neurological deficits Skin: Does have discoloration to left fifth toe without any significant tenderness on palpation per patient no discharge Psych: Cooperative Results Lab / Micro Data 09/04/24 11:00 09/04/24 11:00 Labs: Laboratory Results - last 24 hr 09/04/24 11:00: WBC 15.3 H, RBC 2.60 L, Hgb 7.2 L, Hct 22.7 L, MCV 87.3, MCH 27.7, MCHC 31.7 L, RDW Std Deviation 53.2 H, RDW Coeff of Jaquan 16.9 H, Plt Count 235, MPV 10.1, Immature Gran % (Auto) 1.500 H, Neut % (Auto) 90.2 H, Lymph % (Auto) 2.7 L, [place] % (Auto) 5.5, Eos % (Auto) 0.0, Baso % (Auto) 0.1, Absolute Neuts (auto) 13.8 H, Absolute Lymphs (auto) 0.41 L, Nucleated RBC % 0, Sodium 124 L, Potassium 2.5 L*, Chloride 80 L, Carbon Dioxide 29.8, Anion Gap 14, BUN 8, Creatinine 0.94, Estim Creat Clear Calc 85.00, Est GFR (MDRD) Non-Af 89, BUN/Creatinine Ratio 8.3 L, Glucose 280 H, Lactic Acid 2.9 H*, Calcium 8.4 09/04/24 12:40: Urine Color Yellow, Urine Clarity Clear, Urine pH 6.0, Ur Specific [place] 1.010, Urine Protein 30 H, Urine Glucose (UA) 50 H, Urine Ketones Negative, Urine Occult Blood 10 H, Urine Nitrite Negative, Urine Bilirubin Negative, Urine Urobilinogen Normal, Ur Leukocyte Esterase Negative, Urine RBC 0-5 SEEN, Urine WBC 0-5 SEEN, Ur Squamous Epith Cells 0-5 SEEN, Urine Bacteria 0 SEEN, Urine Mucus 0 SEEN Micro: Microbiology 09/04/24 11:06 Mucosa - Nose SARS-CoV-2, Influenza & RSV (PCR) - Final Imaging Radiology Impression Chest X-Ray 09/04/24 11:02 IMPRESSION: Stable examination with evidence of hyperinflation and pulmonary hypertension. Stable nodular density and/or infiltrate in the left upper lobe. Reading Location: [id number] Pelvis X-Ray 09/04/24 11:06 IMPRESSION: No acute abnormality is seen. Dense atherosclerotic calcification of the abdominal aorta and iliac arteries. Reading Location: [facility] Toe X-Ray 09/04/24 11:06 IMPRESSION: No acute fracture is seen. Reading Location: [id number] Assessment & Plan Assessment/Plan (1) Sepsis: PLAN: Plan # Suspect sepsis, unclear source -Patient hypotensive, febrile, tachycardic, with a lactic acid of 2.9 with an elevated white blood cell count of 15.3 -Chest x-ray reported stable nodular density -UA not infectious appearing -COVID/flu/RSV negative -Blood culture sent -CT chest/abdomen/pelvis with contrast ordered due to sepsis of unknown origin, read is pending -Patient given 3 L of IV fluids, blood pressure is improving -Started on Zosyn, will continue broad-spectrum antibiotics with vancomycin in addition due to unclear source of sepsis and narrow pending culture results - Of note did add stool studies as patient reports he has had diarrhea over the past month # Hypokalemia -Patient's potassium 2.5 -Replaced -Will repeat to verify improvement #Hx COPD -Continue home inhalers -Incentive spirometer # Left toe discoloration -Patient hit his left fifth toe several days ago and is somewhat purple, denies any drainage, does have some neuropathy but reports it is not overtly painful. -X-ray of foot unremarkable -Will consult wound care -Low threshold to consult podiatry if needed # Lung cancer -Presently undergoing radiation for his left lung -Does have previous right lobectomy - Follows with Dr. Valdemar Duncan on an outpatient basis #Chronic BPH with obstruction -Continue home medications - has very distended bladder on CT scan, bladder was also significantly distended on CT from several months ago, will order postvoid and may need Hollis if he is indeed retaining # Acute on chronic anemia -Hemoglobin 7.2, previously 11.9 2 months ago -No overt bleeding appreciated -Will obtain iron panel and ferritin -B12 and folate -Will check reticulocyte panel # History of CAD with CABG in 2016 -Patient on aspirin, statin, beta-yajaira, unless overt bleeding/discovery the patient is bleeding or further decreases in hemoglobin will continue aspirin #Type 2 diabetes mellitus -Glucose checks and sliding scale insulin -Will continue long-acting insulin but a slightly lower dose to verify no hypoglycemia, uptitrate as tolerated #GERD -Continue PPI # Anxiety -Continue home medications #DVT ppx: SCDs given low hemoglobin Serina Juan MD Sepsis Attestation Sepsis Alert: Yes Sepsis Attestation: Agree w/Sepsis Date exam was performed: 09/04/24 Time exam was performed: 14:20 Possible Source of Sepsis: Unknown Sepsis Organ Dysfunction Criteria Present: SBP < 90 mmHg or MAP < 65 mmHg and Lactic Acid > 2 mmol/L Supportive Findings: Febrile, hypotensive, tachycardic, elevated white blood cell count, elevated lactic acid Fluid Resuscitation Fluid resuscitation indicated?: Yes Fluid Resuscitation ordered: 30 ml/kg fluid bolus ordered Charges/Coding Visit Charges Inpatient E&M: 58199 Init Hosp L2 09/04/24 1459 <Electronically signed by Serina Juan MD> Cosigner Signature (if applicable): CC: Dr. Angelica Saleh MD; Dr. Serina Juan MD~ Signed ADDENDUM by Dr. Serina Juan MD on 09/04/24 at 1839 Sepsis Attestation Sepsis Note Date exam was performed: 09/04/24 Time exam was performed: 16:00 Sepsis Attestation: Sepsis re-evaluation was performed Response to fluids: Fluid responsive hypotension 09/04/24 183<Electronically signed by Serina Juan MD> Cosigner Signature (if applicable): cc: Dr. Angelica Saleh MD; Dr. Serina Juan MD ~* Signed [facility] Work Phone: [phone] Discharge summary Author Janie Madsen [facility] Note Date/Time September 04, 2024 4:06 pm [facility] Medical Records Department [address] [place] [id number] Emergency Department Summary 09/04/24 MR#: [id number] Acct: [id number] Name: REY MEAD Rep #:[id number] : [id number] From: Janie Madsen DO PCP: Dr. Angelica Saleh MD Status:ADM IN Location: ICU ICU01-1 HPI History of Present Illness Chief Complaint: Fall Detail of Chief Complaint: Falls and near syncope Informant: patient and friend Narrative Narrative: Patient brought to the emergency department via EMS after a fall today. His friend was taking him to his radiation appointment as he has been receiving radiation therapy on his right lung. When getting out of the pickup truck patient that he was sitting on the wheelchair that was there for him and his legs gave out and he fell to the ground. He did not strike his head. Apparently when bystanders tried to help him up he was pale and his eyes, rolledback in his head but he denies passing out or losing consciousness. Patient is fallen 3 times today apparently. Complains of some generalized weakness. Patient states he injured his left small toe 3 days ago. Today was noted to have a fever. He denies urinary symptoms. [facility] Medical History Alcohol use Excessive bleeding History of echocardiogram History of stress test Cardiology follow-up encounter Chest pain Vitamin D deficiency Left adrenal mass CAD (coronary artery disease) Blind Cancer Depression Anxiety Diabetes Prostate disease DVT (deep venous thrombosis) High cholesterol Easy bruising Umbilical hernia Neuropathy Injury of head and neck Syncope Former smoker On home oxygen therapy CPAP (continuous positive airway pressure) dependence COPD (chronic obstructive pulmonary disease) Shortness of breath on exertion History of edema Hypertension Home Medications ?Medication ?Instructions ?Recorded ?Last Taken ?Type albuterol sulfate 2.5 mg/3 mL 2.5 mg inhalation DAILY 01/08/23 09/03/24 History (0.083 %) solution for nebulization albuterol sulfate 90 mcg/actuation 2 puff inhalation P RN PRN 01/08/23 05/30/24 History aerosol inhaler shortness of breath or wheez ing aspirin 81 mg tablet,delayed 81 mg PO DAILY 01/08/23 0 09/04/24 History release atorvastatin 20 mg tablet 20 mg PO QHS 01/08/23 History dapagliflozin propanediol 5 mg 5 mg PO DAILY 01/08/23 09/03/24 History tablet (Farxiga) fluticasone fur. 100 mcg-umeclid 1 inh inhalation GURU Y 01/08/23 09/03/24 History 62.5 mcg-vilant 25 mcg inhalat.powder (Trelegy Ellipta) furosemide 40 mg tablet 40 mg PO DAILY 01/08/23 06/2 06/06 History paroxetine HCl 10 mg tablet 10 mg PO DAILY 01/08/23 History pregabalin 150 mg capsule 150 mg PO DAILY 01/08/23 History roflumilast 250 mcg tablet 250 mcg PO DAILY 01/08/23 0 09/04/24 History tamsulosin 0.4 mg capsule 0.4 mg PO Q24H 01/08/2308/14 History metformin 500 mg tablet,extended 1,500 mg PO QHS 03/2209/04/24 History release 24hr (osmotic) gabapentin 300 mg capsule 300 mg PO QHS 05/10/2409/03 History lorazepam 1 mg tablet 1 mg PO TID #90 tabs 5 Unknown Rx esomeprazole magnesium 40 mg 40 mg PO DAILY 09/04/24 0 09/03/24 History capsule,delayed release insulin lispro protamine-lispro 15 unit subcut BIDCM 0 09/04/24 09/04/24 History 100 unit/mL (75-25) subcutaneous pen (Humalog Mix 75-25 KwikPen) metoprolol succinate 25 mg 25 mg PO DAILY 09/04/24 History tablet,extended release 24 hr oxycodone 5 mg tablet 5 - 10 mg PO Q6H PRN PRN arabella n 09/04/24 Unknown History prednisone 5 mg tablet 15 mg PO DAILY 09/04/24 Unkn own History semaglutide 7 mg tablet (Rybelsus) 7 mg PO DAILY 09/0409/04/24 History vitamin B complex (Complex B-100 1 tab PO DAILY 09/04/24 History tablet,extended release) Allergy/AdvReac Type Severity Reaction Status Date / Time No Known Allergies Allergy Verified 07/24/24 10:03 Family History Mother Cancer LUNG Heart disease Father Cancer lung Sister Cancer lung Heart disease Sister Cancer lung Sister Cancer lung Sister Colon cancer Surgical History Hx of fracture of leg Hx of fracture of foot History of bronchoscopy Hx of biopsy History of lobectomy of lung Hx of oral surgery History of open heart surgery (05/08/15) Social History household members: none 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 Smoking Status: Former smoker quit date: 03/15/15 pack-years: 120 alcohol intake: current alcohol intake frequency: a few times a month Alcohol type: beer substance use type: does not use what type of physical activity do you participate in: none seatbelt use: always do you feel safe at home: Yes ROS ROS ED Review of Systems ROS Unobtainable: other Constitutional Constitutional ED: Reports fever(s) and lethargy; Denies chills, sweats or weight loss Eyes Eyes: Denies blurry vision, change in vision or diplopia ENT ENT ED: Denies rhinorrhea or sore throat Cardiovascular Cardiovascular: Denies chest pain, orthopnea or racing heartbeat Respiratory/Chest Respiratory/Chest: Denies cough, dyspnea, dyspnea on exertion, orthopnea or sputum Gastrointestinal Gastrointestinal: Denies abdominal pain, diarrhea, nausea or vomiting Genitourinary Genitourinary ED: Denies dysuria, hematuria or urinary frequency Musculoskeletal Musculoskeletal: Denies arthralgias, back pain, myalgias or neck pain Integumentary Denies abscess, Abrasions or rash Neurologic Neurologic: Reports weakness; Denies headache(s) Psychiatric Psychiatric: Denies anxiety, depression or suicidal thoughts Endocrine Endocrinology: Denies polydipsia, polyphagia or polyuria Hematologic/Lymphatic Hematologic/Lymphatic: Denies easy bleeding, easy bruising or lymphadenopathy Allergic/Immunologic Allergic/Immunologic ED: Denies mouth swelling, tongue swelling or urticaria EXAM Physical Exam Const Vital Signs: 09/04/24 10:31 09/04/24 10:39 09/04/24 11:51 Temperature 100.9 F H 102.6 F H Temperature Source Oral Oral Pulse Rate 122 H 107 H Respiratory Rate 12 22 H Respiratory Effort Normal Respiratory Depth Normal Respiratory Pattern Normal Blood Pressure 108/62 92/55 L Blood Pressure Mean 77 67 Pulse Ox 93 93 93 Oxygen Delivery Method Room Air Room Air Room Air 09/04/24 12:40 Temperature 102.6 F H Temperature Source Oral Pulse Rate 108 H Respiratory Rate 18 Respiratory Effort Respiratory Depth Respiratory Pattern Blood Pressure 85/65 L Blood Pressure Mean 71 Pulse Ox 95 Oxygen Delivery Method Room Air Positive well nourished and well developed General Appearance ED: well developed and NAD HEENT Reports TM's clear and moist mucous membranes normocephalic and atraumatic; Negative for trauma or tenderness Tympanic Membrane ED: Yes TM's clear Eyes PERRL and EOMs intact bilaterally General Eye ED: Negative for pale conjunctiva or scleral icterus Neck no lymphadenopathy, supple and no JVD General: Negative for tenderness Chest Wall inspection of chest normal and palpation of chest normal Chest: Negative for tenderness Resp normal respiratory effort and clear to auscultation bilaterally Effort and Inspection: Negative for respiratory distress or pain with movement Auscultation: Negative for rhonchi, wheezes or diminished lung sounds Cardio regular rate, regular rhythm, S1 normal heart sound, S2 normal heart sound and no murmurs Peripheral Pulses: pulses 2+ throughout GI normal to inspection, nondistended, normoactive bowel sounds, soft to palpation,non-tender, non-distended and no masses Back/Spine no CVA tenderness and no thoracic nor lumbar tenderness Extremity normal to inspection Extremity Narrative: No deformity to the hips. Mild diffuse tenderness bilaterally. No shortening or external rotation noted to the hips. Left small toe-patient has a 3 cm laceration at the base of the small toe with no active bleeding currently. General Extremety ED: Negative for edema General Extremity: Negative for edema Neuro oriented x3, CN's II-XII intact bilaterally, no sensory deficits noted and gait normal Sensorium / Orientation: awake, alert, oriented to person, oriented to place andoriented to time Motor Exam: strength 5/5 throughout and strength abnormal Psych mental status grossly normal Skin no rashes or lesions noted and no wounds MDM MDM MDM Narrative Medical decision making narrative: Falls x 3 today. Generally feels weak. Denies significant injury. Patient noted to have a fever on arrival. Clinically looks well. IV line established. EKG obtained on arrival showed a sinus rhythm with rate of [address] changes and occasional PVCs. CBC with differential showed an elevated white count of 15.3 with hemoglobin 7.2 and platelet count of 235. Chemistries showed hyponatremia with sodium 124 and potassium 2.5.. BUN 8 and creatinine 0.94. Urinalysis without signs of infection. Lactate was elevated 2.9. Chest x-ray unremarkable. X-ray of pelvis unremarkable. X-ray of left toes obtained showed no fractures. Lab Data Attestation: I reviewed the patient's lab results. Labs: Laboratory Results - last 24 hr 09/04/24 09/04/24 11:00 12:40 WBC 15.3 H RBC 2.60 L Hgb 7.2 L Hct 22.7 L MCV 87.3 MCH 27.7 MCHC 31.7 L RDW Std Deviation 53.2 H RDW Coeff of Jaquan 16.9 H Plt Count 235 MPV 10.1 Immature Gran % (Auto) 1.500 H Neut % (Auto) 90.2 H Lymph % (Auto) 2.7 L Meeker % (Auto) 5.5 Eos % (Auto) 0.0 Baso % (Auto) 0.1 Absolute Neuts (auto) 13.8 H Absolute Lymphs (auto) 0.41 L Nucleated RBC % 0 Sodium 124 L Potassium 2.5 L* Chloride 80 L Carbon Dioxide 29.8 Anion Gap 14 BUN 8 Creatinine 0.94 Estim Creat Clear Calc 85.00 Est GFR (MDRD) Non-Af 89 BUN/Creatinine Ratio 8.3 L Glucose 280 H Lactic Acid 2.9 H* Calcium 8.4 Urine Color Yellow Urine Clarity Clear Urine pH 6.0 Ur Specific [place] 1.010 Urine Protein 30 H Urine Glucose (UA) 50 H Urine Ketones Negative Urine Occult Blood 10 H Urine Nitrite Negative Urine Bilirubin Negative Urine Urobilinogen Normal Ur Leukocyte Esterase Negative Urine RBC 0-5 SEEN Urine WBC 0-5 SEEN Ur Squamous Epith Cells 0-5 SEEN Urine Bacteria 0 SEEN Urine Mucus 0 SEEN Radiography Diagnostic Testing: Clinical Impression(s) from Imaging Studies Chest X-Ray 09/04/24 11:02 IMPRESSION: Stable examination with evidence of hyperinflation and pulmonary hypertension. Stable nodular density and/or infiltrate in the left upper lobe. Reading Location: [facility] Pelvis X-Ray 09/04/24 11:06 IMPRESSION: No acute abnormality is seen. Dense atherosclerotic calcification of the abdominal aorta and iliac arteries. Reading Location: [facility] Toe X-Ray 09/04/24 11:06 IMPRESSION: No acute fracture is seen. Reading Location: [facility] Three-view x-rays of left toes obtained interpreted by myself as no evidence of fractures. Radiology in agreement. Pelvis x-ray obtained interpreted by myself as no evidence of fracture. Radiology agreement. 1 view chest x-ray obtained interpreted by myself as no evidence of infiltrate or pneumothorax or acute disease process. Radiology in agreement. Radiology felt there was stable nodular density in her infiltrate in left upper lobe. EKG Initial EKG: Attestation: I personally reviewed and interpreted this EKG as follows: Comments: Sinus rhythm with ventricular rate of of 110 bpm with PVCs and nonspecific ST changes Critical Care Time Critical Care Time: Yes Critical care time (excluding procedures): 30-74 minutes, Including time spent:,Discussing w/Patient &/or Family/Museum Exhibit Designer, Discussing w/Consultants, ArrangingAdmission or Transfer, Performing Direct Patient Care at Bedside and - (30 minutes) Discharge Plan Triage Chief Complaint: Fall ED Provider: Janie Madsen Dx/Rx/DC Orders Clinical Impression: Sepsis, Acute hyponatremia, Acute hypokalemia, Weakness, Falls, Anemia Prescriptions: No Action gabapentin 300 mg capsule 300 mg PO QHS furosemide 40 mg tablet 40 mg PO DAILY paroxetine HCl 10 mg tablet 10 mg PO DAILY pregabalin 150 mg capsule 150 mg PO DAILY roflumilast 250 mcg tablet 250 mcg PO DAILY tamsulosin 0.4 mg capsule 0.4 mg PO Q24H albuterol sulfate 2.5 mg /3 mL (0.083 %) solution for nebulization 2.5 mg inhalation DAILY albuterol sulfate 90 mcg/actuation HFA aerosol inhaler 2 puff INHALATION PRN PRN (Reason: shortness of breath or wheezing) aspirin 81 mg tablet,delayed release (DR/EC) 81 mg PO DAILY atorvastatin 20 mg tablet 20 mg PO QHS dapagliflozin propanediol [Farxiga] 5 mg tablet 5 mg PO DAILY Trelegy Ellipta 100-62.5-25 mcg blister with device 1 inh INHALATION DAILY metformin 500 mg tablet extended release 24hr 1,500 mg PO QHS Patient Comments: TAKE 2 tabs in the AM and One tab in PM Rx Instructions: TAKE 2 tabs in the AM and One tab in PM esomeprazole magnesium 40 mg capsule,delayed release(DR/EC) 40 mg PO DAILY metoprolol succinate 25 mg tablet extended release 24 hr 25 mg PO DAILY oxycodone 5 mg tablet 5 - 10 mg PO Q6H PRN PRN (Reason: pain) insulin lispro protamin-lispro [Humalog Mix 75-25 KwikPen] 100 unit/mL (75- 25)insulin pen 15 unit subcut BIDCM Rybelsus 7 mg tablet 7 mg PO DAILY prednisone 5 mg tablet 15 mg PO DAILY Complex B-100 Tablet Extended Release 1 tab PO DAILY lorazepam 1 mg tablet 1 mg PO TID Qty: 90 0RF Primary Care Provider: Angelica Saleh Referrals: Angelica Saleh MD [Primary Care Provider] - Print Language: Czech Disposition Disposition: Acute Care Hospital [facility] What to do if you have Problems For any increased pain, shortness of breath, bleeding, nausea or vomiting, chestpain, or any unexpected problems, contact your Primary Care Provider. Call [facility] ([phone]) or report to the closest Emergency Room. Call 911 if necessary. 09/04/24 1606 <Electronically signed by Janie Madsen DO> Cosigner Signature (if applicable): CC: Dr. Angelica Saleh MD ~ Signed [facility] Work Phone: [phone] Telephone encounter Note* Telephone Encounter - Shilpi Ware RN - 09/04/2024 4:12 PM EDT Patient admitted to [facility]. Will follow for discharge and schedule follow up with Dr. Duncan. Keiry Ware RN [facility] Work Phone: [phone] 135-370906-23-2025 Discharge summary [facility] Medical Records Department [address] [place] [address] Emergency Department Summary 09/04/24 MR#: [id number] Acct: [id number] Name: REY MEAD Rep #:[id number] : [id number] From: Janie Madsen DO PCP: Dr. Angelica Saleh MD Status:ADM IN Location: ICU ICU01-1 HPI History of Present Illness Chief Complaint: Fall Detail of Chief Complaint: Falls and near syncope Informant: patient and friend Narrative Narrative: Patient brought to the emergency department via EMS after a fall today. His friend was taking him to his radiation appointment as he has been receiving radiation therapy on his right lung. When getting out of the pickup truck patient that he was sitting on the wheelchair that was there for him and his legs gave out and he fell to the ground. He did not strike his head. Apparently when bystanders tried to help him up he was pale and his eyes, rolledback in his head but he denies passing out or losing consciousness. Patient is fallen 3 times today apparently. Complains of some generalized weakness. Patient states he injured his left small toe 3 days ago. Today was noted to have a fever. He denies urinary symptoms. [facility] Medical History Alcohol use Excessive bleeding History of echocardiogram History of stress test Cardiology follow-up encounter Chest pain Vitamin D deficiency Left adrenal mass CAD (coronary artery disease) Blind Cancer Depression Anxiety Diabetes Prostate disease DVT (deep venous thrombosis) High cholesterol Easy bruising Umbilical hernia Neuropathy Injury of head and neck Syncope Former smoker On home oxygen therapy CPAP (continuous positive airway pressure) dependence COPD (chronic obstructive pulmonary disease) Shortness of breath on exertion History of edema Hypertension Home Medications ?Medication ?Instructions ?Recorded ?Last Taken ?Type albuterol sulfate 2.5 mg/3 mL 2.5 mg inhalation DAILY 01/08/23 09/03/24 History (0.083 %) solution for nebulization albuterol sulfate 90 mcg/actuation 2 puff inhalation P RN PRN 01/08/23 05/30/24 History aerosol inhaler shortness of breath or wheez ing aspirin 81 mg tablet,delayed 81 mg PO DAILY 01/08/23 0 09/04/24 History release atorvastatin 20 mg tablet 20 mg PO QHS 01/08/23 History dapagliflozin propanediol 5 mg 5 mg PO DAILY 01/08/23 09/03/24 History tablet (Farxiga) fluticasone fur. 100 mcg-umeclid 1 inh inhalation GURU Y 01/08/23 09/03/24 History 62.5 mcg-vilant 25 mcg inhalat.powder (Trelegy Ellipta) furosemide 40 mg tablet 40 mg PO DAILY 01/08/2308/14 History paroxetine HCl 10 mg tablet 10 mg PO DAILY 01/08/23 History pregabalin 150 mg capsule 150 mg PO DAILY 01/08/23 History roflumilast 250 mcg tablet 250 mcg PO DAILY 01/08/23 0 09/04/24 History tamsulosin 0.4 mg capsule 0.4 mg PO Q24H 01/08/2308/14 History metformin 500 mg tablet,extended 1,500 mg PO QHS 03/2209/04/24 History release 24hr (osmotic) gabapentin 300 mg capsule 300 mg PO QHS 05/10/2409/03 History lorazepam 1 mg tablet 1 mg PO TID #90 tabs 5 Unknown Rx esomeprazole magnesium 40 mg 40 mg PO DAILY 09/04/24 0 09/03/24 History capsule,delayed release insulin lispro protamine-lispro 15 unit subcut BIDCM 0 09/04/24 09/04/24 History 100 unit/mL (75-25) subcutaneous pen (Humalog Mix 75-25 KwikPen) metoprolol succinate 25 mg 25 mg PO DAILY 09/04/24 History tablet,extended release 24 hr oxycodone 5 mg tablet 5 - 10 mg PO Q6H PRN PRN arabella n 09/04/24 Unknown History prednisone 5 mg tablet 15 mg PO DAILY 09/04/24 Unkn own History semaglutide 7 mg tablet (Rybelsus) 7 mg PO DAILY 09/0409/04/24 History vitamin B complex (Complex B-100 1 tab PO DAILY 09/04/24 History tablet,extended release) Allergy/AdvReac Type Severity Reaction Status Date / Time No Known Allergies Allergy Verified 07/24/24 10:03 Family History Mother Cancer LUNG Heart disease Father Cancer lung Sister Cancer lung Heart disease Sister Cancer lung Sister Cancer lung Sister Colon cancer Surgical History Hx of fracture of leg Hx of fracture of foot History of bronchoscopy Hx of biopsy History of lobectomy of lung Hx of oral surgery History of open heart surgery (05/08/15) Social History household members: none 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 Smoking Status: Former smoker quit date: 03/15/15 pack-years: 120 alcohol intake: current alcohol intake frequency: a few times a month Alcohol type: beer substance use type: does not use what type of physical activity do you participate in: none seatbelt use: always do you feel safe at home: Yes ROS ROS ED Review of Systems ROS Unobtainable: other Constitutional Constitutional ED: Reports fever(s) and lethargy; Denies chills, sweats or weight loss Eyes Eyes: Denies blurry vision, change in vision or diplopia ENT ENT ED: Denies rhinorrhea or sore throat Cardiovascular Cardiovascular: Denies chest pain, orthopnea or racing heartbeat Respiratory/Chest Respiratory/Chest: Denies cough, dyspnea, dyspnea on exertion, orthopnea or sputum Gastrointestinal Gastrointestinal: Denies abdominal pain, diarrhea, nausea or vomiting Genitourinary Genitourinary ED: Denies dysuria, hematuria or urinary frequency Musculoskeletal Musculoskeletal: Denies arthralgias, back pain, myalgias or neck pain Integumentary Denies abscess, Abrasions or rash Neurologic Neurologic: Reports weakness; Denies headache(s) Psychiatric Psychiatric: Denies anxiety, depression or suicidal thoughts Endocrine Endocrinology: Denies polydipsia, polyphagia or polyuria Hematologic/Lymphatic Hematologic/Lymphatic: Denies easy bleeding, easy bruising or lymphadenopathy Allergic/Immunologic Allergic/Immunologic ED: Denies mouth swelling, tongue swelling or urticaria EXAM Physical Exam Const Vital Signs: 09/04/24 10:31 09/04/24 10:39 09/04/24 11:51 Temperature 100.9 F H 102.6 F H Temperature Source Oral Oral Pulse Rate 122 H 107 H Respiratory Rate 12 22 H Respiratory Effort Normal Respiratory Depth Normal Respiratory Pattern Normal Blood Pressure 108/62 92/55 L Blood Pressure Mean 77 67 Pulse Ox 93 93 93 Oxygen Delivery Method Room Air Room Air Room Air 09/04/24 12:40 Temperature 102.6 F H Temperature Source Oral Pulse Rate 108 H Respiratory Rate 18 Respiratory Effort Respiratory Depth Respiratory Pattern Blood Pressure 85/65 L Blood Pressure Mean 71 Pulse Ox 95 Oxygen Delivery Method Room Air Positive well nourished and well developed General Appearance ED: well developed and NAD HEENT Reports TM's clear and moist mucous membranes normocephalic and atraumatic; Negative for trauma or tenderness Tympanic Membrane ED: Yes TM's clear Eyes PERRL and EOMs intact bilaterally General Eye ED: Negative for pale conjunctiva or scleral icterus Neck no lymphadenopathy, supple and no JVD General: Negative for tenderness Chest Wall inspection of chest normal and palpation of chest normal Chest: Negative for tenderness Resp normal respiratory effort and clear to auscultation bilaterally Effort and Inspection: Negative for respiratory distress or pain with movement Auscultation: Negative for rhonchi, wheezes or diminished lung sounds Cardio regular rate, regular rhythm, S1 normal heart sound, S2 normal heart sound and no murmurs Peripheral Pulses: pulses 2+ throughout GI normal to inspection, nondistended, normoactive bowel sounds, soft to palpation,non-tender, non-distended and no masses Back/Spine no CVA tenderness and no thoracic nor lumbar tenderness Extremity normal to inspection Extremity Narrative: No deformity to the hips. Mild diffuse tenderness bilaterally. No shortening or external rotation noted to the hips. Left small toe-patient has a 3 cm laceration at the base of the small toe with no active bleeding currently. General Extremety ED: Negative for edema General Extremity: Negative for edema Neuro oriented x3, CN's II-XII intact bilaterally, no sensory deficits noted and gait normal Sensorium / Orientation: awake, alert, oriented to person, oriented to place andoriented to time Motor Exam: strength 5/5 throughout and strength abnormal Psych mental status grossly normal Skin no rashes or lesions noted and no wounds MDM MDM MDM Narrative Medical decision making narrative: Falls x 3 today. Generally feels weak. Denies significant injury. Patient noted to have a fever on arrival. Clinically looks well. IV line established. EKG obtained on arrival showed a sinus rhythm with rate of [address] changes and occasional PVCs. CBC with differential showed anelevated white count of 15.3 with hemoglobin 7.2 and platelet count of 235. Chemistries showed hyponatremia with sodium 124 and potassium 2.5.. BUN 8 and creatinine 0.94. Urinalysis without signs of infection. Lactate was elevated 2.9. Chest x-ray unremarkable. X-ray of pelvis unremarkable. X-ray of left toes obtained showed no fractures. Lab Data Attestation: I reviewed the patient's lab results. Labs: Laboratory Results - last 24 hr 09/04/24 09/04/24 11:00 12:40 WBC 15.3 H RBC 2.60 L Hgb 7.2 L Hct 22.7 L MCV 87.3 MCH 27.7 MCHC 31.7 L RDW Std Deviation 53.2 H RDW Coeff of Jaquan 16.9 H Plt Count 235 MPV 10.1 Immature Gran % (Auto) 1.500 H Neut % (Auto) 90.2 H Lymph % (Auto) 2.7 L Meeker % (Auto) 5.5 Eos % (Auto) 0.0 Baso % (Auto) 0.1 Absolute Neuts (auto) 13.8 H Absolute Lymphs (auto) 0.41 L Nucleated RBC % 0 Sodium 124 L Potassium 2.5 L* Chloride 80 L Carbon Dioxide 29.8 Anion Gap 14 BUN 8 Creatinine 0.94 Estim Creat Clear Calc 85.00 Est GFR (MDRD) Non-Af 89 BUN/Creatinine Ratio 8.3 L Glucose 280 H Lactic Acid 2.9 H* Calcium 8.4 Urine Color Yellow Urine Clarity Clear Urine pH 6.0 Ur Specific [place] 1.010 Urine Protein 30 H Urine Glucose (UA) 50 H Urine Ketones Negative Urine Occult Blood 10 H Urine Nitrite Negative Urine Bilirubin Negative Urine Urobilinogen Normal Ur Leukocyte Esterase Negative Urine RBC 0-5 SEEN Urine WBC 0-5 SEEN Ur Squamous Epith Cells 0-5 SEEN Urine Bacteria 0 SEEN Urine Mucus 0 SEEN Radiography Diagnostic Testing: Clinical Impression(s) from Imaging Studies Chest X-Ray 09/04/24 11:02 IMPRESSION: Stable examination with evidence of hyperinflation and pulmonary hypertension. Stable nodular density and/or infiltrate in the left upper lobe. Reading Location: [id number] Pelvis X-Ray 09/04/24 11:06 IMPRESSION: No acute abnormality is seen. Dense atherosclerotic calcification of the abdominal aorta and iliac arteries. Reading Location: [id number] Toe X-Ray 09/04/24 11:06 IMPRESSION: No acute fracture is seen. Reading Location: [id number] Three-view x-rays of left toes obtained interpreted by myself as no evidence of fractures. Radiology in agreement. Pelvis x-ray obtained interpreted by myself as no evidence of fracture. Radiology agreement. 1 view chest x-ray obtained interpreted by myself as no evidence of infiltrate or pneumothorax or acute disease process. Radiology in agreement. Radiology felt there was stable nodular density in herinfiltrate in left upper lobe. EKG Initial EKG: Attestation: I personally reviewed and interpreted this EKG as follows: Comments: Sinus rhythm with ventricular rate of of 110 bpm with PVCs and nonspecific ST changes Critical Care Time Critical Care Time: Yes Critical care time (excluding procedures): 30-74 minutes, Including time spent:,Discussing w/Patient &/or Family/Museum Exhibit Designer, Discussing w/Consultants, ArrangingAdmission or Transfer, Performing Direct Patient Care at Bedside and - (30 minutes) Discharge Plan Triage Chief Complaint: Fall ED Provider: Janie Madsen Dx/Rx/DC Orders Clinical Impression: Sepsis, Acute hyponatremia, Acute hypokalemia, Weakness, Falls, Anemia Prescriptions: No Action gabapentin 300 mg capsule 300 mg PO QHS furosemide 40 mg tablet 40 mg PO DAILY paroxetine HCl 10 mg tablet 10 mg PO DAILY pregabalin 150 mg capsule 150 mg PO DAILY roflumilast 250 mcg tablet 250 mcg PO DAILY tamsulosin 0.4 mg capsule 0.4 mg PO Q24H albuterol sulfate 2.5 mg /3 mL (0.083 %) solution for nebulization 2.5 mg inhalation DAILY albuterol sulfate 90 mcg/actuation HFA aerosol inhaler 2 puff INHALATION PRN PRN (Reason: shortness of breath or wheezing) aspirin 81 mg tablet,delayed release (DR/EC) 81 mg PO DAILY atorvastatin 20 mg tablet 20 mg PO QHS dapagliflozin propanediol [Farxiga] 5 mg tablet 5 mg PO DAILY Trelegy Ellipta 100-62.5-25 mcg blister with device 1 inh INHALATION DAILY metformin 500 mg tablet extended release 24hr 1,500 mg PO QHS Patient Comments: TAKE 2 tabs in the AM and One tab in PM Rx Instructions: TAKE 2 tabs in the AM and One tab in PM esomeprazole magnesium 40 mg capsule,delayed release(DR/EC) 40 mg PO DAILY metoprolol succinate 25 mg tablet extended release 24 hr 25 mg PO DAILY oxycodone 5 mg tablet 5 - 10 mg PO Q6H PRN PRN (Reason: pain) insulin lispro protamin-lispro [Humalog Mix 75-25 KwikPen] 100 unit/mL (75- 25)insulin pen 15 unit subcut BIDCM Rybelsus 7 mg tablet 7 mg PO DAILY prednisone 5 mg tablet 15 mg PO DAILY Complex B-100 Tablet Extended Release 1 tab PO DAILY lorazepam 1 mg tablet 1 mg PO TID Qty: 90 0RF Primary Care Provider: Angelica Saleh Referrals: Angelica Saleh MD [Primary Care Provider] - Print Language: Czech Disposition Disposition: Acute Care Hospital [facility] What to do if you have Problems For any increased pain, shortness of breath, bleeding, nausea or vomiting, chestpain, or any unexpected problems, contact your Primary Care Provider. Call [facility] ([phone]) or report tothe closest Emergency Room. Call 911 if necessary. 09/04/24 1606 Cosigner Signature (if applicable): CC: Dr. Angelica Saleh MD ~ Signed [facility]06-23-2025 Radiology Diagnostic study note [facility] Imaging Services [address] [place] [address] CT Chest, Abd, Pel w/Contrast MR#: [id number] Acct: [id number] Name: REY MEAD Rep #: [id number] : 1955 69 From: Miguel Thompson MD PCP: Dr. Angelica Saleh MD Status: REG ER Study:CT Chest, Abd, Pel w/Contrast Date of E xam: 09/04/24 Exam# [id number] Ordering Dr: Annamarie Juan MD PROCEDURE: CT CHEST, ABD, PEL W/CONTRAST 09/04/2024 REASON FOR EXAM: SEPSIS OF UNKNOWN ORIGIN, IV CONTRAST ONLY TECHNIQUE: Chest, abdomen and pelvis CT with intravenous contrast. Coronal and Sagittal reconstruction series were provided. One or more dose reduction techniques were used (e.g., Automated exposure control, adjustment of the mA and/or kV according to patient size, use of iterative reconstruction technique. PATIENT PREPARATION: Per protocol ORAL CONTRAST TYPE: None CONTRAST: Isovue-300 VOLUME: 95mL Gauge IV RADIATION DOSE SUMMARY: CTDlvol: 14.6 mGy DLP: 1528.71 mGycm COMPARISON: Prior chest radiograph dated September 04, 2024. FINDINGS: CT CHEST: Hardware: EKG electrodes are seen. Lymph nodes: Enlarged necrotic left axillary lymph nodes. The largest lymph node measures 2.3 cm. Heart and Vasculature: Prior CABG. Coronary artery calcification. Lungs and Airways: Heterogeneous consolidation in the left upper lobe with areasof necrosis. Left hilar lymphadenopathy. Atelectasis and volume loss in the right upper lobe. Irregular nodule in the posterior medial segment of the right lower lobe measuring 1 cm. Pleural-based subcentimeter nodules seen in the right lateral pleural space. There is a 2 cm mass in the left adrenal gland. Pleura: No pleural effusion. Bones: Degenerative changes of the thoracic spine. Loss of height of the T12 CT ABDOMEN/PELVIS: Liver: Normal size. No mass. Gallbladder: Mild distention of the gallbladder. Spleen: Normal size. Pancreas: Normal size without evidence of mass surrounding inflammation or ductal dilation. Adrenals: Left adrenal mass measuring 2.7 cm. Kidneys: Unremarkable Bladder: Distended urinary bladder. Central prostatic calcifications. Bowel: Colonic diverticulosis without diverticulitis. Appendix: The appendix is not identified. There is no inflammatory process identified in the right lower quadrant to suggest appendicitis. Lymph nodes: Small lymph nodes are seen in the retroperitoneum. Vasculature: Atherosclerotic plaque formation of the abdominal aorta with a transverse dimension of3.5 cm in the distal portion of the abdominal aorta with mural thrombus. Peritoneum / Retroperitoneum: Unremarkable Bones: Degenerative changes of the spine. CT/CT Chest, Abd, Pel w/Contrast IMPRESSION: Heterogeneous consolidation in the left upper lobe with a central necrosis and left hilar lymphadenopathy. A neoplastic process should be ruled out. Tiny nodules in the right lung as described. Left adrenal mass suggestive of possible metastasis. Reading Location: [id number] CC: Dr. Angelica Saleh MD; Dr. Serina Juan MD ~ Event Host: Signed [facility]06-23-2025 History and physical note [facility] Medical Records Department [address] [place] [address] H&P Exam - Hospitalist 09/04/24 1444 MR#: [id number] Acct: [id number] Name: REY MEAD Rep #:[id number] : 1955 69 From: Serina Juan MD PCP: Dr. Angelica Saleh MD Status:REG ER Location: ED HPI - General General Date of Admission: 09/04/24 Date of Service: 09/04/24 Chief Complaint: fall, generalized weakness HPI Narrative REY MEAD, is a 69-year-old male with history of ELLEN, lung cancer on radiation, COPD, BPH, diabetes, GERD, anxiety, CAD who presented to [facility] ED 09/06/2024 via EMS after a fall today. His friend was taking him to his radiation appointment as he is receiving radiation therapyon his right lung and when he was getting out of the truck he was transferring to the wheelchair and his legs gave out and he fell to the ground but he did not strike his head. Reportedly he was paleand possibly had eyes rolled back into his head per a bystander but he denies loss of consciousness. Reportedly fell 3times in the past 24 hours and has some generalized weakness. Did note fever today and endorsed he injured his left small toe 3 days ago. On arrival temperature 100.9 which increased to 102.6, heart rate 122 and blood pressure initially 108/62 but down trended to 85/65. White blood cell count 15.3 with hemoglobin of 7.2 with a baseline in the 11 range. Chest x-ray with stable nod ular density and/or infiltrate left upper lobe. X-ray of toe and pelvis unremarkable. Patient's BMPwith a sodium of 124, potassium 2.5 and glucose 280, lactic acid 2.9. UA not suggestive of UTI. Patient diagnosed with concerns for sepsis and given fluids and antibiotics and hospitalist contacted for admission. Patient evaluated at bedside, he reports he has felt somewhat weak for the past day but denies any increased shortness of breath, no cough, denies fevers at home, the only thing he reports is some intermittent achy abdominal pain for the past 2 days that can last up to a couple hours at a time but is not presently having any, has chronic diarrhea but denies any change in this, no blood in his stool, no urinary changes, did hit left fifth toe on something several days ago and this has become discolored but denies any drainage from this. Currently laying in bed patient reports he is feeling fine and is feeling somewhat better after fluids. No other new or acute complaints. [facility] Medical History Alcohol use Excessive bleeding History of echocardiogram History of stress test Cardiology follow-up encounter Chest pain Vitamin D deficiency Left adrenal mass CAD (coronary artery disease) Blind Cancer Depression Anxiety Diabetes Prostate disease DVT (deep venous thrombosis) High cholesterol Easy bruising Umbilical hernia Neuropathy Injury of head and neck Syncope Former smoker On home oxygen therapy CPAP (continuous positive airway pressure) dependence COPD (chronic obstructive pulmonary disease) Shortness of breath on exertion History of edema Hypertension Home Medications ?Medication ?Instructions ?Recorded ?Last Taken ?Type albuterol sulfate 2.5 mg/3 mL 2.5 mg inhalation DAILY 01/08/23 09/03/24 History (0.083 %) solution for nebulization albuterol sulfate 90 mcg/actuation 2 puff inhalation P RN PRN 01/08/23 05/30/24 History aerosol inhaler shortness of breath or wheez ing aspirin 81 mg tablet,delayed 81 mg PO DAILY 01/08/23 0 09/04/24 History release atorvastatin 20 mg tablet 20 mg PO QHS 01/08/23 History dapagliflozin propanediol 5 mg 5 mg PO DAILY 01/08/23 09/03/24 History tablet (Farxiga) fluticasone fur. 100 mcg-umeclid 1 inh inhalation GURU Y 01/08/23 09/03/24 History 62.5 mcg-vilant 25 mcg inhalat.powder (Trelegy Ellipta) furosemide 40 mg tablet 40 mg PO DAILY 01/08/2308/14 History paroxetine HCl 10 mg tablet 10 mg PO DAILY 01/08/23 History pregabalin 150 mg capsule 150 mg PO DAILY 01/08/23 History roflumilast 250 mcg tablet 250 mcg PO DAILY 01/08/23 0 09/04/24 History tamsulosin 0.4 mg capsule 0.4 mg PO Q24H 01/08/2308/14 History metformin 500 mg tablet,extended 1,500 mg PO QHS 03/2209/04/24 History release 24hr (osmotic) gabapentin 300 mg capsule 300 mg PO QHS 05/10/2409/03 History lorazepam 1 mg tablet 1 mg PO TID #90 tabs 5 Unknown Rx esomeprazole magnesium 40 mg 40 mg PO DAILY 09/04/24 0 09/03/24 History capsule,delayed release insulin lispro protamine-lispro 15 unit subcut BIDCM 0 09/04/24 09/04/24 History 100 unit/mL (75-25) subcutaneous pen (Humalog Mix 75-25 KwikPen) metoprolol succinate 25 mg 25 mg PO DAILY 09/04/24 History tablet,extended release 24 hr oxycodone 5 mg tablet 5 - 10 mg PO Q6H PRN PRN arabella n 09/04/24 Unknown History prednisone 5 mg tablet 15 mg PO DAILY 09/04/24 Unkn own History semaglutide 7 mg tablet (Rybelsus) 7 mg PO DAILY 09/0409/04/24 History vitamin B complex (Complex B-100 1 tab PO DAILY 09/04/24 History tablet,extended release) Allergy/AdvReac Type Severity Reaction Status Date / Time No Known Allergies Allergy Verified 07/24/24 10:03 Family History Mother Cancer LUNG Heart disease Father Cancer lung Sister Cancer lung Heart disease Sister Cancer lung Sister Cancer lung Sister Colon cancer Surgical History Hx of fracture of leg Hx of fracture of foot History of bronchoscopy Hx of biopsy History of lobectomy of lung Hx of oral surgery History of open heart surgery (05/08/15) Social History household members: none 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 Smoking Status: Former smoker quit date: 03/15/15 pack-years: 120 alcohol intake: current alcohol intake frequency: a few times a month Alcohol type: beer substance use type: does not use what type of physical activity do you participate in: none seatbelt use: always do you feel safe at home: Yes ROS ROS Narrative General: Denies fever/chills HENT: Denies headache, denies stuffy nose, denies sore throat EYES: Denies changes in vision Resp: Denies cough, denies shortness of breath Cardiac: Denies chest pain GI: Some chronic diarrhea, no blood in stool, some intermittent centralized abdominal aching off-and-on for the past 2 days lasting up to a couple hours at a time, denies nausea/vomiting : Denies changes in urination Extremity: Denies swelling MSK: Generalized weakness Neuro: Has some chronic neuropathy in his feet Heme: Denies any bleeding or bruising Skin: Does have some discoloration to left fifth toe Psychiatric: No complaints voiced Vital Signs Vital Signs Vital Signs: 09/04/24 10:31 09/04/24 10:39 09/04/24 11:51 Temperature 100.9 F H 102.6 F H Temperature Source Oral Oral Pulse Rate 122 H 107 H Respiratory Rate 12 22 H Respiratory Effort Normal Respiratory Depth Normal Respiratory Pattern Normal Blood Pressure 108/62 92/55 L Blood Pressure Mean 77 67 Pulse Ox 93 93 93 Oxygen Delivery Method Room Air Room Air Room Air 09/04/24 12:40 09/04/24 14:00 Temperature 102.6 F H Temperature Source Oral Pulse Rate 108 H 113 H Respiratory Rate 18 18 Respiratory Effort Respiratory Depth Respiratory Pattern Blood Pressure 85/65 L 96/62 Blood Pressure Mean 71 73 Pulse Ox 95 92 Oxygen Delivery Method Room Air Room Air Weight Weight: 84 kg Body Mass Index (BMI) 24.4 Physical Exam Narrative General: Alert, oriented, no apparent distress HEENT: Atraumatic, normocephalic Eyes: Anicteric, normal conjunctiva Neck: Supple Respiratory: Normal respiratory effort, somewhat diminished bilaterally Cardiovascular: Low-grade sinus tachycardia GI: Soft, nontender, nondistended Extremities: No edema Musculoskeletal: Moving all extremities Neuro: No overt focal neurological deficits Skin: Does have discoloration to left fifth toe without any significant tenderness on palpation perpatient no discharge Psych: Cooperative Results Lab / Micro Data 09/04/24 11:00 09/04/24 11:00 Labs: Laboratory Results - last 24 hr 09/04/24 11:00: WBC 15.3 H, RBC 2.60 L, Hgb 7.2 L, Hct 22.7 L, MCV 87.3, MCH 27.7, MCHC 31.7 L, RDWStd Deviation 53.2 H, RDW Coeff of Jaquan 16.9 H, Plt Count 235, MPV 10.1, Immature Gran % (Auto) 1.500 H, Neut % (Auto) 90.2 H, Lymph % (Auto) 2.7 L, [place] % (Auto) 5.5, Eos % (Auto) 0.0, Baso % (Auto) 0.1, Absolute Neuts (auto) 13.8 H, Absolute Lymphs (auto) 0.41 L, Nucleated RBC % 0, Sodium 124 L, Potassium 2.5 L*, Chloride 80 L, Carbon Dioxide 29.8, Anion Gap 14, BUN 8, Creatinine 0.94, Estim Creat Clear Calc 85.00, Est GFR (MDRD) Non-Af 89, BUN/Creatinine Ratio 8.3 L, Glucose 280 H, Lactic Acid 2.9 H*, Calcium 8.4 09/04/24 12:40: Urine Color Yellow, Urine Clarity Clear, Urine pH 6.0, Ur Specific [place] 1.010, Urine Protein 30 H, Urine Glucose (UA) 50 H, Urine Ketones Negative, Urine Occult Blood 10 H, Urine Nitrite Negative, Urine Bilirubin Negative, Urine Urobilinogen Normal, Ur Leukocyte Esterase Negative, Urine RBC 0-5 SEEN, Urine WBC 0-5 SEEN, Ur Squamous Epith Cells 0-5 SEEN, Urine Bacteria 0 SEEN, Urine Mucus 0 SEEN Micro: Microbiology 09/04/24 11:06 Mucosa - Nose SARS-CoV-2, Influenza & RSV (PCR) - Final Imaging Radiology Impression Chest X-Ray 09/04/24 11:02 IMPRESSION: Stable examination with evidence of hyperinflation and pulmonary hypertension. Stable nodular density and/or infiltrate in the left upper lobe. Reading Location: [facility] Pelvis X-Ray 09/04/24 11:06 IMPRESSION: No acute abnormality is seen. Dense atherosclerotic calcification of the abdominal aorta and iliac arteries. Reading Location: [id number] Toe X-Ray 09/04/24 11:06 IMPRESSION: No acute fracture is seen. Reading Location: [id number] Assessment & Plan Assessment/Plan (1) Sepsis: PLAN: Plan # Suspect sepsis, unclear source -Patient hypotensive, febrile, tachycardic, with a lactic acid of 2.9 with an elevated white blood cell count of 15.3 -Chest x-ray reported stable nodular density -UA not infectious appearing -COVID/flu/RSV negative -Blood culture sent -CT chest/abdomen/pelvis with contrast ordered due to sepsis of unknown origin, read is pending -Patient given 3 L of IV fluids, blood pressure is improving -Started on Zosyn, will continue broad-spectrum antibiotics with vancomycin in addition due to unclear source of sepsis and narrow pending culture results - Of note did add stool studies as patient reports he has had diarrhea over the past month # Hypokalemia -Patient's potassium 2.5 -Replaced -Will repeat to verify improvement #Hx COPD -Continue home inhalers -Incentive spirometer # Left toe discoloration -Patient hit his left fifth toe several days ago and is somewhat purple, denies any drainage, does have some neuropathy but reports it is not overtly painful. -X-ray of foot unremarkable -Will consult wound care -Low threshold to consult podiatry if needed # Lung cancer -Presently undergoing radiation for his left lung -Does have previous right lobectomy - Follows with Dr. Valdemar Duncan on an outpatient basis #Chronic BPH with obstruction -Continue home medications - has very distended bladder on CT scan, bladder was also significantly distended on CT from several months ago, will order postvoid and may need Hollis if he is indeed retaining # Acute on chronic anemia -Hemoglobin 7.2, previously 11.9 2 months ago -No overt bleeding appreciated -Will obtain iron panel and ferritin -B12 and folate -Will check reticulocyte panel # History of CAD with CABG in 2016 -Patient on aspirin, statin, beta-yajaira, unless overt bleeding/discovery the patient is bleeding or further decreases in hemoglobin will continue aspirin #Type 2 diabetes mellitus -Glucose checks and sliding scale insulin -Will continue long-acting insulin but a slightly lower dose to verify no hypoglycemia, uptitrate as tolerated #GERD -Continue PPI # Anxiety -Continue home medications #DVT ppx: SCDs given low hemoglobin Serina Juan MD Sepsis Attestation Sepsis Alert: Yes Sepsis Attestation: Agree w/Sepsis Date exam was performed: 09/04/24 Time exam was performed: 14:20 Possible Source of Sepsis: Unknown Sepsis Organ Dysfunction Criteria Present: SBP < 90 mmHg or MAP < 65 mmHg and Lactic Acid > 2 mmol/L Supportive Findings: Febrile, hypotensive, tachycardic, elevated white blood cell count, elevated lactic acid Fluid Resuscitation Fluid resuscitation indicated?: Yes Fluid Resuscitation ordered: 30 ml/kg fluid bolus ordered Charges/Coding Visit Charges Inpatient E&M: 32952 Init Hosp L2 09/04/24 2249 Cosigner Signature (if applicable): CC: Dr. Angelica Saleh MD; Dr. Serina Juan MD~ Signed [facility]06-23-2025 Discharge summary Author Janie Madsen [facility] Note Date/Time September 04, 2024 4:06 pm [facility] Medical Records Department [address] [place] [address] Emergency Department Summary 09/04/24 MR#: [id number] Acct: [id number] Name: REY MEAD Rep #:[id number] : 1955 69 From: Janie Madsen DO PCP: Dr. Angelica Saleh MD Status:ADM IN Location: ICU ICU01-1 HPI History of Present Illness Chief Complaint: Fall Detail of Chief Complaint: Falls and near syncope Informant: patient and friend Narrative Narrative: Patient brought to the emergency department via EMS after a fall today. His friend was taking him to his radiation appointment as he has been receiving radiation therapy on his right lung. When getting out of the pickup truck patient that he was sitting on the wheelchair that was there for him and his legs gave out and he fell to the ground. He did not strike his head. Apparently when bystanders tried to help him up he was pale and his eyes, rolledback in his head but he denies passing out or losing consciousness. Patient is fallen 3 times today apparently. Complains of some generalized weakness. Patient states he injured his left small toe 3 days ago. Today was noted to have a fever. He denies urinary symptoms. [facility] Medical History Alcohol use Excessive bleeding History of echocardiogram History of stress test Cardiology follow-up encounter Chest pain Vitamin D deficiency Left adrenal mass CAD (coronary artery disease) Blind Cancer Depression Anxiety Diabetes Prostate disease DVT (deep venous thrombosis) High cholesterol Easy bruising Umbilical hernia Neuropathy Injury of head and neck Syncope Former smoker On home oxygen therapy CPAP (continuous positive airway pressure) dependence COPD (chronic obstructive pulmonary disease) Shortness of breath on exertion History of edema Hypertension Home Medications ?Medication ?Instructions ?Recorded ?Last Taken ?Type albuterol sulfate 2.5 mg/3 mL 2.5 mg inhalation DAILY 01/08/23 09/03/24 History (0.083 %) solution for nebulization albuterol sulfate 90 mcg/actuation 2 puff inhalation P RN PRN 01/08/23 05/30/24 History aerosol inhaler shortness of breath or wheez ing aspirin 81 mg tablet,delayed 81 mg PO DAILY 01/08/23 0 09/04/24 History release atorvastatin 20 mg tablet 20 mg PO QHS 01/08/23 History dapagliflozin propanediol 5 mg 5 mg PO DAILY 01/08/23 09/03/24 History tablet (Farxiga) fluticasone fur. 100 mcg-umeclid 1 inh inhalation GURU Y 01/08/23 09/03/24 History 62.5 mcg-vilant 25 mcg inhalat.powder (Trelegy Ellipta) furosemide 40 mg tablet 40 mg PO DAILY 01/08/2308/14 History paroxetine HCl 10 mg tablet 10 mg PO DAILY 01/08/23 History pregabalin 150 mg capsule 150 mg PO DAILY 01/08/23 History roflumilast 250 mcg tablet 250 mcg PO DAILY 01/08/23 0 09/04/24 History tamsulosin 0.4 mg capsule 0.4 mg PO Q24H 01/08/2308/14 History metformin 500 mg tablet,extended 1,500 mg PO QHS 03/2209/04/24 History release 24hr (osmotic) gabapentin 300 mg capsule 300 mg PO QHS 05/10/2409/03 History lorazepam 1 mg tablet 1 mg PO TID #90 tabs 5 Unknown Rx esomeprazole magnesium 40 mg 40 mg PO DAILY 09/04/24 0 09/03/24 History capsule,delayed release insulin lispro protamine-lispro 15 unit subcut BIDCM 0 09/04/24 09/04/24 History 100 unit/mL (75-25) subcutaneous pen (Humalog Mix 75-25 KwikPen) metoprolol succinate 25 mg 25 mg PO DAILY 09/04/24 History tablet,extended release 24 hr oxycodone 5 mg tablet 5 - 10 mg PO Q6H PRN PRN arabella n 09/04/24 Unknown History prednisone 5 mg tablet 15 mg PO DAILY 09/04/24 Unkn own History semaglutide 7 mg tablet (Rybelsus) 7 mg PO DAILY 09/0409/04/24 History vitamin B complex (Complex B-100 1 tab PO DAILY 09/04/24 History tablet,extended release) Allergy/AdvReac Type Severity Reaction Status Date / Time No Known Allergies Allergy Verified 07/24/24 10:03 Family History Mother Cancer LUNG Heart disease Father Cancer lung Sister Cancer lung Heart disease Sister Cancer lung Sister Cancer lung Sister Colon cancer Surgical History Hx of fracture of leg Hx of fracture of foot History of bronchoscopy Hx of biopsy History of lobectomy of lung Hx of oral surgery History of open heart surgery (05/08/15) Social History household members: none 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 Smoking Status: Former smoker quit date: 03/15/15 pack-years: 120 alcohol intake: current alcohol intake frequency: a few times a month Alcohol type: beer substance use type: does not use what type of physical activity do you participate in: none seatbelt use: always do you feel safe at home: Yes ROS ROS ED Review of Systems ROS Unobtainable: other Constitutional Constitutional ED: Reports fever(s) and lethargy; Denies chills, sweats or weight loss Eyes Eyes: Denies blurry vision, change in vision or diplopia ENT ENT ED: Denies rhinorrhea or sore throat Cardiovascular Cardiovascular: Denies chest pain, orthopnea or racing heartbeat Respiratory/Chest Respiratory/Chest: Denies cough, dyspnea, dyspnea on exertion, orthopnea or sputum Gastrointestinal Gastrointestinal: Denies abdominal pain, diarrhea, nausea or vomiting Genitourinary Genitourinary ED: Denies dysuria, hematuria or urinary frequency Musculoskeletal Musculoskeletal: Denies arthralgias, back pain, myalgias or neck pain Integumentary Denies abscess, Abrasions or rash Neurologic Neurologic: Reports weakness; Denies headache(s) Psychiatric Psychiatric: Denies anxiety, depression or suicidal thoughts Endocrine Endocrinology: Denies polydipsia, polyphagia or polyuria Hematologic/Lymphatic Hematologic/Lymphatic: Denies easy bleeding, easy bruising or lymphadenopathy Allergic/Immunologic Allergic/Immunologic ED: Denies mouth swelling, tongue swelling or urticaria EXAM Physical Exam Const Vital Signs: 09/04/24 10:31 09/04/24 10:39 09/04/24 11:51 Temperature 100.9 F H 102.6 F H Temperature Source Oral Oral Pulse Rate 122 H 107 H Respiratory Rate 12 22 H Respiratory Effort Normal Respiratory Depth Normal Respiratory Pattern Normal Blood Pressure 108/62 92/55 L Blood Pressure Mean 77 67 Pulse Ox 93 93 93 Oxygen Delivery Method Room Air Room Air Room Air 09/04/24 12:40 Temperature 102.6 F H Temperature Source Oral Pulse Rate 108 H Respiratory Rate 18 Respiratory Effort Respiratory Depth Respiratory Pattern Blood Pressure 85/65 L Blood Pressure Mean 71 Pulse Ox 95 Oxygen Delivery Method Room Air Positive well nourished and well developed General Appearance ED: well developed and NAD HEENT Reports TM's clear and moist mucous membranes normocephalic and atraumatic; Negative for trauma or tenderness Tympanic Membrane ED: Yes TM's clear Eyes PERRL and EOMs intact bilaterally General Eye ED: Negative for pale conjunctiva or scleral icterus Neck no lymphadenopathy, supple and no JVD General: Negative for tenderness Chest Wall inspection of chest normal and palpation of chest normal Chest: Negative for tenderness Resp normal respiratory effort and clear to auscultation bilaterally Effort and Inspection: Negative for respiratory distress or pain with movement Auscultation: Negative for rhonchi, wheezes or diminished lung sounds Cardio regular rate, regular rhythm, S1 normal heart sound, S2 normal heart sound and no murmurs Peripheral Pulses: pulses 2+ throughout GI normal to inspection, nondistended, normoactive bowel sounds, soft to palpation,non-tender, non-distended and no masses Back/Spine no CVA tenderness and no thoracic nor lumbar tenderness Extremity normal to inspection Extremity Narrative: No deformity to the hips. Mild diffuse tenderness bilaterally. No shortening or external rotation noted to the hips. Left small toe-patient has a 3 cm laceration at the base of the small toe with no active bleeding currently. General Extremety ED: Negative for edema General Extremity: Negative for edema Neuro oriented x3, CN's II-XII intact bilaterally, no sensory deficits noted and gait normal Sensorium / Orientation: awake, alert, oriented to person, oriented to place andoriented to time Motor Exam: strength 5/5 throughout and strength abnormal Psych mental status grossly normal Skin no rashes or lesions noted and no wounds MDM MDM MDM Narrative Medical decision making narrative: Falls x 3 today. Generally feels weak. Denies significant injury. Patient noted to have a fever on arrival. Clinically looks well. IV line established. EKG obtained on arrival showed a sinus rhythm with rate of [address] changes and occasional PVCs. CBC with differential showed an elevated white count of 15.3 with hemoglobin 7.2 and platelet count of 235. Chemistries showed hyponatremia with sodium 124 and potassium 2.5.. BUN 8 and creatinine 0.94. Urinalysis without signs of infection. Lactate was elevated 2.9. Chest x-ray unremarkable. X-ray of pelvis unremarkable. X-ray of left toes obtained showed no fractures. Lab Data Attestation: I reviewed the patient's lab results. Labs: Laboratory Results - last 24 hr 09/04/24 09/04/24 11:00 12:40 WBC 15.3 H RBC 2.60 L Hgb 7.2 L Hct 22.7 L MCV 87.3 MCH 27.7 MCHC 31.7 L RDW Std Deviation 53.2 H RDW Coeff of Jaquan 16.9 H Plt Count 235 MPV 10.1 Immature Gran % (Auto) 1.500 H Neut % (Auto) 90.2 H Lymph % (Auto) 2.7 L [place] % (Auto) 5.5 Eos % (Auto) 0.0 Baso % (Auto) 0.1 Absolute Neuts (auto) 13.8 H Absolute Lymphs (auto) 0.41 L Nucleated RBC % 0 Sodium 124 L Potassium 2.5 L* Chloride 80 L Carbon Dioxide 29.8 Anion Gap 14 BUN 8 Creatinine 0.94 Estim Creat Clear Calc 85.00 Est GFR (MDRD) Non-Af 89 BUN/Creatinine Ratio 8.3 L Glucose 280 H Lactic Acid 2.9 H* Calcium 8.4 Urine Color Yellow Urine Clarity Clear Urine pH 6.0 Ur Specific [place] 1.010 Urine Protein 30 H Urine Glucose (UA) 50 H Urine Ketones Negative Urine Occult Blood 10 H Urine Nitrite Negative Urine Bilirubin Negative Urine Urobilinogen Normal Ur Leukocyte Esterase Negative Urine RBC 0-5 SEEN Urine WBC 0-5 SEEN Ur Squamous Epith Cells 0-5 SEEN Urine Bacteria 0 SEEN Urine Mucus 0 SEEN Radiography Diagnostic Testing: Clinical Impression(s) from Imaging Studies Chest X-Ray 09/04/24 11:02 IMPRESSION: Stable examination with evidence of hyperinflation and pulmonary hypertension. Stable nodular density and/or infiltrate in the left upper lobe. Reading Location: [id number] Pelvis X-Ray 09/04/24 11:06 IMPRESSION: No acute abnormality is seen. Dense atherosclerotic calcification of the abdominal aorta and iliac arteries. Reading Location: [id number] Toe X-Ray 09/04/24 11:06 IMPRESSION: No acute fracture is seen. Reading Location: [id number] Three-view x-rays of left toes obtained interpreted by myself as no evidence of fractures. Radiology in agreement. Pelvis x-ray obtained interpreted by myself as no evidence of fracture. Radiology agreement. 1 view chest x-ray obtained interpreted by myself as no evidence of infiltrate or pneumothorax or acute disease process. Radiology in agreement. Radiology felt there was stable nodular density in her infiltrate in left upper lobe. EKG Initial EKG: Attestation: I personally reviewed and interpreted this EKG as follows: Comments: Sinus rhythm with ventricular rate of of 110 bpm with PVCs and nonspecific ST changes Critical Care Time Critical Care Time: Yes Critical care time (excluding procedures): 30-74 minutes, Including time spent:,Discussing w/Patient &/or Family/Museum Exhibit Designer, Discussing w/Consultants, ArrangingAdmission or Transfer, Performing Direct Patient Care at Bedside and - (30 minutes) Discharge Plan Triage Chief Complaint: Fall ED Provider: Janie Madsen Dx/Rx/DC Orders Clinical Impression: Sepsis, Acute hyponatremia, Acute hypokalemia, Weakness, Falls, Anemia Prescriptions: No Action gabapentin 300 mg capsule 300 mg PO QHS furosemide 40 mg tablet 40 mg PO DAILY paroxetine HCl 10 mg tablet 10 mg PO DAILY pregabalin 150 mg capsule 150 mg PO DAILY roflumilast 250 mcg tablet 250 mcg PO DAILY tamsulosin 0.4 mg capsule 0.4 mg PO Q24H albuterol sulfate 2.5 mg /3 mL (0.083 %) solution for nebulization 2.5 mg inhalation DAILY albuterol sulfate 90 mcg/actuation HFA aerosol inhaler 2 puff INHALATION PRN PRN (Reason: shortness of breath or wheezing) aspirin 81 mg tablet,delayed release (DR/EC) 81 mg PO DAILY atorvastatin 20 mg tablet 20 mg PO QHS dapagliflozin propanediol [Farxiga] 5 mg tablet 5 mg PO DAILY Trelegy Ellipta 100-62.5-25 mcg blister with device 1 inh INHALATION DAILY metformin 500 mg tablet extended release 24hr 1,500 mg PO QHS Patient Comments: TAKE 2 tabs in the AM and One tab in PM Rx Instructions: TAKE 2 tabs in the AM and One tab in PM esomeprazole magnesium 40 mg capsule,delayed release(DR/EC) 40 mg PO DAILY metoprolol succinate 25 mg tablet extended release 24 hr 25 mg PO DAILY oxycodone 5 mg tablet 5 - 10 mg PO Q6H PRN PRN (Reason: pain) insulin lispro protamin-lispro [Humalog Mix 75-25 KwikPen] 100 unit/mL (75- 25)insulin pen 15 unit subcut BIDCM Rybelsus 7 mg tablet 7 mg PO DAILY prednisone 5 mg tablet 15 mg PO DAILY Complex B-100 Tablet Extended Release 1 tab PO DAILY lorazepam 1 mg tablet 1 mg PO TID Qty: 90 0RF Primary Care Provider: Angelica Saleh Referrals: Angelica Saleh MD [Primary Care Provider] - Print Language: Czech Disposition Disposition: Acute Care Hospital [facility] What to do if you have Problems For any increased pain, shortness of breath, bleeding, nausea or vomiting, chestpain, or any unexpected problems, contact your Primary Care Provider. Call [facility] ([phone]) or report to the closest Emergency Room. Call 911 if necessary. 09/04/24 1606 <Electronically signed by Janie Madsen DO> Cosigner Signature (if applicable): CC: Dr. Angelica Saleh MD ~ Signed [facility] Work Phone: 1(477) 339-581606-23-2025 Radiology Diagnostic study note [facility] Imaging Services [address] [place] [address] Pelvis 1 or 2 Views MR#: [id number] Acct: [id number] Name: REY MEAD Rep #: [id number] : [id number] 69 From: Miguel Thompson MD PCP: Dr. Angelica Saleh MD Status: REG ER Study:Pelvis 1 or 2 Views Date of Exam: 09/04/24 Exam# [id number] Ordering Dr: Karen Madsen DO PROCEDURE: PELVIS 1 OR 2 VIEWS 09/04/2024 REASON FOR EXAM: FALL TECHNIQUE: PELVIS 1 OR 2 VIEWS COMPARISON: None FINDINGS: Hardware: None Bones: No fracture. Joints: Moderate degree of joint space narrowing of both hip joints. soft tissues: Dense vascular calcification. Other: RAD/Pelvis 1 or 2 Views IMPRESSION: No acute abnormality is seen. Dense atherosclerotic calcification of the abdominal aorta and iliac arteries. Reading Location: [id number] CC: Dr. Angelica Saleh MD; Dr. Janie Madsen DO ~ Event Host: Signed [facility]06-23-2025 Radiology Diagnostic study note [facility] Imaging Services [address] [place] [address] Toe(s) Min 2 Views MR#: [id number] Acct: [id number] Name: REY MEAD Rep #: [id number] : 1955 M 69 From: Miguel Thompson MD PCP: Dr. Angelica Saleh MD Status: REG ER Study:Toe(s) Min 2 Views Date of Exam: 0 09/04/24 Exam# [id number] Ordering Dr: Karen Madsen DO PROCEDURE: TOE(S) MIN 2 VIEWS 09/04/2024 REASON FOR EXAM: INJURY Bruising of the 5th digit. TECHNIQUE: TOE(S) MIN 2 VIEWS COMPARISON: None FINDINGS: No visible fracture. Normal alignment. Prior fusion of the 2nd and 3rd tarsometatarsal joints. RAD/Toe(s) Min 2 Views IMPRESSION: No acute fracture is seen. Reading Location: [id number] CC: Dr. Angelica Saleh MD; Dr. Janie Madsen DO ~ Event Host: Signed [facility]06-23-2025 Radiology Diagnostic study note [facility] Imaging Services [address] [place] [address] [id number] Chest 1 View (Portable) MR#: [id number] Acct: [id number] Name: REY MEAD Rep #: [id number] : 1955 M 69 From: Miguel Thompson MD PCP: Dr. Angelica Saleh MD Status: REG ER Study:Chest 1 View (Portable) Date of Exam: 09/04/24 Exam# [id number] Ordering Dr: Karen Madsen DO PROCEDURE: CHEST 1 VIEW (PORTABLE) 09/04/2024 REASON FOR EXAM: FEVER TECHNIQUE: Frontal view of the chest. COMPARISON: Prior study dated January 13, 2023. FINDINGS: Hardware: EKG electrodes are seen. Prior midline sternotomy. Heart: Borderline cardiomegaly. Lungs: Increased interstitial markings in both lungs suggestive of scarring. Findings suggestive ofearly infiltrate in the left upper lobe. Prominence of the central pulmonary arteries suggestive of pulmonary hypertension. History of prior right upper lobectomy. Bones: Healed right rib fractures. Other: RAD/Chest 1 View (Portable) IMPRESSION: Stable examination with evidence of hyperinflation and pulmonary hypertension. Stable nodular density and/or infiltrate in the left upper lobe. Reading Location: [id number] CC: Dr. Angelica Saleh MD; Dr. Janie Madsen, DO ~ Event Host: Signed [facility]06-19-2025 Telephone encounter Note* Telephone Encounter - Estefania Perez - 08/31/2024 3:58 PM EDT This has been scheduled and pt is aware. Estefania Perez [facility]06-19-2025 Miscellaneous Notes* Telephone Encounter - Estefania Perez - 08/31/2024 3:58 PM EDT This has been scheduled and pt is aware. Estefania Perez * Telephone Encounter - Shilpi Ware RN - 08/31/2024 3:11 PM EDT PSS: please schedule a f/u OV with Angie Block on 09/05/24 at 11am. 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 Please call patient with update, he will see Angie after Dr. Dunaway appointment on 09/05/24 to discuss next steps. Keiry Ware, VIPUL documented in this [facility] Telephone encounter Note * Telephone Encounter - Shilpi Ware RN - 08/31/2024 3:11 PM EDT PSS: please schedule a f/u OV with Angie Block on 09/05/24 at 11am. 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 Please call patient with update, he will see Angie after Dr. Dunaway appointment on 09/05/24 to discuss next steps. Keiry Ware RN [facility] Work Phone: [phone]) 391-285306-19-2025 Telephone encounter Note* Telephone Encounter - Enriqueat Amado RN - 08/31/2024 1:[address] Dunaway did a prescription. I will give to patient when he is here for radiation on 09/01. I left a message for patient with this information on his voicemail. [facility]06-19-2025 Miscellaneous Notes* Telephone Encounter - Enriqueta Amado RN - 08/31/2024 1:[address] Dunaway did a prescription. I will give to patient when he is here for radiation on 09/01. I left a message for patient with this information on his voicemail. * Telephone Encounter - Enriqueta Amado RN - 08/31/2024 10:15 AM EDT Patient is asking for a prescription for a walker. documented in this [facility] Telephone encounter Note * Telephone Encounter - Enriqueta Amado RN - 08/31/2024 10:15 AM EDT Patient is asking for a prescription for a walker. [facility]06-18-2025 NoteHNO ID: [id number] Author: JACY PALOMINO, RN Service: ? Author Type: Registered Nurse Type: Progress Notes Filed: 08/30/2024 13:27 Note Text: Radiation Therapy - Patient Education Note PATIENT NAME: Rey Mead PATIENT August 30, 2024 [facility] FACILITY/LOCATION: [place] READINESS TO LEARN Cognitive Ability: Alert and oriented Motivation to learn: Interested Family Support: Unable to assess - Family not present Instruction provide to: Patient Patient learns best by: Individual Instruction Written Instruction - Hand-outs Verbal Instruction Factors effecting learning: None Physical limitations effecting learning: Pain LEARNING RESPONSE Diagnosis: Pt simulated today for radiation therapy to spine T spine. Education Topic/Teaching Points: Radiation therapy, Side effects, OTV, and Transportation: Method of instruction: Teach Back skin care Individual instruction Written instruction/Handouts Verbal instruction Patient /Family response: Patient verbalized understanding of radiation treatments, side effects, OTV, and transportation. Follow-up plan: Complete - No need for follow-up Supplemental material: Informational handouts on Esophagitis/Mucositis, Fatigue, and Skin changes. Referral (recommendation): None, Pt denied need for social work, van service, and sports administrator. Patient has an Onbody or Implanted device: No Signed by: Jacy Palomino [facility] History of Present illness Narrative* Jacy Palomino RN - 08/30/2024 1:25 PM EDT Radiation Therapy - Patient Education Note PATIENT NAME: Rey Mead PATIENT August 30, 2024 [facility] FACILITY/LOCATION: [place] READINESS TO LEARN Cognitive Ability: Alert and oriented Motivation to learn: Interested Family Support: Unable to assess - Family not present Instruction provide to: Patient Patient learns best by: Individual Instruction Written Instruction - Hand-outs Verbal Instruction Factors effecting learning: None Physical limitations effecting learning: Pain LEARNING RESPONSE Diagnosis: Pt simulated today for radiation therapy to spine T spine. Education Topic/Teaching Points: Radiation therapy, Side effects, OTV, and Transportation: Method of instruction: Teach Back skin care Individual instruction Written instruction/Handouts Verbal instruction Patient /Family response: Patient verbalized understanding of radiation treatments, side effects, OTV, and transportation. Follow-up plan: Complete - No need for follow-up Supplemental material: Informational handouts on Esophagitis/Mucositis, Fatigue, and Skin changes. Referral (recommendation): None, Pt denied need for social work, van service, and sports administrator. Patient has an Onbody or Implanted device: No Signed by: Jacy Palomino RN documented in this [facility]25 NoteHNO ID: [id number] Author: ENRIQUETA AMADO RN Service: ? Author Type: Registered Nurse Type: Progress Notes Filed: 08/28/2024 14:18 Note Text: Radiation Therapy - Nursing Note (Consult) PATIENT NAME: Rey Mead PATIENT August 28, 2024 [facility] FACILITY/LOCATION: [place] Chief Complaint: consult Reason for visit: Consult. Referring physician: Internal provider Dr Sebastian Subjective Data: Pt reports pain is a 9 with prescribed pain medications Additional Data Do you want to see a Churn Driller Helper? No Are you interested in information about fertility? No Status: Patient is male Stress Scale: On a scale of 0 to 10, what number best describes how much distress you have experienced in the past week?(0 being no distress and 10 being extreme distress) 7 Social work notified: Pt denied need to see social science instructor at this time. SIGNED by: Enriqueta Amado [facility]06-[facility] History of Present illness Narrative* Enriqueta Amado RN - 08/28/2024 1:11 PM EDT Radiation Therapy - Nursing Note (Consult) PATIENT NAME: Rey Mead PATIENT August 28, 2024 [facility] FACILITY/LOCATION: [place] Chief Complaint: consult Reason for visit: Consult. Referring physician: Internal provider Dr Sebastian Subjective Data: Pt reports pain is a 9 with prescribed pain medications Additional Data Do you want to see a Churn Driller Helper? No Are you interested in information about fertility? No Status: Patient is male Stress Scale: On a scale of 0 to 10, what number best describes how much distress you have experienced in the past week?(0 being no distress and 10 being extreme distress) 7 Social work notified: Pt denied need to see social science instructor at this time. SIGNED by: Enriqueta Amado RN * Jonh Hobson MD - 08/28/2024 1:00 PM EDT Radiation Oncology - New Patient/Consult Note PATIENT NAME: Rey Mead PATIENT REQUESTING PROVIDER: Wolfgang Duncna MD. 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 HPI: 69 year old male who presents with above diagnosis, for an opinion regarding the role of radiation therapy in the management of the patient's disease. Final recommendations will be communicated back to the requesting physician by way of the shared medical record, or letter to requesting physician via US mail. Mr. 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 He also has a history of COPD. On routine PET CT scan during 02/04, he was found to have a 3.47 cm hypermetabolic nodule of the left upper lobe. Serial CT scans showed interval increase in size to 4.8 x 3.7 cm, and bronchoscopy on 04/05/2023 showed extrinsic compression of the apical posterior segment of the left upper lobe. Core biopsy showed keratinizing squamous cell carcinoma. EBUS and TBNA of station 7 node and 11L node were negative. Mr. Mead was considered medically inoperable, due to his poor lung function which showed an FEV1 of50% of predicted and a DLCO of 61% of predicted. He therefore underwent SBRT directed to the FRANCK mass, completed on 05/21/2023. Mr. Mead tolerated treatment well and follow-up CT chest on 08/24/23 showed decreased size of a spiculated mass in the posterior left upper lobe and decreased size of adjacent irregular nodular opacities. There is a new 8 mm nodule in the lateral left upper lobe. CT chest on 11/24/23 showed, 1. Increasing consolidation in the posterior lateral left upper lobe adjacent to a spiculated nodule, possibly due to radiation therapy. 2. Unchanged size of a spiculated nodule in the posterior left upper lobe 3. Previously described 8 mm nodule in the lateral left upper lobe is not visualized on the currentstudy CT chest on 02/18/2024 was compared to the prior study of 11/24/2023, and showed: Progression LEFT upper lobe airspace disease probably due to radiation pneumonitis/fibrosis. No definite change in size of LEFT upper lobe nodule, which is virtually obscured by the airspace disease. Stable borderline enlarged middle mediastinal lymph nodes. Mr. Mead was seen by Dr. Duncan on 03/07/2024 and noted intermittent mild, dull, achy, bilateral back pain radiating to the front. This symptom was reasonably controlled with Neurontin. Adjuvant chemotherapy was not recommended at that time due to the judgment that the risks outweighed the benefits of same. CT chest with contrast on 07/06/2024 was compared to prior studies of 02/18/2024 and 11/24/2023, and showed: Lung parenchyma and airways: Prior right upper lobectomy Large area of left upper lobe traction bronchiectasis and consolidation.. The area of consolidation in this region has increased. Central soft tissue density is approximately 4.9 x 3.8 cm. Image 76 series 5. Difficult to measure due to adjacent consolidative opacity. Appears significantly increased over prior 2 studies, however. Bones and soft tissues: No destructive bone lesion. Chest wall is unremarkable. Mr. Mead was again seen by Dr. Duncan on 07/13/2024 and again noted mild, dull, achy, intermittent bilateral back pain radiating to the front. He reports that since then, his back pain has markedlyincreased and is scored at 8/10, in spite of using oxycodone IR 5 mg 1-2 p.o. every 6 hours as wellas Neurontin. He localizes his pain to his mid thoracic spine area. He denies lower extremity neurologic symptoms, or new bowel or bladder complaints. PET CT scan on 08/01/2024 showed: PRIMARY: Large hypermetabolic left lung upper lobe mass with invasion of the left lateral chest wall/rib cage. MITCH STATUS: Hypermetabolic mediastinal, left axillary lymph nodes likely metastatic. METASTASES: Findings suggestive of right pleural, left adrenal and osseous metastases. Hypermetabolic right pleural nodule. Hypermetabolic left adrenal nodule. Hypermetabolic osseous lesion in the thoracic spine at T2 level. Hypermetabolic Right posterior paraspinal mass at the level of T6/ T7 with lytic changes in the adjacent transverse process/posterior elements. Core needle biopsy of right paraspinal soft tissue mass on 08/21/2024 showed metastatic squamous cellcarcinoma. ALLERGIES No Known Allergies Current Outpatient Medications on File Prior to Visit Medication Sig gabapentin (NEURONTIN) 300 mg capsule Take 1 capsule by mouth once daily for 30 days. oxyCODONE IR (ROXICODONE) 5 mg immediate release tablet Take 1-2 tablets by mouth every 6 hours as needed for pain for up to 7 days. FOR PAIN. predniSONE (DELTASONE) 5 mg tablet Take 15 mg by mouth once daily. take three a day to finish course, Dr Hurd (Patient not taking: Reported on 08/17/2024) VITAMIN B COMPLEX-100 ORAL Take by mouth. (Patient not taking: Reported on 04/21/2023) fluticasone/umeclidin/vilanter (TRELEGY ELLIPTA INHALATION) Inhale 1 Puff as instructed once daily. [id number]-KPZNOHGYZ-MMIBUJAT INHALATION Inhale as instructed. (Patient not taking: Reported on 04/21/2023) ALBUTEROL INHALATION Inhale 2 Puffs as instructed every 4 hours as needed. (Patient not taking: Reported on 04/27/2024) aspirin 81 mg cap Take 81 mg by mouth once daily. atorvastatin (LIPITOR) 20 mg tablet Take 20 mg by mouth once daily. albuterol (PROVENTIL) 2.5 mg /3 mL (0.083 %) nebulizer solution Use 2.5 mg via nebulizer every 4 hours as needed. albuterol HFA (PROVENTIL HFA, VENTOLIN HFA) 90 mcg/actuation inhaler Inhale 1-2 Puffs as instructedevery 4 hours as needed. FARXIGA 5 mg tablet Take 5 mg by mouth once daily. furosemide (LASIX) 40 mg tablet Take 40 mg by mouth once daily. lisinopril 2.5 mg tablet Take 2.5 mg by mouth once daily. LORazepam (ATIVAN) 1 mg tablet Take 1 mg by mouth every 6 hours as needed. metFORMIN ER (FORTAMET) 500 mg 24 hr tablet Take one tablet by mouth in AM & two tablets in PM. metoprolol tartrate, short acting, (LOPRESSOR) 50 mg tablet Take 50 mg by mouth once daily. PARoxetine (PAXIL) 10 mg tablet Take 10 mg by mouth once daily. pregabalin (LYRICA) 150 mg capsule Take 150 mg by mouth once daily. roflumilast (DALIRESP) 250 mcg tablet Take 250 mcg by mouth once daily. RYBELSUS 14 mg tablet Take 7 mg by mouth once daily. tamsulosin (FLOMAX) 0.4 mg Take 0.4 mg by mouth once daily. L.acid/L.casei/B.bif/B.link/FOS (PROBIOTIC BLEND ORAL) Take 1 capsule by mouth once daily. (Patient not taking: Reported on 04/27/2024) No current facility-administered medications on file prior to visit. PAST MEDICAL HISTORY Diagnosis Date Anxiety state CAD (coronary artery disease) CKD (chronic kidney disease) stage 3, GFR 30-59 ml/min (HCC) COPD (chronic obstructive pulmonary disease) (HCC) Diabetes mellitus (HCC) Former smoker History of bronchoscopy HTN (hypertension) Hypokalemia Lung cancer (HCC) Mixed hyperlipidemia ELLEN (obstructive sleep apnea) Other emphysema (HCC) Other emphysema (HCC) Prior radiation therapy, collagen vascular disease, or inflammatory bowel disease: Yes-note HPI Any implanted or external electric devices? No PAST SURGICAL HISTORY Procedure Laterality Date BYPASS GRAFT OTHR,CMUHW-XHC-SOY LOBECTOMY, SEGMENT FAMILY HISTORY Problem Relation Age of Onset Diabetes Mother Heart Mother Cancer Mother Leukemia Father Colon Cancer Sister Diabetes Sister Emphysema Sister Emphysema Sister Emphysema Sister Emphysema Sister Heart Attack Maternal Grandmother Heart Attack Maternal Grandfather Social History Tobacco Use Smoking status: Former Types: Cigarettes Smokeless tobacco: Never Tobacco comments: Pt smoked 2 packs daily x 49 years, quit 2016 Vaping Use Vaping status: Never Used Substance Use Topics Alcohol use: Not Currently Comment: hasn't drank in 5 months Drug use: Never Residence: [place], [place] 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 Yes-8 on a scale of 0 to 10 KPS: 60 General Appearance: Alert and oriented. No acute distress. In wheelchair due to pain HEENT: NCAT. Sclera anicteric. PERRL. EOMI. edentulous. Neck: Normal ROM. No palpable cervical or supraclavicular adenopathy. Chest: No respiratory distress. Lungs-decreased but clear breath sounds bilaterally Heart: Regular rate and rhythm. Abdomen: Soft. Nontender. Nondistended. Musculoskeletal: No edema. Normal ROM in extremities. Tenderness to deep palpation of mid thoracic spine Neuro: Speech fluent. Gait-extremely slow, in pain. No focal deficits. Skin: No rashes noted Lymphatics: No palpable lymphadenopathy. Hematologic: No signs of active bleeding. 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 Mead undergo palliative radiation therapy directed to his right posterior paraspinal mass at the T6/T7 level. I recommend that he be treated to a radiation therapy dose of 2000 cGy in 5 fractions. I discussed with Mr. Mead and his friend, the risks and benefits of the above recommendation. The risks of radiation therapy include, but are not limited to fatigue, red, irritated skin, esophageal irritation with difficult swallowing, lung damage with shortness of breath, and cardiac damage. Mr. Mead agrees with my recommendation. Therefore a CT simulation, followed shortly thereafter by initiation of radiation therapy as delineated above, will be scheduled in the near future. Signed by: Jonh Hobson MD cc: To use this Smartlink, specify the provider ID whose address you want to display, e.g., .PROVADDR[1(where 1 is the provider ID). Shawn Love [address] [facility] [id number] documented in this encounterSelect Medical [facility] NoteHNO ID: [id number] Author: JONH HOBSON MD Service: ? Author Type: Physician Type: Progress Notes Filed: 08/28/2024 14:18 Note Text: Radiation Oncology - New Patient/Consult Note PATIENT NAME: Rey Mead PATIENT REQUESTING PROVIDER: Wolfgang Duncan MD. 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 HPI: 69 year old male who presents with above diagnosis, for an opinion regarding the role of radiation therapy in the management of the patient's disease. Final recommendations will be communicated back to the requesting physician by way of the shared medical record, or letter to requesting physician via US mail. Mr. 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 He also has a history of COPD. On routine PET CT scan during 02/04, he was found to have a 3.47 cm hypermetabolic nodule of the left upper lobe. Serial CT scans showed interval increase in size to 4.8 x 3.7 cm, and bronchoscopy on 04/05/2023 showed extrinsic compression of the apical posterior segment of the left upper lobe. Core biopsy showed keratinizing squamous cell carcinoma. EBUS and TBNA of station 7 node and 11L node were negative. Mr. Mead was considered medically inoperable, due to his poor lung function which showed an FEV1 of 50% of predicted and a DLCO of 61% of predicted. He therefore underwent SBRT directed to the FRANCK mass, completed on 05/21/2023. Mr. Mead tolerated treatment well and follow-up CT chest on 08/24/23 showed decreased size of a spiculated mass in the posterior left upper lobe and decreased size of adjacent irregular nodular opacities. There is a new 8 mm nodule in the lateral left upper lobe. CT chest on 11/24/23 showed, 1. Increasing consolidation in the posterior lateral left upper lobe adjacent to a spiculated nodule, possibly due to radiation therapy. 2. Unchanged size of a spiculated nodule in the posterior left upper lobe 3. Previously described 8 mm nodule in the lateral left upper lobe is not visualized on the current study CT chest on 02/18/2024 was compared to the prior study of 11/24/2023, and showed: Progression LEFT upper lobe airspace disease probably due to radiation pneumonitis/fibrosis. No definite change in size of LEFT upper lobe nodule, which is virtually obscured by the airspace disease. Stable borderline enlarged middle mediastinal lymph nodes. Mr. Mead was seen by Dr. Duncan on 03/07/2024 and noted intermittent mild, dull, achy, bilateral back pain radiating to the front. This symptom was reasonably controlled with Neurontin. Adjuvant chemotherapy was not recommended at that time due to the judgment that the risks outweighed the benefits of same. CT chest with contrast on 07/06/2024 was compared to prior studies of 02/18/2024 and 11/24/2023, and showed: Lung parenchyma and airways: Prior right upper lobectomy Large area of left upper lobe traction bronchiectasis and consolidation.. The area of consolidation in this region has increased. Central soft tissue density is approximately 4.9 x 3.8 cm. Image 76 series 5. Difficult to measure due to adjacent consolidative opacity. Appears significantly increased over prior 2 studies, however. Bones and soft tissues: No destructive bone lesion. Chest wall is unremarkable. Mr. Mead was again seen by Dr. Duncan on 07/13/2024 and again noted mild, dull, achy, intermittent bilateral back pain radiating to the front. He reports that since then, his back pain has markedly increased and is scored at 8/10, in spite of using oxycodone IR 5 mg 1-2 p.o. every 6 hours as well as Neurontin. He localizes his pain to his mid thoracic spine area. He denies lower extremity neurologic symptoms, or new bowel or bladder complaints. PET CT scan on 08/01/2024 showed: PRIMARY: Large hypermetabolic left lung upper lobe mass with invasion of the left lateral chest wall/rib cage. MITCH STATUS: Hypermetabolic mediastinal, left axillary lymph nodes likely metastatic. METASTASES: Findings suggestive of right pleural, left adrenal and osseous metastases. Hypermetabolic right pleural nodule. Hypermetabolic left adrenal nodule. Hypermetabolic osseous lesion in the thoracic spine at T2 level. Hypermetabolic Right posterior paraspinal mass at the level of T6/ T7 with lytic changes in the adjacent transverse process/posterior elements. Core needle biopsy of right paraspinal soft tissue mass on 08/21/2024 showed metastatic squamous cell carcinoma. ALLERGIES No Known Allergies Current Outpatient Medications on File Prior to Visit Medication Sig gabapentin (NEURONTIN) 300 mg ca (more content not included)...[facility]06-16-2025 History of Present illness Narrative* aV Dunaway MD - 08/28/2024 12:00 AM EDT REY MEAD [id number] 08/28/2024 [facility] - Department of Radiation Oncology Treatment Planning Note For reasons stated in the consult note, Rey Mead is a candidate for radiation therapy. Based onreview and interpretation of the relevant diagnostic studies together with the exam findings, Rey Mead was simulated on 08/28/2024 at which time the target volume and/or requisite haque were delineated, as indicated in the simulation note, to be treated according to the prescription. After reviewing the treatment plan with dosimetry Using the fused PET, the plan was approved to deliver the prescribed course of radiation to the target area to allow for the best isodose distribution, treating to the 96.1% isodose line with 6 MV and 2 haque. Custom MLC wedges asym jaws were the treatment device(s) used to shape/modify the beams. Special consideration to these and other structures was given in light of the potential for increased toxicities of re- treatment of a previously irradiated site. A completed summary of this plan dated 08/29/2024 incorporated herein by reference includes dose, beam arrangements, energy, blocking, isodose distribution, and/or ports and DVH. Electronically Signed Va Dunaway M.D. 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 CONTRAST: None PROTOCOL: None BLOCKING: Custom blocking to be determined at treatment planning. FIXATION DEVICE: In order to achieve accurate and reproducible treatments, the patient is to be immobilized with AIO orfit board system. PROCEDURE: A time-out was conducted and recorded by the therapist. Patient was simulated on the CT scanner for external beam radiation therapy. Treatment site was marked by the simulation therapist. ASSESSMENT/PLAN: Patient tolerated simulation procedure well. Treatments will be initiated after treatment planning. The patient is scheduled for a verification simulation on the treatment machine toensure proper set-up and field arrangement is correct prior to the first treatment of primary and boost haque if applicable. Electronically Signed Va Dunaway M.D./deric 52:46 PM documented in this encounterSelect Medical [facility]06-16-2025 NoteHNO ID: [id number] Author: VA DUNAWAY MD Service: Radiation Oncology Author Type: Physician Type: Progress Notes Filed: 08/29/2024 14:45 Note Text: REY MEAD [id number] 08/28/2024 [facility] - Department of Radiation Oncology Treatment Planning Note For reasons stated in the consult note, Rey Mead is a candidate for radiation therapy. Based on review and interpretation of the relevant diagnostic studies together with the exam findings, Rey Mead was simulated on 08/28/2024 at which time the target volume and/or requisite haque were delineated, as indicated in the simulation note, to be treated according to the prescription. After reviewing the treatment plan with dosimetry Using the fused PET, the plan was approved to deliver the prescribed course of radiation to the target area to allow for the best isodose distribution, treating to the 96.1% isodose line with 6 MV and 2 haque. Custom MLC wedges asym jaws were the treatment device(s) used to shape/modify the beams. Special consideration to these and other structures was given in light of the potential for increased toxicities of re- treatment of a previously irradiated site. A completed summary of this plan dated 08/29/2024 incorporated herein by reference includes dose, beam arrangements, energy, blocking, isodose distribution, and/or ports and DVH. Electronically Signed Va Dunaway M.D. 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 CONTRAST: None PROTOCOL: None BLOCKING: Custom blocking to be determined at treatment planning. FIXATION DEVICE: In order to achieve accurate and reproducible treatments, the patient is to be immobilized with AIO orfit board system. PROCEDURE: A time-out was conducted and recorded by the therapist. Patient was simulated on the CT scanner for external beam radiation therapy. Treatment site was marked by the simulation therapist. ASSESSMENT/PLAN: Patient tolerated simulation procedure well. Treatments will be initiated after treatment planning. The patient is scheduled for a verification simulation on the treatment machine to ensure proper set-up and field arrangement is correct prior to the first treatment of primary and boost haque if applicable. Electronically Signed Va Dunaway M.D./ap :46 [facility]06-13-2025 Telephone encounter Note* Telephone Encounter - Shilpi Ware RN - 08/25/2024 3:54 PM EDT Attempted to call patient,no answer and unable to leave a message. Keiry Ware RN [facility]06-13-2025 Miscellaneous Notes* Telephone Encounter - Shilpi Ware RN - 08/25/2024 3:54 PM EDT Attempted to call patient,no answer and unable to leave a message. Keiry Ware RN * Telephone Encounter - Elena Goldsmith - 08/25/2024 1:52 PM EDT Rescheduled as requested * Telephone Encounter - Shilpi Ware RN - 08/25/2024 12:53 PM EDT Attempted to call patient,no answer and unable to leave a message. PSS: please move Dr. Dunaway appointment on 08/[address] Hobson 08/28/24 at 1pm. Keiry Ware RN * Telephone Encounter - Shilpi Ware RN - 08/25/2024 11:08 AM EDT Attempted to call patient,no answer and unable to leave a message. Keiry Ware RN * Telephone Encounter - Shilpi Ware RN - 08/25/2024 10:59 AM EDT Talked with Huan, not able to get transportation for today. Will make appointment for Wednesday. Keiry Ware RN * Telephone Encounter - Shilpi Ware RN - 08/25/2024 9:52 AM EDT Call to KHAI Rogers, asking about transportion help for patient. She is reaching out to someone at [facility] about getting patient in today. She is aware that he would need to be in here no later than 1pm. She will call back and let me know. Keiry Ware RN * Telephone Encounter - Shilpi Ware RN - 08/25/2024 9:22 AM EDT Patient called back, he states he does not have transportation today. Usually a friend helps with that if needed but he is at work. His friend will be able to bring him on Wednesday. And, ok with comingin around 1pm. He needs to check with his friend first. Patient states that his pain in his back is 9/10 and constant. He is taking 1 Oxycodone q6hr and 2 ES Tylenol q8hr. Nothing is helping with pain. He is requesting something else for pain. He states he is unable to drive and relies on his friend to help him. He is aware that I will ask Dr. Duncan for something and call that in to [facility] in [place]. He is aware that I will call him back with plan. Keiry Ware RN Spoke with Dr. Duncan, he advises patient to take 2 oxycodone at a time every 6 hr. and ok to send a refill. Rx pended. Keiry Ware RN * Telephone Encounter - Shilpi Ware RN - 08/25/2024 8:29 AM EDT Call to sonCat, no answer, left detailed message to call our office with update on patient's status. Keiry Ware RN Call to patient, no answer, unable to leave a message, mailbox is full Keiry Ware RN Checked [facility] records a few days ago and today. Patient has not been or admitted there since 06/09/24.No recent Care Everywhere records to show that patient has been somewhere else within that system. Will await a call back from patient or son before next steps. Dr. Duncan ask that we request a well check. Keiry Ware RN Call to [facility], spoke with Medical Records, no recent ED visit or current admission. Keiry Ware RN * Telephone Encounter - Estefania Perez - 08/24/2024 3:19 PM EDT Called pt, still no answer and vm is still full. Estefania Perez * Telephone Encounter - Estefania Perez - 08/24/2024 2:53 PM EDT Called pt son on emergency contact list and lvm e this info to call back and schedule. Estefania Perez * Telephone Encounter - Shilpi Ware RN - 08/24/2024 1:[address] Duncan has talked with Dr. Hobson and he is able to see him tomorrow or Wednesday. Call to patient, no answer, unable to leave a message, mailbox is full Keiry Ware RN PSS: please move radiation oncology consult from 08/30/24 to 08/25 or 08/[address]. Dr. Hobson is willing to see patient to get him in sooner. Keiry Ware RN * Telephone Encounter - Shilpi Ware RN - 08/24/2024 8:25 AM EDT Call to patient, no answer, unable to leave a message, mailbox is full Keiry Ware RN * Telephone Encounter - Shilpi Ware RN - 08/23/2024 8:52 AM EDT Call to patient, no answer, unable to leave a message, mailbox is full Keiry Ware RN * Telephone Encounter - Shilpi Ware RN - 08/22/2024 3:57 PM EDT Care Coordination Triage Note Cancer Hunter Situation: Patient reports Pain--Generalized Background: Lung cancer Call to patient, no answer, left detailed VM to call me back. Keiry Ware RN * Telephone Encounter - Elena Goldsmith - 08/22/2024 3:35 PM EDT Patient states he is in a lot of pain from biopsy yesterday and his pain medications are not working. He is asking for something stronger. [facility] [place] documented in [facility] encounter[facility] Miscellaneous Notes* Telephone Encounter - Shilpi Ware RN - 08/25/2024 2:29 PM EDT See other phone note. Keiry Ware RN * Telephone Encounter - Enriqueta Amado RN - 08/24/2024 1:27 PM EDT Please contact patient and reschedule his radiation consultation from 08/[address] Dunaway to tomorrow with Dr Hobson per request of Dr Duncan for increased pain. If unable to reach patient please tryemergency contact. Thanks! documented in this encounterSelect [facility]06-13-2025 Telephone encounter Note * Telephone Encounter - Shilpi Ware RN - 08/25/2024 2:29 PM EDT See other phone note. Keiry Ware RN [facility] Work Phone: 1(586) 194-345006-13-2025 Telephone encounter Note* Telephone Encounter - Elena Goldsmith - 08/25/2024 1:52 PM EDT Rescheduled as requested [facility] Work Phone: 1(512) 786-100306-13-2025 Telephone encounter Note* Telephone Encounter - Shilpi Ware RN - 08/25/2024 12:53 PM EDT Attempted to call patient,no answer and unable to leave a message. PSS: please move Dr. Dunaway appointment on 08/[address] Hobson 08/28/24 at 1pm. Keiry Ware RN [facility] Telephone encounter Note* Telephone Encounter - Shilpi Ware RN - 08/25/2024 11:08 AM EDT Attempted to call patient,no answer and unable to leave a message. Keiry Ware RN [facility]06-[facility] Telephone encounter Note* Telephone Encounter - Shilpi Ware RN - 08/25/2024 10:59 AM EDT Talked with [facility], not able to get transportation for today. Will make appointment for Wednesday. Keiry Ware RN [facility] Telephone encounter Note* Telephone Encounter - Alana Sanchez LPN - 08/25/2024 10:37 AM EDT Prescription Refill Information The patient has been identified by name and date of : Yes Caregiver verified no other encounters exist for this prescription request: Yes Caregiver confirmed with patient/requestor that no other refills are due, in the near future, with this provider at this time: Yes The last office visit in the department: 08/17/2024 Does the patient have a future office visit with this provider/department: Yes Requested Prescriptions Pending Prescriptions Disp Refills gabapentin (NEURONTIN) 300 mg capsule [Pharmacy Med Name: GABAPENTIN 300 MG CAPSULE] 30 capsule 0 Sig: Take 1 capsule by mouth once daily. Alana Sanchez LPN August 25, 2024 10:37 AM [facility] Miscellaneous Notes* Telephone Encounter - Alana Sanchez LPN - 08/25/2024 10:37 AM EDT Prescription Refill Information The patient has been identified by name and date of : Yes Caregiver verified no other encounters exist for this prescription request: Yes Caregiver confirmed with patient/requestor that no other refills are due, in the near future, with this provider at this time: Yes The last office visit in the department: 08/17/2024 Does the patient have a future office visit with this provider/department: Yes Requested Prescriptions Pending Prescriptions Disp Refills gabapentin (NEURONTIN) 300 mg capsule [Pharmacy Med Name: GABAPENTIN 300 MG CAPSULE] 30 capsule 0 Sig: Take 1 capsule by mouth once daily. Alana Sanchez LPN August 25, 2024 10:37 AM documented in this encounterSelect [facility]06-13-2025 Telephone encounter Note * Telephone Encounter - Shilpi Ware RN - 08/25/2024 9:52 AM EDT Call to [facility], asking about transportion help for patient. She is reaching out to someone at [facility] about getting patient in today. She is aware that he would need to be in here no later than 1pm. She will call back and let me know. Keiry Ware RN [facility]06-[facility] Telephone encounter Note* Telephone Encounter - Shilpi Ware RN - 08/25/2024 9:22 AM EDT Patient called back, he states he does not have transportation today. Usually a friend helps with that if needed but he is at work. His friend will be able to bring him on Wednesday. And, ok with comingin around 1pm. He needs to check with his friend first. Patient states that his pain in his back is 9/10 and constant. He is taking 1 Oxycodone q6hr and 2 ES Tylenol q8hr. Nothing is helping with pain. He is requesting something else for pain. He states he is unable to drive and relies on his friend to help him. He is aware that I will ask Dr. Duncan for something and call that in to [facility] in [place]. He is aware that I will call him back with plan. Keiry Ware RN Spoke with Dr. Duncan, he advises patient to take 2 oxycodone at a time every 6 hr. and ok to send a refill. Rx pended. Keiry Ware RN [facility] Telephone encounter Note* Telephone Encounter - Shilpi Ware RN - 08/25/2024 8:29 AM EDT Call to son, Cat, no answer, left detailed message to call our office with update on patient's status. Keiry Ware RN Call to patient, no answer, unable to leave a message, mailbox is full Keiry Ware RN Checked [facility] records a few days ago and today. Patient has not been or admitted there since 06/09/24.No recent Care Everywhere records to show that patient has been somewhere else within that system. Will await a call back from patient or son before next steps. Dr. Duncan ask that we request a well check. Keiry Ware RN Call to [facility], spoke with Medical Records, no recent ED visit or current admission. Keiry Ware RN [facility]06-[facility] Telephone encounter Note* Telephone Encounter - Estefania Perez - 08/24/2024 3:19 PM EDT Called pt, still no answer and vm is still full. Estefania Perez [facility]06-[facility] Telephone encounter Note* Telephone Encounter - Estefania Perez - 08/24/2024 2:53 PM EDT Called pt son on emergency contact list and lvm e this info to call back and schedule. Estefania Shannonantonio [facility]06-12-20[facility] Telephone encounter Note* Telephone Encounter - Shilpi Ware RN - 08/24/2024 1:[address] Duncan has talked with Dr. Hobson and he is able to see him tomorrow or Wednesday. Call to patient, no answer, unable to leave a message, mailbox is full Keiry Ware RN PSS: please move radiation oncology consult from 08/30/24 to 08/25 or 08/[address]. Dr. Hobson is willing to see patient to get him in sooner. Keiry Ware RN [facility] Telephone encounter Note* Telephone Encounter - Enriqueta Amado RN - 08/24/2024 1:27 PM EDT Please contact patient and reschedule his radiation consultation from 08/[address] Dunaway to tomorrow with Dr Hobson per request of Dr Duncan for increased pain. If unable to reach patient please tryemergency contact. Thanks! [facility]06-[facility] Telephone encounter Note* Telephone Encounter - Shilpi Ware RN - 08/24/2024 8:25 AM EDT Call to patient, no answer, unable to leave a message, mailbox is full Keiry Ware RN [facility]06-[facility] Telephone encounter Note* Telephone Encounter - Shilpi Ware RN - 08/23/2024 8:52 AM EDT Call to patient, no answer, unable to leave a message, mailbox is full Keiry Ware RN [facility]06-10-[facility] Telephone encounter Note* Telephone Encounter - Shilpi Ware RN - 08/22/2024 3:57 PM EDT Care Coordination Triage Note Cancer Hunter Situation: Patient reports Pain--Generalized Background: Lung cancer Call to patient, no answer, left detailed VM to call me back. Keiry Ware RN [facility]06-[facility] Telephone encounter Note* Telephone Encounter - Elena Goldsmith - 08/22/2024 3:35 PM EDT Patient states he is in a lot of pain from biopsy yesterday and his pain medications are not working. He is asking for something stronger. [facility] [place] Telephone encounter Note* Telephone Encounter - Elena Goldsmith - 08/18/2024 8:33 AM EDT Relayed message to patient regarding biopsy Scheduled with Dr. Dunaway [facility] Work Phone: 1(665) 118-114206-06-2025 Miscellaneous Notes* Telephone Encounter - Elena Goldsmith - 08/18/2024 8:33 AM EDT Relayed message to patient regarding biopsy Scheduled with Dr. Dunaway * Telephone Encounter - Debi Sneed - 08/17/2024 3:01 PM EDT Lvm for patient to return the call. He is scheduled at [facility] for biopsy 08/21 8:00am arrival Need to schedule Appointment with Dr Gume lan palliative RT to paraspinal mass. Debi Sneed * Telephone Encounter - Debi Sneed - 08/17/2024 12:37 PM EDT AVS 08/17 Need biopsy of paraspinal mass leanne at [facility]AT MESSAGE SENT FOR SCHEDULING PURPOSES Appointment with Dr Gume lan palliative RT to paraspinal mass. documented in this encounterSelect [facility]06-[facility]-2025 Telephone encounter Note * Telephone Encounter - Debi Sneed - 08/17/2024 3:01 PM EDT Lvm for patient to return the call. He is scheduled at [facility] for biopsy 08/21 8:00am arrival Need to schedule Appointment with Dr Gume lan palliative RT to paraspinal mass. Debi Sneed [facility] Telephone encounter Note* Telephone Encounter - Debi Sneed - 08/17/2024 12:37 PM EDT AVS 6 Need biopsy of paraspinal mass leanne at [facility] MESSAGE SENT FOR SCHEDULING PURPOSES Appointment with Dr Gume lan palliative RT to paraspinal mass. [facility]06-[facility]25 NoteHNO ID: [id number] Author: VALDEMAR DUNCAN MD Service: ? Author Type: Physician Type: Progress Notes Filed: 08/17/2024 13:39 Note Text: (Elements copied from my note dated July 13, 2024, have been reviewed and updated where appropriate, and all reflect current assessment and medical decision making from today's encounter, August 17, 2024) HISTORY OF PRESENT ILLNESS: Rey Mead is a 68 year old male with history right non small cell lung cancer stage I resected 2016, now with metachronous SCC left lung, 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 FRANCK mass found on surveillance scans. 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 Stage IA3 Met with CTS, inoperable. Seeing rad onc for consideration of SBRT. We met to discuss risks and benefits of adjuvant chemotherapy. Here for follow up 08-17-24. Reviewed PET scan,pain is worse in back.. Post SBRT to FRANCK mass May 2023. Reviewed CT report images. We see CT changes 07-07-24 PET 08-01-24 reviewed. He notes intermittent unsteadiness on feet, but drives fine. Ambulated normally on way out of exam room. CLINICAL IMPRESSION: Non small cell lung cancer as above. Stage does not predict significant if any benefit from adjuvant chemotherapy, co morbidities raise risks of such therapy, underlying renal function is marginal. Feel risks of adjuvant chemotherapy outweigh benefits. Now with new FDG avid left lung mass, paraspinal mass. RECOMMENDATION/PLAN: 1. Oxycodone for pain 2. Biopsy of mass, paraspinal seem safest target. 3. Plan RT soon after biopsy. 4. Systemic therapy based on biopsy results Written and verbal health teaching given to patient, patient verbalizes understanding and agrees with treatment plan. PAST MEDICAL HISTORY Diagnosis Date Anxiety state CAD (coronary artery disease) CKD (chronic kidney disease) stage 3, GFR 30-59 ml/min (HCC) COPD (chronic obstructive pulmonary disease) (HCC) Diabetes mellitus (HCC) Former smoker History of bronchoscopy HTN (hypertension) Hypokalemia Lung cancer (HCC) Mixed hyperlipidemia ELLEN (obstructive sleep apnea) Other emphysema (HCC) Other emphysema (HCC) PAST SURGICAL HISTORY Procedure Laterality Date BYPASS GRAFT OTHR,[id number] LOBECTOMY, SEGMENT FAMILY HISTORY Problem Relation Age of Onset Diabetes Mother Heart Mother Cancer Mother Leukemia Father Colon Cancer Sister Diabetes Sister Emphysema Sister Emphysema Sister Emphysema Sister Emphysema Sister Heart Attack Maternal Grandmother Heart Attack Maternal Grandfather Social History Tobacco Use Smoking status: Former Types: Cigarettes Smokeless tobacco: Never Tobacco comments: Pt smoked 2 packs daily x 49 years, quit 2016 Vaping Use Vaping status: Never Used Substance Use Topics Alcohol use: Not Currently Comment: hasn't drank in 5 months Drug use: Never ALLERGIES: ALLERGIES No Known Allergies CURRENT OUTPATIENT MEDICATIONS: fluticasone/umeclidin/vilanter (TRELEGY ELLIPTA INHALATION) Inhale 1 Puff as instructed once daily. aspirin 81 mg cap Take 81 mg by mouth once daily. atorvastatin (LIPITOR) 20 mg tablet Take 20 mg by mouth once daily. albuterol (PROVENTIL) 2.5 mg /3 mL (0.083 %) nebulizer solution Use 2.5 mg via nebulizer every 4 hours as needed. albuterol HFA (PROVENTIL HFA, VENTOLIN HFA) 90 mcg/actuation inhaler Inhale 1-2 Puffs as instructed every 4 hours as needed. FARXIGA 5 mg tablet Take 5 mg by mouth once daily. furosemide (LASIX) 40 mg tablet Take 40 mg by mouth once daily. lisinopril 2.5 mg tablet Take 2.5 mg by mouth once daily. LORazepam (ATIVAN) 1 mg tablet Take 1 mg by mouth every 6 hours as needed. metFORMIN ER (FORTAMET) 500 mg 24 hr tablet Take one tablet by mouth in AM AND two tablets in PM. metoprolol tartrate, short acting, (LOPRESSOR) 50 mg tablet Take 50 mg by mouth once daily. PARoxetine (PAXIL) 10 mg tablet Take 10 mg by mouth once daily. pregabalin (LYRICA) 150 mg capsule Take 150 mg by mouth once daily. roflumilast (DALIRESP) 250 mcg tablet Take 250 mcg by mouth once daily. RYBELSUS 14 mg tablet Take 7 mg by mouth once daily. tamsulosin (FLOMAX) 0.4 mg Take 0.4 mg by mouth once daily. predniSONE (DELTASONE) 5 mg tablet Take 15 mg by mouth once daily. take three a day to finish course, Dr Hurd (Patient not taking: Reported on 08/17/2024) gabapentin (NEURONTIN) 300 mg capsule Take 1 capsule by mouth once daily for 90 days. VITAMIN B COMPLEX-100 ORAL Take by mouth. (Patient not taking: Reported on 04/21/2023) [id number] INHALATION Inhale as instructed. (Patient not taking: Reported on 04/21/2023) ALBUTEROL INHALATION Inhale 2 Puffs as instructed every 4 hours as needed. (Patient not taking: Reported on 04/27/2024) L.acid/L.casei/B.bif/B.link/FOS (PROBIOTIC BLEND ORAL) Take 1 capsule by mouth once daily. (Patient not taking: Reported on 04/27/2024) REVIEW OF SYSTEMS: G (more content not included)...[facility]06-05-2025 History of Present illness Narrative* Valdemar Duncan MD - 08/17/2024 11:56 AM EDT (Elements copied from my note dated July 13, 2024, have been reviewed and updated where appropriate, and all reflect current assessment and medical decision making from today's encounter, August 17, 2024) HISTORY OF PRESENT ILLNESS: Rey Mead is a 68 year old male with history right non small cell lung cancer stage I resected 2016, now with metachronous SCC left lung, 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 FRANCK mass found on surveillance scans. 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 Stage IA3 Met with CTS, inoperable. Seeing rad onc for consideration of SBRT. We met to discuss risks and benefits of adjuvant chemotherapy. Here for follow up 08-17-24. Reviewed PET scan,pain is worse in back.. Post SBRT to FRANCK mass May 2023. Reviewed CT report images. We see CT changes 07-07-24 PET 08-01-24 reviewed. He notes intermittent unsteadiness on feet, but drives fine. Ambulated normally on way out of exam room. CLINICAL IMPRESSION: Non small cell lung cancer as above. Stage does not predict significant if any benefit from adjuvant chemotherapy, co morbidities raise risks of such therapy, underlying renal function is marginal. Feel risks of adjuvant chemotherapy outweigh benefits. Now with new FDG avid left lung mass, paraspinal mass. RECOMMENDATION/PLAN: 1. Oxycodone for pain 2. Biopsy of mass, paraspinal seem safest target. 3. Plan RT soon after biopsy. 4. Systemic therapy based on biopsy results Written and verbal health teaching given to patient, patient verbalizes understanding and agrees with treatment plan. PAST MEDICAL HISTORY Diagnosis Date Anxiety state CAD (coronary artery disease) CKD (chronic kidney disease) stage 3, GFR 30-59 ml/min (HCC) COPD (chronic obstructive pulmonary disease) (HCC) Diabetes mellitus (HCC) Former smoker History of bronchoscopy HTN (hypertension) Hypokalemia Lung cancer (HCC) Mixed hyperlipidemia ELLEN (obstructive sleep apnea) Other emphysema (HCC) Other emphysema (HCC) PAST SURGICAL HISTORY Procedure Laterality Date BYPASS GRAFT OTHR,[id number] LOBECTOMY, SEGMENT FAMILY HISTORY Problem Relation Age of Onset Diabetes Mother Heart Mother Cancer Mother Leukemia Father Colon Cancer Sister Diabetes Sister Emphysema Sister Emphysema Sister Emphysema Sister Emphysema Sister Heart Attack Maternal Grandmother Heart Attack Maternal Grandfather Social History Tobacco Use Smoking status: Former Types: Cigarettes Smokeless tobacco: Never Tobacco comments: Pt smoked 2 packs daily x 49 years, quit 2016 Vaping Use Vaping status: Never Used Substance Use Topics Alcohol use: Not Currently Comment: hasn't drank in 5 months Drug use: Never ALLERGIES: ALLERGIES No Known Allergies CURRENT OUTPATIENT MEDICATIONS: fluticasone/umeclidin/vilanter (TRELEGY ELLIPTA INHALATION) Inhale 1 Puff as instructed once daily. aspirin 81 mg cap Take 81 mg by mouth once daily. atorvastatin (LIPITOR) 20 mg tablet Take 20 mg by mouth once daily. albuterol (PROVENTIL) 2.5 mg /3 mL (0.083 %) nebulizer solution Use 2.5 mg via nebulizer every 4 hours as needed. albuterol HFA (PROVENTIL HFA, VENTOLIN HFA) 90 mcg/actuation inhaler Inhale 1-2 Puffs as instructedevery 4 hours as needed. FARXIGA 5 mg tablet Take 5 mg by mouth once daily. furosemide (LASIX) 40 mg tablet Take 40 mg by mouth once daily. lisinopril 2.5 mg tablet Take 2.5 mg by mouth once daily. LORazepam (ATIVAN) 1 mg tablet Take 1 mg by mouth every 6 hours as needed. metFORMIN ER (FORTAMET) 500 mg 24 hr tablet Take one tablet by mouth in AM & two tablets in PM. metoprolol tartrate, short acting, (LOPRESSOR) 50 mg tablet Take 50 mg by mouth once daily. PARoxetine (PAXIL) 10 mg tablet Take 10 mg by mouth once daily. pregabalin (LYRICA) 150 mg capsule Take 150 mg by mouth once daily. roflumilast (DALIRESP) 250 mcg tablet Take 250 mcg by mouth once daily. RYBELSUS 14 mg tablet Take 7 mg by mouth once daily. tamsulosin (FLOMAX) 0.4 mg Take 0.4 mg by mouth once daily. predniSONE (DELTASONE) 5 mg tablet Take 15 mg by mouth once daily. take three a day to finish course, Dr Hurd (Patient not taking: Reported on 08/17/2024) gabapentin (NEURONTIN) 300 mg capsule Take 1 capsule by mouth once daily for 90 days. VITAMIN B COMPLEX-100 ORAL Take by mouth. (Patient not taking: Reported on 04/21/2023) [id number] INHALATION Inhale as instructed. (Patient not taking: Reported on 04/21/2023) ALBUTEROL INHALATION Inhale 2 Puffs as instructed every 4 hours as needed. (Patient not taking: Reported on 04/27/2024) L.acid/L.casei/B.bif/B.link/FOS (PROBIOTIC BLEND ORAL) Take 1 capsule by mouth once daily. (Patient not taking: Reported on 04/27/2024) REVIEW OF SYSTEMS: GENERAL: No fever, night sweats, weight loss or malaise. All other reviewed and negative other than HPI. PHYSICAL EXAMINATION: VITAL SIGNS: BP 109/65 Pulse 94 Temp 97.3 Wt 185 lb (83.9kg) SpO2 98% GENERAL APPEARANCE: Well appearing, in no acute distress, alert and oriented x3, well-hydrated, well nourished. I spent a total of 30 minutes on the date of the service which included preparing to see the patient, [id number] patient care, completing clinical documentation, obtaining and/or reviewing separately obtained history, counseling and educating the patient/family/caregiver, independently interpretin g results (not separately reported), and communicating results to the patient/family/caregiver. Also review with Rad Onc Electronically Signed: Valdemar Duncan MD August 17, 2024 documented in this encounter[facility] Telephone encounter Note * Telephone Encounter - Dilia Lyons - 08/10/2024 12:39 PM EDT Patient returned call and took sooner appointment for 08/17 as this was the next opening. [facility] Miscellaneous Notes* Telephone Encounter - Dilia Lyons - 08/10/2024 12:39 PM EDT Patient returned call and took sooner appointment for 08/17 as this was the next opening. * Telephone Encounter - Debi Sneed - 08/10/2024 9:13 AM EDT Lvm for patient to return the call. Per Dr. Duncan his pet scan results are in so his 6 appointment can be changed to 08/11 or when patient is able. Debi Sneed documented in this encounterSelect [facility]05-[facility]-2025 Telephone encounter Note * Telephone Encounter - Debi Sneed - 08/10/2024 9:13 AM EDT Lvm for patient to return the call. Per Dr. Duncan his pet scan results are in so his 6 appointment can be changed to 08/11 or when patient is able. Debi Sneed [facility]05-27-2025 Nuclear medicine Diagnostic study note [facility] Imaging Services [address] [place] [address] Hepatobilliary Img w/Pharm Int MR#: [id number] Acct: [id number] Name: REY MEAD Rep #: [id number] : [id number] M [id number] From: Miguel Thompson MD PCP: Dr. Angelica Saleh MD Status: REG CLI Study:Hepatobilliary Img w/Pharm Int Date of Exam: 08/08/24 Exam# [id number] Ordering Dr: Jaleesa Galindo PROCEDURE: HEPATOBILLIARY IMG W/PHARM INT 08/08/2024 REASON FOR EXAM: RUQ PAIN, NAUSEA TECHNIQUE: Intravenous Choletec with planar imaging of the abdomen. 1.7 mcg Kinevac intravenously approximately 60 minutes after the radiopharmaceutical with additional anterior imaging and a region of interest drawn around the gallbladder to calculate a time-activity curve. RADIOPHARMACEUTICAL: Mebrofenin DOSE 5.7mCi COMPARISON: Prior sonogram dated July 07, 2024. FINDINGS: There is good uptake of the radiopharmaceutical by the liver. Normal gallbladder visualization with the gallbladder identified by 30 minutes. Gallbladder Ejection Fraction: 81 % (Normal is >35%) NM/Hepatobilliary Img w/Pharm Int IMPRESSION: Normal gallbladder ejection fraction Reading Location: [place] [address] CC: JACEY Galindo; Dr. Angelica Saleh MD ~ Event Host: Signed [facility]05-20-2025 NoteHNO ID: [id number] Author: EDYTA HEATH RT(R) Service: Nuclear Medicine Author Type: Technologist Type: Progress Notes Filed: 08/01/2024 09:49 Note Text: RADIOLOGY SERVICE PROGRESS NOTE SERVICE DATE: 08/01/2024 SERVICE TIME: 9:48 AM PATIENT IDENTITY VERIFICATION COMPLETED USING TWO (2) STANDARD IDENTIFIERS: Name and Date of confirmed by patient verbally FALL SCREENING: Has the patient had 2 falls in the last year or 1 fall with injury or currently using an Ambulatory Assistive Device (Walker, Cane, Wheelchair, Crutches, etc.)? Yes, Patient High Risk for Falls What interventions were put in place to prevent falls during this visit? Increased Observations by Caregivers PATIENT GENDER DATA: .male ALLERGIES: NA MEDICATIONS REVIEWED: Not applicable PATIENT RELEVANT IMPLANT DATA REVIEWED: Not Applicable PATIENT PRESENTS WITH AN IMPLANTABLE OR ATTACHED ANIMAL RESEARCHER: No CREATININE: Creatinine Date Value Ref Range Status 07/06/2024 0.78 0.73 - 1.22 mg/dL Final 02/18/2024 0.90 0.73 - 1.22 mg/dL Final 11/24/2023 1.07 0.73 - 1.22 mg/dL Final Estimated Glomerular Filtration Rate Date Value Ref Range Status 07/06/2024 97 >=60 mL/min/1.73m? Final Comment: Estimated Glomerular Filtration Rate (eGFR) is calculated using the 2020 CKD-EPI creatinine equation. This equation utilizes serum creatinine, sex, and age as parameters. The creatinine assay has traceable calibration to isotope dilution-mass spectrometry. Refer to KDIGO guidelines for clinical interpretation. In patients with unstable renal function, e.g. those with acute kidney injury, the eGFR may not accurately reflect actual GFR. P.O.C.T. RESULTS: N/A August 01, [address] PERFORMED: No IV SITE: Ambulatory: NM only - direct IV injection in the Right antecubital site POST EXAM PIV STATUS: Discontinued PROCEDURE TYPE: NM INJECT: PET/CT BODY SCAN. 10.8 mCi F18 FDG. Administered By: MO . No other medications given.. ADMINISTRATION TIME: 0943 PATIENT DISCHARGED TO: Ambulatory patient, left [place] department area. Is this a therapy: No A Diagnostic radioactive procedure has taken place, with no further precautions necessary other than routine body substance precautions. More information regarding radiation safety can be found using this link: [email or web address] SIGNATURE: RT Brie(R) PATIENT NAME: Rey Mead DATE: August 01, 2024 TIME: 9:48 AM PAGER[facility]CONTACT [id number] NoteHNO ID: [id number] Author: VALDEMAR DUNCAN MD Service: ? Author Type: Physician Type: Progress Notes Filed: 07/13/2024 10:59 Note Text: (Elements copied from my note dated March 07, 2024, have been reviewed and updated where appropriate, and all reflect current assessment and medical decision making from today's encounter, July 13, 2024) HISTORY OF PRESENT ILLNESS: Rey Mead is a 68 year old male with history right non small cell lung cancer stage I resected 2017, now with metachronous SCC left lung, 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 FRANCK mass found on surveillance scans. 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 Stage IA3 Met with CTS, inoperable. Seeing rad onc for consideration of SBRT. We met to discuss risks and benefits of adjuvant chemotherapy. Here for follow up 07-13-24. Notes some pain intermittent bilateral back radiates to front, mild dull achy pain. CT chest 07-07-24 shows increasing left lung consolidation. Reviewed with Dr Dunaway, feels it is late for radiation pneumonitis to be cause. Post SBRT to FRANCK mass May 2023. Reviewed CT report images. CLINICAL IMPRESSION: Non small cell lung cancer as above. Stage does not predict significant if any benefit from adjuvant chemotherapy, co morbidities raise risks of such therapy, underlying renal function is marginal. Feel risks of adjuvant chemotherapy outweigh benefits. We see CT changes 07-07-24 RECOMMENDATION/PLAN: 1. PET scan when feasible 2. See back after PET Written and verbal health teaching given to patient, patient verbalizes understanding and agrees with treatment plan. PAST MEDICAL HISTORY Diagnosis Date Anxiety state CAD (coronary artery disease) CKD (chronic kidney disease) stage 3, GFR 30-59 ml/min (HCC) COPD (chronic obstructive pulmonary disease) (HCC) Diabetes mellitus (HCC) Former smoker History of bronchoscopy HTN (hypertension) Hypokalemia Lung cancer (HCC) Mixed hyperlipidemia ELLEN (obstructive sleep apnea) Other emphysema (HCC) Other emphysema (HCC) PAST SURGICAL HISTORY Procedure Laterality Date BYPASS GRAFT OTHR,[id number] LOBECTOMY, SEGMENT FAMILY HISTORY Problem Relation Age of Onset Diabetes Mother Heart Mother Cancer Mother Leukemia Father Colon Cancer Sister Diabetes Sister Emphysema Sister Emphysema Sister Emphysema Sister Emphysema Sister Heart Attack Maternal Grandmother Heart Attack Maternal Grandfather Social History Tobacco Use Smoking status: Former Types: Cigarettes Smokeless tobacco: Never Tobacco comments: Pt smoked 2 packs daily x 49 years, quit 2016 Vaping Use Vaping status: Never Used Substance Use Topics Alcohol use: Yes Comment: occ Drug use: Never ALLERGIES: ALLERGIES No Known Allergies CURRENT OUTPATIENT MEDICATIONS: predniSONE (DELTASONE) 5 mg tablet Take 15 mg by mouth once daily. take three a day to finish course, Dr Hurd gabapentin (NEURONTIN) 300 mg capsule Take 1 capsule by mouth once daily for 90 days. VITAMIN B COMPLEX-100 ORAL Take by mouth. (Patient not taking: Reported on 04/21/2023) fluticasone/umeclidin/vilanter (TRELEGY ELLIPTA INHALATION) Inhale 1 Puff as instructed once daily. [id number] INHALATION Inhale as instructed. (Patient not taking: Reported on 04/21/2023) ALBUTEROL INHALATION Inhale 2 Puffs as instructed every 4 hours as needed. (Patient not taking: Reported on 04/27/2024) aspirin 81 mg cap Take 81 mg by mouth once daily. atorvastatin (LIPITOR) 20 mg tablet Take 20 mg by mouth once daily. albuterol (PROVENTIL) 2.5 mg /3 mL (0.083 %) nebulizer solution Use 2.5 mg via nebulizer every 4 hours as needed. albuterol HFA (PROVENTIL HFA, VENTOLIN HFA) 90 mcg/actuation inhaler Inhale 1-2 Puffs as instructed every 4 hours as needed. FARXIGA 5 mg tablet Take 5 mg by mouth once daily. furosemide (LASIX) 40 mg tablet Take 40 mg by mouth once daily. lisinopril 2.5 mg tablet Take 2.5 mg by mouth once daily. LORazepam (ATIVAN) 1 mg tablet Take 1 mg by mouth every 6 hours as needed. metFORMIN ER (FORTAMET) 500 mg 24 hr tablet Take one tablet by mouth in AM AND two tablets in PM. metoprolol tartrate, short acting, (LOPRESSOR) 50 mg tablet Take 50 mg by mouth once daily. PARoxetine (PAXIL) 10 mg tablet Take 10 mg by mouth once daily. pregabalin (LYRICA) 150 mg capsule Take 150 mg by mouth once daily. roflumilast (DALIRESP) 250 mcg tablet Take 250 mcg by mouth once daily. RYBELSUS 14 mg tablet Take 14 mg by mouth once daily. tamsulosin (FLOMAX) 0.4 mg Take 0.4 mg by mouth once daily. L.acid/L.casei/B.bif/B.link/FOS (PROBIOTIC BLEND ORAL) Take 1 capsule by mouth once daily. (Patient not taking: Reported on 04/27/2024) REVIEW OF SYSTEMS: GENERAL: No fever, night sweats, weight loss or malaise. All other reviewed and negative other than HPI. PHYSICAL EXAMINATION: VITAL SIGNS: BP 103/69 Pulse 89 Temp 97 (more content not included)... [facility]05-01-2025 History of Present illness Narrative* Valdemar Duncan MD - 07/13/2024 9:37 AM EDT (Elements copied from my note dated March 07, 2024, have been reviewed and updated where appropriate, and all reflect current assessment and medical decision making from today's encounter, July 13, 2024) HISTORY OF PRESENT ILLNESS: Rey Mead is a 68 year old male with history right non small cell lung cancer stage I resected 2016, now with metachronous SCC left lung, 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 FRANCK mass found on surveillance scans. 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 Stage IA3 Met with CTS, inoperable. Seeing rad onc for consideration of SBRT. We met to discuss risks and benefits of adjuvant chemotherapy. Here for follow up 07-13-24. Notes some pain intermittent bilateral back radiates to front, mild dull achy pain. CT chest 07-07-24 shows increasing left lung consolidation. Reviewed with Dr Dunaway, feels it is late for radiation pneumonitis to be cause. Post SBRT to FRANCK mass May 2023. Reviewed CT report images. CLINICAL IMPRESSION: Non small cell lung cancer as above. Stage does not predict significant if any benefit from adjuvant chemotherapy, co morbidities raise risks of such therapy, underlying renal function is marginal. Feel risks of adjuvant chemotherapy outweigh benefits. We see CT changes 07-07-24 RECOMMENDATION/PLAN: 1. PET scan when feasible 2. See back after PET Written and verbal health teaching given to patient, patient verbalizes understanding and agrees with treatment plan. PAST MEDICAL HISTORY Diagnosis Date Anxiety state CAD (coronary artery disease) CKD (chronic kidney disease) stage 3, GFR 30-59 ml/min (HCC) COPD (chronic obstructive pulmonary disease) (HCC) Diabetes mellitus (HCC) Former smoker History of bronchoscopy HTN (hypertension) Hypokalemia Lung cancer (HCC) Mixed hyperlipidemia ELLEN (obstructive sleep apnea) Other emphysema (HCC) Other emphysema (HCC) PAST SURGICAL HISTORY Procedure Laterality Date BYPASS GRAFT OTHR,GIFTH-SZN-CUF LOBECTOMY, SEGMENT FAMILY HISTORY Problem Relation Age of Onset Diabetes Mother Heart Mother Cancer Mother Leukemia Father Colon Cancer Sister Diabetes Sister Emphysema Sister Emphysema Sister Emphysema Sister Emphysema Sister Heart Attack Maternal Grandmother Heart Attack Maternal Grandfather Social History Tobacco Use Smoking status: Former Types: Cigarettes Smokeless tobacco: Never Tobacco comments: Pt smoked 2 packs daily x 49 years, quit 2016 Vaping Use Vaping status: Never Used Substance Use Topics Alcohol use: Yes Comment: occ Drug use: Never ALLERGIES: ALLERGIES No Known Allergies CURRENT OUTPATIENT MEDICATIONS: predniSONE (DELTASONE) 5 mg tablet Take 15 mg by mouth once daily. take three a day to finish course, Dr Hurd gabapentin (NEURONTIN) 300 mg capsule Take 1 capsule by mouth once daily for 90 days. VITAMIN B COMPLEX-100 ORAL Take by mouth. (Patient not taking: Reported on 04/21/2023) fluticasone/umeclidin/vilanter (TRELEGY ELLIPTA INHALATION) Inhale 1 Puff as instructed once daily. [id number]-[id number] INHALATION Inhale as instructed. (Patient not taking: Reported on 04/21/2023) ALBUTEROL INHALATION Inhale 2 Puffs as instructed every 4 hours as needed. (Patient not taking: Reported on 04/27/2024) aspirin 81 mg cap Take 81 mg by mouth once daily. atorvastatin (LIPITOR) 20 mg tablet Take 20 mg by mouth once daily. albuterol (PROVENTIL) 2.5 mg /3 mL (0.083 %) nebulizer solution Use 2.5 mg via nebulizer every 4 hours as needed. albuterol HFA (PROVENTIL HFA, VENTOLIN HFA) 90 mcg/actuation inhaler Inhale 1-2 Puffs as instructedevery 4 hours as needed. FARXIGA 5 mg tablet Take 5 mg by mouth once daily. furosemide (LASIX) 40 mg tablet Take 40 mg by mouth once daily. lisinopril 2.5 mg tablet Take 2.5 mg by mouth once daily. LORazepam (ATIVAN) 1 mg tablet Take 1 mg by mouth every 6 hours as needed. metFORMIN ER (FORTAMET) 500 mg 24 hr tablet Take one tablet by mouth in AM & two tablets in PM. metoprolol tartrate, short acting, (LOPRESSOR) 50 mg tablet Take 50 mg by mouth once daily. PARoxetine (PAXIL) 10 mg tablet Take 10 mg by mouth once daily. pregabalin (LYRICA) 150 mg capsule Take 150 mg by mouth once daily. roflumilast (DALIRESP) 250 mcg tablet Take 250 mcg by mouth once daily. RYBELSUS 14 mg tablet Take 14 mg by mouth once daily. tamsulosin (FLOMAX) 0.4 mg Take 0.4 mg by mouth once daily. L.acid/L.casei/B.bif/B.link/FOS (PROBIOTIC BLEND ORAL) Take 1 capsule by mouth once daily. (Patient not taking: Reported on 04/27/2024) REVIEW OF SYSTEMS: GENERAL: No fever, night sweats, weight loss or malaise. All other reviewed and negative other than HPI. PHYSICAL EXAMINATION: VITAL SIGNS: BP 103/69 Pulse 89 Temp 97.7 Resp 12 Wt 194 lb (88.0kg) SpO2 98% GENERAL APPEARANCE: Well appearing, in no acute distress, alert and oriented x3, well-hydrated, well nourished. I spent a total of 30 minutes on the date of the service which included preparing to see the patient, [id number] patient care, completing clinical documentation, obtaining and/or reviewing separately obtained history, counseling and educating the patient/family/caregiver, independently interpretin g results (not separately reported), and communicating results to the patient/family/caregiver. Electronically Signed: Valdemar Duncan MD July 13, 2024 [facility] NoteHNO ID: [id number] Author: MERARI OLSON RT(R) Service: ? Author Type: Insurance Verification Rep Type: Progress Notes Filed: 07/06/2024 14:32 Note Text: Radiology Service Progress Note DATE OF SERVICE: July 06, 2024 TIME: 2:31 PM PATIENT IDENTITY VERIFICATION COMPLETED USING TWO (2) STANDARD IDENTIFIERS: Name and Date of confirmed by patient verbally. FALL SCREENING: Has the patient had 2 falls in the last year or 1 fall with injury or currently using an Ambulatory Assistive Device (Walker, Cane, Wheelchair, Crutches, etc.)? No PATIENT GENDER DATA: Assigned male at PATIENT RELEVANT IMPLANT DATA REVIEWED: Yes PATIENT PRESENTS WITH AN IMPLANTABLE OR ATTACHED ANIMAL RESEARCHER: No ALLERGIES: Reviewed and unchanged CONTRAST ALLERGY: NO. EXAM: CT -CONTRAST INDUCED NEPHROPATHY RISK FACTORS: Patient age > 60 years CREATININE: Creatinine Date Value Ref Range Status 07/06/2024 0.78 0.73 - 1.22 mg/dL Final 02/18/2024 0.90 0.73 - 1.22 mg/dL Final 11/24/2023 1.07 0.73 - 1.22 mg/dL Final Estimated Glomerular Filtration Rate Date Value Ref Range Status 07/06/2024 97 >=60 mL/min/1.73m? Final Comment: Estimated Glomerular Filtration Rate (eGFR) is calculated using the 2020 CKD-EPI creatinine equation. This equation utilizes serum creatinine, sex, and age as parameters. The creatinine assay has traceable calibration to isotope dilution-mass spectrometry. Refer to KDIGO guidelines for clinical interpretation. In patients with unstable renal function, e.g. those with acute kidney injury, the eGFR may not accurately reflect actual GFR. P.O.C.T. RESULTS: POC done: Yes, See Lab Tab July 06, 2024 TREATMENT: N/A PERIPHERAL IV DATA: Ambulatory: A peripheral IV was started in the Left antecubital site with a Angio cath: 22 gauge. RADIOLOGY DEPARTMENT: CT; Exam(s) Completed: Chest SIGNATURE: RT Rl(R) PATIENT NAME: Rey Mead DATE: July 06, 2024 TIME: 2:31 [facility]04-22-2025 Telephone encounter Note* Telephone Encounter - Shilpi Ware RN - 07/04/2024 2:19 PM EDT Order pended. Keiry Ware RN [facility] Work Phone: 1(755) 200-418104-22-2025 Miscellaneous Notes* Telephone Encounter - Shilpi Ware RN - 07/04/2024 2:19 PM EDT Order pended. Keiry Ware RN * Telephone Encounter - Maite Orellana PSS - 07/04/2024 1:[address] order for stat creatinine order for pt , pt appt on 07/06/[address] documented in [facility] Telephone encounter Note * Telephone Encounter - Maite Orellana PSS - 07/04/2024 1:[address] order for stat creatinine order for pt , pt appt on 07/06/[address] [facility]04-15-20[facility] History of Present illness Narrative* Florencia Larsen Tech - 06/27/2024 12:20 PM EDT Radiology Service Progress Note PATIENT NAME: Rey Mead DATE OF SERVICE: June 27, 2024 TIME: 12:19 PM PATIENT IDENTITY VERIFICATION COMPLETED USING TWO (2) IDENTIFIERS: Name and Date of confirmedby patient verbally. FALL SCREENING: Has the patient had 2 falls in the last year or 1 fall with injury or currently using an Ambulatory Assistive Device (Walker, Cane, Wheelchair, Crutches, etc.)? No PATIENT GENDER DATA: Assigned male at PATIENT RELEVANT IMPLANT DATA REVIEWED: Not Applicable PATIENT PRESENTS WITH AN IMPLANTABLE OR ATTACHED ANIMAL RESEARCHER: No RADIOLOGY DEPARTMENT: General X-ray: Exam(s) Completed: Chest X-Ray PERIPHERAL IV DATA: Not applicable SIGNED BY: Boo Mensah June 27, 2024 12:19 PM documented in this encounterSelect [facility]04-[facility]-2025 NoteHNO ID: [id number] Author: FLORENCIA LARSEN Tech Service: ? Author Type: Technologist Type: Progress Notes Filed: 06/27/2024 12:32 Note Text: Radiology Service Progress Note PATIENT NAME: Rey Mead DATE OF SERVICE: June 27, 2024 TIME: 12:19 PM PATIENT IDENTITY VERIFICATION COMPLETED USING TWO (2) IDENTIFIERS: Name and Date of confirmed by patient verbally. FALL SCREENING: Has the patient had 2 falls in the last year or 1 fall with injury or currently using an Ambulatory Assistive Device (Walker, Cane, Wheelchair, Crutches, etc.)? No PATIENT GENDER DATA: Assigned male at PATIENT RELEVANT IMPLANT DATA REVIEWED: Not Applicable PATIENT PRESENTS WITH AN IMPLANTABLE OR ATTACHED ANIMAL RESEARCHER: No RADIOLOGY DEPARTMENT: General X-ray: Exam(s) Completed: Chest X-Ray PERIPHERAL IV DATA: Not applicable SIGNED BY: Boo Mensah June 27, 2024 12:19 [facility]04-14-2025 Evaluation note* Diagnosis Onset Date Resolution Status Admit Date RUQ pain acute June 26 11:22am RUQ pain acute July 24, 2024 9:58am Weight loss acute July 24 9:58am Acute hypokalemia acute September 042024 2:44pm Acute hyponatremia acute August 142024 2:44pm Anemia acute September 04 2:44pm Sepsis acute September 04 2:44pm Septic shock acute September 04, 025 2:44pm Weakness acute September 04 2:44pm COPD (chronic obstructive pulmonary disease) chronic September 04 2:44pm MSSA bacteremia resolved August 2:44pm Pneumonia resolved September 04 2:44pm Anemia acute September 19, 2024 5:12pm Atherosclerosis of left lowe r extremity with gangrene acute September 5:12pm Gangrene of left foot acute Sep 5:12pm Elevated troponin level not due to acute coronary syndrome resolved September 19, 2024 5:12pm Hypotension resolved September 19 5:12pm Pneumonia resolved September 19, 2024 5:12pm PAD (peripheral artery disease) inac tive September 19, 2024 5:12pm PVD (peripheral vascular disease) deleted September 19, 2024 5 :12pm Anemia acute October 05 9:54am Gangrene of left foot acute Sep 9:54am Hospital discharge follow-up acute October 05, 2024 9:54am [facility] Work Phone: 1(907) 643-508603-31-2025 Telephone encounter Note* Telephone Encounter - Alana Sanchez LPN - 06/12/2024 8:29 AM EDT Prescription Refill Information The patient has been identified by name and date of : Yes Caregiver verified no other encounters exist for this prescription request: Yes Caregiver confirmed with patient/requestor that no other refills are due, in the near future, with this provider at this time: Yes The last office visit in the department: 03/07/2024 Does the patient have a future office visit with this provider/department: Yes Requested Prescriptions Pending Prescriptions Disp Refills gabapentin (NEURONTIN) 300 mg capsule [Pharmacy Med Name: GABAPENTIN 300 MG CAPSULE] 30 capsule 0 Sig: Take 1 capsule by mouth once daily. Alana Sanchez LPN June 12, 2024 8:30 AM [facility]03-31-2025 Miscellaneous Notes* Telephone Encounter - Alana Sanchez LPN - 06/12/2024 8:29 AM EDT Prescription Refill Information The patient has been identified by name and date of : Yes Caregiver verified no other encounters exist for this prescription request: Yes Caregiver confirmed with patient/requestor that no other refills are due, in the near future, with this provider at this time: Yes The last office visit in the department: 03/07/2024 Does the patient have a future office visit with this provider/department: Yes Requested Prescriptions Pending Prescriptions Disp Refills gabapentin (NEURONTIN) 300 mg capsule [Pharmacy Med Name: GABAPENTIN 300 MG CAPSULE] 30 capsule 0 Sig: Take 1 capsule by mouth once daily. Alana Sanchez LPN June 12, 2024 8:30 AM documented in this encounter[facility]03-28-2025 [facility]charge [facility] Department [address] [place] [address] Emergency Department Summary 06/09/24 MR#: [id number] Acct: [id number] Name: REY MEAD Rep #:[id number] : [id number] From: Carroll Celeste MD PCP: Dr. Angelica Saleh MD Status:REG ER Location: ED HPI HPI - GI History of Present Illness Chief Complaint: Abd Pain Informant: patient Abdominal Pain/Flank Pain Onset: Month(s) (1 to 2 months.) Context: Gradual Onset Timing: Continuous and - (Daily pain. Constant.) Location: Diffuse and Epigastric Current Severity: Moderate Maximum Severity: Moderate Worsened by: Nothing Relieved by: Nothing Nausea/Vomiting/Emesis GI Symptom: Negative for Nausea or Vomiting Diarrhea/Melena/Hematochezia GI Symptom: Negative for Diarrhea, Melena or Hematochezia Associated Symptoms Associated Symptoms: Negative for Dysuria, Frequency, Hematuria or Urgency Narrative Narrative: 69-year-old male history of diabetes, CABG in 2016, lung CA with a right lower lobe resection and left lower lung CA with radiation treatment. He said no abdominal surgeries he is chronic kidney disease stage III. Patient states the last 1 and half to 2 months he has had epigastric abdominal pain at times radiates to his armpits and throughout his abdomen. Said this worked up he had a recent CTA of his abdomen and pelvis and chest which showed a AAA but it was only around 3 cm. He does not knowa specific cause for the pain. He states Vicodin helps. Denies any dysuria. Denies any constipationor significant diarrhea. He has had about 15 pound weight loss. Prior similar symptoms: Yes Recent Illness/Hospitalization: No PFSH PFSH Medical History Alcohol use Excessive bleeding History of echocardiogram History of stress test Cardiology follow-up encounter Chest pain Vitamin D deficiency Left adrenal mass CAD (coronary artery disease) Blind Cancer Depression Anxiety Diabetes History of renal disease Prostate disease DVT (deep venous thrombosis) High cholesterol Easy bruising Umbilical hernia Neuropathy Injury of head and neck Syncope Former smoker On home oxygen therapy CPAP (continuous positive airway pressure) dependence COPD (chronic obstructive pulmonary disease) Shortness of breath on exertion History of edema Hypertension Hx of fracture of foot Hx of fracture of leg Home Medications ?Medication ?Instructions ?Recorded ?Last Taken ?Type albuterol sulfate 2.5 mg/3 mL 2.5 mg inhalation DAILY 01/08/23 05/30/24 History (0.083 %) solution for nebulization albuterol sulfate 90 mcg/actuation 2 puff inhalation P RN PRN 01/08/23 05/30/24 History aerosol inhaler shortness of breath or wheez ing aspirin 81 mg tablet,delayed 81 mg PO DAILY 01/08/23 0 05/23/24 History release atorvastatin 20 mg tablet 20 mg PO QHS 01/08/23 History dapagliflozin propanediol 5 mg 5 mg PO DAILY 01/08/23 05/23/24 History tablet (Farxiga) fluticasone fur. 100 mcg-umeclid 1 inh inhalation GURU Y 01/08/23 05/31/24 History 62.5 mcg-vilant 25 mcg inhalat.powder (Trelegy Ellipta) furosemide 40 mg tablet 40 mg PO DAILY 01/08/2305/13 History paroxetine HCl 10 mg tablet 10 mg PO DAILY 01/08/23 History pregabalin 150 mg capsule 150 mg PO .QID 01/08/2305/13 History roflumilast 250 mcg tablet 250 mcg PO DAILY 01/08/23 0 05/30/24 History semaglutide 14 mg tablet (Rybelsus) 14 mg PO DAILY 05/23/24 History tamsulosin 0.4 mg capsule 0.4 mg PO BID 01/08/2305/30 History lorazepam 1 mg tablet 1 mg PO TID 03/22/24 5 History metformin 500 mg tablet,extended 1,500 mg PO QHS 03/2205/30/24 History release 24hr (osmotic) metoprolol tartrate 50 mg tablet 50 mg PO BID 03/22/24 05/30/24 History gabapentin 300 mg capsule 300 mg PO QHS 05/10/2405/30 History pantoprazole 40 mg tablet,delayed 40 mg PO QDAY #90 ta bs 05/10/24 05/30/24 Rx release hydrocodone-acetaminophen 5-325mg 1 tab PO Q6H PRN PRN pain 05/31/24 Unknown History 5mg-325mg nystatin 100,000 unit/mL oral 100,000 unit PO TID 14 d ays #42 mL 05/31/24 Unknown Rx suspension lidocaine 5 % topical patch 1 patch topical QDAY #30 e a 06/08/24 Unknown Rx (Lidoderm) Allergy/AdvReac Type Severity Reaction Status Date / Time No Known Allergies Allergy Verified 06/09/24 12:20 Family History Mother Cancer Heart disease Father Cancer Sister Cancer Heart disease Surgical History History of bronchoscopy Hx of biopsy History of lobectomy of lung Hx of oral surgery History of open heart surgery (05/08/15) Social History Smoking Status: Former smoker alcohol intake: current alcohol intake frequency: a few times a month Alcohol type: beer substance use type: does not use ROS ROS ED ROS Narrative Abdominal pain. Weight loss. Constitutional Constitutional ED: Denies chills or fever(s) ENT ENT ED: Denies ear pain Cardiovascular Cardiovascular: Denies chest pain Respiratory/Chest Respiratory/Chest: Denies cough or dyspnea Gastrointestinal Gastrointestinal: Reports abdominal pain and other Details: 15 pound weight lossin 1 to 2 months. ; Denies constipation, diarrhea, melena, nausea or vomiting Genitourinary Genitourinary ED: Denies dysuria or hematuria Musculoskeletal Musculoskeletal: Denies arthralgias or back pain Integumentary Denies abscess or Abrasions Neurologic Neurologic: Denies headache(s) Psychiatric Psychiatric: Denies anxiety or depression Endocrine Endocrinology: Denies polydipsia Hematologic/Lymphatic Hematologic/Lymphatic: Denies easy bleeding or easy bruising Allergic/Immunologic Allergic/Immunologic ED: Denies mouth swelling, tongue swelling or urticaria EXAM Physical Exam Narrative Exam Narrative: 61-year-old male sitting upright in bed. Family in the room. Vital signs are stable afebrile. He isin no acute distress. H EENT exam pupils round react light. Without dentition. Moist mucous membranes. Neck nontender no lymphadenopathy. Lungs clear to auscultation bilaterally. Heart regular rhythmr ate about 80 no murmur. Chest wall ribs nontender. Abdomen soft nondistended normal bowel sounds without peritoneal signs. No pulsatile mass appreciated. No obstruction. He is mildly tender epigastric region. Right upper right lowerquadrant unremarkable. No hernia or mass. Moving all 4 extremities. Nontenderno edema. Back nontender. Neurologically is awake alert. Const Vital Signs: 06/09/24 12:20 06/09/24 14:19 Temperature 97.7 F L Temperature Source Oral Pulse Rate 92 77 Respiratory Rate 15 18 Blood Pressure 109/71 124/76 H Blood Pressure Mean 83 92 Pulse Ox 98 95 Oxygen Delivery Method Room Air Room Air Positive well nourished and well developed; Negative for cachectic, contracturesor unkempt General Appearance ED: well developed and NAD; Negative for unkempt, cachectic or contractures Nutritional Appearance: Negative for cachectic HEENT Reports moist mucous membranes normocephalic and atraumatic Eyes PERRL and EOMs intact bilaterally General Eye ED: Negative for pale conjunctiva or scleral icterus Neck no lymphadenopathy, supple and no JVD General: Negative for tenderness Carotids: Negative for other Resp normal respiratory effort and clear to auscultation bilaterally Effort and Inspection: Negative for respiratory distress Auscultation: Negative for rales, rhonchi, wheezes or diminished lung sounds Cardio regular rate, regular rhythm, S1 normal heart sound, S2 normal heart sound and no murmurs Psych Appearance: Negative for unkempt MDM MDM MDM Narrative Medical decision making narrative: I have personally performed a face to face assessment of the patient and have reviewed the FRANCOISE Note. I performed a substantive portion of the visit including all aspects of the following. My andersen findings include: History is [69-year-old male with 1-1/2 to 2-month history of abdominal and chest pain with negative workups. Requesting pain medication. He has a known AAA.] Exam is [well-appearing 61-year-old male. Vital signs stable afebrile. H EENT exam moist mucous membranes. Unremarkable. Neck nontender. Lungs clear. Heart regular rhythm rate about 80 no murmur. Chest wall and ribs nontender. Abdomen is soft nondistended normal bowel sounds without peritoneal signs. Mild epigastric tenderness. No rebound guarding rigidity. No pulsatile mass. Moving all 4 extremities. Neurologically is awake alert no focal motor deficits.] Medical Decision Making [patient with known abdominal pain without specific cause that recently hada full workup including CAT scan and also an upper endoscopy without a specific etiology. His labs today do not really show any significant abnormalities. His repeat abdominal CT shows a stable AAA but nothing else acute. Patient was given Dilaudid here. I explained to him that he will not be givennarcotic prescription for home and he can follow-up with his primary care physician.] Other additions or changes: [ repeat exam at 5:20 PM I like discussion with patient and his son explained him we cannot treat his chronic pain that we do not have a specific diagnosis for nor has anybowels, blaming the other people he is following up with with narcotic prescriptions.] He will be discharged to home. Use Motrin Tylenol for pain. Follow-up with his new primary care physician and pain management. History & Record Review Discussion w/independent historian: Patient and Family Additional record(s) reviewed:: Prior inpatient record, Prior outpatient record,Prior ED visit and Prior labs Lab Data Attestation: I reviewed the patient's lab results. Lab results narrative: CBC shows a white count 12.9. H&H 11.1 and 34.6. Platelets 249. Electrolytes show sodium 131. Potassium 5.3. Gap is 15. BUN and creatinine are 21 and 1. Glucose 289. Liver enzymes normal. Lipase 46. Labs: Laboratory Results - last 24 hr 06/09/24 12:32 WBC 12.9 H RBC 3.94 L Hgb 11.1 L Hct 34.6 L MCV 87.8 MCH 28.2 MCHC 32.1 RDW Std Deviation 51.3 H RDW Coeff of Jaquan 16.1 H Plt Count 249 MPV 9.3 Immature Gran % (Auto) 0.800 Neut % (Auto) 82.6 H Lymph % (Auto) 10.9 L Meeker % (Auto) 5.3 Eos % (Auto) 0.2 Baso % (Auto) 0.2 Absolute Neuts (auto) 10.7 H Absolute Lymphs (auto) 1.41 Nucleated RBC % 0 Sodium 131 L Potassium 5.3 H Chloride 94 L Carbon Dioxide 22.1 Anion Gap 15 BUN 21 H Creatinine 1.05 Est GFR (MDRD) Non-Af 77 BUN/Creatinine Ratio 20.3 H Glucose 289 H Calcium 10.3 Total Bilirubin 0.21 AST 11 ALT 13 Alkaline Phosphatase 81 Total Protein 8.0 Albumin 3.8 Globulin 4.2 Albumin/Globulin Ratio 0.9 Lipase 46 Discharge Plan Triage Chief Complaint: Abd Pain ED Provider: Carroll Celeste Dx/Rx/DC Orders Clinical Impression: Abdominal pain of unknown etiology, Diabetes, Chronic kidney disease Instructions: ED Abdominal Pain Unkn Cause Male... Prescriptions: No Action gabapentin 300 mg capsule 300 mg PO QHS pantoprazole 40 mg tablet,delayed release (DR/EC) 40 mg PO QDAY Qty: 90 1RF Rx Instructions: take 30 minutes before breakfast every morning furosemide 40 mg tablet 40 mg PO DAILY paroxetine HCl 10 mg tablet 10 mg PO DAILY pregabalin 150 mg capsule 150 mg PO .QID roflumilast 250 mcg tablet 250 mcg PO DAILY Rybelsus 14 mg tablet 14 mg PO DAILY tamsulosin 0.4 mg capsule 0.4 mg PO BID Patient Comments: TAKE 2 CAPSULES BY MOUTH EVERY DAY WITH A MEAL albuterol sulfate 2.5 mg /3 mL (0.083 %) solution for nebulization 2.5 mg inhalation DAILY albuterol sulfate 90 mcg/actuation HFA aerosol inhaler 2 puff INHALATION PRN PRN (Reason: shortness of breath or wheezing) aspirin 81 mg tablet,delayed release (DR/EC) 81 mg PO DAILY atorvastatin 20 mg tablet 20 mg PO QHS dapagliflozin propanediol [Farxiga] 5 mg tablet 5 mg PO DAILY Trelegy Ellipta 100-62.5-25 mcg blister with device 1 inh INHALATION DAILY metformin 500 mg tablet extended release 24hr 1,500 mg PO QHS Patient Comments: TAKE 2 tabs in the AM and One tab in PM Rx Instructions: TAKE 2 tabs in the AM and One tab in PM metoprolol tartrate 50 mg tablet 50 mg PO BID lorazepam 1 mg tablet 1 mg PO TID hydrocodone-acetaminophen 5-325 mg tablet 1 tab PO Q6H PRN PRN (Reason: pain) nystatin 100,000 unit/mL suspension 100,000 unit PO TID 14 Days Qty: 42 2RF Rx Instructions: swish and spit lidocaine [Lidoderm] 5 % adhesive patch,medicated 1 patch topical QDAY Qty: 30 1RF Rx Instructions: leave on most painful area for up to 12 hrs Primary Care Provider: Angelica Saleh Referrals: william [Other] Angelica Saleh MD [Primary Care Provider] - As soon as possible Activity Restrictions/Additional Instructions: No specific cause for your abdominal pain. Follow-up with your primary care physician to be referred to pain management forfurther evaluation and possible treatment. Print Language: Czech Disposition Disposition: Home, Self Care What to do if you have Problems For any increased pain, shortness of breath, bleeding, nausea or vomiting, chestpain, or any unexpected problems, contact your Primary Care Provider. Call [facility] ([phone]) or report tothe closest Emergency Room. Call 911 if necessary. 06/09/24 1728 Cosigner Signature (if applicable): CC: Dr. Angelica Saleh MD ~ Signed [facility]03-28-2025 Radiology Diagnostic study note [facility] Imaging Services [address] [place] [address] Abdomen/Pelvis W IV Cont ONLY MR#: [id number] Acct: [id number] Name: REY MEAD Rep #: [id number] : 1955 M 69 From: Elisabeth Almanzar MD PCP: Dr. Angelica Saleh MD Status: REG ER Study:Abdomen/Pelvis W IV Cont ONLY Date of E xam: 06/09/24 Exam# [id number] Ordering Dr: Lemuel Celeste MD PROCEDURE: ABDOMEN/PELVIS W IV CONT ONLY 06/09/2024 REASON FOR EXAM: ABD PAIN. KNOWN AAA. I DO NOT THINK THAT IS CASUE. TECHNIQUE: Abdomen and pelvis CT with intravenous contrast. Coronal and Sagittal reconstruction series were provided. One or more dose reduction techniques were used (e.g., Automated exposure control, adjustment of the mA and/or kV according to patient size, use of iterative reconstruction technique. COMPARISON: 05/09/2024 FINDINGS: Lower chest: There is minimal atelectasis in the right lung base. Liver: Unremarkable. Biliary/gallbladder: Unremarkable. Pancreas: Unremarkable. Spleen: The spleen is enlarged measuring 15.8 cm. Adrenal glands: Stable left adrenal nodule measuring 2.5 cm. Kidneys: Contrast excretion in the collecting system. No hydronephrosis identified. Gastrointestinal/peritoneum: No acute abnormality.The appendix is unremarkable.No free air or free fluid. Vascular: Advanced atherosclerotic disease is present with multifocal areas of coarse intraluminal calcifications involving the celiac trunk, abdominal aorta and iliofemoral vessels. An infrarenal aortic aneurysm is stable in size when measured in a similar fashion measuring 4.2 x 3.6 cm. 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 Lymph nodes: No enlarged lymph nodes by CT size criteria. Pelvic organs: Unremarkable. Bladder: There is significant distention of the urinary bladder to the level of the umbilicus. Bones: Mild multilevel degenerative changes are present in the visualized spine. Soft tissues: There is a fat containing umbilical hernia measuring 3.[address]/Abdomen/Pelvis W IV Cont ONLY IMPRESSION: 1. Significant distention of the urinary bladder to the level of the umbilicus, possibly due to bladder outlet obstruction. Correlate with urine output. 2. Stable size and appearance of the infrarenal aortic aneurysm and left common iliac aneurysm. 3. Severe advanced atherosclerotic disease diffusely. 4. Splenomegaly. [facility] CC: Dr. Angelica Saleh MD; Dr. Carroll Celeste MD ~ Event Host: Signed [facility]03-28-2025 Discharge summary Author Carroll Celeste [facility] Note Date/Time June 09, 2024 5:2 8pm [facility] Medical Records Department [address] [place] [address] Emergency Department Summary 06/09/24 MR#: [id number] Acct: [id number] Name: REY MEAD Rep #:[id number] : 1955 69 From: Carroll Celeste MD PCP: Dr. Angelica Saleh MD Status:REG ER Location: ED HPI HPI - GI History of Present Illness Chief Complaint: Abd Pain Informant: patient Abdominal Pain/Flank Pain Onset: Month(s) (1 to 2 months.) Context: Gradual Onset Timing: Continuous and - (Daily pain. Constant.) Location: Diffuse and Epigastric Current Severity: Moderate Maximum Severity: Moderate Worsened by: Nothing Relieved by: Nothing Nausea/Vomiting/Emesis GI Symptom: Negative for Nausea or Vomiting Diarrhea/Melena/Hematochezia GI Symptom: Negative for Diarrhea, Melena or Hematochezia Associated Symptoms Associated Symptoms: Negative for Dysuria, Frequency, Hematuria or Urgency Narrative Narrative: 69-year-old male history of diabetes, CABG in 2016, lung CA with a right lower lobe resection and left lower lung CA with radiation treatment. He said no abdominal surgeries he is chronic kidney disease stage III. Patient states the last 1 and half to 2 months he has had epigastric abdominal pain at times radiates to his armpits and throughout his abdomen. Said this worked up he had a recent CTA of his abdomen and pelvis and chest which showed a AAA but it was only around 3 cm. He does not know a specific cause for the pain. He states Vicodin helps. Denies any dysuria. Denies any constipation or significant diarrhea. He has had about 15 pound weight loss. Prior similar symptoms: Yes Recent Illness/Hospitalization: No PFSH [facility] Medical History Alcohol use Excessive bleeding History of echocardiogram History of stress test Cardiology follow-up encounter Chest pain Vitamin D deficiency Left adrenal mass CAD (coronary artery disease) Blind Cancer Depression Anxiety Diabetes History of renal disease Prostate disease DVT (deep venous thrombosis) High cholesterol Easy bruising Umbilical hernia Neuropathy Injury of head and neck Syncope Former smoker On home oxygen therapy CPAP (continuous positive airway pressure) dependence COPD (chronic obstructive pulmonary disease) Shortness of breath on exertion History of edema Hypertension Hx of fracture of foot Hx of fracture of leg Home Medications ?Medication ?Instructions ?Recorded ?Last Taken ?Type albuterol sulfate 2.5 mg/3 mL 2.5 mg inhalation DAILY 01/08/23 05/30/24 History (0.083 %) solution for nebulization albuterol sulfate 90 mcg/actuation 2 puff inhalation P RN PRN 01/08/23 05/30/24 History aerosol inhaler shortness of breath or wheez ing aspirin 81 mg tablet,delayed 81 mg PO DAILY 01/08/23 0 05/23/24 History release atorvastatin 20 mg tablet 20 mg PO QHS 01/08/23 History dapagliflozin propanediol 5 mg 5 mg PO DAILY 01/08/23 05/23/24 History tablet (Farxiga) fluticasone fur. 100 mcg-umeclid 1 inh inhalation GURU Y 01/08/23 05/31/24 History 62.5 mcg-vilant 25 mcg inhalat.powder (Trelegy Ellipta) furosemide 40 mg tablet 40 mg PO DAILY 01/08/2305/13 History paroxetine HCl 10 mg tablet 10 mg PO DAILY 01/08/23 History pregabalin 150 mg capsule 150 mg PO .QID 01/08/2305/13 History roflumilast 250 mcg tablet 250 mcg PO DAILY 01/08/23 0 05/30/24 History semaglutide 14 mg tablet (Rybelsus) 14 mg PO DAILY 05/23/24 History tamsulosin 0.4 mg capsule 0.4 mg PO BID 01/08/2305/30 History lorazepam 1 mg tablet 1 mg PO TID 03/22/24 5 History metformin 500 mg tablet,extended 1,500 mg PO QHS 03/2205/30/24 History release 24hr (osmotic) metoprolol tartrate 50 mg tablet 50 mg PO BID 03/22/24 05/30/24 History gabapentin 300 mg capsule 300 mg PO QHS 05/10/2405/30 History pantoprazole 40 mg tablet,delayed 40 mg PO QDAY #90 ta bs 05/10/24 05/30/24 Rx release hydrocodone-acetaminophen 5-325mg 1 tab PO Q6H PRN PRN pain 05/31/24 Unknown History 5mg-325mg nystatin 100,000 unit/mL oral 100,000 unit PO TID 14 d ays #42 mL 05/31/24 Unknown Rx suspension lidocaine 5 % topical patch 1 patch topical QDAY #30 e a 06/08/24 Unknown Rx (Lidoderm) Allergy/AdvReac Type Severity Reaction Status Date / Time No Known Allergies Allergy Verified 06/09/24 12:20 Family History Mother Cancer Heart disease Father Cancer Sister Cancer Heart disease Surgical History History of bronchoscopy Hx of biopsy History of lobectomy of lung Hx of oral surgery History of open heart surgery (05/08/15) Social History Smoking Status: Former smoker alcohol intake: current alcohol intake frequency: a few times a month Alcohol type: beer substance use type: does not use ROS ROS ED ROS Narrative Abdominal pain. Weight loss. Constitutional Constitutional ED: Denies chills or fever(s) ENT ENT ED: Denies ear pain Cardiovascular Cardiovascular: Denies chest pain Respiratory/Chest Respiratory/Chest: Denies cough or dyspnea Gastrointestinal Gastrointestinal: Reports abdominal pain and other Details: 15 pound weight lossin 1 to 2 months. ; Denies constipation, diarrhea, melena, nausea or vomiting Genitourinary Genitourinary ED: Denies dysuria or hematuria Musculoskeletal Musculoskeletal: Denies arthralgias or back pain Integumentary Denies abscess or Abrasions Neurologic Neurologic: Denies headache(s) Psychiatric Psychiatric: Denies anxiety or depression Endocrine Endocrinology: Denies polydipsia Hematologic/Lymphatic Hematologic/Lymphatic: Denies easy bleeding or easy bruising Allergic/Immunologic Allergic/Immunologic ED: Denies mouth swelling, tongue swelling or urticaria EXAM Physical Exam Narrative Exam Narrative: 61-year-old male sitting upright in bed. Family in the room. Vital signs are stable afebrile. He is in no acute distress. H EENT exam pupils round react light. Without dentition. Moist mucous membranes. Neck nontender no lymphadenopathy. Lungs clear to auscultation bilaterally. Heart regular rhythmrate about 80 no murmur. Chest wall ribs nontender. Abdomen soft nondistended normal bowel sounds without peritoneal signs. No pulsatile mass appreciated. No obstruction. He is mildly tender epigastric region. Right upper right lowerquadrant unremarkable. No hernia or mass. Moving all 4 extremities. Nontenderno edema. Back nontender. Neurologically is awake alert. Const Vital Signs: 06/09/24 12:20 06/09/24 14:19 Temperature 97.7 F L Temperature Source Oral Pulse Rate 92 77 Respiratory Rate 15 18 Blood Pressure 109/71 124/76 H Blood Pressure Mean 83 92 Pulse Ox 98 95 Oxygen Delivery Method Room Air Room Air Positive well nourished and well developed; Negative for cachectic, contracturesor unkempt General Appearance ED: well developed and NAD; Negative for unkempt, cachectic or contractures Nutritional Appearance: Negative for cachectic HEENT Reports moist mucous membranes normocephalic and atraumatic Eyes PERRL and EOMs intact bilaterally General Eye ED: Negative for pale conjunctiva or scleral icterus Neck no lymphadenopathy, supple and no JVD General: Negative for tenderness Carotids: Negative for other Resp normal respiratory effort and clear to auscultation bilaterally Effort and Inspection: Negative for respiratory distress Auscultation: Negative for rales, rhonchi, wheezes or diminished lung sounds Cardio regular rate, regular rhythm, S1 normal heart sound, S2 normal heart sound and no murmurs Psych Appearance: Negative for unkempt MDM MDM MDM Narrative Medical decision making narrative: I have personally performed a face to face assessment of the patient and have reviewed the FRANCOISE Note. I performed a substantive portion of the visit including all aspects of the following. My andersen findings include: History is [69-year-old male with 1-1/2 to 2-month history of abdominal and chest pain with negative workups. Requesting pain medication. He has a known AAA.] Exam is [well-appearing 61-year-old male. Vital signs stable afebrile. H EENT exam moist mucous membranes. Unremarkable. Neck nontender. Lungs clear. Heart regular rhythm rate about 80 no murmur. Chest wall and ribs nontender. Abdomen is soft nondistended normal bowel sounds without peritoneal signs. Mild epigastric tenderness. No rebound guarding rigidity. No pulsatile mass. Moving all 4 extremities. Neurologically is awake alert no focal motor deficits.] Medical Decision Making [patient with known abdominal pain without specific cause that recently had a full workup including CAT scan and also an upper endoscopy without a specific etiology. His labs today do not really show any significant abnormalities. His repeat abdominal CT shows a stable AAA but nothing else acute. Patient was given Dilaudid here. I explained to him that he will not be given narcotic prescription for home and he can follow-up with his primary care physician.] Other additions or changes: [ repeat exam at 5:20 PM I like discussion with patient and his son explained him we cannot treat his chronic pain that we do not have a specific diagnosis for nor has any bowels, blaming the other people he is following up with with narcotic prescriptions.] He will be discharged to home. Use Motrin Tylenol for pain. Follow-up with his new primary care physician and pain management. History & Record Review Discussion w/independent historian: Patient and Family Additional record(s) reviewed:: Prior inpatient record, Prior outpatient record,Prior ED visit and Prior labs Lab Data Attestation: I reviewed the patient's lab results. Lab results narrative: CBC shows a white count 12.9. H&H 11.1 and 34.6. Platelets 249. Electrolytes show sodium 131. Potassium 5.3. Gap is 15. BUN and creatinine are 21 and 1. Glucose 289. Liver enzymes normal. Lipase 46. Labs: Laboratory Results - last 24 hr 06/09/24 12:32 WBC 12.9 H RBC 3.94 L Hgb 11.1 L Hct 34.6 L MCV 87.8 MCH 28.2 MCHC 32.1 RDW Std Deviation 51.3 H RDW Coeff of Jaquan 16.1 H Plt Count 249 MPV 9.3 Immature Gran % (Auto) 0.800 Neut % (Auto) 82.6 H Lymph % (Auto) 10.9 L Meeker % (Auto) 5.3 Eos % (Auto) 0.2 Baso % (Auto) 0.2 Absolute Neuts (auto) 10.7 H Absolute Lymphs (auto) 1.41 Nucleated RBC % 0 Sodium 131 L Potassium 5.3 H Chloride 94 L Carbon Dioxide 22.1 Anion Gap 15 BUN 21 H Creatinine 1.05 Est GFR (MDRD) Non-Af 77 BUN/Creatinine Ratio 20.3 H Glucose 289 H Calcium 10.3 Total Bilirubin 0.21 AST 11 ALT 13 Alkaline Phosphatase 81 Total Protein 8.0 Albumin 3.8 Globulin 4.2 Albumin/Globulin Ratio 0.9 Lipase 46 Discharge Plan Triage Chief Complaint: Abd Pain ED Provider: Carroll Celeste Dx/Rx/DC Orders Clinical Impression: Abdominal pain of unknown etiology, Diabetes, Chronic kidney disease Instructions: ED Abdominal Pain Unkn Cause Male... Prescriptions: No Action gabapentin 300 mg capsule 300 mg PO QHS pantoprazole 40 mg tablet,delayed release (DR/EC) 40 mg PO QDAY Qty: 90 1RF Rx Instructions: take 30 minutes before breakfast every morning furosemide 40 mg tablet 40 mg PO DAILY paroxetine HCl 10 mg tablet 10 mg PO DAILY pregabalin 150 mg capsule 150 mg PO .QID roflumilast 250 mcg tablet 250 mcg PO DAILY Rybelsus 14 mg tablet 14 mg PO DAILY tamsulosin 0.4 mg capsule 0.4 mg PO BID Patient Comments: TAKE 2 CAPSULES BY MOUTH EVERY DAY WITH A MEAL albuterol sulfate 2.5 mg /3 mL (0.083 %) solution for nebulization 2.5 mg inhalation DAILY albuterol sulfate 90 mcg/actuation HFA aerosol inhaler 2 puff INHALATION PRN PRN (Reason: shortness of breath or wheezing) aspirin 81 mg tablet,delayed release (DR/EC) 81 mg PO DAILY atorvastatin 20 mg tablet 20 mg PO QHS dapagliflozin propanediol [Farxiga] 5 mg tablet 5 mg PO DAILY Trelegy Ellipta 100-62.5-25 mcg blister with device 1 inh INHALATION DAILY metformin 500 mg tablet extended release 24hr 1,500 mg PO QHS Patient Comments: TAKE 2 tabs in the AM and One tab in PM Rx Instructions: TAKE 2 tabs in the AM and One tab in PM metoprolol tartrate 50 mg tablet 50 mg PO BID lorazepam 1 mg tablet 1 mg PO TID hydrocodone-acetaminophen 5-325 mg tablet 1 tab PO Q6H PRN PRN (Reason: pain) nystatin 100,000 unit/mL suspension 100,000 unit PO TID 14 Days Qty: 42 2RF Rx Instructions: swish and spit lidocaine [Lidoderm] 5 % adhesive patch,medicated 1 patch topical QDAY Qty: 30 1RF Rx Instructions: leave on most painful area for up to 12 hrs Primary Care Provider: Angelica Saleh Referrals: william [Other] Angelica Saleh MD [Primary Care Provider] - As soon as possible Activity Restrictions/Additional Instructions: No specific cause for your abdominal pain. Follow-up with your primary care physician to be referred to pain management forfurther evaluation and possible treatment. Print Language: Czech Disposition Disposition: Home, Self Care What to do if you have Problems For any increased pain, shortness of breath, bleeding, nausea or vomiting, chestpain, or any unexpected problems, contact your Primary Care Provider. Call [facility] ([phone]) or report to the closest Emergency Room. Call 911 if necessary. 06/09/24 1728 <Electronically signed by Carroll Celeste MD> Cosigner Signature (if applicable): CC: Dr. Angelica Saleh MD ~ Signed [facility] Work Phone: [phone]) 307-206003-24-2025 Telephone encounter Note* Telephone Encounter - Shilpi Ware RN - 06/05/2024 10:07 AM EDT Call to patient and aware of Rx and agreeable to discuss any further refills at appt with new primary appointment next month. Keiry Ware RN [facility] Work Phone: [phone]) 958-256903-24-2025 Miscellaneous Notes* Telephone Encounter - Shilpi Ware RN - 06/05/2024 10:07 AM EDT Call to patient and aware of Rx and agreeable to discuss any further refills at appt with new primary appointment next month. Keiry Ware RN * Telephone Encounter - Shilpi Ware RN - 06/05/2024 10:[address] Duncan agreeable to cover Gabapentin Rx until he can get in to see PCP on 06/29/24. Rx pended. Keiry Ware RN * Telephone Encounter - Shilpi Ware RN - 06/02/2024 4:34 PM EDT Discussed with Angie Block CNP. Patient needs to reach out to primary care. He is not receivingtreatment and pain is not related to cancer. Per last OV with Dr. Duncan on 03/07/25, patient needed to reach out to PCP and ask for physical therapy. Keiry Ware RN Call to patient, aware of above. He states that he reached out to his PCP at the time, he was able to refill his Gabapentin and increased dose to 300mg every day but only gave him enough for 1 month.Now he is not able to see this PCP d/t insurance change. He states the increase in dose was helpful, if he could a refill on that until he is in to see new primary care provider, Angelica Nguyen. Patient aware that Dr. Dnucan is gone for the day and will address with him on Wednesday am. He was also advised going to the ED if pain is unbearable/severe. He states he has been there and they did notgive him anything. He did try Tylenol but not helpful with the pain. Keiry Ware RN * Telephone Encounter - Shilpi Ware RN - 06/02/2024 10:14 AM EDT Care Coordination Triage Note Cancer Hunter Situation: Patient reports Other Pain, See phone encounter 05/31/24. He has additional questions about procedure at [facility]. CT C/A/P at [facility] , EGD 05/31/24. Background: Lung cancer, had radiation, following scans, next CT chest due 07/06/24 with OV 07/13/24 Assessment: Patient states he was told to follow up LEANNE with our office. Reviewed CT chest, left adrenal node stable. He states he is aware and told them that. He states he has a lot of papers with his records that he doesn't understand. Reviewed EGD procedure note with patient and we will watch for pathologyreports. Questions answered. He is c/o of pain, in uppper back, chest, and sometime abdominal. no one know why Dr. Duncan had him try Gabapentin but he states that did not help. He has been to the ED for pain, they gave him some Hydrocodone and that took the edge off. He does not have any more of those. Describes pain as mostly sharp, can be dull. Today, rates 8/10. Worse when he bend over, picks something up, twist. He can't lie flat. He is not sleeping well because of pain. Nothing makes it better. Advised Tylenol or Ibuprofen and see if that helps at all. The lost the PCP that he was established with d/t change of insurance and no longer in network. He has an appointment with Angelica Nguyen at [facility] on 06/29/24. He is aware that I will discuss above with Dr. Duncan and call him back later today. Pharmacy, [facility] in [place]. Recommendations: Per RNCC, patient directed to: Manage at home. Instructions provided. Will discuss with Dr. Duncan and call back with further instructions. Shilpi Ware RN June 02, 2024 10:14 AM [facility] Telephone encounter Note * Telephone Encounter - Shilpi Ware RN - 06/05/2024 10:[address] Duncan agreeable to cover Gabapentin Rx until he can get in to see PCP on 06/29/24. Rx pended. Keiry Ware RN [facility]03-24-[facility] Telephone encounter Note* Telephone Encounter - Shilpi Ware RN - 06/05/2024 9:49 AM EDT See other phone note. Keiry Ware RN [facility] Work Phone: [phone] Miscellaneous Notes* Telephone Encounter - Shilpi Ware RN - 06/05/2024 9:49 AM EDT See other phone note. Keiry Ware RN * Telephone Encounter - Shilpi Ware RN - 06/01/2024 3:50 PM EDT Call to patient, message left to call me back and phone/contact number provided. Isatu Roche * Telephone Encounter - Shilpi Ware RN - 05/31/2024 4:01 PM EDT Patient had Upper GI endoscopy with Dr. Gallagher today, reviewed his note, he asked patient to reach out to us about a new adrenal node on CT 05/09/24. Dr. Duncan aware and was addressed in previous phone encounter dated 05/10/24. Patient was called and aware. F 02/18/24 CT chest: Upper abdomen: Stable benign 2.3 x 2.5 cm LEFT adrenal nodule. [facility] 05/09/24 CT: There is a 1.7 cm x 2.5 cm nodular density in the left adrenal gland. 05/31/[address] Gallagher: Impression: - Esophageal plaques were found, suspicious for candidiasis. Biopsied. - No gross lesions in the stomach. - Small hiatal hernia. - A single duodenal polyp. Resected and retrieved. Recommendation: - Discharge patient to home. - Resume previous diet. - Continue present medications. - Await pathology results. Keiry Ware RN * Telephone Encounter - Elena Goldsmith - 05/31/2024 3:37 PM EDT Patient called stating that he had upper scope at [facility] today. Dr. Stahl informed patient to contact Dr. Duncan's office as soon as possible. Please advise patient if appointment is needed. documented in this encounter[facility] Telephone encounter Note * Telephone Encounter - Shilpi Ware RN - 06/02/2024 4:34 PM EDT Discussed with Angie Block CNP. Patient needs to reach out to primary care. He is not receivingtreatment and pain is not related to cancer. Per last OV with Dr. Duncan on 03/07/25, patient needed to reach out to PCP and ask for physical therapy. Keiry Ware RN Call to patient, aware of above. He states that he reached out to his PCP at the time, he was able to refill his Gabapentin and increased dose to 300mg every day but only gave him enough for 1 month.Now he is not able to see this PCP d/t insurance change. He states the increase in dose was helpful, if he could a refill on that until he is in to see new primary care provider, Angelica Nguyen. Patient aware that Dr. Duncan is gone for the day and will address with him on Wednesday am. He was also advised going to the ED if pain is unbearable/severe. He states he has been there and they did notgive him anything. He did try Tylenol but not helpful with the pain. Keiry Ware RN [facility]03-21-[facility] Telephone encounter Note* Telephone Encounter - Shilpi Ware RN - 06/02/2024 10:14 AM EDT Care Coordination Triage Note Cancer Hunter Situation: Patient reports Other Pain, See phone encounter 05/31/24. He has additional questions about procedure at [facility]. CT C/A/P at [facility] , EGD 05/31/24. Background: Lung cancer, had radiation, following scans, next CT chest due 07/06/24 with OV 07/13/24 Assessment: Patient states he was told to follow up LEANNE with our office. Reviewed CT chest, left adrenal node stable. He states he is aware and told them that. He states he has a lot of papers with his records that he doesn't understand. Reviewed EGD procedure note with patient and we will watch for pathologyreports. Questions answered. He is c/o of pain, in uppper back, chest, and sometime abdominal. no one know why Dr. Duncan had him try Gabapentin but he states that did not help. He has been to the ED for pain, they gave him some Hydrocodone and that took the edge off. He does not have any more of those. Describes pain as mostly sharp, can be dull. Today, rates 8/10. Worse when he bend over, picks something up, twist. He can't lie flat. He is not sleeping well because of pain. Nothing makes it better. Advised Tylenol or Ibuprofen and see if that helps at all. The lost the PCP that he was established with d/t change of insurance and no longer in network. He has an appointment with Angelica Nguyen at [facility] on 06/29/24. He is aware that I will discuss above with Dr. Duncan and call him back later today. Pharmacy, [facility] in [place]. Recommendations: Per RNCC, patient directed to: Manage at home. Instructions provided. Will discuss with Dr. Duncan and call back with further instructions. Shilpi Ware RN June 02, 2024 10:14 AM [facility]03-20-[facility] Telephone encounter Note* Telephone Encounter - Shilpi Ware RN - 06/01/2024 3:50 PM EDT Call to patient, message left to call me back and phone/contact number provided. Isatu Roche [facility]03-19-2025 Telephone encounter Note* Telephone Encounter - Shilpi Ware RN - 05/31/2024 4:01 PM EDT Patient had Upper GI endoscopy with Dr. Gallagher today, reviewed his note, he asked patient to reach out to us about a new adrenal node on CT 05/09/24. Dr. Duncan aware and was addressed in previous phone encounter dated 05/10/24. Patient was called and aware. [facility] 02/18/24 CT chest: Upper abdomen: Stable benign 2.3 x 2.5 cm LEFT adrenal nodule. [facility] 05/09/24 CT: There is a 1.7 cm x 2.5 cm nodular density in the left adrenal gland. 05/31/24 EGD Note from Friend: Impression: - Esophageal plaques were found, suspicious for candidiasis. Biopsied. - No gross lesions in the stomach. - Small hiatal hernia. - A single duodenal polyp. Resected and retrieved. Recommendation: - Discharge patient to home. - Resume previous diet. - Continue present medications. - Await pathology results. Keiry Ware RN [facility]03-19-[facility] Telephone encounter Note* Telephone Encounter - Elena Goldsmith - 05/31/2024 3:37 PM EDT Patient called stating that he had upper scope at [facility] today. Dr. Stahl informed patient to contact Dr. Duncan's office as soon as possible. Please advise patient if appointment is needed. [facility] Work Phone: [phone]) 645-406103-19-2025 Consult note Author Edgar Goetz [facility] Note Date/Time May 31, 2024 12: 56pm [facility] Medical Records Department [address] [place] [address] Anesthesia Postop Eval I 05/31/24 1225 MR#: [id number] Acct: [id number] Name: REY MEAD Rep #:[id number] : 1955 69 From: Edgar Goetz CRNA PCP: Dr. Angelica Saleh MD Status:REG SDC Y Race: C Location: [place] [address] Anesthesia: Postop Eval I Current Vital Signs Temperature: 974 F Pulse Rate: 96 Blood Pressure: 105/65 Respiratory Rate: 22 Pulse Ox: 100 Oxygen Delivery Method: Nasal Cannula Oxygen Flow Rate (L/min): 6 Assessment Airway patent: Yes Spontaneous unlabored respirations: Yes Mental status: Awake nausea: No Vomiting: No Anesthesia Complication: No Fluid Hydration Crystalloid volume administer (ml): 2 Total IV fluid infused: 2 Progress Note Anesthesia document: Postop Eval 1 completed: Yes 05/31/24 1256 <Electronically signed by Edgar metz [employer]I BASE TRIMMER> Date _ Edgar Goetz [employer] B[employer] TRIMMER Cosigner Signature: Date CC: ~ Signed [facility] Work Phone: 1(889) 631-130203-19-2025 Consult note [facility] Medical Records Department [address] [place] [id number] Anesthesia Postop Eval II 05/31/24 1419 MR#: [id number] Acct: [id number] Name: REY MEAD Rep #:[id number] : 1955 69 From: Tiff Oconnell PCP: Dr. Angelica Saleh MD [place] [facility] [place] C Location: [address] Anesthesia Postop Eval I Sum Postop Eval Completion status Anesthesia document: Postop Eval 1 completed: Yes Anesthesia Postop Eval I Summary Anesthesia Postop Eval I Summary: Anesthesia Postop Eval I: Assessment Summary Airway patent Yes 05/31/24 12:56 [email or web address] [email or web address] Spontaneous unlabored Yes 05/31/24 12:56 [email or web address] [email or web address] respirations Mental status Awake 05/31/24 12:56 [email or web address] nausea No 05/31/24 12:56 [email or web address] [email or web address] Vomiting No 05/31/24 12:56 [email or web address] [email or web address] Anesthesia Postop Eval I: Fluid Summary Crystalloid volume administer 2 05/31/24 12:56 [email or web address] [email or web address] (ml) Colloids volume administered ( ml) Blood Product volume administered (ml) Total IV fluid infused 2 05/31/24 12:56 [email or web address] [email or web address] Anesthesia Postop Eval I: Summary Notes Anesthesia Complication No 05/31/24 12:56 [email or web address] Anesthesia Complication Comment: Post-operative progress note Anesthesia: Postop Eval II Evaluation Mental status: Awake Pain Level: 7 (was baseline abdominal pain patient had been having for past two weeks. ) nausea: No Vomiting: No 05/31/24 1420 a> Date _ Tiff Mendoza Signature: Date CC: ~ Signed [facility]03-19-2025 History and physical note Author Wild Gallagher [facility] Note Date/Time May 31, 2024 11: 57am [facility] Medical Records Department [address] [place] [address] History & Physical Exam 05/31/24 1155 MR#: [id number] Acct: [id number] Name: REY MEAD Rep #:[id number] : 1955 69 From: Wild Gallagher DO PCP: Dr. Angelica Saleh MD Status:[facility] Location: [place] [address] HPI - General General Date of Admission: 05/31/24 Date of Service: 05/31/24 Chief Complaint: abdominal pain HPI Narrative REY MEAD, is a 69 M who presents for the evaluation of his abdominal pain. 69y/o male presents for consult post ED eval on 05/09/2024 with complaints of chest and abdominal pain x1 month. PMH is significant for lung CA s/p right upper lobectomy and radiation, CAD, COPD and reports a recent ECHO and stress test were unremarkable. Labs reveal HGB 11.4, normal transaminases and renal function. CTA 05/09/2024 Fatty infiltration of the liver. There is a 1.7 cm x 2.5 cm nodular density in the left adrenal gland. This is not a typical adenoma. A metastatic disease should be ruled out. Infrarenal abdominal aortic aneurysm with a transverse dimension of 3.2 cm with mural thrombus. Dense consolidation in the left upper lobe as described. COLOGUARD negative 3 years ago he thinks EtOH: maybe 6 beers on the weekend Caffeine: 2 cups coffee a day - reports his lungs are to weak for surgery - 3L at HS via CPAP - Oncology on [address] - reports his Oncology doctors started him on Gabapentin LUQ pain x1 month - this is a aching, chronic dull pain with intermittent episodes of sharp pain - he reports taking OTC pain reliever - does not know if this is NSAID or Acetaminophen - no improvement - now on Gabapentin 300mg at HS - denies any improvement in pain - pain worsens with movement - pain does not change with PO intake or BM - denies any change in bowel habits - denies any weight loss - denies any rash or skin lesions - denies any N/V - denies any HB - c/o esophageal dysphagia - intermittent for quite a while with solid foods - he has never had shingles - reports he was vaccinated - no pain with palpation of LUQ - denies any falls or injury - reports he is not sleeping at night due to the pain - pain presently is 11/22 [facility] Medical History Alcohol use Excessive bleeding History of echocardiogram History of stress test Cardiology follow-up encounter Chest pain Vitamin D deficiency Left adrenal mass CAD (coronary artery disease) Blind Cancer Depression Anxiety Diabetes History of renal disease Prostate disease DVT (deep venous thrombosis) High cholesterol Easy bruising Umbilical hernia Neuropathy Injury of head and neck Syncope Former smoker On home oxygen therapy CPAP (continuous positive airway pressure) dependence COPD (chronic obstructive pulmonary disease) Shortness of breath on exertion History of edema Hypertension Hx of fracture of foot Hx of fracture of leg Home Medications ?Medication ?Instructions ?Recorded ?Last Taken ?Type albuterol sulfate 2.5 mg/3 mL 2.5 mg inhalation DAILY 01/08/23 05/30/24 History (0.083 %) solution for nebulization albuterol sulfate 90 mcg/actuation 2 puff inhalation P RN PRN 01/08/23 05/30/24 History aerosol inhaler shortness of breath or wheez ing aspirin 81 mg tablet,delayed 81 mg PO DAILY 01/08/23 0 05/23/24 History release atorvastatin 20 mg tablet 20 mg PO QHS 01/08/23 History dapagliflozin propanediol 5 mg 5 mg PO DAILY 01/08/23 05/23/24 History tablet (Farxiga) fluticasone fur. 100 mcg-umeclid 1 inh inhalation GURU Y 01/08/23 05/31/24 History 62.5 mcg-vilant 25 mcg inhalat.powder (Trelegy Ellipta) furosemide 40 mg tablet 40 mg PO DAILY 01/08/2305/13 History paroxetine HCl 10 mg tablet 10 mg PO DAILY 01/08/23 History pregabalin 150 mg capsule 150 mg PO .QID 01/08/2305/13 History roflumilast 250 mcg tablet 250 mcg PO DAILY 01/08/23 0 05/30/24 History semaglutide 14 mg tablet (Rybelsus) 14 mg PO DAILY 05/23/24 History tamsulosin 0.4 mg capsule 0.4 mg PO BID 01/08/2305/30 History lorazepam 1 mg tablet 1 mg PO TID 03/22/24 5 History metformin 500 mg tablet,extended 1,500 mg PO QHS 03/2205/30/24 History release 24hr (osmotic) metoprolol tartrate 50 mg tablet 50 mg PO BID 03/22/24 05/30/24 History gabapentin 300 mg capsule 300 mg PO QHS 05/10/2405/30 History pantoprazole 40 mg tablet,delayed 40 mg PO QDAY #90 ta bs 05/10/24 05/30/24 Rx release hydrocodone-acetaminophen 5-325mg 1 tab PO Q6H PRN PRN pain 05/31/24 Unknown History 5mg-325mg Allergy/AdvReac Type Severity Reaction Status Date / Time No Known Allergies Allergy Verified 05/31/24 11:18 Family History Mother Cancer Heart disease Father Cancer Sister Cancer Heart disease Surgical History History of bronchoscopy Hx of biopsy History of lobectomy of lung Hx of oral surgery History of open heart surgery (05/08/15) Social History Smoking Status: Former smoker alcohol intake: current alcohol intake frequency: a few times a month Alcohol type: beer substance use type: does not use ROS Constitutional Constitutional: Denies fatigue, fever(s), poor appetite, weight gain or weight loss Gastrointestinal Gastrointestinal: Denies belching, bloating, change in bowel habits, change in stool character, chewing difficulty, coffee ground emesis, constipation, cramping, diarrhea, dyspepsia, dysphagia, early satiety, excessive flatus, fecalincontinence, heartburn, hematemesis, hematochezia, hemorrhoids, loose stools, melena, nausea, odynophagia, rectal bleeding, tenesmus, vomiting or weight changes Vital Signs Vital Signs Vital Signs: 05/31/24 11:23 05/31/24 11:23 05/31/24 11:47 Temperature 97.5 F L Temperature Source Temporal Pulse Rate 105 H 94 Respiratory Rate 24 H 16 Respiratory Pattern Normal Normal Blood Pressure 161/92 H Blood Pressure Mean 115 Blood Pressure Source Monitor Blood Pressure Position Semi-Fowlers Blood Pressure Location Right Arm Pulse Ox 97 Oxygen Delivery Method Room Air 05/31/24 11:54 Temperature 97.5 F L Temperature Source Pulse Rate 105 H Respiratory Rate 24 H Respiratory Pattern Blood Pressure 161/92 H Blood Pressure Mean Blood Pressure Source Blood Pressure Position Blood Pressure Location Pulse Ox 97 Oxygen Delivery Method Weight Weight: 207 lb 3.752 oz Body Mass Index (BMI) 30.6 Physical Exam Const alert, oriented x3, no apparent distress and healthy appearing General Appearance: cooperative GI normal to inspection, nondistended, normoactive bowel sounds, soft to palpation,non-tender and non-distended Percussion: normal to percussion Rectal Exam: deferred Results Lab / Micro Data Labs: Laboratory Results - last 24 hr 05/31/24 11:22: POC Glucose 222 H Assessment & Plan Assessment/Plan (1) LUQ pain: PLAN: Assessment and Plan Assessment and Plan (1) LUQ pain: Status: Acute (2) Left-sided chest pain: Status: Acute (3) Back pain: Status: Acute Orders: Orders Upper GI Dual Contrast Today M54.9 - Dorsalgia, unspecified, R07.9 - Chest pain, unspecified, R10.12 - Left upper quadrant pain Medications: New pantoprazole take 30 minutes before breakfast every morning 40 mg PO QDAY 90 tabs 1RF hydrocodone-acetaminophen 5-325 mg 1 TAB PO Q6H PRN 12 tabs 0RF pain 3 days M54.9 - Dorsalgia, unspecified, R07.9 - Chest pain, unspecified, R10.12 - Left upper quadrant pain Plan 69y/o male presents for consult post ED evaluation on 05/09/2024 with complaints of chest and abdominal pain x1 month. PMH is significant for lung CA s/p right upper lobectomy 2016 and radiation left lung July 2023, CAD, CABG, COPD and reports a recent ECHO and stress test were unremarkable. Labs reveal HGB 11.4, normal transaminases and renal function. CTA completed in ED yesterday revealed a 1.7 x 2.5cm left adrenal lesion. He denies any prior knowledge of this lesion.LUQ/left chest pain is a constant dull aching pain with intermittent sharp pain.Pain worsens with movement and prevents him from sleeping at night. He denies any pain with PO intake or change in bowel habits. Denies any falls or injury. He is visibly uncomfortable during today's visit with RR 20-24 and leaning to the right side of chair while sitting, reporting a pain level of 9/10. Exam reveals LUQ and left chest wall discomfort over lower ribs. He denies any N/V, heartburn or weight loss. He does endorse a long history of intermittent esophageal dysphagia with solid foods. I have started him on a daily PPI and scheduled him for an UGI. I have also provided him a 3d RX of [place] and recommended he follow-up with oncology regarding CT findings. He reports he has a visit with Dr. Hurd in the next week or so, he would require pulmonary clearance prior to proceeding with EGD. Patient Instructions: 1. Start pantoprazole 40mg every morning, prescription sent to your pharmacy 2. Schedule Upper GI [phone] Duncan office and make them aware of new left adrenal lesion on CTA completed 05/09/2024 4. [place] prescription sent to pharmacy for pain Plan Details Follow Up: 1 Month 05/31/24 5207 <Electronically signed by Wild Gallagher DO> Cosigner Signature (if applicable): CC: Dr. Angelica Saleh MD; Wild Gallagher DO~ Signed [facility] Work Phone: 1(296) 874-730403-19-2025 Consult note Author Tiff Oconnell [facility] Note Date/Time May 31, 2024 11: 54am [facility] Medical Records Department [address] [place] [address] Pre-Anesthesia Evaluation 05/31/24 1144 MR#: [id number] Acct: [id number] Name: REY MEAD Rep #:[id number] : 1955 69 From: Tiff Oconnell PCP: Dr. Angelica Saleh MD [place] [facility] [place] C Location: [place] [address] ASA Classification* ASA Classification ASA Classification: 3 Assessment & Plan Anesthesia* Anesthesia Assessment Anesthesia Assessment: Discussed sedation and/or anesthesia options, risks, benefits, and alternatives with patient/parents/legal guardian/POA. Questions invited. The patient/parents/legal guardian/POA seems to understand and agrees to proceedwith anesthesia plan. Reviewed the physical assessment, medical history, allergy history and patient home medications list prior to surgery/procedure/anesthetic and documented any changes. Performed airway and anesthesia risk assessments. Anesthesia Type Anesthesia Type: MAC History Source History Obtained from:: Patient and Chart Anesthesia Focused Assessment* Temperature: 97.5 F Pulse Rate: 105 Blood Pressure: 161/92 Respiratory Rate: 24 Pulse Ox: 97 Airway Assessment Mouth opens: >3 cm Mallampati Score: I Comment: GOT PRE PROCEDURE BREATHING TREATMENT (ALBUTEROL) Focused Labs Anesthesia Preop lab: CBC WBC 8.7 K/mm3 (4.4-11.0) 05/09/24 07:45 05/09/24 RBC 4.05 M/mm3 (4.6-6.2) L 05/09/24 07:45 05/09/24 Hgb 11.4 g/dL (13.0-16.5) L 05/09/24 07:45 5 Hct 35.9 % (40-54) L 05/09/24 07:45 05/09/24 Plt Count 177 K/mm3 (150-450) 05/09/24 07:45 05/09/24 CHEMISTRY Potassium 4.0 mmol/L (3.5-5.1) 05/09/24 07:45 05/09/24 Sodium 136 mmol/L (136-145) 05/09/24 07:45 05/09/24 BUN 16 mg/dL (7-18) 05/09/24 07:45 05/09/24 Creatinine 1.09 mg/dL (0.70-1.30) 05/09/24 07:45 05/09/24 Glucose 158 mg/dL (74-106) H 05/09/24 07:45 05/09/24 POC Glucose 133 mg/dL (74-106) H 01/13/23 13:02 01/13/23 TSH 1.19 uIU/mL (0.358-3.74) 10/13/23 08:11 COAG Pre-Assessment Diagnosis/Proposed Procedure Planned Operative Procedure(s): EGD with possible biopsy Anesthesia History 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 When Was Last Pacemaker Check QUESTION #4 FULL TEXT: You/Your Family Experience fever (hyperthermia) with Anesthesia Any additional information?: No Last Oral Intake Last Oral intake: Last Oral Intake NPO since 00:00 05/31/24 11:23 Meds taken in AM with sips of No 05/31/24 11:23 water? 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 Female No 05/23/24 09:55 HX of Motion Sickness No 05/23/24 09:55 HX of N/V After Surgery No 05/23/24 09:55 Non-Smoker Yes 05/23/24 09:55 Duration of Surgery greater No 05/23/24 09:55 than 60 minutes Number of Risk Factors 1 05/23/24 09:55 PONV Score Low Risk 05/23/24 09:55 Any additional information?: No Height & Weight Height & Weight: Anesthesia: Height & Weight Height 5 ft 9 in 05/31/24 11:23 Weight: 94 kg 05/31/24 11:23 Body Mass Index (BMI) 30.6 05/31/24 11:23 Respiratory Assessment Respiratory Assessment - soccer commentator: Respiratory Tract Infection Hx - soccer commentator Hx Respiratory Tract Infection No 05/23/24 09:55 Any additional information?: No STOP Sleep Apnea STOP Sleep Apnea - soccer commentator: STOP Sleep Apnea - soccer commentator Hx Hypertension Yes: CONTROLLED WITH MED 05/23/24 09:55 Hx Sleep Apnea Yes: W/ 3L O2 05/23/24 09:55 CPAP Yes 05/23/24 09:55 BIPAP No 05/23/24 09:55 Do you snore loudly (louder than talking or can be heard Do you often feel tired/ fatigued/ sleepy during daytime? Has anyone observed you stop breathing during sleep? STOP Results Positive 05/23/24 09:55 QUESTION #5 FULL TEXT : Do you snore loudly (louder than talking or can be heard through closed doors)? 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 Specify any problems Hx of Preganancy in last 3 N/A 05/23/24 09:55 Months Nurse Filling Out Transfusion VCHRISTIN 05/23/24 09:55 & Questions: Date: 05/23/24 05/23/24 09:55 Time: 09:56 05/23/24 09:55 Patient unable to answer at this time (ie. confused, unrespo Any additional information?: No /Reproduction History /Reproductive History - soccer commentator: /Reproductive Hx- soccer commentator Hx Now No 05/23/24 09:55 Gestational Age (in weeks): EDC: Hx Hx Para Hx Section SAB No 05/23/24 09:55 Any additional information?: No Active Medications Active Medications: Current Medications Generic Name Dose Route Start Last Admin Trade Name Freq PRN Reason Stop Dose Admin Albuterol Sulfate 2.5 mg 05/31/24 11:40 Albuterol 2.5 Mg/3 Ml Vial.Neb. INHALATION 05/31/24 11:41 X1 [facility] Medical History Alcohol use Excessive bleeding History of echocardiogram History of stress test Cardiology follow-up encounter Chest pain Vitamin D deficiency Left adrenal mass CAD (coronary artery disease) Blind Cancer Depression Anxiety Diabetes History of renal disease Prostate disease DVT (deep venous thrombosis) High cholesterol Easy bruising Umbilical hernia Neuropathy Injury of head and neck Syncope Former smoker On home oxygen therapy CPAP (continuous positive airway pressure) dependence COPD (chronic obstructive pulmonary disease) Shortness of breath on exertion History of edema Hypertension Hx of fracture of foot Hx of fracture of leg Home Medications ?Medication ?Instructions ?Recorded ?Last Taken ?Type albuterol sulfate 2.5 mg/3 mL 2.5 mg inhalation DAILY 01/08/23 05/30/24 History (0.083 %) solution for nebulization albuterol sulfate 90 mcg/actuation 2 puff inhalation P RN PRN 01/08/23 05/30/24 History aerosol inhaler shortness of breath or wheez ing aspirin 81 mg tablet,delayed 81 mg PO DAILY 01/08/23 0 05/23/24 History release atorvastatin 20 mg tablet 20 mg PO QHS 01/08/23 History dapagliflozin propanediol 5 mg 5 mg PO DAILY 01/08/23 05/23/24 History tablet (Farxiga) fluticasone fur. 100 mcg-umeclid 1 inh inhalation GURU Y 01/08/23 05/31/24 History 62.5 mcg-vilant 25 mcg inhalat.powder (Trelegy Ellipta) furosemide 40 mg tablet 40 mg PO DAILY 01/08/2305/13 History paroxetine HCl 10 mg tablet 10 mg PO DAILY 01/08/23 History pregabalin 150 mg capsule 150 mg PO .QID 01/08/2305/13 History roflumilast 250 mcg tablet 250 mcg PO DAILY 01/08/23 0 05/30/24 History semaglutide 14 mg tablet (Rybelsus) 14 mg PO DAILY 05/23/24 History tamsulosin 0.4 mg capsule 0.4 mg PO BID 01/08/2305/30 History lorazepam 1 mg tablet 1 mg PO TID 03/22/24 5 History metformin 500 mg tablet,extended 1,500 mg PO QHS 03/2205/30/24 History release 24hr (osmotic) metoprolol tartrate 50 mg tablet 50 mg PO BID 03/22/24 05/30/24 History gabapentin 300 mg capsule 300 mg PO QHS 05/10/2405/30 History pantoprazole 40 mg tablet,delayed 40 mg PO QDAY #90 ta bs 05/10/24 05/30/24 Rx release hydrocodone-acetaminophen 5-325mg 1 tab PO Q6H PRN PRN pain 05/31/24 Unknown History 5mg-325mg Allergy/AdvReac Type Severity Reaction Status Date / Time No Known Allergies Allergy Verified 05/31/24 11:18 Family History Mother Cancer Heart disease Father Cancer Sister Cancer Heart disease Surgical History History of bronchoscopy Hx of biopsy History of lobectomy of lung Hx of oral surgery History of open heart surgery (05/08/15) Social History Smoking Status: Former smoker alcohol intake: current alcohol intake frequency: a few times a month Alcohol type: beer substance use type: does not use Review of Systems (Anesthesia) ROS Narrative System reviewed and no additional complaints, except as documented. Physical Exam Narrative Patient having 8-8 1/2 out of 10 abdominal pain. 05/31/24 1154 <Electronically signed by Tiff betancur> Date _ Tiff Oconnell Cosigner Signature: Date CC: ~ Signed [facility] Work Phone: [phone] 851-204803-19-2025 Consult note [facility] Medical Records Department [address] [place] [address] Anesthesia Postop Eval I 05/31/24 1225 MR#: [id number] Acct: [id number] Name: REY MEAD Rep #:[id number] : 1955 69 From: Edgar Goetz CRNA PCP: Dr. 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 Angelica Saleh MD [place] [facility] [place] Name: Rey Mead Procedure Date: 05/31/2024 12:25 PM Date of : 1955 Age: 69 Procedure: Upper GI endoscopy Indications: Epigastric abdominal pain, Abdominal pain in the left upper quadrant Providers: Wild Gallagher DO Medicines: Monitored Anesthesia Care Patient Profile: This is a 69 year old male. Refer to note in patient chart for documentation of history and physical. Patient has symptoms of chronic left lower quadrant abdominal pain and chronic epigastric abdominal pain. Complications: No immediate complications. Procedure: Pre-Anesthesia Assessment: - Prior to the procedure, a History and Physical was performed, and patient medications and allergies were reviewed. The patient is competent. The risks and benefits of the procedure and the sedation options and risks were discussed with the patient. All questions were answered and informed consent was obtained. Patient identification and proposed procedure were verified by the physician in the pre-procedure area. Mental Status Examination: alert and oriented. Airway Examination: normal oropharyngeal airway and neck mobility. Respiratory Examination: clear to auscultation. CV Examination: normal. ASA Grade Assessment: II - A patient with mild systemic disease. After reviewing the risks and benefits, the patient was deemed in satisfactory condition to undergo the procedure. The anesthesia plan was to use monitored anesthesia care (MAC). Immediately prior to administration of medications, the patient was re-assessed for adequacy to receive sedatives. The heart rate, respiratory rate, oxygen saturations, blood pressure, adequacy of pulmonary ventilation, and response to care were monitored throughout the procedure. The physical status of the patient was re-assessed after the procedure. After obtaining informed consent, the endoscope was passed under direct vision. Throughout the procedure, the patient's blood pressure, pulse, and oxygen saturations were monitored continuously. The gastroscope was introduced through the mouth, and advanced to the third part of the duodenum. Small bowel enteroscopy was deemed necessary. The upper GI endoscopy was accomplished without difficulty. The patient tolerated the procedure well. Scope In: 12:37:16 PM Scope Out: 12:41:41 PM Total Procedure Duration Time 0 hours 4 minutes 25 seconds Findings: Diffuse, yellow plaques were found in the entire esophagus. Biopsies were taken with a cold forceps for histology. Verification of patient identification for the specimen was done. Estimated blood loss was minimal. No gross lesions were noted in the stomach. A small hiatal hernia was present. A single 7 mm sessile polyp with no bleeding was found in the duodenal bulb. The polyp was removed with a cold biopsy forceps. Resection and retrieval were complete. Verification of patient identification for the specimen was done. Estimated blood loss was minimal. Impression: - Esophageal plaques were found, suspicious for candidiasis. Biopsied. - No gross lesions in the stomach. - Small hiatal hernia. - A single duodenal polyp. Resected and retrieved. Recommendation: - Discharge patient to home. - Resume previous diet. - Continue present medications. - Await pathology results. Procedure Code(s): --- Professional --- 22453, Small intestinal endoscopy, enteroscopy beyond second portion of duodenum, not including ileum; with biopsy, single or multiple CPT copyright 2021 [employer]. All rights reserved. The codes documented in this report are preliminary and upon senior office assistant review may be revised to meet current compliance requirements. Wild Gallagher DO 05/31/2024 12:51:21 PM This report has been signed electronically. Number of Addenda: 0 Note Initiated On: 05/31/2024 12:25 PM 05/31/24 1251 Date _ Wild [place] Signature: Date (if indicated) CC: Dr. Angelica Saleh MD; Wild Gallagher DO ~ Date Dictated: 05/31/24 1225 Date Transcribed: Event Host: RF Signed [facility]03-19-2025 Procedure note [facility] Medical Records Department [address] [place] [address] Operative Report - CC Letter MR#: [id number] Acct: [id number] Name: REY MEAD Rep #:[id number] : 1955 69 From: Wild Gallagher DO PCP: Dr. Angelica Saleh MD [place] [facility] [place] 05/31/2024 Angelica Saleh Md Re : Upper GI endoscopy procedure for Rey Mead Dear Therese This procedure was performed on Friday, May 31, 2024. My impressions and recommendations are as follows: Impressions : - Esophageal plaques were found, suspicious for candidiasis. Biopsied. - No gross lesions in the stomach. - Small hiatal hernia. - A single duodenal polyp. Resected and retrieved. Recommendations : - Discharge patient to home. - Resume previous diet. - Continue present medications. - Await pathology results. My findings are described in the full procedure note, which is enclosed. If I can be of further assistance, please feel free to contact me at . Sincerely, Wild Gallagher DO 05/31/2024 12:51:21 PM This report has been signed electronically. 05/31/24 1251 Date _ Wild Kenyonignshelton Signature: Date (if indicated) CC: Dr. Angelica Saleh MD; Wild Gallagher DO ~ Date Dictated: 05/31/24 1225 Date Transcribed: Event Host: RF Signed [facility]03-19-2025 History and physical note [facility] Medical Records Department [address] [place] [address] History & Physical Exam 05/31/24 1155 MR#: [id number] Acct: [id number] Name: REY MEAD Rep #:[id number] : 1955 69 From: Wild Friend DO PCP: Dr. Angelica Saleh MD [place] [facility] [place] [address] HPI - General General Date of Admission: 05/31/24 Date of Service: 05/31/24 Chief Complaint: abdominal pain HPI Narrative REY MEAD, is a 69 M who presents for the evaluation of his abdominal pain. 69y/o male presents for consult post ED eval on 05/09/2024 with complaints of chest and abdominal pain x1 month. PMH is significant for lung CA s/p right upper lobectomy and radiation, CAD, COPD and reports a recent ECHO and stress test were unremarkable. Labs reveal HGB 11.4, normal transaminases and renal function. CTA 05/09/2024 Fatty infiltration of the liver. There is a 1.7 cm x 2.5 cm nodular density in the left adrenal gland. This is not a typical adenoma. A metastatic disease should be ruled out. Infrarenal abdominal aortic aneurysm with a transverse dimension of 3.2 cm with mural thrombus. Dense consolidation in the left upper lobe as described. COLOGUARD negative 3 years ago he thinks EtOH: maybe 6 beers on the weekend Caffeine: 2 cups coffee a day - reports his lungs are to weak for surgery - 3L at HS via CPAP - Oncology on [address] - reports his Oncology doctors started him on Gabapentin LUQ pain x1 month - this is a aching, chronic dull pain with intermittent episodes of sharp pain - he reports taking OTC pain reliever - does not know if this is NSAID or Acetaminophen - no improvement - now on Gabapentin 300mg at HS - denies any improvement in pain - pain worsens with movement - pain does not change with PO intake or BM - denies any change in bowel habits - denies any weight loss - denies any rash or skin lesions - denies any N/V - denies any HB - c/o esophageal dysphagia - intermittent for quite a while with solid foods - he has never had shingles - reports he was vaccinated - no pain with palpation of LUQ - denies any falls or injury - reports he is not sleeping at night due to the pain - pain presently is 11/22 [facility] Medical History Alcohol use Excessive bleeding History of echocardiogram History of stress test Cardiology follow-up encounter Chest pain Vitamin D deficiency Left adrenal mass CAD (coronary artery disease) Blind Cancer Depression Anxiety Diabetes History of renal disease Prostate disease DVT (deep venous thrombosis) High cholesterol Easy bruising Umbilical hernia Neuropathy Injury of head and neck Syncope Former smoker On home oxygen therapy CPAP (continuous positive airway pressure) dependence COPD (chronic obstructive pulmonary disease) Shortness of breath on exertion History of edema Hypertension Hx of fracture of foot Hx of fracture of leg Home Medications ?Medication ?Instructions ?Recorded ?Last Taken ?Type albuterol sulfate 2.5 mg/3 mL 2.5 mg inhalation DAILY 01/08/23 05/30/24 History (0.083 %) solution for nebulization albuterol sulfate 90 mcg/actuation 2 puff inhalation P RN PRN 01/08/23 05/30/24 History aerosol inhaler shortness of breath or wheez ing aspirin 81 mg tablet,delayed 81 mg PO DAILY 01/08/23 0 05/23/24 History release atorvastatin 20 mg tablet 20 mg PO QHS 01/08/23 History dapagliflozin propanediol 5 mg 5 mg PO DAILY 01/08/23 05/23/24 History tablet (Farxiga) fluticasone fur. 100 mcg-umeclid 1 inh inhalation GURU Y 01/08/23 05/31/24 History 62.5 mcg-vilant 25 mcg inhalat.powder (Trelegy Ellipta) furosemide 40 mg tablet 40 mg PO DAILY 01/08/2305/13 History paroxetine HCl 10 mg tablet 10 mg PO DAILY 01/08/23 History pregabalin 150 mg capsule 150 mg PO .QID 01/08/2305/13 History roflumilast 250 mcg tablet 250 mcg PO DAILY 01/08/23 0 05/30/24 History semaglutide 14 mg tablet (Rybelsus) 14 mg PO DAILY 05/23/24 History tamsulosin 0.4 mg capsule 0.4 mg PO BID 01/08/2305/30 History lorazepam 1 mg tablet 1 mg PO TID 03/22/24 5 History metformin 500 mg tablet,extended 1,500 mg PO QHS 03/2205/30/24 History release 24hr (osmotic) metoprolol tartrate 50 mg tablet 50 mg PO BID 03/22/24 05/30/24 History gabapentin 300 mg capsule 300 mg PO QHS 05/10/2405/30 History pantoprazole 40 mg tablet,delayed 40 mg PO QDAY #90 ta bs 05/10/24 05/30/24 Rx release hydrocodone-acetaminophen 5-325mg 1 tab PO Q6H PRN PRN pain 05/31/24 Unknown History 5mg-325mg Allergy/AdvReac Type Severity Reaction Status Date / Time No Known Allergies Allergy Verified 05/31/24 11:18 Family History Mother Cancer Heart disease Father Cancer Sister Cancer Heart disease Surgical History History of bronchoscopy Hx of biopsy History of lobectomy of lung Hx of oral surgery History of open heart surgery (05/08/15) Social History Smoking Status: Former smoker alcohol intake: current alcohol intake frequency: a few times a month Alcohol type: beer substance use type: does not use ROS Constitutional Constitutional: Denies fatigue, fever(s), poor appetite, weight gain or weight loss Gastrointestinal Gastrointestinal: Denies belching, bloating, change in bowel habits, change in stool character, chewing difficulty, coffee ground emesis, constipation, cramping, diarrhea, dyspepsia, dysphagia, earlysatiety, excessive flatus, fecalincontinence, heartburn, hematemesis, hematochezia, hemorrhoids, loose stools, melena, nausea, odynophagia, rectal bleeding, tenesmus, vomiting or weight changes Vital Signs Vital Signs Vital Signs: 05/31/24 11:23 05/31/24 11:23 05/31/24 11:47 Temperature 97.5 F L Temperature Source Temporal Pulse Rate 105 H 94 Respiratory Rate 24 H 16 Respiratory Pattern Normal Normal Blood Pressure 161/92 H Blood Pressure Mean 115 Blood Pressure Source Monitor Blood Pressure Position Semi-Fowlers Blood Pressure Location Right Arm Pulse Ox 97 Oxygen Delivery Method Room Air 05/31/24 11:54 Temperature 97.5 F L Temperature Source Pulse Rate 105 H Respiratory Rate 24 H Respiratory Pattern Blood Pressure 161/92 H Blood Pressure Mean Blood Pressure Source Blood Pressure Position Blood Pressure Location Pulse Ox 97 Oxygen Delivery Method Weight Weight: 207 lb 3.752 oz Body Mass Index (BMI) 30.6 Physical Exam Const alert, oriented x3, no apparent distress and healthy appearing General Appearance: cooperative GI normal to inspection, nondistended, normoactive bowel sounds, soft to palpation,non-tender and non-distended Percussion: normal to percussion Rectal Exam: deferred Results Lab / Micro Data Labs: Laboratory Results - last 24 hr 05/31/24 11:22: POC Glucose 222 H Assessment & Plan Assessment/Plan (1) LUQ pain: PLAN: Assessment and Plan Assessment and Plan (1) LUQ pain: Status: Acute (2) Left-sided chest pain: Status: Acute (3) Back pain: Status: Acute Orders: Orders Upper GI Dual Contrast Today M54.9 - Dorsalgia, unspecified, R07.9 - Chest pain, unspecified, R10.12 - Left upper quadrant pain Medications: New pantoprazole take 30 minutes before breakfast every morning 40 mg PO QDAY 90 tabs 1RF hydrocodone-acetaminophen 5-325 mg 1 TAB PO Q6H PRN 12 tabs 0RF pain 3 days M54.9 - Dorsalgia, unspecified, R07.9 - Chest pain, unspecified, R10.12 - Left upper quadrant pain Plan 69y/o male presents for consult post ED evaluation on 05/09/2024 with complaints of chest and abdominal pain x1 month. PMH is significant for lung CA s/p right upper lobectomy 2016 and radiation left lung July 2023, CAD, CABG, COPD and reports a recent ECHO and stress test were unremarkable. Labs reveal HGB 11.4, normal transaminases and renal function. CTA completed in ED yesterday revealed a 1.7 x 2.5cm left adrenal lesion. He denies any prior knowledge of this lesion.LUQ/left chest pain is a constant dull aching pain with intermittent sharp pain.Pain worsens with movement and prevents him from sleeping at night. He denies any pain with PO intake or change in bowel habits. Denies any falls or injury. He is visibly uncomfortable during today's visit with RR 20-24 and leaning to the right side of chair while sitting, reporting a pain level of 9/10. Exam reveals LUQ and left chest wall discomfort over lower ribs. He denies any N/V, heartburn or weight loss. He does endorse a long historyof intermittent esophageal dysphagia with solid foods. I have started him on a daily PPI and scheduled him for an UGI. I have also provided him a 3d RX of [place] and recommended he follow-up with oncology regarding CT findings. He reports he has a visit with Dr. Hurd in the next week or so, he would require pulmonary clearance prior to proceeding with EGD. Patient Instructions: 1. Start pantoprazole 40mg every morning, prescription sent to your pharmacy 2. Schedule Upper GI [phone] Duncan office and make them aware of new left adrenal lesion on CTA completed 05/09/2024 4. [place] prescription sent to pharmacy for pain Plan Details Follow Up: 1 Month 05/31/24 1157 Cosigner Signature (if applicable): CC: Dr. Angelica Saleh MD; Wild Friend, DO~ Signed [facility]03-19-2025 [facility]03-19-2025 Consult note [facility] Medical Records Department [address] [place] [address] Pre-Anesthesia Evaluation 05/31/24 1144 MR#: [id number] Acct: [id number] Name: REY MEAD Rep #:[id number] : 1955 69 From: Tiff Oconnell PCP: Dr. Angelica Saleh MD Status:REG SDC Y Race: C Location: [place] [address] ASA Classification* ASA Classification ASA Classification: 3 Assessment & Plan Anesthesia* Anesthesia Assessment Anesthesia Assessment: Discussed sedation and/or anesthesia options, risks, benefits, and alternatives with patient/parents/legal guardian/POA. Questions invited. The patient/parents/legal guardian/POA seems to understand and agrees to proceedwith anesthesia plan. Reviewed the physical assessment, medical history, allergy history and patient home medications list prior to surgery/procedure/anesthetic and documented any changes. Performed airway and anesthesia risk assessments. Anesthesia Type Anesthesia Type: MAC History Source History Obtained from:: Patient and Chart Anesthesia Focused Assessment* Temperature: 97.5 F Pulse Rate: 105 Blood Pressure: 161/92 Respiratory Rate: 24 Pulse Ox: 97 Airway Assessment Mouth opens: >3 cm Mallampati Score: I Comment: GOT PRE PROCEDURE BREATHING TREATMENT (ALBUTEROL) Focused Labs Anesthesia Preop lab: CBC WBC 8.7 K/mm3 (4.4-11.0) 05/09/24 07:45 05/09/24 RBC 4.05 M/mm3 (4.6-6.2) L 05/09/24 07:45 05/09/24 Hgb 11.4 g/dL (13.0-16.5) L 05/09/24 07:45 5 Hct 35.9 % (40-54) L 05/09/24 07:45 05/09/24 Plt Count 177 K/mm3 (150-450) 05/09/24 07:45 05/09/24 CHEMISTRY Potassium 4.0 mmol/L (3.5-5.1) 05/09/24 07:45 05/09/24 Sodium 136 mmol/L (136-145) 05/09/24 07:45 05/09/24 BUN 16 mg/dL (7-18) 05/09/24 07:45 05/09/24 Creatinine 1.09 mg/dL (0.70-1.30) 05/09/24 07:45 05/09/24 Glucose 158 mg/dL (74-106) H 05/09/24 07:45 05/09/24 POC Glucose 133 mg/dL (74-106) H 01/13/23 13:02 01/13/23 TSH 1.19 uIU/mL (0.358-3.74) 10/13/23 08:11 COAG Pre-Assessment Diagnosis/Proposed Procedure Planned Operative Procedure(s): EGD with possible biopsy Anesthesia History 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 When Was Last Pacemaker Check QUESTION #4 FULL TEXT: You/Your Family Experience fever (hyperthermia) with Anesthesia Any additional information?: No Last Oral Intake Last Oral intake: Last Oral Intake NPO since 00:00 05/31/24 11:23 Meds taken in AM with sips of No 05/31/24 11:23 water? 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 Female No 05/23/24 09:55 HX of Motion Sickness No 05/23/24 09:55 HX of N/V After Surgery No 05/23/24 09:55 Non-Smoker Yes 05/23/24 09:55 Duration of Surgery greater No 05/23/24 09:55 than 60 minutes Number of Risk Factors 1 05/23/24 09:55 PONV Score Low Risk 05/23/24 09:55 Any additional information?: No Height & Weight Height & Weight: Anesthesia: Height & Weight Height 5 ft 9 in 05/31/24 11:23 Weight: 94 kg 05/31/24 11:23 Body Mass Index (BMI) 30.6 05/31/24 11:23 Respiratory Assessment Respiratory Assessment - soccer commentator: Respiratory Tract Infection Hx - soccer commentator Hx Respiratory Tract Infection No 05/23/24 09:55 Any additional information?: No STOP Sleep Apnea STOP Sleep Apnea - soccer commentator: STOP Sleep Apnea - soccer commentator Hx Hypertension Yes: CONTROLLED WITH MED 05/23/24 09:55 Hx Sleep Apnea Yes: W/ 3L O2 05/23/24 09:55 CPAP Yes 05/23/24 09:55 BIPAP No 05/23/24 09:55 Do you snore loudly (louder than talking or can be heard Do you often feel tired/ fatigued/ sleepy during daytime? Has anyone observed you stop breathing during sleep? STOP Results Positive 05/23/24 09:55 QUESTION #5 FULL TEXT : Do you snore loudly (louder than talking or can be heard through closeddoors)? 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 Specify any problems Hx of Preganancy in last 3 N/A 05/23/24 09:55 Months Nurse Filling Out Transfusion VCHRISTIN 05/23/24 09:55 & Questions: Date: 05/23/24 05/23/24 09:55 Time: 09:56 05/23/24 09:55 Patient unable to answer at this time (ie. confused, unrespo Any additional information?: No /Reproduction History /Reproductive History - soccer commentator: /Reproductive Hx- soccer commentator Hx Now No 05/23/24 09:55 Gestational Age (in weeks): EDC: Hx Hx Para Hx Section SAB No 05/23/24 09:55 Any additional information?: No Active Medications Active Medications: Current Medications Generic Name Dose Route Start Last Admin Trade Name Freq PRN Reason Stop Dose Admin Albuterol Sulfate 2.5 mg 05/31/24 11:40 Albuterol 2.5 Mg/3 Ml Vial.Neb. INHALATION 05/31/24 11:41 X1 [facility] Medical History Alcohol use Excessive bleeding History of echocardiogram History of stress test Cardiology follow-up encounter Chest pain Vitamin D deficiency Left adrenal mass CAD (coronary artery disease) Blind Cancer Depression Anxiety Diabetes History of renal disease Prostate disease DVT (deep venous thrombosis) High cholesterol Easy bruising Umbilical hernia Neuropathy Injury of head and neck Syncope Former smoker On home oxygen therapy CPAP (continuous positive airway pressure) dependence COPD (chronic obstructive pulmonary disease) Shortness of breath on exertion History of edema Hypertension Hx of fracture of foot Hx of fracture of leg Home Medications ?Medication ?Instructions ?Recorded ?Last Taken ?Type albuterol sulfate 2.5 mg/3 mL 2.5 mg inhalation DAILY 01/08/23 05/30/24 History (0.083 %) solution for nebulization albuterol sulfate 90 mcg/actuation 2 puff inhalation P RN PRN 01/08/23 05/30/24 History aerosol inhaler shortness of breath or wheez ing aspirin 81 mg tablet,delayed 81 mg PO DAILY 01/08/23 0 05/23/24 History release atorvastatin 20 mg tablet 20 mg PO QHS 01/08/23 History dapagliflozin propanediol 5 mg 5 mg PO DAILY 01/08/23 05/23/24 History tablet (Farxiga) fluticasone fur. 100 mcg-umeclid 1 inh inhalation GURU Y 01/08/23 05/31/24 History 62.5 mcg-vilant 25 mcg inhalat.powder (Trelegy Ellipta) furosemide 40 mg tablet 40 mg PO DAILY 01/08/2305/13 History paroxetine HCl 10 mg tablet 10 mg PO DAILY 01/08/23 History pregabalin 150 mg capsule 150 mg PO .QID 01/08/2305/13 History roflumilast 250 mcg tablet 250 mcg PO DAILY 01/08/23 0 05/30/24 History semaglutide 14 mg tablet (Rybelsus) 14 mg PO DAILY 05/23/24 History tamsulosin 0.4 mg capsule 0.4 mg PO BID 01/08/2305/30 History lorazepam 1 mg tablet 1 mg PO TID 03/22/24 5 History metformin 500 mg tablet,extended 1,500 mg PO QHS 03/2205/30/24 History release 24hr (osmotic) metoprolol tartrate 50 mg tablet 50 mg PO BID 03/22/24 05/30/24 History gabapentin 300 mg capsule 300 mg PO QHS 05/10/2405/30 History pantoprazole 40 mg tablet,delayed 40 mg PO QDAY #90 ta bs 05/10/24 05/30/24 Rx release hydrocodone-acetaminophen 5-325mg 1 tab PO Q6H PRN PRN pain 05/31/24 Unknown History 5mg-325mg Allergy/AdvReac Type Severity Reaction Status Date / Time No Known Allergies Allergy Verified 05/31/24 11:18 Family History Mother Cancer Heart disease Father Cancer Sister Cancer Heart disease Surgical History History of bronchoscopy Hx of biopsy History of lobectomy of lung Hx of oral surgery History of open heart surgery (05/08/15) Social History Smoking Status: Former smoker alcohol intake: current alcohol intake frequency: a few times a month Alcohol type: beer substance use type: does not use Review of Systems (Anesthesia) ROS Narrative System reviewed and no additional complaints, except as documented. Physical Exam Narrative Patient having 8-8 1/2 out of 10 abdominal pain. 05/31/24 1154 a> Date _ Tiff Oconnell Cosigner Signature: Date CC: ~ Signed [facility]03-10-2025 History of Present illness Narrative* Elena Bah, RT(R) - 05/22/2024 10:30 AM EDT Radiology Service Progress Note PATIENT NAME: Rey Mead DATE OF SERVICE: May 22, 2024 TIME: 3:05 PM PATIENT IDENTITY VERIFICATION COMPLETED USING TWO (2) IDENTIFIERS: Name and Date of confirmedby patient verbally. FALL SCREENING: Has the patient had 2 falls in the last year or 1 fall with injury or currently using an Ambulatory Assistive Device (Walker, Cane, Wheelchair, Crutches, etc.)? No PATIENT GENDER DATA: Assigned male at PATIENT RELEVANT IMPLANT DATA REVIEWED: Not Applicable PATIENT PRESENTS WITH AN IMPLANTABLE OR ATTACHED ANIMAL RESEARCHER: No RADIOLOGY DEPARTMENT: General X-ray: Exam(s) Completed: Chest X-Ray PERIPHERAL IV DATA: Not applicable SIGNED BY: RT Duran(Isatu) May 22, 2024 3:05 PM documented [facility] NoteHNO ID: [id number] Author: ELENA BHA RT(R) Service: ? Author Type: Technologist Type: Progress Notes Filed: 05/22/2024 15:06 Note Text: Radiology Service Progress Note PATIENT NAME: Rey Mead DATE OF SERVICE: May 22, 2024 TIME: 3:05 PM PATIENT IDENTITY VERIFICATION COMPLETED USING TWO (2) IDENTIFIERS: Name and Date of confirmed by patient verbally. FALL SCREENING: Has the patient had 2 falls in the last year or 1 fall with injury or currently using an Ambulatory Assistive Device (Walker, Cane, Wheelchair, Crutches, etc.)? No PATIENT GENDER DATA: Assigned male at PATIENT RELEVANT IMPLANT DATA REVIEWED: Not Applicable PATIENT PRESENTS WITH AN IMPLANTABLE OR ATTACHED ANIMAL RESEARCHER: No RADIOLOGY DEPARTMENT: General X-ray: Exam(s) Completed: Chest X-Ray PERIPHERAL IV DATA: Not applicable SIGNED BY: RT Duran(Isatu) May 22, 2024 3:05 [facility]03-06-2025 Evaluation note* Diagnosis Onset Date Resolution Status Admit Date Infrarenal abdominal aortic aneurysm (AAA) without rupture chronic M arch 2024 2:53pm LUQ pain acute May 31 10:55am CAD (coronary artery disease) acute June 14, 2024 1:35pm Cancer acute June 14 1:35pm Diabetes acute June 14 1:35pm Left adrenal mass acute June 142024 1:35pm LUQ pain acute June 14 1:35pm COPD (chronic obstructive pulmonary disease) chronic June 14 1:35pm Hypertension chronic Rita 2nd, 2 025 1:35pm Infrarenal abdominal aortic aneurysm (AAA) without rupture chronic A pril 2024 1:35pm BPH (benign prostatic hyperplasia) noneactive June 14, 2024 1:35pm Establishing care with new doctor, encounter for noneactive June 14, 2024 1:35pm Anxiety and depression noneactive Ap ril 2024 1:35pm RUQ pain acute June 26 11:22am RUQ pain acute July 24, 2024 9:58am Weight loss acute July 24 9:58am Acute hypokalemia acute September 042024 2:44pm Acute hyponatremia acute August 142024 2:44pm Anemia acute September 04 2:44pm MSSA bacteremia acute August 2:44pm Pneumonia acute September 04 2:44pm Sepsis acute September 04 2:44pm Septic shock acute September 04 025 2:44pm Weakness acute September 04 2:44pm COPD (chronic obstructive pulmonary disease) chronic September 04 2:44pm [facility] Work Phone: 1(833) 474-362702-28-2025 Radiology Diagnostic study note [facility] Imaging Services [address] [place], [place] [id number] Upper GI Dual Contrast MR#: [id number] Acct: [id number] Name: REY MEAD Rep #: [id number] : 1955 M 69 From: Sandhya Nelson MD PCP: Dr. Angelica Saleh MD Status: REG CLI Study:Upper GI Dual Contrast Date of Exam: 05/12/24 Exam# [id number] Ordering Dr: Jaleesa Galindo PROFESSOR OF [employer]-C PROCEDURE: DOUBLE-CONTRAST UPPER GASTROINTESTINAL SERIES REASON FOR EXAM: LEFT UPPER QUADRANT PAIN. TECHNIQUE: FLUOROSCOPIC TIME: 71 SECONDS DOSE: 18.8 MGY EFFERVESCENT GRANULES: Yes. CONTRAST: High-density barium. COMPARISON: NO RELEVANT PRIOR. FINDINGS: Hypopharynx: Unremarkable. Esophagus: No constricting or obstructing lesions. No evidence of hiatal hernia. No ulcerations. Stomach: No ulcers or neoplasms. Unremarkable mucosa. Duodenum: No C-loop widening. No other abnormalities. Proximal small bowel: Unremarkable. I Other findings: Wedged shaped airspace consolidation in the left upper lobe. Airspace consolidationnoted in the right lower lobe. Old healed right rib fractures. Sternotomy wires are noted from prior open heart surgery. RAD/Upper GI Dual Contrast IMPRESSION: 1. Normal double-contrast upper gastrointestinal series. 2. Areas of consolidation in the left upper lobe and right lower lobe. Can notexclude pneumonia. Reading Location: [place] [address] CC: JACEY Galindo; Dr. Angelica Saleh MD ~ Event Host: Signed [facility]02-27-2025 Telephone encounter Note* Telephone Encounter - Alana Sanchez LPN - 05/11/2024 11:40 AM EST Spoke with pt. Informed scan of left adrenal appears stable. Pt voiced understanding. Alana Sanchez LPN [facility]02-27[facility] Miscellaneous Notes* Telephone Encounter - Alana Sanchez LPN - 05/11/2024 11:40 AM EST Spoke with pt. Informed scan of left adrenal appears stable. Pt voiced understanding. Alana Sanchez LPN * Telephone Encounter - Shilpi Ware RN - 05/11/2024 11:25 AM EST Call to patient, message left to call me back and phone/contact number provided. Shilpi Ware RN * Telephone Encounter - Shilpi Ware RN - 05/10/2024 3:14 PM EST Call to patient, no answer, message left on self identified VM, that the left adrenal nodule is notnew and is stable after review of previous scans. Instructed to call any further questions. Keiry Ware RN * Telephone Encounter - Shilpi Ware RN - 05/10/2024 3:[address] Duncan reviewed and he has had a left adrenal lesion on previous scans. Appears stable. Most recent F CT chest 02/18/24: Upper abdomen: Stable benign 2.3 x 2.5 cm LEFT adrenal nodule. Keiry Ware RN [facility] CT scan 05/09/24: There is a 1.7cm x 2.5cm nodular density in the left adrenal gland Keiry Ware RN Further review of chart: CT Chest 04/01/23: Upper abdomen: A 2.7 x 2 cm left adrenal mass is stable since remote exam available dated 10/18/2004, likely benign. Keiry Ware RN * Telephone Encounter - Ilana Neal LPN - 05/10/2024 10:[address] results placed on Dr. Duncan's desk for review. Ilana Neal LPN * Telephone Encounter - Elena Goldsmith - 05/10/2024 10:03 AM EST Patient was informed by Jaleesa Galindo CNP to contact office regarding CT results. CT completed yesterday at [facility]. Patient states he has new left adrenal lesion. Please advise patient. documented in [facility] Telephone encounter Note * Telephone Encounter - Shilpi Ware RN - 05/11/2024 11:25 AM EST Call to patient, message left to call me back and phone/contact number provided. Shilpi Ware RN [facility] Work Phone: 1(456) 902-774102-26-2025 Telephone encounter Note* Telephone Encounter - Shilpi Ware RN - 05/10/2024 3:14 PM EST Call to patient, no answer, message left on self identified VM, that the left adrenal nodule is notnew and is stable after review of previous scans. Instructed to call any further questions. Keiry Ware RN [facility]02-26-[facility] Telephone encounter Note* Telephone Encounter - Shilpi Ware RN - 05/10/2024 3:[address] Duncan reviewed and he has had a left adrenal lesion on previous scans. Appears stable. Most recent [facility] CT chest 02/18/24: Upper abdomen: Stable benign 2.3 x 2.5 cm LEFT adrenal nodule. Keiry Ware RN [facility] CT scan 05/09/24: There is a 1.7cm x 2.5cm nodular density in the left adrenal gland Keiry Ware RN Further review of chart: CT Chest 04/01/23: Upper abdomen: A 2.7 x 2 cm left adrenal mass is stable since remote exam available dated 10/18/2004, likely benign. Keiry Ware RN [facility]02-26-[facility]25 Telephone encounter Note* Telephone Encounter - Ilana Neal LPN - 05/10/2024 10:[address] results placed on Dr. Duncan's desk for review. Ilana Neal LPN [facility]02-26-[facility]25 Telephone encounter Note* Telephone Encounter - Elena Goldsmith - 05/10/2024 10:03 AM EST Patient was informed by Jaleesa Galindo CNP to contact office regarding CT results. CT completed yesterday at [facility]. Patient states he has new left adrenal lesion. Please advise patient. [facility] Work Phone: 1(231) 264-957302-26-2025 Evaluation note* Diagnosis Onset Date Resolution Status Admit Date Back pain acute May 10, 2024 7:41am Left-sided chest pain acute Apr 7:41am LUQ pain acute May 10, 2024 7:41am Infrarenal abdominal aortic aneurysm (AAA) without rupture chronic May 18, 2024 2:53pm LUQ pain acute May 31 10:55am CAD (coronary artery disease) acute June 14, 2024 1:35pm Cancer acute June 14 1:35pm Diabetes acute June 14 1:35pm Left adrenal mass acute June 142024 1:35pm LUQ pain acute June 14 1:35pm COPD (chronic obstructive pulmonary disease) chronic June 14 1:35pm Hypertension chronic June 14, 1:35pm Infrarenal abdominal aortic aneurysm (AAA) without rupture chronic June 14, 2024 1:35pm BPH (benign prostatic hyperplasia) noneactive June 14, 2024 1:35pm Establishing care with new doctor, encounter for noneactive June 14, 2024 1:35pm Anxiety and depression noneactive Ap 2024 1:35pm RUQ pain acute June 26 11:22am RUQ pain acute July 24, 2024 9:58am Weight loss acute July 24 9:58am [facility] Work Phone: 1(759) 566-899102-26-2025 Evaluation note* Diagnosis Onset Date Resolution Status Admit Date Back pain acute May 10, 2024 7:41am Left-sided chest pain acute Apr 7:41am LUQ pain acute May 10, 2024 7:41am Infrarenal abdominal aortic aneurysm (AAA) without rupture chronic May 18, 2024 2:53pm LUQ pain acute May 31 10:55am CAD (coronary artery disease) acute June 14, 2024 1:35pm Cancer acute June 14 1:35pm Diabetes acute June 14 1:35pm Left adrenal mass acute June 142024 1:35pm LUQ pain acute June 14 1:35pm COPD (chronic obstructive pulmonary disease) chronic June 14 1:35pm Hypertension chronic June 14, 1:35pm Infrarenal abdominal aortic aneurysm (AAA) without rupture chronic June 14, 2024 1:35pm BPH (benign prostatic hyperplasia) noneactive June 14, 2024 1:35pm Establishing care with new doctor, encounter for noneactive June 14, 2024 1:35pm Anxiety and depression noneactive Ap 2024 1:35pm RUQ pain acute June 26 11:22am RUQ pain acute July 24, 2024 9:58am Weight loss acute July 24 9:58am Sepsis acute September 04 2:44pm [facility] Work Phone: 1(473) 879-201902-13-2025 Telephone encounter Note* Telephone Encounter - Shilpi Ware RN - 04/27/2024 1:27 PM EST Call to patient, no answer, left detailed message on self identified phone with message from Dr. Duncan. Instructed to call back if any further questions or concerns. Keiry Ware RN [facility] Work Phone: 1(495) 921-664002-13-2025 Miscellaneous Notes* Telephone Encounter - Shilpi Ware RN - 04/27/2024 1:27 PM EST Call to patient, no answer, left detailed message on self identified phone with message from Dr. Duncan. Instructed to call back if any further questions or concerns. Keiry Ware RN * Telephone Encounter - Shilpi Ware RN - 04/27/2024 10:36 AM EST Discussed with Dr. Duncan, since this is not helping, he would advise evauation with his PCP. Keiry Ware RN * Telephone Encounter - Elena Goldsmith - 04/27/2024 10:07 AM EST Patient called stating he is still in a lot of pain, gabapentin doesn't seem to be helping much. Heis asking if we are able to up the dose. Please advise. Patient uses [facility] in [place]. documented in [facility] Telephone encounter Note * Telephone Encounter - Shilpi Ware RN - 04/27/2024 10:36 AM EST Discussed with Dr. Duncan, since this is not helping, he would advise evauation with his PCP. Keiry Ware RN [facility]02-13-2025 Telephone encounter Note* Telephone Encounter - Elena Goldsmith - 04/27/2024 10:07 AM EST Patient called stating he is still in a lot of pain, gabapentin doesn't seem to be helping much. Heis asking if we are able to up the dose. Please advise. Patient uses [facility] in [place]. [facility] Work Phone: 1(805) 863-577202-13-2025 History of Present illness Narrative* Geoffrey Martinez, RT(R) - 04/27/2024 8:30 AM EST Radiology Service Progress Note PATIENT NAME: Rey Mead DATE OF SERVICE: April 27, 2024 TIME: 8:26 AM PATIENT IDENTITY VERIFICATION COMPLETED USING TWO (2) IDENTIFIERS: Name and Date of confirmedby patient verbally. FALL SCREENING: Has the patient had 2 falls in the last year or 1 fall with injury or currently using an Ambulatory Assistive Device (Walker, Cane, Wheelchair, Crutches, etc.)? No PATIENT GENDER DATA: Assigned male at PATIENT RELEVANT IMPLANT DATA REVIEWED: Not Applicable PATIENT PRESENTS WITH AN IMPLANTABLE OR ATTACHED ANIMAL RESEARCHER: No RADIOLOGY DEPARTMENT: General X-ray: Exam(s) Completed: Chest X-Ray PERIPHERAL IV DATA: Not applicable SIGNED BY: RT Anil(R) April 27, 2024 8:26 AM documented in this encounter[facility]25 NoteHNO ID: [id number] Author: GEOFFREY MARTINEZ RT(R) Service: Radiology Author Type: Technologist Type: Progress Notes Filed: 04/27/2024 08:30 Note Text: Radiology Service Progress Note PATIENT NAME: Rey Mead DATE OF SERVICE: April 27, 2024 TIME: 8:26 AM PATIENT IDENTITY VERIFICATION COMPLETED USING TWO (2) IDENTIFIERS: Name and Date of confirmed by patient verbally. FALL SCREENING: Has the patient had 2 falls in the last year or 1 fall with injury or currently using an Ambulatory Assistive Device (Walker, Cane, Wheelchair, Crutches, etc.)? No PATIENT GENDER DATA: Assigned male at PATIENT RELEVANT IMPLANT DATA REVIEWED: Not Applicable PATIENT PRESENTS WITH AN IMPLANTABLE OR ATTACHED ANIMAL RESEARCHER: No RADIOLOGY DEPARTMENT: General X-ray: Exam(s) Completed: Chest X-Ray PERIPHERAL IV DATA: Not applicable SIGNED BY: RT Anil(R) April 27, 2024 8:26 [facility]02-13-2025 NoteHNO ID: [id number] Author: GEORGE PEREZ APRN.X RAY SERVICE TECHNICIAN Service: ? Author Type: Nurse Practitioner Type: Progress Notes Filed: 04/27/2024 09:07 Note Text: Subjective HPI Nontoxic-appearing 69-year-old male past medical history coronary artery disease hypertension type 2 diabetes. In April 2015 history of right upper lobe lobectomy due to history of lung cancer. States currently has left-sided malignant neoplasm lung. Currently undergoing radiation. Has developed left-sided chest pain that has been present for greater than 1 month. Was seen by cardiology echo and stress test performed. States nothing abnormal was discovered. Presents today with persistent discomfort. Denies any syncopal episodes hemoptysis increased shortness of breath nausea vomiting or abdominal pain. No exacerbating or relieving factors. He did mention this to oncologist who states it may be related to radiation. Presents today for evaluation. Past medical history prescription medications allergies reviewed. BP 129/80 Pulse 94 Temp 36.2 ?C (97.1 ?F) Resp 22 SpO2 97% .Patient presents with: Pain: Left side back across back, chest pain below pectoral area x 1 month PAST MEDICAL HISTORY Diagnosis Date Anxiety state CAD (coronary artery disease) CKD (chronic kidney disease) stage 3, GFR 30-59 ml/min (HCC) COPD (chronic obstructive pulmonary disease) (HCC) Diabetes mellitus (HCC) Former smoker History of bronchoscopy HTN (hypertension) Hypokalemia Lung cancer (HCC) Mixed hyperlipidemia ELLEN (obstructive sleep apnea) Other emphysema (HCC) Other emphysema (HCC) PAST SURGICAL HISTORY Procedure Laterality Date BYPASS GRAFT OTHR,DADXR-YDI-BIE LOBECTOMY, SEGMENT ALLERGIES Patient has no known allergies. MEDICATIONS gabapentin (NEURONTIN) 100 mg capsule Take 1 capsule by mouth daily at bedtime for 30 days. VITAMIN B COMPLEX-100 ORAL Take by mouth. (Patient not taking: Reported on 04/21/2023) fluticasone/umeclidin/vilanter (TRELEGY ELLIPTA INHALATION) Inhale 1 Puff as instructed once daily. [id number] INHALATION Inhale as instructed. (Patient not taking: Reported on 04/21/2023) ALBUTEROL INHALATION Inhale 2 Puffs as instructed every 4 hours as needed. aspirin 81 mg cap Take 81 mg by mouth once daily. atorvastatin (LIPITOR) 20 mg tablet Take 20 mg by mouth once daily. albuterol (PROVENTIL) 2.5 mg /3 mL (0.083 %) nebulizer solution Use 2.5 mg via nebulizer every 4 hours as needed. albuterol HFA (PROVENTIL HFA, VENTOLIN HFA) 90 mcg/actuation inhaler Inhale 1-2 Puffs as instructed every 4 hours as needed. FARXIGA 5 mg tablet Take 5 mg by mouth once daily. furosemide (LASIX) 40 mg tablet Take 40 mg by mouth once daily. lisinopril 2.5 mg tablet Take 2.5 mg by mouth once daily. LORazepam (ATIVAN) 1 mg tablet Take 1 mg by mouth every 6 hours as needed. metFORMIN ER (FORTAMET) 500 mg 24 hr tablet Take one tablet by mouth in AM AND two tablets in PM. metoprolol tartrate, short acting, (LOPRESSOR) 50 mg tablet Take 50 mg by mouth once daily. PARoxetine (PAXIL) 10 mg tablet Take 10 mg by mouth once daily. pregabalin (LYRICA) 150 mg capsule Take 150 mg by mouth once daily. roflumilast (DALIRESP) 250 mcg tablet Take 250 mcg by mouth once daily. RYBELSUS 14 mg tablet Take 14 mg by mouth once daily. tamsulosin (FLOMAX) 0.4 mg Take 0.4 mg by mouth once daily. L.acid/L.casei/B.bif/B.link/FOS (PROBIOTIC BLEND ORAL) Take 1 capsule by mouth once daily. FAMILY HISTORY Problem Relation Age of Onset Diabetes Mother Heart Mother Cancer Mother Leukemia Father Colon Cancer Sister Diabetes Sister Emphysema Sister Emphysema Sister Emphysema Sister Emphysema Sister Heart Attack Maternal Grandmother Heart Attack Maternal Grandfather Social History Tobacco Use Smoking status: Former Types: Cigarettes Smokeless tobacco: Never Tobacco comments: Pt smoked 2 packs daily x 49 years, quit 2016 Vaping Use Vaping status: Never Used Substance Use Topics Alcohol use: Yes Comment: occ Drug use: Never Review of Systems Constitutional: Negative for chills, fever and malaise/fatigue. HENT: Negative for congestion, ear discharge, ear pain, sinus pain and sore throat. Eyes: Negative for blurred vision, pain, discharge and redness. Respiratory: Negative for cough, hemoptysis, sputum production, shortness of breath, wheezing and stridor. Cardiovascular: Positive for chest pain. Gastrointestinal: Negative for abdominal pain, diarrhea, nausea and vomiting. Musculoskeletal: Negative for myalgias. Skin: Negative for itching and rash. Neurological: Negative for dizziness and headaches. Objective Physical Exam Constitutional: General: He is not in acute distress. Appearance: He is not diaphoretic. HENT: Head: Normocephalic. Jaw: No trismus, tenderness, swelling or pain on movement. Mouth/Throat: Mouth: Mucous membranes are moist. Pharyn (more content not included)...[facility]02-13-2025 History of Present illness Narrative* George Perez APRN.X RAY SERVICE TECHNICIAN - 04/27/2024 8:16 AM EST Subjective HPI Nontoxic-appearing 69-year-old male past medical history coronary artery disease hypertension type 2 diabetes. In April 2015 history of right upper lobe lobectomy due to history of lung cancer. States currently has left-sided malignant neoplasm lung. Currently undergoing radiation. Has developedleft-sided chest pain that has been present for greater than 1 month. Was seen by cardiology echo and stress test performed. States nothing abnormal was discovered. Presents today with persistent discomfort. Denies any syncopal episodes hemoptysis increased shortness of breath nausea vomiting or abdominal pain. No exacerbating or relieving factors. He did mention this to oncologist who states it may be related to radiation. Presents today for evaluation. Past medical history prescription medications allergies reviewed. BP 129/80 Pulse 94 Temp 36.2 C (97.1 F) Resp 22 SpO2 97% .Patient presents with: Pain: Left side back across back, chest pain below pectoral area x 1 month PAST MEDICAL HISTORY Diagnosis Date Anxiety state CAD (coronary artery disease) CKD (chronic kidney disease) stage 3, GFR 30-59 ml/min (HCC) COPD (chronic obstructive pulmonary disease) (HCC) Diabetes mellitus (HCC) Former smoker History of bronchoscopy HTN (hypertension) Hypokalemia Lung cancer (HCC) Mixed hyperlipidemia ELLEN (obstructive sleep apnea) Other emphysema (HCC) Other emphysema (HCC) PAST SURGICAL HISTORY Procedure Laterality Date BYPASS GRAFT OTHR,[id number] LOBECTOMY, SEGMENT ALLERGIES Patient has no known allergies. MEDICATIONS gabapentin (NEURONTIN) 100 mg capsule Take 1 capsule by mouth daily at bedtime for 30 days. VITAMIN B COMPLEX-100 ORAL Take by mouth. (Patient not taking: Reported on 04/21/2023) fluticasone/umeclidin/vilanter (TRELEGY ELLIPTA INHALATION) Inhale 1 Puff as instructed once daily. [id number] INHALATION Inhale as instructed. (Patient not taking: Reported on 04/21/2023) ALBUTEROL INHALATION Inhale 2 Puffs as instructed every 4 hours as needed. aspirin 81 mg cap Take 81 mg by mouth once daily. atorvastatin (LIPITOR) 20 mg tablet Take 20 mg by mouth once daily. albuterol (PROVENTIL) 2.5 mg /3 mL (0.083 %) nebulizer solution Use 2.5 mg via nebulizer every 4 hours as needed. albuterol HFA (PROVENTIL HFA, VENTOLIN HFA) 90 mcg/actuation inhaler Inhale 1-2 Puffs as instructedevery 4 hours as needed. FARXIGA 5 mg tablet Take 5 mg by mouth once daily. furosemide (LASIX) 40 mg tablet Take 40 mg by mouth once daily. lisinopril 2.5 mg tablet Take 2.5 mg by mouth once daily. LORazepam (ATIVAN) 1 mg tablet Take 1 mg by mouth every 6 hours as needed. metFORMIN ER (FORTAMET) 500 mg 24 hr tablet Take one tablet by mouth in AM & two tablets in PM. metoprolol tartrate, short acting, (LOPRESSOR) 50 mg tablet Take 50 mg by mouth once daily. PARoxetine (PAXIL) 10 mg tablet Take 10 mg by mouth once daily. pregabalin (LYRICA) 150 mg capsule Take 150 mg by mouth once daily. roflumilast (DALIRESP) 250 mcg tablet Take 250 mcg by mouth once daily. RYBELSUS 14 mg tablet Take 14 mg by mouth once daily. tamsulosin (FLOMAX) 0.4 mg Take 0.4 mg by mouth once daily. L.acid/L.casei/B.bif/B.link/FOS (PROBIOTIC BLEND ORAL) Take 1 capsule by mouth once daily. FAMILY HISTORY Problem Relation Age of Onset Diabetes Mother Heart Mother Cancer Mother Leukemia Father Colon Cancer Sister Diabetes Sister Emphysema Sister Emphysema Sister Emphysema Sister Emphysema Sister Heart Attack Maternal Grandmother Heart Attack Maternal Grandfather Social History Tobacco Use Smoking status: Former Types: Cigarettes Smokeless tobacco: Never Tobacco comments: Pt smoked 2 packs daily x 49 years, quit 2016 Vaping Use Vaping status: Never Used Substance Use Topics Alcohol use: Yes Comment: occ Drug use: Never Review of Systems Constitutional: Negative for chills, fever and malaise/fatigue. HENT: Negative for congestion, ear discharge, ear pain, sinus pain and sore throat. Eyes: Negative for blurred vision, pain, discharge and redness. Respiratory: Negative for cough, hemoptysis, sputum production, shortness of breath, wheezing and stridor. Cardiovascular: Positive for chest pain. Gastrointestinal: Negative for abdominal pain, diarrhea, nausea and vomiting. Musculoskeletal: Negative for myalgias. Skin: Negative for itching and rash. Neurological: Negative for dizziness and headaches. Objective Physical Exam Constitutional: General: He is not in acute distress. Appearance: He is not diaphoretic. HENT: Head: Normocephalic. Jaw: No trismus, tenderness, swelling or pain on movement. Mouth/Throat: Mouth: Mucous membranes are moist. Pharynx: Oropharynx is clear. Uvula midline. No pharyngeal swelling, oropharyngeal exudate, posterior oropharyngeal erythema or uvula swelling. Eyes: Conjunctiva/sclera: Conjunctivae normal. Pupils: Pupils are equal, round, and reactive to light. Cardiovascular: Rate and Rhythm: Normal rate and regular rhythm. Heart sounds: Normal heart sounds. Pulmonary: Effort: Pulmonary effort is normal. No tachypnea, accessory muscle usage or respiratory distress. Breath sounds: Normal breath sounds. No stridor. No wheezing, rhonchi or rales. Abdominal: General: There is no distension. Palpations: Abdomen is soft. Tenderness: There is no abdominal tenderness. There is no guarding or rebound. Musculoskeletal: Cervical back: Normal range of motion and neck supple. No edema, erythema, rigidity or tenderness. No pain with movement. Normal range of motion. Lymphadenopathy: Cervical: No cervical adenopathy. Skin: General: Skin is warm and dry. Neurological: Mental Status: He is alert and oriented to person, place, and time. ASSESSMENT/PLAN: 1. Chest pain, unspecified type - ICD9: 786.50, ICD10: R07.9 - XR CHEST 2V FRONTAL/LAT IMPRESSION: 1. 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 No new consolidation, pleural effusion or pneumothorax No acute findings noted on chest x-ray. No acute findings noted on physical exam. Nontoxic-appearing. No new shortness of breath chest pain. No hemoptysis. Evaluated by cardiology with no acute findings. Is following up with pulmonology on Wednesday. Patient was educated on supportive therapies. Patient will follow up with primary care provider as needed. Patient was instructed to immediately proceed to emergency room for any new, worsening, or symptoms lasting longer than anticipated. The patient's clinical presentation is otherwise unremarkable at this time. Based on exam and clinical finding, the patient is stable for discharge. Plan of care was discussed with patient. Patient verbalizes understanding and agrees to plan of care. This note was generated using [employer] software. It may contain errors in wording, punctuation, or spelling. George Perez APRN.FLY documented in [facility] Telephone encounter Note * Telephone Encounter - Elena Goldsmith - 03/31/2024 8:42 AM EST Patient has been identified by name and date of : Yes Last office visit in this department: Visit date not found RX INSTRUCTIONS: Patient aware RX will be sent to pharmacy. No need to notify patient. Patient phones requesting refills as follows: Requested Prescriptions Pending Prescriptions Disp Refills gabapentin (NEURONTIN) 100 mg capsule 30 capsule 0 Sig: Take 1 capsule by mouth daily at bedtime for 30 days. Please review and advise. Elena Haji [facility] Work Phone: 1(107) 398-612101-17-2025 Miscellaneous Notes* Telephone Encounter - Elena Goldsmith - 03/31/2024 8:42 AM EST Patient has been identified by name and date of : Yes Last office visit in this department: Visit date not found RX INSTRUCTIONS: Patient aware RX will be sent to pharmacy. No need to notify patient. Patient phones requesting refills as follows: Requested Prescriptions Pending Prescriptions Disp Refills gabapentin (NEURONTIN) 100 mg capsule 30 capsule 0 Sig: Take 1 capsule by mouth daily at bedtime for 30 days. Please review and advise. Elena Haji documented in this encounter[facility] Evaluation note* Diagnosis Onset Date Resolution Status Admit Date CAD (coronary artery disease) acute March 22, 2024 8:43am High cholesterol acute March 22, 2024 8:43am Hypertension chronic March 22, 2024 8:43am Back pain acute May 10, 2024 7:41am Left-sided chest pain acute Feb rupioche 2024 7:41am LUQ pain acute May 10, 2024 7:41am Infrarenal abdominal aortic aneurysm (AAA) without rupture chronic M arch 2024 2:53pm [facility] Work Phone: 1([phone]) 311-704401-08-2025 Evaluation note* Diagnosis Onset Date Resolution Status Admit Date CAD (coronary artery disease) acute March 22, 2024 8:43am High cholesterol acute March 22, 2024 8:43am Hypertension chronic March 22, 2024 8:43am Back pain acute May 10, 2024 7:41am Left-sided chest pain acute b rupioche 2024 7:41am LUQ pain acute May 10, 2024 7:41am Infrarenal abdominal aortic aneurysm (AAA) without rupture chronic arch 2024 2:53pm LUQ pain acute May 31 10:55am [facility] Work Phone: [phone] 722-580401-08-2025 Evaluation note* Diagnosis Onset Date Resolution Status Admit Date CAD (coronary artery disease) acute March 22 8:43am High cholesterol acute March 22, 2024 8:43am Hypertension chronic March 22, 2024 8:43am Back pain acute May 10, 2024 7:41am Left-sided chest pain acute Feb ruary 2024 7:41am LUQ pain acute May 10, 2024 7:41am Infrarenal abdominal aortic aneurysm (AAA) without rupture chronic May 18, 2024 2:53pm LUQ pain acute May 31 10:55am CAD (coronary artery disease) acute June 14, 2024 1:35pm Cancer acute June 14 1:35pm Diabetes acute June 14 1:35pm Left adrenal mass acute June 142024 1:35pm LUQ pain acute June 14 1:35pm COPD (chronic obstructive pulmonary disease) chronic June 14 1:35pm Hypertension chronic Rita 2nd, 2 025 1:35pm Infrarenal abdominal aortic aneurysm (AAA) without rupture chronic June 14, 2024 1:35pm BPH (benign prostatic hyperplasia) noneactive June 14, 2024 1:35pm Establishing care with new doctor, encounter for noneactive June 14, 2024 1:35pm Anxiety and depression noneactive Ap ril 2024 1:35pm [facility] Work Phone: [phone]) 227-560401-08-2025 Evaluation note* Diagnosis Onset Date Resolution Status Admit Date CAD (coronary artery disease) acute March 22 8:43am High cholesterol acute March 22, 2024 8:43am Hypertension chronic March 22, 2024 8:43am Back pain acute May 10, 2024 7:41am Left-sided chest pain acute Apr ru2024 7:41am LUQ pain acute May 10, 2024 7:41am Infrarenal abdominal aortic aneurysm (AAA) without rupture chronic May 18, 2024 2:53pm LUQ pain acute May 31 10:55am CAD (coronary artery disease) acute June 14, 2024 1:35pm Cancer acute June 14 1:35pm Diabetes acute June 14 1:35pm Left adrenal mass acute June 142024 1:35pm LUQ pain acute June 14 1:35pm COPD (chronic obstructive pulmonary disease) chronic June 14 1:35pm Hypertension chronic June 14 1:35pm Infrarenal abdominal aortic aneurysm (AAA) without rupture chronic June 14, 2024 1:35pm BPH (benign prostatic hyperplasia) noneactive June 14, 2024 1:35pm Establishing care with new doctor, encounter for noneactive June 14, 2024 1:35pm Anxiety and depression noneactive Ap ril 2024 1:35pm RUQ pain acute June 26 11:22am [facility] Work Phone: 1(444) 753-199012-24-2024 NoteHNO ID: [id number] Author: VALDEMAR DUNCAN MD Service: ? Author Type: Physician Type: Progress Notes Filed: 03/07/2024 09:15 Note Text: (Elements copied from my note dated December 01, 2023, have been reviewed and updated where appropriate, and all reflect current assessment and medical decision making from today's encounter, March 07, 2024) HISTORY OF PRESENT ILLNESS: Rey Mead is a 68 year old male with history right non small cell lung cancer stage I resected 2016, now with metachronous SCC left lung, 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 FRANCK mass found on surveillance scans. 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 Stage IA3 Met with CTS, inoperable. Seeing rad onc for consideration of SBRT. We met to discuss risks and benefits of adjuvant chemotherapy. Here for follow up. Notes some pain intermittent bilateral back radiates to front, mild dull achy pain. Post SBRT to FRANCK mass May 2023. Reviewed CT report images. CLINICAL IMPRESSION: Non small cell lung cancer as above. Stage does not predict significant if any benefit from adjuvant chemotherapy, co morbidities raise risks of such therapy, underlying renal function is marginal. Feel risks of adjuvant chemotherapy outweigh benefits RECOMMENDATION/PLAN: 1. See back in 3-[address] scan 2. Neurontin for pain 3. He'll see PCP re possible physical therapy Written and verbal health teaching given to patient, patient verbalizes understanding and agrees with treatment plan. PAST MEDICAL HISTORY Diagnosis Date Anxiety state CAD (coronary artery disease) CKD (chronic kidney disease) stage 3, GFR 30-59 ml/min (HCC) COPD (chronic obstructive pulmonary disease) (HCC) Diabetes mellitus (HCC) Former smoker History of bronchoscopy HTN (hypertension) Hypokalemia Lung cancer (HCC) Mixed hyperlipidemia ELLEN (obstructive sleep apnea) Other emphysema (HCC) Other emphysema (HCC) PAST SURGICAL HISTORY Procedure Laterality Date BYPASS GRAFT OTHR,[id number] LOBECTOMY, SEGMENT FAMILY HISTORY Problem Relation Age of Onset Diabetes Mother Heart Mother Cancer Mother Leukemia Father Colon Cancer Sister Diabetes Sister Emphysema Sister Emphysema Sister Emphysema Sister Emphysema Sister Heart Attack Maternal Grandmother Heart Attack Maternal Grandfather Social History Tobacco Use Smoking status: Former Types: Cigarettes Smokeless tobacco: Never Tobacco comments: Pt smoked 2 packs daily x 49 years, quit 2016 Vaping Use Vaping status: Never Used Substance Use Topics Alcohol use: Yes Comment: occ Drug use: Never ALLERGIES: ALLERGIES No Known Allergies CURRENT OUTPATIENT MEDICATIONS: fluticasone/umeclidin/vilanter (TRELEGY ELLIPTA INHALATION) Inhale 1 Puff as instructed once daily. aspirin 81 mg cap Take 81 mg by mouth once daily. atorvastatin (LIPITOR) 20 mg tablet Take 20 mg by mouth once daily. albuterol (PROVENTIL) 2.5 mg /3 mL (0.083 %) nebulizer solution Use 2.5 mg via nebulizer every 4 hours as needed. albuterol HFA (PROVENTIL HFA, VENTOLIN HFA) 90 mcg/actuation inhaler Inhale 1-2 Puffs as instructed every 4 hours as needed. FARXIGA 5 mg tablet Take 5 mg by mouth once daily. furosemide (LASIX) 40 mg tablet Take 40 mg by mouth once daily. lisinopril 2.5 mg tablet Take 2.5 mg by mouth once daily. LORazepam (ATIVAN) 1 mg tablet Take 1 mg by mouth every 6 hours as needed. metFORMIN ER (FORTAMET) 500 mg 24 hr tablet Take one tablet by mouth in AM AND two tablets in PM. metoprolol tartrate, short acting, (LOPRESSOR) 50 mg tablet Take 50 mg by mouth once daily. PARoxetine (PAXIL) 10 mg tablet Take 10 mg by mouth once daily. pregabalin (LYRICA) 150 mg capsule Take 150 mg by mouth once daily. roflumilast (DALIRESP) 250 mcg tablet Take 250 mcg by mouth once daily. RYBELSUS 14 mg tablet Take 14 mg by mouth once daily. tamsulosin (FLOMAX) 0.4 mg Take 0.4 mg by mouth once daily. L.acid/L.casei/B.bif/B.link/FOS (PROBIOTIC BLEND ORAL) Take 1 capsule by mouth once daily. VITAMIN B COMPLEX-100 ORAL Take by mouth. (Patient not taking: Reported on 04/21/2023) [id number] INHALATION Inhale as instructed. (Patient not taking: Reported on 04/21/2023) ALBUTEROL INHALATION Inhale 2 Puffs as instructed every 4 hours as needed. REVIEW OF SYSTEMS: GENERAL: No fever, night sweats, weight loss or malaise. All other reviewed and negative other than HPI. PHYSICAL EXAMINATION: VITAL SIGNS: BP 120/71 Pulse 80 Temp (Src) 98.1 (Temporal) Wt 216 lb 8 oz (98.2kg) SpO2 97% GENERAL APPEARANCE: Well appearing, in no acute distress, alert and oriented x3, well-hydrated, well nourished. I spent a total of 30 minutes on the date of the service which included preparing to see the patient, [id number] patient care, completing clinical documentation, obtaining and/or reviewing separately obtained history, cou (more content not included)...[facility]12-24-2024 History of Present illness Narrative* Valdemar Duncan MD - 03/07/2024 8:28 AM EST (Elements copied from my note dated December 01, 2023, have been reviewed and updated where appropriate, and all reflect current assessment and medical decision making from today's encounter, March 07, 2024) HISTORY OF PRESENT ILLNESS: Rey Mead is a 68 year old male with history right non small cell lung cancer stage I resected 2016, now with metachronous SCC left lung, 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 FRANCK mass found on surveillance scans. 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 Stage IA3 Met with CTS, inoperable. Seeing rad onc for consideration of SBRT. We met to discuss risks and benefits of adjuvant chemotherapy. Here for follow up. Notes some pain intermittent bilateral back radiates to front, mild dull achy pain. Post SBRT to FRANCK mass May 2023. Reviewed CT report images. CLINICAL IMPRESSION: Non small cell lung cancer as above. Stage does not predict significant if any benefit from adjuvant chemotherapy, co morbidities raise risks of such therapy, underlying renal function is marginal. Feel risks of adjuvant chemotherapy outweigh benefits RECOMMENDATION/PLAN: 1. See back in 3-[address] scan 2. Neurontin for pain 3. He'll see PCP re possible physical therapy Written and verbal health teaching given to patient, patient verbalizes understanding and agrees with treatment plan. PAST MEDICAL HISTORY Diagnosis Date Anxiety state CAD (coronary artery disease) CKD (chronic kidney disease) stage 3, GFR 30-59 ml/min (HCC) COPD (chronic obstructive pulmonary disease) (HCC) Diabetes mellitus (HCC) Former smoker History of bronchoscopy HTN (hypertension) Hypokalemia Lung cancer (HCC) Mixed hyperlipidemia ELLEN (obstructive sleep apnea) Other emphysema (HCC) Other emphysema (HCC) PAST SURGICAL HISTORY Procedure Laterality Date BYPASS GRAFT OTHR,[id number]-[id number]-RDL LOBECTOMY, SEGMENT FAMILY HISTORY Problem Relation Age of Onset Diabetes Mother Heart Mother Cancer Mother Leukemia Father Colon Cancer Sister Diabetes Sister Emphysema Sister Emphysema Sister Emphysema Sister Emphysema Sister Heart Attack Maternal Grandmother Heart Attack Maternal Grandfather Social History Tobacco Use Smoking status: Former Types: Cigarettes Smokeless tobacco: Never Tobacco comments: Pt smoked 2 packs daily x 49 years, quit 2016 Vaping Use Vaping status: Never Used Substance Use Topics Alcohol use: Yes Comment: occ Drug use: Never ALLERGIES: ALLERGIES No Known Allergies CURRENT OUTPATIENT MEDICATIONS: fluticasone/umeclidin/vilanter (TRELEGY ELLIPTA INHALATION) Inhale 1 Puff as instructed once daily. aspirin 81 mg cap Take 81 mg by mouth once daily. atorvastatin (LIPITOR) 20 mg tablet Take 20 mg by mouth once daily. albuterol (PROVENTIL) 2.5 mg /3 mL (0.083 %) nebulizer solution Use 2.5 mg via nebulizer every 4 hours as needed. albuterol HFA (PROVENTIL HFA, VENTOLIN HFA) 90 mcg/actuation inhaler Inhale 1-2 Puffs as instructedevery 4 hours as needed. FARXIGA 5 mg tablet Take 5 mg by mouth once daily. furosemide (LASIX) 40 mg tablet Take 40 mg by mouth once daily. lisinopril 2.5 mg tablet Take 2.5 mg by mouth once daily. LORazepam (ATIVAN) 1 mg tablet Take 1 mg by mouth every 6 hours as needed. metFORMIN ER (FORTAMET) 500 mg 24 hr tablet Take one tablet by mouth in AM & two tablets in PM. metoprolol tartrate, short acting, (LOPRESSOR) 50 mg tablet Take 50 mg by mouth once daily. PARoxetine (PAXIL) 10 mg tablet Take 10 mg by mouth once daily. pregabalin (LYRICA) 150 mg capsule Take 150 mg by mouth once daily. roflumilast (DALIRESP) 250 mcg tablet Take 250 mcg by mouth once daily. RYBELSUS 14 mg tablet Take 14 mg by mouth once daily. tamsulosin (FLOMAX) 0.4 mg Take 0.4 mg by mouth once daily. L.acid/L.casei/B.bif/B.link/FOS (PROBIOTIC BLEND ORAL) Take 1 capsule by mouth once daily. VITAMIN B COMPLEX-100 ORAL Take by mouth. (Patient not taking: Reported on 04/21/2023) [id number] INHALATION Inhale as instructed. (Patient not taking: Reported on 04/21/2023) ALBUTEROL INHALATION Inhale 2 Puffs as instructed every 4 hours as needed. REVIEW OF SYSTEMS: GENERAL: No fever, night sweats, weight loss or malaise. All other reviewed and negative other than HPI. PHYSICAL EXAMINATION: VITAL SIGNS: BP 120/71 Pulse 80 Temp (Src) 98.1 (Temporal) Wt 216 lb 8 oz (98.2kg) SpO2 97% GENERAL APPEARANCE: Well appearing, in no acute distress, alert and oriented x3, well-hydrated, well nourished. I spent a total of 30 minutes on the date of the service which included preparing to see the patient, [id number] patient care, completing clinical documentation, obtaining and/or reviewing separately obtained history, counseling and educating the patient/family/caregiver, independently interpretin g results (not separately reported), and communicating results to the patient/family/caregiver. Electronically Signed: Valdemar Duncan MD March 07, 2024 documented in this encounterSelect [facility] History of Present illness Narrative* Merari Olson RT(R) - 02/18/2024 10:00 AM EST Radiology Service Progress Note PATIENT NAME: Rey Mead DATE OF SERVICE: February 18, 2024 TIME: 9:45 AM PATIENT IDENTITY VERIFICATION COMPLETED USING TWO (2) IDENTIFIERS: Name and Date of confirmedby patient verbally. FALL SCREENING: Has the patient had 2 falls in the last year or 1 fall with injury or currently using an Ambulatory Assistive Device (Walker, Cane, Wheelchair, Crutches, etc.)? No PATIENT GENDER DATA: Male PATIENT RELEVANT IMPLANT DATA REVIEWED: Not Applicable PATIENT PRESENTS WITH AN IMPLANTABLE OR ATTACHED ANIMAL RESEARCHER: No RADIOLOGY DEPARTMENT: CT; Exam(s) Completed: Chest PERIPHERAL IV DATA: Not applicable SIGNED BY: RT Rl(Isatu) February 18, 2024 9:45 AM documented in this encounterSelect Medical [facility]12-06-2024 NoteHNO ID: [id number] Author: MERARI OLSON RT(R) Service: ? Author Type: Insurance Verification Rep Type: Progress Notes Filed: 02/18/2024 09:45 Note Text: Radiology Service Progress Note PATIENT NAME: Rey Mead DATE OF SERVICE: February 18, 2024 TIME: 9:45 AM PATIENT IDENTITY VERIFICATION COMPLETED USING TWO (2) IDENTIFIERS: Name and Date of confirmed by patient verbally. FALL SCREENING: Has the patient had 2 falls in the last year or 1 fall with injury or currently using an Ambulatory Assistive Device (Walker, Cane, Wheelchair, Crutches, etc.)? No PATIENT GENDER DATA: Male PATIENT RELEVANT IMPLANT DATA REVIEWED: Not Applicable PATIENT PRESENTS WITH AN IMPLANTABLE OR ATTACHED ANIMAL RESEARCHER: No RADIOLOGY DEPARTMENT: CT; Exam(s) Completed: Chest PERIPHERAL IV DATA: Not applicable SIGNED BY: USAMA Shine) February 18, 2024 9:45 [facility]09-25-2024 NoteHNO ID: [id number] Author: VA DUNAWAY MD Service: ? Author Type: Physician Type: Progress Notes Filed: 12/08/2023 09:13 Note Text: AMBULATORY TELEPHONE VISIT Rey Mead has consented to this telephone encounter. Persons Present: patient Chief Complaint/Reason: Follow-up after radiation treatment. 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 He is doing well without any specific new complaints. He denies any cough or shortness of breath. He denies any chest pain. CT chest on 11/24/23 showed, 1. Increasing consolidation in the posterior lateral left upper lobe adjacent to a spiculated nodule, possibly due to radiation therapy. 2. Unchanged size of a spiculated nodule in the posterior left upper lobe 3. Previously described 8 mm nodule in the lateral left upper lobe is not visualized on the current study 4. No new thoracic lymphadenopathy 5. Stable appearance of clustered nodules in the posterior right lower lobe and left lung apex Data Reviewed: Most recent imaging . Assessment: Stable CT scan. Plan: He is scheduled to have CT chest in three months and then to see Dr. Duncan. I will see him as needed Total Time Spent: 5 minutes Va Dunaway [facility]09-25-2024 History of Present illness Narrative* Va Dunaway MD - 12/08/2023 9:11 AM EDT AMBULATORY TELEPHONE VISIT Rey Mead has consented to this telephone encounter. Persons Present: patient Chief Complaint/Reason: Follow-up after radiation treatment. 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 He is doing well without any specific new complaints. He denies any cough or shortness of breath. He denies any chest pain. CT chest on 11/24/23 showed, 1. Increasing consolidation in the posterior lateral left upper lobe adjacent to a spiculated nodule, possibly due to radiation therapy. 2. Unchanged size of a spiculated nodule in the posterior left upper lobe 3. Previously described 8 mm nodule in the lateral left upper lobe is not visualized on the current study 4. No new thoracic lymphadenopathy 5. Stable appearance of clustered nodules in the posterior right lower lobe and left lung apex Data Reviewed: Most recent imaging . Assessment: Stable CT scan. Plan: He is scheduled to have CT chest in three months and then to see Dr. Duncan. I will see him as needed Total Time Spent: 5 minutes Va Dunaway MD [facility] Telephone encounter Note * Telephone Encounter - Elena Goldsmith - 12/03/2023 3:31 PM EDT Patient called and rescheduled [facility] Work Phone: [phone]) 762-790309-20-2024 Miscellaneous Notes* Telephone Encounter - Elena Goldsmith - 12/03/2023 3:31 PM EDT Patient called and rescheduled * Telephone Encounter - Jacy Palomino RN - 12/03/2023 11:32 AM EDT Pt was scheduled for 1130 phone call today. Pt did not answer, voicemail left for him to call back.Can transfer to ext [phone] Dunaway's nurse or PSS for reschedule. documented in this encounter[facility]24 Telephone encounter Note * Telephone Encounter - Jacy Palomino RN - 12/03/2023 11:32 AM EDT Pt was scheduled for 1130 phone call today. Pt did not answer, voicemail left for him to call back.Can transfer to ext [phone] Dunaway's nurse or PSS for reschedule. [facility]09-18-2024 NoteHNO ID: [id number] Author: VALDEMAR DUNCAN MD Service: ? Author Type: Physician Type: Progress Notes Filed: 12/01/2023 12:01 Note Text: (Elements copied from my note dated July 16, 2023, have been reviewed and updated where appropriate, and all reflect current assessment and medical decision making from today's encounter, December 01, 2023) HISTORY OF PRESENT ILLNESS: Rey Mead is a 68 year old male with history right non small cell lung cancer stage I resected 2017, now with metachronous SCC left lung, 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 FRANCK mass found on surveillance scans. 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 Stage IA3 Met with CTS, inoperable. Seeing rad onc for consideration of SBRT. We met to discuss risks and benefits of adjuvant chemotherapy. Here for follow up. Post SBRT to FRANCK mass May 2023. Reviewed CT report images. CLINICAL IMPRESSION: Non small cell lung cancer as above. Stage does not predict significant if any benefit from adjuvant chemotherapy, co morbidities raise risks of such therapy, underlying renal function is marginal. Feel risks of adjuvant chemotherapy outweigh benefits RECOMMENDATION/PLAN: 1. See back in [address] scan Written and verbal health teaching given to patient, patient verbalizes understanding and agrees with treatment plan. PAST MEDICAL HISTORY Diagnosis Date Anxiety state CAD (coronary artery disease) CKD (chronic kidney disease) stage 3, GFR 30-59 ml/min (HCC) COPD (chronic obstructive pulmonary disease) (HCC) Diabetes mellitus (HCC) Former smoker History of bronchoscopy HTN (hypertension) Hypokalemia Lung cancer (HCC) Mixed hyperlipidemia ELLEN (obstructive sleep apnea) Other emphysema (HCC) Other emphysema (HCC) PAST SURGICAL HISTORY Procedure Laterality Date BYPASS GRAFT OTHR,[id number] LOBECTOMY, SEGMENT FAMILY HISTORY Problem Relation Age of Onset Diabetes Mother Heart Mother Cancer Mother Leukemia Father Colon Cancer Sister Diabetes Sister Emphysema Sister Emphysema Sister Emphysema Sister Emphysema Sister Heart Attack Maternal Grandmother Heart Attack Maternal Grandfather Social History Tobacco Use Smoking status: Former Current packs/day: 2.00 Average packs/day: 2.0 packs/day for 48.0 years (96.0 ttl pk-yrs) Types: Cigarettes Smokeless tobacco: Never Vaping Use Vaping status: Never Used Substance Use Topics Alcohol use: Yes Comment: occ Drug use: Never ALLERGIES: ALLERGIES No Known Allergies CURRENT OUTPATIENT MEDICATIONS: fluticasone/umeclidin/vilanter (TRELEGY ELLIPTA INHALATION) Inhale as instructed. aspirin 81 mg cap Take 81 mg by mouth once daily. atorvastatin (LIPITOR) 20 mg tablet Take 20 mg by mouth once daily. albuterol (PROVENTIL) 2.5 mg /3 mL (0.083 %) nebulizer solution albuterol HFA (PROVENTIL HFA, VENTOLIN HFA) 90 mcg/actuation inhaler FARXIGA 5 mg tablet Take 5 mg by mouth once daily. furosemide (LASIX) 40 mg tablet Take 40 mg by mouth once daily. lisinopril 2.5 mg tablet Take 2.5 mg by mouth once daily. LORazepam (ATIVAN) 1 mg tablet Take 1 mg by mouth once daily. metFORMIN ER (FORTAMET) 500 mg 24 hr tablet Take 500 mg by mouth once daily. metoprolol tartrate, short acting, (LOPRESSOR) 50 mg tablet Take 50 mg by mouth once daily. PARoxetine (PAXIL) 10 mg tablet Take 10 mg by mouth once daily. pregabalin (LYRICA) 150 mg capsule Take 150 mg by mouth once daily. roflumilast (DALIRESP) 250 mcg tablet Take 250 mcg by mouth once daily. RYBELSUS 14 mg tablet Take 14 mg by mouth once daily. tamsulosin (FLOMAX) 0.4 mg Take 0.4 mg by mouth once daily. L.acid/L.casei/B.bif/B.link/FOS (PROBIOTIC BLEND ORAL) Take 6 Billion Cells by mouth once daily. VITAMIN B COMPLEX-100 ORAL Take by mouth. (Patient not taking: Reported on 04/21/2023) [id number] INHALATION Inhale as instructed. (Patient not taking: Reported on 04/21/2023) ALBUTEROL INHALATION Inhale 2 Puffs as instructed every 4 hours as needed. REVIEW OF SYSTEMS: GENERAL: No fever, night sweats, weight loss or malaise. All other reviewed and negative other than HPI. PHYSICAL EXAMINATION: VITAL SIGNS: BP 124/71 Pulse 64 Temp (Src) 97.6 (Temporal) Wt 216 lb 8 oz (98.2kg) SpO2 99% GENERAL APPEARANCE: Well appearing, in no acute distress, alert and oriented x3, well-hydrated, well nourished. I spent a total of 30 minutes on the date of the service which included preparing to see the patient, [id number] patient care, completing clinical documentation, obtaining and/or reviewing separately obtained history, counseling and educating the patient/family/caregiver, independently interpreting results (not separately reported), and communicating results to the patient/family/caregiver. Electronically Signed: Valdemar Duncan MD November 30[facility]09-18-[facility]24 History of Present illness Narrative* Valdemar Duncan MD - 12/01/2023 9:54 AM EDT (Elements copied from my note dated July 16, 2023, have been reviewed and updated where appropriate, and all reflect current assessment and medical decision making from today's encounter, November) HISTORY OF PRESENT ILLNESS: Rey Mead is a 68 year old male with history right non small cell lung cancer stage I resected 2017, now with metachronous SCC left lung, 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 FRANCK mass found on surveillance scans. 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 Stage IA3 Met with CTS, inoperable. Seeing rad onc for consideration of SBRT. We met to discuss risks and benefits of adjuvant chemotherapy. Here for follow up. Post SBRT to FRANCK mass May 2023. Reviewed CT report images. CLINICAL IMPRESSION: Non small cell lung cancer as above. Stage does not predict significant if any benefit from adjuvant chemotherapy, co morbidities raise risks of such therapy, underlying renal function is marginal. Feel risks of adjuvant chemotherapy outweigh benefits RECOMMENDATION/PLAN: 1. See back in [address] scan Written and verbal health teaching given to patient, patient verbalizes understanding and agrees with treatment plan. PAST MEDICAL HISTORY Diagnosis Date Anxiety state CAD (coronary artery disease) CKD (chronic kidney disease) stage 3, GFR 30-59 ml/min (HCC) COPD (chronic obstructive pulmonary disease) (HCC) Diabetes mellitus (HCC) Former smoker History of bronchoscopy HTN (hypertension) Hypokalemia Lung cancer (HCC) Mixed hyperlipidemia ELLEN (obstructive sleep apnea) Other emphysema (HCC) Other emphysema (HCC) PAST SURGICAL HISTORY Procedure Laterality Date BYPASS GRAFT OTHR,EUURN-HXC-TJH LOBECTOMY, SEGMENT FAMILY HISTORY Problem Relation Age of Onset Diabetes Mother Heart Mother Cancer Mother Leukemia Father Colon Cancer Sister Diabetes Sister Emphysema Sister Emphysema Sister Emphysema Sister Emphysema Sister Heart Attack Maternal Grandmother Heart Attack Maternal Grandfather Social History Tobacco Use Smoking status: Former Current packs/day: 2.00 Average packs/day: 2.0 packs/day for 48.0 years (96.0 ttl pk-yrs) Types: Cigarettes Smokeless tobacco: Never Vaping Use Vaping status: Never Used Substance Use Topics Alcohol use: Yes Comment: occ Drug use: Never ALLERGIES: ALLERGIES No Known Allergies CURRENT OUTPATIENT MEDICATIONS: fluticasone/umeclidin/vilanter (TRELEGY ELLIPTA INHALATION) Inhale as instructed. aspirin 81 mg cap Take 81 mg by mouth once daily. atorvastatin (LIPITOR) 20 mg tablet Take 20 mg by mouth once daily. albuterol (PROVENTIL) 2.5 mg /3 mL (0.083 %) nebulizer solution albuterol HFA (PROVENTIL HFA, VENTOLIN HFA) 90 mcg/actuation inhaler FARXIGA 5 mg tablet Take 5 mg by mouth once daily. furosemide (LASIX) 40 mg tablet Take 40 mg by mouth once daily. lisinopril 2.5 mg tablet Take 2.5 mg by mouth once daily. LORazepam (ATIVAN) 1 mg tablet Take 1 mg by mouth once daily. metFORMIN ER (FORTAMET) 500 mg 24 hr tablet Take 500 mg by mouth once daily. metoprolol tartrate, short acting, (LOPRESSOR) 50 mg tablet Take 50 mg by mouth once daily. PARoxetine (PAXIL) 10 mg tablet Take 10 mg by mouth once daily. pregabalin (LYRICA) 150 mg capsule Take 150 mg by mouth once daily. roflumilast (DALIRESP) 250 mcg tablet Take 250 mcg by mouth once daily. RYBELSUS 14 mg tablet Take 14 mg by mouth once daily. tamsulosin (FLOMAX) 0.4 mg Take 0.4 mg by mouth once daily. L.acid/L.casei/B.bif/B.link/FOS (PROBIOTIC BLEND ORAL) Take 6 Billion Cells by mouth once daily. VITAMIN B COMPLEX-100 ORAL Take by mouth. (Patient not taking: Reported on 04/21/2023) [id number] INHALATION Inhale as instructed. (Patient not taking: Reported on 04/21/2023) ALBUTEROL INHALATION Inhale 2 Puffs as instructed every 4 hours as needed. REVIEW OF SYSTEMS: GENERAL: No fever, night sweats, weight loss or malaise. All other reviewed and negative other than HPI. PHYSICAL EXAMINATION: VITAL SIGNS: BP 124/71 Pulse 64 Temp (Src) 97.6 (Temporal) Wt 216 lb 8 oz (98.2kg) SpO2 99% GENERAL APPEARANCE: Well appearing, in no acute distress, alert and oriented x3, well-hydrated, well nourished. I spent a total of 30 minutes on the date of the service which included preparing to see the patient, [id number] patient care, completing clinical documentation, obtaining and/or reviewing separately obtained history, counseling and educating the patient/family/caregiver, independently interpretin g results (not separately reported), and communicating results to the patient/family/caregiver. Electronically Signed: Valdemar Duncan MD December 01, 2023 documented in this encounterCleveland [id number] History of Present illness Narrative* Merari Olson RT(R) - 11/24/2023 8:40 AM EDT Radiology Service Progress Note DATE OF SERVICE: November 24, 2023 TIME: 3:27 PM PATIENT IDENTITY VERIFICATION COMPLETED USING TWO (2) STANDARD IDENTIFIERS: Name and Date of confirmed by patient verbally. FALL SCREENING: Has the patient had 2 falls in the last year or 1 fall with injury or currently using an Ambulatory Assistive Device (Walker, Cane, Wheelchair, Crutches, etc.)? No PATIENT GENDER DATA: Male PATIENT RELEVANT IMPLANT DATA REVIEWED: Yes PATIENT PRESENTS WITH AN IMPLANTABLE OR ATTACHED ANIMAL RESEARCHER: No ALLERGIES: Reviewed and unchanged CONTRAST ALLERGY: NO. EXAM: CT -CONTRAST INDUCED NEPHROPATHY RISK FACTORS: Patient age > 60 years CREATININE: Creatinine Date Value Ref Range Status 11/24/2023 1.07 0.73 - 1.22 mg/dL Final 04/01/2023 1.10 0.73 - 1.22 mg/dL Final Estimated Glomerular Filtration Rate Date Value Ref Range Status 11/24/2023 76 >=60 mL/min/1.73m Final Comment: Estimated Glomerular Filtration Rate (eGFR) is calculated using the 2020 CKD-EPI creatinine equation. This equation utilizes serum creatinine, sex, and age as parameters. The creatinine assay has traceable calibration to isotope dilution- mass spectrometry. Refer to KDIGO guidelines for clinical interpretation. In patients with unstable renal function, e.g. those with acute kidney injury, the eGFRmay not accurately reflect actual GFR. P.O.C.T. RESULTS: POC done: Yes, See Lab Tab November 24, 2023 TREATMENT: N/A PERIPHERAL IV DATA: Ambulatory: A peripheral IV was started in the Left antecubital site with a Angio cath: 22 gauge. RADIOLOGY DEPARTMENT: CT; Exam(s) Completed: Chest SIGNATURE: RT Rl(Isatu) PATIENT NAME: Rey Mead DATE: November 24, 2023 TIME: 3:27 PM documented in this encounterSelect [facility]-11-2024 NoteHNO ID: [id number] Author: MERARI OLSON RT(R) Service: ? Author Type: Insurance Verification Rep Type: Progress Notes Filed: 11/24/2023 15:27 Note Text: Radiology Service Progress Note DATE OF SERVICE: November 24, 2023 TIME: 3:27 PM PATIENT IDENTITY VERIFICATION COMPLETED USING TWO (2) STANDARD IDENTIFIERS: Name and Date of confirmed by patient verbally. FALL SCREENING: Has the patient had 2 falls in the last year or 1 fall with injury or currently using an Ambulatory Assistive Device (Walker, Cane, Wheelchair, Crutches, etc.)? No PATIENT GENDER DATA: Male PATIENT RELEVANT IMPLANT DATA REVIEWED: Yes PATIENT PRESENTS WITH AN IMPLANTABLE OR ATTACHED ANIMAL RESEARCHER: No ALLERGIES: Reviewed and unchanged CONTRAST ALLERGY: NO. EXAM: CT -CONTRAST INDUCED NEPHROPATHY RISK FACTORS: Patient age > 60 years CREATININE: Creatinine Date Value Ref Range Status 11/24/2023 1.07 0.73 - 1.22 mg/dL Final 04/01/2023 1.10 0.73 - 1.22 mg/dL Final Estimated Glomerular Filtration Rate Date Value Ref Range Status 11/24/2023 76 >=60 mL/min/1.73m? Final Comment: Estimated Glomerular Filtration Rate (eGFR) is calculated using the 2020 CKD-EPI creatinine equation. This equation utilizes serum creatinine, sex, and age as parameters. The creatinine assay has traceable calibration to isotope dilution-mass spectrometry. Refer to KDIGO guidelines for clinical interpretation. In patients with unstable renal function, e.g. those with acute kidney injury, the eGFR may not accurately reflect actual GFR. P.O.C.T. RESULTS: POC done: Yes, See Lab Tab November 24, 2023 TREATMENT: N/A PERIPHERAL IV DATA: Ambulatory: A peripheral IV was started in the Left antecubital site with a Angio cath: 22 gauge. RADIOLOGY DEPARTMENT: CT; Exam(s) Completed: Chest SIGNATURE: RT Rl(R) PATIENT NAME: Rey Mead DATE: November 24, 2023 TIME: 3:27 [facility]06-19-2024 History of Present illness Narrative* Va Dunaway MD - 09/01/2023 2:34 PM EDT AMBULATORY TELEPHONE VISIT Rey Mead has consented to this telephone encounter. Persons Present: patient Chief Complaint/Reason: Follow-up after radiation treatment. 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 He is doing well without any specific new complaints. He denies any cough or shortness of breath. CT chest on 08/24/23 showed decreased size of a spiculated mass in the posterior left upper lobe anddecreased size of adjacent irregular nodular opacities. There is a new 8 mm nodule in the lateral left upper lobe. Unchanged appearance of multiple clustered nodules in the lateral right middle lobe,posterior right lower lobe and left lung apex. No new thoracic lymphadenopathy. Data Reviewed: Most recent imaging . Assessment: Good initial response to SBRT. However, there is a new small lung nodule. Plan: He is scheduled to have CT chest on 11/24/23 and then to see Dr. Duncan. Follow-up with me in 3 months. Total Time Spent: 5 minutes Va Dunaway MD documented in this encounterSelect Medical [facility]06-14-2024 Telephone encounter Note * Telephone Encounter - Jacy aPlomino RN - 08/27/2023 8:49 AM EDT Please reschedule today's phone call appointment to Wed the at 230. His CT scan is not resulted yet. Pt is aware. [facility]06-14-2024 Miscellaneous Notes* Telephone Encounter - Jacy Palomino RN - 08/27/2023 8:49 AM EDT Please reschedule today's phone call appointment to Wed at 230. His CT scan is not resulted yet. Pt is aware. documented in this encounterSelect [facility]06-11-2024 History of Present illness Narrative* Merari Olson, RT(R) - 08/24/2023 9:00 AM EDT Radiology Service Progress Note PATIENT NAME: Rey Mead DATE OF SERVICE: August 24, 2023 TIME: 4:13 PM PATIENT IDENTITY VERIFICATION COMPLETED USING TWO (2) IDENTIFIERS: Name and Date of confirmedby patient verbally. FALL SCREENING: Has the patient had 2 falls in the last year or 1 fall with injury or currently using an Ambulatory Assistive Device (Walker, Cane, Wheelchair, Crutches, etc.)? No PATIENT GENDER DATA: Male PATIENT RELEVANT IMPLANT DATA REVIEWED: Yes PATIENT PRESENTS WITH AN IMPLANTABLE OR ATTACHED ANIMAL RESEARCHER: No RADIOLOGY DEPARTMENT: CT; Exam(s) Completed: Chest PERIPHERAL IV DATA: Not applicable SIGNED BY: RT Rl(R) August 24, 2023 4:13 PM documented in this encounterSelect Medical [facility]05-03-2024 History of Present illness Narrative* Valdemar Duncan MD - 07/16/2023 3:45 PM EDT HISTORY OF PRESENT ILLNESS: Rey Mead is a 68 year old male with history right non small cell lung cancer stage I resected 2016, now with metachronous SCC left lung, 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 Stage IA3 Met with CTS, inoperable. Seeing rad onc for consideration of SBRT. We met to discuss risks and benefits of adjuvant chemotherapy. CLINICAL IMPRESSION: Non small cell lung cancer as above. Stage does not predict significant if any benefit from adjuvant chemotherapy, co morbidities raise risks of such therapy, underlying renal function is marginal. Feel risks of adjuvant chemotherapy outweigh benefits RECOMMENDATION/PLAN: 1. See back in [address] scan to initiate surveillance Written and verbal health teaching given to patient, patient verbalizes understanding and agrees with treatment plan. PAST MEDICAL HISTORY Diagnosis Date Anxiety state CAD (coronary artery disease) CKD (chronic kidney disease) stage 3, GFR 30-59 ml/min (HCC) COPD (chronic obstructive pulmonary disease) (HCC) Diabetes mellitus (HCC) Former smoker History of bronchoscopy HTN (hypertension) Hypokalemia Lung cancer (HCC) Mixed hyperlipidemia ELLEN (obstructive sleep apnea) Other emphysema (HCC) Other emphysema (HCC) PAST SURGICAL HISTORY Procedure Laterality Date BYPASS GRAFT OTHR,CGFPA-KAR-HSD LOBECTOMY, SEGMENT FAMILY HISTORY Problem Relation Age of Onset Diabetes Mother Heart Mother Cancer Mother Leukemia Father Colon Cancer Sister Diabetes Sister Emphysema Sister Emphysema Sister Emphysema Sister Emphysema Sister Heart Attack Maternal Grandmother Heart Attack Maternal Grandfather Social History Tobacco Use Smoking status: Former Packs/day: 2.00 Years: 48.00 Additional pack years: 0.00 Total pack years: 96.00 Types: Cigarettes Smokeless tobacco: Never Vaping Use Vaping Use: Never used Substance Use Topics Alcohol use: Yes Comment: occ Drug use: Never ALLERGIES: ALLERGIES No Known Allergies CURRENT OUTPATIENT MEDICATIONS: fluticasone/umeclidin/vilanter (TRELEGY ELLIPTA INHALATION) Inhale as instructed. ALBUTEROL INHALATION Inhale 2 Puffs as instructed every 4 hours as needed. aspirin 81 mg cap Take 81 mg by mouth once daily. atorvastatin (LIPITOR) 20 mg tablet Take 20 mg by mouth once daily. albuterol (PROVENTIL) 2.5 mg /3 mL (0.083 %) nebulizer solution FARXIGA 5 mg tablet Take 5 mg by mouth once daily. furosemide (LASIX) 40 mg tablet Take 40 mg by mouth once daily. lisinopril 2.5 mg tablet Take 2.5 mg by mouth once daily. LORazepam (ATIVAN) 1 mg tablet Take 1 mg by mouth once daily. metFORMIN ER (FORTAMET) 500 mg 24 hr tablet Take 500 mg by mouth once daily. metoprolol tartrate, short acting, (LOPRESSOR) 50 mg tablet Take 50 mg by mouth once daily. PARoxetine (PAXIL) 10 mg tablet Take 10 mg by mouth once daily. pregabalin (LYRICA) 150 mg capsule Take 150 mg by mouth once daily. roflumilast (DALIRESP) 250 mcg tablet Take 250 mcg by mouth once daily. RYBELSUS 14 mg tablet Take 14 mg by mouth once daily. tamsulosin (FLOMAX) 0.4 mg Take 0.4 mg by mouth once daily. L.acid/L.casei/B.bif/B.link/FOS (PROBIOTIC BLEND ORAL) Take 6 Billion Cells by mouth once daily. iv contrast (will be provided with radiology test) CT Chest W -Inject, intravenously, once for 1 dose.No IV access, insert saline lock prior to the beginning of sedation, infusion, injection of imaging exam. Discontinue saline lock post exam. If Pt. has a central line or IVAD, may access for administration according to line specific nursing protocol. Once exam is complete flush line and de-accessaccording to line specific nursing protocol in the CT contrast administration guidelines link. VITAMIN B COMPLEX-100 ORAL Take by mouth. (Patient not taking: Reported on 04/21/2023) [id number] INHALATION Inhale as instructed. (Patient not taking: Reported on 04/21/2023) albuterol HFA (PROVENTIL HFA, VENTOLIN HFA) 90 mcg/actuation inhaler (Patient not taking: Reported on 04/21/2023) REVIEW OF SYSTEMS: GENERAL: No fever, night sweats, weight loss or malaise. All other reviewed and negative other than HPI. PHYSICAL EXAMINATION: VITAL SIGNS: BP 113/71 Pulse 55 Temp (Src) 97.8 (Temporal) Wt 217 lb 8 oz (98.7kg) SpO2 97% GENERAL APPEARANCE: Well appearing, in no acute distress, alert and oriented x3, well-hydrated, well nourished. I spent a total of 20 minutes on the date of the service which included preparing to see the patient, [id number] patient care, completing clinical documentation, obtaining and/or reviewing separately obtained history, counseling and educating the patient/family/caregiver, independently interpretin g results (not separately reported), and communicating results to the patient/family/caregiver. Electronically Signed: Valdemar Duncan MD July 16, 2023 documented in this encounterSelect Medical [facility]04-10-2024 History of Present illness Narrative* Va Dunaway MD - 06/23/2023 9:32 AM EDT AMBULATORY TELEPHONE VISIT Rey Mead has consented to this telephone encounter. Persons Present: patient Chief Complaint/Reason: Four week follow-up after radiation treatment. 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 He is doing well without any specific new complaints. He denies any cough or shortness of breath. Data Reviewed: None. Assessment: He doesn't have any significant acute treatment complications. Plan: I will get CT chest in 2 months. Total Time Spent: 5 minutes Va Dunaway MD documented in this encounterSelect Medical [facility]health [facility] Hospital03-20-2024 History of Present illness Narrative* Elena Bah RT(R) - 06/02/2023 11:00 AM EDT Radiology Service Progress Note PATIENT NAME: Rey Mead DATE OF SERVICE: June 02, 2023 TIME: 1:30 PM PATIENT IDENTITY VERIFICATION COMPLETED USING TWO (2) IDENTIFIERS: Name and Date of confirmedby patient verbally. FALL SCREENING: Has the patient had 2 falls in the last year or 1 fall with injury or currently using an Ambulatory Assistive Device (Walker, Cane, Wheelchair, Crutches, etc.)? No PATIENT GENDER DATA: Male PATIENT RELEVANT IMPLANT DATA REVIEWED: Not Applicable PATIENT PRESENTS WITH AN IMPLANTABLE OR ATTACHED ANIMAL RESEARCHER: No RADIOLOGY DEPARTMENT: General X-ray: Exam(s) Completed: Chest X-Ray PERIPHERAL IV DATA: Not applicable SIGNED BY: RT Duran(R) June 02, 2023 1:30 PM documented in this encounterSelect Medical Trihealth [facility] Hospital03-08-2024 Nurse Note* Jacy Palomino RN - 05/21/2023 11:35 AM EST Written discharge instructions given and reviewed with patient. Patient verbalizes understanding. Encouraged to call with any questions or concerns. Instruction for 4 week follow up appointment givenby Dr. Dunaway. 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 DELIVERED DOSE: 5000 cGy in 5 fractions treating to the 70.8% isodose line with 6MV FFF and 2 haque. ELAPSED TIME: 9 days. TOLERANCE/ RESPONSE: He is doing well without any specific new complaints. REMARKS: He tolerated radiation treatment well. Four week follow-up with me. Staff Physician VA DUNAWAY M.D. / 1:33 AM Electronically Signed cc: Romain Roach [address] [place] [id number] Tay Montiel [address] documented in this encounterSelect Medical Trihealth Rehabilitation Hospital03-06-2024 Nurse Note* Jacy Palomino RN - 05/19/2023 10:23 AM EST Radiation Therapy - Nursing Note (OTV) PATIENT NAME: Rey Mead PATIENT May 19, 2023 [facility] FACILITY/LOCATION: [place] NURSING NOTE TYPE: CHEST Subjective Data no complaints Additional Data Do you want to see a Churn Driller Helper? No Status: Patient is male Stress Scale: On a scale of 0 to 10, what number best describes how much distress you have experienced in the past week?(0 being no distress and 10 being extreme distress) 7 Social work notified: Pt denied need to see social science instructor at this time. Nursing Assessment Fatigue: none Appetite: good Nutritional Intake: Regular oral intake. Weight Gain/Loss: No Ambulatory weight history: Last 6 Encounter Wt Readings: Date: Wt: 04/21/2023 99.8 kg (220 lb) 04/21/2023 99.8 kg (220 lb) 04/01/2023 96.8 kg (213 lb 6.5 oz) 03/26/2023 98.4 kg (217 lb) 03/18/2023 100.2 kg (221 lb) 03/17/2023 100.2 kg (221 lb) Nausea:None Vomiting: None Bowel Function: normal bowel movements Erythema/Hyperpigmentation:none Desquamation:none Rash:none Skin Care: Aquaphor Skin Sensation: Within Normal Limits Focused Assessment CHEST: Dysphagia: No. Pain with swallowing: No. Shortness of breath: No. Cough: yes but not new. 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 COURSE: SBRT (stereotactic body radiotherapy) AREA TREATED: Left upper lung CURRENT DOSE: 4000 cGy in 4 fx PLANNED DOSE: 5000 cGy in 5 fx SUBJECTIVE: He is doing well without any specific new complaints. EXAM: KPS: 100 General Appearance: Alert and oriented. No acute distress. IMAGING/LAB RESULTS: None Treatment chart checked: Yes Patient treatment site reviewed and verified:Yes CBCTs reviewed and current:Yes Medications started: None ASSESSMENT/PLAN: Clinically stable. Toxicity within expected parameters. Continue radiation treatment as planned. Va Dunaway MD documented in this encounterSelect Medical Trihealth [facility] Hospital02-23-2024 History of Present illness Narrative* Clarita Mcmillan, RT(R) - 05/07/2023 11:20 AM EST Radiology Service Progress Note DATE OF SERVICE: May 07, 2023 TIME: 11:46 AM PATIENT IDENTITY VERIFICATION COMPLETED USING TWO (2) STANDARD IDENTIFIERS: Name and Date of confirmed by patient verbally. FALL SCREENING: Has the patient had 2 falls in the last year or 1 fall with injury or currently using an Ambulatory Assistive Device (Walker, Cane, Wheelchair, Crutches, etc.)? No PATIENT GENDER DATA: Male PATIENT RELEVANT IMPLANT DATA REVIEWED: Yes PATIENT PRESENTS WITH AN IMPLANTABLE OR ATTACHED ANIMAL RESEARCHER: No ALLERGIES: Reviewed and unchanged CONTRAST ALLERGY: NO. EXAM: MRI - CONTRAST TYPE: GROUP II PERIPHERAL IV DATA: Ambulatory: A peripheral IV was started in the Left forearm with a Angio cath: 22 gauge. RADIOLOGY DEPARTMENT: MR; Exam(s) Completed: Head: Routine Brain SIGNATURE: RT Kaveh(R) PATIENT NAME: Rey Mead DATE: May 07, 2023 TIME: 11:46 AM documented in this encounterSelect Medical Trihealth [facility] Hospital02-16-2024 History and physical note * Diane Fulton RN - 04/30/2023 11:00 AM EST Radiation Therapy - Patient Education Note PATIENT NAME: Rey Mead PATIENT April 30, 2023 [facility] FACILITY/LOCATION: [place] READINESS TO LEARN Cognitive Ability: Alert and oriented Motivation to learn: Interested Family Support: None - Unavailable/disinterested Instruction provide to: Patient Patient learns best by: Individual Instruction Factors effecting learning: None Physical limitations effecting learning: None LEARNING RESPONSE Diagnosis: Pt simulated today for radiation therapy to left lung. Education Topic/Teaching Points: Radiation therapy: Method of instruction: Individual instruction Patient /Family response: Patient verbalized understanding of radiation treatments, side effects, OTV, and transportation. Follow-up plan: Complete - No need for follow-up Supplemental material: Informational handouts on Department phone list and Esophagitis/Mucositis. Referral (recommendation): None, Pt denied need for social work, van service, and sports administrator. Was approved? 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 AREA:Left Upper Lung. PATIENT POSITION: Supine. CONTRAST: None PROTOCOL: None BLOCKING: Custom blocking to be determined at treatment planning. FIXATION DEVICE: In order to achieve accurate and reproducible treatments, the patient is to be immobilized with Infomous SBRT System, compression belt, and body fix. PROCEDURE: A time-out was conducted and recorded by the therapist. Patient was simulated on the CT scanner for external beam radiation therapy. Treatment site was marked by the simulation therapist. ASSESSMENT/PLAN: Patient tolerated simulation procedure well. Treatments will be initiated after treatment planning. The patient is scheduled for a verification simulation on the treatment machine toensure proper set-up and field arrangement is correct prior to the first treatment of primary and boost haque if applicable. Electronically Signed Va Dunaway M.D./ 412:35 PM documented in this encounterSelect Medical Trihealth [facility] Hospital02-16-2024 History of Present illness Narrative* Va Dunaway MD - 04/30/2023 12:00 AM EST REY MEAD Navjot [id number] 04/30/2023 [facility] Department of Radiation Oncology Treatment Planning Note For reasons stated in the consult note, Rey Mead is a candidate for radiation therapy. Based onreview and interpretation of the relevant diagnostic studies together with the exam findings, Rye Mead was simulated on 04/30/2023 at which time the target volume and/or requisite haque were delineated, as indicated in the simulation note, to be treated according to the prescription. An ITV was created from all the phases of respiratory motion captured by the 4DCT image sets. Motion management allowed for design of patient specific planning target volume and reduced the radiationexposure to normal tissues. The treatment target and organs at risk were contoured on the simulation scan using the fused PET. Special consideration to these and other structures was given in light of the potential for increased toxicities of stereotactic body radiation therapy (SBRT). Pulmonary function testing was reviewed. After reviewing multiple treatment plans with dosimetry, the best plan was approved to deliver the prescribed course of radiation to the target area using inverse planning to allow for the best isodose distribution, treating to the 70.8% isodose line with 6MV FFF and 2 haque. Custom MLC and asym jaws for IMRT were the treatment devices used to shape/modify the beams. Limiting dose to normal tissue was confirmed upon review of the calculated dose volume histogram. IMRT planning was used because it best met the dose/volume constraints for the organs at risk for this patient, better than what could be achieved using conventional or 3D planning. The specific doserequirements for the PTV, organs at risk and dose-volume histograms are contained in this treatmentplan and/or elsewhere in the medical record. A completed summary of this plan dated 05/11/2023 incorporated herein by reference includes dose, beam arrangements, energy, blocking, isodose distribution, and/or ports and DVH. Electronically Signed Va Dunaway M.D. 410:25 AM documented in this encounterSelect Medical Trihealth [facility]02-09-2024 History of Present illness Narrative* Va Dunaway MD - 04/23/2023 2:25 PM EST Radiation Oncology - New Patient/Consult Note PATIENT NAME: Rey Mead PATIENT REQUESTING PROVIDER: Dr. 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 HPI: 68 year old male who presents with above diagnosis, for an opinion regarding the role of radiation therapy in the management of the patient's disease. Final recommendations will be communicated back to the requesting physician by way of the shared medical record, or letter to requesting physician via US mail. 68 year old man with history of stage I right upper lobe non-small cell lung cancer in 2017 treatedwith RUL lobectomy. He sees Dr. Hurd for COPD. He was found to have FRANCK lung nodule on CT chest in 12/2022. PET/CT scan on 02/09/23 showed a hypermetabolic lesion in the left upper lobe lung measuring 34.7 mm with max SUV 6.1. Repeat CT chest on 04/01/23 showed Interval increase in size of malignant left upper lobe solid lung mass measuring 4.8 x 3.7 cm with spiculated margins. Interval development of nodular and consolidative opacities distal to the mass, which may represent lymphangitic carcinomatosis or postobstructive pneumonia. He underwent bronchoscopy on 04/05/23 and was found to have extrinsic compression was found in the apical posterior segment of the left upper lobe secondary to a mass. Core biopsy of the left upper lung mass showed keratinizing squamous cell carcinoma. EBUS and TBNA of station 7 node and 11L node were negative for malignant cells. PD-L1 75%. He was seen by Dr. Chadwick and was thought to be not a good candidate for surgery considering his previous lobectomy. FEV1 was 1.59L and 50% predicted and DLCO 61% predicted. ALLERGIES No Known Allergies Current Outpatient Medications on File Prior to Visit Medication Sig VITAMIN B COMPLEX-100 ORAL Take by mouth. (Patient not taking: Reported on 04/21/2023) fluticasone/umeclidin/vilanter (TRELEGY ELLIPTA INHALATION) Inhale as instructed. [id number] INHALATION Inhale as instructed. (Patient not taking: Reported on 04/21/2023) ALBUTEROL INHALATION Inhale 2 Puffs as instructed every 4 hours as needed. aspirin 81 mg cap Take 81 mg by mouth once daily. atorvastatin (LIPITOR) 20 mg tablet Take 20 mg by mouth once daily. albuterol (PROVENTIL) 2.5 mg /3 mL (0.083 %) nebulizer solution albuterol HFA (PROVENTIL HFA, VENTOLIN HFA) 90 mcg/actuation inhaler (Patient not taking: Reported on 04/21/2023) FARXIGA 5 mg tablet Take 5 mg by mouth once daily. furosemide (LASIX) 40 mg tablet Take 40 mg by mouth once daily. lisinopril 2.5 mg tablet Take 2.5 mg by mouth once daily. LORazepam (ATIVAN) 1 mg tablet Take 1 mg by mouth once daily. metFORMIN ER (FORTAMET) 500 mg 24 hr tablet Take 500 mg by mouth once daily. metoprolol tartrate, short acting, (LOPRESSOR) 50 mg tablet Take 50 mg by mouth once daily. PARoxetine (PAXIL) 10 mg tablet Take 10 mg by mouth once daily. pregabalin (LYRICA) 150 mg capsule Take 150 mg by mouth once daily. roflumilast (DALIRESP) 250 mcg tablet Take 250 mcg by mouth once daily. RYBELSUS 14 mg tablet Take 14 mg by mouth once daily. tamsulosin (FLOMAX) 0.4 mg Take 0.4 mg by mouth once daily. L.acid/L.casei/B.bif/B.link/FOS (PROBIOTIC BLEND ORAL) Take 6 Billion Cells by mouth once daily. No current facility-administered medications on file prior to visit. PAST MEDICAL HISTORY Diagnosis Date Anxiety state CAD (coronary artery disease) CKD (chronic kidney disease) stage 3, GFR 30-59 ml/min (HCC) COPD (chronic obstructive pulmonary disease) (HCC) Diabetes mellitus (HCC) Former smoker History of bronchoscopy HTN (hypertension) Hypokalemia Lung cancer (HCC) Mixed hyperlipidemia ELLEN (obstructive sleep apnea) Other emphysema (HCC) Other emphysema (HCC) Prior radiation therapy, collagen vascular disease, or inflammatory bowel disease: No Any implanted or external electric devices? No PAST SURGICAL HISTORY Procedure Laterality Date BYPASS GRAFT OTHR,[id number] LOBECTOMY, SEGMENT FAMILY HISTORY Problem Relation Age of Onset Diabetes Mother Heart Mother Cancer Mother Leukemia Father Colon Cancer Sister Diabetes Sister Emphysema Sister Emphysema Sister Emphysema Sister Emphysema Sister Heart Attack Maternal Grandmother Heart Attack Maternal Grandfather Social History Tobacco Use Smoking status: Former Packs/day: 2.00 Years: 48.00 Additional pack years: 0.00 Total pack years: 96.00 Types: Cigarettes Smokeless tobacco: Never Vaping Use Vaping Use: Never used Substance Use Topics Alcohol use: Yes Comment: occ Drug use: Never COMPLETE REVIEW OF SYSTEMS: GENERAL: feeling well without fatigue, no recent change in weight HEENT: denies MOY, change in hearing or vision, no other ENT complaints NECK: denies swelling or pain in neck RESPIRATORY: chronic shortness of breath with exertion. CARDIOVASCULAR: no chest pain, no palpitations GI: constipation/diarrhea. : urination is normal MUSCULOSKELETAL: Right calf pain with exertion. SKIN: no rash HEMATOLOGY/LYMPHOLOGY: negative for prolonged bleeding, no swollen lymph nodes NEURO: chronic tingling in hands/feet. PHYSICAL EXAM: VS: BP 112/73 Pulse 80 Temp 36.7 C (98 F) Resp 17 Wt 99.8 kg (220 lb) SpO2 97% BMI 31.85 kg/m KPS: 90 General Appearance: Alert and oriented. No acute distress. HEENT: NCAT. Sclera anicteric. EOMI. Neck: Normal ROM. Chest: No respiratory distress. Musculoskeletal: Normal ROM in extremities. Neuro: Speech fluent. Gait normal. No focal deficits. Hematologic: No signs of active bleeding. 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 He was seen by a thoracic surgeon, Dr. Chadwick and was thought to be not a good candidate for surgery. I recommend SBRT. I explained the rationale, benefits, alternative management options and potential complications of radiation treatment to the patient and he understands and agrees to proceed. It was explained and understood that other personnel such as radiation therapists, reliability manager, and physicists will participate in planning and delivery of radiation treatment. Permanent tattoo parada will be placed to aid with positioning for daily treatment and the patient consented. Patient will have a simulation procedure after his MRI brain. He will see Dr. Duncan for consideration of systemic therapy. Thank you very much for allowing us to participate in his care. Signed by: Va Dunaway MD cc: Romain Roach [address] [place] [id number] Tay Montiel [address] [facility] [id number] Valdemar Duncan documented in this encounterSelect Medical Trihealth [facility] Hospital02-07-2024 Nurse Note* Enriqueta Amado RN - 04/21/2023 9:20 AM EST Intake information documented in the prior visit with Dr. Duncan today. Radiation Therapy - Nursing Note (Consult) PATIENT NAME: Rey Mead PATIENT April 21, 2023 [facility] FACILITY/LOCATION: [place] Chief Complaint: consult Reason for visit: Consult. Referring physician: Internal provider Dr Montiel Subjective Data: no complaints Additional Data Do you want to see a Churn Driller Helper? No Are you interested in information about fertility? No Status: Patient is male Stress Scale: On a scale of 0 to 10, what number best describes how much distress you have experienced in the past week?(0 being no distress and 10 being extreme distress) 7 Social work notified: Pt denied need to see social science instructor at this time. SIGNED by: Enriqueta Amado RN documented in this encounterSelect Medical Trihealth [facility]02-07-2024 History of Present illness Narrative* Valdemar Duncan MD - 04/21/2023 9:01 AM EST HISTORY OF PRESENT ILLNESS: Rey Mead is a 68 year old male with history right non small cell lung cancer stage I resected 2016, now with metachronous SCC left lung, 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 Stage IA3 Met with CTS, inoperable. Seeing rad onc for consideration of SBRT. We met to discuss risks and benefits of adjuvant chemotherapy. CLINICAL IMPRESSION: Non small cell lung cancer as above. Stage does not predict significant if any benefit from adjuvant chemotherapy, co morbidities raise risks of such therapy, underlying renal function is marginal. Feel risks of adjuvant chemotherapy outweigh benefits RECOMMENDATION/PLAN: 1. He will meet with rad onc 2. I will see back after that to initiate surveillance Written and verbal health teaching given to patient, patient verbalizes understanding and agrees with treatment plan. PAST MEDICAL HISTORY Diagnosis Date Anxiety state CAD (coronary artery disease) CKD (chronic kidney disease) stage 3, GFR 30-59 ml/min (HCC) COPD (chronic obstructive pulmonary disease) (HCC) Diabetes mellitus (HCC) Former smoker History of bronchoscopy HTN (hypertension) Hypokalemia Lung cancer (HCC) Mixed hyperlipidemia ELLEN (obstructive sleep apnea) Other emphysema (HCC) Other emphysema (HCC) PAST SURGICAL HISTORY Procedure Laterality Date BYPASS GRAFT OTHR,[id number] LOBECTOMY, SEGMENT FAMILY HISTORY Problem Relation Age of Onset Diabetes Mother Heart Mother Cancer Mother Leukemia Father Colon Cancer Sister Diabetes Sister Emphysema Sister Emphysema Sister Emphysema Sister Emphysema Sister Heart Attack Maternal Grandmother Heart Attack Maternal Grandfather Social History Tobacco Use Smoking status: Former Packs/day: 2.00 Years: 48.00 Additional pack years: 0.00 Total pack years: 96.00 Types: Cigarettes Smokeless tobacco: Never Vaping Use Vaping Use: Never used Substance Use Topics Alcohol use: Yes Comment: occ Drug use: Never ALLERGIES: ALLERGIES No Known Allergies CURRENT OUTPATIENT MEDICATIONS: fluticasone/umeclidin/vilanter (TRELEGY ELLIPTA INHALATION) Inhale as instructed. ALBUTEROL INHALATION Inhale 2 Puffs as instructed every 4 hours as needed. aspirin 81 mg cap Take 81 mg by mouth once daily. atorvastatin (LIPITOR) 20 mg tablet Take 20 mg by mouth once daily. albuterol (PROVENTIL) 2.5 mg /3 mL (0.083 %) nebulizer solution FARXIGA 5 mg tablet Take 5 mg by mouth once daily. furosemide (LASIX) 40 mg tablet Take 40 mg by mouth once daily. lisinopril 2.5 mg tablet Take 2.5 mg by mouth once daily. LORazepam (ATIVAN) 1 mg tablet Take 1 mg by mouth once daily. metFORMIN ER (FORTAMET) 500 mg 24 hr tablet Take 500 mg by mouth once daily. metoprolol tartrate, short acting, (LOPRESSOR) 50 mg tablet Take 50 mg by mouth once daily. PARoxetine (PAXIL) 10 mg tablet Take 10 mg by mouth once daily. pregabalin (LYRICA) 150 mg capsule Take 150 mg by mouth once daily. roflumilast (DALIRESP) 250 mcg tablet Take 250 mcg by mouth once daily. RYBELSUS 14 mg tablet Take 14 mg by mouth once daily. tamsulosin (FLOMAX) 0.4 mg Take 0.4 mg by mouth once daily. L.acid/L.casei/B.bif/B.link/FOS (PROBIOTIC BLEND ORAL) Take 6 Billion Cells by mouth once daily. VITAMIN B COMPLEX-100 ORAL Take by mouth. (Patient not taking: Reported on 04/21/2023) [id number] INHALATION Inhale as instructed. (Patient not taking: Reported on 04/21/2023) albuterol HFA (PROVENTIL HFA, VENTOLIN HFA) 90 mcg/actuation inhaler (Patient not taking: Reported on 04/21/2023) REVIEW OF SYSTEMS: GENERAL: No fever, night sweats, weight loss or malaise. All other reviewed and negative other than HPI. PHYSICAL EXAMINATION: VITAL SIGNS: BP 112/73 Pulse 80 Temp 98 Ht 5' 9.685 (1.77m) Wt 220 lb (99.8kg) SpO2 97% BMI 31.85 kg/(m^2). GENERAL APPEARANCE: Well appearing, in no acute distress, alert and oriented x3, well-hydrated, well nourished. I spent a total of 60 minutes on the date of the service which included preparing to see the patient, [id number] patient care, completing clinical documentation, obtaining and/or reviewing separately obtained history, counseling and educating the patient/family/caregiver, independently interpretin g results (not separately reported), and communicating results to the patient/family/caregiver. Electronically Signed: Valdemar Duncan MD April 21, 2023 9:08 AM documented in this encounterSelect Medical Trihealth [facility]02-01-2024 History of Present illness Narrative* Fermín Chadwick MD, PhD - 04/15/2023 10:00 AM EST THORACIC TELEHEALTH PROGRESS NOTE This is a distance health visit using a telephone platform. It requires patient- provider interaction for the medical decision making as documented below. Rey Mead has consented to this type of encounter. I have communicated my name and active licensure. The patient's identity and physical location wereverified at the time of this visit. Either the patient or their legal enrollment eligibility representative has been informed of the risks and benefits of -- and alternatives to -- treatment through a remote evaluation andconsents to proceed with the evaluation remotely. Rey Mead is a 68 year old male seen for FRANCK Squamous Cell CA. Last visit encounter 03/18/[address] Chadwick IMPRESSION: Left lung nodule with high pretest probability of non-small cell lung cancer in a 67-year-old man with poor pulmonary function and near resting hypoxia. I have reached out to the Interventional Pulmonary team to solicit bronchoscopic biopsy and EBUS assessment and if done and cancer is identified, SBRT might be the most reasonable treatment option if local nodes are found to be negative for metastatic disease. EBUS Path: 04/05/2023 FINAL DIAGNOSIS A. Lung, left upper lobe mass, core biopsy: - Fragments of keratinizing squamous cell carcinoma. B. Lung, left upper lobe mass, endobronchial biopsy: - Fragments of keratinizing squamous cell carcinoma. Electronically signed by Barak Gomez MD FINAL DIAGNOSIS A - TRANSBRONCHIAL FINE-NEEDLE ASPIRATION - LEFT UPPER LOBE MASS Positive for malignant cells. Keratinizing squamous cell carcinoma (see comment). B - EBUS TRANSBRONCHIAL FINE-NEEDLE ASPIRATION - STATION 7 Negative for malignant cells. Benign lymphoid sample. C - EBUS TRANSBRONCHIAL FINE-NEEDLE ASPIRATION - 11L Negative for malignant cells. A limited lymphoid sample of scattered scant lymphocytes was seen in the needle rinse only. The following cell blocks were associated with this case: A1 Cell Block, Alcohol Fixed B1 Cell Block, Alcohol Fixed C1 Cell Block, Alcohol Fixed Electronically signed by Dariela Bradford MD TELE ENC: Tay Montiel MD 04/07/23 1:22 PM Results from bronchoscopy reviewed with patient. Biopsy of FRANCK mass shows SqCCa. Staging EBUS negative. Patient previously saw Dr. Chadwick from thoracic surgery - patient deemed poor candidate for surgery given limited pulmonary reserve on PFT's and desaturation during six minute walk. Findings reviewed with Aisha Alyce over the phone today. Recommend completing cancer staging with MRI brain along with consultation with oncology and medical oncology. I will also be presenting his case at our thoracic tumor board next week to see if systemic therapy is needed. Patient voiced understanding, all questions addressed at this time. HISTORY REVIEWED (electronic chart updated): PAST MEDICAL HISTORY Diagnosis Date Anxiety state CAD (coronary artery disease) CKD (chronic kidney disease) stage 3, GFR 30-59 ml/min (HCC) COPD (chronic obstructive pulmonary disease) (HCC) Diabetes mellitus (HCC) Former smoker History of bronchoscopy HTN (hypertension) Hypokalemia Lung cancer (HCC) Mixed hyperlipidemia ELLEN (obstructive sleep apnea) Other emphysema (HCC) Other emphysema (HCC) PAST SURGICAL HISTORY Procedure Laterality Date LOBECTOMY, SEGMENT No family history on file. Social History Tobacco Use Smoking status: Former Packs/day: 2.00 Years: 48.00 Additional pack years: 0.00 Total pack years: 96.00 Types: Cigarettes Smokeless tobacco: Never PHYSICAL EXAMINATION: VIDEO EXAM: (if completed, performed via video enabled technology) No exam performed ASSESSMENT: (Z85.118) Personal history of malignant neoplasm of bronchus and lung (primary encounter diagnosis) PLAN: See note I have spent >25 min counseling and coordinating care, reviewing tests, participating in Tumor board, documenting and treatment planning Fermín Chadwick MD, PhD I have read and reviewed the documentation and agree. I wish to add the following findings which have been dictated and will be communicated back to the requesting physician. Fermín Chadwick MD, PhD [facility] Miscellaneous Notes* Telephone Encounter - Mago Negro - 03/02/2023 10:53 AM EST Reason for call: Mr Mead called and he would like to schedule an appointment with DR Chadwick. Home and cell number:[phone] Diagnosis:Lung Cancer left upper loop. Mago Maradiaga. [facility] Procedure [facility]08[facility]26-2022 Note ORIGINAL EXAMINATION: CT ADRENAL WITHOUT CONTRAST 11/07/2021 11:01 am TECHNIQUE: CT of the abdomen was performed without the administration of intravenous contrast. Automated exposure control, iterative reconstruction, and/or weight based adjustment of the mA/kV was utilized to reduce the radiation dose to as low as reasonably achievable. COMPARISON: Adrenal protocol CT 07/05/2017, PET/CT 06/11/2016. HISTORY: ORDERING SYSTEM PROVIDED HISTORY: Reason for Exam: adrenal mass FINDINGS: A 3.0 x 2.0 cm left adrenal mass previously measured 3.2 x 2.1 cm in 2018 when it had enhancement characteristics consistent with an adenoma. This lesion was also present on a PET scan from 06/11/2016 when it measured 3.0 x 1.9 cm. The right adrenal gland is unremarkable. No additional atherosclerotic disease is shown in the aorta with at least mild stenosis. No additional contributory abnormality identified. Contributory IMPRESSION: No significant change in left adrenal mass since at least 2016 consistent with a benign process requiring no further imaging follow-up. Interpreted by: Brook Mcguire MD Preliminary Report By: Brook Mcguire MD Electronically signed By Brook Mcguire MD Dictated Date: 11/07/2021 11:03:52 AM Prelim Date: 11/07/2021 11:09:10 AM Sign Date: 11/07/2021 11:09:10 AM Ordering Provider: [facility]08-26-2022 Note ORIGINAL EXAMINATION: CT ADRENAL WITHOUT CONTRAST 11/07/2021 11:01 am TECHNIQUE: CT of the abdomen was performed without the administration of intravenous contrast. Automated exposure control, iterative reconstruction, and/or weight based adjustment of the mA/kV was utilized to reduce the radiation dose to as low as reasonably achievable. COMPARISON: Adrenal protocol CT 07/05/2017, PET/CT 06/11/2016. HISTORY: ORDERING SYSTEM PROVIDED HISTORY: Reason for Exam: adrenal mass FINDINGS: A 3.0 x 2.0 cm left adrenal mass previously measured 3.2 x 2.1 cm in 2018 when it had enhancement characteristics consistent with an adenoma. This lesion was also present on a PET scan from 06/11/2016 when it measured 3.0 x 1.9 cm. The right adrenal gland is unremarkable. No additional atherosclerotic disease is shown in the aorta with at least mild stenosis. No additional contributory abnormality identified. Contributory IMPRESSION: No significant change in left adrenal mass since at least 2016 consistent with a benign process requiring no further imaging follow-up. Interpreted by: Brook Mcguire MD Preliminary Report By: Brook Mcguire MD Electronically signed By Brook Mcgiure MD Dictated Date: 11/07/2021 11:03:52 AM Prelim Date: 11/07/2021 11:09:10 AM Sign Date: 11/07/2021 11:09:10 AM Ordering Provider: [facility] 11-08-2019 Evaluation + Plan note Future Appointments Appointment Date:11/07/2021 10:30:00 AM Scheduled Provider: Location:[facility] Appointment Type:CT Abdomen Adrenal Appointment Date:11/07/2021 11:00:00 AM Scheduled Provider: Location:[facility] Appointment Type:CT Chest w/o Contrast Appointment Date:01/22/2022 09:15:00 AM Scheduled Provider:LATOSHA RENEE MD Location:[facility] Appointment Type:ENDO OV Appointment Date:03/30/2022 11:30:00 AM Scheduled Provider:ROAMIN ROACH DO Location:[facility] Appointment Type:PC OV Appointment Date:05/07/2022 09:00:00 AM Scheduled Provider:LYUBOV CASTANEDA Location:[facility] Appointment Type:CV OV Future Scheduled Tests Laboratory* Metanephrines, Plasma 01/19/22 * Prostate Specific Antigen 01/19/22 * A1C Hemoglobin 01/19/22 * Microalbumin Level Urine 01/19/22 * Vitamin D Level 01/19/22 * Complete Metabolic Panel 01/19/22 Radiology* CT Thorax w/o Contrast 11/07/21 * CT Abdomen Adrenal 11/07/21 [facility] Consult note Author Tiff Oconnell [facility] Note Date/Time May 31, 2024 2:2 0pm [facility] Medical Records Department [address] [place] [id number] Anesthesia Postop Eval II 05/31/24 1419 MR#: [id number] Acct: [id number] Name: REY MEAD Rep #:[id number] : [id number] From: Tiff Oconnell PCP: Dr. Angelica Saleh MD Status[place] [facility] [place] C Location: [place] [address] Anesthesia Postop Eval I Sum Postop Eval Completion status Anesthesia document: Postop Eval 1 completed: Yes Anesthesia Postop Eval I Summary Anesthesia Postop Eval I Summary: Anesthesia Postop Eval I: Assessment Summary Airway patent Yes 05/31/24 12:56 [email or web address] [email or web address] Spontaneous unlabored Yes 05/31/24 12:56 [email or web address] respirations Mental status Awake 05/31/24 12:56 [email or web address] nausea No 05/31/24 12:56 [email or web address] Vomiting No 05/31/24 12:56 [email or web address] Anesthesia Postop Eval I: Fluid Summary Crystalloid volume administer 2 05/31/24 12:56 [email or web address] [email or web address] (ml) Colloids volume administered ( ml) Blood Product volume administered (ml) Total IV fluid infused 2 05/31/24 12:56 [email or web address] [email or web address] Anesthesia Postop Eval I: Summary Notes Anesthesia Complication No 05/31/24 12:56 [email or web address] Anesthesia Complication Comment: Post-operative progress note Anesthesia: Postop Eval II Evaluation Mental status: Awake Pain Level: 7 (was baseline abdominal pain patient had been having for past two weeks. ) nausea: No Vomiting: No 05/31/24 1420 <Electronically signed by Tiff betancur> Date _ Tiff Mariaignshelton Signature: Date CC: ~ Signed [facility] Work Phone: Evaluation + Plan note Future Appointments Appointment Date:01/02/2021 09:30:00 AM Scheduled Provider:LATOSHA RENEE MD Location:[facility] Appointment Type:ENDO OV Appointment Date:01/28/2021 11:00:00 AM Scheduled Provider:ROMAIN ROACH DO Location:[facility] Appointment Type:PC OV Appointment Date:05/29/2021 09:30:00 AM Scheduled Provider:LYUBOV CASTANEDA Location:[facility] Appointment Type:CV OV Future Scheduled Tests Radiology* CT Abdomen Adrenal 09/04/20 [facility] Evaluation + Plan note Future Appointments Appointment Date:05/08/2021 09:30:00 AM Scheduled Provider:LATOSHA RENEE MD Location:[facility] Appointment Type:ENDO OV Appointment Date:05/29/2021 09:30:00 AM Scheduled Provider:LYUBOV CASTANEDA Location:[facility] Appointment Type:CV OV Appointment Date:07/29/2021 10:30:00 AM Scheduled Provider:ROMAIN ROACH DO Location:[facility] Appointment Type:PC OV Future Scheduled Tests Laboratory* Prostate Specific Antigen 01/28/21 * A1C Hemoglobin 05/05/21 * Microalbumin Level Urine 01/28/21 * Vitamin D Level 05/05/21 * Complete Metabolic Panel 05/05/21 Radiology* CT Abdomen Adrenal 09/04/20 [facility] Evaluation + Plan note Future Appointments Appointment Date:05/08/2021 09:30:00 AM Scheduled Provider:LATOSHA RENEE MD Location:[facility] Appointment Type:ENDO OV Appointment Date:05/29/2021 09:30:00 AM Scheduled Provider:LYUBOV CASTANEDA Location:[facility] Appointment Type:CV OV Appointment Date:07/29/2021 10:30:00 AM Scheduled Provider:ROMAIN ROACH DO Location:[facility] Appointment Type:PC OV Future Scheduled Tests Laboratory* Prostate Specific Antigen 01/28/21 * Microalbumin Level Urine 01/28/21 Radiology* CT Abdomen Adrenal 09/04/20 [facility] Evaluation + Plan note Future Appointments Appointment Date:09/18/2021 08:45:00 AM Scheduled Provider:LATOSHA RENEE MD Location:[facility] Appointment Type:ENDO OV Appointment Date:09/29/2021 11:30:00 AM Scheduled Provider:ROMAIN ROACH DO Location:[facility] Appointment Type:PC OV Appointment Date:11/03/2021 09:30:00 AM Scheduled Provider:LYUBOV CASTANEDA Location:[facility] Appointment Type:CV OV Future Scheduled Tests Laboratory* Prostate Specific Antigen 01/28/21 * Microalbumin Level Urine 01/28/21 [facility] Evaluation + Plan note Future Appointments Appointment Date:01/22/2022 09:15:00 AM Scheduled Provider:LATOSHA RENEE MD Location:[facility] Appointment Type:ENDO OV Appointment Date:03/30/2022 11:30:00 AM Scheduled Provider:ROMAIN ROACH DO Location:[facility] Appointment Type:PC OV Appointment Date:05/07/2022 09:00:00 AM Scheduled Provider:LYUBOV CASTANEDA Location:[facility] Appointment Type:CV OV Future Scheduled Tests Laboratory* Metanephrines, Plasma 01/19/22 * Prostate Specific Antigen 01/19/22 * A1C Hemoglobin 01/19/22 * Microalbumin Level Urine 01/19/22 * Vitamin D Level 01/19/22 * Complete Metabolic Panel 01/19/22 [facility] Evaluation + Plan note Future Appointments Appointment Date:01/22/2022 09:15:00 AM Scheduled Provider:LATOSHA RENEE MD Location:[facility] Appointment Type:ENDO OV Appointment Date:03/30/2022 11:30:00 AM Scheduled Provider:ROMAIN ROACH DO Location:[facility] Appointment Type:PC OV Appointment Date:05/07/2022 09:00:00 AM Scheduled Provider:LYUBOV CASTANEDA Location:[facility] Appointment Type:CV OV Diagnostic Tests Pending * Metanephrines, Plasma 01/09/22 [facility] Evaluation + Plan note Future Appointments Appointment Date:06/11/2022 09:45:00 AM Scheduled Provider:LATOSHA RENEE MD Location:[facility] Appointment Type:ENDO OV Appointment Date:09/28/2022 09:00:00 AM Scheduled Provider:ROMAIN ROACH DO Location:[facility] Appointment Type:PC OV Appointment Date:11/04/2022 09:00:00 AM Scheduled Provider:LYUBOV CASTANEDA Location:[facility] Appointment Type:CV OV Future Scheduled Tests Laboratory* Microalbumin Level Urine 05/22/22 * Urine Drug Screen 05/28/22 [facility] Evaluation + Plan note Future Appointments Appointment Date:12/10/2022 09:00:00 AM Scheduled Provider:LATOSHA RENEE MD Location:[facility] Appointment Type:ENDO OV Appointment Date:03/11/2023 09:00:00 AM Scheduled Provider:ROMAIN ROACH DO Location:[facility] Appointment Type:PC OV Future Scheduled Tests Laboratory* Microalbumin Level Urine 05/22/22 * Urine Drug Screen 05/28/22 [facility] evaluation + Plan note Future Appointments Appointment Date:06/17/2023 09:00:00 AM Scheduled Provider:LATOSHA RENEE MD Location:[facility] Appointment Type:ENDO OV Appointment Date:06/24/2023 09:00:00 AM Scheduled Provider:ROMAIN ROACH DO Location:[facility] Appointment Type:PC OV Future Scheduled Tests Laboratory* Microalbumin Level Urine 05/22/22 * Urine Drug Screen 05/28/22 [facility] Evalugxzgf noteNo assessment information available [facility] Work Phone: evaluation note* Diagnosis Personal history of malignant neoplasm of bronchus and lung- Primary [facility] [place] [facility] Diagnosis Squamous cell carcinoma of left lung (HCC) [facility] [place] [facility]* Diagnosis Squamous cell carcinoma of left lung (HCC) documented [facility] [place] [facility]* Diagnosis Squamous cell carcinoma of left lung (HCC)- Primary [facility] [place] [facility]* Diagnosis Squamous cell carcinoma of left lung (HCC)- Primary [facility] [place] [facility]* Diagnosis Squamous cell carcinoma of left lung (HCC) [facility] [place] [facility] Diagnosis Squamous cell carcinoma of left lung (HCC)- Primary [facility]* Diagnosis Radiotherapy follow-up- Primary Radiotherapy follow-up examination Malignant neoplasm of unspecified part of unspecified bronchus or lung (HCC) documented [facility] [place] [facility]* Diagnosis Malignant neoplasm of unspecified part of unspecified bronchus or lung (HCC)- Primary [facility] [place] [facility]* Diagnosis Malignant neoplasm of unspecified part of unspecified bronchus or lung (HCC) documented [facility] [place] [facility]* Diagnosis Radiotherapy follow-up- Primary Radiotherapy follow-up examination Squamous cell carcinoma of left lung (HCC) documented [facility] [place] [facility]* Diagnosis Lung mass Swelling, mass, or lump in chest Malignant neoplasm of unspecified part of unspecified bronchus or lung (HCC) documented [facility]* Diagnosis Lung mass Swelling, mass, or lump in chest Malignant neoplasm of unspecified part of unspecified bronchus or lung (HCC)- Primary [facility] Diagnosis Lung mass Swelling, mass, or lump in chest Radiotherapy follow-up- Primary Radiotherapy follow-up examination Squamous cell carcinoma of left lung (HCC) [facility] [place] [facility]* Diagnosis Lung mass Swelling, mass, or lump in chest Malignant neoplasm of unspecified part of unspecified bronchus or lung (HCC) [facility]* Diagnosis Lung mass Swelling, mass, or lump in chest Malignant neoplasm of unspecified part of unspecified bronchus or lung (HCC)- Primary [facility]* Diagnosis Lung mass Swelling, mass, or lump in chest Chest pain, unspecified type- Primary Chest pain, unspecified type [facility] [place] [facility]* Diagnosis Lung mass Swelling, mass, or lump in chest Chest pain, unspecified type [facility] Diagnosis Lung mass Swelling, mass, or lump in chest Squamous cell carcinoma of left lung (HCC)- Primary [facility]* Diagnosis Lung mass Swelling, mass, or lump in chest Squamous cell carcinoma of left lung (HCC)- Primary Paraspinal mass Other symptoms involving nervous and musculoskeletal systems [facility]* Diagnosis Lung mass Swelling, mass, or lump in chest Squamous cell carcinoma of left lung (HCC)- Primary Paraspinal mass Other symptoms involving nervous and musculoskeletal systems [facility]* Diagnosis Lung mass Swelling, mass, or lump in chest Paraspinal mass Other symptoms involving nervous and musculoskeletal systems [facility]* Diagnosis Lung mass Swelling, mass, or lump in chest 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 [facility]* Diagnosis Lung mass Swelling, mass, or lump in chest 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 [facility]* Diagnosis Lung mass Swelling, mass, or lump in chest Primary malignant neoplasm of lung metastatic to other site, unspecified laterality (HCC)- Primary [facility] Diagnosis Lung mass Swelling, mass, or lump in chest Paraspinal mass Other symptoms involving nervous and musculoskeletal systems [facility]* Diagnosis Lung mass Swelling, mass, or lump in chest 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 [facility]* Diagnosis Lung mass Swelling, mass, or lump in chest Malignant neoplasm of unspecified part of unspecified bronchus or lung (HCC)- Primary Squamous cell carcinoma of left lung (HCC) [facility]* Diagnosis Lung mass Swelling, mass, or lump in chest 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 Angelica Saleh MD Status:REG ER Location: ED HPI - General General Date of Admission: 09/04/24 Date of Service: 09/04/24 Chief Complaint: fall, generalized weakness HPI Narrative REY MEAD, is a 69-year-old male with history of ELLEN, lung cancer on radiation, COPD, BPH, diabetes, GERD, anxiety, CAD who presented to [facility] ED 09/06/2024 via EMS after a fall today. His friend was taking him to his radiation appointment as he is receiving radiation therapy on his right lung and when he was getting out of the truck he was transferring to the wheelchair and his legs gave out and he fell to the ground but he did not strike his head. Reportedly he was pale and possibly had eyes rolled back into his head per a bystander but he denies loss of consciousness. Reportedly fell 3times in the past 24 hours and has some generalized weakness. Did note fever today and endorsed he injured his left small toe 3 days ago. On arrival temperature 100.9 which increased to 102.6, heart rate 122 and blood pressure initially 108/62 but down trended to 85/65. White blood cell count 15.3 with hemoglobin of 7.2 with a baseline in the 11 range. Chest x-ray with stable nodular density and/or infiltrate left upper lobe. X-ray of toe and pelvis unremarkable. Patient's BMP with a sodium of 124, potassium 2.5 and glucose 280, lactic acid 2.9. UA not suggestive of UTI. Patient diagnosed with concerns for sepsis and given fluids and antibiotics and hospitalist contacted for admission. Patient evaluated at bedside, he reports he has felt somewhat weak for the past day but denies any increased shortness of breath, no cough, denies fevers at home, the only thing he reports is some intermittent achy abdominal pain for the past 2 days that can last up to a couple hours at a time but is not presently having any, has chronic diarrhea but denies any change in this, no blood in his stool, no urinary changes, did hit left fifth toe on something several days ago and this has become discolored but denies any drainage from this. Currently laying in bed patient reports he is feeling fine and is feeling somewhat better after fluids. No other new or acute complaints. [facility] Medical History Alcohol use Excessive bleeding History of echocardiogram History of stress test Cardiology follow-up encounter Chest pain Vitamin D deficiency Left adrenal mass CAD (coronary artery disease) Blind Cancer Depression Anxiety Diabetes Prostate disease DVT (deep venous thrombosis) High cholesterol Easy bruising Umbilical hernia Neuropathy Injury of head and neck Syncope Former smoker On home oxygen therapy CPAP (continuous positive airway pressure) dependence COPD (chronic obstructive pulmonary disease) Shortness of breath on exertion History of edema Hypertension Home Medications ?Medication ?Instructions ?Recorded ?Last Taken ?Type albuterol sulfate 2.5 mg/3 mL 2.5 mg inhalation DAILY 01/08/23 09/03/24 History (0.083 %) solution for nebulization albuterol sulfate 90 mcg/actuation 2 puff inhalation P RN PRN 01/08/23 05/30/24 History aerosol inhaler shortness of breath or wheez ing aspirin 81 mg tablet,delayed 81 mg PO DAILY 01/08/23 0 09/04/24 History release atorvastatin 20 mg tablet 20 mg PO QHS 01/08/23 History dapagliflozin propanediol 5 mg 5 mg PO DAILY 01/08/23 09/03/24 History tablet (Farxiga) fluticasone fur. 100 mcg-umeclid 1 inh inhalation GURU Y 01/08/23 09/03/24 History 62.5 mcg-vilant 25 mcg inhalat.powder (Trelegy Ellipta) furosemide 40 mg tablet 40 mg PO DAILY 01/08/2308/14 History paroxetine HCl 10 mg tablet 10 mg PO DAILY 01/08/23 History pregabalin 150 mg capsule 150 mg PO DAILY 01/08/23 History roflumilast 250 mcg tablet 250 mcg PO DAILY 01/08/23 0 09/04/24 History tamsulosin 0.4 mg capsule 0.4 mg PO Q24H 01/08/2308/14 History metformin 500 mg tablet,extended 1,500 mg PO QHS 03/2209/04/24 History release 24hr (osmotic) gabapentin 300 mg capsule 300 mg PO QHS 05/10/2409/03 History lorazepam 1 mg tablet 1 mg PO TID #90 tabs 5 Unknown Rx esomeprazole magnesium 40 mg 40 mg PO DAILY 09/04/24 0 09/03/24 History capsule,delayed release insulin lispro protamine-lispro 15 unit subcut BIDCM 0 09/04/24 09/04/24 History 100 unit/mL (75-25) subcutaneous pen (Humalog Mix 75-25 KwikPen) metoprolol succinate 25 mg 25 mg PO DAILY 09/04/24 History tablet,extended release 24 hr oxycodone 5 mg tablet 5 - 10 mg PO Q6H PRN PRN arabella n 09/04/24 Unknown History prednisone 5 mg tablet 15 mg PO DAILY 09/04/24 Unkn own History semaglutide 7 mg tablet (Rybelsus) 7 mg PO DAILY 09/0409/04/24 History vitamin B complex (Complex B-100 1 tab PO DAILY 09/04/24 History tablet,extended release) Allergy/AdvReac Type Severity Reaction Status Date / Time No Known Allergies Allergy Verified 07/24/24 10:03 Family History Mother Cancer LUNG Heart disease Father Cancer lung Sister Cancer lung Heart disease Sister Cancer lung Sister Cancer lung Sister Colon cancer Surgical History Hx of fracture of leg Hx of fracture of foot History of bronchoscopy Hx of biopsy History of lobectomy of lung Hx of oral surgery History of open heart surgery (05/08/15) Social History household members: none 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 Smoking Status: Former smoker quit date: 03/15/15 pack-years: 120 alcohol intake: current alcohol intake frequency: a few times a month Alcohol type: beer substance use type: does not use what type of physical activity do you participate in: none seatbelt use: always do you feel safe at home: Yes ROS ROS Narrative General: Denies fever/chills HENT: Denies headache, denies stuffy nose, denies sore throat EYES: Denies changes in vision Resp: Denies cough, denies shortness of breath Cardiac: Denies chest pain GI: Some chronic diarrhea, no blood in stool, some intermittent centralized abdominal aching off-and-on for the past 2 days lasting up to a couple hours at a time, denies nausea/vomiting : Denies changes in urination Extremity: Denies swelling MSK: Generalized weakness Neuro: Has some chronic neuropathy in his feet Heme: Denies any bleeding or bruising Skin: Does have some discoloration to left fifth toe Psychiatric: No complaints voiced Vital Signs Vital Signs Vital Signs: 09/04/24 10:31 09/04/24 10:39 09/04/24 11:51 Temperature 100.9 F H 102.6 F H Temperature Source Oral Oral Pulse Rate 122 H 107 H Respiratory Rate 12 22 H Respiratory Effort Normal Respiratory Depth Normal Respiratory Pattern Normal Blood Pressure 108/62 92/55 L Blood Pressure Mean 77 67 Pulse Ox 93 93 93 Oxygen Delivery Method Room Air Room Air Room Air 09/04/24 12:40 09/04/24 14:00 Temperature 102.6 F H Temperature Source Oral Pulse Rate 108 H 113 H Respiratory Rate 18 18 Respiratory Effort Respiratory Depth Respiratory Pattern Blood Pressure 85/65 L 96/62 Blood Pressure Mean 71 73 Pulse Ox 95 92 Oxygen Delivery Method Room Air Room Air Weight Weight: 84 kg Body Mass Index (BMI) 24.4 Physical Exam Narrative General: Alert, oriented, no apparent distress HEENT: Atraumatic, normocephalic Eyes: Anicteric, normal conjunctiva Neck: Supple Respiratory: Normal respiratory effort, somewhat diminished bilaterally Cardiovascular: Low-grade sinus tachycardia GI: Soft, nontender, nondistended Extremities: No edema Musculoskeletal: Moving all extremities Neuro: No overt focal neurological deficits Skin: Does have discoloration to left fifth toe without any significant tenderness on palpation per patient no discharge Psych: Cooperative Results Lab / Micro Data 09/04/24 11:00 09/04/24 11:00 Labs: Laboratory Results - last 24 hr 09/04/24 11:00: WBC 15.3 H, RBC 2.60 L, Hgb 7.2 L, Hct 22.7 L, MCV 87.3, MCH 27.7, MCHC 31.7 L, RDW Std Deviation 53.2 H, RDW Coeff of Jaquan 16.9 H, Plt Count 235, MPV 10.1, Immature Gran % (Auto) 1.500 H, Neut % (Auto) 90.2 H, Lymph % (Auto) 2.7 L, [place] % (Auto) 5.5, Eos % (Auto) 0.0, Baso % (Auto) 0.1, Absolute Neuts (auto) 13.8 H, Absolute Lymphs (auto) 0.41 L, Nucleated RBC % 0, Sodium 124 L, Potassium 2.5 L*, Chloride 80 L, Carbon Dioxide 29.8, Anion Gap 14, BUN 8, Creatinine 0.94, Estim Creat Clear Calc 85.00, Est GFR (MDRD) Non-Af 89, BUN/Creatinine Ratio 8.3 L, Glucose 280 H, Lactic Acid 2.9 H*, Calcium 8.4 09/04/24 12:40: Urine Color Yellow, Urine Clarity Clear, Urine pH 6.0, Ur Specific [place] 1.010, Urine Protein 30 H, Urine Glucose (UA) 50 H, Urine Ketones Negative, Urine Occult Blood 10 H, Urine Nitrite Negative, Urine Bilirubin Negative, Urine Urobilinogen Normal, Ur Leukocyte Esterase Negative, Urine RBC 0-5 SEEN, Urine WBC 0-5 SEEN, Ur Squamous Epith Cells 0-5 SEEN, Urine Bacteria 0 SEEN, Urine Mucus 0 SEEN Micro: Microbiology 09/04/24 11:06 Mucosa - Nose SARS-CoV-2, Influenza & RSV (PCR) - Final Imaging Radiology Impression Chest X-Ray 09/04/24 11:02 IMPRESSION: Stable examination with evidence of hyperinflation and pulmonary hypertension. Stable nodular density and/or infiltrate in the left upper lobe. Reading Location: [id number] Pelvis X-Ray 09/04/24 11:06 IMPRESSION: No acute abnormality is seen. Dense atherosclerotic calcification of the abdominal aorta and iliac arteries. Reading Location: [facility] Toe X-Ray 09/04/24 11:06 IMPRESSION: No acute fracture is seen. Reading Location: [facility] Assessment & Plan Assessment/Plan (1) Sepsis: PLAN: Plan # Suspect sepsis, unclear source -Patient hypotensive, febrile, tachycardic, with a lactic acid of 2.9 with an elevated white blood cell count of 15.3 -Chest x-ray reported stable nodular density -UA not infectious appearing -COVID/flu/RSV negative -Blood culture sent -CT chest/abdomen/pelvis with contrast ordered due to sepsis of unknown origin, read is pending -Patient given 3 L of IV fluids, blood pressure is improving -Started on Zosyn, will continue broad-spectrum antibiotics with vancomycin in addition due to unclear source of sepsis and narrow pending culture results - Of note did add stool studies as patient reports he has had diarrhea over the past month # Hypokalemia -Patient's potassium 2.5 -Replaced -Will repeat to verify improvement #Hx COPD -Continue home inhalers -Incentive spirometer # Left toe discoloration -Patient hit his left fifth toe several days ago and is somewhat purple, denies any drainage, does have some neuropathy but reports it is not overtly painful. -X-ray of foot unremarkable -Will consult wound care -Low threshold to consult podiatry if needed # Lung cancer -Presently undergoing radiation for his left lung -Does have previous right lobectomy - Follows with Dr. Valdemar Duncan on an outpatient basis #Chronic BPH with obstruction -Continue home medications - has very distended bladder on CT scan, bladder was also significantly distended on CT from several months ago, will order postvoid and may need Hollis if he is indeed retaining # Acute on chronic anemia -Hemoglobin 7.2, previously 11.9 2 months ago -No overt bleeding appreciated -Will obtain iron panel and ferritin -B12 and folate -Will check reticulocyte panel # History of CAD with CABG in 2016 -Patient on aspirin, statin, beta-yajaira, unless overt bleeding/discovery the patient is bleeding or further decreases in hemoglobin will continue aspirin #Type 2 diabetes mellitus -Glucose checks and sliding scale insulin -Will continue long-acting insulin but a slightly lower dose to verify no hypoglycemia, uptitrate as tolerated #GERD -Continue PPI # Anxiety -Continue home medications #DVT ppx: SCDs given low hemoglobin Serina Juan MD Sepsis Attestation Sepsis Alert: Yes Sepsis Attestation: Agree w/Sepsis Date exam was performed: 09/04/24 Time exam was performed: 14:20 Possible Source of Sepsis: Unknown Sepsis Organ Dysfunction Criteria Present: SBP < 90 mmHg or MAP < 65 mmHg and Lactic Acid > 2 mmol/L Supportive Findings: Febrile, hypotensive, tachycardic, elevated white blood cell count, elevated lactic acid Fluid Resuscitation Fluid resuscitation indicated?: Yes Fluid Resuscitation ordered: 30 ml/kg fluid bolus ordered Charges/Coding Visit Charges Inpatient E&M: 20206 Init Hosp L2 09/04/24 8801 <Electronically signed by Serina Juan MD> Cosigner Signature (if applicable): CC: Dr. Angelica Saleh MD; Dr. Serina Juan MD~ Signed [facility] Work Phone: Hospital course Narrative No data available for this section [facility] Discharge instructions No data available for this section [facility] Discharge instructions Additional Instructions No specific cause for your abdominal pain. Follow-up with your primary care physician to be referred to pain management for further evaluation and possible treatment.[facility] Work Phone: Hospital Discharge instructionsAdditional Instructions Your potassium is low I wrote you to be taking Cater twice a day for the next 10 days and have your potassium rechecked. Plenty of fluids and rest Follow-up with your doctor to ensure you are improving.[facility] Work Phone: Progress note No data available for this section [facility] Reason for referral (narrative)No reason for referral information availableWToledo [facility] Work Phone: Summary Purpose Family History No Family History Records Found Relationship Condition Age at Onset Recorded Date/T sobeida mother Malignant neoplasm Unknown Cardiac disease Unknown father Malignant neoplasm Unknown sister Malignant neoplasm Unknown Relationship Condition Age at Onset Recorded Date/T sobeida mother Malignant neoplasm Unknown Cardiac disease Unknown father Malignant neoplasm Unknown sister Malignant neoplasm Unknown sister Malignant neoplasm of colon Unknown Advance Directives No Advanced Directives Records Found Advance Directive Response Recorded Date/ Time Living Will No January 08 9:45am Power of Pre Sales Network Engineer No January 08, 2023 9:45am Advance Directive Response Recorded Date/ Time Living Will No January 08 8:45am Power of Pre Sales Network Engineer No January 08, 2023 8:45am Advance Directive Response Recorded Date/ Time Living Will No May 09 8:38am Power of Pre Sales Network Engineer No May 09, 2024 8:38am Advance Directive Response Recorded Date/ Time Living Will No May 09 8:38am Power of Pre Sales Network Engineer No May 09, 2024 8:38am Living Will No May 23, 2024 9:55am Power of Pre Sales Network Engineer No May 23 9:55am Advance Directive Response Recorded Date/ Time Living Will No May 09 8:38am Do you have a Healthcare Power of Pre Sales Network Engineer? No May 09, 2024 8:38am Living Will No May 23, 2024 9:55am Do you have a Healthcare Power of Pre Sales Network Engineer? No May 23, 2024 9:55am Living Will No June 09, 2024 2:10pm Do you have a Healthcare Power of Pre Sales Network Engineer? No June 09, 2024 2:10pm Advance Directive Response Recorded Date/ Time Living Will No May 09, 025 8:38am Do you have a Healthcare Power of Pre Sales Network Engineer? No May 09, 2024 8:38am Living Will No May 23, 2024 9:55am Do you have a Healthcare Power of Pre Sales Network Engineer? No May 23, 2024 9:55am Do you have a Healthcare Power of Pre Sales Network Engineer? No September 04, 2024 10:39am Living Will No June 09, 2024 2:10pm Do you have a Healthcare Power of Pre Sales Network Engineer? No June 09, 2024 2:10pm Advance Directive Response Recorded Date/ Time Living Will No May 23, 2024 9:55am Do you have a Healthcare Power of Pre Sales Network Engineer? No May 23, 2024 9:55am Do you have a Healthcare Power of Pre Sales Network Engineer? No September 04, 2024 4:22pm Living Will No June 09, 2024 2:10pm Do you have a Healthcare Power of Pre Sales Network Engineer? No June 09, 2024 2:10pm Advance Directive Response Recorded Date/ Time Do you have a Healthcare Power of Pre Sales Network Engineer? No September 04, 2024 4:22pm Do you have a Healthcare Power of Pre Sales Network Engineer? No October 05, 2024 4:38pm Do you have a Healthcare Power of Pre Sales Network Engineer? No October 19, 2024 3:13pm Do you have a Healthcare Power of Pre Sales Network Engineer? 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 Chief Complaint Admit Date Est Care (Self) March 22, 2024 8: 43am CAD/ASHD April 06, 2024 6 :50am back May 09, 2024 7:17am ED follow up May 10, 2024 7:41am LUQ PAIN May 12, 2024 7:44am AAA, L CHRISS aneurysm May 18, 2024 2:53 pm Reason for Visit Admit Date CAD (coronary artery disease) March 8:43am High cholesterol March 22, 2024 8: 43am Hypertension March 22, 2024 8: 43am Back pain May 10, 2024 7:41am Left-sided chest pain May 10 7:41am LUQ pain May 10, 2024 7:41am Infrarenal abdominal aortic aneurysm (AA A) without rupture May 18, 2024 2:53pm Reason for Visit Admit Date CAD (coronary artery disease) March 8:43am High cholesterol March 22, 2024 8: 43am Hypertension March 22, 2024 8: 43am Back pain May 10, 2024 7:41am Left-sided chest pain May 10 7:41am LUQ pain May 10, 2024 7:41am Infrarenal abdominal aortic aneurysm (AA A) without rupture May 18, 2024 2:53pm LUQ pain May 31, 2024 10: 55am Chief Complaint Admit Date Est Care (Self) March 22, 2024 8: 43am CAD/ASHD April 06, 2024 6 :50am back May 09, 2024 7:17am ED follow up May 10, 2024 7:41am LUQ PAIN May 12, 2024 7:44am AAA, L CHRISS aneurysm May 18, 2024 2:53 pm ABD PAIN June 09, 2024 12: 19pm Chief Complaint Admit Date Est Care (Self) March 22, 2024 8: 43am CAD/ASHD April 06, 2024 6 :50am back May 09, 2024 7:17am ED follow up May 10, 2024 7:41am LUQ PAIN May 12, 2024 7:44am AAA, L CHRISS aneurysm May 18, 2024 2:53 pm ABD PAIN June 09, 2024 12: 19pm EST NEW PT - [facility] SENT June 14, 2024 1 :35pm Reason for Visit Admit Date CAD (coronary artery disease) March 8:43am High cholesterol March 22, 2024 8: 43am Hypertension March 22, 2024 8: 43am Back pain May 10, 2024 7:41am Left-sided chest pain May 10 7:41am LUQ pain May 10, 2024 7:41am Infrarenal abdominal aortic aneurysm (AA A) without rupture May 18, 2024 2:53pm LUQ pain May 31, 2024 10: 55am CAD (coronary artery disease) June 14, 2024 1:35pm Cancer June 14, 2024 1:35 pm Diabetes June 14, 2024 1:35 pm Left adrenal mass June 14, 2024 1:35 pm LUQ pain June 14, 2024 1:35 pm COPD (chronic obstructive pulmonary dise ase) June 14, 2024 1:35pm Hypertension June 14, 2024 1:35 pm Infrarenal abdominal aortic aneurysm (AA A) without rupture June 14, 2024 1:35pm BPH (benign prostatic hyperplasia) June 14, 2024 1:35pm Establishing care with new doctorlaura for June 14, 2024 1:35pm Anxiety and depression June 14, 2024 1 :35pm Chief Complaint Admit Date Est Care (Self) March 22, 2024 8: 43am CAD/ASHD April 06, 2024 6 :50am back May 09, 2024 7:17am ED follow up May 10, 2024 7:41am LUQ PAIN May 12, 2024 7:44am AAA, L CHRISS aneurysm May 18, 2024 2:53 pm Abdominal pain May 31, 2024 7:0 0am ABD PAIN June 09, 2024 12: 19pm EST NEW PT - [facility]WK SENT June 14, 2024 1 :35pm 3 M FU June 26, 2024 11: 22am Reason for Visit Admit Date CAD (coronary artery disease) March 8:43am High cholesterol March 22, 2024 8: 43am Hypertension March 22, 2024 8: 43am Back pain May 10, 2024 7:41am Left-sided chest pain May 10 7:41am LUQ pain May 10, 2024 7:41am Infrarenal abdominal aortic aneurysm (AA A) without rupture May 18, 2024 2:53pm LUQ pain May 31, 2024 10: 55am CAD (coronary artery disease) June 14, 2024 1:35pm Cancer June 14, 2024 1:35 pm Diabetes June 14, 2024 1:35 pm Left adrenal mass June 14, 2024 1:35 pm LUQ pain June 14, 2024 1:35 pm COPD (chronic obstructive pulmonary dise ase) June 14, 2024 1:35pm Hypertension June 14, 2024 1:35 pm Infrarenal abdominal aortic aneurysm (AA A) without rupture June 14, 2024 1:35pm BPH (benign prostatic hyperplasia) June 14, 2024 1:35pm Establishing care with new doctorlaura for June 14, 2024 1:35pm Anxiety and depression June 14, 2024 1 :35pm RUQ pain June 26, 2024 11: 22am Chief Complaint Admit Date CAD/ASHD April 06, 2024 6 :50am back May 09, 2024 7:17am ED follow up May 10, 2024 7:41am LUQ PAIN May 12, 2024 7:44am AAA, L CHRISS aneurysm May 18, 2024 2:53 pm Abdominal pain May 31, 2024 7:0 0am ABD PAIN June 09, 2024 12: 19pm EST NEW PT - [facility] SENT June 14, 2024 1 :35pm 3 M FU June 26, 2024 11: 22am Pain July 07, 2024 9:2 8am fu July 24, 2024 9:58a m Reason for Visit Admit Date Back pain May 10, 2024 7:41am Left-sided chest pain May 10 7:41am LUQ pain May 10, 2024 7:41am Infrarenal abdominal aortic aneurysm (AA A) without rupture May 18, 2024 2:53pm LUQ pain May 31, 2024 10: 55am CAD (coronary artery disease) June 14, 2024 1:35pm Cancer June 14, 2024 1:35 pm Diabetes June 14, 2024 1:35 pm Left adrenal mass June 14, 2024 1:35 pm LUQ pain June 14, 2024 1:35 pm COPD (chronic obstructive pulmonary dise ase) June 14, 2024 1:35pm Hypertension June 14, 2024 1:35 pm Infrarenal abdominal aortic aneurysm (AA A) without rupture June 14, 2024 1:35pm BPH (benign prostatic hyperplasia) June 14, 2024 1:35pm Establishing care with new doctorlaura for June 14, 2024 1:35pm Anxiety and depression June 14, 2024 1 :35pm RUQ pain June 26, 2024 11: 22am RUQ pain July 24, 2024 9:58a m Weight loss July 24, 2024 9:58a m Chief Complaint Admit Date back May 09, 2024 7:17am ED follow up May 10, 2024 7:41am LUQ PAIN May 12, 2024 7:44am AAA, L CHRISS aneurysm May 18, 2024 2:53 pm Abdominal pain May 31, 2024 7:0 0am ABD PAIN June 09, 2024 12: 19pm EST NEW PT - [facility] SENT June 14, 2024 1 :35pm 3 M FU June 26, 2024 11: 22am Pain July 07, 2024 9:2 8am fu July 24, 2024 9:58a m THORACIC SPONDYLOSIS. RX HERE August 04, 2024 8:45am RUQ PAIN August 08, 2024 7:46a m Chief Complaint Admit Date back May 09, 2024 7:17am ED follow up May 10, 2024 7:41am LUQ PAIN May 12, 2024 7:44am AAA, L CHRISS aneurysm May 18, 2024 2:53 pm Abdominal pain May 31, 2024 7:0 0am ABD PAIN June 09, 2024 12: 19pm EST NEW PT - [facility] SENT June 14, 2024 1 :35pm 3 M FU June 26, 2024 11: 22am Pain July 07, 2024 9:2 8am fu July 24, 2024 9:58a m THORACIC SPONDYLOSIS. RX HERE August 04, 2024 8:45am RUQ PAIN August 08, 2024 7:46a m CONCERN FOR SEPSIS September 04, 2024 2:44 pm Reason for Visit Admit Date Back pain May 10, 2024 7:41am Left-sided chest pain May 10 7:41am LUQ pain May 10, 2024 7:41am Infrarenal abdominal aortic aneurysm (AA A) without rupture May 18, 2024 2:53pm LUQ pain May 31, 2024 10: 55am CAD (coronary artery disease) June 14, 2024 1:35pm Cancer June 14, 2024 1:35 pm Diabetes June 14, 2024 1:35 pm Left adrenal mass June 14, 2024 1:35 pm LUQ pain June 14, 2024 1:35 pm COPD (chronic obstructive pulmonary dise ase) June 14, 2024 1:35pm Hypertension June 14, 2024 1:35 pm Infrarenal abdominal aortic aneurysm (AA A) without rupture June 14, 2024 1:35pm BPH (benign prostatic hyperplasia) June 14, 2024 1:35pm Establishing care with new doctor, laura saleh for June 14, 2024 1:35pm Anxiety and depression June 14, 2024 1 :35pm RUQ pain June 26, 2024 11: 22am RUQ pain July 24, 2024 9:58a m Weight loss July 24, 2024 9:58a m Sepsis September 04, 2024 2:44 pm Chief Complaint Admit Date AAA, L CHRISS aneurysm May 18, 2024 2:53 pm Abdominal pain May 31, 2024 7:0 0am ABD PAIN June 09, 2024 12: 19pm EST NEW PT - [facility] SENT June 14, 2024 1 :35pm 3 M FU June 26, 2024 11: 22am Pain July 07, 2024 9:2 8am fu July 24, 2024 9:58a m THORACIC SPONDYLOSIS. RX HERE August 04, 2024 8:45am RUQ PAIN August 08, 2024 7:46a m CONCERN FOR SEPSIS September 04, 2024 2:44 pm CONCERN FOR SEPSIS September 05, 2024 6:48 am CONCERN FOR SEPSIS September 05, 2024 1:53 pm CONCERN FOR SEPSIS September 05, 2024 5:59 pm AM EKG September 06, 2024 5:44 am CONCERN FOR SEPSIS September 06, 2024 9:37 am CONCERN FOR SEPSIS September 06, 2024 12:0 7pm CONCERN FOR SEPSIS September 06, 2024 12:1 3pm CONCERN FOR SEPSIS September 07, 2024 11:4 6am CONCERN FOR SEPSIS September 07, 2024 4:13 pm CONCERN FOR SEPSIS September 08, 2024 5:32 pm CONCERN FOR SEPSIS September 09, 2024 1:58 pm CONCERN FOR SEPSIS September 10, 2024 12:5 9pm CONCERN FOR SEPSIS September 11, 2024 9:56 am CONCERN FOR SEPSIS September 11, 2024 5:33 pm Reason for Visit Admit Date Infrarenal abdominal aortic aneurysm (AA A) without rupture May 18, 2024 2:53pm LUQ pain May 31, 2024 10: 55am CAD (coronary artery disease) June 14, 2024 1:35pm Cancer June 14, 2024 1:35 pm Diabetes June 14, 2024 1:35 pm Left adrenal mass June 14, 2024 1:35 pm LUQ pain June 14, 2024 1:35 pm COPD (chronic obstructive pulmonary dise ase) June 14, 2024 1:35pm Hypertension June 14, 2024 1:35 pm Infrarenal abdominal aortic aneurysm (AA A) without rupture June 14, 2024 1:35pm BPH (benign prostatic hyperplasia) June 14, 2024 1:35pm Establishing care with new doctor, laura saleh for June 14, 2024 1:35pm Anxiety and depression June 14, 2024 1 :35pm RUQ pain June 26, 2024 11: 22am RUQ pain July 24, 2024 9:58a m Weight loss July 24, 2024 9:58a m Acute hypokalemia September 04, 2024 2:44 pm Acute hyponatremia September 04, 2024 2:44 pm Anemia September 04, 2024 2:44 pm MSSA bacteremia September 04, 2024 2:44 pm Pneumonia September 04, 2024 2:44 pm Sepsis September 04, 2024 2:44 pm Septic shock September 04, 2024 2:44 pm Weakness September 04, 2024 2:44 pm COPD (chronic obstructive pulmonary dise ase) September 04, 2024 2:44pm Chief Complaint Admit Date 3 M FU June 26, 2024 11: 22am Pain July 07, 2024 9:2 8am fu July 24, 2024 9:58a m THORACIC SPONDYLOSIS. RX HERE August 04, 2024 8:45am RUQ PAIN August 08, 2024 7:46a m CONCERN FOR SEPSIS September 04, 2024 2:44 pm CONCERN FOR SEPSIS September 05, 2024 6:48 am CONCERN FOR SEPSIS September 05, 2024 1:53 pm CONCERN FOR SEPSIS September 05, 2024 5:59 pm AM EKG September 06, 2024 5:44 am CONCERN FOR SEPSIS September 06, 2024 9:37 am CONCERN FOR SEPSIS September 06, 2024 12:0 7pm CONCERN FOR SEPSIS September 06, 2024 12:1 3pm CONCERN FOR SEPSIS September 07, 2024 11:4 6am CONCERN FOR SEPSIS September 07, 2024 4:13 pm CONCERN FOR SEPSIS September 08, 2024 5:32 pm CONCERN FOR SEPSIS September 09, 2024 1:58 pm CONCERN FOR SEPSIS September 10, 2024 12:5 9pm CONCERN FOR SEPSIS September 11, 2024 9:56 am CONCERN FOR SEPSIS September 11, 2024 5:33 pm HYPONATREMIA, DEHYDRATION, DRY GANGRENE September 19, 2024 5:12pm HYPONATREMIA, DEHYDRATION, DRY GANGRENE September 20, 2024 8:12am HYPONATREMIA, DEHYDRATION, DRY GANGRENE September 21, 2024 8:28am HYPONATREMIA, DEHYDRATION, DRY GANGRENE September 21, 2024 8:36am HYPONATREMIA, DEHYDRATION, DRY GANGRENE September 22, 2024 8:04am HYPONATREMIA, DEHYDRATION, DRY GANGRENE September 23, 2024 7:51am HYPONATREMIA, DEHYDRATION, DRY GANGRENE September 24, 2024 7:56am HYPONATREMIA, DEHYDRATION, DRY GANGRENE September 25, 2024 8:12am [facility] FU October 05, 2024 9:54 am CHEST PAIN October 05, 2024 4:02 pm DIZZY October 19, 2024 3:0 8pm Reason for Visit Admit Date RUQ pain June 26, 2024 11: 22am RUQ pain July 24, 2024 9:58a m Weight loss July 24, 2024 9:58a m Acute hypokalemia September 04, 2024 2:44 pm Acute hyponatremia September 04, 2024 2:44 pm Anemia September 04, 2024 2:44 pm Sepsis September 04, 2024 2:44 pm Septic shock September 04, 2024 2:44 pm Weakness September 04, 2024 2:44 pm COPD (chronic obstructive pulmonary dise ase) September 04, 2024 2:44pm MSSA bacteremia September 04, 2024 2:44 pm Pneumonia September 04, 2024 2:44 pm Anemia September 19, 2024 5:12p m Atherosclerosis of left lower extremity with gangrene September 19, 2024 5:12pm Gangrene of left foot September 19, 2024 5:1 2pm Elevated troponin level not due to acute coronary syndrome September 19, 2024 5:12pm Hypotension September 19, 2024 5:12p m Pneumonia September 19, 2024 5:12p m PAD (peripheral artery disease) September 5:12pm PVD (peripheral vascular disease) September 192024 5:12pm Anemia Lesvia 24th, 2025 9:54 am Gangrene of left foot October 05, 2024 9: 54am Hospital discharge follow-up October 05, 2024 9:54am Reason for Referral Specialty Diagnoses / Procedures Referred By Contac t Referred To Contact CT IMAGING Diagnoses Malignant neoplasm of unspecified part of unspecified bronchus or lung (HCC) Procedures CT CHEST WO IVCON DIAGNOSTIC COMPUTED TOMOGRAPHY THORAX W/O CNTRST Va Dunaway MD [address] [place] [address] Ct Imaging [place] [address] Referral ID Status Reason Start Date Expiration Date Visits Requested Visits Authorized [id number] Pending Review Auto-Generat ed Referral 08/23/2023 07/22/2024 1 1 Specialty Diagnoses / Procedures Referred By Contac t Referred To Contact MR IMAGING Diagnoses Squamous cell carcinoma of left lung (HCC) Procedures MRI BRAIN WO/W IVCON MRI BRAIN BRAIN STEM W/O W/CONTRAST MATERIAL Tay Montiel MD [address] [place] [id number] Mr Imaging [place] [address] Referral ID Status Reason Start Date Expiration Date V isits Requested Visits Authorized [id number] Closed Auto-Generate d Referral 05/07/2023 06/06/2023 1 1 Specialty Diagnoses / Procedures Referred By Contac t Referred To Contact Diagnoses Squamous cell carcinoma of left lung (HCC) Procedures CT SIM PLANNING RADIATION ONCOLOGY THER RAD SIMULAJ-AIDED FIELD SETTING COMPLEX Va Dunaway MD [address] [place] [address] Referral ID Status Reason Start Date Expiration Date Visits Requested Visits Authorized [id number] Pending Review PCP Requested Referral 04/30/2023 07/27/2023 1 1 Additional Source Comments (unrecognized sect ion and content) No Status Records FoundNo Status Records FoundNo Status Records FoundNo Status Records FoundNo Status Records Found INFORMATION SOURCE (unrecogn ized section and content) DATE CREATED AUTHOR 04/12/2019 [facility] DATE CREATED AUTHOR AUTHOR'S ORGANIZ ATION 06/01/2023 [facility] ([place]) DATE CREATED AUTHOR AUTHOR'S ORGANIZ ATION 09/14/2024 [facility] DATE CREATED AUTHOR AUTHOR'S ORGANIZ ATION 10/24/2024 [facility] DATE CREATED AUTHOR AUTHOR'S ORGANIZ ATION 10/26/2024 [facility] Care Team (unrecognized sect ion and content) Personnel Name: ROMAIN ROACH DO Address: Address: [address] [place] [phone] [place] Care Team Personnel Name: ROMAIN ROACH DO Position: P4 Physician - Primary Care Member Role: Primary Care Physician Address: Address: [address] [place] [phone]- [place] Care Team Related Persons Name: CAT MEAD Address: Home [address] [place] [phone] [place] Name: CAT MEAD Address: Home [address] [place], [place] [phone] [place] Care Team Personnel Name: ROMAIN ROACH DO Position: P4 Physician - Primary Care Member Role: Primary Care Physician Address: Address: [address] [place] [address]- [place] Care Team Related Persons Name: CAT MEAD Address: Home [address] [place], [place] [id number] [place] Name: CAT MEAD Address: [address] [place], [place] [id number] [place] Care Team Personnel Name: ROMAIN ROACH DO Position: P4 Physician - Primary Care Member Role: Primary Care Physician Address: Address: [address] [place] [address]- [place] Care Team Related Persons Name: CAT MEAD Address: Home [address] [place], [place] [id number] [place] Name: CAT MEAD Address: Home [address] [place], [place] [phone] [place] Care Team Personnel Name: ROMAIN ROACH DO Position: P4 Physician - Primary Care Member Role: Primary Care Physician Address: Address: [address] [place] [address]- Care Team Related Persons Name: CAT MEAD Address: Home [address] [place], [place] [phone] [place] Name: CAT MEAD Address: Home [address] [place] [phone] Patient Care team informatio n (unrecognized section and content) Team Status: Active Member Role Status Dates Dr. Romain Roach DO Family Provider Active Dr. Romain Roach DO Primary Care Provider Active Team Status: Inactive Member Role Status Dates Dr. Romain Roach DO Primary Care Provider, Referri ng Provider Active Dr. Romain Hurd MD Attending Provider Active Team Status: Inactive Member Role Status Dates Dr. Romain Roach DO Primary Care Provider Active Dr. Romain Hurd MD Attending Provider, Referrin g Provider Active Area Captain Relationship Specialty Start Date End Date Romain Hurd V [address] [place] [phone] Internal Medicine 02/26/23 Area Captain Relationship Specialty Start Date End Date Romain Roach DO [address] [place] [address] PCP - General Family Medicine 03/29/23 Romain Hurd V [address] [place] [address] Internal Medicine 02/26/23 Va Dunaway MD, MD [address] [place], [place] [address] Physician Radiation Oncology 04/08/23 Area Captain Relationship Specialty Start Date End Date Romain Roach DO [address] [place] [address] PCP - General Family Medicine 03/29/23 Romain Hurd V [address] [place] [address] Internal Medicine 02/26/23 Va Dunaway MD [address] [place] [address] Physician Radiation Oncology 04/08/23 Area Captain Relationship Specialty Start Date End Date Romani Roach DO [address] [place] [address] PCP - General Family Medicine 03/29/23 Romain Hurd V [address] [place] [phone] Internal Medicine 02/26/23 Va Dunaway MD [address] [place] [address] Physician Radiation Oncology 04/08/23 Area Captain Relationship Specialty Start Date End Date Romain Roach DO [address] [place] [address] PCP - General Family Medicine 03/29/23 Romain Hurd V [address] [place] [address] Internal Medicine 02/26/23 Va Dunaway MD [address] [place] [address] Physician Radiation Oncology 04/08/23 Valdemar Duncan MD [address] [place] [address] Hematology/Oncology 04/22/23 Area Captain Relationship Specialty Start Date End Date Romain Roach DO [address] [place] [address] PCP - General Family Medicine 03/29/23 Romain Hurd V [address] [place] [address] Internal Medicine 02/26/23 Va Dunaway MD [address] [place] [address] Physician Radiation Oncology 04/08/23 Valdemar Duncan MD [address] [place] [address] Hematology/Oncology 04/22/23 Area Captain Relationship Specialty Start Date End Date Romain Roach DO [address] [place] [address] PCP - General Family Medicine 03/29/23 Romain Hurd V [address] [place] [address] Internal Medicine 02/26/23 Va Dunaway MD [address] [place] [address] Physician Radiation Oncology 04/08/23 Valdemar Duncan MD [address] [place] [address] Hematology/Oncology 04/22/23 Area Captain Relationship Specialty Start Date End Date Romain Roach DO [address] [place] [address] PCP - General Family Medicine 03/29/23 Romain Hurd V [address] [place] [address] Internal Medicine 02/26/23 Va Dunaway MD [address] [place] [address] Physician Radiation Oncology 04/08/23 Valdemar Duncan MD [address] [place] [address] Hematology/Oncology 04/22/23 Area Captain Relationship Specialty Start Date End Date Romain Roach DO [address] [place] [address] PCP - General Family Medicine 03/29/23 Romain Hurd V [address] [place] [address] Internal Medicine 02/26/23 Va Dunaway MD [address] [place] [address] Physician Radiation Oncology 04/08/23 Valdemar Duncan MD [address] [place] [phone] Hematology/Oncology 04/22/23 Area Captain Relationship Specialty Start Date End Date Romain Roach DO [address] [place] [address] PCP - General Family Medicine 03/29/23 Romain Hurd V [address] [place] [address] Internal Medicine 02/26/23 Va Dunaway MD [address] [place] [address] Physician Radiation Oncology 04/08/23 Valdemar Duncan MD [address] [place] [address] Hematology/Oncology 04/22/23 Area Captain Relationship Specialty Start Date End Date Romain Roach DO [address] [place] [address] PCP - General Family Medicine 03/29/23 Romain Hurd V [address] [place] [address] Internal Medicine 02/26/23 Va Dunaway MD [address] [place] [address] Physician Radiation Oncology 04/08/23 Valdemar Duncan MD [address] [place] [address] Hematology/Oncology 04/22/23 Area Captain Relationship Specialty Start Date End Date Romain Roach DO [address] [place] [address] PCP - General Family Medicine 03/29/23 Romain Hurd V [address] [place] [address] Internal Medicine 02/26/23 Va Dunaway MD [address] [place] [address] Physician Radiation Oncology 04/08/23 Valdemar Duncan MD [address] [place] [address] Hematology/Oncology 04/22/23 Area Captain Relationship Specialty Start Date End Date Romain Roach DO [address] [place] [address] PCP - General Family Medicine 03/29/23 Romain Hurd V [address] [place] [address] Internal Medicine 02/26/23 Va Dunaway MD [address] [place] [address] Physician Radiation Oncology 04/08/23 Valdemar Duncan MD [address] [place] [address] Hematology/Oncology 04/22/23 Area Captain Relationship Specialty Start Date End Date Romain Roach DO [address] [place] [address] PCP - General Family Medicine 03/29/23 Romain Hurd V [address] [place] [address] Internal Medicine 02/26/23 Va Dunaway MD [address] [place] [address] Physician Radiation Oncology 04/08/23 Valdemar Duncan MD [address] [place] [address] Hematology/Oncology 04/22/23 Area Captain Relationship Specialty Start Date End Date Romain Roach DO [address] [place] [address] PCP - General Family Medicine 03/29/23 Romain Hurd V [address] [place] [address] Internal Medicine 02/26/23 Va Dunaway MD [address] [place] [address] Physician Radiation Oncology 04/08/23 Valdemar Duncan MD [address] [place] [address] Hematology/Oncology 04/22/23 Area Captain Relationship Specialty Start Date End Date Romain Roach DO 49 [facility] [address] [place] [address] PCP - General Family Medicine 03/29/23 Romain Hurd V [address] [address] Internal Medicine 02/26/23 Va Dunaway MD [address] [place], [place] [address] Physician Radiation Oncology 04/08/23 Valdemar Duncan MD [address] [place] [address] Hematology/Oncology 04/22/23 Area Captain Relationship Specialty Start Date End Date Romain Roach DO 49 [facility] [address] [place] [address], [place] [address] PCP - General Family Medicine 03/29/23 Romain Hurd V [address] [place] [address] Internal Medicine 02/26/23 Va Dunaway MD [address] [place] [address] Physician Radiation Oncology 04/08/23 Valdemar Duncan MD [address] [place] [address] Hematology/Oncology 04/22/23 Area Captain Relationship Specialty Start Date End Date Romain Roach DO 49 [facility] [address] [place], [place] [address] PCP - General Family Medicine 03/29/23 Romain Hurd V [address] [place] [phone] Internal Medicine 02/26/23 Va Dunaway MD [address] [place] [address] Physician Radiation Oncology 04/08/23 Valdemar Duncan MD [address] [place], [place] [address] Hematology/Oncology 04/22/23 Lyubov Castaneda X RAY SERVICE TECHNICIAN [facility] [place] [address] Family Medicine 12/01/23 Latosha Renee MD [address] [place] [address] [phone] Endocrinology 12/01/23 Area Captain Relationship Specialty Start Date End Date Romain Roach DO [address] [place] [address] PCP - General Family Medicine 03/29/23 Romain Hurd V [address] [place] [address] Internal Medicine 02/26/23 Va Dunaway MD [address] [place] [address] Physician Radiation Oncology 04/08/23 Valdemar Duncan MD [address] [place] [address] Hematology/Oncology 04/22/23 Lyubov Castaneda CNP [address] [place] [address] Family Medicine 12/01/23 Latosha Renee MD [address] [place] [address] Endocrinology 12/01/23 Area Captain Relationship Specialty Start Date End Date Romain Roach DO [address] [address] PCP - General Family Medicine 03/29/23 Romain Hurd V [address] [place] [address] Internal Medicine 02/26/23 Va Dunaway MD [address] [place] [address] Physician Radiation Oncology 04/08/23 Valdemar Duncan MD [address] [place] [address] Hematology/Oncology 04/22/23 Lyubov Castaneda CNP [address] [place] [address] Family Medicine 12/01/23 Latosha Renee MD [address] [place] [address] Endocrinology 12/01/23 Area Captain Relationship Specialty Start Date End Date Romain Roach DO [address] [address] PCP - General Family Medicine 03/29/23 Romain Hurd V [address] [place] [address] Internal Medicine 02/26/23 Va Dunaway MD [address] [place], [place] 6[address] Physician Radiation Oncology 04/08/23 Valdemar Duncan MD [address] [place], [place] [phone] Hematology/Oncology 04/22/23 Lyubov Castaneda CNP [address] [place] [address] Family Medicine 12/01/23 Latosha Renee MD [address] [address] Endocrinology 12/01/23 Area Captain Relationship Specialty Start Date End Date Romain Roach DO [address] 333866 PCP - General Family Medicine 03/29/23 Romain Hurd V [address] [place] [address] Internal Medicine 02/26/23 Va Dunaway MD [address] [place] [address] Physician Radiation Oncology 04/08/23 Valdemar Duncan MD [address] [place] [address] Hematology/Oncology 04/22/23 Lyubov Castaneda CNP [facility] [place] [address] Family Medicine 12/01/23 Latosha Renee MD [address] [place] [address] Endocrinology 12/01/23 Area Captain Relationship Specialty Start Date End Date Romain Roach DO [address] [place] [address] PCP - General Family Medicine 03/29/23 Romain Hurd V [address] [place] [address] Internal Medicine 02/26/23 Va Dunaway MD [address] [place] [address] Physician Radiation Oncology 04/08/23 Valdemar Duncan MD [address] [place] [address] Hematology/Oncology 04/22/23 Lyubov Castaneda CNP [address] [place] [address] Family Medicine 12/01/23 Latosha Renee MD [address] [place] [address] Endocrinology 12/01/23 Area Captain Relationship Specialty Start Date End Date Romain Hurd V [address] [place] [address] Internal Medicine 02/26/23 Va Dunaway MD [address] [place] [address] Physician Radiation Oncology 04/08/23 Valdemar Duncan MD [address] [place] [address] Hematology/Oncology 04/22/23 Lyubov Castaneda CNP [address] [place] [address] Family Medicine 12/01/23 Latosha Renee MD [address] [place] [address] Endocrinology 12/01/23 Area Captain Relationship Specialty Start Date End Date Romain Hurd V [address] [place] [address] Internal Medicine 02/26/23 Va Dunaway MD [address] [place] [address] Physician Radiation Oncology 04/08/23 Valdemar Duncan MD [address] [place] [address] Hematology/Oncology 04/22/23 Lyubov Castaneda X RAY SERVICE TECHNICIAN [address] [place] [address] Family Medicine 12/01/23 Latosha Renee MD [address] [place] [address] Endocrinology 12/01/23 Area Captain Relationship Specialty Start Date End Date Romain Hurd V [address] [place] [address] Internal Medicine 02/26/23 Va Dunaway MD [address] [place] [address] Physician Radiation Oncology 04/08/23 Valdemar Duncan MD [address] [place] [address] Hematology/Oncology 04/22/23 Lyubov Castaneda CNP [address] [place] [address] Family Medicine 12/01/23 Latosha Renee MD [address] [place] [address] Endocrinology 12/01/23 Area Captain Relationship Specialty Start Date End Date Romain Hurd V [address] [place] [phone] Internal Medicine 02/26/23 Va Dunaway MD [address] [place] [address] Physician Radiation Oncology 04/08/23 Valdemar Duncan MD [address] [place] [address] Hematology/Oncology 04/22/23 Lyubov Castaneda CNP [address] [place] [address] Family Medicine 12/01/23 Latosha Renee MD [address] [place] [address] Endocrinology 12/01/23 Area Captain Relationship Specialty Start Date End Date Romain Hurd V [address] [place] [address] Internal Medicine 02/26/23 Va Dunaway MD [address] [place] [address] Physician Radiation Oncology 04/08/23 Valdemar Duncan MD [address] [place] [address] Hematology/Oncology 04/22/23 Lyubov Castaneda CNP [address] [place] [address] Family Medicine 12/01/23 Latosha Renee MD [address] [place] [address] Endocrinology 12/01/23 Area Captain Relationship Specialty Start Date End Date Romain Hurd V [address] [place] [address] Internal Medicine 02/26/23 Va Dunaway MD [address] [place] [address] Physician Radiation Oncology 04/08/23 Valdemar Duncan MD [address] [place] [address] Hematology/Oncology 04/22/23 Lyubov Castaneda CNP [address] [place] [address] Family Medicine 12/01/23 Latosha Renee MD [address] [place] [address] Endocrinology 12/01/23 Team Status: Active Member Role Status Dates Dr. Angelica Saleh MD Primary Care Provider Active Team Status: Inactive Member Role Status Dates Dr. Romain Roach DO Referring Provider Active Start: March 22, 2024 End: March 22, 2024 Dr. Peter Mohan MD Attending Provider Active S tart: March 22, 2024 End: March 22, 2024 Dr. Angelica Saleh MD Primary Care Provider Active Start: March 22, 2024 End: March 22, 2024 Team Status: Inactive Member Role Status Dates Dr. Angelica Saleh MD Primary Care Provider Active Start: April 06, 2024 End: April 06, 2024 Dr. Peter Mohan MD Attending Provider Active S tart: April 06, 2024 End: April 06, 2024 Dr. Peter Mohan MD Referring Provider Active S tart: April 06, 2024 End: April 06, 2024 Team Status: Active Member Role Status Dates Dr. Angelica Saleh MD Primary Care Provider Active Start: April 06, 2024 Dr. Peter Mohan MD Attending Provider Active S tart: April 06, 2024 Team Status: Inactive Member Role Status Dates Dr. Angelica Saleh MD Primary Care Provider Active Start: May 09, 2024 End: May 09, 2024 Aden Stahl MD Attending Provider Active Star t: May 09, 2024 End: May 09, 2024 Aden Stahl MD Emergency Provider Active Star t: May 09, 2024 End: May 09, 2024 Team Status: Inactive Member Role Status Dates Dr. Angelica Saleh MD Primary Care Provider Active Start: May 10, 2024 End: May 10, 2024 Dr. Angelica Saleh MD Referring Provider Active Start: May 10, 2024 End: May 10, 2024 Jaleesa Galindo NP-C Attending Provider Active Start: May 10, 2024 End: May 10, 2024 Team Status: Inactive Member Role Status Dates Dr. Angelica Saleh MD Primary Care Provider Active Start: May 12, 2024 End: May 12, 2024 Jaleesa Galindo NP-C Attending Provider Active Start: May 12, 2024 End: May 12, 2024 Jaleesa Galindo NP-C Referring Provider Active Start: May 12, 2024 End: May 12, 2024 Team Status: Inactive Member Role Status Dates Dr. Angelica Saleh MD Primary Care Provider Active Start: May 18, 2024 End: May 18, 2024 Dr. Angelica Saleh MD Referring Provider Active Start: May 18, 2024 End: May 18, 2024 Dr. Naresh Cuellar MD Attending Provider Active S tart: May 18, 2024 End: May 18, 2024 Team Status: Inactive Member Role Status Dates Dr. Angelica Saleh MD Primary Care Provider Active Start: May 31, 2024 End: May 31, 2024 Dr. Angelica Saleh MD Referring Provider Active Start: May 31, 2024 End: May 31, 2024 Dr. Wild Gallagher DO Attending Provider Active Start: May 31, 2024 End: May 31, 2024 Team Status: Active Member Role Status Dates Dr. Angelica Saleh MD Primary Care Provider Active Start: May 31, 2024 Dr. Angelica Saleh MD Referring Provider Active Start: May 31, 2024 Dr. Wild Gallagher DO Attending Provider Active Start: May 31, 2024 Dr. Wild Gallagher DO Other Provider Active St art: May 31, 2024 Team Status: Active Member Role Status Dates Dr. Angelica Saleh MD Primary Care Provider Active Start: June 06, 2024 Dr. Latosha Renee MD Attending Provider Act enmanuel Start: June 06, 2024 Dr. Latosha Renee MD Referring Provider Act enmanuel Start: June 06, 2024 Team Status: Inactive Member Role Status Dates Dr. Angelica Saleh MD Primary Care Provider Active Start: June 09, 2024 End: June 09, 2024 Dr. Carroll Celeste MD Emergency Provider Active S tart: June 09, 2024 End: June 09, 2024 Team Status: Inactive Member Role Status Dates Dr. Angelica Saleh MD Primary Care Provider Active Start: June 06, 2024 End: June 06, 2024 Dr. Latosha Renee MD Attending Provider Act enmanuel Start: June 06, 2024 End: June 06, 2024 Dr. Latosha Renee MD Referring Provider Act enmanuel Start: June 06, 2024 End: June 06, 2024 Area Captain Relationship Specialty Start Date End Date Romain Hurd V [address] [place] [address] Internal Medicine 02/26/23 Va Dunaway MD [address] [place], [place] [address] Physician Radiation Oncology 04/08/23 Valdemar Duncan MD [address] [place] [address] Hematology/Oncology 04/22/23 Lyubov Castaneda CNP [address] [place] [address] Family Medicine 12/01/23 Latosha Renee MD [address] [address] Endocrinology 12/01/23 Team Status: Inactive Member Role Status Dates Dr. Angelica Saleh MD Primary Care Provider Active Start: June 09, 2024 End: June 09, 2024 Dr. Carroll Celeste MD Attending Provider Active S tart: June 09, 2024 End: June 09, 2024 Dr. Carroll Celeste MD Emergency Provider Active S tart: June 09, 2024 End: June 09, 2024 Team Status: Inactive Member Role Status Dates Dr. Romain Roach DO Referring Provider Active Start: June 14, 2024 End: June 14, 2024 Dr. Angelica Saleh MD Primary Care Provider Active Start: June 14, 2024 End: June 14, 2024 Dr. Angelica Saleh MD Attending Provider Active Start: June 14, 2024 End: June 14, 2024 Team Status: Inactive Member Role Status Dates Dr. Angelica Saleh MD Primary Care Provider Active Start: June 14, 2024 End: June 14, 2024 Dr. Angelica Saleh MD Attending Provider Active Start: June 14, 2024 End: June 14, 2024 Dr. Angelica Saleh MD Referring Provider Active Start: June 14, 2024 End: June 14, 2024 Team Status: Active Member Role Status Dates Dr. Angelica Saleh MD Primary Care Provider Active Start: June 15, 2024 Dr. Angelica Saleh MD Attending Provider Active Start: June 15, 2024 Team Status: Inactive Member Role Status Dates Dr. Angelica Saleh MD Primary Care Provider Active Start: June 15, 2024 End: June 15, 2024 Dr. Angelica Saleh MD Attending Provider Active Start: June 15, 2024 End: June 15, 2024 Team Status: Active Member Role Status Dates Dr. Angelica Saleh MD Primary Care Provider Active Start: May 31, 2024 Dr. Del King MD Attending Provider Active Start: May 31, 2024 Dr. Del King MD Referring Provider Active Start: May 31, 2024 Team Status: Inactive Member Role Status Dates Dr. Angelica Saleh MD Primary Care Provider Active Start: June 23, 2024 End: June 23, 2024 Dr. Latosha Renee MD Attending Provider Act enmanuel Start: June 23, 2024 End: June 23, 2024 Dr. Latosha Renee MD Referring Provider Act enmanuel Start: June 23, 2024 End: June 23, 2024 Team Status: Inactive Member Role Status Dates Dr. Angelica Saleh MD Primary Care Provider Active Start: June 26, 2024 End: June 26, 2024 Dr. Angelica Saleh MD Referring Provider Active Start: June 26, 2024 End: June 26, 2024 JACEY Haddad Attending Provider Active Start: June 26, 2024 End: June 26, 2024 Area Captain Relationship Specialty Start Date End Date Romain Hurd V [address] [place] [id number] Internal Medicine 02/26/23 Va Dunaway MD [address] [place], [place] [id number] Physician Radiation Oncology 04/08/23 Valdemar Duncan MD [address] [place], [place] [address] Hematology/Oncology 04/22/23 Lyubov Castaneda CNP [address] [place] [id number] Family Medicine 12/01/23 Latosha Renee MD [address] [facility] [address] [place] [id number] Endocrinology 12/01/23 Team Status: Inactive Member Role Status Dates Dr. Angelica Saleh MD Primary Care Provider Active Start: July 07, 2024 End: July 07, 2024 ROB HaddadC Attending Provider Active Start: July 07, 2024 End: July 07, 2024 JACEY Haddad Referring Provider Active Start: July 07, 2024 End: July 07, 2024 Team Status: Inactive Member Role Status Dates Dr. Angelica Saleh MD Primary Care Provider Active Start: July 20, 2024 End: July 20, 2024 Dr. Latosha Renee MD Attending Provider Act enmanuel Start: July 20, 2024 End: July 20, 2024 Dr. Latosha Renee MD Referring Provider Act enmanuel Start: July 20, 2024 End: July 20, 2024 Team Status: Inactive Member Role Status Dates Dr. Angelica Saleh MD Primary Care Provider Active Start: July 24, 2024 End: July 24, 2024 Dr. Angelica Saleh MD Referring Provider Active Start: July 24, 2024 End: July 24, 2024 JACEY Haddad Attending Provider Active Start: July 24, 2024 End: July 24, 2024 Team Status: Active Member Role Status Dates Dr. Angelica Saleh MD Primary Care Provider Active Start: August 04, 2024 Dr. Brad Hou MD Attending Provider Active Start: August 04, 2024 Dr. Brad Hou MD Referring Provider Active Start: August 04, 2024 Team Status: Inactive Member Role Status Dates Dr. Angelica Saleh MD Primary Care Provider Active Start: August 08, 2024 End: August 08, 2024 JACEY Haddad Attending Provider Active Start: August 08, 2024 End: August 08, 2024 JACEY Haddad Referring Provider Active Start: August 08, 2024 End: August 08, 2024 Area Captain Relationship Specialty Start Date End Date Romain Hurd V [address] [place] [address] Internal Medicine 02/26/23 Va Dunaway MD [address] [place] [address] Physician Radiation Oncology 04/08/23 Valdemar Duncan MD [address] [place] [address] Hematology/Oncology 04/22/23 Lyubov Castaneda CNP [address] [place] [address] [id number] Family Medicine 12/01/23 Latosha Renee MD [address] [place] [address] [phone] Endocrinology 12/01/23 Area Captain Relationship Specialty Start Date End Date Tonyviv RomainMaki [address] [place] [address] Internal Medicine 02/26/23 Va Dunaway MD [address] [place] [address] Physician Radiation Oncology 04/08/23 Valdemar Duncan MD [address] [place] [address] Hematology/Oncology 04/22/23 Lyubov Castaneda, X RAY SERVICE TECHNICIAN [address] [place] [phone] Family Medicine 12/01/23 Latosha Renee MD [address] [place] [id number] Endocrinology 12/01/23 Area Captain Relationship Specialty Start Date End Date Romain Hurd V [address] [place] [phone] Internal Medicine 02/26/23 Va Dunaway MD [address] [place], [place] [id number] Physician Radiation Oncology 04/08/23 Valdemar Duncan MD [address] [place] [address] Hematology/Oncology 04/22/23 Lyubov Castaneda X RAY SERVICE TECHNICIAN [address] [place] [phone] Family Medicine 12/01/23 Latosha Renee MD [address] [place] [phone] Endocrinology 12/01/23 Area Captain Relationship Specialty Start Date End Date Romain Hurd V [address] [place] [phone] Internal Medicine 02/26/23 Va Dunaway MD [address] [place] [address] Physician Radiation Oncology 04/08/23 Valdemar Duncan MD [address] [place] [address] Hematology/Oncology 04/22/23 Lyubov Castaneda CNP [address] [place] [phone] Family Medicine 12/01/23 Latosha Renee MD [address] [place] [phone] Endocrinology 12/01/23 Area Captain Relationship Specialty Start Date End Date Romain Hurd V [address] [place] [address] Internal Medicine 02/26/23 Va Dunaway MD [address] [place] [address] Physician Radiation Oncology 04/08/23 Valdemar Duncan MD [address] [place] [address] Hematology/Oncology 04/22/23 Lyubov Castaneda CNP [address] [place] [id number] Family Medicine 12/01/23 Latosha Renee MD [address] [place] [id number] Endocrinology 12/01/23 Team Status: Active Member Role Status Dates Dr. Angelica Saleh MD Primary Care Provider Active Start: September 04, 2024 Dr. Janie Madsen DO Emergency Provider Active S tart: September 04, 2024 Dr. Serina Juan MD Admit Provider Active Star t: September 04, 2024 Dr. Serina Juan MD Attending Provider Active Start: September 04, 2024 Team Status: Active Member Role/Relationship Status Dates Dr. Angelica Saleh MD Primary Care Provider Active Team Status: Inactive Member Role/Relationship Status Dates Dr. Angelica Saleh MD Primary Care Provider Active Start: May 18, 2024 End: May 18, 2024 Dr. Angelica Saleh MD Referring Provider Active Start: May 18, 2024 End: May 18, 2024 Dr. Naresh Cuellar MD Attending Provider Active S tart: May 18, 2024 End: May 18, 2024 Team Status: Active Member Role/Relationship Status Dates Dr. Angelica Saleh MD Primary Care Provider Active Start: May 31, 2024 Dr. Del King MD Attending Provider Active Start: May 31, 2024 Dr. Del King MD Referring Provider Active Start: May 31, 2024 Team Status: Inactive Member Role/Relationship Status Dates Dr. Angelica Saleh MD Primary Care Provider Active Start: May 31, 2024 End: May 31, 2024 Dr. Angelica Saleh MD Referring Provider Active Start: May 31, 2024 End: May 31, 2024 Dr. Wild Gallagher DO Attending Provider Active Start: May 31, 2024 End: May 31, 2024 Team Status: Active Member Role/Relationship Status Dates Dr. Angelica Saleh MD Primary Care Provider Active Start: May 31, 2024 Dr. Angelica Saleh MD Referring Provider Active Start: May 31, 2024 Dr. Wild Gallagher DO Attending Provider Active Start: May 31, 2024 Dr. Wild Gallagher DO Other Provider Active St art: May 31, 2024 Team Status: Inactive Member Role/Relationship Status Dates Dr. Angelica Saleh MD Primary Care Provider Active Start: June 06, 2024 End: June 06, 2024 Dr. Latosha Renee MD Attending Provider Act enmanuel Start: June 06, 2024 End: June 06, 2024 Dr. Latosha Renee MD Referring Provider Act enmanuel Start: June 06, 2024 End: June 06, 2024 Team Status: Inactive Member Role/Relationship Status Dates Dr. Angelica Saleh MD Primary Care Provider Active Start: June 09, 2024 End: June 09, 2024 Dr. Carroll Celeste MD Attending Provider Active S tart: June 09, 2024 End: June 09, 2024 Dr. Carroll Celeste MD Emergency Provider Active S tart: June 09, 2024 End: June 09, 2024 Team Status: Inactive Member Role/Relationship Status Dates Dr. Romain Roach DO Referring Provider Active Start: June 14, 2024 End: June 14, 2024 Dr. Angelica Saleh MD Primary Care Provider Active Start: June 14, 2024 End: June 14, 2024 Dr. Angelica Saleh MD Attending Provider Active Start: June 14, 2024 End: June 14, 2024 Team Status: Inactive Member Role/Relationship Status Dates Dr. Angelica Saleh MD Primary Care Provider Active Start: June 14, 2024 End: June 14, 2024 Dr. Angelica Saleh MD Attending Provider Active Start: June 14, 2024 End: June 14, 2024 Dr. Angelica Saleh MD Referring Provider Active Start: June 14, 2024 End: June 14, 2024 Team Status: Inactive Member Role/Relationship Status Dates Dr. Angelica Saleh MD Primary Care Provider Active Start: June 15, 2024 End: June 15, 2024 Dr. Angelica Saleh MD Attending Provider Active Start: June 15, 2024 End: June 15, 2024 Team Status: Inactive Member Role/Relationship Status Dates Dr. Angelica Saleh MD Primary Care Provider Active Start: June 23, 2024 End: June 23, 2024 Dr. Latosha Renee MD Attending Provider Act enmanuel Start: June 23, 2024 End: June 23, 2024 Dr. Latosha Renee MD Referring Provider Act enmanuel Start: June 23, 2024 End: June 23, 2024 Team Status: Inactive Member Role/Relationship Status Dates Dr. Angelica Saleh MD Primary Care Provider Active Start: June 26, 2024 End: June 26, 2024 Dr. Angelica Saleh MD Referring Provider Active Start: June 26, 2024 End: June 26, 2024 ROB HaddadC Attending Provider Active Start: June 26, 2024 End: June 26, 2024 Team Status: Inactive Member Role/Relationship Status Dates Dr. Angelica Saleh MD Primary Care Provider Active Start: July 07, 2024 End: July 07, 2024 ROB HaddadC Attending Provider Active Start: July 07, 2024 End: July 07, 2024 JACEY Haddad Referring Provider Active Start: July 07, 2024 End: July 07, 2024 Team Status: Inactive Member Role/Relationship Status Dates Dr. Angelica Saleh MD Primary Care Provider Active Start: July 20, 2024 End: July 20, 2024 Dr. Latosha Renee MD Attending Provider Act enmanuel Start: July 20, 2024 End: July 20, 2024 Dr. Latosha Renee MD Referring Provider Act enmanuel Start: July 20, 2024 End: July 20, 2024 Team Status: Inactive Member Role/Relationship Status Dates Dr. Angelica Saleh MD Primary Care Provider Active Start: July 24, 2024 End: July 24, 2024 Dr. Angelica Saleh MD Referring Provider Active Start: July 24, 2024 End: July 24, 2024 JACEY Haddad Attending Provider Active Start: July 24, 2024 End: July 24, 2024 Team Status: Active Member Role/Relationship Status Dates Dr. Angelica Saleh MD Primary Care Provider Active Start: August 04, 2024 Dr. Brad Hou MD Attending Provider Active Start: August 04, 2024 Dr. Brad Hou MD Referring Provider Active Start: August 04, 2024 Team Status: Inactive Member Role/Relationship Status Dates Dr. Angelica Saleh MD Primary Care Provider Active Start: August 08, 2024 End: August 08, 2024 ROB HaddadC Attending Provider Active Start: August 08, 2024 End: August 08, 2024 Jaleesa Mateo , PROF[employer] Referring Provider Active Start: August 08, 2024 End: August 08, 2024 Team Status: Inactive Member Role/Relationship Status Dates Dr. Angelica Saleh MD Primary Care Provider Active Start: September 04, 2024 End: September 11, 2024 Dr. Janie Madsen DO Emergency Provider Active S tart: September 04, 2024 End: September 11, 2024 Dr. Serina Juan MD Admit Provider Active Star t: September 04, 2024 End: September 11, 2024 Dr. Serina Juan MD Other Provider Active Star t: September 04, 2024 End: September 11, 2024 Dr. Jose Zhang MD Attending Provider Active Start: September 04, 2024 End: September 11, 2024 Dr. Stanton Ortega DO Other Provider Active Start: September 04, 2024 End: September 11, 2024 Dr. Romain Bazzi MD Other Provider Active Start: September 04, 2024 End: September 11, 2024 Team Status: Active Member Role/Relationship Status Dates Dr. Angelica Saleh MD Primary Care Provider Active Start: September 05, 2024 Dr. Janie Madsen DO Emergency Provider Active S tart: September 05, 2024 Dr. Serina Juan MD Admit Provider Active Star t: September 05, 2024 Dr. Serina Juan MD Other Provider Active Star t: September 05, 2024 Dr. Wolfgang Ley MD Other Provider Active Start: September 05, 2024 Dr. Anish Gaston MD Other Provider Active Start: September 05, 2024 Dr. Natalio Keene MD Other Provider Active Star t: September 05, 2024 Dr. Addy Nelson DO Attending Provider Active S tart: September 05, 2024 Dr. Addy Nelson DO Other Provider Active Start : September 05, 2024 Dr. Kahlil Kinney MD Other Provider Active Sta rt: September 05, 2024 Dr. Joel Yeh MD Other Provider Active St art: September 05, 2024 Dr. Geronimo Larose MD Other Provider Active S tart: September 05, 2024 Dr. Araceli Gutierrez MD Other Provider Active Start: September 05, 2024 Dr. Damian Estrella MD Other Provider Active Start : September 05, 2024 Dr. Jimy Iglesias MD Other Provider Active Start: September 05, 2024 Dr. Manjinder Gregorio MD Other Provider Active Start : September 05, 2024 Dr. Amie Farr MD Other Provider Active Star t: September 05, 2024 Dr. Janny Rodrigez MD Other Provider Active Sta rt: September 05, 2024 Dr. Tammy Reyna MD Other Provider Active Sta rt: September 05, 2024 Dr. Abimael Dunlap MD Other Provider Active Star t: September 05, 2024 Dr. Parveen Santillan MD Other Provider Active St art: September 05, 2024 Dr. Cr Gaines MD Other Provider Active Star t: September 05, 2024 Dr. Rajan Joy DO Other Provider Active St art: September 05, 2024 Dr. Kimberlyn Chambers MD Other Provider Active Start: September 05, 2024 Dr. Yara Luna MD Other Provider Active St art: September 05, 2024 Dr. Ruddy Sotelo DO Other Provider Active Start: September 05, 2024 Dr. Flex Jorgensen MD Other Provider Active Star t: September 05, 2024 Dr. Ankit Ross MD Other Provider Active Sta rt: September 05, 2024 Dr. Stanton Ortega DO Other Provider Active Start: September 05, 2024 Team Status: Active Member Role/Relationship Status Dates Dr. Angelica Saleh MD Primary Care Provider Active Start: September 05, 2024 Dr. Janie Madsen DO Emergency Provider Active S tart: September 05, 2024 Dr. eSrina Juan MD Admit Provider Active Star t: September 05, 2024 Dr. Serina Juan MD Other Provider Active Star t: September 05, 2024 Dr. Wolfgang Ley MD Other Provider Active Start: September 05, 2024 Dr. Anish Gaston MD Other Provider Active Start: September 05, 2024 Dr. Natalio Keene MD Other Provider Active Star t: September 05, 2024 Dr. Addy Nelson , Other Provider Active Start : September 05, 2024 Dr. Kahlil Kinney MD Other Provider Active Sta rt: September 05, 2024 Dr. Joel Yeh MD Other Provider Active St art: September 05, 2024 Dr. Geronimo Larose MD Other Provider Active S tart: September 05, 2024 Dr. Araceli Gutierrez MD Other Provider Active Start: September 05, 2024 Dr. Damian Estrella MD Other Provider Active Start : September 05, 2024 Dr. Jimy Iglesias MD Other Provider Active Start: September 05, 2024 Dr. Manjinder Gregorio MD Other Provider Active Start : September 05, 2024 Dr. Amie Farr MD Other Provider Active Star t: September 05, 2024 Dr. Janny Rodrigez MD Other Provider Active Sta rt: September 05, 2024 Dr. Tammy Reyna MD Other Provider Active Sta rt: September 05, 2024 Dr. Abimael Dunlap MD Other Provider Active Star t: September 05, 2024 Dr. Parveen Santillan MD Other Provider Active St art: September 05, 2024 Dr. Cr Gaines MD Other Provider Active Star t: September 05, 2024 Dr. Rajan Joy DO Other Provider Active St art: September 05, 2024 Dr. Kimberlyn Chambers MD Other Provider Active Start: September 05, 2024 Dr. Yara Luna MD Other Provider Active St art: September 05, 2024 Dr. Ruddy Sotelo DO Other Provider Active Start: September 05, 2024 Dr. Flex Jorgensen MD Other Provider Active Star t: September 05, 2024 Dr. Ankit Ross MD Other Provider Active Sta rt: September 05, 2024 Dr. Stanton Ortega DO Attending Provider Active Start: September 05, 2024 Dr. Stanton Ortega DO Other Provider Active Start: September 05, 2024 Team Status: Active Member Role/Relationship Status Dates Dr. Angelica Saleh MD Primary Care Provider Active Start: September 05, 2024 Dr. Janie Madsen DO Emergency Provider Active S tart: September 05, 2024 Dr. Serina Juan MD Admit Provider Active Star t: September 05, 2024 Dr. Serina Juan MD Other Provider Active Star t: September 05, 2024 Dr. Wolfgang Ley MD Other Provider Active Start: September 05, 2024 Dr. Anish Gaston MD Other Provider Active Start: September 05, 2024 Dr. Natalio Keene MD Other Provider Active Star t: September 05, 2024 Dr. Addy Nelson DO Other Provider Active Start : September 05, 2024 Dr. Kahlil Kinney MD Other Provider Active Sta rt: September 05, 2024 Dr. Joel Yeh MD Other Provider Active St art: September 05, 2024 Dr. Geronimo Larose MD Other Provider Active S tart: September 05, 2024 Dr. Araceli Gutierrez MD Other Provider Active Start: September 05, 2024 Dr. Damian Estrella MD Other Provider Active Start : September 05, 2024 Dr. Jimy Iglesias MD Other Provider Active Start: September 05, 2024 Dr. Manjinder Gregorio MD Other Provider Active Start : September 05, 2024 Dr. Amie Farr MD Other Provider Active Star t: September 05, 2024 Dr. Janny Rodrigez MD Other Provider Active Sta rt: September 05, 2024 Dr. Tammy Reyna MD Other Provider Active Sta rt: September 05, 2024 Dr. Abimael Dunlap MD Other Provider Active Star t: September 05, 2024 Dr. Parveen Santillan MD Other Provider Active St art: September 05, 2024 Dr. Cr Gaines MD Other Provider Active Star t: September 05, 2024 Dr. Rajan Joy DO Other Provider Active St art: September 05, 2024 Dr. Kimberlyn Chambers MD Other Provider Active Start: September 05, 2024 Dr. Yara Luna MD Other Provider Active St art: September 05, 2024 Dr. Ruddy Sotelo DO Other Provider Active Start: September 05, 2024 Dr. Flex Jorgensen MD Other Provider Active Star t: September 05, 2024 Dr. Ankit Ross MD Other Provider Active Sta rt: September 05, 2024 Dr. Stanton Ortega DO Other Provider Active Start: September 05, 2024 Dr. Wild Gallagher DO Attending Provider Active Start: September 05, 2024 Team Status: Active Member Role/Relationship Status Dates Dr. Angelica Saleh MD Primary Care Provider Active Start: September 06, 2024 End: September 06, 2024 Dr. Peter Mohan MD Attending Provider Active S tart: September 06, 2024 End: September 06, 2024 Dr. Peter Mohan MD Referring Provider Active S tart: September 06, 2024 End: September 06, 2024 Team Status: Active Member Role/Relationship Status Dates Dr. Angelica Saleh MD Primary Care Provider Active Start: September 06, 2024 Dr. Janie Madsen DO Emergency Provider Active S tart: September 06, 2024 Dr. Serina Juan MD Admit Provider Active Star t: September 06, 2024 Dr. Serina Juan MD Other Provider Active Star t: September 06, 2024 Dr. Stanton Ortega DO Other Provider Active Start: September 06, 2024 Dr. Addy Nelson DO Attending Provider Active S tart: September 06, 2024 Team Status: Active Member Role/Relationship Status Dates Dr. Angelica Saleh MD Primary Care Provider Active Start: September 06, 2024 Dr. Janie Madsen DO Emergency Provider Active S tart: September 06, 2024 Dr. Serina Juan MD Admit Provider Active Star t: September 06, 2024 Dr. Serina Juan MD Other Provider Active Star t: September 06, 2024 Dr. Stanton Ortega DO Other Provider Active Start: September 06, 2024 Dr. Wolfgang Ley MD Other Provider Active Start: September 06, 2024 Dr. Anish Gaston MD Other Provider Active Start: September 06, 2024 Dr. Natalio Keene MD Other Provider Active Star t: September 06, 2024 Dr. Addy Nelson DO Other Provider Active Start : September 06, 2024 Dr. Kahlil Kinney MD Other Provider Active Sta rt: September 06, 2024 Dr. Joel Yeh MD Other Provider Active St art: September 06, 2024 Dr. Geronimo Larose MD Other Provider Active S tart: September 06, 2024 Dr. Araceli Gutierrez MD Other Provider Active Start: September 06, 2024 Dr. Damian Estrella MD Other Provider Active Start : September 06, 2024 Dr. Jimy Iglesias MD Other Provider Active Start: September 06, 2024 Dr. Manjinder Gregorio MD Other Provider Active Start : September 06, 2024 Dr. Amie Farr MD Other Provider Active Star t: September 06, 2024 Dr. Janny Rodrigez MD Other Provider Active Sta rt: September 06, 2024 Dr. Tammy Reyna MD Other Provider Active Sta rt: September 06, 2024 Dr. Abimael Dunlap MD Other Provider Active Star t: September 06, 2024 Dr. Parveen Santillan MD Other Provider Active St art: September 06, 2024 Dr. Cr Gaiens MD Other Provider Active Star t: September 06, 2024 Dr. Rajan Joy DO Other Provider Active St art: September 06, 2024 Dr. Kimberlyn Chambers MD Other Provider Active Start: September 06, 2024 Dr. Yara Luna MD Other Provider Active St art: September 06, 2024 Dr. Ruddy Sotelo DO Other Provider Active Start: September 06, 2024 Dr. Flex Jorgensen MD Other Provider Active Star t: September 06, 2024 Dr. Ankit Ross MD Other Provider Active Sta rt: September 06, 2024 Dr. Wild Gallagher DO Attending Provider Active Start: September 06, 2024 Team Status: Active Member Role/Relationship Status Dates Dr. Angelica Saleh MD Primary Care Provider Active Start: September 06, 2024 Dr. Janie Madsen DO Emergency Provider Active S tart: September 06, 2024 Dr. Serina Juan MD Admit Provider Active Star t: September 06, 2024 Dr. Serina Juan MD Other Provider Active Star t: September 06, 2024 Dr. Stanton Ortega DO Attending Provider Active Start: September 06, 2024 Dr. Stanton Ortega DO Other Provider Active Start: September 06, 2024 Team Status: Active Member Role/Relationship Status Dates Dr. Angelica Saleh MD Primary Care Provider Active Start: September 07, 2024 Dr. Brittany Izquierdo MD Attending Provider Active Start: September 07, 2024 Team Status: Active Member Role/Relationship Status Dates Dr. Angelica Saleh MD Primary Care Provider Active Start: September 07, 2024 Dr. Janie Madsen DO Emergency Provider Active S tart: September 07, 2024 Dr. Serina Juan MD Admit Provider Active Star t: September 07, 2024 Dr. Serina Juan MD Other Provider Active Star t: September 07, 2024 Dr. Jose Zhang MD Attending Provider Active Start: September 07, 2024 Dr. Jose Zhang MD Other Provider Active Sta rt: September 07, 2024 Dr. Stanton Ortega DO Other Provider Active Start: September 07, 2024 Dr. Romain Bazzi MD Other Provider Active Start: September 07, 2024 Team Status: Active Member Role/Relationship Status Dates Dr. Angelica Saleh MD Primary Care Provider Active Start: September 07, 2024 Dr. Janie Madsen DO Emergency Provider Active S tart: September 07, 2024 Dr. Serina Juan MD Admit Provider Active Star t: September 07, 2024 Dr. Serina Juan MD Other Provider Active Star t: September 07, 2024 Dr. Jose Zhang MD Other Provider Active Sta rt: September 07, 2024 Dr. Stanton Ortega DO Other Provider Active Start: September 07, 2024 Dr. Romain Bazzi MD Other Provider Active Start: September 07, 2024 Dr. Wild Gallagher DO Attending Provider Active Start: September 07, 2024 Team Status: Active Member Role/Relationship Status Dates Dr. Angelica Saleh MD Primary Care Provider Active Start: September 08, 2024 Dr. Janie Madsen DO Emergency Provider Active S tart: September 08, 2024 Dr. Serina Juan MD Admit Provider Active Star t: September 08, 2024 Dr. Serina Juan MD Other Provider Active Star t: September 08, 2024 Dr. Jose Zhang MD Attending Provider Active Start: September 08, 2024 Dr. Jose Zhang MD Other Provider Active Sta rt: September 08, 2024 Dr. Stanton Ortega DO Other Provider Active Start: September 08, 2024 Dr. Romain Bazzi MD Other Provider Active Start: September 08, 2024 Team Status: Active Member Role/Relationship Status Dates Dr. Angelica Saleh MD Primary Care Provider Active Start: September 09, 2024 Dr. Janie Madsen DO Emergency Provider Active S tart: September 09, 2024 Dr. Serina Juan MD Admit Provider Active Star t: September 09, 2024 Dr. Serina Juan MD Other Provider Active Star t: September 09, 2024 Dr. Jose Zhang MD Attending Provider Active Start: September 09, 2024 Dr. Jose Zhang MD Other Provider Active Sta rt: September 09, 2024 Dr. Stanton Ortega DO Other Provider Active Start: September 09, 2024 Dr. Romain Bazzi MD Other Provider Active Start: September 09, 2024 Team Status: Active Member Role/Relationship Status Dates Dr. Angelica Saleh MD Primary Care Provider Active Start: September 10, 2024 Dr. Janie Madsen DO Emergency Provider Active S tart: September 10, 2024 Dr. Serina Juan MD Admit Provider Active Star t: September 10, 2024 Dr. Serina Juan MD Other Provider Active Star t: September 10, 2024 Dr. Jose Zhang MD Attending Provider Active Start: September 10, 2024 Dr. Jose Zhang MD Other Provider Active Sta rt: September 10, 2024 Dr. Stanton Ortega DO Other Provider Active Start: September 10, 2024 Dr. Romain Bazzi MD Other Provider Active Start: September 10, 2024 Team Status: Active Member Role/Relationship Status Dates Dr. Angelica Saleh MD Primary Care Provider Active Start: September 11, 2024 Dr. Janie Madsen DO Emergency Provider Active S tart: September 11, 2024 Dr. Serina Juan MD Admit Provider Active Star t: September 11, 2024 Dr. Serina Juan MD Other Provider Active Star t: September 11, 2024 Dr. Jose Zhang MD Attending Provider Active Start: September 11, 2024 Dr. Jose Zhang MD Other Provider Active Sta rt: September 11, 2024 Dr. Stanton Ortega DO Other Provider Active Start: September 11, 2024 Dr. Romain Bazzi MD Other Provider Active Start: September 11, 2024 Team Status: Active Member Role/Relationship Status Dates Dr. Angelica Saleh MD Primary Care Provider Active Start: September 11, 2024 Dr. Janie Madsen DO Emergency Provider Active S tart: September 11, 2024 Dr. Serina Juan MD Admit Provider Active Star t: September 11, 2024 Dr. Serina Juan MD Other Provider Active Star t: September 11, 2024 Dr. Jose Zhang MD Other Provider Active Sta rt: September 11, 2024 Dr. Stanton Ortega DO Other Provider Active Start: September 11, 2024 Dr. Romain Bazzi MD Other Provider Active Start: September 11, 2024 Dr. Wild Gallagher , Attending Provider Active Start: September 11, 2024 Area Captain Relationship Specialty Start Date End Date Romain Hurd V [address] [place] [id number] Internal Medicine 02/26/23 Va Dunaway MD [address] [place], [place] [id number] Physician Radiation Oncology 04/08/23 Valdemar Duncan MD [address] [place], [place] [id number] Hematology/Oncology 04/22/23 Lyubov Castaneda CNP [address] [place] [address] Family Medicine 12/01/23 Latosha Renee MD [address] [place] [id number] Endocrinology 12/01/23 Area Captain Relationship Specialty Start Date End Date Romain Hurd V [address] [place] [id number] Internal Medicine 02/26/23 Va Dunaway MD [address] [facility] [place] [address] Physician Radiation Oncology 04/08/23 Valdemar Duncan MD [address] [place] [address] Hematology/Oncology 04/22/23 Lyubov Castaneda CNP [address] [place] [id number] Family Medicine 12/01/23 Latosha Renee MD [address] [place] [id number] Endocrinology 12/01/23 Team Status: Inactive Member Role/Relationship Status Dates Dr. Angelica Saleh MD Primary Care Provider Active Start: June 23, 2024 End: June 23, 2024 Dr. Latosha Renee MD Attending Provider Act enmanuel Start: June 23, 2024 End: June 23, 2024 Dr. Latosha Renee MD Referring Provider Act enmanuel Start: June 23, 2024 End: June 23, 2024 Team Status: Inactive Member Role/Relationship Status Dates Dr. Angelica Saleh MD Primary Care Provider Active Start: June 26, 2024 End: June 26, 2024 Dr. Angelica Saleh MD Referring Provider Active Start: June 26, 2024 End: June 26, 2024 JACEY Haddad Attending Provider Active Start: June 26, 2024 End: June 26, 2024 Team Status: Inactive Member Role/Relationship Status Dates Dr. Angelica Saleh MD Primary Care Provider Active Start: July 07, 2024 End: July 07, 2024 JACEY Haddad Attending Provider Active Start: July 07, 2024 End: July 07, 2024 Jaleesa Mateo , [employer] Referring Provider Active Start: July 07, 2024 End: July 07, 2024 Team Status: Inactive Member Role/Relationship Status Dates Dr. Angelica Saleh MD Primary Care Provider Active Start: July 20, 2024 End: July 20, 2024 Dr. Latosha Renee MD Attending Provider Act enmanuel Start: July 20, 2024 End: July 20, 2024 Dr. Latosha Renee MD Referring Provider Act enmanuel Start: July 20, 2024 End: July 20, 2024 Team Status: Inactive Member Role/Relationship Status Dates Dr. Angelica Saleh MD Primary Care Provider Active Start: July 24, 2024 End: July 24, 2024 Dr. Angelica Saleh MD Referring Provider Active Start: July 24, 2024 End: July 24, 2024 ROB HaddadC Attending Provider Active Start: July 24, 2024 End: July 24, 2024 Team Status: Active Member Role/Relationship Status Dates Dr. Angelica Saleh MD Primary Care Provider Active Start: August 04, 2024 Dr. Brad Hou MD Attending Provider Active Start: August 04, 2024 Dr. Brad Hou MD Referring Provider Active Start: August 04, 2024 Team Status: Inactive Member Role/Relationship Status Dates Dr. Angelica Saleh MD Primary Care Provider Active Start: August 08, 2024 End: August 08, 2024 Jaleesa Galindo NP-C Attending Provider Active Start: August 08, 2024 End: August 08, 2024 Jaleesa Galindo NP-C Referring Provider Active Start: August 08, 2024 End: August 08, 2024 Team Status: Inactive Member Role/Relationship Status Dates Dr. Angelica Saleh MD Primary Care Provider Active Start: September 04, 2024 End: September 11, 2024 Dr. Janie Madsen DO Emergency Provider Active S tart: September 04, 2024 End: September 11, 2024 Dr. Serina Juan MD Admit Provider Active Star t: September 04, 2024 End: September 11, 2024 Dr. Serina Juan MD Other Provider Active Star t: September 04, 2024 End: September 11, 2024 Dr. Jose Zhang MD Attending Provider Active Start: September 04, 2024 End: September 11, 2024 Dr. Stanton Ortega DO Other Provider Active Start: September 04, 2024 End: September 11, 2024 Dr. Romain Bazzi MD Other Provider Active Start: September 04, 2024 End: September 11, 2024 Team Status: Active Member Role/Relationship Status Dates Dr. Angelica Saleh MD Primary Care Provider Active Start: September 05, 2024 Dr. Janie Madsen DO Emergency Provider Active S tart: September 05, 2024 Dr. Serina Juan MD Admit Provider Active Star t: September 05, 2024 Dr. Serina Juan MD Referring Provider Active Start: September 05, 2024 Dr. Serina Juan MD Other Provider Active Star t: September 05, 2024 Dr. Wolfgang Ley MD Other Provider Active Start: September 05, 2024 Dr. Anish Gaston MD Other Provider Active Start: September 05, 2024 Dr. Natalio Keene MD Other Provider Active Star t: September 05, 2024 Dr. Addy Nelson DO Attending Provider Active S tart: September 05, 2024 Dr. Addy Nelson DO Other Provider Active Start : September 05, 2024 Dr. Kahlil Kinney MD Other Provider Active Sta rt: September 05, 2024 Dr. Joel Yeh MD Other Provider Active St art: September 05, 2024 Dr. Geronimo Larose MD Other Provider Active S tart: September 05, 2024 Dr. Araceli Gutierrez MD Other Provider Active Start: September 05, 2024 Dr. Damian Estrella MD Other Provider Active Start : September 05, 2024 Dr. Jimy Iglesias MD Other Provider Active Start: September 05, 2024 Dr. Manjinder Gregorio MD Other Provider Active Start : September 05, 2024 Dr. Amie Farr MD Other Provider Active Star t: September 05, 2024 Dr. Janny Rodriegz MD Other Provider Active Sta rt: September 05, 2024 Dr. Tammy Reyna MD Other Provider Active Sta rt: September 05, 2024 Dr. Abimael Dunlap MD Other Provider Active Star t: September 05, 2024 Dr. Parveen Santillan MD Other Provider Active St art: September 05, 2024 Dr. Cr Gaines MD Other Provider Active Star t: September 05, 2024 Dr. Rajan Joy DO Other Provider Active St art: September 05, 2024 Dr. Kimberlyn Chambers MD Other Provider Active Start: September 05, 2024 Dr. Yara Luna MD Other Provider Active St art: September 05, 2024 Dr. Ruddy Sotelo DO Other Provider Active Start: September 05, 2024 Dr. Flex Jorgensen MD Other Provider Active Star t: September 05, 2024 Dr. Ankit Ross MD Other Provider Active Sta rt: September 05, 2024 Dr. Stanton Ortega DO Other Provider Active Start: September 05, 2024 Team Status: Active Member Role/Relationship Status Dates Dr. Angelica Saleh MD Primary Care Provider Active Start: September 05, 2024 Dr. Janie Madsen DO Emergency Provider Active S tart: September 05, 2024 Dr. Serina Juan MD Admit Provider Active Star t: September 05, 2024 Dr. Serina Juan MD Other Provider Active Star t: September 05, 2024 Dr. Wolfgang Ley MD Other Provider Active Start: September 05, 2024 Dr. Anish Gaston MD Other Provider Active Start: September 05, 2024 Dr. Natalio Keene MD Other Provider Active Star t: September 05, 2024 Dr. Addy Nelson DO Other Provider Active Start : September 05, 2024 Dr. Kahlil Kinney MD Other Provider Active Sta rt: September 05, 2024 Dr. Joel Yeh MD Other Provider Active St art: September 05, 2024 Dr. Geronimo Larose MD Other Provider Active S tart: September 05, 2024 Dr. Araceli Gutierrez MD Other Provider Active Start: September 05, 2024 Dr. Damian Estrella MD Other Provider Active Start : September 05, 2024 Dr. Jimy Iglesias MD Other Provider Active Start: September 05, 2024 Dr. Manjinder Gregorio MD Other Provider Active Start : September 05, 2024 Dr. Amie Farr MD Other Provider Active Star t: September 05, 2024 Dr. Janny Rodrigez MD Other Provider Active Sta rt: September 05, 2024 Dr. Tammy Reyna MD Other Provider Active Sta rt: September 05, 2024 Dr. Abimael Dunlap MD Other Provider Active Star t: September 05, 2024 Dr. Parveen Santillan MD Other Provider Active St art: September 05, 2024 Dr. Cr Gaines MD Other Provider Active Star t: September 05, 2024 Dr. Rajan Joy , DO Other Provider Active St art: September 05, 2024 Dr. Kimberlyn Chambers MD Other Provider Active Start: September 05, 2024 Dr. Yara Luna MD Other Provider Active St art: September 05, 2024 Dr. Ruddy Sotelo DO Other Provider Active Start: September 05, 2024 Dr. Flex Jorgensen MD Other Provider Active Star t: September 05, 2024 Dr. Ankit Ross MD Other Provider Active Sta rt: September 05, 2024 Dr. Stanton Ortega DO Attending Provider Active Start: September 05, 2024 Dr. Stanton Ortega DO Other Provider Active Start: September 05, 2024 Team Status: Active Member Role/Relationship Status Dates Dr. Angelica Saleh MD Primary Care Provider Active Start: September 05, 2024 Dr. Janie Madsen DO Emergency Provider Active S tart: September 05, 2024 Dr. Serina Juan MD Admit Provider Active Star t: September 05, 2024 Dr. Serina Juan MD Other Provider Active Star t: September 05, 2024 Dr. Wolfgang Ley MD Other Provider Active Start: September 05, 2024 Dr. Anish Gaston MD Other Provider Active Start: September 05, 2024 Dr. Natalio Keene MD Other Provider Active Star t: September 05, 2024 Dr. Addy Nelson DO Other Provider Active Start : September 05, 2024 Dr. Kahlil Kinney MD Other Provider Active Sta rt: September 05, 2024 Dr. Joel Yeh MD Other Provider Active St art: September 05, 2024 Dr. Geronimo Larose MD Other Provider Active S tart: September 05, 2024 Dr. Araceli Gutierrez MD Other Provider Active Start: September 05, 2024 Dr. Damian Estrella MD Other Provider Active Start : September 05, 2024 Dr. Jimy Iglesias MD Other Provider Active Start: September 05, 2024 Dr. Manjinder Gregorio MD Other Provider Active Start : September 05, 2024 Dr. Amie Farr MD Other Provider Active Star t: September 05, 2024 Dr. Janny Rodrigez MD Other Provider Active Sta rt: September 05, 2024 Dr. Tammy Reyna MD Other Provider Active Sta rt: September 05, 2024 Dr. Abimael Dunlap MD Other Provider Active Star t: September 05, 2024 Dr. Parveen Santillan MD Other Provider Active St art: September 05, 2024 Dr. Cr Gaines MD Other Provider Active Star t: September 05, 2024 Dr. Rajan Joy DO Other Provider Active St art: September 05, 2024 Dr. Kimberlyn Chambers MD Other Provider Active Start: September 05, 2024 Dr. Yara Luna MD Other Provider Active St art: September 05, 2024 Dr. Ruddy Sotelo DO Other Provider Active Start: September 05, 2024 Dr. Flex Jorgensen MD Other Provider Active Star t: September 05, 2024 Dr. Ankit Ross MD Other Provider Active Sta rt: September 05, 2024 Dr. Stanton Ortega DO Referring Provider Active Start: September 05, 2024 Dr. Stanton Ortega DO Other Provider Active Start: September 05, 2024 Dr. Wild Gallagher DO Attending Provider Active Start: September 05, 2024 Team Status: Active Member Role/Relationship Status Dates Dr. Angelica Saleh MD Primary Care Provider Active Start: September 06, 2024 End: September 06, 2024 Dr. Peter Mohan MD Attending Provider Active S tart: September 06, 2024 End: September 06, 2024 Dr. Peter Mohan MD Referring Provider Active S tart: September 06, 2024 End: September 06, 2024 Team Status: Active Member Role/Relationship Status Dates Dr. Angelica Saleh MD Primary Care Provider Active Start: September 06, 2024 Dr. Janie Madsen DO Emergency Provider Active S tart: September 06, 2024 Dr. Serina Juan MD Admit Provider Active Star t: September 06, 2024 Dr. Serina Juan MD Other Provider Active Star t: September 06, 2024 Dr. Stanton Ortega DO Referring Provider Active Start: September 06, 2024 Dr. Stanton Ortega DO Other Provider Active Start: September 06, 2024 Dr. Addy Nelson DO Attending Provider Active S tart: September 06, 2024 Team Status: Active Member Role/Relationship Status Dates Dr. Angelica Saleh MD Primary Care Provider Active Start: September 06, 2024 Dr. Janie Madsen DO Emergency Provider Active S tart: September 06, 2024 Dr. Serina Juan MD Admit Provider Active Star t: September 06, 2024 Dr. Serina Juan MD Other Provider Active Star t: September 06, 2024 Dr. Stanton Ortega DO Referring Provider Active Start: September 06, 2024 Dr. Stanton Ortega DO Other Provider Active Start: September 06, 2024 Dr. Wolfgang Ley MD Other Provider Active Start: September 06, 2024 Dr. Anish Gaston MD Other Provider Active Start: September 06, 2024 Dr. Natalio Keene MD Other Provider Active Star t: September 06, 2024 Dr. Addy Nelson DO Other Provider Active Start : September 06, 2024 Dr. Kahlil Kinney MD Other Provider Active Sta rt: September 06, 2024 Dr. Joel Yeh MD Other Provider Active St art: September 06, 2024 Dr. Geronimo Larose MD Other Provider Active S tart: September 06, 2024 Dr. Araceli Gutierrez MD Other Provider Active Start: September 06, 2024 Dr. Damian Estrella MD Other Provider Active Start : September 06, 2024 Dr. Jimy Iglesias MD Other Provider Active Start: September 06, 2024 Dr. Manjinder Gregorio MD Other Provider Active Start : September 06, 2024 Dr. Amie Farr MD Other Provider Active Star t: September 06, 2024 Dr. Janny Rodrigez MD Other Provider Active Sta rt: September 06, 2024 Dr. Tammy Reyna MD Other Provider Active Sta rt: September 06, 2024 Dr. Abimael Dunlap MD Other Provider Active Star t: September 06, 2024 Dr. Parveen Santillan MD Other Provider Active St art: September 06, 2024 Dr. Cr Gaines MD Other Provider Active Star t: September 06, 2024 Dr. Rajan Joy DO Other Provider Active St art: September 06, 2024 Dr. Kimberlyn Chambers MD Other Provider Active Start: September 06, 2024 Dr. Yara Luna MD Other Provider Active St art: September 06, 2024 Dr. Ruddy Sotelo DO Other Provider Active Start: September 06, 2024 Dr. Flex Jorgensen MD Other Provider Active Star t: September 06, 2024 Dr. Ankit Ross MD Other Provider Active Sta rt: September 06, 2024 Dr. Wild Gallagher DO Attending Provider Active Start: September 06, 2024 Team Status: Active Member Role/Relationship Status Dates Dr. Angelica Saleh MD Primary Care Provider Active Start: September 06, 2024 Dr. Janie Madsen DO Emergency Provider Active S tart: September 06, 2024 Dr. Sreina Juan MD Admit Provider Active Star t: September 06, 2024 Dr. Serina Juan MD Other Provider Active Star t: September 06, 2024 Dr. Stanton Ortega DO Attending Provider Active Start: September 06, 2024 Dr. Stanton Ortega DO Other Provider Active Start: September 06, 2024 Team Status: Active Member Role/Relationship Status Dates Dr. Angelica Saleh MD Primary Care Provider Active Start: September 07, 2024 Dr. Brittany Izquierdo MD Attending Provider Active Start: September 07, 2024 Team Status: Active Member Role/Relationship Status Dates Dr. Angelica Saleh MD Primary Care Provider Active Start: September 07, 2024 Dr. Janie Madsen DO Emergency Provider Active S tart: September 07, 2024 Dr. Serina Juan MD Admit Provider Active Star t: September 07, 2024 Dr. Serina Juan MD Other Provider Active Star t: September 07, 2024 Dr. Jose Zhang MD Attending Provider Active Start: September 07, 2024 Dr. Jose Zhang MD Other Provider Active Sta rt: September 07, 2024 Dr. Stanton Ortega DO Other Provider Active Start: September 07, 2024 Dr. Romain Bazzi MD Other Provider Active Start: September 07, 2024 Team Status: Active Member Role/Relationship Status Dates Dr. Angelica Saleh MD Primary Care Provider Active Start: September 07, 2024 Dr. Janie Madsen DO Emergency Provider Active S tart: September 07, 2024 Dr. Serina Juan MD Admit Provider Active Star t: September 07, 2024 Dr. Serina Juan MD Other Provider Active Star t: September 07, 2024 Dr. Jose Zhang MD Referring Provider Active Start: September 07, 2024 Dr. Jose Zhang MD Other Provider Active Sta rt: September 07, 2024 Dr. Stanton Ortega DO Other Provider Active Start: September 07, 2024 Dr. Romain Bazzi MD Other Provider Active Start: September 07, 2024 Dr. Wild Gallagher , Attending Provider Active Start: September 07, 2024 Team Status: Active Member Role/Relationship Status Dates Dr. Angelica Saleh MD Primary Care Provider Active Start: September 08, 2024 Dr. Janie Madsen DO Emergency Provider Active S tart: September 08, 2024 Dr. Serina Juan MD Admit Provider Active Star t: September 08, 2024 Dr. Serina Juan MD Other Provider Active Star t: September 08, 2024 Dr. Jose Zhang MD Attending Provider Active Start: September 08, 2024 Dr. Jose Zhang MD Other Provider Active Sta rt: September 08, 2024 Dr. Stanton Ortega DO Other Provider Active Start: September 08, 2024 Dr. Romain Bazzi MD Other Provider Active Start: September 08, 2024 Team Status: Active Member Role/Relationship Status Dates Dr. Angelica Saleh MD Primary Care Provider Active Start: September 09, 2024 Dr. Janie Madsen DO Emergency Provider Active S tart: September 09, 2024 Dr. Serina Juan MD Admit Provider Active Star t: September 09, 2024 Dr. Serina Juan MD Other Provider Active Star t: September 09, 2024 Dr. Jose Zhang MD Attending Provider Active Start: September 09, 2024 Dr. Jose Zhang MD Other Provider Active Sta rt: September 09, 2024 Dr. Stanton Ortega , Other Provider Active Start: September 09, 2024 Dr. Romain Bazzi MD Other Provider Active Start: September 09, 2024 Team Status: Active Member Role/Relationship Status Dates Dr. Angelica Saleh MD Primary Care Provider Active Start: September 10, 2024 Dr. Janie Madsen DO Emergency Provider Active S tart: September 10, 2024 Dr. Serina Juan MD Admit Provider Active Star t: September 10, 2024 Dr. Serina Juan MD Other Provider Active Star t: September 10, 2024 Dr. Jose Zhang MD Attending Provider Active Start: September 10, 2024 Dr. Jose Zhang MD Other Provider Active Sta rt: September 10, 2024 Dr. Stanton Orteag DO Other Provider Active Start: September 10, 2024 Dr. Romain Bazzi MD Other Provider Active Start: September 10, 2024 Team Status: Active Member Role/Relationship Status Dates Dr. Angelica Saleh MD Primary Care Provider Active Start: September 11, 2024 Dr. Janie Madsen DO Emergency Provider Active S tart: September 11, 2024 Dr. Serina Juan MD Admit Provider Active Star t: September 11, 2024 Dr. Serina Juan MD Other Provider Active Star t: September 11, 2024 Dr. Jose Zhang MD Attending Provider Active Start: September 11, 2024 Dr. Jose Zhang MD Other Provider Active Sta rt: September 11, 2024 Dr. Stanton Ortega DO Other Provider Active Start: September 11, 2024 Dr. Romain Bazzi MD Other Provider Active Start: September 11, 2024 Team Status: Active Member Role/Relationship Status Dates Dr. Angelica Saleh MD Primary Care Provider Active Start: September 11, 2024 Dr. Janie Madsen DO Emergency Provider Active S tart: September 11, 2024 Dr. Serina Juan MD Admit Provider Active Star t: September 11, 2024 Dr. Serina Juan MD Other Provider Active Star t: September 11, 2024 Dr. Jose Zhang MD Referring Provider Active Start: September 11, 2024 Dr. Jose Zhang MD Other Provider Active Sta rt: September 11, 2024 Dr. Stanton Ortega DO Other Provider Active Start: September 11, 2024 Dr. Romain Bazzi MD Other Provider Active Start: September 11, 2024 Dr. Wild Gallagher DO Attending Provider Active Start: September 11, 2024 Team Status: Inactive Member Role/Relationship Status Dates Dr. Angelica Saleh MD Primary Care Provider Active Start: September 19, 2024 End: September 25, 2024 Dr. Иван Aranda DO Emergency Provider Activ e Start: September 19, 2024 End: September 25, 2024 Dr. Jose Zhang MD Admit Provider Active Sta rt: September 19, 2024 End: September 25, 2024 Dr. Jose Zhang MD Other Provider Active Sta rt: September 19, 2024 End: September 25, 2024 Dr. Humberto Thayer MD Other Provider Active Star t: September 19, 2024 End: September 25, 2024 Dr. Naresh Florez DO Attending Provider Active Start: September 19, 2024 End: September 25, 2024 Dr. Naresh Cuellar MD Other Provider Active Start : September 19, 2024 End: September 25, 2024 Team Status: Active Member Role/Relationship Status Dates Dr. Angelica Saleh MD Primary Care Provider Active Start: September 20, 2024 Dr. Иван Aranda DO Emergency Provider Activ e Start: September 20, 2024 Dr. Jose Zhang MD Admit Provider Active Sta rt: September 20, 2024 Dr. Jose Zhang MD Other Provider Active Sta rt: September 20, 2024 Dr. Humberto Thayer MD Other Provider Active Star t: September 20, 2024 Dr. Naresh Florez DO Attending Provider Active Start: September 20, 2024 Dr. Naresh Florez DO Other Provider Active Star t: September 20, 2024 Team Status: Active Member Role/Relationship Status Dates Dr. Angelica Saleh MD Primary Care Provider Active Start: September 20, 2024 Dr. Naresh Cuellar MD Attending Provider Active S tart: September 20, 2024 Dr. Humberto Thayer MD Referring Provider Active Start: September 20, 2024 Team Status: Active Member Role/Relationship Status Dates Dr. Angelica Saleh MD Primary Care Provider Active Start: September 21, 2024 Dr. Иван Aranda DO Emergency Provider Activ e Start: September 21, 2024 Dr. Jose Zhang MD Admit Provider Active Sta rt: September 21, 2024 Dr. Jose Zhang MD Other Provider Active Sta rt: September 21, 2024 Dr. Humberto Thayer MD Other Provider Active Star t: September 21, 2024 Dr. Naresh Florez DO Attending Provider Active Start: September 21, 2024 Dr. Naresh Florez DO Other Provider Active Star t: September 21, 2024 Dr. Naresh Cuellar MD Other Provider Active Start : September 21, 2024 Team Status: Active Member Role/Relationship Status Dates Dr. Angelica Saleh MD Primary Care Provider Active Start: September 21, 2024 Dr. Иван Aranda DO Emergency Provider Activ e Start: September 21, 2024 Dr. Jose Zhang MD Admit Provider Active Sta rt: September 21, 2024 Dr. Jose Zhang MD Other Provider Active Sta rt: September 21, 2024 Dr. Humberto Thayer MD Other Provider Active Star t: September 21, 2024 Dr. Naresh Florez DO Referring Provider Active Start: September 21, 2024 Dr. Naresh Florez DO Other Provider Active Star t: September 21, 2024 Dr. Naresh Cuellar MD Other Provider Active Start : September 21, 2024 MARIE Jimenez Attending Provider Active Star t: September 21, 2024 Team Status: Active Member Role/Relationship Status Dates Dr. Angelica Saleh MD Primary Care Provider Active Start: September 22, 2024 Dr. Иван Aranda DO Emergency Provider Activ e Start: September 22, 2024 Dr. Jose Zhang MD Admit Provider Active Sta rt: September 22, 2024 Dr. Jose Zhang MD Other Provider Active Sta rt: September 22, 2024 Dr. Humberto Thayer MD Other Provider Active Star t: September 22, 2024 Dr. Naresh Florez DO Attending Provider Active Start: September 22, 2024 Dr. Naresh Florez DO Other Provider Active Star t: September 22, 2024 Dr. Naresh Cuellar MD Other Provider Active Start : September 22, 2024 Team Status: Active Member Role/Relationship Status Dates Dr. Angelica Saleh MD Primary Care Provider Active Start: September 23, 2024 Dr. Иван Aranda DO Emergency Provider Activ e Start: September 23, 2024 Dr. Jose Zhang MD Admit Provider Active Sta rt: September 23, 2024 Dr. Jose Zhang MD Other Provider Active Sta rt: September 23, 2024 Dr. Humberto Thayer MD Other Provider Active Star t: September 23, 2024 Dr. Naresh Florez DO Attending Provider Active Start: September 23, 2024 Dr. Naresh Florez DO Other Provider Active Star t: September 23, 2024 Dr. Naresh Cuellar MD Other Provider Active Start : September 23, 2024 Team Status: Active Member Role/Relationship Status Dates Dr. Angelica Saleh MD Primary Care Provider Active Start: September 24, 2024 Dr. Иван Aranda DO Emergency Provider Activ e Start: September 24, 2024 Dr. Jose Zhang MD Admit Provider Active Sta rt: September 24, 2024 Dr. Jose Zhang MD Other Provider Active Sta rt: September 24, 2024 Dr. Humberto Thayer MD Other Provider Active Star t: September 24, 2024 Dr. Naresh lForez DO Attending Provider Active Start: September 24, 2024 Dr. Naresh Florez DO Other Provider Active Star t: September 24, 2024 Dr. Naresh Cuellar MD Other Provider Active Start : September 24, 2024 Team Status: Active Member Role/Relationship Status Dates Dr. Angelica Saleh MD Primary Care Provider Active Start: September 25, 2024 Dr. Иван Aranda DO Emergency Provider Activ e Start: September 25, 2024 Dr. Jose Zhang MD Admit Provider Active Sta rt: September 25, 2024 Dr. Jose Zhang MD Other Provider Active Sta rt: September 25, 2024 Dr. Humberto Thayer MD Other Provider Active Star t: September 25, 2024 Dr. Naresh Florez DO Attending Provider Active Start: September 25, 2024 Dr. Naresh Florez DO Other Provider Active Star t: September 25, 2024 Dr. Naresh Cuellar MD Other Provider Active Start : September 25, 2024 Team Status: Inactive Member Role/Relationship Status Dates Dr. Angelica Saleh MD Primary Care Provider Active Start: October 05, 2024 End: October 05, 2024 Dr. Angelica Saleh MD Referring Provider Active Start: October 05, 2024 End: October 05, 2024 Nishi Garnett [employer] Attending Provider Active Start: October 05, 2024 End: October 05, 2024 Team Status: Inactive Member Role/Relationship Status Dates Dr. Angelica Saleh MD Primary Care Provider Active Start: October 05, 2024 End: October 05, 2024 Nishi Garnett [employer] Attending Provider Active Start: October 05, 2024 End: October 05, 2024 Nishi Garnett [employer] Referring Provider Active Start: October 05, 2024 End: October 05, 2024 Team Status: Inactive Member Role/Relationship Status Dates Dr. Angelica Saleh MD Primary Care Provider Active Start: October 05, 2024 End: October 05, 2024 Aden Stahl MD Attending Provider Active Star t: October 05, 2024 End: October 05, 2024 Aden Stahl MD Emergency Provider Active Star t: October 05, 2024 End: October 05, 2024 Team Status: Active Member Role/Relationship Status Dates Dr. Angelica Saleh MD Primary Care Provider Active Start: October 19, 2024 Dr. Angelica Saleh MD Attending Provider Active Start: October 19, 2024 Dr. Angelica Saleh MD Referring Provider Active Start: October 19, 2024 Team Status: Inactive Member Role/Relationship Status Dates Dr. Angelica Saleh MD Primary Care Provider Active Start: October 19, 2024 End: October 19, 2024 Dr. Carroll Celeste MD Referring Provider Active S tart: October 19, 2024 End: October 19, 2024 Dr. Carroll Celeste MD Emergency Provider Active S tart: October 19, 2024 End: October 19, 2024 Source Comments (unrecognize d section and content) In the event this informatio n is protected by the Federal Confidentiality of Alcohol and Drug Abuse Patient Records regulations: The Federal rules restrict any use of the information to criminally investigate or prosecute any alcohol or drug abuse patient.[facility] the event this information is protected by the Federal Confidentiality of Alcohol and Drug Abuse Patient Records regulations: The Federal rules restrict any use of the information to criminally investigate or prosecute any alcohol or drug abuse patient.[facility] HospitalIn the event this information is protected by the Federal Confidentiality of Alcohol and Drug Abuse Patient Records regulations: The Federal rules restrict any use of the information to criminally investigate or prosecute any alcohol or drug abuse patient.[facility] HospitalIn the event this information is protected by the Federal Confidentiality of Alcohol and Drug Abuse Patient Records regulations: The Federal rules restrict any use of the information to criminally investigate or prosecute any alcohol or drug abuse patient.[facility] HospitalIn the event this information is protected by the Federal Confidentiality of Alcohol and Drug Abuse Patient Records regulations: The Federal rules restrict any use of the information to criminally investigate or prosecute any alcohol or drug abuse patient.[facility] HospitalIn the event this information is protected by the Federal Confidentiality of Alcohol and Drug Abuse Patient Records regulations: The Federal rules restrict any use of the information to criminally investigate or prosecute any alcohol or drug abuse patient.[facility] HospitalIn the event this information is protected by the Federal Confidentiality of Alcohol and Drug Abuse Patient Records regulations: The Federal rules restrict any use of the information to criminally investigate or prosecute any alcohol or drug abuse patient.[facility] HospitalIn the event this information is protected by the Federal Confidentiality of Alcohol and Drug Abuse Patient Records regulations: The Federal rules restrict any use of the information to criminally investigate or prosecute any alcohol or drug abuse patient.[facility] HospitalIn the event this information is protected by the Federal Confidentiality of Alcohol and Drug Abuse Patient Records regulations: The Federal rules restrict any use of the information to criminally investigate or prosecute any alcohol or drug abuse patient.[facility] HospitalIn the event this information is protected by the Federal Confidentiality of Alcohol and Drug Abuse Patient Records regulations: The Federal rules restrict any use of the information to criminally investigate or prosecute any alcohol or drug abuse patient.[facility] HospitalIn the event this information is protected by the Federal Confidentiality of Alcohol and Drug Abuse Patient Records regulations: The Federal rules restrict any use of the information to criminally investigate or prosecute any alcohol or drug abuse patient.[facility] HospitalIn the event this information is protected by the Federal Confidentiality of Alcohol and Drug Abuse Patient Records regulations: The Federal rules restrict any use of the information to criminally investigate or prosecute any alcohol or drug abuse patient.[facility] HospitalIn the event this information is protected by the Federal Confidentiality of Alcohol and Drug Abuse Patient Records regulations: The Federal rules restrict any use of the information to criminally investigate or prosecute any alcohol or drug abuse patient.[facility] HospitalIn the event this information is protected by the Federal Confidentiality of Alcohol and Drug Abuse Patient Records regulations: The Federal rules restrict any use of the information to criminally investigate or prosecute any alcohol or drug abuse patient.[facility] HospitalIn the event this information is protected by the Federal Confidentiality of Alcohol and Drug Abuse Patient Records regulations: The Federal rules restrict any use of the information to criminally investigate or prosecute any alcohol or drug abuse patient.[facility] HospitalIn the event this information is protected by the Federal Confidentiality of Alcohol and Drug Abuse Patient Records regulations: The Federal rules restrict any use of the information to criminally investigate or prosecute any alcohol or drug abuse patient.[facility] HospitalIn the event this information is protected by the Federal Confidentiality of Alcohol and Drug Abuse Patient Records regulations: The Federal rules restrict any use of the information to criminally investigate or prosecute any alcohol or drug abuse patient.[facility] HospitalIn the event this information is protected by the Federal Confidentiality of Alcohol and Drug Abuse Patient Records regulations: The Federal rules restrict any use of the information to criminally investigate or prosecute any alcohol or drug abuse patient.[facility] HospitalIn the event this information is protected by the Federal Confidentiality of Alcohol and Drug Abuse Patient Records regulations: The Federal rules restrict any use of the information to criminally investigate or prosecute any alcohol or drug abuse patient.[facility] HospitalIn the event this information is protected by the Federal Confidentiality of Alcohol and Drug Abuse Patient Records regulations: The Federal rules restrict any use of the information to criminally investigate or prosecute any alcohol or drug abuse patient.[facility] HospitalIn the event this information is protected by the Federal Confidentiality of Alcohol and Drug Abuse Patient Records regulations: The Federal rules restrict any use of the information to criminally investigate or prosecute any alcohol or drug abuse patient.[facility] HospitalIn the event this information is protected by the Federal Confidentiality of Alcohol and Drug Abuse Patient Records regulations: The Federal rules restrict any use of the information to criminally investigate or prosecute any alcohol or drug abuse patient.[facility] HospitalIn the event this information is protected by the Federal Confidentiality of Alcohol and Drug Abuse Patient Records regulations: The Federal rules restrict any use of the information to criminally investigate or prosecute any alcohol or drug abuse patient.[facility] HospitalIn the event this information is protected by the Federal Confidentiality of Alcohol and Drug Abuse Patient Records regulations: The Federal rules restrict any use of the information to criminally investigate or prosecute any alcohol or drug abuse patient.[facility] HospitalIn the event this information is protected by the Federal Confidentiality of Alcohol and Drug Abuse Patient Records regulations: The Federal rules restrict any use of the information to criminally investigate or prosecute any alcohol or drug abuse patient.[facility] HospitalIn the event this information is protected by the Federal Confidentiality of Alcohol and Drug Abuse Patient Records regulations: The Federal rules restrict any use of the information to criminally investigate or prosecute any alcohol or drug abuse patient.[facility] HospitalIn the event this information is protected by the Federal Confidentiality of Alcohol and Drug Abuse Patient Records regulations: The Federal rules restrict any use of the information to criminally investigate or prosecute any alcohol or drug abuse patient.[facility] HospitalIn the event this information is protected by the Federal Confidentiality of Alcohol and Drug Abuse Patient Records regulations: The Federal rules restrict any use of the information to criminally investigate or prosecute any alcohol or drug abuse patient.[facility] HospitalIn the event this information is protected by the Federal Confidentiality of Alcohol and Drug Abuse Patient Records regulations: The Federal rules restrict any use of the information to criminally investigate or prosecute any alcohol or drug abuse patient.[facility] HospitalIn the event this information is protected by the Federal Confidentiality of Alcohol and Drug Abuse Patient Records regulations: The Federal rules restrict any use of the information to criminally investigate or prosecute any alcohol or drug abuse patient.[facility] HospitalIn the event this information is protected by the Federal Confidentiality of Alcohol and Drug Abuse Patient Records regulations: The Federal rules restrict any use of the information to criminally investigate or prosecute any alcohol or drug abuse patient.[facility] HospitalIn the event this information is protected by the Federal Confidentiality of Alcohol and Drug Abuse Patient Records regulations: The Federal rules restrict any use of the information to criminally investigate or prosecute any alcohol or drug abuse patient.[facility] HospitalIn the event this information is protected by the Federal Confidentiality of Alcohol and Drug Abuse Patient Records regulations: The Federal rules restrict any use of the information to criminally investigate or prosecute any alcohol or drug abuse patient.[facility] HospitalIn the event this information is protected by the Federal Confidentiality of Alcohol and Drug Abuse Patient Records regulations: The Federal rules restrict any use of the information to criminally investigate or prosecute any alcohol or drug abuse patient.[facility] HospitalIn the event this information is protected by the Federal Confidentiality of Alcohol and Drug Abuse Patient Records regulations: The Federal rules restrict any use of the information to criminally investigate or prosecute any alcohol or drug abuse patient.[facility] HospitalIn the event this information is protected by the Federal Confidentiality of Alcohol and Drug Abuse Patient Records regulations: The Federal rules restrict any use of the information to criminally investigate or prosecute any alcohol or drug abuse patient.[facility] HospitalIn the event this information is protected by the Federal Confidentiality of Alcohol and Drug Abuse Patient Records regulations: The Federal rules restrict any use of the information to criminally investigate or prosecute any alcohol or drug abuse patient.[facility] HospitalIn the event this information is protected by the Federal Confidentiality of Alcohol and Drug Abuse Patient Records regulations: The Federal rules restrict any use of the information to criminally investigate or prosecute any alcohol or drug abuse patient.[facility] HospitalIn the event this information is protected by the Federal Confidentiality of Alcohol and Drug Abuse Patient Records regulations: The Federal rules restrict any use of the information to criminally investigate or prosecute any alcohol or drug abuse patient.[facility] HospitalIn the event this information is protected by the Federal Confidentiality of Alcohol and Drug Abuse Patient Records regulations: The Federal rules restrict any use of the information to criminally investigate or prosecute any alcohol or drug abuse patient.[facility] HospitalIn the event this information is protected by the Federal Confidentiality of Alcohol and Drug Abuse Patient Records regulations: The Federal rules restrict any use of the information to criminally investigate or prosecute any alcohol or drug abuse patient.[facility] HospitalIn the event this information is protected by the Federal Confidentiality of Alcohol and Drug Abuse Patient Records regulations: The Federal rules restrict any use of the information to criminally investigate or prosecute any alcohol or drug abuse patient.[facility] HospitalIn the event this information is protected by the Federal Confidentiality of Alcohol and Drug Abuse Patient Records regulations: The Federal rules restrict any use of the information to criminally investigate or prosecute any alcohol or drug abuse patient.[facility] HospitalIn the event this information is protected by the Federal Confidentiality of Alcohol and Drug Abuse Patient Records regulations: The Federal rules restrict any use of the information to criminally investigate or prosecute any alcohol or drug abuse patient.[facility] HospitalIn the event this information is protected by the Federal Confidentiality of Alcohol and Drug Abuse Patient Records regulations: The Federal rules restrict any use of the information to criminally investigate or prosecute any alcohol or drug abuse patient.[facility] HospitalIn the event this information is protected by the Federal Confidentiality of Alcohol and Drug Abuse Patient Records regulations: The Federal rules restrict any use of the information to criminally investigate or prosecute any alcohol or drug abuse patient.[facility] HospitalIn the event this information is protected by the Federal Confidentiality of Alcohol and Drug Abuse Patient Records regulations: The Federal rules restrict any use of the information to criminally investigate or prosecute any alcohol or drug abuse patient.[facility] HospitalIn the event this information is protected by the Federal Confidentiality of Alcohol and Drug Abuse Patient Records regulations: The Federal rules restrict any use of the information to criminally investigate or prosecute any alcohol or drug abuse patient.[facility] HospitalIn the event this information is protected by the Federal Confidentiality of Alcohol and Drug Abuse Patient Records regulations: The Federal rules restrict any use of the information to criminally investigate or prosecute any alcohol or drug abuse patient.[facility] HospitalIn the event this information is protected by the Federal Confidentiality of Alcohol and Drug Abuse Patient Records regulations: The Federal rules restrict any use of the information to criminally investigate or prosecute any alcohol or drug abuse patient.[facility] HospitalIn the event this information is protected by the Federal Confidentiality of Alcohol and Drug Abuse Patient Records regulations: The Federal rules restrict any use of the information to criminally investigate or prosecute any alcohol or drug abuse patient.[facility] HospitalIn the event this information is protected by the Federal Confidentiality of Alcohol and Drug Abuse Patient Records regulations: The Federal rules restrict any use of the information to criminally investigate or prosecute any alcohol or drug abuse patient.[facility] HospitalIn the event this information is protected by the Federal Confidentiality of Alcohol and Drug Abuse Patient Records regulations: The Federal rules restrict any use of the information to criminally investigate or prosecute any alcohol or drug abuse patient.[facility] HospitalIn the event this information is protected by the Federal Confidentiality of Alcohol and Drug Abuse Patient Records regulations: The Federal rules restrict any use of the information to criminally investigate or prosecute any alcohol or drug abuse patient.[facility] HospitalIn the event this information is protected by the Federal Confidentiality of Alcohol and Drug Abuse Patient Records regulations: The Federal rules restrict any use of the information to criminally investigate or prosecute any alcohol or drug abuse patient.[facility] HospitalIn the event this information is protected by the Federal Confidentiality of Alcohol and Drug Abuse Patient Records regulations: The Federal rules restrict any use of the information to criminally investigate or prosecute any alcohol or drug abuse patient.[facility] HospitalIn the event this information is protected by the Federal Confidentiality of Alcohol and Drug Abuse Patient Records regulations: The Federal rules restrict any use of the information to criminally investigate or prosecute any alcohol or drug abuse patient.[facility] HospitalIn the event this information is protected by the Federal Confidentiality of Alcohol and Drug Abuse Patient Records regulations: The Federal rules restrict any use of the information to criminally investigate or prosecute any alcohol or drug abuse patient.[facility] Reason for Visit (unrecogniz ed section and content) Reason Comments Appointment Reason Comments Established Patient Reason Comments New Patient Specialty Diagnoses / Procedures Referred By Contac t Referred To Contact Oncology Diagnoses Squamous cell carcinoma of left lung (HCC) Procedures CONSULT TO ONCOLOGY OFFICE/OUTPATIENT NEW HIGH MDM 60 MINUTES Tay Montiel MD [address] [place] [id number] Referral ID Status Reason Start Date Expiration Date V isits Requested Visits Authorized [id number] Closed PCP Requested Referral 04/07/2023 04/06/2024 1 1 Reason Comments Consult Specialty Diagnoses / Procedures Referred By Contac t Referred To Contact Radiation Oncology Diagnoses Squamous cell carcinoma of left lung (HCC) Procedures RAD/ONC CONSULT OFFICE/OUTPATIENT NEW HIGH MDM 60 MINUTES Tay Montiel MD [address] [place] [address] Referral ID Status Reason Start Date Expiration Date V isits Requested Visits Authorized [id number] Closed PCP Requested Referral 04/07/2023 04/06/2024 1 1 Reason Onset Date Comments Simulation Request Form 04/28/2023 Reason Comments Patient Education Specialty Diagnoses / Procedures Referred By Contac t Referred To Contact MR IMAGING Diagnoses Squamous cell carcinoma of left lung (HCC) Procedures MRI BRAIN WO/W IVCON MRI BRAIN BRAIN STEM W/O W/CONTRAST MATERIAL Tay Montiel MD [address] [place] [id number] [facility] [place] [address] Referral ID Status Reason Start Date Expiration Date V isits Requested Visits Authorized [id number] Closed Auto-Generate d Referral 05/07/2023 06/06/2023 1 1 Reason Comments Radiotherapy On-treatment Visit Reason Comments Recheck Reason Comments Established Patient Reason Comments Radiology CT Specialty Diagnoses / Procedures Referred By Contac t Referred To Contact CT IMAGING Diagnoses Malignant neoplasm of unspecified part of unspecified bronchus or lung (HCC) Procedures CT CHEST WO IVCON DIAGNOSTIC COMPUTED TOMOGRAPHY THORAX W/O CNTRST Va Dunaway MD [address] [place] [address] [place] [address] Referral ID Status Reason Start Date Expiration Date V isits Requested Visits Authorized [id number] Closed Auto-Generate d Referral 08/24/2023 09/23/2023 1 1 Reason Comments Recheck Specialty Diagnoses / Procedures Referred By Contac t Referred To Contact CT IMAGING Diagnoses Malignant neoplasm of unspecified part of unspecified bronchus or lung (HCC) Procedures CT CHEST W IVCON DIAGNOSTIC COMPUTED TOMOGRAPHY THORAX W/[place] [address] [place] [address] [place] [address] Referral ID Status Reason Start Date Expiration Date V isits Requested Visits Authorized [id number] Closed Auto-Generate d Referral 11/24/2023 08/14/2024 1 1 Reason Comments Appointment missed Specialty Diagnoses / Procedures Referred By Contac t Referred To Contact CT IMAGING Diagnoses Malignant neoplasm of unspecified part of unspecified bronchus or lung (HCC) Procedures CT CHEST WO IVCON DIAGNOSTIC COMPUTED TOMOGRAPHY THORAX W/[place] [address] [place] [id number] [place] [address] Referral ID Status Reason Start Date Expiration Date V isits Requested Visits Authorized [id number] Closed Auto-Generate d Referral 02/18/2024 04/18/2024 1 1 Reason Onset Date Comments Refill Request 03/31/2024 Reason Comments Refill Request Reason Comments Pain Left side back acros s back, chest pain below pectoral area x 1 month Reason Comments Pain Reason Comments Patient Update Reason Comments Patient Question Reason Comments Care Coordination Pain/Questions Reason Comments Orders Reason Comments Established Patient OV, review CT Reason Comments AVS 08/17 Reason Comments Patient Update Pain Reason Comments Future Appointment Reason Onset Date Comments Refill Request 10/03/2024 Reason Onset Date Comments Simulation Request Form 08/30/2024 Reason Comments Electronic Communication Goals (unrecognized section and content) Goals may be documented in a n alternate section FOR RECORDS PERTAINING TO PATIENTS WHO ARE OR HAVE BEEN ENROLLED IN A CHEMICAL DEPENDENCY/SUBSTANCEABUSE PROGRAM, SOME INFORMATION MAY BE OMITTED. This clinical summary was aggregated from multiple sources. Caution should be exercised in using it in the provision of clinical care. This summary normalizes information from multiple sources, and as a consequence, information in this document may materially change the coding, format and clinical context of patient data. In addition, data may be omitted in some cases. CLINICAL DECISIONS SHOULD BE BASED ON THE PRIMARY CLINICAL RECORDS. [employer] [facility]. provides no warranty or guarantee of the accuracy or completeness of information in this document.
--- OUTSIDE RECORDS SUMMARY | 2024-10-26 23:47 | XMS RPT_ITS | CCD ---
Author Organization [facility] Care Team Providers Care Pharmacy Technology Instructor Name Role Phone ELHAM KIM Admitting Unavailable ELHAM KIM Attending Unavailable ELHAM KIM Primary Care Unavailable ROMAIN BLACK DO Primary Care Physician [phone] ROMAIN BLACK DO Primary Care Physician [phone] Romain Bowling Unavailable Romain Black DO Primary Care Provider Gume PENA MD, Daes[place] Unavailable Gume PENA, Va Unavailable Brenda PENA, Valdemar Unavailable LATOSHA RENEE MD Attending UnavailROMAIN Costa DO Primary Care Unavailable LATOSHA RENEE MD Attending UnavailROMAIN Costa DO Primary Care Unavailable LATOSHA RENEE MD Attending UnavailROMAIN Costa DO Primary Care Unavailable LYUBOV DELGADO Attending Unavailab ROMAIN Khalil DO Primary Care Unavailable Romain Black DO Primary Care Provider [phone] Romain Black DO Primary Care Provider [phone] Lyubov Little CNP Unavailable [phone] Latosha Renee MD Unavailable [phone] Dr. Romain Black DO Referring Provider Dr. Peter Mohan MD Attending Provider Dr. Angelica Rodriguez MD Primary Care Provider [phone] Dr. Peter Mohan MD Referring Provider [phone] Aden Stahl MD Attending Provider Aden Stahl MD Emergency Provider Therese PENA, Dr. Ramírez Referring Provider Mateo STAFF ASSISTANT-C, Jaleesa Attending Provider Mateo STAFF ASSISTANT-C, Jaleesa Referring Provider Polo PENA, Dr. Infante Attending Provider Elliott BRADFORD, Dr. Rome Attending Provider Elliott BRADFORD, Dr. Rome Other Provider [phone] Víctor PENA, Dr. Latosha Ho Attending Provide r Víctor PENA, Dr. Latosha Ho Referring Provide r Booker PENA, Dr. Hodges Emergency Provider Booker PENA, Dr. Hodges Attending Provider Therese PENA, Dr. Ramírez Attending Provider Fernando PENA, Dr. Mathis Attending Provider Fernando PENA, Dr. Mathis Referring Provider Therese PENA, Dr. Ramírez Primary Care Provider [phone] Kimberlee PENA, Dr. Green Attending Provider [phone] Romain Black DO Referring Provider Therese PENA, Dr. Ramírez Primary Care Provider [phone] Dr. Brad Hou MD Attending Provider Dr. Brad Hou MD Referring Provider Dr. [...] Therese PENA, Dr. Ramírez Attending Provider Mateo STAFF ASSISTANT-C, Jaleesa Attending Provider Mateo STAFF ASSISTANT-C, Jaleesa Referring Provider Savi PENA, Dr. Salinas Attending Provider Savi PENA, Dr. Salinas Referring Provider Cale BRADFORD, Dr. Lima Emergency Provider [phone] Drake PENA, Dr. Smalls Admit Provider Drake PENA, Dr. Smalls Other Provider Vicente PENA, Dr. Garcia Attending Provider Jordan BRADFORD, Dr. Eid Other Provider [phone] Rose Mary PENA, Dr. Rivera Other Provider Av PENA, Dr. Goss Other Provider Dr. Anish Gaston MD Other Provider Jassi PENA, Dr. Lance Other Provider Omar BRADFORD, Dr. Daly Attending Provider Dr. Addy Nelson DO Other Provider Gregoria PENA, Dr. Kahlil De Luna Other Provider Ruba PENA, Dr. Maldonado Other Provider Thuan PENA, Dr. Melton Other Provider Brenda PENA, Dr. Charles Other Provider Sameer PENA, Dr. Salgado Other Provider Harris PENA, Dr. Ahn Other Provider Jg PENA, Dr. Dunbar Other Provider Yordan PENA, Dr. Holloway Other Provider Elia PENA, Dr. Soliman Other Provider Unavailabl harjinder Reyna MD, Dr. Munoz Other Provider [phone] Germán PENA, Dr. Varghese Other Provider Jacque PENA, Dr. Saini Other Provider [phone] Eder PENA, Dr. Hankins Other Provider Benita BRADFORD, Dr. Tolentino Other Provider [phone] Trish PENA, Dr. Sofia Other Provider [phone] Cheryl PENA, Dr. Livingston Other Provider [phone] Ruddy Sotelo DO Other Provider Jameel PENA, Dr. Mccord Other Provider Cody PENA, Dr. Pham Other Provider Dr. Stanton Ortega DO Attending Provider Dr. Peter Mohan MD Attending Provider Dr. Peter Mohan MD Referring Provider [phone] Brittany Izquierdo MD Attending Provider Dr. Jose Zhang MD Other Provider VALDEMAR GUTIERREZ Referring Unavailable VALDEMAR GUTIERREZ Referring Unavailable PROVIDER, UNKNOWN Referring Unavailable PROVIDER, UNKNOWN Admitting Unavailable PROVIDER, UNKNOWN Attending Unavailable PROVIDER, UNKNOWN Referring Unavailable Therese PENA, Dr. Ramírez Primary Care Provider Víctor PENA, Dr. Latosha oH Attending Provide r Víctor PENA, Dr. Latosha Ho Referring Provide r Therese PENA, Dr. Ramírez Referring Provider Drake PENA, Dr. Smalls Referring Provider Jordan BRADFORD, Dr. Eid Referring Provider Elliott DO, Dr. Rome Attending Provider Vicente PENA, Dr. Garcia Referring Provider [facility], Dr. Oates Emergency Provider Vicente PENA, Dr. Garcia Admit Provider Jeovany PENA, Dr. Paul Other Provider Dr. Naresh Florez DO Attending Provider Dr. Naresh Cuellar MD Other Provider Dr. Naresh Florez DO Other Provider Polo PENA, Dr. Infante Attending Provider Dr. Humberto Thayer MD Referring Provider Dr. Naresh Florez DO Referring Provider Ketty Kelley Attending Provider Ungerer STAFF ASSISTANT-C, Nishi Attending Provider [phone] Ungerer STAFF ASSISTANT-C, Nishi Referring Provider [phone] Aden Stahl MD Attending Provider Aden Stahl MD Emergency Provider Therese PENA, Dr. Ramírez Attending Provider Booker PENA, Dr. Hodges Referring Provider Booker PENA, Dr. Hodges Emergency Provider GEORGE PEREZ Referring Unavailable VALDEMAR GUTIERREZ Attending Unavailable VALDEMAR GUTIERREZ Referring Unavailable ROMAIN BLACK Primary Care Unavailable VALDEMAR GUTIERREZ Attending Unavailable ABRAMOVICAmerico, VALDEAMR Referring Unavailable SOFIA, ROMAIN F Primary Care [...] Referring Unavailable JAZLYN, JONH Attending Unavailable SHAWN MAST Referring Unavailable JAZLYN, JONH Attending Unavailable JAZLYN, [...] JONH Referring Unavailable JAZLYN, JONH Referring Unavailable Juan, Serina Admitting Unavailable Juan, Serina Consulting Unavailable Altamont, Angelica Primary Care Unavailable Vicente, Jose Attending Unavailable Stanton Ortega Consulting Unavailable Rose Mary, Romain Consulting Unavailable Therese, Angelica Primary Care Unavailable Humberto Thayer Consulting Unavailable Vicente, Jose Admitting Unavailable Naresh Florez Attending Unavailable Vicente, Joes Consulting Unavailable Naresh Cuellar Consulting Unavailable Elliott, Wild Attending Unavailable Altamont, Angelica Referring Unavailable Therese, Angelica Primary Care Unavailable Therese, Angelica Primary Care Unavailable Ungerer, Nishi Referring Unavailable Ungerer, Nishi Attending Unavailable Therese, Angelica Referring Unavailable Therese, Angelica Primary Care Unavailable [place]veland Naresh Attending Unavailable Therese, Angelica Primary Care Unavailable Juan, Serina Consulting Unavailable Juan, Serina Admitting Unavailable Stanton Ortega Referring Unavailable Addy Nelson Attending Unavailable Stanton Ortega Consulting Unavailable Stanton Ortega Attending Unavailable Vicente, Jose Attending Unavailable Rose Mary, Romain Consulting Unavailable Vicente, Jose Consulting Unavailable Altamont, Angelica Primary Care Unavailable Kimberlee, Holcomb Attending Unavailable Kimberlee, Holcomb Referring Unavailable Therese, Angelica Primary Care Unavailable Carroll Celeste Attending Unavailable Therese, Angelica Primary Care Unavailable Reodica Aden Attending Unavailable Altamont, Angelica Primary Care Unavailable Reodica, Aden Attending Unavailable Mateo, Jaleesa Attending Unavailable Mateo, Jaleesa Referring Unavailable Therese, Angelica Primary Care Unavailable Therese, Angelica Primary Care Unavailable Raghunathan, Latosha Na Attending Unavaila ble Raghunathan, Latosha Na Referring Unavaila ble MateoTereseJaleesa Attending Unavailable Therese, Angelica Primary Care Unavailable Mateo, Jaleesa Referring Unavailable Mateo Jaleesa Attending Unavailable Mateo, Jaleesa Referring Unavailable Therese, Angelica Primary Care Unavailable Friend, Wild Consulting Unavailable Friend, Wild Attending Unavailable Altamont, Angelica Referring Unavailable Altamont, Angelica Primary Care Unavailable Therese, Angelica Primary Care Unavailable Humberto Thayer Consulting Unavailable Naresh Florez Attending Unavailable Vicente, Jose Admitting Unavailable Vicente, Jose Consulting Unavailable Polo, Naresh Consulting Unavailable Jopperi, Naresh Consulting Unavailable Friend, Wild Attending Unavailable Vicente, Jose Referring Unavailable Jopperi, Naresh Referring Unavailable Ketty Chris Attending Unavailable Mateo, Jaleesa Attending Unavailable Therese, Angelica Referring Unavailable Altamont, Angelica Primary Care Unavailable Altamont, Angelica Primary Care Unavailable Altamont, Angelica Attending Unavailable Sofia Romain Referring Unavailable Therese, Angelica Primary Care Unavailable Kimberlee, Peter Attending Unavailable Sofia, Romain Referring Unavailable Mateo, Jaleesa Attending Unavailable Therese, Angelica Referring Unavailable Altamont, Angelica Primary Care Unavailable Altamont, Angelica Primary Care Unavailable Polo Naresh Attending Unavailable Humberto Thayer Referring Unavailable SaDel silverio Referring Unavailable Altamont, Angelica Primary Care Unavailable Del King Attending Unavailable Therese, Angelica Primary Care Unavailable Kimberlee, Holcomb Attending Unavailable Vicente, Jose Attending Unavailable Serina Juan Attending Unavailable Serina Juan Referring Unavailable Wolfgang Ley Consulting Unavailable Anish Gaston Consulting Unavailable Natalio Keene Consulting Unavailable Addy Nelson Consulting Unavailable Kahlil Kinney Consulting Unavailable Joel Yeh Consulting Unavailable Geronimo Larose Consulting Unavailable Araceli Gutierrez Consulting UnavailDamian Nielsen Consulting Unavailable Jimy Iglesias Consulting Unavailable Manjinder Gregorio Consulting Unavailable YordanAmie grant Consulting Unavailable Alalberto, Janny Consulting Unavailable ReynaTammy mcdermott Consulting Unavailable Germán, Abimael Consulting Unavailable Parveen Santillan Consulting Unavailable Eder, Cr Consulting Unavailable Dheanabelle, Rajan Consulting Unavailable Kimberlyn Chambers Consulting Unavailable Yara Luna Consulting Unavailable Ruddy Sotelo Consulting Unavailable Flex Jorgensen Consulting Unavailable Ankit Ross Consulting Unavailable Therese, Angelica Primary Care Unavailable Brittany Izquierdo Attending Unavailable Therese, Angelica Primary Care Unavailable Peter Mohan Attending Unavailable Peter Mohan Referring Unavailable Jaleesa Galindo Attending Unavailable Therese, Angelica Primary Care Unavailable Therese, Angelica Referring Unavailable Altamont, Angelica Primary Care Unavailable Nishi Garnett Attending Unavailable Altamont, Angelica Referring Unavailable Jaleesa Galindo Attending Unavailable Therese, Angelica Referring Unavailable Altamont, Angelica Primary Care Unavailable Altamont, Angelica Primary Care Unavailable Carroll Celeste Attending Unavailable Carroll Celeste Referring Unavailable Altamont, Angelica Primary Care Unavailable Sibilia Romain V Referring Unavailable Sibilia Romain V Attending Unavailable Therese, Angelica Referring Unavailable Altamont, Angelica Attending Unavailable Altamont, Angelica Primary Care Unavailable Therese, Angelica Primary Care Unavailable Raghunathan, Latosha Na Referring Unavaila ble Raghunathan, Latosha Na Attending Unavaila ble Therese, Angelica Primary Care Unavailable Altamont, Angelica Attending Unavailable Raghunathan, Latosha Na Referring Unavaila ble Raghunathan, Latosha Na Attending Unavaila ble Therese, Angelica Primary Care Unavailable Altamont, Angelica Primary Care Unavailable Altamont, Angelica Attending Unavailable Therese, Angelica Referring Unavailable Brad Hou Referring Unavailable Altamont, Angelica Primary Care Unavailable Brad Hou Attending Unavailable Dr. Angelica Rodriguez MD Primary Care Provider [phone] Jaleesa Matthews Attending Provider Víctor PENA, Dr. Latosha Ho Attending Provide r Dr. Latosha Renee MD Referring Provide r Dr. Angelica Rodriguez MD Referring Provider Dr. Carroll Celeste MD Attending Provider [phone] Otto PENA, Dr. Arora Emergency Provider Unavailab Dr. Kahlil Mccullough DO Admit Provider Unavail Dr. Kahlil Mahan DO Attending Provider Unav ailable Medications Current Medications Medication Drug Class(es) Dates Sig (Normalized) Sig (Original) acetaminophen 500 mg oral tablet (16 sources) Start: 09-25-2024 albuterol 0.83 mg/ml inhalation [...] 01-08-2023 Start: 09-13-2018 take 1 capsule by [facility] once daily aspirin 81 mg cap Take [...] DAY, # 90 tab(s), 3 Refill(s), Pharmacy: [facility], 177, cm, 05/29/21 9:12:00 EDT, Height, kg, 05/29/21 9:12:00 EDT, Dosing Weight Start Date: 07/18/21 Status: Ordered Start: 05-23-2020 atorvastatin 2 0 mg oral tablet Dose : 20 mg = 1 tab(s), Oral, qDay, TAKE 1 TABLET BY MOUTH EVERY DAY, # 90 tab(s), 3 Refill(s), Pharmacy: [facility], 179, cm, 05/23/20 10:00:00 EST, Height, kg, 05/23/20 10:00:00 EST, Dosing Weight Start Date: 05/23/20 Status: Ordered Comment on above: Take 20 mg by mouth once daily. cephalexin 500 mg oral capsu le (3 sources) Cephalosporin Antibacterial Start: 09-11-2024 dapagliflozin 5 mg oral tabl et (20 sources) Sodium-Glucose Cotransporter 2 Inhibitor Start: 12-02-2022 Start: 02-04-2022 take 1 tablet by konrad th once daily Farxiga 5 mg oral tablet See Instructions, TAKE 1 TABLET EVERY DAY, # 90 tab(s), 2 Refill(s), Pharmacy: [facility], 178, cm, 01/22/22 9:03:00 EST, Height, kg, 01/22/22 9:03:00 EST, Dosing Weight Start Date: 02/04/22 Status: Ordered Start: 07-06-2021 take 1 tablet by konrad th once daily Farxiga 5 mg oral tablet See Instructions, TAKE 1 TABLET EVERY DAY, # 90 tab(s), 1 Refill(s), Pharmacy: [facility], 177, cm, 05/29/21 9:12:00 EDT, Height, kg, 05/29/21 9:12:00 EDT, Dosing Weight Start Date: 07/06/21 Status: Ordered Start: 11-19-2020 take 1 tablet by konrad th once daily Farxiga 5 mg oral tablet See Instructions, TAKE 1 TABLET EVERY DAY, # 90 tab(s), 1 Refill(s), Pharmacy: [facility], 178, cm, 10/29/20 9:24:00 EDT, Height, kg, 10/29/20 9:24:00 EDT, Dosing Weight Start Date: 11/19/20 Status: Ordered Comment on above: Take 5 mg by mouth o nce daily. DME MISCellaneous (20 sources) Start: 06-26-2022 DME MISCellaneous See Instructions, true metrix meter kit, 1 kit no refills. E11.65, # 1 EA, 0 Refill(s), Pharmacy: [facility]/pharmacy #[id number], Uncontrolled type 2 diabetes mellitus, 178, cm, 06/11/22 9:39:00 EDT, Height, 100, kg, 06/11/22 9:39:00 EDT, Dosing Weight Start Date: 06/26/22 Status: Ordered Start: 02-09-2022 DME MISCellane ous See Instructions, True Metrix Blood Glucose Meter 1 kit for 12 months no refills. E11.65, # 1 EA, 0 Refill(s), Pharmacy: [facility], 178, cm, 01/22/22 9:03:00 EST, Height, 98.1, kg, 01/22/22 9:03:00 EST, Dosing Weight Start Date: 02/09/22 Status: Ordered Start: 12-17-2020 DME MISCellane ous See Instructions, true metrix test strips one strip 3 times daily and as needed #300 strips for 90 days and 1 refills.., # 1 EA, 0 Refill(s), Pharmacy: [facility], Uncontrolled type 2 diabetes mellitus, 178, cm, 11/28/20 9:24:00 EDT... Start Date: 12/17/20 Status: Ordered Start: 09-04-2020 DME MISCellane ous See Instructions, true metrix lancets, 1 lancet 3 times daily and as needed 1 box of 100 for 30 days and 3 refills., # 1 EA, 0 Refill(s), Pharmacy: [facility], Uncontrolled type 2 diabetes mellitus, 175.3, cm, 09/04/20 9:37:00 EDT,... Start Date: 09/04/20 Status: Ordered Start: 09-04-2020 DME MISCellane ous See Instructions, true metrix meter kit, 1 kit no refills., # 1 EA, 0 Refill(s), Pharmacy: [facility], Uncontrolled type 2 diabetes mellitus, 175.3, cm, 09/04/20 9:37:00 EDT, Height, 98, kg, 09/04/20 9:37:00 EDT, Dosing Weight Start Date: 09/04/20 Status: Ordered docusate sodium 50 mg / sennosides, longterm 8.6 mg oral tablet (3 sources) Start: 09-11-2024 esomeprazole 40 mg delayed release oral capsule (4 sources) Proton Pump Inhibitor Start: 09-04-2024 Bptkaimjgkv-Monakzase-Oreqxs er (15 sources) Anticholinergic, Corticosteroid, beta2-Adrenergic Agonist Start: 01-08-2023 [...] INH INHALATION DAILY January 08, 2023 12:00am [id number] ER INHALATION (20 sources) FLUTICASONE-UMEC LIDIN-VILANTER INHALATION [...] lispro protamine, human 75 unt/ml pen injector (18 sources) Insulin Analog Start: 09-04-2024 Start: 09-04-2024 [...] daily. lidocaine 0.05 mg/mg medicat ed patch (13 sources) Antiarrhythmic, Amide Local Anesthetic Start: 09-25-2024 [...] DAY, # 180 tab(s), 3 Refill(s), Pharmacy: [facility], 177, cm, 05/29/21 9:12:00 EDT, Height, kg, 05/29/21 9:12:00 EDT, Dosing Weight Start Date: 05/30/21 Status: Ordered Start: 05-23-2020 Metoprolol Tar trate 50 mg oral tablet Dose : 50 mg = 1 tab(s), Oral, BID, TAKE 1 TABLET BY MOUTH TWICE A DAY, # 180 tab(s), 3 Refill(s), Pharmacy: [facility], 179, cm, 05/23/20 10:00:00 EST, Height, kg, 05/23/20 10:00:00 EST, Dosing Weight Start Date: 05/23/20 Status: Ordered Comment on above: Take 50 mg by mouth once daily. midodrine hydrochloride 5 mg oral tablet (4 sources) alpha-Adrenergic Agonist Start: 09-25-2024 End: 10-06-2024 oxyCODONE hydrochloride 10 m g oral tablet (20 sources) Opioid Agonist Start: 10-16-2024 Start: 09-04-2024 End: 10-16-2024 Start: 08-17-2024 End: 09-01-2024 take 1 tablet [...] qDay, # 90 tab(s), 3 Refill(s), Pharmacy: [facility], 177, cm, 05/29/21 9:12:00 EDT, Height Start Date: 06/24/21 Status: Ordered Start: 05-10-2020 End: 05-05-2021 PARoxetine 10 mg oral tablet Dose : 10 mg = 1 tab(s), Oral, qDay, X 90 day(s), # 90 tab(s), 3 Refill(s), 05/05/21 22:09:00 EST, Pharmacy: [facility], 179, cm, 04/25/20 8:58:00 EST, Height, kg, 04/25/20 8:58:00 EST, Dosing Weight Start Date: 05/10/20 Stop Date: 05/05/21 Status: Ordered Comment on above: Take 10 mg by mouth once daily. microencapsulated potassium chloride 20 meq extended release oral tablet (5 sources) Start: 10-19-2024 Start: 09-11-2024 End: 09-25-2024 [...] QID, # 120 cap(s), 4 Refill(s), Pharmacy: [facility], Polyneuropathy, 178, cm, 01/22/22 9:03:00 EST, Height, 98.1, kg, 01/22/22 9:03:00 EST, Dosing Weight Start Date: 01/22/22 Stop Date: 06/21/22 Status: Ordered Start: 07-22-2021 End: 01-18-2022 Lyrica 150 mg oral capsule D ose : 150 mg = 1 cap(s), Oral, QID, # 360 cap(s), 1 Refill(s), Pharmacy: [facility], Polyneuropathy, 177, cm, 05/29/21 9:12:00 EDT, Height, 99.4, kg, 05/29/21 9:12:00 EDT, Dosing Weight Start Date: 07/22/21 Stop Date: 01/18/22 Status: Ordered Start: 01-02-2021 End: 06-01-2021 Lyrica 150 mg oral capsule D ose : 150 mg = 1 cap(s), Oral, QID, # 120 cap(s), 4 Refill(s), Pharmacy: [facility], Polyneuropathy, 178, cm, 01/02/21 [...] week, # 120 cap(s), 4 Refill(s), Pharmacy: [facility], Diabetic neuropathy, painful, 17... Start Date: 09/04/20 Status: Ordered Comment on above: Take 150 mg by mouth once daily. roflumilast 0.25 mg oral tablet (20 sources) Phosphodiesterase 4 Inhibitor Start: 02-02-20 take 1 tablet by mouth once daily [...] MEDICATIONS., # 90 tab(s), 1 Refill(s), Pharmacy: [facility], 178, cm, 11/12/22 9:17:00 EDT, Height, kg, 11/12/22 9:17:00 EDT, Dosing Weight Start Date: 12/01/22 Status: Ordered Start: 03-16-2022 take 1 tablet by konrad th once daily Rybelsus 14 mg oral tablet See Instructions, TAKE 1 TABLET EVERY DAY AT LEAST 30 MINUTES BEFORE FIRST FOOD, BEVERAGE OR OTHER ORAL MEDICATIONS., # 90 tab(s), 1 Refill(s), Pharmacy: [facility], 178, cm, 01/22/22 9:03:00 EST, Height, kg, 01/22/22 9:03:00 ES... Start Date: 03/16/22 Status: Ordered Start: 09-18-2021 take 1 tablet by konrad th once daily Rybelsus 14 mg oral tablet See Instructions, TAKE 1 TABLET EVERY DAY AT LEAST 30 MINUTES BEFORE FIRST FOOD, BEVERAGE OR OTHER ORAL MEDICATIONS., # 90 tab(s), 1 Refill(s), Pharmacy: [facility] ([facility]), 177, cm, 09/18/21 8:45:00... Start Date: 09/18/21 Status: Ordered Start: 03-14-2021 take 1 tablet by konrad th once daily Rybelsus 14 mg oral tablet See Instructions, TAKE 1 TABLET EVERY DAY AT LEAST 30 MINUTES BEFORE FIRST FOOD, BEVERAGE OR OTHER ORAL MEDICATIONS., # 90 tab(s), 1 Refill(s), Pharmacy: [facility], 179, cm, 01/28/21 10:55:00 EST, Height, kg, 01/28/21 10:55:00 EST,... Start Date: 03/14/21 Status: Ordered Start: 09-25-2020 take 1 tablet by konrad once daily Rybelsus 14 mg oral tablet See Instructions, TAKE 1 TABLET EVERY DAY AT LEAST 30 MINUTES BEFORE FIRST FOOD, BEVERAGE OR OTHER ORAL MEDICATIONS, # 30 tab(s), 5 Refill(s), Pharmacy: [facility], 175.3, cm, 09/04/20 9:37:00 [...] Start: 01-08-2023 take 1 capsule by mo [facility] every twenty-four hours Tamsulosin 0.4 mg capsule [...] MEAL, # 180 cap(s), 3 Refill(s), Pharmacy: [facility] ([facility] ), 178, cm, 06/11/22 9:39:00 EDT, Height, kg, 06/11/22 9:39:00 EDT, Dosing Weight Start Date: 07/20/22 Status: Ordered Start: 09-17-2021 take 2 capsules by m outh once daily at mealtime tamsulosin 0.4 mg oral capsule See Instructions, TAKE 2 CAPSULES BY MOUTH EVERY DAY WITH A MEAL, # 180 cap(s), 3 Refill(s), Pharmacy: [facility] ([facility]), 177, cm, 05/29/21 9:12:00 EDT, Height, kg, 05/29/21 9:12:00 EDT, Dosing Weight Start Date: 09/17/21 Status: Ordered Start: 08-28-2020 take 2 capsules by m outh once daily at mealtime tamsulosin 0.4 mg oral capsule See Instructions, TAKE 2 CAPSULES BY MOUTH EVERY DAY WITH A MEAL, # 180 cap(s), 3 Refill(s), Pharmacy: [facility], 179, cm, 06/24/20 11:19:00 [...] qDay, # 100 cap(s), 1 Refill(s), Pharmacy: [facility] ([facility]), 177, cm, 09/18/21 8:45:00 EDT, Height, kg, 09/18/21 8:45:00 EDT, Dosing Weight Start Date: 09/18/21 Status: Ordered Start: 12-17-2020 Vitamin D3 125 mcg (5000 intl units) oral capsule Dose : 5,000 International_Unit = 1 cap(s), Oral, qDay, # 100 cap(s), 1 Refill(s), Pharmacy: [facility], 178, cm, 11/28/20 9:24:00 EDT, Height, kg, 11/28/20 9:24:00 EDT, Dosing Weight Start Date: 12/17/20 Status: Ordered (16 sources) Start: 10-24-2024 Start: 09-04-2024 Start: 07-24-2024 End: 09-04-2024 Start: 01-08-2023 Start: 01-08-2023 End: 07-24-2024 Completed/Discontinued Medications Medication Drug Class(es) Dates Sig (Normalized) Sig (Original) acetaminophen 325 mg / HYDROcodone bitartrate 5 mg oral tablet (20 sources) Opioid Agonist Start: 06-19-2024 End: 06-22-2024 Start: 06-19-2024 End: 06-22-2024 Hydrocodone-Acetaminophen 5- 325 mg tablet Discontinued 1 {tbl} PO EVERY 6 HOURS NEEDED as needed for pain 02 14June 19, 2024 June 21, 2024 12:00am June 22, 2024 12:11am Start: 05-31-2024 End: 06-17-2024 Hydrocodone-Acetaminophen 5- 325 mg tablet Discontinued 1 {tbl} PO EVERY 6 HOURS NEEDED as needed for pain 02 14June 14, 2024 June 16, 2024 12:00am June 17, 2024 12:22am Start: 05-24-2024 End: 06-17-2024 Start: 05-24-2024 End: 05-31-2024 take 1-2 tablets by mouth every four to six hours as needed, then take 8 tablets by mouth once daily as needed Hydrocodone-Acetaminophen 5-325 mg table t Discontinued 1 {tbl} PO EVERY 4-6 HOURS as needed for pain 56 7 May 24, 2024 May 30, 2024 12:00am May 31, 2024 12:21am take 1-2 tabs PO q4-6h PRN, not to exceed 8 tablets daily Start: 05-10-2024 End: 05-13-2024 Start: 05-10-2024 End: 05-13-2024 Hydrocodone-Acetaminophen 5- 325 mg tablet Discontinued 1 {tbl} PO EVERY 6 HOURS as needed for pain 12 3 May 10, 2024 May 12, 2024 1:00am May 13, 2024 1:23am fluconazole 200 mg oral tabl et (14 sources) Azole Antifungal Start: 06-23-2024 End: 09-04-2024 furosemide 40 mg oral tablet (20 sources) Loop Diuretic Start: 07-21-2022 End: 09-25-2024 Start: 05-07-2022 furosemide 40 mg oral tablet Dose : 40 mg = 1 tab(s), Oral, qDay, TAKE 1 TABLET BY MOUTH EVERY DAY, # 90 tab(s), 3 Refill(s), Pharmacy: [facility], 180.3, cm, 05/07/22 9:04:00 EST, Height, kg, 05/07/22 9:04:00 EST, Dosing Weight Start Date: 05/07/22 Status: Ordered Start: 05-30-2021 furosemide 40 mg oral tablet Dose : 40 mg = 1 tab(s), Oral, qDay, TAKE 1 TABLET BY MOUTH EVERY DAY, # 90 tab(s), 3 Refill(s), Pharmacy: [facility], 177, cm, 05/29/21 9:12:00 EDT, Height, kg, 05/29/21 9:12:00 EDT, Dosing Weight Start Date: 05/30/21 Status: Ordered Start: 05-23-2020 furosemide 40 mg oral tablet Dose : 40 mg = 1 tab(s), Oral, qDay, TAKE 1 TABLET BY MOUTH EVERY DAY, # 90 tab(s), 3 Refill(s), Pharmacy: [facility], 179, cm, 05/23/20 10:00:00 [...] mg oral tablet (20 sources) Benzodiazepine Start: 03-02-2024 End: 09-11-2024 Start: 03-03-2023 take 1 tablet by konrad th once daily LORazepam (ATIVAN) 1 mg tablet Take 1 mg by mouth once daily. 03/03/2023 Active Start: 01-08-2023 End: 09-11-2024 Start: 01-08-2023 End: 09-11-2024 Start: 11-12-2022 End: [...] anxiety, # 90 tab(s), 1 Refill(s), Pharmacy: [facility], Chronic anxiety, 170, [...] anxiety, # 90 tab(s), 1 Refill(s), Pharmacy: [facility] (Now [facility]), Chronic anxiety, 177, [...] anxiety, # 90 tab(s), 1 Refill(s), Pharmacy: [facility], Chronic anxiety, 179, cm, 01/28/21 10:55:00 EST, Height, 97.1, kg, 01/28/21 10:55:00 EST, Dosing Weight Start Date: 01/28/21 Stop Date: 03/29/21 Status: Ordered Start: 10-29-2020 End: 12-28-2020 take 0.5-1 tablets by mouth three times daily as needed for anxiety LORazepam 1 mg oral tablet 0.5 to 1 tab, Oral, TID, PRN as needed for anxiety, # 90 tab(s), 1 Refill(s), Pharmacy: [facility], Chronic anxiety, 178, cm, 10/29/20 [...] qHS, # 90 tab(s), 3 Refill(s), Pharmacy: [facility], 178.5, cm, 03/11/23 8:41:00 EST, [...] qHS, # 90 tab(s), 3 Refill(s), Pharmacy: [facility]/pharmacy #[id number], 178, cm, 11/04/22 8:57:00 EDT, Height, kg, 11/04/22 8:57:00 EDT, Dosing Weight Start Date: 11/09/22 Status: Ordered Start: 02-04-2022 metFORMIN 500 mg oral tablet EXTENDED RELEASE Dose : 1,500 mg = 3 tab(s), Oral, qHS, # 270 tab(s), 3 Refill(s), Pharmacy: [facility], 178, cm, 01/22/22 [...] qHS, # 270 tab(s), 3 Refill(s), Pharmacy: [facility], 175.3, cm, 09/04/20 9:37:00 EDT, Height, kg, 09/04/20 9:37:00 EDT, Dosing Weight Start Date: 09/04/20 Status: Ordered Comment on above: Take 500 mg by mouth once daily. nystatin [id number] unt/ml oral suspension (12 sources) Polyene Antifungal Start: 5 End: pantoprazole 40 mg delayed release oral tablet (13 sources) Proton Pump Inhibitor Start: End: Semaglutide (Rybelsus) 14 mg tablet (3 sources) Start: 5 End: take 1 tablet by mouth once daily [...] 12:00am traMADol hydrochloride 50 mg oral tablet (13 sources) Opioid Agonist Start: 05-10-2024 End: 05-10-2024 VITAMIN D3 125 MCG (5000 UT) Capsule (3 sources) Start: 11-19-2020 VITAMIN D3 125 MCG (5000 UT) Capsule VITAMIN D3 125 MCG (5000 UT) Capsule, See Instructions, TAKE 1 CAPSULE EVERY DAY, # 90 cap(s), 0 Refill(s), Pharmacy: [facility], 178, cm, 10/29/20 9:24:00 [...] left common iliac Bacterial infection; unspecified site (8 sources) Bacteremia due to Staphylococcus aureus; Translations: [Bacteremia] Onset: 09-27-2024 09-07-2024 Episodic Blindness and vision defects (13 sources) Blindness AND/OR vision impairment level; Translations: [Unspecified visual loss] 03-02-2024 Chronic Comment on above: PARTIALLY IN RIGHT E YE Cancer of bronchus; lung (20 sources) Primary malignant neoplasm of upper lobe, bronchus or lung; Translations: [Malignant neoplasm of upper lobe, bronchus or lung] Onset: 02-18-2024 10-10-2019 Chronic Cancer of bronchus; lung (3 sources) History of malignant neoplasm of thoracic [...] Coronary arteriosclerosis; Translations: [Atherosclerotic heart disease of [place] coronary artery without angina pectoris] Onset: 04-24-2024 09-13-2018 Chronic Deficiency and other anemia (13 sources) Anemia; Translations: [Anemia, unspecified] 09-04-2024 Episodic Deficiency and other anemia (2 sources) Chronic anemia; Translations: [Anemia, unspecified] 10-19-2024 Episodic [...] [Acute hyponatremia] Onset: 09-27-2024 09-13-2018 Episodic Gangrene (6 sources) Atherosclerosis of [place] arteries of extremities with gangrene, left leg; Translations: [Atherosclerosis of left lower extremity with gangrene] Onset: 10-10-2024 09-21-2024 Chronic Gangrene (8 sources) Gangrene of left foot; Translations: [Gangrene, not elsewhere classified] Onset: 10-05-2024 09-20-2024 Episodic Genitourinary symptoms and ill-defined conditions (16 sources) Slowing of urinary stream; Translations: [H/O: kidney disease] 10-10-2019 Episodic Comment on above: STAGE 3 Hyperplasia of prostate (7 sources) Benign prostatic hyperplasia; Translations: [Benign prostatic hyperplasia without lower urinary tract symptoms] 06-14-2024 Chronic Malaise and fatigue (8 sources) Asthenia; Translations: [Weakness] Onset: 09-27-2024 09-04-2024 Episodic Malignant neoplasm without specification of site (20 sources) Malignant neoplastic disease; Translations: [Malignant (primary) neoplasm, unspecified] 03-02-2024 Chronic Comment on above: LUNG/RIGHT UPPER LOB ECTOMY Mood disorders (13 sources) Depressive disorder; Translations: [Depression] 03-02-2024 Chronic [...] than malignant neoplasm] 06-23-2023 Episodic Other aftercare (4 sources) Post-discharge follow-up; Translations: [Encounter for follow-up examination after completed treatment for conditions other than malignant neoplasm] 10-05-2024 Episodic Other aftercare (1 source) Encounter for follow-up examination after completed treatment for conditions other than malignant neoplasm; Translations: [Encounter for follow-up examination after completed treatment for conditions other than malignant neoplasm] Onset: 10-05-2024 Episodic Other circulatory disease (6 sources) Low blood pressure; Translations: [Hypotension, unspecified] 10-19-2024 Episodic Other circulatory disease (2 sources) Hypotension, unspecified; Translations: [Hypotension, unspecified] Onset: 10-19-2024 Episodic Other connective tissue disease (4 sources) Recurrent falls ; Translations: [Repeated falls] 09-04-2024 Episodic Other endocrine disorders (2 sources) Disorder of adrenal gland; Translations: [Other specified disorders of adrenal gland] Chronic Other endocrine disorders (20 sources) Adrenal mass; Translations: [Other specified disorders of adrenal gland] 03-02-2024 Chronic Other gastrointestinal disorders (12 sources) Adrenal mass 10-10-2019 Episodic Other gastrointestinal disorders (4 sources) Incontinence of feces 09-29-2021 Episodic Other lower respiratory disease (13 sources) Dyspnea on exertion; Translations: [Shortness of breath] 03-02-2024 Episodic Comment on above: WITH [address] AIRS OR WITH EXERTION Other lower respiratory disease (2 sources) History of chronic obstructive airway disease; Translations: [Personal history of other diseases of the respiratory system] 10-19-2024 Episodic Other nervous system disorders (12 sources) Polyneuropathy 02-05-2020 Chronic Other nervous system disorders (13 sources) Neuropathy; Translations: [Polyneuropathy, unspecified] 03-02-2024 Chronic Comment on above: ON LYRICA Other nervous system disorders (1 source) Other chronic pain; Translations: [Other chronic pain] Onset: 06-14-2024 Chronic Other nutritional; endocrine; and metabolic disorders (3 sources) Obesity 11-12-2022 Chronic Other nutritional; endocrine; and metabolic disorders (12 sources) Weight decreased; Translations: [Abnormal weight loss] 07-24-2024 Episodic Other nutritional; endocrine; and metabolic disorders (2 sources) H/O: diabetes mellitus; Translations: [Personal history of other endocrine, nutritional and metabolic disease] 10-19-2024 Episodic Other screening for suspected conditions (not mental disorders or infectious disease) (5 sources) Protein level - finding; Translations: [Other [...] caused by tuberculosis or sexually transmitted disease) (9 sources) Pneumonia; Translations: [Pneumonia, unspecified organism] Onset: [...] Onset: 08-30-2024 Chronic Septicemia (except in labor) (16 sources) Sepsis; Translations: [Sepsis, unspecified organism] Onset: 09-27-2024 09-04-2024 Episodic Shock (1 source) Severe sepsis with septic shock; Translations: [Severe sepsis with septic shock] Onset: 09-27-2024 Episodic Spondylosis; intervertebral disc disorders; other back problems (20 sources) Backache; Translations: [Dorsalgia, unspecified] Onset: 05-10-2024 05-10-2024 Episodic Substance-related disorders (12 sources) Tobacco dependence syndrome 09-13-2018 Chronic Syncope (14 sources) Syncope; Translations: [Syncope and collapse] Onset: 03-22-2024 03-02-2024 Episodic Comment on above: WITH BRISK OF CHANGE OF POSITION Unclassified (11 sources) Finding of systemic arterial [...] Translations: [Shortness of breath] Onset: 03-22-2024 Episodic Results Test Name Value Interpretation Reference Range Facility Absolute lymphocyte countOrd ered By: Maite Menjivar on 10-26-2024 Lymphocytes Auto (Unsp spec) [#/Vol] 1.79 10*3/uL 0.83-4.51 [facility] Anion gap in Serum or Plasma Ordered By: Maite Menjivar on 10-26-2024 Anion gap [Moles/Vol] 11 mmol/L 5-15 [facility] Automated lymphocyte count a s percentage of total leukocytesOrdered By: Maite Menjivar on 10-26-2024 Lymphocytes/100 WBC Auto (Unsp spec) 9.2 % Low 19-41 [facility] BUN/creatinine ratioOrdered By: Maite Menjivar on 10-26-2024 Urea nitrogen/Creatinine [Mass ratio] 13.9 mg/mg 10-20 [facility] Basophil percentageOrdered B y: Maite Mejnivar on 10-26-2024 Basophils/100 WBC (Bld) 0.1 % 0-1 [facility] Bilirubin directOrdered By: Maite Menjivar on 10-26-2024 Bilirubin.direct [Mass/Vol] 0.18 mg/dL 0.00-0.30 [facility] Bilirubin, totalOrdered By: Maite Menjivar on 10-26-2024 Bilirubin [Mass/Vol] 0.33 mg/dL 0.00-1.30 [facility] CO2 (BldV) [Moles/Vol]Ordere d By: Maite Menjivar on 10-26-2024 CO2 [Moles/Vol] 36 mmol/L High 23-33 [facility] Carbon dioxide, total [Moles /volume] in Central venous bloodOrdered By: Maite Menjivar on 10-26-2024 CO2 [Moles/Vol] 28.6 mmol/L 21.0-32.0 [facility] Chloride assayOrdered By: Jama Menjivar on 10-26-2024 Chloride [Moles/Vol] 98 mmol/L 98-108 [facility] Eosinophil percentageOrdered By: Maite Menjivar on 10-26-2024 Eosinophils/100 WBC (Bld) 0.2 % 0-5 [facility] Erythrocyte distribution wid th ratioOrdered By: Maite Menjivar on 10-26-2024 Erythrocyte distribution width (RBC) [Ratio] 17.2 % High 11.6-14.6 [facility] Erythrocyte distribution wid th standard deviationOrdered By: Maite Menjivar on 10-26-2024 Erythrocyte distribution width (RBC) [Ratio] 54.4 fl High 35.1-43.9 [facility] Glomerular filtration rate ( GFR) estimation/1.73 sq m using serum, plasma, or whole bOrdered By: Maite Menjivar on 10-26-2024 GFR/1.73 sq M.predicted among non-blacks MDRD (S/P/Bld) [Vol rate/Area] 77 mL/min/{1.73_m2} >60 [facility] Hematocrit Auto (Bld) [Volum e fraction]Ordered By: Maite Menjivar on 10-26-2024 Hematocrit (Bld) [Volume fraction] 30.2 % Low 40-54 [facility] Hemoglobin measurementOrdere d By: Maite Menjivar on 10-26-2024 Hemoglobin (Bld) [Mass/Vol] 9.1 g/dL Low 13.0-16.5 [facility] Immature granulocytes/100 WB C Auto (Bld)Ordered By: Maite Menjivar on 10-26-2024 Immature granulocytes/100 WBC (Bld) 1.000 % High 0.0-0.9 [facility] MCV (mean corpuscular volume ) determinationOrdered By: Maite Menjivar on 10-26-2024 MCV (RBC) [Entitic vol] 86.5 fL 80-94 [facility] Mean corpuscular hemoglobin (MCH) determinationOrdered By: Maite Menjivar on 10-26-2024 MCH (RBC) [Entitic mass] 26.1 pg Low 27.0-32.0 [facility] Monocyte percentageOrdered B y: Maite Menjivar on 10-26-2024 Monocytes/100 WBC (Bld) 4.5 % 0-10 [facility] Natriuretic peptide.B prohor nico N-Terminal [Mass/volume] in Serum or PlasmaOrdered By: Maite Menjivar on 10-26-2024 Natriuretic peptide.B prohormone N-Terminal [Mass/Vol] 1693 pg/mL High <900 [facility] Neutrophil percentageOrdered By: Maite Menjivar on 10-26-2024 Neutrophils/100 WBC (Bld) 85.0 % High 47-70 [facility] No Panel InformationOrdered By: Maite Menjivar on 10-26-2024 FRANCY [facility] Not entered [facility] 17 U/L <38 [facility] Platelet countOrdered By: Jama Menjivar on 10-26-2024 Platelets (Bld) [#/Vol] 297 10*3/uL 150-450 [facility] Potassium measurement (mass/ volume)Ordered By: Maite Menjivar on 10-26-2024 Potassium (Unsp spec) [Mass/Vol] 3.5 mmol/L 3.3-5.1 [facility] RBC Auto (Bld) [#/Vol]Ordere d By: Maite Menjivar on 10-26-2024 RBC (Bld) [#/Vol] 3.49 10*6/uL Low 4.6-6.2 [facility] Serum creatinine measurement (mass/volume)Ordered By: Maite Menjivar on 10-26-2024 Creatinine [Mass/Vol] 1.05 mg/dL 0.70-1.20 [facility] Serum globulin measurementOr dered By: Maite Menjivar on 10-26-2024 Globulin (S) [Mass/Vol] 3.7 g/dL 2.2-4.2 [facility] Serum glucose measurement (m ass/volume)Ordered By: Maite Menjivar on 10-26-2024 Glucose [Mass/Vol] 136 mg/dL High 70-99 [facility] Serum or plasma alanine delaney otransferase (ALT) measurementOrdered By: Maite Menjivar on 10-26-2024 ALT [Catalytic activity/Vol] 24 U/L <47 [facility] Serum or plasma albumin alfreda urement (mass/volume)Ordered By: Maite Menjivar on 10-26-2024 Albumin [Mass/Vol] 2.8 g/dL Low 3.4-4.8 [facility] Serum or plasma alkaline debby sphatase measurementOrdered By: Maite Menjivar on 10-26-2024 ALP [Catalytic activity/Vol] 118 U/L 40-129 [facility] Serum or plasma calcium alfreda urement (mass/volume)Ordered By: Maite Menjivar on 10-26-2024 Calcium [Mass/Vol] 14.1 mg/dL High 7.6-11.0 [facility] Serum or plasma urea nitroge n measurement (mass/volume)Ordered By: Maite Menjivar on 10-26-2024 Urea nitrogen [Mass/Vol] 15 mg/dL 4-19 [facility] Sodium levelOrdered By: Naresh Menjivar on 10-26-2024 Sodium [Moles/Vol] 138 mmol/L 133-145 [facility] Total proteinOrdered By: Sandhya Menjivar on 10-26-2024 Protein [Mass/Vol] 6.5 g/dL 5.9-8.4 [facility] Troponin T.cardiac [Mass/vol ume] in Serum or Plasma by High sensitivity methodOrdered By: Maite Menjivar on 10-26-2024 Troponin T.cardiac High sensitivity method [Mass/Vol] 84 ng/L High <22 [facility] Troponin T.cardiac High sensitivity method [Mass/Vol] 82 ng/L High <22 [facility] Troponin T.cardiac High sensitivity method [Mass/Vol] 86 ng/L High <22 [facility] Venous blood base excess joe surementOrdered By: Maite Menjivar on 10-26-2024 Base excess Calc (BldV) [Moles/Vol] 11 mmol/L High -1.0-3.5 [facility] Venous blood bicarbonate joe surementOrdered By: Maite Menjivar on 10-26-2024 HCO3 (Bld) [Moles/Vol] 35 mmol/L High 22-26 [facility] Venous blood pH measurementO rdered By: Maite Menjivar on 10-26-2024 pH (BldV) 7.48 [pH] High 7.32-7.42 [facility] Venous blood partial pressur e of carbon dioxide measurementOrdered By: Maite Menjivar on 10-26-2024 CO2 (BldV) [Partial pressure] 46.7 mm[Hg] 41-51 [facility] Venous blood partial pressur e of oxygen measurementOrdered By: Maite Menjivar on 10-26-2024 Oxygen (BldV) [Partial pressure] 60 mm[Hg] High 25-40 [facility] White blood cell (WBC) count Ordered By: Maite Menjivar on 10-26-2024 WBC (Bld) [#/Vol] 19.5 10*3/uL High 4.4-11.0 [facility] 12 Lead EKGon 10-19-2024 12 Lead EKG Normal [facility] Absolute lymphocyte countOrd ered By: Carroll Celeste on 10-19-2024 Lymphocytes Auto (Unsp spec) [#/Vol] 1.32 10*3/uL 0.83-4.51 [facility] Anion gap in Serum or Plasma Ordered By: Carroll Celeste on 10-19-2024 Anion gap [Moles/Vol] 10 mmol/L 5-15 [facility] Automated lymphocyte count a s percentage of total leukocytesOrdered By: Carroll Celeste on 10-19-2024 Lymphocytes/100 WBC Auto (Unsp spec) 8.8 % Low 19-41 [facility] BUN/creatinine ratioOrdered By: Carroll Celeste on 10-19-2024 Urea nitrogen/Creatinine [Mass ratio] 19.2 mg/mg 10-20 [facility] Basophil percentageOrdered B y: Carroll Celeste on 10-19-2024 Basophils/100 WBC (Bld) 0.1 % 0-1 [facility] Bilirubin Test strip Ql (U)O rdered By: Carroll Booker on 10-19-2024 Bilirubin Ql (U) Negative Negative [facility] Bilirubin, totalOrdered By: Carroll Celeste on 10-19-2024 Bilirubin [Mass/Vol] 0.30 mg/dL 0.00-1.30 [facility] CBC W/Diff, Automatedon Absolute Lymph 1.32 X10 3/uL Normal 0.83-4.51 [facility] Comment on above: Performed By: #### L [id number], [id number], L100.0100 ####[facility] [address] [place], [address] Absolute Neut 12.6 X10 3/uL High 2.0-7.7 [facility] Comment on above: Performed By: #### L [id number], [id number], [id number] ####[facility] [address] [place], [address] Basophils/100 WBC (Bld) 0.1 % Normal 0-1 [facility] Comment on above: Performed By: #### L [id number], [id number], [id number] ####[facility] [address] [place], [address] Eosinophils/100 WBC (Bld) 0.2 % Normal 0-5 [facility] Comment on above: Performed By: #### L [id number], [id number], [id number] ####[facility] [address] [place], [address] Erythrocyte distribution width (RBC) [Ratio] 16.6 % High 11.6-14.6 [facility] Comment on above: Performed By: #### L [id number], [id number], [id number] ####[facility] [address] [place], [address] Hematocrit (Bld) [Volume fraction] 26.5 % Low 40-54 [facility] Comment on above: Performed By: #### L [id number], [id number], [id number] ####[facility] [address] [place], [address] Hemoglobin (Bld) [Mass/Vol] 7.9 g/dL Low 13.0-16.5 [facility] Comment on above: Performed By: #### L [id number], [id number], [id number] ####[facility] [address] [place], [address] IG% 1.000 High 0.0-0.9 [facility] Comment on above: Result Comment: IG% - Immature Granulocytes (promyelocytes, myelocytes andmetamyelocytes) > 1% indicates that a LEFT SHIFT is Present. Performed By: #### L [id number], [id number], [id number] ####[facility] [address] [place], [address] Lymphocytes/100 WBC (Bld) 8.8 % Low 19-41 [facility] Comment on above: Performed By: #### L [id number], [id number], [id number] ####[facility] [address] [place], [address] MCH (RBC) [Entitic mass] 25.7 pg Low 27.0-32.0 [facility] Comment on above: Performed By: #### L [id number], [id number], [id number] ####[facility] [address] [place], [address] MCHC (RBC) [Mass/Vol] 29.8 g/dL Low 32-36 [facility] Comment on above: Performed By: #### L [id number], [id number], [id number] ####[facility] [address] [place], [address] MCV (RBC) [Entitic vol] 86.3 fL Normal 80-94 [facility] Comment on above: Performed By: #### L [id number], [id number], [id number] ####[facility] [address] [place], [address] Monocytes/100 WBC (Bld) 5.4 % Normal 0-10 [facility] Comment on above: Performed By: #### L [id number], [id number], [id number] ####[facility] [address] [place], [address] Neutrophils/100 WBC (Bld) 84.5 % High 47-70 [facility] Comment on above: Performed By: #### L 500.4050, [id number], [id number] ####[facility] [address] [place], [address] Nucleated RBC (Bld) [#/Vol] 0 10*3/uL Normal 0-5 [facility] Comment on above: Performed By: #### L [id number], [id number], [id number] ####[facility] [address] [place], [address] Platelet mean volume (Bld) [Entitic vol] 8.9 fL Normal 6.2-12.0 [facility] Comment on above: Performed By: #### L [id number], [id number], [id number] ####[facility] [address] [place], [address] Platelets (Bld) [#/Vol] 281 10*3/uL Normal 150-450 [facility] Comment on above: Performed By: #### L 500.4050, [id number], [id number] ####[facility] [address] [place], [address] RBC (Bld) [#/Vol] 3.07 10*6/uL Low 4.6-6.2 [facility] Comment on above: Performed By: #### L 500.4050, [id number], [id number] ####[facility] [address] [place], [address] RDW SD 52.3 fl High 35.1-43.9 [facility] Comment on above: Performed By: #### L [id number], [id number], [id number] ####[facility] [address] [place], [address] WBC (Bld) [#/Vol] 15.0 10*3/uL High 4.4-11.0 [facility] Comment on above: Performed By: #### L [id number], [id number], [id number] ####[facility] [address] [place], [address] CBC-Complete Blood Cnt No ffon 10-19-2024 Erythrocyte distribution width (RBC) [Ratio] 16.5 % High 11.6-14.6 [facility] Comment on above: Performed By: #### L 100.0500 ####[facility] [address] [place], [address] Hematocrit (Bld) [Volume fraction] 29.3 % Low 40-54 [facility] Comment on above: Performed By: #### L 100.0500 ####[facility] [address] [place], [address] Hemoglobin (Bld) [Mass/Vol] 9.0 g/dL Low 13.0-16.5 [facility] Comment on above: Performed By: #### L 100.0500 ####[facility] [address] [place], [address] MCH (RBC) [Entitic mass] 26.6 pg Low 27.0-32.0 [facility] Comment on above: Performed By: #### L 100.0500 ####[facility] [address] [place], [address] MCHC (RBC) [Mass/Vol] 30.7 g/dL Low 32-36 [facility] Comment on above: Performed By: #### L 100.0500 ####[facility] [address] [place], [address] MCV (RBC) [Entitic vol] 86.7 fL Normal 80-94 [facility] Comment on above: Performed By: #### L 100.0500 ####[facility] [address] [place], [address] Platelet mean volume (Bld) [Entitic vol] 9.2 fL Normal 6.2-12.0 [facility] Comment on above: Performed By: #### L 100.0500 ####[facility] [address] [place], [address] Platelets (Bld) [#/Vol] 325 10*3/uL Normal 150-450 [facility] Comment on above: Performed By: #### L 100.0500 ####[facility] [address] [place], [address] RBC (Bld) [#/Vol] 3.38 10*6/uL Low 4.6-6.2 [facility] Comment on above: Performed By: #### L 100.0500 ####[facility] [address] [place], [address] RDW SD 52.0 fl High 35.1-43.9 [facility] Comment on above: Performed By: #### L 100.0500 ####[facility] [address] [place], [address] WBC (Bld) [#/Vol] 22.0 10*3/uL High 4.4-11.0 [facility] Comment on above: Performed By: #### L 100.0500 ####[facility] [address] [place], [address] Carbon dioxide, total [Moles /volume] in Central venous bloodOrdered By: Carroll Celeste on 10-19-2024 CO2 [Moles/Vol] 28.6 mmol/L 21.0-32.0 [facility] Chest PA and Lateralon 10-19 Chest PA and Lateral Normal [facility] Chloride assayOrdered By: Dylan Celeste on 10-19-2024 Chloride [Moles/Vol] 93 mmol/L Low 98-108 [facility] Comprehensive Metabolic Prof ilon 10-19-2024 Albumin [Mass/Vol] 2.9 g/dL Low 3.4-4.8 [facility] Comment on above: Performed By: #### L 500.4050, L503.6005, L100.0100 ####[facility] [address] [place], [address] Albumin/Globulin [Mass ratio] 0.9 {ratio} Normal 0.9-2.4 [facility] Comment on above: Performed By: #### L 500.4050, L503.6005, L100.0100 ####[facility] [address] [place], [address] ALK PHOS 109 U/L Normal 40-129 [facility] Comment on above: Performed By: #### L 500.4050, L503.6005, L100.0100 ####[facility] [address] [place], [address] ALT [Catalytic activity/Vol] 13 U/L Normal <=46 [facility] Comment on above: Performed By: #### L 500.4050, L503.6005, L100.0100 ####[facility] [address] [place], [address] AST [Catalytic activity/Vol] 28 U/L Normal <=37 [facility] Comment on above: Performed By: #### L 500.4050, L503.6005, L100.0100 ####[facility] [address] [place], [address] Bilirubin [Mass/Vol] 0.30 mg/dL Normal 0.00-1.30 [facility] Comment on above: Performed By: #### L 500.4050, L503.6005, L100.0100 ####[facility] [address] [place], [address] BUN/CRE 19.2 RATIO Normal 10-20 [facility] Comment on above: Performed By: #### L 500.4050, L503.6005, L100.0100 ####[facility] [address] [place], [address] Calcium [Mass/Vol] 12.2 mg/dL High 7.6-11.0 [facility] Comment on above: Performed By: #### L 500.4050, L503.6005, L100.0100 ####[facility] [address] [place], [address] Chloride [Moles/Vol] 93 mmol/L Low 98-108 [facility] Comment on above: Performed By: #### L 500.4050, L503.6005, L100.0100 ####[facility] [address] [place], [address] CO2 [Moles/Vol] 28.6 mmol/L Normal 21.0-32.0 [facility] Comment on above: Performed By: #### L 500.4050, L503.6005, L100.0100 ####[facility] [address] [place], [address] Creatinine [Mass/Vol] 0.90 mg/dL Normal 0.70-1.20 [facility] Comment on above: Performed By: #### L 500.4050, L503.6005, L100.0100 ####[facility] [address] [place], [address] ECRCL 78.11 ml/min Normal 50-250 [facility] Comment on above: Performed By: #### L 500.4050, L503.6005, L100.0100 ####[facility] [address] [place], [address] GAP 10 Normal 5-15 [facility] Comment on above: Performed By: #### L 500.4050, L503.6005, L100.0100 ####[facility] [address] [place], [address] GFR/1.73 sq M.predicted among non-blacks MDRD (S/P/Bld) [Vol rate/Area] 93 mL/min/{1.73_m2} Normal >60 [facility] Comment on above: Result Comment: mL/m in/1.73m2 CKD-EPI Creatinine Equation (2020) Performed By: #### L 500.4050, L503.6005, L100.0100 ####[facility] [address] [place], [address] Globulin (S) [Mass/Vol] 3.1 g/dL Normal 2.2-4.2 [facility] Comment on above: Performed By: #### L 500.4050, L503.6005, L100.0100 ####[facility] [address] [place], [address] Glucose [Mass/Vol] 111 mg/dL High 70-99 [facility] Comment on above: Performed By: #### L 500.4050, L503.6005, L100.0100 ####[facility] [address] [place], [address] Potassium [Moles/Vol] 2.9 mmol/L Low 3.3-5.1 [facility] Comment on above: Performed By: #### L 500.4050, L503.6005, L100.0100 ####[facility] [address] [place], [address] Sodium [Moles/Vol] 132 mmol/L Low 133-145 [facility] Comment on above: Performed By: #### L 500.4050, L503.6005, L100.0100 ####[facility] [address] [place], [address] T PROT 5.9 g/dL Normal 5.9-8.4 [facility] Comment on above: Performed By: #### L 500.4050, L503.6005, L100.0100 ####[facility] [address] [place], [address] Urea nitrogen [Mass/Vol] 17 mg/dL Normal 4-19 [facility] Comment on above: Performed By: #### L 500.4050, L503.6005, L100.0100 ####[facility] [address] [place], [address] Emergency Department Summary on 10-19-2024 Emergency Department Summary Normal [facility] Eosinophil percentageOrdered By: Carroll Celeste on 10-19-2024 Eosinophils/100 WBC (Bld) 0.2 % 0-5 [facility] Erythrocyte distribution wid th ratioOrdered By: Carroll Celeste on 10-19-2024 Erythrocyte distribution width (RBC) [Ratio] 16.6 % High 11.6-14.6 [facility] Erythrocyte distribution wid th ratioOrdered By: Angelica Rodriguez on 10-19-2024 Erythrocyte distribution width (RBC) [Ratio] 16.5 % High 11.6-14.6 [facility] Erythrocyte distribution wid th standard deviationOrdered By: Carroll Celeste on 10-19-2024 Erythrocyte distribution width (RBC) [Ratio] 52.3 fl High 35.1-43.9 [facility] Erythrocyte distribution wid th standard deviationOrdered By: Angelica Rodriguez on 10-19-2024 Erythrocyte distribution width (RBC) [Ratio] 52.0 fl High 35.1-43.9 [facility] Glomerular filtration rate ( GFR) estimation/1.73 sq m using serum, plasma, or whole bOrdered By: Carroll Celeste on 10-19-2024 GFR/1.73 sq M.predicted among non-blacks MDRD (S/P/Bld) [Vol rate/Area] 93 mL/min/{1.73_m2} >60 [facility] Hematocrit Auto (Bld) [Volum e fraction]Ordered By: Carroll Celeste on 10-19-2024 Hematocrit (Bld) [Volume fraction] 26.5 % Low 40-54 [facility] Hematocrit Auto (Bld) [Volum e fraction]Ordered By: Angelica Rodriguez on 10-19-2024 Hematocrit (Bld) [Volume fraction] 29.3 % Low 40-54 [facility] Hemoglobin measurementOrdere d By: Carroll Celeste on 10-19-2024 Hemoglobin (Bld) [Mass/Vol] 7.9 g/dL Low 13.0-16.5 [facility] Hemoglobin measurementOrdere d By: Angelica Rodriguez on 10-19-2024 Hemoglobin (Bld) [Mass/Vol] 9.0 g/dL Low 13.0-16.5 [facility] Immature granulocytes/100 WB C Auto (Bld)Ordered By: Carroll Celeste on 10-19-2024 Immature granulocytes/100 WBC (Bld) 1.000 % High 0.0-0.9 [facility] Ketones Test strip Ql (U)Ord ered By: Carroll Celeste on 10-19-2024 Ketones Ql (U) Negative Negative [facility] Lactic Acidon 10-19-2024 Lactate [Moles/Vol] 1.5 mmol/L Normal 0.0-2.0 [facility] Comment on above: Order Comment: Y Performed By: #### L 500.4050, L503.6005, L100.0100 ####[facility] [address] [place], [address] MCV (mean corpuscular volume ) determinationOrdered By: Carroll Celeste on 10-19-2024 MCV (RBC) [Entitic vol] 86.3 fL 80-94 [facility] MCV (mean corpuscular volume ) determinationOrdered By: Angelica Rodriguez on 10-19-2024 MCV (RBC) [Entitic vol] 86.7 fL 80-94 [facility] Mean corpuscular hemoglobin (MCH) determinationOrdered By: Carroll Celeste on 10-19-2024 MCH (RBC) [Entitic mass] 25.7 pg Low 27.0-32.0 [facility] Mean corpuscular hemoglobin (MCH) determinationOrdered By: Angelica Rodriguez on 10-19-2024 MCH (RBC) [Entitic mass] 26.6 pg Low 27.0-32.0 [facility] Monocyte percentageOrdered B y: Carroll Celeste on 10-19-2024 Monocytes/100 WBC (Bld) 5.4 % 0-10 [facility] Mucus LM Ql (Urine sed)Order ed By: Carroll Celeste on 10-19-2024 Mucus Ql (Urine sed) 0 SEEN /hpf [facility] Neutrophil percentageOrdered By: Carroll Celeste on 10-19-2024 Neutrophils/100 WBC (Bld) 84.5 % High 47-70 [facility] Nitrite Test strip Ql (U)Ord ered By: Carroll Celeste on 10-19-2024 Nitrite Ql (U) Negative Negative [facility] No Panel InformationOrdered By: Carroll Celeste on 10-19-2024 28 U/L <38 [facility] Platelet countOrdered By: Dylan Celeste on 10-19-2024 Platelets (Bld) [#/Vol] 281 10*3/uL 150-450 [facility] Platelet countOrdered By: Wilner Rodriguez on 10-19-2024 Platelets (Bld) [#/Vol] 325 10*3/uL 150-450 [facility] Potassium measurement (mass/ volume)Ordered By: Carroll Celeste on 10-19-2024 Potassium (Unsp spec) [Mass/Vol] 2.9 mmol/L Low 3.3-5.1 [facility] Protein Test strip Ql (U)Ord ered By: Carroll Celeste on 10-19-2024 Protein Ql (U) 15 mg/dl High Negative [facility] RBC Auto (Bld) [#/Vol]Ordere d By: Carorll Celeste on 10-19-2024 RBC (Bld) [#/Vol] 3.07 10*6/uL Low 4.6-6.2 [facility] RBC Auto (Bld) [#/Vol]Ordere d By: Angelica Rodriguez on 10-19-2024 RBC (Bld) [#/Vol] 3.38 10*6/uL Low 4.6-6.2 [facility] Serum creatinine measurement (mass/volume)Ordered By: Carroll Celeste on 10-19-2024 Creatinine [Mass/Vol] 0.90 mg/dL 0.70-1.20 [facility] Serum globulin measurementOr dered By: Carroll Celeste on 10-19-2024 Globulin (S) [Mass/Vol] 3.1 g/dL 2.2-4.2 [facility] Serum glucose measurement (m ass/volume)Ordered By: Carroll Celeste on 10-19-2024 Glucose [Mass/Vol] 111 mg/dL High 70-99 [facility] Serum or plasma alanine delaney otransferase (ALT) measurementOrdered By: Carroll Celeset on 10-19-2024 ALT [Catalytic activity/Vol] 13 U/L <47 [facility] Serum or plasma albumin alfreda urement (mass/volume)Ordered By: Carroll Celeste on 10-19-2024 Albumin [Mass/Vol] 2.9 g/dL Low 3.4-4.8 [facility] Serum or plasma albumin/glob ulin mass ratioOrdered By: Carroll Celeste on 10-19-2024 Albumin/Globulin [Mass ratio] 0.9 {ratio} 0.9-2.4 [facility] Serum or plasma alkaline debby sphatase measurementOrdered By: Carroll Celeste on 10-19-2024 ALP [Catalytic activity/Vol] 109 U/L 40-129 [facility] Serum or plasma calcium alfreda urement (mass/volume)Ordered By: Carroll Celeste on 10-19-2024 Calcium [Mass/Vol] 12.2 mg/dL High 7.6-11.0 [facility] Serum or plasma urea nitroge n measurement (mass/volume)Ordered By: Carroll Celeste on 10-19-2024 Urea nitrogen [Mass/Vol] 17 mg/dL 4-19 [facility] Sodium levelOrdered By: Carroll Ceelste on 10-19-2024 Sodium [Moles/Vol] 132 mmol/L Low 133-145 [facility] Squamous epithelial cells de tection in urine sediment by light microscopyOrdered By: Carroll Celeste on 10-19-2024 Epithelial cells.squamous LM Ql (Urine sed) 0-5 SEEN /hpf 0-5 [facility] Total proteinOrdered By: Johan Celeste on 10-19-2024 Protein [Mass/Vol] 5.9 g/dL 5.9-8.4 [facility] Urinalysis, Completeon 10-19 EPI,SQUAMOUS 0-5 SEEN Normal 0-5 [facility] Comment on above: Order Comment: CLEAN CATCH Performed By: #### L 400.0001 ####[facility] [address] [place], [address] RBC 0-5 SEEN Normal 0-5 [facility] Comment on above: Order Comment: CLEAN CATCH Performed By: #### L 400.0001 ####[facility] [address] [place], [address] WBC 0-5 SEEN Normal 0-5 [facility] Comment on above: Order Comment: CLEAN CATCH Performed By: #### L 400.0001 ####[facility] [address] [place], [address] BACTERIA 0 SEEN Normal None Seen [facility] Comment on above: Order Comment: CLEAN CATCH Performed By: #### L 400.0001 ####[facility] [address] [place], [address] Mucus Ql (Urine sed) [address] [facility] Comment on above: Order Comment: CLEAN CATCH Performed By: #### L 400.0001 ####[facility] [address] [place], [address] Urine clarityOrdered By: Johan Celeste on 10-19-2024 Clarity (U) Clear Clear [facility] Urine color determinationOrd ered By: Carroll Celeste on 10-19-2024 Color (U) Yellow Yellow [facility] Urine glucose detectionOrder ed By: Carroll Celeste on 10-19-2024 Glucose Ql (U) Normal mg/dl Normal [facility] Urine leukocyte esterase det ection by dipstickOrdered By: Carroll Celeste on 10-19-2024 Leukocyte esterase Test strip Ql (U) Negative Negative [facility] Urine pHOrdered By: Carroll langley on 10-19-2024 pH (U) 6.5 [pH] 5.0 - 8.0 [facility] Urine sediment bacteria coun t by microscopy (number/high power field)Ordered By: Carroll Celeste on 10-19-2024 Bacteria LM.HPF (Urine sed) [#/Area] 0 /[HPF] None Seen [facility] Urine specific gravity measu rementOrdered By: Carroll Celeste on 10-19-2024 Specific gravity (U) [Rel density] 1.015 1.002-1.03 0 [facility] Urine urobilinogen measureme ntOrdered By: Carroll Celeste on 10-19-2024 Urobilinogen Ql (U) Normal mg/dl Normal [facility] White blood cell (WBC) count Ordered By: Carroll Celeste on 10-19-2024 WBC (Bld) [#/Vol] 15.0 10*3/uL High 4.4-11.0 [facility] White blood cell (WBC) count Ordered By: Angelica Rodriguez on 10-19-2024 WBC (Bld) [#/Vol] 22.0 10*3/uL High 4.4-11.0 [facility] White blood cell countOrdere d By: Carroll Celeste on 10-19-2024 White blood cell count 0-5 SEEN /hpf 0-5 [facility] CNPNon 10-17-2024 CNPN Telephone (HEMKEYUR) REY MEAD ([id number]) 1955 M Date Time Provider Department 10/17/24 VALDEMAR GUTIERREZ During your visit today, we recorded the following information about you: Elena Goldsmith 10/17/2024 9:50 AM Signed Yg from [facility] home health called stating that patient has been discharged and needs follow up. Please advise if any labs/etc need to be completed with office visit. Please call Wilner santos to schedule - [phone] Cuba RN 10/17/2024 10:11 AM Signed Follow up OV with Dr. Gutierrez and Dr. Dunaway. No labs. VIPUL Castro Naomi 10/17/2024 3:40 PM Signed Sent [employer] message to call and schedule follow up appts laurel Gutierrez and Gume. No answer and VM is full on both contact numbers. Estefania BegumElena Aden 10/18/2024 10:52 AM Signed Please call Wilner santos to schedule - [phone] Lauryn Taveras 10/18/2024 3:47 PM Signed Patient is already scheduled to see for a phone visit follow-up on 11/06/24. I called and spoke to Wilner and scheduled Rey for 10/23/24 @ 3:00 pm he confirmed this date and time Lauryn Haji Allergies As of Date: 10/17/2024 (No Known Allergies) Date Reviewed: 10/09/2024 Reviewed by: Laura Smiley, VIPUL - Fully Assessed Reason for Visit: Appointment [...] 1 Puff as instructed once daily. - BVFIXIKYVPN-[id number]-SHTPP TER INHALATION Inhale as instructed. - ALBUTEROL [...] lung (HCC) [C34*08/28/2024 Encounter Status:Closed by LAURYN TAVERAS on 10/18/24 Normal [facility] CNOVon 10-09-2024 CNOV Office Visit (RADTWS ) REY MEAD ([id number]) 1955 M Date Time Provider Department 10/09/24 10:15 AM [facility] RADTFL[facility] During your visit today, we recorded the following information about you: Temperature Pulse Respiration Blood pressure 97.4 degrees 96/minute 20/minute 87/53 Laura Smiley, RN 10/09/2024 10:51 AM Signed Radiation Therapy - Nursing Note (OTV) PATIENT NAME: Rey Mead PATIENT October 09, 2024 [facility] FACILITY/LOCATION: [place] NURSING NOTE TYPE: TITLE I PARAPROFESSIONAL Subjective Data See pain assessment Additional Data Do you want to see a Truck Body Repairer? No Status: Patient is male Stress Scale: On a scale of 0 to 10, what number best describes how much distress you have experienced in the past week?(0 being no distress and 10 being extreme distress) 5 Social work notified: Pt denied need to see social sciences chair at this time. Nursing Assessment Fatigue: none [...] None Skin Sensation: mild itching Focused Assessment TITLE I PARAPROFESSIONAL: Alopecia: no. Headache: none. Vision changes: none. [...] 1 Puff as instructed once daily. - FFKZIPTFPXB-YYXFUNPQB-LWWER TER INHALATION Inhale as instructed. - ALBUTEROL [...] - P (more content not included)... Normal [facility] Ewa 10-09-2024 FLYN Telephone (JAMES) REY MEAD ([id number]) 1955 M Date Time Provider Department 10/09/24 VALDEMAR GUTIERREZ During your visit today, we recorded the following information about you: Elena Goldsmith 10/09/2024 10:34 AM Signed Please fax most recent med onc note to [facility] for palliative care at [phone] attn: Adarsh. Ilana Neal LPN 10/09/2024 11:49 AM Signed Note faxed as requested. Ilana Neal LPN Allergies As of Date: 10/09/2024 (No Known Allergies) Date Reviewed: 10/09/2024 Reviewed by: Laura Smiley, VIPUL - Fully Assessed Reason for Visit: Electronic [...] 1 Puff as instructed once daily. - BORFBQNDRRK-KROAHYUJA-WMACF TER INHALATION Inhale as instructed. - ALBUTEROL [...] Status:Closed by ILANA NEAL on 10/09/24 Normal [facility] 12 Lead EKGon 10-05-2024 12 Lead EKG Normal [facility] Absolute lymphocyte countOrd ered By: Nishi Garnett on 10-05-2024 Lymphocytes Auto (Unsp spec) [#/Vol] 1.82 10*3/uL 0.83-4.51 [facility] Anion gap in Serum or Plasma Ordered By: Nishi Garnett on 10-05-2024 Anion gap [Moles/Vol] 10 mmol/L 5-15 [facility] Automated lymphocyte count a s percentage of total leukocytesOrdered By: Nishi Garnett on 10-05-2024 Lymphocytes/100 WBC Auto (Unsp spec) 17.7 % Low 19-41 [facility] BRCon 10-05-2024 RC Normal [facility] Comment on above: Result Comment: [id number] AP RC TRANSFUSED 10/05/24 [id number] AP RC TRANSFUSED 10/05/242041 Performed By: #### B TS, [facility] ####[facility] [address] [place], [address] BUN/creatinine ratioOrdered By: Nishikathy Garnett on 10-05-2024 Urea nitrogen/Creatinine [Mass ratio] 12.0 mg/mg 10-20 [facility] Basophil percentageOrdered B y: Nishi Garnett on 10-05-2024 Basophils/100 WBC (Bld) 0.2 % 0-1 [facility] Bilirubin, totalOrdered By: Nishikathy Garnett on 10-05-2024 Bilirubin [Mass/Vol] 0.41 mg/dL 0.00-1.30 [facility] CBC W/Diff, Automatedon 09-13 Absolute Lymph 1.82 X10 3/uL Normal 0.83-4.51 [facility] Comment on above: Performed By: #### L 100.0100, L500.4050 ####[facility] [address] [place], [address] Absolute Neut 7.2 X10 3/uL Normal 2.0-7.7 [facility] Comment on above: Performed By: #### L 100.0100, L500.4050 ####[facility] [address] [place], [address] Basophils/100 WBC (Bld) 0.2 % Normal 0-1 [facility] Comment on above: Performed By: #### L 100.0100, L500.4050 ####[facility] [address] [place], [address] Eosinophils/100 WBC (Bld) 0.3 % Normal 0-5 [facility] Comment on above: Performed By: #### L 100.0100, L500.4050 ####[facility] [address] [place], [address] Erythrocyte distribution width (RBC) [Ratio] 18.0 % High 11.6-14.6 [facility] Comment on above: Performed By: #### L 100.0100, L500.4050 ####[facility] [address] [place], [place], [address] Hematocrit (Bld) [Volume fraction] 22.9 % Low 40-54 [facility] Comment on above: Performed By: #### L 100.0100, L500.4050 ####[facility] [address] [place], [address] Hemoglobin (Bld) [Mass/Vol] 6.6 g/dL Low 13.0-16.5 [facility] Comment on above: Performed By: #### L 100.0100, L500.4050 ####[facility] [address] [place], [address] IG% 2.000 High 0.0-0.9 [facility] Comment on above: Result Comment: IG% - Immature Granulocytes (promyelocytes, myelocytes andmetamyelocytes) > 1% indicates that a LEFT SHIFT is Present. Performed By: #### L 100.0100, L500.4050 ####[facility] [address] [place], [address] Lymphocytes/100 WBC (Bld) 17.7 % Low 19-41 [facility] Comment on above: Performed By: #### L 100.0100, L500.4050 ####[facility] [address] [place], [address] MCH (RBC) [Entitic mass] 26.1 pg Low 27.0-32.0 [facility] Comment on above: Performed By: #### L 100.0100, L500.4050 ####[facility] [address] [place], [address] MCHC (RBC) [Mass/Vol] 28.8 g/dL Low 32-36 [facility] Comment on above: Performed By: #### L 100.0100, L500.4050 ####[facility] [address] [place], [address] MCV (RBC) [Entitic vol] 90.5 fL Normal 80-94 [facility] Comment on above: Performed By: #### L 100.0100, L500.4050 ####[facility] [address] [place], [address] Monocytes/100 WBC (Bld) 9.4 % Normal 0-10 [facility] Comment on above: Performed By: #### L 100.0100, L500.4050 ####[facility] [address] [place], [address] Neutrophils/100 WBC (Bld) 70.4 % High 47-70 [facility] Comment on above: Performed By: #### L 100.0100, L500.4050 ####[facility] [address] [place], [address] Nucleated RBC (Bld) [#/Vol] 0 10*3/uL Normal 0-5 [facility] Comment on above: Performed By: #### L 100.0100, L500.4050 ####[facility] [address] [place], [address] Platelet mean volume (Bld) [Entitic vol] 9.6 fL Normal 6.2-12.0 [facility] Comment on above: Performed By: #### L 100.0100, L500.4050 ####[facility] [address] [place], [address] Platelets (Bld) [#/Vol] 349 10*3/uL Normal 150-450 [facility] Comment on above: Performed By: #### L 100.0100, L500.4050 ####[facility] [address] [place], [address] RBC (Bld) [#/Vol] 2.53 10*6/uL Low 4.6-6.2 [facility] Comment on above: Performed By: #### L 100.0100, L500.4050 ####[facility] [address] [place], [address] RDW SD 59.3 fl High 35.1-43.9 [facility] Comment on above: Performed By: #### L 100.0100, L500.4050 ####[facility] [address] [place], [address] WBC (Bld) [#/Vol] 10.3 10*3/uL Normal 4.4-11.0 [facility] Comment on above: Performed By: #### L 100.0100, L500.4050 ####[facility] [address] [place], [address] CBC-Complete Blood Cnt No Di ffon 10-05-2024 Erythrocyte distribution width (RBC) [Ratio] 18.1 % High 11.6-14.6 [facility] Comment on above: Performed By: #### L 100.0500 ####[facility] [address] [place], [address] Hematocrit (Bld) [Volume fraction] 21.1 % Low 40-54 [facility] Comment on above: Performed By: #### L 100.0500 ####[facility] [address] [place], [address] Hemoglobin (Bld) [Mass/Vol] 6.4 g/dL Low 13.0-16.5 [facility] Comment on above: Performed By: #### L 100.0500 ####[facility] [address] [place], [address] MCH (RBC) [Entitic mass] 27.1 pg Normal 27.0-32.0 [facility] Comment on above: Performed By: #### L 100.0500 ####[facility] [address] [place], [address] MCHC (RBC) [Mass/Vol] 30.3 g/dL Low 32-36 [facility] Comment on above: Performed By: #### L 100.0500 ####[facility] [address] [place], [address] MCV (RBC) [Entitic vol] 89.4 fL Normal 80-94 [facility] Comment on above: Performed By: #### L 100.0500 ####[facility] [address] [place], [address] Platelet mean volume (Bld) [Entitic vol] 9.4 fL Normal 6.2-12.0 [facility] Comment on above: Performed By: #### L 100.0500 ####[facility] [address] [place], [address] Platelets (Bld) [#/Vol] 304 10*3/uL Normal 150-450 [facility] Comment on above: Performed By: #### L 100.0500 ####[facility] [address] [place], [address] RBC (Bld) [#/Vol] 2.36 10*6/uL Low 4.6-6.2 [facility] Comment on above: Performed By: #### L 100.0500 ####[facility] [address] [place], [address] RDW SD 58.8 fl High 35.1-43.9 [facility] Comment on above: Performed By: #### L 100.0500 ####[facility] [address] [place], [address] WBC (Bld) [#/Vol] 8.6 10*3/uL Normal 4.4-11.0 [facility] Comment on above: Performed By: #### L 100.0500 ####[facility] [address] [place], [address] Carbon dioxide, total [Moles /volume] in Central venous bloodOrdered By: Nishi Garnett on 10-05-2024 CO2 [Moles/Vol] 28.1 mmol/L 21.0-32.0 [facility] Chloride assayOrdered By: Dylan Garnett on 10-05-2024 Chloride [Moles/Vol] 94 mmol/L Low 98-108 [facility] Comprehensive Metabolic Prof ilon 10-05-2024 Albumin [Mass/Vol] 2.8 g/dL Low 3.4-4.8 [facility] Comment on above: Performed By: #### L 100.0100, L500.4050 ####[facility] [address] [place], [address] Albumin/Globulin [Mass ratio] 0.8 {ratio} Low 0.9-2.4 [facility] Comment on above: Performed By: #### L 100.0100, L500.4050 ####[facility] [address] [place], [address] ALK PHOS 105 U/L Normal 40-129 [facility] Comment on above: Performed By: #### L 100.0100, L500.4050 ####[facility] [address] [place], [address] ALT [Catalytic activity/Vol] 28 U/L Normal <=46 [facility] Comment on above: Performed By: #### L 100.0100, L500.4050 ####[facility] [address] [place], [address] AST [Catalytic activity/Vol] 22 U/L Normal <=37 [facility] Comment on above: Performed By: #### L 100.0100, L500.4050 ####[facility] [address] [place], [address] Bilirubin [Mass/Vol] 0.41 mg/dL Normal 0.00-1.30 [facility] Comment on above: Performed By: #### L 100.0100, L500.4050 ####[facility] [address] [place], [address] BUN/CRE 12.0 RATIO Normal 10-20 [facility] Comment on above: Performed By: #### L 100.0100, L500.4050 ####[facility] [address] [place], [address] Calcium [Mass/Vol] 10.4 mg/dL Normal 7.6-11.0 [facility] Comment on above: Performed By: #### L 100.0100, L500.4050 ####[facility] [address] [place], [address] Chloride [Moles/Vol] 94 mmol/L Low 98-108 [facility] Comment on above: Performed By: #### L 100.0100, L500.4050 ####[facility] [address] [place], [address] CO2 [Moles/Vol] 28.1 mmol/L Normal 21.0-32.0 [facility] Comment on above: Performed By: #### L 100.0100, L500.4050 ####[facility] [address] [place], [address] Creatinine [Mass/Vol] 0.68 mg/dL Low 0.70-1.20 [facility] Comment on above: Performed By: #### L 100.0100, L500.4050 ####[facility] [address] [place], [address] GAP 10 Normal 5-15 [facility] Comment on above: Performed By: #### L 100.0100, L500.4050 ####[facility] [address] [place], [address] GFR/1.73 sq M.predicted among non-blacks MDRD (S/P/Bld) [Vol rate/Area] 101 mL/min/{1.73_m2} Normal >60 [facility] Comment on above: Result Comment: mL/m in/1.73m2 CKD-EPI Creatinine Equation (2020) Performed By: #### L 100.0100, L500.4050 ####[facility] [address] [place], [address] Globulin (S) [Mass/Vol] 3.3 g/dL Normal 2.2-4.2 [facility] Comment on above: Performed By: #### L 100.0100, L500.4050 ####[facility] [address] [place], [address] Glucose [Mass/Vol] 87 mg/dL Normal 70-99 [facility] Comment on above: Performed By: #### L 100.0100, L500.4050 ####[facility] [address] [place], [address] Potassium [Moles/Vol] 3.8 mmol/L Normal 3.3-5.1 [facility] Comment on above: Performed By: #### L 100.0100, L500.4050 ####[facility] [address] [place], [address] Sodium [Moles/Vol] 132 mmol/L Low 133-145 [facility] Comment on above: Performed By: #### L 100.0100, L500.4050 ####[facility] [address] [place], [address] T PROT 6.0 g/dL Normal 5.9-8.4 [facility] Comment on above: Performed By: #### L 100.0100, L500.4050 ####[facility] [address] [place], [address] Urea nitrogen [Mass/Vol] 8 mg/dL Normal 4-19 [facility] Comment on above: Performed By: #### L 100.0100, L500.4050 ####[facility] [address] [place], [address] Emergency Department Summary on 10-05-2024 Emergency Department Summary Normal [facility] Eosinophil percentageOrdered By: Nishi Garnett on 10-05-2024 Eosinophils/100 WBC (Bld) 0.3 % 0-5 [facility] Erythrocyte distribution wid th ratioOrdered By: Aden Stahl on 10-05-2024 Erythrocyte distribution width (RBC) [Ratio] 18.1 % High 11.6-14.6 [facility] Erythrocyte distribution wid th ratioOrdered By: Nishi Garnett on 10-05-2024 Erythrocyte distribution width (RBC) [Ratio] 18.0 % High 11.6-14.6 [facility] Erythrocyte distribution wid th standard deviationOrdered By: Aden Stahl on 10-05-2024 Erythrocyte distribution width (RBC) [Ratio] 58.8 fl High 35.1-43.9 [facility] Erythrocyte distribution wid th standard deviationOrdered By: Nishi Garnett on 10-05-2024 Erythrocyte distribution width (RBC) [Ratio] 59.3 fl High 35.1-43.9 [facility] Glomerular filtration rate ( GFR) estimation/1.73 sq m using serum, plasma, or whole bOrdered By: Nishi Garnett on 10-05-2024 GFR/1.73 sq M.predicted among non-blacks MDRD (S/P/Bld) [Vol rate/Area] 101 mL/min/{1.73_m2} >60 [facility] Hematocrit Auto (Bld) [Volum e fraction]Ordered By: Aden Stahl on 10-05-2024 Hematocrit (Bld) [Volume fraction] 21.1 % Low 40-54 [facility] Hematocrit Auto (Bld) [Volum e fraction]Ordered By: Nishi Garnett on 10-05-2024 Hematocrit (Bld) [Volume fraction] 22.9 % Low 40-54 [facility] Hemoglobin measurementOrdere d By: Aden Stahl on 10-05-2024 Hemoglobin (Bld) [Mass/Vol] 6.4 g/dL Low 13.0-16.5 [facility] Hemoglobin measurementOrdere d By: Nishi Garnett on 10-05-2024 Hemoglobin (Bld) [Mass/Vol] 6.6 g/dL Low 13.0-16.5 [facility] Immature granulocytes/100 WB C Auto (Bld)Ordered By: Nishi Garnett on 10-05-2024 Immature granulocytes/100 WBC (Bld) 2.000 % High 0.0-0.9 [facility] Internal Medicine Office Vis iton 10-05-2024 Internal Medicine Office Visit Normal [facility] MCV (mean corpuscular volume ) determinationOrdered By: Aden Stahl on 10-05-2024 MCV (RBC) [Entitic vol] 89.4 fL 80-94 [facility] MCV (mean corpuscular volume ) determinationOrdered By: Nishi Garnett on 10-05-2024 MCV (RBC) [Entitic vol] 90.5 fL 80-94 [facility] Mean corpuscular hemoglobin (MCH) determinationOrdered By: Aden Stahl on 10-05-2024 MCH (RBC) [Entitic mass] 27.1 pg 27.0-32.0 [facility] Mean corpuscular hemoglobin (MCH) determinationOrdered By: Nishi Garnett on 10-05-2024 MCH (RBC) [Entitic mass] 26.1 pg Low 27.0-32.0 [facility] Monocyte percentageOrdered B y: Nishi Garnett on 10-05-2024 Monocytes/100 WBC (Bld) 9.4 % 0-10 [facility] Neutrophil percentageOrdered By: Nishi Garnett on 10-05-2024 Neutrophils/100 WBC (Bld) 70.4 % High 47-70 [facility] No Panel InformationOrdered By: Nishi Garnett on 10-05-2024 22 U/L <38 [facility] Platelet countOrdered By: Wilner Stahl on 10-05-2024 Platelets (Bld) [#/Vol] 304 10*3/uL 150-450 [facility] Platelet countOrdered By: Dylan Garnett on 10-05-2024 Platelets (Bld) [#/Vol] 349 10*3/uL 150-450 [facility] Potassium measurement (mass/ volume)Ordered By: Nishi Garnett on 10-05-2024 Potassium (Unsp spec) [Mass/Vol] 3.8 mmol/L 3.3-5.1 [facility] RBC Auto (Bld) [#/Vol]Ordere d By: Aden Stahl on 10-05-2024 RBC (Bld) [#/Vol] 2.36 10*6/uL Low 4.6-6.2 [facility] RBC Auto (Bld) [#/Vol]Ordere d By: Nishi Garnett on 10-05-2024 RBC (Bld) [#/Vol] 2.53 10*6/uL Low 4.6-6.2 [facility] Serum creatinine measurement (mass/volume)Ordered By: Nishi Garnett on 10-05-2024 Creatinine [Mass/Vol] 0.68 mg/dL Low 0.70-1.20 [facility] Serum globulin measurementOr dered By: Nishi Garnett on 10-05-2024 Globulin (S) [Mass/Vol] 3.3 g/dL 2.2-4.2 [facility] Serum glucose measurement (m ass/volume)Ordered By: Nishi Garnett on 10-05-2024 Glucose [Mass/Vol] 87 mg/dL 70-99 [facility] Serum or plasma alanine delaney otransferase (ALT) measurementOrdered By: Nishi Garnett on 10-05-2024 ALT [Catalytic activity/Vol] 28 U/L <47 [facility] Serum or plasma albumin alfreda urement (mass/volume)Ordered By: Nishi Garnett on 10-05-2024 Albumin [Mass/Vol] 2.8 g/dL Low 3.4-4.8 [facility] Serum or plasma albumin/glob ulin mass ratioOrdered By: Nishi Garnett on 10-05-2024 Albumin/Globulin [Mass ratio] 0.8 {ratio} Low 0.9-2.4 [facility] Serum or plasma alkaline debby sphatase measurementOrdered By: Nishi Garnett on 10-05-2024 ALP [Catalytic activity/Vol] 105 U/L 40-129 [facility] Serum or plasma calcium alfreda urement (mass/volume)Ordered By: Nishi Garnett on 10-05-2024 Calcium [Mass/Vol] 10.4 mg/dL 7.6-11.0 [facility] Serum or plasma urea nitroge n measurement (mass/volume)Ordered By: Nishi Garnett on 10-05-2024 Urea nitrogen [Mass/Vol] 8 mg/dL 4-19 [facility] Sodium levelOrdered By: Grecia Garnett on 10-05-2024 Sodium [Moles/Vol] 132 mmol/L Low 133-145 [facility] Total proteinOrdered By: Yue Garnett on 10-05-2024 Protein [Mass/Vol] 6.0 g/dL 5.9-8.4 [facility] Type AND Screenon 10-05-2024 Ab SCREEN GEL Negative Normal [facility] Comment on above: Order Comment: Order Date: 10/05/24CMV NEG? NNumber of units to transfuse: 2Is pt's Hgb is = to 7.0 mg/dl or Hct </= 21%? YReason for Ordering Blood: ChronicAre the blood/blood products to be transfused? YIs the patient having/had surgery? Lionel Brian Performed By: #### B , BR ####[facility] [address] [place], [address] White blood cell (WBC) count Ordered By: Aden Stahl on 10-05-2024 WBC (Bld) [#/Vol] 8.6 10*3/uL 4.4-11.0 [facility] White blood cell (WBC) count Ordered By: Nishi Garnett on 10-05-2024 WBC (Bld) [#/Vol] 10.3 10*3/uL 4.4-11.0 [facility] ([id number]) 1955 M Date Time Provider Department 10/02/24 [facility] During your visit today, we recorded the following information about you: Enriqueta Amado, VIPUL 10/02/2024 2:44 PM Signed [place] Eng for [facility], called to report that patient is home [...] an update on . Therapists aware. Enriqueta Amado RN 10/05/2024 1:42 PM Signed Madeleine PT from [facility] called to report that pt's BP has stabilized. Pt followed up with PCP today as well. Pt wants to come in tomorrow to resume radiation. Dr Dunaway aware and pt ok to resume. Therapists aware and scheduled. Pt's friend that transports him is Al and I called him and notified him of the appointment at [phone]. Madeleine notified as well at [phone]. Allergies As of Date: 10/02/2024 (No Known [...] 1 Puff as instructed once daily. - [id number] TER INHALATION Inhale as instructed. - ALBUTEROL [...] Status:Closed by ENRIQUETA AMADO on 10/05/24 Normal [facility] Bedside Glucoseon 09-25-2024 FINGERSTICK GLU 259 mg/dL High 74-106 [facility] Comment on above: Result Comment: JEFRY TURNER OF PATIENT CARE PER NURSING PROTOCOL Performed By: #### L 501.080 ####[facility] [address] [place], [address] FINGERSTICK GLU 210 mg/dL High [address] [place] [address] Comment on above: Result Comment: JEFRY GEMENT OF PATIENT CARE PER NURSING PROTOCOL Performed By: #### L 501.080 ####[facility] [address] [place], [address] FINGERSTICK GLU 152 mg/dL High [address] [place] [address] Comment on above: Result Comment: JEFRY GEMENT OF PATIENT CARE PER NURSING PROTOCOL Performed By: #### L 501.080 ####[facility] [address] [place], [address] Culture, Blood (WB)on 2024 CUB Blood cultures x2, f rom two different sites No growth in 5 days. Normal [facility] Comment on above: Performed By: #### M 200.1000 ####[facility] [address] [place], [address] [facility] at [facility] deOrdered By: Naresh Florez on 09-25-2024 Glucose [Mass/Vol] 259 mg/dL High 74-106 [facility] Bedside Glucoseon 09-24-2024 FINGERSTICK GLU 229 mg/dL High [address] [place] [address] Comment on above: Result Comment: JEFRY GEMENT OF PATIENT CARE PER NURSING PROTOCOL Performed By: #### L 501.080 ####[facility] [address] [place], [address] FINGERSTICK GLU 196 mg/dL High [address] [place] [address] Comment on above: Result Comment: JEFRY GEMENT OF PATIENT CARE PER NURSING PROTOCOL Performed By: #### L 501.080 ####[facility] [address] [place], [address] FINGERSTICK GLU 222 mg/dL High [facility] Comment on above: Result Comment: JEFRY GEMENT OF PATIENT CARE PER NURSING PROTOCOL Performed By: #### L 501.080 ####[facility] [address] [place], [address] FINGERSTICK GLU 194 mg/dL High [facility] Comment on above: Result Comment: JEFRY GEMENT OF PATIENT CARE PER NURSING PROTOCOL Performed By: #### L 501.080 ####[facility] [address] [place], [address] Bedside Glucoseon 09-23-2024 FINGERSTICK GLU 276 mg/dL High [address] [place] [address] Comment on above: Result Comment: JEFRY GEMENT OF PATIENT CARE PER NURSING PROTOCOL Performed By: #### L 501.080 ####[facility] [address] [place], [address] FINGERSTICK GLU 264 mg/dL High [address] [place] [address] Comment on above: Result Comment: JEFRY GEMENT OF PATIENT CARE PER NURSING PROTOCOL Performed By: #### L 501.080 ####[facility] [address] [place], [address] FINGERSTICK GLU 278 mg/dL High [address] [place] [address] Comment on above: Result Comment: JEFRY GEMENT OF PATIENT CARE PER NURSING PROTOCOL Performed By: #### L 501.080 ####[facility] [address] [place], [address] FINGERSTICK GLU 211 mg/dL High [address] [place] [address] Comment on above: Result Comment: JEFRY GEMENT OF PATIENT CARE PER NURSING PROTOCOL Performed By: #### L 501.080 ####[facility] [address] [place], [address] Absolute lymphocyte countOrd ered By: Naresh Florez on 09-22-2024 Lymphocytes Auto (Unsp spec) [#/Vol] 0.70 10*3/uL Low 0.83-4.51 [facility] Anion gap in Serum or Plasma Ordered By: Naresh Florez on 09-22-2024 Anion gap [Moles/Vol] 7 mmol/L 5-15 [facility] Automated lymphocyte count a s percentage of total leukocytesOrdered By: Naresh Florez on 09-22-2024 Lymphocytes/100 WBC Auto (Unsp spec) 11.5 % Low 19-41 [facility] BUN/creatinine ratioOrdered By: Naresh Florez on 09-22-2024 Urea nitrogen/Creatinine [Mass ratio] 10.7 mg/mg 10-20 [facility] Basic Metabolic Profile (BMP )on 09-22-2024 BUN/CRE 10.7 RATIO Normal - [facility] Comment on above: Performed By: #### L 500.2500, L100.0100 ####[facility] [address] [place], [address] Calcium [Mass/Vol] 10.4 mg/dL Normal 7.6-11.0 [facility] Comment on above: Performed By: #### L 500.2500, L100.0100 ####[facility] [address] [place], [address] Chloride [Moles/Vol] 99 mmol/L Normal 98-108 [facility] Comment on above: Performed By: #### L 500.2500, L100.0100 ####[facility] [address] [place], [address] CO2 [Moles/Vol] 27.9 mmol/L Normal 21.0-32.0 [facility] Comment on above: Performed By: #### L 500.2500, L100.0100 ####[facility] [address] [place], [address] Creatinine [Mass/Vol] 0.81 mg/dL Normal 0.70-1.20 [facility] Comment on above: Performed By: #### L 500.2500, L100.0100 ####[facility] [address] [place], [address] ECRCL 87.28 ml/min Normal 50-250 [facility] Comment on above: Performed By: #### L 500.2500, L100.0100 ####[facility] [address] [place], [address] GAP 7 Normal 5-15 [facility] Comment on above: Performed By: #### L 500.2500, L100.0100 ####[facility] [address] [place], [address] GFR/1.73 sq M.predicted among non-blacks MDRD (S/P/Bld) [Vol rate/Area] 96 mL/min/{1.73_m2} Normal >60 [facility] Comment on above: Result Comment: mL/m in/1.73m2 CKD-EPI Creatinine Equation (2020) Performed By: #### L 500.2500, L100.0100 ####[facility] [address] [place], [address] Glucose [Mass/Vol] 123 mg/dL High 70-99 [facility] Comment on above: Performed By: #### L 500.2500, L100.0100 ####[facility] [address] [place], [address] Potassium [Moles/Vol] 3.7 mmol/L Normal 3.3-5.1 [facility] Comment on above: Performed By: #### L 500.2500, L100.0100 ####[facility] [address] [place], [address] Sodium [Moles/Vol] 134 mmol/L Normal 133-145 [facility] Comment on above: Performed By: #### L 500.2500, L100.0100 ####[facility] [address] [place], [address] Urea nitrogen [Mass/Vol] 9 mg/dL Normal 4-19 [facility] Comment on above: Performed By: #### L 500.2500, L100.0100 ####[facility] [address] [place], [address] Basophil percentageOrdered B y: Naresh Florez on 09-22-2024 Basophils/100 WBC (Bld) 0.2 % 0-1 [facility] Bedside Glucoseon 09-22-2024 FINGERSTICK GLU 238 mg/dL High 74-106 [facility] Comment on above: Result Comment: JEFRY GEMENT OF PATIENT CARE PER NURSING PROTOCOL Performed By: #### L 501.080 ####[facility] [address] [place], [address] FINGERSTICK GLU 202 mg/dL High 74-106 [facility] Comment on above: Result Comment: JEFRY GEMENT OF PATIENT CARE PER NURSING PROTOCOL Performed By: #### L 501.080 ####[facility] [address] [place], [address] FINGERSTICK GLU 173 mg/dL High 74-106 [facility] Comment on above: Result Comment: JEFRY GEMENT OF PATIENT CARE PER NURSING PROTOCOL Performed By: #### L 501.080 ####[facility] [address] [place], [address] FINGERSTICK GLU 171 mg/dL High 74-106 [facility] Comment on above: Result Comment: JEFRY GEMENT OF PATIENT CARE PER NURSING PROTOCOL Performed By: #### L 501.080 ####[facility] [address] [place], [address] CBC W/Diff, Automatedon 07- Absolute Lymph 0.70 X10 3/uL Low 0.83-4.51 [facility] Comment on above: Performed By: #### L 500.2500, L100.0100 ####[facility] [address] [place], [address] Absolute Neut 4.9 X10 3/uL Normal 2.0-7.7 [facility] Comment on above: Performed By: #### L 500.2500, L100.0100 ####[facility] [address] [place], [address] Basophils/100 WBC (Bld) 0.2 % Normal 0-1 [facility] Comment on above: Performed By: #### L 500.2500, L100.0100 ####[facility] [address] [place], [address] Eosinophils/100 WBC (Bld) 0.3 % Normal 0-5 [facility] Comment on above: Performed By: #### L 500.2500, L100.0100 ####[facility] [address] [place], [address] Erythrocyte distribution width (RBC) [Ratio] 17.7 % High 11.6-14.6 [facility] Comment on above: Performed By: #### L 500.2500, L100.0100 ####[facility] [address] [place], [address] Hematocrit (Bld) [Volume fraction] 23.3 % Low 40-54 [facility] Comment on above: Performed By: #### L 500.2500, L100.0100 ####[facility] [address] [place], [address] Hemoglobin (Bld) [Mass/Vol] 7.1 g/dL Low 13.0-16.5 [facility] Comment on above: Performed By: #### L 500.2500, L100.0100 ####[facility] [address] [place], [address] IG% 1.000 High 0.0-0.9 [facility] Comment on above: Result Comment: IG% - Immature Granulocytes (promyelocytes, myelocytes andmetamyelocytes) > 1% indicates that a LEFT SHIFT is Present. Performed By: #### L 500.2500, L100.0100 ####[facility] [address] [place], [address] Lymphocytes/100 WBC (Bld) 11.5 % Low 19-41 [facility] Comment on above: Performed By: #### L 500.2500, L100.0100 ####[facility] [address] [place], [address] MCH (RBC) [Entitic mass] 27.3 pg Normal 27.0-32.0 [facility] Comment on above: Performed By: #### L 500.2500, L100.0100 ####[facility] [address] [place], [address] MCHC (RBC) [Mass/Vol] 30.5 g/dL Low 32-36 [facility] Comment on above: Performed By: #### L 500.2500, L100.0100 ####[facility] [address] [place], [address] MCV (RBC) [Entitic vol] 89.6 fL Normal 80-94 [facility] Comment on above: Performed By: #### L 500.2500, L100.0100 ####[facility] [address] [place], [address] Monocytes/100 WBC (Bld) 5.8 % Normal 0-10 [facility] Comment on above: Performed By: #### L 500.2500, L100.0100 ####[facility] [address] [place], [address] Neutrophils/100 WBC (Bld) 81.2 % High 47-70 [facility] Comment on above: Performed By: #### L 500.2500, L100.0100 ####[facility] [address] [place], [address] Nucleated RBC (Bld) [#/Vol] 0 10*3/uL Normal 0-5 [facility] Comment on above: Performed By: #### L 500.2500, L100.0100 ####[facility] [address] [place], [address] Platelet mean volume (Bld) [Entitic vol] 10.4 fL Normal 6.2-12.0 [facility] Comment on above: Performed By: #### L 500.2500, L100.0100 ####[facility] [address] [place], [address] Platelets (Bld) [#/Vol] 126 10*3/uL Low 150-450 [facility] Comment on above: Performed By: #### L 500.2500, L100.0100 ####[facility] [address] [place], [address] RBC (Bld) [#/Vol] 2.60 10*6/uL Low 4.6-6.2 [facility] Comment on above: Performed By: #### L 500.2500, L100.0100 ####[facility] [address] [place], [address] RDW SD 58.4 fl High 35.1-43.9 [facility] Comment on above: Performed By: #### L 500.2500, L100.0100 ####[facility] [address] [place], [address] WBC (Bld) [#/Vol] 6.1 10*3/uL Normal 4.4-11.0 [facility] Comment on above: Performed By: #### L 500.2500, L100.0100 ####[facility] [address] [place], [address] Carbon dioxide, total [Moles /volume] in Central venous bloodOrdered By: Naresh Florez on 09-22-2024 CO2 [Moles/Vol] 27.9 mmol/L 21.0-32.0 [facility] Chloride assayOrdered By: Jama Florez on 09-22-2024 Chloride [Moles/Vol] 99 mmol/L 98-108 [facility] Eosinophil percentageOrdered By: Naresh Florez on 09-22-2024 Eosinophils/100 WBC (Bld) 0.3 % 0-5 [facility] Erythrocyte distribution wid th ratioOrdered By: Naresh Florez on 09-22-2024 Erythrocyte distribution width (RBC) [Ratio] 17.7 % High 11.6-14.6 [facility] Erythrocyte distribution wid th standard deviationOrdered By: Naresh Florez on 09-22-2024 Erythrocyte distribution width (RBC) [Ratio] 58.4 fl High 35.1-43.9 [facility] Glomerular filtration rate ( GFR) estimation/1.73 sq m using serum, plasma, or whole bOrdered By: Naresh Florez on 09-22-2024 GFR/1.73 sq M.predicted among non-blacks MDRD (S/P/Bld) [Vol rate/Area] 96 mL/min/{1.73_m2} >60 [facility] Hematocrit Auto (Bld) [Volum e fraction]Ordered By: Naresh Florez on 09-22-2024 Hematocrit (Bld) [Volume fraction] 23.3 % Low 40-54 [facility] Hemoglobin measurementOrdere d By: Naresh Florez on 09-22-2024 Hemoglobin (Bld) [Mass/Vol] 7.1 g/dL Low 13.0-16.5 [facility] Immature granulocytes/100 WB C Auto (Bld)Ordered By: Naresh Florez on 09-22-2024 Immature granulocytes/100 WBC (Bld) 1.000 % High 0.0-0.9 [facility] MCV (mean corpuscular volume ) determinationOrdered By: Naresh Florez on 09-22-2024 MCV (RBC) [Entitic vol] 89.6 fL 80-94 [facility] Mean corpuscular hemoglobin (MCH) determinationOrdered By: Naresh Florez on 09-22-2024 MCH (RBC) [Entitic mass] 27.3 pg 27.0-32.0 [facility] Monocyte percentageOrdered B y: Naresh Florez on 09-22-2024 Monocytes/100 WBC (Bld) 5.8 % 0-10 [facility] Neutrophil percentageOrdered By: Naresh Florez on 09-22-2024 Neutrophils/100 WBC (Bld) 81.2 % High 47-70 [facility] Platelet countOrdered By: Jama Florez on 09-22-2024 Platelets (Bld) [#/Vol] 126 10*3/uL Low 150-450 [facility] Potassium measurement (mass/ volume)Ordered By: Naresh Florez on 09-22-2024 Potassium (Unsp spec) [Mass/Vol] 3.7 mmol/L 3.3-5.1 [facility] RBC Auto (Bld) [#/Vol]Ordere d By: Naresh Florez on 09-22-2024 RBC (Bld) [#/Vol] 2.60 10*6/uL Low 4.6-6.2 [facility] Serum creatinine measurement (mass/volume)Ordered By: Naresh Florez on 09-22-2024 Creatinine [Mass/Vol] 0.81 mg/dL 0.70-1.20 [facility] Serum glucose measurement (m ass/volume)Ordered By: Naresh Florez on 09-22-2024 Glucose [Mass/Vol] 123 mg/dL High 70-99 [facility] Serum or plasma calcium alfreda urement (mass/volume)Ordered By: Naresh Florez on 09-22-2024 Calcium [Mass/Vol] 10.4 mg/dL 7.6-11.0 [facility] Serum or plasma urea nitroge n measurement (mass/volume)Ordered By: Naresh Florez on 09-22-2024 Urea nitrogen [Mass/Vol] 9 mg/dL 4-19 [facility] Sodium levelOrdered By: Naresh Florez on 09-22-2024 Sodium [Moles/Vol] 134 mmol/L 133-145 [facility] White blood cell (WBC) count Ordered By: Naresh Florez on 09-22-2024 WBC (Bld) [#/Vol] 6.1 10*3/uL 4.4-11.0 [facility] AST(SGOT)on 09-21-2024 AST [Catalytic activity/Vol] 29 U/L Normal <=37 [facility] Comment on above: Performed By: #### L 300.3900, L100.0100, L300.4310, L501.4100, L500.2500, L501.4405 ####[facility] [address] [place], [address] Activated partial thrombopla stin time (aPTT) in platelet poor plasma by coagulation aOrdered By: Jameel Lakhani on 09-21-2024 aPTT Coag (PPP) [Time] 43.3 s High 24.1-36.2 [facility] Alanine Aminotransferas (SGP T)on 09-21-2024 ALT [Catalytic activity/Vol] 35 U/L Normal <=46 [facility] Comment on above: Performed By: #### L 300.3900, L100.0100, L300.4310, L501.4100, L500.2500, L501.4405 ####[facility] [address] [place], [address] Basic Metabolic Profile (BMP )on 09-21-2024 BUN/CRE 10.9 RATIO Normal 10-20 [facility] Comment on above: Performed By: #### L 300.3900, L100.0100, L300.4310, L501.4100, L500.2500, L501.4405 ####[facility] [address] [place], [address] Calcium [Mass/Vol] 10.3 mg/dL Normal 7.6-11.0 [facility] Comment on above: Performed By: #### L 300.3900, L100.0100, L300.4310, L501.4100, L500.2500, L501.4405 ####[facility] [address] [place], [address] Chloride [Moles/Vol] 100 mmol/L Normal 98-108 [facility] Comment on above: Performed By: #### L 300.3900, L100.0100, L300.4310, L501.4100, L500.2500, L501.4405 ####[facility] [address] [place], [address] CO2 [Moles/Vol] 26.8 mmol/L Normal 21.0-32.0 [facility] Comment on above: Performed By: #### L 300.3900, L100.0100, L300.4310, L501.4100, L500.2500, L501.4405 ####[facility] [address] [place], [address] Creatinine [Mass/Vol] 0.90 mg/dL Normal 0.70-1.20 [facility] Comment on above: Performed By: #### L 300.3900, L100.0100, L300.4310, L501.4100, L500.2500, L501.4405 ####[facility] [address] [place], [address] ECRCL 78.56 ml/min Normal 50-250 [facility] Comment on above: Performed By: #### L 300.3900, L100.0100, L300.4310, L501.4100, L500.2500, L501.4405 ####[facility] [address] [place], [address] GAP 9 Normal 5-15 [facility] Comment on above: Performed By: #### L 300.3900, L100.0100, L300.4310, L501.4100, L500.2500, L501.4405 ####[facility] [address] [place], [address] GFR/1.73 sq M.predicted among non-blacks MDRD (S/P/Bld) [Vol rate/Area] 93 mL/min/{1.73_m2} Normal >60 [facility] Comment on above: Result Comment: mL/m in/1.73m2 CKD-EPI Creatinine Equation (2020) Performed By: #### L 300.3900, L100.0100, L300.4310, L501.4100, L500.2500, L501.4405 ####[facility] [address] [place], [address] Glucose [Mass/Vol] 140 mg/dL High 70-99 [facility] Comment on above: Performed By: #### L 300.3900, L100.0100, L300.4310, L501.4100, L500.2500, L501.4405 ####[facility] [address] [place], [address] Potassium [Moles/Vol] 4.1 mmol/L Normal 3.3-5.1 [facility] Comment on above: Performed By: #### L 300.3900, L100.0100, L300.4310, L501.4100, L500.2500, L501.4405 ####[facility] [address] [place], [address] Sodium [Moles/Vol] 136 mmol/L Normal 133-145 [facility] Comment on above: Performed By: #### L 300.3900, L100.0100, L300.4310, L501.4100, L500.2500, L501.4405 ####[facility] [address] [place], [address] Urea nitrogen [Mass/Vol] 10 mg/dL Normal 4-19 [facility] Comment on above: Performed By: #### L 300.3900, L100.0100, L300.4310, L501.4100, L500.2500, L501.4405 ####[facility] [address] [place], [address] Bedside Glucoseon 09-21-2024 FINGERSTICK GLU 111 mg/dL High 74-106 [facility] Comment on above: Result Comment: JEFRY GEMENT OF PATIENT CARE PER NURSING PROTOCOL Performed By: #### L 501.080 ####[facility] [address] [place], [address] FINGERSTICK GLU 193 mg/dL High 74-106 [facility] Comment on above: Result Comment: JEFRY GEMENT OF PATIENT CARE PER NURSING PROTOCOL Performed By: #### L 501.080 ####[facility] [address] [place], [address] FINGERSTICK GLU 196 mg/dL High 74-106 [facility] Comment on above: Result Comment: JEFRY GEMENT OF PATIENT CARE PER NURSING PROTOCOL Performed By: #### L 501.080 ####[facility] [address] [place], [address] FINGERSTICK GLU 180 mg/dL High 74-106 [facility] Comment on above: Result Comment: JEFRY GEMENT OF PATIENT CARE PER NURSING PROTOCOL Performed By: #### L 501.080 ####[facility] [address] [place], [address] CBC W/Diff, Automatedon 09-12 Absolute Lymph 0.53 X10 3/uL Low 0.83-4.51 [facility] Comment on above: Performed By: #### L 300.3900, L100.0100, L300.4310, L501.4100, L500.2500, L501.4405 ####[facility] [address] [place], [address] Absolute Neut 6.5 X10 3/uL Normal 2.0-7.7 [facility] Comment on above: Performed By: #### L 300.3900, L100.0100, L300.4310, L501.4100, L500.2500, L501.4405 ####[facility] [address] [place], [address] Basophils/100 WBC (Bld) 0.3 % Normal 0-1 [facility] Comment on above: Performed By: #### L 300.3900, L100.0100, L300.4310, L501.4100, L500.2500, L501.4405 ####[facility] [address] [place], [address] Eosinophils/100 WBC (Bld) 0.3 % Normal 0-5 [facility] Comment on above: Performed By: #### L 300.3900, L100.0100, L300.4310, L501.4100, L500.2500, L501.4405 ####[facility] [address] [place], [address] Erythrocyte distribution width (RBC) [Ratio] 17.9 % High 11.6-14.6 [facility] Comment on above: Performed By: #### L 300.3900, L100.0100, L300.4310, L501.4100, L500.2500, L501.4405 ####[facility] [address] [place], [address] Hematocrit (Bld) [Volume fraction] 24.2 % Low 40-54 [facility] Comment on above: Performed By: #### L 300.3900, L100.0100, L300.4310, L501.4100, L500.2500, L501.4405 ####[facility] [address] [place], [address] Hemoglobin (Bld) [Mass/Vol] 7.3 g/dL Low 13.0-16.5 [facility] Comment on above: Performed By: #### L 300.3900, L100.0100, L300.4310, L501.4100, L500.2500, L501.4405 ####[facility] [address] [place], [address] IG% 0.800 Normal 0.0-0.9 [facility] Comment on above: Result Comment: IG% - Immature Granulocytes (promyelocytes, myelocytes andmetamyelocytes) > 1% indicates that a LEFT SHIFT is Present. Performed By: #### L 300.3900, L100.0100, L300.4310, L501.4100, L500.2500, L501.4405 ####[facility] [address] [place], [address] Lymphocytes/100 WBC (Bld) 7.0 % Low 19-41 [facility] Comment on above: Performed By: #### L 300.3900, L100.0100, L300.4310, L501.4100, L500.2500, L501.4405 ####[facility] [address] [place], [address] MCH (RBC) [Entitic mass] 27.9 pg Normal 27.0-32.0 [facility] Comment on above: Performed By: #### L 300.3900, L100.0100, L300.4310, L501.4100, L500.2500, L501.4405 ####[facility] [address] [place], [address] MCHC (RBC) [Mass/Vol] 30.2 g/dL Low 32-36 [facility] Comment on above: Performed By: #### L 300.3900, L100.0100, L300.4310, L501.4100, L500.2500, L501.4405 ####[facility] [address] [place], [address] MCV (RBC) [Entitic vol] 92.4 fL Normal 80-94 [facility] Comment on above: Performed By: #### L 300.3900, L100.0100, L300.4310, L501.4100, L500.2500, L501.4405 ####[facility] [address] [place], [address] Monocytes/100 WBC (Bld) 5.7 % Normal 0-10 [facility] Comment on above: Performed By: #### L 300.3900, L100.0100, L300.4310, L501.4100, L500.2500, L501.4405 ####[facility] [address] [place], [address] Neutrophils/100 WBC (Bld) 85.9 % High 47-70 [facility] Comment on above: Performed By: #### L 300.3900, L100.0100, L300.4310, L501.4100, L500.2500, L501.4405 ####[facility] [address] [place], [address] Nucleated RBC (Bld) [#/Vol] 0 10*3/uL Normal 0-5 [facility] Comment on above: Performed By: #### L 300.3900, L100.0100, L300.4310, L501.4100, L500.2500, L501.4405 ####[facility] [address] [place], [address] Platelet mean volume (Bld) [Entitic vol] 11.0 fL Normal 6.2-12.0 [facility] Comment on above: Performed By: #### L 300.3900, L100.0100, L300.4310, L501.4100, L500.2500, L501.4405 ####[facility] [address] [place], [address] Platelets (Bld) [#/Vol] 138 10*3/uL Low 150-450 [facility] Comment on above: Performed By: #### L 300.3900, L100.0100, L300.4310, L501.4100, L500.2500, L501.4405 ####[facility] [address] [place], [address] RBC (Bld) [#/Vol] 2.62 10*6/uL Low 4.6-6.2 [facility] Comment on above: Performed By: #### L 300.3900, L100.0100, L300.4310, L501.4100, L500.2500, L501.4405 ####[facility] [address] [place], [address] RDW SD 60.6 fl High 35.1-43.9 [facility] Comment on above: Performed By: #### L 300.3900, L100.0100, L300.4310, L501.4100, L500.2500, L501.4405 ####[facility] [address] [place], [address] WBC (Bld) [#/Vol] 7.6 10*3/uL Normal 4.4-11.0 [facility] Comment on above: Performed By: #### L 300.3900, L100.0100, L300.4310, L501.4100, L500.2500, L501.4405 ####[facility] [address] [place], [address] Consultation - Surgicalon Consultation - Surgical Normal [facility] No Panel InformationOrdered By: Jameel Lakhani on 09-21-2024 29 U/L <38 [facility] Partial Thromboplast Timeon 09-21-2024 aPTT Coag (Bld) [Time] 43.3 s High 24.1-36.2 [facility] Comment on above: Performed By: #### L 300.3900, L100.0100, L300.4310, L501.4100, L500.2500, L501.4405 ####[facility] [address] [place], [address] Prothrombin Time w/INRon INR Coag (PPP) [Relative time] 1.0 {INR} Normal [facility] Comment on above: Performed By: #### L 300.3900, L100.0100, L300.4310, L501.4100, L500.2500, L501.4405 ####[facility] [address] [place], [address] PT Coag (PPP) [Time] 13.7 s Normal 11.7-14.9 [facility] Comment on above: Performed By: #### L 300.3900, L100.0100, L300.4310, L501.4100, L500.2500, L501.4405 ####[facility] [address] [place], [address] Prothrombin timeOrdered By: Jameel Lakhani on 09-21-2024 PT Coag (PPP) [Time] 13.7 s 11.7-14.9 [facility] Serum or plasma alanine delaney otransferase (ALT) measurementOrdered By: Jameel Lakhani on 09-21-2024 ALT [Catalytic activity/Vol] 35 U/L <47 [facility] Basic Metabolic Profile (BMP )on 09-20-2024 BUN/CRE 12.9 RATIO Normal 10-20 [facility] Comment on above: Performed By: #### L 501.2300, L500.2500, L100.0100 ####[facility] [address] [place], [address] Calcium [Mass/Vol] 10.0 mg/dL Normal 7.6-11.0 [facility] Comment on above: Performed By: #### L 501.2300, L500.2500, L100.0100 ####[facility] [address] [place], [address] Chloride [Moles/Vol] 99 mmol/L Normal 98-108 [facility] Comment on above: Performed By: #### L 501.2300, L500.2500, L100.0100 ####[facility] [address] [place], [address] CO2 [Moles/Vol] 26.0 mmol/L Normal 21.0-32.0 [facility] Comment on above: Performed By: #### L 501.2300, L500.2500, L100.0100 ####[facility] [address] [place], [address] Creatinine [Mass/Vol] 0.89 mg/dL Normal 0.70-1.20 [facility] Comment on above: Performed By: #### L 501.2300, L500.2500, L100.0100 ####[facility] [address] [place], [address] ECRCL 79.44 ml/min Normal 50-250 [facility] Comment on above: Performed By: #### L 501.2300, L500.2500, L100.0100 ####[facility] [address] [place], [address] GAP 9 Normal 5-15 [facility] Comment on above: Performed By: #### L 501.2300, L500.2500, L100.0100 ####[facility] [address] [place], [address] GFR/1.73 sq M.predicted among non-blacks MDRD (S/P/Bld) [Vol rate/Area] 93 mL/min/{1.73_m2} Normal >60 [facility] Comment on above: Result Comment: mL/m in/1.73m2 CKD-EPI Creatinine Equation (2020) Performed By: #### L 501.2300, L500.2500, L100.0100 ####[facility] [address] [place], [address] Glucose [Mass/Vol] 117 mg/dL High 70-99 [facility] Comment on above: Performed By: #### L 501.2300, L500.2500, L100.0100 ####[facility] [address] [place], [address] Potassium [Moles/Vol] 4.3 mmol/L Normal 3.3-5.1 [facility] Comment on above: Performed By: #### L 501.2300, L500.2500, L100.0100 ####[facility] [address] [place], [address] Sodium [Moles/Vol] 134 mmol/L Normal 133-145 [facility] Comment on above: Performed By: #### L 501.2300, L500.2500, L100.0100 ####[facility] [address] [place], [address] Urea nitrogen [Mass/Vol] 12 mg/dL Normal 4-19 [facility] Comment on above: Performed By: #### L 501.2300, L500.2500, L100.0100 ####[facility] [address] [place], [address] Bedside Glucoseon - FINGERSTICK GLU 198 mg/dL High 74-106 [facility] Comment on above: Result Comment: JEFRY GEMENT OF PATIENT CARE PER NURSING PROTOCOL Performed By: #### L 501.080 ####[facility] [address] [place], [address] FINGERSTICK GLU 198 mg/dL High 74-106 [facility] Comment on above: Result Comment: JEFRY GEMENT OF PATIENT CARE PER NURSING PROTOCOL Performed By: #### L 501.080 ####[facility] [address] [place], [address] CBC W/Diff, Automatedon 07-0 Absolute Lymph 0.68 X10 3/uL Low 0.83-4.51 [facility] Comment on above: Performed By: #### L 501.2300, L500.2500, L100.0100 ####[facility] [address] [place], [address] Absolute Neut 6.7 X10 3/uL Normal 2.0-7.7 [facility] Comment on above: Performed By: #### L 501.2300, L500.2500, L100.0100 ####[facility] [address] [place], [address] Basophils/100 WBC (Bld) 0.0 % Normal 0-1 [facility] Comment on above: Performed By: #### L 501.2300, L500.2500, L100.0100 ####[facility] [address] [place], [address] Eosinophils/100 WBC (Bld) 0.1 % Normal 0-5 [facility] Comment on above: Performed By: #### L 501.2300, L500.2500, L100.0100 ####[facility] [address] [place], [address] Erythrocyte distribution width (RBC) [Ratio] 17.6 % High 11.6-14.6 [facility] Comment on above: Performed By: #### L 501.2300, L500.2500, L100.0100 ####[facility] [address] [place], [address] Hematocrit (Bld) [Volume fraction] 24.0 % Low 40-54 [facility] Comment on above: Performed By: #### L 501.2300, L500.2500, L100.0100 ####[facility] [address] [place], [address] Hemoglobin (Bld) [Mass/Vol] 7.2 g/dL Low 13.0-16.5 [facility] Comment on above: Performed By: #### L 501.2300, L500.2500, L100.0100 ####[facility] [address] [place], [address] IG% 0.800 Normal 0.0-0.9 [facility] Comment on above: Result Comment: IG% - Immature Granulocytes (promyelocytes, myelocytes andmetamyelocytes) > 1% indicates that a LEFT SHIFT is Present. Performed By: #### L 501.2300, L500.2500, L100.0100 ####[facility] [address] [place], [address] Lymphocytes/100 WBC (Bld) 8.7 % Low 19-41 [facility] Comment on above: Performed By: #### L 501.2300, L500.2500, L100.0100 ####[facility] [address] [place], [address] MCH (RBC) [Entitic mass] 27.5 pg Normal 27.0-32.0 [facility] Comment on above: Performed By: #### L 501.2300, L500.2500, L100.0100 ####[facility] [address] [place], [address] MCHC (RBC) [Mass/Vol] 30.0 g/dL Low 32-36 [facility] Comment on above: Performed By: #### L 501.2300, L500.2500, L100.0100 ####[facility] [address] [place], [address] MCV (RBC) [Entitic vol] 91.6 fL Normal 80-94 [facility] Comment on above: Performed By: #### L 501.2300, L500.2500, L100.0100 ####[facility] [address] [place], [address] Monocytes/100 WBC (Bld) 5.3 % Normal 0-10 [facility] Comment on above: Performed By: #### L 501.2300, L500.2500, L100.0100 ####[facility] [address] [place], [address] Neutrophils/100 WBC (Bld) 85.1 % High 47-70 [facility] Comment on above: Performed By: #### L 501.2300, L500.2500, L100.0100 ####[facility] [address] [place], [address] Nucleated RBC (Bld) [#/Vol] 0 10*3/uL Normal 0-5 [facility] Comment on above: Performed By: #### L 501.2300, L500.2500, L100.0100 ####[facility] [address] [place], [address] Platelet mean volume (Bld) [Entitic vol] 10.5 fL Normal 6.2-12.0 [facility] Comment on above: Performed By: #### L 501.2300, L500.2500, L100.0100 ####[facility] [address] [place], [address] Platelets (Bld) [#/Vol] 134 10*3/uL Low 150-450 [facility] Comment on above: Performed By: #### L 501.2300, L500.2500, L100.0100 ####[facility] [address] [place], [address] RBC (Bld) [#/Vol] 2.62 10*6/uL Low 4.6-6.2 [facility] Comment on above: Performed By: #### L 501.2300, L500.2500, L100.0100 ####[facility] [address] [place], [address] RDW SD 59.3 fl High 35.1-43.9 [facility] Comment on above: Performed By: #### L 501.2300, L500.2500, L100.0100 ####[facility] [address] [place], [address] WBC (Bld) [#/Vol] 7.9 10*3/uL Normal 4.4-11.0 [facility] Comment on above: Performed By: #### L 501.2300, L500.2500, L100.0100 ####[facility] [address] [place], [address] Lower Ext Art Exam w/o Exerc moon 09-20-2024 Lower Ext Art Exam w/o Exercis Normal [facility] Phosphoruson 09-20-2024 Phosphate [Mass/Vol] 3.2 mg/dL Normal 2.7-4.5 [facility] Comment on above: Performed By: #### L 501.2300, L500.2500, L100.0100 ####[facility] [address] [place], [address] 12 Lead EKGon 09-19-2024 12 Lead EKG Normal [facility] Abdomen/Pelvis W IV Cont ONL Yon 09-19-2024 Abdomen/Pelvis W IV Cont ONLY Normal [facility] Bedside Glucoseon 09-19-2024 FINGERSTICK GLU 97 mg/dL Normal 74-106 [facility] Comment on above: Result Comment: JEFRY TURNER OF PATIENT CARE PER NURSING PROTOCOL Performed By: #### L 501.080 ####[facility] [address] [place], [address] Bilirubin Test strip Ql (U)O rdered By: Иван Aranda on 09-19-2024 Bilirubin Ql (U) Negative Negative [facility] Bilirubin, totalOrdered By: Иван Aranda on 09-19-2024 Bilirubin [Mass/Vol] 0.49 mg/dL 0.00-1.30 [facility] Blood cultureOrdered By: Kavon Aranda on 09-19-2024 Bacteria identified Cx Nom (Bld) No growth in 5 days. [facility] Bacteria identified Cx Nom (Bld) No growth in 5 days. [facility] CBC W/Diff, Automatedon 07-0 8-2025 Absolute Lymph 0.96 X10 3/uL Normal 0.83-4.51 [facility] Comment on above: Performed By: #### L 503.6005, L500.4050, L100.0100, L501.2450, L101.9900 ####[facility] [address] [place], [address] Absolute Neut 9.8 X10 3/uL High 2.0-7.7 [facility] Comment on above: Performed By: #### L 503.6005, L500.4050, L100.0100, L501.2450, L101.9900 ####[facility] [address] [place], [address] Basophils/100 WBC (Bld) 0.1 % Normal 0-1 [facility] Comment on above: Performed By: #### L 503.6005, L500.4050, L100.0100, L501.2450, L101.9900 ####[facility] [address] [place], [address] Eosinophils/100 WBC (Bld) 0.2 % Normal 0-5 [facility] Comment on above: Performed By: #### L 503.6005, L500.4050, L100.0100, L501.2450, L101.9900 ####[facility] [address] [place], [address] Erythrocyte distribution width (RBC) [Ratio] 17.5 % High 11.6-14.6 [facility] Comment on above: Performed By: #### L 503.6005, L500.4050, L100.0100, L501.2450, L101.9900 ####[facility] [address] [place], [address] Hematocrit (Bld) [Volume fraction] 27.4 % Low 40-54 [facility] Comment on above: Performed By: #### L 503.6005, L500.4050, L100.0100, L501.2450, L101.9900 ####[facility] [address] [place], [address] Hemoglobin (Bld) [Mass/Vol] 8.2 g/dL Low 13.0-16.5 [facility] Comment on above: Performed By: #### L 503.6005, L500.4050, L100.0100, L501.2450, L101.9900 ####[facility] [address] [place], [address] IG% 1.200 High 0.0-0.9 [facility] Comment on above: Result Comment: IG% - Immature Granulocytes (promyelocytes, myelocytes andmetamyelocytes) > 1% indicates that a LEFT SHIFT is Present. Performed By: #### L 503.6005, L500.4050, L100.0100, L501.2450, L101.9900 ####[facility] [address] [place], [address] Lymphocytes/100 WBC (Bld) 8.3 % Low 19-41 [facility] Comment on above: Performed By: #### L 503.6005, L500.4050, L100.0100, L501.2450, L101.9900 ####[facility] [address] [place], [address] MCH (RBC) [Entitic mass] 27.2 pg Normal 27.0-32.0 [facility] Comment on above: Performed By: #### L 503.6005, L500.4050, L100.0100, L501.2450, L101.9900 ####[facility] [address] [place], [address] MCHC (RBC) [Mass/Vol] 29.9 g/dL Low 32-36 [facility] Comment on above: Performed By: #### L 503.6005, L500.4050, L100.0100, L501.2450, L101.9900 ####[facility] [address] [place], [address] MCV (RBC) [Entitic vol] 91.0 fL Normal 80-94 [facility] Comment on above: Performed By: #### L 503.6005, L500.4050, L100.0100, L501.2450, L101.9900 ####[facility] [address] [place], [address] Monocytes/100 WBC (Bld) 5.3 % Normal 0-10 [facility] Comment on above: Performed By: #### L 503.6005, L500.4050, L100.0100, L501.2450, L101.9900 ####[facility] [address] [place], [address] Neutrophils/100 WBC (Bld) 84.9 % High 47-70 [facility] Comment on above: Performed By: #### L 503.6005, L500.4050, L100.0100, L501.2450, L101.9900 ####[facility] [address] [place], [address] Nucleated RBC (Bld) [#/Vol] 0 10*3/uL Normal 0-5 [facility] Comment on above: Performed By: #### L 503.6005, L500.4050, L100.0100, L501.2450, L101.9900 ####[facility] [address] [place], [address] Platelet mean volume (Bld) [Entitic vol] 10.6 fL Normal 6.2-12.0 [facility] Comment on above: Performed By: #### L 503.6005, L500.4050, L100.0100, L501.2450, L101.9900 ####[facility] [address] [place], [address] Platelets (Bld) [#/Vol] 158 10*3/uL Normal 150-450 [facility] Comment on above: Performed By: #### L 503.6005, L500.4050, L100.0100, L501.2450, L101.9900 ####[facility] [address] [place], [address] RBC (Bld) [#/Vol] 3.01 10*6/uL Low 4.6-6.2 [facility] Comment on above: Performed By: #### L 503.6005, L500.4050, L100.0100, L501.2450, L101.9900 ####[facility] [address] [place], [address] RDW SD 58.8 fl High 35.1-43.9 [facility] Comment on above: Performed By: #### L 503.6005, L500.4050, L100.0100, L501.2450, L101.9900 ####[facility] [address] [place], [address] WBC (Bld) [#/Vol] 11.5 10*3/uL High 4.4-11.0 [facility] Comment on above: Performed By: #### L 503.6005, L500.4050, L100.0100, L501.2450, L101.9900 ####[facility] [address] [place], [address] CRPon 09-19-2024 C-REACTIVE PROT 110.00 mg/L High 0.0-3.0 [facility] Comment on above: Performed By: #### L 501.4021, L501.5200, L501.6710 ####[facility] [address] [place], [address] CTA Chest W/WO Contraston CTA Chest W/WO Contrast Normal [facility] Comprehensive Metabolic Prof ilon 09-19-2024 Albumin [Mass/Vol] 3.0 g/dL Low 3.4-4.8 [facility] Comment on above: Performed By: #### L 503.6005, L500.4050, L100.0100, L501.2450, L101.9900 ####[facility] [address] [place], [address] Albumin/Globulin [Mass ratio] 0.8 {ratio} Low 0.9-2.4 [facility] Comment on above: Performed By: #### L 503.6005, L500.4050, L100.0100, L501.2450, L101.9900 ####[facility] [address] [place], [address] ALK PHOS 112 U/L Normal 40-129 [facility] Comment on above: Performed By: #### L 503.6005, L500.4050, L100.0100, L501.2450, L101.9900 ####[facility] [address] [place], [address] ALT [Catalytic activity/Vol] 50 U/L High <=46 [facility] Comment on above: Performed By: #### L 503.6005, L500.4050, L100.0100, L501.2450, L101.9900 ####[facility] [address] [place], [address] AST [Catalytic activity/Vol] 42 U/L High <=37 [facility] Comment on above: Performed By: #### L 503.6005, L500.4050, L100.0100, L501.2450, L101.9900 ####[facility] [address] [place], [address] Bilirubin [Mass/Vol] 0.49 mg/dL Normal 0.00-1.30 [facility] Comment on above: Performed By: #### L 503.6005, L500.4050, L100.0100, L501.2450, L101.9900 ####[facility] [address] [place], [address] BUN/CRE 14.3 RATIO Normal 10-20 [facility] Comment on above: Performed By: #### L 503.6005, L500.4050, L100.0100, L501.2450, L101.9900 ####[facility] [address] [place], [address] Calcium [Mass/Vol] 10.5 mg/dL Normal 7.6-11.0 [facility] Comment on above: Performed By: #### L 503.6005, L500.4050, L100.0100, L501.2450, L101.9900 ####[facility] [address] [place], [address] Chloride [Moles/Vol] 94 mmol/L Low 98-108 [facility] Comment on above: Performed By: #### L 503.6005, L500.4050, L100.0100, L501.2450, L101.9900 ####[facility] [address] [place], [address] CO2 [Moles/Vol] 24.4 mmol/L Normal 21.0-32.0 [facility] Comment on above: Performed By: #### L 503.6005, L500.4050, L100.0100, L501.2450, L101.9900 ####[facility] [address] [place], [address] Creatinine [Mass/Vol] 0.86 mg/dL Normal 0.70-1.20 [facility] Comment on above: Performed By: #### L 503.6005, L500.4050, L100.0100, L501.2450, L101.9900 ####[facility] [address] [place], [address] ECRCL 82.21 ml/min Normal 50-250 [facility] Comment on above: Performed By: #### L 503.6005, L500.4050, L100.0100, L501.2450, L101.9900 ####[facility] [address] [place], [address] GAP 11 Normal 5-15 [facility] Comment on above: Performed By: #### L 503.6005, L500.4050, L100.0100, L501.2450, L101.9900 ####[facility] [address] [place], [address] GFR/1.73 sq M.predicted among non-blacks MDRD (S/P/Bld) [Vol rate/Area] 94 mL/min/{1.73_m2} Normal >60 [facility] Comment on above: Result Comment: mL/m in/1.73m2 CKD-EPI Creatinine Equation (2020) Performed By: #### L 503.6005, L500.4050, L100.0100, L501.2450, L101.9900 ####[facility] [address] [place], [address] Globulin (S) [Mass/Vol] 3.5 g/dL Normal 2.2-4.2 [facility] Comment on above: Performed By: #### L 503.6005, L500.4050, L100.0100, L501.2450, L101.9900 ####[facility] [address] [place], [address] Glucose [Mass/Vol] 124 mg/dL High 70-99 [facility] Comment on above: Performed By: #### L 503.6005, L500.4050, L100.0100, L501.2450, L101.9900 ####[facility] [address] [place], [address] Potassium [Moles/Vol] 4.9 mmol/L Normal 3.3-5.1 [facility] Comment on above: Performed By: #### L 503.6005, L500.4050, L100.0100, L501.2450, L101.9900 ####[facility] [address] [place], [address] Sodium [Moles/Vol] 129 mmol/L Low 133-145 [facility] Comment on above: Performed By: #### L 503.6005, L500.4050, L100.0100, L501.2450, L101.9900 ####[facility] [address] [place], [address] T PROT 6.5 g/dL Normal 5.9-8.4 [facility] Comment on above: Performed By: #### L 503.6005, L500.4050, L100.0100, L501.2450, L101.9900 ####[facility] [address] [place], [address] Urea nitrogen [Mass/Vol] 12 mg/dL Normal 4-19 [facility] Comment on above: Performed By: #### L 503.6005, L500.4050, L100.0100, L501.2450, L101.9900 ####[facility] [address] [place], [address] Emergency Department Summary on 09-19-2024 Emergency Department Summary Normal [facility] Erythrocyte Sed Rateon 09-19 SED RATE 53 mm/hr High 0-20 [facility] Comment on above: Performed By: #### L 503.6005, L500.4050, L100.0100, L501.2450, L101.9900 ####[facility] [address] [place], [address] Erythrocyte sedimentation ra teOrdered By: Иван Aranda on 09-19-2024 ESR (Bld) [Velocity] 53 mm/h High 0-20 [facility] Foot min 3 Viewson 5 Foot min 3 Views Normal [facility] H AND P Exam - Hospitaliston 09-19-2024 H&P Exam - Hospitalist Normal [facility] HH, Hemoglobin AND Hematocri ton 09-19-2024 Hematocrit (Bld) [Volume fraction] 26.7 % Low 40-54 [facility] Comment on above: Performed By: #### L 100.0600 ####[facility] [address] [place], [address] Hemoglobin (Bld) [Mass/Vol] 8.1 g/dL Low 13.0-16.5 [facility] Comment on above: Performed By: #### L 100.0600 ####[facility] [address] [place], [address] Ketones Test strip Ql (U)Ord ered By: Иван Aranda on 09-19-2024 Ketones Ql (U) Negative Negative [facility] L499.0042on 09-19-2024 Trop T High Sen Normal <=22 [facility] Comment on above: Result Comment: CANC LEENA EASON RN Performed By: #### L 499.0042 ####[facility] [address] [place], [address] Trop T High Sen 42 ng/L High <=22 [facility] Comment on above: Performed By: #### L 499.0042 ####[facility] [address] [place], [address] L499.0043on 09-19-2024 Trop T High Sen 51 ng/L High <=22 [facility] Comment on above: Performed By: #### L 499.0043 ####[facility] [address] [place], [address] L501.4021on 09-19-2024 Trop T High Sen 49 ng/L High <=22 [facility] Comment on above: Performed By: #### L 501.4021, L501.5200, L501.6710 ####[facility] [address] [place], [address] Lactic Acidon 09-19-2024 Lactate [Moles/Vol] 1.7 mmol/L Normal 0.0-2.0 [facility] Comment on above: Performed By: #### L 503.6005 ####[facility] [address] [place], [address] Lactate [Moles/Vol] 2.2 mmol/L Invalid Interpretation Code 0.0-2.0 [facility] Comment on above: Order Comment: Y Result Comment: Crit ical Result(s) Called GAMALIELWARTAHMINA at: 1640 by:LIZBETH??Results read back by same. Performed By: #### L 503.6005, L500.4050, L100.0100, L501.2450, L101.9900 ####[facility] [address] [place], [address] Lipaseon 09-19-2024 Lipase [Catalytic activity/Vol] 63 U/L Normal 13-75 [facility] Comment on above: Result Comment: Bettina kelly note:LIPASE revised reference range effective 22.New Lipase methodology. Expected to produce lower valuesthan the previous assay method.NEW Reference Range: 13 - 75 U/L Performed By: #### L 503.6005, L500.4050, L100.0100, L501.2450, L101.9900 ####[facility] [address] [place], [address] Magnesiumon 09-19-2024 Magnesium [Mass/Vol] 1.6 mg/dL Normal 1.5-2.2 [facility] Comment on above: Performed By: #### L 501.5200 ####[facility] [address] [place], [address] Magnesium [Mass/Vol] 1.5 mg/dL Normal 1.5-2.2 [facility] Comment on above: Performed By: #### L 501.4021, L501.5200, L501.6710 ####[facility] [address] [place], [address] Magnesium measurement (mass/ volume)Ordered By: Jose Zhang on 09-19-2024 Magnesium (Unsp spec) [Mass/Vol] 1.6 mg/dL 1.5-2.2 [facility] Mucus LM Ql (Urine sed)Order ed By: Иван Aranda on 09-19-2024 Mucus Ql (Urine sed) 0 SEEN /hpf [facility] Nitrite Test strip Ql (U)Ord ered By: Иван Aranda on 09-19-2024 Nitrite Ql (U) Negative Negative [facility] Protein Test strip Ql (U)Ord ered By: Иван Aranda on 09-19-2024 Protein Ql (U) 15 mg/dl High Negative [facility] Serum globulin measurementOr dered By: Иван Aranda on 09-19-2024 Globulin (S) [Mass/Vol] 3.5 g/dL 2.2-4.2 [facility] Serum or plasma C reactive p rotein measurement (mass/volume)Ordered By: Иван Aranda on 09-19-2024 CRP [Mass/Vol] 110.00 mg/L High 0.0-3.0 [facility] Serum or plasma albumin alfreda urement (mass/volume)Ordered By: Иван Rice on 09-19-2024 Albumin [Mass/Vol] 3.0 g/dL Low 3.4-4.8 [facility] Serum or plasma albumin/glob ulin mass ratioOrdered By: Иван Aranda on 09-19-2024 Albumin/Globulin [Mass ratio] 0.8 {ratio} Low 0.9-2.4 [facility] Serum or plasma alkaline debby sphatase measurementOrdered By: Иван Aranda on 09-19-2024 ALP [Catalytic activity/Vol] 112 U/L 40-129 [facility] Squamous epithelial cells de tection in urine sediment by light microscopyOrdered By: Иван Aranda on 09-19-2024 Epithelial cells.squamous LM Ql (Urine sed) 0-5 SEEN /hpf 0-5 [facility] Total proteinOrdered By: Kavon Aranda on 09-19-2024 Protein [Mass/Vol] 6.5 g/dL 5.9-8.4 [facility] Troponin T.cardiac [Mass/vol ume] in Serum or Plasma by High sensitivity methodOrdered By: Jose Zhang on 09-19-2024 Troponin T.cardiac High sensitivity method [Mass/Vol] 51 ng/L High <22 [facility] Troponin T.cardiac [Mass/vol ume] in Serum or Plasma by High sensitivity methodOrdered By: Иван Aarnda on 09-19-2024 Troponin T.cardiac High sensitivity method [Mass/Vol] 42 ng/L High <22 [facility] Troponin T.cardiac High sensitivity method [Mass/Vol] 49 ng/L High <22 [facility] Urinalysis, Completeon 09-19 EPI,SQUAMOUS 0-5 SEEN Normal 0-5 [facility] Comment on above: Order Comment: CLEAN CATCH Performed By: #### L 400.0001 ####[facility] [address] [place], [address] RBC 0-5 SEEN Normal 0-5 [facility] Comment on above: Order Comment: CLEAN CATCH Performed By: #### L 400.0001 ####[facility] [address] [place], [address] WBC 0-5 SEEN Normal 0-5 [facility] Comment on above: Order Comment: CLEAN CATCH Performed By: #### L 400.0001 ####[facility] [address] [place], [address] BACTERIA 0 SEEN Normal None Seen [facility] Comment on above: Order Comment: CLEAN CATCH Performed By: #### L 400.0001 ####[facility] [address] [place], [address] Mucus Ql (Urine sed) [address] [facility] Comment on above: Order Comment: CLEAN CATCH Performed By: #### L 400.0001 ####[facility] [address] [place], [address] Urine clarityOrdered By: Kavon Aranda on 09-19-2024 Clarity (U) Clear Clear [facility] Urine color determinationOrd ered By: Иван Aranda on 09-19-2024 Color (U) Straw Yellow [facility] Urine glucose detectionOrder ed By: Иван Aranda on 09-19-2024 Glucose Ql (U) 250 mg/dl High Normal [facility] Urine leukocyte esterase det ection by dipstickOrdered By: Иван Aranda on 09-19-2024 Leukocyte esterase Test strip Ql (U) Negative Negative [facility] Urine pHOrdered By: Иван Velazquez on 09-19-2024 pH (U) 7.0 [pH] 5.0 - 8.0 [facility] Urine sediment bacteria coun t by microscopy (number/high power field)Ordered By: Иван Aranda on 09-19-2024 Bacteria LM.HPF (Urine sed) [#/Area] 0 /[HPF] None Seen [facility] Urine specific gravity measu rementOrdered By: Иван Aranda on 09-19-2024 Specific gravity (U) [Rel density] 1.005 1.002-1.03 0 [facility] Urine urobilinogen measureme ntOrdered By: Иван Aranda on 09-19-2024 Urobilinogen Ql (U) Normal mg/dl Normal [facility] White blood cell countOrdere d By: Иван Aranda on 09-19-2024 White blood cell count 0-5 SEEN /hpf 0-5 [facility] Culture, Blood (WB)on 2024 CUB No growth in [address] [facility] Comment on above: Performed By: #### M 200.1000 ####[facility] [address] [place], [address] Culture, Blood (WB)on 2024 CUB No growth in [address] [facility] Comment on above: Performed By: #### M 200.1000 ####[facility] [address] [place], [address] Anion gap in Serum or Plasma Ordered By: Jose Zhang on 09-11-2024 Anion gap [Moles/Vol] 10 mmol/L 5-15 [facility] BUN/creatinine ratioOrdered By: Jose Zhang on 09-11-2024 Urea nitrogen/Creatinine [Mass ratio] 19.0 mg/mg 10- [facility] Basic Metabolic Profile (BMP )on 09-11-2024 BUN/CRE 19.0 RATIO Normal - [facility] Comment on above: Performed By: #### L 500.2500 ####[facility] [address] [place], [address] Calcium [Mass/Vol] 8.8 mg/dL Normal 7.6-11.0 [facility] Comment on above: Performed By: #### L 500.2500 ####[facility] [address] [place], [address] Chloride [Moles/Vol] 103 mmol/L Normal 98-108 [facility] Comment on above: Performed By: #### L 500.2500 ####[facility] [address] [place], [address] CO2 [Moles/Vol] 30.1 mmol/L Normal 21.0-32.0 [facility] Comment on above: Performed By: #### L 500.2500 ####[facility] [address] [place], [address] Creatinine [Mass/Vol] 0.78 mg/dL Normal 0.70-1.20 [facility] Comment on above: Performed By: #### L 500.2500 ####[facility] [address] [place], [address] ECRCL 88.38 ml/min Normal 50-250 [facility] Comment on above: Performed By: #### L 500.2500 ####[facility] [address] [place], [address] GAP 10 Normal 5-15 [facility] Comment on above: Performed By: #### L 500.2500 ####[facility] [address] [place], [address] GFR/1.73 sq M.predicted among non-blacks MDRD (S/P/Bld) [Vol rate/Area] 97 mL/min/{1.73_m2} Normal >60 [facility] Comment on above: Result Comment: mL/m in/1.73m2 CKD-EPI Creatinine Equation (2020) Performed By: #### L 500.2500 ####[facility] [address] [place], [address] Glucose [Mass/Vol] 118 mg/dL High 70-99 [facility] Comment on above: Performed By: #### L 500.2500 ####[facility] [address] [place], [address] Potassium [Moles/Vol] 3.9 mmol/L Normal 3.3-5.1 [facility] Comment on above: Performed By: #### L 500.2500 ####[facility] [address] [place], [address] Sodium [Moles/Vol] 143 mmol/L Normal 133-145 [facility] Comment on above: Performed By: #### L 500.2500 ####[facility] [address] [place], [address] Urea nitrogen [Mass/Vol] 15 mg/dL Normal 4-19 [facility] Comment on above: Performed By: #### L 500.2500 ####[facility] [address] [place], [address] Bedside Glucoseon 09-11-2024 FINGERSTICK GLU 289 mg/dL High 74-106 [facility] Comment on above: Result Comment: JEFRY GEMENT OF PATIENT CARE PER NURSING PROTOCOL Performed By: #### L 501.080 ####[facility] [address] [place], [address] FINGERSTICK GLU 149 mg/dL High 74-106 [facility] Comment on above: Result Comment: JEFRY GEMENT OF PATIENT CARE PER NURSING PROTOCOL Performed By: #### L 501.080 ####[facility] [address] [place], [address] Carbon dioxide, total [Moles /volume] in Central venous bloodOrdered By: Jose Zhang on 09-11-2024 CO2 [Moles/Vol] 30.1 mmol/L 21.0-32.0 [facility] Chloride assayOrdered By: Saad Zhang on 09-11-2024 Chloride [Moles/Vol] 103 mmol/L 98-108 [facility] Discharge Instructionon 08-15 Discharge Instruction Normal [facility] Glomerular filtration rate ( GFR) estimation/1.73 sq m using serum, plasma, or whole bOrdered By: Jose Zhang on 09-11-2024 GFR/1.73 sq M.predicted among non-blacks MDRD (S/P/Bld) [Vol rate/Area] 97 mL/min/{1.73_m2} >60 [facility]dered By: Jose Zhang on 09-11-2024 Glucose [Mass/Vol] 289 mg/dL High 74-106 [facility] Potassium measurement (mass/ volume)Ordered By: Jose Zhang on 09-11-2024 Potassium (Unsp spec) [Mass/Vol] 3.9 mmol/L 3.3-5.1 [facility] Serum creatinine measurement (mass/volume)Ordered By: Jose Zhang on 09-11-2024 Creatinine [Mass/Vol] 0.78 mg/dL 0.70-1.20 [facility] Serum glucose measurement (m ass/volume)Ordered By: Jose Zhang on 09-11-2024 Glucose [Mass/Vol] 118 mg/dL High 70-99 [facility] Serum or plasma calcium alfreda urement (mass/volume)Ordered By: Jose Zhang on 09-11-2024 Calcium [Mass/Vol] 8.8 mg/dL 7.6-11.0 [facility] Serum or plasma urea nitroge n measurement (mass/volume)Ordered By: Jose Zhang on 09-11-2024 Urea nitrogen [Mass/Vol] 15 mg/dL 4-19 [facility] Sodium levelOrdered By: Taco Zhang on 09-11-2024 Sodium [Moles/Vol] 143 mmol/L 133-145 [facility] Absolute lymphocyte countOrd ered By: Jose Zhang on 09-10-2024 Lymphocytes Auto (Unsp spec) [#/Vol] 1.15 10*3/uL 0.83-4.51 [facility] Automated lymphocyte count a s percentage of total leukocytesOrdered By: Jose Zhang on 09-10-2024 Lymphocytes/100 WBC Auto (Unsp spec) 6.6 % Low 19-41 [facility] Basic Metabolic Profile (BMP )on 09-10-2024 BUN/CRE 13.8 RATIO Normal 10-20 [facility] Comment on above: Performed By: #### L 100.0100, L500.2500 ####[facility] [address] [place], [address] Calcium [Mass/Vol] 8.7 mg/dL Normal 7.6-11.0 [facility] Comment on above: Performed By: #### L 100.0100, L500.2500 ####[facility] [address] [place], [address] Chloride [Moles/Vol] 100 mmol/L Normal 98-108 [facility] Comment on above: Performed By: #### L 100.0100, L500.2500 ####[facility] [address] [place], [address] CO2 [Moles/Vol] 31.1 mmol/L Normal 21.0-32.0 [facility] Comment on above: Performed By: #### L 100.0100, L500.2500 ####[facility] [address] [place], [address] Creatinine [Mass/Vol] 0.91 mg/dL Normal 0.70-1.20 [facility] Comment on above: Performed By: #### L 100.0100, L500.2500 ####[facility] [address] [place], [address] ECRCL 77.69 ml/min Normal 50-250 [facility] Comment on above: Performed By: #### L 100.0100, L500.2500 ####[facility] [address] [place], [address] GAP 12 Normal 5-15 [facility] Comment on above: Performed By: #### L 100.0100, L500.2500 ####[facility] [address] [place], [address] GFR/1.73 sq M.predicted among non-blacks MDRD (S/P/Bld) [Vol rate/Area] 92 mL/min/{1.73_m2} Normal >60 [facility] Comment on above: Result Comment: mL/m in/1.73m2 CKD-EPI Creatinine Equation (2020) Performed By: #### L 100.0100, L500.2500 ####[facility] [address] [place], [address] Glucose [Mass/Vol] 115 mg/dL High 70-99 [facility] Comment on above: Performed By: #### L 100.0100, L500.2500 ####[facility] [address] [place], [address] Potassium [Moles/Vol] 2.9 mmol/L Low 3.3-5.1 [facility] Comment on above: Performed By: #### L 100.0100, L500.2500 ####[facility] [address] [place], [address] Sodium [Moles/Vol] 143 mmol/L Normal 133-145 [facility] Comment on above: Performed By: #### L 100.0100, L500.2500 ####[facility] [address] [place], [address] Urea nitrogen [Mass/Vol] 13 mg/dL Normal 4-19 [facility] Comment on above: Performed By: #### L 100.0100, L500.2500 ####[facility] [address] [place], [address] Basophil percentageOrdered B y: Jose Zhang on 09-10-2024 Basophils/100 WBC (Bld) 0.1 % 0-1 [facility] Bedside Glucoseon 09-10-2024 FINGERSTICK GLU 160 mg/dL High 74-106 [facility] Comment on above: Result Comment: JEFRY TURNER OF PATIENT CARE PER NURSING PROTOCOL Performed By: #### L 501.080 ####[facility] [address] [place], [address] FINGERSTICK GLU 243 mg/dL High 74-106 [facility] Comment on above: Result Comment: JEFRY GEMENT OF PATIENT CARE PER NURSING PROTOCOL Performed By: #### L 501.080 ####[facility] [address] [place], [address] FINGERSTICK GLU 142 mg/dL High 74-106 [facility] Comment on above: Result Comment: JEFRY GEMENT OF PATIENT CARE PER NURSING PROTOCOL Performed By: #### L 501.080 ####[facility] [address] [place], [address] FINGERSTICK GLU 124 mg/dL High 74-106 [facility] Comment on above: Result Comment: JEFRY GEMENT OF PATIENT CARE PER NURSING PROTOCOL Performed By: #### L 501.080 ####[facility] [address] [place], [address] CBC W/Diff, Automatedon 06-2 Absolute Lymph 1.15 X10 3/uL Normal 0.83-4.51 [facility] Comment on above: Performed By: #### L 100.0100, L500.2500 ####[facility] [address] [place], [address] Absolute Neut 15.6 X10 3/uL High 2.0-7.7 [facility] Comment on above: Performed By: #### L 100.0100, L500.2500 ####[facility] [address] [place], [address] Basophils/100 WBC (Bld) 0.1 % Normal 0-1 [facility] Comment on above: Performed By: #### L 100.0100, L500.2500 ####[facility] [address] [place], [address] Eosinophils/100 WBC (Bld) 0.0 % Normal 0-5 [facility] Comment on above: Performed By: #### L 100.0100, L500.2500 ####[facility] [address] [place], [address] Erythrocyte distribution width (RBC) [Ratio] 17.2 % High 11.6-14.6 [facility] Comment on above: Performed By: #### L 100.0100, L500.2500 ####[facility] [address] [place], [address] Hematocrit (Bld) [Volume fraction] 30.7 % Low 40-54 [facility] Comment on above: Performed By: #### L 100.0100, L500.2500 ####[facility] [address] [place], [address] Hemoglobin (Bld) [Mass/Vol] 9.4 g/dL Low 13.0-16.5 [facility] Comment on above: Performed By: #### L 100.0100, L500.2500 ####[facility] [address] [place], [address] IG% 1.400 High 0.0-0.9 [facility] Comment on above: Result Comment: IG% - Immature Granulocytes (promyelocytes, myelocytes andmetamyelocytes) > 1% indicates that a LEFT SHIFT is Present. Performed By: #### L 100.0100, L500.2500 ####[facility] [address] [place], [address] Lymphocytes/100 WBC (Bld) 6.6 % Low 19-41 [facility] Comment on above: Performed By: #### L 100.0100, L500.2500 ####[facility] [address] [place], [address] MCH (RBC) [Entitic mass] 27.6 pg Normal 27.0-32.0 [facility] Comment on above: Performed By: #### L 100.0100, L500.2500 ####[facility] [address] [place], [address] MCHC (RBC) [Mass/Vol] 30.6 g/dL Low 32-36 [facility] Comment on above: Performed By: #### L 100.0100, L500.2500 ####[facility] [address] [place], [address] MCV (RBC) [Entitic vol] 90.0 fL Normal 80-94 [facility] Comment on above: Performed By: #### L 100.0100, L500.2500 ####[facility] [address] [place], [address] Monocytes/100 WBC (Bld) 2.8 % Normal 0-10 [facility] Comment on above: Performed By: #### L 100.0100, L500.2500 ####[facility] [address] [place], [address] Neutrophils/100 WBC (Bld) 89.1 % High 47-70 [facility] Comment on above: Performed By: #### L 100.0100, L500.2500 ####[facility] [address] [place], [address] Nucleated RBC (Bld) [#/Vol] 0 10*3/uL Normal 0-5 [facility] Comment on above: Performed By: #### L 100.0100, L500.2500 ####[facility] [address] [place], [address] Platelet mean volume (Bld) [Entitic vol] 9.3 fL Normal 6.2-12.0 [facility] Comment on above: Performed By: #### L 100.0100, L500.2500 ####[facility] [address] [place], [address] Platelets (Bld) [#/Vol] 269 10*3/uL Normal 150-450 [facility] Comment on above: Performed By: #### L 100.0100, L500.2500 ####[facility] [address] [place], [address] RBC (Bld) [#/Vol] 3.41 10*6/uL Low 4.6-6.2 [facility] Comment on above: Performed By: #### L 100.0100, L500.2500 ####[facility] [address] [place], [address] RDW SD 55.9 fl High 35.1-43.9 [facility] Comment on above: Performed By: #### L 100.0100, L500.2500 ####[facility] [address] [place], [address] WBC (Bld) [#/Vol] 17.5 10*3/uL High 4.4-11.0 [facility] Comment on above: Performed By: #### L 100.0100, L500.2500 ####[facility] [address] [place], [address] Eosinophil percentageOrdered By: Jose Zhang on 09-10-2024 Eosinophils/100 WBC (Bld) 0.0 % 0-5 [facility] Erythrocyte distribution wid th ratioOrdered By: Jose Zhang on 09-10-2024 Erythrocyte distribution width (RBC) [Ratio] 17.2 % High 11.6-14.6 [facility] Erythrocyte distribution wid th standard deviationOrdered By: Jose Zahng on 09-10-2024 Erythrocyte distribution width (RBC) [Ratio] 55.9 fl High 35.1-43.9 [facility] Hematocrit Auto (Bld) [Volum e fraction]Ordered By: Jose Zhang on 09-10-2024 Hematocrit (Bld) [Volume fraction] 30.7 % Low 40-54 [facility] Hemoglobin measurementOrdere d By: Jose Zhang on 09-10-2024 Hemoglobin (Bld) [Mass/Vol] 9.4 g/dL Low 13.0-16.5 [facility] Immature granulocytes/100 WB C Auto (Bld)Ordered By: Jose Zhang on 09-10-2024 Immature granulocytes/100 WBC (Bld) 1.400 % High 0.0-0.9 [facility] MCV (mean corpuscular volume ) determinationOrdered By: Jose Zhang on 09-10-2024 MCV (RBC) [Entitic vol] 90.0 fL 80-94 [facility] Mean corpuscular hemoglobin (MCH) determinationOrdered By: Jose Zhang on 09-10-2024 MCH (RBC) [Entitic mass] 27.6 pg 27.0-32.0 [facility] Monocyte percentageOrdered B y: Jose Zhang on 09-10-2024 Monocytes/100 WBC (Bld) 2.8 % 0-10 [facility] Neutrophil percentageOrdered By: Jose Zhang on 09-10-2024 Neutrophils/100 WBC (Bld) 89.1 % High 47-70 [facility] Platelet countOrdered By: Saad Zhang on 09-10-2024 Platelets (Bld) [#/Vol] 269 10*3/uL 150-450 [facility] RBC Auto (Bld) [#/Vol]Ordere d By: Jose Zhang on 09-10-2024 RBC (Bld) [#/Vol] 3.41 10*6/uL Low 4.6-6.2 [facility] White blood cell (WBC) count Ordered By: Jose Zhang on 09-10-2024 WBC (Bld) [#/Vol] 17.5 10*3/uL High 4.4-11.0 [facility] Basic Metabolic Profile (BMP )on 09-09-2024 BUN/CRE 13.8 RATIO Normal 10-20 [facility] Comment on above: Performed By: #### L 500.2500 ####[facility] [address] [place], [address] Calcium [Mass/Vol] 8.3 mg/dL Normal 7.6-11.0 [facility] Comment on above: Performed By: #### L 500.2500 ####[facility] [address] [place], [address] Chloride [Moles/Vol] 95 mmol/L Low 98-108 [facility] Comment on above: Performed By: #### L 500.2500 ####[facility] [address] [place], [address] CO2 [Moles/Vol] 29.5 mmol/L Normal 21.0-32.0 [facility] Comment on above: Performed By: #### L 500.2500 ####[facility] [address] [place], [address] Creatinine [Mass/Vol] 0.93 mg/dL Normal 0.70-1.20 [facility] Comment on above: Performed By: #### L 500.2500 ####[facility] [address] [place], [address] ECRCL 76.02 ml/min Normal 50-250 [facility] Comment on above: Performed By: #### L 500.2500 ####[facility] [address] [place], [address] GAP 14 Normal 5-15 [facility] Comment on above: Performed By: #### L 500.2500 ####[facility] [address] [place], [address] GFR/1.73 sq M.predicted among non-blacks MDRD (S/P/Bld) [Vol rate/Area] 90 mL/min/{1.73_m2} Normal >60 [facility] Comment on above: Result Comment: mL/m in/1.73m2 CKD-EPI Creatinine Equation (2020) Performed By: #### L 500.2500 ####[facility] [address] [place], [address] Glucose [Mass/Vol] 303 mg/dL High 70-99 [facility] Comment on above: Performed By: #### L 500.2500 ####[facility] [address] [place], [address] Potassium [Moles/Vol] 2.5 mmol/L Invalid Interpretation Code 3.3-5.1 [facility] Comment on above: Result Comment: Crit ical Result(s) Called at 1133: by: SONJA DHALIWAL. ??Results read back by same. Performed By: #### L 500.2500 ####[facility] [address] [place], [address] Sodium [Moles/Vol] 139 mmol/L Normal 133-145 [facility] Comment on above: Performed By: #### L 500.2500 ####[facility] [address] [place], [address] Urea nitrogen [Mass/Vol] 13 mg/dL Normal 4-19 [facility] Comment on above: Performed By: #### L 500.2500 ####[facility] [address] [place], [address] Bedside Glucoseon 09-09-2024 FINGERSTICK GLU 134 mg/dL High 74-106 [facility] Comment on above: Result Comment: JEFRY GEMENT OF PATIENT CARE PER NURSING PROTOCOL Performed By: #### L 501.080 ####[facility] [address] [place], [address] FINGERSTICK GLU 207 mg/dL High 74-106 [facility] Comment on above: Result Comment: JEFRY GEMENT OF PATIENT CARE PER NURSING PROTOCOL Performed By: #### L 501.080 ####[facility] [address] [place], [address] FINGERSTICK GLU 235 mg/dL High 74-106 [facility] Comment on above: Result Comment: JEFRY GEMENT OF PATIENT CARE PER NURSING PROTOCOL Performed By: #### L 501.080 ####[facility] [address] [place], [address] FINGERSTICK GLU 109 mg/dL High 74-106 [facility] Comment on above: Result Comment: JEFRY GEMENT OF PATIENT CARE PER NURSING PROTOCOL Performed By: #### L 501.080 ####[facility] [address] [place], [address] Magnesiumon 09-09-2024 Magnesium [Mass/Vol] 1.8 mg/dL Normal 1.5-2.2 [facility] Comment on above: Performed By: #### L 501.5200, L501.2300 ####[facility] [address] [place], [address] Magnesium measurement (mass/ volume)Ordered By: Jose Zhang on 09-09-2024 Magnesium (Unsp spec) [Mass/Vol] 1.8 mg/dL 1.5-2.2 [facility] Phosphoruson 09-09-2024 Phosphate [Mass/Vol] 2.9 mg/dL Normal 2.7-4.5 [facility] Comment on above: Performed By: #### L 501.5200, L501.2300 ####[facility] [address] [place], [address] Bedside Glucoseon 09-08-2024 FINGERSTICK GLU 116 mg/dL High [facility] Comment on above: Result Comment: JEFRY GEMENT OF PATIENT CARE PER NURSING PROTOCOL Performed By: #### L 501.080 ####[facility] [address] [place], [address] FINGERSTICK GLU 209 mg/dL High [address] [place] [address] Comment on above: Result Comment: JEFRY GEMENT OF PATIENT CARE PER NURSING PROTOCOL Performed By: #### L 501.080 ####[facility] [address] [place], [address] FINGERSTICK GLU 215 mg/dL High [facility] Comment on above: Result Comment: JEFRY GEMENT OF PATIENT CARE PER NURSING PROTOCOL Performed By: #### L 501.080 ####[facility] [address] [place], [address] FINGERSTICK GLU 146 mg/dL High 74-106 [facility] Comment on above: Result Comment: JEFRY TURNER OF PATIENT CARE PER NURSING PROTOCOL Performed By: #### L 501.080 ####[facility] [address] [place], [address] Blood cultureOrdered By: Jeramy Bazzi on 09-08-2024 Bacteria identified Cx Nom (Bld) No growth in 5 days. [facility] Culture, Blood (WB)on 2024 CUB Normal [facility] Comment on above: Performed By: #### M 200.1000 ####[facility] [address] [place], [address] [facility] Normal [facility] Comment on above: Performed By: #### M 200.1000 ####[facility] [address] [place], [address] Activated partial thrombopla stin time (aPTT) in platelet poor plasma by coagulation aOrdered By: Jameel Lakhani on 09-07-2024 aPTT Coag (PPP) [Time] 32.0 s 24.1-36.2 [facility] Basic Metabolic Profile (BMP )on 09-07-2024 BUN/CRE 12.7 RATIO Normal 10-20 [facility] Comment on above: Performed By: #### L 501.2300, L501.5200, L500.2500, L100.0500 ####[facility] [address] [place], [address] Calcium [Mass/Vol] 7.4 mg/dL Low 7.6-11.0 [facility] Comment on above: Performed By: #### L 501.2300, L501.5200, L500.2500, L100.0500 ####[facility] [address] [place], [address] Chloride [Moles/Vol] 99 mmol/L Normal 98-108 [facility] Comment on above: Performed By: #### L 501.2300, L501.5200, L500.2500, L100.0500 ####[facility] [address] [place], [address] CO2 [Moles/Vol] 27.8 mmol/L Normal 21.0-32.0 [facility] Comment on above: Performed By: #### L 501.2300, L501.5200, L500.2500, L100.0500 ####[facility] [address] [place], [address] Creatinine [Mass/Vol] 0.74 mg/dL Normal 0.70-1.20 [facility] Comment on above: Performed By: #### L 501.2300, L501.5200, L500.2500, L100.0500 ####[facility] [address] [place], [address] ECRCL 88.38 ml/min Normal 50-250 [facility] Comment on above: Performed By: #### L 501.2300, L501.5200, L500.2500, L100.0500 ####[facility] [address] [place], [address] GAP 13 Normal 5-15 [facility] Comment on above: Performed By: #### L 501.2300, L501.5200, L500.2500, L100.0500 ####[facility] [address] [place], [address] GFR/1.73 sq M.predicted among non-blacks MDRD (S/P/Bld) [Vol rate/Area] 99 mL/min/{1.73_m2} Normal >60 [facility] Comment on above: Result Comment: mL/m in/1.73m2 CKD-EPI Creatinine Equation (2020) Performed By: #### L 501.2300, L501.5200, L500.2500, L100.0500 ####[facility] [address] [place], [address] Glucose [Mass/Vol] 213 mg/dL High 70-99 [facility] Comment on above: Performed By: #### L 501.2300, L501.5200, L500.2500, L100.0500 ####[facility] [address] [place], [address] Potassium [Moles/Vol] 3.0 mmol/L Low 3.3-5.1 [facility] Comment on above: Performed By: #### L 501.2300, L501.5200, L500.2500, L100.0500 ####[facility] [address] [place], [address] Sodium [Moles/Vol] 140 mmol/L Normal 133-145 [facility] Comment on above: Performed By: #### L 501.2300, L501.5200, L500.2500, L100.0500 ####[facility] [address] [place], [address] Urea nitrogen [Mass/Vol] 9 mg/dL Normal 4-19 [facility] Comment on above: Performed By: #### L 501.2300, L501.5200, L500.2500, L100.0500 ####[facility] [address] [place], [address] Bedside Glucoseon 09-07-2024 FINGERSTICK GLU 278 mg/dL High 74-106 [facility] Comment on above: Result Comment: JEFRY GEMENT OF PATIENT CARE PER NURSING PROTOCOL Performed By: #### L 501.080 ####[facility] [address] [place], [address] FINGERSTICK GLU 234 mg/dL High 74-106 [facility] Comment on above: Result Comment: JEFRY GEMENT OF PATIENT CARE PER NURSING PROTOCOL Performed By: #### L 501.080 ####[facility] [address] [place], [address] Blood cultureOrdered By: Jeramy Bazzi on 09-07-2024 Bacteria identified Cx Nom (Bld) No growth in 5 days. [facility] CBC-Complete Blood Cnt No Di ffon 09-07-2024 Erythrocyte distribution width (RBC) [Ratio] 17.2 % High 11.6-14.6 [facility] Comment on above: Performed By: #### L 501.2300, L501.5200, L500.2500, L100.0500 ####[facility] [address] [place], [address] Hematocrit (Bld) [Volume fraction] 27.3 % Low 40-54 [facility] Comment on above: Performed By: #### L 501.2300, L501.5200, L500.2500, L100.0500 ####[facility] [address] [place], [address] Hemoglobin (Bld) [Mass/Vol] 8.6 g/dL Low 13.0-16.5 [facility] Comment on above: Performed By: #### L 501.2300, L501.5200, L500.2500, L100.0500 ####[facility] [address] [place], [address] MCH (RBC) [Entitic mass] 27.6 pg Normal 27.0-32.0 [facility] Comment on above: Performed By: #### L 501.2300, L501.5200, L500.2500, L100.0500 ####[facility] [address] [place], [address] MCHC (RBC) [Mass/Vol] 31.5 g/dL Low 32-36 [facility] Comment on above: Performed By: #### L 501.2300, L501.5200, L500.2500, L100.0500 ####[facility] [address] [place], [address] MCV (RBC) [Entitic vol] 87.5 fL Normal 80-94 [facility] Comment on above: Performed By: #### L 501.2300, L501.5200, L500.2500, L100.0500 ####[facility] [address] [place], [address] Platelet mean volume (Bld) [Entitic vol] 9.5 fL Normal 6.2-12.0 [facility] Comment on above: Performed By: #### L 501.2300, L501.5200, L500.2500, L100.0500 ####[facility] [address] [place], [address] Platelets (Bld) [#/Vol] 179 10*3/uL Normal 150-450 [facility] Comment on above: Performed By: #### L 501.2300, L501.5200, L500.2500, L100.0500 ####[facility] [address] [place], [address] RBC (Bld) [#/Vol] 3.12 10*6/uL Low 4.6-6.2 [facility] Comment on above: Performed By: #### L 501.2300, L501.5200, L500.2500, L100.0500 ####[facility] [address] [place], [address] RDW SD 55.2 fl High 35.1-43.9 [facility] Comment on above: Performed By: #### L 501.2300, L501.5200, L500.2500, L100.0500 ####[facility] [address] [place], [address] WBC (Bld) [#/Vol] 9.7 10*3/uL Normal 4.4-11.0 [facility] Comment on above: Performed By: #### L 501.2300, L501.5200, L500.2500, L100.0500 ####[facility] [address] [place], [address] Colonoscopy Reporton 025 Colonoscopy Report Normal [facility] Consultation - Infectious Dx on 09-07-2024 Consultation - Infectious Dx Normal [facility] Echocardiogram study reportO rdered By: Brittany Izquierdo on 09-07-2024 Study report [facility] Work Phone: MR/POSTOP.ANEon 09-07-2024 MR/POSTOP.ANE Normal [facility] MR/[id number] 09-07-2024 MR/POSTOPAN2 Normal [facility] Magnesiumon 09-07-2024 Magnesium [Mass/Vol] 2.2 mg/dL Normal 1.5-2.2 [facility] Comment on above: Performed By: #### L 501.2300, L501.5200, L500.2500, L100.0500 ####[facility] [address] [place], [address] Partial Thromboplast Timeon 09-07-2024 aPTT Coag (Bld) [Time] 32.0 s Normal 24.1-36.2 [facility] Comment on above: Performed By: #### L 300.3900, L300.4310 ####[facility] [address] [place], [address] Phosphoruson 09-07-2024 Phosphate [Mass/Vol] 1.6 mg/dL Low 2.7-4.5 [facility] Comment on above: Performed By: #### L 501.2300, L501.5200, L500.2500, L100.0500 ####[facility] [address] [place], [address] Prothrombin Time w/INRon INR Coag (PPP) [Relative time] 1.4 {INR} Normal [facility] Comment on above: Performed By: #### L 300.3900, L300.4310 ####[facility] [address] [place], [address] PT Coag (PPP) [Time] 17.3 s High 11.7-14.9 [facility] Comment on above: Performed By: #### L 300.3900, L300.4310 ####[facility] [address] [place], [address] Prothrombin timeOrdered By: Jameel Lakhani on 09-07-2024 PT Coag (PPP) [Time] 17.3 s High 11.7-14.9 [facility] Surgery Specimen Level Jerrell 09-07-2024 Surgery Specimen Level IV Normal [facility] Comment on above: Performed By: #### P SUIV ####[facility] [address] [place], [address] 12 Lead EKGon 09-06-2024 12 Lead EKG Normal [facility] Basic Metabolic Profile (BMP )on 09-06-2024 BUN/CRE 10.9 RATIO Normal 10-20 [facility] Comment on above: Performed By: #### L 100.0500, L500.2500 ####[facility] [address] [place], [address] Calcium [Mass/Vol] 7.7 mg/dL Normal 7.6-11.0 [facility] Comment on above: Performed By: #### L 100.0500, L500.2500 ####[facility] [address] [place], [address] Chloride [Moles/Vol] 98 mmol/L Normal 98-108 [facility] Comment on above: Performed By: #### L 100.0500, L500.2500 ####[facility] [address] [place], [address] CO2 [Moles/Vol] 26.5 mmol/L Normal 21.0-32.0 [facility] Comment on above: Performed By: #### L 100.0500, L500.2500 ####[facility] [address] [place], [address] Creatinine [Mass/Vol] 0.69 mg/dL Low 0.70-1.20 [facility] Comment on above: Performed By: #### L 100.0500, L500.2500 ####[facility] [address] [place], [address] ECRCL 88.38 ml/min Normal 50-250 [facility] Comment on above: Performed By: #### L 100.0500, L500.2500 ####[facility] [address] [place], [address] GAP 12 Normal 5-15 [facility] Comment on above: Performed By: #### L 100.0500, L500.2500 ####[facility] [address] [place], [address] GFR/1.73 sq M.predicted among non-blacks MDRD (S/P/Bld) [Vol rate/Area] 101 mL/min/{1.73_m2} Normal >60 [facility] Comment on above: Result Comment: mL/m in/1.73m2 CKD-EPI Creatinine Equation (2020) Performed By: #### L 100.0500, L500.2500 ####[facility] [address] [place], [address] Glucose [Mass/Vol] 248 mg/dL High 70-99 [facility] Comment on above: Performed By: #### L 100.0500, L500.2500 ####[facility] [address] [place], [address] Potassium [Moles/Vol] 3.6 mmol/L Normal 3.3-5.1 [facility] Comment on above: Performed By: #### L 100.0500, L500.2500 ####[facility] [address] [place], [address] Sodium [Moles/Vol] 137 mmol/L Normal 133-145 [facility] Comment on above: Performed By: #### L 100.0500, L500.2500 ####[facility] [address] [place], [address] Urea nitrogen [Mass/Vol] 8 mg/dL Normal 4-19 [facility] Comment on above: Performed By: #### L 100.0500, L500.2500 ####[facility] [address] [place], [address] Bedside Glucoseon 09-06-2024 FINGERSTICK GLU 231 mg/dL High 74-106 [facility] Comment on above: Result Comment: JEFRY GEMENT OF PATIENT CARE PER NURSING PROTOCOL Performed By: #### L 501.080 ####[facility] [address] [place], [address] FINGERSTICK GLU 275 mg/dL High 74-106 [facility] Comment on above: Result Comment: JEFRY GEMENT OF PATIENT CARE PER NURSING PROTOCOL Performed By: #### L 501.080 ####[facility] [address] [place], [address] FINGERSTICK GLU 255 mg/dL High 74-106 [facility] Comment on above: Result Comment: JEFRY GEMENT OF PATIENT CARE PER NURSING PROTOCOL Performed By: #### L 501.080 ####[facility] [address] [place], [address] FINGERSTICK GLU 219 mg/dL High 74-106 [facility] Comment on above: Result Comment: JEFRY GEMENT OF PATIENT CARE PER NURSING PROTOCOL Performed By: #### L 501.080 ####[facility] [address] [place], [address] CBC-Complete Blood Cnt No Di ffon 09-06-2024 Erythrocyte distribution width (RBC) [Ratio] 17.2 % High 11.6-14.6 [facility] Comment on above: Performed By: #### L 100.0500, L500.2500 ####[facility] [address] [place], [address] Hematocrit (Bld) [Volume fraction] 24.8 % Low 40-54 [facility] Comment on above: Performed By: #### L 100.0500, L500.2500 ####[facility] [address] [place], [address] Hemoglobin (Bld) [Mass/Vol] 7.8 g/dL Low 13.0-16.5 [facility] Comment on above: Performed By: #### L 100.0500, L500.2500 ####[facility] [address] [place], [address] MCH (RBC) [Entitic mass] 27.7 pg Normal 27.0-32.0 [facility] Comment on above: Performed By: #### L 100.0500, L500.2500 ####[facility] [address] [place], [address] MCHC (RBC) [Mass/Vol] 31.5 g/dL Low 32-36 [facility] Comment on above: Performed By: #### L 100.0500, L500.2500 ####[facility] [address] [place], [address] MCV (RBC) [Entitic vol] 87.9 fL Normal 80-94 [facility] Comment on above: Performed By: #### L 100.0500, L500.2500 ####[facility] [address] [place], [address] Platelet mean volume (Bld) [Entitic vol] 9.8 fL Normal 6.2-12.0 [facility] Comment on above: Performed By: #### L 100.0500, L500.2500 ####[facility] [address] [place], [address] Platelets (Bld) [#/Vol] 179 10*3/uL Normal 150-450 [facility] Comment on above: Performed By: #### L 100.0500, L500.2500 ####[facility] [address] [place], [address] RBC (Bld) [#/Vol] 2.82 10*6/uL Low 4.6-6.2 [facility] Comment on above: Performed By: #### L 100.0500, L500.2500 ####[facility] [address] [place], [address] RDW [place] 55.7 fl High 35.1-43.9 [facility] Comment on above: Performed By: #### L 100.0500, L500.2500 ####[facility] [address] [place], [address] WBC (Bld) [#/Vol] 8.3 10*3/uL Normal 4.4-11.0 [facility] Comment on above: Performed By: #### L 100.0500, L500.2500 ####[facility] [address] [place], [address] EGD Reporton 09-06-2024 EGD Report Normal [facility] Echo Completeon 09-06-2024 Echo Complete Normal [facility] Electrocardiogram reportOrde red By: Peter Mohan on 09-06-2024 EKG study [facility] Work Phone: Folates, RBCon 09-06-2024 Fol.,Hemolysate 415.0 ng/mL Normal Not Estab. [facility] Comment on above: Performed By: #### L 503.6550, L503.0106, L100.9950, L500.2500, L3100.1725 ####[facility] [address] [place], [address] Folate, RBC 1836 ng/mL Normal >498 [facility] Comment on above: Result Comment: Perf ormed at: [facility] [address] [place], [place] [id number] Director: Maico Ascencio PhD, Phone: [phone] Performed By: #### L 503.6550, L503.0106, L100.9950, L500.2500, L3100.1725 ####[facility] [address] [place], [address] Hematocrit (Bld) [Volume fraction] 22.6 % Low 37.5-51.0 [facility] Comment on above: Performed By: #### L 503.6550, L503.0106, L100.9950, L500.2500, L3100.1725 ####[facility] [address] [place], [address] MR/POSTOP.ANEon 09-06-2024 MR/POSTOP.ANE Normal [facility] MR/PYHSHRND2jq 09-06-2024 MR/POSTOPAN2 Normal [facility] Partial Thromboplast Timeon 09-06-2024 aPTT Coag (Bld) [Time] 39.0 s High 24.1-36.2 [facility] Comment on above: Performed By: #### L 300.3900, L300.4310 ####[facility] [address] [place], [address] Prothrombin Time w/INRon INR Coag (PPP) [Relative time] 1.4 {INR} Normal [facility] Comment on above: Performed By: #### L 300.3900, L300.4310 ####[facility] [address] [place], [address] PT Coag (PPP) [Time] 17.5 s High 11.7-14.9 [facility] Comment on above: Performed By: #### L 300.3060, L300.4310 ####[facility] [address] [place], [place], [id number] Stool Occult Blood iFOBon STOB Positive Normal [facility] Comment on above: Performed By: #### M 100.7900 ####[facility] [address] [place], [place], [address] Stool gastrointestinal hemog lobin detection by immunologic methodOrdered By: Addy Nelson on 09-06-2024 Lower GI hemoglobin IA Ql (Stl) Positive Abnormal [facility] Trough vancomycin levelOrder ed By: Serina Juan on 09-06-2024 Vancomycin trough [Mass/Vol] 8.6 ug/mL 5.0-15.0 [facility] Vancomycin, Trough Levelon 0 09-06-2024 VANCO, TROUGH 8.6 ug/mL Normal 5.0-15.0 [facility] Comment on above: Order Comment: Comme [...] therapy recommended for serious lifethreatening infections include:- Ngcbwvemba-Meunzynujluk-Qhpvvlvdy (Ventilator/Healtcare Associated)-SepsisPLEASE CONTACT PHARMACY SERVICES (#[id number]) FOR INTERPRETATIONOF RESULTS. Performed By: #### L 869.5193 ####[facility] [address] [place], [place], [address] BRCon 09-05-2024 RC Normal [facility] Comment on above: Result Comment: [id number] AN RC TRANSFUSED 09/05/24 0939 Performed By: #### B TS, BR ####[facility] [address] [place], [address] Basic Metabolic Profile (BMP )on 09-05-2024 BUN/CRE 6.4 RATIO Low 10-20 [facility] Comment on above: Performed By: #### L 503.6030, L500.2500, L100.0100 ####[facility] [address] [place], [address] Calcium [Mass/Vol] 7.9 mg/dL Normal 7.6-11.0 [facility] Comment on above: Performed By: #### L 503.6030, L500.2500, L100.0100 ####[facility] [address] [place], [address] Chloride [Moles/Vol] 94 mmol/L Low 98-108 [facility] Comment on above: Performed By: #### L 503.6030, L500.2500, L100.0100 ####[facility] [address] [place], [address] CO2 [Moles/Vol] 28.0 mmol/L Normal 21.0-32.0 [facility] Comment on above: Performed By: #### L 503.6030, L500.2500, L100.0100 ####[facility] [address] [place], [address] Creatinine [Mass/Vol] 0.69 mg/dL Low 0.70-1.20 [facility] Comment on above: Performed By: #### L 503.6030, L500.2500, L100.0100 ####[facility] [address] [place], [address] ECRCL 66.00 ml/min Normal 50-250 [facility] Comment on above: Performed By: #### L 503.6030, L500.2500, L100.0100 ####[facility] [address] [place], [address] GAP 9 Normal 5-15 [facility] Comment on above: Performed By: #### L 503.6030, L500.2500, L100.0100 ####[facility] [address] [place], [address] GFR/1.73 sq M.predicted among non-blacks MDRD (S/P/Bld) [Vol rate/Area] 101 mL/min/{1.73_m2} Normal >60 [facility] Comment on above: Result Comment: mL/m in/1.73m2 CKD-EPI Creatinine Equation (2020) Performed By: #### L 503.6030, L500.2500, L100.0100 ####[facility] [address] [place], [address] Glucose [Mass/Vol] 222 mg/dL High 70-99 [facility] Comment on above: Performed By: #### L 503.6030, L500.2500, L100.0100 ####[facility] [address] [place], [address] Potassium [Moles/Vol] 3.0 mmol/L Low 3.3-5.1 [facility] Comment on above: Performed By: #### L 503.6030, L500.2500, L100.0100 ####[facility] [address] [place], [address] Sodium [Moles/Vol] 131 mmol/L Low 133-145 [facility] Comment on above: Performed By: #### L 503.6030, L500.2500, L100.0100 ####[facility] [address] [place], [address] Urea nitrogen [Mass/Vol] 4 mg/dL Normal 4-19 [facility] Comment on above: Performed By: #### L 503.6030, L500.2500, L100.0100 ####[facility] [address] [place], [address] BUN Normal 4-19 [facility] Comment on above: Result Comment: DUPL ICATE DRAWN AT 0614 Performed By: #### L 500.2500 ####[facility] [address] [place], [address] BUN/CRE Normal 10-20 [facility] Comment on above: Result Comment: DUPL ICATE DRAWN AT 0614 Performed By: #### L 500.2500 ####[facility] [address] [place], [address] Calcium Normal 7.6-11.0 [facility] Comment on above: Result Comment: DUPL ICATE DRAWN AT 0614 Performed By: #### L 500.2500 ####[facility] [address] [place], [address] CL Normal 98-108 [facility] Comment on above: Result Comment: DUPL ICATE DRAWN AT 0614 Performed By: #### L 500.2500 ####[facility] [address] [place], [address] CO2 Normal 21.0-32.0 [facility] Comment on above: Result Comment: DUPL ICATE DRAWN AT 0614 Performed By: #### L 500.2500 ####[facility] [address] [place], [address] CREAT,SERUM Normal 0.70-1.20 [facility] Comment on above: Result Comment: DUPL ICATE DRAWN AT 0614 Performed By: #### L 500.2500 ####[facility] [address] [place], [address] eGFR Normal >60 [facility] Comment on above: Result Comment: DUPL ICATE DRAWN AT 0614 Performed By: #### L 500.2500 ####[facility] [address] [place], [address] GAP Normal 5-15 [facility] Comment on above: Result Comment: DUPL ICATE DRAWN AT 0614 Performed By: #### L 500.2500 ####[facility] [address] [place], [address] GLU Normal 70-99 [facility] Comment on above: Result Comment: DUPL ICATE DRAWN AT 0614 Performed By: #### L 500.2500 ####[facility] [address] [place], [address] Potassium Normal 3.3-5.1 [facility] Comment on above: Result Comment: DUPL ICATE DRAWN AT 0614 Performed By: #### L 500.2500 ####[facility] [address] [place], [address] Basic Metabolic Profile (BMP) Normal 133-145 [facility] Comment on above: Result Comment: DUPL ICATE DRAWN AT 0614 Performed By: #### L 500.2500 ####[facility] [address] [place], [address] Bedside Glucoseon 09-05-2024 FINGERSTICK GLU 287 mg/dL High 74-106 [facility] Comment on above: Result Comment: JEFRY GEMENT OF PATIENT CARE PER NURSING PROTOCOL Performed By: #### L 501.080 ####[facility] [address] [place], [address] FINGERSTICK GLU 256 mg/dL High 74-106 [facility] Comment on above: Result Comment: JEFRY GEMENT OF PATIENT CARE PER NURSING PROTOCOL Performed By: #### L 501.080 ####[facility] [address] [place], [address] FINGERSTICK GLU 181 mg/dL High 74-106 [facility] Comment on above: Result Comment: JEFRY GEMENT OF PATIENT CARE PER NURSING PROTOCOL Performed By: #### L 501.080 ####[facility] [address] [place], [address] CBC W/Diff, Automatedon 06-2 -2024 Absolute Lymph 0.28 X10 3/uL Low 0.83-4.51 [facility] Comment on above: Performed By: #### L 503.6030, L500.2500, L100.0100 ####[facility] [address] [place], [address] Absolute Neut 7.1 X10 3/uL Normal 2.0-7.7 [facility] Comment on above: Performed By: #### L 503.6030, L500.2500, L100.0100 ####[facility] [address] [place], [address] Basophils/100 WBC (Bld) 0.2 % Normal 0-1 [facility] Comment on above: Performed By: #### L 503.6030, L500.2500, L100.0100 ####[facility] [address] [place], [address] Eosinophils/100 WBC (Bld) 0.0 % Normal 0-5 [facility] Comment on above: Performed By: #### L 503.6030, L500.2500, L100.0100 ####[facility] [address] [place], [address] Erythrocyte distribution width (RBC) [Ratio] 17.2 % High 11.6-14.6 [facility] Comment on above: Performed By: #### L 503.6030, L500.2500, L100.0100 ####[facility] [address] [place], [address] Hematocrit (Bld) [Volume fraction] 22.4 % Low 40-54 [facility] Comment on above: Performed By: #### L 503.6030, L500.2500, L100.0100 ####[facility] [address] [place], [address] Hemoglobin (Bld) [Mass/Vol] 6.8 g/dL Low 13.0-16.5 [facility] Comment on above: Performed By: #### L 503.6030, L500.2500, L100.0100 ####[facility] [address] [place], [address] IG% 2.100 High 0.0-0.9 [facility] Comment on above: Result Comment: IG% - Immature Granulocytes (promyelocytes, myelocytes andmetamyelocytes) > 1% indicates that a LEFT SHIFT is Present. Performed By: #### L 503.6030, L500.2500, L100.0100 ####[facility] [address] [place], [address] Lymphocytes/100 WBC (Bld) 3.4 % Low 19-41 [facility] Comment on above: Performed By: #### L 503.6030, L500.2500, L100.0100 ####[facility] [address] [place], [address] MCH (RBC) [Entitic mass] 27.4 pg Normal 27.0-32.0 [facility] Comment on above: Performed By: #### L 503.6030, L500.2500, L100.0100 ####[facility] [address] [place], [address] MCHC (RBC) [Mass/Vol] 30.4 g/dL Low 32-36 [facility] Comment on above: Performed By: #### L 503.6030, L500.2500, L100.0100 ####[facility] [address] [place], [address] MCV (RBC) [Entitic vol] 90.3 fL Normal 80-94 [facility] Comment on above: Performed By: #### L 503.6030, L500.2500, L100.0100 ####[facility] [address] [place], [address] Monocytes/100 WBC (Bld) 6.7 % Normal 0-10 [facility] Comment on above: Performed By: #### L 503.6030, L500.2500, L100.0100 ####[facility] [address] [place], [address] Neutrophils/100 WBC (Bld) 87.6 % High 47-70 [facility] Comment on above: Performed By: #### L 503.6030, L500.2500, L100.0100 ####[facility] [address] [place], [address] Nucleated RBC (Bld) [#/Vol] 0 10*3/uL Normal 0-5 [facility] Comment on above: Performed By: #### L 503.6030, L500.2500, L100.0100 ####[facility] [address] [place], [address] Platelet mean volume (Bld) [Entitic vol] 10.2 fL Normal 6.2-12.0 [facility] Comment on above: Performed By: #### L 503.6030, L500.2500, L100.0100 ####[facility] [address] [place], [address] Platelets (Bld) [#/Vol] 160 10*3/uL Normal 150-450 [facility] Comment on above: Performed By: #### L 503.6030, L500.2500, L100.0100 ####[facility] [address] [place], [address] RBC (Bld) [#/Vol] 2.48 10*6/uL Low 4.6-6.2 [facility] Comment on above: Performed By: #### L 503.6030, L500.2500, L100.0100 ####[facility] [address] [place], [address] RDW SD 56.8 fl High 35.1-43.9 [facility] Comment on above: Performed By: #### L 503.6030, L500.2500, L100.0100 ####[facility] [address] [place], [address] WBC (Bld) [#/Vol] 8.1 10*3/uL Normal 4.4-11.0 [facility] Comment on above: Performed By: #### L 503.6030, L500.2500, L100.0100 ####[facility] [address] [place], [address] Consultation - Intensiviston 09-05-2024 Consultation - Event Marketing Representative Normal [facility] ENTERIC PATHOGEN PANEL STOOL on 09-05-2024 EP PANEL Normal [facility] Comment on above: Performed By: #### M 100.637, M100.6796 ####[facility] [address] [place], [address] Electrocardiogram reportOrde red By: Peter Mohan on 09-05-2024 EKG study [facility] Work Phone: Gram Stainon 09-05-2024 GS Normal [facility] Comment on above: Performed By: #### M 100.2000, M100.2400 ####[facility] [address] [place], [address] Gram stainOrdered By: Serina Juan on 09-05-2024 Microscopic observation Gram stain Nom (Unsp spec) [facility] Hemoglobin A1con 09-05-2024 HbA1c (Bld) [Mass fraction] 7.7 % High <=5.6 [facility] Comment on above: Result Comment: Norm al < 5.7 % Prediabetic 5.7 - 6.4 % Diabetic >or= 6.5 % Please note range changes. Performed By: #### L 501.9985 ####[facility] [address] [place], [address] Hemoglobin A1c percentageOrd ered By: Stanton Ortega on 09-05-2024 HbA1c (Bld) [Mass fraction] 7.7 % High <5.7 [facility] Iron measurement (mass/mass) Ordered By: Serina Juan on 09-05-2024 Iron (Unsp spec) [Mass/Mass] 17 ug/dL Low 65-175 [facility] Iron+Iron Binding Capacityon 09-05-2024 TIBC 121 ug/dL Low 250-450 [facility] Comment on above: Performed By: #### L 503.6030, L500.2500, L100.0100 ####[facility] [address] [place], [address] MR/CON.PCM.GIon 09-05-2024 MR/CON.PCM.GI Normal [facility] Magnesiumon 09-05-2024 Magnesium [Mass/Vol] 1.3 mg/dL Low 1.5-2.2 [facility] Comment on above: Performed By: #### L 501.2300, L501.5200 ####[facility] [address] [place], [address] Microbial respiratory cultur eOrdered By: Serina Juan on 09-05-2024 Microorganism identified Cx Nom (Unsp spec) [facility] No Panel InformationOrdered By: Serina Juan on 09-05-2024 104 ug/dL Low 228-428 [facility] Phosphoruson 09-05-2024 Phosphate [Mass/Vol] 2.2 mg/dL Low 2.7-4.5 [facility] Comment on above: Performed By: #### L 501.2300, L501.5200 ####[facility] [address] [place], [address] Respiratory Cultureon 2024 RESPC List Antibiotics [place] t 48 Hours? Vanc, Zosyn UNACCEPTABLE SAMPLE, NOTIFIED JED MATTHEW 09/05/24 1123 Madeleine Rogers. REPORT READ BACK BY SAME. Test not performed Normal [facility] Comment on above: Performed By: #### M 100.2000, M100.2400 ####[facility] [address] [place], [address] Serum or plasma iron saturat ion measurement (mass fraction)Ordered By: Serina Juan on 09-05-2024 Iron saturation [Mass fraction] 14.0 % 9-55 [facility] Type AND Screenon 09-05-2024 Ab SCREEN GEL Negative Normal [facility] Comment on above: Order Comment: CMV N EG? NNumber of units to transfuse: 1Reason for Ordering Blood: AcuteAre the blood/blood products to be transfused? YIs the patient having/had surgery? NNWhen ReadyNYA Performed By: #### B TS, BRC ####[facility] [address] [place], [address] Urine Cultureon 09-05-2024 URC Culture exhibits no growth. Normal [facility] Comment on above: Performed By: #### L 400.0001, M100.678, M100.2200 ####[facility] [address] [place], [address] 12 Lead EKGon 09-04-2024 12 Lead EKG Normal [facility] Absolute lymphocyte countOrd ered By: Janie Madsen on 09-04-2024 Lymphocytes Auto (Unsp spec) [#/Vol] 0.41 10*3/uL Low 0.83-4.51 [facility] Absolute neutrophil countOrd ered By: Janie Madsen on 09-04-2024 Neutrophils (Bld) [#/Vol] 13.8 10*3/uL High 2.0-7.7 [facility] Anion gap in Serum or Plasma Ordered By: Janie Madsen on 09-04-2024 Anion gap [Moles/Vol] 14 mmol/L 5-15 [facility] Automated blood erythrocyte countOrdered By: Janie Madsen on 09-04-2024 RBC (Bld) [#/Vol] 2.60 10*6/uL Low 4.6-6.2 [facility] Comment on above: Performed By: #### L 500.2500, L100.0100, L503.6005 ####[facility] [address] [place], [address] Automated blood hematocrit ( percentage)Ordered By: Remus Cale on 09-04-2024 Hematocrit (Bld) [Volume fraction] 22.7 % Low 40-54 [facility] Comment on above: Performed By: #### L 500.2500, L100.0100, L503.6005 ####[facility] [address] [place], [address] Automated lymphocyte count a s percentage of total leukocytesOrdered By: Remus Ungjennifer on 09-04-2024 Lymphocytes/100 WBC Auto (Unsp spec) 2.7 % Low 19-41 [facility] BUN/creatinine ratioOrdered By: Remus Ungjennifer on 09-04-2024 Urea nitrogen/Creatinine [Mass ratio] 8.3 mg/mg Low 10-20 [facility] Basic Metabolic Profile (BMP )on 09-04-2024 BUN Normal 4-19 [facility] Comment on above: Result Comment: NO S PECIMEN COLLECTED Performed By: #### L 500.2500 ####[facility] [address] [place], [address] BUN/CRE Normal 10-20 [facility] Comment on above: Result Comment: NO S PECIMEN COLLECTED Performed By: #### L 500.2500 ####[facility] [address] [place], [address] Calcium Normal 7.6-11.0 [facility] Comment on above: Result Comment: NO S PECIMEN COLLECTED Performed By: #### L 500.2500 ####[facility] [address] [place], [address] CL Normal 98-108 [facility] Comment on above: Result Comment: NO S PECIMEN COLLECTED Performed By: #### L 500.2500 ####[facility] [address] [place], [address] CO2 Normal 21.0-32.0 [facility] Comment on above: Result Comment: NO S PECIMEN COLLECTED Performed By: #### L 500.2500 ####[facility] [address] [place], [address] CREAT,SERUM Normal 0.70-1.20 [facility] Comment on above: Result Comment: NO S PECIMEN COLLECTED Performed By: #### L 500.2500 ####[facility] [address] [place], [address] eGFR Normal >60 [facility] Comment on above: Result Comment: NO S PECIMEN COLLECTED Performed By: #### L 500.2500 ####[facility] [address] [place], [address] GAP Normal 5-15 [facility] Comment on above: Result Comment: NO S PECIMEN COLLECTED Performed By: #### L 500.2500 ####[facility] [address] [place], [address] GLU Normal 70-99 [facility] Comment on above: Result Comment: NO S PECIMEN COLLECTED Performed By: #### L 500.2500 ####[facility] [address] [place], [address] Potassium Normal 3.3-5.1 [facility] Comment on above: Result Comment: NO S PECIMEN COLLECTED Performed By: #### L 500.2500 ####[facility] [address] [place], [address] Basic Metabolic Profile (BMP) Normal 133-145 [facility] Comment on above: Result Comment: NO S PECIMEN COLLECTED Performed By: #### L 500.2500 ####[facility] [address] [place], [address] BUN/CRE 7.5 RATIO Low 10-20 [facility] Comment on above: Performed By: #### L 503.6550, L503.0106, L100.9950, L500.2500, L3100.1725 ####[facility] [address] [place], [address] Calcium [Mass/Vol] 8.1 mg/dL Normal 7.6-11.0 [facility] Comment on above: Performed By: #### L 503.6550, L503.0106, L100.9950, L500.2500, L3100.1725 ####[facility] [address] [place], [address] Chloride [Moles/Vol] 89 mmol/L Low 98-108 [facility] Comment on above: Performed By: #### L 503.6550, L503.0106, L100.9950, L500.2500, L3100.1725 ####[facility] [address] [place], [address] CO2 [Moles/Vol] 30.3 mmol/L Normal 21.0-32.0 [facility] Comment on above: Performed By: #### L 503.6550, L503.0106, L100.9950, L500.2500, L3100.1725 ####[facility] [address] [place], [address] Creatinine [Mass/Vol] 0.87 mg/dL Normal 0.70-1.20 [facility] Comment on above: Performed By: #### L 503.6550, L503.0106, L100.9950, L500.2500, L3100.1725 ####[facility] [address] [place], [address] ECRCL 61.49 ml/min Normal 50-250 [facility] Comment on above: Performed By: #### L 503.6550, L503.0106, L100.9950, L500.2500, L3100.1725 ####[facility] [address] [place], [address] GAP 10 Normal 5-15 [facility] Comment on above: Performed By: #### L 503.6550, L503.0106, L100.9950, L500.2500, L3100.1725 ####[facility] [address] [place], [address] GFR/1.73 sq M.predicted among non-blacks MDRD (S/P/Bld) [Vol rate/Area] 94 mL/min/{1.73_m2} Normal >60 [facility] Comment on above: Result Comment: mL/m in/1.73m2 CKD-EPI Creatinine Equation (2020) Performed By: #### L 503.6550, L503.0106, L100.9950, L500.2500, L3100.1725 ####[facility] [address] [place], [address] Glucose [Mass/Vol] 158 mg/dL High 70-99 [facility] Comment on above: Performed By: #### L 503.6550, L503.0106, L100.9950, L500.2500, L3100.1725 ####[facility] [address] [place], [address] Potassium [Moles/Vol] 2.4 mmol/L Invalid Interpretation Code 3.3-5.1 [facility] Comment on above: Result Comment: Crit ical Result(s) Called to: Meghan MATTHEW (ICU) by:Geovanna??Results read back by same. Performed By: #### L 503.6550, L503.0106, L100.9950, L500.2500, L3100.1725 ####[facility] [address] [place], [address] Sodium [Moles/Vol] 129 mmol/L Low 133-145 [facility] Comment on above: Performed By: #### L 503.6550, L503.0106, L100.9950, L500.2500, L3100.1725 ####[facility] [address] [place], [address] Urea nitrogen [Mass/Vol] 7 mg/dL Normal 4-19 [facility] Comment on above: Performed By: #### L 503.6550, L503.0106, L100.9950, L500.2500, L3100.1725 ####[facility] [address] [place], [address] BUN/CRE 8.3 RATIO Low 10-20 [facility] Comment on above: Performed By: #### L 500.2500, L100.0100, L503.6005 ####[facility] [address] [place], [address] ECRCL 85.00 ml/min Normal 50-250 [facility] Comment on above: Performed By: #### L 500.2500, L100.0100, L503.6005 ####[facility] [address] [place], [address] GAP 14 Normal 5-15 [facility] Comment on above: Performed By: #### L 500.2500, L100.0100, L503.6005 ####[facility] [address] [place], [address] Potassium [Moles/Vol] 2.5 mmol/L Invalid Interpretation Code 3.3-5.1 [facility] Comment on above: Result Comment: Crit ical Result(s) Called at: 09/06/2024-12:13 by: Wilmer Rainey.??Results read back by same. Performed By: #### L 500.2500, L100.0100, L503.6005 ####[facility] [address] [place], [address] Basophil percentageOrdered B y: Remus Ungur on 09-04-2024 Basophils/100 WBC (Bld) 0.1 % Normal 0-1 [facility] Comment on above: Performed By: #### L 500.2500, L100.0100, L503.6005 ####[facility] [address] [place], [address] Bedside Glucoseon 09-04-2024 FINGERSTICK GLU 197 mg/dL High 74-106 [facility] Comment on above: Result Comment: JEFRY GEMENT OF PATIENT CARE PER NURSING PROTOCOL Performed By: #### L 501.080 ####[facility] [address] [place], [address] FINGERSTICK GLU 152 mg/dL High 74-106 [facility] Comment on above: Result Comment: JEFRY GEMENT OF PATIENT CARE PER NURSING PROTOCOL Performed By: #### L 501.080 ####[facility] [address] [place], [address] Bilirubin Test strip Ql (U)O rdered By: Remus Ungur on 09-04-2024 Bilirubin Ql (U) Negative Negative [facility] Blood cultureOrdered By: Rem us Ungur on 09-04-2024 Bacteria identified Cx Nom (Bld) Staphylococcus aureus Abnormal [facility] Bacteria identified Cx Nom (Bld) Streptococcus group G Abnormal [facility] CBC W/Diff, Automatedon 08-14 Absolute Lymph 0.41 X10 3/uL Low 0.83-4.51 [facility] Comment on above: Performed By: #### L 500.2500, L100.0100, L503.6005 ####[facility] [address] [place], [address] Absolute Neut 13.8 X10 3/uL High 2.0-7.7 [facility] Comment on above: Performed By: #### L 500.2500, L100.0100, L503.6005 ####[facility] [address] [place], [address] IG% 1.500 High 0.0-0.9 [facility] Comment on above: Result Comment: IG% - Immature Granulocytes (promyelocytes, myelocytes andmetamyelocytes) > 1% indicates that a LEFT SHIFT is Present. Performed By: #### L 500.2500, L100.0100, L503.6005 ####[facility] [address] [place], [address] Lymphocytes/100 WBC (Bld) 2.7 % Low 19-41 [facility] Comment on above: Performed By: #### L 500.2500, L100.0100, L503.6005 ####[facility] [address] [place], [address] Nucleated RBC (Bld) [#/Vol] 0 10*3/uL Normal 0-5 [facility] Comment on above: Performed By: #### L 500.2500, L100.0100, L503.6005 ####[facility] [address] [place], [address] RDW SD 53.2 fl High 35.1-43.9 [facility] Comment on above: Performed By: #### L 500.2500, L100.0100, L503.6005 ####[facility] [address] [place], [address] CDIFF (PCR)on 09-04-2024 CDIFF Is the patient recei ving laxatives? N New/unexplained onset of 3 or more stools in past 24 hrs? Y Pending 027 027 NAP1-B1 Presumptive Negative *for epidemiolologic???use C. Diff PCR Negative- No toxigenic C. Diff Detected Normal [facility] Comment on above: Performed By: #### M 100.637, M100.6796 ####[facility] [address] [place], [address] [facility] ([id number]) 1955 M Date Time Provider Department 09/04/24 SHILPI BROOKS During your visit today, we recorded the following information about you: Shilpi Brooks RN 09/04/2024 4:14 PM Signed Patient admitted to [facility]. Will follow for discharge and schedule follow up with Dr. Gutierrez. VIPUL Castro Melissa 09/06/2024 10:50 AM Signed Received call today to reschedule 09/05 appt with Angie. Stating that patient may be discharged in a couple of days. Patient is scheduled for 09/12. Caller requested to inform Dr. Dunaway as well. Allergies As of Date: 09/04/2024 (No Known Allergies) Date Reviewed: 08/28/2024 Reviewed by: Enriqueta Amado, VIPUL - Fully Assessed Reason for Visit: Patient [...] 1 Puff as instructed once daily. - [id number]-[id number]-NUIEK TER INHALATION Inhale as instructed. - ALBUTEROL [...] lung (HCC) [C34*08/28/2024 Encounter Status:Closed by SHILPI BROOKS on 09/07/[address] [facility] [address], Abd, Pel w/Contras ton 09-04-2024 CT Chest, Abd, Pel w/Contrast Normal [facility] Carbon dioxide, total [Moles /volume] in Central venous bloodOrdered By: Janie Madsen on 09-04-2024 CO2 [Moles/Vol] 29.8 mmol/L Normal 21.0-32.0 [facility] Comment on above: Performed By: #### L 500.2500, L100.0100, L503.6005 ####[facility] [address] [place], [place], [address] Chest 1 View (Portable)on Chest 1 View (Portable) Normal [facility] Chloride assayOrdered By: Karen Madsen on 09-04-2024 Chloride [Moles/Vol] 80 mmol/L Low 98-108 [facility] Comment on above: Performed By: #### L 500.2500, L100.0100, L503.6005 ####[facility] [address] [place], [place], [address] Clostridium difficile detect ion by polymerase chain reactionOrdered By: Serina Juan on 09-04-2024 C. difficile DNA PREMA+probe Ql (Unsp spec) [facility] Emergency Department Summary on 09-04-2024 Emergency Department Summary Normal [facility] Eosinophil percentageOrdered By: Janie Madsen on 09-04-2024 Eosinophils/100 WBC (Bld) 0.0 % Normal 0-5 [facility] Comment on above: Performed By: #### L 500.2500, L100.0100, L503.6005 ####[facility] [address] [place], [place], [address] Erythrocyte distribution wid th ratioOrdered By: Janie Madsen on 09-04-2024 Erythrocyte distribution width (RBC) [Ratio] 16.9 % High 11.6-14.6 [facility] Comment on above: Performed By: #### L 500.2500, L100.0100, L503.6005 ####[facility] [address] [place], [place], [address] Erythrocyte distribution wid th standard deviationOrdered By: Janie Madsen on 09-04-2024 Erythrocyte distribution width (RBC) [Ratio] 53.2 fl High 35.1-43.9 [facility] Erythrocyte folate measureme nt with hematocritOrdered By: Serina Juan on 09-04-2024 Hematocrit (Bld) [Volume fraction] 22.6 % Low 37.5-51.0 [facility] Ferritinon 09-04-2024 Ferritin [Mass/Vol] 1172 ng/mL High 37-417 [facility] Comment on above: Performed By: #### L 503.6550, L503.0106, L100.9950, L500.2500, L3100.1725 ####[facility] [address] [place], [place], [address] Glomerular filtration rate ( GFR) estimation/1.73 sq m using serum, plasma, or whole bOrdered By: Janie Madsen on 09-04-2024 GFR/1.73 sq M.predicted among non-blacks MDRD (S/P/Bld) [Vol rate/Area] 89 mL/min/{1.73_m2} Normal >60 [facility] Comment on above: mL/min/1.73m2 CKD-EP I Creatinine Equation (2020) Result Comment: mL/m in/1.73m2 CKD-EPI Creatinine Equation (2020) Performed By: #### L 500.2500, L100.0100, L503.6005 ####[facility] [address] [place], [place], [address] H AND P Exam - Hospitaliston 09-04-2024 H&P Exam - Hospitalist Normal [facility] Hemoglobin measurementOrdere d By: Janie Madsen on 09-04-2024 Hemoglobin (Bld) [Mass/Vol] 7.2 g/dL Low 13.0-16.5 [facility] Comment on above: Performed By: #### L 500.2500, L100.0100, L503.6005 ####[facility] [address] [place], [place], [address] Immature granulocytes/100 WB C Auto (Bld)Ordered By: Janie Cale on 09-04-2024 Immature granulocytes/100 WBC (Bld) 1.500 % High 0.0-0.9 [facility] Comment on above: IG% - Immature Granu locytes (promyelocytes, myelocytes and metamyelocytes) > 1% indicates that a LEFT SHIFT is Present. Influenza virus A and B and SARS-CoV-2 (COVID-19) and Respiratory syncytial virus RNAOrdered By: Janie Madsen on 09-04-2024 SARS-CoV-2 (COVID-19) RNA PREMA+probe Ql (Unsp spec) [facility] Ketones Test strip Ql (U)Ord ered By: Janie Madsen on 09-04-2024 Ketones Ql (U) Negative Negative [facility] Lactic Acidon 09-04-2024 Lactate [Moles/Vol] 1.1 mmol/L Normal 0.0-2.0 [facility] Comment on above: Performed By: #### L 503.6005 ####[facility] [address] [place], [place], [address] Lactic acid measurementOrder ed By: Janie Madsen on 09-04-2024 Lactate [Moles/Vol] 2.9 mmol/L Invalid Interpretation Code 0.0-2.0 [facility] Comment on above: Critical Result(s) C alled at: 09/06/2024-:13 by: Marco Hicks to Triny Rainey. Results read back by same. Order Comment: Y Result Comment: Crit ical Result(s) Called at: 09/06/2024-12:13 by: Wilmer Rainey.??Results read back by same. Performed By: #### L 500.2500, L100.0100, L503.6005 ####[facility] [address] [place], [address] M100.678on 09-04-2024 M100.678 SARS-CoV-2 (COVID 19 ) Negative INFLUENZA A Negative INFLUENZA B Negative RSV PCR Negative Normal [facility] Comment on above: Performed By: #### L 400.0001, M100.678, M100.2200 ####[facility] [address] [place], [address] MCV (mean corpuscular volume ) determinationOrdered By: Remus Ungjennifer on 09-04-2024 MCV (RBC) [Entitic vol] 87.3 fL Normal 80-94 [facility] Comment on above: Performed By: #### L 500.2500, L100.0100, L503.6005 ####[facility] [address] [place], [address] Mean corpuscular hemoglobin (MCH) determinationOrdered By: Remus Ungjennifer on 09-04-2024 MCH (RBC) [Entitic mass] 27.7 pg Normal 27.0-32.0 [facility] Comment on above: Performed By: #### L 500.2500, L100.0100, L503.6005 ####[facility] [address] [place], [address] Mean corpuscular hemoglobin concentration (MCHC) determinationOrdered By: Remus Ungjennifer on 09-04-2024 MCHC (RBC) [Mass/Vol] 31.7 g/dL Low 32-36 [facility] Comment on above: Performed By: #### L 500.2500, L100.0100, L503.6005 ####[facility] [address] [place], [address] Mean platelet volume determi nationOrdered By: Remus Ungjennifer on 09-04-2024 Platelet mean volume (Bld) [Entitic vol] 10.1 fL Normal 6.2-12.0 [facility] Comment on above: Performed By: #### L 500.2500, L100.0100, L503.6005 ####[facility] [address] [place], [place], [address] Microscopic analysis of urin e for red blood cells (RBC)Ordered By: Janie Madsen on 09-04-2024 Microscopic analysis of urine for red blood cells (RBC) 0-5 SEEN /hpf 0-5 [facility] Monocyte percentageOrdered B y: Janie Madsen on 09-04-2024 Monocytes/100 WBC (Bld) 5.5 % Normal 0-10 [facility] Comment on above: Performed By: #### L 500.2500, L100.0100, L503.6005 ####[facility] [address] [place], [place], [address] Mucus LM Ql (Urine sed)Order ed By: Janie Madsen on 09-04-2024 Mucus Ql (Urine sed) 0 SEEN /hpf [facility] Neutrophil percentageOrdered By: Janie Madsen on 09-04-2024 Neutrophils/100 WBC (Bld) 90.2 % High 47-70 [facility] Comment on above: Performed By: #### L 500.2500, L100.0100, L503.6005 ####[facility] [address] [place], [place], [address] Nitrite Test strip Ql (U)Ord ered By: Janie Madsen on 09-04-2024 Nitrite Ql (U) Negative Negative [facility] Nucleated red blood cell per centageOrdered By: Janie Madsen on 09-04-2024 Nucleated RBC/100 WBC (Bld) [Ratio] 0 % 0-5 [facility] Pelvis 1 or 2 Viewson 2024 Pelvis 1 or 2 Views Normal [facility] Platelet countOrdered By: Karen Madsen on 09-04-2024 Platelets (Bld) [#/Vol] 235 10*3/uL Normal 150-450 [facility] Comment on above: Performed By: #### L 500.2500, L100.0100, L503.6005 ####[facility] [address] [place], [address] Potassium measurement (mass/ volume)Ordered By: Janie Madsen on 09-04-2024 Potassium (Unsp spec) [Mass/Vol] 2.5 mmol/L Low 3.3-5.1 [facility] Comment on above: Critical Result(s) C alled at: 09/06/2024-12:13 by: Marco Hicks to Triny Rainey. Results read back by same. Protein Test strip Ql (U)Ord ered By: Janie Madsen on 09-04-2024 Protein Ql (U) 30 mg/dl High Negative [facility] Retic Panelon 09-04-2024 IM RET FRACTION 17.80 High 3.00-15.90 [facility] Comment on above: Performed By: #### L 503.6550, L503.0106, L100.9950, L500.2500, L3100.1725 ####[facility] [address] [place], [address] RET-HE 25.2 pg Low 30-35 [facility] Comment on above: Performed By: #### L 503.6550, L503.0106, L100.9950, L500.2500, L3100.1725 ####[facility] [address] [place], [address] Retic Count 2.23 High 0.5-1.5 [facility] Comment on above: Performed By: #### L 503.6550, L503.0106, L100.9950, L500.2500, L3100.1725 ####[facility] [address] [place], [address] Reticulocyte hemoglobin equi valent (RET-He) measurementOrdered By: Serina Juan on 09-04-2024 Hemoglobin (Reticulocytes) [Entitic mass] 25.2 pg Low 30-35 [facility] Reticulocytes Auto (Bld) [#/ Vol]Ordered By: Serina Juan on 09-04-2024 Reticulocytes/100 RBC (Bld) 2.23 % High 0.5-1.5 [facility] Serum creatinine measurement (mass/volume)Ordered By: Janie Madsen on 09-04-2024 Creatinine [Mass/Vol] 0.94 mg/dL Normal 0.70-1.20 [facility] Comment on above: Performed By: #### L 500.2500, L100.0100, L503.6005 ####[facility] [address] [place], [address] Serum glucose measurement (m ass/volume)Ordered By: Janie Madsen on 09-04-2024 Glucose [Mass/Vol] 280 mg/dL High 70-99 [facility] Comment on above: Performed By: #### L 500.2500, L100.0100, L503.6005 ####[facility] [address] [place], [address] Serum or plasma calcium alfreda urement (mass/volume)Ordered By: Remus Madsen on 09-04-2024 Calcium [Mass/Vol] 8.4 mg/dL Normal 7.6-11.0 [facility] Comment on above: Performed By: #### L 500.2500, L100.0100, L503.6005 ####[facility] [address] [place], [address] Serum or plasma ferritin joe surement (mass/volume)Ordered By: Serina Juan on 09-04-2024 Ferritin [Mass/Vol] 1172 ng/mL High 37-417 [facility] Serum or plasma urea nitroge n measurement (mass/volume)Ordered By: Janie Madsen on 09-04-2024 Urea nitrogen [Mass/Vol] 8 mg/dL Normal 4-19 [facility] Comment on above: Performed By: #### L 500.2500, L100.0100, L503.6005 ####[facility] [address] [place], [address] Sodium levelOrdered By: Shon Madsen on 09-04-2024 Sodium [Moles/Vol] 124 mmol/L Low 133-145 [facility] Comment on above: Performed By: #### L 500.2500, L100.0100, L503.6005 ####[facility] [address] [place], [address] Squamous epithelial cells de tection in urine sediment by light microscopyOrdered By: Janie Madsen on 09-04-2024 Epithelial cells.squamous LM Ql (Urine sed) 0-5 SEEN /hpf 0-5 [facility] Toe(s) Min 2 Viewson 025 Toe(s) Min 2 Views Normal [facility] Urinalysis, Completeon 09-04 EPI,SQUAMOUS 0-5 SEEN Normal 0-5 [facility] Comment on above: Order Comment: CLEAN CATCH Performed By: #### L 400.0001, M100.678, M100.2200 ####[facility] [address] [place], [address] RBC 0-5 SEEN Normal 0-5 [facility] Comment on above: Order Comment: CLEAN CATCH Performed By: #### L 400.0001, M100.678, M100.2200 ####[facility] [address] [place], [address] WBC 0-5 SEEN Normal 0-5 [facility] Comment on above: Order Comment: CLEAN CATCH Performed By: #### L 400.0001, M100.678, M100.2200 ####[facility] [address] [place], [address] BACTERIA 0 SEEN Normal None Seen [facility] Comment on above: Order Comment: CLEAN CATCH Performed By: #### L 400.0001, M100.678, M100.2200 ####[facility] [address] [place], [address] Mucus Ql (Urine sed) [address] [facility] Comment on above: Order Comment: CLEAN CATCH Performed By: #### L 400.0001, M100.678, M100.2200 ####[facility] [address] [place], [place], [id number] Urine clarityOrdered By: Rem us Madsen on 09-04-2024 Clarity (U) Clear Clear [facility] Urine color determinationOrd ered By: Janie Madsen on 09-04-2024 Color (U) Yellow Yellow [facility] Urine cultureOrdered By: Rem us Cale on 09-04-2024 Bacteria identified Cx Nom (U) Culture exhibits no growth. [facility] Urine glucose detectionOrder ed By: Janie Madsen on 09-04-2024 Glucose Ql (U) 50 mg/dl High Normal [facility] Urine leukocyte esterase det ection by dipstickOrdered By: Janie Madsen on 09-04-2024 Leukocyte esterase Test strip Ql (U) Negative Negative [facility] Urine pHOrdered By: Janie Shrestha gur on 09-04-2024 pH (U) 6.0 [pH] 5.0 - 8.0 [facility] Urine sediment bacteria coun t by microscopy (number/high power field)Ordered By: Janie Madsen on 09-04-2024 Bacteria LM.HPF (Urine sed) [#/Area] 0 /[HPF] None Seen [facility] [facility] Urine specific gravity measu rementOrdered By: Janie Madsen on 09-04-2024 Specific gravity (U) [Rel density] 1.010 1.002-1.03 0 [facility] Urine urobilinogen measureme ntOrdered By: Janie Madsen on 09-04-2024 Urobilinogen Ql (U) Normal mg/dl Normal [facility] Vitamin B12on 09-04-2024 Cobalamin (Vitamin B12) [Mass/Vol] 690 pg/mL Normal 180-914 [facility] Comment on above: Performed By: #### L 503.6550, L503.0106, L100.9950, L500.2500, L3100.1725 ####[facility] [id number] [place], [address] Vitamin B12 ser/plasOrdered By: Serina Juan on 09-04-2024 Cobalamin (Vitamin B12) [Mass/Vol] 690 pg/mL 180-914 [facility] White blood cell (WBC) count Ordered By: Janie Madsen on 09-04-2024 WBC (Bld) [#/Vol] 15.3 10*3/uL High 4.4-11.0 [facility] Comment on above: Performed By: #### L 500.2500, L100.0100, L503.6005 ####[facility] [id number] [place], [address] White blood cell countOrdere d By: Janie Madsen on 09-04-2024 White blood cell count 0-5 SEEN /hpf 0-5 [facility] CNPNon 08-31-2024 CNPN Telephone (JAMES) REY MEAD ([id number]) 1955 M Date Time Provider Department 08/31/24 SHILPI BROOKS During your visit today, we recorded the following information about you: Shilpi Brooks RN 08/31/2024 3:14 PM Signed PSS: please schedule a f/u OV with Angie Block on 09/05/24 at 11am. (that slot was a STAFF ASSISTANT slot that got split and 11am should be available) Luis F is aware. Please call patient with update, he will see Angie after Dr. Dunaway appointment on 09/05/24 to discuss next steps. VIPUL Castro Naomi 08/31/2024 3:59 PM Signed This has been scheduled and pt is aware. Estefania Hernandez Allergies As of Date: 08/31/2024 (No Known Allergies) Date Reviewed: 08/28/2024 Reviewed by: Enriqueta Amado RN - Fully Assessed Reason for Visit: Future [...] 1 Puff as instructed once daily. - XNLWWHLGTJE-XHXIMPTHZ-IXCMT TER INHALATION Inhale as instructed. - ALBUTEROL [...] lung (HCC) [C34*08/28/2024 Encounter Status:Closed by ESTEFANIA HERNANDEZ on [facility] ([id number]) 1955 M Date Time Provider Department 08/31/24 [facility] RADTFLOYD During your visit today, we recorded the following information about you: Enriqueta Amado, VIPUL 08/31/2024 10:16 AM Signed Patient is asking for a prescription for a walker. Enriqueta Amado, VIPUL 08/31/2024 1:[address] Dunaway did a prescription. I will give to patient when he is here for radiation on 09/01. I left a message for patient with this information on his voicemail. 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 - TYFNBVYPRGS-GYYJOTJGX-CIGXV TER INHALATION Inhale as instructed. - ALBUTEROL [...] Encounter Status:Closed by ENRIQUETA AMADO on 08/31/24 [facility] REY MEAD ([id number]) 1955 M Date Time Provider Department 08/30/24 12:45 PM [facility] During your visit today, we recorded the following information about you: Jacy Cao RN 08/30/2024 1:27 PM Signed Radiation Therapy - Patient Education Note PATIENT NAME: Rey Mead PATIENT August 30, 2024 [facility] FACILITY/LOCATION: [place] READINESS TO LEARN Cognitive Ability: Alert and [...] 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 Patient has an Onbody or Implanted device: No Signed by: Jacy Cao RN Allergies As of Date: 08/30/2024 (No [...] 1 Puff as instructed once daily. - IXPJLHZUTPD-BWIFXTSQL-MSTJB TER INHALATION Inhale as instructed. - ALBUTEROL [...] lung (HCC) [C34*08/28/2024 Encounter Status:Closed by JACY CAO on 08/30/24 Normal [facility] CNOVon 08-28-2024 CNOV Office Visit (RADTWS ) REY MEAD ([id number]) 1955 M Date Time Provider Department 08/28/24 1:00 PM JONH MUNOZ During your visit today, we recorded the following information about you: Temperature Pulse Respiration Blood pressure 97.4 degrees 77/minute 15/minute 90/48 Jonh Munoz MD 08/28/2024 2:18 PM Signed Radiation Oncology - New Patient/Consult Note PATIENT NAME: Rey Mead PATIENT REQUESTING PROVIDER: Wolfgang Gutierrez MD. DIAGNOSIS: Metastatic initial inoperable stage IA3 [...] nodes. Mr. Mead was seen by Dr. Gutierrez on 03/07/2024 and noted intermittent mild, dull, [...] Mr. Mead was again seen by Dr. Gutierrez on 07/13/2024 and again noted mild, dull, [...] transverse pr (more content not included)... Normal [facility] REFERRAL FOR ADDITIONAL BIOM ARKER AND MOLECULAR TESTINGon 08-28-2024 REFERRAL FOR ADDITIONAL BIOMARKER AND MOLECULAR TESTING Normal [facility] Comment on above: Order Comment: Speci men Type: TISSUE SPECIMENOrdering Facility: [facility] Address: [address] [place], [place] [address] Result Comment: Requ est has been received for evaluation and the results will be issued separately. Performed By: #### A PMOL ####[facility] [id number] [place] [address] [place] 08-24-2024 CNPN Telephone ([employer]ace [employer]TWS) REY MEAD ([id number]) 1955 M Date Time Provider Department 08/24/24 JAZLYN, JONH RADTWS During your visit today, we recorded the following information about you: Enriqueta Amado RN 08/24/2024 2:05 PM Addendum Please contact patient and reschedule his radiation consultation from 08/[address] Dunaway to tomorrow with Dr Munoz per request of Dr Gutierrez for increased pain. If unable to reach patient please try emergency contact. Thanks! Shilpi Brooks RN 08/25/2024 2:29 PM Signed See other phone note. Keiry Brooks RN Allergies As of Date: 08/24/2024 (No [...] 1 Puff as instructed once daily. - ZTQLOJQXRYP-DMANJIYHG-DKDNT TER INHALATION Inhale as instructed. - ALBUTEROL [...] mass [R91.8] 04/02/2023 Encounter Status:Closed by SHILPI BROOKS on 08/25/[address] HNO ID: [id number] Author: RUSLAN DELUNA TECHNOLOGIST Service: Radiology Author Type: Technologist Type: Allied Health Filed: 08/21/2024 14:58 Note Text: Radiology Service Progress Note PATIENT NAME: Rey Maed DATE OF SERVICE: August 21, 2024 TIME: [...] PATIENT PRESENTS WITH AN IMPLANTABLE OR ATTACHED SENIOR HEALTH PHYSICS TECHNICIAN: No RADIOLOGY DEPARTMENT: Biopsy PERIPHERAL IV DATA: Not applicable SIGNED BY: Ruslan Deluna, TECHNOLOGIST August 21, 2024 2:57 PM [facility] CBC W Auto Differential pane l (Bld)on 08-21-2024 Basophils (Bld) [#/Vol] [facility] Basophils/100 WBC (Bld) 0.1 % [facility] Differential cell count method Nom (Bld) Auto [facility] Eosinophils (Bld) [#/Vol] [facility] Eosinophils/100 WBC (Bld) 0.1 % [facility] Erythrocyte distribution width (RBC) [Ratio] 17.7 % High 11.5 - 15.0 % [facility] Hematocrit (Bld) [Volume fraction] 31.5 % Low 39.0 - 51.0 % [facility] Hemoglobin (Bld) [Mass/Vol] 9.7 g/dL Low 13.0 - 17.0 g/dL [facility] Immature granulocytes (Bld) [#/Vol] 0.2 10*3/uL High [facility] Immature granulocytes/100 WBC (Bld) 1.3 % [facility] Interpretation and review of laboratory results Abnormal [facility] Lymphocytes (Bld) [#/Vol] 1.56 10*3/uL [facility] Lymphocytes/100 WBC (Bld) 9.9 % [facility] MCH (RBC) [Entitic mass] 27.4 pg 26.0 - 34.0 pg [facility] MCHC (RBC) [Mass/Vol] 30.8 g/dL 30.5 - 36.0 g/dL [facility] MCV (RBC) [Entitic vol] 89 fL 80.0 - 100.0 fL [facility] Monocytes (Bld) [#/Vol] 0.81 10*3/uL [facility] Monocytes/100 WBC (Bld) 5.2 % [facility] Neutrophils (Bld) [#/Vol] 13.09 10*3/uL High [facility] Neutrophils/100 WBC (Bld) 83.4 % [facility] Nucleated RBC (Bld) [#/Vol] [facility] Nucleated RBC/100 WBC (Bld) [Ratio] 0 % /100 WBC [facility] Platelet mean volume (Bld) [Entitic vol] 8.6 fL Low 9.0 - 12.7 fL [facility] Platelets (Bld) [#/Vol] 267 10*3/uL [facility] RBC (Bld) [#/Vol] 3.54 10*6/uL Low 4.20 - 6.00 m/uL [facility] WBC (Bld) [#/Vol] 15.69 10*3/uL High [facility] Basophils (Bld) [#/Vol] 10*3/uL Normal <0.11 [facility] Comment on above: Order Comment: Speci men Type: BLOOD SPECIMEN [facility] Facility[facility] Address: [address] [place] [address] Performed By: #### 5 7021-8 #### [facility] CLIA [id number] [address] [place] Basophils/100 WBC (Bld) 0.1 % Normal [facility] Comment on above: Order Comment: Speci men Type: BLOOD SPECIMEN Ordering Facility: [facility] Address: [address] [place] [address] Performed By: #### 5 7021-8 #### [facility] CLIA [id number] [address] [place] Differential cell count method Nom (Bld) Auto Normal [facility] Comment on above: Order Comment: Speci men Type: BLOOD SPECIMEN [facility]ing Facility: [facility] Address: [address] [place] [address] Performed By: #### 5 7021-8 #### [facility] CLIA [id number] [address] [place] [address] [place] Eosinophils (Bld) [#/Vol] 10*3/uL Normal <0.46 [facility] Comment on above: Order Comment: Speci men Type: BLOOD SPECIMEN Ordering Facility: [facility] Address: [address] [place] [address] Performed By: #### 5 7021-8 #### [facility] CLIA [id number] [address] [place] Eosinophils/100 WBC (Bld) 0.1 % Normal [facility] Comment on above: Order Comment: Speci men Type: BLOOD SPECIMEN Ordering Facility: [facility] Address: [address] [place] [address] Performed By: #### 5 7021-8 #### [facility] CLIA [id number] [address] [place] [address] [place] Erythrocyte distribution width (RBC) [Ratio] 17.7 % High 11.5-15.0 [facility] Comment on above: Order Comment: Speci men Type: BLOOD SPECIMEN Ordering Facility: [facility] Address: [address] [place] [address] Performed By: #### 5 7021-8 #### [facility] CLIA [id number] [address] [place] Hematocrit (Bld) [Volume fraction] 31.5 % Low 39.0-51.0 [facility] Comment on above: Order Comment: Speci men Type: BLOOD SPECIMEN Ordering Facility: [facility] Address: [address] [place] [address] Performed By: #### 5 7021-8 #### [facility] CLIA [id number] [address] [place] [address] [place] Hemoglobin (Bld) [Mass/Vol] 9.7 g/dL Low 13.0-17.0 [facility] Comment on above: Order Comment: Speci men Type: BLOOD SPECIMEN Ordering Facility: [facility] Address: [address] [place] [address] Performed By: #### 5 7021-8 #### [facility] CLIA [id number] [address] [place] [address] [place] Immature granulocytes (Bld) [#/Vol] 0.20 10*3/uL High <0.10 [facility] Comment on above: Order Comment: Speci men Type: BLOOD SPECIMEN Ordering Facility: [facility] Address: [address] [place] [address] Performed By: #### 5 7021-8 #### [facility] CLIA [id number] [address] OF [place] Immature granulocytes/100 WBC (Bld) 1.3 % Normal [facility] Comment on above: Order Comment: Speci men Type: BLOOD SPECIMEN Ordering Facility: [facility] Address: [address] [place] [address] Performed By: #### 5 7021-8 #### [facility] CLIA [id number] [address] Lymphocytes (Bld) [#/Vol] 1.56 10*3/uL Normal 1.00-4.00 [facility] Comment on above: Order Comment: Speci men Type: BLOOD SPECIMEN Ordering Facility: [facility] Address: [address] [place] [address] Performed By: #### 5 7021-8 #### [facility] CLIA [id number] [address] Lymphocytes/100 WBC (Bld) 9.9 % Normal [facility] Comment on above: Order Comment: Speci men Type: BLOOD SPECIMEN Ordering Facility: [facility] Address: [address] [place] [address] Performed By: #### 5 7021-8 #### [facility] CLIA [id number] [address] MCH (RBC) [Entitic mass] 27.4 pg Normal 26.0-34.0 [facility] Comment on above: Order Comment: Speci men Type: BLOOD SPECIMEN Ordering Facility: [facility] Address: [address] [place] [address] Performed By: #### 5 7021-8 #### [facility] CLIA [id number] [address] MCHC (RBC) [Mass/Vol] 30.8 g/dL Normal 30.5-36.0 [facility] Comment on above: Order Comment: Speci men Type: BLOOD SPECIMEN [facility] Facility[facility] Address: [address] [place] [address] Performed By: #### 5 7021-8 #### [facility] CLIA [id number] [address] MCV (RBC) [Entitic vol] 89.0 fL Normal 80.0-100.0 [facility] Comment on above: Order Comment: Speci men Type: BLOOD SPECIMEN Ordering Facility: [facility] Address: [address] [place] [address] Performed By: #### 5 7021-8 #### [facility] CLIA [id number] [address] [place] [address] [place] Monocytes (Bld) [#/Vol] 0.81 10*3/uL Normal <0.87 [facility] Comment on above: Order Comment: Speci men Type: BLOOD SPECIMEN Ordering Facility: [facility] Address: [address] [place] [address] Performed By: #### 5 7021-8 #### [facility] CLIA [id number] [address] OF [place] Monocytes/100 WBC (Bld) 5.2 % Normal [facility] Comment on above: Order Comment: Speci men Type: BLOOD SPECIMEN Ordering Facility: [facility] Address: [address] [place] [address] Performed By: #### 5 7021-8 #### [facility] CLIA [id number] [address] [place] [address] [place] Neutrophils (Bld) [#/Vol] 13.09 10*3/uL High 1.45-7.50 [facility] Comment on above: Order Comment: Speci men Type: BLOOD SPECIMEN Ordering Facility: [facility] Address: [address] [place] [address] Performed By: #### 5 7021-8 #### [facility] CLIA [id number] [address] [place] Neutrophils/100 WBC (Bld) 83.4 % Normal [facility] Comment on above: Order Comment: Speci men Type: BLOOD SPECIMEN Ordering Facility: [facility] Address: [address] [place] [address] Performed By: #### 5 7021-8 #### [facility] CLIA [id number] [address] [place] [address] [place] Nucleated RBC (Bld) [#/Vol] 10*3/uL Normal <0.01 [facility] Comment on above: Order Comment: Speci men Type: BLOOD SPECIMEN Ordering Facility: [facility] Address: [address] [place] [address] Performed By: #### 5 7021-8 #### [facility] CLIA [id number] [address] [place] [address] [place] Nucleated RBC/100 WBC (Bld) [Ratio] 0.0 /100 WBC Normal [facility] Comment on above: Order Comment: Speci men Type: BLOOD SPECIMEN [facility] Facility[facility] Address: [address] [place] [address] Performed By: #### 5 7021-8 #### [facility] CLIA [id number] [address] [place] [address] [place] Platelet mean volume (Bld) [Entitic vol] 8.6 fL Low 9.0-12.7 [facility] Comment on above: Order Comment: Speci men Type: BLOOD SPECIMEN Ordering Facility: [facility] Address: [address] [place] [address] Performed By: #### 5 7021-8 #### [facility] CLIA [id number] [address] [place] [address] [place] Platelets (Bld) [#/Vol] 267 10*3/uL Normal 150-400 [facility] Comment on above: Order Comment: Speci men Type: BLOOD SPECIMEN [facility] Facility[facility] Address: [address] [place] [address] Performed By: #### 5 7021-8 #### [facility] CLIA [id number] [address] [place] [address] [place] RBC (Bld) [#/Vol] 3.54 10*6/uL Low 4.20-6.00 [facility] Comment on above: Order Comment: Speci men Type: BLOOD SPECIMEN [facility] Address: [address] [place] [address] Performed By: #### 5 7021-8 #### [facility] CLIA [id number] [address] [place] WBC (Bld) [#/Vol] 15.69 10*3/uL High 3.70-11.00 [facility] Comment on above: Order Comment: Speci men Type: BLOOD SPECIMEN Ordering Facility[facility] Address: [address] [place] [id number] Performed By: #### 5 7021-8 #### [facility] CLIA [id number] [address] [place] [address] [place] [facility] CT BIOPSY SOFT TISS MASS/MUS [facility] 08-21-2024 CT BIOPSY SOFT TISS MASS/MUSCLE * * *Final Report* * * DATE OF EXAM: Aug 21 2024 2:57PM [facility] [place] BIOPSY SOFT TISS MASS/MUSCLE [...] Right paraspinal soft tissue mass core biopsy Sock Boarder: PSCB Transcribe Date/Time: Aug 21 2024 4:00P Dictated by : MARCO GAY MD This examination was interpreted and the report reviewed and electronically signed by: MARCO GAY MD on Aug 21 2024 4:03PM EST [id number] [facility] NTRK NEXT GENERATION SEQUENC [facility] 08-21-2024 NTRK NEXT GENERATION SEQUENCING NTRK NGS Panel [facility] Comment on above: Order Comment: Speci men Type: TISSUE SPECIMEN Ordering Facility[facility] Address: [address] [place] [id number] Result Comment: Laboratory Accession Number: [id number] Case #: [id number] Block #: A1 Sample Type: FFPET % [...] its performance characteristics determined by [facility]'s Pathology and Laboratory Medicine Department. It has not been cleared or approved by the FDA. [facility]'s Pathology and Laboratory Medicine Department is regulated under CLIA as certified to perform high-complexity testing. This test is used for clinical purposes. It should not be regarded as investigational or for research. Test performed at [facility], [address] [place] [address]. CLIA Number: [id number] Interpretation performed by Nayely Day MD, PhD Performed By: #### N TRK #### [facility] CLIA [id number] [address] [place] [address] [place] PT panel Coag (PPP)on 2024 INR Coag (PPP) [Relative time] 1.1 {INR} 0.9 - 1.3 [facility] Comment on above: Vitamin K Antagonist (VKA) Therapeutic Range: INR 2 to 3 (Target INR of 2.5) Note: For patients treated with VKA drugs, such as warfarin, the [employer] 2012 Guideline recommends [...] PATINO, et al. Chest 2012, 141:7S-47S Taj RA, et al. [facility] 2017, 70: 252-289 Interpretation and review of laboratory results Normal [facility] PT Coag (PPP) [Time] 12 s [facility] INR Coag (PPP) [Relative time] 1.1 {INR} Normal 0.9-1.3 [facility] Comment on above: Order Comment: Tata jean Type: BLOOD SPECIMEN Ordering Facility: [facility] Address: [address] [place] [address] Result Comment: Liya min K Antagonist (VKA) Therapeutic Range: INR 2 to 3 (Target INR of 2.5) Note: For patients treated with VKA drugs, such as warfarin, the [employer] 2012 Guideline recommends [...] GH, et al. Chest 2012, 141:7S-47S Taj MENON et al. [facility] 2017, 70: 252-289 Performed By: #### 3 4528-0 #### [facility] CLIA [id number] [address] [place] PT Coag (PPP) [Time] 12.0 s Normal 9.7-13.0 [facility] Comment on above: Order Comment: Speci miranda Type: BLOOD SPECIMEN Ordering Facility: [facility] Address: [address] [place] [address] Performed By: #### 3 4528-0 #### [facility] CLIA [id number] [address] OF [facility] Pathology biopsy report Jhonatan (Tiss)on 08-21-2024 AP DISCLAIMER Normal [facility] Comment on above: Order Comment: Speci men Type: TISSUE SPECIMEN Ordering Facility: [facility] Address: [address] [place] [address] Result Comment: Laurita mckee Developed Test (LDT) Disclaimer: Performance characteristics of immunohistochemical, immunofluorescent, and chromogenic in-situ hybridization tests have been determined by the performing laboratory within [facility]'s [facility] Pathology and Laboratory Medicine Department ([facility], [facility], [facility], [facility], [facility], [facility], or [facility]) in a manner consistent with CLIA requirements. [...] #### 6 6121-5 #### [facility] CLIA [id number] [address] [place] [address] [place] [facility] CLIA [id number] [address] [place] [address] [place] CASE REPORT Normal [facility] Comment on above: Order Comment: Speci miranda Type: TISSUE SPECIMEN Ordering Facility: [facility] Address: [address] [place] [address] Result Comment: [facility] Pathology Report Case: [id number] Authorizing Provider: Marco Gay MD, MD Collected: 08/21/2024 02:43 PM Ordering Location: [facility] Radiology Received: 08/21/2024 02:58 PM Pathologist: Eliseo Esquivel MD Specimen: Soft Tissue, Mass, Biopsy Performed By: #### 6 6121-5 #### [facility] CLIA [id number] [address] [place] [address], [address] [place] [address] [place] [facility] CLIA [id number] [address] [place] [address] OF [place] CLINICAL HISTORY Lung cancer. Right paraspinal soft tissue mass(FDG avid) in thoracic region Normal [facility] Comment on above: Order Comment: Speci men Type: TISSUE SPECIMEN Ordering Facility: [facility] Address: [address] [id number] Performed By: #### 6 6121-5 #### [facility] CLIA [id number] [address] [place] [address] [address] [place], [place] [address] [place] [facility] CLIA [id number] [address] [address] [place] FINAL DIAGNOSIS Normal [facility] Comment on above: Order Comment: Speci men Type: TISSUE SPECIMEN Ordering Facility: [facility] Address: [address] [place], [place] [address] Result Comment: A. S oft tissue, right paraspinal region, core needle biopsy: - Metastatic squamous cell carcinoma. at 0954 EDT Performed By: #### 6 6121-5 #### [facility] CLIA [id number] [address] [place] [address] 3, [address] [place], [place] [address] [place] [facility] CLIA [id number] [address] [place], [place] [id number] [place] FINAL PERFORMING LAB Normal [facility] Comment on above: Order Comment: Speci men Type: TISSUE SPECIMEN Ordering Facility: [facility] Address: [address] [place], [place] [address] Result Comment: Diag nostic interpretation performed at: [facility], [address] [place] [address], [address], [address] [id number] CLIA# [id number] Concrete Pump Operator Helper: Eliseo Esquivel MD Performed By: #### 6 6121-5 #### [facility] CLIA [id number] [address] [place] [address] 3, [address] [place] [id number] [place] [facility] CLIA [id number] [address] [place] [address] [place] GROSS DESCRIPTION Normal [facility] Comment on above: Order Comment: Speci men Type: TISSUE SPECIMEN Ordering Facility: [facility] Address: [address] [place], [place] [address] Result Comment: A. S oft Tissue, Mass, Biopsy Received in formalin are multiple segments of cylindrical tissue aggregating to 2.2 x 0.1 x 0.1 cm, stein and of a soft and friable consistency. Totally submitted in one cassette. August 22, 2024 12:16 PM Gross examination performed at [facility], [address] [place] [address] Performed By: #### 6 6121-5 #### [facility] CLIA [id number] [address] [place] [address] 3, [address] [place] [address] LAB CLIA [id number] [address] [place] [address] TARGETED ONCOLOGY PANEL NEXT GENERATION SEQUENCING OTHER 08-21-2024 TARGETED ONCOLOGY PANEL NEXT GENERATION SEQUENCING OTHER [facility] Comment on above: Order Comment: Speci men Type: TISSUE SPECIMEN Ordering Facility: [facility] Address: [address] [place] [address] Result Comment: [facility] Targeted Oncology Panel Laboratory Accession Number: [id number] Case #: [id number] Block #: A1 Sample Type: FFPET % Tumor: 40 CASE SUMMARY: TP53 C176Y is detected. *Unless otherwise stated, all assay hotspot regions have been tested (see EVALUATED GENES below) and only positive genes are reported. RESULTS: Single Nucleotide Variants/Indels: TP53\X09\p.Jol218Wyd \X09\NM_000546.5:c.527G>A \X09\38.7% VAF, Depth 1293x, Ex5 Copy Number Gains: None detected RNA Fusions and Aberrant Transcripts: None detected VARIANT INTERPRETATIONS: TP53 p.Ofn263Qpk NM_000546.5:c.527G>A The likely clinically significant C176Y variant in TP53 was detected in this specimen. TP53 encodes for tumor protein p53, a biosecurity officer factor involved in DNA damage pathway, cell cycle arrest and apoptosis (PMID: 98702126). Germline mutations occur in cancer predisposition syndrome and Li-Fraumeni syndrome (PMID: 30640898). Somatic missense and loss of function mutations are common in every tumor type and some impart resistance to chemotherapy (PMID: 9121693). Variants of uncertain significance detected: None detected Regions with coverage <100x: None METHODOLOGY: Extracted nucleic acid from the specimen, both DNA and RNA, were subjected to separate targeted amplification reactions, using AmpliSeq custom primers designed by [employer] ([employer], [place], [place]). Hotspots and selected fusions in gene regions listed below were sequenced using Illumina ([place], [place]) 2x150 paired-end cycle chemistry. A customized [...] T OPTO #### [facility] CLIA [id number] [address] [place] [address] CNOVSPon 08-17-2024 CNOVSP Visit (SP) Office (H EMAWS) REY MEAD ([id number]) 1955 M Date Time Provider Department 08/17/24 11:50 AM VALDEMAR GUTIERREZ During your visit today, we recorded the following information about you: Temperature Pulse Blood pressure Weight 97.3 degrees 94/minute 109/65 83.9 kg Valdemar Gutierrez MD 08/17/2024 1:39 PM Signed (Elements copied [...] SURGICAL HISTORY Procedure Laterality Date BYPASS GRAFT OTHR,KMPQO-EIX-WUC LOBECTOMY, SEGMENT FAMILY HISTORY Problem Relation Age [...] mouth. (Patient not taking: Reported on 04/21/2023) MMHSNGAHHVY-UZKPJKDUB-YHACA TER INHALATION Inhale as instructed. (Patient not taking: Reported on 04/21/2023) ALBU (more content not included)... Normal [facility] [place] 08-17-2024 TAWNY Telephone (JAMES) REY MEAD ([id number]) 1955 M Date Time Provider Department 08/17/24 VALDEMAR GUTIERREZ During your visit today, we recorded the following information about you: Debi Farah 08/17/2024 12:37 PM Signed AVS 08/17 Need biopsy of paraspinal mass leanne at [facility]-SECURE CHAT MESSAGE SENT FOR SCHEDULING PURPOSES Appointment with Dr Gume lan palliative RT to paraspinal mass. Debi Farah 08/17/2024 3:03 PM Signed Lvm for patient to return the call. He is scheduled at [place] for biopsy 08/21 8:00am arrival Need to schedule Appointment with Dr Gume lan palliative RT to paraspinal mass. Elena Chicas 08/18/2024 8:33 AM Signed Relayed message to patient regarding biopsy Scheduled with Dr. Dunaway Allergies As of Date: 08/17/2024 (No Known Allergies) Date Reviewed: 08/17/2024 Reviewed by: Alana Gold LPN - Fully Assessed Reason for Visit: [...] 1 Puff as instructed once daily. - YEZLRYEWUOS-IVCBXDCRA-MXATP TER INHALATION Inhale as instructed. - ALBUTEROL [...] Encounter Status:Closed by ELENA GOLDSMITH on 08/18/24 [facility] [place] 08-10-2024 FLYN Telephone (JAMES) REY MEAD ([id number]) 1955 M Date Time Provider Department 08/10/24 VALDEMAR GUTIERREZ During your visit today, we recorded the following information about you: Debi Farah 08/10/2024 9:15 AM Signed Lvm for patient to return the call. Per Dr. Gutierrez his pet scan results are in so his 08/21 appointment can be changed to 08/11 or when patient is able. Dilia Alvarado 08/10/2024 12:40 PM Signed Patient returned call [...] 1 Puff as instructed once daily. - ORGQAQHZKWW-BWSZAKUDV-SDAWZ TER INHALATION Inhale as instructed. - ALBUTEROL [...] mass [R91.8] 04/02/2023 Encounter Status:Closed by DEBI FARAH on 08/26/24 Normal [facility] Hepatobilliary Img w/Pharm I nton 08-08-2024 Hepatobilliary Img w/Pharm Int Normal [facility] NM PET/CT SKULL-THIGH SUBQon 08-01-2024 NM [...] * Uptake Time: 106 minutes * Radiopharmaceutical: N44-Izumwevjfldnndcqoi (FDG) COMPARISON: PET/CT 02/09/2023 CORRELATION: CT chest [...] changes in the adjacent transverse process/posterior elements. Sock Boarder: AUREA Transcribe Date/Time: Aug 01 2024 9:27P Dictated by : RCIO ROCHA MD This examination was interpreted and the report reviewed and electronically signed by: RICO ROCHA MD on Aug 01 2024 10:50PM EST [id number] Normal [facility] Gastroenterology Visit Repor ton 07-24-2024 Gastroenterology Visit Report Normal [facility] Lipaseon 07-20-2024 Lipase [Catalytic activity/Vol] 34 U/L Normal 13-75 [facility] Comment on above: Result Comment: Bettina kelly note:LIPASE revised reference range effective 22.New Lipase methodology. Expected to produce lower valuesthan the previous assay method.NEW Reference Range: 13 - 75 U/L Performed By: #### L 501.2450 ####[facility] [address] [place], [address] Lipase measurementOrdered By : Latosha Renee on 07-20-2024 Lipase [Catalytic activity/Vol] 34 U/L 13-75 [facility] Comment on above: Please note:LIPASE r evised reference range effective 22. New Lipase methodology. Expected to produce lower values than the previous assay method. NEW Reference Range: 13 - 75 U/L CNOVSPon 07-13-2024 CNOVSP Visit (SP) Office ( EMA) REY MEAD ([id number]) 1955 M Date Time Provider Department 07/13/24 9:40 AM VALDEMAR GUTIERREZ During your visit today, we recorded the following information about you: Temperature Pulse Respiration Blood pressure 97.7 degrees 89/minute 12/minute 103/69 Weight 88 kg Valdemar Gutierrez MD 07/13/2024 10:59 AM Signed (Elements copied [...] SURGICAL HISTORY Procedure Laterality Date BYPASS GRAFT OTHR,GXKTC-CJW-SBP LOBECTOMY, SEGMENT FAMILY HISTORY Problem Relation Age [...] Inhale 1 Puff as instructed once daily. GLANAJFDURR-SEWQNWWLB-WDNKZ TER INHALATION Inhale as instructed. (Patient not [...] FOS ( (more content not included)... Normal [facility] Limitedon 07-07-2024 Abdomen Limited Normal [facility] CT CHEST W IVCONon CT CHEST W IVCON * * *Final Report* * * DATE OF EXAM: Jul 06 2024 9:46AM [facility] 0539 - CT CHEST W IVCON / [...] in the right middle lobe and lingula Sock Boarder: AUREA Transcribe Date/Time: Jul 12 2024 1:10P Dictated by : ROBB KRISHNA MD This examination was interpreted and the report reviewed and electronically signed by: ROBB KRISHNA MD on Jul 12 2024 1:24PM EST [id number] Normal [facility] Creatinine + eGFR Pnl SerPlB ldon 07-06-2024 Creatinine and Glomerular filtration rate.predicted panel (S/P/Bld) 97 mL/min/1.73m??? Normal >=60 [facility] Comment on above: Order Comment: Tata jean Type: BLOOD SPECIMENOrdering Facility: [facility] Address: [address] [place] [address] Result Comment: Alexia mated Glomerular Filtration Rate [...] actual GFR. Performed By: #### 4 5066-8 ####[facility] [id number] [address] [place] Creatinine and Glomerular fi ltration rate.predicted panel (S/P/Bld)on 07-06-2024 Creatinine [Mass/Vol] 0.78 mg/dL Normal 0.73-1.22 [facility] Comment on above: Order Comment: Tata jean Type: BLOOD SPECIMENOrdering Facility: [facility] Address: [address] [id number] Performed By: #### 4 5066-8 ####[facility] [id number] [place] [address] [place] CNPNon 04-22-2025 CNPN Telephone (HEMAWS) REY MEAD ([id number]) 1955 M Date Time Provider Department 07/04/24 VALDEMAR GUTIERREZ During your visit today, we recorded the following information about you: Maite Orellana, MURPHY 07/04/2024 1:[address] order for stat creatinine order for pt , pt appt on 07/06/[address] Shilpi Brooks RN 07/04/2024 2:19 PM Signed Order pended. Keiry Brooks RN Allergies As of Date: 07/04/2024 (No Known Allergies) Date Reviewed: 04/27/2024 Reviewed by: Marina Lane LPN - Fully Assessed Reason for Visit: Orders [681] Primary Visit Diagnosis:Squamous cell carcinoma of left lung (HCC) [C34.92] Order(s):CREATININE BLD [SQCRET] Order #: [id number] FUTURE Prescriptions as of 07/04/2024 - gabapentin (NEURONTIN) 300 mg capsule Take 1 capsule by mouth once daily for 90 days. - VITAMIN B COMPLEX-100 ORAL Take by mouth. - fluticasone/umeclidin/vilan ter (TRELEGY ELLIPTA INHALATION) Inhale 1 Puff as instructed once daily. - PWBYURHNYHD-ILBACGNPB-IKESF TER INHALATION Inhale as instructed. - ALBUTEROL [...] mass [R91.8] 04/02/2023 Encounter Status:Closed by SHILPI BROOKS on 07/04/24 Normal [facility] LabMnrp Mis.on 06-27-2024 [facility]. COMMENT Normal . [facility] Comment on above: Order Comment: [id number] 8TIGER RMT GLORIA AUTO ANTIBODY Result Comment: Test Ordered: [id number] GLORIA-65 AutoantibodyGAD-65 <5.0 U/mL Reference Range: 0.0-5.0Performed at: [address] [id number] Director: Jessee Abel MD, Phone: [phone] at: CB - [facility] [address] [id number] Director: Maico Ascencio PhD, Phone: [phone] Performed By: #### L 500.4050, L501.5200, L3877.3306, L3410.9998 ####[facility] [address] [place], [place], [address] XR CHEST 2V FRONTAL/LATon XR CHEST 2V [...] left upper lobe with subjacent pleural thickening. Sock Boarder: AUREA Transcribe Date/Time: Jun 27 2024 12:56P Dictated by : GARY WALKER MD This examination was interpreted and the report reviewed and electronically signed by: GARY WALKER MD on Jun 27 2024 12:58PM EST [id number] Normal [facility] XR Chest PA and Lateralon IMPRESSION: Stable radiographic appearance of the chest with stable consolidative/nodular opacity in the left upper lobe with subjacent pleural thickening. Sock Boarder: PSCB Transcribe Date/Time: Jun 27 2024 12:56P Dictated by : GARY WALKER MD This examination was interpreted and the report reviewed and electronically signed by: GARY WALKER MD on Jun 27 2024 12:58PM [facility] DIVISION OF RADIOLOGY * * *Final Report* [...] ribs. Degenerative changes DIVISION OF RADIOLOGY Provider, [facility]/27/[facility]24 * * *Final Report* * [...] left upper lobe with subjacent pleural thickening. Sock Boarder: PSCB Transcribe Date/Time: Jun 27 2024 12:56P Dictated by : GARY WALKER MD This examination was interpreted and the report reviewed and electronically signed by: GARY WALKER MD on Jun 27 2024 12:58PM EST [facility] Radiology Study observation (narrative) [facility] XR Chest PA and LateralOrder ed By: [facility]cf Provider on 06-27-2024 [facility] Gastroenterology Visit Repor ton 06-26-2024 Gastroenterology Visit Report Normal [facility] C-Peptideon 06-24-2024 C PEPTIDE 4.9 ng/mL High 1.1-4.4 [facility] Comment on above: Result Comment: C-Pe ptide reference interval is for fasting patients.Performed at: [employer] [place], [place] [id number] Director: Maico Ascencio PhD, Phone: [phone] Performed By: #### L 500.4050, L501.5200, L3100.7750, L3410.9998 ####[facility] [address] [place], [place], [id number] Anion gap in Serum or Plasma Ordered By: Latosha Renee on 06-23-2024 Anion gap [Moles/Vol] 16 mmol/L High 5-15 [facility] BUN/creatinine ratioOrdered By: Latosha Renee on 06-23-2024 Urea nitrogen/Creatinine [Mass ratio] 21.7 mg/mg High 10-20 [facility] Bilirubin, totalOrdered By: Latosha Renee on 06-23-2024 Bilirubin [Mass/Vol] 0.47 mg/dL 0.00-1.30 [facility] C-peptideOrdered By: Latosha Renee on 06-23-2024 C-Peptide 4.9 ng/mL High 1.1-4.4 [facility] Comment on above: C-Peptide reference interval is for fasting patients.Performed at: [employer] [place], [place] [id number] Director: Maico Ascencio PhD, Phone: [phone] Carbon dioxide, total [Moles /volume] in Central venous bloodOrdered By: Latoshaalexandria Renee on 06-23-2024 CO2 [Moles/Vol] 21.4 mmol/L 21.0-32.0 [facility] Chloride assayOrdered By: Vishnu salcido Víctor on 06-23-2024 Chloride [Moles/Vol] 92 mmol/L Low 98-108 [facility] Comprehensive Metabolic Prof ilon 06-23-2024 Albumin [Mass/Vol] 3.7 g/dL Normal 3.4-4.8 [facility] Comment on above: Performed By: #### L 500.4050, L501.5200, L3100.7750, L3410.9998 ####[facility] [address] [place], [address] Albumin/Globulin [Mass ratio] 1.0 {ratio} Normal 0.9-2.4 [facility] Comment on above: Performed By: #### L 500.4050, L501.5200, L3100.7750, L3410.9998 ####[facility] [address] [place], [address] ALK PHOS 74 U/L Normal 40-129 [facility] Comment on above: Performed By: #### L 500.4050, L501.5200, L3100.7750, L3410.9998 ####[facility] [address] [place], [address] ALT [Catalytic activity/Vol] 17 U/L Normal <=46 [facility] Comment on above: Performed By: #### L 500.4050, L501.5200, L3100.7750, L3410.9998 ####[facility] [address] [place], [address] AST [Catalytic activity/Vol] 11 U/L Normal <=37 [facility] Comment on above: Performed By: #### L 500.4050, L501.5200, L3100.7750, L3410.9998 ####[facility] [address] [place], [address] Bilirubin [Mass/Vol] 0.47 mg/dL Normal 0.00-1.30 [facility] Comment on above: Performed By: #### L 500.4050, L501.5200, L3100.7750, L3410.9998 ####[facility] [address] [place], [address] BUN/CRE 21.7 RATIO High 10-20 [facility] Comment on above: Performed By: #### L 500.4050, L501.5200, L3100.7750, L3410.9998 ####[facility] [address] [place], [address] Calcium [Mass/Vol] 9.8 mg/dL Normal 7.6-11.0 [facility] Comment on above: Performed By: #### L 500.4050, L501.5200, L3100.7750, L3410.9998 ####[facility] [address] [place], [address] Chloride [Moles/Vol] 92 mmol/L Low 98-108 [facility] Comment on above: Performed By: #### L 500.4050, L501.5200, L3100.7750, L3410.9998 ####[facility] [address] [place], [address] CO2 [Moles/Vol] 21.4 mmol/L Normal 21.0-32.0 [facility] Comment on above: Performed By: #### L 500.4050, L501.5200, L3100.7750, L3410.9998 ####[facility] [address] [place], [address] Creatinine [Mass/Vol] 0.96 mg/dL Normal 0.70-1.20 [facility] Comment on above: Performed By: #### L 500.4050, L501.5200, L3100.7750, L3410.9998 ####[facility] [address] [place], [address] GAP 16 High 5-15 [facility] Comment on above: Performed By: #### L 500.4050, L501.5200, L3100.7750, L3410.9998 ####[facility] [address] [place], [address] GFR/1.73 sq M.predicted among non-blacks MDRD (S/P/Bld) [Vol rate/Area] 87 mL/min/{1.73_m2} Normal >60 [facility] Comment on above: Result Comment: mL/m in/1.73m2 CKD-EPI Creatinine Equation (2020) Performed By: #### L 500.4050, L501.5200, L3100.7750, L3410.9998 ####[facility] [address] [place], [address] Globulin (S) [Mass/Vol] 3.8 g/dL Normal 2.2-4.2 [facility] Comment on above: Performed By: #### L 500.4050, L501.5200, L3100.7750, L3410.9998 ####[facility] [address] [place], [address] Glucose [Mass/Vol] 304 mg/dL High 70-99 [facility] Comment on above: Performed By: #### L 500.4050, L501.5200, L3100.7750, L3410.9998 ####[facility] [address] [place], [address] Potassium [Moles/Vol] 4.3 mmol/L Normal 3.3-5.1 [facility] Comment on above: Performed By: #### L 500.4050, L501.5200, L3100.7750, L3410.9998 ####[facility] [address] [place], [address] Sodium [Moles/Vol] 129 mmol/L Low 133-145 [facility] Comment on above: Performed By: #### L 500.4050, L501.5200, L3100.7750, L3410.9998 ####[facility] [address] [place], [address] T PROT 7.5 g/dL Normal 5.9-8.4 [facility] Comment on above: Performed By: #### L 500.4050, L501.5200, L3100.7750, L3410.9998 ####[facility] [address] [place], [address] Urea nitrogen [Mass/Vol] 21 mg/dL High 4-19 [facility] Comment on above: Performed By: #### L 500.4050, L501.5200, L3100.7750, L3410.9998 ####[facility] [address] [place], [address] GFR/1.73 sq M.predicted ana g non-blacks MDRD (S/P/Bld) [Vol rate/Area]Ordered By: Latosha Renee on 06-23-2024 Estimated GFR (MDRD) Non-Af Amer 87 >60 [facility] Comment on above: mL/min/1.73m2 CKD-EP I Creatinine Equation (2020) Glomerular filtration rate ( GFR) estimation/1.73 sq m using serum, plasma, or whole bOrdered By: Latosha Renee on 06-23-2024 GFR/1.73 sq M.predicted among non-blacks MDRD (S/P/Bld) [Vol rate/Area] 87 mL/min/{1.73_m2} >60 [facility] Comment on above: mL/min/1.73m2 CKD-EP I Creatinine Equation (2020) Laboratory - Chemistry and C hemistry - challengeOrdered By: Latosha Renee on 06-23-2024 AST [Catalytic activity/Vol] 11 U/L <38 [facility] Magnesiumon 06-23-2024 Magnesium [Mass/Vol] 1.9 mg/dL Normal 1.5-2.2 [facility] Comment on above: Performed By: #### L 500.4050, L501.5200, L3100.7750, L3410.9998 ####[facility] [address] [place], [place], [address] Magnesium (Unsp spec) [Mass/ Vol]Ordered By: Latosha Renee on 06-23-2024 Magnesium [Mass/Vol] 1.9 mg/dL 1.5-2.2 [facility] Magnesium measurement (mass/ volume)Ordered By: Latosha Renee on 06-23-2024 Magnesium (Unsp spec) [Mass/Vol] 1.9 mg/dL 1.5-2.2 [facility] No Panel InformationOrdered By: Latosha Renee on 06-23-2024 Miscellaneous Test COMMENT . [facility] Comment on above: Test Ordered: [id number] GLORIA-65 AutoantibodyGAD-65 <5.0 U/mL BN Reference Range: 0.0-5.0Performed at: BN - [facility] [address] [id number] Director: Jessee Abel MD, Phone: [phone] at: - [facility] [address] [id number] Director: Maico Ascencio PhD, Phone: [phone] 11 U/L <38 [facility] COMMENT . [facility] Potassium (Unsp spec) [Mass/ Vol]Ordered By: Latosha Renee on 06-23-2024 Potassium [Moles/Vol] 4.3 mmol/L 3.3-5.1 [facility] Potassium measurement (mass/ volume)Ordered By: Latosha Renee on 06-23-2024 Potassium (Unsp spec) [Mass/Vol] 4.3 mmol/L 3.3-5.1 [facility] Serum creatinine measurement (mass/volume)Ordered By: Latosha Renee on 06-23-2024 Creatinine [Mass/Vol] 0.96 mg/dL 0.70-1.20 [facility] Serum globulin measurementOr dered By: Latosha Renee on 06-23-2024 Globulin (S) [Mass/Vol] 3.8 g/dL 2.2-4.2 [facility] Serum glucose measurement (m ass/volume)Ordered By: Latosha Renee on 06-23-2024 Glucose [Mass/Vol] 304 mg/dL High 70-99 [facility] Serum or plasma alanine delaney otransferase (ALT) measurementOrdered By: Latosha Renee on 06-23-2024 ALT [Catalytic activity/Vol] 17 U/L <47 [facility] Serum or plasma albumin alfreda urement (mass/volume)Ordered By: Latosha Renee on 06-23-2024 Albumin [Mass/Vol] 3.7 g/dL 3.4-4.8 [facility] Serum or plasma albumin/glob ulin mass ratioOrdered By: Latosha Renee on 06-23-2024 Albumin/Globulin [Mass ratio] 1.0 {ratio} 0.9-2.4 [facility] Serum or plasma alkaline debby sphatase measurementOrdered By: Latosha Renee on 06-23-2024 ALP [Catalytic activity/Vol] 74 U/L 40-129 [facility] Serum or plasma calcium alfreda urement (mass/volume)Ordered By: Latosha Renee on 06-23-2024 Calcium [Mass/Vol] 9.8 mg/dL 7.6-11.0 [facility] Serum or plasma urea nitroge n measurement (mass/volume)Ordered By: Latosha Renee on 06-23-2024 Urea nitrogen [Mass/Vol] 21 mg/dL High 4-19 [facility] Sodium levelOrdered By: Sebastián Renee on 06-23-2024 Sodium [Moles/Vol] 129 mmol/L Low 133-145 [facility] Total proteinOrdered By: Gerald Renee on 06-23-2024 Protein [Mass/Vol] 7.5 g/dL 5.9-8.4 [facility] Misc.on 06-20-2024 [facility] Misc. COMMENT Normal . [facility] Comment on above: Order Comment: [id number] 5PBG URINE/PROTECT FROM LIGHT Result Comment: Test Ordered: [id number] Porphobilinogen, Qn, Random UrTest(s) 329775-Fompxdeavotfuis, Qn, Random Urwas developed and its performance characteristicsdetermined by [facility]. It has not been cleared or approvedby the Food and Drug Administration.Porphobilinogen, Qn, Random Ur 0.6 mg/L BN Reference Range: Not Estab.Creatinine, U 55.7 mg/dL BN Reference Range: Not Estab.PBG/Creatinine Ratio 1.1 BN Units of Measure: mg/g Creat. Reference Range: 0.2-2.2Performed at: [facility] [address] [id number] Director: Jessee Abel MD, Phone: [phone] at: [address] [id number] Director: Maico Ascencio PhD, Phone: [phone] Performed By: #### L 3410.9998 ####[facility] [address] [place], [place], [id number] ARTIE Comprehensive Panelon ARTIE TABLE Comment Normal . [facility] Comment on above: Result Comment: Auto antibody Disease Association -------- Condition Frequency ---------Antinuclear Antibody, SLE, mixed connectiveDirect (ARTIE-D) tissue diseases ---------dsDNA SLE 40 - 60% ---------Chromatin Drug induced SLE 90% SLE 48 - 97% ---------SSA (Ro) SLE 25 - 35% Sjogren's Syndrome 40 - 70% Lupus 100% ---------SSB (La) SLE 10% Sjogren's Syndrome 30% ---------Sm (anti-Ferreira) SLE 15 - 30% ---------LIVE IN HOUSEKEEPER Mixed Connective Tissue Disease 95%(U1 nRNP, SLE 30 - 50%anti-ribonucleoprotein) Polymyositis and/or Dermatomyositis 20% ---------Scl-70 (antiDNA Scleroderma (diffuse) 20 - 35%topoisomerase) Crest 13% ---------Alethea-1 Polymyositis and/or Dermatomyositis 20 - 40% ---------Centromere B Scleroderma - Crest variant 80% AMENDED REPORT 06/16/241307 COMMENT previously reported as: Test not performed Performed By: #### L 500.4050, L101.9900, L501.6710, L3100.5440, L100.0100, L3100.5475 ####[facility] [address] [facility]. [place], [place], [id number] ANTI-CENT B AB <0.2 Normal 0.0-0.9 [facility] Comment on above: Result Comment: AMENDED REPORT 06/16/241307 ANTI-CENT B previously reported as: Test not performed Performed By: #### L 500.4050, L101.9900, L501.6710, L3100.5440, L100.0100, L3100.5475 ####[facility] [address] [facility]. [place], [place], [id number] ANTI-DNA (DS)AB 2 IU/mL Normal 0-9 [facility] Comment on above: Result Comment: Nega tive <5 Equivocal 5 - 9 Positive >9 AMENDED REPORT 06/16/241307 dsDNA AB previously reported as: Test not performed Performed By: #### L 500.4050, L101.9900, L501.6710, L3100.5440, L100.0100, L3100.5475 ####[facility] [address] [facility] [place], [address] ANTI-ALETHEA-1 <0.2 Normal 0.0-0.9 [facility] Comment on above: Result Comment: AMENDED REPORT 06/16/241307 ANTI-ALETHEA previously reported as: Test not performed Performed By: #### L 500.4050, L101.9900, L501.6710, L3100.5440, L100.0100, L3100.5475 ####[facility] [address] [place], [address] ANTI-SS-A < 0.2 Normal 0.0-0.9 [facility] Comment on above: Result Comment: AMENDED REPORT 06/16/241307 Anti-SS-A previously reported as: Test not performed Performed By: #### L 500.4050, L101.9900, L501.6710, L3100.5440, L100.0100, L3100.5475 ####[facility] [address] [place], [place], [id number] ANTI-SS-B < 0.2 Normal 0.0-0.9 [facility] Comment on above: Result Comment: AMENDED REPORT 06/16/241307 Anti-SS-B previously reported as: Test not performed Performed By: #### L 500.4050, L101.9900, L501.6710, L3100.5440, L100.0100, L3100.5475 ####[facility] [address] [place], [address] ANTICHROMATIN <0.2 Normal 0.0-0.9 [facility] Comment on above: Result Comment: AMENDED REPORT 06/16/241307 ANTICHROMATIN previously reported as: Test not performed Performed By: #### L 500.4050, L101.9900, L501.6710, L3100.5440, L100.0100, L3100.5475 ####[facility] [address] [place], [address] ANTISCLERODERM <0.2 Normal 0.0-0.9 [facility] Comment on above: Result Comment: AMENDED REPORT 06/16/241307 ANTISCLER previously reported as: Test not performed Performed By: #### L 500.4050, L101.9900, L501.6710, L3100.5440, L100.0100, L3100.5475 ####[facility] [address] [place], [address] LIVE IN HOUSEKEEPER Ab <0.2 Normal 0.0-0.9 [facility] Comment on above: Result Comment: AMENDED REPORT 06/16/241307 LIVE IN HOUSEKEEPER Ab previously reported as: Test not performed Performed By: #### L 500.4050, L101.9900, L501.6710, L3100.5440, L100.0100, L3100.5475 ####[facility] [address] [place], [address] FERREIRA Ab <0.2 Normal 0.0-0.9 [facility] Comment on above: Result Comment: AMENDED REPORT 06/16/241307 FERREIRA Ab previously reported as: Test not performed Performed By: #### L 500.4050, L101.9900, L501.6710, L3100.5440, L100.0100, L3100.5475 ####[facility] [address] [facility] [place], [address] ANTINUCLEAR ANTIBODIES [facility] Ton 06-16-2024 ARTIE,DIRECT Negative Normal Negative [facility] Comment on above: Result Comment: Perf ormed at: [facility] [address] [id number] Director: Maico Ascencio PhD, Phone: [phone] Performed By: #### L 500.4050, L101.9900, L501.6710, L3100.5440, L100.0100, L3100.5475 ####[facility] [address] [place], [place], [id number] [facility] Misc.on 06-16-2024 [facility] Misc. COMMENT Normal . [facility] Comment on above: Order Comment: [id number] 0PORPHYRINS URINE/PROTECTFROMLI Result Comment: Perf ormed at: [facility] [address] [id number] Director: Maico Ascencio PhD, Phone: [phone] Performed By: #### L 3410.9998 ####[facility] [address] [place], [address] ARTIE serumOrdered By: Angelica Rodriguez on 06-14-2024 Anti-Nuclear Antibody Screen Negative Negative [facility] Comment on above: Performed at: [employer] [facility] [address] [id number] Director: Maico Ascencio PhD, Phone: [phone] Absolute lymphocyte countOrd ered By: Angelica Rodriguez on 06-14-2024 Lymphocytes Auto (Unsp spec) [#/Vol] 1.19 10*3/uL 0.83-4.51 [facility] Absolute neutrophil countOrd ered By: Angelica Rodriguez on 06-14-2024 Neutrophils (Bld) [#/Vol] 12.3 10*3/uL High 2.0-7.7 [facility] Anion gap in Serum or Plasma Ordered By: Angelica Rodriguez on 06-14-2024 Anion gap [Moles/Vol] 18 mmol/L High 5-15 [facility] Automated lymphocyte count a s percentage of total leukocytesOrdered By: Angelica Rodriguez on 06-14-2024 Lymphocytes/100 WBC Auto (Unsp spec) 8.4 % Low 19-41 [facility] BUN/creatinine ratioOrdered By: Angelica Rodriguez on 06-14-2024 Urea nitrogen/Creatinine [Mass ratio] 24.2 mg/mg High 10-20 [facility] Basophil percentageOrdered B y: Angelica Rodriguez on 06-14-2024 Basophils/100 WBC (Bld) 0.1 % 0-1 [facility] Bilirubin, totalOrdered By: Angelica Rodriguez on 06-14-2024 Bilirubin [Mass/Vol] 0.25 mg/dL 0.00-1.30 [facility] CBC W/Diff, Automatedon Absolute Lymph 1.19 X10 3/uL Normal 0.83-4.51 [facility] Comment on above: Performed By: #### L 500.4050, L101.9900, L501.6710, L3100.5440, L100.0100, L3100.5475 ####[facility] [address] [place], [address] Absolute Neut 12.3 X10 3/uL High 2.0-7.7 [facility] Comment on above: Performed By: #### L 500.4050, L101.9900, L501.6710, L3100.5440, L100.0100, L3100.5475 ####[facility] [address] [place], [address] Basophils/100 WBC (Bld) 0.1 % Normal 0-1 [facility] Comment on above: Performed By: #### L 500.4050, L101.9900, L501.6710, L3100.5440, L100.0100, L3100.5475 ####[facility] [address] [place], [address] Eosinophils/100 WBC (Bld) 0.1 % Normal 0-5 [facility] Comment on above: Performed By: #### L 500.4050, L101.9900, L501.6710, L3100.5440, L100.0100, L3100.5475 ####[facility] [address] [place], [address] Erythrocyte distribution width (RBC) [Ratio] 16.5 % High 11.6-14.6 [facility] Comment on above: Performed By: #### L 500.4050, L101.9900, L501.6710, L3100.5440, L100.0100, L3100.5475 ####[facility] [address] [place], [address] Hematocrit (Bld) [Volume fraction] 37.0 % Low 40-54 [facility] Comment on above: Performed By: #### L 500.4050, L101.9900, L501.6710, L3100.5440, L100.0100, L3100.5475 ####[facility] [address] [place], [address] Hemoglobin (Bld) [Mass/Vol] 11.9 g/dL Low 13.0-16.5 [facility] Comment on above: Performed By: #### L 500.4050, L101.9900, L501.6710, L3100.5440, L100.0100, L3100.5475 ####[facility] [address] [place], [address] IG% 1.200 High 0.0-0.9 [facility] Comment on above: Result Comment: IG% - Immature Granulocytes (promyelocytes, myelocytes andmetamyelocytes) > 1% indicates that a LEFT SHIFT is Present. Performed By: #### L 500.4050, L101.9900, L501.6710, L3100.5440, L100.0100, L3100.5475 ####[facility] [address] [place], [address] Lymphocytes/100 WBC (Bld) 8.4 % Low 19-41 [facility] Comment on above: Performed By: #### L 500.4050, L101.9900, L501.6710, L3100.5440, L100.0100, L3100.5475 ####[facility] [address] [place], [address] MCH (RBC) [Entitic mass] 27.9 pg Normal 27.0-32.0 [facility] Comment on above: Performed By: #### L 500.4050, L101.9900, L501.6710, L3100.5440, L100.0100, L3100.5475 ####[facility] [address] [place], [address] MCHC (RBC) [Mass/Vol] 32.2 g/dL Normal 32-36 [facility] Comment on above: Performed By: #### L 500.4050, L101.9900, L501.6710, L3100.5440, L100.0100, L3100.5475 ####[facility] [address] [place], [address] MCV (RBC) [Entitic vol] 86.9 fL Normal 80-94 [facility] Comment on above: Performed By: #### L 500.4050, L101.9900, L501.6710, L3100.5440, L100.0100, L3100.5475 ####[facility] [address] [place], [address] Monocytes/100 WBC (Bld) 3.6 % Normal 0-10 [facility] Comment on above: Performed By: #### L 500.4050, L101.9900, L501.6710, L3100.5440, L100.0100, L3100.5475 ####[facility] [address] [place], [address] Neutrophils/100 WBC (Bld) 86.6 % High 47-70 [facility] Comment on above: Performed By: #### L 500.4050, L101.9900, L501.6710, L3100.5440, L100.0100, L3100.5475 ####[facility] [address] [place], [address] Nucleated RBC (Bld) [#/Vol] 0 10*3/uL Normal 0-5 [facility] Comment on above: Performed By: #### L 500.4050, L101.9900, L501.6710, L3100.5440, L100.0100, L3100.5475 ####[facility] [address] [place], [address] Platelet mean volume (Bld) [Entitic vol] 9.9 fL Normal 6.2-12.0 [facility] Comment on above: Performed By: #### L 500.4050, L101.9900, L501.6710, L3100.5440, L100.0100, L3100.5475 ####[facility] [address] [place], [address] Platelets (Bld) [#/Vol] 250 10*3/uL Normal 150-450 [facility] Comment on above: Performed By: #### L 500.4050, L101.9900, L501.6710, L3100.5440, L100.0100, L3100.5475 ####[facility] [address] [place], [address] RBC (Bld) [#/Vol] 4.26 10*6/uL Low 4.6-6.2 [facility] Comment on above: Performed By: #### L 500.4050, L101.9900, L501.6710, L3100.5440, L100.0100, L3100.5475 ####[facility] [address] [place], [address] RDW SD 51.6 fl High 35.1-43.9 [facility] Comment on above: Performed By: #### L 500.4050, L101.9900, L501.6710, L3100.5440, L100.0100, L3100.5475 ####[facility] [address] [place], [address] WBC (Bld) [#/Vol] 14.2 10*3/uL High 4.4-11.0 [facility] Comment on above: Performed By: #### L 500.4050, L101.9900, L501.6710, L3100.5440, L100.0100, L3100.5475 ####[facility] [address] [place], [address] CRPon 06-14-2024 C-REACTIVE PROT 33.80 mg/L High 0.0-3.0 [facility] Comment on above: Performed By: #### L 500.4050, L101.9900, L501.6710, L3100.5440, L100.0100, L3100.5475 ####[facility] [address] [place], [address] CRP [Mass/Vol]Ordered By: Wilner Rodriguez on 06-14-2024 C-Reactive Protein Extended Range 33.80 mg/L High 0.0-3.0 [facility] Carbon dioxide, total [Moles /volume] in Central venous bloodOrdered By: Angelica Rodriguez on 06-14-2024 CO2 [Moles/Vol] 23.4 mmol/L 21.0-32.0 [facility] Centromere B antibody assayO rdered By: Angelica Rodriguez on 06-14-2024 Centromere B Antibody <0.2 AI 0.0-0.9 [facility] Comment on above: Previous reported re sult: TNP AIEdited by: ESTEVAN on 06/16/24:1308 AMENDED REPORT 06/16/24 1308 ANTI-CENT B previously reported as: Test not performed Chloride assayOrdered By: Wilner Rodriguez on 06-14-2024 Chloride [Moles/Vol] 92 mmol/L Low 98-108 [facility] Chromatin antibody assayOrde red By: Angelica Rodriguez on 06-14-2024 Antichromatin Antibodies <0.2 AI 0.0-0.9 [facility] Comment on above: Previous reported re sult: TNP AIEdited by: ESTEVAN on 06/16/24:1308 AMENDED REPORT 06/16/24 1308 ANTICHROMATIN previously reported as: Test not performed Comprehensive Metabolic Prof anueliqra 06-14-2024 Albumin [Mass/Vol] 4.0 g/dL Normal 3.4-4.8 [facility] Comment on above: Performed By: #### L 500.4050, L101.9900, L501.6710, L3100.5440, L100.0100, L3100.5475 ####[facility] [address] [place], [address] Albumin/Globulin [Mass ratio] 1.0 {ratio} Normal 0.9-2.4 [facility] Comment on above: Performed By: #### L 500.4050, L101.9900, L501.6710, L3100.5440, L100.0100, L3100.5475 ####[facility] [address] [place], [address] ALK PHOS 84 U/L Normal 40-129 [facility] Comment on above: Performed By: #### L 500.4050, L101.9900, L501.6710, L3100.5440, L100.0100, L3100.5475 ####[facility] [address] [place], [address] ALT [Catalytic activity/Vol] 18 U/L Normal <=46 [facility] Comment on above: Performed By: #### L 500.4050, L101.9900, L501.6710, L3100.5440, L100.0100, L3100.5475 ####[facility] [address] [place], [address] AST [Catalytic activity/Vol] 12 U/L Normal <=37 [facility] Comment on above: Performed By: #### L 500.4050, L101.9900, L501.6710, L3100.5440, L100.0100, L3100.5475 ####[facility] [address] [place], [address] Bilirubin [Mass/Vol] 0.25 mg/dL Normal 0.00-1.30 [facility] Comment on above: Performed By: #### L 500.4050, L101.9900, L501.6710, L3100.5440, L100.0100, L3100.5475 ####[facility] [address] [place], [address] BUN/CRE 24.2 RATIO High 10-20 [facility] Comment on above: Performed By: #### L 500.4050, L101.9900, L501.6710, L3100.5440, L100.0100, L3100.5475 ####[facility] [address] [place], [address] Calcium [Mass/Vol] 10.1 mg/dL Normal 7.6-11.0 [facility] Comment on above: Performed By: #### L 500.4050, L101.9900, L501.6710, L3100.5440, L100.0100, L3100.5475 ####[facility] [address] [place], [address] Chloride [Moles/Vol] 92 mmol/L Low 98-108 [facility] Comment on above: Performed By: #### L 500.4050, L101.9900, L501.6710, L3100.5440, L100.0100, L3100.5475 ####[facility] [address] [place], [address] CO2 [Moles/Vol] 23.4 mmol/L Normal 21.0-32.0 [facility] Comment on above: Performed By: #### L 500.4050, L101.9900, L501.6710, L3100.5440, L100.0100, L3100.5475 ####[facility] [address] [place], [address] Creatinine [Mass/Vol] 0.98 mg/dL Normal 0.70-1.20 [facility] Comment on above: Performed By: #### L 500.4050, L101.9900, L501.6710, L3100.5440, L100.0100, L3100.5475 ####[facility] [address] [place], [address] GAP 18 High 5-15 [facility] Comment on above: Performed By: #### L 500.4050, L101.9900, L501.6710, L3100.5440, L100.0100, L3100.5475 ####[facility] [address] [place], [address] GFR/1.73 sq M.predicted among non-blacks MDRD (S/P/Bld) [Vol rate/Area] 84 mL/min/{1.73_m2} Normal >60 [facility] Comment on above: Result Comment: mL/m in/1.73m2 CKD-EPI Creatinine Equation (2020) Performed By: #### L 500.4050, L101.9900, L501.6710, L3100.5440, L100.0100, L3100.5475 ####[facility] [address] [place], [address] Globulin (S) [Mass/Vol] 4.0 g/dL Normal 2.2-4.2 [facility] Comment on above: Performed By: #### L 500.4050, L101.9900, L501.6710, L3100.5440, L100.0100, L3100.5475 ####[facility] [address] [place], [address] Glucose [Mass/Vol] 360 mg/dL High 70-99 [facility] Comment on above: Performed By: #### L 500.4050, L101.9900, L501.6710, L3100.5440, L100.0100, L3100.5475 ####[facility] [address] [place], [address] Potassium [Moles/Vol] 4.5 mmol/L Normal 3.3-5.1 [facility] Comment on above: Performed By: #### L 500.4050, L101.9900, L501.6710, L3100.5440, L100.0100, L3100.5475 ####[facility] [address] [place], [address] Sodium [Moles/Vol] 133 mmol/L Normal 133-145 [facility] Comment on above: Performed By: #### L 500.4050, L101.9900, L501.6710, L3100.5440, L100.0100, L3100.5475 ####[facility] [address] [place], [address] T PROT 7.9 g/dL Normal 5.9-8.4 [facility] Comment on above: Performed By: #### L 500.4050, L101.9900, L501.6710, L3100.5440, L100.0100, L3100.5475 ####[facility] [address] [place], [address] Urea nitrogen [Mass/Vol] 24 mg/dL High 4-19 [facility] Comment on above: Performed By: #### L 500.4050, L101.9900, L501.6710, L3100.5440, L100.0100, L3100.5475 ####[facility] [address] [place], [address] DNA double strand Ab Qn (S)O rdered By: Angelica Rodriguez on 06-14-2024 Anti-Double Strand DNA Antibody 2 IU/mL 0-9 [facility] Comment on above: Negative <5 Equivoca l 5 - 9 Positive >9Previous reported result: TNP IU/mLEdited by: ESTEVAN on 06/16/24:1308 AMENDED REPORT 06/16/24 1308 dsDNA AB previously reported as: Test not performed Eosinophil percentageOrdered By: Angelica Rodriguez on 06-14-2024 Eosinophils/100 WBC (Bld) 0.1 % 0-5 [facility] Erythrocyte Sed Rateon 06-14 SED RATE 34 mm/hr High 0-20 [facility] Comment on above: Performed By: #### L 500.4050, L101.9900, L501.6710, L3100.5440, L100.0100, L3100.5475 ####[facility] [address] [place], [address] Erythrocyte distribution wid th (RBC) [Ratio]Ordered By: Angelica Rodriguez on 06-14-2024 Erythrocyte distribution width (RBC) [Entitic vol] 51.6 fL High 35.1-43.9 [facility] Erythrocyte distribution wid th ratioOrdered By: Angelica Rodriguez on 06-14-2024 Erythrocyte distribution width (RBC) [Ratio] 16.5 % High 11.6-14.6 [facility] Erythrocyte distribution wid th standard deviationOrdered By: Angelica Rodriguez on 06-14-2024 Erythrocyte distribution width (RBC) [Ratio] 51.6 fl High 35.1-43.9 [facility] Erythrocyte sedimentation ra teOrdered By: Angelica Rodriguez on 06-14-2024 ESR (Bld) [Velocity] 34 mm/h High 0-20 [facility] GFR/1.73 sq M.predicted ana g non-blacks MDRD (S/P/Bld) [Vol rate/Area]Ordered By: Angelica Rodriguez on 06-14-2024 Estimated GFR (MDRD) Non-Af Amer 84 >60 [facility] Comment on above: mL/min/1.73m2 CKD-EP I Creatinine Equation (2020) Glomerular filtration rate ( GFR) estimation/1.73 sq m using serum, plasma, or whole bOrdered By: Angelica Rodriguez on 06-14-2024 GFR/1.73 sq M.predicted among non-blacks MDRD (S/P/Bld) [Vol rate/Area] 84 mL/min/{1.73_m2} >60 [facility] Comment on above: mL/min/1.73m2 CKD-EP I Creatinine Equation (2020) Hematocrit Auto (Bld) [Volum e fraction]Ordered By: Angelica Rodriguez on 06-14-2024 Hematocrit (Bld) [Volume fraction] 37.0 % Low 40-54 [facility] Hemoglobin measurementOrdere d By: Angelica Rodriguez on 06-14-2024 Hemoglobin (Bld) [Mass/Vol] 11.9 g/dL Low 13.0-16.5 [facility] Immature granulocytes/100 WB C Auto (Bld)Ordered By: Angelica Rodriguez on 06-14-2024 Immature granulocytes/100 WBC (Bld) 1.200 % High 0.0-0.9 [facility] Comment on above: IG% - Immature Granu locytes (promyelocytes, myelocytes and metamyelocytes) > 1% indicates that a LEFT SHIFT is Present. Alethea-1 antibody assayOrdered B y: Angelica Rodriguez on 06-14-2024 ALETHEA-1 Antibody <0.2 AI 0.0-0.9 [facility] Comment on above: Previous reported re sult: TNP AIEdited by: ESTEVAN on 06/16/24:1308 AMENDED REPORT 06/16/24 1308 ANTI-ALETHEA previously reported as: Test not performed Laboratory - Chemistry and C hemistry - challengeOrdered By: Angelica Rodriguez on 06-14-2024 AST [Catalytic activity/Vol] 12 U/L <38 [facility] Lymphocytes Auto (Unsp spec) [#/Vol]Ordered By: Angelica Rodriguez on 06-14-2024 Lymphocytes (Bld) [#/Vol] 1.19 10*3/uL 0.83-4.51 [facility] Lymphocytes/100 WBC Auto (Un sp spec)Ordered By: Angelica Rodriguez on 06-14-2024 Lymphocytes/100 WBC (Bld) 8.4 % Low 19-41 [facility] MCV (mean corpuscular volume ) determinationOrdered By: Angelica Rodriguez on 06-14-2024 MCV (RBC) [Entitic vol] 86.9 fL 80-94 [facility] Mean corpuscular hemoglobin (MCH) determinationOrdered By: Angelica Rodriguez on 06-14-2024 MCH (RBC) [Entitic mass] 27.9 pg 27.0-32.0 [facility] Mean corpuscular hemoglobin concentration (MCHC) determinationOrdered By: Angelica Rodriguez on 06-14-2024 MCHC (RBC) [Mass/Vol] 32.2 g/dL 32-36 [facility] Mean platelet volume determi nationOrdered By: Angelica Rodriguez on 06-14-2024 Platelet mean volume (Bld) [Entitic vol] 9.9 fL 6.2-12.0 [facility] Monocyte percentageOrdered B y: Angelica Rodriguez on 06-14-2024 Monocytes/100 WBC (Bld) 3.6 % 0-10 [facility] Neutrophil percentageOrdered By: Angelica Rodriguez on 06-14-2024 Neutrophils/100 WBC (Bld) 86.6 % High 47-70 [facility] No Panel InformationOrdered By: Angelica Rodriguez on 06-14-2024 12 U/L <38 [facility] Nucleated red blood cell per centageOrdered By: Angelica Rodriguez on 06-14-2024 Nucleated RBC/100 WBC (Bld) [Ratio] 0 % 0-5 [facility] Platelet countOrdered By: Wilner Rodriguez on 06-14-2024 Platelets (Bld) [#/Vol] 250 10*3/uL 150-450 [facility] Potassium (Unsp spec) [Mass/ Vol]Ordered By: Angelica Rodriguez on 06-14-2024 Potassium [Moles/Vol] 4.5 mmol/L 3.3-5.1 [facility] Potassium measurement (mass/ volume)Ordered By: Angelica Rodriguez on 06-14-2024 Potassium (Unsp spec) [Mass/Vol] 4.5 mmol/L 3.3-5.1 [facility] RBC Auto (Bld) [#/Vol]Ordere d By: Angelica Rodriguez on 06-14-2024 RBC (Bld) [#/Vol] 4.26 10*6/uL Low 4.6-6.2 [facility] LIVE IN HOUSEKEEPER abOrdered By: Angelica laguerre on 06-14-2024 [employer] IN HOUSEKEEPER Antibody <0.2 AI 0.0-0.9 [facility] Comment on above: Previous reported re sult: TNP AIEdited by: ESTEVAN on 06/16/24:1308 AMENDED REPORT 06/16/24 1308 L[employer] IN HOUSEKEEPER Ab previously reported as: Test not performed SCL-70 extractable nuclear A b Qn (S)Ordered By: Angelica Rodriguez on 06-14-2024 Scl-70 (Scleroderma) Antibody <0.2 AI 0.0-0.9 [facility] Comment on above: Previous reported re sult: TNP AIEdited by: ESTEVAN on 06/16/24:1308 AMENDED REPORT 06/16/24 1308 ANTISCLER previously reported as: Test not performed SS-A IgG antibody assayOrder ed By: Angelica Rodriguez on 06-14-2024 SS-A/Ro IgG Antibody < 0.2 AI 0.0-0.9 [facility] Comment on above: Previous reported re sult: TNP AIEdited by: ESTEVAN on 06/16/24:1308 AMENDED REPORT 06/16/24 1308 Anti-SS-A previously reported as: Test not performed SS-B IgG antibody assayOrder ed By: Angelica Rodriguez on 06-14-2024 SS-B/La IgG Antibody < 0.2 AI 0.0-0.9 [facility] Comment on above: Previous reported re sult: TNP AIEdited by: ESTEVAN on 06/16/24:1308 AMENDED REPORT 06/16/24 1308 Anti-SS-B previously reported as: Test not performed Serum DNA double strand anti body assay (units/volume)Ordered By: Angelica Rodriguez on 06-14-2024 DNA double strand Ab Qn (S) 2 [IU]/mL 0-9 [facility] Comment on above: Negative <5 Equivoca l 5 - 9 Positive >9Previous reported result: TNP IU/mLEdited by: ESTEVAN on 06/16/24:1308 AMENDED REPORT 06/16/24 1308 dsDNA AB previously reported as: Test not performed Serum Scl-70 antibody assay (units/volume)Ordered By: Angelica Rodriguez on 06-14-2024 SCL-70 extractable nuclear Ab Qn (S) <0.2 AI 0.0-0.9 [facility] Comment on above: Previous reported re sult: TNP AIEdited by: ESTEVAN on 06/16/24:1308 AMENDED REPORT 06/16/24 1308 ANTISCLER previously reported as: Test not performed Serum creatinine measurement (mass/volume)Ordered By: Angelica Rodriguez on 06-14-2024 Creatinine [Mass/Vol] 0.98 mg/dL 0.70-1.20 [facility] Serum globulin measurementOr dered By: Angelica Rodriguez on 06-14-2024 Globulin (S) [Mass/Vol] 4.0 g/dL 2.2-4.2 [facility] Serum glucose measurement (m ass/volume)Ordered By: Angelica Rodriguez on 06-14-2024 Glucose [Mass/Vol] 360 mg/dL High 70-99 [facility] Serum or plasma C reactive p rotein measurement (mass/volume)Ordered By: Angelica Rodirguez on 06-14-2024 CRP [Mass/Vol] 33.80 mg/L High 0.0-3.0 [facility] Serum or plasma alanine delaney otransferase (ALT) measurementOrdered By: Angelica Rodriguez on 06-14-2024 ALT [Catalytic activity/Vol] 18 U/L <47 [facility] Serum or plasma albumin alfreda urement (mass/volume)Ordered By: Angelica Rodriugez on 06-14-2024 Albumin [Mass/Vol] 4.0 g/dL 3.4-4.8 [facility] Serum or plasma albumin/glob ulin mass ratioOrdered By: Angelica Rodriguez on 06-14-2024 Albumin/Globulin [Mass ratio] 1.0 {ratio} 0.9-2.4 [facility] Serum or plasma alkaline debby sphatase measurementOrdered By: Angelica Rodriguez on 06-14-2024 ALP [Catalytic activity/Vol] 84 U/L 40-129 [facility] Serum or plasma calcium alfreda urement (mass/volume)Ordered By: Angelica Rodriguez on 06-14-2024 Calcium [Mass/Vol] 10.1 mg/dL 7.6-11.0 [facility] Serum or plasma urea nitroge n measurement (mass/volume)Ordered By: Angelica Rodriguez on 06-14-2024 Urea nitrogen [Mass/Vol] 24 mg/dL High 4-19 [facility] Ferreira antibody assayOrdered By: Angelica Rodriguez on 06-14-2024 SM Antibody <0.2 AI 0.0-0.9 [facility] Comment on above: Previous reported re sult: TNP AIEdited by: ESTEVAN on 06/16/24:1308 AMENDED REPORT 06/16/24 1308 HANNA Ab previously reported as: Test not performed Sodium levelOrdered By: Beatriz Rodriguez on 06-14-2024 Sodium [Moles/Vol] 133 mmol/L 133-145 [facility] Total proteinOrdered By: Stone Rodriguez on 06-14-2024 Protein [Mass/Vol] 7.9 g/dL 5.9-8.4 [facility] White blood cell (WBC) count Ordered By: Angelica Rodriguez on 06-14-2024 WBC (Bld) [#/Vol] 14.2 10*3/uL High 4.4-11.0 [facility] Abdomen/Pelvis W IV Cont ONL Yon 06-09-2024 Abdomen/Pelvis W IV Cont ONLY Normal [facility] Absolute lymphocyte countOrd ered By: ED PROVIDER on 06-09-2024 Lymphocytes Auto (Unsp spec) [#/Vol] 1.41 10*3/uL 0.83-4.51 [facility] Absolute neutrophil countOrd ered By: ED PROVIDER on 06-09-2024 Neutrophils (Bld) [#/Vol] 10.7 10*3/uL High 2.0-7.7 [facility] Anion gap in Serum or Plasma Ordered By: ED PROVIDER on 06-09-2024 Anion gap [Moles/Vol] 15 mmol/L 5-15 [facility] Automated lymphocyte count a s percentage of total leukocytesOrdered By: ED PROVIDER on 06-09-2024 Lymphocytes/100 WBC Auto (Unsp spec) 10.9 % Low 19-41 [facility] BUN/creatinine ratioOrdered By: ED PROVIDER on 06-09-2024 Urea nitrogen/Creatinine [Mass ratio] 20.3 mg/mg High 10-20 [facility] Basophil percentageOrdered B y: ED PROVIDER on 06-09-2024 Basophils/100 WBC (Bld) 0.2 % 0-1 [facility] Bilirubin, totalOrdered By: ED PROVIDER on 06-09-2024 Bilirubin [Mass/Vol] 0.21 mg/dL 0.00-1.30 [facility] CBC W/Diff, Automatedon 05-14 Absolute Lymph 1.41 X10 3/uL Normal 0.83-4.51 [facility] Comment on above: Performed By: #### L 501.2450, L500.4050, L100.0100 ####[facility] [address] [place], [address] Absolute Neut 10.7 X10 3/uL High 2.0-7.7 [facility] Comment on above: Performed By: #### L 501.2450, [id number], L100.0100 ####[facility] [address] [place], [address] Basophils/100 WBC (Bld) 0.2 % Normal 0-1 [facility] Comment on above: Performed By: #### L 501.2450, [id number], L100.0100 ####[facility] [address] [place], [address] Eosinophils/100 WBC (Bld) 0.2 % Normal 0-5 [facility] Comment on above: Performed By: #### L 501.2450, [id number], L100.0100 ####[facility] [address] [place], [address] Erythrocyte distribution width (RBC) [Ratio] 16.1 % High 11.6-14.6 [facility] Comment on above: Performed By: #### L 501.2450, [id number], L100.0100 ####[facility] [address] [place], [address] Hematocrit (Bld) [Volume fraction] 34.6 % Low 40-54 [facility] Comment on above: Performed By: #### L 501.2450, [id number], L100.0100 ####[facility] [address] [place], [address] Hemoglobin (Bld) [Mass/Vol] 11.1 g/dL Low 13.0-16.5 [facility] Comment on above: Performed By: #### L 501.2450, [id number], L100.0100 ####[facility] [address] [place], [address] IG% 0.800 Normal 0.0-0.9 [facility] Comment on above: Result Comment: IG% - Immature Granulocytes (promyelocytes, myelocytes andmetamyelocytes) > 1% indicates that a LEFT SHIFT is Present. Performed By: #### L 501.2450, [id number], L100.0100 ####[facility] [address] [place], [address] Lymphocytes/100 WBC (Bld) 10.9 % Low 19-41 [facility] Comment on above: Performed By: #### L 501.2450, [id number], L100.0100 ####[facility] [address] [place], [address] MCH (RBC) [Entitic mass] 28.2 pg Normal 27.0-32.0 [facility] Comment on above: Performed By: #### L 501.2450, [id number], L100.0100 ####[facility] [address] [place], [address] MCHC (RBC) [Mass/Vol] 32.1 g/dL Normal 32-36 [facility] Comment on above: Performed By: #### L 501.2450, [id number], L100.0100 ####[facility] [address] [place], [address] MCV (RBC) [Entitic vol] 87.8 fL Normal 80-94 [facility] Comment on above: Performed By: #### L 501.2450, [id number], L100.0100 ####[facility] [address] [place], [address] Monocytes/100 WBC (Bld) 5.3 % Normal 0-10 [facility] Comment on above: Performed By: #### L 501.2450, [id number], L100.0100 ####[facility] [address] [place], [address] Neutrophils/100 WBC (Bld) 82.6 % High 47-70 [facility] Comment on above: Performed By: #### L 501.2450, [id number], L100.0100 ####[facility] [address] [place], [address] Nucleated RBC (Bld) [#/Vol] 0 10*3/uL Normal 0-5 [facility] Comment on above: Performed By: #### L 501.2450, [id number], L100.0100 ####[facility] [address] [place], [address] Platelet mean volume (Bld) [Entitic vol] 9.3 fL Normal 6.2-12.0 [facility] Comment on above: Performed By: #### L 501.2450, [id number], L100.0100 ####[facility] [address] [place], [address] Platelets (Bld) [#/Vol] 249 10*3/uL Normal 150-450 [facility] Comment on above: Performed By: #### L 501.2450, [id number], L100.0100 ####[facility] [address] [place], [address] RBC (Bld) [#/Vol] 3.94 10*6/uL Low 4.6-6.2 [facility] Comment on above: Performed By: #### L 501.2450, [id number], L100.0100 ####[facility] [address] [place], [address] RDW SD 51.3 fl High 35.1-43.9 [facility] Comment on above: Performed By: #### L 501.2450, [id number], L100.0100 ####[facility] [address] [place], [address] WBC (Bld) [#/Vol] 12.9 10*3/uL High 4.4-11.0 [facility] Comment on above: Performed By: #### L 501.2450, [id number], L100.0100 ####[facility] [address] [place], [address] Carbon dioxide, total [Moles /volume] in Central venous bloodOrdered By: ED PROVIDER on 06-09-2024 CO2 [Moles/Vol] 22.1 mmol/L 21.0-32.0 [facility] Chloride assayOrdered By: ED PROVIDER on 06-09-2024 Chloride [Moles/Vol] 94 mmol/L Low 98-108 [facility] Comprehensive Metabolic Prof ilon 06-09-2024 Albumin [Mass/Vol] 3.8 g/dL Normal 3.4-4.8 [facility] Comment on above: Performed By: #### L 501.2450, [id number], L100.0100 ####[facility] [address] [place], [address] Albumin/Globulin [Mass ratio] 0.9 {ratio} Normal 0.9-2.4 [facility] Comment on above: Performed By: #### L 501.2450, [id number], L100.0100 ####[facility] [address] [place], [address] ALK PHOS 81 U/L Normal 40-129 [facility] Comment on above: Performed By: #### L 501.2450, [id number], L100.0100 ####[facility] [address] [place], [address] ALT [Catalytic activity/Vol] 13 U/L Normal <=46 [facility] Comment on above: Performed By: #### L 501.2450, [id number], L100.0100 ####[facility] [address] [place], [address] AST [Catalytic activity/Vol] 11 U/L Normal <=37 [facility] Comment on above: Performed By: #### L 501.2450, [id number], L100.0100 ####[facility] [address] [place], [address] Bilirubin [Mass/Vol] 0.21 mg/dL Normal 0.00-1.30 [facility] Comment on above: Performed By: #### L 501.2450, [id number], L100.0100 ####[facility] [address] [place], [address] BUN/CRE 20.3 RATIO High 10-20 [facility] Comment on above: Performed By: #### L 501.2450, [id number], L100.0100 ####[facility] [address] [place], [address] Calcium [Mass/Vol] 10.3 mg/dL Normal 7.6-11.0 [facility] Comment on above: Performed By: #### L 501.2450, [id number], L100.0100 ####[facility] [address] [place], [address] Chloride [Moles/Vol] 94 mmol/L Low 98-108 [facility] Comment on above: Performed By: #### L 501.2450, [id number], L100.0100 ####[facility] [address] [place], [address] CO2 [Moles/Vol] 22.1 mmol/L Normal 21.0-32.0 [facility] Comment on above: Performed By: #### L 501.2450, [id number], L100.0100 ####[facility] [address] [place], [address] Creatinine [Mass/Vol] 1.05 mg/dL Normal 0.70-1.20 [facility] Comment on above: Performed By: #### L 501.2450, [id number], L100.0100 ####[facility] [address] [place], [address] GAP 15 Normal 5-15 [facility] Comment on above: Performed By: #### L 501.2450, [id number], L100.0100 ####[facility] [address] [place], [address] GFR/1.73 sq M.predicted among non-blacks MDRD (S/P/Bld) [Vol rate/Area] 77 mL/min/{1.73_m2} Normal >60 [facility] Comment on above: Result Comment: mL/m in/1.73m2 CKD-EPI Creatinine Equation (2020) Performed By: #### L 501.2450, [id number], L100.0100 ####[facility] [address] [place], [address] Globulin (S) [Mass/Vol] 4.2 g/dL Normal 2.2-4.2 [facility] Comment on above: Performed By: #### L 501.2450, [id number], L100.0100 ####[facility] [address] [place], [address] Glucose [Mass/Vol] 289 mg/dL High 70-99 [facility] Comment on above: Performed By: #### L 501.2450, [id number], L100.0100 ####[facility] [address] [place], [address] Potassium [Moles/Vol] 5.3 mmol/L High 3.3-5.1 [facility] Comment on above: Performed By: #### L 501.2450, [id number], L100.0100 ####[facility] [address] [place], [address] Sodium [Moles/Vol] 131 mmol/L Low 133-145 [facility] Comment on above: Performed By: #### L 501.2450, [id number], L100.0100 ####[facility] [address] [place], [address] T PROT 8.0 g/dL Normal 5.9-8.4 [facility] Comment on above: Performed By: #### L 501.2450, [id number], L100.0100 ####[facility] [address] [place], [address] Urea nitrogen [Mass/Vol] 21 mg/dL High 4-19 [facility] Comment on above: Performed By: #### L 501.2450, [id number], L100.0100 ####[facility] [address] [place], [address] Emergency Department Summary on 06-09-2024 Emergency Department Summary Normal [facility] Eosinophil percentageOrdered By: ED PROVIDER on 06-09-2024 Eosinophils/100 WBC (Bld) 0.2 % 0-5 [facility] Erythrocyte distribution wid th ratioOrdered By: ED PROVIDER on 06-09-2024 Erythrocyte distribution width (RBC) [Ratio] 16.1 % High 11.6-14.6 [facility] Erythrocyte distribution wid th standard deviationOrdered By: ED PROVIDER on 06-09-2024 Erythrocyte distribution width (RBC) [Entitic vol] 51.3 fL High 35.1-43.9 [facility] Erythrocyte distribution width (RBC) [Ratio] 51.3 fl High 35.1-43.9 [facility] GFR/1.73 sq M.predicted ana g non-blacks MDRD (S/P/Bld) [Vol rate/Area]Ordered By: ED PROVIDER on 06-09-2024 Estimated GFR (MDRD) Non-Af Amer 77 >60 [facility] Comment on above: mL/min/1.73m2 CKD-EP I Creatinine Equation (2020) Glomerular filtration rate ( GFR) estimation/1.73 sq m using serum, plasma, or whole bOrdered By: ED PROVIDER on 06-09-2024 GFR/1.73 sq M.predicted among non-blacks MDRD (S/P/Bld) [Vol rate/Area] 77 mL/min/{1.73_m2} >60 [facility] Comment on above: mL/min/1.73m2 CKD-EP I Creatinine Equation (2020) Hematocrit Auto (Bld) [Volum e fraction]Ordered By: ED PROVIDER on 06-09-2024 Hematocrit (Bld) [Volume fraction] 34.6 % Low 40-54 [facility] Hemoglobin measurementOrdere d By: ED PROVIDER on 06-09-2024 Hemoglobin (Bld) [Mass/Vol] 11.1 g/dL Low 13.0-16.5 [facility] Immature granulocytes/100 WB C Auto (Bld)Ordered By: ED PROVIDER on 06-09-2024 Immature granulocytes/100 WBC (Bld) 0.800 % 0.0-0.9 [facility] Comment on above: IG% - Immature Granu locytes (promyelocytes, myelocytes and metamyelocytes) > 1% indicates that a LEFT SHIFT is Present. Laboratory - Chemistry and C hemistry - challengeOrdered By: ED PROVIDER on 06-09-2024 AST [Catalytic activity/Vol] 11 U/L <38 [facility] Lipaseon 06-09-2024 Lipase [Catalytic activity/Vol] 46 U/L Normal 13-75 [facility] Comment on above: Result Comment: Bettina kelly note:LIPASE revised reference range effective 22.New Lipase methodology. Expected to produce lower valuesthan the previous assay method.NEW Reference Range: 13 - 75 U/L Performed By: #### L 501.2450, L500.4050, L100.0100 ####[facility] [address] [place], [address] Lipase measurementOrdered By : ED PROVIDER on 06-09-2024 Lipase [Catalytic activity/Vol] 46 U/L 13-75 [facility] Comment on above: Please note:LIPASE r evised reference range effective 22. New Lipase methodology. Expected to produce lower values than the previous assay method. NEW Reference Range: 13 - 75 U/L Lymphocytes Auto (Unsp spec) [#/Vol]Ordered By: ED PROVIDER on 06-09-2024 Lymphocytes (Bld) [#/Vol] 1.41 10*3/uL 0.83-4.51 [facility] Lymphocytes/100 WBC Auto (Un sp spec)Ordered By: ED PROVIDER on 06-09-2024 Lymphocytes/100 WBC (Bld) 10.9 % Low 19-41 [facility] MCV (mean corpuscular volume ) determinationOrdered By: ED PROVIDER on 06-09-2024 MCV (RBC) [Entitic vol] 87.8 fL 80-94 [facility] Mean corpuscular hemoglobin (MCH) determinationOrdered By: ED PROVIDER on 06-09-2024 MCH (RBC) [Entitic mass] 28.2 pg 27.0-32.0 [facility] Mean corpuscular hemoglobin concentration (MCHC) determinationOrdered By: ED PROVIDER on 06-09-2024 MCHC (RBC) [Mass/Vol] 32.1 g/dL 32-36 [facility] Mean platelet volume determi nationOrdered By: ED PROVIDER on 06-09-2024 Platelet mean volume (Bld) [Entitic vol] 9.3 fL 6.2-12.0 [facility] Monocyte percentageOrdered B y: ED PROVIDER on 06-09-2024 Monocytes/100 WBC (Bld) 5.3 % 0-10 [facility] Neutrophil percentageOrdered By: ED PROVIDER on 06-09-2024 Neutrophils/100 WBC (Bld) 82.6 % High 47-70 [facility] No Panel InformationOrdered By: ED PROVIDER on 06-09-2024 11 U/L <38 [facility] Nucleated red blood cell per centageOrdered By: ED PROVIDER on 06-09-2024 Nucleated RBC/100 WBC (Bld) [Ratio] 0 % 0-5 [facility] Platelet countOrdered By: ED PROVIDER on 06-09-2024 Platelets (Bld) [#/Vol] 249 10*3/uL 150-450 [facility] Potassium (Unsp spec) [Mass/ Vol]Ordered By: ED PROVIDER on 06-09-2024 Potassium [Moles/Vol] 5.3 mmol/L High 3.3-5.1 [facility] Potassium measurement (mass/ volume)Ordered By: ED PROVIDER on 06-09-2024 Potassium (Unsp spec) [Mass/Vol] 5.3 mmol/L High 3.3-5.1 [facility] RBC Auto (Bld) [#/Vol]Ordere d By: ED PROVIDER on 06-09-2024 RBC (Bld) [#/Vol] 3.94 10*6/uL Low 4.6-6.2 [facility] Serum creatinine measurement (mass/volume)Ordered By: ED PROVIDER on 06-09-2024 Creatinine [Mass/Vol] 1.05 mg/dL 0.70-1.20 [facility] Serum globulin measurementOr dered By: ED PROVIDER on 06-09-2024 Globulin (S) [Mass/Vol] 4.2 g/dL 2.2-4.2 [facility] Serum glucose measurement (m ass/volume)Ordered By: ED PROVIDER on 06-09-2024 Glucose [Mass/Vol] 289 mg/dL High 70-99 [facility] Serum or plasma alanine delaney otransferase (ALT) measurementOrdered By: ED PROVIDER on 06-09-2024 ALT [Catalytic activity/Vol] 13 U/L <47 [facility] Serum or plasma albumin alfreda urement (mass/volume)Ordered By: ED PROVIDER on 06-09-2024 Albumin [Mass/Vol] 3.8 g/dL 3.4-4.8 [facility] Serum or plasma albumin/glob ulin mass ratioOrdered By: ED PROVIDER on 06-09-2024 Albumin/Globulin [Mass ratio] 0.9 {ratio} 0.9-2.4 [facility] Serum or plasma alkaline debby sphatase measurementOrdered By: ED PROVIDER on 06-09-2024 ALP [Catalytic activity/Vol] 81 U/L 40-129 [facility] Serum or plasma calcium alfreda urement (mass/volume)Ordered By: ED PROVIDER on 06-09-2024 Calcium [Mass/Vol] 10.3 mg/dL 7.6-11.0 [facility] Serum or plasma urea nitroge n measurement (mass/volume)Ordered By: ED PROVIDER on 06-09-2024 Urea nitrogen [Mass/Vol] 21 mg/dL High 4-19 [facility] Sodium levelOrdered By: ED Annamarie GILLIS on 06-09-2024 Sodium [Moles/Vol] 131 mmol/L Low 133-145 [facility] Total proteinOrdered By: ED PROVIDER on 06-09-2024 Protein [Mass/Vol] 8.0 g/dL 5.9-8.4 [facility] White blood cell (WBC) count Ordered By: ED PROVIDER on 06-09-2024 WBC (Bld) [#/Vol] 12.9 10*3/uL High 4.4-11.0 [facility] Albumin DL <= 20 mg/L (U) [M ass/Vol]Ordered By: Latosha Renee on 06-06-2024 Urine Random Microalbumin < 12.0 mg/L NO RANGE EST. [facility] Anion gap in Serum or Plasma Ordered By: Latosha Renee on 06-06-2024 Anion gap [Moles/Vol] 16 mmol/L High 5-15 [facility] BUN/creatinine ratioOrdered By: Latosha Renee on 06-06-2024 Urea nitrogen/Creatinine [Mass ratio] 15.7 mg/mg 10- [facility] Bilirubin, totalOrdered By: Latosha Renee on 06-06-2024 Bilirubin [Mass/Vol] 0.30 mg/dL Normal 0.00-1.30 [facility] Comment on above: Performed By: #### L 506.0400, L502.0250, L501.9520, L500.4100, L500.4050, L506.1001, L501.9985 ####[facility] [address] [facility]. [place], [place], [phone] Calculated very low density lipoprotein (VLDL) cholesterol measurementOrdered By: Latosha Renee on 06-06-2024 Calculated very low density lipoprotein (VLDL) cholesterol measurement 26 mg/dL - [facility] VLDL Cholesterol 26 mg/dL - [facility] Carbon dioxide, total [Moles /volume] in Central venous bloodOrdered By: Latosha Renee on 06-06-2024 CO2 [Moles/Vol] 20.7 mmol/L Low 21.0-32.0 [facility] Comment on above: Performed By: #### L 506.0400, L502.0250, L501.9520, L500.4100, L500.4050, L506.1001, L501.9985 ####[facility] [address] [facility]. [place], [place], [phone] Chloride assayOrdered By: Vishnu Renee on 06-06-2024 Chloride [Moles/Vol] 94 mmol/L Low 98-108 [facility] Comment on above: Performed By: #### L 506.0400, L502.0250, L501.9520, L500.4100, L500.4050, L506.1001, L501.9985 ####[facility] [address] [place], [address] Comprehensive Metabolic Prof ilon 06-06-2024 ALK PHOS 61 U/L Normal 40-129 [facility] Comment on above: Performed By: #### L 506.0400, L502.0250, L501.9520, L500.4100, L500.4050, L506.1001, L501.9985 ####[facility] [address] [place], [place], [phone] BUN/CRE 15.7 RATIO Normal 10-20 [facility] Comment on above: Performed By: #### L 506.0400, L502.0250, L501.9520, L500.4100, L500.4050, L506.1001, L501.9985 ####[facility] [address] [place], [place], [phone] GAP 16 High 5-15 [facility] Comment on above: Performed By: #### L 506.0400, L502.0250, L501.9520, L500.4100, L500.4050, L506.1001, L501.9985 ####[facility] [address] [place], [place], [id number] T PROT 8.0 g/dL Normal 5.9-8.4 [facility] Comment on above: Performed By: #### L 506.0400, L502.0250, L501.9520, L500.4100, L500.4050, L506.1001, L501.9985 ####[facility] [address] [place], [place], [phone] Comprehensive Metabolic Prof ilOrdered By: Latosha Renee on 06-06-2024 AST [Catalytic activity/Vol] 12 U/L Normal <=37 [facility] Comment on above: Performed By: #### L 506.0400, L502.0250, L501.9520, L500.4100, L500.4050, L506.1001, L501.9985 ####[facility] [address] [place], [address] Creatinine Unsp time (U) [Ma ss/Vol]Ordered By: Latosha Renee on 06-06-2024 Creatinine (U) [Mass/Vol] 17.80 mg/dL Low 39.00-259. 00 [facility] GFR/1.73 sq M.predicted ana g non-blacks MDRD (S/P/Bld) [Vol rate/Area]Ordered By: Latosha Renee on 06-06-2024 Estimated GFR (MDRD) Non-Af Amer 80 >60 [facility] Comment on above: mL/min/1.73m2 CKD-EP I Creatinine Equation (2020) Glomerular filtration rate ( GFR) estimation/1.73 sq m using serum, plasma, or whole bOrdered By: Latosha Renee on 06-06-2024 GFR/1.73 sq M.predicted among non-blacks MDRD (S/P/Bld) [Vol rate/Area] 80 mL/min/{1.73_m2} Normal >60 [facility] Comment on above: mL/min/1.73m2 CKD-EP I Creatinine Equation (2020) Result Comment: mL/m in/1.73m2 CKD-EPI Creatinine Equation (2020) Performed By: #### L 506.0400, L502.0250, L501.9520, L500.4100, L500.4050, L506.1001, L501.9985 ####[facility] [address] [place], [place], [phone] Hemoglobin A1con 06-06-2024 HbA1c (Bld) [Mass fraction] 8.4 % Normal <=5.6 [facility] Comment on above: Performed By: #### L 506.0400, L502.0250, L501.9520, L500.4100, L500.4050, L506.1001, L501.9985 ####[facility] [address] [place], [address] Hemoglobin A1c percentageOrd ered By: Latosha Renee on 06-06-2024 HbA1c (Bld) [Mass fraction] 8.4 % >5.7 [facility] L506.1001on 06-06-2024 Vitamin D 25-OH 42.4 ng/mL Normal 30-100 [facility] Comment on above: Result Comment: Liya min D StatusDeficiency: <20 ng/mL (50nmol/L)Insufficiency: 20-30 ng/mL (50-75 nmol/L)Sufficiency: 30-100 ng/mL (75-250 nmol/L)Toxicity: >100 ng/mL (>250 nmol/L) Performed By: #### L 506.0400, L502.0250, L501.9520, L500.4100, L500.4050, L506.1001, L501.9985 ####[facility] [address] [place], [place], [phone] LDL calc ser/plasOrdered By: Latosha Renee on 06-06-2024 Cholesterol in LDL [Mass/Vol] 10 mg/dL Normal [facility] Comment on above: Rirdwfkueo=183-874 m g/dL & Higher Ybxc=475 mg/dL or greater Result Comment: Bord llryoo=962-682 mg/dL Higher Octm=750 mg/dL or greater Performed By: #### L 506.0400, L502.0250, L501.9520, L500.4100, L500.4050, L506.1001, L501.9985 ####[facility] [address] [place], [place], [phone] LDL Cholesterol, Calculated 10 mg/dL [facility] Comment on above: Gaufsqebgw=107-907 m g/dL & Higher Pnle=571 mg/dL or greater Lipid Profileon 06-06-2024 CHOL:HDL 1.82 Normal [facility] Comment on above: Performed By: #### L 506.0400, L502.0250, L501.9520, L500.4100, L500.4050, L506.1001, L501.9985 ####[facility] [address] [place], [phone] Cholesterol in VLDL [Mass/Vol] 26 mg/dL Normal 5-40 [facility] Comment on above: Performed By: #### L 506.0400, L502.0250, L501.9520, L500.4100, L500.4050, L506.1001, L501.9985 ####[facility] [address] [place], [address] Microalb:Creat Ratio,Random URon 06-06-2024 Creatinine [Mass/Vol] 17.80 mg/dL Low 39.00- 259. 00 [facility] Comment on above: Performed By: #### L 506.0400, L502.0250, L501.9520, L500.4100, L500.4050, L506.1001, L501.9985 ####[facility] [address] [place], [place], [phone] MALB:CREAT UNABLE TO CALCULATE Normal [facility] Comment on above: Performed By: #### L 506.0400, L502.0250, L501.9520, L500.4100, L500.4050, L506.1001, L501.9985 ####[facility] [address] [place], [place], [phone] MICROALBUMIN,UR < 12.0 Normal NO RANGE EST. [facility] Comment on above: Performed By: #### L 506.0400, L502.0250, L501.9520, L500.4100, L500.4050, L506.1001, L501.9985 ####[facility] [address] [facility]. [place], [place], [phone] Microalbumin/creat ratio urO rdered By: Latosha Renee on 06-06-2024 Urine Microalbumin/Creatinin e Ratio UNABLE TO CALCULATE mg/g CRE [facility] Urine microalbumin/creatinin e ratio measurement UNABLE TO CALCULATE mg/g CRE [facility] No Panel InformationOrdered By: Latosha Renee on 06-06-2024 12 U/L <38 [facility] Potassium measurement (mass/ volume)Ordered By: Latoshagypsy Renee on 06-06-2024 Potassium (Unsp spec) [Mass/Vol] 4.2 mmol/L 3.3-5.1 [facility] Potassium [Moles/Vol] 4.2 mmol/L Normal 3.3-5.1 [facility] Comment on above: Performed By: #### L 506.0400, L502.0250, L501.9520, L500.4100, L500.4050, L506.1001, L501.9985 ####[facility] [address] [facility]. [place], [place], [phone] Random urine creatinine alfreda urement (mass/volume)Ordered By: Latosha Renee on 06-06-2024 Creatinine Unsp time (U) [Mass/Vol] 17.80 mg/dL Low 39.00-259. 00 [facility] Screening total cholesterol/ high density lipoprotein (HDL) cholesterol ratioOrdered By: Latosha Renee on 06-06-2024 Cholesterol.total/Chol esterol in HDL [Mass ratio] 1.82 {ratio} [facility] Serum creatinine measurement (mass/volume)Ordered By: Latosha Renee on 06-06-2024 Creatinine [Mass/Vol] 1.02 mg/dL Normal 0.70-1.20 [facility] Comment on above: Performed By: #### L 506.0400, L502.0250, L501.9520, L500.4100, L500.4050, L506.1001, L501.9985 ####[facility] [address] [place], [address] Serum globulin measurementOr dered By: Latosha Renee on 06-06-2024 Globulin (S) [Mass/Vol] 5.6 g/dL High 2.2-4.2 [facility] Comment on above: Performed By: #### L 506.0400, L502.0250, L501.9520, L500.4100, L500.4050, L506.1001, L501.9985 ####[facility] [address] [facility] [place], [address] Serum glucose measurement (m ass/volume)Ordered By: Latosha Renee on 06-06-2024 Glucose [Mass/Vol] 238 mg/dL High 70-99 [facility] Comment on above: Performed By: #### L 506.0400, L502.0250, L501.9520, L500.4100, L500.4050, L506.1001, L501.9985 ####[facility] [address] [facility] [place], [address] Serum or plasma alanine delaney otransferase (ALT) measurementOrdered By: Latosha Renee on 06-06-2024 ALT [Catalytic activity/Vol] 14 U/L Normal <=46 [facility] Comment on above: Performed By: #### L 506.0400, L502.0250, L501.9520, L500.4100, L500.4050, L506.1001, L501.9985 ####[facility] [address] [facility] [place], [address] Serum or plasma albumin alfreda urement (mass/volume)Ordered By: Latosha Renee on 06-06-2024 Albumin [Mass/Vol] 2.4 g/dL Low 3.4-4.8 [facility] Comment on above: Performed By: #### L 506.0400, L502.0250, L501.9520, L500.4100, L500.4050, L506.1001, L501.9985 ####[facility] [address] [place], [address] Serum or plasma albumin/glob ulin mass ratioOrdered By: Latosha Renee on 06-06-2024 Albumin/Globulin [Mass ratio] 0.4 {ratio} Low 0.9-2.4 [facility] Comment on above: Performed By: #### L 506.0400, L502.0250, L501.9520, L500.4100, L500.4050, L506.1001, L501.9985 ####[facility] [address] [place], [address] Serum or plasma alkaline debby sphatase measurementOrdered By: Latosha Ragfunmi on 06-06-2024 ALP [Catalytic activity/Vol] 61 U/L 40-129 [facility] Serum or plasma calcium alfreda urement (mass/volume)Ordered By: Latosha Ragfunmi on 06-06-2024 Calcium [Mass/Vol] 8.2 mg/dL Normal 7.6-11.0 [facility] Comment on above: Performed By: #### L 506.0400, L502.0250, L501.9520, L500.4100, L500.4050, L506.1001, L501.9985 ####[facility] [address] [place], [address] Serum or plasma cholesterol in HDL measurement (mass/volume)Ordered By: [facility] Lonnyfunmi on 06-06-2024 Cholesterol in HDL [Mass/Vol] 44 mg/dL Normal [facility] Comment on above: National Cholesterol Education [...] 506.0400, L502.0250, L501.9520, L500.4100, L500.4050, L506.1001, L501.9985 ####[facility] [address] [facility]. [place], [place], [phone] Serum or plasma cholesterol measurement (mass/volume)Ordered By: Latosha Renee on 06-06-2024 Cholesterol [Mass/Vol] 81 mg/dL Normal <=200 [facility] Comment on above: Cholesterol level, D esirable <200 mg/dLBorderline high cholesterol 200-239 mg/dLHigh cholesterol >=240 mg/dLRecommendations of the NCEP Adult Treatment Panel for the following risk-cutoff thresholds for the [place] population. Result Comment: Chol esterol level, Desirable <200 mg/dLBorderline high cholesterol 200-239 mg/dLHigh cholesterol >=240 mg/dLRecommendations of the NCEP Adult Treatment Panel for thefollowing risk-cutoff thresholds for the [place] Americanpopulation. Performed By: #### L 506.0400, L502.0250, L501.9520, L500.4100, L500.4050, L506.1001, L501.9985 ####[facility] [address] [facility]. [place], [place], [phone] Serum or plasma urea nitroge n measurement (mass/volume)Ordered By: Latosha Renee on 06-06-2024 Urea nitrogen [Mass/Vol] 16 mg/dL Normal 4-19 [facility] Comment on above: Performed By: #### L 506.0400, L502.0250, L501.9520, L500.4100, L500.4050, L506.1001, L501.9985 ####[facility] [address] [place], [place], [address] Sodium levelOrdered By: Sebastián Renee on 06-06-2024 Sodium [Moles/Vol] 131 mmol/L Low 133-145 [facility] Comment on above: Performed By: #### L 506.0400, L502.0250, L501.9520, L500.4100, L500.4050, L506.1001, L501.9985 ####[facility] [address] [place], [place], [address] T4 Free Directon 06-06-2024 T4 FREE DIRECT 1.30 ng/dL Normal 0.76-1.46 [facility] Comment on above: Performed By: #### L 506.0400, L502.0250, L501.9520, L500.4100, L500.4050, L506.1001, L501.9985 ####[facility] [address] [facility] [address] [place], [place], [address] T4 freeOrdered By: Latosha caputo on 06-06-2024 Free T4 [Mass/Vol] 1.30 ng/dL 0.76-1.46 [facility] TSH DL <= 0.005 mIU/L QnOrde red By: Latosha Renee on 06-06-2024 Thyroid Stimulating Hormone (TSH) 0.767 uIU/mL 0.300-4.20 0 [facility] TSH Qn 0.767 uIU/mL 0.300-4.20 0 [facility] Thyroid Stim Hormone (TSH)on 06-06-2024 TSH 0.767 uIU/mL Normal 0.300-4.20 0 [facility] Comment on above: Performed By: #### L 506.0400, L502.0250, L501.9520, L500.4100, L500.4050, L506.1001, L501.9985 ####[facility] [address] [place], [place], [address] Total proteinOrdered By: Gerald Renee on 06-06-2024 Protein [Mass/Vol] 8.0 g/dL 5.9-8.4 [facility] Triglycerides measurementOrd ered By: Latosha Renee on 06-06-2024 Triglyceride [Mass/Vol] 132 mg/dL Normal [facility] Comment on above: The drugs N-Acetylcy steine and Metamizole may falsely depress this assay. Normal range: <150 mg/dLBorderline High: 150-199 mg/dLHigh: 200-499 mg/dLVery High: >500 mg/dL Result Comment: The drugs N-Acetylcysteine and Metamizole may falselydepress this assay.Normal range: <150 mg/dLBorderline High: 150-199 mg/dLHigh: 200-499 mg/dLVery High: >500 mg/dL Performed By: #### L 506.0400, L502.0250, L501.9520, L500.4100, L500.4050, L506.1001, L501.9985 ####[facility] [address] [place], [place], [id number] Urine albumin measurement [facility] detection limit of 20 mg/L or less (mass/volume)Ordered By: Latosha Renee on 06-06-2024 Albumin DL <= 20 mg/L (U) [Mass/Vol] < 12.0 mg/L NO RANGE EST. [facility] Vitamin D, 25-hydroxyOrdered By: Latosha Renee on 06-06-2024 Vitamin D 25-Hydroxy 42.4 ng/mL 30-100 [facility] Comment on above: Vitamin D StatusDefi ciency: <20 ng/mL (50nmol/L)Insufficiency: 20-30 ng/mL (50-75 nmol/L)Sufficiency: 30-100 ng/mL (75-250 nmol/L)Toxicity: >100 ng/mL (>250 nmol/L) CNPWhitney 06-02-2024 CNPN Telephone (HEMAWS) REY MEAD ([id number]) 1955 M Date Time Provider Department 06/02/24 SHILPI BROOKS During your visit today, we recorded the following information about you: Shilpi Brooks, RN 06/02/2024 4:43 PM Addendum Care Coordination Triage Note Cancer Marceline Situation: Patient reports Other Pain, See phone encounter 05/31/24. He has additional questions about procedure at [facility]. CT C/A/P at [facility] , EGD 05/31/24. Background: Lung cancer, [...] sometime abdominal. no one know why Dr. Gutierrez had him try Gabapentin but he states [...] has an appointment with Angelica Nguyen at [place] on 06/29/24. He is aware that I will discuss above with Dr. Gutierrez and call him back later today. Pharmacy, [facility] in [place]. Recommendations: Per RNCC, patient directed to: Manage at home. Instructions provided. Will discuss with Dr. Gutierrez and call back with further instructions. Shilpi Brooks RN June 02, 2024 10:14 AM Shilpi Brooks RN 06/02/2024 4:43 PM Signed Discussed with Angie Block CNP. Patient needs to reach out to primary care. He is not receiving treatment and pain is not related to cancer. Per last OV with Dr. Gutierrez on 03/07/25, patient needed to reach out to PCP and ask for physical therapy. Keiry Brooks RN Call to patient, aware of above. [...] provider, Angelica Nguyen. Patient aware that Dr. Gutierrez is gone for the day and will address with him on Wednesday am. He was also advised going to the ED if pain is unbearable/severe. He states he has been there and they did not give him anything. He did try Tylenol but not helpful with the pain. VIPUL Castro Cathleen, RN 06/05/2024 10:[address] Gutierrez agreeable to cover Gabapentin Rx until he can get in to see PCP on 06/29/24. Rx pended. VIPUL Castro Cathleen, RN 06/05/2024 10:08 AM Signed Call to patient and aware of Rx and agreeable to discuss any further refills at appt with new primary appointment next month. Keiry Brooks RN Allergies As of Date: 06/02/2024 (No [...] 1 Puff as instructed once daily. - AHYUFTGMJIZ-UPYKJZIRC-EIPDD TER INHALATION Inhale as instructed. - ALBUTEROL [...] PM. - (more content not included)... Normal [facility] Glucoseon 05-31-2024 FINGERSTICK GLU 222 mg/dL High 74-106 [facility] Comment on above: Result Comment: JEFRY TURNER OF PATIENT CARE PER NURSING PROTOCOL Performed By: #### L 501.080 ####[facility] [address] [place], [address] Ewa 05-31-2024 TAWNY Telephone (HEMKEYUR) REY MEAD ([id number]) 1955 M Date Time Provider Department 05/31/24 VALDEMAR GUTIERREZ During your visit today, we recorded the following information about you: Elena Goldsmith 05/31/2024 3:39 PM Signed Patient called stating that he had upper scope at [facility] today. Dr. Stahl informed patient to contact Dr. Gutierrez's office as soon as possible. Please advise patient if appointment is needed. Shilpi Brooks, VIPUL 05/31/2024 4:10 PM Signed Patient had Upper GI endoscopy with Dr. Santos today, reviewed his note, he asked patient to reach out to us about a new adrenal node on CT 05/09/24. Dr. Gutierrez aware and was addressed in previous phone encounter dated 05/10/24. Patient was called and aware. [facility] 02/18/24 CT chest: Upper abdomen: Stable benign 2.3 x 2.5 cm LEFT adrenal nodule. [facility] 05/09/24 CT: There is a 1.7 cm x 2.5 cm nodular density in the left adrenal gland. 05/31/[address] Santos: Impression: - Esophageal plaques were found, suspicious [...] and phone/contact number provided. Isatu Roche Cathleen, VIPUL 06/05/2024 9:50 AM Signed See other phone note. Keiry Brooks RN Allergies As of Date: 05/31/2024 (No Known Allergies) Date Reviewed: 04/27/2024 Reviewed by: Marina Lane LPN - Fully Assessed Reason for Visit: Patient Question [6307] Prescriptions as of 06/05/2024 - gabapentin (NEURONTIN) 100 mg capsule Take 1 capsule by mouth daily at bedtime for 30 days. - VITAMIN B COMPLEX-100 ORAL Take by mouth. - fluticasone/umeclidin/vilan ter (TRELEGY ELLIPTA INHALATION) Inhale 1 Puff as instructed once daily. - JKLAAINGXKJ-ITTOMECWP-IAJSS TER INHALATION Inhale as instructed. - ALBUTEROL [...] mass [R91.8] 04/02/2023 Encounter Status:Closed by SHILPI BROOKS on 06/05/24 Normal [facility] EGD Reporton 05-31-2024 EGD Report Normal [facility] deOrdered By: Wild Santos on 05-31-2024 Bedside Glucose (Misc Panel) 222 mg/dL High 74-106 [facility] Comment on above: MANAGEMENT OF PATIEN T CARE PER NURSING PROTOCOL Glucose [Mass/Vol] 222 mg/dL High 74-106 [facility] Comment on above: MANAGEMENT OF PATIEN T CARE PER NURSING PROTOCOL MR/POSTOP.ANEon 05-31-2024 MR/POSTOP.ANE Normal [facility] MR/[id number] 05-31-2024 MR/POSTOPAN2 Normal [facility] Surgery Specimen Level Jerrell 05-31-2024 Surgery Specimen Level IV Normal [facility] [facility] Comment on above: Performed By: #### P SUIV ####[facility] [address] [facility] [address] [facility]. [place], [place], [id number] MR/PAT.ANEon 05-24-2024 MR/PAT.ANE Normal [facility] MR/PAT.ANEon 05-23-2024 MR/PAT.ANE [facility] CRP SerPl-mCncon 05-22-2024 CRP [Mass/Vol] 6.1 mg/dL High <0.9 [facility] Comment on above: Order Comment: Speci men Type: BLOOD SPECIMENOrdering Facility: Romain Hurd MD Address: [facility] [address] , [place] [address] Performed By: #### 1 988-5 ####[facility] LABCLIA [id number] [place] [address] [place] ESR Westergren method (Bld) [Velocity]on 05-22-2024 ESR (Bld) [Velocity] 99 mm/h High 0-15 [facility] Comment on above: Order Comment: Speci men Type: BLOOD SPECIMENOrdering Facility: Romain Hurd MD Address: [address] , [place] [address] Performed By: #### 4 537-7 ####[facility] LABCLIA [id number] [address] [place] Internal Medicine Office Vis iton 05-22-2024 Internal Medicine Office Visit Normal [facility] XR CHEST 2V FRONTAL/LATon XR CHEST [...] fractures. IMPRESSION: Stable chest. No developing abnormality Sock Boarder: PSCMitchell Transcribe Date/Time: May 24 2024 4:10P Dictated by : ROBB KRISHNA MD This examination was interpreted and the report reviewed and electronically signed by: ROBB KRISHNA MD on May 24 2024 4:11PM EST [id number] Normal [facility] MR/BMS.BVSon 05-18-2024 MR/BMS.BVS Normal [facility] Upper GI Dual Contraston Upper GI Dual Contrast Normal [facility] CNPNon 05-10-2024 CNPN Telephone (HEMKEYUR) REY MEAD ([id number]) 1955 M Date Time Provider Department 05/10/24 VALDEMAR GUTIERREZ During your visit today, we recorded the following information about you: Elena Goldsmith 05/10/2024 10:04 AM Signed Patient was informed by Jaleesa Galindo CNP to contact office regarding CT results. CT completed yesterday at [facility]. Patient states he has new left adrenal lesion. Please advise patient. Ilana Neal LPN 05/10/2024 10:[address] results placed on Dr. Gutierrez's desk for review. ÓSCAR Morton Cathleen, VIPUL 05/10/2024 3:[address] Gutierrez reviewed and he has had a left adrenal lesion on previous scans. Appears stable. Most recent F CT chest 02/18/24: Upper abdomen: Stable benign 2.3 x 2.5 cm LEFT adrenal nodule. Keiry Brooks RN [facility] CT scan 05/09/24: There is a 1.7cm x 2.5cm nodular density in the left adrenal gland Keiry Brooks RN Further review of chart: CT Chest 04/01/23: Upper abdomen: A 2.7 x 2 cm left adrenal mass is stable since remote exam available dated 10/18/2004, likely benign. VIPUL Castro Cathleen, VIPUL 05/10/2024 3:16 PM Signed Call to patient, no answer, message left on self identified VM, that the left adrenal nodule is not new and is stable after review of previous scans. Instructed to call any further questions. VIPUL Castro Cathleen, VIPUL 05/11/2024 11:25 AM Signed Call to patient, message left to call me back and phone/contact number provided. VIPUL Roche Pamela S, LPN 05/11/2024 11:41 AM Signed Spoke with pt. Informed scan of left adrenal appears stable. Pt voiced understanding. Alana Gold LPN Allergies As of Date: 05/10/2024 (No [...] 1 Puff as instructed once daily. - [id number]-QILHZRBIZ-VGFGY TER INHALATION Inhale as instructed. - ALBUTEROL [...] Lung mass [R91.8] 04/02/2023 Encounter Status:Closed by ALANA GOLD on 05/11/24 Normal [facility] Gastroenterology Visit Repor ton 05-10-2024 Gastroenterology Visit Report Normal [facility] 12 Lead EKGon 05-09-2024 12 Lead EKG Normal [facility] Absolute lymphocyte countOrd ered By: Aden Stahl on 05-09-2024 Lymphocytes Auto (Unsp spec) [#/Vol] 1.25 10*3/uL 0.83-4.51 [facility] Absolute neutrophil countOrd ered By: Aden Stahl on 05-09-2024 Neutrophils (Bld) [#/Vol] 6.6 10*3/uL 2.0-7.7 [facility] Albumin to globulin ratioOrd ered By: Aden Stahl on 05-09-2024 Albumin/Globulin [Mass ratio] 0.6 {ratio} Low 0.9-2.4 [facility] Automated lymphocyte count a s percentage of total leukocytesOrdered By: Aden Stahl on 05-09-2024 Lymphocytes/100 WBC Auto (Unsp spec) 14.3 % Low 19-41 [facility] Basophil percentageOrdered B y: Aden Stahl on 05-09-2024 Basophils/100 WBC (Bld) 0.5 % 0-1 [facility] Bilirubin, totalOrdered By: Aden Stahl on 05-09-2024 Bilirubin [Mass/Vol] 0.20 mg/dL 0.20-1.00 [facility] Comment on above: For patients on eltr ombopag therapy, use of Dimension [place] TBIL is not recommended. Blood urea nitrogen (BUN)/cr eatinine ratioOrdered By: Aden Stahl on 05-09-2024 Urea nitrogen/Creatinine [Mass ratio] 14.7 mg/mg 10-20 [facility] CBC W/Diff, Automatedon 02- Absolute Lymph 1.25 X10 3/uL Normal 0.83-4.51 [facility] Comment on above: Performed By: #### L 100.0100, L501.2450, L500.4050 ####[facility] [address] [place], [address] Absolute Neut 6.6 X10 3/uL Normal 2.0-7.7 [facility] Comment on above: Performed By: #### L 100.0100, L501.2450, L500.4050 ####[facility] [address] [place], [address] Basophils/100 WBC (Bld) 0.5 % Normal 0-1 [facility] Comment on above: Performed By: #### L 100.0100, L501.2450, L500.4050 ####[facility] [address] [place], [address] Eosinophils/100 WBC (Bld) 1.1 % Normal 0-5 [facility] Comment on above: Performed By: #### L 100.0100, L501.2450, L500.4050 ####[facility] [address] [place], [address] Erythrocyte distribution width (RBC) [Ratio] 16.6 % High 11.6-14.6 [facility] Comment on above: Performed By: #### L 100.0100, L501.2450, L500.4050 ####[facility] [address] [place], [address] Hematocrit (Bld) [Volume fraction] 35.9 % Low 40-54 [facility] Comment on above: Performed By: #### L 100.0100, L501.2450, L500.4050 ####[facility] [address] [place], [address] Hemoglobin (Bld) [Mass/Vol] 11.4 g/dL Low 13.0-16.5 [facility] Comment on above: Performed By: #### L 100.0100, L501.2450, L500.4050 ####[facility] [address] [place], [address] IG% 1.100 High 0.0-0.9 [facility] Comment on above: Result Comment: IG% - Immature Granulocytes (promyelocytes, myelocytes andmetamyelocytes) > 1% indicates that a LEFT SHIFT is Present. Performed By: #### L 100.0100, L501.2450, L500.4050 ####[facility] [address] [place], [address] Lymphocytes/100 WBC (Bld) 14.3 % Low 19-41 [facility] Comment on above: Performed By: #### L 100.0100, L501.2450, L500.4050 ####[facility] [address] [place], [address] MCH (RBC) [Entitic mass] 28.1 pg Normal 27.0-32.0 [facility] Comment on above: Performed By: #### L 100.0100, L501.2450, L500.4050 ####[facility] [address] [place], [address] MCHC (RBC) [Mass/Vol] 31.8 g/dL Low 32-36 [facility] Comment on above: Performed By: #### L 100.0100, L501.2450, L500.4050 ####[facility] [address] [place], [address] MCV (RBC) [Entitic vol] 88.6 fL Normal 80-94 [facility] Comment on above: Performed By: #### L 100.0100, L501.2450, L500.4050 ####[facility] [address] [place], [address] Monocytes/100 WBC (Bld) 7.6 % Normal 0-10 [facility] Comment on above: Performed By: #### L 100.0100, L501.2450, L500.4050 ####[facility] [address] [place], [address] Neutrophils/100 WBC (Bld) 75.4 % High 47-70 [facility] Comment on above: Performed By: #### L 100.0100, L501.2450, L500.4050 ####[facility] [address] [place], [address] Nucleated RBC (Bld) [#/Vol] 0 10*3/uL Normal 0-5 [facility] Comment on above: Performed By: #### L 100.0100, L501.2450, L500.4050 ####[facility] [address] [place], [address] Platelet mean volume (Bld) [Entitic vol] 9.1 fL Normal 6.2-12.0 [facility] Comment on above: Performed By: #### L 100.0100, L501.2450, L500.4050 ####[facility] [address] [place], [address] Platelets (Bld) [#/Vol] 177 10*3/uL Normal 150-450 [facility] Comment on above: Performed By: #### L 100.0100, L501.2450, L500.4050 ####[facility] [address] [place], [address] RBC (Bld) [#/Vol] 4.05 10*6/uL Low 4.6-6.2 [facility] Comment on above: Performed By: #### L 100.0100, L501.2450, L500.4050 ####[facility] [address] [place], [address] RDW SD 53.7 fl High 35.1-43.9 [facility] Comment on above: Performed By: #### L 100.0100, L501.2450, L500.4050 ####[facility] [address] [place], [address] WBC (Bld) [#/Vol] 8.7 10*3/uL Normal 4.4-11.0 [facility] Comment on above: Performed By: #### L 100.0100, L501.2450, L500.4050 ####[facility] [address] [place], [address] CTA Chst, Abd, Pel W and/or WOon 05-09-2024 CTA Chst, Abd, Pel W and/or WO Normal [facility] Carbon dioxide measurementOr dered By: Aden Stahl on 05-09-2024 CO2 [Moles/Vol] 27.0 mmol/L 21.0-32.0 [facility] Chloride measurementOrdered By: Aden Stahl on 05-09-2024 Chloride [Moles/Vol] 104 mmol/L 98-107 [facility] Comprehensive Metabolic Prof ilon 05-09-2024 Albumin [Mass/Vol] 3.0 g/dL Low 3.2-5.0 [facility] Comment on above: Performed By: #### L 100.0100, L501.2450, L500.4050 ####[facility] [address] [place], [address] Albumin/Globulin [Mass ratio] 0.6 {ratio} Low 0.9-2.4 [facility] Comment on above: Performed By: #### L 100.0100, L501.2450, L500.4050 ####[facility] [address] [place], [address] ALK P 90 U/L Normal 45-117 [facility] Comment on above: Performed By: #### L 100.0100, L501.2450, L500.4050 ####[facility] [address] [place], [address] ALT [Catalytic activity/Vol] 16 U/L Normal 16-61 [facility] Comment on above: Performed By: #### L 100.0100, L501.2450, L500.4050 ####[facility] [address] [place], [address] AST [Catalytic activity/Vol] 5 U/L Low 15-37 [facility] Comment on above: Performed By: #### L 100.0100, L501.2450, L500.4050 ####[facility] [address] [place], [address] Bilirubin [Mass/Vol] 0.20 mg/dL Normal 0.20-1.00 [facility] Comment on above: Result Comment: For patients on eltrombopag therapy, use of Dimension [place] TBIL is not recommended. Performed By: #### L 100.0100, L501.2450, L500.4050 ####[facility] [address] [place], [address] BUN/CRE 14.7 RATIO Normal 10-20 [facility] Comment on above: Performed By: #### L 100.0100, L501.2450, L500.4050 ####[facility] [address] [place], [address] CA,Total 9.1 mg/dL Normal 8.5-10.1 [facility] Comment on above: Performed By: #### L 100.0100, L501.2450, L500.4050 ####[facility] [address] [place], [address] Chloride [Moles/Vol] 104 mmol/L Normal 98-107 [facility] Comment on above: Performed By: #### L 100.0100, L501.2450, L500.4050 ####[facility] [address] [place], [address] CO2 [Moles/Vol] 27.0 mmol/L Normal 21.0-32.0 [facility] Comment on above: Performed By: #### L 100.0100, L501.2450, L500.4050 ####[facility] [address] [place], [address] Creatinine [Mass/Vol] 1.09 mg/dL Normal 0.70-1.30 [facility] Comment on above: Result Comment: The validity of the calculated GFR GFRAA in patients over70 years has not been determined. Clinical correlation isessential. Performed By: #### L 100.0100, L501.2450, L500.4050 ####[facility] [address] [place], [address] ECRCL 74.77 ml/min Normal [facility] Comment on above: Performed By: #### L 100.0100, L501.2450, L500.4050 ####[facility] [address] [place], [address] EST GFR - AA 87 mL/min Normal >60 [facility] Comment on above: Result Comment: Afri can Cuban GFR Calc Performed By: #### L 100.0100, L501.2450, L500.4050 ####[facility] [address] [place], [address] GAP 5 Normal 5-15 [facility] Comment on above: Performed By: #### L 100.0100, L501.2450, L500.4050 ####[facility] [address] [place], [address] GFR/1.73 sq M.predicted among non-blacks MDRD (S/P/Bld) [Vol rate/Area] 72 mL/min/{1.73_m2} Normal >60 [facility] Comment on above: Result Comment: Non- GFR Calc Performed By: #### L 100.0100, L501.2450, L500.4050 ####[facility] [address] [place], [address] Globulin (S) [Mass/Vol] 4.7 g/dL High 2.2-4.2 [facility] Comment on above: Performed By: #### L 100.0100, L501.2450, L500.4050 ####[facility] [address] [place], [address] Glucose [Mass/Vol] 158 mg/dL High 74-106 [facility] Comment on above: Result Comment: Fast ing Glucose result greater than or equal to 126 mg/dLsuggests DIABETES MELLITUS per A.D.A. criteria. Performed By: #### L 100.0100, L501.2450, L500.4050 ####[facility] [address] [place], [address] Potassium [Moles/Vol] 4.0 mmol/L Normal 3.5-5.1 [facility] Comment on above: Performed By: #### L 100.0100, L501.2450, L500.4050 ####[facility] [address] [place], [address] Sodium [Moles/Vol] 136 mmol/L Normal 136-145 [facility] Comment on above: Performed By: #### L 100.0100, L501.2450, L500.4050 ####[facility] [address] [place], [address] T PROT 7.7 g/dL Normal 6.4-8.2 [facility] Comment on above: Performed By: #### L 100.0100, L501.2450, L500.4050 ####[facility] [address] [place], [address] Urea nitrogen [Mass/Vol] 16 mg/dL Normal 7-18 [facility] Comment on above: Performed By: #### L 100.0100, L501.2450, L500.4050 ####[facility] [address] [place], [place], [id number] Emergency Department Summary on 05-09-2024 Emergency Department Summary Normal [facility] Eosinophil percentageOrdered By: Aden Stahl on 05-09-2024 Eosinophils/100 WBC (Bld) 1.1 % 0-5 [facility] Erythrocyte distribution wid th ratioOrdered By: Aden Stahl on 05-09-2024 Erythrocyte distribution width (RBC) [Ratio] 16.6 % High 11.6-14.6 [facility] Erythrocyte distribution wid th standard deviationOrdered By: Aden Stahl on 05-09-2024 Erythrocyte distribution width (RBC) [Entitic vol] 53.7 fL High 35.1-43.9 [facility] Erythrocyte distribution width (RBC) [Ratio] 53.7 fl High 35.1-43.9 [facility] Estimated glomerular filtrat ion rate (GFR) AmericanOrdered By: Aden Stahl on 05-09-2024 Estimated GFR (MDRD) Amer 87 mL/min >60 [facility] Comment on above: GFR Calc Estimation of creatinine jc aranceOrdered By: Aden Stahl on 05-09-2024 Estimated Creatinine Clearance Calc 74.77 ml/min [facility] Glomerular filtration rate ( GFR) estimationOrdered By: Aden Stahl on 05-09-2024 Estimated GFR (MDRD) Non-Af Amer 72 mL/min >60 [facility] Comment on above: Non- GFR Calc GFR/1.73 sq M.predicted among non-blacks MDRD (S/P/Bld) [Vol rate/Area] 72 mL/min/{1.73_m2} >60 [facility] Comment on above: Non- GFR Calc Glucose measurementOrdered B y: Aden Harrisona on 05-09-2024 Glucose [Mass/Vol] 158 mg/dL High 74-106 [facility] Comment on above: Fasting Glucose resu lt greater than or equal to 126 mg/dL suggests DIABETES MELLITUS per A.D.A. criteria. Hematocrit Auto (Bld) [Volum e fraction]Ordered By: Aden Stahl on 05-09-2024 Hematocrit (Bld) [Volume fraction] 35.9 % Low 40-54 [facility] Hemoglobin measurementOrdere d By: Aden Stahl on 05-09-2024 Hemoglobin (Bld) [Mass/Vol] 11.4 g/dL Low 13.0-16.5 [facility] Immature granulocytes/100 WB C Auto (Bld)Ordered By: Aden Stahl on 05-09-2024 Immature granulocytes/100 WBC (Bld) 1.100 % High 0.0-0.9 [facility] Comment on above: IG% - Immature Granu locytes (promyelocytes, myelocytes and metamyelocytes) > 1% indicates that a LEFT SHIFT is Present. Laboratory - Chemistry and C hemistry - challengeOrdered By: Aden Stahl on 05-09-2024 AST [Catalytic activity/Vol] 5 U/L Low 15-37 [facility] Lipaseon 05-09-2024 Lipase [Catalytic activity/Vol] 41 U/L Low 73-393 [facility] Comment on above: Performed By: #### L 100.0100, L501.2450, L500.4050 ####[facility] [address] [place], [place], [id number] Lipase measurementOrdered By : Aden Stahl on 05-09-2024 Lipase [Catalytic activity/Vol] 41 U/L Low 73-393 [facility] Lymphocytes Auto (Unsp spec) [#/Vol]Ordered By: Aden Stahl on 05-09-2024 Lymphocytes (Bld) [#/Vol] 1.25 10*3/uL 0.83-4.51 [facility] Lymphocytes/100 WBC Auto (Un sp spec)Ordered By: Aden Stahl on 05-09-2024 Lymphocytes/100 WBC (Bld) 14.3 % Low 19-41 [facility] MCV (mean corpuscular volume ) determinationOrdered By: Aden Stahl on 05-09-2024 MCV (RBC) [Entitic vol] 88.6 fL 80-94 [facility] Mean corpuscular hemoglobin (MCH) determinationOrdered By: Aden Stahl on 05-09-2024 MCH (RBC) [Entitic mass] 28.1 pg 27.0-32.0 [facility] Mean corpuscular hemoglobin concentration (MCHC) determinationOrdered By: Aden Stahl on 05-09-2024 MCHC (RBC) [Mass/Vol] 31.8 g/dL Low 32-36 [facility] Mean platelet volume determi nationOrdered By: Aden Stahl on 05-09-2024 Platelet mean volume (Bld) [Entitic vol] 9.1 fL 6.2-12.0 [facility] Monocyte percentageOrdered B y: Aden Stahl on 05-09-2024 Monocytes/100 WBC (Bld) 7.6 % 0-10 [facility] Neutrophil percentageOrdered By: Aden Stahl on 05-09-2024 Neutrophils/100 WBC (Bld) 75.4 % High 47-70 [facility] Nucleated red blood cell per centageOrdered By: Aden Stahl on 05-09-2024 Nucleated RBC/100 WBC (Bld) [Ratio] 0 % 0-5 [facility] Platelet countOrdered By: Wilner Stahl on 05-09-2024 Platelets (Bld) [#/Vol] 177 10*3/uL 150-450 [facility] Potassium measurementOrdered By: Aden Stahl on 05-09-2024 Potassium [Moles/Vol] 4.0 mmol/L 3.5-5.1 [facility] RBC Auto (Bld) [#/Vol]Ordere d By: Aden Stahl on 05-09-2024 RBC (Bld) [#/Vol] 4.05 10*6/uL Low 4.6-6.2 [facility] Serum anion gap measurementO rdered By: Aden Stahl on 05-09-2024 Anion gap [Moles/Vol] 5 mmol/L 5-15 [facility] Serum globulin measurementOr dered By: Aden Stahl on 05-09-2024 Globulin (S) [Mass/Vol] 4.7 g/dL High 2.2-4.2 [facility] Serum or plasma alanine delaney otransferase (ALT) measurementOrdered By: Aden Stahl on 05-09-2024 ALT [Catalytic activity/Vol] 16 U/L 16-61 [facility] Serum or plasma albumin alfreda urement (mass/volume)Ordered By: Aden Stahl on 05-09-2024 Albumin [Mass/Vol] 3.0 g/dL Low 3.2-5.0 [facility] Serum or plasma alkaline debby sphatase measurementOrdered By: Aden Stahl on 05-09-2024 ALP [Catalytic activity/Vol] 90 U/L 45-117 [facility] Serum or plasma calcium alfreda urement (mass/volume)Ordered By: Aden Stahl on 05-09-2024 Calcium [Mass/Vol] 9.1 mg/dL 8.5-10.1 [facility] Serum or plasma creatinine m easurement (mass/volume)Ordered By: Aden Stahl on 05-09-2024 Creatinine [Mass/Vol] 1.09 mg/dL 0.70-1.30 [facility] Comment on above: The validity of the calculated GFR & GFRAA in patients over 70 years has not been determined. Clinical correlation is essential. Serum or plasma urea nitroge n measurement (mass/volume)Ordered By: Aden Stahl on 05-09-2024 Urea nitrogen [Mass/Vol] 16 mg/dL 7-18 [facility] Sodium levelOrdered By: Aden Stahl on 05-09-2024 Sodium [Moles/Vol] 136 mmol/L 136-145 [facility] Total proteinOrdered By: Kallie Stahl on 05-09-2024 Protein [Mass/Vol] 7.7 g/dL 6.4-8.2 [facility] White blood cell (WBC) count Ordered By: Aden Stahl on 05-09-2024 WBC (Bld) [#/Vol] 8.7 10*3/uL 4.4-11.0 [facility] CNOVon 04-27-2024 CNOV Office Visit (UCWSTR ) REY MEAD ([id number]) 1955 M Date Time Provider Department 04/27/24 8:00 AM [facility] During your visit today, we recorded the following information about you: Temperature Pulse Respiration Blood pressure 97.1 degrees 94/minute 22/minute 129/80 George Perez, ASSISTANCE REPRESENTATIVE.HEAD PASTRY CHEF 04/27/2024 9:07 AM Signed Subjective HPI Nontoxic-appearing [...] SURGICAL HISTORY Procedure Laterality Date BYPASS GRAFT OTHR,QJTLH-YIA-JDO LOBECTOMY, SEGMENT ALLERGIES Patient has no known allergies. MEDICATIONS gabapentin (NEURONTIN) 100 mg capsule Take 1 capsule by mouth daily at bedtime for 30 days. VITAMIN B COMPLEX-100 ORAL Take by mouth. (Patient not taking: Reported on 04/21/2023) fluticasone/umeclidin/vilan ter (TRELEGY ELLIPTA INHALATION) Inhale 1 Puff as instructed once daily. PDLZZGAVRIZ-LFSOTOOOM-LOILV TER INHALATION Inhale as instructed. (Patient not [...] and headaches. (more content not included)... Normal [facility] CNPNon 04-27-2024 CNPN Telephone (HEMKEYUR) REY MEAD ([id number]) 1955 M Date Time Provider Department 04/27/24 VALDEMAR GUTIERREZ During your visit today, we recorded the following information about you: Elena Goldsmith 04/27/2024 10:08 AM Signed Patient called stating he is still in a lot of pain, gabapentin doesn't seem to be helping much. He is asking if we are able to up the dose. Please advise. Patient uses [facility] in [place]. Shilpi Brooks, VIPUL 04/27/2024 10:41 AM Signed Discussed with Dr. Gutierrez, since this is not helping, he would advise evauation with his PCP. VIPUL Castro Cathleen, RN 04/27/2024 1:29 PM Signed Call to patient, no answer, left detailed message on self identified phone with message from Dr. Gutierrez. Instructed to call back if any further questions or concerns. Keiry Brooks RN Allergies As of Date: 04/27/2024 (No [...] 1 Puff as instructed once daily. - PBQDYJDPAYU-PQLBKDKOH-DOSGQ TER INHALATION Inhale as instructed. - ALBUTEROL [...] mass [R91.8] 04/02/2023 Encounter Status:Closed by SHILPI BROOKS on 04/27/24 Normal [facility] XR CHEST 2V FRONTAL/LATon XR CHEST [...] No new consolidation, pleural effusion or pneumothorax Sock Boarder: PSCB Transcribe Date/Time: Apr 27 2024 8:31A Dictated by : RAUL WILSON MD This examination was interpreted and the report reviewed and electronically signed by: RAUL WILSON MD on Apr 27 2024 8:34AM EST [id number] Normal [facility] XR Chest PA and Lateralon IMPRESSION: 1. 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 No new consolidation, pleural effusion or pneumothorax Sock Boarder: [facility] Transcribe Date/Time: Apr 27 2024 8:31A Dictated by : RAUL WILSON MD This examination was interpreted and the report reviewed and electronically signed by: RAUL WILSON MD on Apr 27 2024 8:34AM [facility] DIVISION OF RADIOLOGY * * *Final Report* [...] right rib fracture. DIVISION OF RADIOLOGY Provider, [facility] - 04/27/2024 * * *Final Report* * [...] No new consolidation, pleural effusion or pneumothorax Sock Boarder: PSCB Transcribe Date/Time: Apr 27 2024 8:31A Dictated by : RAUL WILSON MD This examination was interpreted and the report reviewed and electronically signed by: RAUL WILSON MD on Apr 27 2024 8:34AM EST [facility] Radiology Study observation (narrative) [facility] XR Chest PA and LateralOrder ed By: [facility]cf Provider on 04-27-2024 [facility] Echo Complete W/ Contraston 04-06-2024 Echo Complete W/ Contrast Normal [facility] Stress Reporton 04-06-2024 Stress Report Normal [facility] 12 Lead EKG performed by [facility] on 03-22-2024 12 Lead EKG performed by [facility] Normal [facility] Cardiology Visit Reporton Cardiology Visit Report Normal [facility] CNOVSPon 03-07-2024 CNOVSP Visit (SP) Office (H EMAWS) REY MEAD ([id number]) 1955 M Date Time Provider Department 03/07/24 8:30 AM VALDEMAR GUTIERREZ During your visit today, we recorded the following information about you: Temperature Pulse Blood pressure Weight 98.1 degrees 80/minute 120/71 98.2 kg Valdemar Gutierrez MD 03/07/2024 9:15 AM Signed (Elements copied [...] SURGICAL HISTORY Procedure Laterality Date BYPASS GRAFT OTHR,NSFZZ-JHS-DDT LOBECTOMY, SEGMENT FAMILY HISTORY Problem Relation Age of Onset Diabetes Mother Heart Mother Cancer Mother Leukemia Father Colon Cancer Sister Diabetes Sister Emphysema Sister Emphysema Sister Emphysema Sister Emphysema Sister Heart Attack Maternal Grandmother Heart Attack Maternal Grandfather Social History Tobacco Use Smoking status: Former Types: Cigarettes Smokeless tobacco: Never Tobacco comments: Pt smoked 2 packs daily x 49 years, quit 2015 Vaping Use Vaping status: Never Used Substance [...] mouth. (Patient not taking: Reported on 04/21/2023) ODROMFGCTCC-ZIAQSUMEN-KQWIM TER INHALATION Inhale as instructed. (Patient not [...] distress, alert (more content not included)... Normal [facility] CREATININE [facility] 02-18-2024 Creatinine [Mass/Vol] 0.90 mg/dL Normal 0.73-1.22 [facility] [place] [facility] Comment on above: Order Comment: Speci men Type: BLOOD SPECIMENOrdering Facility: [facility] Address: [address] [place] [address] Performed By: #### C RET1 ####[facility]ITAL[facility]CL[facility] [id number] [place] [address] [place] Creatinine and Glomerular filtration rate.predicted panel (S/P/Bld) 94 mL/min/1.73m??? Normal >=60 [facility] Comment on above: Order Comment: Speci men Type: BLOOD SPECIMENOrdering Facility: [facility] Address: [address] [place] [address] Result Comment: Alexia mated Glomerular Filtration Rate [...] actual GFR. Performed By: #### C RET1 ####[facility] [id number] [place] [address] [place] [address] CHEST WO IVCONon 02-18-[address] CHEST WO IVCON * * *Final Report* * * DATE OF EXAM: Feb 18 2024 9:51AM [facility] 0541 - CT CHEST WO IVCON / [...] Stable borderline enlarged middle mediastinal lymph nodes. Sock Boarder: AUREA Transcribe Date/Time: Feb 22 2024 12:31P Dictated by : BRANT PHIPPS MD This examination was interpreted and the report reviewed and electronically signed by: BRANT PHIPPS MD on Feb 22 2024 12:53PM EST [id number] Normal [facility] CNPNon 12-03-2023 [facility] Telephone (RADTWS) ALYCEREY Navjot ([id number]) 1955 M Date Time Provider Department 12/03/23 [facility] RADTWS During your visit today, we recorded the following information about you: Jacy Cao RN 12/03/2023 11:34 AM Signed Pt was scheduled for 1130 phone call today. Pt did not answer, voicemail left for him to call back. Can transfer to ext [facility] for Dr Dunaway's nurse or PSS for [...] (TRELEGY ELLIPTA INHALATION) Inhale as instructed. - QECTEFQPJLV-DBJVHRAAZ-XDZES TER INHALATION Inhale as instructed. 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 Biopsy 04-05-23 [...] SURGICAL HISTORY Procedure Laterality Date BYPASS GRAFT OTHR,TDQJH-EHI-RFW LOBECTOMY, SEGMENT FAMILY HISTORY Problem Relation Age [...] mouth. (Patient not taking: Reported on 04/21/2023) SJEBIBCJYBN-EUNUHMZVU-WERHE TER INHALATION Inhale as instructed. (Patient not [...] which included preparing to see the patient, vvjc-ut-grgt patient care, completing clinical documentation, obtaining and/or reviewing separately obtained history, counseling and educat (more content not included)... Normal [facility] CREATININE BLDon 11-24-2023 Creatinine [Mass/Vol] 1.07 mg/dL Normal 0.73-1.22 [facility] Comment on above: Order Comment: Speci men Type: BLOOD SPECIMENOrdering Facility: [facility] Address: [address] [place] [address] Performed By: #### C RET1 ####[facility] [id number] [place] [address] [place] Creatinine and Glomerular filtration rate.predicted panel (S/P/Bld) 76 mL/min/1.73m??? Normal >=60 [facility] Comment on above: Order Comment: Tata men Type: BLOOD SPECIMENOrdering Facility: [facility] Address: [address] [place] [address] Result Comment: Alexia mated Glomerular Filtration Rate [...] actual GFR. Performed By: #### C RET1 ####[facility] [id number] [place] [address] [place] CHEST W IVCONon 4 CT CHEST W IVCON * * *Final Report* * * DATE OF EXAM: Nov 24 2023 9:10AM [facility] 0539 - CT CHEST W IVCON / [...] right lower lobe and left lung apex Sock Boarder: AUREA Transcribe Date/Time: Nov 26 2023 4:07P Dictated by : RAUL WILSON MD This examination was interpreted and the report reviewed and electronically signed by: RAUL WILSON MD on Nov 26 2023 4:19PM EST [id number] Normal [facility] [place] XR Chest PA and Lateralon [facility] .Auto Diffon 05-31-2023 Basophil, Absolute 0.1 10 3/mcL Normal 0.0-0.2 [facility] ([place] Comment on above: Performed By: #### A PALLAVI, FT4, ADIFF, CMP, LIPID, CBC, A1C, TSH, GFR #### [address] [address] Basophils/100 WBC (Bld) 0.6 % Normal 0.0-2.5 [facility] ([place] Comment on above: Performed By: #### A PALLAVI, FT4, ADIFF, CMP, LIPID, CBC, A1C, TSH, GFR #### [address] [address] Eosinophil, Absolute 0.2 10 3/mcL Normal 0.0-0.4 [facility] [place] Comment on above: Performed By: #### A PALLAVI, FT4, ADIFF, CMP, LIPID, CBC, A1C, TSH, GFR #### [address] [address] Eosinophils/100 WBC (Bld) 2.0 % Normal 0.0-7.0 [facility] ([place] Comment on above: Performed By: #### A PALLAVI, FT4, ADIFF, CMP, LIPID, CBC, A1C, TSH, GFR #### [address] [address] Lymphocyte, Absolute 1.7 10 3/mcL Normal 0.8-3.9 [facility] [place] Comment on above: Performed By: #### A PALLAVI, FT4, ADIFF, CMP, LIPID, CBC, A1C, TSH, GFR #### [address] [address] Lymphocytes/100 WBC (Bld) 18.9 % Normal 10.0-50.0 [facility] ([place] Comment on above: Performed By: #### A PALLAVI, FT4, ADIFF, CMP, LIPID, CBC, A1C, TSH, GFR #### [address] [address] Monocyte, Absolute 0.9 10 3/mcL Normal 0.2-1.0 [facility] ([place] Comment on above: Performed By: #### A PALLAVI, FT4, ADIFF, CMP, LIPID, CBC, A1C, TSH, GFR #### [address] [address] Monocytes/100 WBC (Bld) 10.1 % Normal 1.7-13.0 [facility] ([place] Comment on above: Performed By: #### A PALLAVI, FT4, ADIFF, CMP, LIPID, CBC, A1C, TSH, GFR #### [address] [address] Neutrophils/100 WBC (Bld) 68.4 % Normal 37.0-80.0 [facility] ([place] Comment on above: Performed By: #### A PALLAVI, FT4, ADIFF, CMP, LIPID, CBC, A1C, TSH, GFR #### [address] [address] .GFRon 05-31-2023 GFR Non- 62 ml/min/1.73sqm Normal [facility] ([place] Comment on above: Result Comment: GFR Population [...] CMP, LIPID, CBC, A1C, TSH, GFR #### [address] [address] GFR 75 ml/min/1.73sqm Normal [facility] [place] Comment on above: Result Comment: GFR Population [...] CMP, LIPID, CBC, A1C, TSH, GFR #### [address] [address] .NEUABSon 05-31-2023 Neutrophil, Absolute 6.3 10 3/mcL High 2.9-6.2 [facility] [place] Comment on above: Performed By: #### A PALLAVI, FT4, ADIFF, CMP, LIPID, CBC, A1C, TSH, GFR #### [address] [address] A1Con 05-31-2023 HbA1c (Bld) [Mass fraction] 7.7 % High 4.3-6.4 [facility] ([place] Comment on above: Performed By: #### A PALLAVI, FT4, ADIFF, CMP, LIPID, CBC, A1C, TSH, GFR #### [address] [address] CBCon 05-31-2023 Erythrocyte distribution width (RBC) [Ratio] 16.4 % High 11.5-14.5 [facility] [place] Comment on above: Performed By: #### A PALLAVI, FT4, ADIFF, CMP, LIPID, CBC, A1C, TSH, GFR #### [address] [address] Hematocrit (Bld) [Volume fraction] 38.8 % Low 42.0-52.0 [facility] ([place] Comment on above: Performed By: #### A PALLAVI, FT4, ADIFF, CMP, LIPID, CBC, A1C, TSH, GFR #### [address] [address] Hgb 13.2 G/dL Low 14.0-18.0 [facility] ([place] Comment on above: Performed By: #### A PALLAVI, FT4, ADIFF, CMP, LIPID, CBC, A1C, TSH, GFR #### [address] [address] MCH (RBC) [Entitic mass] 30.5 pg Normal 27.0-31.2 [facility] ([place] Comment on above: Performed By: #### A PALLAVI, FT4, ADIFF, CMP, LIPID, CBC, A1C, TSH, GFR #### [place] [id number] MCHC 34.0 G/dL Normal 31.8-35.4 [facility] [place] Comment on above: Performed By: #### A PALLAVI, FT4, ADIFF, CMP, LIPID, CBC, A1C, TSH, GFR #### [address] [address] MCV (RBC) [Entitic vol] 89.7 fL Normal 80.0-94.0 [facility] ([place] Comment on above: Performed By: #### A PALLAVI, FT4, ADIFF, CMP, LIPID, CBC, A1C, TSH, GFR #### [address] [address] Platelet 178 10 3/mcL Normal 130-400 [facility] ([place] Comment on above: Performed By: #### A PALLAVI, FT4, ADIFF, CMP, LIPID, CBC, A1C, TSH, GFR #### [address] [address] Platelet mean volume (Bld) [Entitic vol] 7.7 fL Normal 7.4-10.4 [facility] ([place] Comment on above: Performed By: #### A PALLAVI, FT4, ADIFF, CMP, LIPID, CBC, A1C, TSH, GFR #### [address] [address] RBC 4.32 10 6/mcL Normal 4.04-6.13 [facility] ([place] Comment on above: Performed By: #### A PALLAVI, FT4, ADIFF, CMP, LIPID, CBC, A1C, TSH, GFR #### [place] [id number] WBC 9.2 10 3/mcL Normal 4.6-10.8 [facility] [place] Comment on above: Performed By: #### A PALLAVI, FT4, ADIFF, CMP, LIPID, CBC, A1C, TSH, GFR #### [place] [address] CMPon 05-31-2023 Albumin Level 3.7 G/dL Normal 3.4-4.8 [facility] ([place] Comment on above: Performed By: #### A PALLAVI, FT4, ADIFF, CMP, LIPID, CBC, A1C, TSH, GFR #### [address] [address] Albumin/Globulin [Mass ratio] 0.9 {ratio} Low 1.1-2.5 [facility] ([place] Comment on above: Performed By: #### A PALLAVI, FT4, ADIFF, CMP, LIPID, CBC, A1C, TSH, GFR #### [address] [address] ALP [Catalytic activity/Vol] 99 U/L Normal 40-135 [facility] ([place] Comment on above: Performed By: #### A PALLAVI, FT4, ADIFF, CMP, LIPID, CBC, A1C, TSH, GFR #### [place] [id number] ALT [Catalytic activity/Vol] 24 U/L Normal 16-63 [facility] ([place] Comment on above: Performed By: #### A PALLAVI, FT4, ADIFF, CMP, LIPID, CBC, A1C, TSH, GFR #### [place] [id number] AST [Catalytic activity/Vol] 13 U/L Normal 10-40 [facility] [place] Comment on above: Performed By: #### A PALLAVI, FT4, ADIFF, CMP, LIPID, CBC, A1C, TSH, GFR #### [address] [address] Bili Total 0.7 mg/dL Normal 0.2-1.0 [facility] ([place] Comment on above: Result Comment: Use of this assay is not recommended for patients undergoing treatment with eltrombopag due to the potential for falsely elevated results. Performed By: #### A PALLAVI, FT4, ADIFF, CMP, LIPID, CBC, A1C, TSH, GFR #### [address] [address] BUN/Creatinine Ratio 15 ratio Normal 7-27 [facility] ([place] Comment on above: Performed By: #### A PALLAVI, FT4, ADIFF, CMP, LIPID, CBC, A1C, TSH, GFR #### [address] [address] Calcium [Mass/Vol] 9.4 mg/dL Normal 8.4-10.2 [facility] ([place]) Comment on above: Performed By: #### A PALLAVI, FT4, ADIFF, CMP, LIPID, CBC, A1C, TSH, GFR #### [address] [address] Chloride [Moles/Vol] 98 mmol/L Normal 98-107 [facility] ([place] Comment on above: Performed By: #### A PALLAVI, FT4, ADIFF, CMP, LIPID, CBC, A1C, TSH, GFR #### [address] [address] CO2 [Moles/Vol] 29 mmol/L Normal 23-31 [facility] ([place] Comment on above: Performed By: #### A PALLAVI, FT4, ADIFF, CMP, LIPID, CBC, A1C, TSH, GFR #### [address] [address] Creatinine [Mass/Vol] 1.18 mg/dL Normal 0.70-1.30 [facility] ([place]) Comment on above: Performed By: #### A PALLAVI, FT4, ADIFF, CMP, LIPID, CBC, A1C, TSH, GFR #### [address] [address] Electrolyte Balance 9.0 mEq/L Normal 4.0-15.0 [facility] ([place]) Comment on above: Performed By: #### A PALLAVI, FT4, ADIFF, CMP, LIPID, CBC, A1C, TSH, GFR #### [address] [address] Globulin 4.2 G/dL Normal [facility] ([place] Comment on above: Performed By: #### A PALLAVI, FT4, ADIFF, CMP, LIPID, CBC, A1C, TSH, GFR #### [address] [address] Glucose [Mass/Vol] 177 mg/dL High 80-115 [facility] ([place] Comment on above: Performed By: #### A PALLAVI, FT4, ADIFF, CMP, LIPID, CBC, A1C, TSH, GFR #### [address] [address] Potassium [Moles/Vol] 4.6 mmol/L Normal 3.5-5.1 [facility] ([place] Comment on above: Performed By: #### A PALLAVI, FT4, ADIFF, CMP, LIPID, CBC, A1C, TSH, GFR #### [address] [address] Sodium [Moles/Vol] 136 mmol/L Normal 136-145 [facility] ([place]) Comment on above: Performed By: #### A PALLAVI, FT4, ADIFF, CMP, LIPID, CBC, A1C, TSH, GFR #### [address] [address] Total Protein 7.9 G/dL Normal 6.4-8.2 [facility] ([place] Comment on above: Performed By: #### A PALLAVI, FT4, ADIFF, CMP, LIPID, CBC, A1C, TSH, GFR #### [place] [address] [place], [place] [address] Urea nitrogen [Mass/Vol] 18 mg/dL Normal 7-18 [facility] ([place] Comment on above: Performed By: #### A PALLAVI, FT4, ADIFF, CMP, LIPID, CBC, A1C, TSH, GFR #### [place] [id number] [place], [place] [address] FT4on 05-31-2023 Free T4 [Mass/Vol] 1.02 ng/dL Normal 0.76-1.46 [facility] ([place]) Comment on above: Performed By: #### A PALLAVI, FT4, ADIFF, CMP, LIPID, CBC, A1C, TSH, GFR #### [place] [id number] [place], [place] [address] LABORATORYOrdered By: SYSTEM SYSTEM on 05-31-2023 Albumin [...] 05-31-2023 Cholesterol [Mass/Vol] 103 mg/dL Normal 0-200 [facility] Comment on above: Result Comment: Chol esterol Reference Interval: Less than 200 Desirable 200-239 Borderline high risk 240 and above High risk Performed By: #### A PALLAVI, FT4, ADIFF, CMP, LIPID, CBC, A1C, TSH, GFR #### [address] [address] Cholesterol in HDL [Mass/Vol] 42 mg/dL Normal 40-60 [facility] ([place] Comment on above: Performed By: #### A PALLAVI, FT4, ADIFF, CMP, LIPID, CBC, A1C, TSH, GFR #### [place] [id number] [place], [place] [address] Cholesterol in LDL [Mass/Vol] 31 mg/dL Normal 0-130 [facility] ([place] Comment on above: Performed By: #### A PALLAVI, FT4, ADIFF, CMP, LIPID, CBC, A1C, TSH, GFR #### [place] [id number] [place], [place] [address] Triglyceride [Mass/Vol] 152 mg/dL High 0-150 [facility] [place] Comment on above: Result Comment: Trig lyceride Reference Interval: Less than 150 Normal 150-199 Borderline high risk 200-499 High risk 500 or higher Very high risk Performed By: #### A PALLAVI, FT4, ADIFF, CMP, LIPID, CBC, A1C, TSH, GFR #### [place] [id number] [place], [place] [address] TSHon 05-31-2023 TSH Qn 1.05 m[IU]/L Normal 0.36-3.74 [facility] ([place] Comment on above: Performed By: #### A PALLAVI, FT4, ADIFF, CMP, LIPID, CBC, A1C, TSH, GFR #### [address] [address] MR Brain WO and W contrast I Von 05-07-2023 [facility] Body fluid appearanceOrdered By: Romain Hurd on 01-13-2023 Appearance (Body fld) CLOUDY [facility] Body fluid color determinati onOrdered By: Romain Hurd on 01-13-2023 Color (Body fld) PINK [facility] Body fluid leukocytes count (number/volume)Ordered By: Romain Hurd on 01-13-2023 WBC (Body fld) [#/Vol] 446 /mm3 [facility] Body fluid lymphocytes/100 l eukocytesOrdered By: Romain Hurd on 01-13-2023 Lymphocytes/100 WBC (Body fld) 3 % [facility] Body fluid segmented neutrop hils count (number/volume)Ordered By: Romain Hurd on 01-13-2023 Segmented neutrophils (Body fld) [#/Vol] 64 % [facility] Cytology report of Body flui d Cyto stainOrdered By: Romain Hurd on 01-13-2023 Cytology report Cyto stain Doc (Body fld) SEE PATHOLOGY REPORT [facility] Comment on above: Specimen submitted t o Anatomical Pathology Department for testing. Glucose Glucometer (BldC) [M ass/Vol]Ordered By: Romain Hurd on 01-13-2023 Glucose [Mass/Vol] 133 mg/dL 74-106 [facility] Comment on above: MANAGEMENT OF PATIEN T CARE PER NURSING PROTOCOL No Panel InformationOrdered By: Romain Hurd on 01-13-2023 Body Fluid Comment 2 Not Reportable [facility] Body Fluid Pathologist Comment Reviewed [facility] Comment on above: Previous reported re sult: May follow Edited by: KASSIE on 01/14/23:1357Negative for malignant cells.You Maxwell M.D. 01/14/23 AMENDED REPORT 01/14/23 1357 PATH COMM/BF previously reported as: May follow Body Fluid RBC 1525 /mm3 [facility] Specimen source identificati on of body fluidOrdered By: Romain Hurd on 01-13-2023 Specimen source Nom (Body fld) BRONCHIAL LAVAGE [facility] Thin prep Papanicolaou smear with manual screeningOrdered By: Romain Hurd on 01-13-2023 Thin prep Papanicolaou smear with manual screening 33 % [facility] Comment on above: LINING CELLSPrevious reported result: 33 %Edited by: LIZBETH on 01/13/23:2016 Total cell countOrdered By: Romain Hurd on 01-13-2023 Cells counted Molgen (Bld/Tiss) [#] TNP [facility] Comment on above: Test not performed .GFRon 12-03-2022 GFR 62 ml/min/1.73sqm Normal [facility] [place] Comment on above: Result Comment: GFR Population [...] CMP, LIPID, CBC, A1C, TSH, GFR #### [address] [address] GFR Non- 51 ml/min/1.73sqm Normal [facility] ([place] Comment on above: Result Comment: GFR Population [...] CMP, LIPID, CBC, A1C, TSH, GFR #### [address] [address] A1Con 12-03-2022 HbA1c (Bld) [Mass fraction] 7.2 % High 4.3-6.4 [facility] ([place] Comment on above: Performed By: #### G FR, CMP, LIPID, TSH, A1C, VIDH, FT4 #### [address] [address] CMPon 12-03-2022 Albumin Level 4.1 G/dL Normal 3.4-4.8 [facility] ([place] Comment on above: Performed By: #### A PALLAVI, FT4, ADIFF, CMP, LIPID, CBC, A1C, TSH, GFR #### [address] [address] Albumin/Globulin [Mass ratio] 1.0 {ratio} Low 1.1-2.5 [facility] ([place] Comment on above: Performed By: #### A PALLAVI, FT4, ADIFF, CMP, LIPID, CBC, A1C, TSH, GFR #### [address] [address] ALP [Catalytic activity/Vol] 94 U/L Normal 40-135 [facility] ([place] Comment on above: Performed By: #### A PALLAVI, FT4, ADIFF, CMP, LIPID, CBC, A1C, TSH, GFR #### [address] [address] ALT [Catalytic activity/Vol] 36 U/L Normal 16-63 [facility] ([place] Comment on above: Performed By: #### A PALLAVI, FT4, ADIFF, CMP, LIPID, CBC, A1C, TSH, GFR #### [address] [address] AST [Catalytic activity/Vol] 18 U/L Normal 10-40 [facility] ([place] Comment on above: Performed By: #### A PALLAVI, FT4, ADIFF, CMP, LIPID, CBC, A1C, TSH, GFR #### [address] [address] Bili Total 0.7 mg/dL Normal 0.2-1.0 [facility] ([place] Comment on above: Result Comment: Use of this assay is not recommended for patients undergoing treatment with eltrombopag due to the potential for falsely elevated results. Performed By: #### A PALLAVI, FT4, ADIFF, CMP, LIPID, CBC, A1C, TSH, GFR #### [address] [address] BUN/Creatinine Ratio 18 ratio Normal 7-27 [facility] ([place] Comment on above: Performed By: #### A PALLAVI, FT4, ADIFF, CMP, LIPID, CBC, A1C, TSH, GFR #### [address] [address] Calcium [Mass/Vol] 9.1 mg/dL Normal 8.4-10.2 [facility] ([place]) Comment on above: Performed By: #### A PALLAVI, FT4, ADIFF, CMP, LIPID, CBC, A1C, TSH, GFR #### [address] [address] Chloride [Moles/Vol] 98 mmol/L Normal 98-107 [facility] ([place] Comment on above: Performed By: #### A PALLAVI, FT4, ADIFF, CMP, LIPID, CBC, A1C, TSH, GFR #### [address] [address] CO2 [Moles/Vol] 27 mmol/L Normal 23-31 [facility] ([place]) Comment on above: Performed By: #### A PALLAVI, FT4, ADIFF, CMP, LIPID, CBC, A1C, TSH, GFR #### [address] [address] Creatinine [Mass/Vol] 1.39 mg/dL High 0.70-1.30 [facility] ([place]) Comment on above: Performed By: #### A PALLAVI, FT4, ADIFF, CMP, LIPID, CBC, A1C, TSH, GFR #### [address] [address] Electrolyte Balance 12.0 mEq/L Normal 4.0-15.0 [facility] ([place]) Comment on above: Performed By: #### A PALLAVI, FT4, ADIFF, CMP, LIPID, CBC, A1C, TSH, GFR #### [address] [address] Globulin 4.1 G/dL Normal [facility] ([place]) Comment on above: Performed By: #### A PALLAVI, FT4, ADIFF, CMP, LIPID, CBC, A1C, TSH, GFR #### [address] [address] Glucose [Mass/Vol] 208 mg/dL High 80-115 [facility] ([place]) Comment on above: Performed By: #### A PALLAVI, FT4, ADIFF, CMP, LIPID, CBC, A1C, TSH, GFR #### [address] [address] Potassium [Moles/Vol] 4.1 mmol/L Normal 3.5-5.1 [facility] ([place]) Comment on above: Performed By: #### A PALLAVI, FT4, ADIFF, CMP, LIPID, CBC, A1C, TSH, GFR #### [address] [address] Sodium [Moles/Vol] 137 mmol/L Normal 136-145 [facility] ([place]) Comment on above: Performed By: #### A PALLAVI, FT4, ADIFF, CMP, LIPID, CBC, A1C, TSH, GFR #### [address] [address] Total Protein 8.2 G/dL Normal 6.4-8.2 [facility] ([place]) Comment on above: Performed By: #### A PALLAVI, FT4, ADIFF, CMP, LIPID, CBC, A1C, TSH, GFR #### [address] [address] Urea nitrogen [Mass/Vol] 25 mg/dL High 7-18 [facility] ([place] Comment on above: Performed By: #### A PALLAVI, FT4, ADIFF, CMP, LIPID, CBC, A1C, TSH, GFR #### [address] [address] FT4on 12-03-2022 Free T4 [Mass/Vol] 0.90 ng/dL Normal 0.76-1.46 [facility] ([place]) Comment on above: Performed By: #### A PALLAVI, FT4, ADIFF, CMP, LIPID, CBC, A1C, TSH, GFR #### [address] [address] LABORATORYOrdered By: Catherine Esposito on 12-03-2022 Albumin [...] 12-03-2022 Cholesterol [Mass/Vol] 139 mg/dL Normal 0-200 [facility] [place] Comment on above: Result Comment: Chol esterol Reference Interval: Less than 200 Desirable 200-239 Borderline high risk 240 and above High risk Performed By: #### A PALLAVI, FT4, ADIFF, CMP, LIPID, CBC, A1C, TSH, GFR #### [address] [address] Cholesterol in HDL [Mass/Vol] 43 mg/dL Normal 40-60 [facility] ([place] Comment on above: Performed By: #### A PALLAVI, FT4, ADIFF, CMP, LIPID, CBC, A1C, TSH, GFR #### [address] [address] Cholesterol in LDL [Mass/Vol] 48 mg/dL Normal 0-130 [facility] ([place] Comment on above: Performed By: #### A PALLAVI, FT4, ADIFF, CMP, LIPID, CBC, A1C, TSH, GFR #### [address] [address] Triglyceride [Mass/Vol] 241 mg/dL High 0-150 [facility] ([place]) Comment on above: Result Comment: Trig lyceride Reference Interval: Less than 150 Normal 150-199 Borderline high risk 200-499 High risk 500 or higher Very high risk Performed By: #### A PALLAVI, FT4, ADIFF, CMP, LIPID, CBC, A1C, TSH, GFR #### [address] [address] MALBRon 12-03-2022 U Creatinine <13.0 Low 39.0-259.0 [facility] ([place]) Comment on above: Performed By: #### A PALLAVI, FT4, ADIFF, CMP, LIPID, CBC, A1C, TSH, GFR #### [address] [address] U Microalb <130 Normal [facility] ([place]) Comment on above: Performed By: #### A PALLAVI, FT4, ADIFF, CMP, LIPID, CBC, A1C, TSH, GFR #### [address] [address] U Ratio Alb/Cre Unable to Calcu Normal 0-30 [facility] ([place]) Comment on above: Performed By: #### A PALLAVI, FT4, ADIFF, CMP, LIPID, CBC, A1C, TSH, GFR #### [address] [address] TSHon 12-03-2022 TSH Qn 1.90 m[IU]/L Normal 0.36-3.74 [facility]) Comment on above: Performed By: #### A PALLAVI, FT4, ADIFF, CMP, LIPID, CBC, A1C, TSH, GFR #### [address] [address] VIDHon 12-03-2022 Vit. D 25-Hydroxy 56.8 ng/mL Normal [facility] ([place]) Comment on above: Result Comment: Inte rpretive Values Based on Total 25(OH) Vitamin D: Deficient <20 ng/mL Insufficient 20 - <30 ng/mL Sufficient 30-100 ng/mL Performed By: #### A PALLAVI, FT4, ADIFF, CMP, LIPID, CBC, A1C, TSH, GFR #### [address] [address] .GFRon 06-01-2022 GFR 71 ml/min/1.73sqm Normal [facility] ([place]) Comment on above: Result Comment: GFR Population [...] CMP, LIPID, CBC, A1C, TSH, GFR #### [address] [address] GFR Non- 59 ml/min/1.73sqm Normal [facility] ([place]) Comment on above: Result Comment: GFR Population [...] CMP, LIPID, CBC, A1C, TSH, GFR #### [address] [address] A1Con 06-01-2022 HbA1c (Bld) [Mass fraction] 7.2 % High 4.3-6.4 [facility] ([place]) Comment on above: Performed By: #### A PALLAVI, FT4, ADIFF, CMP, LIPID, CBC, A1C, TSH, GFR #### [address] [address] CMPon 06-01-2022 Albumin Level 3.9 G/dL Normal 3.4-4.8 [facility] ([place] Comment on above: Performed By: #### A PALLAVI, FT4, ADIFF, CMP, LIPID, CBC, A1C, TSH, GFR #### [address] [address] Albumin/Globulin [Mass ratio] 1.1 {ratio} Normal 1.1-2.5 [facility] ([place]) Comment on above: Performed By: #### A PALLAVI, FT4, ADIFF, CMP, LIPID, CBC, A1C, TSH, GFR #### [address] [address] ALP [Catalytic activity/Vol] 98 U/L Normal 40-135 [facility] ([place] Comment on above: Performed By: #### A PALLAVI, FT4, ADIFF, CMP, LIPID, CBC, A1C, TSH, GFR #### [address] [address] ALT [Catalytic activity/Vol] 34 U/L Normal 16-63 [facility] ([place]) Comment on above: Performed By: #### A PALLAVI, FT4, ADIFF, CMP, LIPID, CBC, A1C, TSH, GFR #### [address] [address] AST [Catalytic activity/Vol] 13 U/L Normal 10-40 [facility] ([place]) Comment on above: Performed By: #### A PALLAVI, FT4, ADIFF, CMP, LIPID, CBC, A1C, TSH, GFR #### [address] [address] Bili Total 0.6 mg/dL Normal 0.2-1.0 [facility] ([place]) Comment on above: Result Comment: Use of this assay is not recommended for patients undergoing treatment with eltrombopag due to the potential for falsely elevated results. Performed By: #### A PALLAVI, FT4, ADIFF, CMP, LIPID, CBC, A1C, TSH, GFR #### [address] [address] BUN/Creatinine Ratio 17 ratio Normal 7-27 [facility] ([place]) Comment on above: Performed By: #### A PALLAVI, FT4, ADIFF, CMP, LIPID, CBC, A1C, TSH, GFR #### [address] [address] Calcium [Mass/Vol] 8.9 mg/dL Normal 8.4-10.2 [facility] ([place]) Comment on above: Performed By: #### A PALLAVI, FT4, ADIFF, CMP, LIPID, CBC, A1C, TSH, GFR #### [address] [address] Chloride [Moles/Vol] 97 mmol/L Low 98-107 [facility] ([place] Comment on above: Performed By: #### A PALLAVI, FT4, ADIFF, CMP, LIPID, CBC, A1C, TSH, GFR #### [address] [address] CO2 [Moles/Vol] 29 mmol/L Normal 23-31 [facility] ([place] Comment on above: Performed By: #### A PALLAVI, FT4, ADIFF, CMP, LIPID, CBC, A1C, TSH, GFR #### [address] [address] Creatinine [Mass/Vol] 1.23 mg/dL Normal 0.70-1.30 [facility] ([place]) Comment on above: Performed By: #### A PALLAVI, FT4, ADIFF, CMP, LIPID, CBC, A1C, TSH, GFR #### [address] [address] Electrolyte Balance 7.0 mEq/L Normal 4.0-15.0 [facility] ([place]) Comment on above: Performed By: #### A PALLAVI, FT4, ADIFF, CMP, LIPID, CBC, A1C, TSH, GFR #### [address] [address] Globulin 3.5 G/dL Normal [facility] ([place]) Comment on above: Performed By: #### A PALLAVI, FT4, ADIFF, CMP, LIPID, CBC, A1C, TSH, GFR #### [address] [address] Glucose [Mass/Vol] 172 mg/dL High 80-115 [facility] ([place]) Comment on above: Performed By: #### A PALLAVI, FT4, ADIFF, CMP, LIPID, CBC, A1C, TSH, GFR #### [address] [address] Potassium [Moles/Vol] 4.5 mmol/L Normal 3.5-5.1 [facility] ([place]) Comment on above: Performed By: #### A PALLAVI, FT4, ADIFF, CMP, LIPID, CBC, A1C, TSH, GFR #### [address] [address] Sodium [Moles/Vol] 133 mmol/L Low 136-145 [facility] ([place]) Comment on above: Performed By: #### A PALLAVI, FT4, ADIFF, CMP, LIPID, CBC, A1C, TSH, GFR #### [address] [address] Total Protein 7.4 G/dL Normal 6.4-8.2 [facility]) Comment on above: Performed By: #### A PALLAVI, FT4, ADIFF, CMP, LIPID, CBC, A1C, TSH, GFR #### [address] [address] Urea nitrogen [Mass/Vol] 21 mg/dL High 7-18 [facility]) Comment on above: Performed By: #### A PALLAVI, FT4, ADIFF, CMP, LIPID, CBC, A1C, TSH, GFR #### [address] [address] LABORATORYOrdered By: SYSTEM SYSTEM on 06-01-2022 Albumin [...] 06-01-2022 Cholesterol [Mass/Vol] 122 mg/dL Normal 0-200 [facility] [place] Comment on above: Result Comment: Chol esterol Reference Interval: Less than 200 Desirable 200-239 Borderline high risk 240 and above High risk Performed By: #### A PALLAVI, FT4, ADIFF, CMP, LIPID, CBC, A1C, TSH, GFR #### [address] [address] Cholesterol in HDL [Mass/Vol] 41 mg/dL Normal 40-60 [facility] ([place] Comment on above: Performed By: #### A PALLAVI, FT4, ADIFF, CMP, LIPID, CBC, A1C, TSH, GFR #### [address] [address] Cholesterol in LDL [Mass/Vol] 48 mg/dL Normal 0-130 [facility] ([place] Comment on above: Performed By: #### A PALLAVI, FT4, ADIFF, CMP, LIPID, CBC, A1C, TSH, GFR #### [address] [address] Triglyceride [Mass/Vol] 164 mg/dL High 0-150 [facility] [place] Comment on above: Result Comment: Trig lyceride Reference Interval: Less than 150 Normal 150-199 Borderline high risk 200-499 High risk 500 or higher Very high risk Performed By: #### A PALLAVI, FT4, ADIFF, CMP, LIPID, CBC, A1C, TSH, GFR #### [address] [address] TSHon 06-01-2022 TSH Qn 1.29 m[IU]/L Normal 0.36-3.74 [facility] ([place]) Comment on above: Performed By: #### A PALLAVI, FT4, ADIFF, CMP, LIPID, CBC, A1C, TSH, GFR #### [address] [address] VIDHon 06-01-2022 Vit. D 25-Hydroxy 65.0 ng/mL Normal [facility] ([place]) Comment on above: Result Comment: Inte rpretive Values Based on Total 25(OH) Vitamin D: Deficient <20 ng/mL Insufficient 20 - <30 ng/mL Sufficient 30-100 ng/mL Performed By: #### A PALLAVI, FT4, ADIFF, CMP, LIPID, CBC, A1C, TSH, GFR #### [address] [address] LABORATORYOrdered By: Adan Duffy on 01-09-2022 Albumin [...] ADM SS LABORATORYOrdered By: SYSTEM SYSTEM on 01-09-2022 GFR 72 ml/min/1.73sqm Invalid Interpretation Code AO Chemistry S GFR Non- 59 ml/min/1.73sqm Invalid Interpretation Code AO Chemistry S LABORATORYOrdered By: Adan Duffy on 11-07-2021 Creatinine [Mass/Vol] 1.21 mg/dL Invalid Interpretation Code 0.70 - 1.30 mg/dL AO ADM SS LABORATORYOrdered By: SYSTEM SYSTEM on 11-07-2021 GFR 73 ml/min/1.73sqm Invalid [...] Time Vital Sign Value Performing Clinician Facility 10-26-2024 23:04-0400 Body temperature 97.2 [degF] Dr. Angelica Rodriguez MD Work Phone: [facility] 10-26-2024 23:04-0400 Diastolic blood pressure 66 mm[Hg] Dr. Angelica Rodriguez MD Work Phone: [facility] 10-26-2024 23:04-0400 Heart rate 90 /min Dr. Angelica Rodriguez MD Work Phone: [facility] 10-26-2024 23:04-0400 Respiratory rate 19 /min Dr. Angelica Rodriguez MD Work Phone: [facility] 10-26-2024 23:04-0400 SaO2% (BldA) [Mass fraction] 97 % Dr. Angelica Rodriguez MD Work Phone: [facility] 10-26-2024 23:04-0400 Systolic blood pressure 121 mm[Hg] Dr. Angelica Rodriguez MD Work Phone: [facility] 10-26-2024 22:00-0400 Inhaled oxygen flow rate 3 L/min Dr. Angelica Rodriguez MD Work Phone: [facility] 10-26-2024 16:57-0400 Body height 175.[address] Angelica Rodriguez MD Work Phone: [facility] 10-19-2024 20:22-0400 Body temperature 97.8 [degF] Dr. Angelica Rodriguez MD Work Phone: [facility] 10-19-2024 20:22-0400 Diastolic blood pressure 63 mm[Hg] Dr. Angelica Rodriguez MD Work Phone: [facility] 10-19-2024 20:22-0400 Heart rate 88 /min Dr. Angelica Rodriguez MD Work Phone: [facility] 10-19-2024 20:22-0400 Respiratory rate 19 /min Dr. Angelica Rodriguez MD Work Phone: [facility] 10-19-2024 20:22-0400 SaO2% (BldA) [Mass fraction] 99 % Dr. Angelica Rodriguez MD Work Phone: [facility] 10-19-2024 20:22-0400 Systolic blood pressure 122 mm[Hg] Dr. Angelica Rodriguez MD Work Phone: [facility] 10-19-2024 20:00-0400 Inhaled oxygen flow rate 3 L/min Dr. Angelica Rodriguez MD Work Phone: [facility] 10-19-2024 15:08-0400 Body height 175.[address] Angelica Rodriguez MD Work Phone: [facility] 10-19-2024 15:08-0400 Body mass index (BMI) [Ratio] 22.8 kg/m2 Dr. Angelica Rodriguez MD Work Phone: [facility] 10-19-2024 15:08-0400 Body weight 70.[address] Angelica Rodriguez MD Work Phone: [facility] 10-09-2024 10:30-0400 Body temperature 97.39 [degF] Va Dunaway MD Work Phone: [facility] 10-09-2024 10:30-0400 Diastolic blood pressure 53 mm[Hg] Va Dunaway MD Work Phone: [facility] Comment on above: 94/59 10-09-2024 10:30-0400 Heart rate 96 /min Va Dunaway MD Work Phone: [facility] 10-09-2024 10:30-0400 Respiratory rate 20 /min Va Dunaway MD Work Phone: [facility] 10-09-2024 10:30-0400 SaO2% (BldA) [Mass fraction] 98 % Va Dunaway MD Work Phone: [facility] 10-09-2024 10:30-0400 Systolic blood pressure 87 mm[Hg] Va Dunaway MD Work Phone: [facility] Comment on above: 94/59 10-05-2024 23:20-0400 Body temperature 98 [degF] Dr. Angelica Rodriguez MD Work Phone: [facility] 10-05-2024 23:20-0400 Diastolic blood pressure 67 mm[Hg] Dr. Angelica Rodriguez MD Work Phone: [facility] 10-05-2024 23:20-0400 Heart rate 88 /min Dr. Angelica Rodriguez MD Work Phone: [facility] 10-05-2024 23:20-0400 Respiratory rate 21 /min Dr. Angelica Rodriguez MD Work Phone: [facility] 10-05-2024 23:20-0400 SaO2% (BldA) [Mass fraction] 99 % Dr. Angelica Rodriguez MD Work Phone: [facility] 10-05-2024 23:20-0400 Systolic blood pressure 131 mm[Hg] Dr. Angelica Rodriguez MD Work Phone: [facility] 10-05-2024 23:14-0400 Inhaled oxygen flow rate 3 L/min Dr. Angelica Rodriguez MD Work Phone: [facility] 10-05-2024 16:04-0400 Body mass index (BMI) [Ratio] 25.9 kg/m2 Dr. Angelica Rodriguez MD Work Phone: [facility] 10-05-2024 16:04-0400 Body weight 79.[address] nAgelica Rodriguez MD Work Phone: [facility] 10-05-2024 10:15-0400 Body mass index (BMI) [Ratio] 24 kg/m2 Dr. Angelica Rodriguez MD Work Phone: [facility] 10-05-2024 10:15-0400 Body temperature 95.3 [degF] Dr. Angelica Rodriguez MD Work Phone: [facility] 10-05-2024 10:15-0400 Body weight 73.[address] Angelica Rodriguez MD Work Phone: [facility] 10-05-2024 10:15-0400 Diastolic blood pressure 40 mm[Hg] Dr. Angelica Rodriguez MD Work Phone: [facility] 10-05-2024 10:15-0400 Heart rate 107 /min Dr. Angelica Rodriguez MD Work Phone: [facility] 10-05-2024 10:15-0400 Inhaled oxygen flow rate 3 L/min Dr. Angelica Rodriguez MD Work Phone: [facility] 10-05-2024 10:15-0400 Respiratory rate 16 /min Dr. Angelica Rodriguez MD Work Phone: [facility] 10-05-2024 10:15-0400 SaO2% (BldA) [Mass fraction] 97 % Dr. Angelica Rodriguez MD Work Phone: [facility] 10-05-2024 10:15-0400 Systolic blood pressure 75 mm[Hg] Dr. Angelica Rodriguez MD Work Phone: [facility] 09-25-2024 17:13-0400 Body temperature 98.2 [degF] Dr. Angelica Rodriguez MD Work Phone: [facility] 09-25-2024 17:13-0400 Diastolic blood pressure 66 mm[Hg] Dr. Angelica Rodriguez MD Work Phone: [facility] 09-25-2024 17:13-0400 Heart rate 92 /min Dr. Angelica Rodriguez MD Work Phone: [facility] 09-25-2024 17:13-0400 Inhaled oxygen flow rate 3 L/min Dr. Angelica Rodriguez MD Work Phone: [facility] 09-25-2024 17:13-0400 Respiratory rate 17 /min Dr. Angelica Rodriguez MD Work Phone: [facility] 09-25-2024 17:13-0400 SaO2% (BldA) [Mass fraction] 100 % Dr. Angelica Rodriguez MD Work Phone: [facility] 09-25-2024 17:13-0400 Systolic blood pressure 121 mm[Hg] Dr. Angelica Rodriguez MD Work Phone: [facility] 09-25-2024 04:59-0400 Body mass index (BMI) [Ratio] 25.5 kg/m2 Dr. Angelica Rodriguez MD Work Phone: [facility] 09-25-2024 04:59-0400 Body weight 78.[address] Angelica Rodriguez MD Work Phone: [facility] 09-11-2024 16:00-0400 Body temperature 97.5 [degF] Dr. Angelica Rodriguez MD Work Phone: [facility] 09-11-2024 16:00-0400 Diastolic blood pressure 74 mm[Hg] Dr. Angelica Rodriguez MD Work Phone: [facility] 09-11-2024 16:00-0400 Heart rate 90 /min Dr. Angelica Rodriguez MD Work Phone: [facility] 09-11-2024 16:00-0400 Respiratory rate 16 /min Dr. Angelica Rodriguez MD Work Phone: [facility] 09-11-2024 16:00-0400 SaO2% (BldA) [Mass fraction] 93 % Dr. Angelica Rodriguez MD Work Phone: [facility] 09-11-2024 16:00-0400 Systolic blood pressure 143 mm[Hg] Dr. Angelica Rodriguez MD Work Phone: [facility] 09-11-2024 11:02-0400 Inhaled oxygen flow rate 3 L/min Dr. Angelica Rodriguez MD Work Phone: [facility] 09-11-2024 03:14-0400 Body mass index (BMI) [Ratio] 27 kg/m2 Dr. Angelica Rodriguez MD Work Phone: [facility] 09-11-2024 03:14-0400 Body weight 83.[address] Angelica Rodriguez MD Work Phone: [facility] 09-10-2024 11:31-0400 Body height 175.[address] Angelica Rodriguez MD Work Phone: [facility] 09-04-2024 16:14-0400 Body height 175.[address] Angelica Rodriguez MD Work Phone: [facility] 09-04-2024 16:14-0400 Body mass index (BMI) [Ratio] 17.4 kg/m2 Dr. Angelica Rodriguez MD Work Phone: [facility] 09-04-2024 16:14-0400 Body weight 53.[address] Angelica Rodriguez MD Work Phone: [facility] 09-04-2024 16:03-0400 Body temperature 99.6 [degF] Dr. Angelica Rodriguez MD Work Phone: [facility] 09-04-2024 16:03-0400 Diastolic blood pressure 69 mm[Hg] Dr. Angelica Rodriguez MD Work Phone: [facility] 09-04-2024 16:03-0400 Heart rate 121 /min Dr. Angelica Rodriguez MD Work Phone: [facility] 09-04-2024 16:03-0400 Respiratory rate 25 /min Dr. Angelica Rodriguez MD Work Phone: [facility] 09-04-2024 16:03-0400 SaO2% (BldA) [Mass fraction] 92 % Dr. Angelica Rodriguez MD Work Phone: [facility] 09-04-2024 16:03-0400 Systolic blood pressure 103 mm[Hg] Dr. Angelica Rodriguez MD Work Phone: [facility] 08-28-2024 13:03-0400 Body temperature 97.39 [degF] Jonh Munoz MD Work Phone: [facility] 08-28-2024 13:03-0400 Diastolic blood pressure 48 mm[Hg] Jonh Munoz MD Work Phone: [facility] 08-28-2024 13:03-0400 Heart rate 77 /min Jonh Munoz MD Work Phone: [facility] 08-28-2024 13:03-0400 Respiratory rate 15 /min Jonh Munoz MD Work Phone: [facility] 08-28-2024 13:03-0400 SaO2% (BldA) [Mass fraction] 97 % Jonh Munoz MD Work Phone: [facility] 08-28-2024 13:03-0400 Systolic blood pressure 90 mm[Hg] Jonh Munoz MD Work Phone: [facility] 08-17-2024 11:48-0400 Body mass index (BMI) [Ratio] 26.79 kg/m2 Valdemar Gutierrez MD Work Phone: [facility] 08-17-2024 11:48-0400 Body temperature 97.3 [degF] Valdemar Gutierrez MD Work Phone: [facility] 08-17-2024 11:48-0400 Body weight 83.92 kg Valdemar Gutierrez MD Work Phone: [facility] 08-17-2024 11:48-0400 Diastolic blood pressure 65 mm[Hg] Valdemar Gutierrez MD Work Phone: [facility] 08-17-2024 11:48-0400 Heart rate 94 /min Valdemar Gutierrez MD Work Phone: [facility] 08-17-2024 11:48-0400 SaO2% (BldA) [Mass fraction] 98 % Valdemar Gutierrez MD Work Phone: [facility] 08-17-2024 11:48-0400 Systolic blood pressure 109 mm[Hg] Valdemar Gutierrez MD Work Phone: [facility] 07-24-2024 10:08-0400 Body temperature 97.5 [degF] Dr. Angelica Rodriguez MD Work Phone: [facility] 07-24-2024 10:08-0400 Body weight 84.[address] Angelica Rodriguez MD Work Phone: [facility] 07-24-2024 10:08-0400 Diastolic blood pressure 67 mm[Hg] Dr. Angelica Rodriguez MD Work Phone: [facility] 07-24-2024 10:08-0400 Heart rate 106 /min Dr. Angelica Rodriguez MD Work Phone: [facility] 07-24-2024 10:08-0400 Respiratory rate 16 /min Dr. Angelica Rodriguez MD Work Phone: [facility] 07-24-2024 10:08-0400 SaO2% (BldA) [Mass fraction] 96 % Dr. Angelica Rodriguez MD Work Phone: [facility] 07-24-2024 10:08-0400 Systolic blood pressure 108 mm[Hg] Dr. Angelica Rodriguez MD Work Phone: [facility] 07-13-2024 09:28-0400 Body mass index (BMI) [Ratio] 28.09 kg/m2 Valdemar Gutierrez MD Work Phone: [facility] 07-13-2024 09:28-0400 Body temperature 97.7 [degF] Valdemar Gutierrez MD Work Phone: [facility] 07-13-2024 09:28-0400 Body weight 88 kg Valdemar Gutierrez MD Work Phone: [facility] 07-13-2024 09:28-0400 Diastolic blood pressure 69 mm[Hg] Valdemar Gutierrez MD Work Phone: [facility] 07-13-2024 09:28-0400 Heart rate 89 /min Valdemar Gutierrez MD Work Phone: [facility] 07-13-2024 09:28-0400 Respiratory rate 12 /min Valdemar Gutierrez MD Work Phone: [facility] 07-13-2024 09:28-0400 SaO2% (BldA) [Mass fraction] 98 % Valdemar Gutierrez MD Work Phone: [facility] 07-13-2024 09:28-0400 Systolic blood pressure 103 mm[Hg] Valdemar Gutierrez MD Work Phone: [facility] 06-26-2024 11:37-0400 Body height 175.[address] Romain Black DO Work Phone: [facility] 06-26-2024 11:37-0400 Body mass index (BMI) [Ratio] 29.5 kg/m2 Dr. Romain Black DO Work Phone: [facility] 06-26-2024 11:37-0400 Body weight 90.[address] Romain Black DO Work Phone: [facility] 06-26-2024 11:37-0400 Diastolic blood pressure 71 mm[Hg] Dr. Romain Black DO Work Phone: [facility] 06-26-2024 11:37-0400 Heart rate 86 /min Dr. Romain Black DO Work Phone: [facility] 06-26-2024 11:37-0400 Respiratory rate 20 /min Dr. Romain Black DO Work Phone: [facility] 06-26-2024 11:37-0400 SaO2% (BldA) [Mass fraction] 95 % Dr. Romain Black DO Work Phone: [facility] 06-26-2024 11:37-0400 Systolic blood pressure 127 mm[Hg] Dr. Romain Black DO Work Phone: [facility] 06-14-2024 13:58-0400 Body height 175.[address] Romain Black DO Work Phone: [facility] 06-14-2024 13:58-0400 Body mass index (BMI) [Ratio] 29.9 kg/m2 Dr. Romain Black DO Work Phone: [facility] 06-14-2024 13:58-0400 Body temperature 97.4 [degF] Dr. Romain Black DO Work Phone: [facility] 06-14-2024 13:58-0400 Body weight 92.[address] Romain Black DO Work Phone: [facility] 06-14-2024 13:58-0400 Diastolic blood pressure 70 mm[Hg] Dr. Romain Black DO Work Phone: [facility] 06-14-2024 13:58-0400 Heart rate 95 /min Dr. Romain Black DO Work Phone: [facility] 06-14-2024 13:58-0400 Respiratory rate 18 /min Dr. Romain Black DO Work Phone: [facility] 06-14-2024 13:58-0400 SaO2% (BldA) [Mass fraction] 98 % Dr. Romain Black DO Work Phone: [facility] 06-14-2024 13:58-0400 Systolic blood pressure 140 mm[Hg] Dr. Romain Black DO Work Phone: [facility] 06-09-2024 16:00-0400 Heart rate 78 /min Dr. Romain Black DO Work Phone: [facility] 06-09-2024 16:00-0400 Respiratory rate 18 /min Dr. Romain Black DO Work Phone: [facility] 06-09-2024 16:00-0400 SaO2% (BldA) [Mass fraction] 98 % Dr. Romain Black DO Work Phone: [facility] 06-09-2024 14:19-0400 Diastolic blood pressure 76 mm[Hg] Dr. Romain Black DO Work Phone: [facility] 06-09-2024 14:19-0400 Systolic blood pressure 124 mm[Hg] Dr. Romain Black DO Work Phone: [facility] 06-09-2024 14:09-0400 Body mass index (BMI) [Ratio] 29.9 kg/m2 Dr. Romain Black DO Work Phone: [facility] 06-09-2024 14:09-0400 Body weight 92.[address] Romain Black DO Work Phone: [facility] 06-09-2024 12:20-0400 Body height 175.[address] Romain Black DO Work Phone: [facility] 06-09-2024 12:20-0400 Body temperature 97.7 [degF] Dr. Romain Black DO Work Phone: [facility] 05-31-2024 13:45-0400 Body temperature 97.5 [degF] Dr. Romain Black DO Work Phone: [facility] 05-31-2024 13:45-0400 Diastolic blood pressure 78 mm[Hg] Dr. Romain Black DO Work Phone: [facility] 05-31-2024 13:45-0400 Heart rate 98 /min Dr. Romain Black DO Work Phone: [facility] 05-31-2024 13:45-0400 Respiratory rate 18 /min Dr. Romain Black DO Work Phone: [facility] 05-31-2024 13:45-0400 SaO2% (BldA) [Mass fraction] 94 % Dr. Romain Black DO Work Phone: [facility] 05-31-2024 13:45-0400 Systolic blood pressure 125 mm[Hg] Dr. Romain Black DO Work Phone: [facility] 05-31-2024 12:56-0400 Inhaled oxygen flow rate 6 L/min Dr. Romain Black DO Work Phone: [facility] 05-31-2024 11:23-0400 Body height 175.[address] Romain Black DO Work Phone: [facility] 05-31-2024 11:23-0400 Body mass index (BMI) [Ratio] 30.6 kg/m2 Dr. Romain Black DO Work Phone: [facility] 05-31-2024 11:23-0400 Body weight [address] Romain Black DO Work Phone: [facility] 05-18-2024 15:09-0500 Body temperature 98.2 [degF] Dr. Romain Black DO Work Phone: [facility] 05-18-2024 15:09-0500 Body weight 95.[address] Romain Black DO Work Phone: [facility] 05-18-2024 15:09-0500 Diastolic blood pressure 80 mm[Hg] Dr. Romain Black DO Work Phone: [facility] 05-18-2024 15:09-0500 Heart rate 92 /min Dr. Romain Black DO Work Phone: [facility] 05-18-2024 15:09-0500 Respiratory rate 16 /min Dr. Romain Black DO Work Phone: [facility] 05-18-2024 15:09-0500 SaO2% (BldA) [Mass fraction] 98 % Dr. Romain Black DO Work Phone: [facility] 05-18-2024 15:09-0500 Systolic blood pressure 137 mm[Hg] Dr. Romain Black DO Work Phone: [facility] 05-10-2024 07:50-0500 Body height 175.[address] Romain Black DO Work Phone: [facility] 05-10-2024 07:50-0500 Body mass index (BMI) [Ratio] 32.1 kg/m2 Dr. Romain Black DO Work Phone: [facility] 05-10-2024 07:50-0500 Body weight 98.[address] Romain Black DO Work Phone: [facility] 05-10-2024 07:50-0500 Diastolic blood pressure 76 mm[Hg] Dr. Romain Black DO Work Phone: [facility] 05-10-2024 07:50-0500 Heart rate 86 /min Dr. Romain Black DO Work Phone: [facility] 05-10-2024 07:50-0500 Respiratory rate 20 /min Dr. Romain Black DO Work Phone: [facility] 05-10-2024 07:50-0500 SaO2% (BldA) [Mass fraction] 95 % Dr. Romain Black DO Work Phone: [facility] 05-10-2024 07:50-0500 Systolic blood pressure 130 mm[Hg] Dr. Romain Black DO Work Phone: [facility] 05-09-2024 09:51-0500 Body temperature 98.7 [degF] Dr. Romain Black DO Work Phone: [facility] 05-09-2024 09:51-0500 Diastolic blood pressure 78 mm[Hg] Dr. Romain Black DO Work Phone: [facility] 05-09-2024 09:51-0500 Heart rate 64 /min Dr. Romain Black DO Work Phone: [facility] 05-09-2024 09:51-0500 Respiratory rate 18 /min Dr. Romain Black DO Work Phone: [facility] 05-09-2024 09:51-0500 SaO2% (BldA) [Mass fraction] 99 % Dr. Romain Black DO Work Phone: [facility] 05-09-2024 09:51-0500 Systolic blood pressure 132 mm[Hg] Dr. Romain Black DO Work Phone: [facility] 05-09-2024 07:18-0500 Body mass index (BMI) [Ratio] 31.8 kg/m2 Dr. Romain Black DO Work Phone: [facility] 05-09-2024 07:18-0500 Body weight 97.[address] Romain Black DO Work Phone: [facility] 04-27-2024 08:15-0500 Body temperature 97.11 [degF] George Pendlekitty ASSISTANCE REPRESENTATIVE.HEAD PASTRY CHEF Work Phone: [facility] 04-27-2024 08:15-0500 Diastolic blood pressure 80 mm[Hg] George Pendlekitty ASSISTANCE REPRESENTATIVE.HEAD PASTRY CHEF Work Phone: [facility] 04-27-2024 08:15-0500 Heart rate 94 /min George Pendlekitty ASSISTANCE REPRESENTATIVE.HEAD PASTRY CHEF Work Phone: [facility] 04-27-2024 08:15-0500 Respiratory rate 22 /min George Pendlekitty ASSISTANCE REPRESENTATIVE.HEAD PASTRY CHEF Work Phone: [facility] 04-27-2024 08:15-0500 SaO2% (BldA) [Mass fraction] 97 % George Perez ASSISTANCE REPRESENTATIVE.HEAD PASTRY CHEF Work Phone: [facility] 04-27-2024 08:15-0500 Systolic blood pressure 129 mm[Hg] George Perez APRN.CNP Work Phone: [facility] 03-22-2024 08:45-0500 Body mass index (BMI) [Ratio] 30.1 kg/m2 Dr. Romain Black DO Work Phone: [facility] 03-22-2024 08:45-0500 Body weight 97.[address] Romain Black DO Work Phone: [facility] 03-22-2024 08:45-0500 Diastolic blood pressure 73 mm[Hg] Dr. Romain Black DO Work Phone: [facility] 03-22-2024 08:45-0500 Heart rate 82 /min Dr. Romain Black DO Work Phone: [facility] 03-22-2024 08:45-0500 Respiratory rate 16 /min Dr. Romain Black DO Work Phone: [facility] 03-22-2024 08:45-0500 Systolic blood pressure 133 mm[Hg] Dr. Romain Black DO Work Phone: [facility] 03-07-2024 08:20-0500 Body mass index (BMI) [Ratio] 31.35 kg/m2 Valdemar Gutierrez MD Work Phone: [facility] 03-07-2024 08:20-0500 Body temperature 98.1 [degF] Valdemar Gutierrez MD Work Phone: [facility] 03-07-2024 08:20-0500 Body weight 98.2 kg Valdemar Gutierrez MD Work Phone: [facility] 03-07-2024 08:20-0500 Diastolic blood pressure 71 mm[Hg] Valdemar Gutierrez MD Work Phone: [facility] 03-07-2024 08:20-0500 Heart rate 80 /min Valdemar Gutierrez MD Work Phone: [facility] 03-07-2024 08:20-0500 SaO2% (BldA) [Mass fraction] 97 % Valdemar Gutierrez MD Work Phone: [facility] 03-07-2024 08:20-0500 Systolic blood pressure 120 mm[Hg] Valdemar Gutierrez MD Work Phone: [facility] 12-01-2023 09:46-0400 Body mass index (BMI) [Ratio] 31.35 kg/m2 Valdemar Gutierrez MD Work Phone: [facility] 12-01-2023 09:46-0400 Body temperature 97.59 [degF] Valdemar Gutierrez MD Work Phone: [facility] 12-01-2023 09:46-0400 Body weight 98.2 kg Valdemar Gutierrez MD Work Phone: [facility] 12-01-2023 09:46-0400 Diastolic blood pressure 71 mm[Hg] Valdemar Gutierrez MD Work Phone: [facility] 12-01-2023 09:46-0400 Heart rate 64 /min Valdemar Gutierrez MD Work Phone: [facility] 12-01-2023 09:46-0400 SaO2% (BldA) [Mass fraction] 99 % Valdemar Gutierrez MD Work Phone: [facility] 12-01-2023 09:46-0400 Systolic blood pressure 124 mm[Hg] Valdemar Gutierrez MD Work Phone: [facility] 07-16-2023 09:26-0400 Body mass index (BMI) [Ratio] 31.49 kg/m2 Valdemar Gutierrez MD Work Phone: [facility] 07-16-2023 09:26-0400 Body temperature 97.81 [degF] Valdemar Gutierrez MD Work Phone: [facility] 07-16-2023 09:26-0400 Body weight 98.66 kg Valdemar Gutierrez MD Work Phone: [facility] 07-16-2023 09:26-0400 Diastolic blood pressure 71 mm[Hg] Valdemar Gutierrez MD Work Phone: [facility] 07-16-2023 09:26-0400 Heart rate 55 /min Valdemar Gutierrez MD Work Phone: [facility] 07-16-2023 09:26-0400 SaO2% (BldA) [Mass fraction] 97 % Valdemar Gutierrez MD Work Phone: [facility] 07-16-2023 09:26-0400 Systolic blood pressure 113 mm[Hg] Valdemar Gutierrez MD Work Phone: [facility] 05-19-2023 10:24-0500 Body temperature 97.39 [degF] Va Dunaway MD Work Phone: [facility] 05-19-2023 10:24-0500 Diastolic blood pressure 68 mm[Hg] Va Dunaway MD Work Phone: [facility] 05-19-2023 10:24-0500 Heart rate 84 /min Va Dunaway MD Work Phone: [facility] 05-19-2023 10:24-0500 SaO2% (BldA) [Mass fraction] 84 % Va Dunaway MD Work Phone: [facility] 05-19-2023 10:24-0500 Systolic blood pressure 109 mm[Hg] Va Dunaway MD Work Phone: [facility] 04-21-2023 09:17-0500 Body temperature 98.01 [degF] Va Dunaway MD Work Phone: [facility] 04-21-2023 09:17-0500 Body weight 99.79 kg Va Dunaway MD Work Phone: [facility] 04-21-2023 09:17-0500 Diastolic blood pressure 73 mm[Hg] Va Dunaway MD Work Phone: [facility] 04-21-2023 09:17-0500 Heart rate 80 /min Va Dunaway MD Work Phone: [facility] 04-21-2023 09:17-0500 Respiratory rate 17 /min Va Dunaway MD Work Phone: [facility] 04-21-2023 09:17-0500 SaO2% (BldA) [Mass fraction] 97 % Va Dunaway MD Work Phone: [facility] 04-21-2023 09:17-0500 Systolic blood pressure 112 mm[Hg] Va Dunaway MD Work Phone: [facility] 04-21-2023 08:48-0500 Body height 177 cm Valdemar Gutierrez MD Work Phone: [facility] 04-21-2023 08:48-0500 Body temperature 98.01 [degF] Valdemar Gutierrez MD Work Phone: [facility] 04-21-2023 08:48-0500 Body weight 99.79 kg Valdemar Gutierrez MD Work Phone: [facility] 04-21-2023 08:48-0500 Diastolic blood pressure 73 mm[Hg] Valdemar Gutierrez MD Work Phone: [facility] 04-21-2023 08:48-0500 Heart rate 80 /min Valdemar Gutierrez MD Work Phone: [facility] 04-21-2023 08:48-0500 SaO2% (BldA) [Mass fraction] 97 % Valdemar Gutierrez MD Work Phone: [facility] 04-21-2023 08:48-0500 Systolic blood pressure 112 mm[Hg] Valdemar Gutierrez MD Work Phone: [facility] 01-13-2023 16:58-0400 Body temperature 97 [degF] [facility] 01-13-2023 16:58-0400 Diastolic blood pressure 76 mm[Hg] [facility] 01-13-2023 16:58-0400 Heart rate 70 /min [facility] 01-13-2023 16:58-0400 Respiratory rate 20 /min [facility] 01-13-2023 16:58-0400 SaO2% (BldA) [Mass fraction] 88 % [facility] 01-13-2023 16:58-0400 Systolic blood pressure 133 mm[Hg] [facility] 01-13-2023 15:49-0400 Inhaled oxygen flow rate 3 L/min [facility] 01-13-2023 12:51-0400 Body height 180.34 cm [facility] 01-13-2023 12:51-0400 Body mass index (BMI) [Ratio] 30.4 kg/m2 [facility] 01-13-2023 12:51-0400 Body weight 99 kg [facility] Encounters Encounter Date Encounter Type Care Provider Facility Start: 10-26-2024 Evaluation and management of inpatient Dr. Angelica Rodriguez MD Work Phone: -Medical Surgical 3 Start: 10-26-2024 Dr. Kahlil Mata DO -Medical Surgical 3 Work Phone: Start: 10-23-2024 End: 10-23-2024 ambulatory VALDEMAR GUTIERREZ Facility:[facility] Start: 10-19-2024 End: 10-19-2024 Dr. Angelica Rodriguez MD Work Phone: -Emergency Department Work Phone: Start: 10-19-2024 End: 10-19-2024 Emergency department patient visit Dr. Angelica Rodriguez MD Work Phone: -Emergency Department Start: 10-19-2024 Dr. 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 Aden Stahl MD -Emergency [facility] t Work Phone: Start: 10-05-2024 End: 10-05-2024 Emergency department patient visit Angelica Therese Facility:[facility] Start: 10-05-2024 End: 10-05-2024 Nishi Garnett NP-C -Laboratory [facility] Start: 10-05-2024 End: 10-05-2024 Nishi Garnett NP-C -[facility] Medicine Work Phone: Start: 10-05-2024 End: 10-05-2024 ambulatory Angelica Therese Facility:[facility] Start: 10-05-2024 End: 10-05-2024 ambulatory Angelica Therese Facility:[facility] Start: 10-03-2024 End: 10-03-2024 Refill Valdemar Gutierrez MD Work Phone: Hematology/Oncology Comment on above: Refill Request Start: 10-02-2024 End: 10-05-2024 Telephone encounter Va Dunaway MD Work Phone: Radiation Oncology Start: 09-25-2024 Dr. Naresh Gandhi [facility] Work Phone: Start: 09-24-2024 Dr. Naresh Gandhi [facility] Work Phone: Start: 09-23-2024 Dr. Naresh Gandhi [facility] Work Phone: Start: 09-22-20[address] Dr. [address] [facility] Work Phone: Start: 09-21-2024 Ketty SALAZAR [facility] Start: 09-20-2024 ambulatory Angelica Therese Facility :[facility] Start: 09-20-2024 Dr. Naresh Cuellar MD -[facility] Start: 09-20-2024 Dr. Naresh Florez DO [facility] Work Phone: Start: 09-19-2024 ambulatory Angelica Therese Facility :[facility] Start: 09-19-2024 End: 09-25-2024 Evaluation and management of inpatient Angelica Altamont Facility:[facility] Start: 09-19-2024 End: 09-25-2024 [facility] Start: 09-11-2024 Wildrefugio Santos [facility] Start: 09-11-2024 Dr. Jose Zhang MD [facility] Inpatient Physicians Work Phone: Start: 09-10-2024 Dr. Jose Zhang MD [facility] Work Phone: Start: 09-09-2024 Dr. Jose Zhang MD [facility] Work Phone: Start: 09-08-2024 Dr. Jose Zhang MD [facility] Work Phone: Start: 09-07-2024 Wildrefugio Santos DO [facility] Start: 09-07-2024 Dr. Jose Zhang MD [facility] Inpatient [facility]icians Work Phone: Start: 09-07-2024 ambulatory Angelica Altamont Facility :[facility] Start: 09-07-2024 Dr. Brittany Izquierdo MD [facility] Start: 09-06-2024 Dr. Stanton Ortega DO [facility] Work Phone: Start: 09-06-2024 Dr. Addy Nelson DO [facility] Start: 09-06-2024 End: 09-06-2024 ambulatory [facility] Facility:[facility] Start: 09-06-2024 End: 09-06-2024 Dr. Peter Mohan MD -[facility] Work Phone: Start: 09-05-2024 Wild Santos DO [facility] Start: 09-05-2024 Dr. Stanton Ortega DO [facility] Work Phone: Start: 09-05-2024 Dr. Addy Nelson [facility] Start: 09-04-2024 ambulatory [facility] Facility :[facility] Start: 09-04-2024 End: 09-11-2024 Evaluation and management of inpatient Dr. Serina Juan MD -Intensive Care Unit Work Phone: Start: 09-04-2024 End: 09-11-2024 Dr. Jose Zhang MD -[facility] Work Phone: Start: 09-04-2024 End: 09-07-2024 Telephone encounter Shilpi Brooks RN Work Phone: Hematology/Oncology Comment on above: Patient Update Start: 09-01-2024 End: 09-01-2024 ambulatory [facility] Facility:[facility] Start: 08-31-2024 End: 08-31-2024 Telephone encounter Va Dunaway MD Work Phone: Radiation Oncology Comment on above: Future Appointment Start: 08-31-2024 End: 08-31-2024 ambulatory [facility] Facility:[facility] Start: 08-30-2024 End: 10-05-2024 Nursing evaluation of patient and report Nurse Kirsten [facility] Work Phone: Radiation Oncology Comment on above: 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) Start: 08-30-2024 End: 08-30-2024 ambulatory VA DUNAWAY Facility:[facility] Start: 08-28-2024 End: 08-28-2024 ambulatory JONH JAZLYN Facility:[facility] Start: 08-28-2024 End: 08-30-2024 Patient encounter procedure Va Dunaway MD Work Phone: Radiation Oncology Start: 08-28-2024 End: 08-30-2024 Radiation Oncology Note Va Dunaway MD Work Phone: Radiation Oncology Comment on above: Treatment Planning Simulation Note Start: 08-28-2024 End: 08-28-2024 Office outpatient visit 40 minutes Jonh Munoz MD Work Phone: Radiation Oncology Comment on above: 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) Start: 08-28-2024 End: 08-28-2024 ambulatory JONH MUNOZ Facility:[facility] Start: 08-25-2024 End: 08-28-2024 Refill Valdemar Gutierrez MD Work Phone: Hematology/Oncology Comment on above: Refill Request Start: 08-24-2024 End: 08-25-2024 Telephone encounter Jonh Munoz MD Work Phone: Radiation Oncology Comment on above: Appointment Start: 08-22-2024 End: 08-25-2024 Refill Valdemar Gutierrez MD Work Phone: Hematology/Oncology Comment on above: Patient Update (Pain ) Start: 08-21-2024 End: 08-21-2024 Orders Only Alma Campos [facility] Comment on above: 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); Paraspinal mass Start: 08-17-2024 End: 08-18-2024 Telephone encounter Valdemar Gutierrez MD Work Phone: Hematology/Oncology Comment on above: AVS 08/17 Start: 08-17-2024 End: 08-17-2024 Patient encounter procedure Valdemar Gutierrez MD Work Phone: Hematology/Oncology Start: 08-17-2024 End: 08-17-2024 ambulatory Valdemar Gutierrez MD Work Phone: Hematology/Oncology Comment on above: 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 Angelica Rodriguez MD Work Phone: [facility] Work Phone: Start: 08-08-2024 End: 08-08-2024 Patient encounter procedure Jaleesa MARI -Nuclear Medicine [facility] Work Phone: Start: 08-08-2024 End: 08-08-2024 Jaleesa MARI -Nuclear Medicine [facility] Work Phone: Start: 08-08-2024 End: 08-08-2024 ambulatory Jaleesa Galindo Facility:[facility] Start: 08-04-[address] Terry Hou MD -Physical Therapy Work Phone: Start: 08-04-2024 Dr. Brad kraft MD -Physical Therapy Work Phone: Start: 08-04-2024 ambulatory Brad Hou Facili ty:[facility] Start: 08-01-2024 ambulatory VALDEMAR GUTIERREZ Facilit y:[facility] Start: 07-24-2024 End: 07-24-2024 Patient encounter procedure Jaleesa MARI -[facility] Work Phone: Start: 07-24-2024 End: 07-24-2024 Jaleesa MARI -[facility] Work Phone: Start: 07-24-2024 End: 07-24-2024 ambulatory Jaleesa Galindo Facility:[facility] Start: 07-20-2024 End: 07-20-[address] Angelica Rodriguez MD Work Phone: [facility] Work Phone: Start: 07-20-2024 End: 07-20-[address] Latosha Renee MD -Laboratory Work Phone: Start: 07-20-2024 End: 07-20-2024 Dr. Latosha Renee MD -Laboratory Work Phone: Start: 07-20-2024 End: 07-20-2024 ambulatory [facility] Facility:[facility] Start: 07-13-2024 End: 07-13-2024 Patient encounter procedure Valdemar Gutierrez MD Work Phone: Hematology/Oncology Start: 07-13-2024 End: 07-13-2024 ambulatory Valdemar Gutierrez MD Work Phone: Hematology/Oncology Comment on above: Malignant neoplasm o f unspecified part of unspecified bronchus or lung (HCC) (Primary Dx) Start: 07-07-2024 End: 07-07-2024 Patient encounter procedure Jaleesa MAIR -Ultrasound, [facility] Work Phone: Start: 07-07-2024 End: 07-07-2024 Jaleesa SerranoUltrasound [facility] Work Phone: Start: 07-06-2024 End: 07-07-2024 ambulatory VALDEMAR GUTIERREZ Facility:[facility] Start: 07-04-2024 End: 07-04-2024 Telephone encounter Valdemar Gutierrez MD Work Phone: Hematology/Oncology Comment on above: Orders Start: 06-27-2024 End: 06-27-2024 ambulatory [facility] Facility:[facility] Start: 06-27-2024 End: 06-27-2024 Subsequent hospital visit by physician [facility] Work Phone: Radiology Start: 06-26-2024 End: 06-26-2024 Patient encounter procedure Jaleesa MARI -[facility] Work Phone: Start: 06-26-2024 End: 06-26-2024 Jaleesa MARI -[facility] Work Phone: Start: 06-26-2024 End: 06-26-2024 ambulatory Jaleesasuzette Galindo Facility:[facility] Start: 06-26-2024 ambulatory Angelica Rodriguez Facility :[facility] Start: 06-23-2024 End: 06-23-[address] Romain Black DO Work Phone: [facility] Work Phone: Start: 06-23-2024 End: 06-23-[address] Latosha Renee MD -Laboratory Work Phone: Start: 06-23-2024 End: 06-23-2024 Dr. Latosha Renee MD -Laboratory Work Phone: Start: 06-23-2024 End: 06-23-2024 ambulatory Latosha Renee Facility:[facility] Start: 06-15-2024 End: 06-15-[address] Romain Black DO Work Phone: [facility] Work Phone: Start: 06-15-2024 End: 06-15-[address] Angelica Rodriguez MD -Laboratory, Specimen Work Phone: Start: 06-15-2024 End: 06-15-2024 Dr. Angelica Rodriguez MD -Laboratory Specimen Work Phone: Start: 06-14-2024 End: 06-15-[address] Romain Black DO Work Phone: [facility] Work Phone: Start: 06-14-2024 End: 06-14-[address] Angelica Rodriguez MD -Laboratory, [facility] Start: 06-14-2024 End: 06-14-2024 Dr. Angelica Rodriguez MD -Laboratory [facility] Start: 06-14-2024 End: 06-14-[address] Angelica Rodriguez MD -[facility] Work Phone: Start: 06-14-2024 End: 06-14-2024 Dr. Angelica Rodriguez MD -[facility] Work Phone: Start: 06-14-2024 End: 06-14-2024 ambulatory Angelica Altamont Facility:[facility] Start: 06-14-2024 End: 06-14-2024 ambulatory [facility] Facility:[facility] Start: 06-10-2024 End: 06-12-2024 Refill Valdemar Gutierrez MD Work Phone: Hematology/Oncology Comment on above: Refill Request Start: 06-09-2024 End: 06-09-2024 Dr. [facility] Work Phone: Start: 06-09-2024 End: 06-09-2024 Emergency department patient visit Dr. Romain Black DO Work Phone: -Emergency Department Work Phone: Start: 06-06-2024 End: 06-06-[address] Romain Black DO Work Phone: [facility] Work Phone: Start: 06-06-2024 End: 06-06-[address] Latosha Renee MD -Laboratory Work Phone: Start: 06-06-2024 End: 06-06-2024 Dr. Latosha Renee MD -Laboratory Work Phone: Start: 06-06-2024 End: 06-06-2024 ambulatory Angelica Altamont Facility:[facility] Start: 06-02-2024 End: 06-05-2024 Telephone encounter Shilpi Brooks RN Work Phone: Hematology/Oncology Comment on above: Care Coordination (P ain/Questions) Start: 05-31-2024 End: 06-05-2024 Telephone encounter Valdemar Gutierrez MD Work Phone: Hematology/Oncology Comment on above: Patient Question Start: 05-31-2024 End: 05-31-2024 Admission to same day surgery center Wild Friend DO -Endoscopy Work Phone: Start: 05-31-2024 End: 05-31-[address] Romain Black DO Work Phone: [facility] Work Phone: Start: 05-31-2024 Non-patient / Non-visit Wild Friend DO -[facility] Start: 05-31-2024 End: 05-31-2024 Wild Friend DO -Endoscopy Work Phone: Start: 05-22-2024 End: 05-22-2024 Subsequent hospital visit by physician [facility] Work Phone: Radiology Start: 05-22-2024 End: 05-22-2024 ambulatory ROMAIN SOTERO Facility:[facility] Start: 05-18-2024 End: 05-18-[address] Naresh Cuellar MD -[facility] Work Phone: Start: 05-18-2024 End: 05-18-2024 Dr. Naresh Cuellar MD -[facility] Work Phone: Start: 05-18-2024 End: 05-18-2024 ambulatory Angelica Rodriguez Facility:[facility] Start: 05-12-2024 End: 05-12-[address] Romain Black DO Work Phone: [facility] Work Phone: Start: 05-12-2024 End: 05-12-2024 Patient encounter procedure Jaleesa MARI -Radiology, [facility] Work Phone: Start: 05-12-2024 End: 05-12-2024 ambulatory Jaleesa Galindo Facility:[facility] Start: 05-10-2024 End: 05-11-2024 Telephone encounter Valdemar Gutierrez MD Work Phone: Hematology/Oncology Comment on above: Patient Update Start: 05-10-2024 End: 05-10-2024 ambulatory Jaleesa Galindo Facility:[facility] Start: 05-10-2024 End: 05-10-2024 Patient encounter procedure Jaleesa Galindo STAFF ASSISTANT-C -[facility] Work Phone: Start: 05-09-2024 End: 05-09-2024 Emergency department patient visit Dr. Aden Stahl MD -Emergency Department Work Phone: Start: 04-27-2024 End: 04-27-2024 Telephone encounter Valdemar Gutierrez MD Work Phone: Hematology/Oncology Comment on above: Pain Start: 04-27-2024 End: 04-27-2024 Subsequent hospital visit by physician [facility] Work Phone: Radiology Comment on above: Chest pain, unspecif ied type [R07.9] Start: 04-27-2024 End: 04-27-2024 ambulatory [facility] Facility:[facility] Start: 04-27-2024 End: 04-27-2024 Office outpatient visit 15 minutes [facility] ASSISTANCE REPRESENTATIVE.HEAD PASTRY CHEF Work Phone: [facility] Comment on above: Chest pain, unspecif ied type (Primary Dx) Start: 04-12-2024 End: 2024 Refill Valdemar Gutierrez MD Work Phone: Hematology/Oncology Comment on above: Refill Request Start: 04-06-2024 ambulatory [facility] Facility :[facility] Start: 04-06-2024 Non-patient / Non-visit Dr. Peter Mohan MD -[facility] Start: 04-06-2024 End: 04-06-[address] Peter Mohan MD -Cardiovascular Services Work Phone: Start: 04-06-2024 End: 04-06-2024 ambulatory [facility] Facility:[facility] Start: 03-31-2024 End: 03-31-2024 Refill Valdemar Gutierrez MD Work Phone: Hematology/Oncology Comment on above: Refill Request Start: 03-22-2024 End: 03-22-[address] Peter Mohan MD -[facility] Work Phone: Start: 03-22-2024 End: 03-22-2024 ambulatory Angelica Therese Facility:[facility] Start: 03-07-2024 End: 03-07-2024 ambulatory Valdemar Gutierrez MD Work Phone: Hematology/Oncology Comment on above: Malignant neoplasm o f unspecified part of unspecified bronchus or lung (HCC) (Primary Dx) Start: 03-07-2024 End: 03-07-2024 Patient encounter procedure Valdemar Gutierrez MD Work Phone: Hematology/Oncology Start: 02-18-2024 End: 02-18-2024 Subsequent hospital visit by physician [facility] ([facility]) Work Phone: Cat Scan Comment on above: Malignant neoplasm o f unspecified part of unspecified bronchus or lung (HCC) [C34.90] Start: 02-18-2024 End: 02-18-2024 ambulatory VALDEMAR GUTIERREZ Facility:[facility] Start: 12-08-2023 End: 12-08-2023 ambulatory VA DUNAWAY Facility:[facility] Start: 12-08-2023 End: 12-08-2023 Follow-up encounter Va [...] (missed) Start: 12-01-2023 End: 12-01-2023 ambulatory Valdemar Gutierrez MD Work Phone: Hematology/Oncology Comment on above: Malignant neoplasm o f unspecified part of unspecified bronchus or lung (HCC) (Primary Dx) Start: 12-01-2023 End: 12-01-2023 Patient encounter procedure Valdemar Gutierrez MD Work Phone: Hematology/Oncology Start: 11-24-2023 End: 11-24-2023 ambulatory VALDEMAR GUTIERREZ Facility:[facility] Start: 11-24-2023 End: 11-24-2023 Subsequent hospital visit by physician [facility] ([facility]) Work Phone: Cat Scan Comment on above: Malignant neoplasm o f unspecified part of unspecified bronchus or lung (HCC) [C34.90] Start: 11-24-2023 End: 11-24-2023 ambulatory VALDEMAR GUTIERREZ Facility:[facility] Start: 09-01-2023 End: 09-01-2023 Follow-up encounter Va [...] End: 08-24-2023 Subsequent hospital visit by physician [facility] ([facility]) Work Phone: Cat Scan Comment on above: Malignant neoplasm o f unspecified part of unspecified bronchus or lung (HCC) [C34.90] Start: 07-16-2023 End: 07-16-2023 ambulatory Valdemar Gutierrez MD Work Phone: Hematology/Oncology Comment on above: Malignant neoplasm o f unspecified part of unspecified bronchus or lung (HCC) (Primary Dx) Start: 07-16-2023 End: 07-16-2023 Patient encounter procedure Valdemar Gutierrez MD Work Phone: Hematology/Oncology Start: 06-23-2023 End: 06-23-2023 Follow-up encounter Va Dunaway MD Work Phone: Radiation Oncology Comment on above: Radiotherapy follow- up (Primary Dx); Malignant neoplasm of unspecified part of unspecified bronchus or lung (HCC) Start: 06-23-2023 End: 06-23-2023 Telemedicine consultation with patient Va Dunaway MD Work Phone: [facility] Start: 06-02-2023 End: 06-02-2023 Subsequent hospital visit by physician [facility] Work Phone: Radiology Start: 05-31-2023 End: 06-01-2023 ambulatory LATOSHA RENEE MD Facility:[facility] Start: 05-31-2023 End: 05-31-2023 Patient encounter procedure LATOSHA RENEE MD [facility] Start: 05-21-2023 ambulatory Va Dunaway MD Work Phone: Radiation Oncology Comment on above: Patient Education Start: 05-21-2023 Patient encounter procedure Va Dunaway MD Work Phone: [facility] Start: 05-21-2023 Radiation Oncology Note Va Dunaway MD Work Phone: Radiation Oncology Comment on above: Completion Note Start: 05-19-2023 End: 05-19-2023 Patient encounter procedure Va Dunaway MD Work Phone: Radiation Oncology Comment on above: 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) Start: 05-07-2023 End: 05-07-2023 Subsequent hospital visit by physician [facility] (I-Stat/1.5t) Work Phone: Radiology Comment on above: 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) [C34.92] Start: 04-30-2023 Patient encounter procedure Va Dunaway MD Work Phone: [facility] Start: 04-30-2023 Radiation Oncology Note Va Dunaway MD Work Phone: Radiation Oncology Comment on above: Simulation Note Treatment Planning Start: 04-30-2023 End: 04-30-2023 Nursing evaluation of patient and report Nurse Kirsten [facility] Work Phone: Radiation Oncology Comment on above: 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) Start: 04-28-2023 Orders Only Va Dunaway MD Work Phone: Radiation Oncology Comment on above: 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) Start: 04-21-2023 End: 04-21-2023 ambulatory Valdemar Gutierrez MD Work Phone: Hematology/Oncology Comment on above: 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) Start: 04-21-2023 End: 04-21-2023 Patient encounter procedure Valdemar Gutierrez MD Work Phone: [facility] Comment on above: 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) Start: 04-15-2023 End: 04-15-2023 ambulatory Fermín Chadwick MD, PhD Work Phone: [facility] Comment on above: Personal history of malignant neoplasm of bronchus and lung (Primary Dx) Start: 04-15-2023 End: 04-15-2023 Telemedicine consultation with patient Fermín Chadwick MD, PhD Work Phone: [facility] Start: 03-02-2023 Telephone encounter Fermín howell MD, PhD Work Phone: [facility] Comment on above: Appointment Start: 02-09-2023 End: 02-09-2023 ambulatory [facility] Work Phone: Start: 02-09-2023 End: 02-09-2023 Patient encounter procedure [facility] Start: 01-13-2023 End: 01-13-2023 Admission to same day surgery center [facility]-Endoscopy Work Phone: Start: 01-13-2023 End: 01-13-2023 ambulatory [facility] Work Phone: Start: 12-18-2022 End: 12-18-2022 Patient encounter procedure [facility] Work Phone: Start: 12-03-2022 End: 12-04-2022 ambulatory LYUBOV LITTLE ASSISTANCE REPRESENTATIVE-HEAD PASTRY CHEF Facility:[facility] Start: 12-03-2022 End: 12-03-2022 Patient encounter procedure LYUBOV LITTLE ASSISTANCE REPRESENTATIVE-HEAD PASTRY CHEF [facility] Start: 06-01-2022 End: 06-02-2022 ambulatory LATOSHA RENEE MD Facility:[facility] Start: 06-01-2022 End: 06-01-2022 Patient encounter procedure LATOSHA RENEE MD [facility] Start: 01-09-2022 End: 01-09-2022 Patient encounter procedure LATOSHA RENEE MD [facility] Start: 11-07-2021 End: 11-07-2021 Patient encounter procedure ROMAIN HURD MD [facility] Start: 11-04-2021 End: 11-04-2021 Patient encounter procedure ROMAIN HURD MD [facility] Start: 09-04-2021 End: 09-04-2021 Patient encounter procedure LATOSHA RENEE MD [facility] Start: 05-01-2021 End: 05-01-2021 Patient encounter procedure LATOSHA RENEE MD [facility] Start: 02-18-2021 End: 02-18-2021 Patient encounter procedure ROMAIN BLACK DO [facility] Start: 12-25-2020 End: 12-25-2020 Patient encounter procedure LATOSHA RENEE MD [facility] Start: 04-12-2019 End: 04-12-2019 Patient encounter procedure ELHAM Pickering JULIO [facility] Procedures Date Procedure Procedure Detail Performing Clinician Start: 10-26-2024 Plain chest X-ray Dr. Angelica Rodriguez MD Work Phone: Start: 10-26-2024 Venous oxygen saturation measurement Dr. Angelica Rodriguez MD Work Phone: Start: 10-26-2024 Computed tomography of abdomen and pelvis with intravenous contrast Dr. Angelica Rodriguez MD Work Phone: Start: 10-26-2024 CT angiography of chest with contrast Dr. Angelica Rodriguez MD Work Phone: Start: 10-26-2024 Blood count smear mcrscp w/mnl difrntl wbc count Dr. Angelica Rodriguez MD Work Phone: Start: 10-26-2024 Mean corpuscular hemoglobin concentration determination Dr. Angelica Rodriguez MD Work Phone: Start: 10-26-2024 Nucleated red blood cell count procedure Dr. Angelica Rodriguez MD Work Phone: Start: 10-26-2024 Platelet mean volume determination Dr. Gypsy Rodriguez MD Work Phone: Start: 10-19-2024 Urine microscopy: red cells Dr. Angelica casey MD Work Phone: Start: 10-19-2024 Urnls dip stick/tablet reagent auto microscopy Dr. Angelica Rodriguez MD Work Phone: Start: 10-19-2024 Blood count smear mcrscp w/mnl difrntl wbc count Dr. Angelica Rodriguez MD Work Phone: Start: 10-19-[address] Milton Rodriguez MD Work Phone: Start: 10-19-2024 Mean corpuscular hemoglobin concentration determination Dr. Angelica Rodriguez MD Work Phone: Start: 10-19-2024 Nucleated red blood cell count procedure Dr. Angelica Rodriguez MD Work Phone: Start: 10-19-2024 Platelet mean volume determination Dr. Gypsy Rodriguez MD Work Phone: Start: 10-19-2024 X-ray of chest, PA and lateral views Dr. Angelica Rodriguez MD Work Phone: Start: 10-19-2024 Mean corpuscular hemoglobin concentration determination Dr. Angelica Rodriguez MD Work Phone: Start: 10-19-2024 Platelet mean volume determination Dr. Gypsy Rodriguez MD Work Phone: Start: 10-05-2024 Mean corpuscular hemoglobin concentration determination Dr. Angelica Rodriguez MD Work Phone: Start: 10-05-2024 Platelet mean volume determination Dr. Gypsy Rodriguez MD Work Phone: Start: 10-05-2024 Blood count smear mcrscp w/mnl difrntl wbc count Dr. Angelica Rodriguez MD Work Phone: Start: 10-05-2024 Mean corpuscular hemoglobin concentration determination Dr. Angelica Rodriguez MD Work Phone: Start: 10-05-2024 Nucleated red blood cell count procedure Dr. Angelica Rodriguez MD Work Phone: Start: 10-05-2024 Platelet mean volume determination Dr. Gypsy Rodriguez MD Work Phone: Start: 09-22-2024 Blood count smear mcrscp w/mnl difrntl wbc count Dr. Angelica Rodriguez MD Work Phone: Start: 09-22-[address] Milton Rodriguez MD Work Phone: Start: 09-22-2024 Mean corpuscular hemoglobin concentration determination Dr. Angelica Rodriguez MD Work Phone: Start: 09-22-2024 Nucleated red blood cell count procedure Dr. Angelica Rodriguez MD Work Phone: Start: 09-22-2024 Platelet mean volume determination Dr. Gypsy Rodriguez MD Work Phone: Start: 09-21-2024 Calculation of international normalized ratio Dr. Angelica Rodriguez MD Work Phone: Start: 09-20-2024 Serum inorganic phosphate measurement Dr. Angelica Rodriguez MD Work Phone: Start: 09-19-[address] Angelica Rodriguez MD Work Phone: Start: 09-19-2024 X-ray of foot, three or more views Dr. Gypsy Rodriguez MD Work Phone: Start: 09-19-2024 Computed tomography of abdomen and pelvis with intravenous contrast Dr. Angelica Rodriguez MD Work Phone: Start: 09-19-2024 CT angiography of chest with contrast Dr. Angelica Rodriguez MD Work Phone: Start: 09-19-2024 Urine microscopy: red cells Dr. Angelica casey MD Work Phone: Start: 09-19-2024 Urnls dip stick/tablet reagent auto microscopy Dr. Angelica Rodriguez MD Work Phone: Start: 09-19-[address] Angelica Rodriguez MD Work Phone: Start: 09-19-[address] Gypsy Rodriguez MD Work Phone: Start: 09-11-[address] Milton Rodriguez MD Work Phone: Start: 09-10-2024 Blood count smear mcrscp w/mnl difrntl wbc count Dr. Angelica Rodriguez MD Work Phone: Start: 09-10-2024 Mean corpuscular hemoglobin concentration determination Dr. Angelica Rodriguez MD Work Phone: Start: 09-10-2024 Nucleated red blood cell count procedure Dr. Angelica Rodriguez MD Work Phone: Start: 09-10-2024 Platelet mean volume determination Dr. Gypsy Rodriguez MD Work Phone: Start: 09-09-2024 Serum inorganic phosphate measurement Dr. Angelica Rodriguez MD Work Phone: Start: 09-08-[address] Angelica Rodriguez MD Work Phone: Start: 09-07-[address] Angelica Rodriguez MD Work Phone: Start: 09-07-[address] Angelica Rodriguez MD Work Phone: Start: 09-07-2024 Calculation of international normalized ratio Dr. Angelica Rodriguez MD Work Phone: Start: 09-06-[address] Angelica murphy MD Work Phone: Start: 09-06-2024 Measurement of occult blood in stool specimen using immunoassay Dr. Angelica Rodriguez MD Work Phone: Start: 09-05-[address] Angelica Rodriguez MD Work Phone: Start: 09-05-[address] Angelica Rodriguez MD Work Phone: Start: 09-05-2024 Total iron binding capacity measurement Dr. Angelica Rodriguez MD Work Phone: Start: 09-04-2024 Iadna-dna/rna gi pthgn multiplex probe tq 6-11 Dr. Angelica Rodriguez MD Work Phone: Start: 09-04-[address] Angelica Rodriguez MD Work Phone: Start: 09-04-2024 Folic acid measurement, RBC Dr. Angelica casey MD Work Phone: Start: 09-04-2024 CT of thorax, abdomen and pelvis with contrast Dr. Angelica Rodriguez MD Work Phone: Start: 09-04-[address] Angelica Rodriguez MD Work Phone: Start: 09-04-[address] Beatriz Rodriguez MD Work Phone: Start: 09-04-[address] Angelica Rodriguez MD Work Phone: Start: 09-04-2024 SARS-CoV-2, Influenza & RSV (PCR) Dr. Kiel PENA Work Phone: Start: 09-04-[address] Angelica Rodriguez MD Work Phone: Start: 09-04-2024 Dr. Angelica Rodriguez MD Work Phone: Start: 09-04-2024 Urine microscopy: red cells Dr. Angelica casey MD Work Phone: Start: 09-04-2024 Urnls dip stick/tablet reagent auto microscopy Dr. Angelica Rodriguez MD Work Phone: Start: 09-04-2024 Plain radiography of pelvis Dr. Angelica casey MD Work Phone: Start: 09-04-2024 Plain X-ray of toe Dr. Angelica Rodriguez MD Work Phone: Start: 09-04-2024 Plain chest X-ray Dr. Angelica Rodriguez MD Work Phone: Start: 09-04-[address] Milton Rodriguez MD Work Phone: Start: 09-04-[address] Milton Rodriguez MD Work Phone: Start: 08-08-2024 Radionuclide study of abdomen Dr. Angelica Rodriguez MD Work Phone: Start: 07-20-[address] Gypsy Rodriguez MD Work Phone: Start: 07-07-[address] Angelica murphy MD Work Phone: Start: 06-27-2024 Radiologic exam chest 2 views [facility] Start: 06-23-2024 Insulin C-peptide measurement Dr. Angelica Rodriguez MD Work Phone: Comment on above: C-Peptide reference interval is for fast ing patients.Performed at: [facility] [place] [id number] Director: Maico Ascencoi PhD, Phone: [phone] Start: 06-14-[address] Angelica Rodriguez MD Work Phone: Comment on above: Performed at: [facility] [address] [id number] Director: Maico Ascencio PhD, Phone: [phone] Start: 06-14-2024 Antibody to centromere measurement Dr. Gypsy Rodriguez MD Work Phone: Comment on above: Previous reported result: TNP AIEdited b y: INFCE on 06/16/24:1308 AMENDED REPORT 06/16/24 1308 ANTI-CENT B previously reported as: Test not performed Start: 06-14-2024 Antibody to extractable nuclear antigen measurement Dr. Angelica Rodriguez MD Work Phone: Comment on above: Previous reported result: TNP AIEdited b y: INFCE on 06/16/24:1308 AMENDED REPORT 06/16/24 1308 FERREIRA Ab previously reported as: Test not performed Start: 06-14-2024 Antibody to ALETHEA-[address] Angelica Rodriguez MD Work Phone: Comment on above: Previous reported result: TNP AIEdited b y: INFCE on 06/16/24:1308 AMENDED REPORT 06/16/24 1308 ANTI-ALETHEA previously reported as: Test not performed Start: 06-14-2024 Antibody to lupus La protein measurement Dr. Angelica Rodriguez MD Work Phone: Comment on above: Previous reported result: TNP AIEdited b y: INFCE on 06/16/24:1308 AMENDED REPORT 06/16/24 1308 Anti-SS-B previously reported as: Test not performed Start: 06-14-2024 Antibody to SS-A measurement Dr. Angelica Rodriguez MD Work Phone: Comment on above: Previous [...] mcrscp w/mnl difrntl wbc count Dr. Angelica Rodriguez MD Work Phone: Start: 06-14-2024 Mean corpuscular hemoglobin concentration determination Dr. Angelica Rodriguez MD Work Phone: Start: 06-14-2024 Nucleated red blood cell count procedure Dr. Angelica Rodriguez MD Work Phone: Start: 06-14-2024 Platelet mean volume determination Dr. Gypsy Rodriguez MD Work Phone: Start: 06-14-2024 [employer] IN HOUSEKEEPER antibody measurement Dr. Angelica bailey MD Work Phone: Comment on above: Previous reported result: TNP AIEdited b y: INFCE on 06/16/24:1308 AMENDED REPORT 06/16/24 1308 [employer]IVE IN HOUSEKEEPER Ab previously reported as: Test not performed Start: 06-09-2024 Computed tomography of abdomen and pelvis with intravenous contrast Dr. Romain Black DO Work Phone: Start: 06-09-2024 Blood count smear mcrscp w/mnl difrntl wbc count Dr. Angelica Rodriguez MD Work Phone: Start: 06-09-2024 Mean corpuscular hemoglobin concentration determination Dr. Angelica Rodriguez MD Work Phone: Start: 06-09-2024 Nucleated red blood cell count procedure Dr. Angelica Rodriguez MD Work Phone: Start: 06-09-2024 Platelet mean volume determination Dr. Gypsy Rodriguez MD Work Phone: Start: 06-09-[address] Gypsy Rodriguez MD Work Phone: Start: 06-06-[address] Angelica metz MD Work Phone: Start: 06-06-2024 Total cholesterol:HDL ratio measurement Dr. Angelica Rodriguez MD Work Phone: Start: 06-06-2024 Vitamin D, 25-hydroxy measurement Dr. Kiel PENA Work Phone: Comment on above: Vitamin D StatusDeficiency: <20 ng/mL (5 0nmol/L)Insufficiency: 20-30 ng/mL (50-75 nmol/L)Sufficiency: 30-100 ng/mL (75-250 nmol/L)Toxicity: >100 ng/mL (>250 nmol/L) Start: 05-31-[address] Romain machado DO Work Phone: Start: 05-12-2024 Upper gastrointestinal tract contrast procedure Dr. Romain Black DO Work Phone: Start: 05-09-[address] Milton Rodriguez MD Work Phone: Start: 05-09-2024 Measurement of renal function Dr. Angelica Rodriguez MD Work Phone: Comment on above: GFR Calc Start: 05-09-2024 CT of thorax, abdomen and pelvis with contrast Dr. Romain Black DO Work Phone: Start: 04-27-2024 Radiologic exam chest 2 views George chatterjee ASSISTANCE REPRESENTATIVE.HEAD PASTRY CHEF Work Phone: Start: 04-06-2024 Cardiovascular stress test using pharmacologic stress agent Dr. Romain Black DO Work Phone: Start: 03-22-2024 Evaluation of diagnostic study results Dr. Romain Black DO Work Phone: Start: 06-02-2023 Radiologic exam [...] (3 - Td or Tdap) [facility] Start: 11-13-2024 Influenza vaccination Influenz a Vaccine (#1) [facility] Start: 11-06-2024 End: 11-06-2024 Follow-up encounter 11/06/2024 11:30 AM EDT [facility] Radiation Oncology [address] [place], [place] [id number] Va Dunaway MD [address] [facility] [address] [place], [place] [id number] 4WK FOLLOW UP Radiation Oncology Comment on above: 4WK FOLLOW UP Start: 10-26-2024 Admission procedure [facility] Start: 10-26-2024 Hospital admission, emergency, from emergency room, medical nature [facility] Start: 10-26-2024 Verification routine [facility] Start: 10-26-2024 End: 10-26-2024 [facility] Start: 10-19-2024 End: 10-19-2024 [facility] Start: 10-09-2024 End: 10-09-2024 Patient encounter procedure Radiation Oncology Comment on above: Location: [facility] Location: W-ON TREAT MENT VISIT Start: 10-06-2024 End: 10-06-2024 Patient encounter procedure 10/06/2024 11:30 AM EDT Appointment Radiation Oncology [address] [place] [address] [address]: [facility] Radiation Oncology Comment on above: Location: [facility] Start: 10-05-2024 [facility] Start: 10-05-2024 Administration of bl ood product [facility] Start: 09-25-2024 Patient discharge [facility] Start: 09-25-2024 Referral to service [facility] Start: 09-24-2024 Physiotherapy of chest [facility] Start: 09-22-2024 Wound care [facility] Start: 09-22-2024 [facility] Start: 09-21-2024 Following clinical p athway protocol [facility] Start: 09-21-2024 [facility] Start: 09-21-2024 End: 09-21-2024 [facility] Start: 09-21-2024 Care regimes management [facility] Start: 09-21-2024 Notification of physician [facility] Start: 09-20-2024 Following clinical p athway protocol [facility] Start: 09-20-2024 Referral to vascular surgeon [facility] Start: 09-20-2024 Oxygen therapy [facility] Start: 09-20-2024 Vital signs measurements [facility] Start: 09-20-2024 [facility] Start: 09-20-2024 Inhalation therapy procedure [facility] Start: 09-19-2024 [facility] Start: 09-19-2024 Ambulation without limitation [facility] Start: 09-19-2024 Assessment of risk o f venous thromboembolism [facility] Start: 09-19-2024 Insertion of cathete r into peripheral vein [facility] Start: 09-19-2024 Measuring intake and output [facility] Start: 09-19-2024 Providing care accor ding to standard [facility] Start: 09-19-2024 Referral to occupati onal therapist [facility] Start: 09-19-2024 Referral to service [facility] Start: 09-19-2024 [facility] Start: 09-19-2024 Following clinical p athway protocol [facility] Start: 09-19-2024 Referral to propeller driven airplane mechanic [facility] Start: 09-19-2024 Admission procedure [facility] Start: 09-19-2024 [facility] Start: 09-19-2024 Patient referral to dietitian [facility] Start: 09-19-2024 [facility] Start: 09-12-2024 End: 09-12-2024 ambulatory 09/12/2024 1:30 PM EDT Visit (SP) Office Hematology/Oncology [address] [place] [address] Angie Block [address] [place] [address] OV* PER TE 08/31* TO DISCUSS NEXT STEPS Hematology/Oncology Comment on above: OV* PER TE 08/31* TO DISCUSS NEXT STEPS Start: 09-11-2024 Referral to service [facility] Start: 09-11-2024 End: 09-11-2024 Patient encounter procedure 09/11/2024 10:30 AM EDT Appointment Radiation Oncology [address] [place] [address] [facility] Comment on above: Location: [facility] Start: 09-11-2024 Patient discharge [facility] Start: 09-10-2024 Care planning and pr oblem solving actions [facility] Start: 09-09-2024 [facility] Start: 09-08-2024 Blood culture [facility] Start: 09-08-2024 End: 09-09-2024 [facility] Start: 09-08-2024 End: 09-08-2024 Patient encounter procedure 09/08/2024 10:30 AM EDT Appointment Radiation Oncology [address] [place] [address] Location: [facility] Comment on above: Location: [facility] Start: 09-07-2024 Blood culture [facility] Start: 09-07-2024 [facility] Start: 09-06-2024 Consultation [facility] Start: 09-06-2024 Introduction of urin mike catheter [facility] Start: 09-05-2024 Care planning and pr oblem solving actions [facility] Start: 09-05-2024 Oxygen therapy [facility] Start: 09-05-2024 [facility] Start: 09-05-2024 End: 09-05-2024 ambulatory 09/05/2024 11:00 AM EDT Visit (SP) Office Hematology/Oncology [address] [facility] [place], [place] [id number] Angie Block [address] [facility] [address] OV* PER TE 08/31* TO DISCUSS NEXT STEPS Hematology/Oncology Comment on above: OV* PER TE 08/31* TO DISCUSS NEXT STEPS Start: 09-05-2024 End: 09-05-2024 Patient encounter procedure Radiation Oncology Comment on above: Location: [facility] Location: W-ON TREAT MENT VISIT Start: 09-05-2024 Referral to gastroenterology service [facility] Start: 09-05-2024 Continuous positive airway pressure ventilation treatment [facility] Start: 09-05-2024 Wound care [facility] Start: 09-05-2024 Administration of bl ood product [facility] Start: 09-04-2024 Following clinical p athway protocol [facility] Start: 09-04-2024 Assessment of risk o f venous thromboembolism [facility] Start: 09-04-2024 Bacteria identified in Sputum by Culture [facility] Start: 09-04-2024 Care regimes management [facility] Start: 09-04-2024 Catheterization of vein [facility] Start: 09-04-2024 Clostridioides diffi cile DNA [Presence] in Unspecified specimen by PREMA with probe detection [facility] Start: 09-04-2024 Consultation for treatment [facility] Start: 09-04-2024 Continuous pulse oximetry [facility] Start: 09-04-2024 Enteric precautions [facility] Start: 09-04-2024 Folic acid measureme nt, RBC [facility] Start: 09-04-2024 Inhalation therapy procedure [facility] Start: 09-04-2024 Insertion of cathete r into peripheral vein [facility] Start: 09-04-2024 Measuring intake and output [facility] Start: 09-04-2024 Notification of physician [facility] Start: 09-04-[address] [facility] Start: 09-04-2024 Providing care accor ding to standard [facility] Start: 09-04-2024 Referral to occupati onal therapist [facility] Start: 09-04-2024 Referral to service [facility] Start: 09-04-[address] [facility] Start: 09-04-2024 Urinary bladder resi dual urine study [facility] Start: 09-04-2024 Vital signs measurements [facility] Start: 09-04-2024 Verification routine [facility] Start: 09-04-2024 Admission procedure [facility] Start: 09-04-2024 Bacteria identified in Blood by Culture Blood Culture [facility] Start: 09-04-2024 Bacteria identified in Urine by Culture Urine Culture [facility] Start: 09-04-2024 End: 09-04-2024 [facility] Start: 09-04-2024 End: 09-04-2024 Patient encounter procedure 09/04/2024 10:30 AM EDT Appointment Radiation Oncology [address] [place] [address] [facility] Comment on above: [facility] Start: 09-04-2024 Patient referral to dietitian [facility] Start: 09-01-2024 End: 09-01-2024 Patient encounter procedure 09/01/2024 10:30 AM EDT Appointment Radiation Oncology [address] [place] [address] Location: [facility] Comment on above: Location: [facility] Start: 08-31-2024 End: 08-31-2024 Patient encounter procedure 08/31/2024 10:30 AM EDT Appointment Radiation Oncology [address] [place] [address] Location: [facility] Radiation Oncology Comment on above: Location: [facility] Start: 08-30-2024 End: 08-30-2024 Nursing evaluation of patient and report 08/30/2024 12:45 PM EDT Nurse Visit Radiation Oncology [address] [place] [address] Wstr, Nurse Radt [facility] [address] [place] [address] sim talk before tx at 1 Radiation [...] hospital visit by physician 08/21/2024 Hospital Encounter [facility] Radiology [address] [place] [address] Marco Gay MD, [address] [place] [address] Squamous cell carcinoma of left lung (HCC) [C34.92], Paraspinal mass [R22.2] [facility] Radiology Comment on above: 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) [C34.92], Paraspinal mass [R22.2] Start: 08-21-2024 End: 08-21-2024 ambulatory 08/21/2024 10:20 AM EDT Visit (SP) Office Hematology/Oncology [address] [place] [address] Valdemar Gutierrez MD [address] [place], [place] [id number] OV/PET 08/01* Hematology/Oncology Comment on above: OV/PET [...] left lung (HCC) Expected: 07/06/2024, Expires: 10/05/2024 [facility] Work Phone: Comment on above: Expected: 07/06/2024 , Expires: 10/05/2024 Start: 07-06-2024 End: 07-06-2024 Patient encounter procedure 07/06/2024 8:40 AM EDT Appointment Cat Scan [address] [place] [address] Malignant neoplasm of unspecified part of unspecified bronchus or lung (HCC) [C3... Cat Scan Comment on above: Malignant neoplasm o f unspecified part of unspecified bronchus or lung (HCC) [C3... Start: 06-14-2024 Patient referral [facility] Work Phone: Start: 06-09-2024 [facility] Start: 06-05-2024 Covid-19 Vaccine ( season) Covid-19 Vaccine ( season) [facility] Start: 05-31-2024 Egd transoral biopsy single/multiple [facility] Start: 05-31-2024 Patient discharge [facility] Start: 05-09-2024 [facility] Start: 03-15-2024 Advance Directive Discussion Advance Directive Discussion [facility] Start: 03-15-2024 Medicare Advantage A nnual Wellness Visit Medicare Advantage Annual Wellness Visit [facility] Start: 03-07-2024 End: 03-07-2024 ambulatory 03/07/2024 8:30 AM EST Visit (SP) Office Hematology/Oncology [address] [place] [address] [place] [address] [place] [address] 3 MO OV/CT 02/17* r/s from 02/24 Hematology/Oncology Comment on above: 3 MO OV/CT 02/17* r/s from 02/24 Start: 02-25-2024 End: 02-25-2024 ambulatory 02/25/2024 11:30 AM EST Visit (SP) Office Hematology/Oncology [address] [place] [address] [place] [address] [place] [address] 3 mo ov* Hematology/Oncology Comment on above: 3 mo ov* Start: 02-18-2024 End: 02-18-2024 Patient encounter procedure 02/18/2024 10:00 AM EST Appointment Cat Scan [address] [place] [address] Malignant neoplasm of unspecified part of unspecified bronchus or lung (HCC) Cat Scan Comment on above: Malignant neoplasm o f unspecified part of unspecified bronchus or lung (HCC) Start: 12-08-2023 End: 12-08-2023 Follow-up encounter 12/08/2023 9:00 AM EDT [facility] Radiation Oncology [address] [place] [address] Va Dunaway MD [address] [place] [address] 3 MO FOLLOW UP* Radiation Oncology Comment on above: 3 MO FOLLOW UP* Start: 12-03-2023 End: 12-03-2023 Follow-up encounter 12/03/2023 11:30 AM EDT [facility] Radiation Oncology [address] [place] [address] Va Dunaway MD [address] [place] [address] 3 MO FOLLOW UP* Radiation Oncology Comment on above: 3 MO FOLLOW UP* Start: 12-02-2023 End: 12-02-2023 Follow-up encounter 12/02/2023 9:00 AM EDT [facility] Radiation Oncology [address] [place] [address] Va Dunaway MD [address] [place] [address] 3 MO FOLLOW UP* Radiation Oncology Comment on above: 3 MO FOLLOW UP* Start: 12-01-2023 End: 12-01-2023 ambulatory 12/01/2023 10:00 AM EDT Visit (SP) Office Hematology/Oncology [address] [place] [address] [place] [address] [place] [address] 4 MO OV/CT 11/23* Hematology/Oncology Comment on above: 4 MO OV/CT 11/23* Start: 11-24-2023 End: 02-23-2024 CREATININE BLD CREATININE BLD Lab Routine Malignant neoplasm of unspecified part of unspecified bronchus or lung (HCC) Expected: 11/24/2023, Expires: 02/23/2024 [facility] Comment on above: Expected: 11/24/2023 , Expires: 02/23/2024 Start: 11-24-2023 End: 08-14-2024 CT Chest W contrast IV [facility] Work Phone: Comment on above: Expected: 11/24/2023 , Expires: 08/14/2024 Start: 11-24-2023 End: 11-24-2023 Patient encounter procedure 11/24/2023 8:40 AM EDT Appointment Cat Scan [address] [place] [address] Malignant neoplasm of unspecified part of unspecified bronchus or lung (HCC) [C34.90] Cat Scan Comment on above: Malignant neoplasm o f unspecified part of unspecified bronchus or lung (HCC) [C34.90] Start: 11-24-2023 End: 11-24-2023 ambulatory 11/24/2023 8:15 AM EDT Results Only Tre[facility] Laboratory [address] [place] [address] CREATININE* [facility] Laboratory Comment on above: CREATININE* Start: 11-14-2023 Covid-19 Vaccine ( season) Covid-19 Vaccine () [facility] Start: 11-14-2023 Covid-19 Vaccine () Covid-19 Vaccine () [facility] Start: 11-14-2023 Influenza vaccination Influenz a Vaccine (#1) [facility] Start: 08-27-2023 End: 08-27-2023 ambulatory 08/27/2023 9:00 AM EDT [facility] Radiation Oncology [address] [place] [address] Va Dunaway MD [address] [place] [address] F/U OV CT 08/23* Radiation Oncology Comment on above: F/U OV CT 08/23* Start: 08-24-2023 End: 08-24-2023 Patient encounter procedure 08/24/2023 9:00 AM EDT Appointment Cat Scan [address] [place] [address] Dx: Malignant neoplasm of unspecified part of unspecified bronchus or lung (HCC) [C34.90] Cat Scan Comment on above: Dx: Malignant neopla sm of unspecified part of unspecified bronchus or lung (HCC) [C34.90] Start: 08-23-2023 End: 07-22-2024 CT Chest WO contrast CT CHEST WO IVCON Radiology Routine Malignant neoplasm of unspecified part of unspecified bronchus or lung (HCC) Expected: 08/23/2023 (Approximate), Expires: 07/22/2024 [facility] Work Phone: Comment on above: Expected: 08/23/2023 (Approximate), Expires: 07/22/2024 Start: 06-11-2023 Covid-19 Vaccine () Covid-19 Vaccine () [facility] Start: 03-15-2023 Advance Directive Discussion Advance Directive Discussion [facility] Start: 03-15-2023 Behavioral Health Screening Behavioral Health Screening [facility] Start: 03-15-2023 Depression Assessment Depression Ass essment [facility] Start: 01-13-2023 [facility] Start: 01-13-2023 Brnchsc w/brncl alve olar lavage DX BRONCHOSCOPE/LAVAGE [facility] Start: 01-13-2023 Bronchoscopy w/transbronchial lung bx 1 lobe BRONCHOSCOPY/LUNG BX EACH [facility] Start: 01-13-2023 CORE NDL BX LNG/MED PERQ CORE NDL BX LNG/MED PERQ [facility] Start: 01-13-2023 Fungal Culture Fungal Culture [facility] Start: 01-13-2023 Patient discharge [facility] Start: 01-13-2023 [facility] Start: 03-15-2020 Urine microalbumin profile DTa P,Tdap,Td Vaccine (2 - Tdap) [facility] Start: 2011 Prostate specific an tigen measurement Prostate Cancer Screening Discussion [facility] Start: 2001 Prostate specific an tigen measurement Prostate Cancer Screening Discussion [facility] Start: 2001 Screening for malign ant neoplasm of colon [facility] Start: 1986 Zoledronic acid therapy Alpha- 1 Antitrypsin Deficiency Screening [facility] Start: 1974 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 Annual PCP Team Chronic Disease Visit [facility] Start: 1974 Anxiety Screening Anxiety Screening [facility] Start: 1974 Depression Screening Depression Scre ening [facility] Start: 1974 Hepatitis B surface antibody level LDL Cholesterol [facility] Start: 1974 Hepatitis C screening Hepatitis C Sc kadie [facility] Start: 1966 Diabetic foot examination Diabetic F oot Exam [facility] Start: 1966 Glaucoma screening Dilated Retinal E xam [facility] Start: 1966 Hepatitis B screening Urine Albumin:Creatinine Ratio [facility] Start: 1961 Hemoglobin A1c measurement HbA1C [facility] Start: 1956 Abdominal aortic ane urysm screening Abdominal Aortic Aneurysm Screening [facility] Acid fast bacilli culture [facility] Anion gap in Serum o r Plasma [facility] Anion gap in Serum o r Plasma [facility] Body fluid analysis [facility] BUN/Creatinine ratio [facility] BUN/Creatinine ratio [facility] Calcium [Mass/volume ] in Serum or Plasma [facility] Calcium [Mass/volume ] in Serum or Plasma [facility] Carbon dioxide, tota l [Moles/volume] in Central venous blood [facility] Carbon dioxide, tota l [Moles/volume] in Central venous blood [facility] Cobalamin (Vitamin B 12) [Mass/volume] in Serum or Plasma [facility] Creatinine [Mass/vol ume] in Serum or Plasma [facility] Creatinine [Mass/vol ume] in Serum or Plasma [facility] End: 04-06-2025 CT Chest W contrast IV CT CHEST W IVCON Radiology Routine Malignant neoplasm of unspecified part of unspecified bronchus or lung (HCC) 1 Occurrences starting 03/07/2024 until 04/06/2025 [facility] Work Phone: Comment on above: 1 Occurrences starti ng 03/07/2024 until 04/06/2025 CT Chest WO contrast CT CHEST WO IVCON Radiology Routine Malignant neoplasm of unspecified part of unspecified bronchus or lung (HCC) 08/24/2023 9:14 AM EDT [facility] Work Phone: End: 12-30-2024 CT Chest WO contrast CT CHEST WO IVCON Radiology Routine Malignant neoplasm of unspecified part of unspecified bronchus or lung (HCC) 1 Occurrences starting 12/01/2023 until 12/30/2024 [facility] Work Phone: Comment on above: 1 Occurrences starti ng 12/01/2023 until 12/30/2024 CT Chest WO contrast CT CHEST WO IVCON Radiology Routine Malignant neoplasm of unspecified part of unspecified bronchus or lung (HCC) 02/18/2024 9:51 AM EST [facility] Work Phone: CT Guidance for radi ation treatment of Unspecified body region CT SIM PLANNING RADIATION ONCOLOGY Radiology Routine Squamous cell carcinoma of left lung (HCC) Ordered: 04/30/2023 [facility] Work Phone: Comment on above: Ordered: 04/30/2023 CT Guidance for radi ation treatment of Unspecified body region CT SIM PLANNING RADIATION ONCOLOGY Radiology Routine 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) Ordered: 10/05/2024 [facility] Work Phone: Comment on above: Ordered: 10/05/[address] Ct [address] needle [address] GUIDED NEEDLE BIOPSY Squamous cell carcinoma of left lung (HCC) Paraspinal mass ME IR Cytology report of B tad fluid Cyto stain [facility] Doppler ultrasonogra phy of aorta [facility] Erythrocyte mean corpuscular volume determination [facility] Ferritin [Mass/volum e] in Serum or Plasma [facility] Glucose [Mass/volume ] in Serum or Plasma [facility] Glucose [Mass/volume ] in Serum or Plasma [facility] Guidance for biopsy of Soft tissue IMAGING GUIDED BIOPSY SOFT TISSUE MASS/MUSCLE Radiology Routine Squamous cell carcinoma of left lung (HCC) Paraspinal mass Ordered: 08/17/2024 [facility] Work Phone: Comment on above: Ordered: 08/17/2024 Hematocrit [Volume Fraction] of Blood [facility] Hematocrit [Volume Fraction] of Blood [facility] Hemoglobin [Mass/vol ume] in Blood [facility] Iron [Mass/mass] in Unspecified specimen [facility] Iron saturation [Mas s Fraction] in Serum or Plasma [facility] Lactic acid measurement [facility] Leukocytes [#/volume ] in Blood [facility] Mean corpuscular hemoglobin concentration determination [facility] Mean corpuscular hemoglobin determination [facility] Measurement of renal function [facility] Measurement of renal function [facility] Mycobacterium sp identified in Unspecified specimen by Organism specific culture [facility] Neutrophil count [facility] Neutrophil percent differential count [facility] Patient Education [facility] Work Phone: Patient referral [facility] Work Phone: End: 08-12-2025 PET+CT Guidance for localization of tumor of Skull base to mid-thigh-- W [id number] IV NM PET/CT SKULL-THIGH SUBSEQUENT Radiology Routine Malignant neoplasm of unspecified part of unspecified bronchus or lung (HCC) 1 Occurrences starting 07/13/2024 until 08/12/2025 [facility] Work Phone: Comment on above: 1 Occurrences starti ng 07/13/2024 until 08/12/2025 Platelets [#/volume] in Blood [facility] Porphobilinogen [Mass/time] in 24 hour Urine [facility] Porphyrin fractions panel - 24 hour Urine [facility] Potassium measurement [facility] Potassium measurement [facility] Radionuclide study o f abdomen [facility] Red blood cell count [facility] Red cell distributio n width determination [facility] Serum chloride measurement [facility] Serum chloride measurement [facility] Sodium measurement [facility] Sodium measurement [facility] Specimen description [facility] Specimen processing [facility] Total iron binding capacity measurement [facility] Urea nitrogen [Mass/volume] in Serum or Plasma [facility] Urea nitrogen [Mass/volume] in Serum or Plasma [facility] Urine culture [facility] US Abdomen limited [facility] White blood cell count [facility] Immunizations Immunization Date Immunization Notes Care Provider Nohemy matthews 12-07-2023 Pfizer Covid-19 (Comirnaty) Dr. Romain Black DO Work Phone: [facility] 12-07-2023 tetanus toxoid, reduced diphtheria toxoid, and acellular pertussis vaccine, adsorbed Dr. Romain Black DO Work Phone: [facility] 12-07-2023 influenza virus vaccine, unspecified formulation Valdemar Gutierrez MD Work Phone: [facility] 02-10-2023 Pfizer Covid-19 (Comirnaty) Dr. Romain Black DO Work Phone: [facility] 12-23-2022 influenza (aIIV4) vaccine, age 65+ yr, quadrivalent, PF (FLUAD QUAD) Fermín Chadwick MD, PhD Work Phone: [facility] 12-23-2022 influenza, injectabl e, quadrivalent, preservative free Dr. Romain Black DO Work Phone: [facility] 12-23-2022 respiratory syncytia l virus (RSV) vaccine, adjuvanted (AREXVY) Fermín Chadwick MD, PhD Work Phone: [facility] 12-23-2022 influenza virus vaccine, unspecified formulation Va Dunaway MD Work Phone: [facility] 09-22-2022 Covid Pfizer Bivalen t Booster Dr. Romain Black DO Work Phone: [facility] 09-22-2022 pneumococcal conjuga te (PCV20) vaccine, 20 valent (PREVNAR 20) Fermín Chadwick MD, PhD Work Phone: [facility] 01-13-2022 influenza (HD-IIV4) vaccine, age 65+ yr, high dose, quadrivalent, PF (FLUZONE HIGH-DOSE) Fermín Chadwick MD, PhD Work Phone: [facility] 10-21-2021 Covid (Pfizer) Dr. Romain machado DO Work Phone: [facility] 01-08-2021 SARS-CoV-2 mRNA (tozinameran) vaccine ROMAIN BLACK DO [facility] Comment on above: Result Comment: 2020: [id number] 12-18-2020 influenza virus vaccine, unspecified formulation ROMAIN BLACK DO [facility] 12-18-2020 influenza, injectabl e, quadrivalent, preservative free Fermín Chadwick MD, PhD Work Phone: [facility] 12-18-2020 SARS-CoV-2 mRNA (tozinameran) vaccine ROMAIN BLACK DO [facility] Comment on above: Result Comment: 2020: [id number] 01-29-2020 Influenza, injectabl e, Madin Lenore Canine Kidney, preservative free, quadrivalent Fermín Chadwick MD, PhD Work Phone: [facility] 02-22-2019 zoster vaccine recombinant ROMAIN BLACK DO [facility] 11-22-2018 influenza, injectabl e, quadrivalent, preservative free Fermín Chadwick MD, PhD Work Phone: [facility] 11-22-2018 zoster vaccine recombinant ROMAIN BLACK DO [facility] 01-10-2018 influenza, injectabl e, quadrivalent, preservative free Fermín Chadwick MD, PhD Work Phone: [facility] 01-10-2018 pneumococcal conjuga te vaccine, 13 valent ROMAIN BLACK DO [facility] 12-09-2016 influenza, injectabl e, quadrivalent, preservative free Fermín Chadwick MD, PhD Work Phone: [facility] 12-09-2016 zoster vaccine, live Fermín Chadwick MD, PhD Work Phone: [facility] 11-14-2015 zoster vaccine, live Fermín Chadwick MD, PhD Work Phone: [facility] 03-15-2015 influenza, high dose seasonal, preservative-free Fermín Chadwick MD, PhD Work Phone: [facility] 03-15-2010 diphtheria, tetanus toxoids and acellular pertussis vaccine Dr. Romain Black DO Work Phone: [facility] 03-15-2010 diphtheria, tetanus toxoids and acellular pertussis vaccine, unspecified formulation Fermín Chadwick MD, PhD Work Phone: [facility] Payers Date Payer Category Payer Self-pay [id number] 2024 Medicare (Managed Care) LUCY BREWER [id number] 2022 Medicare [id number]. [id number] 2018 Private Health Insurance [id number] 2018 Medicaid [id number] 2017 Medicare [id number] 1955 Unknown [id number] 2.16.840.1.453248.3.579.2. 651 1955 Unknown [id number] 2.16.840.1.615950.3.579.2. 627 1955 Unknown [id number] 2.16.840.1.001427.3.579.2. 627 1956 Unknown [id number] 2.16.840.1.308012.3.579.2. 627 1956 Unknown [id number] 2.16.840.1.651352.3.579.2. 627 Unknown [id number] 2.16.840.1.004399.3.579.2. 462 Unknown [id number] 2.16.840.1.657195.3.579.2. 462 Unknown [id number] 2.16.840.1.751639.3.579.2. 462 Unknown [id number] 2.16.840.1.478947.3.579.2. 462 Unknown [id number] 2.840.1.466552.3.579.2. 462 Unknown [id number] 2.840.1.001087.3.579.2. 462 Unknown [id number] 2.16.840.1.174850.3.579.2. 462 Unknown [id number] 2.16840.1.604832.3.579.2. 462 Unknown [id number] 2.16.840.1.146181.3.579.2. 462 Unknown [id number] 2.840.1.727516.3.579.2. 462 Unknown [id number] 2.16.840.1.989465.3.579.2. 462 Unknown [id number] 2.16840.1.996124.3.579.2. 462 Unknown [id number] 2.16.840.1.261395.3.579.2. 462 Unknown [id number] 2.16.840.1.365262.3.579.2. 462 Unknown [id number] 2.16.840.1.781954.3.579.2. 462 Unknown [id number] 2.16.840.1.217162.3.579.2. 462 Unknown [id number] 2.16.840.1.919325.3.579.2. 462 Unknown [id number] 2.16.840.1.384038.3.579.2. 462 Unknown [id number] 2.16.840.1.508411.3.579.2. 462 Unknown [id number] 2.16840.1.390031.3.579.2. 462 Unknown [id number] 2.840.1.108325.3.579.2. 462 Unknown [id number] 2.840.1.542602.3.579.2. 462 Unknown [id number] 2.840.1.243984.3.579.2. 462 Unknown [id number] 2.840.1.442044.3.579.2. 462 Unknown [id number] 2.840.1.956586.3.579.2. 462 Unknown [id number] 2.840.1.312193.3.579.2. 462 Unknown [id number] 2.16840.1.068580.3.579.2. 462 Unknown [id number] 2.16840.1.613678.3.579.2. 462 Unknown [id number] 2.840.1.121396.3.579.2. 462 Unknown [id number] 2.16840.1.373345.3.579.2. 462 Unknown [id number] 2.16840.1.891715.3.579.2. 462 Unknown [id number] 2.16840.1.705138.3.579.2. 462 Unknown [id number] 2.16840.1.180997.3.579.2. 462 Unknown [id number] 2.840.1.512205.3.579.2. 462 Unknown [id number] 2.16.840.1.514487.3.579.2. 462 Unknown [id number] 2.16.840.1.286617.3.579.2. 462 Unknown [id number] 2.16.840.1.854948.3.579.2. 462 Unknown [id number] 2.16.840.1.938464.3.579.2. 462 Unknown [id number] 2.16.840.1.822580.3.579.2. 462 Unknown [id number] 2.840.1.688119.3.579.2. 462 Unknown [id number] 2.840.1.324346.3.579.2. 462 Unknown [id number] 2.840.1.131053.3.579.2. 462 Unknown [id number] 2.840.1.630495.3.579.2. 462 Unknown [id number] 2.840.1.743500.3.579.2. 462 Unknown [id number] 2.840.1.851978.3.579.2. 462 Unknown [id number] 2.840.1.182954.3.579.2. 462 Unknown [id number] 2.840.1.781353.3.579.2. 462 Unknown [id number] 2.840.1.502528.3.579.2. 462 Unknown [id number] 2.840.1.487722.3.579.2. 462 Unknown [id number] 2.16.840.1.584045.3.579.2. 462 Unknown [id number] 2.16840.1.313281.3.579.2. 462 Unknown [id number] 2.16.840.1.327366.3.579.2. 462 Unknown [id number] 2.16.840.1.549670.3.579.2. 462 Unknown [id number] 2.16.840.1.447624.3.579.2. 462 Unknown [id number] 2.16.840.1.974952.3.579.2. 462 Unknown [id number] 2.16.840.1.797520.3.579.2. 462 Social History Date Type Detail Facility Start: 09-13-2018 End: 10-26-2024 Ex-smoker (finding) [facility] Comment on above: no tobacco smoke exp osure Start: 1955 Sex Assigned At Male A [facility] Start: 01-08-2023 End: 01-08-2023 Tobacco smoking status NHIS Unknown if ever smoked [facility] Start: 1955 Sex Assigned At Not on file [facility] Start: 04-01-2023 End: 12-03-2023 Gender identity Not on file [facility] History of tobacco use Current smoker [facility] History of tobacco use Cigarette Smoker C [facility] Start: 03-18-2023 End: 12-03-2023 Cigarettes smoked current (pack per day) - Reported 2 [facility] Start: 03-18-2023 End: 03-07-2024 Tobacco use and exposure Smokeless tobacco non-user [facility] Start: 04-21-2023 End: 04-27-2024 Alcohol intake Current drinker of alcohol (finding) [facility] Start: 04-21-2023 Alcohol Comment occ [facility] National Score (1-10 0), lower number is lower risk 80 [facility] Start: 03-07-2024 Tobacco Comment Pt smoked 2 pa cks daily x 49 years, quit 2016 [facility] Start: 05-25-2024 End: 06-29-2024 Sex Male (finding) [facility] Start: 08-17-2024 Alcoholic beverage intake Ex-drinker (finding) [facility] Start: 08-17-2024 Alcohol Comment hasn't drank i n 5 months [facility] Medical Equipment Procedure Code Equipment Code Equipment [...] refills.., # 1 EA, 0 Refill(s), Pharmacy: [facility], Uncontrolled type 2 diabetes mellitus, 177, cm, 05/29/21 9:12:00 EDT... Start: 07-06-2021 See Instructions , true metrix lancets, 1 lancet 3 times daily and as needed 1 box of 100 for 30 days and 3 refills., # 1 EA, 0 Refill(s), Pharmacy: [facility], Uncontrolled type 2 diabetes mellitus, 177, cm, 05/29/21 9:12:00 EDT, He... Start: 07-06-2021 See Instructions , true metrix test strips one strip 3 times daily and as needed #300 strips for 90 days and 1 refills.., # 1 EA, 0 Refill(s), Pharmacy: [facility], Uncontrolled type 2 diabetes mellitus, 177, cm, 05/29/21 9:12:00 EDT... Start: 07-06-2021 See Instructions , true metrix lancets, 1 lancet 3 times daily and as needed 1 box of 100 for 30 days and 3 refills., # 1 EA, 0 Refill(s), Pharmacy: [facility], Uncontrolled type 2 diabetes mellitus, 177, cm, 05/29/21 9:12:00 EDT, He... Start: 07-06-2021 See Instructions , true metrix test strips one strip 3 times daily and as needed #300 strips for 90 days and 1 refills.., # 1 EA, 0 Refill(s), Pharmacy: [facility], Uncontrolled type 2 diabetes mellitus, 177, cm, 05/29/21 9:12:00 EDT... Start: 07-06-2021 See Instructions , true metrix lancets, 1 lancet 3 times daily and as needed 1 box of 100 for 30 days and 3 refills., # 1 EA, 0 Refill(s), Pharmacy: [facility], Uncontrolled type 2 diabetes mellitus, 177, cm, 05/29/21 9:12:00 EDT, He... Start: 07-06-2021 See Instructions , true metrix test strips one strip 3 times daily and as needed #300 strips for 90 days and 1 refills.., # 1 EA, 0 Refill(s), Pharmacy: [facility], Uncontrolled type 2 diabetes mellitus, 177, cm, 05/29/21 9:12:00 EDT... Start: 07-06-2021 See Instructions , true metrix lancets, 1 lancet 3 times daily and as needed 1 box of 100 for 30 days and 3 refills., # 1 EA, 0 Refill(s), Pharmacy: [facility], Uncontrolled type 2 diabetes mellitus, 177, cm, 05/29/21 9:12:00 EDT, He... Start: 07-06-2021 See Instructions , true metrix test strips one strip 3 times daily and as needed #300 strips for 90 days and 1 refills.., # 1 EA, 0 Refill(s), Pharmacy: [facility], Uncontrolled type 2 diabetes mellitus, 177, cm, 05/29/21 9:12:00 EDT... Start: 07-06-2021 See Instructions , true metrix lancets, 1 lancet 3 times daily and as needed 1 box of 100 for 30 days and 3 refills., # 1 EA, 0 Refill(s), Pharmacy: [facility], Uncontrolled type 2 diabetes mellitus, 177, cm, 05/29/21 9:12:00 EDT, He... Start: 07-06-2021 See Instructions , true metrix lancets, 1 lancet 3 times daily and as needed 3 box of 100 for 90 days and 3 refills. E11.65, # 1 EA, 0 Refill(s), Pharmacy: [facility], Uncontrolled type 2 diabetes mellitus, 178, cm, 01/22/22 9:03... Start: 01-30-2022 See Instructions , true metrix test strips one strip 3 times daily and as needed #300 strips for 90 days and 3 refills..E11.65, # 1 EA, 0 Refill(s), Pharmacy: [facility], Uncontrolled type 2 [...] EA, 0 Refill(s), Pharmacy: [facility] Uncontrolled type 2 diabetes [...] E11.65, # 1 EA, 0 Refill(s), Pharmacy: [facility], Uncontrolled type 2 diabetes mellitus, 178, cm, 12/10/22 8:48:00 EDT, Height, 99.5, kg, 12/10/22 8:48:00 EDT, Dosing Weight Start: 02-23-2023 See Instructions , true metrix test strips one strip 3 times daily and as needed #300 strips for 90 days and 3 refills..E11.65, # 1 EA, 0 Refill(s), Pharmacy: [facility], Uncontrolled type 2 diabetes mellitus, 178, cm, 12/10/22 8:48:00 EDT, Height, 99.5, kg, 12/10/22 8:48:00 EDT, Dosing Weight Start: 02-23-2023 Goals Date Patient Goal Desired Activity /State Functional Status Date Assessment Result Facility 09-25-2024 Functional status Ambulates [facility] Work Phone: 09-25-2024 Functional status Poor [facility] Work Phone: 09-11-2024 Functional status Ambulates;Chair [facility] Work Phone: Mental Status Date Assessment Result Facility 10-26-2024 Cognitive function Voice/Name [facility] Work Phone: 10-19-2024 Cognitive function Awake;Alert;F ollows Commands [facility] Work Phone: 10-05-2024 Cognitive function Voice/Name [facility] Work Phone: 09-25-2024 Cognitive function Voice/Name [facility] Work Phone: 09-11-2024 Cognitive function Voice/Name [facility] Work Phone: 05-31-2024 Cognitive function Voice/Name [facility] Work Phone: 05-09-2024 Cognitive function Voice/Name [facility] Work Phone: 01-13-2023 Cognitive function Voice/Name [facility] Work Phone: Clinical Notes 11-08-2019 to 10-26-2024 Note Date & Type Note Facility 10-26-2024 Radiology Diagnostic study note [facility] 10-26-2024 Radiology Diagnostic study note [facility] 10-26-2024 Radiology Diagnostic study note [facility] 10-26-2024 Discharge summary Note Date/Time October 26, 2024 10:27pm [facility] Medical Records Department [address] [place] [address] Emergency Department Summary 10/26/24 MR#: [id number] Acct: [id number] Name: REY MEAD Rep #:[id number] : 1955 69 From: Maite Menjivar MD PCP: Dr. Angelica Rodriguez MD Status:REG ER Location: ED HPI History of Present Illness Chief Complaint: Chest Pain Narrative Narrative: Patient is a 69-year-old male presenting to the emergency department for multiple complaints including chest pain and shortness of breath. Patient has an extensive past medical history as below including lung cancer status post resection, COPD, diabetes, CAD. Patient is an extremely poor historian but states that over the past few weeks he has developed intermittent chest pain that he states is all over. States he is also feeling short of breath. He does wear 3 L nasal cannula at baseline. States that he is having generalized abdominal pain as well with some nausea with no vomiting. Denies recent fall. Denies fever or chills. Denies diarrhea, dysuria or hematuria. [facility] Medical History Anemia PAD (peripheral artery disease) Kidney disease Sleep apnea Alcohol use Excessive bleeding History of echocardiogram [...] 2.5 mg/3 mL 2.5 mg inhalation DAILY shortness 01/08/23 09/03/24 History (0.083 %) solution for nebulization of breath albuterol sulfate 90 mcg/actuation 2 puff inhalation P RN PRN 01/08/23 05/30/24 History aerosol inhaler shortness of breath or wheez ing aspirin 81 mg tablet,delayed 81 mg PO DAILY general he alth 01/08/23 09/04/24 History release atorvastatin 20 mg tablet 20 mg PO QHS hyperlipidema 1 09/03/24 History dapagliflozin propanediol 5 mg 5 mg PO DAILY daily 09/03/24 History tablet (Farxiga) fluticasone fur. 100 mcg-umeclid 1 inh inhalation GURU Y daily 01/08/23 09/03/24 History 62.5 mcg-vilant 25 mcg inhalat.powder (Trelegy Ellipta) paroxetine HCl 10 mg tablet 10 mg PO DAILY daily 01/0809/04/24 History pregabalin 150 mg capsule 150 mg PO DAILY daily 09/04/24 History roflumilast 250 mcg tablet 250 mcg PO DAILY guru 01/0809/04/24 History tamsulosin 0.4 mg capsule 0.4 mg PO Q24H BPH 01/08/23 09/04/24 History metformin 500 mg tablet,extended 1,500 mg PO QHS D<M 0 03/22/24 09/04/24 History release 24hr (osmotic) gabapentin 300 mg capsule 300 mg PO QHS neuropathy 09/03/24 History esomeprazole magnesium 40 mg 40 mg PO DAILY daily 08/1409/03/24 History capsule,delayed release insulin lispro protamine-lispro 15 unit subcut BIDCM d iabetes 09/04/24 09/04/24 History 100 unit/mL (75-25) subcutaneous pen (Humalog Mix 75-25 KwikPen) metoprolol succinate 25 mg 25 mg PO DAILY hypertension 09/04/24 09/04/24 History tablet,extended release 24 hr prednisone 5 mg tablet 15 mg PO DAILY guru 09/04/24 Unknown History semaglutide 7 mg tablet (Rybelsus) 7 mg PO DAILY daily 09/04/24 09/04/24 History vitamin B complex (Complex B-100 1 tab PO DAILY daily 09/04/24 09/04/24 History tablet,extended release) cephalexin 500 mg capsule 500 mg PO 4XD 1 week #28 cap s 09/11/24 Unknown Rx lorazepam 1 mg tablet 0.5 mg (1/2 x 1 mg) PO TID P RN 09/11/24 Unknown Rx anxiety #90 tabs sennosides 8.6 mg-docusate sodium 2 tab PO BID daily # 0 tabs 09/11/24 Unknown Rx 50 mg tablet (Stimulant Laxative Plus) acetaminophen 500 mg tablet 1,000 mg (2 x 500 mg) PO Q 8 PRN 09/25/24 Unknown Rx pain/fever #0 tabs lidocaine 5 % topical patch 1 patch topical DAILY #30 ea 09/25/24 Unknown Rx midodrine 5 mg tablet 10 mg (2 x 5 mg) PO TIDCM #1 80 tabs 10/06/24 Unknown Rx oxycodone 10 mg tablet 10 mg PO Q6H pain 1 month #1 TAB 10/16/24 Unknown Rx potassium chloride 20 mEq 20 meq PO BID #20 tabs 10/19 Unknown Rx tablet,extended release(part/cryst) miscellaneous medical supply 1 ea miscellaneous ONCE # 1 ea 10/24/24 Unknown Rx Allergy/AdvReac Type Severity Reaction Status Date / Time No Known Allergies Allergy Verified 10/26/24 17:02 Family History Mother Cancer LUNG Heart disease Father Cancer lung Sister Cancer lung Heart disease Sister Cancer lung Sister Cancer lung Sister Colon cancer Surgical History Hx of CABG History of bronchoscopy Hx of biopsy History of lobectomy of lung Hx of oral surgery Hx of fracture of foot Hx of fracture of leg History of open heart surgery (05/08/15) Social History household members: none housing: other 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 status: retired current occupation: [employer] Smoking Status: Former smoker quit date: 03/15/15 pack-years: 120 alcohol intake: current alcohol intake frequency: a few times a month Alcohol type: beer substance use type: does not use what type of physical activity do you participate in: none seatbelt use: always do you feel safe at home: Yes ROS ROS ED ROS Narrative see HPI EXAM Physical Exam Narrative Exam Narrative: Vital signs: Reviewed General: Alert and orientedx3. No acute distress. Chronically ill-appearing HEENT: Head is normocephalic and atraumatic, sinuses nontender, pupils equal round and reactive. Nares are patent. Oropharynx and throat exams normal. Neck: Supple without lymphadenopathy nontender Cardiovascular: Tachycardic, regular rhythm. No murmurs. No rubs or gallops. Normal S1 and S2 Respiratory: Rhonchorous lung sounds in all lung haque. On 3 L NC which is baseline. No wheezing. Abdominal: Soft with generalized tenderness throughout. Normal bowel sounds. No guarding or rebound. Nonsurgical abdomen Extremities: No tenderness. No bruising. Normal range of motion. Normal sensation. Skin: No rash or redness. Neurological: Cranial nerves II through XII are grossly intact. Normal strengthand sensation. The rest of the physical exam is unremarkable Const Vital Signs: 10/26/24 16:57 10/26/24 17:28 10/26/24 17:28 Temperature 97.7 F L Temperature Source Oral Pulse Rate 112 H Respiratory Rate 24 H Respiratory Effort Short of Breath Blood Pressure 97/78 Blood Pressure Mean 84 Pulse Ox 100 Oxygen Delivery Method Nasal Cannula Nasal Cannula Oxygen Flow Rate (L/min) 2 3 10/26/24 17:29 10/26/24 17:29 10/26/24 18:00 Temperature Temperature Source Pulse Rate 99 92 Respiratory Rate 26 H 20 H Respiratory Effort Blood Pressure 105/59 L Blood Pressure Mean 74 Pulse Ox 96 96 Oxygen Delivery Method Nasal Cannula Nasal Cannula Oxygen Flow Rate (L/min) 2 3 10/26/24 19:00 10/26/24 20:00 10/26/24 21:00 Temperature Temperature Source Pulse Rate 90 95 96 Respiratory Rate 20 H 17 16 Respiratory Effort Blood Pressure 101/61 114/63 131/66 H Blood Pressure Mean 74 80 87 Pulse Ox 93 97 96 Oxygen Delivery Method Nasal Cannula Nasal Cannula Nasal Cannula Oxygen Flow Rate (L/min) 3 3 3 10/26/24 22:00 Temperature Temperature Source Pulse Rate 95 Respiratory Rate 25 H Respiratory Effort Blood Pressure 118/62 Blood Pressure Mean 80 Pulse Ox 97 Oxygen Delivery Method Nasal Cannula Oxygen Flow Rate (L/min) 3 MDM MDM MDM Narrative Medical decision making narrative: Patient is a 69-year-old male presenting to the emergency department for chest pain and shortness of breath. Patient was seen and examined. He arrives tachycardic at 112 with respirations of 24. He is on his 3 L nasal cannula saturating 100%. Initial BP of 97/78. Differential includes but is not limited to: CHF, ACS, pneumonia, COPD exacerbation, PE, sepsis EKG shows sinus tachycardia at a rate of 119. There is a left posterior fascicular block. No arrhythmia. CBC with a leukocytosis of 19.5 and anemia of9.1. Normal lactate. CMP with hypercalcemia of 14.1. BNP elevated at 1693, no baseline to compare to. Initial troponin of 86 down to reflex of 82. Given the elevated BNP, chose not to give fluid bolus for hypercalcemia. CTA chest with no PE. There are chronic changes that can be seen in the CT report including a mass that is encasing the pulmonary arteries as well as metastatic disease. They also note redemonstration of a nodule around T6 and T7 that is showing erosion into the spine with epidural extension into the spinal cord. This appears more prominent when compared to prior imaging. MRI was recommended. Patient was reevaluated. He is alert and oriented x 3 but is delirious intermittently. He is unable to tell me if hes every received treatment for his cancer or any pertinent medical history. When asked a question, will give differing answers intermittently. He is unable to repeat questions I ask back tome. I do not think he has capacity to make his own medical decisions. I spoke tothe patient's son, Cat Mead, to discuss plan of care given the findings. Did speak with both him and about the patients status currently and the spinal findings. Discussed the mets and the possibility of going to [facility] for oncologic treatment with chemoradiation. They state that they were told last time he was here and had the same findings of the spine, he was told he would not be a surgical candidate. They were notified that if he has no intervention on this he could become paralyzed. They understand this. Extensive discussion over the phone about goals of care. Son did speak to the patient's other son who then together decided for the patient to be DNR comfort care. This was obtained over the phone with two-physician consent with Dr. Patel. Will admit for hospice and palliative care consults. Impression Chest pain Hypercalcemia CHF exacerbation Leukocytosis History & Record Review Discussion w/independent historian: Patient and Family Lab Data Attestation: I reviewed the patient's lab results. Labs: Laboratory Results - last 24 hr 10/26/24 10/26/24 10/26/24 17:00 17:00 17:00 WBC 19.5 H RBC 3.49 L Hgb 9.1 L Hct 30.2 L MCV 86.5 MCH 26.1 L MCHC 30.1 L RDW Std Deviation 54.4 H RDW Coeff of Jaquan 17.2 H Plt Count 297 MPV 8.9 Immature Gran % (Auto) 1.000 H Neut % (Auto) 85.0 H Lymph % (Auto) 9.2 L Dent % (Auto) 4.5 Eos % (Auto) 0.2 Baso % (Auto) 0.1 Absolute Neuts (auto) 16.6 H Absolute Lymphs (auto) 1.79 Nucleated RBC % 0 Sodium 138 Potassium 3.5 Chloride 98 Carbon Dioxide 28.6 Anion Gap 11 BUN 15 Creatinine 1.05 Est GFR (MDRD) Non-Af 77 BUN/Creatinine Ratio 13.9 Glucose 136 H Lactic Acid 1.4 Calcium 14.1 H* Total Bilirubin 0.33 Cancelled Direct Bilirubin 0.18 Cancelled AST 17 ALT Alkaline Phosphatase Troponin T High Sens Troponin T Hi Sens 2 Hr Troponin T Hi Sens 4Hr NT pro BNP II Total Protein Albumin Globulin 10/26/24 10/26/24 10/26/24 17:00 17:00 17:00 WBC RBC Hgb Hct MCV MCH MCHC RDW Std Deviation RDW Coeff of Jaquan Plt Count MPV Immature Gran % (Auto) Neut % (Auto) Lymph % (Auto) Dent % (Auto) Eos % (Auto) Baso % (Auto) Absolute Neuts (auto) Absolute Lymphs (auto) Nucleated RBC % Sodium Potassium Chloride Carbon Dioxide Anion Gap BUN Creatinine Est GFR (MDRD) Non-Af BUN/Creatinine Ratio Glucose Lactic Acid Calcium Total Bilirubin Direct Bilirubin AST Cancelled ALT 24 Cancelled Alkaline Phosphatase 118 Cancelled Troponin T High Sens 86 H* D Troponin T Hi Sens 2 Hr Troponin T Hi Sens 4Hr NT pro BNP II 1693 H Total Protein Albumin Globulin 10/26/24 10/26/24 10/26/24 17:00 17:00 17:00 WBC RBC Hgb Hct MCV MCH MCHC RDW Std Deviation RDW Coeff of Jaquan Plt Count MPV Immature Gran % (Auto) Neut % (Auto) Lymph % (Auto) Dent % (Auto) Eos % (Auto) Baso % (Auto) Absolute Neuts (auto) Absolute Lymphs (auto) Nucleated RBC % Sodium Potassium Chloride Carbon Dioxide Anion Gap BUN Creatinine Est GFR (MDRD) Non-Af BUN/Creatinine Ratio Glucose Lactic Acid Calcium Total Bilirubin Direct Bilirubin AST ALT Alkaline Phosphatase Troponin T High Sens Troponin T Hi Sens 2 Hr Troponin T Hi Sens 4Hr NT pro BNP II Cancelled Total Protein 6.5 Cancelled Albumin 2.8 L Cancelled Globulin 3.7 10/26/24 10/26/24 10/26/24 17:00 19:04 21:10 WBC RBC Hgb Hct MCV MCH MCHC RDW Std Deviation RDW Coeff of Jaquan Plt Count MPV Immature Gran % (Auto) Neut % (Auto) Lymph % (Auto) Dent % (Auto) Eos % (Auto) Baso % (Auto) Absolute Neuts (auto) Absolute Lymphs (auto) Nucleated RBC % Sodium Potassium Chloride Carbon Dioxide Anion Gap BUN Creatinine Est GFR (MDRD) Non-Af BUN/Creatinine Ratio Glucose Lactic Acid Calcium Total Bilirubin Direct Bilirubin AST ALT Alkaline Phosphatase Troponin T High Sens Troponin T Hi Sens 2 Hr 82 H* Troponin T Hi Sens 4Hr 84 H* NT pro BNP II Total Protein Albumin Globulin Cancelled ABG Data ABG results: ABG 10/26/24 17:43 Specimen Type FRANCY Sample Site Not entered VBG pH 7.48 H VBG pO2 60 H VBG HCO3 35 H VBG Total CO2 36 H VBG O2 Sat (Calc) 92 H VBG Base Excess 11 H POC Mix VBG pCO2 Pt Tmp 46.7 O2 Delivery Device Not entered Radiography Diagnostic Testing: Clinical Impression(s) from Imaging Studies Chest CTA 10/26/24 17:08 IMPRESSION: 1. No large central filling defect to suggest pulmonary embolism. There is persistent encasement and narrowing of left main and segmental pulmonary arteries from large left upper lobe mass extending into the hilar region. 2. Interval increase in size of previously seen large left upper lobe mass extending into the left suprahilar region and laterally to the chest wall with erosion of multiple ribs as mentioned above. 3. Multiple bilateral pulmonary nodules as well as enlarged mediastinal and axillary lymph node consistent with underlying metastatic disease. 4. There is redemonstration of pleural-based nodularity along right posterolateral lung region at level of T6 and T7 level with large metastatic deposit accompanied with destructive changes and erosion of posterior element of midthoracic spine extending from T5-T7. There is epidural extension of this mass into right aspect of spinalcord. These findings are more prominent when compared to prior and are concerning for spinal cord compression. MRI spine is recommended for better characterization. 5. Large left adrenal mass measuring 3.3 cm concerning for metastatic disease. Red Alert: The critical information above was relayed directly by me by telephone to Maite Menjivar on 10/26/2024 at 7:38 pm with readback verification. Reading Location: [facility] Abdomen/Pelvis CT 10/26/24 17:13 IMPRESSION: Mildly increased size of an infrarenal abdominal aortic aneurysm. Stable bilateral common iliac artery aneurysms. Bilateral lower lobe metastatic disease. Stable left adrenal nodule. Reading Location: [id number] Chest X-Ray 10/26/24 18:25 IMPRESSION: 1. Left apical mass with prominent bilateral hilar region likely representing underlying lymphadenopathy. No definite interval change since prior study. 2. Bilateral small pleural effusions. Reading Location: [facility] Discharge Plan Triage Chief Complaint: Chest Pain ED Provider: Maite Menjivar Dx/Rx/DC Orders Prescriptions: No Action gabapentin 300 mg capsule 300 mg PO QHS paroxetine HCl 10 mg tablet 10 mg [...] release 24 hr 25 mg PO DAILY insulin lispro protamin-lispro [Humalog Mix 75-25 KwikPen] 100 unit/mL (75-25)insulin pen 15 unit subcut BIDCM Rybelsus 7 mg tablet 7 mg PO DAILY prednisone 5 mg tablet 15 mg PO DAILY Complex B-100 Tablet Extended Release 1 tab PO DAILY sennosides-docusate sodium [Stimulant Laxative Plus] 8.6-50 mg Tablet 2 tab PO BID Qty: 0 0RF lorazepam 1 mg tablet 0.5 mg PO TID PRN (Reason: anxiety) Qty: 90 0RF cephalexin 500 mg capsule 500 mg PO 4XD 7 Days Qty: 28 0RF potassium chloride 20 mEq tablet,ER particles/crystals 20 meq PO BID Qty: 20 0RF acetaminophen 500 mg Tablet 1,000 mg PO Q8 PRN (Reason: pain/fever) Qty: 0 0RF lidocaine 5 % Adhesive Patch,Medicated 1 patch topical DAILY Qty: 30 0RF Protocol: *Topical Application Instructions APPLICATION INSTRUCTIONS: to back. Rx Instructions: to upper back. midodrine 5 mg tablet 10 mg PO TIDCM Qty: 180 0RF oxycodone 10 mg tablet 10 mg PO Q6H 30 Days Qty: 1 0RF Rx Instructions: Per Efren Hollingsworth NP miscellaneous medical supply Misc 1 ea miscellaneous ONCE Qty: 1 0RF Rx Instructions: [facility] REFERRAL. The patient is requiring extensive care at home, beyond what [facility] is able to provide. He has a pressure ulcer that is only addressed when his friend is helping, has had recurrent ED visits, has required blood transfusions and electrolyte replacement after missing home medications. He is routinely having symptomatic hypotension despite being on midodrine. His pain is not adequately controlled and he has been having multiple falls. Primary Care Provider: Angelica Rodriguez Referrals: Angelica Rodriguez MD [Primary Care Provider] - Print Language: Georgian What to do if you have Problems For any increased pain, shortness of breath, bleeding, nausea or vomiting, chestpain, or any unexpected problems, contact your Primary Care Provider. Call [facility] ([phone]) or report to the closest Emergency Room. Call 911 if necessary. 10/26/242226 <Electronically signed by Maite Menjivar MD> Cosigner Signature (if applicable): CC: Dr. Angelica Rodriguez MD ~ Signed [facility] Work Phone: 1(185) 440-905908-07-2025 Radiology Diagnostic study [facility]07-28-2025 Telephone encounter Note* Telephone Encounter - Ilana Neal LPN - 10/09/2024 11:49 AM EDT Note faxed as requested. Ilana Neal LPN [facility]07-28-2025 Miscellaneous Notes* Telephone Encounter - Ilana Neal LPN - 10/09/2024 11:49 AM EDT Note faxed as requested. Ilana Neal LPN * Telephone Encounter - Elena Goldsmith - 10/09/2024 10:33 AM EDT Please fax most recent med onc note to [facility] for palliative care at [phone] attn: Adarsh. documented in this encounter[facility]25 NoteHNO ID: [id number] Author: LAURA SMILEY RN Service: ? Author Type: Registered Nurse Type: Progress Notes Filed: 10/09/2024 10:41 Note Text: Written discharge instructions given and reviewed with patient. Patient verbalizes understanding. Encouraged to call with any questions or concerns. Instruction for follow up appointment given by Dr. Dunaway.[facility]07-28-2025 History of Present illness Narrative* Laura Smiley RN - 10/09/2024 10:40 AM EDT Written discharge instructions given and reviewed with patient. Patient verbalizes understanding. Encouraged to call with any questions or concerns. Instruction for follow up appointment given by . documented in this encounterSelect [facility] [place]25 NoteHNO ID: [id number] Author: VA DUNAWAY MD Service: ? Author [...] delayed side effects were reviewed. Va Dunaway [facility]07-28-2025 History of Present illness Narrative* Va Dunaway MD - 10/09/2024 10:34 AM EDT Radiation Oncology - On Treatment Review (OTR) [...] side effects were reviewed. Va Dunaway MD * Laura Smiley RN - 10/09/2024 10:15 AM EDT Radiation Therapy - Nursing Note (OTV) PATIENT NAME: Rey Mead PATIENT October 09, 2024 [facility] FACILITY/LOCATION: [place] NURSING NOTE TYPE: TITLE I PARAPROFESSIONAL Subjective Data See pain assessment Additional Data Do you want to see a Truck Body Repairer? No Status: Patient is male Stress Scale: On a scale of 0 to 10, what number best describes how much distress you have experienced in the past week?(0 being no distress and 10 being extreme distress) 5 Social work notified: Pt denied need to see social sciences chair at this time. Nursing Assessment Fatigue: none [...] None Bowel Function: normal bowel movements Erythema/Hyperpigmentation:none Desquamation:dry desquamation Rash:none Skin Care: None Skin Sensation: mild itching Focused Assessment TITLE I PARAPROFESSIONAL: Alopecia: no. Headache: none. Vision changes: none. Arm/leg numbness: none. Limb coordination:mild. Memory changes: none. Syncope: none. Disorientation: none. Seizures: none. Hearing changes: No. SIGNED by: Laura Smiley RN documented in this encounterSelect [facility] Telephone encounter Note * Telephone Encounter - Elena Goldsmith - 10/09/2024 10:33 AM EDT Please fax most recent med onc note to [facility] for palliative care at [phone] attn: Adarsh. [facility] Work Phone: [phone]) 664-891507-28-2025 NoteHNO ID: [id number] Author: LAURA SMILEY RN Service: ? Author Type: Registered Nurse Type: Progress Notes Filed: 10/09/2024 10:51 Note Text: Radiation Therapy - Nursing Note (OTV) PATIENT NAME: Rey Mead PATIENT October 09, 2024 [facility] FACILITY/LOCATION: [place] NURSING NOTE TYPE: TITLE I PARAPROFESSIONAL Subjective Data See pain assessment Additional Data Do you want to see a Truck Body Repairer? No Status: Patient is male Stress Scale: On a scale of 0 to 10, what number best describes how much distress you have experienced in the past week?(0 being no distress and 10 being extreme distress) 5 Social work notified: Pt denied need to see social sciences chair at this time. Nursing Assessment Fatigue: none [...] None Bowel Function: normal bowel movements Erythema/Hyperpigmentation:none Desquamation:dry desquamation Rash:none Skin Care: None Skin Sensation: mild itching Focused Assessment TITLE I PARAPROFESSIONAL: Alopecia: no. Headache: none. Vision changes: none. Arm/leg numbness: none. Limb coordination: mild. Memory changes: none. Syncope: none. Disorientation: none. Seizures: none. Hearing changes: No. SIGNED by: Laura Smiley [facility] NoteEducation (HEMAWS) REY MEAD ([id number]) 1955 M Date Time Provider Department 10/09/24 [...] 1 Puff as instructed once daily. - [id number] INHALATION Inhale as instructed. - ALBUTEROL INHALATION [...] daily. Encounter Status:Closed by LAURA SMILEY on 10/09/24[facility] 10-05-2024 Telephone encounter Note* Telephone Encounter - Enriqueta Amado RN - 10/05/2024 1:29 PM EDT Madeleine PT from [facility] called to report that pt's BP has stabilized. Pt followed up with PCP today as well. Pt wants to come in tomorrow to resume radiation. Dr Dunaway aware and pt ok to resume. Therapists aware and scheduled. Pt's friend that transports him is Al and I called him and notified him of the appointment at [phone]. Madeleine notified as well at [phone]. [facility]07-24-2025 Miscellaneous Notes* Telephone Encounter - Enriqueta Amado RN - 10/05/2024 1:29 PM EDT Madeleine PT from [facility] called to report that pt's BP has stabilized. Pt followed up with PCP today as well. Pt wants to come in tomorrow to resume radiation. Dr Dunaway aware and pt ok to resume. Therapists aware and scheduled. Pt's friend that transports him is Al and I called him and notified him of the appointment at [phone]. Madeleine notified as well at [phone]. * Telephone Encounter - Enriqueta Amado RN - 10/02/2024 2:38 PM EDT Albertina, OT for [facility], called to report that patient is home [...] on . Therapists aware. documented in this encounter[facility] Telephone encounter Note * Telephone Encounter - Jacy Cao RN - 10/03/2024 12:23 PM EDT Kerrie from with [facility] called to ask for refill [...] Kerrie to verify we have sent in refill.[facility] [place]. [facility]07-22-2025 Miscellaneous Notes* Telephone Encounter - Jacy Cao RN - 10/03/2024 12:23 PM EDT Kerrie from with [facility] called to ask for refill [...] Kerrie to verify we have sent in refill.[facility] [place]. documented in this encounterSelect [facility] [place] Telephone encounter Note * Telephone Encounter - Enriqueta Amado RN - 10/02/2024 2:38 PM EDT Albertina, OT for [facility], called to report that patient is home [...] update on . Therapists aware. [facility]07-14-2025 [facility]07-09-2025 [facility]06-30-2025 Progress note Author Wild Friend [facility] Note Date/Time September 11, 2024 5:35 pm [facility] Medical Records Department [address] [place] [address] Progress Note 09/11/24 1733 MR#: [id number] Acct: [id number] Name: REY MEAD Rep #:[id number] : 1955 69 From: Wild Santos DO PCP: Dr. Angelica Rodriguez MD Status:ADM IN Location: [place] [address] Progress Note Hgb has been holding steady. [...] is a 69-year-old male who presented to [facility] ED on 09/04/2024 with generalized weakness with a fall. Septic shock and acute hypoxia suspected secondary to pneumonia and COPD exacerbation, gram-positive bacteremia ? Event Marketing Representative following. ID consulted. On home oxygen, requiring [...] as an outpatient. Visit Charges Inpatient E&M: 28374 Subs Hosp L3 09/11/24 1207 <Electronically signed by Wild Santos DO> Wild Santos DO Cosigner Signature (if applicable): CC: ~ Signed [facility] Work Phone: 1(755) 684-589006-30-2025 Consult note Author Marina Garrido [facility] Note Date/Time September 11, 2024 2:03 pm [facility] Medical Records Department [address] [place] [address] Counseling Note - Pharmacy 09/11/24 1402 MR#: [id number] Acct: [id number] Name: REY MEAD Rep #:[id number] : 1955 69 From: Marina Garrido PCP: Dr. Angelica Rodriguez MD Status:ADM IN Location: [place] [address] Pharmacy [facility] Counseling Pharmacy Service has performed discharge medication [...] signed by Marina Garrido> Date _ Marina Garrido Cosigner Signature (if applicable): Date CC: ~ Signed [facility] Work Phone: 1(116) 824-909006-30-2025 Discharge summary Author Jose Zhang [facility] Note Date/Time September 11, 2024 1:10 pm [facility] Medical Records Department [address] [place] [address] Discharge Summary 09/11/24 0956 MR#: [id number] Acct: [id number] Name: REY MEAD Rep #:[id number] : 1955 69 From: Jose Eisenberg PCP: Dr. Angelica Rodriguez MD Status:ADM IN Location: [place] [address] Providers Date of Admission: 09/04/24 Date of Discharge: 09/11/24 Primary Care Physician: Dr. Angelica Rodriguez MD Consultations 09/04/24 16:03 Consult: Onc/Wound/bottle label inspector Routine Comment: Reason for Consult:: left 5th toe discoloration/injury/wound 09/05/24 00:15 Consult: Event Marketing Representative / Pulmonary Medicine Routine Consulting Provider: Intensivists/Pulmonary Med Reason for Consult: Vasopressor Support EMERGENT Consult: No Notified: Yes Date Notified: 09/05/24 Time Notified: 06:19 Method of Notification: Text 09/05/24 10:14 Consult: Gastroenterology Routine Consulting Provider: [facility] Reason for Consult: acute on chronic [...] is a 69-year-old male who presented to [facility] ED on 09/04/2024 with generalized weakness with a fall. 1. Septic shock and acute hypoxia suspected secondary to pneumonia and COPD exacerbation, gram-positive bacteremia ? Event Marketing Representative following. ID consulted. On home oxygen, requiring [...] discontinued. Patient has intermittent PVCs on the pharmacy buyer. 09/07: Patient had burning sensation with IV [...] mass suggestive of possible metastasis. Reading Location: [facility] Medications at Discharge Home Medications albuterol sulfate [...] Provider: Jose Zhang Primary Care Provider: Angelica Rodriguez Consulting Providers: Serina Juan; Stanton Ortega; Romain [...] 90 0RF Referrals / Follow Up: Angelica Rodriguez MD [Primary Care Provider] - Romain Bazzi MD [Med Staff - Active Staff] - Within 1 Month Disposition Disposition (needs filled in before D/C Order can be placed): Home Health Service Charges/Coding Visit Charges Inpatient E&M: 83208 Disch Hosp >30min 09/11/24 1256 <Electronically signed by Jose Zhang MD> Cosigner Signature (if applicable): CC: Dr. Angelica Rodriguez MD; Dr. Jose Zhang MD~ Signed ADDENDUM by Dr. Jose Zhang MD on 09/11/24 at 1310 Addendum I have reviewed the oxygen testing, and this patient qualifies for the home equipment and portability. The patient is mobile in the home and the community. Prescription for Keflex 500 mg 4 times daily for 1 week sent to [facility] retail pharmacy. 09/11/24 1310<Electronically signed by Jose Zhang MD> Cosigner Signature (if applicable): cc: Dr. Angelica Rodriguez MD; Dr. Jose Zhang MD ~* Signed [facility] Work Phone: 1(392) 414-274606-30-2025 Discharge summary Author Jose Zhang [facility] Note Date/Time September 11, 2024 12:5 6pm [facility] Medical Records Department [address] [place] [address] Instructions for Home/Discharge Instructions 09/11/24 0947 MR#: [id number] Acct: [id number] Name: REY MEAD Rep #:[id number] : 1955 69 From: Jose Eisenberg PCP: Dr. Angelica Rodriguez MD Status:ADM IN Discharge Instructions DC O2, [...] Provider: Jose Zhang Primary Care Provider: Angelica Rodriguez Consulting Providers: Serina Juan; Stanton Ortega; Romain [...] 90 0RF Referrals / Follow Up: Angelica Rodriguez MD [Primary Care Provider] - Romain Bazzi MD [Med Staff - Active Staff] - Within 1 Month Disposition Disposition (needs filled in before D/C Order can be placed): [facility] 09/11/24 0955<Electronically signed by Jose Zhang MD>Jose Zhang MD CC: Dr. Stanton Ortega DO; Dr. Angelica Rodriguez MD; Dr. Serina Juan MD; Dr. Romain Bazzi MD ~ Signed ADDENDUM by Dr. Jose Zhang MD on 09/11/24 at 1256 ID wrote prescription for Keflex 500 mg 4 times daily for 7 days 09/11/24 1256<Electronically signed by Jose Zhang MD>Jose Zhang MD cc: Dr. Stanton Ortega DO; Dr. Angelica Rodriguez MD; Dr. Serina Juan MD; Dr. Romain Bazzi MD ~* Signed [facility] Work Phone: 1(601) 323-547006-30-2025 Progress note Author Margarito Nunes [facility] Note Date/Time September 11, 2024 12:4 3pm [facility] Medical Records Department [address] [facility] [place] [address] Progress Note - Infect Disease 09/11/24 1241 MR#: [id number] Acct: [id number] Name: REY MEAD Rep #:[id number] : 1955 69 From: Margarito Nunes MD PCP: Dr. Angelica Rodriguez MD Status:ADM IN Location: [place] [address] ID ID: Route of nutrition/ use of [...] Cosigner Signature (if applicable): CC: ~ Signed [facility] Work Phone: 1(337) 233-754806-30-2025 Hospital Discharge instructionsAdditional Instructions Advised BMP in 1 week ID wrote prescription for Keflex 500 mg 4 times daily for 7 days Date of Discharge: 09/11/24[facility] Work Phone: 1(915) 289-737606-30-2025 [facility]06-29-2025 Progress note Author Jose Zhang [facility] Note Date/Time September 10, 2024 1:02 pm [facility] Medical Records Department [address] [place] [address] Progress Note - Hospitalist 09/10/24 1259 MR#: [id number] Acct: [id number] Name: REY MEAD Rep #:[id number] : 1955 69 From: Jose Eisenberg PCP: Dr. Angelica Rodriguez MD Status:ADM IN Location: [place] [address] Reason for Visit Reason for Visit: Diagnoses [...] 89.1 H, Lymph % (Auto) 6.6 L, Dent % (Auto) 2.8, Eos % (Auto) 0.0, [...] is a 69-year-old male who presented to [facility] ED on 09/04/2024 with generalized weakness with a fall. 1. Septic shock and acute hypoxia suspected secondary to pneumonia and COPD exacerbation, gram-positive bacteremia ? Event Marketing Representative following. ID consulted. On home oxygen, requiring [...] discontinued. Patient has intermittent PVCs on the pharmacy buyer. 09/07: Patient had burning sensation with IV [...] on09/06 was unremarkable.p.o. PPI daily. 09/07: H&H 8.09/08%. Platelet count 03/22/1978 K. Monitor CBC 5. [...] abdominal aorta and iliac arteries. Reading Location: [id number] Toe X-Ray 09/04/24 11:06 IMPRESSION: No acute fracture is seen. Reading Location: [id number] Chest/Abdomen/Pelvis CT 09/04/24 14:32 IMPRESSION: Heterogeneous consolidation in the left upper lobe with a central necrosis and left hilar lymphadenopathy. A neoplastic process should be ruled out. Tiny nodules in the right lung as described. Left adrenal mass suggestive of possible metastasis. Reading Location: [id number] Charges/Coding Visit Charges Inpatient E&M: 17663 Subs Hosp L2 09/10/24 1302 <Electronically signed by Jose Zhang MD> Cosigner Signature (if applicable): CC: ~ Signed [facility] Work Phone: 1(324) 354-298706-28-2025 Progress note Author Jose Zhang [facility] Note Date/Time September 09, 2024 2:01 pm [facility] Medical Records Department [address] [place] [address] Progress Note - Hospitalist 09/09/24 1358 MR#: [id number] Acct: [id number] Name: REY MEAD Rep #:[id number] : 1955 69 From: Jose Eisenberg PCP: Dr. Angelica Rodriguez MD Status:ADM IN Location: [place] [address] 1 Reason for Visit Reason for Visit: Diagnoses [...] is a 69-year-old male who presented to [facility] ED on 09/04/2024 with generalized weakness with a fall. 1. Septic shock and acute hypoxia suspected secondary to pneumonia and COPD exacerbation, gram-positive bacteremia ? Event Marketing Representative following. ID consulted. On home oxygen, requiring [...] discontinued. Patient has intermittent PVCs on the pharmacy buyer. 3. Acute on chronic debility ? PT/OT/case [...] on09/06 was unremarkable.p.o. PPI daily. 09/07: H&H 8.09/08%. Platelet count 03/22/1978 K. Monitor CBC 5. [...] in the left upper lobe. Reading Location: [id number] Pelvis X-Ray 09/04/24 11:06 IMPRESSION: No acute [...] mass suggestive of possible metastasis. Reading Location: [id number] Charges/Coding Visit Charges Inpatient E&M: 26323 Subs Hosp L2 09/09/24 1401 <Electronically signed by Jose Zhang MD> Cosigner Signature (if applicable): CC: ~ Signed [facility] Work Phone: 1(705) 144-666506-27-2025 Progress note Author Jose Zhang [facility] Note Date/Time September 08, 2024 5:36 pm [facility] Medical Records Department [address] [place] [address] Progress Note - Hospitalist 09/08/24 1732 MR#: [id number] Acct: [id number] Name: REY MEAD Rep #:[id number] : 1955 69 From: Jose Eisenberg PCP: Dr. Angelica Rodriguez MD Status:ADM IN Location: [place] [address] Reason for Visit Reason for Visit: Diagnoses [...] is a 69-year-old male who presented to [facility] ED on 09/04/2024 with generalized weakness with a fall. 1. Septic shock and acute hypoxia suspected secondary to pneumonia and COPD exacerbation, gram-positive bacteremia ? Event Marketing Representative following. ID consulted. On home oxygen, requiring [...] on09/06 was unremarkable.p.o. PPI daily. 09/07: H&H 8.09/08%. Platelet count 03/22/1978 K. Monitor CBC 5. [...] mass suggestive of possible metastasis. Reading Location: [id number] Charges/Coding Visit Charges Inpatient E&M: 50241 Subs Hosp L2 09/08/24 1736 <Electronically signed by Jose Zhang MD> Cosigner Signature (if applicable): CC: ~ Signed ADDENDUM by Dr. Jose Zhang MD on 09/08/24 at 1736 Addendum Clinical Impression(s) from Imaging Studies Chest X-Ray 09/04/24 11:02 IMPRESSION: Stable examination with evidence of hyperinflation and pulmonary hypertension. Stable nodular density and/or infiltrate in the left upper lobe. Reading Location: [id number] Pelvis X-Ray 09/04/24 11:06 IMPRESSION: No acute [...] mass suggestive of possible metastasis. Reading Location: BERTHA Echocardiogram 09/06/24 16:43 Interpretation Summary The LV ejection fraction is 60 %. Stage 1 diastolic dysfunction. The left atrium is mildly enlarged. Moderate mitral valve annular calcification. Trivial mitral valve regurgitation. No valvular vegetations noted on the surface echocardiogram. Consider transesophageal echocardiogram for further evaluation if clinically indicated. Ordering Physician: Stanton Ortega Referring Physician: ANGELICA RODRIGUEZ Performed By: Krystal OLIVERA, Ramila and Student 09/08/24 1736<Electronically signed by Jose Zhang MD> Cosigner Signature (if applicable): cc: ~* Signed [facility] Work Phone: 1(296) 405-263106-27-2025 Progress note Author [facility] Note Date/Time September 08, 2024 11:3 1am [facility] Medical Records Department [address] [place] [address] Progress Note - Infect Disease 09/08/24 1130 MR#: [id number] Acct: [id number] Name: REY MEAD Rep #:[id number] : 1955 69 From: Romain shah MD PCP: Dr. Angelica Rodriguez MD Status:ADM IN Location: [place] [address] Physical Exam Narrative Feeling better, no fever, [...] Cosigner Signature (if applicable): CC: ~ Signed [facility] Work Phone: 1(979) [phone] Consult note Author Tiff Oconnell [facility] Note Date/Time September 07, 2024 6:01 pm [facility] Medical Records Department [address] [place] [address] Anesthesia Postop Eval II 09/07/24 180 MR#: [id number] Acct: [id number] Name: REY MEAD Rep #:[id number] : 1955 69 From: Tiff Oconnell TON CONTAINER FILLER PCP: Dr. Angelica Rodriguez MD Status:ADM IN Y Race: C Location: [address] Anesthesia Postop Eval I Sum Postop [...] Pain Level: 0 nausea: No Vomiting: No 09/07/241800 <Electronically signed by Tiff betancur CRNA> Date _ Tiff Oconnell [employer]ON CONTAINER FILLER Cosigner Signature: Date CC: ~ Signed [facility] Work Phone: 1(626) 603-596206-26-2025 Consult note Author [facility] Note Date/Time September 07, 2024 5:25 pm [facility] Medical Records Department [address] [place] [address] Anesthesia Postop Eval I 09/07/241722 MR#: [id number] Acct: [id number] Name: REY MEAD Rep #:[id number] : 1955 69 From: Jameel Lakhani MD PCP: Dr. Angelica Rodriguez MD Status:ADM IN Y Race: C Location: [place] [address] Anesthesia: Postop Eval I Current Vital Signs [...] MD Cosigner Signature: Date CC: ~ Signed [facility] Work Phone: 1(838) 188-849206-26-2025 Consult note Author [facility] Note Date/Time September 07, 2024 4:30 pm [facility] Medical Records Department [address] [place] [address] Pre-Anesthesia Evaluation 09/07/24 1621 MR#: [id number] Acct: [id number] Name: REY MEAD Rep #:[id number] : 1955 69 From: Jameel Lakhani MD PCP: Dr. 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 Female HX of Motion Sickness HX of N/V After Surgery Non-Smoker Duration of Surgery greater than 60 minutes Number of Risk Factors PONV Score Height & Weight Height & Weight: Anesthesia: Height & Weight Height 5 ft 9 in 09/07/24 14:16 Weight: 83.8 kg 09/07/24 14:16 Body Mass Index (BMI) 27.3 09/07/24 06:00 Respiratory Assessment Respiratory Assessment - 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: Respiratory Tract Infection Hx - 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 Hx Respiratory Tract Infection No 09/07/24 08:17 STOP Sleep Apnea STOP Sleep Apnea - 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: STOP Sleep Apnea - 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 Hx Hypertension Yes: CONTROLLED WITH MED 09/05/24 [...] Tobacco Use History 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: 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 Tobacco Use Smoking Status Former smoker 09/04/24 16:22 Hx Tobacco Use No 09/04/24 16:22 Years Smoking Packs Smoked per Day Smoking Cessation Date was Yes - quit smoking within 15 09/04/24 16:22 within the last 15 years years Hx Smoking Cessation Date 03/15/15 09/04/24 16:22 Hx Smoking Cessation No 09/04/24 16:22 Counseling Hematologic Medial History Hematologic Hx - 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 Specify any problems Hx of Preganancy in last 3 N/A 09/04/24 16:22 Months Nurse Filling Out Transfusion DSLOAN 09/04/24 16:22 & Questions: Date: 09/04/24 09/04/24 16:22 Time: 16:23 09/04/24 16:22 Patient unable to answer at this time (ie. confused, unrespo /Reproduction History /Reproductive 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: /Reproductive Hx- 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 Hx Now No 09/07/24 08:17 Gestational Age [...] mls @ 15 mls/hr 09/04/24 16:07 IV .[id number] PRN Saline Flush Sodium Chloride 250 mls @ 15 mls/hr 09/04/24 16:07 IV .[id number] PRN Additional IVPB Infusion Lactated Ringer's 1,000 [...] 100 Unit/Ml Insuln.Pen SC Not Given ACHS [facility] Protocol Insulin Lispro Protam/Lispro Human 15 unit 09/06/24 08:00 09/07/24 15:37 Insulin Human 75/25 [place] SC Not Given BIDCM ELIUD Lorazepam [...] 40 Mg Tablet PO Not Given DAILY ELIUD Paroxetine HCl 10 mg 09/05/24 10:00 09/07/24 11:52 Paroxetine 10 Mg Tablet PO Not Given DAILY ELIUD Potassium Phos/Sodium Phos 1 packet 09/06/24 11:00 [...] 0.4 Mg Capsule PO Not Given DAILY [facility] PFSH Medical History Alcohol use Excessive bleeding [...] MD Cosigner Signature: Date CC: ~ Signed [facility] Work Phone: 1(869) [phone] Progress note Author Wild Friend [facility] Note Date/Time September 07, 2024 4:15 pm [facility] Medical Records Department [address] [place] [address] Progress Note 09/07/24 1613 MR#: [id number] Acct: [id number] Name: REY MEAD Rep #:[id number] : 1955 69 From: Wild Santos DO PCP: Dr. Angelica Rodriguez MD Status:ADM IN Location: [place] [address] Progress Note Patient completed bowel prep yesterday [...] ASA of 3. Visit Charges Inpatient E&M: 45603 Subs Hosp L2 09/07/24 1615 <Electronically signed by Wild Santos DO> Wild Santos DO Cosigner Signature (if applicable): CC: ~ Signed [facility] Work Phone: 1(604) [phone] Progress note Author Jose Zhang [facility] Note Date/Time September 07, 2024 4:13 pm [facility] Medical Records Department [address] [place] [address] Progress Note - Hospitalist 09/07/24 1146 MR#: [id number] Acct: [id number] Name: REY MEAD Rep #:[id number] : 1955 69 From: Jose Eisenberg PCP: Dr. Angelica Rodriguez MD Status:ADM IN Location: [place] [address] Reason for Visit Reason for Visit: Diagnoses [...] is a 69-year-old male who presented to [facility] ED on 09/04/2024 with generalized weakness with a fall. 1. Septic shock and acute hypoxia suspected secondary to pneumonia and COPD exacerbation, gram-positive bacteremia ? Event Marketing Representative following. ID consulted. On home oxygen, requiring [...] in the left upper lobe. Reading Location: [id number] Pelvis X-Ray 09/04/24 11:06 IMPRESSION: No acute abnormality is seen. Dense atherosclerotic calcification of the abdominal aorta and iliac arteries. Reading Location: [id number] Toe X-Ray 09/04/24 11:06 IMPRESSION: No acute fracture is seen. Reading Location: [id number] Chest/Abdomen/Pelvis CT 09/04/24 14:32 IMPRESSION: Heterogeneous consolidation in the left upper lobe with a central necrosis and left hilar lymphadenopathy. A neoplastic process should be ruled out. Tiny nodules in the right lung as described. Left adrenal mass suggestive of possible metastasis. Reading Location: [facility] Charges/Coding Visit Charges Inpatient E&M: 22536 Subs Hosp L2 09/07/24 1613 <Electronically signed by Jose Zhang MD> Cosigner Signature (if applicable): CC: ~ Signed [facility] Work Phone: 1(208) 659-986106-26-[address] [facility]2024 Consult note Author Romain Bazzi [facility] Note Date/Time September 07, 2024 10:0 4am [facility] Medical Records Department [address] [place] [address] Consultation - Infectious Dx 09/07/24 0959 MR#: [id number] Acct: [id number] Name: REY MEAD Rep #:[id number] : 1955 69 From: Romain shah MD PCP: Dr. Angelica Rodriguez MD Status:ADM IN Location: [place] [address] 1 Assessment & Plan Assessment/Plan (1) Septic [...] performed and neg except as noted above. [facility] Medical History Alcohol use Excessive bleeding History [...] Cosigner Signature (if applicable): CC: Dr. Angelica Rodriguez MD~ Signed [facility] Work Phone: 1(480) 812-370506-25-2025 Progress note Author Stanton Ortega [facility] Note Date/Time September 06, 2024 4:43 pm [facility] Medical Records Department [address] [place] [address] Progress Note - Hospitalist 09/06/24 1213 MR#: [id number] Acct: [id number] Name: REY MEAD Rep #:[id number] : 1955 69 From: Stanton mir DO PCP: Dr. Angelica Rodriguez MD Status:ADM IN Location: [place] [address] Reason for Visit Reason for Visit: Diagnoses [...] comfortably in bed in no acute distress. [place] similar today to previous days. No new [...] is a 69-year-old male who presented to [facility] ED on 09/04/2024 with generalized weakness with a fall. 1. Septic shock and acute hypoxia suspected secondary to pneumonia and COPD exacerbation, gram-positive bacteremia ? Event Marketing Representative following. ID consulted. On home oxygen, requiring [...] 35 minutes. Charges/Coding Visit Charges Inpatient E&M: 19839 Subs Hosp L2 09/06/24 4258 <Electronically signed by Stanton Ortega DO> Cosigner Signature (if applicable): CC: ~ Signed [facility] Work Phone: 1([phone]) 312-814106-25-2025 Progress note Author Addy Nelson [facility] Note Date/Time September 06, 2024 1:26 pm [facility] Medical Records Department [address] [place] [address] Progress Note - Event Marketing Representative 09/06/24 0937 MR#: [id number] Acct: [id number] Name: REY MEAD Rep #:[id number] : 1955 69 From: Addy Nelson DO PCP: Dr. Angelica Rodriguez MD Status:ADM [facility] Assessment & Plan Assessment/Plan (1) Sepsis: (2) [...] noted above. This note was generated with [employer] dictation software. It may contain incorrectwords, spelling, [...] affect normal Charges/Coding Visit Charges Inpatient E&M: 74307 Subs Hosp L2 09/06/24 1326 <Electronically signed by Addy Nelson DO> Cosigner Signature (if applicable): CC: ~ Signed [facility] Work Phone: 1(291) 477-413306-25-2025 Consult note Author Tiff Oconnell [facility] Note Date/Time September 06, 2024 1:24 pm [facility] Medical Records Department [address] [place] [address] Anesthesia Postop Eval I 09/06/24 1240 MR#: [id number] Acct: [id number] Name: REY MEAD Rep #:[id number] : 1955 69 From: Tiff Oconnell CRNA PCP: Dr. Angelica Rodriguez MD Status:ADM IN Y Race: C Location: [address] Anesthesia: Postop Eval I Current Vital Signs [...] 09/06/24 1324 <Electronically signed by Tiff betancur TON CONTAINER FILLER> Date _ Tiff Oconnell [employer]ON CONTAINER FILLER Cosigner Signature: Date CC: ~ Signed [facility] Work Phone: 1(765) 620-338806-25-2025 Consult note Author [facility] Note Date/Time September 06, 2024 1:24 pm [facility] Medical Records Department [address] [place] [address] Anesthesia Postop Eval II 09/06/24 1324 MR#: [id number] Acct: [id number] Name: REY MEAD Rep #:[id number] : 1955 69 From: Tiff Oconnell CRNA PCP: Dr. Angelica Rodriguez MD Status:ADM IN Y Race: C Location: [place] [address] Anesthesia Postop Eval I Sum Postop Eval Completion status Anesthesia document: Postop Eval 1 completed: Yes Anesthesia Postop Eval I Summary Anesthesia Postop Eval I Summary: Anesthesia Postop Eval I: Assessment Summary Airway patent Yes 09/06/24 13:23 TON CONTAINER FILLER.CSIR Spontaneous unlabored Yes 09/06/24 13:23 TON CONTAINER FILLER.CSIR respirations Mental status nausea No 09/06/24 13:23 TON CONTAINER FILLER.CSIR Vomiting No 09/06/24 13:23 TON CONTAINER FILLER.CSIR Anesthesia Postop Eval I: Fluid Summary Crystalloid volume administer 500 09/06/24 13:23 TON CONTAINER FILLER.CSIR (ml) Colloids volume administered ( ml) Blood Product volume administered (ml) Total IV fluid infused 500 09/06/24 13:23 TON CONTAINER FILLER.CSIR Anesthesia Postop Eval I: Summary Notes Anesthesia Complication No 09/06/24 13:23 TON CONTAINER FILLER.CSIR Anesthesia Complication Comment: Post-operative progress note Anesthesia: Postop Eval II Evaluation Mental status: Awake Pain Level: 0 nausea: No Vomiting: No 09/06/24 1324 <Electronically signed by Tiff betancur CRNA> Date _ Tiff Oconnell CRNA Cosigner Signature: Date CC: ~ Signed [facility] Work Phone: 1(876) 140-959606-25-2025 Progress note Author Wild Santos [facility] Note Date/Time September 06, 2024 12:0 9pm [facility] Medical Records Department [address] [place] [address] Progress Note 09/06/24 1207 MR#: [id number] Acct: [id number] Name: REY MEAD Rep #:[id number] : 1955 69 From: Wild Santos DO PCP: Dr. Angelica Rodriguez MD Status:ADM IN Location: [place] [address] Progress Note Patient has been n.p.o. for [...] ASA of 3. Visit Charges Inpatient E&M: 34912 Subs Hosp L2 09/06/24 1209 <Electronically signed by Wild Santos DO> Wild Santos DO Cosigner Signature (if applicable): CC: ~ Signed [facility] Work Phone: [phone]) [phone] Consult note Author Ronnie Lei [facility] Note Date/Time September 06, 2024 11:3 9am [facility] Medical Records Department [address] [place] [address] Pre-Anesthesia Evaluation 09/06/24 1129 MR#: [id number] Acct: [id number] Name: REY MEAD Rep #:[id number] : 1955 69 From: Ronnie Lei MD PCP: Dr. 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 Female HX of Motion Sickness HX of N/V After Surgery Non-Smoker Duration of Surgery greater than 60 minutes Number of Risk Factors PONV Score Height & Weight Height & Weight: Anesthesia: Height & Weight Height 5 ft 9 in 09/06/24 01:22 Weight: 83.4 kg 09/06/24 03:21 Body Mass Index (BMI) 27.1 09/06/24 03:21 Respiratory Assessment Respiratory Assessment - 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: Respiratory Tract Infection Hx - 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 Hx Respiratory Tract Infection No 09/06/24 01:20 STOP Sleep Apnea STOP Sleep Apnea - 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: STOP Sleep Apnea - 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 Hx Hypertension Yes: CONTROLLED WITH MED 09/05/24 [...] Tobacco Use History 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: 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 Tobacco Use Smoking Status Former smoker 09/04/24 16:22 Hx Tobacco Use No 09/04/24 16:22 Years Smoking Packs Smoked per Day Smoking Cessation Date was Yes - quit smoking within 15 09/04/24 16:22 within the last 15 years years Hx Smoking Cessation Date 03/15/15 09/04/24 16:22 Hx Smoking Cessation No 09/04/24 16:22 Counseling Hematologic Medial History Hematologic Hx - 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: 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 Hx of Blood Transfusion No 09/04/24 16:22 [...] confused, unrespo /Reproduction History /Reproductive 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: /Reproductive Hx- 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 Hx Now No 09/06/24 01:20 Gestational Age [...] mls @ 15 mls/hr 09/04/24 16:07 IV .[id number] PRN Saline Flush Sodium Chloride 250 mls @ 15 mls/hr 09/04/24 16:07 IV .[id number] PRN Additional IVPB Infusion Sodium Chloride 1,000 mls @ 75 mls/hr 09/05/24 08:20 09/06/24 10:52 IV 09/06/24 12:00 0 mls/hr .[id number] ELIUD Infusion Pantoprazole Sodium 40 mg/ 100 [...] unit 09/06/24 08:00 09/06/24 09:46 Insulin Human [place] SC Not Given BIDCM ELIUD Lorazepam [...] Vancomycin Trough/Random Due [facility] 09/07/24 19:30 [facility] History Alcohol use Excessive bleeding History [...] regular rhythm, no murmurs and diaphoretic 09/06/24 1139 <Electronically signed by Ronnie Lei MD> Date _ Ronnie Lei MD Cosigner Signature: Date CC: ~ Signed [facility] Work Phone: 1(699) 265-764506-25-2025 Procedure [facility] 09-06-2024 Procedure [facility]06-25-2025 Consult note Author Eliseo Coyne [facility] Note Date/Time September 06, 2024 9:12 am [facility] Medical Records Department [address] [place] [address] Pharmacokinetic/Renal -Consult 09/06/24 0708 MR#: [id number] Acct: [id number] Name: REY MEAD Rep #:[id number] : 1955 69 From: Eliseo lockhart PCP: Dr. Angelica Rodriguez MD Status:ADM IN Location: [place] [address] Consult [facility] has been consulted [...] Date Stanton Ortega DO CC: ~ Signed [facility] Work Phone: 1(715) 226-450806-25-2025 Telephone encounter Note* Telephone Encounter - Elena Goldsmith - 09/06/2024 10:49 AM EDT Received call today to reschedule 09/05 appt with Angie. Stating that patient may be discharged elise couple of days. Patient is scheduled for 09/12. Caller requested to inform Dr. Dunaway as well. [facility] Work Phone: [phone]) [phone] Miscellaneous Notes* Telephone Encounter - Elena Goldsmith - 09/06/2024 10:49 AM EDT Received call today to reschedule 09/05 appt with Angie. Stating that patient may be discharged elise couple of days. Patient is scheduled for 09/12. Caller requested to inform Dr. Dunaway as well. * Telephone Encounter - Shilpi Brooks RN - 09/04/2024 4:12 PM EDT Patient admitted to [facility]. Will follow for discharge and schedule follow up with Dr. Gutierrez. Keiry Brooks RN documented [facility] Progress note Author Nell Hicks [facility] Note Date/Time September 05, 2024 8:21 pm [facility] Medical Records Department [address] [place] [address] Progress Note - Hospitalist 09/05/242020 MR#: [id number] Acct: [id number] Name: REY MEAD Rep #:[id number] : 1955 69 From: Nell Hicks MD PCP: Dr. Angelica Rodriguez MD Status:ADM IN Location: ICU ICU01-1 Hospitalist Note Changed level or care to PCU status given stable throughout the day. 09/05/242020 <Electronically signed by Nell Hicks MD> Cosigner Signature (if applicable): CC: ~ Signed [facility] Work Phone: 1(299) 481-858406-24-2025 Consult note Author Wild Santos [facility] Note Date/Time September 05, 2024 6:04 pm [facility] Medical Records Department [address] [place] [address] Consultation - GI 09/05/24 1759 MR#: [id number] Acct: [id number] Name: REY MEAD Rep #:[id number] : 1955 69 From: Wild Santos DO PCP: Dr. Angelica Rodriguez MD Status:ADM IN Location: ICU ICU01-1 HPI Consult Data Date of Consult: 09/05/24 HPI Narrative Reason for Consultation: Anemia HPI Narrative: 69-year-old male with history of ELLEN, lung cancer on radiation, COPD, BPH, diabetes, GERD, anxiety, CAD who presented to [facility] ED 09/06/2024 via EMS after a [...] not seen any signs of GI bleeding [facility] Medical History Alcohol use Excessive bleeding History [...] 87.6 H, Lymph % (Auto) 3.4 L, Dent % (Auto) 6.7, Eos % (Auto) 0.0, [...] of 3. Charges/Coding Visit Charges Inpatient E&M: 72236 Init Hosp L3 09/05/244 <Electronically signed by Wild Santos DO> Cosigner Signature (if applicable): CC: Dr. Angelica Rodriguez MD~ Signed [facility] Work Phone: 1(469) 975-272406-24-2025 Progress note Author Stanton [facility] Note Date/Time September 05, 2024 2:18 pm [facility] Medical Records Department [address] [place] [address] Progress Note - Hospitalist 09/05/24 1006 MR#: [id number] Acct: [id number] Name: REY MEAD Rep #:[id number] : 1955 69 From: Stanton mir DO PCP: Dr. Angelica Rodriguez MD Status:ADM IN Location: ICU ICU01-1 Reason [...] 90.2 H, Lymph % (Auto) 2.7 L, Dent % (Auto) 5.5, Eos % (Auto) 0.0, [...] Clarity Clear, Urine pH 6.0, Ur Specific [place] 1.010, Urine Protein 30 H, Urine Glucose [...] 87.6 H, Lymph % (Auto) 3.4 L, Dent % (Auto) 6.7, Eos % (Auto) 0.0, [...] mass suggestive of possible metastasis. Reading Location: [facility] Physical Exam Const alert, oriented x3 and [...] is a 69-year-old male who presented to [facility] ED on 09/04/2024 with generalized weakness with a fall. 1. Septic shock and acute hypoxia suspected secondary to pneumonia and COPD exacerbation ? Event Marketing Representative following. On home oxygen, requiring 4 L [...] that appeared to be his baseline. In [facility] records, hemoglobin 9.7 on CBC from 08/21. [...] 35 minutes. Charges/Coding Visit Charges Inpatient E&M: 37156 Subs Hosp L2 09/05/24 7383 <Electronically signed by Stanton Ortega DO> Cosigner Signature (if applicable): CC: ~ Signed [facility] Work Phone: 1([phone]) 748-841106-24-2025 Progress note Author Stanton Mosteller [facility] Note Date/Time September 05, 2024 1:59 pm [facility] Medical Records Department [address] [place] [address] Progress Note - Hospitalist 09/05/24 5927 MR#: [id number] Acct: [id number] Name: REY MEAD Rep #:[id number] : 1955 69 From: Stanton mir DO PCP: Dr. Angelica Rodriguez MD Status:ADM IN Location: ICU ICU01-1 Hospitalist Note Accessed most recent radiation oncology note from 08/28 in [facility] records. The following notes below are a [...] not done due to complications postradiation. 09/05/24 0427 <Electronically signed by Stanton Ortega DO> Cosigner Signature (if applicable): CC: ~ Signed [facility] Work Phone: 1(481) 523-985006-24-2025 Consult note Author Addy Nelson [facility] Note Date/Time September 05, 2024 12:2 7pm [facility] Medical Records Department [address] [place] [address] Consultation - Event Marketing Representative 09/05/24 0648 MR#: [id number] Acct: [id number] Name: REY MEAD Rep #:[id number] : 1955 69 From: Addy Nelson DO PCP: Dr. Angelica Rodriguez MD Status:ADM IN Location: ICU ICU01-1 Assessment [...] of his cancer related care through the [facility]. He stated that he is currently admits [...] to 131 with a potassium of 3.0. [facility] Medical History Alcohol use Excessive bleeding History [...] 90.2 H, Lymph % (Auto) 2.7 L, Dent % (Auto) 5.5, Eos % (Auto) 0.0, [...] Clarity Clear, Urine pH 6.0, Ur Specific [place] 1.010, Urine Protein 30 H, Urine Glucose [...] 87.6 H, Lymph % (Auto) 3.4 L, Dent % (Auto) 6.7, Eos % (Auto) 0.0, [...] in the left upper lobe. Reading Location: [id number]-B Pelvis X-Ray 09/04/24 11:06 IMPRESSION: No acute abnormality is seen. Dense atherosclerotic calcification of the abdominal aorta and iliac arteries. Reading Location: CID-[id number]-B Toe X-Ray 09/04/24 11:06 IMPRESSION: No acute fracture is seen. Reading Location: WAG-IHCQPBIAT-O Chest/Abdomen/Pelvis CT 09/04/24 14:32 IMPRESSION: Heterogeneous consolidation in the left upper lobe with a central necrosis and left hilar lymphadenopathy. A neoplastic process should be ruled out. Tiny nodules in the right lung as described. Left adrenal mass suggestive of possible metastasis. Reading Location: [facility] Charges/Coding Procedures Hospitalists Procedures: 34146 Critical Care 1st Hr 09/05/24 1227 <Electronically signed by Addy Nelson DO> Cosigner Signature (if applicable): CC: Dr. Angelica Rodriguez MD~ Signed [facility] Work Phone: 1(136) 166-330606-23-2025 Consult note Author Erica Cristobal [facility] Note Date/Time September 04, 2024 7:45 pm [facility] Medical Records Department [address] [place] [address] Pharmacokinetic/Renal -Consult 09/04/24 1832 MR#: [id number] Acct: [id number] Name: ERY MEAD Rep #:[id number] : 1955 69 From: Erica Lomeli PCP: Dr. Angelica Rodriguez MD Status:ADM IN Y Location: ICU ICU01-1 [...] Signature (if applicable): Date CC: ~ Signed [facility] Work Phone: 1(885) 453-356006-23-2025 History and physical note Author Serina Juan [facility] Note Date/Time September 04, 2024 6:40 pm [facility] Medical Records Department [address] [place] [address] H&P Exam - Hospitalist 09/04/24 1444 MR#: [id number] Acct: [id number] Name: REY MEAD Rep #:[id number] : 1955 69 From: Serina Juan MD PCP: Dr. Angelica Rodriguez MD Status:ADM IN Location: ICU ICU01-1 HPI - General General Date of Admission: 09/04/24 Date of Service: 09/04/24 Chief Complaint: fall, generalized weakness HPI Narrative REY MEAD, is a 69-year-old male with history of ELLEN, lung cancer on radiation, COPD, BPH, diabetes, GERD, anxiety, CAD who presented to [facility] ED 09/06/2024 via EMS after a [...] fluids. No other new or acute complaints. [facility] Medical History Alcohol use Excessive bleeding History [...] unit/mL (75-25) subcutaneous pen (Humalog Mix 75-25 TerezaikPen) metoprolol succinate 25 mg 25 mg PO [...] 90.2 H, Lymph % (Auto) 2.7 L, Dent % (Auto) 5.5, Eos % (Auto) 0.0, [...] Clarity Clear, Urine pH 6.0, Ur Specific [place] 1.010, Urine Protein 30 H, Urine Glucose [...] in the left upper lobe. Reading Location: [facility] Pelvis X-Ray 09/04/24 11:06 IMPRESSION: No acute abnormality is seen. Dense atherosclerotic calcification of the abdominal aorta and iliac arteries. Reading Location: [facility] Toe X-Ray 09/04/24 11:06 IMPRESSION: No acute fracture is seen. Reading Location: [facility] Assessment & Plan Assessment/Plan (1) Sepsis: PLAN: [...] right lobectomy - Follows with Dr. Valdemar Gutierrez on an outpatient basis #Chronic BPH with [...] bolus ordered Charges/Coding Visit Charges Inpatient E&M: 84414 Init Hosp L2 09/04/24 7330 <Electronically signed by Serina Juan MD> Cosigner Signature (if applicable): CC: Dr. Angelica Rodriguez MD; Dr. Serina Juan MD~ Signed ADDENDUM by Dr. Serina Juan MD on 09/04/24 at 1839 Sepsis Attestation Sepsis Note Date exam was performed: 09/04/24 Time exam was performed: 16:00 Sepsis Attestation: Sepsis re-evaluation was performed Response to fluids: Fluid responsive hypotension 09/04/24 1839<Electronically signed by Serina Juan MD> Cosigner Signature (if applicable): cc: Dr. Angelica Rodriguez MD; Dr. Serina Juan MD ~* Signed [facility] Work Phone: 1(372) 103-627206-23-2025 Discharge summary Author Janie Madsen [facility] Note Date/Time September 04, 2024 4:06 pm [facility] Medical Records Department [address] [place] [address] Emergency Department Summary 09/04/24 MR#: [id number] Acct: [id number] Name: REY MEAD Rep #:[id number] : 1955 69 From: Janie Madsen DO PCP: Dr. Angelica Rodriguez MD Status:ADM IN Location: ICU ICU01-1 HPI [...] have a fever. He denies urinary symptoms. [facility] Medical History Alcohol use Excessive bleeding [...] 90.2 H Lymph % (Auto) 2.7 L Dent % (Auto) 5.5 Eos % (Auto) 0.0 [...] Clarity Clear Urine pH 6.0 Ur Specific [place] 1.010 Urine Protein 30 H Urine Glucose [...] in the left upper lobe. Reading Location: [id number]-D Pelvis X-Ray 09/04/24 11:06 IMPRESSION: No acute abnormality is seen. Dense atherosclerotic calcification of the abdominal aorta and iliac arteries. Reading Location: NVI-FLYORJGQN-T Toe X-Ray 09/04/24 11:06 IMPRESSION: No acute fracture is seen. Reading Location: [facility] Three-view x-rays of left toes obtained interpreted [...] 30-74 minutes, Including time spent:,Discussing w/Patient &/or Family/Furniture Upholsterer, Discussing w/Consultants, ArrangingAdmission or Transfer, Performing Direct [...] Qty: 90 0RF Primary Care Provider: Angelica Rodriguez Referrals: Angelica Rodriguez MD [Primary Care Provider] - Print Language: Georgian Disposition Disposition: Acute Care Hospital [facility] What to do if you have Problems For any increased pain, shortness of breath, bleeding, nausea or vomiting, chestpain, or any unexpected problems, contact your Primary Care Provider. Call [facility] ([phone]) or report to the closest Emergency Room. Call 911 if necessary. 09/04/24 1248 <Electronically signed by Janie Madsen DO> Cosigner Signature (if applicable): CC: Dr. Angelica Rodriguez MD ~ Signed [facility] Work Phone: 1(392) 409-399506-23-2025 Telephone encounter Note* Telephone Encounter - Shilpi Brooks RN - 09/04/2024 4:12 PM EDT Patient admitted to [facility]. Will follow for discharge and schedule follow up with Dr. Gutierrez. Keiry Brooks RN [facility] Work Phone: [phone]) [phone] Discharge summary [facility] Medical Records Department [address] [place] [address] Emergency Department Summary 09/04/24 MR#: [id number] Acct: [id number] Name: REY MEAD Rep #:[id number] : 1955 69 From: Janie Madsen DO PCP: Dr. Angelica Rodriguez MD Status:ADM IN Location: ICU ICU01-1 HPI [...] have a fever. He denies urinary symptoms. [facility] Medical History Alcohol use Excessive bleeding [...] 90.2 H Lymph % (Auto) 2.7 L Dent % (Auto) 5.5 Eos % (Auto) 0.0 [...] Clarity Clear Urine pH 6.0 Ur Specific [place] 1.010 Urine Protein 30 H Urine Glucose [...] in the left upper lobe. Reading Location: WFH-FJORRIRYS-G Pelvis X-Ray 09/04/24 11:06 IMPRESSION: No acute [...] 30-74 minutes, Including time spent:,Discussing w/Patient &/or Family/Furniture Upholsterer, Discussing w/Consultants, ArrangingAdmission or Transfer, Performing Direct [...] Qty: 90 0RF Primary Care Provider: Angelica Rodriguez Referrals: Angelica Rodriguez MD [Primary Care Provider] - Print Language: Georgian Disposition Disposition: Acute Care Hospital [facility] What to do if you have Problems For any increased pain, shortness of breath, bleeding, nausea or vomiting, chestpain, or any unexpected problems, contact your Primary Care Provider. Call [facility] ([phone]) or report tothe closest Emergency Room. Call 911 if necessary. 09/04/24 1606 Cosigner Signature (if applicable): CC: Dr. Angelica Rodriguez MD ~ Signed [facility]06-23-2025 Radiology Diagnostic study note [facility] Imaging Services [address] [place] [address] CT Chest, Abd, Pel w/Contrast MR#: [id number] Acct: [id number] Name: REY MEAD Rep #: [id number] : 1955 M 69 From: Miguel Thompson MD PCP: Dr. Angelica Rodriguez MD Status: REG ER Study:CT Chest, Abd, Pel w/Contrast Date of E xam: 09/04/24 Exam# [id number] Ordering Dr: Annamarie Juan MD PROCEDURE: CT [...] mass suggestive of possible metastasis. Reading Location: [id number] CC: Dr. Angelica Rodriguez MD; Dr. Sernia Juan MD ~ Sock Boarder: Signed [facility]06-23-2025 History and physical note [facility] Medical Records Department [address] [place] [address] H&P Exam - Hospitalist 09/04/24 1444 MR#: [id number] Acct: [id number] Name: REY MEAD Rep #:[id number] : 1955 69 From: Serina Juan MD PCP: Dr. Angelica Rodriguez MD Status:REG ER Location: ED HPI - General General Date of Admission: 09/04/24 Date of Service: 09/04/24 Chief Complaint: fall, generalized weakness HPI Narrative REY MEAD, is a 69-year-old male with history of ELLEN, lung cancer on radiation, COPD, BPH, diabetes, GERD, anxiety, CAD who presented to [facility] ED 09/06/2024 via EMS after a [...] fluids. No other new or acute complaints. [facility] Medical History Alcohol use Excessive bleeding History [...] none 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 status: retired current occupation: [employer] Smoking Status: Former smoker quit date: 03/15/15 [...] 90.2 H, Lymph % (Auto) 2.7 L, Dent % (Auto) 5.5, Eos % (Auto) 0.0, [...] Clarity Clear, Urine pH 6.0, Ur Specific [place] 1.010, Urine Protein 30 H, Urine Glucose [...] in the left upper lobe. Reading Location: FKL-BRBMPEKBI-D Pelvis X-Ray 09/04/24 11:06 IMPRESSION: No acute abnormality is seen. Dense atherosclerotic calcification of the abdominal aorta and iliac arteries. Reading Location: VOE-QCVWRRAOT-P Toe X-Ray 09/04/24 11:06 IMPRESSION: No acute fracture is seen. Reading Location: [id number]-S Assessment & Plan Assessment/Plan (1) Sepsis: PLAN: [...] right lobectomy - Follows with Dr. Valdemar Gutierrez on an outpatient basis #Chronic BPH with [...] bolus ordered Charges/Coding Visit Charges Inpatient E&M: 18473 Init Hosp L2 09/04/24 0354 Cosigner Signature (if applicable): CC: Dr. Angelica Rodriguez MD; Dr. Serina Juan MD~ Signed [facility]06-23-2025 Discharge summary Author Janie Madsen [facility] Note Date/Time September 04, 2024 4:06 pm [facility] Medical Records Department [address] [place] [address] Emergency Department Summary 09/04/24 MR#: [id number] Acct: [id number] Name: REY MEAD Rep #:[id number] : 1955 69 From: Janie Madsen DO PCP: Dr. Angelica Rodriguez MD Status:ADM IN Location: ICU ICU01-1 HPI [...] have a fever. He denies urinary symptoms. [facility] Medical History Alcohol use Excessive bleeding [...] 90.2 H Lymph % (Auto) 2.7 L Dent % (Auto) 5.5 Eos % (Auto) 0.0 [...] Clarity Clear Urine pH 6.0 Ur Specific [place] 1.010 Urine Protein 30 H Urine Glucose [...] in the left upper lobe. Reading Location: XVR-JSOQXPNGO-Z Pelvis X-Ray 09/04/24 11:06 IMPRESSION: No acute abnormality is seen. Dense atherosclerotic calcification of the abdominal aorta and iliac arteries. Reading Location: HCN-ZXICARQVT-H Toe X-Ray 09/04/24 11:06 IMPRESSION: No acute fracture is seen. Reading Location: QXH-HODXEFJWH-A Three-view x-rays of left toes obtained interpreted [...] 30-74 minutes, Including time spent:,Discussing w/Patient &/or Family/Furniture Upholsterer, Discussing w/Consultants, ArrangingAdmission or Transfer, Performing Direct [...] Qty: 90 0RF Primary Care Provider: Angelica Rodriguez Referrals: Angelica Rodriguez MD [Primary Care Provider] - Print Language: Georgian Disposition Disposition: Acute Care Hospital [facility] What to do if you have Problems For any increased pain, shortness of breath, bleeding, nausea or vomiting, chestpain, or any unexpected problems, contact your Primary Care Provider. Call [facility] ([phone]) or report to the closest Emergency Room. Call 911 if necessary. 09/04/24 1606 <Electronically signed by Janie Madsen DO> Cosigner Signature (if applicable): CC: Dr. Angelica Rodriguez MD ~ Signed [facility] Work Phone: 1(342) 962-294806-23-2025 Radiology Diagnostic study note [facility] Imaging Services [address] [place], [place] [address] Pelvis 1 or 2 Views MR#: [id number] Acct: [id number] Name: REY MEAD Rep #: [id number] : 1955 M 69 From: Miguel Thompson MD PCP: Dr. Angelica Rodriguez MD Status: REG ER Study:Pelvis 1 or 2 Views Date of Exam: 09/04/24 Exam# [id number] Ordering Dr: Karen Madsen DO PROCEDURE: PELVIS [...] abdominal aorta and iliac arteries. Reading Location: [facility] CC: Dr. Angelica Rodriguez MD; Dr. Janie Madsen DO ~ Sock Boarder: Signed [facility]06-23-2025 Radiology Diagnostic study note [facility] Imaging Services [address] [place] [address]44141 Toe(s) Min 2 Views MR#: [id number] Acct: [id number] Name: REY MEAD Rep #: [id number] : 1955 M 69 From: Miguel Thompson MD PCP: Dr. Angelica Rodriguez MD Status: REG ER Study:Toe(s) Min 2 Views Date of Exam: 0 09/04/24 Exam# [id number] Ordering Dr: Karen Madsen DO PROCEDURE: TOE(S) MIN 2 VIEWS 09/04/2024 REASON FOR EXAM: INJURY Bruising of the 5th digit. TECHNIQUE: TOE(S) MIN 2 VIEWS COMPARISON: None FINDINGS: No visible fracture. Normal alignment. Prior fusion of the 2nd and 3rd tarsometatarsal joints. RAD/Toe(s) Min 2 Views IMPRESSION: No acute fracture is seen. Reading Location: [id number]-[id number] CC: Dr. Angelica Rodriguez MD; Dr. Janie Madsen DO ~ Sock Boarder: Signed [facility]06-23-2025 Radiology Diagnostic study note [facility] Imaging Services [address] [place], [place] [address] Chest 1 View (Portable) MR#: [id number] Acct: [id number] Name: REY MEAD Rep #: [id number] : 1955 M 69 From: Miguel Thompson MD PCP: Dr. Angelica Rodriguez MD Status: REG ER Study:Chest 1 View (Portable) Date of Exam: 09/04/24 Exam# [id number] Ordering Dr: Karen Madsen DO PROCEDURE: CHEST [...] in the left upper lobe. Reading Location: [id number]-[id number]-X CC: Dr. Angelica Rodriguez MD; Dr. Janie Madsen DO ~ Sock Boarder: Signed [facility]06-19-2025 Telephone encounter Note* Telephone Encounter - Estefania Hernandez - 08/31/2024 3:58 PM EDT This has been scheduled and pt is aware. Estefania Hernandez [facility]06-19-2025 Miscellaneous Notes* Telephone Encounter - Estefania Hernandez - 08/31/2024 3:58 PM EDT This has been scheduled and pt is aware. Estefania Hernandez * Telephone Encounter - Shilpi Brooks RN - 08/31/2024 3:11 PM EDT PSS: please schedule a f/u OV with Angie Block on 09/05/24 at 11am. (that slot was a STAFF ASSISTANT slot that got split and 11am should be available) Luis F is aware. Please call patient with update, he will see Angie after Dr. Dunaway appointment on 09/05/24 to discuss next steps. Keiry Brooks RN documented [facility] Telephone encounter Note * Telephone Encounter - Shilpi Brooks RN - 08/31/2024 3:11 PM EDT PSS: please schedule a f/u OV with Angie Block on 09/05/24 at 11am. (that slot was a STAFF ASSISTANT slot that got split and 11am should be available) Luis F is aware. Please call patient with update, he will see Angie after Dr. Dunaway appointment on 09/05/24 to discuss next steps. Keiry Brooks RN [facility] Work Phone: 1(113) 701-384206-19-2025 Telephone encounter Note* Telephone Encounter - Enriqueta Amado RN - 08/31/2024 1:[address] Dunaway did a prescription. I will give to patient when he is here for radiation on 09/01. I left a message for patient with this information on his voicemail. [facility]06-19-2025 Miscellaneous Notes* Telephone Encounter - Enriqueta Amado [...] a walker. documented [facility] Telephone encounter Note * Telephone Encounter - Enriqueta Amado RN - 08/31/2024 10:15 AM EDT Patient is asking for a prescription for a walker. [facility]06-18-2025 NoteHNO ID: [id number] Author: JACY CAO RN Service: ? 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 Patient has an Onbody or Implanted device: No Signed by: Jacy Cao RN documented in this encounterSelect [facility]ty [facility]06-16-2025 NoteHNO ID: [id number] Author: ENRIQUETA AMADO RN Service: ? Author Type: Registered Nurse Type: Progress Notes Filed: 08/28/2024 14:18 Note Text: Radiation Therapy - Nursing Note (Consult) PATIENT NAME: Rey Mead PATIENT August 28, 2024 [facility] FACILITY/LOCATION: [place] Chief Complaint: consult Reason for visit: Consult. Referring physician: Internal provider Dr Sebastian Subjective Data: Pt reports pain is a 9 with prescribed pain medications Additional Data Do you want to see a Truck Body Repairer? No Are you interested in information about fertility? No Status: Patient is male Stress Scale: On a scale of 0 to 10, what number best describes how much distress you have experienced in the past week?(0 being no distress and 10 being extreme distress) 7 Social work notified: Pt denied need to see social sciences chair at this time. SIGNED by: Enriqueta Amado RNEast [facility] History of Present illness Narrative* Enriqueta Amado RN - 08/28/2024 1:11 PM EDT Radiation Therapy - Nursing Note (Consult) PATIENT NAME: Rey Mead PATIENT August 28, 2024 [facility] FACILITY/LOCATION: [place] Chief Complaint: consult Reason for visit: Consult. Referring physician: Internal provider Dr Sebastian Subjective Data: Pt reports pain is a 9 with prescribed pain medications Additional Data Do you want to see a Truck Body Repairer? No Are you interested in information about fertility? No Status: Patient is male Stress Scale: On a scale of 0 to 10, what number best describes how much distress you have experienced in the past week?(0 being no distress and 10 being extreme distress) 7 Social work notified: Pt denied need to see social sciences chair at this time. SIGNED by: Enriqueta Amado RN * Jonh Munoz MD - 08/28/2024 1:00 PM EDT Radiation Oncology - New Patient/Consult Note PATIENT NAME: Rey Mead PATIENT REQUESTING PROVIDER: Wolfgang Gutierrez MD. DIAGNOSIS: Metastatic initial inoperable stage IA3 [...] nodes. Mr. Mead was seen by Dr. Gutierrez on 03/07/2024 and noted intermittent mild, dull, [...] Mr. Mead was again seen by Dr. Gutierrez on 07/13/2024 and again noted mild, dull, [...] Inhale 1 Puff as instructed once daily. [id number]-ZAUSHYSBZ-TDYUBEZO INHALATION Inhale as instructed. 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 Signed by: Jonh Munoz MD cc: To use this Smartlink, specify the provider ID whose address you want to display, e.g., .PROVADDR[1(where 1 is the provider ID). Shawn Mast [address] [facility] [address] documented in this encounterSelect Medical Specialty Hospital [facility]06-16-2025 NoteHNO ID: [id number] Author: JONH MUNOZ MD Service: ? Author Type: Physician Type: Progress Notes Filed: 08/28/2024 14:18 Note Text: Radiation Oncology - New Patient/Consult Note PATIENT NAME: Rey Mead PATIENT REQUESTING PROVIDER: Wolfgang Gutierrez MD. DIAGNOSIS: Metastatic initial inoperable stage IA3 [...] nodes. Mr. Mead was seen by Dr. Gutierrez on 03/07/2024 and noted intermittent mild, dull, [...] Mr. Mead was again seen by Dr. Gutierrez on 07/13/2024 and again noted mild, dull, [...] (NEURONTIN) 300 mg ca (more content not included)...[facility]06-16-2025 History of Present illness Narrative* Va Dunaway MD - 08/28/2024 12:00 AM EDT REY MEAD [id number] 08/28/2024 [facility] - Department of Radiation Oncology Treatment [...] 52:45 PM documented in this encounterSelect Medical Specialty Hospital [facility]06-16-2025 History of Present illness Narrative* Va Dunaway MD - 08/28/2024 12:00 AM EDT ALYCE REY L [id number] 08/28/2024 [facility] Department of Radiation Oncology [facility] RADIATION ONCOLOGY SIMULATION NOTE DATE OF SIMULATION: 08/28/2024 MACHINE: Whirlpool Definition CT Simulator Diagnosis: Metastatic initial inoperable [...] if applicable. Electronically Signed Va Dunaway M.D./deric :46 PM documented in this encounterSelect Medical Specialty Hospital [facility]06-16-2025 NoteHNO ID: [id number] Author: VA DUNAWAY MD Service: Radiation Oncology Author Type: Physician Type: Progress Notes Filed: 08/29/2024 14:45 Note Text: REY MEAD [id number] 08/28/2024 [facility] - Department of Radiation Oncology Treatment [...] DVH. Electronically Signed Va Dunaway M.D. :45 [facility]06-16-2025 NoteHNO ID: [id number] Author: VA DUNAWAY MD Service: Radiation Oncology Author Type: Physician Type: Progress Notes Filed: 08/29/2024 14:46 Note Text: REY MEAD Navjot [id number] 08/28/2024 [facility] Department of Radiation Oncology [facility] RADIATION ONCOLOGY SIMULATION NOTE DATE OF SIMULATION: [...] applicable. Electronically Signed Va Dunaway M.D./deric 52:46 [facility]06-13-2025 Telephone encounter Note* Telephone Encounter - Shilpi Brooks RN - 08/25/2024 3:54 PM EDT Attempted to call patient,no answer and unable to leave a message. Keiry Brooks RN [facility]06-13-2025 Miscellaneous Notes* Telephone Encounter - Shilpi Brooks RN - 08/25/2024 3:54 PM EDT Attempted to call patient,no answer and unable to leave a message. Keiry Brooks RN * Telephone Encounter - Elena Goldsmith - 08/25/2024 1:52 PM EDT Rescheduled as requested * Telephone Encounter - Shilpi Brooks RN - 08/25/2024 12:53 PM EDT Attempted to call patient,no answer and unable to leave a message. PSS: please move Dr. Dunaway appointment on 08/[address] Munoz 08/28/24 at 1pm. Keiry Brooks RN * Telephone Encounter - Shilpi Brooks RN - 08/25/2024 11:08 AM EDT Attempted to call patient,no answer and unable to leave a message. Keiry Brooks RN * Telephone Encounter - Shilpi Brooks RN - 08/25/2024 10:59 AM EDT Talked with Huan, not able to get transportation for today. Will make appointment for Wednesday. Keiry Brooks RN * Telephone Encounter - Shilpi Brooks RN - 08/25/2024 9:52 AM EDT Call to KHAI Rogers, asking about transportion help for patient. She is reaching out to someone at [facility] about getting patient in today. She is aware that he would need to be in here no later than 1pm. She will call back and let me know. Keiry Brooks RN * Telephone Encounter - Shilpi Brooks RN - 08/25/2024 9:22 AM EDT Patient [...] is aware that I will ask Dr. Gutierrez for something and call that in to [facility] in [place]. He is aware that I will call him back with plan. Keiry Brooks RN Spoke with Dr. Gutierrez, he advises patient to take 2 oxycodone at a time every 6 hr. and ok to send a refill. Rx pended. Keiry Brooks RN * Telephone Encounter - Shilpi Brooks RN - 08/25/2024 8:29 AM EDT Call to son, Cat, no answer, left detailed message to call our office with update on patient's status. Keiry Brooks RN Call to patient, no answer, unable to leave a message, mailbox is full Keiry Brooks RN Checked [facility] records a few days ago and today. Patient has not been or admitted there since 06/09/24.No recent Care Everywhere records to show that patient has been somewhere else within that system. Will await a call back from patient or son before next steps. Dr. Gutierrez ask that we request a well check. Keiry Brooks RN Call to [facility], spoke with Medical Records, no recent ED visit or current admission. Keiry Brooks RN * Telephone Encounter - Estefania Hernandez - 08/24/2024 3:19 PM EDT Called pt, still no answer and vm is still full. Estefania Hernandez * Telephone Encounter - Estefania Hernandez - 08/24/2024 2:53 PM EDT Called pt son on emergency contact list and lvm e this info to call back and schedule. Estefania Hernandez * Telephone Encounter - Shilpi Brooks RN - 08/24/2024 1:[address] Gutierrez has talked with Dr. Munoz and he is able to see him tomorrow or Wednesday. Call to patient, no answer, unable to leave a message, mailbox is full Keiry Brooks RN PSS: please move radiation oncology consult from 08/30/24 to 08/25 or 08/[address]. Dr. Munoz is willing to see patient to get him in sooner. Keiry Brooks RN * Telephone Encounter - Shilpi Brooks RN - 08/24/2024 8:25 AM EDT Call to patient, no answer, unable to leave a message, mailbox is full Keiry Brooks RN * Telephone Encounter - Shilpi Brooks RN - 08/23/2024 8:52 AM EDT Call to patient, no answer, unable to leave a message, mailbox is full Keiry Brooks RN * Telephone Encounter - Shilpi Brooks RN - 08/22/2024 3:57 PM EDT Care Coordination Triage Note Cancer Marceline Situation: Patient reports Pain--Generalized Background: Lung cancer Call to patient, no answer, left detailed VM to call me back. Keiry Brooks RN * Telephone Encounter - Elena Goldsmith - 08/22/2024 3:35 PM EDT Patient states he is in a lot of pain from biopsy yesterday and his pain medications are not working. He is asking for something stronger. Patient uses [facility] in [place]. documented in this encounterSelect Medical [facility]ty [facility] [place]06-13-2025 Miscellaneous Notes* Telephone Encounter - Shilpi Brooks RN - 08/25/2024 2:29 PM EDT See other phone note. Keiry Brooks RN * Telephone Encounter - Enriqueta Amado RN - 08/24/2024 1:27 PM EDT Please contact patient and reschedule his radiation consultation from 08/[address] Dunaway to tomorrow with Dr Munoz per request of Dr Gutierrez for increased pain. If unable to reach patient please tryemergency contact. Thanks! documented in this encounterSelect Medical Specialty [facility]06-13-2025 Telephone encounter Note * Telephone Encounter - Shilpi Brooks RN - 08/25/2024 2:29 PM EDT See other phone note. Keiry Brooks RN [facility] Work Phone: 1(105) 706-315706-13-2025 Telephone encounter Note* Telephone Encounter - Elena Goldsmiht - 08/25/2024 1:52 PM EDT Rescheduled as requested [facility] Work Phone: 1(597) 682-185506-13-2025 Telephone encounter Note* Telephone Encounter - Shilpi Brooks RN - 08/25/2024 12:53 PM EDT Attempted to call patient,no answer and unable to leave a message. PSS: please move Dr. Dunaway appointment on 08/[address] Munoz 08/28/24 at 1pm. Keiry Brooks RN [facility]06-13-2025 Telephone encounter Note* Telephone Encounter - Shilpi Brooks RN - 08/25/2024 11:08 AM EDT Attempted to call patient,no answer and unable to leave a message. Keiry Brooks RN [facility]06-13-2025 Telephone encounter Note* Telephone Encounter - Shilpi Brooks RN - 08/25/2024 10:59 AM EDT Talked with Huan, not able to get transportation for today. Will make appointment for Wednesday. Keiry Brooks RN [facility]06-13-2025 Telephone encounter Note* Telephone Encounter - Alana Gold LPN - 08/25/2024 10:37 AM EDT Prescription [...] 1 capsule by mouth once daily. Alana Gold LPN August 25, 2024 10:37 AM [facility]06-13-2025 Miscellaneous Notes* Telephone Encounter - Alana Gold LPN - 08/25/2024 10:37 AM EDT Prescription [...] 1 capsule by mouth once daily. Alana Gold LPN August 25, 2024 10:37 AM documented in this encounterSelect Medical Specialty [facility]06-13-2025 Telephone encounter Note * Telephone Encounter - Shilpi Brooks RN - 08/25/2024 9:52 AM EDT Call to KHAI Rogers, asking about transportion help for patient. She is reaching out to someone at [facility] about getting patient in today. She is aware that he would need to be in here no later than 1pm. She will call back and let me know. Keiry Brooks RN [facility]06-13-2025 Telephone encounter Note* Telephone Encounter - Shilpi Brooks RN - 08/25/2024 9:22 AM EDT Patient [...] is aware that I will ask Dr. Gutierrez for something and call that in to [facility] in [place]. He is aware that I will call him back with plan. Keiry Brooks RN Spoke with Dr. Gutierrez, he advises patient to take 2 oxycodone at a time every 6 hr. and ok to send a refill. Rx pended. Keiry Brooks RN [facility]06-13-2025 Telephone encounter Note* Telephone Encounter - Shilpi Brooks RN - 08/25/2024 8:29 AM EDT Call to sonCat, no answer, left detailed message to call our office with update on patient's status. Keiry Brooks RN Call to patient, no answer, unable to leave a message, mailbox is full Keiry Brooks RN Checked [facility] records a few days ago and today. Patient has not been or admitted there since 06/09/24.No recent Care Everywhere records to show that patient has been somewhere else within that system. Will await a call back from patient or son before next steps. Dr. Gutierrez ask that we request a well check. Keiry Brooks RN Call to [facility], spoke with Medical Records, no recent ED visit or current admission. Keiry Brooks RN [facility]06-12-2025 Telephone encounter Note* Telephone Encounter - Estefania Hernandez - 08/24/2024 3:19 PM EDT Called pt, still no answer and vm is still full. Estefania Hernandez [facility]06-12-2025 Telephone encounter Note* Telephone Encounter - Estefania Hernandez - 08/24/2024 2:53 PM EDT Called pt son on emergency contact list and lvm e this info to call back and schedule. Estefania Hernandez [facility]06-12-2025 Telephone encounter Note* Telephone Encounter - Shilpi Brooks RN - 08/24/2024 1:[address] Gutierrez has talked with Dr. Munoz and he is able to see him tomorrow or Wednesday. Call to patient, no answer, unable to leave a message, mailbox is full Keiry Brooks RN PSS: please move radiation oncology consult from 08/30/24 to 08/25 or 08/28. Dr. Munoz is willing to see patient to get him in sooner. Keiry Brooks RN [facility]06-12-2025 Telephone encounter Note* Telephone Encounter - Enriqueta Amado RN - 08/24/2024 1:27 PM EDT Please contact patient and reschedule his radiation consultation from 08/[address] Dunaway to tomorrow with Dr Munoz per request of Dr Gutierrez for increased pain. If unable to reach patient please tryemergency contact. Thanks! [facility]06-12-2025 Telephone encounter Note* Telephone Encounter - Shilpi Brooks RN - 08/24/2024 8:25 AM EDT Call to patient, no answer, unable to leave a message, mailbox is full Keiry Brooks RN [facility]06-11-2025 Telephone encounter Note* Telephone Encounter - Shilpi Brooks RN - 08/23/2024 8:52 AM EDT Call to patient, no answer, unable to leave a message, mailbox is full Keiry Brooks RN [facility]06-10-2025 Telephone encounter Note* Telephone Encounter - Shilpi Brooks RN - 08/22/2024 3:57 PM EDT Care Coordination Triage Note Cancer Marceline Situation: Patient reports Pain--Generalized Background: Lung cancer Call to patient, no answer, left detailed VM to call me back. Keiry Brooks, RN [facility]06-10-2025 Telephone encounter Note* Telephone Encounter - Elena Goldsmith - 08/22/2024 3:35 PM EDT Patient states he is in a lot of pain from biopsy yesterday and his pain medications are not working. He is asking for something stronger. [facility] uses [facility] [place]. [facility]06-06-[facility] Telephone encounter Note* Telephone Encounter - Elena Goldsmith - 08/18/2024 8:33 AM EDT Relayed message to patient regarding biopsy Scheduled with Dr. Dunaway [facility] Work Phone: 1(820) 279-783506-06-2025 Miscellaneous Notes* Telephone Encounter - Elena Goldsmith - 08/18/2024 8:33 AM EDT Relayed message to patient regarding biopsy Scheduled with Dr. Dunaway * Telephone Encounter - Debi Farah - 08/17/2024 3:01 PM EDT Lvm for patient to return the call. He is scheduled at [place] for biopsy 08/21 8:00am arrival Need to schedule Appointment with Dr Dunaway re palliative RT to paraspinal mass. Debi Farah * Telephone Encounter - Debi Farah - 08/17/2024 12:37 PM EDT AVS 08/17 Need biopsy of paraspinal mass leanne at [facility] CHAT MESSAGE SENT FOR SCHEDULING PURPOSES Appointment with Dr Gume lan palliative RT to paraspinal mass. documented in this encounterSelect Medical [facility]ty [facility]06-05-2025 Telephone encounter Note * Telephone Encounter - Debi Farah - 08/17/2024 3:01 PM EDT Lvm for patient to return the call. He is scheduled at [place] for biopsy 08/21 8:00am arrival Need to schedule Appointment with Dr Gume lan palliative RT to paraspinal mass. Debi Farah [facility]-2025 Telephone encounter Note* Telephone Encounter - Debi Farah - 08/17/2024 12:37 PM EDT AVS 08/17 Need biopsy of paraspinal mass leanne at [facility]-SECURE CHAT MESSAGE SENT FOR SCHEDULING PURPOSES Appointment with Dr Gume lan palliative RT to paraspinal mass. [facility]06-05-2025 NoteHNO ID: [id number] Author: VALDEMAR GUTIERREZ MD Service: ? Author Type: Physician Type: [...] SURGICAL HISTORY Procedure Laterality Date BYPASS GRAFT OTHR,XOQWA-JUJ-ZJE LOBECTOMY, SEGMENT FAMILY HISTORY Problem Relation Age [...] mouth. (Patient not taking: Reported on 04/21/2023) [id number]-EKPNAQITM-DGENXOMU INHALATION Inhale as instructed. (Patient not taking: Reported on 04/21/2023) ALBUTEROL INHALATION Inhale 2 Puffs as instructed every 4 hours as needed. (Patient not taking: Reported on 04/27/2024) L.acid/L.casei/B.bif/B.link/FOS (PROBIOTIC BLEND ORAL) Take 1 capsule by mouth once daily. (Patient not taking: Reported on 04/27/2024) REVIEW OF SYSTEMS: G (more content not included)...[facility]06-05-2025 History of Present illness Narrative* Valdemar Gutierrez MD - 08/17/2024 11:56 AM EDT (Elements [...] SURGICAL HISTORY Procedure Laterality Date BYPASS GRAFT OTHR,CKFOG-GOU-NUU LOBECTOMY, SEGMENT FAMILY HISTORY Problem Relation Age [...] mouth. (Patient not taking: Reported on 04/21/2023) [id number]-RHBEXILXJ-VMTRWAUP INHALATION Inhale as instructed. (Patient not taking: [...] which included preparing to see the patient, vcgz-cw-nlau patient care, completing clinical documentation, obtaining and/or reviewing separately obtained history, counseling and educating the patient/family/caregiver, independently interpretin g results (not separately reported), and communicating results to the patient/family/caregiver. Also review with Rad Onc Electronically Signed: Valdemar Gutierrez MD August 17, 2024 documented in this encounterSelect [facility]05-29-2025 Telephone encounter Note * Telephone Encounter - Dilia Lyons - 08/10/2024 12:39 PM EDT Patient returned call and took sooner appointment for 08/17 as this was the next opening. [facility]-29-2025 Miscellaneous Notes* Telephone Encounter - Dilia Lyons - 08/10/2024 12:39 PM EDT Patient returned call and took sooner appointment for 08/17 as this was the next opening. * Telephone Encounter - Debi Farah - 08/10/2024 9:13 AM EDT Lvm for patient to return the call. Per Dr. Gutierrez his pet scan results are in so his 08/21 appointment can be changed to 08/11 or when patient is able. Debi Farah documented in this encounterSelect [facility]05-29-2025 Telephone encounter Note * Telephone Encounter - Debi Farah - 08/10/2024 9:13 AM EDT Lvm for patient to return the call. Per Dr. Gutierrez his pet scan results are in so his 08/21 appointment can be changed to 08/11 or when patient is able. Debi Farah [facility]05-27-2025 Nuclear medicine Diagnostic study note [facility] Imaging Services [address] [place] [address] [id number] Hepatobilliary Img w/Pharm Int MR#: [id number] Acct: [id number] Name: REY MEAD Rep #: [id number] : [id number] M 69 From: Miguel Thompson MD PCP: Dr. Angelica Rodriguez MD Status: REG CLI Study:Hepatobilliary Img w/Pharm Int Date of Exam: 08/08/24 Exam# [id number] Ordering Dr: Jaleesa Galindo STAFF ASSISTANT-C PROCEDURE: HEPATOBILLIARY IMG W/PHARM INT 08/08/2024 REASON [...] IMPRESSION: Normal gallbladder ejection fraction Reading Location: [place] [address] CC: JACEY Galindo; Dr. Angelica Rodriguez MD ~ Sock Boarder: Signed [facility]05-20-2025 NoteHNO ID: [id number] Author: EDYTA HEATH RT(R) Service: Nuclear Medicine [...] PATIENT PRESENTS WITH AN IMPLANTABLE OR ATTACHED SENIOR HEALTH PHYSICS TECHNICIAN: No CREATININE: Creatinine Date Value Ref Range [...] . No other medications given.. ADMINISTRATION TIME: 09 PATIENT DISCHARGED TO: Ambulatory patient, left MA department area. Is this a therapy: No A Diagnostic radioactive procedure has taken place, with no further precautions necessary other than routine body substance precautions. More information regarding radiation safety can be found using this link: [email or web address] SIGNATURE: RT Brie(R) PATIENT NAME: Rey Mead DATE: August 01, 2024 TIME: 9:48 AM PAGER[facility]CON[id number] Evaluation note* Diagnosis Onset Date Resolution Status Admit Date RUQ pain acute July 24, 2024 9:58am Weight loss acute July 24 9:58am Acute hypokalemia acute September 042024 2:44pm Acute hyponatremia acute August 142024 2:44pm Anemia acute September 04 2:44pm Sepsis acute September 04 2:44pm Septic shock acute September 04, 2:44pm Weakness acute September 04 2:44pm COPD [...] 05 9:54am Gangrene of left foot acute Tad 2024 9:54am Hospital discharge follow-up acute October 05, 2024 9:54am [facility] Work Phone: 1(532) 958-390605-01-2025 NoteHNO ID: [id number] Author: VALDEMAR GUTIERREZ MD Service: ? Author Type: Physician Type: [...] SURGICAL HISTORY Procedure Laterality Date BYPASS GRAFT OTHR,EZSXB-NWO-LRZ LOBECTOMY, SEGMENT FAMILY HISTORY Problem Relation Age [...] Inhale 1 Puff as instructed once daily. MGGUUJNOLUE-MIBNTFWNE-XYUNIDKR INHALATION Inhale as instructed. (Patient not taking: [...] 89 Temp 97 (more content not included)... [facility]05-01-2025 History of Present illness Narrative* Valdemar Gutierrez MD - 07/13/2024 9:37 AM EDT (Elements [...] SURGICAL HISTORY Procedure Laterality Date BYPASS GRAFT OTHR,DEAIX-MSP-OUW LOBECTOMY, SEGMENT FAMILY HISTORY Problem Relation Age [...] Inhale 1 Puff as instructed once daily. XNSLILOBBNP-YQQNZXPOX-UZIWFSKB INHALATION Inhale as instructed. (Patient not taking: [...] which included preparing to see the patient, vugf-kn-vyei patient care, completing clinical documentation, obtaining and/or reviewing separately obtained history, counseling and educating the patient/family/caregiver, independently interpretin g results (not separately reported), and communicating results to the patient/family/caregiver. Electronically Signed: Valdemar Gutierrez MD July 13, 2024 documented in this encounterSelect [facility]ty [facility]04-24-2025 NoteHNO ID: [id number] Author: MERARI OLSON RT(R) Service: ? Author Type: Business Administration Instructor Type: Progress Notes Filed: 07/06/2024 14:32 Note [...] PATIENT PRESENTS WITH AN IMPLANTABLE OR ATTACHED SENIOR HEALTH PHYSICS TECHNICIAN: No ALLERGIES: Reviewed and unchanged CONTRAST ALLERGY: [...] Mead DATE: July 06, 2024 TIME: 2:31 [facility]04-22-2025 Telephone encounter Note* Telephone Encounter - Shilpi Brooks RN - 07/04/2024 2:19 PM EDT Order pended. Keiry Brooks RN [facility] Work Phone: 1(516) 845-670804-22-2025 Miscellaneous Notes* Telephone Encounter - Shilpi Brooks RN - 07/04/2024 2:19 PM EDT Order pended. Keiry Brooks RN * Telephone Encounter - Maite Orellana PSS - 07/04/2024 1:[address] order for stat creatinine order for pt , pt appt on 07/06/[address] [facility] Telephone encounter Note * Telephone Encounter - Maite Orellana PSS - 07/04/2024 1:[address] order for stat creatinine order for pt , pt appt on 07/06/[address] [facility]04-15-2025 History of Present illness Narrative* Florencia Larsen [...] PATIENT PRESENTS WITH AN IMPLANTABLE OR ATTACHED SENIOR HEALTH PHYSICS TECHNICIAN: No RADIOLOGY DEPARTMENT: General X-ray: Exam(s) Completed: Chest X-Ray PERIPHERAL IV DATA: Not applicable SIGNED BY: Boo Mensah June 27, 2024 12:19 PM documented in [facility]2025 NoteHNO ID: [id number] Author: FLORENCIA LARSEN Tech Service: ? Author [...] PATIENT PRESENTS WITH AN IMPLANTABLE OR ATTACHED SENIOR HEALTH PHYSICS TECHNICIAN: No RADIOLOGY DEPARTMENT: General X-ray: Exam(s) Completed: Chest X-Ray PERIPHERAL IV DATA: Not applicable SIGNED BY: Boo Mensah June 27, 2024 12:19 [facility]04-14-2025 Evaluation note* Diagnosis Onset Date Resolution [...] discharge follow-up acute October 05, 2024 9:54am [facility] Work Phone: 1(841) 705-563003-31-2025 Telephone encounter Note* Telephone Encounter - Alana Gold LPN - 06/12/2024 8:29 AM EDT Prescription [...] 1 capsule by mouth once daily. Alana Gold LPN June 12, 2024 8:30 AM [facility]03-31-2025 Miscellaneous Notes* Telephone Encounter - Alana Gold LPN - 06/12/2024 8:29 AM EDT Prescription [...] 1 capsule by mouth once daily. Alana Gold LPN June 12, 2024 8:30 AM documented [facility]25 Discharge summary [facility] Medical Records Department [address] [place] [address] Emergency Department Summary 06/09/24 MR#: [id number] Acct: [id number] Name: REY MEAD Rep #:[id number] : 1955 69 From: Carroll Celeste MD PCP: Dr. Angelica Rodriguez MD Status:REG ER Location: ED HPI HPI [...] similar symptoms: Yes Recent Illness/Hospitalization: No PFSH [facility] Medical History Alcohol use Excessive bleeding History [...] 82.6 H Lymph % (Auto) 10.9 L Dent % (Auto) 5.3 Eos % (Auto) 0.2 [...] to 12 hrs Primary Care Provider: Angelica Rodriguez Referrals: william [Other] Angelica Rodriguez MD [Primary Care Provider] - As soon as possible Activity Restrictions/Additional Instructions: No specific cause for your abdominal pain. Follow-up with your primary care physician to be referred to pain management forfurther evaluation and possible treatment. Print Language: Georgian Disposition Disposition: Home, Self Care What to do if you have Problems For any increased pain, shortness of breath, bleeding, nausea or vomiting, chestpain, or any unexpected problems, contact your Primary Care Provider. Call [facility] ([phone]) or report tothe closest Emergency Room. Call 911 if necessary. 06/09/24 1728 Cosigner Signature (if applicable): CC: Dr. Angelica Rodriguez MD ~ Signed [facility]03-28-2025 Radiology Diagnostic study note [facility] Imaging Services [address] [place], [place] [address] Abdomen/Pelvis W IV Cont ONLY MR#: [id number] Acct: [id number] Name: REY MEAD Rep #: [id number] : 1955 M 69 From: Elisabeth Almanzar MD PCP: Dr. Angelica Rodriguez MD Status: REG ER Study:Abdomen/Pelvis W IV Cont ONLY Date of E xam: 06/09/24 Exam# [id number] Ordering Dr: Lemuel Celeste MD PROCEDURE: ABDOMEN/PELVIS [...] atherosclerotic disease diffusely. 4. Splenomegaly. Reading Location: [place] CC: Dr. Angelica Rodriguez MD; Dr. Carroll Celeste MD ~ Sock Boarder: Signed [facility]03-28-2025 Discharge summary Author Carroll Celeste [facility] Note Date/Time June 09, 2024 5:2 8pm [facility] Medical Records Department [address] [place] [address] Emergency Department Summary 06/09/24 MR#: [id number] Acct: [id number] Name: REY MEAD Rep #:[id number] : 1955 69 From: Carroll Celeste MD PCP: Dr. Angelica Rodriguez MD Status:REG ER Location: ED HPI HPI [...] 82.6 H Lymph % (Auto) 10.9 L Dent % (Auto) 5.3 Eos % (Auto) 0.2 [...] to 12 hrs Primary Care Provider: Angelica Rodriguez Referrals: william [Other] Angelica Rodriguez MD [Primary Care Provider] - As soon as possible Activity Restrictions/Additional Instructions: No specific cause for your abdominal pain. Follow-up with your primary care physician to be referred to pain management forfurther evaluation and possible treatment. Print Language: Georgian Disposition Disposition: Home, Self Care What to do if you have Problems For any increased pain, shortness of breath, bleeding, nausea or vomiting, chestpain, or any unexpected problems, contact your Primary Care Provider. Call [facility] ([phone]) or report to the closest Emergency Room. Call 911 if necessary. 06/09/24 1728 <Electronically signed by Carroll Celeste MD> Cosigner Signature (if applicable): CC: Dr. Angelica Rodriguez MD ~ Signed [facility] Work Phone: 1(548) 617-230003-24-2025 Telephone encounter Note* Telephone Encounter - Shilpi Brooks RN - 06/05/2024 10:07 AM EDT Call to patient and aware of Rx and agreeable to discuss any further refills at appt with new primary appointment next month. Keiry Brooks RN [facility] Work Phone: 1(263) 998-882303-24-2025 Miscellaneous Notes* Telephone Encounter - Shilpi Brooks RN - 06/05/2024 10:07 AM EDT Call to patient and aware of Rx and agreeable to discuss any further refills at appt with new primary appointment next month. Keiry Brooks RN * Telephone Encounter - Shilpi Brooks RN - 06/05/2024 10:[address] Gutierrez agreeable to cover Gabapentin Rx until he can get in to see PCP on 06/29/24. Rx pended. Keiry Brooks RN * Telephone Encounter - Shilpi Brooks RN - 06/02/2024 4:34 PM EDT Discussed with Angie Block CNP. Patient needs to reach out to primary care. He is not receivingtreatment and pain is not related to cancer. Per last OV with Dr. Gutierrez on 03/07/25, patient needed to reach out to PCP and ask for physical therapy. Keiry Brooks RN Call to patient, aware of above. [...] provider, Angelica Nguyen. Patient aware that Dr. Gutierrez is gone for the day and will address with him on Wednesday am. He was also advised going to the ED if pain is unbearable/severe. He states he has been there and they did notgive him anything. He did try Tylenol but not helpful with the pain. Keiry Brooks RN * Telephone Encounter - Shilpi Brooks RN - 06/02/2024 10:14 AM EDT Care Coordination Triage Note Cancer Marceline Situation: Patient reports Other Pain, See phone encounter 05/31/24. He has additional questions about procedure at [facility]. CT C/A/P at [facility] 05/09/, EGD 05/31/24. Background: Lung cancer, had radiation, [...] sometime abdominal. no one know why Dr. Gutierrez had him try Gabapentin but he states [...] has an appointment with Angelica Nguyen at [place] on 06/29/24. He is aware that I will discuss above with Dr. Gutierrez and call him back later today. Pharmacy, [facility] in [place]. Recommendations: Per RNCC, patient directed to: Manage at home. Instructions provided. Will discuss with Dr. Gutierrez and call back with further instructions. Shilpi Brooks RN June 02, 2024 10:14 AM documented [facility] encounter[facility]25 Telephone encounter Note * Telephone Encounter - Shilpi Brooks RN - 06/05/2024 10:[address] Gutierrez agreeable to cover Gabapentin Rx until he can get in to see PCP on 06/29/24. Rx pended. Keiyr Brooks RN [facility]03-24-2025 Telephone encounter Note* Telephone Encounter - Shilpi Brooks RN - 06/05/2024 9:49 AM EDT See other phone note. Keiry Brooks RN [facility] Work Phone: 1(131) 940-324103-24-2025 Miscellaneous Notes* Telephone Encounter - Shilpi Brooks RN - 06/05/2024 9:49 AM EDT See other phone note. Keiry Brooks RN * Telephone Encounter - Shilpi Brooks RN - 06/01/2024 3:50 PM EDT Call to patient, message left to call me back and phone/contact number provided. Isatu Roche * Telephone Encounter - Shilpi Brooks RN - 05/31/2024 4:01 PM EDT Patient had Upper GI endoscopy with Dr. Santos today, reviewed his note, he asked patient to reach out to us about a new adrenal node on CT 05/09/24. Dr. Sanchezh aware and was addressed in previous phone encounter dated 05/10/24. Patient was called and aware. [facility] 02/18/24 CT chest: Upper abdomen: Stable benign 2.3 x 2.5 cm LEFT adrenal nodule. [facility] 05/09/24 CT: There is a 1.7 cm x 2.5 cm nodular density in the left adrenal gland. 05/31/[address] Santos: Impression: - Esophageal plaques were found, suspicious for candidiasis. Biopsied. - No gross lesions in the stomach. - Small hiatal hernia. - A single duodenal polyp. Resected and retrieved. Recommendation: - Discharge patient to home. - Resume previous diet. - Continue present medications. - Await pathology results. Keiry Brooks RN * Telephone Encounter - Elena Goldsmith - 05/31/2024 3:37 PM EDT Patient called stating that he had upper scope at [facility] today. Dr. Stahl informed patient to contact Dr. Gutierrez's office as soon as possible. Please advise patient if appointment is needed. [facility]25 Telephone encounter Note * Telephone Encounter - Shilpi Brooks RN - 06/02/2024 4:34 PM EDT Discussed with Angie Block CNP. Patient needs to reach out to primary care. He is not receivingtreatment and pain is not related to cancer. Per last OV with Dr. Gutierrez on 03/07/25, patient needed to reach out to PCP and ask for physical therapy. Keiry Brooks RN Call to patient, aware of above. [...] provider, Angelica Nguyen. Patient aware that Dr. Gutierrez is gone for the day and will address with him on Wednesday am. He was also advised going to the ED if pain is unbearable/severe. He states he has been there and they did notgive him anything. He did try Tylenol but not helpful with the pain. Keiry Brooks RN [facility]03-21-2025 Telephone encounter Note* Telephone Encounter - Shilpi Brooks RN - 06/02/2024 10:14 AM EDT Care Coordination Triage Note Cancer Marceline Situation: Patient reports Other Pain, See phone encounter 05/31/24. He has additional questions about procedure at [facility]. CT C/A/P at [facility] 05/09/, EGD 05/31/24. Background: Lung cancer, had radiation, [...] sometime abdominal. no one know why Dr. Gutierrez had him try Gabapentin but he states [...] has an appointment with Angelica Nguyen at [place] on 06/29/24. He is aware that I will discuss above with Dr. Gutierrez and call him back later today. Pharmacy, [facility] in [place]. Recommendations: Per RNCC, patient directed to: Manage at home. Instructions provided. Will discuss with Dr. Gutierrez and call back with further instructions. Shilpi Brooks RN June 02, 2024 10:14 AM [facility]03-20-2025 Telephone encounter Note* Telephone Encounter - Shilpi Brooks RN - 06/01/2024 3:50 PM EDT Call to patient, message left to call me back and phone/contact number provided. Isatu Roche [facility]03-19-2025 Telephone encounter Note* Telephone Encounter - Shilpi Brooks RN - 05/31/2024 4:01 PM EDT Patient had Upper GI endoscopy with Dr. Santos today, reviewed his note, he asked patient to reach out to us about a new adrenal node on CT 05/09/24. Dr. Gutierrez aware and was addressed in previous phone encounter dated 05/10/24. Patient was called and aware. [facility] 02/18/24 CT chest: Upper abdomen: Stable benign 2.3 x 2.5 cm LEFT adrenal nodule. [facility] 05/09/24 CT: There is a 1.7 cm x 2.5 cm nodular density in the left adrenal gland. 05/31/[address] Santos: Impression: - Esophageal plaques were found, suspicious for candidiasis. Biopsied. - No gross lesions in the stomach. - Small hiatal hernia. - A single duodenal polyp. Resected and retrieved. Recommendation: - Discharge patient to home. - Resume previous diet. - Continue present medications. - Await pathology results. Keiry Brooks RN [facility]03-19-2025 Telephone encounter Note* Telephone Encounter - Elena Goldsmith - 05/31/2024 3:37 PM EDT Patient called stating that he had upper scope at [facility] today. Dr. Stahl informed patient to contact Dr. Gutierrez's office as soon as possible. Please advise patient if appointment is needed. [facility] Work Phone: 1(854) 483-441403-19-2025 Consult note Author Edgar Goetz [facility] Note Date/Time May 31, 2024 12: 56pm [facility] Medical Records Department [address] [facility] [place] [address] Anesthesia Postop Eval I 05/31/24 1225 MR#: [id number] Acct: [id number] Name: REY MEAD Rep #:[id number] : 1955 69 From: Edgar Goetz CRNA PCP: Dr. Angelica Rodriguez MD Status:REG [facility] Y Race: C Location: [place] [address] Anesthesia: Postop Eval I Current Vital Signs [...] 05/31/24 1256 <Electronically signed by Edgar metz CRNA> Date _ Edgar Goetz CRNA Cosigner Signature: Date CC: ~ Signed [facility] Work Phone: 1(400) 419-202603-19-2025 Consult note [facility] Medical Records Department [address] [place] [address] Anesthesia Postop Eval II 05/31/24 1419 MR#: [id number] Acct: [id number] Name: REY MEAD Rep #:[id number] : 1955 69 From: Tiff Oconnell PCP: Dr. Angelica Rodriguez MD Status:REG JERICA Y Race: C Location: [place] [address] Anesthesia Postop Eval I Sum Postop Eval Completion status Anesthesia document: Postop Eval 1 completed: Yes Anesthesia Postop Eval I Summary Anesthesia Postop Eval I Summary: Anesthesia Postop Eval I: Assessment Summary Airway patent Yes 05/31/24 12:56 TON CONTAINER [email or web address] Spontaneous unlabored Yes 05/31/24 12:56 TON CONTAINER [email or web address] respirations Mental status Awake 05/31/24 12:56 TON CONTAINER [email or web address] nausea No 05/31/24 12:56 TON CONTAINER [email or web address] Vomiting No 05/31/24 12:56 TON CONTAINER [email or web address] Anesthesia Postop Eval I: Fluid Summary Crystalloid volume administer 2 05/31/24 12:56 TON CONTAINER [email or web address] (ml) Colloids volume administered ( ml) Blood Product volume administered (ml) Total IV fluid infused 2 05/31/24 12:56 TON CONTAINER [email or web address] Anesthesia Postop Eval I: Summary Notes Anesthesia Complication No 05/31/24 12:56 TON CONTAINER [email or web address] Anesthesia Complication Comment: Post-operative progress note Anesthesia: Postop Eval II Evaluation Mental status: Awake Pain Level: 7 (was baseline abdominal pain patient had been having for past two weeks. ) nausea: No Vomiting: No 05/31/24 1420 a> Date _ Tiff Mendoza Signature: Date CC: ~ Signed [facility]03-19-2025 History and physical note Author Wild Friend [facility] Note Date/Time May 31, 2024 11: 57am [facility] Medical Records Department [address] [place] [address] History & Physical Exam 05/31/24 1155 MR#: [id number] Acct: [id number] Name: REY MEAD Rep #:[id number] : 1955 69 From: Wild Santos PCP: Dr. Angelica Rodriguez MD Status:REG [facility] Location: [place] [address] HPI - General General Date of Admission: [...] at HS via CPAP - Oncology on [address] - reports his Oncology doctors started [...] the pain - pain presently is 11/22 [facility] Medical History Alcohol use Excessive bleeding History [...] also provided him a 3d RX of [employer] and recommended he follow-up with oncology regarding CT findings. He reports he has a visit with Dr. Hurd in the next week or so, he would require pulmonary clearance prior to proceeding with EGD. Patient Instructions: 1. Start pantoprazole 40mg every morning, prescription sent to your pharmacy 2. Schedule Upper GI [phone] Gutierrez office and make them aware of new left adrenal lesion on CTA completed 05/09/2024 4. [place] prescription sent to pharmacy for pain Plan Details Follow Up: 1 Month 05/31/24 1157 <Electronically signed by Wild Santos DO> Cosigner Signature (if applicable): CC: Dr. Angelica Rodriguez MD; Wild Santos DO~ Signed [facility] Work Phone: 1(495) 141-121403-19-2025 Consult note Author Tiff [facility] Note Date/Time May 31, 2024 11: 54am [facility] Medical Records Department [address] [place] [address] Pre-Anesthesia Evaluation 05/31/24 1144 MR#: [id number] Acct: [id number] Name: REY MEAD Rep #:[id number] : 1955 69 From: Tiff Oconnell PCP: Dr. 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 Female No 05/23/24 09:55 HX of Motion [...] 05/31/24 11:23 Respiratory Assessment Respiratory Assessment - 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: Respiratory Tract Infection Hx - 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 Hx Respiratory Tract Infection No 05/23/24 09:55 Any additional information?: No STOP Sleep Apnea STOP Sleep Apnea - 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: STOP Sleep Apnea - 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 Hx Hypertension Yes: CONTROLLED WITH MED 05/23/24 [...] Tobacco Use History 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: 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 Tobacco Use Smoking Status Former smoker 05/23/24 09:55 Hx Tobacco Use No 05/23/24 09:55 Years Smoking Packs Smoked per Day Smoking Cessation Date was Yes - quit smoking within 15 05/23/24 09:55 within the last 15 years years Hx Smoking Cessation Date 03/15/15 05/23/24 09:55 Hx Smoking Cessation No 05/23/24 09:55 Counseling Any additional information?: No Hematologic Medial History Hematologic 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 INHALATION 05/31/24 11:41 X1 ONE [facility] Medical History Alcohol use Excessive bleeding History [...] 1/2 out of 10 abdominal pain. 05/31/24 1157 <Electronically signed by Tiff betancur> Date _ Tiff Oconnell Cosigner Signature: Date CC: ~ Signed [facility] Work Phone: 1(120) 187-518303-19-2025 Consult note [facility] Medical Records Department [address] [place] [address] Anesthesia Postop Eval I 05/31/24 1225 MR#: [id number] Acct: [id number] Name: REY MEAD Rep #:[id number] : 1955 69 From: Edgar Goetz CRNA PCP: Dr. Angelica Rodriguez MD Status:REG [facility] Y Race: C Location: [place] [address] Anesthesia: Postop Eval I Current Vital Signs [...] Eval 1 completed: Yes 05/31/24 1256 y TON CONTAINER FILLER> Date _ Edgar Goetz TON CONTAINER FILLER Cosigner Signature: Date CC: ~ Signed [facility]03-19-2025 Procedure note [facility] Medical Records Department [address] [place] [address] EGD Report MR#: [id number] Acct: [id number] Name: REY MEAD Rep #:[id number] : 1955 69 From: Wild Santos DO PCP: Dr. Angelica Rodriguez MD Status:[facility] Patient Name: Rey Mead Procedure Date: 05/31/2024 12:25 PM Date of : 1955 Age: 69 Procedure: Upper GI endoscopy Indications: Epigastric abdominal pain, Abdominal pain in the left upper quadrant Providers: Wild Santos DO Medicines: Monitored Anesthesia Care Patient Profile: [...] pathology results. Procedure Code(s): --- Professional --- 45529, Small intestinal endoscopy, enteroscopy beyond second portion of duodenum, not including ileum; with biopsy, single or multiple CPT copyright 2021 [employer]. All rights reserved. The codes documented in this report are preliminary and upon knitting inspector review may be revised to meet current compliance requirements. Wild Santos DO 05/31/2024 12:51:21 PM This report has been signed electronically. Number of Addenda: 0 Note Initiated On: 05/31/2024 12:25 PM 05/31/24 1251 Date _ Wild [place] Signature: Date (if indicated) CC: Dr. Angelica Rodriguez MD; Wild Santos DO ~ Date Dictated: 05/31/24 1225 Date Transcribed: Sock Boarder: RF Signed [facility]03-19-2025 Procedure note [facility] Medical Records Department [address] [place] [address] Operative Report - CC Letter MR#: [id number] Acct: [id number] Name: REY MAED Rep #:[id number] : 1955 69 From: Wild Santos DO PCP: Dr. Angelica Rodriguez MD Status:REG [facility] 05/31/2024 Angelica Rodriguez Md Re : Upper GI endoscopy procedure for Rey Mead Dear Therese This procedure was performed on Wednesday, May 31, 2024. My impressions and recommendations [...] to contact me at . Sincerely, Wild Santos DO 05/31/2024 12:51:21 PM This report has been signed electronically. 05/31/24 1251 Date _ Wild [place] Signature: Date (if indicated) CC: Dr. Angelica Rodriguez MD; Wild Santos DO ~ Date Dictated: 05/31/24 1225 Date Transcribed: Sock Boarder: RF Signed [facility]03-19-2025 History and physical note [facility] Medical Records Department [address] [place] [address] History & Physical Exam 05/31/24 1155 MR#: [id number] Acct: [id number] Name: REY MEAD Rep #:[id number] : 1955 69 From: Wild Santos DO PCP: Dr. Angelica Rodriguez MD Status:REG [facility] Location: [place] [address] HPI - General General Date of Admission: [...] at HS via CPAP - Oncology on [address] - reports his Oncology doctors started [...] the pain - pain presently is 11/22 [facility] Medical History Alcohol use Excessive bleeding History [...] also provided him a 3d RX of [place] and recommended he follow-up with oncology regarding CT findings. He reports he has a visit with Dr. Hurd in the next week or so, he would require pulmonary clearance prior to proceeding with EGD. Patient Instructions: 1. Start pantoprazole 40mg every morning, prescription sent to your pharmacy 2. Schedule Upper GI [phone] Gutierrez office and make them aware of new left adrenal lesion on CTA completed 05/09/2024 4. [place] prescription sent to pharmacy for pain Plan Details Follow Up: 1 Month 05/31/24 1157 Cosigner Signature (if applicable): CC: Dr. Angelica Rodriguez MD; Wild Friend, DO~ Signed [facility]03-19-[address] [facility] Consult note [facility] Medical Records Department [address] [place] [address] Pre-Anesthesia Evaluation 05/31/24 1144 MR#: [id number] Acct: [id number] Name: REY MEAD Rep #:[id number] : 1955 69 From: Tiff Oconnell PCP: Dr. 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 Hx Respiratory Tract Infection No 05/23/24 09:55 Any additional information?: No STOP Sleep Apnea STOP Sleep Apnea - 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: STOP Sleep Apnea - 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 Hx Hypertension Yes: CONTROLLED WITH MED 05/23/24 [...] Tobacco Use History 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: 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 Tobacco Use Smoking Status Former smoker 05/23/24 09:55 Hx Tobacco Use No 05/23/24 09:55 Years Smoking Packs Smoked per Day Smoking Cessation Date was Yes - quit smoking within 15 05/23/24 09:55 within the last 15 years years Hx Smoking Cessation Date 03/15/15 05/23/24 09:55 Hx Smoking Cessation No 05/23/24 09:55 Counseling Any additional information?: No Hematologic Medial History Hematologic 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 INHALATION 05/31/24 11:41 X1 [facility] Medical History Alcohol use Excessive bleeding History [...] pain. 05/31/24 1154 a> Date _ Tiff Mendoza Signature: Date CC: ~ Signed [facility]03-10-2025 History of Present illness Narrative* Elena Teague RT(Isatu) - 05/22/2024 10:30 AM EDT Radiology Service [...] PATIENT PRESENTS WITH AN IMPLANTABLE OR ATTACHED SENIOR HEALTH PHYSICS TECHNICIAN: No RADIOLOGY DEPARTMENT: General X-ray: Exam(s) Completed: Chest X-Ray PERIPHERAL IV DATA: Not applicable SIGNED BY: RT Duran(Isatu) May 22, 2024 3:05 PM documented in [facility] encounter[facility]-10-2025 NoteHNO ID: [id number] Author: ELENA TEAGUE RT(R) Service: ? Author Type: Technologist Type: [...] PATIENT PRESENTS WITH AN IMPLANTABLE OR ATTACHED SENIOR HEALTH PHYSICS TECHNICIAN: No RADIOLOGY DEPARTMENT: General X-ray: Exam(s) Completed: Chest X-Ray PERIPHERAL IV DATA: Not applicable SIGNED BY: RT Duran(Isatu) May 22, 2024 3:05 [facility]03-06-2025 Evaluation note* Diagnosis Onset Date Resolution [...] June 14 1:35pm Hypertension chronic June 14, 025 1:35pm Infrarenal abdominal aortic aneurysm (AAA) [...] obstructive pulmonary disease) chronic September 04 2:44pm [facility] Work Phone: 1(633) 142-446502-28-2025 Radiology Diagnostic study note [facility] Imaging Services [address] [place], [place] [address] Upper GI Dual Contrast MR#: [id number] Acct: [id number] Name: REY MEAD Rep #: [id number] : 1955 M 69 From: Sandhya Nelson MD PCP: Dr. Angelica Rodriguez MD Status: REG CLI Study:Upper GI Dual Contrast Date of Exam: 05/12/24 Exam# [id number] Ordering Dr: Jaleesa Galindo PROCEDURE: DOUBLE-CONTRAST UPPER GASTROINTESTINAL SERIES REASON FOR [...] lower lobe. Can notexclude pneumonia. Reading Location: [place] [address] CC: STAFF ASSISTANT-C Jaleesa Galindo; Dr. Angelica Rodriguez MD ~ Sock Boarder: Signed [facility]02-27-2025 Telephone encounter Note* Telephone Encounter - Alana Gold LPN - 05/11/2024 11:40 AM EST Spoke with pt. Informed scan of left adrenal appears stable. Pt voiced understanding. Alana Gold LPN [facility]02-27-2025 Miscellaneous Notes* Telephone Encounter - Alana Gold LPN - 05/11/2024 11:40 AM EST Spoke with pt. Informed scan of left adrenal appears stable. Pt voiced understanding. Alana Gold LPN * Telephone Encounter - Shilpi Brooks RN - 05/11/2024 11:25 AM EST Call to patient, message left to call me back and phone/contact number provided. Shilpi Brooks RN * Telephone Encounter - Shilpi Brooks RN - 05/10/2024 3:14 PM EST Call to patient, no answer, message left on self identified VM, that the left adrenal nodule is notnew and is stable after review of previous scans. Instructed to call any further questions. Keiry Brooks RN * Telephone Encounter - Shilpi Brooks RN - 05/10/2024 3:[address] Gutierrez reviewed and he has had a left adrenal lesion on previous scans. Appears stable. Most recent [facility] CT chest 02/18/24: Upper abdomen: Stable benign 2.3 x 2.5 cm LEFT adrenal nodule. Keiry Brooks RN [facility] CT scan 05/09/24: There is a 1.7cm x 2.5cm nodular density in the left adrenal gland Keiry Brooks RN Further review of chart: CT Chest 04/01/23: Upper abdomen: A 2.7 x 2 cm left adrenal mass is stable since remote exam available dated 10/18/2004, likely benign. Keiry Brooks RN * Telephone Encounter - Ilana Neal LPN - 05/10/2024 10:[address] results placed on Dr. Gutierrez's desk for review. Ilana Neal LPN * Telephone Encounter - Elena Goldsmith - 05/10/2024 10:03 AM EST Patient was informed by Jaleesa Mateo HEAD PASTRY CHEF to contact office regarding CT results. CT completed yesterday at [facility]. Patient states he has new left adrenal lesion. Please advise patient. documented in this encounterSelect [facility]-27-2025 Telephone encounter Note * Telephone Encounter - Shilpi Brooks RN - 05/11/2024 11:25 AM EST Call to patient, message left to call me back and phone/contact number provided. Shilpi Brooks RN [facility] Work Phone: [phone]) 609-635502-26-2025 Telephone encounter Note* Telephone Encounter - Shilpi Brooks RN - 05/10/2024 3:14 PM EST Call to patient, no answer, message left on self identified VM, that the left adrenal nodule is notnew and is stable after review of previous scans. Instructed to call any further questions. Keiry Brooks RN [facility]02-26-2025 Telephone encounter Note* Telephone Encounter - Shilpi Brooks RN - 05/10/2024 3:[address] Gutierrez reviewed and he has had a left adrenal lesion on previous scans. Appears stable. Most recent [facility] CT chest 02/18/24: Upper abdomen: Stable benign 2.3 x 2.5 cm LEFT adrenal nodule. Keiry Brooks RN [facility] CT scan 05/09/24: There is a 1.7cm x 2.5cm nodular density in the left adrenal gland Keiry Brooks RN Further review of chart: CT Chest 04/01/23: Upper abdomen: A 2.7 x 2 cm left adrenal mass is stable since remote exam available dated 10/18/2004, likely benign. Keiry Brooks RN [facility]02-26-2025 Telephone encounter Note* Telephone Encounter - Ilana Neal LPN - 05/10/2024 10:[address] results placed on Dr. Gutierrez's desk for review. Ilana Neal LPN [facility]02-26-2025 Telephone encounter Note* Telephone Encounter - Elena Goldsmith - 05/10/2024 10:03 AM EST Patient was informed by Jaleesa Galindo CNP to contact office regarding CT results. CT completed yesterday at [facility]. Patient states he has new left adrenal lesion. Please advise patient. [facility] Work Phone: [phone]) [phone] Evaluation note* Diagnosis Onset Date Resolution Status [...] June 14 1:35pm Hypertension chronic June 14, 025 1:35pm Infrarenal abdominal aortic aneurysm (AAA) without rupture chronic June 14, 2024 1:35pm BPH (benign prostatic hyperplasia) noneactive June 14, 2024 1:35pm Establishing care with new doctor, encounter for noneactive June 14, 2024 1:35pm Anxiety and depression noneactive Ap 2024 1:35pm RUQ pain acute June 26 11:22am RUQ pain acute July 24, 2024 9:58am Weight loss acute July 24 9:58am [facility] Work Phone: 1(486) 290-523902-26-2025 Evaluation note* Diagnosis Onset Date Resolution Status [...] 24 9:58am Sepsis acute September 04 2:44pm [facility] Work Phone: [phone]) 987-109802-13-2025 Telephone encounter Note* Telephone Encounter - Shilpi Brooks RN - 04/27/2024 1:27 PM EST Call to patient, no answer, left detailed message on self identified phone with message from Dr. Gutierrez. Instructed to call back if any further questions or concerns. Keiry Brooks RN [facility] Work Phone: [phone]) 578-431102-13-2025 Miscellaneous Notes* Telephone Encounter - Shilpi Brooks RN - 04/27/2024 1:27 PM EST Call to patient, no answer, left detailed message on self identified phone with message from Dr. Gutierrez. Instructed to call back if any further questions or concerns. Keiry Brooks RN * Telephone Encounter - Shilpi Brooks RN - 04/27/2024 10:36 AM EST Discussed with Dr. Gutierrez, since this is not helping, he would advise evauation with his PCP. Keiry Brooks RN * Telephone Encounter - Elena Goldsmith - 04/27/2024 10:07 AM EST Patient called stating he is still in a lot of pain, gabapentin doesn't seem to be helping much. Heis asking if we are able to up the dose. Please advise. Patient uses [facility] in [place]. documented in this encounterSelect [facility]02-13-2025 Telephone encounter Note * Telephone Encounter - Shilpi Brooks RN - 04/27/2024 10:36 AM EST Discussed with Dr. Gutierrez, since this is not helping, he would advise evauation with his PCP. Keiry Brooks RN [facility]02-13-2025 Telephone encounter Note* Telephone Encounter - Elena Goldsmith - 04/27/2024 10:07 AM EST Patient called stating he is still in a lot of pain, gabapentin doesn't seem to be helping much. Heis asking if we are able to up the dose. Please advise. Patient uses [facility] in [place]. [facility] Work Phone: [phone]) 535-210502-13-2025 History of Present illness Narrative* Geoffrey Martinez RT(R) - 04/27/2024 8:30 AM EST Radiology [...] PATIENT PRESENTS WITH AN IMPLANTABLE OR ATTACHED SENIOR HEALTH PHYSICS TECHNICIAN: No RADIOLOGY DEPARTMENT: General X-ray: Exam(s) Completed: Chest X-Ray PERIPHERAL IV DATA: Not applicable SIGNED BY: USAMA Ma) April 27, 2024 8:26 AM documented in this encounterSelect [facility] [place]02-13-2025 NoteHNO ID: [id number] Author: GEOFFREY MARTINEZ RT(R) Service: Radiology Author [...] PATIENT PRESENTS WITH AN IMPLANTABLE OR ATTACHED SENIOR HEALTH PHYSICS TECHNICIAN: No RADIOLOGY DEPARTMENT: General X-ray: Exam(s) Completed: Chest X-Ray PERIPHERAL IV DATA: Not applicable SIGNED BY: Geoffrey Martinez RT(R) April 27, 2024 8:26 [facility]02-13-2025 NoteHNO ID: [id number] Author: GEORGE PEREZ APRN.HEAD PASTRY CHEF Service: ? Author Type: Nurse Practitioner Type: [...] SURGICAL HISTORY Procedure Laterality Date BYPASS GRAFT OTHR,OURLG-HRY-HDE LOBECTOMY, SEGMENT ALLERGIES Patient has no known allergies. MEDICATIONS gabapentin (NEURONTIN) 100 mg capsule Take 1 capsule by mouth daily at bedtime for 30 days. VITAMIN B COMPLEX-100 ORAL Take by mouth. (Patient not taking: Reported on 04/21/2023) fluticasone/umeclidin/vilanter (TRELEGY ELLIPTA INHALATION) Inhale 1 Puff as instructed once daily. NOYUVLWFZLO-BRUHMIAYR-IASXMMGN INHALATION Inhale as instructed. (Patient not taking: [...] membranes are moist. Pharyn (more content not included)...[facility]02-13-2025 History of Present illness Narrative* George Perez APRN.[facility] - 04/27/2024 8:16 AM EST Subjective HPI [...] SURGICAL HISTORY Procedure Laterality Date BYPASS GRAFT OTHR,AUBIA-YMN-SWA LOBECTOMY, SEGMENT ALLERGIES Patient has no known allergies. MEDICATIONS gabapentin (NEURONTIN) 100 mg capsule Take 1 capsule by mouth daily at bedtime for 30 days. VITAMIN B COMPLEX-100 ORAL Take by mouth. (Patient not taking: Reported on 04/21/2023) fluticasone/umeclidin/vilanter (TRELEGY ELLIPTA INHALATION) Inhale 1 Puff as instructed once daily. ONHDNLRTNXD-PFOGWVTSH-SSRVLMGH INHALATION Inhale as instructed. (Patient not taking: [...] of care. This note was generated using MagMe software. It may contain errors in wording, punctuation, or spelling. George Perez APRN.FLY documented in this encounterSelect [facility]01-17-2025 Telephone encounter Note * Telephone Encounter - [...] review and advise. Elena Haji [facility] Work Phone: [phone]) 448-467501-17-2025 Miscellaneous Notes* Telephone Encounter - Elena Goldsmith [...] Elena Haji documented in this encounterSelect [facility]01-08-2025 Evaluation note* Diagnosis Onset Date Resolution Status [...] without rupture chronic M arch 2024 2:53pm [facility] Work Phone: 1([phone]) [phone] Evaluation note* Diagnosis Onset Date Resolution Status [...] 2:53pm LUQ pain acute May 31 10:55am [facility] Work Phone: 1([phone]) 645-724001-08-2025 Evaluation note* Diagnosis Onset Date Resolution Status Admit Date CAD (coronary artery disease) acute March 22 8:43am High cholesterol acute March 22, 2024 8:43am Hypertension chronic March 22, 2024 8:43am Back pain acute May 10, 2024 7:41am Left-sided chest pain acute b ruary 2024 7:41am LUQ pain acute May [...] June 14 1:35pm Hypertension chronic June 14 025 1:35pm Infrarenal abdominal aortic aneurysm (AAA) without rupture chronic June 14, 2024 1:35pm BPH (benign prostatic hyperplasia) noneactive June 14, 2024 1:35pm Establishing care with new doctor, encounter for noneactive June 14, 2024 1:35pm Anxiety and depression noneactive Ap [facility] 2024 1:35pm [facility] Work Phone: [phone] Evaluation note* Diagnosis Onset Date Resolution Status [...] June 14 1:35pm Hypertension chronic June 14 025 1:35pm Infrarenal abdominal aortic aneurysm (AAA) without rupture chronic June 14, 2024 1:35pm BPH (benign prostatic hyperplasia) noneactive June 14, 2024 1:35pm Establishing care with new doctor, encounter for noneactive June 14, 2024 1:35pm Anxiety and depression noneactive Ap ril 2024 1:35pm RUQ pain acute June 26 11:22am [facility] Work Phone: 1([phone]) 847-190712-24-2024 NoteHNO ID: [id number] Author: VALDEMAR GUTIERREZ MD Service: ? Author Type: Physician Type: [...] SURGICAL HISTORY Procedure Laterality Date BYPASS GRAFT OTHR,TCRXM-FFQ-SHE LOBECTOMY, SEGMENT FAMILY HISTORY Problem Relation Age [...] mouth. (Patient not taking: Reported on 04/21/2023) YCDXLOBFUDG-TAOLKKEXW-TUBUUMEZ INHALATION Inhale as instructed. (Patient not taking: [...] which included preparing to see the patient, nyse-tf-otib patient care, completing clinical documentation, obtaining and/or reviewing separately obtained history, cou (more content not included)...[facility]12-24-2024 History of Present illness Narrative* Valdemar Gutierrez MD - 03/07/2024 8:28 AM EST (Elements [...] SURGICAL HISTORY Procedure Laterality Date BYPASS GRAFT OTHR,RJRIB-BZM-OGH LOBECTOMY, SEGMENT FAMILY HISTORY Problem Relation Age [...] mouth. (Patient not taking: Reported on 04/21/2023) YIDADFFXTYF-AKKLHFPWN-GJQQMJRM INHALATION Inhale as instructed. (Patient not taking: [...] which included preparing to see the patient, meub-ss-aulu patient care, completing clinical documentation, obtaining and/or reviewing separately obtained history, counseling and educating the patient/family/caregiver, independently interpretin g results (not separately reported), and communicating results to the patient/family/caregiver. Electronically Signed: Valdemar Gutierrez MD March 07, 2024 documented in this encounterSelect [facility]12-06-2024 History of Present illness Narrative* Merari Olson, RT(R) - 02/18/2024 10:00 AM EST Radiology [...] PATIENT PRESENTS WITH AN IMPLANTABLE OR ATTACHED SENIOR HEALTH PHYSICS TECHNICIAN: No RADIOLOGY DEPARTMENT: CT; Exam(s) Completed: Chest PERIPHERAL IV DATA: Not applicable SIGNED BY: USAMA Shine) February 18, 2024 9:45 AM documented in this encounterSelect Medical [facility]ty [facility]12-06-2024 NoteHNO ID: [id number] Author: MERARI OLSON RT (R) Service: ? Author Type: Business Administration Instructor Type: Progress Notes Filed: 02/18/2024 09:45 Note [...] PATIENT PRESENTS WITH AN IMPLANTABLE OR ATTACHED SENIOR HEALTH PHYSICS TECHNICIAN: No RADIOLOGY DEPARTMENT: CT; Exam(s) Completed: Chest PERIPHERAL IV DATA: Not applicable SIGNED BY: RT Rl(Isatu) February 18, 2024 9:45 [facility]09-25-2024 NoteHNO ID: [id number] Author: VA DUNAWAY MD Service: ? Author [...] three months and then to see Dr. Gutierrez. I will see him as needed Total Time Spent: 5 minutes Va Dunaway [facility]09-25-2024 History of Present illness Narrative* Va [...] three months and then to see Dr. Gutierrez. I will see him as needed Total Time Spent: 5 minutes Va Dunaway MD documented in this encounterSelect [facility]ty [facility]09-20-2024 Telephone encounter Note * Telephone Encounter - Elena Goldsmith - 12/03/2023 3:31 PM EDT Patient called and rescheduled [facility] Work Phone: [phone]) [phone] Miscellaneous Notes* Telephone Encounter - Elena Goldsmith - 12/03/2023 3:31 PM EDT Patient called and rescheduled * Telephone Encounter - Jacy Cao RN - 12/03/2023 11:32 AM EDT Pt was scheduled for 1130 phone call today. Pt did not answer, voicemail left for him to call back.Can transfer to ext [phone] Dunaway's nurse or PSS for reschedule. documented in this encounterSelect Medical [facility]ty [facility]09-20-2024 Telephone encounter Note * Telephone Encounter - Jacy Cao RN - 12/03/2023 11:32 AM EDT Pt was scheduled for 1130 phone call today. Pt did not answer, voicemail left for him to call back.Can transfer to ext [phone] Dunaway's nurse or PSS for reschedule. [facility]09-18-2024 NoteHNO ID: [id number] Author: VALDEMAR GUTIERREZ MD Service: ? Author Type: Physician Type: [...] Here for follow up. Post SBRT to [facility] mass May 2023. Reviewed CT report images. [...] SURGICAL HISTORY Procedure Laterality Date BYPASS GRAFT OTHR,PLZEK-BME-UJH LOBECTOMY, SEGMENT FAMILY HISTORY Problem Relation Age [...] Take 0.4 mg by mouth once daily. L.acid/L.casei/B.bif/B.ilnk/FOS (PROBIOTIC BLEND ORAL) Take 6 Billion Cells by mouth once daily. VITAMIN B COMPLEX-100 ORAL Take by mouth. (Patient not taking: Reported on 04/21/2023) WMBJZZEIGUK-IPDZKKKHB-NHZKZZFD INHALATION Inhale as instructed. (Patient not taking: [...] which included preparing to see the patient, esbr-nz-tmum patient care, completing clinical documentation, obtaining and/or reviewing separately obtained history, counseling and educating the patient/family/caregiver, independently interpreting results (not separately reported), and communicating results to the patient/family/caregiver. Electronically Signed: Valdemar [facility]rez MD [facility] 30[facility] History of Present illness Narrative* Valdemar Gutierrez MD - 12/01/2023 9:54 AM EDT (Elements [...] SURGICAL HISTORY Procedure Laterality Date BYPASS GRAFT OTHR,HCVLK-TMV-AOG LOBECTOMY, SEGMENT FAMILY HISTORY Problem Relation Age [...] mouth. (Patient not taking: Reported on 04/21/2023) ATSPGNAZRGW-HMGDYXHMA-YDLGVKDW INHALATION Inhale as instructed. (Patient not taking: [...] which included preparing to see the patient, oqvz-wj-hrki patient care, completing clinical documentation, obtaining and/or reviewing separately obtained history, counseling and educating the patient/family/caregiver, independently interpretin g results (not separately reported), and communicating results to the patient/family/caregiver. Electronically Signed: Valdemar Gutierrez MD December 01, 2023 documented in this encounterSelect [facility]09-11-2024 History of Present illness Narrative* Reef HoskinsMerari, RT(R) - 11/24/2023 8:40 AM EDT Radiology [...] PATIENT PRESENTS WITH AN IMPLANTABLE OR ATTACHED SENIOR HEALTH PHYSICS TECHNICIAN: No ALLERGIES: Reviewed and unchanged CONTRAST ALLERGY: [...] 3:27 PM documented in this encounterSelect Medical [facility]ty [facility]09-11-2024 NoteHNO ID: [id number] Author: MERARI OLSON RT(R) Service: ? Author Type: Business Administration Instructor Type: Progress Notes Filed: 11/24/2023 15:27 Note [...] PATIENT PRESENTS WITH AN IMPLANTABLE OR ATTACHED SENIOR HEALTH PHYSICS TECHNICIAN: No ALLERGIES: Reviewed and unchanged CONTRAST ALLERGY: [...] Mead DATE: November 24, 2023 TIME: 3:27 [facility]06-19-2024 History of Present illness Narrative* Va [...] on 11/24/23 and then to see Dr. Gutierrez. Follow-up with me in 3 months. Total Time Spent: 5 minutes Va Dunaway MD documented in this encounterSelect Medical [facility]ty [facility]06-14-2024 Telephone encounter Note * Telephone Encounter - Jacy Cao RN - 08/27/2023 8:49 AM EDT Please reschedule today's phone call appointment to Wed at 230. His CT scan is not resulted yet. Pt is aware. [facility]06-14-2024 Miscellaneous Notes* Telephone Encounter - Jacy Cao RN - 08/27/2023 8:49 AM EDT Please reschedule today's phone call appointment to Wed the at 230. His CT scan is not resulted yet. Pt is aware. documented in this encounterSelect [facility]06-11-2024 History of Present illness Narrative* Merari Olson RT(R) - 08/24/2023 9:00 AM EDT Radiology Service Progress Note PATIENT NAME: eRy Mead DATE OF SERVICE: August 24, 2023 [...] PATIENT PRESENTS WITH AN IMPLANTABLE OR ATTACHED SENIOR HEALTH PHYSICS TECHNICIAN: No RADIOLOGY DEPARTMENT: CT; Exam(s) Completed: Chest PERIPHERAL IV DATA: Not applicable SIGNED BY: RT Rl(R) August 24, 2023 4:13 PM documented in this encounterSelect Medical [facility]ty [facility]05-03-2024 History of Present illness Narrative* Valdemar Gutierrez MD - 07/16/2023 3:45 PM EDT HISTORY [...] SURGICAL HISTORY Procedure Laterality Date BYPASS GRAFT OTHR,NYQCV-QIU-IDH LOBECTOMY, SEGMENT FAMILY HISTORY Problem Relation Age [...] mouth. (Patient not taking: Reported on 04/21/2023) DUOFTFLEUVQ-CQLYOFTZB-PPLPFEQZ INHALATION Inhale as instructed. (Patient not taking: [...] which included preparing to see the patient, tubr-ib-hyjl patient care, completing clinical documentation, obtaining and/or reviewing separately obtained history, counseling and educating the patient/family/caregiver, independently interpretin g results (not separately reported), and communicating results to the patient/family/caregiver. Electronically Signed: Valdemar Gutierrez MD July 16, 2023 documented in this encounterSelect [facility]04-10-2024 History of Present illness Narrative* Va Dunaway [...] Dunaway MD documented in this encounterSelect [facility] [place]03-20-2024 History of Present illness Narrative* Elena Teague RT(R) - 06/02/2023 11:00 AM EDT Radiology [...] PATIENT PRESENTS WITH AN IMPLANTABLE OR ATTACHED SENIOR HEALTH PHYSICS TECHNICIAN: No RADIOLOGY DEPARTMENT: General X-ray: Exam(s) Completed: Chest X-Ray PERIPHERAL IV DATA: Not applicable SIGNED BY: RT Duran(R) June 02, 2023 1:30 PM documented in this encounterSelect [facility]-08-[facility]24 Nurse Note* Jacy Cao RN - 05/21/2023 11:35 AM EST Written discharge instructions given and reviewed with patient. Patient verbalizes understanding. Encouraged to call with any questions or concerns. Instruction for 4 week follow up appointment givenby Dr. Dunaway. documented in this encounterSelect [facility] Specialty [facility] [place]03-08-2024 History of Present illness Narrative* Va Dunaway MD - 05/21/2023 12:00 AM EST REY MEAD [id number] : 1955 05/21/2023 [facility] Department of Radiation Oncology RADIATION ONCOLOGY - COMPLETION NOTE DATE OF SIMULATION: 04/30/23 DATES OF TREATMENT: 05/12/23 - 05/21/23 [facility]: Left upper lung DISEASE: Stage [...] / 1:33 AM Electronically Signed cc: Romain Black [address] [place] [address] Tay Montiel [address] [place] [id number] [place] [address] [facility] documented in this encounterSelect Medical Specialty [facility] [place]03-06-2024 Nurse Note* Jacy Cao RN - 05/19/2023 10:23 AM EST Radiation Therapy - Nursing Note (OTV) PATIENT NAME: Rey Mead PATIENT May 19, 2023 [facility] FACILITY/LOCATION: [facility] NOTE TYPE: CHEST Subjective Data no complaints Additional Data Do you want to see a Truck Body Repairer? No Status: Patient is male Stress Scale: On a scale of 0 to 10, what number best describes how much distress you have experienced in the past week?(0 being no distress and 10 being extreme distress) 7 Social work notified: Pt denied need to see social sciences chair at this time. Nursing Assessment Fatigue: none [...] yes but not new. SIGNED by: Jacy Cao RN documented in this encounterSelect Medical Specialty [facility] [place]03-06-2024 History of Present illness Narrative* Va Dunaway [...] Dunaway MD documented in this encounterSelect Medical Specialty Hospital [facility] [place]02-23-2024 History of Present illness Narrative* Clarita Mcmillan RT(R) - 05/07/2023 11:20 AM EST Radiology [...] PATIENT PRESENTS WITH AN IMPLANTABLE OR ATTACHED SENIOR HEALTH PHYSICS TECHNICIAN: No ALLERGIES: Reviewed and unchanged CONTRAST ALLERGY: NO. EXAM: MRI - CONTRAST TYPE: GROUP II PERIPHERAL IV DATA: Ambulatory: A peripheral IV was started in the Left forearm with a Angio cath: 22 gauge. RADIOLOGY DEPARTMENT: MR; Exam(s) Completed: Head: Routine Brain SIGNATURE: RT Kaveh(R) PATIENT NAME: Rey Mead DATE: May 07, 2023 TIME: 11:46 AM documented in this encounterSelect Medical Specialty Hospital [facility] [place]02-16-2024 History and physical note * Diane Fulton RN - 04/30/2023 11:00 AM EST Radiation Therapy - Patient Education Note PATIENT NAME: Rey Mead PATIENT April 30, 2023 [facility] FACILITY/LOCATION: [place] READINESS TO LEARN Cognitive Ability: Alert and [...] 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 Was approved? 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 AREA:Left Upper Lung. PATIENT POSITION: Supine. CONTRAST: None PROTOCOL: None BLOCKING: Custom blocking to be determined at treatment planning. FIXATION DEVICE: In order to achieve accurate and reproducible treatments, the patient is to be immobilized with Plugaround SBRT System, compression belt, and body fix. [...] haque if applicable. Electronically Signed Va Dunaway M.D./elmira 412:35 PM documented in this encounterSelect Medical Specialty Hospital [facility]02-16-2024 History of Present illness Narrative* Va Dunaway MD - 04/30/2023 12:00 AM EST REY MEAD [id number] 04/30/2023 [facility] Department of Radiation Oncology Treatment Planning Note For reasons stated in the consult note, Rey Mead is a candidate for radiation therapy. Based onreview and interpretation of the relevant diagnostic studies together with the exam findings, Rey Mead was simulated on 04/30/2023 at which [...] and [facility]. Electronically Signed Va Dunaway M.D. 0:25 AM documented in this encounterSelect Medical Specialty Hospital [facility] [place]02-09-2024 History of Present illness Narrative* Va Dunaway [...] fluticasone/umeclidin/vilanter (TRELEGY ELLIPTA INHALATION) Inhale as instructed. [id number] INHALATION Inhale as instructed. (Patient not taking: [...] SURGICAL HISTORY Procedure Laterality Date BYPASS GRAFT OTHR,[id number] LOBECTOMY, SEGMENT FAMILY HISTORY Problem Relation Age [...] that other personnel such as radiation therapists, livestock yard supervisor, and physicists will participate in planning and delivery of radiation treatment. Permanent tattoo parada will be placed to aid with positioning for daily treatment and the patient consented. Patient will have a simulation procedure after his MRI brain. He will see Dr. Gutierrez for consideration of systemic therapy. Thank you very much for allowing us to participate in his care. Signed by: Va Dunaway MD cc: Romain Black [address] [place] [id number] Tay Trejo Montiel [address] [facility] [address] Valdemar Gutierrez documented in this encounterSelect Medical Specialty Hospital - [place]02-07-2024 Nurse Note* Enriqueta Amado RN - 04/21/2023 9:20 AM EST Intake information documented in the prior visit with Dr. Gutierrez today. Radiation Therapy - Nursing Note (Consult) PATIENT NAME: Rey Mead PATIENT April 21, 2023 [facility] FACILITY/LOCATION: [place] Chief Complaint: consult Reason for visit: Consult. Referring physician: Internal provider Dr Montiel Subjective Data: no complaints Additional Data Do you want to see a Truck Body Repairer? No Are you interested in information about fertility? No Status: Patient is male Stress Scale: On a scale of 0 to 10, what number best describes how much distress you have experienced in the past week?(0 being no distress and 10 being extreme distress) 7 Social work notified: Pt denied need to see social sciences chair at this time. SIGNED by: Enriqueta Amado RN documented in this encounterSelect Medical Specialty [facility] [place]02-07-2024 History of Present illness Narrative* Valdemar Gutierrez MD - 04/21/2023 9:01 AM EST HISTORY [...] SURGICAL HISTORY Procedure Laterality Date BYPASS GRAFT OTHR,[id number] LOBECTOMY, SEGMENT FAMILY HISTORY Problem Relation Age [...] mouth. (Patient not taking: Reported on 04/21/2023) [id number] INHALATION Inhale as instructed. (Patient not taking: [...] which included preparing to see the patient, [id number]-pk-[id number] patient care, completing clinical documentation, obtaining and/or reviewing separately obtained history, counseling and educating the patient/family/caregiver, independently interpretin g results (not separately reported), and communicating results to the patient/family/caregiver. Electronically Signed: Valdemar Gutierrez MD April 21, 2023 9:08 AM documented in this encounterSelect Medical Specialty Hospital [facility] [place]02-01-2024 History of Present illness Narrative* Fermín Chadwick [...] visit. Either the patient or their legal automotive leasing sales representative has been informed of the risks [...] during six minute walk. Findings reviewed with Mr. Mead over the phone today. Recommend completing cancer [...] MD, PhD documented in this encounterSelect Medical Specialty Hospital [facility] [place]12-19-2023 Miscellaneous Notes* Telephone Encounter - Mago Negro - 03/02/2023 10:53 AM EST Reason for call: Mr Mead called and he would like to schedule an appointment with DR Chadwick. Home and cell number:[phone] Diagnosis:Lung Cancer left upper loop. Mago Maradiaga. documented in this encounterSelect Medical Specialty Hospital [facility] [place]11-01-2023 Procedure [facility]08-26-2022 Note ORIGINAL EXAMINATION: CT ADRENAL WITHOUT [...] Sign Date: 11/07/2021 11:09:10 AM Ordering Provider: [facility]08[facility]26[facility]2022 Note ORIGINAL EXAMINATION: CT ADRENAL WITHOUT CONTRAST [...] Sign Date: 11/07/2021 11:09:10 AM Ordering Provider: LATOSHA [facility] 11-08-2019 Evaluation + Plan note Future Appointments Appointment Date:11/07/2021 10:30:00 AM Scheduled Provider: Location:RAD Appointment Type:CT Abdomen Adrenal Appointment Date:11/07/2021 11:00:00 AM Scheduled Provider: Location:RAD Appointment Type:CT Chest w/o Contrast Appointment Date:01/22/2022 09:15:00 AM Scheduled Provider:LATOSHA RENEE MD Location:[facility] Appointment Type:ENDO OV Appointment Date:03/30/2022 11:30:00 AM Scheduled Provider:ROMAIN BLACK DO Location:[facility] Appointment Type:PC OV Appointment Date:05/07/2022 09:00:00 AM Scheduled Provider:LYUBOV LITTLE Location:[facility] Appointment Type:CV OV Future Scheduled Tests Laboratory* Metanephrines, Plasma 01/19/22 * Prostate Specific Antigen 01/19/22 * A1C Hemoglobin 01/19/22 * Microalbumin Level Urine 01/19/22 * Vitamin D Level 01/19/22 * Complete Metabolic Panel 01/19/22 Radiology* CT Thorax w/o Contrast 11/07/21 * CT Abdomen Adrenal 11/07/21 [facility] Consult note Author Tiff Oconnell [facility] Note Date/Time May 31, 2024 2:2 0pm [facility] Medical Records Department [address] [place] [id number] Anesthesia Postop Eval II 05/31/24 1419 MR#: [id number] Acct: [id number] Name: REY MEAD Rep #:[id number] : 1955 69 From: Tiff Oconnell PCP: Dr. Angelica Rodriguez MD Status:REG SDC Y Race: C Location: [place] [address] Anesthesia Postop Eval I Sum Postop Eval Completion status Anesthesia document: Postop Eval 1 completed: Yes Anesthesia Postop Eval I Summary Anesthesia Postop Eval I Summary: Anesthesia Postop Eval I: Assessment Summary Airway patent Yes 05/31/24 12:56 TON CONTAINER [email or web address] Spontaneous unlabored Yes 05/31/24 12:56 TON CONTAINER [email or web address] respirations Mental status Awake 05/31/24 12:56 TON CONTAINER [email or web address] nausea No 05/31/24 12:56 TON CONTAINER [email or web address] Vomiting No 05/31/24 12:56 TON CONTAINER [email or web address] Anesthesia Postop Eval I: Fluid Summary Crystalloid volume administer 2 05/31/24 12:56 TON CONTAINER [email or web address] (ml) Colloids volume administered ( ml) Blood Product volume administered (ml) Total IV fluid infused 2 05/31/24 12:56 TON CONTAINER [email or web address] Anesthesia Postop Eval I: Summary Notes Anesthesia Complication No 05/31/24 12:56 TON CONTAINER [email or web address] Anesthesia Complication Comment: Post-operative progress note Anesthesia: Postop Eval II Evaluation Mental status: Awake Pain Level: 7 (was baseline abdominal pain patient had been having for past two weeks. ) nausea: No Vomiting: No 05/31/24 1420 <Electronically signed by Tiff betancur> Date _ Tiff Mendoza Signature: Date CC: ~ Signed [facility] Work Phone: Evaluation + Plan note Future Appointments Appointment Date:01/02/2021 09:30:00 AM Scheduled Provider:LATOSHA RENEE MD Location:[facility] Appointment Type:ENDO OV Appointment Date:01/28/2021 11:00:00 AM Scheduled Provider:ROMAIN BLACK DO Location:[facility] Appointment Type:PC OV Appointment Date:05/29/2021 09:30:00 AM Scheduled Provider:LYUBOV LITTLE Location:[facility] Appointment Type:CV OV Future Scheduled Tests Radiology* CT Abdomen Adrenal 09/04/20 [facility] Evaluation + Plan note Future Appointments Appointment Date:05/08/2021 09:30:00 AM Scheduled Provider:LATOSHA RENEE MD Location:[facility] Appointment Type:ENDO OV Appointment Date:05/29/2021 09:30:00 AM Scheduled Provider:LYUBOV LITTLE Location:[facility] Appointment Type:CV OV Appointment Date:07/29/2021 10:30:00 AM Scheduled Provider:ROMAIN BLACK DO Location:[facility] Appointment Type:PC OV Future Scheduled Tests Laboratory* Prostate Specific Antigen 01/28/21 * A1C Hemoglobin 05/05/21 * Microalbumin Level Urine 01/28/21 * Vitamin D Level 05/05/21 * Complete Metabolic Panel 05/05/21 Radiology* CT Abdomen Adrenal 09/04/20 [facility] Evaluation + Plan note Future Appointments Appointment Date:05/08/2021 09:30:00 AM Scheduled Provider:LATOSHA RENEE MD Location:[facility] Appointment Type:ENDO OV Appointment Date:05/29/2021 09:30:00 AM Scheduled Provider:LYUBOV LITTLE Location:[facility] Appointment Type:CV OV Appointment Date:07/29/2021 10:30:00 AM Scheduled Provider:ROMAIN BLACK DO Location:[facility] Appointment Type:PC OV Future Scheduled Tests Laboratory* Prostate Specific Antigen 01/28/21 * Microalbumin Level Urine 01/28/21 Radiology* CT Abdomen Adrenal 09/04/20 [facility] Evaluation + Plan note Future Appointments Appointment Date:09/18/2021 08:45:00 AM Scheduled Provider:LATOSHA RENEE MD Location:[facility] Appointment Type:ENDO OV Appointment Date:09/29/2021 11:30:00 AM Scheduled Provider:ROMAIN BLACK DO Location:[facility] Appointment Type:PC OV Appointment Date:11/03/2021 09:30:00 AM Scheduled Provider:LYUBOV LITTLE Location:[facility] Appointment Type:CV OV Future Scheduled Tests Laboratory* Prostate Specific Antigen 01/28/21 * Microalbumin Level Urine 01/28/21 [facility] Evaluation + Plan note Future Appointments Appointment Date:01/22/2022 09:15:00 AM Scheduled Provider:LATOSHA RENEE MD Location:[facility] Appointment Type:ENDO OV Appointment Date:03/30/2022 11:30:00 AM Scheduled Provider:ROMAIN BLACK DO Location:[facility] Appointment Type:PC OV Appointment Date:05/07/2022 09:00:00 AM Scheduled Provider:LYUBOV LITTLE Location:[facility] Appointment Type:CV OV Future Scheduled Tests Laboratory* Metanephrines, Plasma 01/19/22 * Prostate Specific Antigen 01/19/22 * A1C Hemoglobin 01/19/22 * Microalbumin Level Urine 01/19/22 * Vitamin D Level 01/19/22 * Complete Metabolic Panel 01/19/22 [facility] Evaluation + Plan note Future Appointments Appointment Date:01/22/2022 09:15:00 AM Scheduled Provider:LATOSHA RENEE MD Location:[facility] Appointment Type:ENDO OV Appointment Date:03/30/2022 11:30:00 AM Scheduled Provider:ROMAIN BLACK DO Location:[facility] Appointment Type:PC OV Appointment Date:05/07/2022 09:00:00 AM Scheduled Provider:LYUBOV LITTLE Location:[facility] Appointment Type:CV OV Diagnostic Tests Pending * Metanephrines, Plasma 01/09/22 [facility] Evaluation + Plan note Future Appointments Appointment Date:06/11/2022 09:45:00 AM Scheduled Provider:LATOSHA ERNEE MD Location:[facility] Appointment Type:ENDO OV Appointment Date:09/28/2022 09:00:00 AM Scheduled Provider:ROMAIN BLACK DO Location:[facility] Appointment Type:PC OV Appointment Date:11/04/2022 09:00:00 AM Scheduled Provider:LYUBOV LITTLE Location:[facility] Appointment Type:CV OV Future Scheduled Tests Laboratory* Microalbumin Level Urine 05/22/22 * Urine Drug Screen 05/28/22 [facility] Evaluation + Plan note Future Appointments Appointment Date:12/10/2022 09:00:00 AM Scheduled Provider:LATOSHA RENEE MD Location:[facility] Appointment Type:ENDO OV Appointment Date:03/11/2023 09:00:00 AM Scheduled Provider:ROMAIN BLACK DO Location:[facility] Appointment Type:PC OV Future Scheduled Tests Laboratory* Microalbumin Level Urine 05/22/22 * Urine Drug Screen 05/28/22 [facility] Evaluation + Plan note Future Appointments Appointment Date:06/17/2023 09:00:00 AM Scheduled Provider:LATOSHA RENEE MD Location:[facility] Appointment Type:ENDO OV Appointment Date:06/24/2023 09:00:00 AM Scheduled Provider:ROMANI BLACK DO Location:[facility] Appointment Type:PC OV Future Scheduled Tests Laboratory* Microalbumin Level Urine 05/22/22 * Urine Drug Screen 05/28/22 [facility] evaluation noteNo assessment information available [facility] Work Phone: evaluation note* Diagnosis Personal history of malignant neoplasm of bronchus and lung- Primary [facility]* Diagnosis Squamous cell carcinoma of left lung (HCC) documented [facility] this encounter [facility]* Diagnosis Squamous cell carcinoma of left lung (HCC) documented in this encounter [facility]* Diagnosis Squamous cell carcinoma of left lung (HCC)- Primary documented in this encounter [facility] note* Diagnosis Squamous cell carcinoma of left lung (HCC)- Primary [facility] encounter [facility]* Diagnosis Squamous cell carcinoma of left lung (HCC) documented [facility] this encounter [facility]* Diagnosis Squamous cell carcinoma of left lung (HCC)- Primary documented [facility]* Diagnosis Radiotherapy follow-up- Primary Radiotherapy follow-up examination Malignant neoplasm of unspecified part of unspecified bronchus or lung (HCC) documented [facility] this encounter [facility]* Diagnosis Malignant neoplasm of unspecified part of unspecified bronchus or lung (HCC)- Primary [facility] Diagnosis Malignant neoplasm of unspecified part of unspecified bronchus or lung (HCC) [facility]* Diagnosis Radiotherapy follow-up- Primary Radiotherapy follow-up examination Squamous cell carcinoma of left lung (HCC) [facility]* Diagnosis Lung mass Swelling, mass, or lump in chest Malignant neoplasm of unspecified part of unspecified bronchus or lung (HCC) [facility]* Diagnosis Lung mass Swelling, mass, or lump in chest Malignant neoplasm of unspecified part of unspecified bronchus or lung (HCC)- Primary [facility]* Diagnosis Lung mass Swelling, mass, or lump in chest Radiotherapy follow-up- Primary Radiotherapy follow-up examination Squamous cell carcinoma of left lung (HCC) [facility]* Diagnosis Lung mass Swelling, mass, or lump in chest Malignant neoplasm of unspecified part of unspecified bronchus or lung (HCC) [facility]* Diagnosis Lung mass Swelling, mass, or lump in chest Malignant neoplasm of unspecified part of unspecified bronchus or lung (HCC)- Primary [facility]* Diagnosis Lung mass Swelling, mass, or lump in chest Chest pain, unspecified type- Primary Chest pain, unspecified type [facility]* Diagnosis Lung mass Swelling, mass, or lump in chest Chest pain, unspecified type [facility]* Diagnosis Lung mass Swelling, mass, or [...] and bone marrow [facility] Diagnosis Lung mass Swelling, mass, or lump in chest 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 [facility] Diagnosis Lung mass Swelling, mass, or lump in chest Primary malignant neoplasm of lung metastatic to other site, unspecified laterality (HCC)- Primary [facility]* Diagnosis Lung mass Swelling, mass, or lump in chest Paraspinal mass Other symptoms involving nervous and musculoskeletal systems [facility] Diagnosis Lung mass Swelling, mass, or lump in chest 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 [facility]* Diagnosis Lung mass Swelling, mass, or lump in chest Malignant neoplasm of unspecified part of unspecified bronchus or lung (HCC)- Primary Squamous cell carcinoma of left lung (HCC) [facility]* Diagnosis Lung mass Swelling, mass, or lump in chest 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 Angelica Rodriguez MD Status:REG ER Location: ED HPI - General General Date of Admission: 09/04/24 Date of Service: 09/04/24 Chief Complaint: fall, generalized weakness HPI Narrative REY MEAD, is a 69-year-old male with history of ELLEN, lung cancer on radiation, COPD, BPH, diabetes, GERD, anxiety, CAD who presented to [facility] ED 09/06/2024 via EMS after a [...] fluids. No other new or acute complaints. [facility] Medical History Alcohol use Excessive bleeding History [...] 90.2 H, Lymph % (Auto) 2.7 L, Dent % (Auto) 5.5, Eos % (Auto) 0.0, [...] Clarity Clear, Urine pH 6.0, Ur Specific [place] 1.010, Urine Protein 30 H, Urine Glucose [...] in the left upper lobe. Reading Location: [id number] Pelvis X-Ray 09/04/24 11:06 IMPRESSION: No acute abnormality is seen. Dense atherosclerotic calcification of the abdominal aorta and iliac arteries. Reading Location: [id number] Toe X-Ray 09/04/24 11:06 IMPRESSION: No acute fracture is seen. Reading Location: [facility] Assessment & Plan Assessment/Plan (1) Sepsis: PLAN: [...] right lobectomy - Follows with Dr. Valdemar Gutierrez on an outpatient basis #Chronic BPH with [...] bolus ordered Charges/Coding Visit Charges Inpatient E&M: 41816 Init Hosp L2 09/04/24 7404 <Electronically signed by Serina Juan MD> Cosigner Signature (if applicable): CC: Dr. Angelica Rodriguez MD; Dr. Serina Juan MD~ Signed [facility] Work Phone: Hospital course Narrative No data available for this section [facility] Hospital Discharge instructions No data available for this section [facility] Hospital Discharge instructions Additional Instructions No specific cause for your abdominal pain. Follow-up with your primary care physician to be referred to pain management for further evaluation and possible treatment.[facility] Work Phone: Hospital Discharge instructionsAdditional Instructions Your potassium is low I wrote you to be taking Cater twice a day for the next 10 days and have your potassium rechecked. Plenty of fluids and rest Follow-up with your doctor to ensure you are improving.[facility] Work Phone: Progress note No data available for this section [facility] Reason for referral (narrative)No reason for referral information availableWVan [facility] Hospital Work Phone: Summary Purpose Family History Relationship Condition Age at Onset Recorded Date/T sobeida mother Malignant neoplasm Unknown Cardiac disease Unknown father Malignant neoplasm Unknown sister Malignant neoplasm Unknown Relationship Condition Age at Onset Recorded Date/T sobeida mother Malignant neoplasm Unknown Cardiac disease Unknown father Malignant neoplasm Unknown sister Malignant neoplasm Unknown sister Malignant neoplasm of colon Unknown Advance Directives Advance Directive Response Recorded Date/ Time Living Will No January 08 9:45am Power of Glory Hole Tender No January 08, 2023 9:45am Advance Directive Response Recorded Date/ Time Living Will No January 08 8:45am Power of Glory Hole Tender No January 08, 2023 8:45am Advance Directive Response Recorded Date/ Time Living Will No May 09 8:38am Power of Glory Hole Tender No May 09, 2024 8:38am Advance Directive Response Recorded Date/ Time Living Will No May 09 8:38am Power of Glory Hole Tender No May 09, 2024 8:38am Living Will No May 23, 2024 9:55am Power of Glory Hole Tender No May 23 9:55am Advance Directive Response Recorded Date/ Time Living Will No May 09 025 8:38am Do you have a Healthcare Power of Glory Hole Tender? No May 09, 2024 8:38am Living Will No May 23, 2024 9:55am Do you have a Healthcare Power of Glory Hole Tender? No May 23, 2024 9:55am Living Will No June 09, 2024 2:10pm Do you have a Healthcare Power of Glory Hole Tender? No June 09, 2024 2:10pm Advance Directive Response Recorded Date/ Time Living Will No May 09 8:38am Do you have a Healthcare Power of Glory Hole Tender? No May 09, 2024 8:38am Living Will No May 23, 2024 9:55am Do you have a Healthcare Power of Glory Hole Tender? No May 23, 2024 9:55am Do you have a Healthcare Power of Glory Hole Tender? No September 04, 2024 10:39am Living Will No June 09, 2024 2:10pm Do you have a Healthcare Power of Glory Hole Tender? No June 09, 2024 2:10pm Advance Directive Response Recorded Date/ Time Living Will No May 23, 2024 9:55am Do you have a Healthcare Power of Glory Hole Tender? No May 23, 2024 9:55am Do you have a Healthcare Power of Glory Hole Tender? No September 04, 2024 4:22pm Living Will No June 09, 2024 2:10pm Do you have a Healthcare Power of Glory Hole Tender? No June 09, 2024 2:10pm Advance Directive Response Recorded Date/ Time Do you have a Healthcare Power of Glory Hole Tender? No September 04, 2024 4:22pm Do you have a Healthcare Power of Glory Hole Tender? No October 05, 2024 4:38pm Do you have a Healthcare Power of Glory Hole Tender? No October 19, 2024 3:13pm Do you have a Healthcare Power of Glory Hole Tender? No September 19, 2024 6:22pm Advance Directive Response Recorded Date/ Time Do you have a Healthcare Power of Glory Hole Tender? No September 04, 2024 4:22pm Do you have a Healthcare Power of Glory Hole Tender? No October 05, 2024 4:38pm Do you have a Healthcare Power of Glory Hole Tender? No October 19, 2024 3:13pm Do you have a Healthcare Power of Glory Hole Tender? No September 19, 2024 6:22pm Do you have a Healthcare Power of Glory Hole Tender? No October 26, 2024 5:28pm Chief Complaint and Reason for Visit Chief [...] pm Chief Complaint Admit Date AAA, L HCRISS aneurysm May 18, 2024 2:53 pm Abdominal [...] DEHYDRATION, DRY GANGRENE September 25, 2024 8:12am WC FU October 05, 2024 9:54 am CHEST [...] (peripheral vascular disease) September 192024 5:12pm Anemia October 05, 2024 9:54 am Gangrene of left foot October 05, 2024 9: 54am Hospital discharge follow-up October 05, 2024 9:54am Chief Complaint Admit Date Pain July 07, 2024 9:2 8am fu [...] pm DIZZY October 19, 2024 3:0 8pm chest pain October 26, 2024 10 :39pm Reason for Visit Admit Date RUQ pain July 24, 2024 9:58a m [...] (peripheral vascular disease) September 192024 5:12pm Anemia October 05, 2024 9:54 am Gangrene of left foot October [...] Va Dunaway MD [address] [place] [address] [place] [id number] Referral ID Status Reason Start Date Expiration Date Visits Requested Visits Authorized [id number] Pending Review Auto-Generat ed Referral 08/23/2023 07/22/2024 1 1 Specialty Diagnoses / Procedures Referred By Contac t Referred To Contact MR IMAGING Diagnoses Squamous cell carcinoma of left lung (HCC) Procedures MRI BRAIN WO/W IVCON MRI BRAIN BRAIN STEM W/O W/CONTRAST MATERIAL Tay Montiel MD [address] [place] [address] Mr Imaging [facility] Referral ID Status Reason Start Date Expiration Date V isits Requested Visits Authorized [id number] Closed Auto-Generate d Referral 05/07/2023 06/06/2023 1 1 Specialty Diagnoses / Procedures Referred By Contac t Referred To Contact Diagnoses Squamous cell carcinoma of left lung (HCC) Procedures CT SIM PLANNING RADIATION ONCOLOGY THER RAD SIMULAJ-AIDED FIELD SETTING COMPLEX Va Dunaway MD [address] [place] [address] Referral ID Status Reason Start Date Expiration Date Visits Requested Visits Authorized [id number] Pending Review PCP Requested Referral 04/30/2023 07/27/2023 1 1 Additional Source Comments (unrecognized sect ion and content) No Status Records FoundNo Status Records FoundNo Status Records FoundNo Status Records FoundNo Status Records Found INFORMATION SOURCE (unrecogn ized section and content) DATE CREATED AUTHOR [facility] DATE CREATED AUTHOR AUTHOR'S ORGANIZ ATION 06/01/2023 [facility] ([place]) DATE CREATED AUTHOR AUTHOR'S ORGANIZ ATION 09/14/2024 [facility] DATE CREATED AUTHOR AUTHOR'S ORGANIZ ATION 10/24/2024 [facility] DATE CREATED AUTHOR AUTHOR'S ORGANIZ ATION 10/26/2024 [facility] Care Team (unrecognized sect ion and content) Personnel Name: ROMAIN BLACK DO Address: Address: [address] [place] [address] [place] Care Team Personnel Name: ROMAIN BLACK DO Position: P4 Physician - Primary Care Member Role: Primary Care Physician Address: Address: [address] [place] [address]- [place] Care Team Related Persons Name: CAT MEAD Address: [address] [place], [place] [id number] [place] Name: CAT MEAD Address: [address] [place], [place] [id number] [place] Care Team Personnel Name: ROMAIN BLACK DO Position: P4 Physician - Primary Care Member Role: Primary Care Physician Address: Address: [address] [place] [address]- [place] Care Team Related Persons Name: CAT MEAD Address: [address] [place], [place] [id number] [place] Name: CAT MEAD Address: [address] [place], [place] [id number] [place] Care Team Personnel Name: ROMAIN BLACK DO Position: P4 Physician - Primary Care Member Role: Primary Care Physician Address: Address: [address] [place] [address]- [place] Care Team Related Persons Name: CAT MEAD Address: [address] [place], [place] [id number] [place] Name: CAT MEAD Address: [address] [place], [place] [id number] [place] Care Team Personnel Name: ROMAIN BLACK DO Position: P4 Physician - Primary Care Member Role: Primary Care Physician Address: Address: [address] [place] [address]- Care Team Related Persons Name: CAT MEAD Address: [address] [place], [place] [id number] [place] Name: CAT MEAD Address: [address] [place], [place] [phone] [place] Patient Care team informatio n (unrecognized section and content) Team Status: Active Member Role Status Dates Dr. Romain Black DO Family Provider Active Dr. Romain Black DO Primary Care Provider Active Team Status: Inactive Member Role Status Dates Dr. Romain Black DO Primary Care Provider, Referri ng Provider Active Dr. Romain Hurd MD Attending Provider Active Team Status: Inactive Member Role Status Dates Dr. Romain Black DO Primary Care Provider Active Dr. Romain Hurd MD Attending Provider, Referrin g Provider Active Pharmacy Technology Instructor Relationship Specialty Start Date End Date Romain Hurd V [address] [place] [phone] Internal Medicine 02/26/23 Pharmacy Technology Instructor Relationship Specialty Start Date End Date Romain Black DO [address] [place], [place] [address] PCP - General Family Medicine 03/29/23 Romain Hurd V [address] [place] [phone] Internal Medicine 02/26/23 Va Dunaway MD, MD [address] [place], [place] [address] Physician Radiation Oncology 04/08/23 Pharmacy Technology Instructor Relationship Specialty Start Date End Date Romain Black DO [address] [place], [place] [address] PCP - General Family Medicine 03/29/23 Romain Hurd V [address] [place] [address] Internal Medicine 02/26/23 Va Dunaway MD [address] [place] [address] Physician Radiation Oncology 04/08/23 Pharmacy Technology Instructor Relationship Specialty Start Date End Date Romain Black DO [address] [place] [address] PCP - General Family Medicine 03/29/23 Romain Hurd V [address] [place] [address] Internal Medicine 02/26/23 Va Dunaway MD [address] [place] [address] Physician Radiation Oncology 04/08/23 Pharmacy Technology Instructor Relationship Specialty Start Date End Date Romain Black DO [address] [place] [address] PCP - General Family Medicine 03/29/23 Romain Hurd V [address] [place] [address] Internal Medicine 02/26/23 Va Dunaway MD [address] [place] [address] Physician Radiation Oncology 04/08/23 Valdemar Gutierrez MD [address] [place] [address] Hematology/Oncology 04/22/23 Pharmacy Technology Instructor Relationship Specialty Start Date End Date Romain Black DO [address] [place] [address] PCP - General Family Medicine 03/29/23 Romain Hurd V [address] [place] [address] Internal Medicine 02/26/23 Va Dunaway MD [address] [place] [address] Physician Radiation Oncology 04/08/23 Valdemar Gutierrez MD [address] [place] [address] Hematology/Oncology 04/22/23 Pharmacy Technology Instructor Relationship Specialty Start Date End Date Romain Black DO [address] [place] [address] PCP - General Family Medicine 03/29/23 Romain Hurd V [address] [place] [address] Internal Medicine 02/26/23 Va Dunaway MD [address] [place] [address] Physician Radiation Oncology 04/08/23 Valdemar Gutierrez MD [address] [place] [address] Hematology/Oncology 04/22/23 Pharmacy Technology Instructor Relationship Specialty Start Date End Date Romain Black DO [address] [place] [address] PCP - General Family Medicine 03/29/23 Romain Hurd V [address] [place] [address] Internal Medicine 02/26/23 Va Dunaway MD [address] [place] [address] Physician Radiation Oncology 04/08/23 Valdemar Gutierrez MD [address] [place] [address] Hematology/Oncology 04/22/23 Pharmacy Technology Instructor Relationship Specialty Start Date End Date Romain Black DO [address] [place] [address] PCP - General Family Medicine 03/29/23 Romain Hurd V [address] [place] [address] Internal Medicine 02/26/23 Va Dunaway MD [address] [place] [address] Physician Radiation Oncology 04/08/23 Valdemar Gutierrez MD [address] [place] [address] Hematology/Oncology 04/22/23 Pharmacy Technology Instructor Relationship Specialty Start Date End Date Romain Black DO [address] [place] [address] PCP - General Family Medicine 03/29/23 Romain Hurd V [address] [place] [address] Internal Medicine 02/26/23 Va Dunaway MD [address] [place] [address] Physician Radiation Oncology 04/08/23 Valdemar Gutierrez MD [address] [place] [address] Hematology/Oncology 04/22/23 Pharmacy Technology Instructor Relationship Specialty Start Date End Date Romain Black DO [address] [place] [address] PCP - General Family Medicine 03/29/23 Romain Hurd V [address] [place] [address] Internal Medicine 02/26/23 Va Dunaway MD [address] [place] [address] Physician Radiation Oncology 04/08/23 Valdemar Gutierrez MD [address] [place] [address] Hematology/Oncology 04/22/23 Pharmacy Technology Instructor Relationship Specialty Start Date End Date Romain Black DO [address] [place] [address] PCP - General Family Medicine 03/29/23 Romain Hurd V [address] [place] [address] Internal Medicine 02/26/23 Va Dunaway MD [address] [place] [address] Physician Radiation Oncology 04/08/23 Valdemar Gutierrez MD [address] [place] [address] Hematology/Oncology 04/22/23 Pharmacy Technology Instructor Relationship Specialty Start Date End Date Romain Black DO [address] [place] [address] PCP - General Family Medicine 03/29/23 Romain Hurd V [address] [place] [address] Internal Medicine 02/26/23 Va Dunaway MD [address] [place] [address] Physician Radiation Oncology 04/08/23 Valdemar Gutierrez MD [address] [place] [address] Hematology/Oncology 04/22/23 Pharmacy Technology Instructor Relationship Specialty Start Date End Date Romain Black DO [address] [place] [address] PCP - General Family Medicine 03/29/23 Romain Hurd V [address] [place] [phone] Internal Medicine 02/26/23 Va Dunaway MD [address] [place] [address] Physician Radiation Oncology 04/08/23 Valdemar Gutierrez MD [address] [place] [address] Hematology/Oncology 04/22/23 Pharmacy Technology Instructor Relationship Specialty Start Date End Date Romain Black DO [address] [facility] [address] [place] [address] PCP - General Family Medicine 03/29/23 Romain Hurd V [address] [place] [address] Internal Medicine 02/26/23 Va Dunaway MD [address] [place] [address] Physician Radiation Oncology 04/08/23 Valdemar Gutierrez MD [address] [place] [address] Hematology/Oncology 04/22/23 Pharmacy Technology Instructor Relationship Specialty Start Date End Date Romain Black DO 49 [facility] [address] [place] [address] PCP - General Family Medicine 03/29/23 Romain Hurd V [address] [address] Internal Medicine 02/26/23 Va Dunaway MD [address] [place] [address] Physician Radiation Oncology 04/08/23 Valdemar Gutierrez MD [address] [place] [address] Hematology/Oncology 04/22/23 Pharmacy Technology Instructor Relationship Specialty Start Date End Date Romain Black DO 49 [facility] [address] [place] [address] PCP - General Family Medicine 03/29/23 Romain Hurd V [address] [place] [address] Internal Medicine 02/26/23 Va Dunaway MD [address] [place] [address] Physician Radiation Oncology 04/08/23 Valdemar Gutierrez MD [address] [place] [address] Hematology/Oncology 04/22/23 Pharmacy Technology Instructor Relationship Specialty Start Date End Date Romain Black DO 49 [facility] [address] [place] [address] PCP - General Family Medicine 03/29/23 Romain Hurd V [address] [place] [address] Internal Medicine 02/26/23 Va Dunaway MD [address] [place] [address] Physician Radiation Oncology 04/08/23 Valdemar Gutierrez MD [address] [place] [address] Hematology/Oncology 04/22/23 Lyubov Little CNP [address] [place] [address] Family Medicine 12/01/23 Latosha Renee MD [address] [place] [address] Endocrinology 12/01/23 Pharmacy Technology Instructor Relationship Specialty Start Date End Date Romain Black DO [address] [place] [address] PCP - General Family Medicine 03/29/23 Romain Hurd V [address] [place] [address] Internal Medicine 02/26/23 Va Dunaway MD [address] [place] [address] Physician Radiation Oncology 04/08/23 Valdemar Gutierrez MD [address] [place] [address] Hematology/Oncology 04/22/23 Lyubov Little CNP [address] [place] [address] Family Medicine 12/01/23 Latosha Renee MD [address] [address] Endocrinology 12/01/23 Pharmacy Technology Instructor Relationship Specialty Start Date End Date Romain Black DO 49 [facility] [address] [place] [address] PCP - General Family Medicine 03/29/23 Romain Hurd V [address] [place] [address] Internal Medicine 02/26/23 Va Dunaway MD [address] [place] [address] Physician Radiation Oncology 04/08/23 Valdemar Gutierrez MD [address] [place] [address] Hematology/Oncology 04/22/23 Lyubov Little CNP [address] [place] [address] Family Medicine 12/01/23 Latosha Renee MD [address] [place] [address] Endocrinology 12/01/23 Pharmacy Technology Instructor Relationship Specialty Start Date End Date Romain Black DO 49 [facility] [address] [place] [address] PCP - General Family Medicine 03/29/23 Romain Hurd V [address] [place] [address] Internal Medicine 02/26/23 Va Dunaway MD [address] [place] [address] Physician Radiation Oncology 04/08/23 Valdemar Gutierrez MD [address] [place] [address] Hematology/Oncology 04/22/23 Lyubov Little CNP [address] [place] [address] Family Medicine 12/01/23 Latosha Renee MD [address] [place] [address] Endocrinology 12/01/23 Pharmacy Technology Instructor Relationship Specialty Start Date End Date Romain Black DO [address] [place] [address] PCP - General Family Medicine 03/29/23 Romain Hurd V [address] [place] [address] Internal Medicine 02/26/23 Va Dunaway MD [address] [place], [place] [address] Physician Radiation Oncology 04/08/23 Valdemar Gutierrez MD [address] [place] [address] Hematology/Oncology 04/22/23 Lyubov Little CNP [address] [place] [address] Family Medicine 12/01/23 Latosha Renee MD [address] [place] [address] Endocrinology 12/01/23 Pharmacy Technology Instructor Relationship Specialty Start Date End Date Romain Black DO [address] [place] [address] PCP - General Family Medicine 03/29/23 Romain Hurd V [address] [place] [address] Internal Medicine 02/26/23 Va Dunaway MD [address] [place], [place] [address] Physician Radiation Oncology 04/08/23 Valdemar Gutierrez MD [address] [place], [place] [address] Hematology/Oncology 04/22/23 Lyubov Little CNP [address] [place] [address] Family Medicine 12/01/23 Latosha Renee MD [address] [place] [address] Endocrinology 12/01/23 Pharmacy Technology Instructor Relationship Specialty Start Date End Date Romain Hurd V [address] [place] [address] Internal Medicine 02/26/23 Va Dunaway MD [address] [place] [address] Physician Radiation Oncology 04/08/23 Valdemar Gutierrez MD [address] [place] [address] Hematology/Oncology 04/22/23 Lyubov Little HEAD PASTRY CHEF [address] [place] [address] Family Medicine 12/01/23 Latosha Renee MD [address] [place] [address] Endocrinology 12/01/23 Pharmacy Technology Instructor Relationship Specialty Start Date End Date Romain Hurd V [address] [place] [address] Internal Medicine 02/26/23 Va Dunaway MD [address] [place] [address] Physician Radiation Oncology 04/08/23 Valdemar Gutierrez MD [address] [place] [address] Hematology/Oncology 04/22/23 Lyubov Little CNP [address] [place] [address] Family Medicine 12/01/23 Latosha Renee MD [address] [address] Endocrinology 12/01/23 Pharmacy Technology Instructor Relationship Specialty Start Date End Date Romain Hurd V [address] [address] Internal Medicine 02/26/23 Va Dunaway MD [address] [place] [address] Physician Radiation Oncology 04/08/23 Valdmear Gutierrez MD [address] [place] [address] Hematology/Oncology 04/22/23 Lyubov Little CNP [address] [place] [address] Family Medicine 12/01/23 Latosha Renee MD [address] [place] [address] Endocrinology 12/01/23 Pharmacy Technology Instructor Relationship Specialty Start Date End Date Romain Hurd V [address] [place] [address] Internal Medicine 02/26/23 Va Dunaway MD [address] [place] [address] Physician Radiation Oncology 04/08/23 Valdemar Gutierrez MD [address] [place] [address] Hematology/Oncology 04/22/23 Lyubov Little CNP [address] [place] [address] Family Medicine 12/01/23 Latosha Renee MD [address] [place] [address] Endocrinology 12/01/23 Pharmacy Technology Instructor Relationship Specialty Start Date End Date Romain Hurd V [address] [place] [phone] Internal Medicine 02/26/23 Va Dunaway MD [address] [place] [address] Physician Radiation Oncology 04/08/23 Valdemar Gutierrez MD [address] [place] [address] Hematology/Oncology 04/22/23 Lyubov Little CNP [address] [place] [address] Family Medicine 12/01/23 Latosha Renee MD [address] [place] [address] Endocrinology 12/01/23 Pharmacy Technology Instructor Relationship Specialty Start Date End Date Romain Hurd V [address] [place] [phone] Internal Medicine 02/26/23 Va Dunaway MD [address] [facility] [place] [place] [address] Physician Radiation Oncology 04/08/23 Valdemar Gutierrez MD [address] [facility] [place] [place], [place] [address] Hematology/Oncology 04/22/23 Leonel Lyubov Noemy HEAD PASTRY CHEF [address] [place] [address] Family Medicine 12/01/23 Latosha Renee MD [address] [address] Endocrinology 12/01/23 Team Status: Active Member Role Status Dates Dr. Angelica Rodriguez MD Primary Care Provider Active Team Status: Inactive Member Role Status Dates Dr. Romain Black DO Referring Provider Active Start: March 22, 2024 End: March 22, 2024 Dr. Peter Mohan MD Attending Provider Active S tart: March 22, 2024 End: March 22, 2024 Dr. Angelica Rodriguez MD Primary Care Provider Active Start: March 22, 2024 End: March 22, 2024 Team Status: Inactive Member Role Status Dates Dr. Angelica Rodriguez MD Primary Care Provider Active Start: April 06, 2024 End: April 06, 2024 Dr. Peter Mohan MD Attending Provider Active S tart: April 06, 2024 End: April 06, 2024 Dr. Peter Mohan MD Referring Provider Active S tart: April 06, 2024 End: April 06, 2024 Team Status: Active Member Role Status Dates Dr. Angelica Rodriguez MD Primary Care Provider Active Start: April 06, 2024 Dr. Peter Mohan MD Attending Provider Active S tart: April 06, 2024 Team Status: Inactive Member Role Status Dates Dr. Angelica Rodriguez MD Primary Care Provider Active Start: May 09, 2024 End: May 09, 2024 Aden Stahl MD Attending Provider Active Star t: May 09, 2024 End: May 09, 2024 Aden Stahl MD Emergency Provider Active Star t: May 09, 2024 End: May 09, 2024 Team Status: Inactive Member Role Status Dates Dr. Angelica Rodriguez MD Primary Care Provider Active Start: May 10, 2024 End: May 10, 2024 Dr. Angelica Rodriguez MD Referring Provider Active Start: May 10, 2024 End: May 10, 2024 Jaleesa Galindo NP-C Attending Provider Active Start: May 10, 2024 End: May 10, 2024 Team Status: Inactive Member Role Status Dates Dr. Angelica Rodriguez MD Primary Care Provider Active Start: May 12, 2024 End: May 12, 2024 Jaleesa Galindo NP-C Attending Provider Active Start: May 12, 2024 End: May 12, 2024 Jaleesa Galindo NP-C Referring Provider Active Start: May 12, 2024 End: May 12, 2024 Team Status: Inactive Member Role Status Dates Dr. Angelica Rodriguez MD Primary Care Provider Active Start: May 18, 2024 End: May 18, 2024 Dr. Angelica Rodriguez MD Referring Provider Active Start: May 18, 2024 End: May 18, 2024 Dr. Naresh Cuellar MD Attending Provider Active S tart: May 18, 2024 End: May 18, 2024 Team Status: Inactive Member Role Status Dates Dr. Angelica Rodriguez MD Primary Care Provider Active Start: May 31, 2024 End: May 31, 2024 Dr. Angelica Rodriguez MD Referring Provider Active Start: May 31, 2024 End: May 31, 2024 Dr. Wild Santos DO Attending Provider Active Start: May 31, 2024 End: May 31, 2024 Team Status: Active Member Role Status Dates Dr. Angelica Rodriguez MD Primary Care Provider Active Start: May 31, 2024 Dr. Angelica Rodriguez MD Referring Provider Active Start: May 31, 2024 Dr. Wild Santos DO Attending Provider Active Start: May 31, 2024 Dr. Wild Santos DO Other Provider Active St art: May 31, 2024 Team Status: Active Member Role Status Dates Dr. Angelica Rodriguez MD Primary Care Provider Active Start: June 06, 2024 Dr. Latosha Renee MD Attending Provider Act enmanuel Start: June 06, 2024 Dr. Latosha Renee MD Referring Provider Act enmanuel Start: June 06, 2024 Team Status: Inactive Member Role Status Dates Dr. Angelica Rodriguez MD Primary Care Provider Active Start: June 09, 2024 End: June 09, 2024 Dr. Carroll Celeste MD Emergency Provider Active S tart: June 09, 2024 End: June 09, 2024 Team Status: Inactive Member Role Status Dates Dr. Angelica Rodriguez MD Primary Care Provider Active Start: June 06, 2024 End: June 06, 2024 Dr. Latosha Renee MD Attending Provider Act enmanuel Start: June 06, 2024 End: June 06, 2024 Dr. Latosha Renee MD Referring Provider Act enmanuel Start: June 06, 2024 End: June 06, 2024 Pharmacy Technology Instructor Relationship Specialty Start Date End Date Romain Hurd V [address] [place] [address] Internal Medicine 02/26/23 Va Dunaway MD [address] [place], [place] [id number] Physician Radiation Oncology 04/08/23 Valdemar Gutierrez MD [address] [place], [place] [id number] Hematology/Oncology 04/22/23 Lyubov Little CNP [address] [place] [address] Family Medicine 12/01/23 Latosha Renee MD [address] [place] [id number] Endocrinology 12/01/23 Team Status: Inactive Member Role Status Dates Dr. Angelica Rodriguez MD Primary Care Provider Active Start: June 09, 2024 End: June 09, 2024 Dr. Carroll Celeste MD Attending Provider Active S tart: June 09, 2024 End: June 09, 2024 Dr. Carroll Celeste MD Emergency Provider Active S tart: June 09, 2024 End: June 09, 2024 Team Status: Inactive Member Role Status Dates Dr. Romain Black DO Referring Provider Active Start: June 14, 2024 End: June 14, 2024 Dr. Angelica Rodriguez MD Primary Care Provider Active Start: June 14, 2024 End: June 14, 2024 Dr. Angelica Rodriguez MD Attending Provider Active Start: June 14, 2024 End: June 14, 2024 Team Status: Inactive Member Role Status Dates Dr. Angelica Rodriguez MD Primary Care Provider Active Start: June 14, 2024 End: June 14, 2024 Dr. Angelica Rodriguez MD Attending Provider Active Start: June 14, 2024 End: June 14, 2024 Dr. Angelica Rodriguez MD Referring Provider Active Start: June 14, 2024 End: June 14, 2024 Team Status: Active Member Role Status Dates Dr. Angelica Rodriguez MD Primary Care Provider Active Start: June 15, 2024 Dr. Angelica Rodriguez MD Attending Provider Active Start: June 15, 2024 Team Status: Inactive Member Role Status Dates Dr. Angelica Rodriguez MD Primary Care Provider Active Start: June 15, 2024 End: June 15, 2024 Dr. Angelica Rodriguez MD Attending Provider Active Start: June 15, 2024 End: June 15, 2024 Team Status: Active Member Role Status Dates Dr. Angelica Rodriguez MD Primary Care Provider Active Start: May 31, 2024 Dr. Del King MD Attending Provider Active Start: May 31, 2024 Dr. Del King MD Referring Provider Active Start: May 31, 2024 Team Status: Inactive Member Role Status Dates Dr. Angelica Rodriguez MD Primary Care Provider Active Start: June 23, 2024 End: June 23, 2024 Dr. Latosha Renee MD Attending Provider Act enmanuel Start: June 23, 2024 End: June 23, 2024 Dr. Latosha Renee MD Referring Provider Act enmanuel Start: June 23, 2024 End: June 23, 2024 Team Status: Inactive Member Role Status Dates Dr. Angelica Rodriguez MD Primary Care Provider Active Start: June 26, 2024 End: June 26, 2024 Dr. Angelica Rodriguez MD Referring Provider Active Start: June 26, 2024 End: June 26, 2024 Jaleesa Galindo NP-C Attending Provider Active Start: June 26, 2024 End: June 26, 2024 Pharmacy Technology Instructor Relationship Specialty Start Date End Date Romain Hurd V [address] [place] [address] Internal Medicine 02/26/23 Va Dunaway MD [address] [facility] [place] [address] Physician Radiation Oncology 04/08/23 Valdemar Gutierrez MD [address] [facility] [place] [address] Hematology/Oncology 04/22/23 Lyubov Little CNP [address] [place] [id number] Family Medicine 12/01/23 Latosha Renee MD [address] [place] [id number] Endocrinology 12/01/23 Team Status: Inactive Member Role Status Dates Dr. Angelica Rodriguez MD Primary Care Provider Active Start: July 07, 2024 End: July 07, 2024 JACEY Haddad Attending Provider Active Start: July 07, 2024 End: July 07, 2024 JACEY Haddad Referring Provider Active Start: July 07, 2024 End: July 07, 2024 Team Status: Inactive Member Role Status Dates Dr. Angelica Rodriguez MD Primary Care Provider Active Start: July 20, 2024 End: July 20, 2024 Dr. Latosha Renee MD Attending Provider Act enmanuel Start: July 20, 2024 End: July 20, 2024 Dr. Latosha Renee MD Referring Provider Act enmanuel Start: July 20, 2024 End: July 20, 2024 Team Status: Inactive Member Role Status Dates Dr. Angelica Rodriguez MD Primary Care Provider Active Start: July 24, 2024 End: July 24, 2024 Dr. Angelica Rodriguez MD Referring Provider Active Start: July 24, 2024 End: July 24, 2024 JACEY Haddad Attending Provider Active Start: July 24, 2024 End: July 24, 2024 Team Status: Active Member Role Status Dates Dr. Angelica Rodriguez MD Primary Care Provider Active Start: August 04, 2024 Dr. Brad Hou MD Attending Provider Active Start: August 04, 2024 Dr. Brad Hou MD Referring Provider Active Start: August 04, 2024 Team Status: Inactive Member Role Status Dates Dr. Angelica Rodriguez MD Primary Care Provider Active Start: August 08, 2024 End: August 08, 2024 JACEY Haddad Attending Provider Active Start: August 08, 2024 End: August 08, 2024 JACEY Haddad Referring Provider Active Start: August 08, 2024 End: August 08, 2024 Pharmacy Technology Instructor Relationship Specialty Start Date End Date [place] [address] Internal Medicine 02/26/23 Va Dunaway MD [address] [place] [address] Physician Radiation Oncology 04/08/23 Valdemar Gutierrez MD [address] [place] [address] Hematology/Oncology 04/22/23 Lyubov Little, HEAD PASTRY CHEF [address] [place] [phone] Family Medicine 12/01/23 Latosha Renee MD [address] [place] [address] Endocrinology 12/01/23 Pharmacy Technology Instructor Relationship Specialty Start Date End Date Romain Hurd [place] [address] [place] [phone] Internal Medicine 02/26/23 Va Dunaway MD [address] [place] [address] Physician Radiation Oncology 04/08/23 Valdemar Gutierrez MD [address] [place] [address] Hematology/Oncology 04/22/23 Lyubov Little CNP [address] [place] [id number] Family Medicine 12/01/23 Latosha Renee MD [address] [place] [address] Endocrinology 12/01/23 Pharmacy Technology Instructor Relationship Specialty Start Date End Date Romain Hurd V [address] [place] [address] Internal Medicine 02/26/23 Va Dunaway MD [address] [place] [address] Physician Radiation Oncology 04/08/23 Valdemar Gutierrez MD [address] [place] [address] Hematology/Oncology 04/22/23 Lyubov Little CNP [address] [place] [address] Family Medicine 12/01/23 Latosha Renee MD [address] [place] [address] Endocrinology 12/01/23 Pharmacy Technology Instructor Relationship Specialty Start Date End Date Romain Hurd V [address] [place] [phone] Internal Medicine 02/26/23 Va Dunaway MD [address] [place] [address] Physician Radiation Oncology 04/08/23 Valdemar Gutierrez MD [address] [place] [address] Hematology/Oncology 04/22/23 Lyubov Little CNP [address] [place] [address] Family Medicine 12/01/23 Latosha Renee MD [address] [place] [address] Endocrinology 12/01/23 Pharmacy Technology Instructor Relationship Specialty Start Date End Date Romain Hurd V [address] [place] [id number] Internal Medicine 02/26/23 Va Dunaway MD [address] [place], [place] [id number] Physician Radiation Oncology 04/08/23 Valdemar Gutierrez MD [address] [place] [address] Hematology/Oncology 04/22/23 Lyubov Little CNP [address] [place] [address] Family Medicine 12/01/23 Latosha Renee MD [address] [place] [address] Endocrinology 12/01/23 Team Status: Active Member Role Status Dates Dr. Angelica Rodriguez MD Primary Care Provider Active Start: September 04, 2024 Dr. Janie Madsen , Emergency Provider Active S tart: September 04, 2024 Dr. Serina Juan MD Admit Provider Active Star t: September 04, 2024 Dr. Serina Juan MD Attending Provider Active Start: September 04, 2024 Team Status: Active Member Role/Relationship Status Dates Dr. Angelica Rodriguez MD Primary Care Provider Active Team Status: Inactive Member Role/Relationship Status Dates Dr. Angelica Rodriguez MD Primary Care Provider Active Start: May 18, 2024 End: May 18, 2024 Dr. Angelica Rodriguez MD Referring Provider Active Start: May 18, 2024 End: May 18, 2024 Dr. Naresh Cuellar MD Attending Provider Active S tart: May 18, 2024 End: May 18, 2024 Team Status: Active Member Role/Relationship Status Dates Dr. Angelica Rodriguez MD Primary Care Provider Active Start: May 31, 2024 Dr. Del King MD Attending Provider Active Start: May 31, 2024 Dr. Del King MD Referring Provider Active Start: May 31, 2024 Team Status: Inactive Member Role/Relationship Status Dates Dr. Angelica Rodriguez MD Primary Care Provider Active Start: May 31, 2024 End: May 31, 2024 Dr. Angelica Rodriguez MD Referring Provider Active Start: May 31, 2024 End: May 31, 2024 Dr. Wild Santos DO Attending Provider Active Start: May 31, 2024 End: May 31, 2024 Team Status: Active Member Role/Relationship Status Dates Dr. Angelica Rodriguez MD Primary Care Provider Active Start: May 31, 2024 Dr. Angelica Rodriguez MD Referring Provider Active Start: May 31, 2024 Dr. Wild Santos DO Attending Provider Active Start: May 31, 2024 Dr. Wild Santos DO Other Provider Active St art: May 31, 2024 Team Status: Inactive Member Role/Relationship Status Dates Dr. Angelica Rodriguez MD Primary Care Provider Active Start: June 06, 2024 End: June 06, 2024 Dr. Latosha Renee MD Attending Provider Act enmanuel Start: June 06, 2024 End: June 06, 2024 Dr. Latosha Renee MD Referring Provider Act enmanuel Start: June 06, 2024 End: June 06, 2024 Team Status: Inactive Member Role/Relationship Status Dates Dr. Angelica Rodriguez MD Primary Care Provider Active Start: June 09, 2024 End: June 09, 2024 Dr. Carroll Celeste MD Attending Provider Active S tart: June 09, 2024 End: June 09, 2024 Dr. Carroll Celeste MD Emergency Provider Active S tart: June 09, 2024 End: June 09, 2024 Team Status: Inactive Member Role/Relationship Status Dates Dr. Romain Black DO Referring Provider Active Start: June 14, 2024 End: June 14, 2024 Dr. Angelica Rodriguez MD Primary Care Provider Active Start: June 14, 2024 End: June 14, 2024 Dr. Angelica Rodriguez MD Attending Provider Active Start: June 14, 2024 End: June 14, 2024 Team Status: Inactive Member Role/Relationship Status Dates Dr. Angelica Rodriguez MD Primary Care Provider Active Start: June 14, 2024 End: June 14, 2024 Dr. Angelica Rodriguez MD Attending Provider Active Start: June 14, 2024 End: June 14, 2024 Dr. Angelica Rodriguez MD Referring Provider Active Start: June 14, 2024 End: June 14, 2024 Team Status: Inactive Member Role/Relationship Status Dates Dr. Angelica Rodriguez MD Primary Care Provider Active Start: June 15, 2024 End: June 15, 2024 Dr. Angelica Rodriguez MD Attending Provider Active Start: June 15, 2024 End: June 15, 2024 Team Status: Inactive Member Role/Relationship Status Dates Dr. Angelica Rodriguez MD Primary Care Provider Active Start: June 23, 2024 End: June 23, 2024 Dr. Latosha Renee MD Attending Provider Act enmanuel Start: June 23, 2024 End: June 23, 2024 Dr. Latosha Renee MD Referring Provider Act enmanuel Start: June 23, 2024 End: June 23, 2024 Team Status: Inactive Member Role/Relationship Status Dates Dr. Angelica Rodriguez MD Primary Care Provider Active Start: June 26, 2024 End: June 26, 2024 Dr. Angelica Rodriguez MD Referring Provider Active Start: June 26, 2024 End: June 26, 2024 Jaleesa Galindo NP-C Attending Provider Active Start: June 26, 2024 End: June 26, 2024 Team Status: Inactive Member Role/Relationship Status Dates Dr. Angelica Rodriguez MD Primary Care Provider Active Start: July 07, 2024 End: July 07, 2024 Jaleesa Galindo NP-C Attending Provider Active Start: July 07, 2024 End: July 07, 2024 Jaleesa Galindo NP-C Referring Provider Active Start: July 07, 2024 End: July 07, 2024 Team Status: Inactive Member Role/Relationship Status Dates Dr. Angelica Rodriguez MD Primary Care Provider Active Start: July 20, 2024 End: July 20, 2024 Dr. Latosha Renee MD Attending Provider Act enmanuel Start: July 20, 2024 End: July 20, 2024 Dr. Latosha Renee MD Referring Provider Act enmanuel Start: July 20, 2024 End: July 20, 2024 Team Status: Inactive Member Role/Relationship Status Dates Dr. Angelica Rodriguez MD Primary Care Provider Active Start: July 24, 2024 End: July 24, 2024 Dr. Angelica Rodriguez MD Referring Provider Active Start: July 24, 2024 End: July 24, 2024 Jaleesa Galindo NP-C Attending Provider Active Start: July 24, 2024 End: July 24, 2024 Team Status: Active Member Role/Relationship Status Dates Dr. Angelica Rodriguez MD Primary Care Provider Active Start: August 04, 2024 Dr. Brad Hou MD Attending Provider Active Start: August 04, 2024 Dr. Brad Hou MD Referring Provider Active Start: August 04, 2024 Team Status: Inactive Member Role/Relationship Status Dates Dr. Angelica Rodriguez MD Primary Care Provider Active Start: August 08, 2024 End: August 08, 2024 Jaleesa Galindo NP-C Attending Provider Active Start: August 08, 2024 End: August 08, 2024 Jaleesa Galindo NP-C Referring Provider Active Start: August 08, 2024 End: August 08, 2024 Team Status: Inactive Member Role/Relationship Status Dates Dr. Angelica Rodriguez MD Primary Care Provider Active Start: September [...] Active Member Role/Relationship Status Dates Dr. Angelica Rodriguez MD Primary Care Provider Active Start: September [...] September 05, 2024 Dr. Rajan Joy , Other Provider Active St art: September 05, [...] Active Member Role/Relationship Status Dates Dr. Angelica Rodriguez MD Primary Care Provider Active Start: September [...] Active Member Role/Relationship Status Dates Dr. Angelica Rodriguez MD Primary Care Provider Active Start: September [...] Active Start: September 05, 2024 Dr. Wild Santos DO Attending Provider Active Start: September 05, 2024 Team Status: Active Member Role/Relationship Status Dates Dr. Angelica Rodriguez MD Primary Care Provider Active Start: September 06, 2024 End: September 06, 2024 Dr. Peter Mohan MD Attending Provider Active S tart: September 06, 2024 End: September 06, 2024 Dr. Peter Mohan MD Referring Provider Active S tart: September 06, 2024 End: September 06, 2024 Team Status: Active Member Role/Relationship Status Dates Dr. Angelica Rodriguez MD Primary Care Provider Active Start: September [...] Active Member Role/Relationship Status Dates Dr. Angelica Rodriguez MD Primary Care Provider Active Start: September [...] Sta rt: September 06, 2024 Dr. Wild Santos DO Attending Provider Active Start: September 06, 2024 Team Status: Active Member Role/Relationship Status Dates Dr. Angelica Rodriguez MD Primary Care Provider Active Start: September [...] Active Member Role/Relationship Status Dates Dr. Angelica Rodriguez MD Primary Care Provider Active Start: September 07, 2024 Dr. Brittany Izquierdo MD Attending Provider Active Start: September 07, 2024 Team Status: Active Member Role/Relationship Status Dates Dr. Angelica Rodriguez MD Primary Care Provider Active Start: September [...] rt: September 07, 2024 Dr. Stanton Ortega , Other Provider Active Start: September 07, 2024 Dr. Romain Bazzi MD Other Provider Active Start: September 07, 2024 Team Status: Active Member Role/Relationship Status Dates Dr. Angelica Rodriguez MD Primary Care Provider Active Start: September 07, 2024 Dr. Janie Madsen , DO Emergency Provider Active S tart: September [...] Active Start: September 07, 2024 Dr. Wild Santos , Attending Provider Active Start: September 07, 2024 Team Status: Active Member Role/Relationship Status Dates Dr. Angelica Rodriguez MD Primary Care Provider Active Start: September [...] Active Member Role/Relationship Status Dates Dr. Angelica Rodriguez MD Primary Care Provider Active Start: September [...] Active Member Role/Relationship Status Dates Dr. Angelica Rodriguez MD Primary Care Provider Active Start: September [...] Active Member Role/Relationship Status Dates Dr. Angelica Rodriguez MD Primary Care Provider Active Start: September [...] Active Member Role/Relationship Status Dates Dr. Angelica Rodriguez MD Primary Care Provider Active Start: September [...] Active Start: September 11, 2024 Dr. Wild Santos DO Attending Provider Active Start: September 11, 2024 Pharmacy Technology Instructor Relationship Specialty Start Date End Date Romain Hurd V [address] [place] [phone] Internal Medicine 02/26/23 Va Dunaway MD [address] [place] [place], [place] [id number] Physician Radiation Oncology 04/08/23 Valdemar Gutierrez MD [address] [place] [address] Hematology/Oncology 04/22/23 Lyubov Little CNP [address] [place] [phone] Family Medicine 12/01/23 Latosha Renee MD [address] [place] [address] Endocrinology 12/01/23 Pharmacy Technology Instructor Relationship Specialty Start Date End Date Romain Hurd V [address] [place] [phone] Internal Medicine 02/26/23 Va Dunaway MD [address] [place] [address] Physician Radiation Oncology 04/08/23 Valdemar Gutierrez MD [address] [place] [address] Hematology/Oncology 04/22/23 Lyubov Little CNP [address] [place] [id number] Family Medicine 12/01/23 Latosha Renee MD [address] [place] [id number] Endocrinology 12/01/23 Team Status: Inactive Member Role/Relationship Status Dates Dr. Angelica Rodriguez MD Primary Care Provider Active Start: June 23, 2024 End: June 23, 2024 Dr. Latosha Renee MD Attending Provider Act enmanuel Start: June 23, 2024 End: June 23, 2024 Dr. Latosha Renee MD Referring Provider Act enmanuel Start: June 23, 2024 End: June 23, 2024 Team Status: Inactive Member Role/Relationship Status Dates Dr. Angelica Rodriguez MD Primary Care Provider Active Start: June 26, 2024 End: June 26, 2024 Dr. Angelica Rodriguez MD Referring Provider Active Start: June 26, 2024 End: June 26, 2024 JACEY Haddad Attending Provider Active Start: June 26, 2024 End: June 26, 2024 Team Status: Inactive Member Role/Relationship Status Dates Dr. Angelica Rodriguez MD Primary Care Provider Active Start: July 07, 2024 End: July 07, 2024 JACEY Haddad Attending Provider Active Start: July 07, 2024 End: July 07, 2024 JACEY Haddad Referring Provider Active Start: July 07, 2024 End: July 07, 2024 Team Status: Inactive Member Role/Relationship Status Dates Dr. Angelica Rodriguez MD Primary Care Provider Active Start: July 20, 2024 End: July 20, 2024 Dr. Latosha Renee MD Attending Provider Act enmanuel Start: July 20, 2024 End: July 20, 2024 Dr. Latosha Renee MD Referring Provider Act enmanuel Start: July 20, 2024 End: July 20, 2024 Team Status: Inactive Member Role/Relationship Status Dates Dr. Angelica Rodriguez MD Primary Care Provider Active Start: July 24, 2024 End: July 24, 2024 Dr. Angelica Rodriguez MD Referring Provider Active Start: July 24, 2024 End: July 24, 2024 JACEY Haddad Attending Provider Active Start: July 24, 2024 End: July 24, 2024 Team Status: Active Member Role/Relationship Status Dates Dr. Angelica Rodriguez MD Primary Care Provider Active Start: August 04, 2024 Dr. Brad Hou MD Attending Provider Active Start: August 04, 2024 Dr. Brad Hou MD Referring Provider Active Start: August 04, 2024 Team Status: Inactive Member Role/Relationship Status Dates Dr. Angelica Rodriguez MD Primary Care Provider Active Start: August 08, 2024 End: August 08, 2024 JACEY Haddad Attending Provider Active Start: August 08, 2024 End: August 08, 2024 JACEY Haddad Referring Provider Active Start: August 08, 2024 End: August 08, 2024 Team Status: Inactive Member Role/Relationship Status Dates Dr. Angelica Rodriguez MD Primary Care Provider Active Start: September [...] Active Member Role/Relationship Status Dates Dr. Angelica Rodriguez MD Primary Care Provider Active Start: September [...] September 05, 2024 Dr. Rajan Joy , Other Provider Active St art: September 05, [...] Active Member Role/Relationship Status Dates Dr. Angelica Rodriguez MD Primary Care Provider Active Start: September [...] September 05, 2024 Dr. Rajan Joy , Other Provider Active St art: September 05, [...] Active Member Role/Relationship Status Dates Dr. Angelica Rodriguez MD Primary Care Provider Active Start: September [...] Star t: September 05, 2024 Dr. Janny Rodirgez MD Other Provider Active Sta rt: September [...] Active Start: September 05, 2024 Dr. Wild Santos DO Attending Provider Active Start: September 05, 2024 Team Status: Active Member Role/Relationship Status Dates Dr. Angelica Rodriguez MD Primary Care Provider Active Start: September 06, 2024 End: September 06, 2024 Dr. Peter Mohan MD Attending Provider Active S tart: September 06, 2024 End: September 06, 2024 Dr. Peter Mohan MD Referring Provider Active S tart: September 06, 2024 End: September 06, 2024 Team Status: Active Member Role/Relationship Status Dates Dr. Angelica Rodriguez MD Primary Care Provider Active Start: September [...] Active Member Role/Relationship Status Dates Dr. Angelica Rodriguez MD Primary Care Provider Active Start: September [...] Sta rt: September 06, 2024 Dr. Wild Santos DO Attending Provider Active Start: September 06, 2024 Team Status: Active Member Role/Relationship Status Dates Dr. Angelica Rodriguez MD Primary Care Provider Active Start: September [...] Active Member Role/Relationship Status Dates Dr. Angelica Rodriguez MD Primary Care Provider Active Start: September 07, 2024 Dr. Brittany Izquierdo MD Attending Provider Active Start: September 07, 2024 Team Status: Active Member Role/Relationship Status Dates Dr. Angelica Rodriguez MD Primary Care Provider Active Start: September [...] Active Sta rt: September 07, 2024 Dr. Stnaton Ortega DO Other Provider Active Start: September 07, 2024 Dr. Romain Bazzi MD Other Provider Active Start: September 07, 2024 Team Status: Active Member Role/Relationship Status Dates Dr. Angelica Rodriguez MD Primary Care Provider Active Start: September [...] Active Start: September 07, 2024 Dr. Wild Santos DO Attending Provider Active Start: September 07, 2024 Team Status: Active Member Role/Relationship Status Dates Dr. Angelica Rodriguez MD Primary Care Provider Active Start: September [...] Active Member Role/Relationship Status Dates Dr. Angelica Rodriguez MD Primary Care Provider Active Start: September [...] Active Member Role/Relationship Status Dates Dr. Angelica Rodriguez MD Primary Care Provider Active Start: September [...] Active Member Role/Relationship Status Dates Dr. Angelica Rodriguez MD Primary Care Provider Active Start: September [...] Active Member Role/Relationship Status Dates Dr. Angelica Rodriguez MD Primary Care Provider Active Start: September [...] Active Start: September 11, 2024 Dr. Wild Santos DO Attending Provider Active Start: September 11, 2024 Team Status: Inactive Member Role/Relationship Status Dates Dr. Angelica Rodriguez MD Primary Care Provider Active Start: September [...] Active Member Role/Relationship Status Dates Dr. Angelica Rodriguez MD Primary Care Provider Active Start: September [...] Active Member Role/Relationship Status Dates Dr. Angelica Rodriguez MD Primary Care Provider Active Start: September 20, 2024 Dr. Naresh Cuellar MD Attending Provider Active S tart: September 20, 2024 Dr. Humberto Thayer MD Referring Provider Active Start: September 20, 2024 Team Status: Active Member Role/Relationship Status Dates Dr. Angelica Rodriguez MD Primary Care Provider Active Start: September [...] Active Member Role/Relationship Status Dates Dr. Angelica Rodriguez MD Primary Care Provider Active Start: September [...] Active Member Role/Relationship Status Dates Dr. Angelica Rodriguez MD Primary Care Provider Active Start: September [...] Active Member Role/Relationship Status Dates Dr. Angelica Rodriguez MD Primary Care Provider Active Start: September [...] Active Member Role/Relationship Status Dates Dr. Angelica Rodriguez MD Primary Care Provider Active Start: September 24, 2024 Dr. Иван Aranda DO Emergency Provider Activ e Start: September 24, 2024 Dr. Jose Zhang MD Admit Provider Active Sta rt: September 24, 2024 Dr. Jose Zhang MD Other Provider Active Sta rt: September 24, 2024 Dr. Humberto Thayer MD Other Provider Active Star t: September 24, 2024 Dr. Naresh Florez DO Attending Provider Active Start: September 24, 2024 Dr. Naresh Florez DO Other Provider Active Star t: September 24, 2024 Dr. Naresh Cuellar MD Other Provider Active Start : September 24, 2024 Team Status: Active Member Role/Relationship Status Dates Dr. Angelica Rodriguez MD Primary Care Provider Active Start: September [...] Inactive Member Role/Relationship Status Dates Dr. Angelica Rodriguez MD Primary Care Provider Active Start: October 05, 2024 End: October 05, 2024 Dr. Angelica Rodriguez MD Referring Provider Active Start: October 05, 2024 End: October 05, 2024 Nishi Garnett STAFF ASSISTANT-C Attending Provider Active Start: October 05, 2024 End: October 05, 2024 Team Status: Inactive Member Role/Relationship Status Dates Dr. Angelica Rodriguez MD Primary Care Provider Active Start: October 05, 2024 End: October 05, 2024 Nishi Garnett STAFF ASSISTANT-C Attending Provider Active Start: October 05, 2024 End: October 05, 2024 Nishi Garnett STAFF ASSISTANT-C Referring Provider Active Start: October 05, 2024 End: October 05, 2024 Team Status: Inactive Member Role/Relationship Status Dates Dr. Angelica Rodriguez MD Primary Care Provider Active Start: October 05, 2024 End: October 05, 2024 Aden Stahl MD Attending Provider Active Star t: October 05, 2024 End: October 05, 2024 Aden Stahl MD Emergency Provider Active Star t: October 05, 2024 End: October 05, 2024 Team Status: Active Member Role/Relationship Status Dates Dr. Angelica Rodriguez MD Primary Care Provider Active Start: October 19, 2024 Dr. Angelica Rodriguez MD Attending Provider Active Start: October 19, 2024 Dr. Angelica Rodriguez MD Referring Provider Active Start: October 19, 2024 Team Status: Inactive Member Role/Relationship Status Dates Dr. Angelica Rodriguez MD Primary Care Provider Active Start: October 19, 2024 End: October 19, 2024 Dr. Carroll Celeste MD Referring Provider Active S tart: October 19, 2024 End: October 19, 2024 Dr. Carroll Celeste MD Emergency Provider Active S tart: October 19, 2024 End: October 19, 2024 Team Status: Inactive Member Role/Relationship Status Dates Dr. Angelica Rodriguez MD Primary Care Provider Active Start: July 07, 2024 End: July 07, 2024 Jaleesa Galindo NP-C Attending Provider Active Start: July 07, 2024 End: July 07, 2024 Jaleesa Galindo NP-C Referring Provider Active Start: July 07, 2024 End: July 07, 2024 Team Status: Inactive Member Role/Relationship Status Dates Dr. Angelica Rodriguez MD Primary Care Provider Active Start: July 20, 2024 End: July 20, 2024 Dr. Latosha Renee MD Attending Provider Act enmanuel Start: July 20, 2024 End: July 20, 2024 Dr. Latosha Renee MD Referring Provider Act enmanuel Start: July 20, 2024 End: July 20, 2024 Team Status: Inactive Member Role/Relationship Status Dates Dr. Angelica Rodriguez MD Primary Care Provider Active Start: July 24, 2024 End: July 24, 2024 Dr. Angelica Rodriguez MD Referring Provider Active Start: July 24, 2024 End: July 24, 2024 Jaleesa Galindo NP-C Attending Provider Active Start: July 24, 2024 End: July 24, 2024 Team Status: Active Member Role/Relationship Status Dates Dr. Angelica Rodriguez MD Primary Care Provider Active Start: August 04, 2024 Dr. Brad Hou MD Attending Provider Active Start: August 04, 2024 Dr. Brad Hou MD Referring Provider Active Start: August 04, 2024 Team Status: Inactive Member Role/Relationship Status Dates Dr. Angelica Rodriguez MD Primary Care Provider Active Start: August 08, 2024 End: August 08, 2024 Jaleesa Galindo NP-C Attending Provider Active Start: August 08, 2024 End: August 08, 2024 Jaleesa Galindo NP-C Referring Provider Active Start: August 08, 2024 End: August 08, 2024 Team Status: Inactive Member Role/Relationship Status Dates Dr. Angelica Rodriguez MD Primary Care Provider Active Start: September [...] 2024 End: September 11, 2024 Dr. Romain Baziz MD Other Provider Active Start: September 04, 2024 End: September 11, 2024 Team Status: Active Member Role/Relationship Status Dates Dr. Angelica Rodriguez MD Primary Care Provider Active Start: September [...] September 05, 2024 Dr. Rajan Joy , Other Provider Active St art: September 05, [...] Active Member Role/Relationship Status Dates Dr. Angelica Rodriguez MD Primary Care Provider Active Start: September [...] Active Member Role/Relationship Status Dates Dr. Angelica Rodriguez MD Primary Care Provider Active Start: September [...] Sta rt: September 05, 2024 Dr. Joel eYh MD Other Provider Active St art: September [...] art: September 05, 2024 Dr. Ruddy Sotelo , Other Provider Active Start: September 05, 2024 Dr. Flex Jorgensen MD Other Provider Active Star t: September 05, 2024 Dr. Ankit Ross MD Other Provider Active Sta rt: September 05, 2024 Dr. Stanton Ortega DO Referring Provider Active Start: September 05, 2024 Dr. Stanton Ortega DO Other Provider Active Start: September 05, 2024 Dr. Wild Santos DO Attending Provider Active Start: September 05, 2024 Team Status: Active Member Role/Relationship Status Dates Dr. Angelica Rodriguez MD Primary Care Provider Active Start: September 06, 2024 End: September 06, 2024 Dr. Peter Mohan MD Attending Provider Active S tart: September 06, 2024 End: September 06, 2024 Dr. Peter Mohan MD Referring Provider Active S tart: September 06, 2024 End: September 06, 2024 Team Status: Active Member Role/Relationship Status Dates Dr. Angelica Rodriguez MD Primary Care Provider Active Start: September [...] Active Member Role/Relationship Status Dates Dr. Angelica Rodriguez MD Primary Care Provider Active Start: September [...] t: September 06, 2024 Dr. Rajan Joy , Other Provider Active St art: September 06, 2024 Dr. Kimberlyn Chambers MD Other Provider Active Start: September 06, 2024 Dr. Yara Luna MD Other Provider Active St art: September 06, 2024 Dr. Ruddy Sotelo , Other Provider Active Start: September 06, 2024 Dr. Flex Jorgensen MD Other Provider Active Star t: September 06, 2024 Dr. Ankit Ross MD Other Provider Active Sta rt: September 06, 2024 Dr. Wild Santos DO Attending Provider Active Start: September 06, 2024 Team Status: Active Member Role/Relationship Status Dates Dr. Angelica Rodriguez MD Primary Care Provider Active Start: September [...] Active Member Role/Relationship Status Dates Dr. Angelica Rodriguez MD Primary Care Provider Active Start: September 07, 2024 Dr. Brittany Izquierdo MD Attending Provider Active Start: September 07, 2024 Team Status: Active Member Role/Relationship Status Dates Dr. Angelica Rodriguez MD Primary Care Provider Active Start: September [...] Active Member Role/Relationship Status Dates Dr. Angelica Rodriguez MD Primary Care Provider Active Start: September [...] Active Start: September 07, 2024 Dr. Wild Santos DO Attending Provider Active Start: September 07, 2024 Team Status: Active Member Role/Relationship Status Dates Dr. Angelica Rodriguez MD Primary Care Provider Active Start: September [...] Active Member Role/Relationship Status Dates Dr. Angelica Rodriguez MD Primary Care Provider Active Start: September [...] Active Member Role/Relationship Status Dates Dr. Angelica Rodriguez MD Primary Care Provider Active Start: September [...] Active Member Role/Relationship Status Dates Dr. Angelica Rodriguez MD Primary Care Provider Active Start: September [...] Active Member Role/Relationship Status Dates Dr. Angelica Rodriguez MD Primary Care Provider Active Start: September [...] Active Start: September 11, 2024 Dr. Wild Santos DO Attending Provider Active Start: September 11, 2024 Team Status: Inactive Member Role/Relationship Status Dates Dr. Angelica Rodriguez MD Primary Care Provider Active Start: September [...] Active Member Role/Relationship Status Dates Dr. Angelica Rodriguez MD Primary Care Provider Active Start: September [...] Active Member Role/Relationship Status Dates Dr. Angelica Rodriguez MD Primary Care Provider Active Start: September 20, 2024 Dr. Naresh Cuellar MD Attending Provider Active S tart: September 20, 2024 Dr. Humberto Thayer MD Referring Provider Active Start: September 20, 2024 Team Status: Active Member Role/Relationship Status Dates Dr. Angelica Rodriguez MD Primary Care Provider Active Start: September [...] Active Member Role/Relationship Status Dates Dr. Angelica Rodriguez MD Primary Care Provider Active Start: September [...] Active Member Role/Relationship Status Dates Dr. Angelica Rodriguez MD Primary Care Provider Active Start: September [...] Active Member Role/Relationship Status Dates Dr. Angelica Rodriguez MD Primary Care Provider Active Start: September [...] Active Member Role/Relationship Status Dates Dr. Angelica Rodriguez MD Primary Care Provider Active Start: September 24, 2024 Dr. Иван Aranda DO Emergency Provider Activ e Start: September 24, 2024 Dr. Jose Zhang MD Admit Provider Active Sta rt: September 24, 2024 Dr. Jose Zhang MD Other Provider Active Sta rt: September 24, 2024 Dr. Humberto Thayer MD Other Provider Active Star t: September 24, 2024 Dr. Naresh Florez DO Attending Provider Active Start: September 24, 2024 Dr. Naresh Florez DO Other Provider Active Star t: September 24, 2024 Dr. Naresh Cuellar MD Other Provider Active Start : September 24, 2024 Team Status: Active Member Role/Relationship Status Dates Dr. Angelica Rodriguez MD Primary Care Provider Active Start: September 25, 2024 Dr. Иван Aranda , Emergency Provider Activ e Start: September 25, [...] Inactive Member Role/Relationship Status Dates Dr. Angelica Rodriguez MD Primary Care Provider Active Start: October 05, 2024 End: October 05, 2024 Dr. Angelica Rodriguez MD Referring Provider Active Start: October 05, 2024 End: October 05, 2024 Nishi Garnett NP-C Attending Provider Active Start: October 05, 2024 End: October 05, 2024 Team Status: Inactive Member Role/Relationship Status Dates Dr. Angelica Rodriguez MD Primary Care Provider Active Start: October 05, 2024 End: October 05, 2024 Nishi Garnett NP-C Attending Provider Active Start: October 05, 2024 End: October 05, 2024 Nishi Garnett NP-Clement Referring Provider Active Start: October 05, 2024 End: October 05, 2024 Team Status: Inactive Member Role/Relationship Status Dates Dr. Angelica Rodriguez MD Primary Care Provider Active Start: October 05, 2024 End: October 05, 2024 Aden Stahl MD Attending Provider Active Star t: October 05, 2024 End: October 05, 2024 Aden Stahl MD Emergency Provider Active Star t: October 05, 2024 End: October 05, 2024 Team Status: Active Member Role/Relationship Status Dates Dr. Angelica Rodriguez MD Primary Care Provider Active Start: October 19, 2024 Dr. Angelica Rodriguez MD Attending Provider Active Start: October 19, 2024 Dr. Angelica Rodriguez MD Referring Provider Active Start: October 19, 2024 Team Status: Inactive Member Role/Relationship Status Dates Dr. Angelica Rodriguez MD Primary Care Provider Active Start: October 19, 2024 End: October 19, 2024 Dr. Carroll Celeste MD Attending Provider Active S tart: October 19, 2024 End: October 19, 2024 Dr. Carroll Celeste MD Referring Provider Active S tart: October 19, 2024 End: October 19, 2024 Dr. Carroll Celeste MD Emergency Provider Active S tart: October 19, 2024 End: October 19, 2024 Team Status: Active Member Role/Relationship Status Dates Dr. Angelica Rodriguez MD Primary Care Provider Active Start: October 26, 2024 Dr. Maite Menjivar MD Emergency Provider Active S tart: October 26, 2024 Dr. Kahlil Steel DO Admit Provider Active Start: October 26, 2024 Dr. Kahlil Steel DO Attending Provider Active Start: October 26, 2024 Source Comments (unrecognize d section and content) In the event this informatio n is protected by the Federal Confidentiality of Alcohol and Drug Abuse Patient Records regulations: The Federal rules restrict any use of the information to criminally investigate or prosecute any alcohol or drug abuse patient.[facility] the event this information is protected by the Federal Confidentiality of Alcohol and Drug Abuse Patient Records regulations: The Federal rules restrict any use of the information to criminally investigate or prosecute any alcohol or drug abuse patient.[facility] [place] the event this information is protected by the Federal Confidentiality of Alcohol and Drug Abuse Patient Records regulations: The Federal rules restrict any use of the information to criminally investigate or prosecute any alcohol or drug abuse patient.[facility] [place] the event this information is protected by the Federal Confidentiality of Alcohol and Drug Abuse Patient Records regulations: The Federal rules restrict any use of the information to criminally investigate or prosecute any alcohol or drug abuse patient.[facility] [place] the event this information is protected by the Federal Confidentiality of Alcohol and Drug Abuse Patient Records regulations: The Federal rules restrict any use of the information to criminally investigate or prosecute any alcohol or drug abuse patient.[facility] [place] the event this information is protected by the Federal Confidentiality of Alcohol and Drug Abuse Patient Records regulations: The Federal rules restrict any use of the information to criminally investigate or prosecute any alcohol or drug abuse patient.[facility] [place]In the event this information is protected by the Federal Confidentiality of Alcohol and Drug Abuse Patient Records regulations: The Federal rules restrict any use of the information to criminally investigate or prosecute any alcohol or drug abuse patient.[facility] [place]In the event this information is protected by the Federal Confidentiality of Alcohol and Drug Abuse Patient Records regulations: The Federal rules restrict any use of the information to criminally investigate or prosecute any alcohol or drug abuse patient.[facility] [place]In the event this information is protected by the Federal Confidentiality of Alcohol and Drug Abuse Patient Records regulations: The Federal rules restrict any use of the information to criminally investigate or prosecute any alcohol or drug abuse patient.[facility] [place]In the event this information is protected by the Federal Confidentiality of Alcohol and Drug Abuse Patient Records regulations: The Federal rules restrict any use of the information to criminally investigate or prosecute any alcohol or drug abuse patient.[facility] [place]In the event this information is protected by the Federal Confidentiality of Alcohol and Drug Abuse Patient Records regulations: The Federal rules restrict any use of the information to criminally investigate or prosecute any alcohol or drug abuse patient.[facility] [place]In the event this information is protected by the Federal Confidentiality of Alcohol and Drug Abuse Patient Records regulations: The Federal rules restrict any use of the information to criminally investigate or prosecute any alcohol or drug abuse patient.[facility] [place]In the event this information is protected by the Federal Confidentiality of Alcohol and Drug Abuse Patient Records regulations: The Federal rules restrict any use of the information to criminally investigate or prosecute any alcohol or drug abuse patient.[facility] [place]In the event this information is protected by the Federal Confidentiality of Alcohol and Drug Abuse Patient Records regulations: The Federal rules restrict any use of the information to criminally investigate or prosecute any alcohol or drug abuse patient.[facility] [place]In the event this information is protected by the Federal Confidentiality of Alcohol and Drug Abuse Patient Records regulations: The Federal rules restrict any use of the information to criminally investigate or prosecute any alcohol or drug abuse patient.[facility] [place]In the event this information is protected by the Federal Confidentiality of Alcohol and Drug Abuse Patient Records regulations: The Federal rules restrict any use of the information to criminally investigate or prosecute any alcohol or drug abuse patient.[facility] [place]In the event this information is protected by the Federal Confidentiality of Alcohol and Drug Abuse Patient Records regulations: The Federal rules restrict any use of the information to criminally investigate or prosecute any alcohol or drug abuse patient.[facility] [place]In the event this information is protected by the Federal Confidentiality of Alcohol and Drug Abuse Patient Records regulations: The Federal rules restrict any use of the information to criminally investigate or prosecute any alcohol or drug abuse patient.[facility] [place]In the event this information is protected by the Federal Confidentiality of Alcohol and Drug Abuse Patient Records regulations: The Federal rules restrict any use of the information to criminally investigate or prosecute any alcohol or drug abuse patient.[facility] [place]In the event this information is protected by the Federal Confidentiality of Alcohol and Drug Abuse Patient Records regulations: The Federal rules restrict any use of the information to criminally investigate or prosecute any alcohol or drug abuse patient.[facility] [place]In the event this information is protected by the Federal Confidentiality of Alcohol and Drug Abuse Patient Records regulations: The Federal rules restrict any use of the information to criminally investigate or prosecute any alcohol or drug abuse patient.[facility] [place]In the event this information is protected by the Federal Confidentiality of Alcohol and Drug Abuse Patient Records regulations: The Federal rules restrict any use of the information to criminally investigate or prosecute any alcohol or drug abuse patient.[facility] [place]In the event this information is protected by the Federal Confidentiality of Alcohol and Drug Abuse Patient Records regulations: The Federal rules restrict any use of the information to criminally investigate or prosecute any alcohol or drug abuse patient.[facility] [place]In the event this information is protected by the Federal Confidentiality of Alcohol and Drug Abuse Patient Records regulations: The Federal rules restrict any use of the information to criminally investigate or prosecute any alcohol or drug abuse patient.[facility] [place]In the event this information is protected by the Federal Confidentiality of Alcohol and Drug Abuse Patient Records regulations: The Federal rules restrict any use of the information to criminally investigate or prosecute any alcohol or drug abuse patient.[facility] [place]In the event this information is protected by the Federal Confidentiality of Alcohol and Drug Abuse Patient Records regulations: The Federal rules restrict any use of the information to criminally investigate or prosecute any alcohol or drug abuse patient.[facility] [place]In the event this information is protected by the Federal Confidentiality of Alcohol and Drug Abuse Patient Records regulations: The Federal rules restrict any use of the information to criminally investigate or prosecute any alcohol or drug abuse patient.[facility] [place]In the event this information is protected by the Federal Confidentiality of Alcohol and Drug Abuse Patient Records regulations: The Federal rules restrict any use of the information to criminally investigate or prosecute any alcohol or drug abuse patient.[facility] [place]In the event this information is protected by the Federal Confidentiality of Alcohol and Drug Abuse Patient Records regulations: The Federal rules restrict any use of the information to criminally investigate or prosecute any alcohol or drug abuse patient.[facility] [place]In the event this information is protected by the Federal Confidentiality of Alcohol and Drug Abuse Patient Records regulations: The Federal rules restrict any use of the information to criminally investigate or prosecute any alcohol or drug abuse patient.[facility] [place]In the event this information is protected by the Federal Confidentiality of Alcohol and Drug Abuse Patient Records regulations: The Federal rules restrict any use of the information to criminally investigate or prosecute any alcohol or drug abuse patient.[facility] [place]In the event this information is protected by the Federal Confidentiality of Alcohol and Drug Abuse Patient Records regulations: The Federal rules restrict any use of the information to criminally investigate or prosecute any alcohol or drug abuse patient.[facility] [place]In the event this information is protected by the Federal Confidentiality of Alcohol and Drug Abuse Patient Records regulations: The Federal rules restrict any use of the information to criminally investigate or prosecute any alcohol or drug abuse patient.[facility] [place]In the event this information is protected by the Federal Confidentiality of Alcohol and Drug Abuse Patient Records regulations: The Federal rules restrict any use of the information to criminally investigate or prosecute any alcohol or drug abuse patient.[facility] [place]In the event this information is protected by the Federal Confidentiality of Alcohol and Drug Abuse Patient Records regulations: The Federal rules restrict any use of the information to criminally investigate or prosecute any alcohol or drug abuse patient.[facility] [place]In the event this information is protected by the Federal Confidentiality of Alcohol and Drug Abuse Patient Records regulations: The Federal rules restrict any use of the information to criminally investigate or prosecute any alcohol or drug abuse patient.[facility] [place]In the event this information is protected by the Federal Confidentiality of Alcohol and Drug Abuse Patient Records regulations: The Federal rules restrict any use of the information to criminally investigate or prosecute any alcohol or drug abuse patient.[facility] [place]In the event this information is protected by the Federal Confidentiality of Alcohol and Drug Abuse Patient Records regulations: The Federal rules restrict any use of the information to criminally investigate or prosecute any alcohol or drug abuse patient.[facility] the event this information is protected by the Federal Confidentiality of Alcohol and Drug Abuse Patient Records regulations: The Federal rules restrict any use of the information to criminally investigate or prosecute any alcohol or drug abuse patient.[facility]In the event this information is protected by the Federal Confidentiality of Alcohol and Drug Abuse Patient Records regulations: The Federal rules restrict any use of the information to criminally investigate or prosecute any alcohol or drug abuse patient.[facility]stownIn the event this information is protected by the Federal Confidentiality of Alcohol and Drug Abuse Patient Records regulations: The Federal rules restrict any use of the information to criminally investigate or prosecute any alcohol or drug abuse patient.[facility]In the event this information is protected by the Federal Confidentiality of Alcohol and Drug Abuse Patient Records regulations: The Federal rules restrict any use of the information to criminally investigate or prosecute any alcohol or drug abuse patient.[facility]stownIn the event this information is protected by the Federal Confidentiality of Alcohol and Drug Abuse Patient Records regulations: The Federal rules restrict any use of the information to criminally investigate or prosecute any alcohol or drug abuse patient.[facility]stownIn the event this information is protected by the Federal Confidentiality of Alcohol and Drug Abuse Patient Records regulations: The Federal rules restrict any use of the information to criminally investigate or prosecute any alcohol or drug abuse patient.[facility]stownIn the event this information is protected by the Federal Confidentiality of Alcohol and Drug Abuse Patient Records regulations: The Federal rules restrict any use of the information to criminally investigate or prosecute any alcohol or drug abuse patient.[facility]stownIn the event this information is protected by the Federal Confidentiality of Alcohol and Drug Abuse Patient Records regulations: The Federal rules restrict any use of the information to criminally investigate or prosecute any alcohol or drug abuse patient.[facility]stownIn the event this information is protected by the Federal Confidentiality of Alcohol and Drug Abuse Patient Records regulations: The Federal rules restrict any use of the information to criminally investigate or prosecute any alcohol or drug abuse patient.[facility]stownIn the event this information is protected by the Federal Confidentiality of Alcohol and Drug Abuse Patient Records regulations: The Federal rules restrict any use of the information to criminally investigate or prosecute any alcohol or drug abuse patient.[facility]stownIn the event this information is protected by the Federal Confidentiality of Alcohol and Drug Abuse Patient Records regulations: The Federal rules restrict any use of the information to criminally investigate or prosecute any alcohol or drug abuse patient.[facility]stownIn the event this information is protected by the Federal Confidentiality of Alcohol and Drug Abuse Patient Records regulations: The Federal rules restrict any use of the information to criminally investigate or prosecute any alcohol or drug abuse patient.[facility]stownIn the event this information is protected by the Federal Confidentiality of Alcohol and Drug Abuse Patient Records regulations: The Federal rules restrict any use of the information to criminally investigate or prosecute any alcohol or drug abuse patient.[facility]stownIn the event this information is protected by the Federal Confidentiality of Alcohol and Drug Abuse Patient Records regulations: The Federal rules restrict any use of the information to criminally investigate or prosecute any alcohol or drug abuse patient.[facility]stownIn the event this information is protected by the Federal Confidentiality of Alcohol and Drug Abuse Patient Records regulations: The Federal rules restrict any use of the information to criminally investigate or prosecute any alcohol or drug abuse patient.[facility]stownIn the event this information is protected by the Federal Confidentiality of Alcohol and Drug Abuse Patient Records regulations: The Federal rules restrict any use of the information to criminally investigate or prosecute any alcohol or drug abuse patient.[facility]stownIn the event this information is protected by the Federal Confidentiality of Alcohol and Drug Abuse Patient Records regulations: The Federal rules restrict any use of the information to criminally investigate or prosecute any alcohol or drug abuse patient.[facility]stownIn the event this information is protected by the Federal Confidentiality of Alcohol and Drug Abuse Patient Records regulations: The Federal rules restrict any use of the information to criminally investigate or prosecute any alcohol or drug abuse patient.[facility]stownIn the event this information is protected by the Federal Confidentiality of Alcohol and Drug Abuse Patient Records regulations: The Federal rules restrict any use of the information to criminally investigate or prosecute any alcohol or drug abuse patient.[facility]stownIn the event this information is protected by the Federal Confidentiality of Alcohol and Drug Abuse Patient Records regulations: The Federal rules restrict any use of the information to criminally investigate or prosecute any alcohol or drug abuse patient.[facility] Reason for Visit (unrecogniz ed section and content) Reason Comments Appointment Reason Comments Established Patient Reason Comments New Patient Specialty Diagnoses / Procedures Referred By Contac t Referred To Contact Oncology Diagnoses Squamous cell carcinoma of left lung (HCC) Procedures CONSULT TO ONCOLOGY OFFICE/OUTPATIENT NEW HIGH MDM 60 MINUTES Tay Montiel MD [address] [place] [address] Referral ID Status Reason Start Date Expiration Date V isits Requested Visits Authorized [id number] Closed PCP Requested Referral 04/07/2023 04/06/2024 1 1 Reason Comments Consult Specialty Diagnoses / Procedures Referred By Contac t Referred To Contact Radiation Oncology Diagnoses Squamous cell carcinoma of left lung (HCC) Procedures RAD/ONC CONSULT OFFICE/OUTPATIENT NEW HIGH MDM 60 MINUTES Tay Montiel MD [address] [place] [address] Referral ID Status Reason Start Date Expiration Date V isits Requested Visits Authorized [id number] Closed PCP Requested Referral 04/07/2023 04/06/2024 1 1 Reason Onset Date Comments Simulation Request Form 04/28/2023 Reason Comments Patient Education Specialty Diagnoses / Procedures Referred By Contac t Referred To Contact MR IMAGING Diagnoses Squamous cell carcinoma of left lung (HCC) Procedures MRI BRAIN WO/W IVCON MRI BRAIN BRAIN STEM W/O W/CONTRAST MATERIAL Tay Montiel MD [address] [place] [address] Mr Imaging [facility] Referral ID Status Reason Start Date Expiration Date V isits Requested Visits Authorized [id number] Closed Auto-Generate d Referral 05/07/2023 06/06/2023 1 1 Reason Comments Radiotherapy On-treatment Visit Reason Comments Recheck Reason Comments Established Patient Reason Comments Radiology CT Specialty Diagnoses / Procedures Referred By Contac t Referred To Contact CT IMAGING Diagnoses Malignant neoplasm of unspecified part of unspecified bronchus or lung (HCC) Procedures CT CHEST WO IVCON DIAGNOSTIC COMPUTED TOMOGRAPHY THORAX W/O Va Velázquez MD [address] [facility] [place] [address] Ct Imaging [facility] Referral ID Status Reason Start Date Expiration Date V isits Requested Visits Authorized [id number] Closed Auto-Generate d Referral 08/24/2023 09/23/2023 1 1 Reason Comments Recheck Specialty Diagnoses / Procedures Referred By Contac t Referred To Contact CT IMAGING Diagnoses Malignant neoplasm of unspecified part of unspecified bronchus or lung (HCC) Procedures CT CHEST W IVCON DIAGNOSTIC COMPUTED TOMOGRAPHY THORAX W/[place] [address] [place] [address] [place] [address] Referral ID Status Reason Start Date Expiration Date V isits Requested Visits Authorized [id number] Closed Auto-Generate d Referral 11/24/2023 08/14/2024 1 1 Reason Comments Appointment missed Specialty Diagnoses / Procedures Referred By Contac t Referred To Contact CT IMAGING Diagnoses Malignant neoplasm of unspecified part of unspecified bronchus or lung (HCC) Procedures CT CHEST WO IVCON DIAGNOSTIC COMPUTED TOMOGRAPHY THORAX W/[place] [address] [facility] [facility] [place] [address] [place] [address] Referral ID Status Reason Start Date Expiration Date V isits Requested Visits Authorized [id number] Closed Auto-Generate d Referral 02/18/2024 04/18/2024 1 [...] BE BASED ON THE PRIMARY CLINICAL RECORDS. [email or web address] provides no warranty or guarantee of the accuracy or completeness of information in this document.
[2024-10-27] VITALS (12 sets, daily range): BP systolic 90–129; BP diastolic 57–76; PULSE 82–103; RESP 18–32; TEMP 36.4–37.2; O2SAT 82–100
[2024-10-27] MEDS: 0.9% Saline Lock 10 ML Syringe IV ×2 (01:12→20:46)
[2024-10-27] MEDS: Budesonide Respules 0.5 MG/2 ML AMPUL.NEB. INHALATION ×2 (07:08→19:02)
[2024-10-27] MEDS: Glucerna Shake 120 ML LIQUID PO ×2 (08:33→11:36)
[2024-10-27] MEDS: Senna/Docusate Sodium 1 Tablet 2 TABLET PO (08:33)
[2024-10-27] MEDS: Metoprolol(XL)Succ 25 MG Tablet PO (08:36)
[2024-10-27] MEDS: Insulin Human 75/25 Kwickpen 8 UNIT SC (08:37)
[2024-10-27] MEDS: Lidocaine 5% Patch 1 PATCH TOPICAL (08:37)
--- NOTE | 2024-10-27 09:00 | CASEMGMT ---
Addendum entered by Maggie Zamarripa 10/27/24 16:35: SW received a message from hospice that son John just called in. First available assessment is tomorrow at 13:30. SW informed hospice that pt has declined and comfort measures initiated by hospitalist and advocated for a sooner time. Hospice reports that if they have a cancellation, they will come sooner. SAUL updated bedside nurse and hospitalist. SAUL updated care wildlife management professor. COSTA Shaw Addendum entered by Maggie Zamarripa 10/27/24 15:16: Social Work- Pt bedside notified SW that she has not had a return call by pt sons. SAUL called pt sons Colin and Michael in an attempt to verify of hospice consult had been arranged. SAUL left voice mails requesting a call back. SAUL remains available to follow. COSTA Shaw Addendum entered by Maggie Zamarripa 10/27/24 14:19: SAUL collaborated with hospitalist who reports that he does not feel it is an emergent situation in which SW needs to request police involvement to locate sons. SAUL remains available to follow. COSTA Shaw Addendum entered by Maggie Zamarripa 10/27/24 11:35: SAUL called hospice and spoke with Kelsey who reports that they have been unsuccessful in reaching son to schedule consult. SAUL remains available to follow. COSTA Shaw Original Note: Social Work- SW received notification that pt and family are seeking hospice referral. Hospitalist feels [facility] is appropriate. SAUL faxed referral to [facility] and followed up with a call. SAUL called son Michael and left a voicemail requesting a return call. SAUL called son John who did not have an identifying voicemail, so no message was left. SAUL remains available to follow. COSTA Shaw
--- NOTE | 2024-10-27 10:16 | PCM.PN.HOSP ---
Subjective Subjective No issues overnight, remains confused. Family did decide to proceed with hospice, currently awaiting evaluation for acceptance to [facility] Objective Data Objective Data Vital Signs: Vital Signs Temp Pulse Resp BP Pulse Ox O2 Del Method O2 Flow Rate 98.9 F 98 18 105/62 93 Nasal Cannula 3 10/27/24 08:51 10/27/24 08:51 10/27/24 08:52 10/27/24 08:51 10/27/24 08:51 10/27/24 08:52 10/27/24 08:52 Oxygen Flow Rate (L/min) 3 Oxygen Delivery Method Nasal Cannula Weight: 143 lb 4.807 oz Body Mass Index (BMI) 21.1 Intake & Output: Intake and Output for Last 24 Hours 10/26/24 10/27/24 10/28/24 03:59 03:59 03:59 Intake Total 300 / 300 250 / 250 Output Total 260 / 260 Balance 300 / 300 -10 / -10 Lab / Micro Data 10/26/24 17:00 10/26/24 17:00 Labs: Laboratory Results - last 24 hr 10/26/24 17:00: WBC 19.5 H, RBC 3.49 L, Hgb 9.1 L, Hct 30.2 L, MCV 86.5, MCH 26.1 L, MCHC 30.1 L, RDW Std Deviation 54.4 H, RDW Coeff of Jaquan 17.2 H, Plt Count 297, MPV 8.9, Immature Gran % (Auto) 1.000 H, Neut % (Auto) 85.0 H, Lymph % (Auto) 9.2 L, [place] % (Auto) 4.5, Eos % (Auto) 0.2, Baso % (Auto) 0.1, Absolute Neuts (auto) 16.6 H, Absolute Lymphs (auto) 1.79, Nucleated RBC % 0, Sodium 138, Potassium 3.5, Chloride 98, Carbon Dioxide 28.6, Anion Gap 11, BUN 15, Creatinine 1.05, Est GFR (MDRD) Non-Af 77, BUN/Creatinine Ratio 13.9, Glucose 136 H, Lactic Acid 1.4, Calcium 14.1 H*, Total Bilirubin 0.33 10/26/24 17:00: Total Bilirubin Cancelled, Direct Bilirubin 0.18 10/26/24 17:00: Direct Bilirubin Cancelled, AST 17 10/26/24 17:00: AST Cancelled, ALT 24 10/26/24 17:00: ALT Cancelled, Alkaline Phosphatase 118 10/26/24 17:00: Alkaline Phosphatase Cancelled, Troponin T High Sens 86 H* D, NT pro BNP II 1693 H 10/26/24 17:00: NT pro BNP II Cancelled, Total Protein 6.5 10/26/24 17:00: Total Protein Cancelled, Albumin 2.8 L 10/26/24 17:00: Albumin Cancelled, Globulin 3.7 10/26/24 17:00: Globulin Cancelled 10/26/24 19:04: Troponin T Hi Sens 2 Hr 82 H* 10/26/24 21:10: Troponin T Hi Sens 4Hr 84 H* 10/27/24 01:03: POC Glucose 123 H 10/27/24 06:23: POC Glucose 135 H ABG Data ABG results: ABG 10/26/24 17:43 Specimen Type FRANCY Sample Site Not entered VBG pH 7.48 H VBG pO2 60 H VBG HCO3 35 H VBG Total CO2 36 H VBG O2 Sat (Calc) 92 H VBG Base Excess 11 H POC Mix VBG pCO2 Pt Tmp 46.7 O2 Delivery Device Not entered Radiography Diagnostic Testing: Radiology Impression Chest CTA 10/26/24 17:08 IMPRESSION: 1. No large central filling defect to suggest pulmonary embolism. There is persistent encasement and narrowing of left main and segmental pulmonary arteries from large left upper lobe mass extending into the hilar region. 2. Interval increase in size of previously seen large left upper lobe mass extending into the left suprahilar region and laterally to the chest wall with erosion of multiple ribs as mentioned above. 3. Multiple bilateral pulmonary nodules as well as enlarged mediastinal and axillary lymph node consistent with underlying metastatic disease. 4. There is redemonstration of pleural-based nodularity along right posterolateral lung region at level of T6 and T7 level with large metastatic deposit accompanied with destructive changes and erosion of posterior element of midthoracic spine extending from T5-T7. There is epidural extension of this mass into right aspect of spinal cord. These findings are more prominent when compared to prior and are concerning for spinal cord compression. MRI spine is recommended for better characterization. 5. Large left adrenal mass measuring 3.3 cm concerning for metastatic disease. Red Alert: The critical information above was relayed directly by me by telephone to Maite Menjivar on 10/26/2024 at 7:38 pm with readback verification. Reading Location: [facility] Abdomen/Pelvis CT 10/26/24 17:13 IMPRESSION: Mildly increased size of an infrarenal abdominal aortic aneurysm. Stable bilateral common iliac artery aneurysms. Bilateral lower lobe metastatic disease. Stable left adrenal nodule. Reading Location: [facility] Chest X-Ray 10/26/24 18:25 IMPRESSION: 1. Left apical mass with prominent bilateral hilar region likely representing underlying lymphadenopathy. No definite interval change since prior study. 2. Bilateral small pleural effusions. Reading Location: [facility] Physical Exam Narrative General: Drowsy but alert, Oriented x1-2 HEENT: Atraumatic, PERRLA, EOMI, Normocephalic Oral: Dry mucosa Neck: Supple, No JVD Lungs: Diminished, Normal air movement, rhonchi, No wheeze, No rales Cardiovascular: Regular rate, Regular Rhythm, Normal S1, Normal S2, No murmurs Abdomen: Soft, Non Tender, Non-Distended, No Hepato-splenomegaly Extremities: No edema, Capillary Refill Less than 3 Seconds Skin: No rashes, No breakdown Musculoskeletal: No Tenderness to Palpation of Joints or Extremities Neurological: No focal neurological deficits, moves all extremities Psych/Mental Status: Normal Affect, Appropriate Assessment & Plan Assessment/Plan (1) Metastatic lung cancer (metastasis from lung to other site): QUALIFIERS: Laterality: unspecified laterality Qualified Code(s): C34.90 - Malignant neoplasm of unspecified part of unspecified bronchus or lung (2) Hypercalcemia: (3) Acute metabolic encephalopathy: PLAN: Plan 1. Acute metabolic encephalopathy with acute hypercalcemia in the setting of metastatic lung cancer with chronic pain ? Will continue supportive care, family has decided to proceed with hospice ? Will consult hospice this morning and discussed transfer to [facility] if appropriate ? Will continue with aggressive pain management 2. Essential HTN/HLD/CAD status post CABG/PAD ? Can resume his home blood pressure medications, he does have orthostatic hypotension as well so he is on midodrine and metoprolol for rate control ? Will monitor make adjustments as necessary ? Will hold the statin 3. DM2 ? Continue with insulin ? Accu-Cheks ACHS ? Will monitor and make adjustments as necessary 4. Anxiety/depression ? Continue with his home medications 5. GERD ? Stable ? Continue with PPI DVT: No prophylaxis ordered pending hospice evaluation and transfer Charges/Coding Visit Charges Inpatient E&M: 01384 Subs Hosp L2
--- NOTE | 2024-10-27 11:54 | CHAPLAIN ---
Type of Pastoral Visit _x__ Initial Visit ___ Follow-up Visit ___ On-call Visit ___ General Patient Visit ___ Spiritual Assessment ___ Family Conference ___ Bereavement ___ Rapid Response ___ Code Blue ___ Other (describe below) Pastoral Care Referral From _x__ Patient ___ Family ___ Nurse ___ Physician ___ Transport Company Manager ___ Environmental Journalist ___ Other (describe below) Sacrament/Intervention ___ Active listening ___ Anointing ___ Voodoo ___ Bereavement ___ Communion ___ Kennedi exploration ___ ___ Life review _x__ Prayer ___ Reconciliation ___ Sacrament of Sick _x__ Supportive presence ___ Wedding ___ Other (describe below) Pastoral Comments patient is uncovered of clothes except for depends and appears to be sleeping; pt opened his eyes and looked at this director of housing when his name was called; pt acknowledges director of housing and admits that he is not well and this is going to get me; this director of housing remembers patient from previous admissions and how he affirmed kennedi in God and welcomed prayer; pt is able to answer a few questions but has difficulty keeping eyes opened and focused on speech; this was brief visit but verbal affirmation and support given to patient along with prayer for him; left a calling card for family members to see also
[2024-10-27] MEDS: morphine (oral solution) 10MG/0.5ML Syringe 5 MG SL ×2 (15:32→20:30)
--- NOTE | 2024-10-27 16:01 | NURSING ---
This Rn has attempted to call son twice regarding medications and hospice care, has not answered or called back
[2024-10-27] MEDS: LORazepam 2 MG/ML Bottle 1 MG SL ×2 (17:14→20:43)
[2024-10-28] MEDS: morphine (oral solution) 10MG/0.5ML Syringe 5 MG SL (00:38)
[2024-10-28] MEDS: LORazepam 2 MG/ML Bottle 1 MG SL (00:38)
--- NOTE | 2024-10-28 05:19 | PCM.HOSP.N ---
Hospitalist Note I was contacted by third floor RN and informed patient as expected on hospice at 2:13 AM.
--- NOTE | 2024-10-28 08:48 | CASEMGMT ---
Social Work SW notified [facility] that pt has and consult for today can be cancelled. COSTA Mata
--- NOTE | 2024-10-28 14:49 | PCM.DEATH ---
Preliminary Cause of Preliminary Cause of Preliminary Cause of : Metastatic lung cancer Date of Admission: 10/26/24 Date of : 10/28/24 Principle Diagnosis Problem List: Active and Suspected Problems (Updated 10/28/24 @ 00:00 by Kaya Hernandez) On home oxygen therapy (Acute) 3L AT NIGHT WITH CPAP Acute metabolic encephalopathy (Acute) Hypercalcemia (Acute) Metastatic lung cancer (metastasis from lung to other site) (Acute) Hospital Course Mr. Farrell is a 69-year-old gentleman who presented to the hospital with metabolic encephalopathy and found to have acute hypercalcemia, after extensive discussions by the ER physician and the admitting hospitalist family decided to proceed with hospice care as his lung cancer was nonoperative and the chemoradiation did not appear to be achieving their goals. Mr. Farrell was never responsive to me personally and remained altered throughout his hospitalization. There [facility] because family was unresponsive the phone calls by nursing staff, case management, and hospice himself. By the time hospice was able to get in contact with family they could not meet them until the following day at 1:30 in the afternoon therefore we proceeded with hospice care here in the hospital. He was made comfortable and given both Roxanol and Ativan Intensol for comfort as well as a dose of Lasix. Mr. Farrell on 10/28/2024 at 0213 from metastatic lung cancer.
== END 2024-10-28 02:13 | disposition skilled nursing facility (03) | DRG 181 ==
LOC: ED 17:14 → MS3 23:43
PROVIDERS: Admitting Provider Internal Medicine; Emergency Provider Student in an Organized Health Care Education/Training Program; PCP Internal Medicine; Visit Provider Family Medicine
DX: C34.90 Malignant neoplasm of unspecified part of unspecified bronchus or lung (principal); C79.49 Secondary malignant neoplasm of other parts of nervous system; J96.11 Chronic respiratory failure with hypoxia; Z51.5 Encounter for palliative care; E11.51 Type 2 diabetes mellitus with diabetic peripheral angiopathy without gangrene; J44.9 Chronic obstructive pulmonary disease, unspecified; F32.A Depression, unspecified; E83.52 Hypercalcemia; E78.00 Pure hypercholesterolemia, unspecified; I25.10 Atherosclerotic heart disease of native coronary artery without angina pectoris; K21.9 Gastro-esophageal reflux disease without esophagitis; I95.1 Orthostatic hypotension; Z79.4 Long term (current) use of insulin; F41.9 Anxiety disorder, unspecified; Z99.81 Dependence on supplemental oxygen; G89.3 Neoplasm related pain (acute) (chronic); R07.9 Chest pain, unspecified; Z86.718 Personal history of other venous thrombosis and embolism; Z87.891 Personal history of nicotine dependence; Z79.84 Long term (current) use of oral hypoglycemic drugs; Z79.51 Long term (current) use of inhaled steroids; Z95.1 Presence of aortocoronary bypass graft; Z99.89 Dependence on other enabling machines and devices; N40.0 Benign prostatic hyperplasia without lower urinary tract symptoms
CPT/HCPCS: 71045; 71275; 74177; 80048; 80076; 82803; 82962; 83605; 83880; 84484; 85025; 87040; 93005; 94640; 97802; 99285; Q9967; A4216; J1938